=== PATIENT | female | born 1965 | race Caucasian/White ===

== ENCOUNTER 2019-09-05 14:14 | Emergency (ER) | payer MEDICARE, MEDICAID, SELFPAY ==
[2019-09-05 14:16] VITALS: BP 153/90; PULSE 99; RESP 18; TEMP 36; O2SAT 100
--- NOTE | 2019-09-05 16:10 | ED.GENADULT ---
HPI - General Adult General Chief complaint: Wound/Laceration Stated complaint: lac to left thumb Time Seen by Provider: 09/05/19 15:21 Source: patient Mode of arrival: ambulatory Limitations: no limitations History of Present Illness HPI narrative: Patient is a 54-year-old female who presents to emergency department for evaluation of puncture wound along the radial aspect of the proximal left thumb that occurred just prior to arrival using an X-Acto knife patient notes mild aching pain worse with activity and movement patient is unsure as to tetanus status patient is able to perform range of motion but with pain Related Data Home Medications Medication Instructions Recorded Confirmed duloxetine 60 mg capsule,delayed 60 mg PO DAILY 06/13/19 release fluticasone propionate 50 2 spray NASAL DAILY 06/13/19 mcg/actuation nasal spray,suspension ropinirole 4 mg tablet 4 mg PO DAILY tablet 06/13/19 tapentadol 50 mg tablet 50 mg PO ONCE PRN tablet 06/13/19 tramadol 50 mg tablet 50 mg PO Q4H PRN 06/13/19 rosuvastatin mg 07/15/19 aspirin [Aspir-81] 81 mg PO DAILY 09/05/19 ivabradine [Corlanor] 5 mg PO BID 09/05/19 tapentadol [Nucynta] 50 mg PO Q6H PRN 09/05/19 Allergies Allergy/AdvReac Type Severity Reaction Status Date / Time Cephalosporins Allergy Mild RASH Verified 08/18/19 09:00 clarithromycin Allergy Mild RASH Verified 08/18/19 09:00 imipramine Allergy Mild RASH Verified 08/18/19 09:00 meclizine Allergy Mild RASH Verified 08/18/19 09:00 oxycodone Allergy Mild SEVERE Verified 08/18/19 09:00 VOMITING Penicillins Allergy Mild HIVES Verified 08/18/19 09:00 codeine Allergy Unknown SEVERE Verified 08/18/19 09:00 VOMITING hydrocodone Allergy Unknown SEVERE Verified 08/18/19 09:00 VOMITING methylprednisolone Allergy Unknown DOSE PACK Verified 08/18/19 09:00 CAUSES THROAT SWELLING CEFUROXIME AXETIL Allergy Mild HIVES Uncoded 08/18/19 09:00 HYDROCODONE BIT Allergy Mild NAUSEA AND Uncoded 08/18/19 09:00 VOMITING OXYCODONE HCL Allergy Mild VOMITING Uncoded 08/18/19 09:00 PROPOXYPHENE NAPSYLATE Allergy Mild HIVES Uncoded 08/18/19 09:00 PROPRANOLOL HCL Allergy Mild HIVES Uncoded 08/18/19 09:00 DIPHENHYDRAMINE HCL Allergy Unknown LETHARGIC Uncoded 08/18/19 09:00 PROPOXYPHENE HCL Allergy Unknown HIVES Uncoded 08/18/19 09:00 Review of Systems Review of Systems: Narrative: CONSTITUTIONAL: Denies fever, chills, or sweats. SKIN: Positive for puncture wound MUSCULOSKELETAL: Positive for left thumb pain NEUROLOGIC: Denies numbness. [facility] Past Medical History Medical History (Updated 09/05/19 @ 16:14 by Ej Neri PA-C) Anemia, unspecified Bradycardia Surgical History Surgical History (Updated 09/05/19 @ 16:12 by Ej Neri PA-C) History of permanent cardiac pacemaker placement Social History Social History Smoking status: Never smoker Alcohol intake: never Gender identity (if verbalized by the patient): Female Exam Narrative: Exam Narrative: GENERAL: Well-appearing, well-nourished, and in no acute distress. HEAD: Normocephalic, atraumatic. EYES: PERRLA and EOMI. ENT: Nares clear, no rhinorrhea or epistaxis. Mucous membranes moist. EXTREMITIES: Patient with tenderness to palpation of the proximal aspect of the left thumb able to perform flexion and extension SKIN: Warm, dry, no rash. Puncture wound measuring less than 1/2 cm at the base of the left thumb no erythema NEURO: No focal deficits. Alert and oriented x3. Cranial nerves II through XII grossly intact. Neurovascularly intact PSYCH: Normal mood and affect. Course Course Emergency Course: Patient in the room in no distress aware of case findings treatment plan and diagnosis agreeing to follow-up as directed or to return if symptoms worsen or concerns Vital Signs Vital signs: Vital Signs Temperature 96.8 F L 09/05/19 14:16 Pulse Rate 99
[2019-09-05 16:40] VITALS: RESP 16
== END 2019-09-05 16:40 | disposition home or self-care (01) ==
PROVIDERS: Emergency Provider Family Medicine; PCP Family Medicine
DX: S61.032A Puncture wound without foreign body of left thumb without damage to nail, initial encounter (principal); Z79.82 Long term (current) use of aspirin; R00.1 Bradycardia, unspecified; Z95.0 Presence of cardiac pacemaker; Z86.2 Personal history of diseases of the blood and blood-forming organs and certain disorders involving the immune mechanism; W27.8XXA Contact with other nonpowered hand tool, initial encounter
CPT/HCPCS: 99282

== ENCOUNTER 2019-09-23 09:10 | Emergency (ER) | payer MEDICARE, MEDICAID, SELFPAY ==
--- NOTE | ~2019-09-23 | CT_ITS ---
EXAMINATION: CT brain wo con DATE: 09/23/2019 10:16 INDICATION: Head injury. Neck pain. TECHNIQUE: Computed tomography (CT) of the head was performed without intravenous contrast. The mA wa s adjusted according to patient size. Iterative reconstruction technique was employed. The dose-lengt h product was 605.33 mGy-cm. COMPARISON: Head CT 05/05/2012 FINDINGS: There are scattered areas of low attenuation in the cerebral white matter, which is within normal limits for the patient's age. There are chronic calcifications in left cerebellum, likely dyst rophic. There is no intracranial hemorrhage, acute infarction, or abnormal intracranial mass lesion. The ventricles are normal in size. The mastoid air cells are normal. The paranasal sinuses are clear. The orbits are normal. IMPRESSION: 1. Normal aging brain. Reviewed, dictated and finalized at location A. [employer] IMPRESSION: 1. Normal aging brain.
--- NOTE | ~2019-09-23 | CT_ITS ---
EXAMINATION: CT cervical spine wo con DATE: 09/23/2019 10:16 INDICATION: Head injury. Neck pain. TECHNIQUE: Computed tomography (CT) of the cervical spine was performed without intravenous contrast. Automated exposure control and iterative reconstruction technique were employed. The dose-length pro duct was 285.41 mGy-cm. COMPARISON: None FINDINGS: There is mild kyphosis of cervical spine. There is 3 degrees dextrocurvature of cervical sp ine. There is 2 mm retrolisthesis of C5 on C6. Vertebral body heights are normal. There is moderately decreased disc height at C3-C4, C5-C6, and C6-C7 and mildly decreased disc height at C4-C5. The foll owing disc levels are specifically discussed: C2-C3: There is mild bilateral uncovertebral joint osteoarthritis. There is mild bilateral facet join t osteoarthritis. There is no neural foraminal stenosis. There is no central canal stenosis. C3-C4: There is mild right and severe left uncovertebral joint osteoarthritis. There is mild left fac et joint osteoarthritis. There is mild right and moderate left neural foraminal stenosis. There is mi ld central canal stenosis. C4-C5: There is mild bilateral uncovertebral joint osteoarthritis. There is mild bilateral facet join t osteoarthritis. There is mild bilateral neural foraminal stenosis. There is mild central canal sten osis. C5-C6: There is severe bilateral uncovertebral joint osteoarthritis. There is mild bilateral facet himanshu int osteoarthritis. There is moderate bilateral neural foraminal stenosis. There is mild central shanthi l stenosis. C6-C7: There is severe bilateral uncovertebral joint osteoarthritis. There is mild right facet joint osteoarthritis. There is moderate bilateral neural foraminal stenosis. There is mild central canal st enosis. C7-T1: There is mild bilateral uncovertebral joint osteoarthritis. There is severe right and mild lef t facet joint osteoarthritis. There is no neural foraminal stenosis. There is no central canal stenos is. IMPRESSION: 1. No fracture. 2. Moderate cervical spondylosis. Reviewed, dictated and finalized at location A. D [employer]
[2019-09-23 09:29] VITALS: BP 141/95; PULSE 79; RESP 16; TEMP 36.7; O2SAT 98
--- NOTE | 2019-09-23 10:02 | ED.HEATRA ---
HPI - Head Injury General Chief complaint: Head Injury Stated complaint: Hit head last nigh Time Seen by Provider: 09/23/19 09:50 Source: patient Mode of arrival: ambulatory Limitations: no limitations History of Present Illness HPI Narrative: This is a 54-year-old female that presents the emergency department for head injury yesterday afternoon. Reports she was getting something out of her fridge and stood up really quickly and hit the back of her head on the freezer door. Reports since she has had a headache, nausea, and blurry vision. Also reports neck pain. Reports she was supposed to see her PCP today, but was told to come here to get checked out instead. Denies vomiting, numbness or weakness. Related Data Home Medications Medication Instructions Recorded Confirmed duloxetine 60 mg capsule,delayed 60 mg PO DAILY 06/13/19 release rosuvastatin 10 mg PO DAILY 07/15/19 aspirin [Aspir-81] 81 mg PO DAILY 09/05/19 ivabradine [Corlanor] 5 mg PO BID 09/05/19 tapentadol [Nucynta] 50 mg PO Q6H PRN 09/05/19 ropinirole 0.5 mg PO BID 09/23/19 Allergies Allergy/AdvReac Type Severity Reaction Status Date / Time Cephalosporins Allergy Mild RASH Verified 09/23/19 09:15 clarithromycin Allergy Mild RASH Verified 09/23/19 09:15 imipramine Allergy Mild RASH Verified 09/23/19 09:15 meclizine Allergy Mild RASH Verified 09/23/19 09:15 Penicillins Allergy Mild HIVES Verified 09/23/19 09:15 codeine Allergy Unknown SEVERE Verified 09/23/19 09:15 VOMITING methylprednisolone Allergy Unknown DOSE PACK Verified 09/23/19 09:15 CAUSES THROAT SWELLING CEFUROXIME AXETIL Allergy Mild HIVES Uncoded 09/23/19 09:15 HYDROCODONE BIT Allergy Mild NAUSEA AND Uncoded 09/23/19 09:15 VOMITING OXYCODONE HCL Allergy Mild VOMITING Uncoded 09/23/19 09:15 PROPOXYPHENE NAPSYLATE Allergy Mild HIVES Uncoded 09/23/19 09:15 PROPRANOLOL HCL Allergy Mild HIVES Uncoded 09/23/19 09:15 DIPHENHYDRAMINE HCL Allergy Unknown LETHARGIC Uncoded 09/23/19 09:15 PROPOXYPHENE HCL Allergy Unknown HIVES Uncoded 09/23/19 09:15 Review of Systems Review of Systems: Narrative: CONSTITUTIONAL: Denies fever EYES: Reports visual changes GASTROINTESTINAL: Denies vomiting MUSCULOSKELETAL: Reports joint pain, and myalgia. NEUROLOGIC: Reports headache. Denies numbness, or weakness. All systems reviewed & are unremarkable except as noted in HPI and below PMFSH Past Medical History Medical History (Updated 09/23/19 @ 10:38 by Jasmyn Persaud PA-C) Anemia, unspecified Bradycardia Essential (primary) hypertension Mixed hyperlipidemia Paroxysmal atrial fibrillation RSD (reflex sympathetic dystrophy) Surgical History Surgical History (Updated 09/05/19 @ 16:12 by Ej Neri PA-C) History of permanent cardiac pacemaker placement Social History Social History Smoking status: Never smoker Alcohol intake: never Gender identity (if verbalized by the patient): Female Exam Narrative: Exam Narrative: GENERAL: Well-appearing, well-nourished, and in no acute distress. HEAD: Normocephalic, atraumatic. EYES: PERRLA and EOMI. ENT: Nares clear, no rhinorrhea or epistaxis. Mucous membranes moist. Oropharynx without tonsillar hypertrophy exudate or other lesions. Bilateral TMs pearly mora non-bulging NECK: Supple. No adenopathy or masses. Tender palpation of midline cervical spine CHEST: Clear to auscultation. No respiratory distress. No wheezes rales or rhonchi HEART: Regular rate and rhythm. No murmur heard. Normal peripheral pulses. EXTREMITIES: Normal range of motion. No edema. SKIN: Warm, dry, no rash. NEURO: No focal deficits. Alert and oriented x3. Cranial nerves II through XII grossly intact. Normal finger-nose. Normal [id number] PSYCH: Normal mood and affect Course Vital Signs Vital signs: Vital Signs Temperature 98.1 F 09/23/19 09:29 Pulse Rate 79 09/23/19 09:29 Respiratory
[2019-09-23] MEDS: ACETAMINOPHEN 500 MG TABLET 1000 MG PO (10:06)
[2019-09-23 10:40] VITALS: BP 136/75; PULSE 72; RESP 16; O2SAT 99
== END 2019-09-23 10:40 | disposition home or self-care (01) ==
PROVIDERS: Emergency Provider Emergency Medicine; PCP Family Medicine
DX: S09.90XA Unspecified injury of head, initial encounter (principal); M54.2 Cervicalgia; I10 Essential (primary) hypertension; E78.2 Mixed hyperlipidemia; I48.0 Paroxysmal atrial fibrillation; G90.50 Complex regional pain syndrome I, unspecified; Z95.0 Presence of cardiac pacemaker; M47.812 Spondylosis without myelopathy or radiculopathy, cervical region; Z86.2 Personal history of diseases of the blood and blood-forming organs and certain disorders involving the immune mechanism; W22.8XXA Striking against or struck by other objects, initial encounter; Z79.82 Long term (current) use of aspirin
CPT/HCPCS: 70450; 72125; 99284; A9270

== ENCOUNTER 2020-01-19 13:42 | Outpatient (CLI) | payer MEDICARE, MEDICAID, SELFPAY ==
--- NOTE | ~2020-01-19 | XR_ITS ---
EXAMINATION: XR foot LT min 3V, XR toe 2nd LT min 2V DATE: 01/19/2020 14:30 INDICATION: Displaced fracture of the left second toe TECHNIQUE: 1. Dorsoplantar, two oblique and lateral views of the affected foot were obtained. 2. Dorsoplantar, lateral and oblique views of the left second toe were obtained. COMPARISON: None. FINDINGS: There is a sagittally oriented intra-articular fracture at the head of the left second proximal phala nx which extends from the central portion of the articular surface to the medial side of the distal d iaphysis. There is slight depression/proximal migration of the fragment resulting in a 1 mm step-off at the articular cortex. No other fractures identified. Otherwise normal alignment in the left foot. Mild polyarticular osteoarthritis at the first and second metatarsophalangeal joints as well as sever al of the tarsal metatarsal and interphalangeal joints. Small Achilles calcaneal spur. IMPRESSION: 1. Minimally displaced intra-articular fracture at the distal head of the left second proximal phalan x. Reviewed, dictated and finalized at location A. IMPRESSION: 1. Minimally displaced intra-articular fracture at the distal head of the left second proximal phalanx.
== END 2020-01-19 13:43 | disposition home or self-care (01) ==
PROVIDERS: PCP Family Medicine; Visit Provider Family Medicine
DX: S92.50 Unspecified fracture of lesser toe(s) (principal)
CPT/HCPCS: 73630; 73660

== ENCOUNTER 2020-02-06 08:22 | Outpatient (CLI) | payer MEDICARE, MEDICAID, SELFPAY ==
[2020-02-06 08:49] LABS: Hematocrit 38.5 % (37.0-47.0); Hemoglobin 13.6 g/dL (12.0-15.0); Mean Corpuscular HGB Conc 35.3 g/dl (32-36); Mean Corpuscular Hemoglobin 33.8 pg (26-34); Mean Corpuscular Volume 95.8 fl (80-100); Mean Platelet Volume 9.1 fl (7.4-10.4); Platelet Count Result 216 k/mm3 (150-375); Red Blood Count 4.02 M/mm3 (4.2-5.4); Red Cell Distribution Width 12.2 % (11.5-14.5); White Blood Count 4.7 K/mm3 (4.5-10.0)
[2020-02-06 09:01] LABS: Blood Urea Nitrogen 15 mg/dL (7-17); Calcium 9.8 mg/dL (8.4-10.2); Carbon Dioxide 30 mmol/L (22-30); Chloride 103 mmol/L (98-107); Estimated Glomerular Filt Rate > 60; Glucose 80 mg/dL (65-105); Potassium 3.9 mmol/L (3.4-5.0); Sodium 140 mmol/L (137-145)
[2020-02-06 09:40] LABS: Vitamin D 25 Hydroxy 27.1 ng/mL
== END 2020-02-06 08:23 | disposition home or self-care (01) ==
PROVIDERS: PCP Family Medicine; Visit Provider Nurse Practitioner Family
DX: D64.9 Anemia, unspecified (principal); R53.83 Other fatigue; E55.9 Vitamin D deficiency, unspecified
CPT/HCPCS: 36415; 80048; 82306; 82607; 84443; 85027

== ENCOUNTER 2020-04-02 21:07 | Observation (INO) | payer MEDICARE, MEDICAID, SELFPAY ==
--- NOTE | ~2020-04-02 | US_ITS ---
US right upper quadrant INDICATION: Chest pain PROCEDURE: Realtime right upper abdominal ultrasound. COMPARISON: No prior studies for comparison. FINDINGS: The pancreas is normal without focal mass or pancreatic ductal dilation. Liver echotexture is normal without focal mass or intrahepatic biliary dilatation. There is normal directional flow i n the portal vein. The gallbladder is normal without stones, gallbladder wall thickening or pericholecystic fluid. Comm on bile duct measures 4 mm. No sonographic Tinoco's sign. IMPRESSION: 1: Normal limited abdominal ultrasound. Reviewed, dictated and finalized at location B.
--- NOTE | ~2020-04-02 | XR_ITS ---
EXAMINATION: XR chest 2V DATE: 04/02/2020 22:03 INDICATION: Chest pain. TECHNIQUE: Frontal and lateral views of the chest were obtained. COMPARISON: Chest 2 views 07/05/2019 FINDINGS: The chest demonstrates clear lungs without pneumonia, pleural effusion, or pneumothorax. Th e heart size is normal. There is a left chest wall pacer with leads in the right atrium and right chica tricle. Electrodes overlie thoracic spine. There are changes of posterior fusion procedure in lumbar spine. There is a filter in the inferior vena cava. IMPRESSION: 1. No acute cardiopulmonary disease. Reviewed, dictated and finalized at location A.
[2020-04-02 21:07] VITALS: BP 131/99; PULSE 92; RESP 18; TEMP 37
--- NOTE | 2020-04-02 21:28 | ECG_ITS ---
Measurements Intervals [place] Rate: 93 P: 36 VA: 184 QRS: -77 QRSD: 141 T: 79 QT: 406 QTc: 507 Interpretive Statements ATRIAL SENSE- ELECTRONIC VENTRICULAR PACEMAKER BASELINE ARTIFACT- I, II, AVR NO FURTHER INTERPRETATION IS POSSIBLE ATYPICAL ECG Electronically Signed On 04-03-2020 7:00:02 CDT by Rangel Moe D.O.
[2020-04-02 21:48] LABS: Basophils Percent Auto 0.5 % (0.2-1.2); Eosinophils Absolute Auto 0.1 K/mm3 (0-0.3); Eosinophils Percent Auto 1.7 % (0-4.4); Hematocrit 34.5 % (37.0-47.0); Hemoglobin 12.4 g/dL (12.0-15.0); Immature Granulocyte Absolute 0.01 K/mm3 (0.00-0.031); Immature Granulocyte Percent A 0.2 % (0-0.5); Lymphocytes Absolute Auto 1.69 K/mm3 (0.9-3.2); Lymphocytes Percent Auto 41.6 % (18.3-44.2); Mean Corpuscular HGB Conc 35.9 g/dl (32-36); Mean Corpuscular Hemoglobin 34.2 pg (26-34); Monocytes Absolute Auto 0.3 K/mm3 (0.1-0.6); Monocytes Percent Auto 7.4 % (2.6-8.5); Neutrophils Percent Auto 48.6 % (45.5-73.1); Platelet Count Result 177 k/mm3 (150-375); Red Blood Count 3.63 M/mm3 (4.2-5.4); Red Cell Distribution Width 12.1 % (11.5-14.5); White Blood Count 4.1 K/mm3 (4.5-10.0)
--- NOTE | 2020-04-02 21:50 | ED.GENADULT ---
HPI - General Adult General Chief complaint: Chest Pain Stated complaint: cp Time Seen by Provider: 04/02/20 21:33 Source: patient History of Present Illness HPI narrative: Patient is a 54 y/o female complaining of chest pain starting this morning. She describes her pain as a pressure and it's located in midsternal area with some radiation to under left breast. She rates her pain as 8/10. She states that she was riding a bike when it initially occureed. She has no shortness of breath, nausea, vomiting or cough. She was given Nitro by EMS. She states that Nitro helped some with her chest pain, but also gave her a headache. Related Data Home Medications Medication Instructions Recorded Confirmed Corlanor 5 mg PO BID 04/02/20 04/02/20 Nucynta 50 mg PO Q6H 04/02/20 04/03/20 aspirin 81 mg PO DAILY 04/03/20 04/03/20 azelastine 2 spray NASAL BID 04/03/20 04/03/20 cetirizine [Zyrtec] 10 mg PO DAILY 04/03/20 04/03/20 diclofenac sodium [Voltaren] 4 g TOPICAL QID PRN 04/03/20 04/03/20 meloxicam 7.5 mg PO DAILY 04/03/20 04/03/20 ropinirole 0.5 mg PO TID 04/03/20 04/03/20 Allergies Allergy/AdvReac Type Severity Reaction Status Date / Time Cephalosporins Allergy Mild RASH Verified 03/29/20 13:03 clarithromycin Allergy Mild RASH Verified 03/29/20 13:03 imipramine Allergy Mild RASH Verified 03/29/20 13:03 meclizine Allergy Mild RASH Verified 03/29/20 13:03 Penicillins Allergy Mild HIVES Verified 03/29/20 13:03 codeine Allergy Unknown SEVERE Verified 03/29/20 13:03 VOMITING methylprednisolone Allergy Unknown DOSE PACK Verified 03/29/20 13:03 CAUSES THROAT SWELLING cefuroxime [From Ceftin] Allergy Hives Verified 04/03/20 01:38 hydromorphone [From Dilaudid] Allergy Hives Verified 04/03/20 01:39 oxycodone [From Percocet] Allergy Hives Verified 04/03/20 01:40 prochlorperazine Allergy Swelling Verified 04/03/20 01:38 [From Compazine] of Lip/Tongue/Throat propoxyphene [From Darvon] Allergy Hives Verified 04/03/20 01:39 propranolol [From Inderal LA] Allergy Rash Verified 04/03/20 01:39 acetaminophen AdvReac Hives Verified 04/03/20 01:39 [From Darvocet-N] diphenhydramine AdvReac Vomiting Verified 04/03/20 01:40 [From Benadryl] hydrocodone [From Vicodin] AdvReac Vomiting Verified 04/03/20 01:41 CEFUROXIME AXETIL Allergy Mild HIVES Uncoded 03/29/20 13:03 HYDROCODONE BIT Allergy Mild NAUSEA AND Uncoded 03/29/20 13:03 VOMITING OXYCODONE HCL Allergy Mild VOMITING Uncoded 03/29/20 13:03 PROPOXYPHENE NAPSYLATE Allergy Mild HIVES Uncoded 03/29/20 13:03 PROPRANOLOL HCL Allergy Mild HIVES Uncoded 03/29/20 13:03 DIPHENHYDRAMINE HCL Allergy Unknown LETHARGIC Uncoded 03/29/20 13:03 PROPOXYPHENE HCL Allergy Unknown HIVES Uncoded 03/29/20 13:03 Review of Systems Constitutional: Constitutional: Denies chills, Denies fever(s), Denies headache(s) and Denies weakness Eyes: Eyes: Denies blurry vision ENT: Denies headache(s) and Denies neck pain Cardiovascular: Cardiovascular: Reports chest pain and Denies dyspnea Respiratory: Respiratory: Denies cough and Denies dyspnea Gastrointestinal: Gastrointestinal: Denies abdominal pain, Denies diarrhea, Denies nausea and Denies vomiting Genitourinary: Genitourinary: Denies hematuria and Denies dysuria Musculoskeletal: Musculoskeletal: Denies back pain and Denies neck pain Neurologic: Denies headache(s) and Denies weakness PMFSH Past Medical History Medical History (Updated 04/03/20 @ 12:42 by Nelida Lorenzana MD) Anemia, unspecified Atopic dermatitis Bradycardia Dizziness Essential (primary) hypertension Fracture of second toe, left, closed Lipid disorder Mixed hyperlipidemia Paroxysmal atrial fibrillation Restless leg syndrome RSD (reflex sympathetic dystrophy) Surgical History Surgical History (Updated 04/03/20 @ 01:20 by Naren Monique MD) History of arthroscopic knee surgery History of back surgery History of permanent cardiac pacemaker placemen
[2020-04-02 21:58] LABS: Prothrombin Time 12.9 Seconds (11.1-14.7)
[2020-04-02 21:59] LABS: Partial Thromboplastin Time 38.3 SECONDS (22.3-36.8)
[2020-04-02 22:03] LABS: Anion Gap 6 mmol/L (8-16); Blood Urea Nitrogen 21 mg/dL (7-17); Calcium 9.7 mg/dL (8.4-10.2); Carbon Dioxide 26 mmol/L (22-30); Chloride 107 mmol/L (98-107); Estimated CRCL calculation 63 ml/min; Estimated Glomerular Filt Rate > 60; Glucose 105 mg/dL (65-105); Potassium 3.7 mmol/L (3.4-5.0); Sodium 139 mmol/L (137-145)
[2020-04-02 22:14] LABS: Troponin I < 0.012 ng/mL (0.000-0.034)
[2020-04-02 22:59] VITALS: BP 132/78; PULSE 82; RESP 20; O2SAT 99
[2020-04-02 23:55] VITALS: BP 148/82; PULSE 77; RESP 16; O2SAT 99
[2020-04-03] VITALS (8 sets, daily range): BP systolic 101–165; BP diastolic 67–94; PULSE 70–82; RESP 14–20; TEMP 36.1–36.6; O2SAT 97–100; BMI 28.0
[2020-04-03 00:57] LABS: Troponin I < 0.012 ng/mL (0.000-0.034)
--- NOTE | 2020-04-03 01:13 | ECG_ITS ---
Measurements Intervals [place] Rate: 72 P: 17 PA: 180 QRS: -76 QRSD: 167 T: 70 QT: 480 QTc: 528 Interpretive Statements ATRIAL SENSE- ELECTRONIC VENTRICULAR PACEMAKER NO FURTHER INTERPRETATION IS POSSIBLE ATYPICAL ECG Electronically Signed On 04-03-2020 7:01:16 CDT by Rangel Moe D.O.
--- NOTE | 2020-04-03 01:15 | PM.IMHP ---
H&P: HPI History of Present Illness Date/Time: 04/03/20 01:15 Chief complaint: chest pain Narrative: This is a pleasant 54-year-old female with known past medical history of RSD, SVT status post ablation who presented to the hospital [facility] with a history of severe midsternal chest pain that started yesterday morning while she was riding her bike. The patient described her chest pain as crushing and occurred while she was riding her bike yesterday morning. Her chest pain seemed to radiate underneath her left breast. Her pain improved with rest. Associated symptoms included mild shortness of breath. When the patient got home she started to feel somewhat better and decided to lay down and try to sleep. Throughout the day she continued to have ongoing chest pain that seemed to slowly worsen. She finally ended up calling EMS. She was treated with nitroglycerin which did improve her chest pain. The patient is known to have recently been diagnosed with diverticulitis by her primary care doctor approximately 3 days ago. She is on antibiotics for diverticulitis. On my encounter with the patient [facility] she is complaining as well of mild right upper quadrant discomfort. Patient denies any nausea or vomiting, fevers, chills, dysuria, lower extremity swelling, or rectal bleeding. She is normally seen at [facility] by her silver cleaner. ER provider attempted to transfer her to [facility] but they did not have a bed available [facility]. The patient has no previous history of coronary artery disease and denies that she has ever had any type of myocardial infarction. Cardiology, Dr. Alejandre was consulted by ER provider. Review of Systems Review of Systems: All systems reviewed & are unremarkable except as noted in HPI and below PMFSH Past Medical History Medical History (Updated 04/03/20 @ 05:10 by Naren Monique MD) Anemia, unspecified Atopic dermatitis Bradycardia Dizziness Essential (primary) hypertension Fracture of second toe, left, closed Lipid disorder Mixed hyperlipidemia Paroxysmal atrial fibrillation Restless leg syndrome RSD (reflex sympathetic dystrophy) Surgical History Surgical History (Updated 04/03/20 @ 01:20 by Naren Monique MD) History of arthroscopic knee surgery History of back surgery History of permanent cardiac pacemaker placement Family History Family History Grandparent Family history of blood dyscrasia Family history of Alzheimer's disease Family history of malignant neoplasm of cervix Mother Family history of Alzheimer's disease Father Family history of lung cancer Other Diabetes mellitus Family history of allergic disorder Family history of kidney disease Family history of malignant neoplasm of thyroid Social History Social History Smoking status: Never smoker Second hand tobacco smoke exposure: No Alcohol intake: never Substance use: never Substance use type: does not use Gender identity (if verbalized by the patient): Female Spiritual care concerns: No Meds Home Medications and Allergies Home Medications Medication Instructions Recorded Confirmed Type cyclobenzaprine 10 mg tablet 10 mg PO BID #60 tablet 11/24/19 04/03/20 Rx rosuvastatin 20 mg tablet 20 mg PO DAILY #90 tablet 03/09/20 04/03/20 Rx promethazine 25 mg rectal 25 mg RECTAL Q6H PRN #12 each 03/19/20 04/03/20 Rx suppository duloxetine [Cymbalta] 60 mg PO DAILY 04/02/20 04/02/20 History ivabradine [Corlanor] 5 mg PO BID 04/02/20 04/02/20 History tapentadol [Nucynta] 50 mg PO Q6H 04/02/20 04/03/20 History aspirin 81 mg PO DAILY 04/03/20 04/03/20 History azelastine 2 spray NASAL BID 04/03/20 04/03/20 History cetirizine [Zyrtec] 10 mg PO DAILY 04/03/20 04/03/20 History diclofenac sodium [Voltaren] 4 g TOPICAL QID PRN 04/03/20 04/03/20 History meloxicam 7.5 mg PO DAILY
--- NOTE | 2020-04-03 01:26 | ADMGEN ---
This patient, Naye Hart, was admitted to IMU Room 204-01. Patient/family oriented to hospital policies and general routines including ID bracelet, bed and alarms, visiting hours, pain management, procedures, bathroom and other care routines, personal items, smoking policy, room service/diet, and visiting hours. Valuables list has been completed. Information on how to activate the Rapid Response Team has been discussed. Patient/Family are encouraged to report perceived risks to care and to ask questions if they do not understand what they are told or what they should do.
[2020-04-03 01:52] LABS: Magnesium 2.3 mg/dL (1.6-2.3)
[2020-04-03 01:54] LABS: Alanine Aminotransferase 17 U/L (4-35); Alkaline Phosphatase 76 U/L (38-126); Aspartate Amino Transferase 31 U/L (14-36); Bilirubin Indirect 0.3 mg/dL (0-1.1); Bilirubin,Total 0.2 mg/dL (0.2-1.3); Lipase 154 U/L (23-300)
[2020-04-03] MEDS: ONDANSETRON INJ 4 MG/2 ML VIAL IV PUSH (02:01)
[2020-04-03 04:19] LABS: Basophils Percent Auto 0.8 % (0.2-1.2); Eosinophils Absolute Auto 0.1 K/mm3 (0-0.3); Eosinophils Percent Auto 1.8 % (0-4.4); Hematocrit 33.2 % (37.0-47.0); Hemoglobin 11.7 g/dL (12.0-15.0); Lymphocytes Absolute Auto 1.78 K/mm3 (0.9-3.2); Mean Corpuscular HGB Conc 35.2 g/dl (32-36); Mean Corpuscular Volume 96.5 fl (80-100); Mean Platelet Volume 8.9 fl (7.4-10.4); Monocytes Absolute Auto 0.3 K/mm3 (0.1-0.6); Neutrophils Absolute Auto 1.7 K/mm3 (1.3-6.7); Neutrophils Percent Auto 43.4 % (45.5-73.1); Platelet Count Result 156 k/mm3 (150-375); Red Blood Count 3.44 M/mm3 (4.2-5.4); Red Cell Distribution Width 12.2 % (11.5-14.5); White Blood Count 3.9 K/mm3 (4.5-10.0)
[2020-04-03 04:30] LABS: Anion Gap 4 mmol/L (8-16); Blood Urea Nitrogen 21 mg/dL (7-17); Carbon Dioxide 29 mmol/L (22-30); Chloride 107 mmol/L (98-107); Estimated CRCL calculation 81 ml/min; Estimated Glomerular Filt Rate > 60; Glucose 99 mg/dL (65-105); Sodium 140 mmol/L (137-145)
[2020-04-03 04:42] LABS: Troponin I < 0.012 ng/mL (0.000-0.034)
--- NOTE | 2020-04-03 08:42 | PM.CNCAR ---
Assessment and Plan Assessment and plan (1) Chest pain: Qualifiers: Chest pain type: unspecified Qualified Code(s): R07.9 - Chest pain, unspecified Code(s): R07.9 - Chest pain, unspecified Status: Acute Assessment and Plan: Although exertional but it appears she has mostly epigastric and abdominal pain Her EKG is based hence can't assess for ischemia on that but her trop has been negative X3 She had stress test about 2 years ago with her primary stock unloader which was negative per patient report I will check 2D echo to rule out regional wall motion but otherwise I would recommend abdominal imaging to rule out other non cardiac etiology of her pain (2) SVT (supraventricular tachycardia): Code(s): I47.1 - Supraventricular tachycardia Status: Acute Assessment and Plan: s/p AV madai ablation and permanent pacemaker Will get Pacemaker interrogation ([employer]) History of Present Illness History of Present Illness Consult date/time: 04/03/20 08:42 54 y/o female with long standing history of SVT, paroxysmal A fib, inappropriate sinus tachycardia who failed medical treatment and eventually underwent AV madai ablation earlier this year with permanent pacemaker insertion prior to that. She has no history of CAD neither risk factors of that with no HTN, DM or tobacco abuse. She was previously on Metoprolol and Coumadin both were stopped. her only medications now is ASA and ivabradine that is also being weaned off. She presents with lower mid chest and epigastric pain that radiates under left breast. She reports palpitations which she has been feeling for a month. She was riding a bike yesterday when she felt the pain. She make it home and tried to relax but pain would not go away so she called 911. She received nitro without relief till the 3rd nitro with some improvement in the pain. She also has been reporting upper right quadrant pain and nausea for which she was placed on abx by her PCP 3 days ago for presumed diverticulitis however she had no abdominal imaging. She describes the pain as being punched in the chest. She has been having nausea for sometime. EKG showed V paced rhythm Trop negative X3. Labs otherwise unremarkable Reason For Visit: chest pain Review of Systems Review of Systems: All systems reviewed & are unremarkable except as noted in HPI and below Constitutional: Constitutional: Denies fatigue and Denies headache(s) Eyes: Eyes: Denies blurry vision ENT: Reports Normal hearing present and Denies headache(s) Cardiovascular: Cardiovascular: Denies chest pain, Denies diaphoresis, Denies pedal edema, Denies leg edema, Denies lightheadedness, Denies palpitations and Denies dyspnea Respiratory: Respiratory: Denies cough and Denies dyspnea Gastrointestinal: Gastrointestinal: Denies abdominal pain Musculoskeletal: Musculoskeletal: Denies back pain Neurologic: Reports Normal hearing present and Denies headache(s) Psychiatric: Psychiatric: Denies anxiety Endocrine: Endocrine: Denies fatigue and Denies palpitations [facility] Past Medical History Medical History (Updated 04/03/20 @ 05:10 by Naren Monique MD) Anemia, unspecified Atopic dermatitis Bradycardia Dizziness Essential (primary) hypertension Fracture of second toe, left, closed Lipid disorder Mixed hyperlipidemia Paroxysmal atrial fibrillation Restless leg syndrome RSD (reflex sympathetic dystrophy) Surgical History Surgical History (Updated 04/03/20 @ 01:20 by Naren Monique MD) History of arthroscopic knee surgery History of back surgery History of permanent cardiac pacemaker placement Family History Family History Grandparent Family history of blood dyscrasia Family history of Alzheimer's disease Family history of malignant neoplasm of cervix Mother Family history of Alzheimer's disease Father Family history of lung cancer Other
--- NOTE | 2020-04-03 09:16 | ECHO_ITS ---
Patient Info Name: Naye Hart Age: 54 years : 1965 Gender: Female Ht: 69 in Wt: 189 lbs BSA: 2.06 m2 HR: 79 bpm BP: 131 / 82 mmHg Technical Quality: Good Exam Date: 04/03/2020 9:50 AM Exam Location: [facility] Pulmonary Patient Status: Inpatient Admit Date: 04/03/2020 Staff Ordering Physician: Yonathan Faith MD Digital Analytics Manager: You Tinoco, JOSE, RT Attending Provider: Naren Monique MD Exam Type: CA echo doppler color flow Study Info Complete two-dimensional, color flow and Doppler transthoracic echocardiogram is performed. Summary 1. Complete two-dimensional, color flow and Doppler transthoracic echocardiogram is performed. 2. Left ventricular systolic function is normal, estimated at 55-60%. 3. Right ventricular chamber dimension is normal. 4. Pacemaker wire noted. 5. Left atrial chamber dimension is normal. 6. Right atrial chamber dimension is normal. 7. There is no aortic valve stenosis. 8. There is mild mitral valve regurgitation. 9. There is no tricuspid valve regurgitation. 10. Unable to assess pulmonary artery systolic pressure due to poor TR signal. 11. There is no pericardial effusion. Left Ventricle Left ventricular chamber dimension is normal. Left ventricular systolic function is normal, estimated at 55-60%. There is no increased left ventricular wall thickness. The left ventricular diastolic function is normal. Right Ventricle Right ventricular chamber dimension is normal. Right ventricular systolic function is normal. Pacemaker wire noted. Left Atria Left atrial chamber dimension is normal. Right Atria Right atrial chamber dimension is normal. Aortic Valve The aortic valve is trileaflet. There is no aortic valve sclerosis. There is no aortic valve stenosis. There is no aortic valve regurgitation. Pulmonic Valve The pulmonic valve is normal. There is no pulmonic valve stenosis. There is no pulmonic regurgitation. Mitral Valve The mitral valve has normal leaflets. There is no mitral valve stenosis. There is mild mitral valve regurgitation. Tricuspid Valve The tricuspid valve leaflets are normal. There is no tricuspid valve regurgitation. Unable to assess pulmonary artery systolic pressure due to poor TR signal. Pericardium/Pleural The pericardium appears normal. There is no pericardial effusion. Inferior Vena Cava Normal inferior vena cava with <50% collapse upon inspiration. Aorta The aortic root size at the sinus of Valsalva is normal. The prox ascending aorta size is normal. Left Ventricular Outflow Tract Name Value Normal LVOT 2D LVOT Diameter 2.1 cm LVOT Doppler LVOT Peak Velocity 86 cm/s LVOT Peak Gradient 3 mmHg LVOT Mean Gradient 2 mmHg LVOT VTI 16 cm LVOT VTI/AV VTI Ratio 0.7 LVOT Stroke Volume 56 ml LVOT CO 4.3 l/min LVOT CI 2.1 l/min/m2 Mitral Valve
[2020-04-03] MEDS: ROSUVASTATIN 10 MG TABLET 20 MG PO (09:18)
[2020-04-03] MEDS: LORATADINE 10 MG TABLET PO (09:18)
[2020-04-03] MEDS: rOPINIRole HCL 0.5 MG TABLET PO (09:18)
[2020-04-03] MEDS: ASPIRIN 81 MG ENTERIC TABLET PO (09:19)
[2020-04-03] MEDS: AZELASTINE HCL NASAL 0.1% 137 MCG/SPR 30 ML BTL 2 SPRAY NASAL (09:19)
[2020-04-03] MEDS: CYCLOBENZAPRINE HCL 10 MG TABLET PO (09:19)
[2020-04-03] MEDS: DULoxetine HCL 60 MG CAPSULE.DR PO (09:19)
--- NOTE | 2020-04-03 11:32 | PM.DS ---
DS: Admitting Diagnosis Admitting Diagnosis Admitting Diagnosis: chest pain DS: Discharge Diagnosis Discharge Diagnosis (1) Chest pain: Qualifiers: Chest pain type: unspecified Qualified Code(s): R07.9 - Chest pain, unspecified Code(s): R07.9 - Chest pain, unspecified Status: Acute Assessment and Plan: rule out acute coronary syndrome. Admit for observation to IMU, telemetry, trend troponin, check EKG now. check lipase and liver enzymes which have not been done yet to rule out possible gallbladder disease and or pancreatitis. nitroglycerin for any acute chest pain. Cardiology has been consulted by ER provider. (2) Diverticulitis: Code(s): K57.92 - Diverticulitis of intestine, part unspecified, without perforation or abscess without bleeding Status: Acute Assessment and Plan: continue home antibiotic therapy to complete course. (3) RUQ abdominal pain: Code(s): R10.11 - Right upper quadrant pain Status: Acute Assessment and Plan: Diverticulitis vs. Gallbladder disease? Check RUQ abd U/S in am. Check LFTs now. (4) Restless leg syndrome: Code(s): G25.81 - Restless legs syndrome Status: Chronic Assessment and Plan: continue ropinirole (5) Lipid disorder: Code(s): E78.9 - Disorder of lipoprotein metabolism, unspecified Status: Chronic Assessment and Plan: continue Crestor. (6) RSD (reflex sympathetic dystrophy): Code(s): G90.50 - Complex regional pain syndrome I, unspecified Status: Chronic Assessment and Plan: Continue home meds. (7) Diastolic dysfunction: Code(s): I51.89 - Other ill-defined heart diseases Status: Chronic Assessment and Plan: compensated. Monitor fluid status. Continue home CHF medications DS: Summary Hospital Course Reason for hospitalization: Chief complaint: chest pain Narrative: This is a pleasant 54-year-old female with known past medical history of RSD, SVT status post ablation who presented to the hospital [facility] with a history of severe midsternal chest pain that started yesterday morning while she was riding her bike. The patient described her chest pain as crushing and occurred while she was riding her bike yesterday morning. Her chest pain seemed to radiate underneath her left breast. Her pain improved with rest. Associated symptoms included mild shortness of breath. When the patient got home she started to feel somewhat better and decided to lay down and try to sleep. Throughout the day she continued to have ongoing chest pain that seemed to slowly worsen. She finally ended up calling EMS. She was treated with nitroglycerin which did improve her chest pain. The patient is known to have recently been diagnosed with diverticulitis by her primary care doctor approximately 3 days ago. She is on antibiotics for diverticulitis. On my encounter with the patient [facility] she is complaining as well of mild right upper quadrant discomfort. Patient denies any nausea or vomiting, fevers, chills, dysuria, lower extremity swelling, or rectal bleeding. 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 ER provider attempted to transfer her to [facility] but they did not have a bed available [facility]. The patient has no previous history of coronary artery disease and denies that she has ever had any type of myocardial infarction. Cardiology, Dr. Alejandre was consulted by ER provider. Hospital Course: patient is 3 sets of cardiac enzymes are negative there were no acute changes on EKG, patient's cardiac echo essentially normal as well as right upper quadrant ultrasound, patient's symptoms have resolved patient is clinically stable, patient is seen by director of early childhood education will have a stress test as outpatient will going discharge the patient today Status at Discharge Functional status at discharge: independent ambulation Ov
== END 2020-04-03 12:37 | disposition home or self-care (01) ==
LOC: ANHED 21:51 → ANHIMU 04-03 00:23
PROVIDERS: Emergency Medicine; Admitting Provider Family Medicine; Emergency Provider Emergency Medicine; PCP Family Medicine; Visit Provider Family Medicine
DX: R07.2 Precordial pain (principal); I48.0 Paroxysmal atrial fibrillation; I47.1 Supraventricular tachycardia; K57.92 Diverticulitis of intestine, part unspecified, without perforation or abscess without bleeding; Z95.0 Presence of cardiac pacemaker; R00.1 Bradycardia, unspecified; I10 Essential (primary) hypertension; E78.2 Mixed hyperlipidemia; Z79.01 Long term (current) use of anticoagulants; G90.50 Complex regional pain syndrome I, unspecified; G25.81 Restless legs syndrome
CPT/HCPCS: 36415; 71046; 76705; 80048; 82247; 83690; 83735; 84075; 84450; 84460; 84484; 85025; 85610; 85730; 93005; 93306; 96374; 99285; A9270; G0378; J2405

== ENCOUNTER 2020-06-11 09:16 | Emergency (ER) | payer MEDICARE, MEDICAID, SELFPAY ==
--- NOTE | ~2020-06-11 | XR_ITS ---
XR toe 1st RT min 2V 06/11/2020 10:06 Indication: Possible foreign body first toe Procedure: 2 views right first toe Comparison: No prior studies for comparison. Findings: No radiopaque foreign bodies identified. No fracture or traumatic malalignment. No signific ant joint space narrowing. No significant soft tissue abnormality. Impression: 1: No radiopaque foreign bodies identified. Reviewed, dictated and finalized at location A. ICAL PROCESS ENGINEER Impression: 1: No radiopaque foreign bodies identified.
[2020-06-11 09:40] VITALS: BP 118/78; PULSE 78; RESP 16; TEMP 36.7; O2SAT 99
--- NOTE | 2020-06-11 09:44 | ED.GENADULT ---
HPI - General Adult General Chief complaint: Extremity Injury, Lower Stated complaint: right 1st digit toe swelling/pain Time Seen by Provider: 06/11/20 09:44 Source: patient Mode of arrival: ambulatory Limitations: no limitations History of Present Illness HPI narrative: 54-year-old female patient presents to the [facility] with complaints of a splinter to the right great toe. Patient states that she dropped a toothpick yesterday and states that she stepped on it and that it went through the soft into the great toe. Patient states that she did pull it out but thinks that a small portion of the toothpick is still inside the toe. Patient denies any history of diabetes. Related Data Home Medications Medication Instructions Recorded Confirmed Corlanor 5 mg PO BID 04/02/20 06/11/20 aspirin 81 mg PO DAILY 04/03/20 06/11/20 azelastine 2 spray NASAL BID 04/03/20 06/11/20 cetirizine [Zyrtec] 10 mg PO DAILY 04/03/20 06/11/20 metoprolol tartrate 25 mg tablet 12.5 mg PO BID tablet 05/24/20 06/11/20 Allergies Allergy/AdvReac Type Severity Reaction Status Date / Time Cephalosporins Allergy Mild RASH Verified 06/11/20 10:00 clarithromycin Allergy Mild RASH Verified 06/11/20 10:00 imipramine Allergy Mild RASH Verified 06/11/20 10:00 meclizine Allergy Mild RASH Verified 06/11/20 10:00 Penicillins Allergy Mild HIVES Verified 06/11/20 10:00 codeine Allergy Unknown SEVERE Verified 06/11/20 10:00 VOMITING methylprednisolone Allergy Unknown DOSE PACK Verified 06/11/20 10:00 CAUSES THROAT SWELLING cefuroxime [From Ceftin] Allergy Hives Verified 06/11/20 10:00 hydromorphone [From Dilaudid] Allergy Hives Verified 06/11/20 10:00 oxycodone [From Percocet] Allergy Hives Verified 06/11/20 10:00 prochlorperazine Allergy Swelling Verified 06/11/20 10:00 [From Compazine] of Lip/Tongue/Throat propoxyphene [From Darvon] Allergy Hives Verified 06/11/20 10:00 propranolol [From Inderal LA] Allergy Rash Verified 06/11/20 10:00 acetaminophen AdvReac Hives Verified 06/11/20 10:00 [From Darvocet-N] diphenhydramine AdvReac Vomiting Verified 06/11/20 10:00 [From Benadryl] hydrocodone [From Vicodin] AdvReac Vomiting Verified 06/11/20 10:00 CEFUROXIME AXETIL Allergy Mild HIVES Uncoded 06/11/20 10:00 HYDROCODONE BIT Allergy Mild NAUSEA AND Uncoded 06/11/20 10:00 VOMITING OXYCODONE HCL Allergy Mild VOMITING Uncoded 06/11/20 10:00 PROPOXYPHENE NAPSYLATE Allergy Mild HIVES Uncoded 06/11/20 10:00 PROPRANOLOL HCL Allergy Mild HIVES Uncoded 06/11/20 10:00 DIPHENHYDRAMINE HCL Allergy Unknown LETHARGIC Uncoded 06/11/20 10:00 PROPOXYPHENE HCL Allergy Unknown HIVES Uncoded 06/11/20 10:00 Review of Systems Review of Systems: Narrative: CONSTITUTIONAL: Denies fever, chills, or sweats. EYES: Denies visual changes, redness, or discharge. ENT: Denies rhinorrhea, congestion, sore throat, or otalgia. CARDIOVASCULAR: Denies chest pain, palpitations, or edema. RESPIRATORY: Denies cough or dyspnea. GASTROINTESTINAL: Denies abdominal pain, nausea, vomiting, or diarrhea. GENITOURINARY: Denies dysuria or hematuria. SKIN: Denies rash or itching. Positive puncture wound to right great toe with possible foreign body MUSCULOSKELETAL: Denies back pain, joint pain, or myalgia. NEUROLOGIC: Denies headache, numbness, or weakness. PSYCHIATRIC: Denies anxiety or depression. [facility] Past Medical History Medical History Anemia, unspecified Atopic dermatitis BMI 26.0-26.9,adult BMI 27.0-27.9,adult Bradycardia Dizziness Essential (primary) hypertension Fracture of second toe, left, closed Groin hematoma Groin pain Lipid disorder Mixed hyperlipidemia Paroxysmal atrial fibrillation Restless leg syndrome RSD (reflex sympathetic dystrophy) Surgical History Surgical History History of arthroscopic knee surgery History of back surger
== END 2020-06-11 10:22 | disposition home or self-care (01) ==
PROVIDERS: Emergency Provider Nurse Practitioner Family; PCP Family Medicine
DX: S91.131A Puncture wound without foreign body of right great toe without damage to nail, initial encounter (principal); W45.8XXA Other foreign body or object entering through skin, initial encounter; I10 Essential (primary) hypertension; E78.2 Mixed hyperlipidemia; I48.0 Paroxysmal atrial fibrillation; G25.81 Restless legs syndrome; G90.50 Complex regional pain syndrome I, unspecified; Z95.0 Presence of cardiac pacemaker
CPT/HCPCS: 73660; 99213; G0463

== ENCOUNTER 2020-06-11 10:40 | Emergency (ER) | payer MEDICARE, MEDICAID, SELFPAY ==
[2020-06-11 10:50] VITALS: BP 127/72; PULSE 73; RESP 20; TEMP 35.6; O2SAT 99
--- NOTE | 2020-06-11 12:19 | ED.GENADULT ---
HPI - General Adult General Chief complaint: Extremity Injury, Lower <TERRY Smith Last Filed: 06/11/20 12:27> Stated complaint: Tooth Pick in Foot <TERRY Smith Last Filed: 06/11/20 12:27> Time Seen by Provider: 06/11/20 10:46 <TERRY Smith Last Filed: 06/11/20 12:27> Source: patient <TERRY Smith Last Filed: 06/11/20 12:27> Mode of arrival: ambulatory <TERRY Smith Last Filed: 06/11/20 12:27> Limitations: no limitations <TERRY Smith Last Filed: 06/11/20 12:27> History of Present Illness HPI narrative: Patient is a 54-year-old female who presents with toothpick foreign body to the right great toe patient stepped on it last night patient went to urgent care was evaluated prescribed antibiotics after negative radiographs and evaluation and presents noting that she has concerned that the splinter is still present patient notes mild aching pain worse with touch patient believes her immunizations to be up-to-date <TERRY Smith Last Filed: 06/11/20 12:27> Related Data Home medications: Home Medications Medication Instructions Recorded Confirmed Corlanor 5 mg PO BID 04/02/20 06/11/20 aspirin 81 mg PO DAILY 04/03/20 06/11/20 azelastine 2 spray NASAL BID 04/03/20 06/11/20 cetirizine [Zyrtec] 10 mg PO DAILY 04/03/20 06/11/20 metoprolol tartrate 25 mg tablet 12.5 mg PO BID tablet 05/24/20 06/11/20 <TERRY Smith Last Filed: 06/11/20 12:27> Allergies/adverse reactions: Allergies Allergy/AdvReac Type Severity Reaction Status Date / Time Cephalosporins Allergy Mild RASH Verified 06/11/20 10:00 clarithromycin Allergy Mild RASH Verified 06/11/20 10:00 imipramine Allergy Mild RASH Verified 06/11/20 10:00 meclizine Allergy Mild RASH Verified 06/11/20 10:00 Penicillins Allergy Mild HIVES Verified 06/11/20 10:00 codeine Allergy Unknown SEVERE Verified 06/11/20 10:00 VOMITING methylprednisolone Allergy Unknown DOSE PACK Verified 06/11/20 10:00 CAUSES THROAT SWELLING cefuroxime [From Ceftin] Allergy Hives Verified 06/11/20 10:00 hydromorphone [From Dilaudid] Allergy Hives Verified 06/11/20 10:00 oxycodone [From Percocet] Allergy Hives Verified 06/11/20 10:00 prochlorperazine Allergy Swelling Verified 06/11/20 10:00 [From Compazine] of Lip/Tongue/Throat propoxyphene [From Darvon] Allergy Hives Verified 06/11/20 10:00 propranolol [From Inderal LA] Allergy Rash Verified 06/11/20 10:00 acetaminophen AdvReac Hives Verified 06/11/20 10:00 [From Darvocet-N] diphenhydramine AdvReac Vomiting Verified 06/11/20 10:00 [From Benadryl] hydrocodone [From Vicodin] AdvReac Vomiting Verified 06/11/20 10:00 CEFUROXIME AXETIL Allergy Mild HIVES Uncoded 06/11/20 10:00 HYDROCODONE BIT Allergy Mild NAUSEA AND Uncoded 06/11/20 10:00 VOMITING OXYCODONE HCL Allergy Mild VOMITING Uncoded 06/11/20 10:00 PROPOXYPHENE NAPSYLATE Allergy Mild HIVES Uncoded 06/11/20 10:00 PROPRANOLOL HCL Allergy Mild HIVES Uncoded 06/11/20 10:00 DIPHENHYDRAMINE HCL Allergy Unknown LETHARGIC Uncoded 06/11/20 10:00 PROPOXYPHENE HCL Allergy Unknown HIVES Uncoded 06/11/20 10:00 <Ej Neri PA-C - Last Filed: 06/11/20 12:27> Review of Systems Review of Systems: All systems reviewed & are unremarkable except as noted in HPI and below <Ej Neri PA-C - Last Filed: 06/11/20 12:27> [facility] Past Medical History Medical History: Medical History Anemia, unspecified Atopic dermatitis BMI 26.0-26.9,adult BMI 27.0-27.9,adult Bradycardia Dizziness Essential (primary) hypertension Fracture of second toe, left, closed Groin hematoma Groin pain Lipid disorder Mixed hyperlipidemia Paroxysmal atrial fibrillation Restless leg syndrome RSD (reflex sympathetic dystrophy) <Ej Neri PA-C - Last Filed: 06/11/20 12:27
[2020-06-11 12:39] VITALS: BP 122/68; PULSE 78; RESP 18; O2SAT 99
== END 2020-06-11 12:40 | disposition home or self-care (01) ==
PROVIDERS: Emergency Provider Emergency Medicine; PCP Family Medicine
DX: S90.451A Superficial foreign body, right great toe, initial encounter (principal); Z86.2 Personal history of diseases of the blood and blood-forming organs and certain disorders involving the immune mechanism; I10 Essential (primary) hypertension; E78.2 Mixed hyperlipidemia; I48.0 Paroxysmal atrial fibrillation; G25.81 Restless legs syndrome; G90.50 Complex regional pain syndrome I, unspecified; Z79.82 Long term (current) use of aspirin; W45.8XXA Other foreign body or object entering through skin, initial encounter
CPT/HCPCS: 28190; 73660; 99282

== ENCOUNTER 2020-07-06 16:00 | Outpatient (CLI) | payer MEDICARE, MEDICAID, SELFPAY ==
--- NOTE | ~2020-07-06 | XR_ITS ---
XR foot RT 2V, XR foot LT 2V 07/06/2020 16:59 (accession [id number]), 07/06/2020 17:00 (accession [id number]) INDICATION: Polyarthralgias PROCEDURE: 2 views each foot COMPARISON: No prior studies for comparison. FINDINGS: Fracture, dislocation or subluxation is not identified. No significant joint space narrowin g. No erosive changes. No significant soft tissue abnormality. The soft tissues appear within normal limits. No foreign bodies are identified. IMPRESSION: 1: NO SIGNIFICANT BONE OR JOINT ABNORMALITY IDENTIFIED. Reviewed, dictated and finalized at location A. ARY OPERATOR IMPRESSION: 1: NO SIGNIFICANT BONE OR JOINT ABNORMALITY IDENTIFIED.
--- NOTE | ~2020-07-06 | XR_ITS ---
EXAMINATION: XR hip BI wo pelvis EXAM DATE: 07/06/2020 17:00 INDICATION: Polyarthralgia, bilateral hip pain. TECHNIQUE: Each hip imaged independently (separate right and also left hip) crosstable lateral and ' frog-leg' and frontal projections for interpretation. Comparison is made to prior examination from . FINDINGS: No radiographic evidence of hip avascular necrosis. There is mild symmetric bilateral hip primary osteoarthritis. There are no acute fractures or dislocations identified. There is no subcuta neous gas. The soft tissue is unremarkable. Lumbar fusion hardware. IMPRESSION: Mild symmetric bilateral hip osteoarthritis. Reviewed, dictated and finalized at location A. QUE DEALER
--- NOTE | ~2020-07-06 | XR_ITS ---
XR hand RT 2V, XR hand LT 2V 07/06/2020 16:58 (accession [id number]), 07/06/2020 16:59 (accession [id number]) Indication: Polyarthralgias Procedure: 2 views of each hand Comparison: 11/25/2013 Findings: There is mild polyarticular osteoarthritis involving the triscaphe, first CMC joints bilate rally as well as the right second and third distal interphalangeal joints. No erosive changes. No sof t tissue abnormality. No radiopaque foreign bodies. Impression: 1: Mild polyarticular osteoarthritis. Reviewed, dictated and finalized at location A. TRANSIT DRIVER Impression: 1: Mild polyarticular osteoarthritis. Impression: 1: Mild polyarticular osteoarthritis.
== END 2020-07-06 16:01 | disposition home or self-care (01) ==
PROVIDERS: PCP Family Medicine; Visit Provider Physician Assistant
DX: M16.0 Bilateral primary osteoarthritis of hip (principal); M18.0 Bilateral primary osteoarthritis of first carpometacarpal joints; M19.042 Primary osteoarthritis, left hand; M19.041 Primary osteoarthritis, right hand; Z98.1 Arthrodesis status
CPT/HCPCS: 73120; 73521; 73620

== ENCOUNTER 2020-08-07 08:50 | Outpatient (CLI) | payer MEDICARE, SELFPAY ==
--- NOTE | ~2020-08-07 | MM_ITS ---
EXAMINATION: MM screening garrick BI w asim HISTORY: Screening mammogram TECHNIQUE: Craniocaudal and mediolateral oblique 3-D tomosynthesis images were obtained and synthetic 2-D images were generated. CAD analysis was submitted and interpreted. COMPARISON: 06/28/2019, 02/26/2017, 11/29/2012 bilateral digital screening mammogram examinations BREAST PARENCHYMAL COMPOSITION: There are scattered areas of fibroglandular density. FINDINGS: There are scattered bilateral benign calcifications. There is no evidence of suspicious mas s, calcification, or architectural distortion to suggest malignancy in either breast. There has been no suspicious interval change. IMPRESSION: 1. No mammographic evidence of malignancy. 2. Recommend routine screening mammography in one year. BI-RADS Category 2: Benign finding(s). Reviewed, dictated and finalized at location A. FITTER
== END 2020-08-07 08:51 | disposition home or self-care (01) ==
PROVIDERS: PCP Family Medicine; Visit Provider Family Medicine
DX: Z12.31 Encounter for screening mammogram for malignant neoplasm of breast (principal)
CPT/HCPCS: 77063; 77067

== ENCOUNTER 2020-10-20 22:00 | Emergency (ER) | payer MEDICARE, MEDICAID, SELFPAY ==
--- NOTE | ~2020-10-20 | XR_ITS ---
XR chest 2V DATE: 10/20/2020 22:48 INDICATION: Midsternal chest pain radiating to right side under breast TECHNIQUE: PA and lateral views COMPARISON: 04/02/2022 view chest FINDINGS: Left-sided pacemaker device with leads overlying right atrium and right ventricle. Normal h eart size. No hilar or mediastinal enlargement. No pulmonary infiltrate or consolidation, pleural effusion or pulmonary vascular congestion or pneumo thorax. Spinal leads overlie the lower thoracic region. Diffuse idiopathic skeletal hyperostosis of the thora cic spine. Posterior surgical lumbar spinal fusion. IVC filter device. IMPRESSION: No active cardiopulmonary disease Reviewed, dictated and finalized at location A.
--- NOTE | ~2020-10-20 | CT_ITS ---
EXAMINATION: CTA chest PE protocol DATE: 10/21/2020 00:28 INDICATION: Chest pain TECHNIQUE: Computed tomography angiography (CTA) of the chest was performed with 100 mL Omnipaque-350 intravenous contrast timed to evaluate the pulmonary arteries. Coronal maximum intensity projection 3D-reconstructions were created by the technologist. Automated exposure control and iterative reconst ruction technique were employed. Exam dose: 494.61 mGy-cm total exam DLP. COMPARISON: 11/04/2020 AP and lateral chest FINDINGS: There is diagnostic contrast enhancement of the pulmonary arteries and no pulmonary embolis m. No thoracic aortic or suprarenal abdominal aortic aneurysm or dissection. No hilar or mediastinal mass lesion or lymphadenopathy. Left dual-lead chest chest pacemaker device with leads overlying right atrium and right ventricle. No rmal heart size. No pericardial or pleural effusion. No pulmonary infiltrate or consolidation or pulmonary mass lesion. Normal adrenal glands. Possible mild fatty liver. Included upper abdominal structures are otherwise u nremarkable. Battery pack overlying posterior upper right atrium leads extending into the lower thoracic spinal ca nal posteriorly. Diffuse idiopathic skeletal hyperostosis. IMPRESSION: No evidence of pulmonary embolism Reviewed, dictated and finalized at Location A. Reviewed, dictated and finalized at location A.
[2020-10-20 22:01] VITALS: BP 119/86; PULSE 94; RESP 20; O2SAT 98
[2020-10-20 22:08] VITALS: PULSE 94
--- NOTE | 2020-10-20 22:08 | ECG_ITS ---
Measurements Intervals [place] Rate: 91 P: 34 [place]: 165 QRS: -78 QRSD: 162 T: 77 QT: 422 QTc: 522 Interpretive Statements ATRIAL SENSE- ELECTRONIC VENTRICULAR PACEMAKER NO FURTHER INTERPRETATION IS POSSIBLE ATYPICAL ECG Electronically Signed On 10-22-2020 16:00:56 CDT by Rangel Moe D.O.
[2020-10-20] MEDS: KETOROLAC 30 MG/ML VIAL (*BKC) IV PUSH (22:34)
[2020-10-20 22:42] LABS: Basophils Percent Auto 0.7 % (0.2-1.2); Eosinophils Absolute Auto 0.1 K/mm3 (0-0.3); Eosinophils Percent Auto 1.2 % (0-4.4); Hematocrit 33.7 % (37.0-47.0); Hemoglobin 11.9 g/dL (12.0-15.0); Immature Granulocyte Absolute 0.01 K/mm3 (0.00-0.031); Immature Granulocyte Percent A 0.2 % (0-0.5); Lymphocytes Absolute Auto 1.92 K/mm3 (0.9-3.2); Lymphocytes Percent Auto 47.8 % (18.3-44.2); Mean Corpuscular HGB Conc 35.3 g/dl (32-36); Mean Corpuscular Hemoglobin 34.3 pg (26-34); Mean Corpuscular Volume 97.1 fl (80-100); Mean Platelet Volume 8.9 fl (7.4-10.4); Monocytes Absolute Auto 0.3 K/mm3 (0.1-0.6); Neutrophils Absolute Auto 1.7 K/mm3 (1.3-6.7); Neutrophils Percent Auto 43.1 % (45.5-73.1); Platelet Count Result 186 k/mm3 (150-375); Red Blood Count 3.47 M/mm3 (4.2-5.4); Red Cell Distribution Width 12.5 % (11.5-14.5)
[2020-10-20 22:55] LABS: Anion Gap 6 mmol/L (8-16); Blood Urea Nitrogen 22 mg/dL (7-17); Calcium 9.7 mg/dL (8.4-10.2); Carbon Dioxide 31 mmol/L (22-30); Chloride 105 mmol/L (98-107); Estimated CRCL calculation 78 ml/min; Estimated Glomerular Filt Rate > 60; Glucose 99 mg/dL (65-105); Potassium 3.7 mmol/L (3.4-5.0); Sodium 142 mmol/L (137-145)
[2020-10-20 22:58] LABS: INR 0.9; Prothrombin Time 12.8 Seconds (11.1-14.7)
[2020-10-20 22:59] LABS: Partial Thromboplastin Time 41.7 SECONDS (22.3-36.8)
--- NOTE | 2020-10-20 22:59 | ED.CHESTPAIN ---
HPI - Chest Pain General Chief Complaint: Chest Pain <Félix Tafoya MD - Last Filed: 10/20/20 23:29> Stated Complaint: CP <Félix Tafoya MD - Last Filed: 10/20/20 23:29> Time Seen by Provider: 10/20/20 22:14 <Félix Tafoya MD - Last Filed: 10/20/20 23:29> History of Present Illness HPI narrative: Patient is a 55-year-old female who presents ER with chest pain. Central and radiates out laterally bilaterally. Patient has pain with twisting and movement. Ongoing for 3 hours. Started spontaneously. No alleviating factors. No history of coronary disease. Had a cardiac catheterization in the last 6 months that showed clean coronaries. Patient has a pacemaker after having ablations for SVT and A. fib. Patient does report history of DVT in the past and is not on blood thinner currently as her physicians do not feel that she requires one. No new lower extremity swelling. Pain is 7/10. <Félix Tafoya MD - Last Filed: 10/20/20 23:29> Related Data Home Medications: Home Medications Medication Instructions Recorded Confirmed Corlanor 5 mg PO BID 04/02/20 10/12/20 aspirin 81 mg PO DAILY 04/03/20 10/12/20 cetirizine [Zyrtec] 10 mg PO DAILY 04/03/20 10/12/20 metoprolol tartrate 25 mg tablet 12.5 mg PO BID tablet 05/24/20 10/12/20 acetaminophen 500 mg tablet 500 mg PO Q6H 07/23/20 10/12/20 <Félix Tafoya MD - Last Filed: 10/20/20 23:29> Allergies/Adverse Reactions: Allergies Allergy/AdvReac Type Severity Reaction Status Date / Time Cephalosporins Allergy Mild RASH Verified 10/12/20 08:51 clarithromycin Allergy Mild RASH Verified 10/12/20 08:51 imipramine Allergy Mild RASH Verified 10/12/20 08:51 meclizine Allergy Mild RASH Verified 10/12/20 08:51 Penicillins Allergy Mild HIVES Verified 10/12/20 08:51 codeine Allergy Unknown SEVERE Verified 10/12/20 08:51 VOMITING methylprednisolone Allergy Unknown DOSE PACK Verified 10/12/20 08:51 CAUSES THROAT SWELLING cefuroxime [From Ceftin] Allergy Hives Verified 10/12/20 08:51 hydromorphone [From Dilaudid] Allergy Hives Verified 10/12/20 08:51 oxycodone [From Percocet] Allergy Hives Verified 10/12/20 08:51 prochlorperazine Allergy Swelling Verified 10/12/20 08:51 [From Compazine] of Lip/Tongue/Throat propoxyphene [From Darvon] Allergy Hives Verified 10/12/20 08:51 propranolol [From Inderal LA] Allergy Rash Verified 10/12/20 08:51 acetaminophen AdvReac Hives Verified 10/12/20 08:51 [From Darvocet-N] diphenhydramine AdvReac Vomiting Verified 10/12/20 08:51 [From Benadryl] hydrocodone [From Vicodin] AdvReac Vomiting Verified 10/12/20 08:51 CEFUROXIME AXETIL Allergy Mild HIVES Uncoded 10/12/20 08:51 HYDROCODONE BIT Allergy Mild NAUSEA AND Uncoded 10/12/20 08:51 VOMITING OXYCODONE HCL Allergy Mild VOMITING Uncoded 10/12/20 08:51 PROPOXYPHENE NAPSYLATE Allergy Mild HIVES Uncoded 10/12/20 08:51 PROPRANOLOL HCL Allergy Mild HIVES Uncoded 10/12/20 08:51 DIPHENHYDRAMINE HCL Allergy Unknown LETHARGIC Uncoded 10/12/20 08:51 PROPOXYPHENE HCL Allergy Unknown HIVES Uncoded 10/12/20 08:51 <Félix Tafoya MD - Last Filed: 10/20/20 23:29> Review of Systems Review of Systems: All systems reviewed & are unremarkable except as noted in HPI and below <Félix Tafoya MD - Last Filed: 10/20/20 23:29> Constitutional: Constitutional: Denies chills, Denies fever(s) and Denies weakness <Félix Tafoya MD - Last Filed: 10/20/20 23:29> ENT: Denies nasal congestion and Denies sore throat <Félix Tafoya MD - Last Filed: 10/20/20 23:29> Cardiovascular: Cardiovascular: Reports chest pain, Denies rapid heart rate and Denies radiating jaw, neck or arm pain <Félix Tafoya MD - Last Filed: 10/20/20 23:29> Respiratory: Respiratory: Denies cough, Denies dyspnea and Denies wheezing <Félix Tafoya MD - Last Filed: 10/20/20 23:29> Gastrointestinal: Gastrointestinal: Denies abdominal
[2020-10-20 23:01] LABS: D Dimer 0.71 ug/mL (<0.48)
[2020-10-20 23:07] LABS: Troponin I < 0.012 ng/mL (0.000-0.034)
[2020-10-20] MEDS: MORPHINE SULFATE (*CRX) 4 MG/ML INJ IV PUSH (23:29)
[2020-10-20 23:31] VITALS: BP 123/87; PULSE 91; RESP 14; O2SAT 100
[2020-10-21] VITALS (15 sets, daily range): BP systolic 119–131; BP diastolic 74–87; PULSE 85–92; RESP 12–22; O2SAT 95–99
[2020-10-21 01:57] LABS: Troponin I < 0.012 ng/mL (0.000-0.034)
== END 2020-10-21 02:33 | disposition home or self-care (01) ==
PROVIDERS: Emergency Medicine; Emergency Provider Emergency Medicine; PCP Family Medicine
DX: R07.9 Chest pain, unspecified (principal); I48.0 Paroxysmal atrial fibrillation; I10 Essential (primary) hypertension; E78.2 Mixed hyperlipidemia; G25.81 Restless legs syndrome; M06.09 Rheumatoid arthritis without rheumatoid factor, multiple sites; G90.50 Complex regional pain syndrome I, unspecified; Z95.0 Presence of cardiac pacemaker; Z79.82 Long term (current) use of aspirin
CPT/HCPCS: 36415; 71046; 71275; 80048; 84484; 85025; 85380; 85610; 85730; 93005; 96374; 96375; 99284; J1885; J2270; Q9967

== ENCOUNTER 2020-12-01 18:26 | Emergency (ER) | payer MEDICARE, MEDICAID, SELFPAY ==
[2020-12-01] VITALS (9 sets, daily range): BP systolic 120–134; BP diastolic 75–82; PULSE 61–71; RESP 12–16; TEMP 36.5; O2SAT 96
--- NOTE | ~2020-12-01 | XR_ITS ---
EXAMINATION: XR chest 1V portable EXAM DATE: 12/01/2020 19:32 INDICATION: Weakness onset this a.m., cough, SOB x 2 wks; pacemaker 2019. TECHNIQUE: Portable AP frontal chest x-ray was obtained. Comparison is made to prior examination from 10/20/2020. FINDINGS: There is a dual lead pacemaker/AICD seen with leads projecting over the expected locations of the right atrial appendage and right ventricle. The lungs are clear. There are no pleural effusio ns. The cardiomediastinal silhouette is within normal limits. There is no pneumothorax suspected. Patient has diffuse idiopathic skeletal hyperostosis (DISH). Spine stimulator leads, tips projecting over the T9 vertebral body. IMPRESSION: No acute cardiopulmonary findings. Reviewed, dictated and finalized at location A.
--- NOTE | 2020-12-01 19:13 | ECG_ITS ---
Measurements Intervals [place] Rate: 60 P: 19 [place]: 176 QRS: -72 QRSD: 177 T: 61 QT: 496 QTc: 497 Interpretive Statements ATRIAL SENSE- ELECTRONIC VENTRICULAR PACEMAKER BASELINE ARTIFACT- II, III, AVF, V3-V6 NO FURTHER INTERPRETATION IS POSSIBLE ATYPICAL ECG Electronically Signed On 12-01-2020 20:03:34 CDT by Rangel Moe D.O.
[2020-12-01] MEDS: SODIUM CHLORIDE 0.9% IV 1,000 ML 999 ML IV CONT (19:37)
[2020-12-01] MEDS: ONDANSETRON INJ 4 MG/2 ML VIAL IV PUSH (19:38)
[2020-12-01 19:41] LABS: Basophils Percent Auto 0.7 % (0.2-1.2); Eosinophils Absolute Auto 0.1 K/mm3 (0-0.3); Eosinophils Percent Auto 1.3 % (0-4.4); Hematocrit 36.5 % (37.0-47.0); Hemoglobin 12.8 g/dL (12.0-15.0); Lymphocytes Absolute Auto 1.87 K/mm3 (0.9-3.2); Lymphocytes Percent Auto 41.2 % (18.3-44.2); Mean Corpuscular HGB Conc 35.1 g/dl (32-36); Mean Corpuscular Hemoglobin 35.5 pg (26-34); Mean Corpuscular Volume 101.1 fl (80-100); Mean Platelet Volume 8.6 fl (7.4-10.4); Monocytes Absolute Auto 0.3 K/mm3 (0.1-0.6); Monocytes Percent Auto 6.8 % (2.6-8.5); Neutrophils Absolute Auto 2.3 K/mm3 (1.3-6.7); Platelet Count Result 199 k/mm3 (150-375); Red Blood Count 3.61 M/mm3 (4.2-5.4); Red Cell Distribution Width 13.4 % (11.5-14.5); White Blood Count 4.5 K/mm3 (4.5-10.0)
[2020-12-01 20:03] LABS: Lactic Acid Reflex 0.9 mmol/L (0.7-2.1)
[2020-12-01 20:04] LABS: Alanine Aminotransferase 14 U/L (4-35); Albumin Level 4.2 g/dL (3.5-5.1); Alkaline Phosphatase 73 U/L (38-126); Anion Gap 3 mmol/L (8-16); Aspartate Amino Transferase 30 U/L (14-36); Bilirubin,Total 0.3 mg/dL (0.2-1.3); Blood Urea Nitrogen 17 mg/dL (7-17); Calcium 9.8 mg/dL (8.4-10.2); Carbon Dioxide 32 mmol/L (22-30); Chloride 104 mmol/L (98-107); Estimated CRCL calculation 79 ml/min; Estimated Glomerular Filt Rate > 60; Glucose 94 mg/dL (65-105); Magnesium 2.2 mg/dL (1.6-2.3); Potassium 4.1 mmol/L (3.4-5.0); Sodium 139 mmol/L (137-145)
[2020-12-01 20:15] LABS: Troponin I < 0.012 ng/mL (0.000-0.034)
[2020-12-01 20:53] LABS: Add Urine Microscopic? YES; Appearance Urine Clear (Clear); Bacteria Urine Trace /hpf; Bilirubin Urine Negative (Negative); Blood Urine Negative (Negative); Color Urine Straw (Yellow); Glucose Urine UA Negative (Negative); Ketones Urine Negative (Negative); Leukocyte Esterase Ur 3+ LEU/UL (Negative); Mucus Urine Rare /lpf; Nitrate Urine Negative (Negative); Protein Urine Negative (Negative); Specific Grav Ur 1.011 (1.001-1.035); Squamous Epithelial Cell Urine Rare /hpf (Few); Urobilinogen Urine Negative mg/dL (<2.0)
--- NOTE | 2020-12-01 21:19 | ED.GENADULT ---
HPI - General Adult General Chief complaint: Weakness Stated complaint: altered Time Seen by Provider: 12/01/20 19:07 History of Present Illness HPI narrative: Patient a 55-year-old female who presents the emergency department with chief complaint of generalized weakness. The patient states she has been feeling off for the last several days noticed that her blood pressure was low on her cuff blood pressure cuff although when EMS arrived the patient had a normal blood pressure. Patient denies fever denies chills patient reports that she has had some body aches with this and just feels generally unwell. Patient denies vomiting or diarrhea she denies abdominal pain. Related Data Home Medications Medication Instructions Recorded Confirmed aspirin 81 mg PO DAILY 04/03/20 10/23/20 cetirizine [Zyrtec] 10 mg PO DAILY 04/03/20 10/23/20 metoprolol tartrate 25 mg tablet 12.5 mg PO BID tablet 05/24/20 10/23/20 acetaminophen 500 mg tablet 500 mg PO Q6H 07/23/20 10/23/20 folic acid 12/01/20 methotrexate sodium 12/01/20 tapentadol [Nucynta ER] 50 mg PO BID 12/01/20 Allergies Allergy/AdvReac Type Severity Reaction Status Date / Time meclizine Allergy Severe Rash Verified 12/01/20 18:57 Cephalosporins Allergy Mild RASH Verified 12/01/20 18:57 clarithromycin Allergy Mild RASH Verified 12/01/20 18:57 imipramine Allergy Mild RASH Verified 12/01/20 18:57 Penicillins Allergy Mild HIVES Verified 12/01/20 18:57 codeine Allergy Unknown Vomiting Verified 12/01/20 18:58 methylprednisolone Allergy Unknown DOSE PACK Verified 12/01/20 18:58 CAUSES THROAT SWELLING cefuroxime [From Ceftin] Allergy Hives Verified 12/01/20 18:57 hydromorphone [From Dilaudid] Allergy Hives Verified 12/01/20 18:57 oxycodone [From Percocet] Allergy Hives Verified 12/01/20 18:57 prochlorperazine Allergy Swelling Verified 12/01/20 18:57 [From Compazine] of Lip/Tongue/Throat propoxyphene [From Darvon] Allergy Hives Verified 12/01/20 18:57 propranolol [From Inderal LA] Allergy Rash Verified 12/01/20 18:57 acetaminophen AdvReac Hives Verified 11/15/20 12:56 [From Darvocet-N] diphenhydramine AdvReac Vomiting Verified 12/01/20 18:57 [From Benadryl] hydrocodone [From Vicodin] AdvReac Vomiting Verified 12/01/20 18:57 Review of Systems Review of Systems: Narrative: A 10 system review of systems was completed on the patient and is negative except for what is stated in the HPI. Nursing and ancillary documentation was reviewed. [facility] Past Medical History Medical History Anemia, unspecified Atopic dermatitis Atypical face pain BMI 26.0-26.9,adult BMI 27.0-27.9,adult BMI 28.0-28.9,adult BMI 28.0-28.9,adult Bradycardia D-dimer, elevated Dizziness Essential (primary) hypertension Foreign body of toe Fracture of second toe, left, closed Groin hematoma Groin pain Left ear pain Lipid disorder Mixed hyperlipidemia Paroxysmal atrial fibrillation Restless leg syndrome Rheumatoid arthritis, seronegative, multiple sites RSD (reflex sympathetic dystrophy) Surgical History Surgical History History of arthroscopic knee surgery History of back surgery History of permanent cardiac pacemaker placement Status post surgical removal of both fallopian tubes Family History Family History Grandparent Family history of blood dyscrasia Family history of Alzheimer's disease Family history of malignant neoplasm of cervix Mother Family history of Alzheimer's disease Father Family history of lung cancer Other Diabetes mellitus Family history of allergic disorder Family history of kidney disease Family history of malignant neoplasm of thyroid Social History Social History (Reviewed 12/01/20 @ 21:21 by Rosita Gastelum
[2020-12-01] MEDS: NITROFURANTOIN MONOHYD MACROCR 100 MG CAP PO (21:40)
== END 2020-12-01 22:03 | disposition home or self-care (01) ==
PROVIDERS: Emergency Provider Emergency Medicine; PCP Family Medicine
DX: N39.0 Urinary tract infection, site not specified (principal); R53.1 Weakness; I10 Essential (primary) hypertension; E78.2 Mixed hyperlipidemia; I48.0 Paroxysmal atrial fibrillation; G25.81 Restless legs syndrome; M06.09 Rheumatoid arthritis without rheumatoid factor, multiple sites; G90.50 Complex regional pain syndrome I, unspecified; Z95.0 Presence of cardiac pacemaker
CPT/HCPCS: 36415; 71045; 80053; 81001; 83605; 83735; 84484; 85025; 87077; 87086; 87088; 87186; 93005; 96361; 96374; 99284; A9270; J2405; J7030

== ENCOUNTER 2021-03-29 08:22 | Outpatient (RCR) | payer MEDICARE, MEDICAID, SELFPAY ==
--- NOTE | 2021-03-29 10:49 | STOPEVAL ---
SPEECH THERAPY INITIAL EVALUATION/DISCHARGE: Thank you for referring Naye Hart to [facility] [facility].? Upon completion of the speech/language and cognitive linguistic evaluation, no further speech therapy is warranted at this time. I agree with and certify that the following discharge from therapy. Referring Physician Date Attending Provider: Dionne Jacinto NP/Dr Tom Paz Past Medical History Source of Past Medical History Recalled from Previous Visit, Confirmed with Patient/Family Neurological History Hx Other Neurological Disorders Yes: RSD-reflex sympathetic dystrophy 2006 Cardiovascular History Hx Cardiac Arrhythmia Yes: IST-inappropriate sinus tachycardia Hx Chest Pain Yes Hx Deep Vein Thrombosis Yes: 2006 Hx Irregular Heartbeat Yes Hx Pacemaker Yes: jun Hx Other Cardiac Disorders Yes: IVC filter, ablation 08-30, AV node ablation 01/06 Respiratory History Hx Respiratory Disorders No Significant History Gastrointestinal History Hx Gastroesophageal Reflux Disease Yes Hx Hernia Yes Genitourinary History Hx Genitourinary Disorders No Significant History Musculoskeletal History Hx Back Pain Yes: S1-L5 Hx Fractures Yes: right wrist Hx Joint Replacement Yes: right knee x 4 Hx Orthopedic Surgery Yes: L wrist Hx Rheumatoid Arthritis Yes Hx Spinal Surgery Yes: fusion L3-S1 2014, 2017 Hx Other Musculoskeletal Disorders Yes: reflex sympathetic Dystropy-spinal cord stimulator inserted Hematological History Hx Hematological Disorders No Significant History Endocrine History Hx Endocrine Disorders No Significant History HEENT History Hx HEENT Disorders No Significant History Integumentary History Hx Skin Disorders No Significant History Reproductive History Hx Post Menopausal Yes Psychosocial History Hx Anxiety Yes Hx Depression Yes Pain History History of Any Previous or Ongoing No Significant History Instance of Pain Anesthesia History Hx Anesthesia Reactions No Significant History Prior Level of Function Activity Level (Last 3 Months) Occupation disabled x 10 years since dx of RSD Hand Dominance Ambidextrous Cooking Yes Cleaning No Laundry No Shopping No Driving Yes 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
== END 2021-04-01 11:17 | disposition home or self-care (01) ==
LOC: ANHST 08:22
PROVIDERS: PCP Family Medicine; Visit Provider Nurse Practitioner Family
DX: G45.9 Transient cerebral ischemic attack, unspecified (principal); G44.201 Tension-type headache, unspecified, intractable; R41.89 Other symptoms and signs involving cognitive functions and awareness
CPT/HCPCS: 92523

== ENCOUNTER → 2021-04-03 12:17 | Outpatient (CLI) | payer MEDICARE, MEDICAID, SELFPAY ==
--- NOTE | ~2021-04-03 | XR_ITS ---
EXAMINATION: XR chest 2V 04/03/2021 12:36 INDICATION: Cough PROCEDURE: 2 view chest COMPARISON: Comparison to multiple prior studies sequentially, with oldest reviewed study dated 06/19. FINDINGS: The lungs are clear. The cardiomediastinal silhouette is within normal limits. There are no pleural effusions. There is no pneumothorax suspected. Pacemaker leads are stable. IMPRESSION: 1: NO ACUTE CARDIOPULMONARY DISEASE. Reviewed, dictated and finalized at location A.
== END ==
PROVIDERS: PCP Family Medicine; Visit Provider Nurse Practitioner Family
DX: R05 Cough (principal)
CPT/HCPCS: 71046

== ENCOUNTER 2021-05-12 19:58 | Emergency (ER) | payer MEDICARE, MEDICAID, SELFPAY ==
[2021-05-12] VITALS (26 sets, daily range): BP systolic 125–149; BP diastolic 81–91; PULSE 78–94; RESP 10–23; TEMP 36.9; O2SAT 93–99
--- NOTE | ~2021-05-12 | XR_ITS ---
XR chest 1V portable DATE: 05/12/2021 20:18 INDICATION: Chest pain. TECHNIQUE: Portable AP chest on 05/08/2021 at 2014 hours COMPARISON: 04/03/2021 2 view chest FINDINGS: Left-sided dual-lead pacemaker device with leads overlying right atrium and right ventricle . Normal heart size. No hilar or mediastinal enlargement. No pulmonary infiltrate or consolidation, p leural effusion or pulmonary vascular congestion or pneumothorax. 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 IMPRESSION: No active cardiopulmonary disease Reviewed, dictated and finalized at location A.
--- NOTE | ~2021-05-12 | CT_ITS ---
EXAMINATION: CT brain wo con DATE: 05/12/2021 20:51 INDICATION: Headache TECHNIQUE: Computed tomography (CT) of the head was performed without intravenous contrast. The mA wa s adjusted according to patient size. Iterative reconstruction technique was employed. Exam dose: 60 5.33 mGy-cm total exam DLP. COMPARISON: None FINDINGS: No intracranial mass lesion or hemorrhage or cerebrovascular accident. No midline shift or mass effect effect. Cerebral atherosclerosis. Normal ventricular size. No subdural or epidural hemato ma. No fracture or bone destruction or cranial vault. Included paranasal sinuses and mastoid air cells are unremarkable. IMPRESSION: Cerebral atherosclerosis No acute intracranial finding Reviewed, dictated and finalized at Location A. Reviewed, dictated and finalized at location A.
--- NOTE | 2021-05-12 20:04 | ECG_ITS ---
Measurements Intervals [place] Rate: 92 P: 59 UT: 157 QRS: -79 QRSD: 166 T: 81 QT: 431 QTc: 535 Interpretive Statements ATRIAL SENSE- ELECTRONIC VENTRICULAR PACEMAKER BASELINE ARTIFACT- I, III, AVL, V2 NO FURTHER INTERPRETATION IS POSSIBLE ATYPICAL ECG Electronically Signed On 05-12-2021 22:34:42 CDT by Rangel Moe D.O.
[2021-05-12 20:18] LABS: Basophils Percent Auto 0.5 % (0.2-1.2); Eosinophils Absolute Auto 0.1 K/mm3 (0-0.3); Eosinophils Percent Auto 1.3 % (0-4.4); Hemoglobin 13.5 g/dL (12.0-15.0); Immature Granulocyte Absolute 0.01 K/mm3 (0.00-0.031); Immature Granulocyte Percent A 0.2 % (0-0.5); Lymphocytes Absolute Auto 2.43 K/mm3 (0.9-3.2); Lymphocytes Percent Auto 39.4 % (18.3-44.2); Mean Corpuscular HGB Conc 35.5 g/dl (32-36); Mean Corpuscular Hemoglobin 37.6 pg (26-34); Mean Corpuscular Volume 105.8 fl (80-100); Mean Platelet Volume 9.1 fl (7.4-10.4); Monocytes Absolute Auto 0.5 K/mm3 (0.1-0.6); Monocytes Percent Auto 7.6 % (2.6-8.5); Neutrophils Absolute Auto 3.1 K/mm3 (1.3-6.7); Platelet Count Result 215 k/mm3 (150-375); Red Blood Count 3.59 M/mm3 (4.2-5.4); Red Cell Distribution Width 12.7 % (11.5-14.5); White Blood Count 6.2 K/mm3 (4.5-10.0)
[2021-05-12 20:30] LABS: INR 0.9; Prothrombin Time 11.9 Seconds (11.1-14.7)
[2021-05-12 20:31] LABS: Partial Thromboplastin Time 33.5 SECONDS (22.3-36.8)
[2021-05-12 20:49] LABS: Troponin I 0.016 ng/mL (0.000-0.034)
[2021-05-12] MEDS: MORPHINE SULFATE (*CRX) 4 MG/ML INJ IV PUSH ×2 (20:58→21:56)
[2021-05-12] MEDS: ONDANSETRON INJ 4 MG/2 ML VIAL IV PUSH (20:58)
[2021-05-12 20:59] LABS: Anion Gap 9 mmol/L (8-16); Blood Urea Nitrogen 17 mg/dL (7-17); Calcium 9.5 mg/dL (8.4-10.2); Carbon Dioxide 29 mmol/L (22-30); Chloride 103 mmol/L (98-107); Estimated CRCL calculation 78 ml/min; Estimated Glomerular Filt Rate > 60; Glucose 92 mg/dL (65-110); Potassium 3.9 mmol/L (3.4-5.0); Sodium 141 mmol/L (137-145)
--- NOTE | 2021-05-12 21:17 | ED.GENADULT ---
HPI - General Adult General Chief complaint: Chest Pain Stated complaint: headache/chest pain Time Seen by Provider: 05/12/21 20:20 History of Present Illness HPI narrative: Patient 55-year-old female presents emerged department with chief complaint of chest pain and headache. Patient reports she has history of a pacemaker and reports that she started having pain in her chest and also having palpitations. The patient states that the palpitations been going on this afternoon reports not improved by anything or they worsen reports she developed a severe headache patient reports the pain is not improved by anything nor is worsened by anything. Related Data Home Medications Medication Instructions Recorded Confirmed aspirin 81 mg PO DAILY 04/03/20 04/05/21 folic acid 1 mg tablet 1 mg PO DAILY 02/19/21 04/05/21 methotrexate sodium 2.5 mg tablet 12.5 mg PO WEEKLY tablet 02/19/21 04/05/21 metoprolol tartrate 50 mg tablet 50 mg PO Q12H 02/19/21 04/05/21 Allergies Allergy/AdvReac Type Severity Reaction Status Date / Time meclizine Allergy Severe Rash Verified 05/12/21 20:03 carbamazepine [From Tegretol] Allergy Intermediate Blister Verified 05/12/21 20:03 Cephalosporins Allergy Mild RASH Verified 05/12/21 20:03 clarithromycin Allergy Mild RASH Verified 05/12/21 20:03 imipramine Allergy Mild RASH Verified 05/12/21 20:03 Penicillins Allergy Mild HIVES Verified 05/12/21 20:03 codeine Allergy Unknown Vomiting Verified 05/12/21 20:03 methylprednisolone Allergy Unknown DOSE PACK Verified 05/12/21 20:03 CAUSES THROAT SWELLING cefuroxime [From Ceftin] Allergy Hives Verified 05/12/21 20:03 hydromorphone [From Dilaudid] Allergy Hives Verified 05/12/21 20:03 oxycodone [From Percocet] Allergy Hives Verified 05/12/21 20:03 prochlorperazine Allergy Swelling Verified 05/12/21 20:03 [From Compazine] of Lip/Tongue/Throat propoxyphene [From Darvon] Allergy Hives Verified 05/12/21 20:03 propranolol [From Inderal LA] Allergy Rash Verified 05/12/21 20:03 acetaminophen AdvReac Hives Verified 05/12/21 20:03 [From Darvocet-N] diphenhydramine AdvReac Vomiting Verified 05/12/21 20:03 [From Benadryl] hydrocodone [From Vicodin] AdvReac Vomiting Verified 05/12/21 20:03 Review of Systems Review of Systems: A 10 system review of systems was completed on the patient and is negative except for what is stated in the HPI. Nursing and ancillary documentation was reviewed. [facility] Past Medical History Medical History A-fib Allergic dermatitis Anemia, unspecified Ataxia Atopic dermatitis Atypical face pain BMI 26.0-26.9,adult BMI 27.0-27.9,adult BMI 28.0-28.9,adult BMI 28.0-28.9,adult Bradycardia Confusion D-dimer, elevated Degenerative joint disease of cervical and lumbar spine Dizziness Essential (primary) hypertension Foreign body of toe Fracture of second toe, left, closed Groin hematoma Groin pain Headache Left ear pain Lipid disorder Mixed hyperlipidemia Paroxysmal atrial fibrillation Restless leg syndrome Rheumatoid arthritis, seronegative, multiple sites RSD (reflex sympathetic dystrophy) TIA (transient ischemic attack) Surgical History Surgical History History of arthroscopic knee surgery History of back surgery History of permanent cardiac pacemaker placement Status post surgical removal of both fallopian tubes Family History Family History Grandparent Family history of blood dyscrasia Family history of Alzheimer's disease Family history of malignant neoplasm of cervix Mother Family history of Alzheimer's disease Father Family history of lung cancer Sibling No problems noted. Other Diabetes mellitus Family history of allergic disorder Family history of kidney disease Fam
[2021-05-12 23:46] LABS: Troponin I 0.015 ng/mL (0.000-0.034)
[2021-05-13 00:38] VITALS: BP 136/80; PULSE 80; RESP 20; O2SAT 99
== END 2021-05-13 00:39 | disposition home or self-care (01) ==
PROVIDERS: Emergency Provider Emergency Medicine; PCP Family Medicine
DX: R07.9 Chest pain, unspecified (principal); Z95.0 Presence of cardiac pacemaker; I48.0 Paroxysmal atrial fibrillation; I10 Essential (primary) hypertension; E78.2 Mixed hyperlipidemia; G25.81 Restless legs syndrome; M06.09 Rheumatoid arthritis without rheumatoid factor, multiple sites; G90.50 Complex regional pain syndrome I, unspecified; Z86.73 Personal history of transient ischemic attack (TIA), and cerebral infarction without residual deficits; Z79.82 Long term (current) use of aspirin
CPT/HCPCS: 36415; 70450; 71045; 80048; 84484; 85025; 85610; 85730; 93005; 96374; 96375; 96376; 99284; J2270; J2405

== ENCOUNTER → 2021-05-15 02:40 | Outpatient (CLI) | payer MEDICARE, SELFPAY ==
[2021-05-15 17:36] LABS: SARS-CoV-2 RNA PCR Negative
== END ==
PROVIDERS: PCP Family Medicine; Visit Provider Nurse Practitioner Family
DX: Z20.822 Contact with and (suspected) exposure to COVID-19 (principal); R09.89 Other specified symptoms and signs involving the circulatory and respiratory systems
CPT/HCPCS: C9803; U0003; U0005

== ENCOUNTER → 2021-06-07 09:28 | Outpatient (CLI) | payer MEDICARE, SELFPAY ==
[2021-06-07 16:36] LABS: SARS-CoV-2 RNA PCR Positive
== END ==
PROVIDERS: PCP Family Medicine; Visit Provider Nurse Practitioner Family
DX: U07.1 COVID-19 (principal); R68.89 Other general symptoms and signs
CPT/HCPCS: C9803; U0003; U0005

== ENCOUNTER 2021-06-14 13:48 | Emergency (ER) | payer MEDICARE, MEDICAID, SELFPAY ==
[2021-06-14] VITALS (30 sets, daily range): BP systolic 100–128; BP diastolic 61–79; PULSE 66–95; RESP 9–18; TEMP 37.4–37.6; O2SAT 95–100
--- NOTE | ~2021-06-14 | XR_ITS ---
EXAMINATION: XR chest 1V portable DATE: 06/14/2021 14:03 INDICATION: Dyspnea TECHNIQUE: frontal view of the chest was obtained. COMPARISON: Chest radiograph dated 05/12/2021 FINDINGS: No focal airspace opacities, pulmonary edema, pleural effusion or pneumothorax. The cardiomediastinal silhouette is normal. Dual lead pacemaker seen with leads projecting over the expected locations of the right atrium and right ventricle. There is a second right ventricular lead which is not connected to the pacemaker. Spinal stimulator leads project over the lower thoracic central canal with distal tips at the level of T9. There are bridging osteophytes at multiple levels in the spine, consistent w ith diffuse idiopathic skeletal hyperostosis (DISH). IMPRESSION: 1. No acute cardiopulmonary disease. Reviewed, dictated and finalized at location A. NG MACHINE FEEDER
--- NOTE | 2021-06-14 13:54 | ECG_ITS ---
Measurements Intervals [place] Rate: 68 P: 19 MT: 279 QRS: -71 QRSD: 157 T: 65 QT: 463 QTc: 495 Interpretive Statements ATRIAL SENSE- ELECTRONIC VENTRICULAR PACEMAKER NO FURTHER INTERPRETATION IS POSSIBLE ATYPICAL ECG Electronically Signed On 06-14-2021 14:39:52 STEEPLE JACK by Rangel Moe D.O.
[2021-06-14] MEDS: ONDANSETRON INJ 4 MG/2 ML VIAL IV PUSH ×2 (14:05→15:35)
[2021-06-14] MEDS: SODIUM CHLORIDE 0.9% IV 1,000 ML 999 ML IV CONT (14:05)
[2021-06-14 14:19] LABS: Basophils Percent Auto 0.5 % (0.2-1.2); Eosinophils Percent Auto 0.2 % (0-4.4); Hematocrit 35.2 % (37.0-47.0); Hemoglobin 12.7 g/dL (12.0-15.0); Immature Granulocyte Absolute 0.02 K/mm3 (0.00-0.031); Immature Granulocyte Percent A 0.5 % (0-0.5); Lymphocytes Absolute Auto 1.32 K/mm3 (0.9-3.2); Lymphocytes Percent Auto 30.2 % (18.3-44.2); Mean Corpuscular HGB Conc 36.1 g/dl (32-36); Mean Corpuscular Hemoglobin 36.5 pg (26-34); Mean Corpuscular Volume 101.1 fl (80-100); Mean Platelet Volume 9.3 fl (7.4-10.4); Monocytes Absolute Auto 0.4 K/mm3 (0.1-0.6); Monocytes Percent Auto 8.2 % (2.6-8.5); Neutrophils Absolute Auto 2.6 K/mm3 (1.3-6.7); Neutrophils Percent Auto 60.4 % (45.5-73.1); Platelet Count Result 172 k/mm3 (150-375); Red Blood Count 3.48 M/mm3 (4.2-5.4); Red Cell Distribution Width 12.6 % (11.5-14.5); White Blood Count 4.4 K/mm3 (4.5-10.0)
[2021-06-14 14:30] LABS: Lactic Acid Reflex 0.9 mmol/L (0.7-2.1)
[2021-06-14 14:31] LABS: Alanine Aminotransferase 18 U/L (4-35); Albumin Level 4.2 g/dL (3.5-5.1); Alkaline Phosphatase 63 U/L (38-126); Anion Gap 9 mmol/L (8-16); Aspartate Amino Transferase 32 U/L (14-36); Bilirubin,Total 0.6 mg/dL (0.2-1.3); Blood Urea Nitrogen 18 mg/dL (7-17); Calcium 8.8 mg/dL (8.4-10.2); Carbon Dioxide 26 mmol/L (22-30); Chloride 100 mmol/L (98-107); Estimated CRCL calculation 78 ml/min; Estimated Glomerular Filt Rate > 60; Glucose 103 mg/dL (65-110); Lipase 154 U/L (23-300); Potassium 3.5 mmol/L (3.4-5.0); Sodium 135 mmol/L (137-145)
--- NOTE | 2021-06-14 15:20 | ED.GENADULT ---
HPI - General Adult General Chief complaint: Upper Respiratory Infection Stated complaint: N/V/D COVID + Time Seen by Provider: 06/14/21 13:53 Source: patient History of Present Illness HPI narrative: Patient presents with not feeling well. She reports she was diagnosed with Covid several days ago and is just been getting worse. Reports continued shortness of breath. Reports diffuse body ache nausea vomiting and diarrhea. Reports she has not been able to keep any of her medications down she called ambulance and came to the ER for evaluation. Reports abdominal pain is achy, constant, diffuse, no clear aggravating or alleviating factors, no radiation she denies urinary symptoms Related Data Home Medications Medication Instructions Recorded Confirmed aspirin 81 mg PO DAILY 04/03/20 06/03/21 folic acid 1 mg tablet 1 mg PO DAILY 02/19/21 06/03/21 methotrexate sodium 2.5 mg tablet 12.5 mg PO WEEKLY tablet 02/19/21 06/03/21 metoprolol tartrate 50 mg tablet 50 mg PO Q12H 02/19/21 06/03/21 Allergies Allergy/AdvReac Type Severity Reaction Status Date / Time meclizine Allergy Severe Rash Verified 06/14/21 13:55 carbamazepine [From Tegretol] Allergy Intermediate Blister Verified 06/14/21 13:55 Cephalosporins Allergy Mild RASH Verified 06/14/21 13:55 clarithromycin Allergy Mild RASH Verified 06/14/21 13:55 imipramine Allergy Mild RASH Verified 06/14/21 13:55 Penicillins Allergy Mild HIVES Verified 06/14/21 13:55 codeine Allergy Unknown Vomiting Verified 06/14/21 13:55 methylprednisolone Allergy Unknown DOSE PACK Verified 06/14/21 13:55 CAUSES THROAT SWELLING cefuroxime [From Ceftin] Allergy Hives Verified 06/14/21 13:55 hydromorphone [From Dilaudid] Allergy Hives Verified 06/14/21 13:55 oxycodone [From Percocet] Allergy Hives Verified 06/14/21 13:55 prochlorperazine Allergy Swelling Verified 06/14/21 13:55 [From Compazine] of Lip/Tongue/Throat propoxyphene [From Darvon] Allergy Hives Verified 06/14/21 13:55 propranolol [From Inderal LA] Allergy Rash Verified 06/14/21 13:55 acetaminophen AdvReac Hives Verified 06/14/21 13:55 [From Darvocet-N] diphenhydramine AdvReac Vomiting Verified 06/14/21 13:55 [From Benadryl] hydrocodone [From Vicodin] AdvReac Vomiting Verified 06/14/21 13:55 Review of Systems Review of Systems: CONSTITUTIONAL: Denies fever, chills, or sweats. EYES: Denies visual changes, redness, or discharge. ENT: Denies rhinorrhea, congestion, sore throat, or otalgia. CARDIOVASCULAR: Denies chest pain, palpitations, or edema. RESPIRATORY: Reports cough and shortness of breath GASTROINTESTINAL: Reports abdominal pain, nausea, vomiting, diarrhea GENITOURINARY: Denies dysuria or hematuria. SKIN: Denies rash or itching. MUSCULOSKELETAL: Denies back pain, joint pain, or myalgia. NEUROLOGIC: Denies headache, numbness, dizziness, or weakness. PSYCHIATRIC: Denies anxiety or depression. All systems reviewed & are unremarkable except as noted in HPI and below PMFSH Past Medical History Medical History A-fib Allergic dermatitis Anemia, unspecified Ataxia Atopic dermatitis Atypical face pain BMI 26.0-26.9,adult BMI 27.0-27.9,adult BMI 28.0-28.9,adult BMI 28.0-28.9,adult Bradycardia Confusion D-dimer, elevated Degenerative joint disease of cervical and lumbar spine Dizziness Essential (primary) hypertension Foreign body of toe Fracture of second toe, left, closed Groin hematoma Groin pain Headache Left ear pain Lipid disorder Mixed hyperlipidemia Paroxysmal atrial fibrillation Restless leg syndrome Rheumatoid arthritis, seronegative, multiple sites RSD (reflex sympathetic dystrophy) TIA (transient ischemic attack) Surgical History Surgical History History of arthroscopic knee surgery History of back surgery History of permanent cardiac pacemaker placement Status post surgical re
--- NOTE | 2021-06-14 15:23 | PC.NURSE ---
Per EDP Oni, no urine specimen needed.
--- NOTE | 2021-06-14 16:43 | PC.NURSE ---
Patient stating to this RN she does not feel comfortable going home because I know my body, I just won't get better. Patient stating she would leave and just come right back because she doesn't feel any better. ED charge nurse Ashley spoke with patient.
[2021-06-14 17:07] LABS: Add Urine Microscopic? YES; Appearance Urine Cloudy (Clear); Bilirubin Urine Negative (Negative); Blood Urine Negative (Negative); Color Urine Yellow (Yellow); Glucose Urine UA Negative (Negative); Ketones Urine 1+ mg/dL (Negative); Leukocyte Esterase Ur Negative LEU/UL (Negative); Mucus Urine Few /lpf; Nitrate Urine Negative (Negative); Protein Urine 1+ mg/dL (Negative); RBC Urine 0-2 /hpf (0-2); Specific Grav Ur 1.023 (1.001-1.035); Squamous Epithelial Cell Urine Rare /hpf (Few); WBC Urine 0-3 /hpf
--- NOTE | 2021-06-14 17:22 | PC.NURSE ---
Patient ambulated with pulse ox on. Patient's O2 stayed between 96%-97%.
--- NOTE | 2021-06-14 17:46 | PC.NURSE ---
EDP Oni spoke to patient regarding orthostatic blood pressures, urine specimen, and walking pulse oximeter. Patient comfortable with discharge at this time.
== END 2021-06-14 18:05 | disposition home or self-care (01) ==
PROVIDERS: Emergency Provider Emergency Medicine; PCP Family Medicine
DX: U07.1 COVID-19 (principal); I48.0 Paroxysmal atrial fibrillation; I10 Essential (primary) hypertension; E78.2 Mixed hyperlipidemia; G25.81 Restless legs syndrome; Z86.73 Personal history of transient ischemic attack (TIA), and cerebral infarction without residual deficits; G90.50 Complex regional pain syndrome I, unspecified; M06.09 Rheumatoid arthritis without rheumatoid factor, multiple sites; Z79.82 Long term (current) use of aspirin; D64.9 Anemia, unspecified; Z77.22 Contact with and (suspected) exposure to environmental tobacco smoke (acute) (chronic)
CPT/HCPCS: 36415; 71045; 80053; 81001; 83605; 83690; 85025; 93005; 96361; 96374; 99284; J2405; J7030

== ENCOUNTER 2021-08-09 09:31 | Outpatient (CLI) | payer MEDICARE, MEDICAID, SELFPAY ==
--- NOTE | ~2021-08-09 | NM_ITS ---
EXAMINATION: NM hepatobiliary wo pharm DATE: 08/09/2021 12:03 INDICATION: Gaseous abdominal distention. COMPARISON: None. TECHNIQUE: 5.1 mCi Tc-99m mebrofenin (Choletec) was administered intravenously. Scintigraphic images of the abdomen were obtained for one hour. At the 1 hour time point, the patient drank 8 oz Ensure, and imaging was continued for 60 minutes. Gallbladder ejection fraction was calculated by the technol ogist. FINDINGS: There is normal clearance of radiotracer from the blood pool. There is homogeneous tracer u ptake by the liver. Activity progresses to the bowel and gallbladder. The gallbladder ejection fract ion (GBEF) is 68%. Note that with this technique, normal GBEF >= 33%. IMPRESSION: 1. Normal hepatobiliary scan. Reviewed, dictated and finalized at location A. EWATER PROCESS ENGINEER
== END 2021-08-09 09:32 | disposition home or self-care (01) ==
LOC: ANHIMG 09:34
PROVIDERS: PCP Family Medicine; Visit Provider Family Medicine
DX: R14.0 Abdominal distension (gaseous) (principal); R19.05 Periumbilic swelling, mass or lump
CPT/HCPCS: 78226; A9537

== ENCOUNTER 2021-09-06 07:57 | Outpatient (CLI) | payer MEDICARE, MEDICAID, SELFPAY ==
[2021-09-06 08:21] LABS: Basophils Percent Auto 0.8 % (0.2-1.2); Eosinophils Percent Auto 0.8 % (0-4.4); Hematocrit 38.1 % (37.0-47.0); Hemoglobin 13.1 g/dL (12.0-15.0); Immature Granulocyte Absolute 0.01 K/mm3 (0.00-0.031); Immature Granulocyte Percent A 0.3 % (0-0.5); Lymphocytes Absolute Auto 1.49 K/mm3 (0.9-3.2); Lymphocytes Percent Auto 37.9 % (18.3-44.2); Mean Corpuscular HGB Conc 34.4 g/dl (32-36); Mean Corpuscular Hemoglobin 34.7 pg (26-34); Mean Corpuscular Volume 101.1 fl (80-100); Mean Platelet Volume 8.8 fl (7.4-10.4); Monocytes Absolute Auto 0.4 K/mm3 (0.1-0.6); Monocytes Percent Auto 9.9 % (2.6-8.5); Neutrophils Percent Auto 50.3 % (45.5-73.1); Platelet Count Result 190 k/mm3 (150-375); Red Blood Count 3.77 M/mm3 (4.2-5.4); Red Cell Distribution Width 13.2 % (11.5-14.5); White Blood Count 3.9 K/mm3 (4.5-10.0)
[2021-09-06 08:31] LABS: Anion Gap 8 mmol/L (8-16); Blood Urea Nitrogen 20 mg/dL (7-17); Calcium 9.8 mg/dL (8.4-10.2); Carbon Dioxide 26 mmol/L (22-30); Chloride 107 mmol/L (98-107); Estimated Glomerular Filt Rate > 60; Glucose 101 mg/dL (65-110); Potassium 4.2 mmol/L (3.4-5.0); Sodium 141 mmol/L (137-145)
== END 2021-09-06 07:58 | disposition home or self-care (01) ==
PROVIDERS: PCP Family Medicine; Visit Provider Surgery
DX: K43.0 Incisional hernia with obstruction, without gangrene (principal); Z95.0 Presence of cardiac pacemaker
CPT/HCPCS: 36415; 80048; 85025

== ENCOUNTER → 2021-09-07 00:04 | Outpatient (CLI) | payer MEDICARE, MEDICAID, SELFPAY ==
[2021-09-07 16:46] LABS: SARS-CoV-2 RNA PCR Negative
== END ==
PROVIDERS: PCP Family Medicine; Visit Provider Surgery
DX: Z01.812 Encounter for preprocedural laboratory examination (principal); Z20.822 Contact with and (suspected) exposure to COVID-19
CPT/HCPCS: C9803; U0003; U0005

== ENCOUNTER 2021-09-11 01:45 | Day surgery (SDC) | payer MEDICARE, MEDICAID, SELFPAY ==
[2021-09-04 11:35] VITALS: BMI 27.3
--- NOTE | 2021-09-04 11:59 | PC.NURSE ---
Report to the Outpatient Waiting Room, entrance under the green pavilion located off [facility], at time 6:30 on date 09/11/21. OR Time: 8:30. - You and your visitor will be asked a series of questions to screen for COVID 19 for your protection. - A mask is required within the hospital. One visitor will be allowed to accompany the patient into the hospital. Patients visitor will be instructed to remain with patient at all times or leave the building. We will allow the visitor to come back to the postoperative area when patient is ready. Preoperative COVID Testing Requirements: COVID TEST 09/07 AT 9:40 No COVID Test needed if: (proof is required; if not received patient will have Rapid Test prior to entry) - Patient has received COVID Vaccine at least 14 days prior to procedure date or - Patient has positive COVID test result within last 90 days of surgery date. COVID Test needed if above criteria is not met If not COVID vaccinated a COVID test must be conducted within 72 hours of surgery and patient is asked to isolate self from time of testing until procedure. You will go to the [facility] for your COVID testing. The [facility] is located at the corner of [address] [facility]. You will only be called if COVID results are positive and your surgeon may reschedule your elective surgery date. Patients may have clear liquids (water, carbonated beverages, clear teas, apple juice) until 3 hours prior to surgery (5:30) with a maximum of 20 ounces. - No food from midnight until time of surgery Take the following medications with a SIP of water the morning of surgery: TYLENOL, INHALER, DULOXETINE, METOPROLOL, ROPINIROLE Medications to discontinue per physician: VITAMINS/SUPPLEMENTS Date to take last dose: 09/07/21 STOP METHOTREXATE AND ENBREL PER DR'S INSTRUCTIONS Please no make-up, nail chinese, hairspray, perfume, deodorant, or body powder the day of surgery. No jewelry (including any body piercings) or valuables the day of surgery, leave them at home. Please take a shower or bath the night before, or the morning of, surgery with an antibacterial soap. Wear comfortable, loose fitting clothing. HIBICLENS SHOWER - Jewelry must be removed prior to entering the operating room. Rings and piercings that are not removed may be cut off. - The hospital will not accept responsibility for valuables. - Please leave all valuables, including medications, at home the day of surgery. If you are going home after surgery, a licensed lyft driver must drive you home. - NO public transportation without another adult. - We recommend that an adult stay with you for 24 hours following discharge. - We also recommend that you do not drive, make important decision, drink alcoholic beverages, or take any drugs that were not prescribed by your health care provider for at least 24 hours after your discharge time. Follow any additional instructions given to you from your surgeon. Telephone instructions given to CHASIDY CANTU and asked if any additional questions and then verbalized understanding. Patient advised to call surgeon office or pre surgery nurse liaison [phone] if any additional questions.
[2021-09-11] MEDS: KETOROLAC 15 MG/ML VIAL (*BKC) IV PUSH (07:00)
[2021-09-11] MEDS: ACETAMINOPHEN 500 MG TABLET 1000 MG PO (07:00)
[2021-09-11] MEDS: LACTATED RINGERS 1,000 ML 30 ML IV CONT ×2 (07:00→10:05)
--- NOTE | 2021-09-11 07:09 | WPDANESEPPF ---
Anes - Initial Pre Proc Eval Procedure: Operation Date: 09/11/21 08:30 Proposed Procedures p Repair of Recurrent Periumbilical Ventral Hernia Repair with Mesh - Tam Fraser MD Date/Time: 09/11/21 07:09 Surgeon: Tam Fraser MD Pre Op Diagnosis: recurrent ventral hernia Patient Data Age: 56 Gender: F Height: 1.73 m Weight: 81.65 kg Allergies Allergy/AdvReac Type Severity Reaction Status Date / Time meclizine Allergy Severe Rash Verified 09/06/21 08:28 carbamazepine [From Tegretol] Allergy Intermediate Blister Verified 09/06/21 08:28 Cephalosporins Allergy Mild RASH Verified 09/06/21 08:28 clarithromycin Allergy Mild RASH Verified 09/06/21 08:28 imipramine Allergy Mild RASH Verified 09/06/21 08:28 Penicillins Allergy Mild HIVES Verified 09/06/21 08:28 codeine Allergy Unknown Vomiting Verified 09/06/21 08:28 cefuroxime [From Ceftin] Allergy Hives Verified 09/06/21 08:28 hydromorphone [From Dilaudid] Allergy Hives Verified 09/06/21 08:28 oxycodone [From Percocet] Allergy Hives Verified 09/06/21 08:28 prochlorperazine Allergy Swelling Verified 09/06/21 08:28 [From Compazine] of Lip/Tongue/Throat propoxyphene [From Darvon] Allergy Hives Verified 09/06/21 08:28 propranolol [From Inderal LA] Allergy Rash Verified 09/06/21 08:28 diphenhydramine AdvReac Vomiting Verified 09/06/21 08:28 [From Benadryl] hydrocodone [From Vicodin] AdvReac Vomiting Verified 09/06/21 08:28 Home Medications Medication Instructions Recorded Confirmed Type aspirin 81 mg PO DAILY 04/03/20 09/06/21 History duloxetine 60 mg capsule,delayed 60 mg PO DAILY #30 cap 04/03/20 09/06/21 Rx release nitroglycerin [Nitrostat] 0.4 mg SUBLINGUAL Q5MIN PRN #25 04/03/20 09/06/21 Rx tablet azelastine 205.5 mcg (0.15 %) See Rx Instructions .ROUTE 01/21/21 09/06/21 Rx nasal spray .COMPLEX #30 spray folic acid 1 mg tablet 1 mg PO DAILY 02/19/21 09/06/21 History methotrexate sodium 2.5 mg tablet 12.5 mg PO WEEKLY tablet 02/19/21 09/06/21 History metoprolol tartrate 50 mg tablet 50 mg PO Q12H 02/19/21 09/06/21 History mupirocin 2 % topical ointment 1 applic TOPICAL BID #22 g 04/03/21 09/06/21 Rx montelukast 10 mg tablet 10 mg PO DAILY #90 tablet 04/15/21 09/06/21 Rx diclofenac sodium 1 % topical gel See Rx Instructions .ROUTE 04/25/21 09/06/21 Rx .COMPLEX #500 g rosuvastatin 20 mg tablet 20 mg PO DAILY #90 tablet 05/13/21 09/06/21 Rx ubrogepant 100 mg tablet 100 mg PO ONCE #9 tablet 05/13/21 09/06/21 Rx albuterol sulfate 90 mcg/actuation 1 inh INHALATION Q4H PRN #6.7 g 06/26/21 09/06/21 Rx aerosol inhaler promethazine 25 mg rectal 25 mg RECTAL Q6H PRN #24 ea 07/26/21 09/06/21 Rx suppository ropinirole 1 mg tablet 1 mg PO QID #120 tablet 08/14/21 09/06/21 Rx duloxetine 30 mg capsule,delayed 30 mg PO DAILY #90 cap 08/19/21 09/06/21 Rx release pantoprazole 40 mg tablet,delayed 40 mg PO QAM 28 Days #28 tablet 08/19/21 09/06/21 Rx release epinephrine 0.3 mg/0.3 mL 0.3 mg IM ONCE #2 ea 08/20/21 09/06/21 Rx injection, auto-injector sucralfate 1 gram tablet 1 g PO BID #60 tablet 08/26/21 09/06/21 Rx acetaminophen [Tylenol Arthritis 650 mg PO BID 09/04/21 09/06/21 History Pain] etanercept [Enbrel SureClick] 50 mg SUBCUT WEEKLY 09/04/21 09/06/21 History multivitamin 1 tablet PO DAILY 09/04/21 09/06/21 History triamcinolone acetonide 0.5 % 1 applic TOPICAL DAILY #15 g 09/06/21 09/06/21 Rx topical cream Patient hx anesthesia problems: none Family hx anesthesia problems: none Results Review: All pre-operative results and documents have been reviewed as part of the pre-operative evaluation. [facility] Past Medical History Medical History A-fib Abdominal lump Allergic dermatitis Anemia, unspecified Anxiety about health Ataxia Atopic dermatitis Atypical face pain BMI 26.0-26.9,adult BMI 27.0-27.9,adult BMI 27.0-27.9,adult BMI 28.0-28.9,adult BMI 28.0-28.9,ad
[2021-09-11 08:00] VITALS: BP 127/86; PULSE 70; RESP 18; TEMP 36.4; O2SAT 100
--- NOTE | 2021-09-11 08:09 | WPDHPUPDATE1 ---
History and Physical Update Update Date/Time: 09/11/21 08:09 History and Physical has been reviewed, including an updated exam of the patient. There are NO changes in the patient's condition. Risks, benefits, and alternatives have been discussed and questions answered. Patient agrees to proceed with procedure.
[2021-09-11] MEDS: CLINDAMYCIN 900 MG/D5W 50 ML 900 MG/50 ML PIGGYBACK 50 MG IVPB (08:27)
[2021-09-11 09:53] VITALS: BP 104/66; PULSE 77; RESP 12; TEMP 36.2; O2SAT 94
[2021-09-11 10:20] VITALS: BP 112/74; PULSE 71; RESP 16; O2SAT 95
--- NOTE | 2021-09-11 10:33 | P.OP_ITS ---
Procedure Note - Detailed Date of Procedure 09/11/21 Pre-op Diagnosis Incarcerated recurrent ventral hernia Post-op Diagnosis same Procedure Performed Repair incarcerated recurrent ventral hernia with 6.[address] underlay mesh Surgeon Tam Fraser MD Technology Services Manager Allyn MITCHELL Anesthesia general (G IV S) and local (0.5% Marcaine with epinephrine) Indications Patient previously had repair of a small primary ventral hernia just above the umbilicus as well as a small umbilical hernia. She has developed a tender recurrent hernia with palpable incarcerated hernia. She is taken to surgery now for repair. Findings Recurrent small ventral hernia with incarcerated properitoneal fat. Defect about 1 cm in length. Description of Procedure Patient was taken to surgery and general anesthesia, G IV S, was introduced. The abdomen was prepped and draped. An ellipse was drawn around the previous supraumbilical curved scar. Local anesthetic was infiltrated into the area of the anticipated incision and in the subcutaneous. The old scar was then excised and discarded. Dissection was carried down through the subcutaneous. Deeper in the subcutaneous there was some scar tissue. Eventually we came down to the palpable nodule which was the incarcerated recurrent hernia. I carefully dissected the umbilical skin off the fascia. The area of the umbilical hernia repair was noted. It was quite close to the recurrent hernia. I trimmed some of the scar tissue off of the umbilical skin. I trimmed some hernia sac from the edges of the hernia defect. Some additional scar tissue was freed from the abdominal wall fascia. I had to slightly enlarge the hernia defect to allow the mesh to be placed. A 6.[address] mesh was chosen. This would cover both the previous umbilical hernia repair as well as the recurrent hernia. With the Ventralex ST mesh positioned appropriately under the hernia defect, cranial and caudal transfascial sutures of 0 Ethibond were placed. These sutures were placed in such a fashion as to advance the edges of the hernia defect towards 1 another once they were tied. The sutures were then tied and had the desired effect. The straps to the mesh were then cut. Right and left lateral transfascial sutures of 0 Ethibond were then placed. The hernia defect was then closed with 2 [id number] mattress sutures of 0 Ethibond. Each of these sutures incorporated a bit of mesh as well. The repair looked good. Additional local was infiltrated all around the area of the repair. The umbilical skin was then sutured to the fascia with interrupted 3-0 Vicryl suture. Some subcutaneous deep interrupted 3-0 Vicryl sutures were placed. The skin was then loosely approximated with interrupted 3-0 and 4-0 Vicryl subcuticular suture. Finally the skin was closed with a running 4-0 Monocryl skin suture. The wound was dressed with Exofin surgical adhesive. The patient was awakened and taken to outpatient surgery in good condition. Sponge and needle counts were correct x2. Implants 6.[address] mesh Estimated Blood Loss -5 Drains No Packing No Pathology none sent Complications No immediate complications Condition stable Disposition same day
[2021-09-11 10:50] VITALS: BP 116/69; PULSE 70; RESP 16
[2021-09-11 11:20] VITALS: BP 112/70; PULSE 69; RESP 16
== END 2021-09-11 11:41 | disposition home or self-care (01) ==
PROVIDERS: PCP Family Medicine; Visit Provider Surgery
PROC: 0WQF0ZZ Repair Abdominal Wall, Open Approach (ICD-10-PCS; CPT 49566; principal; 2021-09-11 08:30)
DX: K43.0 Incisional hernia with obstruction, without gangrene (principal); D64.9 Anemia, unspecified; F41.9 Anxiety disorder, unspecified; I10 Essential (primary) hypertension; E78.2 Mixed hyperlipidemia; I48.0 Paroxysmal atrial fibrillation; G25.81 Restless legs syndrome; G90.50 Complex regional pain syndrome I, unspecified; M06.09 Rheumatoid arthritis without rheumatoid factor, multiple sites; Z86.73 Personal history of transient ischemic attack (TIA), and cerebral infarction without residual deficits; Z95.0 Presence of cardiac pacemaker; Z79.82 Long term (current) use of aspirin; Z79.51 Long term (current) use of inhaled steroids
CPT/HCPCS: 49566; 49568; A9270; C1781; J1885; J2250; J2704; J3010; J7120

== ENCOUNTER 2021-09-12 02:13 | Inpatient (IN) | payer MEDICARE, MEDICAID, SELFPAY ==
[2021-09-12] VITALS (17 sets, daily range): BP systolic 86–119; BP diastolic 37–81; PULSE 70–75; RESP 9–20; TEMP 35.6–36.9; O2SAT 93–99; BMI 29.2
--- NOTE | ~2021-09-12 | CT_ITS ---
EXAMINATION: CT abdomen pelvis w con DATE: 09/12/2021 03:48 INDICATION: Status post hernia repair one day prior. TECHNIQUE: Computed tomography (CT) of the abdomen and pelvis was performed with 100 cc Omnipaque 350 intravenous contrast. The dose-length product was 747.96 mGy-cm. Automated exposure control and iter ative reconstruction technique were employed. COMPARISON: CT dated 08/05/2017. FINDINGS: There is anterior abdominal wall stranding near the umbilicus with fluid and gas. There is small amount of free air adjacent to this location, all consistent with recent surgery. The liver, spleen, pancreas, adrenal glands are unremarkable. There are small bilateral renal cysts. Gallbladder is present. Small subcentimeter hypodensity of the liver, likely a cyst. Nonobstructive bowel gas pattern. Colonic diverticulosis without evidence for diverticulitis. Gallbla dder is present. Normal appendix. No abnormal pelvic masses or fluid collections. There is an infrare nal IVC filter. There are surgical changes consistent with posterior spinal fusion at L2-L5. There is a spinal cord stimulator with tip at T10. IMPRESSION: 1. Postoperative changes anterior abdominal wall consisting of fatty infiltration, fluid and gas with small amount of free intraperitoneal air. No evidence for abscess. Reviewed, dictated and finalized at location B. WORKER APPRENTICE IMPRESSION: 1. Postoperative changes anterior abdominal wall consisting of fatty infiltrati on, fluid and gas with small amount of free intraperitoneal air. No evidence fo r abscess.
--- NOTE | 2021-09-12 02:22 | ECG_ITS ---
Measurements Intervals [place] Rate: 70 P: 163 RI: 198 QRS: -51 QRSD: 155 T: 12 QT: 458 QTc: 494 Interpretive Statements ELECTRONIC ATRIAL PACEMAKER ELECTRONIC VENTRICULAR PACEMAKER BASELINE ARTIFACT- I, III, AVR, AVL NO FURTHER INTERPRETATION IS POSSIBLE ATYPICAL ECG Electronically Signed On 09-12-2021 5:49:13 SPECIAL AGENT SECRET SERVICE by Rangel Moe D.O.
[2021-09-12] MEDS: SODIUM CHLORIDE 0.9% IV 1,000 ML 999 ML IV CONT (02:33)
[2021-09-12] MEDS: MORPHINE SULFATE (*CRX) 4 MG/ML INJ IV PUSH ×6 (02:34→16:34)
--- NOTE | 2021-09-12 02:34 | ED.ABDPAIN ---
HPI - Abdominal Pain General Chief Complaint: Abdominal Pain Stated Complaint: ABD PAIN SURGERY HERE YESTERDAY Time Seen by Provider: 09/12/21 02:15 Source: patient History of Present Illness HPI narrative: Patient presents with diffuse abdominal pain. Patient reports she had a hernia repair done yesterday initially doing well but has had increased pain since going home reports associated nausea but denies any vomiting shorts has not had a bowel movement since her surgery. Pain is constant, worse with any sort of body movement radiates throughout her entire abdomen is achy. She denies any urinary symptoms Related Data Home Medications Medication Instructions Recorded Confirmed aspirin 81 mg PO DAILY 04/03/20 09/11/21 folic acid 1 mg tablet 1 mg PO DAILY 02/19/21 09/06/21 methotrexate sodium 2.5 mg tablet 12.5 mg PO WEEKLY tablet 02/19/21 09/06/21 metoprolol tartrate 50 mg tablet 50 mg PO Q12H 02/19/21 09/11/21 Enbrel SureClick 50 mg SUBCUT WEEKLY 09/04/21 09/06/21 acetaminophen [Tylenol Arthritis 650 mg PO BID 09/04/21 09/06/21 Pain] multivitamin 1 tablet PO DAILY 09/04/21 09/06/21 Allergies Allergy/AdvReac Type Severity Reaction Status Date / Time meclizine Allergy Severe Rash Verified 09/11/21 08:30 carbamazepine [From Tegretol] Allergy Intermediate Blister Verified 09/11/21 08:30 Cephalosporins Allergy Mild RASH Verified 09/11/21 08:30 clarithromycin Allergy Mild RASH Verified 09/11/21 08:30 imipramine Allergy Mild RASH Verified 09/11/21 08:30 Penicillins Allergy Mild HIVES Verified 09/11/21 08:30 codeine Allergy Unknown Vomiting Verified 09/11/21 08:30 cefuroxime [From Ceftin] Allergy Hives Verified 09/11/21 08:30 hydromorphone [From Dilaudid] Allergy Hives Verified 09/11/21 08:30 oxycodone [From Percocet] Allergy Hives Verified 09/11/21 08:30 prochlorperazine Allergy Swelling Verified 09/11/21 08:30 [From Compazine] of Lip/Tongue/Throat propoxyphene [From Darvon] Allergy Hives Verified 09/11/21 08:30 propranolol [From Inderal LA] Allergy Rash Verified 09/11/21 08:30 diphenhydramine AdvReac Vomiting Verified 09/11/21 08:30 [From Benadryl] hydrocodone [From Vicodin] AdvReac Vomiting Verified 09/11/21 08:30 Review of Systems Review of Systems: CONSTITUTIONAL: Denies fever, chills, or sweats. EYES: Denies visual changes, redness, or discharge. ENT: Denies rhinorrhea, congestion, sore throat, or otalgia. CARDIOVASCULAR: Denies chest pain, palpitations, or edema. RESPIRATORY: Denies cough or dyspnea. GASTROINTESTINAL: Denies abdominal pain, nausea, vomiting, or diarrhea. GENITOURINARY: Denies dysuria or hematuria. SKIN: Denies rash or itching. MUSCULOSKELETAL: Denies back pain, joint pain, or myalgia. NEUROLOGIC: Denies headache, numbness, dizziness, or weakness. PSYCHIATRIC: Denies anxiety or depression. All systems reviewed & are unremarkable except as noted in HPI and below PMFSH Past Medical History Medical History A-fib Abdominal lump Allergic dermatitis Anemia, unspecified Anxiety about health Ataxia Atopic dermatitis Atypical face pain BMI 26.0-26.9,adult BMI 27.0-27.9,adult BMI 27.0-27.9,adult BMI 28.0-28.9,adult BMI 28.0-28.9,adult Bradycardia Confusion D-dimer, elevated Degenerative joint disease of cervical and lumbar spine Dizziness Essential (primary) hypertension Foreign body of toe Fracture of second toe, left, closed Groin hematoma Groin pain Headache Hyponatremia Left ear pain Lipid disorder Mixed hyperlipidemia Paroxysmal atrial fibrillation Restless leg syndrome Rheumatoid arthritis, seronegative, multiple sites RSD (reflex sympathetic dystrophy) TIA (transient ischemic attack) Surgical History Surgical History History of arthroscopic knee surgery History of back surgery History of permanent cardiac pacemaker placement Status post surgical removal of both
[2021-09-12 02:51] LABS: Basophils Percent Auto 0.6 % (0.2-1.2); Eosinophils Percent Auto 0.6 % (0-4.4); Hematocrit 34.1 % (37.0-47.0); Hemoglobin 11.6 g/dL (12.0-15.0); Immature Granulocyte Absolute 0.01 K/mm3 (0.00-0.031); Immature Granulocyte Percent A 0.2 % (0-0.5); Lactic Acid Reflex 1.4 mmol/L (0.7-2.1); Lymphocytes Absolute Auto 0.84 K/mm3 (0.9-3.2); Lymphocytes Percent Auto 15.9 % (18.3-44.2); Mean Corpuscular Hemoglobin 35.5 pg (26-34); Mean Corpuscular Volume 104.3 fl (80-100); Mean Platelet Volume 9.4 fl (7.4-10.4); Monocytes Absolute Auto 0.4 K/mm3 (0.1-0.6); Monocytes Percent Auto 7.8 % (2.6-8.5); Neutrophils Percent Auto 74.9 % (45.5-73.1); Platelet Count Result 155 k/mm3 (150-375); Red Blood Count 3.27 M/mm3 (4.2-5.4); Red Cell Distribution Width 13.6 % (11.5-14.5); White Blood Count 5.3 K/mm3 (4.5-10.0)
[2021-09-12 03:25] LABS: Alanine Aminotransferase 14 U/L (4-35); Albumin Level 3.7 g/dL (3.5-5.1); Alkaline Phosphatase 63 U/L (38-126); Anion Gap 4 mmol/L (8-16); Aspartate Amino Transferase 22 U/L (14-36); Bilirubin,Total 0.3 mg/dL (0.2-1.3); Blood Urea Nitrogen 13 mg/dL (7-17); Calcium 8.6 mg/dL (8.4-10.2); Carbon Dioxide 29 mmol/L (22-30); Chloride 107 mmol/L (98-107); Estimated CRCL calculation 77 ml/min; Estimated Glomerular Filt Rate > 60; Glucose 100 mg/dL (65-110); Lipase 173 U/L (23-300); Potassium 4.1 mmol/L (3.4-5.0); Sodium 140 mmol/L (137-145)
[2021-09-12 04:06] LABS: Add Urine Microscopic? NO; Appearance Urine Clear (Clear); Bilirubin Urine Negative (Negative); Blood Urine Negative (Negative); Color Urine Straw (Yellow); Glucose Urine UA Negative (Negative); Ketones Urine Negative (Negative); Leukocyte Esterase Ur Negative LEU/UL (Negative); Nitrate Urine Negative (Negative); Protein Urine Negative (Negative); Urobilinogen Urine Negative mg/dL (<2.0)
[2021-09-12 04:13] LABS: Specific Grav Ur 1.034 (1.001-1.035)
--- NOTE | 2021-09-12 06:33 | ADMGEN ---
This patient, Naye Hart, was admitted to [address] [place] [address] Room 316-02. Patient/family oriented to hospital policies and general routines including ID bracelet, bed and alarms, visiting hours, pain management, procedures, bathroom and other care routines, personal items, smoking policy, room service/diet, and visiting hours. Information on how to activate the Rapid Response Team has been discussed. Patient/Family are encouraged to report perceived risks to care and to ask questions if they do not understand what they are told or what they should do.
[2021-09-12] MEDS: SODIUM CHLORIDE 0.9% IV 1,000 ML 125 ML IV CONT ×2 (06:52→14:49)
[2021-09-12] MEDS: METOPROLOL TARTRATE 50 MG TAB PO ×2 (12:09→21:13)
[2021-09-12] MEDS: rOPINIRole HCL 1 MG TABLET PO ×3 (12:09→21:10)
[2021-09-12] MEDS: ROSUVASTATIN 10 MG TABLET 20 MG PO (12:09)
[2021-09-12] MEDS: MULTIVITAMINS THERAPEUTIC TAB (*BKC) 1 TABLET PO (12:09)
[2021-09-12] MEDS: PANTOPRAZOLE 40 MG TABLET PO (12:09)
[2021-09-12] MEDS: MONTELUKAST SODIUM 10 MG TABLET PO (12:10)
[2021-09-12] MEDS: ONDANSETRON INJ 4 MG/2 ML VIAL IV PUSH (13:18)
--- NOTE | 2021-09-12 16:25 | PM.IMHP ---
H&P: HPI History of Present Illness Date/Time: 09/12/21 16:25 Chief Complaint: Postop pain Narrative: Patient is a 56-year-old woman who developed a recurrent ventral hernia. She had repair of a periumbilical incarcerated recurrent ventral hernia with underlay mesh yesterday, 09/11/2021. As is usually the case after this surgery, patient went home feeling well. Last night she developed severe pain. This did coincide with her local anesthetic wearing off. She called me on the telephone. I discussed this with her and there were no overt signs of surgical complication but she was having severe pain and I advised she come to the emergency room. In the emergency room she was thoroughly evaluated. CBC, BMP, protime, UA were all normal. Patient did not have a Hernandez catheter during the surgery. She also had a CT scan of the abdomen and pelvis with IV contrast in the emergency room. This was also negative other than postsurgical changes. Patient has been admitted as an observation patient for postoperative pain control. She has numerous allergies but has agreed to take morphine and this has been improving her discomfort. Currently she has no particular complaints. No nausea or vomiting. Pain is improved from before. Review of Systems Review of Systems: All systems reviewed & are unremarkable except as noted in HPI and below Constitutional: Constitutional: Denies chills and Denies fever(s) Cardiovascular: Cardiovascular: Denies chest pain, Denies diaphoresis, Denies dyspnea and Denies paroxysmal nocturnal dyspnea Respiratory: Respiratory: Denies chest congestion, Denies cough and Denies dyspnea Gastrointestinal: Gastrointestinal: Reports as per HPI, Reports abdominal pain, Denies heartburn, Denies nausea and Denies vomiting Integumentary/Breasts: Skin/Breast: Denies lesions and Denies rash [facility] Past Medical History Medical History A-fib Abdominal lump Allergic dermatitis Anemia, unspecified Anxiety about health Ataxia Atopic dermatitis Atypical face pain BMI 26.0-26.9,adult BMI 27.0-27.9,adult BMI 27.0-27.9,adult BMI 28.0-28.9,adult BMI 28.0-28.9,adult Bradycardia Confusion D-dimer, elevated Degenerative joint disease of cervical and lumbar spine Dizziness Essential (primary) hypertension Foreign body of toe Fracture of second toe, left, closed Groin hematoma Groin pain Headache Hyponatremia Left ear pain Lipid disorder Mixed hyperlipidemia Paroxysmal atrial fibrillation Restless leg syndrome Rheumatoid arthritis, seronegative, multiple sites RSD (reflex sympathetic dystrophy) TIA (transient ischemic attack) Surgical History Surgical History History of arthroscopic knee surgery History of back surgery History of permanent cardiac pacemaker placement Status post surgical removal of both fallopian tubes Family History Family History Grandparent Family history of blood dyscrasia Family history of Alzheimer's disease Family history of malignant neoplasm of cervix Mother Family history of Alzheimer's disease Father Family history of lung cancer Sibling No problems noted. Other Diabetes mellitus Family history of allergic disorder Family history of kidney disease Family history of malignant neoplasm of thyroid Social History Social History Smoking status: Never smoker Second hand tobacco smoke exposure: Yes Alcohol intake: former Substance use: never Substance use type: does not use Additional occupation/education comments: disabled Gender identity (if verbalized by the patient): Female Spiritual care concerns: No Meds Home Medications and Allergies Home Medications Medication Instructions Recorded Confirmed Type aspirin 81 mg PO
[2021-09-12] MEDS: ACETAMINOPHEN 325 MG TABLET 650 MG PO (16:32)
[2021-09-12] MEDS: SUCRALFATE 1 GM TABLET PO (16:33)
[2021-09-12] MEDS: AZELASTINE HCL NASAL 0.1% 137 MCG/SPR 30 ML BTL 2 SPRAY NASAL (18:01)
--- NOTE | 2021-09-12 19:14 | PC.NURSE ---
BP checked at 1845 entered for 1600, pt feeling fine, asymptomatic
[2021-09-12] MEDS: DULoxetine HCL 60 MG CAPSULE.DR PO (21:14)
[2021-09-12] MEDS: DULoxetine HCL 30 MG CAPSULE.DR PO (21:15)
[2021-09-12] MEDS: ENOXAPARIN 30 MG/0.3 ML SYRINGE SUB-Q (22:17)
[2021-09-12] MEDS: SENNA/DOCUSATE SODIUM TABLET 2 TAB PO (22:18)
[2021-09-12] MEDS: MORPHINE SULFATE (*CRX) 2 MG/ML INJ IV PUSH (22:26)
[2021-09-13] MEDS: ONDANSETRON INJ 4 MG/2 ML VIAL IV PUSH (02:20)
[2021-09-13] MEDS: traMADol HCL (*CRX) 50 MG TABLET PO ×2 (02:23→18:20)
[2021-09-13] MEDS: MORPHINE SULFATE (*CRX) 2 MG/ML INJ IV PUSH ×4 (03:57→22:47)
[2021-09-13 05:56] VITALS: BP 102/42; PULSE 69; RESP 16; TEMP 36.3; O2SAT 100
[2021-09-13 06:40] LABS: Anion Gap 3 mmol/L (8-16); Blood Urea Nitrogen 9 mg/dL (7-17); Calcium 8.7 mg/dL (8.4-10.2); Carbon Dioxide 29 mmol/L (22-30); Chloride 105 mmol/L (98-107); Estimated CRCL calculation 88 ml/min; Estimated Glomerular Filt Rate > 60; Glucose 111 mg/dL (65-110); Potassium 4.1 mmol/L (3.4-5.0); Sodium 137 mmol/L (137-145)
[2021-09-13 06:42] LABS: Hematocrit 33.7 % (37.0-47.0); Hemoglobin 11.3 g/dL (12.0-15.0); Mean Corpuscular HGB Conc 33.5 g/dl (32-36); Mean Corpuscular Hemoglobin 35.2 pg (26-34); Mean Platelet Volume 9.4 fl (7.4-10.4); Platelet Count Result 156 k/mm3 (150-375); Red Blood Count 3.21 M/mm3 (4.2-5.4); Red Cell Distribution Width 13.2 % (11.5-14.5); White Blood Count 4.4 K/mm3 (4.5-10.0)
[2021-09-13 08:00] VITALS: BP 129/72; PULSE 71; RESP 18; TEMP 36.1; O2SAT 99
[2021-09-13] MEDS: ACETAMINOPHEN 325 MG TABLET 650 MG PO ×2 (08:45→17:19)
[2021-09-13 08:46] VITALS: PULSE 76
[2021-09-13] MEDS: ENOXAPARIN 30 MG/0.3 ML SYRINGE SUB-Q ×2 (08:46→20:36)
[2021-09-13] MEDS: METOPROLOL TARTRATE 50 MG TAB PO ×2 (08:46→20:36)
[2021-09-13] MEDS: MULTIVITAMINS THERAPEUTIC TAB (*BKC) 1 TABLET PO (08:46)
[2021-09-13] MEDS: SUCRALFATE 1 GM TABLET PO ×2 (08:46→17:19)
[2021-09-13] MEDS: MONTELUKAST SODIUM 10 MG TABLET PO (08:46)
[2021-09-13] MEDS: TRIAMCINOLONE ACET 0.5% CREAM 15 GM TUBE 1 APPLIC TOPICAL (08:46)
[2021-09-13] MEDS: ROSUVASTATIN 10 MG TABLET 20 MG PO (08:46)
[2021-09-13] MEDS: ASPIRIN 81 MG CHEWABLE TABLET PO (08:46)
[2021-09-13] MEDS: AZELASTINE HCL NASAL 0.1% 137 MCG/SPR 30 ML BTL 2 SPRAY NASAL ×2 (08:46→17:19)
[2021-09-13] MEDS: PANTOPRAZOLE 40 MG TABLET PO (08:46)
[2021-09-13] MEDS: polyethylene glycoL 3350 17 GM POWD.PACK PO (08:46)
[2021-09-13] MEDS: rOPINIRole HCL 1 MG TABLET PO ×4 (08:48→20:37)
[2021-09-13 14:00] VITALS: BP 114/69; PULSE 70; RESP 16; TEMP 35.6; O2SAT 96
[2021-09-13 15:08] VITALS: BMI 29.2
--- NOTE | 2021-09-13 15:38 | PM.PNGS ---
Progress Note: A&P Assessment and Plan (1) Recurrent ventral hernia with obstruction: Code(s): K43.0 - Incisional hernia with obstruction, without gangrene Status: Acute Assessment and Plan: Postop day 2 status post repair with underlay mesh. Healing well. No evidence of complications or problems. No sign of recurrent hernia. (2) Abdominal pain: Qualifiers: Abdominal location: generalized Qualified Code(s): R10.84 - Generalized abdominal pain Code(s): R10.9 - Unspecified abdominal pain Status: Acute Assessment and Plan: Patient continues to require IV morphine for pain control. Allergic tube both hydrocodone and oxycodone so will not try either of those medications. Reports tramadol ineffective although I have encouraged her to keep trying it, using the morphine as a backup. Subjective Subjective Date/Time Seen: 09/13/21 15:38 Post Op day: 2 Patient reports: still having pain (Reports tramadol in effective for pain relief. Still using morphine), tolerating a regular diet and afebrile Exam GI: Inspection: non-distended and incision (Dry, healing. Looks good) GI Palp: Yes Soft to palpation, Yes Tenderness to palpation present (GI) (At incision), No Hernia present and No Palpable mass present Auscultation: normal bowel sounds Objective Data Vital Signs Vital Signs: Vital Signs - 24 hr 09/12/21 16:00 09/12/21 21:13 09/12/21 22:00 Temperature 36.8 C 36.1 C L Pulse Rate 70 70 72 Respiratory Rate 20 16 Blood Pressure 86/37 L 104/60 Pulse Oximetry 98 93 09/13/21 05:56 09/13/21 08:00 09/13/21 08:46 Temperature 36.3 C L 36.1 C L Pulse Rate 69 71 76 Respiratory Rate 16 18 Blood Pressure 102/42 L 129/72 Pulse Oximetry 100 99 09/13/21 14:00 Temperature 35.6 C L Pulse Rate 70 Respiratory Rate 16 Blood Pressure 114/69 Pulse Oximetry 96 Intake/Output Intake/Output: Intake & Output 09/10/21 09/11/21 09/12/21 09/13/21 23:59 23:59 23:59 23:59 Intake Total 2830 790 Output Total 1350 Balance 1480 790 Meds/Results Medications: Active Medications Generic Name Dose Route Start Last Admin Trade Name Freq PRN Reason Stop Dose Admin Acetaminophen 650 mg 09/12/21 17:00 09/13/21 08:45 Acetaminophen 325 Mg Tablet PO 650 mg BID WATSON Administration Albuterol 1 puff 09/12/21 10:52 Albuterol Sulfate (*Sp) Aerosol 1 Puff INHALATION Q4H PRN shortness of breath or wheezing Aspirin 81 mg 09/13/21 09:00 09/13/21 08:46 Aspirin 81 Mg Chewable Tablet PO 81 mg DAILY WATSON Administration Azelastine HCl 2 spray 09/12/21 17:00 09/13/21 08:46 Azelastine Hcl Nasal 0.1% 137 Mcg/Spr 30 Ml Btl NASAL 2 spray BID WATSON Administration Diclofenac Sodium 0 applic 09/12/21 10:55 Diclofenac Sodium 1% 100 Gm Gel (*Bkc) TOPICAL QID PRN Pain Duloxetine HCl 60 mg 09/12/21 21:00 09/12/21 21:14 Duloxetine Hcl 60 Mg Capsule. PO 60 mg HS WATSON Administration Duloxetine HCl 30 mg 09/12/21 21:00 09/12/21 21:15 Duloxetine Hcl 30 Mg Capsule. PO 30 mg HS WATSON Administration Enoxaparin Sodium 30 mg 09/12/21 21:00 09/13/21 08:46 Enoxaparin 30 Mg/0.3 Ml Syringe SUB-Q 30 mg Q12HR WATSON Administration Epinephrine HCl 0.3 mg 09/12/21 11:22 Epinephrine Hcl Inj 1 Mg/Ml Ampul IM ONCE PRN Allergic Reaction Folic Acid 1 mg 09/12/21 11:10 09/13/21 08:43 Folic Acid 1 Mg Tablet PO Not Given DAILY WATSON Methotrexate 12.5 mg 09/18/21 09:00 Methotrexate 2.5 Mg Tab (*Chemo) PO WEEKLY WATSON Metoprolol Tartrate 50 mg 09/12/21 10:55 09/13/21 08:46 Metoprolol Tartrate 50 Mg Tab PO 50 mg Q12HR WATSON Administration Montelukast Sodium 10 mg 09/12/21 11:15 09/13/21 08:46 Montelukast Sodium 10 Mg Tablet PO 10 mg DAILY WATSON Administration Morphine Sulfate 4 mg 09/12/21 04:54 09/12/21 16:34 Morphine Sulfate (*Crx) 4 Mg/Ml Inj IV PUSH 4 mg
[2021-09-13 20:36] VITALS: PULSE 71
[2021-09-13] MEDS: SENNA/DOCUSATE SODIUM TABLET 2 TAB PO (20:36)
[2021-09-13] MEDS: DULoxetine HCL 60 MG CAPSULE.DR PO (20:36)
[2021-09-13] MEDS: DULoxetine HCL 30 MG CAPSULE.DR PO (20:36)
[2021-09-13 21:02] VITALS: BP 104/62; PULSE 70; RESP 18; TEMP 36.7; O2SAT 97
[2021-09-14 06:00] VITALS: BP 128/80; PULSE 70; RESP 18; TEMP 35.8; O2SAT 97
[2021-09-14] MEDS: ONDANSETRON INJ 4 MG/2 ML VIAL IV PUSH ×2 (06:21→13:35)
[2021-09-14] MEDS: MONTELUKAST SODIUM 10 MG TABLET PO (09:34)
[2021-09-14] MEDS: ACETAMINOPHEN 325 MG TABLET 650 MG PO (09:34)
[2021-09-14] MEDS: PANTOPRAZOLE 40 MG TABLET PO (09:34)
[2021-09-14] MEDS: rOPINIRole HCL 1 MG TABLET PO ×2 (09:34→13:07)
[2021-09-14 09:35] VITALS: PULSE 70
[2021-09-14] MEDS: METOPROLOL TARTRATE 50 MG TAB PO (09:35)
[2021-09-14] MEDS: SUCRALFATE 1 GM TABLET PO (09:35)
[2021-09-14] MEDS: ROSUVASTATIN 10 MG TABLET 20 MG PO (09:35)
[2021-09-14] MEDS: ASPIRIN 81 MG CHEWABLE TABLET PO (09:35)
[2021-09-14] MEDS: MULTIVITAMINS THERAPEUTIC TAB (*BKC) 1 TABLET PO (09:36)
[2021-09-14] MEDS: ENOXAPARIN 30 MG/0.3 ML SYRINGE SUB-Q (09:39)
[2021-09-14] MEDS: AZELASTINE HCL NASAL 0.1% 137 MCG/SPR 30 ML BTL 2 SPRAY NASAL (09:39)
[2021-09-14] MEDS: polyethylene glycoL 3350 17 GM POWD.PACK PO (09:40)
[2021-09-14] MEDS: TRIAMCINOLONE ACET 0.5% CREAM 15 GM TUBE 1 APPLIC TOPICAL (09:40)
[2021-09-14] MEDS: BISACODYL 10 MG SUPPOSITORY RECTAL (13:07)
[2021-09-14 14:00] VITALS: BP 119/73; PULSE 70; RESP 14; TEMP 36.1; O2SAT 98
--- NOTE | 2021-09-14 14:59 | PM.DS ---
DS: Admitting Diagnosis Discharge Date 09/14/2021 Admitting Diagnosis postoperative pain status post repair of recurrent ventral incisional hernia near umbilicus DS: Discharge Diagnosis Discharge Diagnosis (1) Abdominal pain: Onset Date: ~09/12/21 Qualifiers: Abdominal location: generalized Qualified Code(s): R10.84 - Generalized abdominal pain Code(s): R10.9 - Unspecified abdominal pain Status: Acute Assessment and Plan: this was the main reason for the patient's observation and then inpatient stay. She had surgery on 09/11. Went home but has limited capabilities of taking oral pain medication because of multiple adverse reactions and allergies to pain medications. She reported back to the ED the night following surgery. See ED and H&P notes. Patient had uneventful hospital course and gradually improved. She is discharged on 09/14 taking only Tylenol and to complaining just of some mild pain on either side of her transverse incision near the umbilicus. (2) GERD (gastroesophageal reflux disease): Onset Date: Unknown Qualifiers: Esophagitis presence: esophagitis presence not specified Qualified Code(s): K21.9 - Gastro-esophageal reflux disease without esophagitis Code(s): K21.9 - Gastro-esophageal reflux disease without esophagitis Status: Acute Assessment and Plan: Chronically on PPI. Will continue that at home. (3) Recurrent ventral hernia with obstruction: Code(s): K43.0 - Incisional hernia with obstruction, without gangrene Status: Acute Assessment and Plan: Had repair on 09/11. Home on tramadol but seemed to have more pain than typical and return to the ER. Workup including CT scan showed nothing unusual and patient was admitted to observation an inpatient for pain control. This gradually improved. (4) Healing of postoperative wound: Onset Date: ~09/11/21 Status: Acute Assessment and Plan: patient's wound look good both on admission and discharge with no signs of drainage or infection. (5) BMI 28.0-28.9,adult: Onset Date: Unknown Code(s): Z68.28 - Body mass index [BMI] 28.0-28.9, adult Status: Acute Assessment and Plan: Patient mildly overweight encouraged her to continue to work to keep her weight at or below current levels. DS: Summary Hospital Course Hospital Course: She reported back to the ED the night following surgery. ( outpatient recurrent ventral incisional hernia repair near umbilicus). See ED and H&P notes. Patient had uneventful hospital course and gradually improved. she required IV morphine for pain control for least the 1st 24 hours of this stay. She has allergies to multiple oral pain medications which have been tried the past because of her chronic pain history. This limited the ability to control her pain as an outpatient. She is discharged on 09/14 taking only Tylenol and to complaining just of some mild pain on either side of her transverse incision near the umbilicus. she had 2 bowel movements after duplex suppository on the day of discharge. She states she normally has a bowel movement once a day. Our since she was been taking pain medication this has been somewhat off. Encouraged her to meat pickler some Dulcolax suppositories and take 1 in the morning if at any time the day prior she is not does not have a normal bowel movement. Patient already has some sublingual Zofran at home which we use for nausea. She knows she can call the office Thursday to get a refill on that if she does not have enough on she has continued to have intermittent episodes of nausea. She currently has a appointment to see Dr. Fraser follow-up in the office on Thursday but I told her that if she is doing well she could call the office or early Thursday and see if it is reasonable to move her back at least 1 week since we have seen her recently in the hospital. Status at Discharge Cognit
== END 2021-09-14 16:54 | disposition home or self-care (01) | DRG 948 ==
LOC: ANHED 04:54 → ANH3MEDSUR 05:40
PROVIDERS: Admitting Provider Surgery; Emergency Provider Emergency Medicine; PCP Family Medicine; Visit Provider Surgery
DX: G89.18 Other acute postprocedural pain (principal); Z86.73 Personal history of transient ischemic attack (TIA), and cerebral infarction without residual deficits; I48.0 Paroxysmal atrial fibrillation; M19.90 Unspecified osteoarthritis, unspecified site; Z79.82 Long term (current) use of aspirin; Z79.891 Long term (current) use of opiate analgesic; Z79.899 Other long term (current) drug therapy; Z79.1 Long term (current) use of non-steroidal anti-inflammatories (NSAID); R10.9 Unspecified abdominal pain; K21.9 Gastro-esophageal reflux disease without esophagitis; E78.2 Mixed hyperlipidemia
CPT/HCPCS: 36415; 74177; 80048; 80053; 81003; 83605; 83690; 85025; 85027; 93005; 96361; 96372; 96374; 96375; 96376; 99285; A9270; C1781; G0378; J1650; J1885; J2250; J2270; J2405; J2704; J3010; J7030; J7120; Q9967

== ENCOUNTER 2021-09-27 15:08 | Emergency (ER) | payer MEDICARE, MEDICAID, SELFPAY ==
[2021-09-27 15:12] VITALS: BP 124/92; PULSE 98; RESP 18; TEMP 36.6; O2SAT 99
[2021-09-27] MEDS: hydrOXYzine HCL 25 MG TABLET PO (15:44)
[2021-09-27] MEDS: FAMOTIDINE 20 MG TABLET PO (15:44)
--- NOTE | 2021-09-27 15:44 | ED.ALLEREA ---
HPI - Allergic Reaction General Chief complaint: Allergic Reaction Stated complaint: allergic reaction, chest tightening Time Seen by Provider: 09/27/21 15:23 History of Present Illness HPI narrative: 56-year-old female presents to the emergency room with acute onset of allergic reaction following allergy testing at 1:00 this afternoon. Patient states that she has hives on both of her arms and her chest. Patient reports acute onset of shortness of breath and difficulty breathing. Denies wheezing. Related Data Home Medications Medication Instructions Recorded Confirmed aspirin 81 mg PO DAILY 04/03/20 09/17/21 folic acid 1 mg tablet 1 mg PO DAILY 02/19/21 09/17/21 methotrexate sodium 2.5 mg tablet 12.5 mg PO WEEKLY tablet 02/19/21 09/17/21 metoprolol tartrate 50 mg tablet 50 mg PO Q12H 02/19/21 09/17/21 Enbrel SureClick 50 mg SUBCUT WEEKLY 09/04/21 09/17/21 acetaminophen [Tylenol Arthritis 650 mg PO BID 09/04/21 09/17/21 Pain] multivitamin 1 tablet PO DAILY 09/04/21 09/17/21 Ubrelvy 100 mg PO ONCE PRN 09/12/21 09/17/21 duloxetine 30 mg PO HS 09/12/21 09/17/21 duloxetine [Cymbalta] 60 mg PO HS 09/12/21 09/17/21 mupirocin 1 applic TOPICAL BID PRN 09/12/21 09/17/21 Allergies Allergy/AdvReac Type Severity Reaction Status Date / Time meclizine Allergy Severe Rash Verified 09/27/21 07:43 carbamazepine [From Tegretol] Allergy Intermediate Blister Verified 09/27/21 07:43 Cephalosporins Allergy Mild RASH Verified 09/27/21 07:43 clarithromycin Allergy Mild RASH Verified 09/27/21 07:43 imipramine Allergy Mild RASH Verified 09/27/21 07:43 Penicillins Allergy Mild HIVES Verified 09/27/21 07:43 codeine Allergy Unknown Vomiting Verified 09/27/21 07:43 cefuroxime [From Ceftin] Allergy Hives Verified 09/27/21 07:43 hydromorphone [From Dilaudid] Allergy Hives Verified 09/27/21 07:43 oxycodone [From Percocet] Allergy Hives Verified 09/27/21 07:43 prochlorperazine Allergy Swelling Verified 09/27/21 07:43 [From Compazine] of Lip/Tongue/Throat propoxyphene [From Darvon] Allergy Hives Verified 09/27/21 07:43 propranolol [From Inderal LA] Allergy Rash Verified 09/27/21 07:43 diphenhydramine AdvReac Vomiting Verified 09/27/21 07:43 [From Benadryl] hydrocodone [From Vicodin] AdvReac Vomiting Verified 09/27/21 07:43 Review of Systems Review of Systems: CONSTITUTIONAL: Denies fever, chills, or sweats. EYES: Denies visual changes, redness, or discharge. ENT: Denies rhinorrhea, congestion, sore throat, or otalgia. CARDIOVASCULAR: Denies chest pain, palpitations, or edema. RESPIRATORY: Denies cough or dyspnea. GASTROINTESTINAL: Denies abdominal pain, nausea, vomiting, or diarrhea. GENITOURINARY: Denies dysuria or hematuria. SKIN: Urticaria on bilateral arms. MUSCULOSKELETAL: Denies back pain, joint pain, or myalgia. NEUROLOGIC: Denies headache, numbness, dizziness, or weakness. PSYCHIATRIC: Denies anxiety or depression. [facility] Past Medical History Medical History A-fib Abdominal lump Allergic dermatitis Anemia, unspecified Anxiety about health Ataxia Atopic dermatitis Atypical face pain BMI 26.0-26.9,adult BMI 27.0-27.9,adult BMI 27.0-27.9,adult BMI 28.0-28.9,adult BMI 28.0-28.9,adult (Unknown) Bradycardia Confusion D-dimer, elevated Degenerative joint disease of cervical and lumbar spine Dizziness Essential (primary) hypertension Foreign body of toe Fracture of second toe, left, closed Groin hematoma Groin pain Headache Hyponatremia Left ear pain Lipid disorder Mixed hyperlipidemia Paroxysmal atrial fibrillation Restless leg syndrome Rheumatoid arthritis, seronegative, multiple sites RSD (reflex sympathetic dystrophy) TIA (transient ischemic attack) Surgical History Surgical History H/O hernia repair History of arthroscopic knee surgery History of back surgery History of permanent cardiac pacemaker pl
[2021-09-27 17:04] VITALS: BP 107/77; PULSE 89; RESP 18; O2SAT 96
== END 2021-09-27 17:05 | disposition home or self-care (01) ==
PROVIDERS: Emergency Provider Nurse Practitioner Family; PCP Family Medicine
DX: T78.40XA Allergy, unspecified, initial encounter (principal); I48.0 Paroxysmal atrial fibrillation; I10 Essential (primary) hypertension; E78.2 Mixed hyperlipidemia; G25.81 Restless legs syndrome; M06.09 Rheumatoid arthritis without rheumatoid factor, multiple sites; G90.50 Complex regional pain syndrome I, unspecified; Z86.73 Personal history of transient ischemic attack (TIA), and cerebral infarction without residual deficits; Z79.82 Long term (current) use of aspirin; Z86.2 Personal history of diseases of the blood and blood-forming organs and certain disorders involving the immune mechanism; Z95.0 Presence of cardiac pacemaker; Z77.22 Contact with and (suspected) exposure to environmental tobacco smoke (acute) (chronic)
CPT/HCPCS: 96372; 99283; A9270; J1100

== ENCOUNTER 2022-01-17 07:51 | Outpatient (CLI) | payer MEDICARE, MEDICAID, SELFPAY ==
--- NOTE | ~2022-01-17 | MM_ITS ---
EXAMINATION: MM screening [facility] BI w asim HISTORY: Screening TECHNIQUE: Craniocaudal and mediolateral oblique 3-D tomosynthesis images were obtained and synthetic 2-D images were generated. CAD analysis was submitted and interpreted. COMPARISON: Comparison to multiple prior studies sequentially, with oldest reviewed study dated 11/15. BREAST PARENCHYMAL COMPOSITION: There are scattered areas of fibroglandular density. FINDINGS: There is no evidence of suspicious mass, calcification, or architectural distortion to sugg est malignancy in either breast. There has been no suspicious interval change. IMPRESSION: 1. No mammographic evidence of malignancy. 2. Recommend routine screening mammography in one year. BI-RADS Category 1: Negative Reviewed, dictated and finalized at location A.
== END 2022-01-17 07:52 | disposition home or self-care (01) ==
LOC: ANHIMG 07:52
PROVIDERS: PCP Family Medicine; Visit Provider Family Medicine
DX: Z12.31 Encounter for screening mammogram for malignant neoplasm of breast (principal)
CPT/HCPCS: 77063; 77067

== ENCOUNTER 2022-01-23 11:43 | Outpatient (CLI) | payer MEDICARE, MEDICAID, SELFPAY ==
--- NOTE | ~2022-01-23 | CT_ITS ---
EXAMINATION: CT abdomen pelvis w con DATE: 01/23/2022 12:27 INDICATION: Lower abdominal pain for 3 weeks. History of diverticulitis. TECHNIQUE: Computed tomography (CT) of the abdomen and pelvis was performed with 100 cc Omnipaque 300 intravenous contrast. The dose-length product was 812.88 mGy-cm. Automated exposure control and iter ative reconstruction technique were employed. COMPARISON: CT dated 09/12/2021. FINDINGS: Lung bases are unremarkable. Heart size normal. No significant pleural or pericardial effus ion. Mild atherosclerosis. No aneurysm. There is an IVC filter present. There are small subcentimeter hypodensities of the liver, most likely benign. The spleen, pancreas, adrenal glands are unremarkabl e. There are small bilateral hypodensities of the kidneys, most likely benign cysts. No lymphadenopat hy. Gallbladder is present. Nonobstructive bowel gas pattern. Normal appendix. Colonic diverticulosis without evidence for diverticulitis. No abnormal pelvic masses or fluid collections. There are surgi abdifatah changes consistent with posterior spinal fusion at L2-L5. There is a partially visualized spinal stimulator lead. No free air or free fluid. Interval resolution of postoperative changes in the anter ior abdominal wall near the umbilicus. IMPRESSION: 1. No acute abdominal abnormality. Reviewed, dictated and finalized at location A.
[2022-01-23 12:34] LABS: Basophils Percent Auto 0.5 % (0.2-1.2); Eosinophils Absolute Auto 0.1 K/mm3 (0-0.3); Eosinophils Percent Auto 1.1 % (0-4.4); Hematocrit 38.1 % (37.0-47.0); Hemoglobin 12.9 g/dL (12.0-15.0); Immature Granulocyte Absolute 0.01 K/mm3 (0.00-0.031); Immature Granulocyte Percent A 0.2 % (0-0.5); Lymphocytes Absolute Auto 2.15 K/mm3 (0.9-3.2); Lymphocytes Percent Auto 38.2 % (18.3-44.2); Mean Corpuscular HGB Conc 33.9 g/dl (32-36); Mean Corpuscular Hemoglobin 35.1 pg (26-34); Mean Corpuscular Volume 103.5 fl (80-100); Mean Platelet Volume 8.4 fl (7.4-10.4); Monocytes Absolute Auto 0.4 K/mm3 (0.1-0.6); Monocytes Percent Auto 7.8 % (2.6-8.5); Neutrophils Absolute Auto 2.9 K/mm3 (1.3-6.7); Neutrophils Percent Auto 52.2 % (45.5-73.1); Platelet Count Result 179 k/mm3 (150-375); Red Blood Count 3.68 M/mm3 (4.2-5.4); Red Cell Distribution Width 14.3 % (11.5-14.5); White Blood Count 5.6 K/mm3 (4.5-10.0)
[2022-01-23 12:53] LABS: Alanine Aminotransferase 18 U/L (6-35); Albumin Level 4.1 g/dL (3.5-5.1); Alkaline Phosphatase 61 U/L (38-126); Amylase 150 U/L (30-110); Anion Gap 3 mmol/L (8-16); Aspartate Amino Transferase 22 U/L (14-36); Bilirubin,Total 0.4 mg/dL (0.2-1.3); Blood Urea Nitrogen 17 mg/dL (7-17); Calcium 8.9 mg/dL (8.4-10.2); Carbon Dioxide 32 mmol/L (22-30); Chloride 102 mmol/L (98-107); Estimated Glomerular Filt Rate > 60; Glucose 80 mg/dL (65-110); Lipase 468 U/L (23-300); Potassium 4.5 mmol/L (3.4-5.0); Sodium 137 mmol/L (137-145)
== END 2022-01-23 11:44 | disposition home or self-care (01) ==
PROVIDERS: PCP Family Medicine; Visit Provider Nurse Practitioner Family
DX: R10.32 Left lower quadrant pain (principal); R10.84 Generalized abdominal pain
CPT/HCPCS: 36415; 74177; 80053; 82150; 83690; 85025; Q9967

== ENCOUNTER 2022-01-28 10:24 | Outpatient (CLI) | payer MEDICARE, MEDICAID, SELFPAY ==
[2022-01-28 11:26] LABS: Amylase 121 U/L (30-110); Lipase 350 U/L (23-300)
[2022-01-28 12:17] LABS: Vitamin B12 > 1000.0 pg/mL (239-931)
[2022-01-28 15:02] LABS: Basophils Percent Auto 0.6 % (0.2-1.2); Eosinophils Absolute Auto 0.1 K/mm3 (0-0.3); Hematocrit 37.5 % (37.0-47.0); Immature Granulocyte Absolute 0.01 K/mm3 (0.00-0.031); Immature Granulocyte Percent A 0.2 % (0-0.5); Lymphocytes Absolute Auto 2.07 K/mm3 (0.9-3.2); Lymphocytes Percent Auto 43.1 % (18.3-44.2); Mean Corpuscular HGB Conc 34.7 g/dl (32-36); Mean Corpuscular Hemoglobin 35.2 pg (26-34); Mean Corpuscular Volume 101.6 fl (80-100); Mean Platelet Volume 8.9 fl (7.4-10.4); Monocytes Absolute Auto 0.5 K/mm3 (0.1-0.6); Monocytes Percent Auto 10.2 % (2.6-8.5); Neutrophils Absolute Auto 2.2 K/mm3 (1.3-6.7); Neutrophils Percent Auto 44.9 % (45.5-73.1); Platelet Count Result 199 k/mm3 (150-375); Red Blood Count 3.69 M/mm3 (4.2-5.4); Red Cell Distribution Width 14.5 % (11.5-14.5); White Blood Count 4.8 K/mm3 (4.5-10.0)
[2022-01-28 16:29] LABS: Alanine Aminotransferase 22 U/L (6-35); Albumin Level 4.5 g/dL (3.5-5.1); Alkaline Phosphatase 64 U/L (38-126); Anion Gap 4 mmol/L (8-16); Aspartate Amino Transferase 28 U/L (14-36); Bilirubin,Total 0.6 mg/dL (0.2-1.3); Blood Urea Nitrogen 22 mg/dL (7-17); Calcium 9.2 mg/dL (8.4-10.2); Carbon Dioxide 31 mmol/L (22-30); Chloride 105 mmol/L (98-107); Estimated Glomerular Filt Rate > 60; Glucose 85 mg/dL (65-110); Potassium 4.2 mmol/L (3.4-5.0); Sodium 140 mmol/L (137-145)
[2022-01-28 17:37] LABS: Vitamin B12 > 1000.0 pg/mL (239-931)
[2022-01-31 14:35] LABS: Red Blood Cell Folate 623 ng/mL RBC (>280)
[2022-02-01 09:39] LABS: Methylmalonic Acid 196 nmol/L (87-318)
== END 2022-01-28 10:25 | disposition home or self-care (01) ==
PROVIDERS: PCP Family Medicine; Referring Provider Internal Medicine Hematology & Oncology; Visit Provider Nurse Practitioner Family
DX: R71.8 Other abnormality of red blood cells (principal); Z83.2 Family history of diseases of the blood and blood-forming organs and certain disorders involving the immune mechanism; R74.8 Abnormal levels of other serum enzymes
CPT/HCPCS: 36415; 80053; 82150; 82607; 82747; 83690; 83921; 84443; 85025

== ENCOUNTER 2022-02-04 15:52 | Outpatient (CLI) | payer MEDICARE, MEDICAID, SELFPAY ==
[2022-02-04 16:33] LABS: Alanine Aminotransferase 19 U/L (6-35); Albumin Level 4.8 g/dL (3.5-5.1); Alkaline Phosphatase 66 U/L (38-126); Amylase 76 U/L (30-110); Anion Gap 9 mmol/L (8-16); Aspartate Amino Transferase 25 U/L (14-36); Bilirubin,Total 0.5 mg/dL (0.2-1.3); Blood Urea Nitrogen 17 mg/dL (7-17); Calcium 9.5 mg/dL (8.4-10.2); Carbon Dioxide 27 mmol/L (22-30); Chloride 105 mmol/L (98-107); Estimated Glomerular Filt Rate > 60; Glucose 106 mg/dL (65-110); Lipase 170 U/L (23-300); Potassium 4.2 mmol/L (3.4-5.0); Sodium 141 mmol/L (137-145)
[2022-02-04 18:45] LABS: Toxigenic C. Diff NEGATIVE (NEGATIVE)
[2022-02-13 03:02] LABS: Calprotectin, Stool 9 mcg/g
== END 2022-02-04 15:53 | disposition home or self-care (01) ==
PROVIDERS: PCP Family Medicine; Visit Provider Nurse Practitioner Family
DX: R74.8 Abnormal levels of other serum enzymes (principal); R19.7 Diarrhea, unspecified
CPT/HCPCS: 36415; 80053; 82150; 83690; 83993; 87045; 87177; 87209; 87427; 87493

== ENCOUNTER 2022-02-06 08:38 | Outpatient (CLI) | payer MEDICARE, MEDICAID, SELFPAY ==
[2022-01-29 15:06] VITALS: BMI 27.9
--- NOTE | 2022-01-29 15:07 | PC.NURSE ---
Pre Radiology instructions Report to the Outpatient Waiting Room, entrance under the green pavilion located off [facility], at time 0830 on date 02/06/22. Procedure Time: 1030. One visitor will be allowed to accompany the patient into the hospital. The visitor will be instructed to remain with patient at all times or leave the building. We will allow the visitor to come back to the postoperative area when patient is ready. You and your visitor will be asked a series of questions to screen for COVID 19 for your protection. A mask is required within the hospital. Patients are to have no food or drink 6 hours prior to procedure time Driving will be restricted after the procedure, you must have a person to drive you home. Labs will be drawn in preop area and once reviewed, you will be taken to radiology area for procedure. When the procedure is completed, you will be taken to outpatient where you will be monitored for several hours. You may have one visitor in this area. Other than holding anti-coagulants, patient may take other medication(s) as scheduled. Prior to your appointment date patients are instructed to hold anti-coagulants after discussing with ordering provider to stop. If unable to discontinue anti-coagulants please notify radiologist. No aspirin or warfarin (Coumadin) for 7 days prior to the procedure. No clopidogrel (Plavix), ticagrelor (Brilinta), prasugrel (Effient) or dabigatran (Pradaxa) for 5 days prior to the procedure. No rivaroxaban (Xarelto), apixaban (Eliquis), dipyridamole (Aggrenox or Persantine) or cilostazol (Pletal) for 2 days prior to the procedure. Medications to discontinue per physician: ASPIRIN Date to take last dose: 01/30/22 Please leave all valuables, including medications, at home the day of procedure. The hospital will not accept responsibility for valuables. Wear comfortable, loose fitting clothing. Follow any additional instructions given to you from ordering provider. Telephone instructions given to PT - CHASIDY CANTU and asked if any additional questions and then verbalized understanding. Patient advised to call scheduling provider office or registration scheduling [phone] if any additional questions.
[2022-02-06] VITALS (8 sets, daily range): BP systolic 105–122; BP diastolic 68–80; PULSE 68–78; RESP 16–20; TEMP 36.3; O2SAT 95–100
--- NOTE | ~2022-02-06 | XR_ITS ---
EXAMINATION: CT lumbar spine w con, XR myelogram spine lumbosacral DATE: 02/06/2022 11:01 INDICATION: Back pain TECHNIQUE: Informed consent was obtained from the patient. Risks and benefits including bleeding, i nfection and nerve root injury were discussed with the patient. The patient agreed to proceed. Time out procedure was performed. Regional Economist radiograph was obtained. An entry site was chosen at the L3 leve l. A central approach was used. Standard sterile prep was done with Betadine. Entry site was infil trated with 3 cc 1% lidocaine. A 3.5 22G spinal needle was then inserted into the spinal canal with spontaneous reflux of clear CSF from the needle. 10 mL Omnipaque 300 was then injected into the the abdifatah sac with intra-articular administration confirmed with intermittent fluoroscopy. A total of 17 fl uoroscopic images were obtained. The amount of fluoroscopy time used during this procedure was 0.6 mi nutes. Frontal, and left and right lateral and oblique fluoroscopic images were then acquired. The patient was then transferred to CT scan for spiral CT of the lumbar spine. There was relatively poor contrast opacification of the thecal sac above the level of L1-L2. The patient was therefore returned to the fluoroscopy suite and placed in the position with the feet elevated to allow for more cephalad migrat ion of the contrast bolus which was observed with intermittent fluoroscopy. Patient was then returned to CT for additional CT imaging. Computed tomography (CT) of the lumbar spine was performed without intravenous contrast. Coronal and sagittal reformatted images of the lumbar spine CT were also review ed. Automated exposure control and iterative reconstruction technique were employed. The dose-length product was 1062.88 mGy-cm. Following this patient was transferred to the recovery area for 4 hours o f observation. There are no immediate complications. FINDINGS: Fluoroscopy: Review of prior chest radiograph dated 06/14/[address] lumbar spine dated 05/12/2014 demonstrates 1 2 paired rib-bearing thoracic segments and 5 nonrib-bearing lumbar segments. The S1 segment is transi tional, lumbarized on the left. Fluoroscopic images demonstrate postoperative changes including L3-L5 laminectomies with instrumented anterior and posterior spinal fusion from L3-S1 with bone graft cage s at each level and bilateral vertical keith and pedicle screw fixation. Also noted is an IVC filter in the infrarenal inferior vena cava. There is also a spinal stimulator with leads extending into the c entral canal of the lower cervical spine with distal tip beyond the cephalad margin of the field-of-v iew. There is a moderate central canal stenosis at L3 due in part to a moderate diffuse disc bulge at this level as well as due to some impression on the posterior aspect of the thecal sac. Posterior de compression with no central canal stenosis of the central canal from L3-L4 through S1. CT myelogram: Alignment is normal. Small amount of osseous fusion on the margins of the rudimentary disc space betw een the transitional S1 segment and S2. Chronic minimal anterior wedging at T12 and L1. Combined inst rumented anterior and posterior spinal fusion at L3-S1. Moderate disc height loss with mild degenerat antionette endplate changes at L2-L3 which includes some Modic type III sclerotic endplate changes along the right and posterior margins of the inferior endplate of L2. Mild disc height loss at T11-T12 through L1-L2. The following disc levels are specifically discussed: T11-T12: The disc does not extend beyond the endplate margin. There is mild left and moderate right f acet joint osteoarthritis. There is no neural foraminal stenosis. There is no central canal stenosis. T12-L1: Disc is mildly bulging. There is mild bilateral facet joint osteoarthritis. There is no neura l foraminal stenosis. There is mild central canal stenosis.
[2022-02-06 09:39] LABS: Prothrombin Time 13.1 Seconds (11.1-14.7)
[2022-02-06] MEDS: ONDANSETRON HCL ODT 4 MG TABLET PO (11:20)
--- NOTE | 2022-02-06 14:48 | SUR.PHASEII ---
1441 - dr. caro in room talking with pt
== END 2022-02-06 15:15 | disposition home or self-care (01) ==
PROVIDERS: PCP Family Medicine; Referring Provider Neurological Surgery; Visit Provider Radiology Diagnostic Radiology
DX: M47.815 Spondylosis without myelopathy or radiculopathy, thoracolumbar region (principal); M48.05 Spinal stenosis, thoracolumbar region; M47.817 Spondylosis without myelopathy or radiculopathy, lumbosacral region; M48.07 Spinal stenosis, lumbosacral region; Z51.81 Encounter for therapeutic drug level monitoring; Z79.899 Other long term (current) drug therapy
CPT/HCPCS: 36415; 62304; 72132; 85610; A9270; Q9967

== ENCOUNTER 2022-02-10 09:50 | Outpatient (CLI) | payer MEDICARE, MEDICAID, SELFPAY ==
[2022-02-14 08:50] LABS: Hematocrit 37.9 % (35.0-45.0); Hemoglobin 12.9 g/dL (11.7-15.5); MCH 34.9 pg (27.0-33.0); MCV 102.4 fL (80.0-100.0); RDW 14.5 % (11.0-15.0)
== END 2022-02-10 09:51 | disposition home or self-care (01) ==
PROVIDERS: PCP Family Medicine; Visit Provider Nurse Practitioner Family
DX: R71.8 Other abnormality of red blood cells (principal)
CPT/HCPCS: 36415; 83021

== ENCOUNTER 2022-02-12 20:27 | Emergency (ER) | payer MEDICARE, MEDICAID, SELFPAY ==
[2022-02-12 20:46] VITALS: BP 135/85; PULSE 98; RESP 18; TEMP 36.1; O2SAT 100
--- NOTE | 2022-02-12 21:31 | ED.LOWEXIN ---
HPI - Extremity Injury (Lower) General Chief Complaint: Extremity Injury, Lower Stated Complaint: possible clot Time Seen by Provider: 02/12/22 20:58 History of Present Illness HPI Narrative: 56-year-old female with prior history of DVT who is not currently on anticoagulation though she has no contraindications, with a current IVC filter, states that the last few days she has noticed increasing pain to her left leg, she states that it feels like the pain she had when she had a DVT in her right leg. Denies any difficulty breathing, chest pain. Also endorses some swelling in her left leg. Related Data Home Medications Medication Instructions Recorded Confirmed aspirin 81 mg chewable tablet 81 mg PO DAILY 04/03/20 02/06/22 folic acid 1 mg tablet 1 mg PO DAILY 02/19/21 02/06/22 methotrexate sodium 2.5 mg tablet 12.5 mg PO WEEKLY 02/19/21 02/06/22 metoprolol tartrate 50 mg tablet 50 mg PO Q12H 02/19/21 02/06/22 multivitamin 1 tablet PO DAILY 09/04/21 02/06/22 duloxetine 60 mg capsule,delayed 60 mg PO HS 09/12/21 02/06/22 release (Cymbalta) ferrous sulfate 325 mg (65 mg 325 mg PO DAILY 12/23/21 02/06/22 iron) tablet (Feosol) ascorbic acid (vitamin C) 500 mg 500 mg PO DAILY 01/29/22 02/06/22 tablet (Vitamin C) cholecalciferol (vitamin D3) 125 125 mcg PO DAILY 01/29/22 02/06/22 mcg (5,000 unit) tablet (Vitamin D3) elderberry fruit 200 mg capsule 200 mg PO DAILY 01/29/22 02/06/22 vitamin B complex 1 tablet PO DAILY 01/29/22 02/06/22 Allergies Allergy/AdvReac Type Severity Reaction Status Date / Time meclizine Allergy Severe Rash Verified 02/12/22 20:54 carbamazepine [From Tegretol] Allergy Intermediate Blister Verified 02/12/22 20:54 Cephalosporins Allergy Mild RASH Verified 02/12/22 20:54 clarithromycin Allergy Mild RASH Verified 02/12/22 20:54 imipramine Allergy Mild RASH Verified 02/12/22 20:54 Penicillins Allergy Mild HIVES Verified 02/12/22 20:54 cefuroxime [From Ceftin] Allergy Hives Verified 02/12/22 20:54 etanercept [From Enbrel] Allergy Redness of Verified 02/12/22 20:54 Skin hydromorphone [From Dilaudid] Allergy Hives Verified 02/12/22 20:54 oxycodone [From Percocet] Allergy Hives Verified 02/12/22 20:54 prochlorperazine Allergy Swelling Verified 02/12/22 20:54 [From Compazine] of Lip/Tongue/Throat propoxyphene [From Darvon] Allergy Hives Verified 02/12/22 20:54 propranolol [From Inderal LA] Allergy Rash Verified 02/12/22 20:54 alcohol AdvReac Severe Blister Verified 02/12/22 20:54 [From Mastisol Adhesive] gum mastic AdvReac Severe Blister Verified 02/12/22 20:54 [From Mastisol Adhesive] methyl salicylate AdvReac Severe Blister Verified 02/12/22 20:54 [From Mastisol Adhesive] storax AdvReac Severe Blister Verified 02/12/22 20:54 [From Mastisol Adhesive] codeine AdvReac Unknown Vomiting Verified 02/12/22 20:54 diphenhydramine AdvReac Vomiting Verified 02/12/22 20:54 [From Benadryl] hydrocodone [From Vicodin] AdvReac Vomiting Verified 02/12/22 20:54 Review of Systems Review of Systems: CONST: No fever. HEENT: No sore throat C/V: No chest pain RESP: No cough GI: No abdominal pain : No dysuria. M/S: Left leg pain SKIN: Bruising left leg NEURO: [No headache or focal numbness or weakness] PSYCH: [No depression] [facility] Past Medical History Medical History A-fib Abdominal bloating Abdominal lump Abnormality of heart beat Allergic dermatitis Allergic reaction to allergy skin test Anemia, unspecified Anxiety Anxiety about health Ataxia Atopic dermatitis Atypical face pain BMI 26.0-26.9,adult BMI 27.0-27.9,adult BMI 27.0-27.9,adult BMI 28.0-28.9,adult BMI 28.0-28.9,adult (Unknown) Bradycardia Confusion D-dimer, elevated Degenerative joint disease of cervical and lumbar spine Depression Diarrhea Dizziness Ear pain Essential (primary) hypertension Family history of beta thalassemia Fibromyalgia Foreig
[2022-02-12] MEDS: ENOXAPARIN 100 MG/ML SYRINGE 85 MG SUB-Q (22:08)
[2022-02-12 22:11] LABS: Basophils Percent Auto 0.2 % (0.2-1.2); Eosinophils Percent Auto 0.9 % (0-4.4); Hematocrit 35.5 % (37.0-47.0); Hemoglobin 12.2 g/dL (12.0-15.0); Immature Granulocyte Absolute 0.01 K/mm3 (0.00-0.031); Immature Granulocyte Percent A 0.2 % (0-0.5); Lymphocytes Absolute Auto 1.54 K/mm3 (0.9-3.2); Lymphocytes Percent Auto 33.3 % (18.3-44.2); Mean Corpuscular HGB Conc 34.4 g/dl (32-36); Mean Corpuscular Hemoglobin 35.1 pg (26-34); Monocytes Absolute Auto 0.5 K/mm3 (0.1-0.6); Monocytes Percent Auto 9.7 % (2.6-8.5); Neutrophils Absolute Auto 2.6 K/mm3 (1.3-6.7); Neutrophils Percent Auto 55.7 % (45.5-73.1); Platelet Count Result 179 k/mm3 (150-375); Red Blood Count 3.48 M/mm3 (4.2-5.4); Red Cell Distribution Width 13.8 % (11.5-14.5); White Blood Count 4.6 K/mm3 (4.5-10.0)
[2022-02-12 22:21] LABS: INR 1.1; Prothrombin Time 13.4 Seconds (11.1-14.7)
[2022-02-12 22:22] LABS: Anion Gap 12 mmol/L (8-16); Blood Urea Nitrogen 23 mg/dL (7-17); Calcium 9.6 mg/dL (8.4-10.2); Carbon Dioxide 26 mmol/L (22-30); Chloride 106 mmol/L (98-107); Estimated CRCL calculation 77 ml/min; Estimated Glomerular Filt Rate > 60; Glucose 105 mg/dL (65-110); Partial Thromboplastin Time 40.5 SECONDS (22.3-36.8); Potassium 3.7 mmol/L (3.4-5.0); Sodium 144 mmol/L (137-145)
== END 2022-02-12 22:12 | disposition home or self-care (01) ==
PROVIDERS: Emergency Provider Emergency Medicine; PCP Family Medicine
DX: M79.605 Pain in left leg (principal); Z86.718 Personal history of other venous thrombosis and embolism; I48.91 Unspecified atrial fibrillation; F41.9 Anxiety disorder, unspecified; I10 Essential (primary) hypertension; M79.7 Fibromyalgia; M06.9 Rheumatoid arthritis, unspecified
CPT/HCPCS: 36415; 80048; 85025; 85610; 85730; 96372; 99283; J1650

== ENCOUNTER 2022-02-13 07:43 | Outpatient (CLI) | payer MEDICARE, MEDICAID, SELFPAY ==
--- NOTE | ~2022-02-13 | US_ITS ---
EXAMINATION: US venous doppler [facility] DATE: 02/13/2022 08:32 INDICATION: Left lower limb pain TECHNIQUE: Arreaga scale images without and with compression and Doppler images of the left lower extrem ity veins were obtained. COMPARISON: 03/10/2018 FINDINGS: The left common femoral vein, profunda femoral vein, femoral vein, popliteal vein, peroneal trunk, posterior tibial veins, and greater saphenous vein are patent. IMPRESSION: 1. Patent left lower extremity veins. No evidence of deep venous thrombosis. Reviewed, dictated and finalized at location B.
== END 2022-02-13 07:44 | disposition home or self-care (01) ==
PROVIDERS: PCP Family Medicine; Visit Provider Family Medicine
DX: S89.92XA Unspecified injury of left lower leg, initial encounter (principal); M79.89 Other specified soft tissue disorders
CPT/HCPCS: 93971

== ENCOUNTER 2022-02-17 10:17 | Outpatient (CLI) | payer MEDICARE, MEDICAID, SELFPAY ==
--- NOTE | ~2022-02-17 | CT_ITS ---
EXAMINATION: CTA chest PE protocol DATE: 02/17/2022 10:47 INDICATION: Chest tightness, shortness of breath. Positive d-dimer. History of clots. TECHNIQUE: Computed tomography angiography (CTA) of the chest was performed with 100 mL Omnipaque-350 intravenous contrast timed to evaluate the pulmonary arteries. Coronal maximum intensity projection 3D-reconstructions were created by the technologist. Automated exposure control and iterative reconst ruction technique were employed. Exam dose: 362.47 mGy-cm total exam DLP. COMPARISON: 06/14/2021 portable AP chest 10/21/2020 CT pulmonary scan FINDINGS: There is diagnostic contrast enhancement of the pulmonary arteries and no evidence of pulmo nary embolism. Normal heart size. Right atrial and right ventricular pacemaker leads, left-sided pacemaker device. N o thoracic aortic aneurysm or dissection. No thoracic aortic aneurysm. No hilar or mediastinal mass lesion or lymphadenopathy. Normal morphology of the adrenal glands. No pulmonary infiltrate or consolidation, pleural effusion or pulmonary vascular congestion or pneumo thorax is detected. Degenerative disc disease of the lower cervical spine. Prominent diffuse idiopathic skeletal hyperostosis of the thoracic spine. No suspicious osteolytic or osteoblastic lesions. Posterior thoracic spinal neurotransmitter leads. IMPRESSION: No evidence of pulmonary embolism Left dual-lead pacemaker device Posterior spinal neurotransmitter leads Diffuse idiopathic skeletal hyperostosis of the thoracic spine Degenerative disc disease in the lower cervical spine Reviewed, dictated and finalized at Location A. Reviewed, dictated and finalized at location B.
== END 2022-02-17 10:18 | disposition home or self-care (01) ==
PROVIDERS: PCP Family Medicine; Visit Provider Nurse Practitioner Family
DX: R06.00 Dyspnea, unspecified (principal); R00.2 Palpitations; Z95.0 Presence of cardiac pacemaker; Z96.82 Presence of neurostimulator; M48.14 Ankylosing hyperostosis [Forestier], thoracic region; M50.30 Other cervical disc degeneration, unspecified cervical region
CPT/HCPCS: 71275; Q9967

== ENCOUNTER 2022-03-20 13:17 | Outpatient (CLI) | payer MEDICARE, MEDICAID, SELFPAY ==
--- NOTE | 2022-03-20 13:38 | ECG_ITS ---
Measurements Intervals Roberts Rate: 70 P: 107 NV: 197 QRS: -63 QRSD: 154 T: 53 QT: 448 QTc: 483 Interpretive Statements ELECTRONIC ATRIAL PACEMAKER ELECTRONIC VENTRICULAR PACEMAKER BASELINE ARTIFACT- I, AVR, AVL NO FURTHER INTERPRETATION IS POSSIBLE ATYPICAL ECG COMPARED TO ECG 09/12/2021 02:39:45 NO SIGNIFICANT CHANGES Electronically Signed On 03-20-2022 13:52:43 CDT by Rangel Moe D.O.
== END 2022-03-20 13:18 | disposition home or self-care (01) ==
LOC: ANHSURGERY 13:23
PROVIDERS: PCP Family Medicine; Visit Provider Neurological Surgery
DX: Z01.818 Encounter for other preprocedural examination (principal); M48.061 Spinal stenosis, lumbar region without neurogenic claudication; Z95.0 Presence of cardiac pacemaker
CPT/HCPCS: 36415; 86850; 86900; 86901; 93005

== ENCOUNTER 2022-03-25 10:46 | Inpatient (IN) | payer MEDICARE, MEDICAID, SELFPAY ==
[2022-03-19 09:46] VITALS: BMI 28.8
--- NOTE | 2022-03-19 10:26 | PC.NURSE ---
PRE-OP INSTRUCTIONS, PLEASE READ CAREFULLY Report to the Outpatient Waiting Room, entrance under the green pavilion located off [facility], at time _0830_ on date _03/25/22_. OR Time: _1030_. PACK A SMALL OVERNIGHT BAG AND LEAVE IN THE CAR. BRING COPY OF PACEMAKER CARD - A mask is required within the hospital. - You and your visitor will be asked to self-screen and do not enter if you have any COVID symptoms. - Only one visitor and NO children visitors are allowed at this time. - The patient visitor is requested to leave or wait in car when not with patient due to restrictions. - VISITING HOURS 10AM-8PM, PARK IN FRONT PARKING LOT AND USE MAIN HOSPITAL ENTRANCE Patients may have clear liquids (water, carbonated beverages, clear teas, apple juice) until 3 hours prior to surgery (0730 AM) with a maximum of 20 ounces. - No food from midnight until time of surgery Take the following medications with a SIP of water the morning of surgery: _METOPROLOL, INHALER & PAIN MEDS IF NEEDED_ Medications to discontinue _STATES STOPPING ASPIRIN 03/17/22, DICLOFENAC PER DR. MELENDEZ INSTRUCTIONS_ Medications to discontinue per ANESTHESIA - _VITAMINS/SUPPLEMENTS 3 DAYS PRIOR TO SURGERY, Date to take last dose 03/21/22_ Please no make-up, nail persian, hairspray, perfume, deodorant, or body powder the day of surgery. No jewelry (including any body piercings) or valuables the day of surgery, leave them at home. Please take a shower or bath the night before, or the morning of, surgery with an antibacterial soap. Wear comfortable, loose fitting clothing. - Jewelry must be removed prior to entering the operating room. Rings and piercings that are not removed may be cut off. - The hospital will not accept responsibility for valuables. - Please leave all valuables, including medications, at home the day of surgery. If you are going home after surgery, a licensed tractor driver must drive you home. - NO public transportation without another adult. - We recommend that an adult stay with you for 24 hours following discharge. - We also recommend that you do not drive, make important decision, drink alcoholic beverages, or take any drugs that were not prescribed by your health care provider for at least 24 hours after your discharge time. Follow any additional instructions given to you from your surgeon. If you or anyone in your household have experienced Covid symptoms in the past week, please notify your surgeon or the nurse liaison at the phone number below for possible testing. Telephone instructions given to ____PT and asked if any additional questions and then verbalized understanding. Patient advised to call surgeon office or pre surgery nurse liaison [phone] if any additional questions.
[2022-03-25] VITALS (15 sets, daily range): BP systolic 93–132; BP diastolic 59–86; PULSE 70–82; RESP 11–20; TEMP 36.3–36.7; O2SAT 92–100
--- NOTE | ~2022-03-25 | XR_ITS ---
EXAMINATION: XR fluoroscopy no charge DATE: 03/25/2022 16:45 INDICATION: Lumbar fusion. TECHNIQUE: 4 intraoperative fluoroscopic views of the lumbar spine were obtained. I was not present. Fluoroscopy exposure time was 17 seconds. COMPARISON: CT lumbar spine 02/06/2022 FINDINGS: There are changes of anterior and posterior fusion procedures in lumbar spine. Epidural juany ctrodes are noted. There is a filter in the inferior vena cava. IMPRESSION: 1. Surgical changes of lumbar spine. Reviewed, dictated and finalized at location A.
--- NOTE | ~2022-03-25 | CT_ITS ---
EXAMINATION: CT thoracic lumbar wo con DATE: 03/27/2022 10:15 INDICATION: Leg weakness. TECHNIQUE: Computed tomography (CT) of the thoracic and lumbar spine was performed without intravenou s contrast. Automated exposure control and iterative reconstruction technique were employed. The dose -length product was 1912.19 mGy-cm. COMPARISON: CT lumbar spine 02/06/2022, chest CT 02/17/2022 FINDINGS: CT THORACIC SPINE: There are small pleural effusions. There is mild atelectasis bilaterally. Bone ali gnment is normal. There is mild chronic anterior wedging of T6 and T7 vertebral bodies. There are Cecilia morl's nodes at many levels. There is mildly decreased disc height from T1-T2 through T4-T5, moderate ly decreased disc height at T5-T6 and T6-T7, and mildly decreased disc height at T7-T8. There are lulú dging endplate osteophytes from T4 to T11, consistent with diffuse idiopathic skeletal hyperostosis ( DISH). There is a laminectomy at T11. There are epidural electrodes with tips at T9. There is multile michelle mild facet joint osteoarthritis. On the right, there is mild neural foraminal stenosis at T1-T2 a nd T2-T3. There is no central canal stenosis. CT LUMBAR SPINE: Bone alignment is normal. There are changes of anterior and posterior fusion procedu res from L2 to S1 with pedicle screws and interbody devices. There are laminectomies from L2 to L5. I n the right central and subarticular zones from the L2 pedicular level to the L3 pedicular level, the re is hyperdense material measuring 1.2 x 0.7 x 3.2 cm. At L1-L2, there is mildly decreased disc heig ht. The following disc levels are specifically discussed: L1-L2: The disc is bulging. There is mild bilateral facet joint osteoarthritis. There is no neural fo raminal stenosis. There is mild central canal stenosis. L2-L3: There is no facet joint hypertrophy. There is moderate bilateral neural foraminal stenosis. Th ere is mild central canal stenosis. L3-L4: There is no facet joint hypertrophy. There is mild bilateral neural foraminal stenosis. There is no central canal stenosis. L4-L5: There is mild left facet joint hypertrophy. There is mild bilateral neural foraminal stenosis. There is no central canal stenosis. L5-S1: There is mild bilateral facet joint hypertrophy. There is mild bilateral neural foraminal sten osis. There is no central canal stenosis. IMPRESSION: 1. Anterior and posterior fusion procedures from L2 to S1. 2. New hyperdense material in the right central and subarticular zones from the L2 pedicular level to the L3 pedicular level measuring 1.2 x 0.7 x 3.2 cm, which may be epidural bone fragments. 3. Mild thoracolumbar spondylosis. 4. DISH. Reviewed, dictated and finalized at location A. IMPRESSION: 1. Anterior and posterior fusion procedures from L2 to S1. 2. New hyperdense material in the right central and subarticular zones from the L2 pedicular level to the L3 pedicular level measuring 1.2 x 0.7 x 3.2 cm, whi ch may be epidural bone fragments. 3. Mild thoracolumbar spondylosis. 4. DISH.
[2022-03-25] MEDS: LACTATED RINGERS 1,000 ML 125 ML IV CONT (10:01)
--- NOTE | 2022-03-25 11:07 | WPDANESEPPF ---
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 stenosis bilateral Patient Data Age: 56 Gender: F Height: 1.7 m Weight: 85 kg Last Vital Signs Temp 97.4 F L 03/25/22 09:56 Pulse 70 03/25/22 09:56 Resp 14 03/25/22 09:56 BP 115/86 03/25/22 09:56 Pulse Ox 100 03/25/22 09:56 O2 Del Method Room Air 03/25/22 09:56 Allergies Allergy/AdvReac Type Severity Reaction Status Date / Time meclizine Allergy Severe Rash Verified 03/25/22 09:36 carbamazepine [From Tegretol] Allergy Intermediate Blister Verified 03/25/22 09:36 Cephalosporins Allergy Mild RASH Verified 03/25/22 09:36 clarithromycin Allergy Mild RASH Verified 03/25/22 09:36 imipramine Allergy Mild RASH Verified 03/25/22 09:36 Penicillins Allergy Mild HIVES Verified 03/25/22 09:36 cefuroxime [From Ceftin] Allergy Hives Verified 03/25/22 09:36 etanercept [From Enbrel] Allergy Redness of Verified 03/25/22 09:36 Skin hydromorphone [From Dilaudid] Allergy Hives Verified 03/25/22 09:36 oxycodone [From Percocet] Allergy Hives Verified 03/25/22 09:36 prochlorperazine Allergy Swelling Verified 03/25/22 09:36 [From Compazine] of Lip/Tongue/Throat propoxyphene [From Darvon] Allergy Hives Verified 03/25/22 09:36 propranolol [From Inderal LA] Allergy Rash Verified 03/25/22 09:36 alcohol AdvReac Severe Blister Verified 03/25/22 09:36 [From Mastisol Adhesive] gum mastic AdvReac Severe Blister Verified 03/25/22 09:36 [From Mastisol Adhesive] methyl salicylate AdvReac Severe Blister Verified 03/25/22 09:36 [From Mastisol Adhesive] storax AdvReac Severe Blister Verified 03/25/22 09:36 [From Mastisol Adhesive] codeine AdvReac Unknown Vomiting Verified 03/25/22 09:36 diphenhydramine AdvReac Vomiting Verified 03/25/22 09:36 [From Benadryl] hydrocodone [From Vicodin] AdvReac Vomiting Verified 03/25/22 09:36 Home Medications Medication Instructions Recorded Confirmed Type aspirin 81 mg chewable tablet 81 mg PO DAILY 04/03/20 03/19/22 History nitroglycerin 0.4 mg sublingual 0.4 mg sublingual Q5MIN PRN Chest 04/03/20 03/19/22 Rx tablet (Nitrostat) Pain #25 tabs folic acid 1 mg tablet 1 mg PO DAILY 02/19/21 03/19/22 History methotrexate sodium 2.5 mg tablet 12.5 mg PO WEEKLY 02/19/21 03/19/22 History metoprolol tartrate 50 mg tablet 50 mg PO Q12H 02/19/21 03/25/22 History promethazine 25 mg rectal 25 mg RECTAL Q6H PRN nausea and 07/26/21 03/19/22 Rx suppository vomiting #24 ea multivitamin 1 tablet PO DAILY 09/04/21 03/19/22 History epinephrine 0.3 mg/0.3 mL 0.3 mg (0.3 mL) IM ONCE PRN 09/27/21 03/19/22 Rx injection, auto-injector (EpiPen Allergic Reaction #2 ea 2-Ranulfo) rosuvastatin 20 mg tablet 20 mg PO DAILY #90 tabs 11/11/21 03/19/22 Rx tizanidine 2 mg tablet 2 mg PO TID PRN muscle spasticity 11/25/21 03/19/22 Rx #60 tabs ferrous sulfate 325 mg (65 mg 325 mg PO DAILY 12/23/21 03/19/22 History iron) tablet (Feosol) furosemide 20 mg tablet 20 mg PO QAM #30 tabs 12/23/21 03/19/22 Rx ropinirole 1 mg tablet See Rx Instructions .Route 12/23/21 03/25/22 Rx .COMPLEX #360 tabs ascorbic acid (vitamin C) 500 mg 500 mg PO DAILY 01/29/22 03/19/22 History tablet (Vitamin C) cholecalciferol (vitamin D3) 125 125 mcg PO DAILY 01/29/22 03/19/22 History mcg (5,000 unit) tablet (Vitamin D3) elderberry fruit 200 mg capsule 200 mg PO DAILY 01/29/22 03/19/22 History vitamin B complex 1 tablet PO DAILY 01/29/22 03/19/22 History schzkq-ycktfnph-yqnmolg 2 cap PO QID 1 month #240 caps 02/03/22 03/19/22 Rx 36,000-114,000-180,000 unit capsule,delay rel (Creon) triamcinolone acetonide 0.5 % 1 applic topical DAILY #15 grams 02/07/22 03/19/22 Rx topical cream diclofen
--- NOTE | 2022-03-25 12:38 | WPDHPUPDATE1 ---
History and Physical Update Update Date/Time: 03/25/22 12:38 History and Physical has been reviewed, including an updated exam of the patient. There are NO changes in the patient's condition. Risks, benefits, and alternatives have been discussed and questions answered. Patient agrees to proceed with procedure.
--- NOTE | 2022-03-25 12:56 | PM.IMHP ---
H&P: HPI History of Present Illness Date/Time: 03/25/22 12:56 Chief Complaint: Back and leg pain Narrative: Naye is a 56-year-old female with back and leg pain related to adjacent level stenosis at L2-3 presents for posterior lumbar interbody fusion. She also presents for revision of her dorsal column stimulator lead and generator is at has reached end of life and has broken leads. She is not having new bowel or bladder difficulty. She is not complaining of specific muscle group weakness or dermatomal numbness. Review of Systems Review of Systems: Patient denies shortness of breath, cough, fever, chills, nausea, vomiting, weight loss, weight gain, dysuria, chest pain. She has back and leg pain and stiffness as above. She is otherwise negative on 12 systems except as noted PMFSH Past Medical History Medical History A-fib Abdominal bloating Abdominal lump Abnormality of heart beat Allergic dermatitis Allergic reaction to allergy skin test Anemia, unspecified Anxiety Anxiety about health Ataxia Atopic dermatitis Atypical face pain BMI 26.0-26.9,adult BMI 27.0-27.9,adult BMI 27.0-27.9,adult BMI 28.0-28.9,adult BMI 28.0-28.9,adult (Unknown) Bradycardia Confusion D-dimer, elevated Degenerative joint disease of cervical and lumbar spine Depression Diarrhea Dizziness Ear pain Essential (primary) hypertension Family history of beta thalassemia Fibromyalgia Foreign body of toe Fracture of second toe, left, closed Groin hematoma Groin pain Headache History of deep vein thrombosis Hypoglycemia Hyponatremia Inappropriate sinus tachycardia Left ear pain Lightheadedness Lipid disorder Mixed hyperlipidemia Pancreatitis Paroxysmal atrial fibrillation Presence of IVC filter Presence of neurostimulator Restless leg syndrome Rheumatoid arthritis Rheumatoid arthritis, seronegative, multiple sites RSD (reflex sympathetic dystrophy) SOB (shortness of breath) TIA (transient ischemic attack) Vertigo Wears glasses Surgical History Surgical History H/O cardiac radiofrequency ablation H/O hernia repair History of arthroscopic knee surgery History of back surgery History of endometrial ablation History of permanent cardiac pacemaker placement History of surgery on left wrist History of tubal ligation Hx of atrioventricular node ablation S/P insertion of spinal cord stimulator S/P IVC filter Status post surgical removal of both fallopian tubes Family History Family History Grandparent Family history of blood dyscrasia Family history of Alzheimer's disease Family history of malignant neoplasm of cervix Mother Family history of Alzheimer's disease Father Family history of lung cancer Sibling No problems noted. Other Diabetes mellitus Family history of allergic disorder Family history of kidney disease Family history of malignant neoplasm of thyroid High cholesterol Social History Social History Smoking status: Never smoker Second hand tobacco smoke exposure: Yes Alcohol intake: never Substance use: never Substance use type: does not use Living arrangements: alone Additional occupation/education comments: disabled Gender identity (if verbalized by the patient): Female Spiritual care concerns: No Meds Home Medications and Allergies Home Medications Medication Instructions Recorded Confirmed Type aspirin 81 mg chewable tablet 81 mg PO DAILY 04/03/20 03/19/22 History nitroglycerin 0.4 mg sublingual 0.4 mg sublingual Q5MIN PRN Chest 04/03/20 03/19/22 Rx tablet (Nitrostat) Pain #25 tabs folic acid 1 mg tablet 1 mg PO DAILY 02/19/21 03/19/22 History methotrexate sodium 2.5 mg tablet 12.5 mg PO WEEKLY 02/19/21 03/19/22 History shea
[2022-03-25] MEDS: CLINDAMYCIN 900 MG/D5W 50 ML 900 MG/50 ML PIGGYBACK 50 MG IVPB (13:22)
[2022-03-25] MEDS: LIDO 1%/EPINEPHRINE 1:100,000 50 ML VIAL INFILTRATE (14:09)
[2022-03-25] MEDS: VANCOMYCIN HCL 1,000 MG VIAL 1000 MG TOPICAL (15:13)
[2022-03-25] MEDS: LACTATED RINGERS 1,000 ML 30 ML IV CONT (17:02)
--- NOTE | 2022-03-25 17:02 | W.PM.PROC2 ---
Procedure Note - Detailed Date of Procedure 03/25/22 Pre-op Diagnosis L2-3 foraminal stenosis bilateral, chronic back and leg pain Post-op Diagnosis Same Procedure Performed L2-3 laminectomy and bilateral facetectomy, L2-3 complete diskectomy and interbody arthrodesis utilizing titanium interbody device and local autograft, L2-3 pedicle screw instrumentation, removal of dorsal column stimulator lead and generator, replacement of dorsal column stimulator lead and generator. Surgeon Taran Ramirez MD Thread Spinner Dr. Oksana Patel Anesthesia General Indications Dionne is a 56-year-old female with back and leg pain related to the above pathology presents for decompression fusion at L2-3 and removal and replacement of her dorsal column stimulator. Findings Stenosis, foraminal stenosis, spondylosis Description of Procedure Naye was brought to the operating room in the supine position, was sedated, intubated and placed under general anesthesia in routine fashion. She was then turned in the prone position on a open Delmer table. Area of operation on her back was examined, marked her incision, prepped and draped in routine sterile fashion. Incision was marked over the L2-3 4 spinous processes in the midline and in the right flank transversely over the previous incision in the low thoracic spine in the midline. These areas were injected with 0.5% lidocaine with [id number] epinephrine. Intravenous antibiotics given prior to incision. Incision was made in each location using a 10 blade scalpel. A subperiosteal dissection of the muscle soft tissue with the spinous process lamina of L2 was performed with a subperiosteal elevator and Bovie cautery. A verifying x-rays obtained to verify the level of operation. The instrumentation at L3-4 was uncovered using Bovie cautery. A Mariam rongeur was used to remove the L2 spinous process. Kerrison punches, curved curette and Leksell rongeur were used to remove lamina in the midline to the soft contents of the canal were encountered. Midas-Solomon drill was used to resect the pars bilaterally at no 2. The inferior articular process and facet of L2 could not be removed bilaterally. The spots spinous process were stripped free of soft tissue and morselized for later use as interbody autograft. Kerrison punches and curettes were used to define a plane with the dura and removed bone and ligament flush with the pedicle and through the foramen widely decompressing the exiting nerve roots. With the thecal sac retracted protected the disc space was entered bilaterally using an 11 blade scalpel. Scrapers appears sizes curettes of various configurations, a pituitary rongeur and a rasp were used to remove as much cartilaginous endplate and disc material as possible down to bleeding cortical flat surfaces on the opposing bones. The disc space was incised an 8 mm interbody devices were chosen and filled with local autograft bone. The disc space was likewise filled with local autograft bone medially and anteriorly. The interbody devices were then placed with 2-3 mm countersink within the disc space bilaterally. Pedicle screw instrumentation was performed at L2 by observing and palpating the pedicle while a hole was made and superior articular process above the pedicle using a Midas Solomon drill. Pedicle was then cannulated with a pedicle probe, checked for continuity with the ball probe, tapped with a 5.5 mm tap and a 6.5 x 50 mm screw was placed in pedicle. Lateral offsets were placed into the screw heads and lateral connectors on the keith between L3 and L4. The 55 mm keith was then placed between the lateral connectors and the lateral offsets. These were secured in position using a capsule that purpose and definitively tightened with the torque and anti torque device. Verify x-rays obtained to verify good position of the instrumentation which was confirmed. At the right flank incision Bovie cautery was used to discover and remove the ge
[2022-03-25] MEDS: fentaNYL CITRATE INJ (*CRX) 100 MCG/2 ML VIAL 25 MCG IV PUSH ×12 (17:25→18:48)
--- NOTE | 2022-03-25 19:42 | ADMGEN ---
This patient, Naye Hart, was admitted to Medical Room 244-. Patient/family oriented to hospital policies and general routines including ID bracelet, bed and alarms, visiting hours, pain management, procedures, bathroom and other care routines, personal items, smoking policy, room service/diet, and visiting hours. Information on how to activate the Rapid Response Team has been discussed. Patient/Family are encouraged to report perceived risks to care and to ask questions if they do not understand what they are told or what they should do.
[2022-03-25] MEDS: MORPHINE SULFATE (*CRX) 2 MG/ML INJ IV PUSH (20:26)
[2022-03-25] MEDS: DULoxetine HCL 30 MG CAPSULE.DR PO (21:33)
[2022-03-25] MEDS: DULoxetine HCL 60 MG CAPSULE.DR PO (21:33)
[2022-03-25] MEDS: rOPINIRole HCL 1 MG TABLET BY MOUTH (21:33)
[2022-03-25] MEDS: MORPHINE SULFATE (*CRX) 4 MG/ML INJ IV PUSH (21:34)
[2022-03-25] MEDS: METOPROLOL TARTRATE 50 MG TAB PO (21:34)
--- NOTE | 2022-03-25 21:45 | PHAR ---
DRUG NAME: CREMAGDIEL INGREDIENTS: AMYLASE -- [id number] U LIPASE -- 12894 U PROTEASE -- [id number] U RELATED DOCUMENTS: DRUGDEX EVALUATIONS - PANCRELIPASE COLOR: BLUE OPAQUE , COLORLESS TRANSPARENT SHAPE: CAPSULE-SHAPE IMPRINT: CREON 1235
--- NOTE | 2022-03-25 22:34 | PC.NURSE ---
1920 ENTERED INTO ROOM, PT CRYING TALKING TO FRIEND, NEUROVASCULAR CHECK DONE, INFORMED PT WILL BE BACK TO GET HER ADMITTED
--- NOTE | 2022-03-25 22:36 | PC.NURSE ---
2020 PT STATED THAT SHE IS NOT ALLOWED TO REACH FOR ANYTHING AND STATES SHE HAS HAD 21 SURGERIES AND KNOWS WHAT SHE CAN DO. INFORMED PT THAT I NEED TO FIND OUT DR MELENDEZ ORDERS ON WHAT SHE CAN AND CANNOT DO AND NEUROVASCULAR CHECKS. NURSING [facility] [employer] AND ABRIL ALVAREZ CHECKING ON GETTING INFORMATION
--- NOTE | 2022-03-25 23:05 | PC.NURSE ---
[address] MELENDEZ TO ASK QUESTIONS ABOUT NEURO CHECKS AND CARE OF PT. HE STATES SHE CAN DO WHATEVER SHE WANTS SHE CAN MOVE HER LEGS, BEND HER KNEES, AMBULATE TO BATHROOM, SIT IN CHAIR. INFORMED DR THAT PT UPSET THAT NURSE WANTED TO VERIFY ACTIVITY SINCE HE IS NEW TO OUR FACILITY. DR MELENDEZ STATES THAT SHE IS VERY MANIPULATIVE.
[2022-03-25] MEDS: hydrOXYzine HCL 25 MG TABLET PO (23:44)
--- NOTE | 2022-03-25 23:47 | PC.NURSE ---
PT STATES IM HAVING AN ALLERGIC REACTION TO THE MEDICINE, I THINK IT WAS THE PILL YOU GAVE ME TO HELP WITH THE INFLAMMATION. INFORMED PT I DID NOT GIVE HER A PILL FOR INFLAMMATION, I GAVE HER ALL HER PILLS SHE TAKES AT HOME. PT STATES, YOU NEED TO GO DOUBLE CHECK BECAUSE I KNOW YOU GAVE ME THAT PILL. THEN STATES OH I THINK IM ITCHING BECAUSE I HAVE RSD AND I TAKE ATARAX FOR THAT.
--- NOTE | 2022-03-25 23:53 | PC.NURSE ---
PT ASKING HOW OFTEN SHE CAN HAVE PAIN MEDS AND IF IT IS SCHEDULED OR IF SHE NEEDS TO ASK FOR IT. INFORMED PT ABOUT PAIN MEDS AND THAT IF SHE NEEDS MEDS SHE NEEDS TO CALL AND ASK, PT THEN SET ALARM ON PHONE FOR WHEN NEXT PAIN MED DUE
[2022-03-26] VITALS (8 sets, daily range): BP systolic 100–116; BP diastolic 58–68; PULSE 68–81; RESP 16; TEMP 36.4–36.8; O2SAT 93–100
[2022-03-26] MEDS: MORPHINE SULFATE (*CRX) 4 MG/ML INJ IV PUSH ×6 (00:28→15:56)
--- NOTE | 2022-03-26 00:41 | PC.NURSE ---
PT STATES IM SO GLAD WE GOT EVERYTHING WORKED OUT. PAIN MED GIVEN AND PT RESET ALARM FOR NEXT TIME PAIN MED DUE.
--- NOTE | 2022-03-26 01:49 | PC.NURSE ---
PT CALLED NURSE INTO ROOM TO ASK WHY SHE WAS TOLD SHE COULD GET UP AND WALK AND GO TO BATHROOM SINCE SHE HAS MILES IN. INFORMED PT DR SAID SHE COULD GET UP AND WALK ANYTIME SHE FELT COMFORTABLE GETTING UP AND IF SHE NEEDED TO HAVE BM.
--- NOTE | 2022-03-26 02:36 | PC.NURSE ---
NURSING OSCILLOGRAPH TECHNICIAN INFORMED ME THAT DAUGHTER CALLED AND STATED THAT PATIENT CANNOT REACH HER TRAY AND THAT SHE HAS TO CALL THE NURSE TO CHECK HER DRESSINGS. I WAS JUST IN ROOM 39 MINUTES AGO AND TALKED TO PT AND CHECKED HER DRESSINGS AND INFORMED HER THAT THEY ARE COMPLETELY DRY AND INTACT
--- NOTE | 2022-03-26 02:55 | PC.NURSE ---
WENT INTO ROOM AND ASKED IF SHE NEEDED ANYTHING. STATES IM NOT HELPING HER AND SHE HAS TO ASK FOR HER WOUND TO BE CHECKED. INFORMED PT GIA BEEN CHECKING HER DRAIN AND HER DRESSINGS. STATES I WAS NOT TOLD I HAVE A MILES CATHETER. INFORMED PT SHE WILL HAVE ANOTHER NURSE TO CARE FOR HER.
--- NOTE | 2022-03-26 03:24 | PC.NURSE ---
2100 PT STATED THAT WHEN HER BP IS LOW THAT IS WHEN SHE IS IN TERRIBLE PAIN, HER BODY WORKS DIFFERENTLY THAN MOST PEOPLE
[2022-03-26] MEDS: ASCORBIC ACID 500 MG TABLET PO (08:47)
[2022-03-26] MEDS: MUPIROCIN 2% OINT 22 GM TUBE 1 APPLIC TOPICAL ×2 (08:48→21:08)
[2022-03-26] MEDS: METOPROLOL TARTRATE 50 MG TAB PO (08:48)
[2022-03-26] MEDS: ROSUVASTATIN 10 MG TABLET 20 MG PO (08:49)
[2022-03-26] MEDS: FOLIC ACID 1 MG TABLET PO (08:49)
[2022-03-26] MEDS: COLESTIPOL HCL 1 GM TABLET BY MOUTH (08:50)
[2022-03-26] MEDS: FERROUS SULFATE 324 MG TABLET PO (08:50)
[2022-03-26] MEDS: FUROSEMIDE 20 MG TABLET PO (08:50)
[2022-03-26] MEDS: MONTELUKAST SODIUM 10 MG TABLET PO (08:50)
[2022-03-26] MEDS: rOPINIRole HCL 0.5 MG TABLET BY MOUTH ×2 (08:50→16:31)
[2022-03-26] MEDS: MULTIVITAMINS THERAPEUTIC TAB (*BKC) 1 TABLET PO (08:50)
--- NOTE | 2022-03-26 09:11 | WPDANESPN ---
Anes - Prog Note Post-Op Date/Time: 03/26/22 08:32 Cardiovascular status: normal Respiratory status: normal Airway patency: baseline Mental status: baseline Post-Op hydration status: normal Vital Signs: Last Vital Signs Temp 97.6 F 03/26/22 04:00 Pulse 81 03/26/22 08:48 Resp 16 03/26/22 04:00 BP 110/65 03/26/22 04:00 Pulse Ox 96 03/26/22 04:00 O2 Del Method Room Air 03/25/22 18:45 O2 Flow Rate 8 03/25/22 17:30 Pain Score (VAS): 10 I/O: Intake & Output 03/25/22 03/26/22 03/26/22 23:59 07:59 15:59 Intake Total 550 300 Output Total 160 1230 Balance 390 -930 Post-procedural complaints: none Patient Feedback: Patient satisfied with anesthetic care. Pt distraught over care given. Reports poor nursing care and poor management of issues. Pt reports rude and disrespectful treatment, is tearful relating lack of care being provided . pt was quite emphatic in her reports of poor care, discussing approx ten minutes until her day nurse by chance entered the room. Briefly discussed pt's perception of care during the night with the nurse. Pt reassured. Deferred to day nurse for ongoing care.
--- NOTE | 2022-03-26 16:37 | PHAR ---
HOME MEDICATION VERIFIED BY PHARMACY: BUPRENORPHINE TRANSDERMAL PATCHES 5 MCG/HR APPLY 1 PATCH TD EVERY 7 DAYS - UNOPENED BOX
[2022-03-26] MEDS: MORPHINE SULFATE (*CRX) 2 MG/ML INJ IV PUSH ×2 (19:41→22:46)
[2022-03-26] MEDS: DULoxetine HCL 30 MG CAPSULE.DR PO (21:08)
[2022-03-26] MEDS: DULoxetine HCL 60 MG CAPSULE.DR PO (21:08)
[2022-03-26] MEDS: rOPINIRole HCL 1 MG TABLET BY MOUTH (21:08)
[2022-03-26] MEDS: TIZANIDINE HCL 2 MG TABLET PO (23:40)
[2022-03-27] VITALS (11 sets, daily range): BP systolic 88–120; BP diastolic 38–72; PULSE 83–91; RESP 16–18; TEMP 36.4–36.7; O2SAT 95–100
[2022-03-27] MEDS: SODIUM CHLORIDE 0.9% IV 500 ML 999 ML IV CONT ×2 (06:57→13:57)
[2022-03-27] MEDS: ASCORBIC ACID 500 MG TABLET PO (09:08)
[2022-03-27] MEDS: FERROUS SULFATE 324 MG TABLET PO (09:09)
[2022-03-27] MEDS: MONTELUKAST SODIUM 10 MG TABLET PO (09:10)
[2022-03-27] MEDS: MULTIVITAMINS THERAPEUTIC TAB (*BKC) 1 TABLET PO (09:10)
[2022-03-27] MEDS: FOLIC ACID 1 MG TABLET PO (09:10)
[2022-03-27] MEDS: ROSUVASTATIN 10 MG TABLET 20 MG PO (09:11)
[2022-03-27] MEDS: rOPINIRole HCL 0.5 MG TABLET BY MOUTH ×2 (09:11→16:29)
[2022-03-27] MEDS: MUPIROCIN 2% OINT 22 GM TUBE 1 APPLIC TOPICAL ×2 (09:11→20:29)
--- NOTE | 2022-03-27 09:39 | WPDNEUROSGPN ---
Progress Note: A&P Assessment and Plan (1) Lumbar spondylosis: Code(s): M47.816 - Spondylosis without myelopathy or radiculopathy, lumbar region Status: Acute (2) Lumbar stenosis: Code(s): M48.061 - Spinal stenosis, lumbar region without neurogenic claudication Status: Acute (3) Foraminal stenosis of lumbar region: Code(s): M48.061 - Spinal stenosis, lumbar region without neurogenic claudication Status: Acute Plan We will obtain a CT scan of the thoracic and lumbar spine as Naye is not able to have an MRI because of the retained pacemaker lead. While this is inferior to an MRI it is the best we can do for now. Her complaints in the left lower extremity did not make anatomic sense for the procedures that were done to her and therefore somewhat mysterious. Subjective Date/time seen: 03/27/22 09:39 Naye is postop day 2 status post L2-3 posterior lumbar interbody fusion and revision of her dorsal column stimulator. She is having a new issue this morning. For the last hour or so she has complained of numbness and weakness in her left lower extremity. She states that the numbness is circumferential and extends all the way down to include the entire foot. The weakness also seems to be fairly generalized but specifically she is not using her dorsiflexors and plantar flexors. She is not having any issues on the right. After I left the room she started complaining of difficulty swallowing. She cannot be more specific about that. Yesterday she was ambulating with transfer assistance and at times with a walker without any of the current symptoms that she is complaining of. She does not report any bowel or bladder incontinence. Her Hernandez catheter is been removed. She has not had significant drainage from her drain. Exam Neuro: Other: The patient was able to lift both legs off the bed at the hip but only slightly off the bed on the left with more effort, apparently. She would not dorsiflex or plantar flex her left foot. She was able to hold her knee straight against resistance with and leg elevated bilaterally. There is no weakness on the right. She did stand up on her own power using a walker but would not take steps because she did not have confidence that she would not fall. Objective Data Vital Signs Vital Signs: Vital Signs - 24 hr 03/26/22 10:08 03/26/22 14:15 03/26/22 18:08 Temperature 97.6 F 97.7 F 97.7 F Pulse Rate 70 72 74 Respiratory Rate 16 16 16 Blood Pressure 108/64 110/68 112/66 Pulse Oximetry 98 99 100 03/26/22 19:45 03/26/22 20:56 03/26/22 22:57 Temperature 98.2 F 98.2 F 97.8 F Pulse Rate 68 68 80 Respiratory Rate 16 16 Blood Pressure 100/58 L 100/58 L 116/63 Pulse Oximetry 94 93 03/27/22 02:00 03/27/22 06:27 03/27/22 06:46 Temperature 97.8 F 97.6 F Pulse Rate 87 83 Respiratory Rate 16 16 Blood Pressure 90/58 L 88/52 L 92/38 L Pulse Oximetry 99 95 Intake/Output Intake/Output: Intake & Output 03/24/22 03/25/22 03/26/22 03/27/22 23:59 23:59 23:59 23:59 Intake Total 600 1530 400 Output Total 160 1740 540 Balance 440 210 -140 Meds/Results Medications: Active Medications Generic Name Dose Route Start Last Admin Trade Name Freq PRN Reason Stop Dose Admin Al Hydrox/Mg Hydrox/Simethicone 20 ml 03/25/22 19:08 Mag Hydrox/Al Hydrox/Simeth 30 Ml Udc PO Q4H PRN Indigestion/Heartburn Albuterol 1 puff 03/25/22 19:08 Albuterol Sulfate (*Sp) Aerosol 1 Puff INHALATION Q4HRT PRN shortness of breath or wheezing Artificial Tears 1 drop 03/25/22 19:36 Artificial Tears Ophth Soln 15 Ml Bottle EACH EYE Q2H PRN Dry Eye(s) Ascorbic Acid 500 mg 03/26/22 09:00 03/27/22 09:08 Ascorbic Acid 500 Mg Tablet PO 500 mg DAILY WATSON Administration Bisacodyl 10 mg 03/25/22 19:08 Bisacodyl 10 Mg Suppository RECTAL DAILY PRN Constipation Colestipol HCl 1 gm 03/26/22 09:00 03/27/22
--- NOTE | 2022-03-27 13:04 | PCOTNOTE ---
Attempted to see patient this pm, however patient's BP 88/42 in supine. Pt not seen for this reason.
[2022-03-27] MEDS: traMADol HCL (*CRX) 50 MG TABLET 100 MG PO (13:53)
[2022-03-27 17:06] LABS: Glucose Point of Care 90 mg/dl (65-105)
[2022-03-27] MEDS: DULoxetine HCL 30 MG CAPSULE.DR PO (20:29)
[2022-03-27] MEDS: rOPINIRole HCL 1 MG TABLET BY MOUTH (20:29)
[2022-03-27] MEDS: DULoxetine HCL 60 MG CAPSULE.DR PO (20:29)
[2022-03-28 01:15] VITALS: BP 105/57; PULSE 88; RESP 16; TEMP 36.7; O2SAT 100
[2022-03-28] MEDS: traMADol HCL (*CRX) 50 MG TABLET 100 MG PO (03:51)
[2022-03-28] MEDS: TIZANIDINE HCL 2 MG TABLET PO (03:53)
[2022-03-28 03:55] VITALS: BP 108/73; PULSE 94; RESP 16; TEMP 36.4; O2SAT 98
[2022-03-28] MEDS: FERROUS SULFATE 324 MG TABLET PO (09:04)
[2022-03-28] MEDS: COLESTIPOL HCL 1 GM TABLET BY MOUTH (09:04)
[2022-03-28] MEDS: MULTIVITAMINS THERAPEUTIC TAB (*BKC) 1 TABLET PO (09:04)
[2022-03-28] MEDS: MONTELUKAST SODIUM 10 MG TABLET PO (09:04)
[2022-03-28] MEDS: ASCORBIC ACID 500 MG TABLET PO (09:04)
[2022-03-28] MEDS: MUPIROCIN 2% OINT 22 GM TUBE 1 APPLIC TOPICAL (09:04)
[2022-03-28] MEDS: ROSUVASTATIN 10 MG TABLET 20 MG PO (09:05)
[2022-03-28] MEDS: rOPINIRole HCL 0.5 MG TABLET BY MOUTH ×2 (09:49→17:12)
[2022-03-28] MEDS: FOLIC ACID 1 MG TABLET PO (09:49)
[2022-03-28] MEDS: traMADol HCL (*CRX) 50 MG TABLET PO (09:56)
[2022-03-28 10:07] VITALS: BP 109/70; PULSE 93; RESP 16; TEMP 36.4; O2SAT 98
[2022-03-28 14:22] VITALS: BP 88/62; PULSE 90; RESP 16; TEMP 36.4; O2SAT 98
[2022-03-28 16:34] VITALS: O2SAT 98
--- NOTE | 2022-03-31 22:42 | PM.DS ---
DS: Admitting Diagnosis Discharge Date 03/28/22 Admitting Diagnosis L2-3 junctional stenosis DS: Discharge Diagnosis Discharge Diagnosis (1) Lumbar spondylosis: Code(s): M47.816 - Spondylosis without myelopathy or radiculopathy, lumbar region Status: Acute (2) Lumbar stenosis: Code(s): M48.061 - Spinal stenosis, lumbar region without neurogenic claudication Status: Acute (3) Foraminal stenosis of lumbar region: Code(s): M48.061 - Spinal stenosis, lumbar region without neurogenic claudication Status: Acute Plan Dionne is a 56-year-old female with junctional stenosis at L2-3 above her previous fusion operation who presents now for extension of her fusion to L2. DS: Summary Hospital Course Reason for hospitalization: Junctional stenosis at L2-3. Hospital Course: Naye was taken to the operating room on 03/25/2022 where the aforementioned operation was performed without complication. She was sent to the floor postoperatively. She had Hernandez catheter and lumbar drain in place until postoperative day 2. Also on postoperative day 2 she complained of left lower extremity numbness and weakness. CT scan was performed which demonstrated no acute abnormalities. She improved spontaneously and but the time of her discharge on 12/26/2021 she was eating, ambulating, emptying her bladder and her pain was under control with by mouth pain medicine. Her wounds remain clean dry and intact. She was afebrile stable vital signs. She was therefore Naye was taken to the operating room on 03/25/2022 where the aforementioned operation was performed without complication. She was sent to the floor postoperatively. She had Hernandez catheter and lumbar drain in place until postoperative day 2. Also on postoperative day 2 she complained of left lower extremity numbness and weakness. CT scan was performed which demonstrated no acute abnormalities. She improved spontaneously and but the time of her discharge on 12/26/2021 she was eating, ambulating, emptying her bladder and her pain was under control with by mouth pain medicine. Her wounds remain clean dry and intact. She was afebrile stable vital signs. She was therefore Allowed to be discharged to home. Status at Discharge Cognitive/behavioral status at discharge: Stable Time Spent with Patient Time attestation: Total time spent providing and/or coordinating discharge services: Exam Neuro: Other: strength and sensation were normal in the bilateral lower extremities. Gait station transfers were independent steady. Wound was clean, dry and intact. Discharge Plan Discharge Attending physician on discharge: Taran Ramirez Consulting providers: Antoine Lee V. Discharging Clinician: Oksana Guthrie Patient Disposition: Home, Self-Care Activity: follow weight bearing status Diet: regular Wound Care Instructions: follow printed instructions and keep dressing dry Patient Instructions: Antibiotic Form Stand Alone Forms: General Discharge Information Follow-up/Referrals: Taran Ramirez MD [Physician] - Call for Appointment Discharge Medications: Continued epinephrine [EpiPen 2-Ranulfo] 0.3 mg/0.3 mL auto-injector 0.3 mg IM ONCE PRN (Reason: Allergic Reaction) Qty: 2 0RF Rx Instructions: as a single dose; may repeat once duloxetine 30 mg capsule,delayed release(DR/EC) 30 mg PO QHS Qty: 90 6RF duloxetine [Cymbalta] 60 mg capsule,delayed release(DR/EC) 60 mg PO HS Qty: 90 6RF folic acid 1 mg tablet 1 mg PO DAILY metoprolol tartrate 50 mg tablet 50 mg PO Q12H ferrous sulfate [Feosol] 325 mg (65 mg iron) tablet 325 mg PO DAILY Label Comments: QAM ropinirole 1 mg tablet See Rx Instructions .ROUTE .COMPLEX Qty: 360 0RF Dose Instruction: TAKE 1 TABLET BY MOUTH FOUR TIMES A DAY Rx Instructions: 1/2 tab BID and 1mg QHS furosemide 20 mg tablet 20 mg P
== END 2022-03-28 19:09 | disposition home or self-care (01) | DRG 460 ==
LOC: ANH2MED 19:36
PROVIDERS: Admitting Provider Neurological Surgery; PCP Family Medicine; Visit Provider Neurological Surgery
PROC: 0SG00AJ Fusion of Lumbar Vertebral Joint with Interbody Fusion Device, Posterior Approach, Anterior Column, Open Approach (ICD-10-PCS; CPT 22612; principal; 2022-03-25 10:30)
DX: M48.061 Spinal stenosis, lumbar region without neurogenic claudication (principal); T85.615A Breakdown (mechanical) of other nervous system device, implant or graft, initial encounter; E78.2 Mixed hyperlipidemia; M47.816 Spondylosis without myelopathy or radiculopathy, lumbar region; I10 Essential (primary) hypertension; R20.0 Anesthesia of skin; R53.1 Weakness; M06.09 Rheumatoid arthritis without rheumatoid factor, multiple sites; G25.81 Restless legs syndrome; M79.7 Fibromyalgia; Z79.82 Long term (current) use of aspirin; Z79.899 Other long term (current) drug therapy; Z86.718 Personal history of other venous thrombosis and embolism; Z86.73 Personal history of transient ischemic attack (TIA), and cerebral infarction without residual deficits; Z95.0 Presence of cardiac pacemaker; Z95.828 Presence of other vascular implants and grafts
CPT/HCPCS: 72128; 72131; 82948; 97161; 97165; 97530; 97535; 99199; A9270; J1100; J2250; J2270; J2405; J2704; J3010; J3370; J7030; J7040; J7120

== ENCOUNTER 2022-04-22 10:46 | Outpatient (CLI) | payer MEDICARE, MEDICAID, SELFPAY ==
[2022-04-22 11:07] LABS: Hematocrit 35.8 % (37.0-47.0); Hemoglobin 12.2 g/dL (12.0-15.0); Mean Corpuscular HGB Conc 34.1 g/dl (32-36); Mean Corpuscular Hemoglobin 35.5 pg (26-34); Mean Corpuscular Volume 104.1 fl (80-100); Mean Platelet Volume 8.7 fl (7.4-10.4); Platelet Count Result 221 k/mm3 (150-375); Red Blood Count 3.44 M/mm3 (4.2-5.4); Red Cell Distribution Width 14.2 % (11.5-14.5); White Blood Count 4.9 K/mm3 (4.5-10.0)
[2022-04-22 11:45] LABS: Anion Gap 10 mmol/L (8-16); Blood Urea Nitrogen 18 mg/dL (7-17); Calcium 9.8 mg/dL (8.4-10.2); Carbon Dioxide 29 mmol/L (22-30); Chloride 103 mmol/L (98-107); Estimated Glomerular Filt Rate > 60; Glucose 78 mg/dL (65-110); Sodium 142 mmol/L (137-145)
[2022-04-22 12:08] LABS: Iron 112 ug/dL (37-170)
[2022-04-22 12:23] LABS: Percent Iron Saturation 31 % (20-50)
== END 2022-04-22 10:47 | disposition home or self-care (01) ==
PROVIDERS: PCP Family Medicine; Visit Provider Family Medicine
DX: D64.9 Anemia, unspecified (principal); I47.1 Supraventricular tachycardia
CPT/HCPCS: 36415; 80048; 82607; 83540; 83550; 85027

== ENCOUNTER 2022-04-30 13:04 | Outpatient (CLI) | payer MEDICARE, MEDICAID, SELFPAY ==
[2022-04-30 13:34] LABS: Basophils Percent Auto 0.5 % (0.2-1.2); Eosinophils Absolute Auto 0.1 K/mm3 (0-0.3); Eosinophils Percent Auto 1.4 % (0-4.4); Hematocrit 37.5 % (37.0-47.0); Hemoglobin 12.6 g/dL (12.0-15.0); Immature Granulocyte Absolute 0.02 K/mm3 (0.00-0.031); Immature Granulocyte Percent A 0.3 % (0-0.5); Lymphocytes Absolute Auto 2.03 K/mm3 (0.9-3.2); Lymphocytes Percent Auto 31.6 % (18.3-44.2); Mean Corpuscular HGB Conc 33.6 g/dl (32-36); Mean Corpuscular Hemoglobin 35.2 pg (26-34); Mean Corpuscular Volume 104.7 fl (80-100); Mean Platelet Volume 8.5 fl (7.4-10.4); Monocytes Absolute Auto 0.4 K/mm3 (0.1-0.6); Monocytes Percent Auto 6.2 % (2.6-8.5); Neutrophils Absolute Auto 3.9 K/mm3 (1.3-6.7); Platelet Count Result 232 k/mm3 (150-375); Red Blood Count 3.58 M/mm3 (4.2-5.4); Red Cell Distribution Width 14.6 % (11.5-14.5); White Blood Count 6.4 K/mm3 (4.5-10.0)
[2022-04-30 13:49] LABS: Alanine Aminotransferase 23 U/L (6-35); Albumin Level 4.7 g/dL (3.5-5.1); Alkaline Phosphatase 96 U/L (38-126); Anion Gap 10 mmol/L (8-16); Aspartate Amino Transferase 30 U/L (14-36); Bilirubin,Total 0.4 mg/dL (0.2-1.3); Blood Urea Nitrogen 14 mg/dL (7-17); Calcium 9.8 mg/dL (8.4-10.2); Carbon Dioxide 31 mmol/L (22-30); Chloride 103 mmol/L (98-107); Estimated Glomerular Filt Rate > 60; Glucose 96 mg/dL (65-110); Magnesium 2.1 mg/dL (1.6-2.3); Potassium 3.9 mmol/L (3.4-5.0); Sodium 144 mmol/L (137-145)
[2022-04-30 14:44] LABS: Iron 101 ug/dL (37-170); Percent Iron Saturation 27 % (20-50)
[2022-05-02 17:58] LABS: CMV IgG Antibody >10.00 U/mL (<0.60)
[2022-05-03 19:10] LABS: CMV IgM Antibody <30.00 AU/mL (<30.00)
[2022-05-04 17:27] LABS: EBV Nuclear Ab Antibody >600.00 U/mL (<18.00); EBV Nuclear Ab Interpretation Past; EBV Virus Capsid Ag IgG Ab >750.00 U/mL (<18.00); EBV Virus Capsid Ag IgM Ab <36.00 U/mL (<36.00)
== END 2022-04-30 13:05 | disposition home or self-care (01) ==
LOC: ANHLAB 13:07
PROVIDERS: PCP Family Medicine; Visit Provider Nurse Practitioner Family
DX: D50.8 Other iron deficiency anemias (principal); M25.50 Pain in unspecified joint; I10 Essential (primary) hypertension; G25.81 Restless legs syndrome; I47.1 Supraventricular tachycardia
CPT/HCPCS: 36415; 80053; 82728; 83540; 83550; 83735; 85025; 86644; 86645; 86664; 86665

== ENCOUNTER 2022-05-02 11:35 | Outpatient (CLI) | payer MEDICARE, MEDICAID, SELFPAY ==
--- NOTE | ~2022-05-02 | XR_ITS ---
EXAMINATION: XR lumbar spine 2-3V DATE: 05/02/2022 12:00 INDICATION: Low back pain TECHNIQUE: Anteroposterior and lateral views of the lumbar spine, and cone-down lateral view of the l umbosacral junction were obtained. COMPARISON: CT, 03/27/2022 FINDINGS: There are changes of anterior and posterior fusion and laminectomy from L1 through L5. Bone alignment is normal. There is no fracture. The vertebral body heights are maintained. There is an IV C filter. Phleboliths are noted in the pelvis. There is mild osteoarthritis of the hips. IMPRESSION: 1. Surgical changes in the lumbar spine without acute findings. Reviewed, dictated and finalized at location F.
== END 2022-05-02 11:36 | disposition home or self-care (01) ==
LOC: ANHIMG 11:40
PROVIDERS: PCP Family Medicine; Visit Provider Neurological Surgery
DX: M54.50 Low back pain, unspecified (principal); Z98.1 Arthrodesis status
CPT/HCPCS: 72100

== ENCOUNTER 2022-05-05 15:01 | Outpatient (CLI) | payer MEDICARE, MEDICAID, SELFPAY ==
--- NOTE | ~2022-05-05 | US_ITS ---
EXAMINATION: US abdomen complete DATE: 05/05/2022 16:09 INDICATION: Unspecified abdominal pain. TECHNIQUE: Multiple grayscale and Doppler ultrasound images of the abdomen were obtained. COMPARISON: CT abdomen and pelvis 01/23/22 FINDINGS: The visualized portions of the head, body, and tail of the pancreas are normal. The liver i s normal without focal lesion. There is normal flow in main portal vein. The gallbladder is normal in size. No gallstones or gallbladder wall thickening. There is no sonographic Tinoco sign. The common duct is normal and measures 4 mm. The kidneys are normal in size. The spleen is normal in size. Abdom inal aorta is normal in caliber. The visualized portion of the inferior vena cava is normal. IMPRESSION: 1. Normal complete abdomen ultrasound. Reviewed, dictated and finalized at location B.
== END 2022-05-05 15:02 | disposition home or self-care (01) ==
PROVIDERS: PCP Family Medicine; Visit Provider Nurse Practitioner Family
DX: R10.9 Unspecified abdominal pain (principal)
CPT/HCPCS: 76700

== ENCOUNTER 2022-05-05 16:35 | Emergency (ER) | payer MEDICARE, MEDICAID, SELFPAY ==
--- NOTE | ~2022-05-05 | CT_ITS ---
EXAMINATION: CT abdomen pelvis w con DATE: 05/05/2022 19:35 INDICATION: LLQ abd pain TECHNIQUE: Computed tomography (CT) of the abdomen and pelvis was performed with 100 mL Omnipaque-350 intravenous contrast. Automated exposure control and iterative reconstruction technique were employe d. The dose-length product was 790.31 mGy-cm. COMPARISON: 01/23/2022. FINDINGS: Lower thorax: Incompletely visualized pacing wires. Liver: Mild enlargement. Right lobe hypodensities, too small to characterize. Biliary/Gallbladder: Gallbladder is normal. No bile duct dilation. Pancreas: No mass or duct dilation. Spleen: Normal. Adrenals:No mass. Kidneys: Simple right upper pole cyst. Additional bilateral subcentimeter hypodensities, too small to characterize. No obstructing calcification. No hydronephrosis. GI tract: Distal esophageal and gastric wall edema. No small or large bowel dilation. Normal appendix . Diverticulosis without diverticulitis. Mesentery/Peritoneum: No ascites, mass, or free air. Retroperitoneum: No mass. IVC filter. Atherosclerotic abdominal aortic and/or arterial calcifications . Pelvis: Pelvic organs are within normal limits. 2.5 cm ovoid fat density lobule immediately adjacent to the sigmoid in the deep pelvis with surrounding thin rim of enhancement/inflammation. Soft Tissues: Right flank stimulator pack, electrodes project in the lower thoracic canal. Bones: No acute osseous finding. Posterior lumbar fusion, without hardware-related complication. IMPRESSION: Esophagitis/gastritis. Epiploic appendagitis off the sigmoid, in the deep pelvis. No other acute abdo minopelvic process detected. Reviewed, dictated and finalized at location K. IMPRESSION: Esophagitis/gastritis. Epiploic appendagitis off the sigmoid, in the deep pelvi s. No other acute abdominopelvic process detected.
[2022-05-05 16:43] VITALS: BP 153/90; PULSE 75; RESP 15; TEMP 36.5; O2SAT 100
[2022-05-05 17:00] LABS: Basophils Percent Auto 0.3 % (0.2-1.2); Eosinophils Absolute Auto 0.1 K/mm3 (0-0.3); Eosinophils Percent Auto 1.2 % (0-4.4); Hematocrit 38.8 % (37.0-47.0); Immature Granulocyte Absolute 0.02 K/mm3 (0.00-0.031); Immature Granulocyte Percent A 0.3 % (0-0.5); Lymphocytes Absolute Auto 2.02 K/mm3 (0.9-3.2); Lymphocytes Percent Auto 35.3 % (18.3-44.2); Mean Corpuscular HGB Conc 33.5 g/dl (32-36); Mean Corpuscular Hemoglobin 35.1 pg (26-34); Mean Corpuscular Volume 104.9 fl (80-100); Mean Platelet Volume 8.7 fl (7.4-10.4); Monocytes Absolute Auto 0.4 K/mm3 (0.1-0.6); Monocytes Percent Auto 6.1 % (2.6-8.5); Neutrophils Absolute Auto 3.2 K/mm3 (1.3-6.7); Neutrophils Percent Auto 56.8 % (45.5-73.1); Platelet Count Result 233 k/mm3 (150-375); Red Cell Distribution Width 14.5 % (11.5-14.5); White Blood Count 5.7 K/mm3 (4.5-10.0)
[2022-05-05 17:09] LABS: Add Urine Microscopic? YES; Appearance Urine Cloudy (Clear); Bilirubin Urine Negative (Negative); Blood Urine Negative (Negative); Color Urine Yellow (Yellow); Glucose Urine UA Negative (Negative); Ketones Urine Negative (Negative); Leukocyte Esterase Ur 1+ LEU/UL (Negative); Mucus Urine Moderate /lpf; Nitrate Urine Negative (Negative); Protein Urine Negative (Negative); Squamous Epithelial Cell Urine Moderate /hpf (Few); Urobilinogen Urine Negative mg/dL (<2.0)
[2022-05-05 17:15] LABS: Alanine Aminotransferase 21 U/L (6-35); Albumin Level 4.7 g/dL (3.5-5.1); Alkaline Phosphatase 87 U/L (38-126); Anion Gap 12 mmol/L (8-16); Aspartate Amino Transferase 26 U/L (14-36); Bilirubin,Total 0.5 mg/dL (0.2-1.3); Blood Urea Nitrogen 16 mg/dL (7-17); Calcium 10.1 mg/dL (8.4-10.2); Carbon Dioxide 30 mmol/L (22-30); Chloride 100 mmol/L (98-107); Estimated CRCL calculation 75 ml/min; Estimated Glomerular Filt Rate > 60; Glucose 98 mg/dL (65-110); Lipase 126 U/L (23-300); Potassium 3.9 mmol/L (3.4-5.0); Sodium 142 mmol/L (137-145)
[2022-05-05 18:08] VITALS: BP 132/94; PULSE 76; RESP 18
--- NOTE | 2022-05-05 18:59 | ED.ABDPAIN ---
HPI - Abdominal Pain General Chief Complaint: Abdominal Pain Stated Complaint: swollen left abd, nausea Time Seen by Provider: 05/05/22 18:31 History of Present Illness HPI narrative: 56-year-old female with a history of anxiety depression, asthma, angina, dyslipidemia, restless legs syndrome and multiple umbilical hernia repairs presents to the emergency room for evaluation of left-sided abdominal pain and swelling for 1 week. Patient reports intermittent episodes of diarrhea and constipation. States pain is a twisting sensation and does not radiate. Also reports occasional nausea without vomiting. Patient was seen at her primary care physician's office earlier today and had an ultrasound of her abdomen completed. On chart review, ultrasound showed no acute intra-abdominal abnormalities. Patient is in the emergency room requesting a CAT scan to evaluate further for possible diverticulitis Related Data Home Medications Medication Instructions Recorded Confirmed folic acid 1 mg tablet 1 mg PO DAILY 02/19/21 04/30/22 ascorbic acid (vitamin C) 500 mg 500 mg PO DAILY 01/29/22 04/30/22 tablet (Vitamin C) elderberry fruit 200 mg capsule 200 mg PO DAILY 01/29/22 04/30/22 vitamin B complex 1 tablet PO DAILY 01/29/22 04/30/22 golimumab 50 mg/0.5 mL 50 mg subcut MONTHLY 03/19/22 04/30/22 subcutaneous pen injector (Simponi) mupirocin 2 % topical ointment 1 applic topical BID 03/19/22 04/30/22 sucralfate 1 gram tablet 2 g DAILY PRN ULCER 03/19/22 04/30/22 aspirin 81 mg tablet,delayed 81 mg PO .QD 04/18/22 04/30/22 release (Adult Low Dose Aspirin) colestipol 1 gram tablet 1 g PO .QD PRN 04/18/22 04/30/22 metoprolol succinate 50 mg 50 mg PO DAILY 04/30/22 04/30/22 tablet,extended release 24 hr Allergies Allergy/AdvReac Type Severity Reaction Status Date / Time meclizine Allergy Severe Rash Verified 04/30/22 11:04 carbamazepine [From Tegretol] Allergy Intermediate Blister Verified 04/30/22 11:04 Cephalosporins Allergy Mild RASH Verified 04/30/22 11:04 clarithromycin Allergy Mild RASH Verified 04/30/22 11:04 imipramine Allergy Mild RASH Verified 04/30/22 11:04 Penicillins Allergy Mild HIVES Verified 04/30/22 11:04 cefuroxime [From Ceftin] Allergy Hives Verified 04/30/22 11:04 etanercept [From Enbrel] Allergy Redness of Verified 04/30/22 11:04 Skin hydromorphone [From Dilaudid] Allergy Hives Verified 04/30/22 11:04 oxycodone [From Percocet] Allergy Hives Verified 04/30/22 11:04 prochlorperazine Allergy Swelling Verified 04/30/22 11:04 [From Compazine] of Lip/Tongue/Throat propoxyphene [From Darvon] Allergy Hives Verified 04/30/22 11:04 propranolol [From Inderal LA] Allergy Rash Verified 04/30/22 11:04 alcohol AdvReac Severe Blister Verified 04/30/22 11:04 [From Mastisol Adhesive] gum mastic AdvReac Severe Blister Verified 04/30/22 11:04 [From Mastisol Adhesive] methyl salicylate AdvReac Severe Blister Verified 04/30/22 11:04 [From Mastisol Adhesive] storax AdvReac Severe Blister Verified 04/30/22 11:04 [From Mastisol Adhesive] tizanidine AdvReac Intermediate Hallucinati Verified 04/30/22 11:04 ng codeine AdvReac Unknown Vomiting Verified 04/30/22 11:04 diphenhydramine AdvReac Vomiting Verified 04/30/22 11:04 [From Benadryl] hydrocodone [From Vicodin] AdvReac Vomiting Verified 04/30/22 11:04 Review of Systems Review of Systems: CONSTITUTIONAL: Denies fever, chills, or sweats. EYES: Denies visual changes, redness, or discharge. ENT: Denies rhinorrhea, congestion, sore throat, or otalgia. CARDIOVASCULAR: Denies chest pain, palpitations, or edema. RESPIRATORY: Denies cough or dyspnea. GASTROINTESTINAL: Reports abdominal pain, nausea GENITOURINARY: Denies dysuria or hematuria. SKIN: Denies rash or itching. MUSCULOSKELETAL: Denies back pain, joint pain, or myalgia. NEUROLOGIC: Denies headache, numbness, dizziness, or weakness. PSYCHIATRIC: Denies anxiety or depression. [facility] Past Med
[2022-05-05] MEDS: ONDANSETRON INJ 4 MG/2 ML VIAL IV PUSH (19:20)
[2022-05-05] MEDS: SODIUM CHLORIDE 0.9% IV 1,000 ML 999 ML IV CONT (19:20)
[2022-05-05] MEDS: DICYCLOMINE HCL INJ 20 MG/2 ML VIAL IM (19:20)
[2022-05-05] MEDS: KETOROLAC 30 MG/ML VIAL (*BKC) IV PUSH (20:03)
[2022-05-05 21:09] VITALS: BP 132/68; PULSE 78; RESP 18; O2SAT 99
== END 2022-05-05 21:11 | disposition home or self-care (01) ==
PROVIDERS: Emergency Medicine; Emergency Provider Nurse Practitioner Family; PCP Family Medicine
DX: K63.89 Other specified diseases of intestine (principal); I48.0 Paroxysmal atrial fibrillation; J45.909 Unspecified asthma, uncomplicated; G25.81 Restless legs syndrome; E78.2 Mixed hyperlipidemia; I10 Essential (primary) hypertension; M79.7 Fibromyalgia; M06.09 Rheumatoid arthritis without rheumatoid factor, multiple sites; F41.9 Anxiety disorder, unspecified; F32.A Depression, unspecified; Z86.718 Personal history of other venous thrombosis and embolism; Z86.73 Personal history of transient ischemic attack (TIA), and cerebral infarction without residual deficits; Z86.2 Personal history of diseases of the blood and blood-forming organs and certain disorders involving the immune mechanism; Z95.0 Presence of cardiac pacemaker; Z90.79 Acquired absence of other genital organ(s); K20.90 Esophagitis, unspecified without bleeding; K29.70 Gastritis, unspecified, without bleeding; Z79.82 Long term (current) use of aspirin
CPT/HCPCS: 36415; 74177; 76700; 80053; 81001; 83690; 85025; 87077; 87086; 87186; 96361; 96372; 96374; 96375; 99284; J0500; J1885; J2405; J7030; Q9967

== ENCOUNTER 2022-07-29 09:59 | Outpatient (CLI) | payer MEDICARE, MEDICAID, SELFPAY ==
[2022-07-29 10:36] LABS: Basophils Percent Auto 0.4 % (0.2-1.2); Eosinophils Absolute Auto 0.1 K/mm3 (0-0.3); Hematocrit 38.2 % (37.0-47.0); Hemoglobin 13.4 g/dL (12.0-15.0); Immature Granulocyte Absolute 0.01 K/mm3 (0.00-0.031); Immature Granulocyte Percent A 0.2 % (0-0.5); Lymphocytes Absolute Auto 1.38 K/mm3 (0.9-3.2); Lymphocytes Percent Auto 28.2 % (18.3-44.2); Mean Corpuscular HGB Conc 35.1 g/dl (32-36); Mean Corpuscular Hemoglobin 34.5 pg (26-34); Mean Corpuscular Volume 98.5 fl (80-100); Mean Platelet Volume 8.3 fl (7.4-10.4); Monocytes Absolute Auto 0.3 K/mm3 (0.1-0.6); Monocytes Percent Auto 5.9 % (2.6-8.5); Neutrophils Absolute Auto 3.1 K/mm3 (1.3-6.7); Neutrophils Percent Auto 63.3 % (45.5-73.1); Platelet Count Result 192 k/mm3 (150-375); Red Blood Count 3.88 M/mm3 (4.2-5.4); Red Cell Distribution Width 12.8 % (11.5-14.5); White Blood Count 4.9 K/mm3 (4.5-10.0)
[2022-08-03 21:36] LABS: EBV Nuclear Ab Antibody >600.00 U/mL (<18.00); EBV Nuclear Ab Interpretation Past; EBV Virus Capsid Ag IgG Ab >750.00 U/mL (<18.00); EBV Virus Capsid Ag IgM Ab <36.00 U/mL (<36.00)
== END 2022-07-29 10:00 | disposition home or self-care (01) ==
LOC: ANHLAB 10:02
PROVIDERS: PCP Family Medicine; Visit Provider Physician Assistant Medical
DX: E55.9 Vitamin D deficiency, unspecified (principal); R53.83 Other fatigue
CPT/HCPCS: 36415; 82306; 85025; 86664; 86665

== ENCOUNTER 2022-07-31 11:54 | Outpatient (CLI) | payer MEDICARE, MEDICAID, SELFPAY ==
--- NOTE | ~2022-07-31 | XR_ITS ---
EXAMINATION: XR lumbar spine 2-3V DATE: 07/31/2022 12:18 INDICATION: Back pain TECHNIQUE: Anteroposterior and lateral views of the lumbar spine, and cone-down lateral view of the l umbosacral junction were obtained. COMPARISON: 05/02/2022 again noted are changes of anterior and posterior fusion and laminectomy from L1 through L5. FINDINGS: Again noted are changes of anterior and posterior fusion and laminectomy from L1 through L5 . There is no fracture. Bone alignment is normal. An IVC filter is noted. The prevertebral soft tissu es are normal. There is unchanged moderate loss of intervertebral disc space height at L5-S1. A neuro stimulator device is implanted posteriorly in the subcutaneous tissues of the right flank. Its leads enter the central spinal canal at the T10 level and course above the superior margin of the radiograp h. IMPRESSION: 1. Postsurgical changes without acute osseous abnormality. Reviewed, dictated and finalized at location L. BUILDER MACHINE
== END 2022-07-31 11:55 | disposition home or self-care (01) ==
PROVIDERS: PCP Family Medicine; Visit Provider Neurological Surgery
DX: M54.50 Low back pain, unspecified (principal); W06.XXXA Fall from bed, initial encounter
CPT/HCPCS: 72100

== ENCOUNTER 2022-08-01 08:51 | Outpatient (CLI) | payer MEDICARE, MEDICAID, SELFPAY ==
--- NOTE | ~2022-08-01 | XR_ITS ---
EXAMINATION: XR knee RT 3V DATE: 08/01/2022 09:12 INDICATION: Right knee pain. TECHNIQUE: 3 views of right knee were obtained. COMPARISON: Right knee radiographs 10/21/2021 FINDINGS: Bone alignment is normal. No fracture. There is mild tricompartmental osteoarthritis. No kn ee joint effusion. IMPRESSION: 1. Mild right knee osteoarthritis. Reviewed, dictated and finalized at location A. [employer]ED TR[employer]IVER
== END 2022-08-01 08:52 | disposition home or self-care (01) ==
PROVIDERS: PCP Family Medicine; Visit Provider Nurse Practitioner Family
DX: M17.11 Unilateral primary osteoarthritis, right knee (principal)
CPT/HCPCS: 73562

== ENCOUNTER 2022-08-19 11:34 | Emergency (ER) | payer MEDICARE, MEDICAID, SELFPAY ==
[2022-08-19 12:06] VITALS: BP 113/72; PULSE 83; RESP 18; TEMP 36.1; O2SAT 100
--- NOTE | 2022-08-19 12:20 | ED.URI ---
HPI - URI/Sore Throat General Chief Complaint: Upper Respiratory Infection Stated Complaint: cold symptoms Time Seen by Provider: 08/19/22 12:21 Source: patient, RN notes reviewed and old records reviewed Mode of arrival: ambulatory Limitations: no limitations History of Present Illness HPI Narrative: 56 year old female who presents to [facility] care with complaints of cough with chest feeling tight with cough for about a week duration. 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 Patient states that her ears have pressure she had some body aches yesterday and also fatigue. Patient denies any fever or any nausea, vomiting or diarrhea. Patient has even nonlabored respirations, no tachypnea with SAO2 100% on room air able to talk in full sentences.Patient has inhaler at home but has not used, and nasal spray which she reports using. Patient reports that she has had 3 back surgeries and she has spinal cord stimulator for pain management along with pain patches. MD elicited complaint: cough and sore throat Onset (ago): week(s) (1 week) Pain scale (0-10): 4 Able to tolerate fluids by mouth: Yes Treatments prior to arrival: other (steroid antibiotic) Related Data Home Medications Medication Instructions Recorded Confirmed ascorbic acid (vitamin C) 500 mg 500 mg PO DAILY 01/29/22 08/19/22 tablet (Vitamin C) elderberry fruit 200 mg capsule 200 mg PO DAILY 01/29/22 08/19/22 golimumab 50 mg/0.5 mL 50 mg subcut MONTHLY 03/19/22 08/19/22 subcutaneous pen injector (Simponi) sucralfate 1 gram tablet (Carafate) 2 g DAILY PRN ULCER 03/19/22 08/19/22 aspirin 81 mg tablet,delayed 81 mg PO .QD 04/18/22 08/19/22 release (Adult Low Dose Aspirin) metoprolol succinate 50 mg 50 mg PO QAM 06/19/22 08/19/22 tablet,extended release 24 hr triamcinolone acetonide 0.5 % 1 applic topical DAILY 08/01/22 08/19/22 topical cream (Triderm) ciprofloxacin HCl 500 mg tablet 500 mg PO BID 08/19/22 08/19/22 prednisone 5 mg tablet 5 mg PO QID 08/19/22 08/19/22 Allergies Allergy/AdvReac Type Severity Reaction Status Date / Time meclizine Allergy Severe Rash Verified 08/19/22 11:51 carbamazepine [From Tegretol] Allergy Intermediate Blister Verified 08/19/22 11:51 Cephalosporins Allergy Mild RASH Verified 08/19/22 11:51 clarithromycin Allergy Mild RASH Verified 08/19/22 11:51 imipramine Allergy Mild RASH Verified 08/19/22 11:51 Penicillins Allergy Mild HIVES Verified 08/19/22 11:51 cefuroxime [From Ceftin] Allergy Hives Verified 08/19/22 11:51 etanercept [From Enbrel] Allergy Redness of Verified 08/19/22 11:51 Skin hydromorphone [From Dilaudid] Allergy Hives Verified 08/19/22 11:51 oxycodone [From Percocet] Allergy Hives Verified 08/19/22 11:51 prochlorperazine Allergy Swelling Verified 08/19/22 11:51 [From Compazine] of Lip/Tongue/Throat propoxyphene [From Darvon] Allergy Hives Verified 08/19/22 11:51 propranolol [From Inderal LA] Allergy Rash Verified 08/19/22 11:51 alcohol AdvReac Severe Blister Verified 08/19/22 11:51 [From Mastisol Adhesive] gum mastic AdvReac Severe Blister Verified 08/19/22 11:51 [From Mastisol Adhesive] methyl salicylate AdvReac Severe Blister Verified 08/19/22 11:51 [From Mastisol Adhesive] storax AdvReac Severe Blister Verified 08/19/22 11:51 [From Mastisol Adhesive] tizanidine AdvReac Intermediate Hallucinati Verified 08/19/22 11:51 ng codeine AdvReac Unknown Vomiting Verified 08/19/22 11:51 diphenhydramine AdvReac Vomiting Verified 08/19/22 11:51 [From Benadryl] hydrocodone [From Vicodin] AdvReac Vomiting Verified 08/19/22 11:51 Review of Systems Review of Systems: CONSTITUTIONAL: Denies malaise, chills, sweats, or fever. EYES: Denies visual changes, redness, or discharge. ENT: Reports rhinorrhea, congestion, sinus pain, otalgia no sore throat. CARDIOVASCULAR: repo
== END 2022-08-19 13:04 | disposition home or self-care (01) ==
PROVIDERS: Emergency Provider Registered Nurse; PCP Family Medicine
DX: H65.91 Unspecified nonsuppurative otitis media, right ear (principal); I10 Essential (primary) hypertension; E78.2 Mixed hyperlipidemia; I48.0 Paroxysmal atrial fibrillation; G25.81 Restless legs syndrome; M06.09 Rheumatoid arthritis without rheumatoid factor, multiple sites; Z86.73 Personal history of transient ischemic attack (TIA), and cerebral infarction without residual deficits; Z95.0 Presence of cardiac pacemaker; Z96.82 Presence of neurostimulator; Z79.82 Long term (current) use of aspirin; F41.9 Anxiety disorder, unspecified
CPT/HCPCS: 99213; G0463

== ENCOUNTER 2022-08-20 16:26 | Outpatient (CLI) | payer MEDICARE, MEDICAID, SELFPAY ==
--- NOTE | ~2022-08-20 | CT_ITS ---
EXAMINATION: CT abdomen pelvis w con DATE: 08/20/2022 17:51 INDICATION: Left lower quadrant abdominal pain. TECHNIQUE: Computed tomography (CT) of the abdomen and pelvis was performed with 100 mL Omnipaque 350 intravenous contrast. Automated exposure control and iterative reconstruction technique were employe d. The dose-length product was 1165.07 mGy-cm. COMPARISON: CT abdomen and pelvis 05/05/2022 FINDINGS: The visualized portions of the lung bases demonstrate mild atelectasis. There are mild grou ndglass opacities and small nodules in left lower lobe, consistent with pneumonia. No pleural effusio n. The heart size is normal. There are pacer wires in right atrium and right ventricle. No pericardia l effusion. There is a 5 mm cyst in the liver. The gallbladder is contracted. The spleen, pancreas, a nd adrenal glands are normal. There are cysts in the kidneys measuring up to 12 mm on the right. Ther e is a filter in the inferior vena cava. There is diverticulosis of the colon without evidence of div erticulitis. Again seen is a focus of old fat necrosis adjacent to the sigmoid colon. There are no di lated loops of bowel. The appendix is normal. There are no pathologically enlarged lymph nodes. There is no free intraperitoneal fluid. Epidural electrodes are noted with subcutaneous electronic device in right flank. There are changes of anterior and posterior fusion procedures in lumbar spine. IMPRESSION: 1. Mild pneumonia in left lower lobe. Reviewed, dictated and finalized at location A. R [employer]
[2022-08-20 18:21] LABS: Basophils Percent Auto 0.3 % (0.2-1.2); Eosinophils Percent Auto 0.5 % (0-4.4); Hematocrit 34.9 % (37.0-47.0); Hemoglobin 11.9 g/dL (12.0-15.0); Immature Granulocyte Absolute 0.01 K/mm3 (0.00-0.031); Immature Granulocyte Percent A 0.2 % (0-0.5); Lymphocytes Absolute Auto 1.29 K/mm3 (0.9-3.2); Lymphocytes Percent Auto 22.3 % (18.3-44.2); Mean Corpuscular HGB Conc 34.1 g/dl (32-36); Mean Corpuscular Hemoglobin 35.1 pg (26-34); Mean Corpuscular Volume 102.9 fl (80-100); Monocytes Absolute Auto 0.3 K/mm3 (0.1-0.6); Monocytes Percent Auto 5.5 % (2.6-8.5); Neutrophils Absolute Auto 4.1 K/mm3 (1.3-6.7); Neutrophils Percent Auto 71.2 % (45.5-73.1); Platelet Count Result 209 k/mm3 (150-375); Red Blood Count 3.39 M/mm3 (4.2-5.4); Red Cell Distribution Width 13.5 % (11.5-14.5); White Blood Count 5.8 K/mm3 (4.5-10.0)
[2022-08-20 18:30] LABS: Alanine Aminotransferase 24 U/L (6-35); Alkaline Phosphatase 81 U/L (38-126); Amylase 85 U/L (30-110); Anion Gap 5 mmol/L (8-16); Aspartate Amino Transferase 23 U/L (14-36); Bilirubin,Total 0.5 mg/dL (0.2-1.3); Blood Urea Nitrogen 27 mg/dL (7-17); Calcium 8.9 mg/dL (8.4-10.2); Carbon Dioxide 29 mmol/L (22-30); Chloride 104 mmol/L (98-107); Estimated Glomerular Filt Rate > 60; Glucose 115 mg/dL (65-110); Lipase 159 U/L (23-300); Potassium 4.2 mmol/L (3.4-5.0); Sodium 138 mmol/L (137-145)
== END 2022-08-20 16:27 | disposition home or self-care (01) ==
PROVIDERS: PCP Family Medicine; Visit Provider Nurse Practitioner Family
DX: R10.32 Left lower quadrant pain (principal); J18.9 Pneumonia, unspecified organism
CPT/HCPCS: 36415; 74177; 80053; 82150; 83690; 85025; Q9967

== ENCOUNTER 2022-09-01 10:45 | Emergency (ER) | payer MEDICARE, MEDICAID, SELFPAY ==
--- NOTE | ~2022-09-01 | XR_ITS ---
EXAMINATION: XR finger 2nd RT min 2V INDICATION: Right second finger pain TECHNIQUE: Four views of the right second finger are obtained. COMPARISON: 06/28/2018 FINDINGS: No fracture, dislocation, or subluxation. The bones, soft tissues, and joint spaces are nor mal. IMPRESSION: 1. No acute osseous abnormality. Reviewed, dictated and finalized at location B. T LITERACY INSTRUCTOR
[2022-09-01 10:56] VITALS: BP 129/80; PULSE 85; RESP 18; TEMP 36.8; O2SAT 97
[2022-09-01 10:59] VITALS: BP 129/80; PULSE 85; RESP 18; TEMP 36.8; O2SAT 97
--- NOTE | 2022-09-01 11:13 | ED.UPPEXIN ---
HPI - Extremity Injury (Upper) General Chief Complaint: Extremity Injury, Upper Stated Complaint: finger injury(rt hand) Source: patient Mode of arrival: ambulatory Limitations: no limitations History of Present Illness HPI narrative: 57-year-old female presents to [facility] with complaints of pain and swelling to her right index finger with the past 2 days. Patient reports that her symptoms started after she was playing with her grandson but is unsure of the exact injury. Patient has not tried taking any [id number] medications for her symptoms. MD complaint: injury to: right and finger Other Extremity Injury: Right: fingers (right index finger ) Place: home Relieving factors: none Exacerbating factors: movement of extremity Associated symptoms: denies other symptoms Related Data Home Medications Medication Instructions Recorded Confirmed ascorbic acid (vitamin C) 500 mg 500 mg PO DAILY 01/29/22 09/01/22 tablet (Vitamin C) elderberry fruit 200 mg capsule 200 mg PO DAILY 01/29/22 09/01/22 golimumab 50 mg/0.5 mL 50 mg subcut MONTHLY 03/19/22 09/01/22 subcutaneous pen injector (Simponi) sucralfate 1 gram tablet (Carafate) 2 g DAILY PRN ULCER 03/19/22 09/01/22 aspirin 81 mg tablet,delayed 81 mg PO .QD 04/18/22 09/01/22 release (Adult Low Dose Aspirin) metoprolol succinate 50 mg 50 mg PO QAM 06/19/22 09/01/22 tablet,extended release 24 hr triamcinolone acetonide 0.5 % 1 applic topical DAILY 08/01/22 09/01/22 topical cream (Triderm) Allergies Allergy/AdvReac Type Severity Reaction Status Date / Time meclizine Allergy Severe Rash Verified 08/20/22 13:44 carbamazepine [From Tegretol] Allergy Intermediate Blister Verified 08/20/22 13:44 Cephalosporins Allergy Mild RASH Verified 08/20/22 13:44 clarithromycin Allergy Mild RASH Verified 08/20/22 13:44 imipramine Allergy Mild RASH Verified 08/20/22 13:44 Penicillins Allergy Mild HIVES Verified 08/20/22 13:44 cefuroxime [From Ceftin] Allergy Hives Verified 08/20/22 13:44 etanercept [From Enbrel] Allergy Redness of Verified 08/20/22 13:44 Skin hydromorphone [From Dilaudid] Allergy Hives Verified 08/20/22 13:44 oxycodone [From Percocet] Allergy Hives Verified 08/20/22 13:44 prochlorperazine Allergy Swelling Verified 08/20/22 13:44 [From Compazine] of Lip/Tongue/Throat propoxyphene [From Darvon] Allergy Hives Verified 08/20/22 13:44 propranolol [From Inderal LA] Allergy Rash Verified 08/20/22 13:44 alcohol AdvReac Severe Blister Verified 08/20/22 13:44 [From Mastisol Adhesive] gum mastic AdvReac Severe Blister Verified 08/20/22 13:44 [From Mastisol Adhesive] methyl salicylate AdvReac Severe Blister Verified 08/20/22 13:44 [From Mastisol Adhesive] storax AdvReac Severe Blister Verified 08/20/22 13:44 [From Mastisol Adhesive] tizanidine AdvReac Intermediate Hallucinati Verified 08/20/22 13:44 ng codeine AdvReac Unknown Vomiting Verified 08/20/22 13:44 diphenhydramine AdvReac Vomiting Verified 08/20/22 13:44 [From Benadryl] hydrocodone [From Vicodin] AdvReac Vomiting Verified 08/20/22 13:44 Review of Systems Constitutional: Constitutional: Denies chills, Denies fatigue, Denies fever(s) and Denies weakness ENT: Denies vertigo and Denies dizziness Cardiovascular: Cardiovascular: Denies chest pain Respiratory: Respiratory: Denies cough, Denies dyspnea and Denies wheezing Musculoskeletal: Musculoskeletal: Reports arthralgias and Reports joint swelling Integumentary/Breasts: Skin/Breast: Denies pruritus, Denies erythema, Denies rash and Denies skin ulcer PMFSH Past Medical History Medical History A-fib Abdominal bloating Abdominal lump Abnormality of heart beat Allergic dermatitis Allergic reaction to allergy skin test Anemia, unspecified Anxiety Anxiety about health Ataxia Atopic dermatitis Atypical face pain BMI 26.0-26.9,adult BMI 27.0-27.9,adult B
== END 2022-09-01 11:54 | disposition home or self-care (01) ==
PROVIDERS: Emergency Provider Nurse Practitioner Family; PCP Family Medicine
DX: M79.644 Pain in right finger(s) (principal); I10 Essential (primary) hypertension; M79.7 Fibromyalgia; E78.2 Mixed hyperlipidemia; I48.0 Paroxysmal atrial fibrillation; G25.81 Restless legs syndrome; M06.9 Rheumatoid arthritis, unspecified; Z86.73 Personal history of transient ischemic attack (TIA), and cerebral infarction without residual deficits; Z95.0 Presence of cardiac pacemaker; Z96.82 Presence of neurostimulator; Z79.82 Long term (current) use of aspirin; F41.9 Anxiety disorder, unspecified
CPT/HCPCS: 29130; 73140; 99213; G0463

== ENCOUNTER 2022-09-02 11:48 | Outpatient (CLI) | payer MEDICARE, MEDICAID, SELFPAY ==
--- NOTE | ~2022-09-02 | XR_ITS ---
EXAMINATION: XR chest 2V DATE: 09/02/2022 12:13 INDICATION: Pneumonia, unspecified TECHNIQUE: PA and lateral views of the chest are obtained. COMPARISON: 06/14/2021 FINDINGS: The lungs are free of acute opacities. No pleural effusion or pneumothorax. The cardiomedia stinal silhouette is normal. There are bridging osteophytes at multiple levels in the spine, consiste nt with diffuse idiopathic skeletal hyperostosis (DISH). A triple lead cardiac pacemaker of the left chest wall ends with leads in expected locations. Neurostimulator leads and posteriorly in the centra l spinal canal at the level of the T10 vertebral body. There are partially imaged changes of lumbar f usion. IMPRESSION: 1. No acute cardiopulmonary abnormality. Reviewed, dictated and finalized at location L. MANAGERS
== END 2022-09-02 11:49 | disposition home or self-care (01) ==
PROVIDERS: PCP Family Medicine; Visit Provider Nurse Practitioner Family
DX: J18.9 Pneumonia, unspecified organism (principal)
CPT/HCPCS: 71046

== ENCOUNTER 2022-09-15 09:35 | Outpatient (CLI) | payer MEDICARE, MEDICAID, SELFPAY ==
--- NOTE | ~2022-09-15 | XR_ITS ---
Lumbosacral Spine: AP and lateral views Clinical History: Postoperative COMPARISON: 07/31/2022 Findings: The normal lordotic curve is maintained. Posterior fusion hardware from L1 through L5 is un changed. Interbody disc fusion devices are unchanged. Osseous alignment is unchanged. IVC filter is i n place. Stable laminectomy defects at L4 and L5. Intrathecal neurostimulator device present. The sac roiliac joints are normally outlined. Impression: No change from prior exam. Extensive postoperative changes, as noted above, stable from prior exam. Osseous alignment is unchang ed. Reviewed, dictated and finalized at location M. TUBER MACHINE Impression: No change from prior exam. Extensive postoperative changes, as noted above, stable from prior exam. Osseou s alignment is unchanged.
== END 2022-09-15 09:36 | disposition home or self-care (01) ==
PROVIDERS: PCP Family Medicine; Visit Provider Neurological Surgery
DX: M54.50 Low back pain, unspecified (principal)
CPT/HCPCS: 72100

== ENCOUNTER 2022-09-22 14:25 | Outpatient (CLI) | payer MEDICARE, MEDICAID, SELFPAY ==
--- NOTE | ~2022-09-22 | CT_ITS ---
EXAMINATION: CT soft tissue neck w con DATE: 09/22/2022 15:12 INDICATION: Left tonsillar mass. TECHNIQUE: Computed tomography (CT) of the neck was performed with 75 mL Omnipaque-350 intravenous co ntrast. Automated exposure control and iterative reconstruction technique were employed. The dose-ashwin gth product was 527.52 mGy-cm. COMPARISON: None FINDINGS: There are no pathologically enlarged lymph nodes. There is plaque in the proximal internal carotid arteries with 0% stenosis relative to normal distal artery lumen diameters. The palatine tons ils and lingual tonsils are normal. The parotid glands are normal. There is a left chest pacer. There is severe cervical spondylosis. There is a small right mastoid effusion. IMPRESSION: 1. No abscess. No malignancy. Reviewed, dictated and finalized at location A. ER FISHERMAN
== END 2022-09-22 14:26 | disposition home or self-care (01) ==
PROVIDERS: PCP Family Medicine; Visit Provider Otolaryngology
DX: J35.1 Hypertrophy of tonsils (principal)
CPT/HCPCS: 70491; Q9967

== ENCOUNTER 2022-10-27 15:05 | Outpatient (CLI) | payer MEDICARE, MEDICAID, SELFPAY ==
--- NOTE | ~2022-10-27 | CT_ITS ---
EXAMINATION: CT knee RT wo con DATE: 10/27/2022 15:28 INDICATION: Right knee joint instability. TECHNIQUE: Computed tomography (CT) of the right knee was performed without intravenous contrast. Aut omated exposure control and iterative reconstruction technique were employed. The dose-length product was 495.06 mGy-cm. COMPARISON: Right knee CT 09/24/2016, radiographs 08/01/2022 FINDINGS: Bone alignment is normal. No fracture. There is mild tricompartmental osteoarthritis. There is a small knee joint effusion. IMPRESSION: 1. Mild right knee osteoarthritis. 2. Small right knee joint effusion. Reviewed, dictated and finalized at location A.
== END 2022-10-27 15:06 | disposition home or self-care (01) ==
PROVIDERS: PCP Family Medicine; Visit Provider Nurse Practitioner Family
DX: M25.361 Other instability, right knee (principal); M17.11 Unilateral primary osteoarthritis, right knee; M25.461 Effusion, right knee
CPT/HCPCS: 73700

== ENCOUNTER 2022-11-10 14:52 | Outpatient (CLI) | payer MEDICARE, MEDICAID, SELFPAY ==
[2022-11-10 15:34] LABS: Hematocrit 37.3 % (37.0-47.0); Mean Corpuscular HGB Conc 34.9 g/dl (32-36); Mean Corpuscular Hemoglobin 35.2 pg (26-34); Mean Corpuscular Volume 101.1 fl (80-100); Mean Platelet Volume 9.1 fl (7.4-10.4); Platelet Count Result 188 k/mm3 (150-375); Red Blood Count 3.69 M/mm3 (4.2-5.4); Red Cell Distribution Width 12.9 % (11.5-14.5); White Blood Count 4.3 K/mm3 (4.5-10.0)
[2022-11-10 17:03] LABS: Iron 125 ug/dL (37-170)
[2022-11-10 17:14] LABS: Percent Iron Saturation 36 % (20-50)
== END 2022-11-10 14:53 | disposition home or self-care (01) ==
LOC: ANHLAB 14:55
PROVIDERS: PCP Family Medicine; Visit Provider Family Medicine
DX: G25.81 Restless legs syndrome (principal); D50.8 Other iron deficiency anemias
CPT/HCPCS: 36415; 82607; 82728; 83540; 83550; 85027

== ENCOUNTER 2022-11-17 09:17 | Outpatient (CLI) | payer MEDICARE, MEDICAID, SELFPAY | END 2022-11-17 09:18 | disposition home or self-care (01) | LOC: ANHAUDIO 09:19 | PROVIDERS: PCP Family Medicine; Visit Provider Otolaryngology | DX: H93.12 Tinnitus, left ear (principal) | CPT/HCPCS: 92552; 92556; 92567 ==

== ENCOUNTER 2022-11-25 11:09 | Outpatient (CLI) | payer MEDICARE, MEDICAID, SELFPAY ==
--- NOTE | ~2022-11-25 | XR_ITS ---
AP and lateral views of the right hip Clinical history: Pain Findings: No acute fracture or dislocation is seen. Osseous alignment is anatomic. The right hip join t is preserved. Soft tissues are unremarkable. Impression: No significant abnormality is seen. Reviewed, dictated and finalized at location . Impression: No significant abnormality is seen.
== END 2022-11-25 11:10 | disposition home or self-care (01) ==
PROVIDERS: PCP Family Medicine; Visit Provider Neurological Surgery
DX: M25.551 Pain in right hip (principal)
CPT/HCPCS: 73502

== ENCOUNTER 2022-12-08 11:04 | Outpatient (CLI) | payer MEDICARE, MEDICAID, SELFPAY ==
[2022-12-08 11:35] LABS: INR 1.1; Prothrombin Time 14.4 Seconds (11.1-14.7)
== END 2022-12-08 11:05 | disposition home or self-care (01) ==
PROVIDERS: PCP Family Medicine; Visit Provider Nurse Practitioner Family
DX: R74.8 Abnormal levels of other serum enzymes (principal); I48.0 Paroxysmal atrial fibrillation
CPT/HCPCS: 36415; 85610

== ENCOUNTER 2022-12-10 09:26 | Outpatient (CLI) | payer MEDICARE, MEDICAID, SELFPAY ==
[2022-12-10 10:41] LABS: Anion Gap 8 mmol/L (8-16); Blood Urea Nitrogen 18 mg/dL (7-17); Carbon Dioxide 30 mmol/L (22-30); Chloride 105 mmol/L (98-107); Estimated Glomerular Filt Rate > 60; Glucose 84 mg/dL (65-110); Potassium 3.7 mmol/L (3.4-5.0); Sodium 143 mmol/L (137-145)
[2022-12-10 10:42] LABS: Partial Thromboplastin Time 40.6 SECONDS (22.3-36.8)
[2022-12-10 10:48] LABS: Appearance Urine Cloudy (Clear); Bilirubin Urine Negative (Negative); Blood Urine Negative (Negative); Color Urine Yellow (Yellow); Glucose Urine UA Negative (Negative); Ketones Urine Negative (Negative); Leukocyte Esterase Ur 2+ LEU/UL (Negative); Nitrate Urine Negative (Negative); Protein Urine Trace mg/dL (Negative); Specific Grav Ur 1.024 (1.001-1.035); Urobilinogen Urine 0.2 mg/dL (<2.0)
[2022-12-10 11:24] LABS: RBC Urine 0-2 /hpf (0-2); WBC Urine >100 /hpf (0-3)
[2022-12-10 11:25] LABS: Add Urine Microscopic? YES; Bacteria Urine 1+ /hpf; Squamous Epithelial Cell Urine Few /hpf (Few)
== END 2022-12-10 09:27 | disposition home or self-care (01) ==
LOC: ANHSURGERY 09:32
PROVIDERS: PCP Family Medicine; Visit Provider Neurological Surgery
DX: M46.1 Sacroiliitis, not elsewhere classified (principal)
CPT/HCPCS: 36415; 80048; 81001; 85730; 86850; 86900; 86901; 87086

== ENCOUNTER 2022-12-16 08:51 | Inpatient (IN) | payer MEDICARE, MEDICAID, SELFPAY ==
[2022-12-08 15:14] VITALS: BMI 28.1
--- NOTE | 2022-12-08 15:29 | PC.NURSE ---
Report to the Outpatient Waiting Room, entrance under the green pavilion located off [facility], at time 6:00 on date 12/16/22. Planned Procedure Time: 8:00. Time changes happen often and if your time is changed the preop area will call you the afternoon before. - You and your visitor will be asked to self-screen and do not enter if you have any COVID symptoms. - A mask is optional within the hospital at this time. Patients may have clear liquids (water, carbonated beverages, clear teas, apple juice) until 3 hours prior to surgery (5:00) with a maximum of 20 ounces. - No food from midnight until time of surgery Take the following medications with a SIP of water the morning of surgery: BUPROPION, METOPROLOL, HYDROXYZINE/INHALER IF NEEDED DO NOT STOP ANY OF YOUR OTHER PRESCRIPTION MEDICATIONS PRIOR TO SURGERY EXCEPT THE FOLLOWING Medications to discontinue per physician: VITAMINS/SUPPLEMENTS, CELEBREX Date to take last dose: 12/08/22 (PER DR. MELENDEZ, PER PT) FOLLOW INSTRUCTIONS FROM DR. MELENDEZ REGARDING BRIDGE FROM COUMADIN TO LOVENOX Please no make-up, nail welsh, hairspray, perfume, deodorant, or body powder the day of surgery. No jewelry (including any body piercings) or valuables the day of surgery, leave them at home. Please take a shower or bath the night before, or the morning of, surgery with an antibacterial soap. Wear comfortable, loose fitting clothing. - Jewelry must be removed prior to entering the operating room. Rings and piercings that are not removed may be cut off. - The hospital will not accept responsibility for valuables. - Please leave all valuables, including medications, at home the day of surgery. If you are going home after surgery, a licensed explosives truck driver must drive you home. - NO public transportation without another adult if you receive anesthesia. - We recommend that an adult stay with you for 24 hours following discharge. - We also recommend that you do not drive, make important decision, drink alcoholic beverages, or take any drugs that were not prescribed by your health care provider for at least 24 hours after your discharge time. Follow any additional instructions given to you from your surgeon. If you or anyone in your household have experienced Covid symptoms in the past week, please notify your surgeon or the nurse liaison at the phone number below for possible testing. Telephone instructions given to PT - CHASIDY CANTU and asked if any additional questions and then verbalized understanding. Patient advised to call surgeon office or pre surgery nurse liaison [phone] if any additional questions.
[2022-12-16] VITALS (15 sets, daily range): BP systolic 106–134; BP diastolic 62–90; PULSE 69–91; RESP 12–16; TEMP 36–36.7; O2SAT 95–100
--- NOTE | ~2022-12-16 | XR_ITS ---
. EXAMINATION: XR fluoroscopy no charge DATE: 12/16/2022 09:53 INDICATION: Right hip pain. TECHNIQUE: 3 intraoperative fluoroscopic views of the pelvis were obtained. I was not present. Fluoro scopy exposure time was 1 minute 53 seconds. COMPARISON: Right hip radiographs 11/25/2022 FINDINGS: There are changes of anterior and posterior fusion procedures in lumbar spine. There are ch anges of fusion procedure of right sacroiliac joint with 2 screws. IMPRESSION: 1. Arthrodesis procedure of right sacroiliac joint. Reviewed, dictated and finalized at location L.
[2022-12-16] MEDS: LACTATED RINGERS 1,000 ML 30 ML IV CONT (06:45)
[2022-12-16] MEDS: VANCOMYCIN 1,250 MG/NS 250 ML BAG 166.67 MG IVPB (06:50)
--- NOTE | 2022-12-16 07:24 | WPDANESEPPF ---
Anes - Initial Pre Proc Eval Procedure: Operation Date: 12/16/22 08:00 Proposed Procedures p Right Sacroiliac Joint Fusion - Taran Ramirez MD Date/Time: 12/16/22 07:24 Surgeon: Taran Ramirez MD Pre Op Diagnosis: right sacroilitis Patient Data Age: 57 Gender: F Height: 1.73 m Weight: 87 kg Allergies Allergy/AdvReac Type Severity Reaction Status Date / Time meclizine Allergy Severe Rash Verified 12/16/22 06:30 carbamazepine [From Tegretol] Allergy Intermediate Blister Verified 12/16/22 06:30 Cephalosporins Allergy Mild RASH Verified 12/16/22 06:30 clarithromycin Allergy Mild RASH Verified 12/16/22 06:30 imipramine Allergy Mild RASH Verified 12/16/22 06:30 Penicillins Allergy Mild HIVES Verified 12/16/22 06:30 cefuroxime [From Ceftin] Allergy Hives Verified 12/16/22 06:30 etanercept [From Enbrel] Allergy Redness of Verified 12/16/22 06:30 Skin hydromorphone [From Dilaudid] Allergy Hives Verified 12/16/22 06:30 oxycodone [From Percocet] Allergy Hives Verified 12/16/22 06:30 prochlorperazine Allergy Swelling Verified 12/16/22 06:30 [From Compazine] of Lip/Tongue/Throat propoxyphene [From Darvon] Allergy Hives Verified 12/16/22 06:30 propranolol [From Inderal LA] Allergy Rash Verified 12/16/22 06:30 alcohol AdvReac Severe Blister Verified 12/16/22 06:30 [From Mastisol Adhesive] gum mastic AdvReac Severe Blister Verified 12/16/22 06:30 [From Mastisol Adhesive] methyl salicylate AdvReac Severe Blister Verified 12/16/22 06:30 [From Mastisol Adhesive] storax AdvReac Severe Blister Verified 12/16/22 06:30 [From Mastisol Adhesive] tizanidine AdvReac Intermediate Hallucinati Verified 12/16/22 06:30 ng codeine AdvReac Unknown Vomiting Verified 12/16/22 06:30 diphenhydramine AdvReac Vomiting Verified 12/16/22 06:30 [From Benadryl] hydrocodone [From Vicodin] AdvReac Vomiting Verified 12/16/22 06:30 Home Medications Medication Instructions Recorded Confirmed Type nitroglycerin 0.4 mg sublingual 0.4 mg sublingual Q5MIN PRN Chest 04/03/20 12/10/22 Rx tablet (Nitrostat) Pain #25 tabs epinephrine 0.3 mg/0.3 mL 0.3 mg (0.3 mL) IM ONCE PRN 09/27/21 12/10/22 Rx injection, auto-injector (EpiPen Allergic Reaction #2 ea 2-Ranulfo) ascorbic acid (vitamin C) 500 mg 500 mg PO DAILY 01/29/22 12/10/22 History tablet (Vitamin C) elderberry fruit 200 mg capsule 200 mg PO DAILY 01/29/22 12/10/22 History montelukast 10 mg tablet 10 mg PO DAILY #90 tabs 02/23/22 12/10/22 Rx (Singulair) golimumab 50 mg/0.5 mL 50 mg subcut MONTHLY 03/19/22 12/10/22 History subcutaneous pen injector (Simponi) omeprazole 20 mg capsule,delayed 20 mg PO DAILY 1 month #90 caps 05/25/22 12/10/22 Rx release duloxetine 60 mg capsule,delayed 60 mg PO HS #90 caps 06/19/22 12/10/22 Rx release (Cymbalta) metoprolol succinate 50 mg 50 mg PO QAM 06/19/22 12/16/22 History tablet,extended release 24 hr triamcinolone acetonide 0.5 % 1 applic topical DAILY 08/01/22 12/10/22 History topical cream (Triderm) [id number]-uidnkncc-ywvyxpy See Rx Instructions .Route 08/06/22 12/10/22 Rx 36,000-114,000-180,000 unit .COMPLEX #240 caps capsule,delay rel (Creon) albuterol sulfate 90 mcg/actuation 1 inh inhalation Q4H PRN shortness 10/13/22 12/10/22 Rx aerosol inhaler (ProAir HFA) of breath or wheezing #6.7 grams warfarin 2.5 mg tablet 2.5 mg PO DAILY #90 tabs 10/28/22 12/16/22 Rx bupropion HCl 150 mg 24 hr tablet, 150 mg PO QAM #30 tabs 11/07/22 12/16/22 Rx extended release rosuvastatin 20 mg tablet 20 mg PO DAILY #90 tabs 11/08/22 12/10/22 Rx hydroxyzine HCl 25 mg tablet 25 mg PO Q8H PRN itching #60 tabs 11/13/22 12/16/22 Rx azelastine 137 mcg (0.1 %) nasal 1 spray intranasal Q12H #30 mL 11/19/22 12/10/22 Rx spray aerosol folic acid 1 mg tablet 1 mg PO DAILY #90 tabs 11/19/22 12/10/22 Rx metronidazole 1 % topical gel 1 applic topical DAILY #60 grams 11/21/22 12/10/22 Rx (Metrogel) r
--- NOTE | 2022-12-16 07:26 | SUR.PREOP ---
0715- PT STATED SHE WAS ITCHING AROUND HER PACEMAKER SITE AND UPPER BACK. NO REDNESS OR HIVES NOTED.VANCO INFUSION DECREASED. SPOKE WITH ANESTHESIA AND STATED TO LEAVE RUNNING AT DECREASE RATE. IF GETS WORSE TO STOP INFUSION. DR. SINGLETON TO BEDSIDE AND ORDERED CLARITIN PO IN PRE OP.
[2022-12-16] MEDS: LORATADINE 10 MG TABLET PO (07:46)
--- NOTE | 2022-12-16 08:05 | PM.IMHP ---
H&P: HPI History of Present Illness Date/Time: 12/16/22 08:05 Chief Complaint: Naye is a 57-year-old female with a right sacroiliitis who presents now for a right sacroiliac joint fusion. She has not changed appreciably since we last saw her. She is not having any bowel or bladder difficulty or other constitutional problems. She is not having specific dermatomal numbness or specific muscle group weakness. Review of Systems Review of Systems: Patient denies shortness of breath, cough, fever, chills, nausea, vomiting, weight loss, weight gain, chest pain, dysuria. She has sacral and hip area discomfort as above. Her review of systems is otherwise negative on 12 systems except as noted elsewhere. [facility] Past Medical History Medical History A-fib Abdominal bloating Abdominal lump Abnormality of heart beat Allergic dermatitis Allergic reaction to allergy skin test Anemia, unspecified Anxiety Anxiety about health Ataxia Atopic dermatitis Atypical face pain Bradycardia Confusion D-dimer, elevated Degenerative joint disease of cervical and lumbar spine Depression Diarrhea Dizziness Ear pain Essential (primary) hypertension Family history of beta thalassemia Fibromyalgia Foraminal stenosis of lumbar region Foreign body in ear Foreign body of toe Fracture of second toe, left, closed Groin hematoma Groin pain Headache History of deep vein thrombosis Hypoglycemia Hyponatremia Inappropriate sinus tachycardia Left ear pain Lesion of skin of nose Lightheadedness Lipid disorder Lumbar stenosis Mixed hyperlipidemia Pancreatitis Paroxysmal atrial fibrillation Pneumonia Presence of IVC filter Presence of neurostimulator Restless leg syndrome Rheumatoid arthritis Rheumatoid arthritis, seronegative, multiple sites RSD (reflex sympathetic dystrophy) SVT (supraventricular tachycardia) TIA (transient ischemic attack) Vertigo Wears glasses Surgical History Surgical History H/O cardiac radiofrequency ablation H/O hernia repair History of arthroscopic knee surgery History of back surgery History of endometrial ablation History of permanent cardiac pacemaker placement History of surgery on left wrist History of tubal ligation Hx of atrioventricular node ablation S/P insertion of spinal cord stimulator S/P IVC filter Status post surgical removal of both fallopian tubes Family History Family History Grandparent Family history of blood dyscrasia Family history of Alzheimer's disease Family history of malignant neoplasm of cervix Mother Family history of Alzheimer's disease Father Family history of lung cancer Sibling No problems noted. Other Diabetes mellitus Family history of allergic disorder Family history of kidney disease Family history of malignant neoplasm of thyroid High cholesterol Social History Social History Smoking status: Never smoker Second hand tobacco smoke exposure: Yes Alcohol intake: never Substance use: never Substance use type: does not use Lack of Transportation: No Lack of Food: Sometimes True Current Housing: Decline to Answer Concerned About Future Housing: Decline to Answer Difficulty Paying Gas/Electric Bills: Decline to Answer Difficulty Paying for Meds: Decline to Answer Currently Unemployed: Decline to Answer Education: High School Diploma/GED Difficulty w/ Childcare or Family Care: No Living arrangements: alone Occupation/Education: retired Additional occupation/education comments: disabled Gender identity (if verbalized by the patient): Female Spiritual care concerns: No Meds Home Medications and Allergies Home Medications Medication Instructions Recorded Confir
--- NOTE | 2022-12-16 08:08 | WPDHPUPDATE1 ---
History and Physical Update Update Date/Time: 12/16/22 08:08 History and Physical has been reviewed, including an updated exam of the patient. There are NO changes in the patient's condition. Risks, benefits, and alternatives have been discussed and questions answered. Patient agrees to proceed with procedure.
[2022-12-16] MEDS: CLINDAMYCIN 900 MG/D5W 50 ML 900 MG/50 ML PIGGYBACK 50 MG IVPB (08:20)
[2022-12-16] MEDS: LIDO 1%/EPINEPHRINE 1:100,000 20 ML VIAL 10 ML INFILTRATE (08:44)
--- NOTE | 2022-12-16 10:02 | W.PM.PROC2 ---
Procedure Note - Detailed Date of Procedure 12/16/22 Pre-op Diagnosis right sacroilitis Post-op Diagnosis Same Procedure Performed Right sacroiliac joint fusion, lateral, open Surgeon Taran Ramirez MD Straddle Bug Driver Carlos Anesthesia General Description of Procedure The patient was brought to the operating room in the supine position, was sedated, intubated and placed under general anesthesia in routine fashion. She was then turned into the prone position on gel rolls. The area of operation on the right buttock was examined, marked for incision, prepped and draped in routine sterile fashion. Incision was marked based on the outlet of the sacrum as determined by fluoroscopy. This area was injected with 0.5% lidocaine with [id number] epinephrine. Intravenous antibiotics given prior to incision. Incision was made with a 10 blade scalpel. A guidewire was placed through the incision to the ilium across from the sacroiliac joint as confirmed by lateral fluoroscopy. Inlet and outlet views were then used to advance the guidewire across the SI joint making sure that it was in behind the anterior margin of the sacrum and short of the foraminal line. Extensions were placed on the guidewire after a set of sequential dilators were placed over the wire and measurement was taken. An 11.5 x 45 mm device was chosen. Sequentially under the outlet view the drill and then tap were advanced. The device was then placed across the SI joint using the appropriate driver supervisor also using the outlet view for guidance to stay short of the foraminal line. A guide tube was placed and a 2nd wire was placed distally to the 1st within the SI joint on the surface of the ilium. This was confirmed on lateral view. The funnel was placed over the 1st wire and the 1st wire removed. I factor and autograft which had been placed around each device was then placed down the tube of the funnel and advanced into the device. The funnel was then removed. In like fashion, the drill and tap were placed across the 2nd wire through the sacroiliac joint after sequential dilators were placed, a measurement was taken and the guidewire length and with the extenders. Another 11.5 x 45 mm device was chosen and placed over the wire and with the appropriate driver supervisor advanced across the SI joint using outlet views to make sure his stated short of the foraminal line. The inlet view had been used to make sure it stayed posterior to the anterior margin of the sacrum. A 3rd wire was attempted to be placed but seem to be too low and to advance out of the bone distally and therefore 3rd device was not placed. The wound was then copiously irrigated with bacitracin irrigation all bleeding stopped with bipolar and Bovie cautery and Gelfoam thrombin powder. The wound was then closed in layered fashion with 3-0 Vicryl interrupted sutures in the dermis and a running 4-0 Monocryl subcuticular stitch in the skin was dressed with Dermabond. The patient was turned into the supine position on hospital bed was lot about from general anesthesia in the operating room and was taken to the recovery room in stable condition. There were no immediate complications of this operation. All counts were reported correct in the case. Blood loss was 25 cc. The patient was neurologically at her baseline postoperatively. Implants CoreLink threaded hollow dowels across SI joint. Estimated Blood Loss 25 IV Fluids 1,000 Complications None Condition Stable Disposition PACU [facility] Billing Surgery - Charge Forward: Surgery Billing
[2022-12-16] MEDS: fentaNYL CITRATE INJ (*CRX) 100 MCG/2 ML VIAL 25 MCG IV PUSH ×6 (10:26→10:56)
--- NOTE | 2022-12-16 11:21 | ADMGEN ---
This patient, Naye Hart, was admitted to 2 Medical Room 257-. Patient/family oriented to hospital policies and general routines including ID bracelet, bed and alarms, visiting hours, pain management, procedures, bathroom and other care routines, personal items, smoking policy, room service/diet, and visiting hours. Information on how to activate the Rapid Response Team has been discussed. Patient/Family are encouraged to report perceived risks to care and to ask questions if they do not understand what they are told or what they should do.
[2022-12-16] MEDS: KCL 20 MEQ/D5/0.45% SOD CHL 1,000 ML 100 ML IV CONT (11:53)
[2022-12-16] MEDS: MORPHINE SULFATE (*CRX) 2 MG/ML INJ IV PUSH ×5 (11:55→22:01)
[2022-12-16] MEDS: rOPINIRole HCL 1 MG TABLET PO ×3 (13:09→22:01)
[2022-12-16] MEDS: AZELASTINE HCL NASAL 0.1% 137 MCG/SPR 30 ML BTL 1 SPRAY NASAL ×2 (13:10→22:01)
[2022-12-16] MEDS: MICONAZOLE NITRATE 2% CREAM 30 GM TUBE 1 APPLIC TOPICAL (16:34)
[2022-12-16] MEDS: methocarbamoL 750 MG TABLET PO (19:40)
[2022-12-16] MEDS: DULoxetine HCL 60 MG CAPSULE.DR PO (22:01)
[2022-12-17 00:27] VITALS: BP 104/64; PULSE 70; RESP 18; TEMP 36.6; O2SAT 97
[2022-12-17] MEDS: MORPHINE SULFATE (*CRX) 2 MG/ML INJ IV PUSH ×3 (01:28→09:28)
[2022-12-17] MEDS: hydrOXYzine HCL 25 MG TABLET PO (03:06)
[2022-12-17 06:03] VITALS: BP 115/68; PULSE 72; RESP 16; TEMP 36.7; O2SAT 97
[2022-12-17] MEDS: buPROPion HCL XL (24 HR) 150 MG TABCR PO (09:06)
[2022-12-17] MEDS: ROSUVASTATIN 10 MG TABLET 20 MG PO (09:06)
[2022-12-17] MEDS: methocarbamoL 750 MG TABLET PO (09:06)
[2022-12-17 09:07] VITALS: PULSE 80
[2022-12-17] MEDS: METOPROLOL SUCCINATE EXT REL 50 MG TABCR PO (09:07)
[2022-12-17] MEDS: COLESTIPOL HCL 1 GM TABLET BY MOUTH (09:08)
[2022-12-17] MEDS: MONTELUKAST SODIUM 10 MG TABLET PO (09:09)
[2022-12-17] MEDS: rOPINIRole HCL 1 MG TABLET PO (09:09)
[2022-12-17] MEDS: PANTOPRAZOLE 40 MG TABLET PO (09:10)
[2022-12-17] MEDS: ASCORBIC ACID 500 MG TABLET PO (09:10)
[2022-12-17] MEDS: AZELASTINE HCL NASAL 0.1% 137 MCG/SPR 30 ML BTL 1 SPRAY NASAL (09:11)
[2022-12-17 09:12] VITALS: RESP 16; O2SAT 97
[2022-12-17] MEDS: MICONAZOLE NITRATE 2% CREAM 30 GM TUBE 1 APPLIC TOPICAL (09:12)
[2022-12-17 10:22] VITALS: BP 109/61; PULSE 68; RESP 18; TEMP 36.6; O2SAT 95
--- NOTE | 2022-12-17 14:44 | PCCCNOTE ---
On 12/17/22, the student, Maryuri Dubon, provided care and completed [facility] documentation on this patient. I have reviewed the student's documentation and agree with the findings.
== END 2022-12-17 13:55 | disposition home or self-care (01) | DRG 460 ==
LOC: ANH2MED 12-17 12:54
PROVIDERS: Admitting Provider Neurological Surgery; PCP Family Medicine; Visit Provider Neurological Surgery
PROC: 0SG704Z Fusion of Right Sacroiliac Joint with Internal Fixation Device, Open Approach (ICD-10-PCS; CPT 27280; principal; 2022-12-16 08:00)
DX: M46.1 Sacroiliitis, not elsewhere classified (principal); I47.1 Supraventricular tachycardia; D64.9 Anemia, unspecified; F32.A Depression, unspecified; I10 Essential (primary) hypertension; M79.7 Fibromyalgia; E78.2 Mixed hyperlipidemia; I48.0 Paroxysmal atrial fibrillation; M06.9 Rheumatoid arthritis, unspecified; G25.81 Restless legs syndrome; Z86.73 Personal history of transient ischemic attack (TIA), and cerebral infarction without residual deficits; Z79.51 Long term (current) use of inhaled steroids; Z79.01 Long term (current) use of anticoagulants; Z95.0 Presence of cardiac pacemaker
CPT/HCPCS: 27280; 97161; 97165; 97530; 97535; 99199; A9270; C1713; J1100; J1170; J2250; J2270; J2405; J2704; J3010; J3370; J3480; J7120

== ENCOUNTER 2022-12-23 21:33 | Emergency (ER) | payer MEDICARE, MEDICAID, SELFPAY ==
--- NOTE | ~2022-12-23 | CT_ITS ---
EXAMINATION: CT brain wo con INDICATION: Headache COMPARISON: 05/12/2021 TECHNIQUE: Standard unenhanced head CT. The dose-length product (DLP) was 681.00 mGy-cm. The mA was a djusted according to patient size. Iterative reconstruction technique was employed. FINDINGS: There is no acute intraparenchymal hemorrhage. No evidence of mass lesion. No evidence of a cute infarction. There is mild periventricular and subcortical hypodensity probably related to small vessel ischemic disease. Again noted are chronic calcifications of the left cerebellum, likely dystro phic. There is mild prominence of the sulci and ventricles related to cerebral atrophy. Intracranial calcified cerebral atherosclerosis is noted. There are no extra-axial collections. There is no mass e ffect or midline shift. The orbits and soft tissues are unremarkable. The visualized sinuses and mast oid air cells are well aerated. IMPRESSION: 1. No acute intracranial abnormality. 2. Age related findings. Reviewed, dictated and finalized at location F.
[2022-12-23 21:34] VITALS: BP 134/81; PULSE 80; RESP 16; O2SAT 100
[2022-12-23] MEDS: ACETAMINOPHEN 500 MG TABLET 1000 MG PO (22:05)
[2022-12-23] MEDS: MORPHINE SULFATE INJ (*CRX) 10 MG/ML AMP IM (22:08)
--- NOTE | 2022-12-23 22:42 | ED.GENADULT ---
HPI - General Adult General Chief complaint: Headache Stated complaint: HEADACHE X 1 HOUR Time Seen by Provider: 12/23/22 21:39 History of Present Illness HPI narrative: This is a 49-year-old female with a history of chronic pain presenting ED headache. Patient says that the headache started at 8:25 a.m.. Was maximal in onset. It is primarily in the temples and is a throbbing pain. She also notices are some sharp pain on the left side of her head. No loss of consciousness. No neurologic deficits. Patient is pod 7 from an SI joint fusion performed by Dr. Flower. Related Data Home Medications Medication Instructions Recorded Confirmed ascorbic acid (vitamin C) 500 mg 500 mg PO DAILY 01/29/22 12/16/22 tablet (Vitamin C) elderberry fruit 200 mg capsule 200 mg PO DAILY 01/29/22 12/16/22 golimumab 50 mg/0.5 mL 50 mg subcut MONTHLY 03/19/22 12/16/22 subcutaneous pen injector (Simponi) metoprolol succinate 50 mg 50 mg PO QAM 06/19/22 12/16/22 tablet,extended release 24 hr triamcinolone acetonide 0.5 % 1 applic topical DAILY 08/01/22 12/10/22 topical cream (Triderm) warfarin 3 mg tablet 3 mg PO QMWF 11/24/22 12/16/22 warfarin 5 mg tablet 5 mg PO DAILY 11/24/22 12/16/22 Allergies Allergy/AdvReac Type Severity Reaction Status Date / Time meclizine Allergy Severe Rash Verified 12/23/22 21:58 carbamazepine [From Tegretol] Allergy Intermediate Blister Verified 12/23/22 21:58 Cephalosporins Allergy Mild RASH Verified 12/23/22 21:58 clarithromycin Allergy Mild RASH Verified 12/23/22 21:58 imipramine Allergy Mild RASH Verified 12/23/22 21:58 Penicillins Allergy Mild HIVES Verified 12/23/22 21:58 cefuroxime [From Ceftin] Allergy Hives Verified 12/23/22 21:58 etanercept [From Enbrel] Allergy Redness of Verified 12/23/22 21:58 Skin hydromorphone [From Dilaudid] Allergy Hives Verified 12/23/22 21:58 oxycodone [From Percocet] Allergy Hives Verified 12/23/22 21:58 prochlorperazine Allergy Swelling Verified 12/16/22 06:30 [From Compazine] of Lip/Tongue/Throat propoxyphene [From Darvon] Allergy Hives Verified 12/16/22 06:30 propranolol [From Inderal [place]] Allergy Rash Verified 12/16/22 06:30 alcohol AdvReac Severe Blister Verified 12/16/22 06:30 [From Mastisol Adhesive] gum mastic AdvReac Severe Blister Verified 12/16/22 06:30 [From Mastisol Adhesive] methyl salicylate AdvReac Severe Blister Verified 12/16/22 06:30 [From Mastisol Adhesive] storax AdvReac Severe Blister Verified 12/16/22 06:30 [From Mastisol Adhesive] tizanidine AdvReac Intermediate Hallucinati Verified 12/16/22 06:30 ng codeine AdvReac Unknown Vomiting Verified 12/16/22 06:30 diphenhydramine AdvReac Vomiting Verified 12/16/22 06:30 [From Benadryl] hydrocodone [From Vicodin] AdvReac Vomiting Verified 12/16/22 06:30 PMFSH Past Medical History Medical History A-fib Abdominal bloating Abdominal lump Abnormality of heart beat Allergic dermatitis Allergic reaction to allergy skin test Anemia, unspecified Anxiety Anxiety about health Ataxia Atopic dermatitis Atypical face pain Bradycardia Confusion D-dimer, elevated Degenerative joint disease of cervical and lumbar spine Depression Diarrhea Dizziness Ear pain Essential (primary) hypertension Family history of beta thalassemia Fibromyalgia Foraminal stenosis of lumbar region Foreign body in ear Foreign body of toe Fracture of second toe, left, closed Groin hematoma Groin pain Headache History of deep vein thrombosis Hypoglycemia Hyponatremia Inappropriate sinus tachycardia Left ear pain Lesion of skin of nose Lightheadedness Lipid disorder Lumbar stenosis Mixed hyperlipidemia Pancreatitis Paroxysmal atrial fibrillation Pneumonia Presence of IVC filter Presence of neurostimulator Restless leg syndrome Rheumatoid arthritis Rheumatoid arthritis, seronegative, multiple sites RSD (reflex sympath
[2022-12-23 22:55] VITALS: BP 137/93; PULSE 78; RESP 20; TEMP 36.6; O2SAT 98
== END 2022-12-24 01:21 | disposition home or self-care (01) ==
PROVIDERS: Emergency Provider Emergency Medicine; PCP Family Medicine
DX: G90.50 Complex regional pain syndrome I, unspecified (principal); R51.9 Headache, unspecified; I48.0 Paroxysmal atrial fibrillation; I10 Essential (primary) hypertension; E78.2 Mixed hyperlipidemia; M79.7 Fibromyalgia; M06.09 Rheumatoid arthritis without rheumatoid factor, multiple sites; M47.816 Spondylosis without myelopathy or radiculopathy, lumbar region; M47.812 Spondylosis without myelopathy or radiculopathy, cervical region; F32.A Depression, unspecified; F41.9 Anxiety disorder, unspecified; Z96.82 Presence of neurostimulator; Z95.0 Presence of cardiac pacemaker; Z86.73 Personal history of transient ischemic attack (TIA), and cerebral infarction without residual deficits; Z86.718 Personal history of other venous thrombosis and embolism; Z87.01 Personal history of pneumonia (recurrent); Z86.2 Personal history of diseases of the blood and blood-forming organs and certain disorders involving the immune mechanism; Z98.1 Arthrodesis status; Z79.01 Long term (current) use of anticoagulants
CPT/HCPCS: 70450; 96372; 99284; A9270; J2270

== ENCOUNTER 2022-12-29 10:16 | Outpatient (CLI) | payer MEDICARE, MEDICAID, SELFPAY ==
[2022-12-29 10:56] LABS: Alanine Aminotransferase 34 U/L (6-35); Albumin Level 4.5 g/dL (3.5-5.1); Alkaline Phosphatase 82 U/L (38-126); Anion Gap 5 mmol/L (8-16); Aspartate Amino Transferase 32 U/L (14-36); Bilirubin,Total 0.6 mg/dL (0.2-1.3); Blood Urea Nitrogen 21 mg/dL (7-17); Calcium 9.6 mg/dL (8.4-10.2); Carbon Dioxide 33 mmol/L (22-30); Chloride 103 mmol/L (98-107); Estimated Glomerular Filt Rate 57; Glucose 87 mg/dL (65-110); Potassium 4.1 mmol/L (3.4-5.0); Sodium 141 mmol/L (137-145)
== END 2022-12-29 10:17 | disposition home or self-care (01) ==
PROVIDERS: PCP Family Medicine; Visit Provider Physician Assistant Medical
DX: Z51.81 Encounter for therapeutic drug level monitoring (principal); Z79.899 Other long term (current) drug therapy
CPT/HCPCS: 36415; 80053

== ENCOUNTER 2023-02-05 12:22 | Outpatient (CLI) | payer MEDICARE, MEDICAID, SELFPAY ==
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
== END 2023-02-05 12:23 | disposition home or self-care (01) ==
PROVIDERS: PCP Family Medicine; Visit Provider Physician Assistant Medical
DX: T59.811A Toxic effect of smoke, accidental (unintentional), initial encounter (principal); Z95.0 Presence of cardiac pacemaker
CPT/HCPCS: 71046

== ENCOUNTER 2023-02-10 14:34 | Outpatient (CLI) | payer MEDICARE, MEDICAID, SELFPAY ==
--- NOTE | ~2023-02-10 | XR_ITS ---
XR hip RT min 2V DATE: 02/10/2023 14:55 INDICATION: Right hip pain TECHNIQUE: AP and lateral views of right hip COMPARISON: 11/25/2022 right hip FINDINGS: Interval fixation devices bridge the right sacroiliac joint since 11/25/2022. Posterior pedicle screws and rods and interbody fusion devices are again noted in the lumbosacral are a in addition to lower lumbar laminectomy. No fracture or dislocation, avascular necrosis or bone destruction of the right hip is detected. Mild right hip joint space narrowing. IMPRESSION: Mild right hip osteoarthritis Interval surgical devices across the right sacroiliac joint Reviewed, dictated and finalized at location L.
== END 2023-02-10 14:35 | disposition home or self-care (01) ==
PROVIDERS: PCP Family Medicine; Visit Provider Nurse Practitioner Family
DX: M25.551 Pain in right hip (principal); M16.11 Unilateral primary osteoarthritis, right hip; Z98.890 Other specified postprocedural states
CPT/HCPCS: 73502

== ENCOUNTER 2023-03-02 09:59 | Outpatient (CLI) | payer MEDICARE, MEDICAID, SELFPAY ==
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
== END 2023-03-02 10:00 | disposition home or self-care (01) ==
PROVIDERS: PCP Family Medicine; Visit Provider Nurse Practitioner Family
DX: S89.92XA Unspecified injury of left lower leg, initial encounter (principal); T14.90XA Injury, unspecified, initial encounter
CPT/HCPCS: 73564

== ENCOUNTER 2023-04-08 09:28 | Outpatient (CLI) | payer MEDICARE, MEDICAID, SELFPAY ==
--- NOTE | ~2023-04-08 | XR_ITS ---
EXAMINATION: XR lumbar spine 6V w bending DATE: 04/08/2023 10:08 INDICATION: Low back pain TECHNIQUE: Anteroposterior, lateral in neutral, flexion and extension, and bilateral oblique views of the lumbar spine, and cone-down lateral view of the lumbosacral junction were obtained. COMPARISON: 09/15/2022 FINDINGS: There are changes of anterior and posterior fusion and laminectomy from L2 through S1. Ther e is been interval right sacroiliac joint effusion. Bone alignment is normal. No fracture is identifi ed. No hypermobility is present with flexion or extension. An IVC filter is noted. There is a partial ly imaged neurostimulator device implanted in the right flank subcutaneous tissues. IMPRESSION: 1. Surgical changes without acute osseous abnormality. Reviewed, dictated and finalized at location B.
--- NOTE | ~2023-04-08 | XR_ITS ---
AP view of the pelvis and AP and lateral views of the right hip Clinical history: Pain Findings: No acute fracture or dislocation is seen. Osseous alignment is anatomic. With a fixation pryor rdware noted at the lumbar spine and right SI joint. There is degenerative change of the left SI join t. Bilateral hip joints are preserved.. Soft tissues are unremarkable. Impression: Unremarkable hip joints. Orthopedic fixation hardware the lumbar spine and right SI joint. Degenerative change of the left SI joint. Reviewed, dictated and finalized at location M. Impression: Unremarkable hip joints. Orthopedic fixation hardware the lumbar spine and right SI joint. Degenerative change of the left SI joint.
== END 2023-04-08 09:29 | disposition home or self-care (01) ==
PROVIDERS: PCP Family Medicine; Visit Provider Family Medicine
DX: M25.551 Pain in right hip (principal); M47.816 Spondylosis without myelopathy or radiculopathy, lumbar region; Z96.89 Presence of other specified functional implants
CPT/HCPCS: 72114; 73502

== ENCOUNTER 2023-04-20 14:22 | Outpatient (CLI) | payer MEDICARE, MEDICAID, SELFPAY ==
--- NOTE | ~2023-04-20 | XR_ITS ---
XR sacrum coccyx min 2V DATE: 04/20/2023 14:48 INDICATION: Fell 2 weeks ago. Pain. TECHNIQUE: AP, angled AP and lateral views of sacrum and coccyx COMPARISON: 04/08/2023 pelvis and right hip FINDINGS: There is extensive lumbar spine hardware including pedicle screws and rods and interbody yasmany dy fixation devices in addition to lower lumbar laminectomy. There are 2 fixation devices bridging the right sacroiliac joint. No apparent recent sacral or coccygeal fracture is evident. Normal alignment at the pubic symphysis a nd sacroiliac joints. IMPRESSION: Status post lumbar laminectomy and posterior and interbody spinal fusion Status post right sacroiliac surgical fusion No sacral or coccygeal fracture is evident Reviewed, dictated and finalized at location L. IMPRESSION: Status post lumbar laminectomy and posterior and interbody spinal f usion Status post right sacroiliac surgical fusion No sacral or coccygeal fracture is evident
== END 2023-04-20 14:23 | disposition home or self-care (01) ==
PROVIDERS: PCP Family Medicine; Visit Provider Physician Assistant Medical
DX: R52 Pain, unspecified (principal); M53.3 Sacrococcygeal disorders, not elsewhere classified
CPT/HCPCS: 72220

== ENCOUNTER 2023-05-27 17:34 | Emergency (ER) | payer MEDICARE, MEDICAID, SELFPAY ==
--- NOTE | ~2023-05-27 | CT_ITS ---
EXAMINATION: CT brain wo con DATE: 05/27/2023 19:23 INDICATION: Headache. Left arm numbness. TECHNIQUE: Computed tomography (CT) of the head was performed without intravenous contrast. The mA wa s adjusted according to patient size. Iterative reconstruction technique was employed. The dose-lengt h product was 605.33 mGy-cm. COMPARISON: Head CT 12/23/2022 FINDINGS: There are scattered areas of low attenuation in the cerebral white matter, which is within normal limits for the patient's age. Again seen are dystrophic calcifications in the left cerebellum. There is no intracranial hemorrhage, acute infarction, or abnormal intracranial mass lesion. The chica tricles are normal in size. There is mild mucosal thickening in the paranasal sinuses. The orbits are normal. The mastoid air cells are normal. IMPRESSION: 1. No acute intracranial pathology. Reviewed, dictated and finalized at location E. W REMOVER
--- NOTE | ~2023-05-27 | XR_ITS ---
EXAMINATION: XR chest 2V DATE: 05/27/2023 17:59 INDICATION: Chest pain. TECHNIQUE: Frontal and lateral views of the chest were obtained. COMPARISON: Chest 2 views 02/05/2023 FINDINGS: There is no pneumonia, pleural effusion, or pneumothorax. The heart size is normal. There i s a left chest wall pacer with leads in the right atrium and right ventricle. There is a third lead i n the right ventricle. Epidural electrodes are noted. There are changes of anterior and posterior fus ion procedures in lumbar spine. IMPRESSION: 1. No acute cardiopulmonary disease. Reviewed, dictated and finalized at location E. LED YARN SPOOL STRAIGHTENER
--- NOTE | 2023-05-27 17:35 | ECG_ITS ---
Measurements Intervals [place] Rate: 70 P: 121 [place]: 189 QRS: -71 QRSD: 168 T: 61 QT: 462 QTc: 499 Interpretive Statements ELECTRONIC ATRIAL PACEMAKER ELECTRONIC VENTRICULAR PACEMAKER BASELINE ARTIFACT- I, III, AVL, V4 NO FURTHER INTERPRETATION IS POSSIBLE ATYPICAL ECG COMPARED TO ECG 03/20/2022 13:49:25 NO SIGNIFICANT CHANGES Electronically Signed On 05-27-2023 18:37:28 AVICULTURIST by Rangel Moe D.O.
[2023-05-27 17:37] VITALS: BP 129/86; PULSE 69; RESP 20; TEMP 36.2; O2SAT 100
--- NOTE | 2023-05-27 18:54 | ED.CHESTPAIN ---
HPI - Chest Pain General Chief Complaint: Chest Pain Stated Complaint: CP/JACKSON x 24 hours Time Seen by Provider: 05/27/23 18:53 Source: patient Limitations: no limitations History of Present Illness HPI narrative: Patient presents with complaint of chest pain that started approximately 24 hours ago that was then followed by a headache. She felt her gait was unsteady and she felt off balance. 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 She has been short of breath. CP radiated down left arm and was associated with left hand numbness. She also had vision changes. No nausea or vomiting. No trauma. Denies lower extremity edema. She said INR had been supratherapeutic, 4 last week and 3.4 yesterday so she had held a dose of her warfarin as advised. Denies history of NC and no underlying respiratory conditions. Hx of DVT but no PE. Medication list also includes: buprenorphine transdermal patch and warfarin (8mg Thu-Thu and 9mg Thursday). Related Data Home Medications Medication Instructions Recorded Confirmed ascorbic acid (vitamin C) 500 mg 500 mg PO DAILY 01/29/22 04/20/23 tablet (Vitamin C) elderberry fruit 200 mg capsule 200 mg PO DAILY 01/29/22 04/20/23 metoprolol succinate 50 mg 50 mg PO QAM 06/19/22 04/20/23 tablet,extended release 24 hr triamcinolone acetonide 0.5 % 1 applic topical DAILY 08/01/22 04/20/23 topical cream (Triderm) golimumab 50 mg/0.5 mL 50 mg subcut MONTHLY 03/26/23 04/20/23 subcutaneous pen injector (Simponi) Allergies Allergy/AdvReac Type Severity Reaction Status Date / Time meclizine Allergy Severe Rash Verified 05/27/23 20:53 carbamazepine [From Tegretol] Allergy Intermediate Blister Verified 05/27/23 20:53 Cephalosporins Allergy Mild RASH Verified 05/27/23 20:53 clarithromycin Allergy Mild RASH Verified 05/27/23 20:53 imipramine Allergy Mild RASH Verified 05/27/23 20:53 Penicillins Allergy Mild HIVES Verified 05/27/23 20:53 cefuroxime [From Ceftin] Allergy Hives Verified 05/27/23 20:53 etanercept [From Enbrel] Allergy Redness of Verified 05/27/23 20:53 Skin hydromorphone [From Dilaudid] Allergy Hives Verified 05/27/23 20:53 oxycodone [From Percocet] Allergy Hives Verified 05/27/23 20:53 prochlorperazine Allergy Swelling Verified 05/27/23 20:53 [From Compazine] of Lip/Tongue/Throat propoxyphene [From Darvon] Allergy Hives Verified 05/27/23 20:53 propranolol [From Inderal LA] Allergy Rash Verified 05/27/23 20:53 alcohol AdvReac Severe Blister Verified 05/27/23 20:53 [From Mastisol Adhesive] chloroxylenol [From [place] 7] AdvReac Severe rash Verified 05/27/23 20:53 gum mastic AdvReac Severe Blister Verified 05/27/23 20:53 [From Mastisol Adhesive] methyl salicylate AdvReac Severe Blister Verified 05/27/23 20:53 [From Mastisol Adhesive] storax AdvReac Severe Blister Verified 05/27/23 20:53 [From Mastisol Adhesive] tizanidine AdvReac Intermediate Hallucinati Verified 05/27/23 20:53 ng codeine AdvReac Unknown Vomiting Verified 05/27/23 20:53 diphenhydramine AdvReac Vomiting Verified 05/27/23 20:53 [From Benadryl] hydrocodone [From Vicodin] AdvReac Vomiting Verified 05/27/23 20:53 Dermabond Allergy Intermediate Itching Uncoded 05/27/23 20:53 PMFSH Past Medical History Medical History (Updated 05/28/23 @ 22:54 by Neha Lloyd MD) A-fib Abdominal bloating Abdominal lump Abnormality of heart beat Abrasion of toe Allergic dermatitis Allergic reaction to allergy skin test Anemia, unspecified Anxiety Anxiety about health Ataxia Atopic dermatitis Atypical face pain Bradycardia Cervical pain Confusion D-dimer, elevated Degenerative joint disease of cervical and lumbar spine Depression Diarrhea Dizziness DVT (deep venous thrombosis) Ear pain Essential (primary) hypertension Family history of beta thalassemia Fibromyalgia Flatulence Foraminal stenosis of lumbar region Foreign body in ear Foreign body of toe Fracture of seco
[2023-05-27 19:21] VITALS: BP 140/67; PULSE 79; RESP 20; O2SAT 96
[2023-05-27 19:45] LABS: Basophils Percent Auto 0.4 % (0.2-1.2); Eosinophils Absolute Auto 0.1 K/mm3 (0-0.3); Eosinophils Percent Auto 1.3 % (0-4.4); Hematocrit 38.5 % (37.0-47.0); Hemoglobin 13.2 g/dL (12.0-15.0); Lymphocytes Absolute Auto 1.77 K/mm3 (0.9-3.2); Lymphocytes Percent Auto 39.2 % (18.3-44.2); Mean Corpuscular HGB Conc 34.3 g/dl (32-36); Mean Corpuscular Hemoglobin 35.7 pg (26-34); Mean Corpuscular Volume 104.1 fl (80-100); Mean Platelet Volume 8.6 fl (7.4-10.4); Monocytes Absolute Auto 0.3 K/mm3 (0.1-0.6); Monocytes Percent Auto 7.3 % (2.6-8.5); Neutrophils Absolute Auto 2.3 K/mm3 (1.3-6.7); Neutrophils Percent Auto 51.8 % (45.5-73.1); Platelet Count Result 197 k/mm3 (150-375); Red Cell Distribution Width 13.2 % (11.5-14.5); White Blood Count 4.5 K/mm3 (4.5-10.0)
[2023-05-27 19:54] LABS: Alanine Aminotransferase 30 U/L (6-35); Albumin Level 4.3 g/dL (3.5-5.1); Alkaline Phosphatase 73 U/L (38-126); Anion Gap 5 mmol/L (8-16); Aspartate Amino Transferase 36 U/L (14-36); Bilirubin,Total 0.6 mg/dL (0.2-1.3); Blood Urea Nitrogen 19 mg/dL (7-17); Calcium 9.6 mg/dL (8.4-10.2); Carbon Dioxide 30 mmol/L (22-30); Chloride 103 mmol/L (98-107); Estimated CRCL calculation 86 ml/min; Estimated Glomerular Filt Rate > 60; Glucose 91 mg/dL (65-110); Lipase 103 U/L (23-300); Potassium 3.8 mmol/L (3.4-5.0); Sodium 138 mmol/L (137-145)
[2023-05-27 20:06] LABS: Troponin I < 0.012 ng/mL (0.000-0.034)
[2023-05-27 20:09] LABS: INR 2.2; Partial Thromboplastin Time 36.9 SECONDS (22.3-36.8); Prothrombin Time 25.9 Seconds (11.1-14.7)
[2023-05-27 20:29] VITALS: BP 152/82; PULSE 70; RESP 12; O2SAT 100
[2023-05-27] MEDS: SODIUM CHLORIDE 0.9% IV 500 ML 999 ML IV CONT (20:49)
[2023-05-27] MEDS: ACETAMINOPHEN 500 MG TABLET 1000 MG PO (20:50)
[2023-05-27] MEDS: KETOROLAC 15 MG/ML VIAL (*BKC) IV PUSH (20:50)
[2023-05-27] MEDS: predniSONE 10 MG TABLET PO (21:20)
[2023-05-27] MEDS: MAGNESIUM SULF 1 GM/D5W 100 ML 1 GM/100 ML BAG IVPB (21:20)
[2023-05-27 21:32] VITALS: BP 122/83; PULSE 70; RESP 13; O2SAT 100
[2023-05-27 22:25] VITALS: BP 130/89; PULSE 70; RESP 19; O2SAT 99
== END 2023-05-27 22:25 | disposition home or self-care (01) ==
PROVIDERS: Emergency Medicine; Emergency Provider Student in an Organized Health Care Education/Training Program; PCP Family Medicine
DX: R07.9 Chest pain, unspecified (principal); R51.9 Headache, unspecified; I48.0 Paroxysmal atrial fibrillation; I10 Essential (primary) hypertension; E78.2 Mixed hyperlipidemia; M06.09 Rheumatoid arthritis without rheumatoid factor, multiple sites; M47.812 Spondylosis without myelopathy or radiculopathy, cervical region; M47.816 Spondylosis without myelopathy or radiculopathy, lumbar region; M79.7 Fibromyalgia; Z95.0 Presence of cardiac pacemaker; Z96.82 Presence of neurostimulator; Z86.73 Personal history of transient ischemic attack (TIA), and cerebral infarction without residual deficits; Z86.718 Personal history of other venous thrombosis and embolism; Z87.01 Personal history of pneumonia (recurrent); Z86.2 Personal history of diseases of the blood and blood-forming organs and certain disorders involving the immune mechanism; Z90.79 Acquired absence of other genital organ(s); Z79.01 Long term (current) use of anticoagulants
CPT/HCPCS: 36415; 70450; 71046; 80053; 83690; 84484; 85025; 85610; 85730; 93005; 96361; 96365; 96375; 99284; A9270; J1885; J3475; J7040; J7512

== ENCOUNTER 2023-06-19 23:16 | Observation (INO) | payer MEDICARE, MEDICAID, SELFPAY ==
--- NOTE | ~2023-06-19 | CT_ITS ---
EXAMINATION: CTA BRAIN/CAROTID DATE: 06/20/2023 02:41 INDICATION: Headache. Unsteady gait. TECHNIQUE: Computed tomographic angiography (CTA) of the head and neck was performed with 100 mL Omni paque-350 intravenous contrast. Multiplanar reconstructions and maximum intensity projection 3D-recon structions of the carotid arteries and of the intracranial arteries were created by the technologist on a separate workstation. Precontrast CT of the head was also obtained. Automated exposure control and iterative reconstruction technique were employed.The dose-length product was 1705.29 mGy-cm. COMPARISON: None. FINDINGS: Carotid arteries: Thoracic aorta is normal in caliber with no dissection. A small amount of atherosclerotic plaque at t he bilateral common carotid bifurcations extending to the proximal right carotid bulb. There is 0% st enosis of the right and left carotid bulbs relative to normal distal artery lumen diameter (NASCET cr iteria). Cervical soft tissues are unremarkable. Visualized apices of lungs are clear. Moderate cervi abdifatah spondylosis. Head: No acute intracranial hemorrhage, acute infarction or abnormal extra axial fluid collection. Ventricl es are normal and symmetric. No mass/mass effect. Dystrophic calcifications at the posteromedial aspe ct of the left cerebellum. No abnormally enhancing brain lesions on the postcontrast imaging. The orb its, paranasal sinuses and mastoid air cells are normal. Intracranial arteries Minimal atherosclerotic plaque without hemodynamic significant stenosis at the bilateral carotid siph ons. There is no hemodynamically significant stenosis in the vertebral, basilar and internal carotid arteries. Right vertebral artery is dominant with diminutive left vertebral artery.. There are no ane urysms identified. Both A1 and P1 segments are patent. There appear to be bilateral diminutive poste rior communicating arteries and a likely diminutive anterior communicate artery. Cerebral arterial ar borization appears symmetric. IMPRESSION: 1. 0% stenosis of the right and left carotid bulbs relative to normal distal artery lumen diameter (N ASCET criteria). 2. No acute intracranial process and unremarkable cerebral CT angiogram with no aneurysm or hemodynam ically significant stenosis. Reviewed, dictated and finalized at location A. ICAL LABORATORY SCIENTIST IMPRESSION: 1. 0% stenosis of the right and left carotid bulbs relative to normal distal ar eric lumen diameter (NASCET criteria). 2. No acute intracranial process and unremarkable cerebral CT angiogram with no aneurysm or hemodynamically significant stenosis.
--- NOTE | ~2023-06-19 | XR_ITS ---
EXAMINATION: XR chest 1V portable DATE: 06/20/2023 01:17 INDICATION: Headache, nausea and weakness TECHNIQUE: frontal view of the chest was obtained. COMPARISON: Chest radiograph dated 05/27/2023 FINDINGS: The lungs remain clear with no focal airspace opacities, pulmonary edema, pleural effusion or pneumot horax. The cardiomediastinal silhouette is normal. Dual lead pacemaker seen with leads projecting ove r the expected locations of the right atrium and right ventricle. There is a second presumed a discon nected right ventricular pacemaker lead. Spinal stimulator leads project over the central canal at th e lower thoracic spine. There are bridging osteophytes at multiple levels consistent with diffuse idi opathic skeletal hyperostosis (DISH). IMPRESSION: 1. No acute cardiopulmonary disease. Reviewed, dictated and finalized at location A. CAPPER HELPER
[2023-06-19 23:18] VITALS: BP 127/89; PULSE 69; RESP 20; TEMP 36.2; O2SAT 99
[2023-06-20] VITALS (9 sets, daily range): BP systolic 103–137; BP diastolic 68–92; PULSE 68–73; RESP 14–18; TEMP 35.6–36; O2SAT 97–100; BMI 28.5
--- NOTE | 2023-06-20 00:55 | ECG_ITS ---
Measurements Intervals [place] Rate: 70 P: 129 [place]: 188 QRS: -70 QRSD: 162 T: 59 QT: 452 QTc: 488 Interpretive Statements ELECTRONIC ATRIAL PACEMAKER ELECTRONIC VENTRICULAR PACEMAKER BASELINE ARTIFACT NO FURTHER INTERPRETATION POSSIBLE COMPARED TO ECG 05/27/2023 17:41:22 NO SIGNIFICANT CHANGES Electronically Signed On 06-20-2023 14:04:13 SCIENCE FACULTY MEMBER by Andrew Lange M.D.
[2023-06-20 01:26] LABS: Basophils Percent Auto 0.5 % (0.2-1.2); Eosinophils Absolute Auto 0.1 K/mm3 (0-0.3); Eosinophils Percent Auto 1.7 % (0-4.4); Hematocrit 34.7 % (37.0-47.0); Hemoglobin 11.8 g/dL (12.0-15.0); Immature Granulocyte Absolute 0.01 K/mm3 (0.00-0.031); Immature Granulocyte Percent A 0.2 % (0-0.5); Lymphocytes Absolute Auto 1.49 K/mm3 (0.9-3.2); Lymphocytes Percent Auto 35.2 % (18.3-44.2); Mean Corpuscular Hemoglobin 35.2 pg (26-34); Mean Corpuscular Volume 103.6 fl (80-100); Mean Platelet Volume 9.1 fl (7.4-10.4); Monocytes Absolute Auto 0.4 K/mm3 (0.1-0.6); Monocytes Percent Auto 8.7 % (2.6-8.5); Neutrophils Absolute Auto 2.3 K/mm3 (1.3-6.7); Neutrophils Percent Auto 53.7 % (45.5-73.1); Platelet Count Result 203 k/mm3 (150-375); Red Blood Count 3.35 M/mm3 (4.2-5.4); White Blood Count 4.2 K/mm3 (4.5-10.0)
[2023-06-20 01:38] LABS: INR 2.5; Prothrombin Time 29.3 Seconds (11.1-14.7)
[2023-06-20 01:39] LABS: Partial Thromboplastin Time 47.4 SECONDS (22.3-36.8)
[2023-06-20 01:45] LABS: Alanine Aminotransferase 20 U/L (6-35); Albumin Level 4.1 g/dL (3.5-5.1); Alkaline Phosphatase 85 U/L (38-126); Anion Gap 9 mmol/L (8-16); Aspartate Amino Transferase 26 U/L (14-36); Bilirubin,Total 0.5 mg/dL (0.2-1.3); Blood Urea Nitrogen 22 mg/dL (7-17); Calcium 9.4 mg/dL (8.4-10.2); Carbon Dioxide 26 mmol/L (22-30); Chloride 103 mmol/L (98-107); Estimated CRCL calculation 75 ml/min; Estimated Glomerular Filt Rate > 60; Glucose 100 mg/dL (65-110); Magnesium 2.3 mg/dL (1.6-2.3); Sodium 138 mmol/L (137-145)
[2023-06-20 01:46] LABS: Lactic Acid Reflex 0.8 mmol/L (0.7-2.0)
[2023-06-20 01:50] LABS: Appearance Urine Clear (Clear); Bacteria Urine None Seen /hpf; Bilirubin Urine Negative (Negative); Blood Urine Negative (Negative); Color Urine Yellow (Yellow); Glucose Urine UA Negative (Negative); Ketones Urine Negative (Negative); Leukocyte Esterase Ur 1+ LEU/UL (Negative); Nitrate Urine Negative (Negative); Non Pathogenic Casts 0-2; Protein Urine Negative (Negative); RBC Urine 0-2 /hpf (0-2); Specific Grav Ur 1.014 (1.001-1.035); Squamous Epithelial Cell Urine None seen /hpf (Few); Urobilinogen Urine 0.2 mg/dL (<2.0)
[2023-06-20 01:57] LABS: Troponin I < 0.012 ng/mL (0.000-0.034)
[2023-06-20 02:02] LABS: Add Urine Microscopic? YES
[2023-06-20 02:09] LABS: Influenza A QL RT-PCR Negative (Negative); Influenza B QL RT-PCR Negative (Negative); RSV RNA, RT-PCR Negative (Negative); SARS-CoV-2 RNA PCR Negative (Negative)
--- NOTE | 2023-06-20 02:46 | ED.GENADULT ---
HPI - General Adult General Chief complaint: Weakness Stated complaint: weakness Time Seen by Provider: 06/20/23 00:45 History of Present Illness HPI narrative: Patient 57-year-old female who presents emerged from with chief complaint of headache nausea weakness loss of balance. Patient reports this feels similar to whenever she has had TIAs in the past patient states symptoms started yesterday whenever she was at [facility] undergoing an echo the patient reports that she was told that her INR was subtherapeutic at that time and she takes Coumadin for atrial fibrillation. The patient reports that while she was at [facility] he she was in the Cardiology Department but did not go to the emergency department somehow or another managed to drive home but does not remember driving home called her primary doctor during the day today who recommended that she come to the emergency department the patient waited several hours and decided to finally come to the emergency department this evening. Related Data Home Medications Medication Instructions Recorded Confirmed ascorbic acid (vitamin C) 500 mg 500 mg PO DAILY 01/29/22 06/05/23 tablet (Vitamin C) elderberry fruit 200 mg capsule 200 mg PO DAILY 01/29/22 06/05/23 metoprolol succinate 50 mg 50 mg PO QAM 06/19/22 06/05/23 tablet,extended release 24 hr triamcinolone acetonide 0.5 % 1 applic topical DAILY 08/01/22 06/05/23 topical cream (Triderm) golimumab 50 mg/0.5 mL 50 mg subcut MONTHLY 03/26/23 06/05/23 subcutaneous pen injector (Simponi) Allergies Allergy/AdvReac Type Severity Reaction Status Date / Time meclizine Allergy Severe Rash Verified 06/20/23 00:26 carbamazepine [From Tegretol] Allergy Intermediate Blister Verified 06/20/23 00:26 Cephalosporins Allergy Mild RASH Verified 06/20/23 00:26 clarithromycin Allergy Mild RASH Verified 06/20/23 00:26 imipramine Allergy Mild RASH Verified 06/20/23 00:26 Penicillins Allergy Mild HIVES Verified 06/20/23 00:26 cefuroxime [From Ceftin] Allergy Hives Verified 06/20/23 00:26 etanercept [From Enbrel] Allergy Redness of Verified 06/20/23 00:26 Skin hydromorphone [From Dilaudid] Allergy Hives Verified 06/20/23 00:26 oxycodone [From Percocet] Allergy Hives Verified 06/20/23 00:26 prochlorperazine Allergy Swelling Verified 06/05/23 09:41 [From Compazine] of Lip/Tongue/Throat propoxyphene [From Darvon] Allergy Hives Verified 06/05/23 09:41 propranolol [From Inderal [place]] Allergy Rash Verified 06/05/23 09:41 alcohol AdvReac Severe Blister Verified 06/05/23 09:41 [From Mastisol Adhesive] chloroxylenol [From [place] 7] AdvReac Severe rash Verified 06/05/23 09:41 gum mastic AdvReac Severe Blister Verified 06/05/23 09:41 [From Mastisol Adhesive] methyl salicylate AdvReac Severe Blister Verified 06/05/23 09:41 [From Mastisol Adhesive] storax AdvReac Severe Blister Verified 06/05/23 09:41 [From Mastisol Adhesive] tizanidine AdvReac Intermediate Hallucinati Verified 06/05/23 09:41 ng codeine AdvReac Unknown Vomiting Verified 06/05/23 09:41 diphenhydramine AdvReac Vomiting Verified 06/05/23 09:41 [From Benadryl] hydrocodone [From Vicodin] AdvReac Vomiting Verified 06/05/23 09:41 Dermabond Allergy Intermediate Itching Uncoded 06/05/23 09:41 Review of Systems Review of Systems: A 10 system review of systems was completed on the patient and is negative except for what is stated in the HPI. Nursing and ancillary documentation was reviewed. [facility] Past Medical History Medical History A-fib Abdominal bloating Abdominal lump Abnormality of heart beat Abrasion of toe Allergic dermatitis Allergic reaction to allergy skin test Anemia, unspecified Anxiety Anxiety about health Ataxia Atopic dermatitis Atypical face pain BMI 29.0-29.9,adult Bradycardia Cervical pain Confusion D-dimer, elevated Degenerative joint di
[2023-06-20] MEDS: METOCLOPRAMIDE HCL INJ 10 MG/2 ML VIAL IV PUSH (04:25)
[2023-06-20] MEDS: rOPINIRole HCL 1 MG TABLET PO ×4 (05:12→23:47)
[2023-06-20 05:21] LABS: Troponin I < 0.012 ng/mL (0.000-0.034)
--- NOTE | 2023-06-20 08:13 | PC.NURSE ---
heart healthly breakfast tray ordered
--- NOTE | 2023-06-20 09:30 | ADMGEN ---
This patient, Naye Hart, was admitted to 3 [facility] Surg Room 317-01 @ 0930. Patient/family oriented to hospital policies and general routines including ID bracelet, bed and alarms, visiting hours, pain management, procedures, bathroom and other care routines, personal items, smoking policy, room service/diet, and visiting hours. Information on how to activate the Rapid Response Team has been discussed. Patient/Family are encouraged to report perceived risks to care and to ask questions if they do not understand what they are told or what they should do.
--- NOTE | 2023-06-20 14:41 | PM.IMHP ---
H&P: HPI History of Present Illness Date/Time: 06/20/23 14:41 Chief Complaint: Weakness Narrative: 49-year-old female who presented to the ED after being directed by his primary care physician last night. She reports unsteady gait and veering towards right side. It started since she got the echocardiogram done yesterday in the morning. She was at [facility] and had an echocardiogram done. Following the echocardiogram see felt wobbly and was unsteady in her gait. Her blood pressure was noted to be elevated. It is see however drove back home and does not remember how she did that. After she reached home she still the same way and called her primary care doctor who advised her to go to the ER. Patient also reports she had severe headache associated with this which she felt more of tightness or tightening sensation on the top. She reports no prior history of migraine however I see Ubrelvy as 1 of her medication. She received metoclopramide in the ER and feels lot better in her headache. CTA head and neck was done in the ER which came back negative for any acute findings. She has a pacemaker for inappropriate sinus tachycardia and hence MRI could not be performed. Reports history of passing out and lowish blood pressure intermittently. Urinalysis showed 6-10 WBC however she reports no urinary symptoms. ER doc spoken to [facility] however was recommended to stay locally. Neurology has been consulted from the ER. Review of Systems Review of Systems: - CONSTITUTIONAL: Denies weight loss, fever and chills. - HEENT: Denies changes in vision and hearing - RESPIRATORY: Denies SOB and cough. - CV: Denies palpitations and CP. - GI: Denies abdominal pain, nausea, vomiting and diarrhea. - : Denies dysuria and urinary frequency. - MSK: Denies myalgia and joint pain. - SKIN: Denies rash and pruritus. - NEUROLOGICAL: See HPI - PSYCHIATRIC: Denies recent changes in mood. Denies anxiety and depression. [facility] Past Medical History Medical History A-fib Abdominal bloating Abdominal lump Abnormality of heart beat Abrasion of toe Allergic dermatitis Allergic reaction to allergy skin test Anemia, unspecified Anxiety Anxiety about health Ataxia Atopic dermatitis Atypical face pain BMI 29.0-29.9,adult Bradycardia Cervical pain Confusion D-dimer, elevated Degenerative joint disease of cervical and lumbar spine Depression Diarrhea Dizziness DVT (deep venous thrombosis) Ear pain Essential (primary) hypertension Family history of beta thalassemia Fibromyalgia Flatulence Foraminal stenosis of lumbar region Foreign body in ear Foreign body of toe Fracture of second toe, left, closed Groin hematoma Groin pain Headache History of deep vein thrombosis Hypoglycemia Hyponatremia Inappropriate sinus tachycardia Left ear pain Lesion of skin of nose Lightheadedness Lipid disorder Lumbar stenosis MCL sprain of left knee Migraine Mixed hyperlipidemia Pancreatitis Paroxysmal atrial fibrillation Pneumonia Presence of IVC filter Presence of neurostimulator Restless leg syndrome Rheumatoid arthritis Rheumatoid arthritis, seronegative, multiple sites RSD (reflex sympathetic dystrophy) Spasm of lumbar paraspinous muscle SVT (supraventricular tachycardia) TIA (transient ischemic attack) Vertigo Vomiting Wears glasses Surgical History Surgical History H/O cardiac radiofrequency ablation H/O hernia repair History of arthroscopic knee surgery History of back surgery History of endometrial ablation History of permanent cardiac pacemaker placement 2019 History of surgery on left wrist History of tubal ligation Hx of atrioventricular node ablation S/P insertion of spinal cord stimulator S/P IVC filter Status post surgical removal of both fallopian tubes Family History
--- NOTE | 2023-06-20 15:12 | WPDNEURCNPN ---
Assessment and Plan Assessment and plan (1) Unsteady gait: Code(s): R26.81 - Unsteadiness on feet Status: Acute (2) Brain TIA: Code(s): G45.9 - Transient cerebral ischemic attack, unspecified Status: Acute Plan 1. Recurrence of symptomatology in addition to the ongoing history of migraine, and documented subtherapeutic INR in addition to the recent echocardiogram at [facility] MRI could not be done, but head neck CTA is normal and we can repeat the CT scan in 3 to 5 days if necessary treatment will be continued as such will make further discussion with her Consult date: 06/20/23 HPI: Naye Hart is a 57 year old female Has been admitted to the hospital through the emergency room for the complaints of headache along with nausea and also with the statement that she has had the same feelings when she had the previous TIA yesterday she was at [facility] [place] going and echocardiogram at that particular time she was informed that her INR was subtherapeutic as she had been taking the Coumadin for atrial fibrillation. She was in the Cardiology Department at that particular time but did not go to the emergency room drove home and subsequently called her primary doctor recommended her to come to the ER her medications included metoprolol 50mg daily and Simponi 50mg Q 4 weeks subcu . Carries history of allergy to multiple medication as outlined and she has ongoing history of multiple medical problems as outlined particularly including the atrial fibrillation she has never alcohol intake never substance user and initial exam in the emergency room was documented as generally unremarkable vital signs were normal considering the possibility of TIA versus migraine she was admitted to the hospital for further eval her CTA in the emergency room of the head and neck was negative Dr. Hernandez was contacted on the telephone was suggested to have the MRI but as she had the pacemaker it could not be carried out her CBC and BMP were normal so as the routine lab and she was negative for influenza a, influenza B, RSV, and COVID, was admitted to the hospital for the diagnosis and as mentioned before CTA of the head and neck was normal [facility] Past Medical History Medical History A-fib Abdominal bloating Abdominal lump Abnormality of heart beat Abrasion of toe Allergic dermatitis Allergic reaction to allergy skin test Anemia, unspecified Anxiety Anxiety about health Ataxia Atopic dermatitis Atypical face pain BMI 29.0-29.9,adult Bradycardia Cervical pain Confusion D-dimer, elevated Degenerative joint disease of cervical and lumbar spine Depression Diarrhea Dizziness DVT (deep venous thrombosis) Ear pain Essential (primary) hypertension Family history of beta thalassemia Fibromyalgia Flatulence Foraminal stenosis of lumbar region Foreign body in ear Foreign body of toe Fracture of second toe, left, closed Groin hematoma Groin pain Headache History of deep vein thrombosis Hypoglycemia Hyponatremia Inappropriate sinus tachycardia Left ear pain Lesion of skin of nose Lightheadedness Lipid disorder Lumbar stenosis MCL sprain of left knee Migraine Mixed hyperlipidemia Pancreatitis Paroxysmal atrial fibrillation Pneumonia Presence of IVC filter Presence of neurostimulator Restless leg syndrome Rheumatoid arthritis Rheumatoid arthritis, seronegative, multiple sites RSD (reflex sympathetic dystrophy) Spasm of lumbar paraspinous muscle SVT (supraventricular tachycardia) TIA (transient ischemic attack) Vertigo Vomiting Wears glasses Surgical History Surgical History H/O cardiac radiofrequency ablation H/O hernia repair History of arthroscopic knee surgery History of back surgery History of endometrial ablation History of permanent cardiac pacemaker placement 2019 History of surgery on left wrist Histo
[2023-06-20] MEDS: buPROPion HCL XL (24 HR) 150 MG TABCR PO (18:05)
[2023-06-20] MEDS: ASCORBIC ACID 500 MG TABLET PO (18:05)
[2023-06-20] MEDS: METOPROLOL SUCCINATE EXT REL 50 MG TABCR PO (18:05)
[2023-06-20] MEDS: MONTELUKAST SODIUM 10 MG TABLET PO (18:05)
[2023-06-20] MEDS: WARFARIN (*PBKC) 3 MG TABLET PO (18:08)
[2023-06-20] MEDS: WARFARIN (*PBKC) 5 MG TABLET PO (18:08)
[2023-06-20] MEDS: AZELASTINE HCL NASAL 0.1% 137 MCG/SPR 30 ML BTL 1 SPRAY NASAL (20:08)
[2023-06-20] MEDS: DULoxetine HCL 60 MG CAPSULE.DR PO (20:08)
[2023-06-20] MEDS: METOCLOPRAMIDE HCL INJ 10 MG/2 ML VIAL 5 MG IV PUSH (21:40)
[2023-06-21] VITALS (8 sets, daily range): BP systolic 115–130; BP diastolic 58–75; PULSE 69–70; RESP 16; TEMP 35.3–36.3; O2SAT 98–100
[2023-06-21] MEDS: hydrOXYzine HCL 12.5 MG TABLET PO ×2 (08:53→17:15)
[2023-06-21] MEDS: FOLIC ACID 1 MG TABLET PO (08:53)
[2023-06-21] MEDS: rOPINIRole HCL 1 MG TABLET PO ×3 (08:54→17:14)
[2023-06-21] MEDS: buPROPion HCL XL (24 HR) 150 MG TABCR PO (08:54)
[2023-06-21] MEDS: METOPROLOL SUCCINATE EXT REL 50 MG TABCR PO (08:54)
[2023-06-21] MEDS: MONTELUKAST SODIUM 10 MG TABLET PO (08:54)
[2023-06-21] MEDS: BACLOFEN 5 MG TABLET PO (08:55)
[2023-06-21] MEDS: ROSUVASTATIN 10 MG TABLET 20 MG PO (08:55)
[2023-06-21] MEDS: ASCORBIC ACID 500 MG TABLET PO (08:55)
[2023-06-21] MEDS: DICYCLOMINE HCL 10 MG CAPSULE PO (08:55)
[2023-06-21] MEDS: AZELASTINE HCL NASAL 0.1% 137 MCG/SPR 30 ML BTL 1 SPRAY NASAL (08:56)
[2023-06-21] MEDS: METOCLOPRAMIDE HCL INJ 10 MG/2 ML VIAL 5 MG IV PUSH (10:58)
[2023-06-21 12:36] LABS: INR 2.9; Prothrombin Time 32.4 Seconds (11.1-14.7)
--- NOTE | 2023-06-21 14:31 | PM.DS ---
DS: Admitting Diagnosis Discharge Date 06/21/2023 Admitting Diagnosis Unsteady gait DS: Discharge Diagnosis Discharge Diagnosis (1) Bilateral leg paresthesia: Code(s): R20.2 - Paresthesia of skin Status: Acute (2) Unsteady gait: Code(s): R26.81 - Unsteadiness on feet Status: Acute (3) Migraine: Qualifiers: Migraine type: unspecified Status migrainosus presence: without status migrainosus Intractability: intractable Qualified Code(s): G43.919 - Migraine, unspecified, intractable, without status migrainosus Code(s): G43.909 - Migraine, unspecified, not intractable, without status migrainosus Status: Acute (4) Complex regional pain syndrome: Qualifiers: Complex regional pain syndrome type: type II (causalgia) Complex regional pain syndrome affected site: unspecified Qualified Code(s): G56.40 - Causalgia of unspecified upper limb Status: Acute (5) RSD (reflex sympathetic dystrophy): Code(s): G90.50 - Complex regional pain syndrome I, unspecified Status: Chronic DS: Summary Hospital Course Hospital Course: 49-year-old female who presented to the ED after being directed by his primary care physician last night.? She reports unsteady gait and veering towards right side.? It started since she got the echocardiogram done yesterday in the morning.? She was at [facility] and had an echocardiogram done.? Following the echocardiogram see felt wobbly and was unsteady in her gait.? Her blood pressure was noted to be elevated.? It is see however drove back home and does not remember how she did that.? After she reached home she still the same way and called her primary care doctor who advised her to go to the ER.? Patient also reports she had severe headache associated with this which she felt more of tightness or tightening sensation on the top.? She reports no prior history of migraine however I see Ubrelvy as 1 of her medication.? She received metoclopramide in the ER and feels lot better in her headache.? CTA head and neck was done in the ER which came back negative for any acute findings.? She has a pacemaker for inappropriate sinus tachycardia and hence MRI could not be performed.? Reports history of passing out and lowish blood pressure intermittently in the past.? Urinalysis showed 6-10 WBC however she reports no urinary symptoms.? ER doc spoken to [facility] however was recommended to stay locally.? Neurology has been consulted from the ER.? EKG with paced rhythm.? Neurology evaluated and okay to discharge per Neurology recommendations. Her symptoms improved with improvement of her headache. PT OT evaluated her and remained independent. She will continue to follow-up with neurology as an outpatient basis since he already has scheduled appointment with Dr. Hernandez. Reported at syncopal episode sometimes with lowish blood pressure.? Will continue to monitor.? Blood pressure optimal here Bilateral lower extremity pain and paresthesia EMG nerve conduction study performed 06/11 with bilateral chronic SI radiculopathy more prominent on left than right.? On duloxetine buprenorphine had seen Pain Management in the past. Status post spinal stimulator implantation Multilevel lumbar spinal fusion surgery in the past History of reflex sympathetic dystrophy since right knee injury 13 years ago Migraine post permanent pacemaker implantation 2019 for inappropriate sinus tachycardia/atrial fibrillation Proximal atrial fibrillation status post AV node ablation Status post IVC filter placement Rheumatoid arthritis History of TIA Hyperlipidemia History of DVT DVT prophylaxis on Coumadin therapeutic INR Code status full code Time Spent with Patient Time attestation: Total time spent providing and/or coordinating discharge services: 35 minutes Exam Narrative: GENERAL: Well-appearing, well-nourished, and in no acute distress. HEAD: Normocephalic, atraumatic.
[2023-06-21] MEDS: WARFARIN (*PBKC) 3 MG TABLET PO (17:14)
[2023-06-21] MEDS: WARFARIN (*PBKC) 5 MG TABLET PO (17:15)
[2023-06-21] MEDS: WARFARIN (*PBKC) 1 MG TABLET PO (17:18)
== END 2023-06-21 18:00 | disposition home or self-care (01) ==
LOC: ANHED 06-20 07:37 → ANH3MEDSUR 06-20 08:20
PROVIDERS: Admitting Provider Internal Medicine; Emergency Provider Emergency Medicine; PCP Family Medicine; Visit Provider Internal Medicine
DX: G45.9 Transient cerebral ischemic attack, unspecified (principal); G43.919 Migraine, unspecified, intractable, without status migrainosus; G90.50 Complex regional pain syndrome I, unspecified; R79.1 Abnormal coagulation profile; I48.91 Unspecified atrial fibrillation; G25.81 Restless legs syndrome; Z95.0 Presence of cardiac pacemaker; F41.9 Anxiety disorder, unspecified; F32.A Depression, unspecified; I10 Essential (primary) hypertension; E78.2 Mixed hyperlipidemia; M06.9 Rheumatoid arthritis, unspecified; Z86.718 Personal history of other venous thrombosis and embolism; Z79.01 Long term (current) use of anticoagulants; Z79.51 Long term (current) use of inhaled steroids; Z86.73 Personal history of transient ischemic attack (TIA), and cerebral infarction without residual deficits; Z79.52 Long term (current) use of systemic steroids; Z79.899 Other long term (current) drug therapy; Z20.822 Contact with and (suspected) exposure to COVID-19
CPT/HCPCS: 36415; 70496; 70498; 71045; 80053; 81001; 81025; 83605; 83735; 84484; 85025; 85610; 85730; 87086; 87637; 93005; 96374; 96376; 97161; 97165; 99285; A9270; G0378; J2765; Q9967

== ENCOUNTER 2023-06-24 10:28 | Outpatient (CLI) | payer MEDICARE, MEDICAID, SELFPAY ==
--- NOTE | ~2023-06-24 | CT_ITS ---
Noncontrast CT scan of the lumbar spine CLINICAL HISTORY: Back pain, spondylosis TECHNIQUE: Axial noncontrast imaging of the lumbar spine was performed. Sagittal and coronal reformat jaden images were constructed. Dose reduction technique was used on this scan by utilizing automated ex posure control and iterative reconstruction technique. The dose-length product (DLP) was 1237.46 mGy- cm. COMPARISON: 03/27/2022 FINDINGS: Posterior fusion hardware is again present from L1 through L5, bilateral rods and transpedi cular screws present. There are interbody fusion devices at the L1-L2, L2-L3, L3-L4, and L4-L5 disc s paces, as on prior exam. There is posterior decompression at L1, L2, L3, and L4. There is a prominent posterior osteophyte which projects into the spinal canal from the L1-L2 level, unchanged. No other areas of definite canal stenosis is identified. Neural foramina are relatively we ll preserved throughout the lumbar spine. Paravertebral soft tissues are unremarkable aside from expected postoperative change. IVC filter note d. Impression: Extensive posterior and interbody fusion of the lumbar spine, with posterior decompression, stable fr om prior exam. Mild degenerative change, stable from prior exam. Reviewed, dictated and finalized at location M. SCRIPT DEVELOPER Impression: Extensive posterior and interbody fusion of the lumbar spine, with posterior de compression, stable from prior exam. Mild degenerative change, stable from prior exam.
--- NOTE | ~2023-06-24 | CT_ITS ---
EXAMINATION: CT pelvis wo con DATE: 06/24/2023 10:49 INDICATION: Sacroiliitis TECHNIQUE: Computed tomography (CT) of the pelvis was performed without intravenous contrast. The dos e-length product was 530.34 mGy-cm. Automated exposure control and iterative reconstruction technique were employed. COMPARISON: Sacrum/coccyx dated 04/20/2023 FINDINGS: There are surgical changes laminectomy with fusion visualized at the L4-5 levels. There are 2 large bore screws transfixing the right sacroiliac joint. There is mild symmetric osteoarthritis o f the sacroiliac joints. Mild symmetric osteoarthritis of the hips. Mild thickening of the sigmoid colon which may be due to underdistention. Colonic diverticulosis with out evidence for diverticulitis. Mild atherosclerosis. No lymphadenopathy. Normal appendix. No abnorm al pelvic masses or fluid collections. IMPRESSION: 1. Mild thickening of the sigmoid colon without focal mass. This may report related to underdistentio n, although further clinical evaluation is recommended. 2: Status post lumbar laminectomy with posterior and interbody fusion at L4-5. There are changes of r ight sacroiliac joint fusion with 2 large bore screws. Mild bilateral symmetric degenerative changes of the sacroiliac joints. Reviewed, dictated and finalized at location L. LING INSPECTOR IMPRESSION: 1. Mild thickening of the sigmoid colon without focal mass. This may report rel ated to underdistention, although further clinical evaluation is recommended. 2: Status post lumbar laminectomy with posterior and interbody fusion at L4-5. There are changes of right sacroiliac joint fusion with 2 large bore screws. Mi ld bilateral symmetric degenerative changes of the sacroiliac joints.
[2023-06-24 12:01] LABS: Erythrocyte Sedimentation Rate 53 mm/hr (0-20)
[2023-06-24 12:14] LABS: LDL Cholesterol Direct 96 mg/dL
[2023-06-24 12:18] LABS: CRP < 0.5 mg/dL (<1.0); Cholesterol 238 mg/dL (0-200); HDL Direct 40 mg/dL; Triglycerides 329 mg/dL (<150)
== END 2023-06-24 10:29 | disposition home or self-care (01) ==
PROVIDERS: Nurse Practitioner Family; PCP Family Medicine; Visit Provider Physician Assistant
DX: M47.816 Spondylosis without myelopathy or radiculopathy, lumbar region (principal); M47.817 Spondylosis without myelopathy or radiculopathy, lumbosacral region; M43.26 Fusion of spine, lumbar region; K63.89 Other specified diseases of intestine; I48.91 Unspecified atrial fibrillation; G43.909 Migraine, unspecified, not intractable, without status migrainosus; R74.8 Abnormal levels of other serum enzymes; M46.1 Sacroiliitis, not elsewhere classified; M70.60 Trochanteric bursitis, unspecified hip; Z98.1 Arthrodesis status
CPT/HCPCS: 36415; 72131; 72192; 80061; 85652; 86140

== ENCOUNTER 2023-06-24 16:12 | Emergency (ER) | payer MEDICARE, MEDICAID, SELFPAY ==
[2023-06-24] VITALS (21 sets, daily range): BP systolic 114–152; BP diastolic 79–90; PULSE 78–97; RESP 12–24; TEMP 36.5; O2SAT 96–100
--- NOTE | ~2023-06-24 | CT_ITS ---
EXAMINATION: CTA brain carotid DATE: 06/24/2023 21:34 INDICATION: dysarthria, ataxia, recent TIA TECHNIQUE: Computed tomographic angiography (CTA) of the head and neck was performed with 100 mL Omni paque-350 intravenous contrast. Automated exposure control and iterative reconstruction technique wer e employed. The dose-length product was 1179.73 mGy-cm. Maximum intensity projection and volume rend ered 3D-reconstructions were created by the technologist on a separate workstation. COMPARISON: CT brain, same date. FINDINGS: CTA HEAD: No large vessel occlusion, aneurysm, high flow vascular malformation, nidus or extravasation. Symmetr ic parenchymal enhancement. Patent cerebral veins. CTA NECK: Aortic arch and proximal great vessels: Normal arch anatomy. Right common carotid, carotid bifurcation, and internal carotid artery: Mild calcified plaque.There i s 0% stenosis of the proximal right internal carotid artery relative to normal distal artery lumen di ameter (NASCET criteria). Left common carotid, carotid bifurcation, and internal carotid artery: Mild calcified plaque.There is 0% stenosis of the proximal left internal carotid artery relative to normal distal artery lumen diam eter (NASCET criteria). Vertebral arteries: No significant plaque or stenosis. Right vertebral artery is dominant, Other findings: None. IMPRESSION: No acute large vessel infarct. No significant vertebral or carotid artery stenosis. Reviewed, dictated and finalized at location K. H PATTERN MAKER
--- NOTE | ~2023-06-24 | CT_ITS ---
EXAMINATION: CT brain wo con DATE: 06/24/2023 17:02 INDICATION: severe headache . TECHNIQUE: Computed tomography (CT) of the head was performed 06/20/2023 intravenous contrast. The mA was adjusted according to patient size. Iterative reconstruction technique was employed. The dose-ashwin gth product was 605.33 mGy-cm. COMPARISON: 05/27/2023. FINDINGS: No acute intracranial hemorrhage or extra-axial fluid collection. No hydrocephalus, mass, or herniation. No acute ischemic infarct. Unremarkable dural venous sinus attenuation. No acute osseous abnormality. Trace right mastoid fluid, the remaining aerated spaces are clear. Mild atrophy and chronic white matter change. Atherosclerotic intracranial calcification. Stable dyst rophic left cerebellar calcification. IMPRESSION: No acute intracranial process. Reviewed, dictated and finalized at location K. TESTER
--- NOTE | 2023-06-24 20:44 | ED.HA ---
HPI - Headache General Chief Complaint: Headache Stated Complaint: headache Time Seen by Provider: 06/24/23 19:35 History of Present Illness HPI Narrative: patient is a 57-year-old female with a history of RSD, inappropriate tachycardia status post pacemaker, AFib on Coumadin, TIA presenting with concerns for TIA. Patient states that she was recently hospitalized for a TIA here last week. States that she had a TIA several years ago and each episode has been similar. She has a severe headache which is then followed by a feeling of off balance. Tonight she developed this severe headache and felt like she was leaning to the right. She called her son who was concerned that she was slurring her speech so she came in for evaluation. States that she continues to have a severe headache but her speech changes and off-balance sensation have resolved. States that she has been compliant with her Coumadin. No vision changes, numbness, weakness. States that her left leg has felt heavy for at least the last week. No further complaints. Related Data Home Medications Medication Instructions Recorded Confirmed ascorbic acid (vitamin C) 500 mg 500 mg PO DAILY 01/29/22 06/20/23 tablet (Vitamin C) metoprolol succinate 50 mg 50 mg PO QAM 06/19/22 06/20/23 tablet,extended release 24 hr triamcinolone acetonide 0.5 % 1 applic topical PRN PRN Rash 08/01/22 06/20/23 topical cream (Triderm) golimumab 50 mg/0.5 mL 50 mg subcut MONTHLY 03/26/23 06/20/23 subcutaneous pen injector (Simponi) baclofen 5 mg tablet 5 mg PO DAILY 06/20/23 06/20/23 diclofenac sodium 50 mg 50 mg PO PRN 06/20/23 06/20/23 tablet,delayed release dicyclomine 10 mg capsule 10 mg PO DAILY 06/20/23 06/20/23 fluticasone propionate 0.05 % 1 applic topical PRN PRN Rash 06/20/23 06/20/23 topical cream methotrexate sodium 2.5 mg tablet 2.5 mg PO WEEKLY 06/20/23 06/20/23 nystatin 100,000 unit/gram topical 1 applic topical PRN PRN Rash 06/20/23 06/20/23 cream Allergies Allergy/AdvReac Type Severity Reaction Status Date / Time meclizine Allergy Severe Rash Verified 06/23/23 12:46 carbamazepine [From Tegretol] Allergy Intermediate Blister Verified 06/23/23 12:46 Cephalosporins Allergy Mild RASH Verified 06/23/23 12:46 clarithromycin Allergy Mild RASH Verified 06/23/23 12:46 imipramine Allergy Mild RASH Verified 06/23/23 12:46 Penicillins Allergy Mild HIVES Verified 06/23/23 12:46 cefuroxime [From Ceftin] Allergy Hives Verified 06/23/23 12:46 etanercept [From Enbrel] Allergy Redness of Verified 06/23/23 12:46 Skin hydromorphone [From Dilaudid] Allergy Hives Verified 06/23/23 12:46 oxycodone [From Percocet] Allergy Hives Verified 06/23/23 12:46 prochlorperazine Allergy Swelling Verified 06/23/23 12:46 [From Compazine] of Lip/Tongue/Throat propoxyphene [From Darvon] Allergy Hives Verified 06/23/23 12:46 propranolol [From Inderal LA] Allergy Rash Verified 06/23/23 12:46 alcohol AdvReac Severe Blister Verified 06/23/23 12:46 [From Mastisol Adhesive] chloroxylenol [From Langston 7] AdvReac Severe rash Verified 06/23/23 12:46 gum mastic AdvReac Severe Blister Verified 06/23/23 12:46 [From Mastisol Adhesive] methyl salicylate AdvReac Severe Blister Verified 06/23/23 12:46 [From Mastisol Adhesive] storax AdvReac Severe Blister Verified 06/23/23 12:46 [From Mastisol Adhesive] tizanidine AdvReac Intermediate Hallucinati Verified 06/23/23 12:46 ng codeine AdvReac Unknown Vomiting Verified 06/23/23 12:46 diphenhydramine AdvReac Vomiting Verified 06/23/23 12:46 [From Benadryl] hydrocodone [From Vicodin] AdvReac Vomiting Verified 06/23/23 12:46 Dermabond Allergy Intermediate Itching Uncoded 06/23/23 12:46 Review of Systems Review of Systems: All systems reviewed & are unremarkable except as noted in HPI and below PMFSH Past Medical History Medical History A-fib Abdominal bloatin
[2023-06-24] MEDS: METOCLOPRAMIDE HCL INJ 10 MG/2 ML VIAL IV PUSH (20:51)
[2023-06-24] MEDS: SODIUM CHLORIDE 0.9% IV 1,000 ML 999 ML IV CONT (20:52)
[2023-06-24] MEDS: KETOROLAC 30 MG/ML VIAL (*BKC) IV PUSH (20:52)
[2023-06-24] MEDS: MAGNESIUM SULF 2 GM/WATER 50ML 2 GM/50 ML BAG IVPB (20:52)
[2023-06-24 20:58] LABS: Basophils Percent Auto 0.5 % (0.2-1.2); Eosinophils Absolute Auto 0.1 K/mm3 (0-0.3); Eosinophils Percent Auto 1.4 % (0-4.4); Hematocrit 34.8 % (37.0-47.0); Immature Granulocyte Absolute 0.01 K/mm3 (0.00-0.031); Immature Granulocyte Percent A 0.2 % (0-0.5); Lymphocytes Percent Auto 40.3 % (18.3-44.2); Mean Corpuscular HGB Conc 34.5 g/dl (32-36); Mean Corpuscular Hemoglobin 35.5 pg (26-34); Mean Platelet Volume 8.9 fl (7.4-10.4); Monocytes Absolute Auto 0.3 K/mm3 (0.1-0.6); Monocytes Percent Auto 7.8 % (2.6-8.5); Neutrophils Absolute Auto 2.1 K/mm3 (1.3-6.7); Neutrophils Percent Auto 49.8 % (45.5-73.1); Platelet Count Result 244 k/mm3 (150-375); Red Blood Count 3.38 M/mm3 (4.2-5.4); Red Cell Distribution Width 13.6 % (11.5-14.5); White Blood Count 4.2 K/mm3 (4.5-10.0)
[2023-06-24 21:08] LABS: Alanine Aminotransferase 21 U/L (6-35); Albumin Level 4.1 g/dL (3.5-5.1); Alkaline Phosphatase 94 U/L (38-126); Anion Gap 8 mmol/L (8-16); Aspartate Amino Transferase 29 U/L (14-36); Bilirubin,Total 0.5 mg/dL (0.2-1.3); Blood Urea Nitrogen 22 mg/dL (7-17); Calcium 9.3 mg/dL (8.4-10.2); Carbon Dioxide 24 mmol/L (22-30); Chloride 107 mmol/L (98-107); Estimated CRCL calculation 97 ml/min; Estimated Glomerular Filt Rate > 60; Glucose 86 mg/dL (65-110); Magnesium 2.2 mg/dL (1.6-2.3); Potassium 3.9 mmol/L (3.4-5.0); Sodium 139 mmol/L (137-145)
[2023-06-24 21:09] LABS: INR 3.4; Partial Thromboplastin Time 42.2 SECONDS (22.3-36.8); Prothrombin Time 36.7 Seconds (11.1-14.7)
[2023-06-24 21:30] LABS: Appearance Urine Cloudy (Clear); Bacteria Urine None Seen /hpf; Bilirubin Urine Negative (Negative); Blood Urine Negative (Negative); Color Urine Yellow (Yellow); Glucose Urine UA Negative (Negative); Ketones Urine Trace mg/dL (Negative); Leukocyte Esterase Ur Negative LEU/UL (Negative); Nitrate Urine Negative (Negative); Non Pathogenic Casts 0-2; Protein Urine Negative (Negative); RBC Urine 0-2 /hpf (0-2); Specific Grav Ur 1.026 (1.001-1.035); Squamous Epithelial Cell Urine None seen /hpf (Few); Uric Acid Crystals Urine Present /hpf; Urobilinogen Urine 0.2 mg/dL (<2.0); WBC Urine 0-5 /hpf
[2023-06-24 21:31] LABS: Add Urine Microscopic? YES
--- NOTE | 2023-06-24 23:08 | PC.NURSE ---
report and care given to CHRIS Orta. all questions answered.
== END 2023-06-24 23:44 | disposition home or self-care (01) ==
PROVIDERS: Emergency Provider Emergency Medicine; PCP Family Medicine
DX: G43.909 Migraine, unspecified, not intractable, without status migrainosus (principal); R47.81 Slurred speech; I48.91 Unspecified atrial fibrillation; I10 Essential (primary) hypertension; M06.09 Rheumatoid arthritis without rheumatoid factor, multiple sites; M47.816 Spondylosis without myelopathy or radiculopathy, lumbar region; M47.812 Spondylosis without myelopathy or radiculopathy, cervical region; F41.9 Anxiety disorder, unspecified; F32.A Depression, unspecified; Z95.0 Presence of cardiac pacemaker; Z96.82 Presence of neurostimulator; Z86.73 Personal history of transient ischemic attack (TIA), and cerebral infarction without residual deficits; Z87.01 Personal history of pneumonia (recurrent); Z86.718 Personal history of other venous thrombosis and embolism; Z79.01 Long term (current) use of anticoagulants
CPT/HCPCS: 36415; 70450; 70496; 70498; 72131; 72192; 80053; 80061; 81001; 83735; 85025; 85610; 85652; 85730; 86140; 96361; 96365; 96375; 99284; J1885; J2765; J3475; J7030; Q9967

== ENCOUNTER 2023-07-01 11:43 | Outpatient (CLI) | payer MEDICARE, MEDICAID, SELFPAY | END 2023-07-01 11:44 | disposition home or self-care (01) | LOC: ANHLAB 11:45 | PROVIDERS: PCP Family Medicine; Visit Provider Student in an Organized Health Care Education/Training Program | DX: D50.8 Other iron deficiency anemias (principal) | CPT/HCPCS: 36415; 82728 ==

== ENCOUNTER 2023-08-12 08:10 | Outpatient (CLI) | payer MEDICARE, MEDICAID, SELFPAY ==
[2023-08-12 08:51] LABS: Basophils Percent Auto 0.6 % (0.2-1.2); Eosinophils Absolute Auto 0.1 K/mm3 (0-0.3); Eosinophils Percent Auto 2.3 % (0-4.4); Hematocrit 38.4 % (37.0-47.0); Lymphocytes Absolute Auto 1.93 K/mm3 (0.9-3.2); Lymphocytes Percent Auto 54.7 % (18.3-44.2); Mean Corpuscular HGB Conc 33.9 g/dl (32-36); Mean Corpuscular Hemoglobin 35.6 pg (26-34); Mean Corpuscular Volume 105.2 fl (80-100); Mean Platelet Volume 8.8 fl (7.4-10.4); Monocytes Absolute Auto 0.3 K/mm3 (0.1-0.6); Monocytes Percent Auto 7.6 % (2.6-8.5); Neutrophils Absolute Auto 1.2 K/mm3 (1.3-6.7); Neutrophils Percent Auto 34.8 % (45.5-73.1); Platelet Count Result 217 k/mm3 (150-375); Red Blood Count 3.65 M/mm3 (4.2-5.4); Red Cell Distribution Width 13.9 % (11.5-14.5); White Blood Count 3.5 K/mm3 (4.5-10.0)
[2023-08-12 09:02] LABS: Alanine Aminotransferase 28 U/L (6-35); Albumin Level 4.1 g/dL (3.5-5.1); Alkaline Phosphatase 73 U/L (38-126); Anion Gap 5 mmol/L (8-16); Aspartate Amino Transferase 30 U/L (14-36); Bilirubin,Total 0.5 mg/dL (0.2-1.3); Blood Urea Nitrogen 20 mg/dL (7-17); Calcium 9.3 mg/dL (8.4-10.2); Carbon Dioxide 30 mmol/L (22-30); Chloride 107 mmol/L (98-107); Estimated Glomerular Filt Rate > 60; Glucose 92 mg/dL (65-110); Sodium 142 mmol/L (137-145)
[2023-08-12 09:29] LABS: Anisocytosis 1+ (NORMAL); Macrocytosis 1+ (NORMAL); Platelet Estimate Adequate (Adequate); Schistocytes None Seen (NORMAL)
[2023-08-12 09:33] LABS: Iron 84 ug/dL (37-170)
[2023-08-12 09:39] LABS: Percent Iron Saturation 25 % (20-50)
[2023-08-12 09:49] LABS: Vitamin D 25 Hydroxy 41.9 ng/mL
== END 2023-08-12 08:11 | disposition home or self-care (01) ==
PROVIDERS: PCP Family Medicine; Visit Provider Family Medicine
DX: I50.9 Heart failure, unspecified (principal); E55.9 Vitamin D deficiency, unspecified; D50.8 Other iron deficiency anemias; I48.0 Paroxysmal atrial fibrillation
CPT/HCPCS: 36415; 80048; 80076; 82306; 82533; 82607; 83540; 83550; 85025

== ENCOUNTER 2023-08-21 14:06 | Outpatient (CLI) | payer MEDICARE, MEDICAID, SELFPAY ==
--- NOTE | ~2023-08-21 | CT_ITS ---
EXAMINATION: CT pelvis wo con DATE: 08/21/2023 14:25 INDICATION: Low back pain, unspecified. TECHNIQUE: Computed tomography (CT) of the pelvis was performed without intravenous contrast. Automat ed exposure control and iterative reconstruction technique were employed. The dose-length product was 649.44 mGy-cm. COMPARISON: Pelvis CT 06/24/2023 FINDINGS: There is a filter in the inferior vena cava. There are no dilated loops of bowel. The appen nelson is normal. There are no pathologically enlarged lymph nodes. There is no free intraperitoneal flu id. There is moderate osteoarthritis of the sacroiliac joints. There are changes of arthrodesis of ri ght sacroiliac joint with 2 screws. There are changes of anterior and posterior fusion procedures fro m L2 to S1. At L2, there is heterotopic ossification in the right central and subarticular zones. The re is mild lumbar spondylosis. There is a subcutaneous electronic device in right flank. IMPRESSION: 1. Anterior and posterior fusion procedures from L2 to S1. 2. Mild lumbar spondylosis. 3. Arthrodesis of right sacroiliac joint. Reviewed, dictated and finalized at location E. EMARK ATTORNEY
== END 2023-08-21 14:07 | disposition home or self-care (01) ==
LOC: ANHIMG 14:07
PROVIDERS: PCP Family Medicine; Visit Provider Neurological Surgery
DX: M46.1 Sacroiliitis, not elsewhere classified (principal); M54.50 Low back pain, unspecified; Z98.1 Arthrodesis status; M43.06 Spondylolysis, lumbar region; Z96.641 Presence of right artificial hip joint
CPT/HCPCS: 72192

== ENCOUNTER 2023-09-10 10:10 | Outpatient (CLI) | payer MEDICARE, MEDICAID, SELFPAY ==
--- NOTE | 2023-09-11 11:47 | WPDNEUROLOGY ---
Neurology EEG Report General Information Date of Study: 09/10/23 TEST routine EEG DIAGNOSIS Episodes of confusion CONDITION OF RECORDING Awake, drowsy EEG NUMBER [id number] CLINICAL HISTORY Patient reports she has episodes where she loses consciousness and can be unresponsive from anywhere from 10 hours to three days. She has a pacemaker. EEG DESCRIPTION During the awake state with eyes closed the background consists of 8-9 Hz posterior dominant rhythm which attenuates appropriately with eye opening. The recording is continuous. There is a well developed anterior-posterior gradient. No significant asymmetries of background activities are noted. With drowsiness there is waxing and waning of the dominant rhythm with eventual replacement by a mixture of beta, alpha, and theta activity. Patient did not enter stage II sleep. There are no epileptiform discharges or seizures during this recording. Photic stimulation did not elicit any abnormal photoparoxysmal response. IMPRESSION This is a normal routine EEG recorded in awake and drowsy states. There are no electrographic seizures identified, nor are there any epileptiform discharges. Please note that a normal EEG cannot exclude a seizure disorder. Clinical correlation is recommended.
== END 2023-09-10 10:11 | disposition home or self-care (01) ==
LOC: ANHNEURO 10:12
PROVIDERS: PCP Family Medicine; Visit Provider Student in an Organized Health Care Education/Training Program
DX: R56.9 Unspecified convulsions (principal)
CPT/HCPCS: 95816

== ENCOUNTER 2023-09-29 13:34 | Outpatient (CLI) | payer MEDICARE, MEDICAID, SELFPAY ==
--- NOTE | ~2023-09-29 | US_ITS ---
EXAMINATION: US pelvic complete w TV DATE: 09/29/2023 15:47 INDICATION: N95.0 - Postmenopausal bleeding TECHNIQUE: Multiple transabdominal and endovaginal sonographic images of the pelvis were obtained. COMPARISON: 11/24/2009; CT pelvis 08/21/2023; CT abdomen pelvis 08/20/2022. FINDINGS: Uterus: 6.3 x 3.0 x 4.3 cm. Retroverted uterus with heterogeneous parenchyma. Endometrial complex is poorly visualized. Right Ovary: Not visualized. Left Ovary: Not visualized. There is no free fluid in the pelvis. IMPRESSION: Poorly defined uterine parenchyma and endometrial complex, may be secondary to postoperative change a nd/or adenomyosis. Bilateral ovaries not visualized. Reviewed, dictated and finalized at location K. IMPRESSION: Poorly defined uterine parenchyma and endometrial complex, may be secondary to postoperative change and/or adenomyosis. Bilateral ovaries not visualized.
== END 2023-09-29 13:35 | disposition home or self-care (01) ==
LOC: ANHIMG 13:35
PROVIDERS: PCP Family Medicine; Visit Provider Student in an Organized Health Care Education/Training Program
DX: N95.0 Postmenopausal bleeding (principal)
CPT/HCPCS: 76830; 76856

== ENCOUNTER 2023-10-14 10:39 | Emergency (ER) | payer MEDICARE, MEDICAID, SELFPAY ==
--- NOTE | ~2023-10-14 | XR_ITS ---
EXAMINATION: XR chest 1V portable DATE: 10/14/2023 11:58 INDICATION: Shortness of breath. Lightheadedness. TECHNIQUE: A single frontal view of the chest was obtained. COMPARISON: Chest view 06/20/2023 FINDINGS: There is no pneumonia, pleural effusion, or pneumothorax. The heart size is normal. There i s a left chest wall pacer with leads in the right atrium and right ventricle. Electrodes overlie thor acic spine. IMPRESSION: 1. No acute cardiopulmonary disease. Reviewed, dictated and finalized at location A.
[2023-10-14 10:43] VITALS: BP 138/98; PULSE 77; RESP 20; TEMP 36.7; O2SAT 100
--- NOTE | 2023-10-14 10:49 | ECG_ITS ---
Measurements Intervals [place] Rate: 72 P: 24 AK: 246 QRS: -72 QRSD: 156 T: 76 QT: 451 QTc: 497 Interpretive Statements ATRIAL SENSE- ELECTRONIC VENTRICULAR PACEMAKER NO FURTHER INTERPRETATION IS POSSIBLE ATYPICAL ECG COMPARED TO ECG 06/20/2023 01:47:33 NO SIGNIFICANT CHANGES Electronically Signed On 10-14-2023 11:03:39 CDT by Rangel Moe D.O.
[2023-10-14 11:02] LABS: Basophils Percent Auto 0.2 % (0.2-1.2); Eosinophils Absolute Auto 0.1 K/mm3 (0-0.3); Eosinophils Percent Auto 1.3 % (0-4.4); Hematocrit 38.6 % (37.0-47.0); Hemoglobin 13.4 g/dL (12.0-15.0); Immature Granulocyte Absolute 0.01 K/mm3 (0.00-0.031); Immature Granulocyte Percent A 0.2 % (0-0.5); Lymphocytes Absolute Auto 1.09 K/mm3 (0.9-3.2); Lymphocytes Percent Auto 24.4 % (18.3-44.2); Mean Corpuscular HGB Conc 34.7 g/dl (32-36); Mean Corpuscular Hemoglobin 35.8 pg (26-34); Mean Corpuscular Volume 103.2 fl (80-100); Mean Platelet Volume 9.2 fl (7.4-10.4); Monocytes Absolute Auto 0.3 K/mm3 (0.1-0.6); Monocytes Percent Auto 6.5 % (2.6-8.5); Neutrophils Percent Auto 67.4 % (45.5-73.1); Platelet Count Result 201 k/mm3 (150-375); Red Blood Count 3.74 M/mm3 (4.2-5.4); Red Cell Distribution Width 13.1 % (11.5-14.5); White Blood Count 4.5 K/mm3 (4.5-10.0)
--- NOTE | 2023-10-14 11:07 | PC.NURSE ---
Pt states she is unable to urinate and is requesting a straight cath
[2023-10-14 11:11] LABS: Alanine Aminotransferase 28 U/L (6-35); Albumin Level 3.9 g/dL (3.5-5.1); Alkaline Phosphatase 64 U/L (38-126); Anion Gap 7 mmol/L (4-12); Aspartate Amino Transferase 35 U/L (14-36); Bilirubin,Total 0.8 mg/dL (0.2-1.3); Blood Urea Nitrogen 19 mg/dL (7-17); Calcium 9.2 mg/dL (8.4-10.2); Carbon Dioxide 26 mmol/L (22-30); Chloride 104 mmol/L (98-107); Estimated CRCL calculation 76 ml/min; Estimated Glomerular Filt Rate > 60; Glucose 96 mg/dL (65-110); Lipase 118 U/L (23-300); Potassium 3.1 mmol/L (3.4-5.0); Sodium 137 mmol/L (137-145)
--- NOTE | 2023-10-14 11:21 | ED.NAVMDI ---
HPI - Nausea/Vomiting/Diarrhea General Chief complaint: Nausea/Vomiting/Diarrhea Stated complaint: N/V Time Seen by Provider: 10/14/23 11:11 History of Present Illness HPI Narrative: Pt presents with numerous episodes of vomiting and diarrhea for 4 days. Pt denies fever or blood in stool. Pt has also been having palpitations and has some mild SOB on exertion but no CP. Related Data Home Medications Medication Instructions Recorded Confirmed metoprolol succinate 50 mg 50 mg PO QAM 06/19/22 10/05/23 tablet,extended release 24 hr golimumab 50 mg/0.5 mL 50 mg subcut MONTHLY 03/26/23 10/05/23 subcutaneous pen injector (Simponi) methotrexate sodium 2.5 mg tablet 2.5 mg PO WEEKLY 06/20/23 10/05/23 aspirin 81 mg tablet,delayed 81 mg PO DAILY 07/01/23 10/05/23 release mupirocin 2 % topical ointment 1 applic topical BID 07/01/23 10/05/23 hydroxyzine HCl 25 mg tablet 12.5 mg PO Q8H itching 09/09/23 10/05/23 prednisone 10 mg tablet 10 mg PO 10/05/23 10/05/23 Allergies Allergy/AdvReac Type Severity Reaction Status Date / Time meclizine Allergy Severe Rash Verified 10/05/23 08:34 carbamazepine [From Tegretol] Allergy Intermediate Blister Verified 10/05/23 08:34 Cephalosporins Allergy Mild RASH Verified 10/05/23 08:34 clarithromycin Allergy Mild RASH Verified 10/05/23 08:34 imipramine Allergy Mild RASH Verified 10/05/23 08:34 Penicillins Allergy Mild HIVES Verified 10/05/23 08:34 cefuroxime [From Ceftin] Allergy Hives Verified 10/05/23 08:34 etanercept [From Enbrel] Allergy Redness of Verified 10/05/23 08:34 Skin hydromorphone [From Dilaudid] Allergy Hives Verified 10/05/23 08:34 oxycodone [From Percocet] Allergy Hives Verified 10/05/23 08:34 prochlorperazine Allergy Swelling Verified 10/05/23 08:34 [From Compazine] of Lip/Tongue/Throat propoxyphene [From Darvon] Allergy Hives Verified 10/05/23 08:34 propranolol [From Inderal [place]] Allergy Rash Verified 10/05/23 08:34 alcohol AdvReac Severe Blister Verified 10/05/23 08:34 [From Mastisol Adhesive] chloroxylenol [From [place] 7] AdvReac Severe rash Verified 10/05/23 08:34 gum mastic AdvReac Severe Blister Verified 10/05/23 08:34 [From Mastisol Adhesive] methyl salicylate AdvReac Severe Blister Verified 10/05/23 08:34 [From Mastisol Adhesive] storax AdvReac Severe Blister Verified 10/05/23 08:34 [From Mastisol Adhesive] tizanidine AdvReac Intermediate Hallucinati Verified 10/05/23 08:34 ng codeine AdvReac Unknown Vomiting Verified 10/05/23 08:34 diphenhydramine AdvReac Vomiting Verified 10/05/23 08:34 [From Benadryl] hydrocodone [From Vicodin] AdvReac Vomiting Verified 10/05/23 08:34 Dermabond Allergy Intermediate Itching Uncoded 10/05/23 08:34 Review of Systems Review of Systems: All systems reviewed & are unremarkable except as noted in HPI and below PMFSH Past Medical History Medical History A-fib Abdominal bloating Abdominal lump Abnormality of heart beat Abrasion of toe Acute bacterial sinusitis Acute cervical myofascial strain Allergic dermatitis Allergic reaction to allergy skin test Anemia, unspecified Anxiety Anxiety about health Ataxia Atopic dermatitis Atypical face pain Bilateral knee pain BMI 29.0-29.9,adult Bradycardia Cervical pain Confusion D-dimer, elevated Degenerative joint disease of cervical and lumbar spine Depression Diarrhea Dizziness DVT (deep venous thrombosis) Ear pain Essential (primary) hypertension Family history of beta thalassemia Fibromyalgia Flatulence Foraminal stenosis of lumbar region Foreign body in ear Foreign body of toe Fracture of second toe, left, closed Groin hematoma Groin pain Headache History of deep vein thrombosis Hypoglycemia Hyponatremia Inappropriate sinus tachycardia Left ear pain Lesion of skin of nose Lightheadedness Lipid disorder Lumbar pain Lumbar stenosis MCL sprain of left knee Migraine Mixed
[2023-10-14] MEDS: KCL 20 MEQ/SW 100 ML 100 ML 50 MEQ IVPB (11:32)
[2023-10-14] MEDS: SODIUM CHLORIDE 0.9% IV 500 ML 250 ML (11:35)
[2023-10-14 11:44] VITALS: BP 107/75; PULSE 72; RESP 14; O2SAT 100
[2023-10-14 11:57] LABS: Bacteria Urine None Seen /hpf; Need Manual Microscopic Reviewed; Squamous Epithelial Cell Urine Occasional /hpf (Few); WBC Urine 0-5 /hpf (0-3)
[2023-10-14 12:06] LABS: Appearance Urine Sl Cloudy (Clear); Color Urine Yellow (Yellow); Specific Grav Ur 1.025 (1.001-1.035); pH Urine 5.5 (5.0-9.0)
[2023-10-14 12:07] LABS: Add Urine Microscopic? YES; Bilirubin Urine 1+ (Negative); Blood Urine 1+ (Negative); Glucose Urine UA Negative (Negative); Ketones Urine Trace mg/dL (Negative); Leukocyte Esterase Ur Negative LEU/UL (Negative); Nitrate Urine Negative (Negative); Protein Urine 1+ mg/dL (Negative); Urobilinogen Urine 0.2 mg/dL (<2.0)
[2023-10-14 12:11] LABS: NT Pro B Type Natriuretic Pept 48 pg/mL (19.9-100); Troponin I < 0.012 ng/mL (0.000-0.034)
[2023-10-14 13:06] VITALS: BP 112/76; PULSE 77; RESP 18; O2SAT 100
[2023-10-14 14:14] VITALS: BP 119/87; PULSE 70; RESP 18; O2SAT 100
== END 2023-10-14 14:35 | disposition home or self-care (01) ==
PROVIDERS: Emergency Provider Emergency Medicine; PCP Family Medicine
DX: K52.9 Noninfective gastroenteritis and colitis, unspecified (principal); E87.6 Hypokalemia; R06.02 Shortness of breath; I48.0 Paroxysmal atrial fibrillation; I10 Essential (primary) hypertension; E78.2 Mixed hyperlipidemia; G25.81 Restless legs syndrome; M79.7 Fibromyalgia; M06.9 Rheumatoid arthritis, unspecified; M47.812 Spondylosis without myelopathy or radiculopathy, cervical region; M47.816 Spondylosis without myelopathy or radiculopathy, lumbar region; Z95.0 Presence of cardiac pacemaker; Z96.82 Presence of neurostimulator; Z86.2 Personal history of diseases of the blood and blood-forming organs and certain disorders involving the immune mechanism; Z86.718 Personal history of other venous thrombosis and embolism; Z79.82 Long term (current) use of aspirin; Z79.84 Long term (current) use of oral hypoglycemic drugs
CPT/HCPCS: 36415; 71045; 80053; 81001; 83690; 83880; 84484; 85025; 93005; 96365; 96366; 99284; J3480; J7040

== ENCOUNTER 2023-10-22 12:12 | Outpatient (CLI) | payer MEDICARE, MEDICAID, SELFPAY ==
[2023-10-22 13:19] LABS: Hemoglobin 12.3 g/dL (12.0-15.0); Mean Corpuscular HGB Conc 33.2 g/dl (32-36); Mean Corpuscular Hemoglobin 35.1 pg (26-34); Mean Corpuscular Volume 105.7 fl (80-100); Mean Platelet Volume 9.2 fl (7.4-10.4); Platelet Count Result 247 k/mm3 (150-375); Red Cell Distribution Width 13.1 % (11.5-14.5); White Blood Count 5.4 K/mm3 (4.5-10.0)
[2023-10-22 13:32] LABS: Blood Urea Nitrogen 14 mg/dL (7-17); Calcium 9.2 mg/dL (8.4-10.2); Carbon Dioxide 31 mmol/L (22-30); Estimated Glomerular Filt Rate > 60; Glucose 85 mg/dL (65-110); Potassium 3.9 mmol/L (3.4-5.0); Sodium 139 mmol/L (137-145)
[2023-10-22 13:35] LABS: Anion Gap 2 mmol/L (4-12); Chloride 106 mmol/L (98-107)
== END 2023-10-22 12:13 | disposition home or self-care (01) ==
PROVIDERS: PCP Family Medicine; Visit Provider Physician Assistant
DX: E87.6 Hypokalemia (principal); R04.0 Epistaxis
CPT/HCPCS: 36415; 80048; 85027

== ENCOUNTER 2023-11-09 06:33 | Outpatient (CLI) | payer MEDICARE, MEDICAID, SELFPAY ==
--- NOTE | ~2023-11-09 | CT_ITS ---
EXAMINATION: CT abdomen wo/w con DATE: 11/09/2023 07:23 INDICATION: Left lower quadrant pain TECHNIQUE: Computed tomography (CT) of the abdomen and pelvis was performed without and with 100 cc i ntravenous contrast. The dose-length product was 1135.22 mGy-cm. Automated exposure control and itera tive reconstruction technique were employed. COMPARISON: CT dated 08/20/2022. FINDINGS: There is dependent atelectasis. Heart size normal. No significant pleural or pericardial ef fusion. There is atherosclerosis. No renal stones. No hydronephrosis. Nonobstructive bowel pattern. T here is fatty infiltration of the liver. The spleen, pancreas, adrenal glands there are bilateral arlette al cysts. There is an IVC filter present. There are fusion changes of the lumbar spine. IMPRESSION: 1. No acute abdominal abnormality. Reviewed, dictated and finalized at location B.
== END 2023-11-09 06:34 | disposition home or self-care (01) ==
PROVIDERS: PCP Family Medicine; Visit Provider Physician Assistant
DX: N28.9 Disorder of kidney and ureter, unspecified (principal)
CPT/HCPCS: 74170; Q9967

== ENCOUNTER 2023-12-11 12:58 | Outpatient (CLI) | payer MEDICARE, MEDICAID, SELFPAY ==
--- NOTE | ~2023-12-11 | XR_ITS ---
Right Knee Technique: AP, lateral, and oblique views were obtained. Clinical History: Injury Findings: No fracture or dislocation is seen. Osseous alignment is anatomic. Joint spaces are preserv ed without degenerative or erosive change. Soft tissues are unremarkable. No joint effusion is seen. Impression: Unremarkable right knee radiographs. Reviewed, dictated and finalized at [facility]. Impression: Unremarkable right knee radiographs.
--- NOTE | ~2023-12-11 | XR_ITS ---
XR hand RT 2V DATE: 12/11/2023 13:23 INDICATION: Fall and right hand 2-3 weeks ago. Right hand pain. TECHNIQUE: 3 views COMPARISON: September 01, 2022 right index finger July 06, 2020 right hand FINDINGS: Again noted is mild polyarticular osteoarthritis including triscaphe, first carpometacarpal and some interphalangeal joints. No erosive change. No chondrocalcinosis. No fracture, dislocation, periosteal reaction or bone destruction is detected. IMPRESSION: Mild polyarticular osteoarthritis No recent fracture or dislocation is detected Reviewed, dictated and finalized at location B.
== END 2023-12-11 12:59 | disposition home or self-care (01) ==
LOC: ANHIMG 13:04
PROVIDERS: PCP Family Medicine; Visit Provider Nurse Practitioner Family
DX: M19.041 Primary osteoarthritis, right hand (principal); S89.90XA Unspecified injury of unspecified lower leg, initial encounter; W19.XXXA Unspecified fall, initial encounter
CPT/HCPCS: 73120; 73564

== ENCOUNTER 2024-01-27 15:46 | Outpatient (CLI) | payer MEDICARE, MEDICAID, SELFPAY | END 2024-01-27 15:47 | disposition home or self-care (01) | PROVIDERS: PCP Family Medicine; Visit Provider Student in an Organized Health Care Education/Training Program | DX: R10.2 Pelvic and perineal pain (principal) | CPT/HCPCS: 87086 ==

== ENCOUNTER 2024-02-25 10:26 | Emergency (ER) | payer MEDICARE, MEDICAID, SELFPAY ==
--- NOTE | 2024-02-25 10:31 | ED.URI ---
HPI - URI/Sore Throat General Chief Complaint: Upper Respiratory Infection Stated Complaint: Cold symptoms Time Seen by Provider: 02/25/24 10:36 Source: patient, RN notes reviewed and old records reviewed Mode of arrival: ambulatory Limitations: no limitations History of Present Illness HPI Narrative: 58-year-old female presents to the [facility] with cold symptoms that started Thursday. States that she has used her inhalers 3 times since Thursday. No other treatment prior to arrival. Has had some intermittent chest tightness, shortness of breath with a dry cough. Patient denies any other symptoms. Patient denies any fevers. Patient recent history cardiac surgery in January. Onset (ago): day(s) (3) Treatments prior to arrival: none Related Data Home Medications Medication Instructions Recorded Confirmed golimumab 50 mg/0.5 mL 50 mg subcut MONTHLY 03/26/23 02/16/24 subcutaneous pen injector (Simponi) methotrexate sodium 2.5 mg tablet 2.5 mg PO WEEKLY 06/20/23 02/16/24 aspirin 81 mg tablet,delayed 81 mg PO DAILY 07/01/23 02/16/24 release mupirocin 2 % topical ointment 1 applic topical BID 07/01/23 02/16/24 metoprolol tartrate 50 mg tablet 50 mg PO BID 10/22/23 02/16/24 gabapentin 100 mg capsule 100 mg PO 01/27/24 02/16/24 pramipexole 1 mg tablet 1 mg PO 01/27/24 02/16/24 clopidogrel 75 mg tablet (Plavix) 75 mg PO DAILY 02/16/24 02/16/24 Allergies Allergy/AdvReac Type Severity Reaction Status Date / Time meclizine Allergy Severe Rash Verified 02/25/24 12:55 carbamazepine [From Tegretol] Allergy Intermediate Blister Verified 02/25/24 12:55 Cephalosporins Allergy Mild RASH Verified 02/25/24 12:55 clarithromycin Allergy Mild RASH Verified 02/25/24 12:55 imipramine Allergy Mild RASH Verified 02/25/24 12:55 Penicillins Allergy Mild HIVES Verified 02/25/24 12:55 cefuroxime [From Ceftin] Allergy Hives Verified 02/25/24 12:55 etanercept [From Enbrel] Allergy Redness of Verified 02/25/24 12:55 Skin hydromorphone [From Dilaudid] Allergy Hives Verified 02/25/24 12:55 oxycodone [From Percocet] Allergy Hives Verified 02/25/24 12:55 prochlorperazine Allergy Swelling Verified 02/25/24 12:55 [From Compazine] of Lip/Tongue/Throat propoxyphene [From Darvon] Allergy Hives Verified 02/25/24 12:55 propranolol [From Inderal LA] Allergy Rash Verified 02/25/24 12:55 alcohol AdvReac Severe Blister Verified 02/25/24 12:55 [From Mastisol Adhesive] chloroxylenol [From [place] 7] AdvReac Severe rash Verified 02/25/24 12:55 gum mastic AdvReac Severe Blister Verified 02/25/24 12:55 [From Mastisol Adhesive] methyl salicylate AdvReac Severe Blister Verified 02/25/24 12:55 [From Mastisol Adhesive] storax AdvReac Severe Blister Verified 02/25/24 12:55 [From Mastisol Adhesive] tizanidine AdvReac Intermediate Hallucinati Verified 02/25/24 12:55 ng codeine AdvReac Unknown Vomiting Verified 02/25/24 12:55 diphenhydramine AdvReac Vomiting Verified 02/25/24 12:55 [From Benadryl] hydrocodone [From Vicodin] AdvReac Vomiting Verified 02/25/24 12:55 Dermabond Allergy Intermediate Itching Uncoded 02/25/24 12:55 Review of Systems Review of Systems: All systems reviewed & are unremarkable except as noted in HPI and below Constitutional: Constitutional: Reports no additional constitutional complaints Eyes: Eyes: Reports no additional eye complaints ENT: Reports as per HPI Cardiovascular: Cardiovascular: Reports no additional cardiovascular complaints, Denies chest pain and Denies dyspnea Respiratory: Respiratory: Reports as per HPI, Denies chest congestion, Reports cough and Reports dyspnea Gastrointestinal: Gastrointestinal: Reports no additional gastrointestinal complaints, Denies abdominal pain, Denies nausea and Denies vomiting Musculoskeletal: Musculoskeletal: Reports no additional musculoskeletal complaints Integumentary/Breasts: Skin/Breast: Reports system reviewed and no additional complaints, exc
[2024-02-25 10:40] VITALS: BP 86/59; PULSE 70; RESP 18; TEMP 35.9; O2SAT 100
[2024-02-25 10:41] VITALS: BP 86/59; PULSE 70; RESP 18; TEMP 35.9; O2SAT 100
[2024-02-25 10:54] VITALS: BP 90/72
--- NOTE | 2024-02-25 11:04 | PC.NURSE ---
1054- Pt informed of +COVID results. Educated on importance of masking to decrease spread of virus. Pt stated, she would not be wearing a mask. Declining CXR
[2024-02-25 11:11] LABS: EDINFLUASCREEN Negative; EDINFLUBSCREEN Negative
== END 2024-02-25 11:12 | disposition home or self-care (01) ==
PROVIDERS: Emergency Provider Nurse Practitioner; PCP Family Medicine
DX: U07.1 COVID-19 (principal); I10 Essential (primary) hypertension; M79.7 Fibromyalgia; E78.2 Mixed hyperlipidemia; I48.0 Paroxysmal atrial fibrillation; G90.50 Complex regional pain syndrome I, unspecified; Z86.73 Personal history of transient ischemic attack (TIA), and cerebral infarction without residual deficits; Z86.718 Personal history of other venous thrombosis and embolism; Z79.01 Long term (current) use of anticoagulants
CPT/HCPCS: 87426; 87804; 99213; G0463

== ENCOUNTER 2024-02-25 11:51 | Emergency (ER) | payer MEDICARE, MEDICAID, SELFPAY ==
--- NOTE | ~2024-02-25 | XR_ITS ---
EXAMINATION: XR chest 2V DATE: 02/25/2024 12:46 INDICATION: Shortness of breath. TECHNIQUE: Frontal and lateral views of the chest were obtained. COMPARISON: Chest single view 10/14/2023 FINDINGS: There is no pneumonia, pleural effusion, or pneumothorax. The heart size is normal. There i s a left chest wall pacer with leads in the right atrium and right ventricle. There is an interatrial closure device. Epidural electrodes are noted. There are changes of anterior and posterior fusion pr ocedures in lumbar spine. IMPRESSION: 1. No acute cardiopulmonary disease. Reviewed, dictated and finalized at location A.
--- NOTE | ~2024-02-25 | CT_ITS ---
EXAMINATION: CTA chest PE protocol DATE: 02/25/2024 13:17 INDICATION: Shortness of breath. TECHNIQUE: Computed tomography angiography (CTA) of the chest was performed with 100 mL Omnipaque-350 intravenous contrast timed to evaluate the pulmonary arteries. Coronal maximum intensity projection 3D-reconstructions were created by the technologist. Automated exposure control and iterative reconst ruction technique were employed. The dose-length product was 550.66 mGy-cm. COMPARISON: Chest CT 02/17/2022 FINDINGS: There is mild scarring in paraspinal right lower lobe. There is minimal atelectasis bilater ally. No pleural effusion. The heart size is normal. No pericardial effusion. There is a closure silvina ce in left atrial appendage. There is a left chest wall pacer with leads in the right atrium and righ t ventricle. There is no pulmonary embolus. Epidural electrodes are noted. There are bridging endplat e osteophytes at multiple levels in the spine, consistent with diffuse idiopathic skeletal hyperostos is (DISH). There is mild chronic anterior wedging of multiple thoracic vertebral bodies. IMPRESSION: 1. No pulmonary embolus. Reviewed, dictated and finalized at location A. IMPRESSION: 1. No pulmonary embolus.
[2024-02-25 11:57] VITALS: BP 95/72; PULSE 70; RESP 15; TEMP 36.6; O2SAT 100
--- NOTE | 2024-02-25 12:12 | ECG_ITS ---
Test Date: 2024-02-25 12:14:36 Measurements Intervals [place] Rate: 70 P: 178 MN: 114 QRS: -74 QRSD: 154 T: 67 QT: 466 QTc: 503 Interpretive Statements ELECTRONIC ATRIAL PACEMAKER ELECTRONIC VENTRICULAR PACEMAKER ABNORMAL RHYTHM ECG No previous ECG available for comparison Electronically Signed On 02-26-2024 13:32:44 CDT by Trey Velazquez M.D.
[2024-02-25 12:13] VITALS: PULSE 70
--- NOTE | 2024-02-25 12:33 | ED.SOB ---
HPI - SOB/Dyspnea General Chief Complaint: Shortness of Breath/Dyspnea Stated Complaint: COVID, shortness of breath Time Seen by Provider: 02/25/24 11:59 History of Present Illness HPI Narrative: This is a 58-year-old female with significant past medical history including atrial fibrillation, SVT/jayant-tachy syndrome status post multiple ablation and pacemaker placement. Patient was recently diagnosed with COVID today at urgent care. She has been having subjective dyspnea for last few days associated with breathlessness sensation. She denies any chest pain, nausea, vomiting but is endorsing a sore throat and a cough that is nonproductive. She has a history of DVT and has an IVC filter placed but no history of PE. She is not presently on any anticoagulation. She has had multiple procedures recently in the end of December including catheterizations, pacemaker lead adjustment, implanted atrial device for her AFib. She is presently not on any Coumadin but is taking aspirin and Plavix. Denies any fevers at home. Related Data Home Medications Medication Instructions Recorded Confirmed golimumab 50 mg/0.5 mL 50 mg subcut MONTHLY 03/26/23 02/16/24 subcutaneous pen injector (Simponi) methotrexate sodium 2.5 mg tablet 2.5 mg PO WEEKLY 06/20/23 02/16/24 aspirin 81 mg tablet,delayed 81 mg PO DAILY 07/01/23 02/16/24 release mupirocin 2 % topical ointment 1 applic topical BID 07/01/23 02/16/24 metoprolol tartrate 50 mg tablet 50 mg PO BID 10/22/23 02/16/24 gabapentin 100 mg capsule 100 mg PO 01/27/24 02/16/24 pramipexole 1 mg tablet 1 mg PO 01/27/24 02/16/24 clopidogrel 75 mg tablet (Plavix) 75 mg PO DAILY 02/16/24 02/16/24 Allergies Allergy/AdvReac Type Severity Reaction Status Date / Time meclizine Allergy Severe Rash Verified 02/25/24 12:55 carbamazepine [From Tegretol] Allergy Intermediate Blister Verified 02/25/24 12:55 Cephalosporins Allergy Mild RASH Verified 02/25/24 12:55 clarithromycin Allergy Mild RASH Verified 02/25/24 12:55 imipramine Allergy Mild RASH Verified 02/25/24 12:55 Penicillins Allergy Mild HIVES Verified 02/25/24 12:55 cefuroxime [From Ceftin] Allergy Hives Verified 02/25/24 12:55 etanercept [From Enbrel] Allergy Redness of Verified 02/25/24 12:55 Skin hydromorphone [From Dilaudid] Allergy Hives Verified 02/25/24 12:55 oxycodone [From Percocet] Allergy Hives Verified 02/25/24 12:55 prochlorperazine Allergy Swelling Verified 02/25/24 12:55 [From Compazine] of Lip/Tongue/Throat propoxyphene [From Darvon] Allergy Hives Verified 02/25/24 12:55 propranolol [From Inderal LA] Allergy Rash Verified 02/25/24 12:55 alcohol AdvReac Severe Blister Verified 02/25/24 12:55 [From Mastisol Adhesive] chloroxylenol [From [place] 7] AdvReac Severe rash Verified 02/25/24 12:55 gum mastic AdvReac Severe Blister Verified 02/25/24 12:55 [From Mastisol Adhesive] methyl salicylate AdvReac Severe Blister Verified 02/25/24 12:55 [From Mastisol Adhesive] storax AdvReac Severe Blister Verified 02/25/24 12:55 [From Mastisol Adhesive] tizanidine AdvReac Intermediate Hallucinati Verified 02/25/24 12:55 ng codeine AdvReac Unknown Vomiting Verified 02/25/24 12:55 diphenhydramine AdvReac Vomiting Verified 02/25/24 12:55 [From Benadryl] hydrocodone [From Vicodin] AdvReac Vomiting Verified 02/25/24 12:55 Dermabond Allergy Intermediate Itching Uncoded 02/25/24 12:55 Review of Systems Review of Systems: As [facility] Past Medical History Medical History A-fib Abdominal bloating Abdominal lump Abnormality of heart beat Abrasion of toe Acute bacterial sinusitis Acute cervical myofascial strain Allergic dermatitis Allergic reaction to allergy skin test Anemia, unspecified Anxiety Anxiety about health Ataxia Atopic dermatitis Atypical face pain Bilateral knee pain BMI 29.0-29.9,adult Bradycardia Cervical pain Conf
[2024-02-25 12:50] LABS: Basophils Percent Auto 0.6 % (0.2-1.2); Eosinophils Absolute Auto 0.2 K/mm3 (0-0.3); Eosinophils Percent Auto 3.1 % (0-4.4); Hematocrit 36.4 % (37.0-47.0); Hemoglobin 12.3 g/dL (12.0-15.0); Immature Granulocyte Absolute 0.01 K/mm3 (0.00-0.031); Immature Granulocyte Percent A 0.2 % (0-0.5); Lymphocytes Absolute Auto 1.83 K/mm3 (0.9-3.2); Lymphocytes Percent Auto 34.9 % (18.3-44.2); Mean Corpuscular HGB Conc 33.8 g/dl (32-36); Mean Corpuscular Hemoglobin 35.5 pg (26-34); Mean Corpuscular Volume 105.2 fl (80-100); Mean Platelet Volume 9.2 fl (7.4-10.4); Monocytes Absolute Auto 0.4 K/mm3 (0.1-0.6); Monocytes Percent Auto 8.4 % (2.6-8.5); Neutrophils Absolute Auto 2.8 K/mm3 (1.3-6.7); Neutrophils Percent Auto 52.8 % (45.5-73.1); Platelet Count Result 214 k/mm3 (150-375); Red Blood Count 3.46 M/mm3 (4.2-5.4); Red Cell Distribution Width 13.7 % (11.5-14.5); White Blood Count 5.2 K/mm3 (4.5-10.0)
[2024-02-25] MEDS: dexAMETHasone SOD PHOS INJ 10 MG/ML 1 ML VIAL IV PUSH (12:55)
[2024-02-25 12:56] VITALS: BP 97/66; PULSE 70; RESP 17; O2SAT 100
[2024-02-25] MEDS: SODIUM CHLORIDE 0.9% IV 1,000 ML 999 ML IV CONT (12:56)
[2024-02-25 12:59] LABS: Alanine Aminotransferase 24 U/L (6-35); Albumin Level 4.4 g/dL (3.5-5.1); Alkaline Phosphatase 77 U/L (38-126); Anion Gap 12 mmol/L (4-12); Aspartate Amino Transferase 33 U/L (14-36); Bilirubin,Total 0.7 mg/dL (0.2-1.3); Blood Urea Nitrogen 22 mg/dL (7-17); Calcium 9.3 mg/dL (8.4-10.2); Carbon Dioxide 24 mmol/L (22-30); Chloride 106 mmol/L (98-107); Estimated CRCL calculation 87 ml/min; Estimated Glomerular Filt Rate > 60; Glucose 74 mg/dL (65-110); Potassium 3.9 mmol/L (3.4-5.0); Sodium 142 mmol/L (137-145)
[2024-02-25 14:01] LABS: Magnesium 2.3 mg/dL (1.6-2.3)
[2024-02-25 14:08] VITALS: BP 101/65; PULSE 70; RESP 14; O2SAT 100
[2024-02-25 14:14] LABS: Troponin I < 0.012 ng/mL (0.000-0.034)
[2024-02-25 15:07] VITALS: O2SAT 99
== END 2024-02-25 15:31 | disposition home or self-care (01) ==
PROVIDERS: Emergency Provider Student in an Organized Health Care Education/Training Program; PCP Family Medicine
DX: U07.1 COVID-19 (principal); I48.0 Paroxysmal atrial fibrillation; I10 Essential (primary) hypertension; E78.2 Mixed hyperlipidemia; G25.81 Restless legs syndrome; M79.7 Fibromyalgia; M06.09 Rheumatoid arthritis without rheumatoid factor, multiple sites; F41.9 Anxiety disorder, unspecified; F32.A Depression, unspecified; Z95.0 Presence of cardiac pacemaker; Z96.82 Presence of neurostimulator; Z87.01 Personal history of pneumonia (recurrent); Z86.718 Personal history of other venous thrombosis and embolism; Z86.73 Personal history of transient ischemic attack (TIA), and cerebral infarction without residual deficits; Z79.02 Long term (current) use of antithrombotics/antiplatelets; Z79.82 Long term (current) use of aspirin; Z79.620 Long term (current) use of immunosuppressive biologic; M47.812 Spondylosis without myelopathy or radiculopathy, cervical region; M47.816 Spondylosis without myelopathy or radiculopathy, lumbar region
CPT/HCPCS: 36415; 71046; 71275; 80053; 83735; 84484; 85025; 87426; 87804; 93005; 96361; 96374; 99284; J1100; J7030; Q9967

== ENCOUNTER 2024-03-08 12:23 | Outpatient (CLI) | payer MEDICARE, MEDICAID, SELFPAY ==
--- NOTE | ~2024-03-08 | US_ITS ---
US pelvic complete w TV Ordering provider: Jayden Sim MD History: . R10.2 - Pelvic and perineal pain . Comparison: None. Technique: Transabdominal and endovaginal ultrasound of the pelvis (Doppler ultrasound interrogation techniques used as needed for this exam.) FINDINGS: CERVIX: Normal. UTERUS: Heterogeneous and Measures 4.9x 2.6x 4 cm in length which is within normal limits and is ante verted. No myometrial masses. ENDOMETRIUM: Normal in thickness measuring 4.5 mm. No endometrial masses, cysts or fluid. CUL DE SAC: No free fluid. RIGHT OVARY: Normal in size measuring 2x 1.2x 2.7 centimeters. Normal echotexture. Doppler vascular f low present. LEFT OVARY: Not visualized. ADNEXA: Normal. No mass. IMPRESSION: Heterogenous echogenicity of the uterus with no definite focal lesion. Follow-up advised. Nonvisualiz ation of the left ovary Otherwise, normal pelvic ultrasound. Reviewed, dictated and finalized at location A. IMPRESSION: Heterogenous echogenicity of the uterus with no definite focal lesion. Follow-u p advised. Nonvisualization of the left ovary Otherwise, normal pelvic ultrasou nd.
== END 2024-03-08 12:24 | disposition home or self-care (01) ==
LOC: ANHIMG 12:23
PROVIDERS: PCP Family Medicine; Visit Provider Student in an Organized Health Care Education/Training Program
DX: R10.2 Pelvic and perineal pain (principal)
CPT/HCPCS: 76830; 76856

== ENCOUNTER 2024-03-23 12:17 | Outpatient (CLI) | payer MEDICARE, MEDICAID, SELFPAY ==
[2024-03-23 13:01] LABS: Hematocrit 34.2 % (37.0-47.0); Hemoglobin 11.9 g/dL (12.0-15.0)
[2024-03-23 14:15] LABS: Iron 112 ug/dL (37-170)
[2024-03-23 14:26] LABS: Percent Iron Saturation 38 % (20-50)
== END 2024-03-23 12:18 | disposition home or self-care (01) ==
LOC: ANHLAB 12:24
PROVIDERS: PCP Family Medicine; Visit Provider Family Medicine
DX: D50.8 Other iron deficiency anemias (principal); E55.9 Vitamin D deficiency, unspecified; M81.0 Age-related osteoporosis without current pathological fracture
CPT/HCPCS: 36415; 82306; 82607; 82728; 83540; 83550; 85014; 85018

== ENCOUNTER 2024-04-16 16:43 | Emergency (ER) | payer MEDICARE, MEDICAID, SELFPAY ==
[2024-04-16 16:55] VITALS: BP 107/70; PULSE 70; RESP 18; TEMP 36.3; O2SAT 99
--- NOTE | 2024-04-16 17:32 | ED.EAR ---
HPI - Ear Problem General Chief complaint: Ear Stated complaint: LT Ear Pain Time Seen by Provider: 04/16/24 17:34 Source: patient, RN notes reviewed and old records reviewed Mode of arrival: ambulatory Limitations: no limitations History of Present Illness HPI Narrative: 58-year-old female presents to the [facility] with left ear pain since yesterday. No treatment prior to arrival. Denies using anything in her ear. Reports she had a TIA about 10 days ago. Denies fevers, headache, congestion. Related Data Home Medications Medication Instructions Recorded Confirmed golimumab 50 mg/0.5 mL 50 mg subcut MONTHLY 03/26/23 04/16/24 subcutaneous pen injector (Simponi) methotrexate sodium 2.5 mg tablet 2.5 mg PO WEEKLY 06/20/23 04/16/24 aspirin 81 mg tablet,delayed 81 mg PO DAILY 07/01/23 04/16/24 release mupirocin 2 % topical ointment 1 applic topical BID 07/01/23 04/16/24 metoprolol tartrate 50 mg tablet 50 mg PO BID 10/22/23 04/16/24 Allergies Allergy/AdvReac Type Severity Reaction Status Date / Time meclizine Allergy Severe Rash Verified 04/16/24 17:38 carbamazepine [From Tegretol] Allergy Intermediate Blister Verified 04/16/24 17:38 Cephalosporins Allergy Mild RASH Verified 04/16/24 17:38 clarithromycin Allergy Mild RASH Verified 04/16/24 17:38 imipramine Allergy Mild RASH Verified 04/16/24 17:38 Penicillins Allergy Mild HIVES Verified 04/16/24 17:38 cefuroxime [From Ceftin] Allergy Hives Verified 04/16/24 17:38 etanercept [From Enbrel] Allergy Redness of Verified 04/16/24 17:38 Skin hydromorphone [From Dilaudid] Allergy Hives Verified 04/16/24 17:38 oxycodone [From Percocet] Allergy Hives Verified 04/16/24 17:38 prochlorperazine Allergy Swelling Verified 04/16/24 17:38 [From Compazine] of Lip/Tongue/Throat propoxyphene [From Darvon] Allergy Hives Verified 04/16/24 17:38 propranolol [From Inderal LA] Allergy Rash Verified 04/16/24 17:38 alcohol AdvReac Severe Blister Verified 04/16/24 17:38 [From Mastisol Adhesive] chloroxylenol [From [place] 7] AdvReac Severe rash Verified 04/16/24 17:38 gum mastic AdvReac Severe Blister Verified 04/16/24 17:38 [From Mastisol Adhesive] methyl salicylate AdvReac Severe Blister Verified 04/16/24 17:38 [From Mastisol Adhesive] storax AdvReac Severe Blister Verified 04/16/24 17:38 [From Mastisol Adhesive] tizanidine AdvReac Intermediate Hallucinati Verified 04/16/24 17:38 ng codeine AdvReac Unknown Vomiting Verified 04/16/24 17:38 diphenhydramine AdvReac Vomiting Verified 04/16/24 17:38 [From Benadryl] hydrocodone [From Vicodin] AdvReac Vomiting Verified 04/16/24 17:38 Dermabond Allergy Intermediate Itching Uncoded 04/16/24 17:38 Review of Systems Review of Systems: All systems reviewed & are unremarkable except as noted in HPI and below Constitutional: Constitutional: Reports no additional constitutional complaints Eyes: Eyes: Reports no additional eye complaints ENT: Reports as per HPI and Reports otalgia (Left) Cardiovascular: Cardiovascular: Reports no additional cardiovascular complaints, Denies chest pain and Denies dyspnea Respiratory: Respiratory: Reports no additional respiratory complaints, Denies chest congestion, Denies cough and Denies dyspnea Gastrointestinal: Gastrointestinal: Reports no additional gastrointestinal complaints, Denies abdominal pain, Denies nausea and Denies vomiting Musculoskeletal: Musculoskeletal: Reports no additional musculoskeletal complaints Integumentary/Breasts: Skin/Breast: Reports system reviewed and no additional complaints, except as docu Neurologic: Reports system reviewed and no additional complaints, except as documented Psychiatric: Psychiatric: Reports no additional psychiatric complaints Allergic/Immunologic: Allergic/Immunologic: Reports no additional allergic/immunologic complaints PMFSH Past Medical History Medical History
== END 2024-04-16 17:59 | disposition home or self-care (01) ==
PROVIDERS: Emergency Provider Nurse Practitioner; PCP Family Medicine
DX: H65.92 Unspecified nonsuppurative otitis media, left ear (principal); I48.91 Unspecified atrial fibrillation; F41.8 Other specified anxiety disorders; K21.9 Gastro-esophageal reflux disease without esophagitis; Z86.718 Personal history of other venous thrombosis and embolism; I10 Essential (primary) hypertension; E78.5 Hyperlipidemia, unspecified; Z86.73 Personal history of transient ischemic attack (TIA), and cerebral infarction without residual deficits; Z95.0 Presence of cardiac pacemaker
CPT/HCPCS: 99213; G0463

== ENCOUNTER 2024-04-27 11:49 | Outpatient (CLI) | payer MEDICARE, MEDICAID, SELFPAY ==
--- NOTE | ~2024-04-27 | XR_ITS ---
AP and lateral views of the left femur Clinical History: Other specified disorder of bone Findings: No acute fracture or dislocation is seen. Osseous alignment is anatomic. Visualized joint s paces are grossly preserved. Soft tissues are unremarkable. Impression: Unremarkable left femoral radiographs. Reviewed, dictated and finalized at location . Impression: Unremarkable left femoral radiographs.
== END 2024-04-27 11:50 | disposition home or self-care (01) ==
LOC: ANHIMG 11:51
PROVIDERS: PCP Family Medicine; Visit Provider Nurse Practitioner Family
DX: M89.8X5 Other specified disorders of bone, thigh (principal)
CPT/HCPCS: 73552

== ENCOUNTER 2024-05-02 15:05 | Outpatient (CLI) | payer MEDICARE, MEDICAID, SELFPAY ==
[2024-05-02 15:25] LABS: Basophils Percent Auto 0.7 % (0.2-1.2); Eosinophils Absolute Auto 0.1 K/mm3 (0-0.3); Eosinophils Percent Auto 2.5 % (0-4.4); Hematocrit 37.4 % (37.0-47.0); Immature Granulocyte Absolute 0.01 K/mm3 (0.00-0.031); Immature Granulocyte Percent A 0.2 % (0-0.5); Lymphocytes Absolute Auto 1.68 K/mm3 (0.9-3.2); Lymphocytes Percent Auto 38.5 % (18.3-44.2); Mean Corpuscular HGB Conc 34.8 g/dl (32-36); Mean Corpuscular Hemoglobin 35.8 pg (26-34); Mean Platelet Volume 8.9 fl (7.4-10.4); Monocytes Absolute Auto 0.4 K/mm3 (0.1-0.6); Monocytes Percent Auto 9.6 % (2.6-8.5); Neutrophils Absolute Auto 2.1 K/mm3 (1.3-6.7); Neutrophils Percent Auto 48.5 % (45.5-73.1); Platelet Count Result 170 k/mm3 (150-375); Red Blood Count 3.63 M/mm3 (4.2-5.4); Red Cell Distribution Width 13.2 % (11.5-14.5); White Blood Count 4.4 K/mm3 (4.5-10.0)
[2024-05-02 15:34] LABS: Anion Gap 5 mmol/L (4-12); Blood Urea Nitrogen 23 mg/dL (7-17); Calcium 9.7 mg/dL (8.4-10.2); Carbon Dioxide 32 mmol/L (22-30); Chloride 103 mmol/L (98-107); Estimated Glomerular Filt Rate > 60; Glucose 82 mg/dL (65-110); Potassium 3.8 mmol/L (3.4-5.0); Sodium 140 mmol/L (137-145)
[2024-05-02 15:49] LABS: Erythrocyte Sedimentation Rate 22 mm/hr (0-20)
[2024-05-03 07:22] LABS: CRP, High Sensitivity 0.4 mg/L
== END 2024-05-02 15:06 | disposition home or self-care (01) ==
LOC: ANHLAB 15:11
PROVIDERS: PCP Family Medicine; Visit Provider Family Medicine
DX: M89.8X5 Other specified disorders of bone, thigh (principal); G90.50 Complex regional pain syndrome I, unspecified
CPT/HCPCS: 36415; 80048; 85025; 85652; 86141

== ENCOUNTER 2024-07-20 12:21 | Emergency (ER) | payer MEDICARE, MEDICAID, SELFPAY ==
--- NOTE | 2024-07-20 12:26 | ED.WOUNDLAC ---
HPI - Wound/Laceration General Chief Complaint: Wound/Laceration Stated Complaint: cut on lt foot Time Seen by Provider: 07/20/24 12:25 Source: patient Mode of arrival: ambulatory Limitations: no limitations History of Present Illness HPI narrative: Naye is a 58-year-old female patient presenting to the clinic today with complaints of a infected cut on her left foot/heel x4 days. No known injury. States that 4 days ago she noticed some heel pain and looked down and saw that her heel was cracked. She reports that her doctor had sent her in antibiotics(doxycycline) however she just picked up the prescription and has not started them. Thinks that it needs to be evaluated. Denies any fevers, chills, or body aches. States the area of the cut is becoming red and more painful to walk. Patient has multiple allergies. She denies any fevers, chills, body aches. Related Data Home Medications ?Medication ?Instructions ?Recorded ?Confirmed ?Last Taken ?Type golimumab 50 mg/0.5 mL 50 mg subcut MONTHLY 03/26/23 06/13/24 06/19/23 09:00 History subcutaneous pen injector (Simponi) aspirin 81 mg tablet,delayed 81 mg PO DAILY 07/01/23 06/13/24 Unknown History release mupirocin 2 % topical ointment 1 applic topical BID 07/01/23 06/13/24 Unknown History metoprolol tartrate 50 mg tablet 50 mg PO BID 10/22/23 06/13/24 Unknown History leflunomide 20 mg tablet 20 mg PO DAILY 06/13/24 06/13/24 Unknown History Allergies Allergy/AdvReac Type Severity Reaction Status Date / Time meclizine Allergy Severe Rash Verified 06/13/24 08:34 carbamazepine (From Tegretol) Allergy Intermediate Blister Verified 06/13/24 08:34 Cephalosporins Allergy Mild RASH Verified 06/13/24 08:34 clarithromycin Allergy Mild RASH Verified 06/13/24 08:34 imipramine Allergy Mild RASH Verified 06/13/24 08:34 Penicillins Allergy Mild HIVES Verified 06/13/24 08:34 cefuroxime (From Ceftin) Allergy Hives Verified 06/13/24 08:34 etanercept (From Enbrel) Allergy Redness of Verified 06/13/24 08:34 Skin hydromorphone (From Dilaudid) Allergy Hives Verified 06/13/24 08:34 oxycodone (From Percocet) Allergy Hives Verified 06/13/24 08:34 prochlorperazine (From Allergy Swelling Verified 06/13/24 08:34 Compazine) of Lip/Tongue/Throat propoxyphene (From Darvon) Allergy Hives Verified 06/13/24 08:34 propranolol (From Inderal LA) Allergy Rash Verified 06/13/24 08:34 alcohol (From Mastisol AdvReac Severe Blister Verified 06/13/24 08:34 Adhesive) chloroxylenol (From [place] 7) AdvReac Severe rash Verified 06/13/24 08:34 gum mastic (From Mastisol AdvReac Severe Blister Verified 06/13/24 08:34 Adhesive) methyl salicylate (From AdvReac Severe Blister Verified 06/13/24 08:34 Mastisol Adhesive) storax (From Mastisol AdvReac Severe Blister Verified 06/13/24 08:34 Adhesive) tizanidine AdvReac Intermediate Hallucinati Verified 06/13/24 08:34 ng codeine AdvReac Unknown Vomiting Verified 06/13/24 08:34 diphenhydramine (From AdvReac Vomiting Verified 06/13/24 08:34 Benadryl) hydrocodone (From Vicodin) AdvReac Vomiting Verified 06/13/24 08:34 Dermabond Allergy Intermediate Itching Uncoded 06/13/24 08:34 Review of Systems Review of Systems: Pertinent positives per HPI. Patient denies any fever, chills, rash, headache, visual changes, dizziness, cough, runny nose, sore throat, shortness of breath, chest pain, palpitations, nausea, vomiting, diarrhea, constipation, abdominal pain, or any urinary issues. [facility] Past Medical History Medical History A-fib Abdominal bloating Abdominal lump Abnormality of heart beat Abrasion of toe Acute bacterial sinusitis Acute cervical myofascial strain Allergic dermatitis Allergic reaction to allergy skin test Anemia, unspecified Anxiety Anxiety about health Ataxia Atopic dermatitis Atypical face pain Bilateral knee pain BMI 29.0-29.9,adult Bradycardia Cervical pain Chronic GERD Confusion D-dimer, elevated Degenerative joint disease of cervical and lumbar spine Depression Diarrhea Dizziness DVT (deep venous thrombosis) Ear pain Essential (primary) hypertension Family history of beta thalassemia Fibromyalgia Flatulence Foraminal stenosis of lumbar region Foreign body in ear Foreign body of toe Fracture of second toe, left, closed Groin hematoma Groin pain Headache Hematoma of left chest wall History of deep vein thrombosis Hypersomnolence Hypoglycemia Hyponatremia Inappropriate sinus tachycardia Knee pain Left ear pain Lesion of skin of nose Lightheadedness Lipid disorder LLQ abdominal pain Lumbar pain Lumbar stenosis MCL sprain of left knee Migraine Mixed hyperlipidemia Pancreatitis Paroxysmal atrial fibrillation Pelvic pain Pneumonia Presence of Amulet left atrial appendage closure device Presence of IVC filter Presence of neurostimulator Restless leg syndrome Rheumatoid arthritis Rheumatoid arthritis, seronegative, multiple sites Right hand pain RSD (reflex sympathetic dystrophy) Spasm of lumbar paraspinous muscle SVT (supraventricular tachycardia) TIA (transient ischemic attack) Topical med dermatitis Vertigo Vomiting Wears glasses Surgical History Surgical History Hx of atrioventricular node ablation History of surgery on left wrist H/O cardiac radiofrequency ablation S/P IVC filter S/P insertion of spinal cord stimulator History of tubal ligation History of endometrial ablation H/O hernia repair Status post surgical removal of both fallopian tubes History of arthroscopic knee surgery History of back surgery History of permanent cardiac pacemaker placement 2018 pacemaker replaced 2023 Family History Family History Grandparent Family history of blood dyscrasia Family history of Alzheimer's disease Family history of malignant neoplasm of cervix Mother Family history of Alzheimer's disease Thyroid activity decreased Father Family history of lung cancer Sibling Thyroid activity decreased Other Diabetes mellitus Family history of allergic disorder Family history of kidney disease Family history of malignant neoplasm of thyroid High cholesterol Social History Social History Social History: Caffeine-none Smoking packs per day: 0 Smoking cigarettes per day: 0.0 Years smoked: 0 Smoking pack-years: 0.00 Smoking status: Never smoker Second hand tobacco smoke exposure: No Alcohol intake: never Substance use: never Substance use type: does not use Do You Feel Safe in your Home?: Yes Lack of Transportation: No Lack of Food: Never True Current Housing: I Have Housing Concerned About Future Housing: No Difficulty Paying Gas/Electric Bills: No Difficulty Paying for Meds: No Currently Unemployed: No Education: High School Diploma/GED Difficulty w/ Childcare or Family Care: No Living arrangements: alone Occupation/Education: retired 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 There is no relevant family history pertinent to the patient complaint. Exam Narrative: General: Well-developed, well nourished, in no apparent distress Head: Normocephalic, atraumatic. Cardio: Regular rate and rhythm, s1 and s2 normal, no murmur appreciated. Resp: Clear to auscultation bilaterally, no rhonchi, rales, wheezing or rubs. Integumentary: [place], warm, and dry, cracked infected wound to the heel, red, tender to palpation with mild erythema, very little yellow discharge coming from the wound Course Course Emergency Course: Portions of this record may have been created with voice recognition software. Level of Care: Express Care Visit Vital Signs Vital signs: Vital Signs Temperature 36.3 C L 07/20/24 12:35 Pulse Rate 76 07/20/24 12:35 Respiratory Rate 14 07/20/24 12:35 Blood Pressure 124/82 07/20/24 12:35 Pulse Oximetry 100 07/20/24 12:35 Oxygen Delivery Room Air 07/20/24 12:35 Temperature 36.3 C L 07/20/24 12:35 Pulse Rate 76 07/20/24 12:35 Respiratory Rate 14 07/20/24 12:35 Blood Pressure 124/82 07/20/24 12:35 Pulse Oximetry 100 07/20/24 12:35 Oxygen Delivery Room Air 07/20/24 12:35 Vital signs reviewed MDM - Wound/Laceration MDM Narrative Medical decision making narrative: At the time of visit patient is resting comfortably on the exam table. Patient appears to be nontoxic. Plan: I suspect patient has a wound infection to the left heel. Patient picked up doxycycline from her pharmacy. Supportive measures were discussed with the patient and they voiced understanding discharge instructions and agrees to treatment plan. Return precautions reviewed Differential Diagnosis Differential diagnosis: Likely laceration, abscess, abrasion, avulsion of skin and other (Skin infection) Discharge Plan Discharge Clinical Impression: Bacterial skin infection, Wound infection Patient Disposition: Home, Self-Care Condition: Stable Instructions: Antibiotic Form, Wound Infection (ED) Additional Instructions: Take doxycycline as prescribed by your provider May apply triple antibiotic ointment to the wound twice daily for 2-3 days. Wash wound daily with soap and water and pat dry Keep covered if it is draining May take Tylenol as needed for pain Watch for signs and symptoms of worsening infection- redness, streaking, swelling, purulent discharge, or increase in pain. Follow up with your PCP in 5-7 [id number] sooner if symptoms worsening or go to the emergency room Patient Language: Citizen Of [place] Prescriptions: No Action aspirin 81 mg tablet,delayed release (DR/EC) 81 mg PO DAILY mupirocin 2 % ointment 1 applic topical BID promethazine [Promethegan] 25 mg suppository 25 mg RECTAL Q6H PRN (Reason: nausea and vomiting) Qty: 12 1RF metoprolol tartrate 50 mg tablet 50 mg PO BID leflunomide 20 mg tablet 20 mg PO DAILY Simponi 50 mg/0.5 mL pen injector 50 mg SUBCUT MONTHLY Patient Comments: TAKES ON THE 1ST DAY OF THE MONTH Rx Instructions: pt will not restart till 2 weeks post procedure triamcinolone acetonide 0.1 % cream 1 applic topical BID Qty: 80 0RF pramipexole 1 mg tablet 1 mg PO BID Qty: 180 1RF diclofenac sodium 1 % gel See Rx Instructions .ROUTE .COMPLEX Qty: 500 1RF Dose Instruction: APPLY 4 GRAMS TO SINGLE ELBOW, WRIST, OR HAND (INCLUDES PALM/FINGER/BACK OF HAND) 4 TIMES DAILY NEEDED FOR PAIN Rx Instructions: APPLY 4 GRAMS TO SINGLE ELBOW, WRIST, OR HAND (INCLUDES PALM/FINGER/BACK OF HAND) 4 TIMES DAILY NEEDED FOR PAIN nitroglycerin [Nitrostat] 0.4 mg Tablet, Sublingual 0.4 mg sublingual Q5MIN PRN (Reason: Chest Pain) Qty: 25 0RF albuterol sulfate [ProAir HFA] 90 mcg/actuation HFA aerosol inhaler 1 inh inhalation Q4H PRN (Reason: shortness of breath or wheezing) Qty: 6.7 3RF epinephrine [EpiPen 2-Ranulfo] 0.3 mg/0.3 mL auto-injector 0.3 mg IM ONCE PRN (Reason: Allergic Reaction) Qty: 2 0RF Rx Instructions: as a single dose; may repeat once duloxetine [Cymbalta] 60 mg capsule,delayed release(DR/EC) 60 mg PO HS Qty: 90 1RF lidocaine 5 % adhesive patch,medicated 1 patch topical DAILY Qty: 15 0RF Rx Instructions: leave on most painful area for up to 12 hrs montelukast [Singulair] 10 mg tablet 10 mg PO DAILY Qty: 90 2RF Patient Comments: QAM rosuvastatin 40 mg tablet 40 mg PO DAILY Qty: 90 1RF ropinirole 1 mg tablet 1 mg PO TID Qty: 270 1RF pantoprazole 40 mg tablet,delayed release (DR/EC) See Rx Instructions .ROUTE .COMPLEX Qty: 90 0RF Dose Instruction: TAKE 1 TABLET (40 MG) ORALLY EVERY DAY AT BEDTIME Rx Instructions: TAKE 1 TABLET (40 MG) ORALLY EVERY DAY AT BEDTIME baclofen 5 mg tablet 5 mg PO DAILY Qty: 20 0RF hydroxyzine HCl 25 mg tablet 25 mg PO Q8H PRN (Reason: itching) Qty: 270 1RF Rx Instructions: remain on 3mo supply ondansetron 4 mg tablet,disintegrating 4 mg PO Q8H PRN (Reason: nausea and vomiting) Qty: 20 0RF celecoxib 200 mg capsule See Rx Instructions .ROUTE .COMPLEX Qty: 30 3RF Dose Instruction: TAKE 1 CAPSULE BY MOUTH EVERY DAY WITH FOOD Rx Instructions: TAKE 1 CAPSULE BY MOUTH EVERY DAY WITH FOOD doxycycline hyclate 100 mg tablet 100 mg PO BID Qty: 14 0RF Follow-up/Referrals: Tom Paz MD [Primary Care Provider] - Time of Disposition: 12:40 Quality NIHSS Nursing Documentation ED NIHSS nursing documentation: reviewed/agree
[2024-07-20 12:35] VITALS: BP 124/82; PULSE 76; RESP 14; TEMP 36.3; O2SAT 100
--- OUTSIDE RECORDS SUMMARY | 2024-07-27 07:42 | XMS_ITS | Patient Health Record ---
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 Name Role Phone Jackson BRYANT, Tom Primary Care Provider Cecilia Nicole Unavailable [phone] ALLERGIES Allergen (clinical drug ingredient) Drug/Non Drug Allergy documented on EMR Reaction Allergy Type Onset Date Status COMPAZINE Unknown Drug Allergy Active penicillin Unknown Drug Allergy Active Vicodin Unknown Drug Allergy Active Tylenol with Codeine #3 Unknown Drug Allergy Active acetaminophen / oxycodone Percocet Unknown Drug Allergy Active meclizine Meclizine HCl Unknown Drug Allergy Act antionette propranolol Inderal LA Unknown Drug Allergy Acti ve imipramine Imipramine HCl Unknown Drug Allergy A ctive Darvon Unknown Drug Allergy Active Darvocet-N 50 Unknown Drug Allergy Act antionette Ceftin Unknown Drug Allergy Active Biaxin Unknown Drug Allergy Active diphenhydramine Benadryl Unknown Drug Allergy A ctive REASON FOR REFERRAL No Information MEDICATIONS Medication SIG (Take, Route, Fr equency, Duration) Notes Start Date End Date Status Neurontin Active CeleBREX Active Corlanor Active Vitamin B Complex Ac tive hydrOXYzine HCl Acti ve Nucynta Active rOPINIRole HCl Activ e Lidocaine Active Vitamin D-3 Active Fluocinonide Active Astelin Active Akne-Mycin Active Cymbalta Active Voltaren Active Flexeril Active Biotin Active Aspir-81 Active Crestor Active Klor-Con 10 Active Promethazine HCl Act antionette SOCIAL HISTORY Tobacco Use: Social History Observation Description Date Details (start date - stop date) Never Smoker NA - NA Sex Assigned At : Social History Observation Description Sex Assigned At Unknown Tobacco Use/Smoking Question Answer Notes Are you a nonsmoker PROBLEMS Problem Type ICD Code Onset Dates Problem Status W/U Status Risk SNOMED Code Notes Problem Primary osteoarthritis of right knee (M17.11) Active confirmed 778835673507667 Problem Closed nondisplaced fracture of acromial end of left clavicle, initial encounter (S42.035A) Active confirmed 9718931 Problem Closed nondisplaced fracture of acromial end of left clavicle with routine healing, subsequent encounter (S42.035D) Active confirmed 7309650 Problem Right hip pain (M25.551) Active confirmed Right hip pain (344963788719521) Problem Left hip pain (M25.552) Active confirmed Arthralgia of t he pelvic region and thigh (854836762) Problem Primary localized osteoarthritis of right knee (M17.11) Active confirmed Primary osteoarthritis (270938129) Problem Pes anserine bursitis (M70.50) Active confirmed [id number] PLAN OF TREATMENT Pending Test Test Name Order Date X ray : Hip, left, 2 02/24/2018 X ray : Hip, right, 2 02/24/2018 X ray : Knee, right 3 views 11/30/2017 Insurance Providers Payer Name Payer Address Payer Phone Subscriber Number Group Number Insured Name Patient Relationship to Insured Coverage Start Date Coverage End Date Medicare Services [address] [address] [place] [address] [id number] Naye Hart Self - patient is the insured 0 Medicaid [address] [place] [address] [id number] Naye Hart Self - patient is the insured MEDICATIONS ADMINISTERED Medication Instructions Date of Administration Dosage Notes Betamethasone/ sodium phosphate 6mg 01/11/2018 Betamethasone/ sodium phosphate 6mg 04/21/2018 Depo-Medrol 80 mg 09/29/2018 Depo-Medrol 80 mg 09/29/2018 Betamethasone/ sodium phosphate 6mg 02/28/2019 Betamethasone/ sodium phosphate 6mg 11/28/2019 MEDICAL (GENERAL) HISTORY Surgical History Surgery Date(Month/Year) Tubal Ligation 1988 Left Wrist 1997 Right Knee Manipulation 2006 Spinal Cord Stimulator 2006 IVC Filter Permanent 2006 Spinal Cord Stimulator 2011 Spinal Cord Stimulator 2013 Right Knee 2014 Hysterectomy 2014 Back S1-L5-L4 2015 Hernia Repair 2017 S1-L5 Revision, Fusion L3-4 2018 Hospitalization History Reason Date(Month/Year) Same as Surgical Hx
== END 2024-07-20 12:44 | disposition home or self-care (01) ==
PROVIDERS: Emergency Provider Nurse Practitioner Family; PCP Family Medicine
DX: L08.9 Local infection of the skin and subcutaneous tissue, unspecified (principal); B96.89 Other specified bacterial agents as the cause of diseases classified elsewhere; Z86.718 Personal history of other venous thrombosis and embolism; I48.91 Unspecified atrial fibrillation; D64.9 Anemia, unspecified; K21.9 Gastro-esophageal reflux disease without esophagitis; I10 Essential (primary) hypertension; Z95.0 Presence of cardiac pacemaker; Z79.82 Long term (current) use of aspirin; E78.2 Mixed hyperlipidemia; Z86.73 Personal history of transient ischemic attack (TIA), and cerebral infarction without residual deficits
CPT/HCPCS: 99211; G0463

== ENCOUNTER 2024-08-01 15:59 | Outpatient (CLI) | payer MEDICARE, MEDICAID, SELFPAY ==
[2024-08-01 16:31] LABS: Hematocrit 36.2 % (37.0-47.0); Hemoglobin 12.5 g/dL (12.0-15.0); Mean Corpuscular HGB Conc 34.5 g/dl (32-36); Mean Corpuscular Volume 101.4 fl (80-100); Platelet Count Result 154 k/mm3 (150-375); Red Blood Count 3.57 M/mm3 (4.2-5.4); Red Cell Distribution Width 12.3 % (11.5-14.5); White Blood Count 4.5 K/mm3 (4.5-10.0)
[2024-08-01 16:44] LABS: Alanine Aminotransferase 22 U/L (6-35); Albumin Level 4.2 g/dL (3.5-5.1); Alkaline Phosphatase 69 U/L (38-126); Anion Gap 4 mmol/L (4-12); Aspartate Amino Transferase 28 U/L (14-36); Bilirubin,Total 0.6 mg/dL (0.2-1.3); Blood Urea Nitrogen 19 mg/dL (7-17); Calcium 9.3 mg/dL (8.4-10.2); Carbon Dioxide 31 mmol/L (22-30); Chloride 107 mmol/L (98-107); Cholesterol 177 mg/dL (0-200); Estimated Glomerular Filt Rate > 60; Glucose 77 mg/dL (65-110); HDL Direct 41 mg/dL; Potassium 3.8 mmol/L (3.4-5.0); Sodium 142 mmol/L (137-145); Triglycerides 151 mg/dL (<150)
[2024-08-01 16:55] LABS: LDL Cholesterol Direct 87 mg/dL
[2024-08-01 23:41] LABS: Iron 156 ug/dL (37-170)
[2024-08-01 23:50] LABS: Percent Iron Saturation 50 % (20-50)
== END 2024-08-01 16:00 | disposition home or self-care (01) ==
PROVIDERS: PCP Family Medicine; Visit Provider Family Medicine
DX: E78.5 Hyperlipidemia, unspecified (principal); I50.9 Heart failure, unspecified; D50.8 Other iron deficiency anemias; F41.9 Anxiety disorder, unspecified; F32.A Depression, unspecified; Z13.220 Encounter for screening for lipoid disorders; E87.6 Hypokalemia
CPT/HCPCS: 36415; 80048; 80061; 80076; 82728; 83540; 83550; 83735; 84443; 85027

== ENCOUNTER 2024-09-22 13:47 | Outpatient (CLI) | payer MEDICARE, MEDICAID, SELFPAY ==
--- NOTE | ~2024-09-22 | XR_ITS ---
[id number] Ordering provider: Tom Paz MD History: . M79.671 - Pain in right foot . Comparison: None. FINDINGS: BONES: No acute fracture or dislocation. JOINT SPACES: Normal. No tarsal coalition. SOFT TISSUES: Normal. IMPRESSION: No acute osseous abnormality of the right foot. Reviewed, dictated and finalized at location A. CAN HISTORY PROFESSOR
--- NOTE | ~2024-09-22 | US_ITS ---
EXAMINATION: US venous doppler LE DATE: 09/22/2024 14:27 INDICATION: Right lower limb pain and swelling TECHNIQUE: Grayscale ultrasound images without and with compression and Doppler ultrasound images of the right lower extremity veins were obtained. COMPARISON: None. FINDINGS: The visualized portions of right common femoral vein, profunda (deep) femoral vein, femoral vein, pop liteal vein, peroneal trunk, posterior tibial veins, peroneal veins and greater saphenous vein outflo w are patent. IMPRESSION: 1. No deep venous thrombosis in the right lower limb. Reviewed, dictated and finalized at location L. FILER BALANCE WHEEL
--- OUTSIDE RECORDS SUMMARY | 2024-09-22 15:07 | XMS_ITS | Continuity of Care Document ---
Author Organization [facility] Address [address] [address] [place] [address] Phone Care Team Providers Care Zone Maintenance Technician Name Role Phone Nayely MAURICIO OD, Denise Unavailable Unavai lable Allergies, Adverse [...] times every day 25 MG - Active Procedures Procedure Date OFFICE/OUTPATIENT VISIT, EST OFFICE/OUTPATIENT VISIT, EST OFFICE/OUTPATIENT VISIT, EST REFRACTION Medicare OFFICE/OUTPATIENT VISIT, EST REFRACTION [facility] OFFICE/OUTPATIENT VISIT, EST OFFICE/OUTPATIENT VISIT, EST REFRACTION [facility] OFFICE/OUTPATIENT VISIT, EST REFRACTION MEDICARE OFFICE/OUTPATIENT [...] TIENT VISIT, EST [facility], [address] [place] [address], [id number], tel:[phone] OPH CONSULT [facility] flash of light OS (chief complaint) Age-related nuclear cataract, bilateralTea r film insufficienc y of bilateral lacrimal glandsOther vitreous opacities, bilateral Feb-0 - 5 Derheimer OD Denise. [address], [address], [place], [place], [id number], [place]. tel:[phone] Referring Provider: Tom Sapp, [address], [place], [address]. tel:[phone] OFFICE/OUTPA TIENT VISIT, EST [facility], [address] [place] [address], [place], [place], [id number], tel:[phone] [facility] Pain OS (chief complaint) Left eye painAge-rela jaden nuclear cataract, bilateralOth er vitreous opacities, bilateralTea r film insufficienc y of bilateral lacrimal glands Apr-0 - 4 Krishnasamy Anthony. [address], [address], [place], [place], [id number], [place]. tel:[phone] Referring Provider: Tom Sapp, [address] [place], [place], [address]. tel:[phone] OFFICE/OUTPA TIENT VISIT, EST [facility], [address] [place] [address], [place], [place], [id number], [place] tel:[phone] OPH CONS[facility] blurry vision (chief complaint) Age-related nuclear cataract, bilateralTea r film insufficienc y of bilateral lacrimal glandsOther vitreous opacities, bilateralDip lopiaHyperme tropia, bilateral Oct-2 -202 3 Krishnasamy Anthony. [address], [address], [place], [place], [id number], . tel:[phone] Referring Provider: Tom Sapp, [address], [place], [address]. tel:[phone] OFFICE/OUTPA TIENT VISIT, EST [facility], [address] [place] [address], [id number], tel:[phone] OPH CONSULT [facility] blurry VA (chief complaint) Tear film insufficienc y of bilateral lacrimal glandsOther vitreous opacities, bilateralAge -related nuclear cataract, bilateralDip lopiaHyperme tropia, bilateral Mar-1 0-202 2 Krishnasamy Anthony. [address], [place], [place], [id number], [place]. tel:[phone] Referring Provider: Tom Sapp, [address], [place], [address]. tel:[phone] OFFICE/OUTPA TIENT VISIT, EST [facility], [address] [place] [address], [id number], [place] tel:[phone] OPH CONSULT [facility] shingles (chief complaint) Herpes zoster without complication Tear film insufficienc y of bilateral lacrimal glands Apr- 1 Krishnasamy Anthony. [address] , [address], [place], [place], [id number], [place]. tel:[phone] Referring Provider: Tom Spap, [address], [place], [address]. tel:[phone] OFFICE/OUTPA TIENT VISIT, EST [facility], [address] [place] [address], [id number], [place] tel:[phone] OPH CONSULT [facility] blurry (chief complaint) DiplopiaAge- related nuclear cataract, bilateralTea r film insufficienc y of bilateral lacrimal glandsOther vitreous opacities, bilateralHyp ermetropia, bilateral Nov- 9 Krishnasamy Anthony. [address], [address], [id number], . tel:[phone] Referring Provider: Anthony Gutierrez [address], [place], [place], [id number]. tel:[phone] OFFICE/OUTPA TIENT VISIT, EST [facility], [address] [place] [address], [id number], tel:[phone] OPH CON[facility]ULT [facility] blurry vision (chief complaint) Tear film insufficienc y of bilateral lacrimal glandsOther vitreous opacities, bilateralDip lopiaHyperme tropia of both eyes Oct-3 0 8 Brenda Cruz. [address], [place], [place], [id number], . tel:[phone] Referring Provider: Anthony Gutierrez [address] [place] [address], [id number]. tel:[phone] OFFICE/OUTPA TIENT VISIT, EST [facility], [address] [place] [address], [id number], [place] tel:[phone] OPH CONSULT [facility] blurry vision (chief complaint)dr y eyes (chief complaint) DiplopiaOthe r vitreous opacities, bilateralTea r film insufficienc y of bilateral lacrimal glandsHyperm etropia of both eyes 7 Brenda Cruz. [address], [address], [id number], [place]. tel:[phone] Referring Provider: Anthony Gutierrez, [address], [id number]. tel:[phone] OFFICE/OUTPA TIENT VISIT, EST [facility], [address] [place] [address], [id number], [place] tel:[phone] OPH CONSULT [facility] blurry vision (chief complaint) Reflex sympathetic dystrophy, unspecifiedT ear film insufficienc y, unspecifiedH ypermetropia of both eyesOther vitreous opacities, bilateralDip lopia Oct-0 5 6 Krishnasnina Garyhil. [address], [address], [place], [place], [id number], [place]. tel:[phone] Referring Provider: Anthony Gutierrez, [address] [place] [address], [id number]. tel:[phone] OFFICE/OUTPA TIENT VISIT, NEW [facility], [address] [place] [address], [id number], [place] tel:[phone] [facility] Office blurry vision (chief complaint) Hypermetropi aTear film insufficienc y, unspecifiedO ther vitreous opacitiesDip lopiaReflex sympathetic dystrophy, unspecified Sep-2 5 Krishnasnina Anthony. [address], [address], [id number], [place]. tel:[phone] Referring Provider: Anthony Gutierrez, [address] [place] [address], [id number]. tel:[phone] OFFICE/OUTPA TIENT VISIT, EST [facility], [address] [place] [address], [id number], [place] tel:[phone] [facility] Office pain (chief complaint)bl urry vision (chief complaint)ir ritation (chief complaint) Tear film insufficienc y, unspecifiedR eflex sympathetic dystrophy, unspecifiedO ther vitreous opacitiesHyp ermetropiaDi plopia Aug-0 4 Krishnasamy Anthony. [address], [address], [place], [id number], [place]. tel:[phone] Referring Provider: Anthony Gutierrez, [address], [place], [id number]. tel:[phone] OFFICE/OUTPA TIENT VISIT, EST [facility], [address] [place] [address], [id number], [place] tel:[phone] Oph Consult [facility] flashes at night (chief complaint) Other vitreous opacitiesTea r film insufficienc y, unspecifiedD iplopiaHyper metropia Sep- 3 Krishnasamy Anthony. [address], [place], [place], [id number], [place]. tel:[phone] Referring Provider: Anthony Gutierrez, [address], [place], [place], [id number]. tel:[phone] OFFICE/OUTPA TIENT VISIT, EST [facility], [address] [place] [address], [id number], [place] tel:[phone] OPH CONSULT [facility] double va occasionally (chief complaint) Tear film insufficienc y, unspecifiedR eflex sympathetic dystrophy, unspecifiedD iplopiaHyper metropia Mar-2 3 Krishmargaret Anthony. [address], [address], [place], [place], [id number], [place]. tel:[phone] Referring Provider: Anthony Gutierrez, [address], [place], [place], [id number]. tel:[phone] OFFICE/OUTPA TIENT VISIT, EST [facility], [address] [place] [address], [id number], [place] tel:[phone] OPH CONSULT [facility] blurry vision (chief complaint) Tear film insufficienc y, unspecifiedD iplopia Sep-2 2 Krishnasamy Anthony. [address], [place], [id number], [place]. tel:[phone] Referring Provider: Anthony Gutierrez, [address], [place], [id number]. tel:[phone] OFFICE/OUTPA TIENT VISIT, NEW [facility], [address] [place] [address], [place], [place], [id number], [place] tel:[phone] OPH CONSULT [facility] lost glasses (chief complaint) DiplopiaHead acheHypermet ropia 1 Brenda Cruz. [address], [place], [place], [id number], [place]. tel:[phone] Family History Family Member Type Diagnosis Age At Onset Son Problem (finding) Lazy eye Payers Payer name Insurance type Covered libertarian ID Authoriza tion(s) MEDICARE OF [place] MB [id number] [place] [id number] Social History Type Description Quantity Date Captured Comments Alcohol Use Details No Caffeine Use Details No Tobacco Use Status Current non-smoker Smoking Status Never smoker Non-Smoking Tobacco Use Details : No Details Available : No Details Available Sex Female Vital Signs Date / Time: Height Weight BMI Pulse Rate Blood Pressure Temperature Respiratory Rate Body Surface Area Head Circumference BMI percentile Pulse Ox Inhaled Ox 2:27 PM 68.00 in 180.00 lbs 27.3 7 kg/m eter (2) Chief Complaint And Reason For Visit From encounter dated '08/23/2024 15:45'. flash of light OS (chief complaint). Description: [...] gtts. Patient sees oscar richardson and [facility]. Plan Of Treatment Date Type Action Status No Information History Of Present Illness Encounter [...] any gtts. Patient sees oscar richardson and JEAN CLAUDE. Pain OS The 58 year old female [...] D&N. Pt saw Dr Nai Sotelo at [facility] for prism. Pt did not update Rx, pt would like an Rx today and keep Dr Sotelos prism. dry eyes The patient is p [...] a very dangerous blood clot near spine. Instructions Date Instruction Additional Infor ivan Impression/Plan [...] Impression/Plan Related to Other vitreous opacities, bilateral Oct-24-2023 Impression/Plan Related to Tear film insufficiency of [...] of bilateral lacrimal glands Impression/Plan Related to Diplo tierra Impression/Plan Related to Age-r elated nuclear cataract, bilateral Impression/Plan Related to Hyper metropia, bilateral Impression/Plan [...] OU Related to Hypermetropia of both eyes Follow up - RTO 1 year with [...] does not include the prism. Check with [facility] orthoptics regarding prism OU Related to Hypermetropia of both eyes Impression/Plan - Co ntinue care with primary MD Related to Reflex sympathetic dystrophy, unspecified Impression/Plan - Gl asses Rx not given [...] noted. Related to Other vitreous opacities Impression/Plan - Ne w glasses Rx was not given today. Related to Diplopia Impression/Plan Related to Refle x sympathetic dystrophy, [...] lasses Rx w/ prism. Related to Hypermetropia Diplopia- likely due to dry eye Related to Diplopia - Return in PRN Related to Vitre ous Floaters Vitreous Floaters OD - Discussed diagnosis in detail with patient. No treatment is required at this time. Educational materials provided:Flashers/floaters. Discussed signs and symptoms of PVD/floaters. Related to Vitreous Floaters Tear film insufficie ncy, unspecified OU - Discussed diagnosis in detail with patient. Discussed treatment options with patient. Patient instructed to use artificial tears as needed. Related to Tear film insufficiency, unspecified Diplopia OU Related to Diplo tierra Hypermetropia OU Related to Hype rmetropia Reflex sympathetic d ystrophy Reflex sympathetic dystrophy, [...] 063, OS +1.75+0.75x 080. Patient will see Ms. Oscar Richardson (software test specialist) @ [facility] for prisms/glasses. Related to Headaches Reflex sympathetic [...] 061, OS +1.75+0.75x 082. Patient will see Ms. Oscar Richardson (software test specialist) @ [facility] 12/24/2010 for motility exam and measurements for [...]
--- OUTSIDE RECORDS SUMMARY | 2024-09-22 15:08 | XMS_ITS | Referral Summary ---
Author Organization [facility] al Address [address] [place] [address] Care Team Providers Care Home Health Nurse Name Role Phone Tom Paz MD Primary Care Provider [phone] Tab Taylor MD Unavailable Favian Caceres MD Unavailable [phone] Encounters Date Type Department Care Team Description 09/02/2024 Telephone [facility] Dermatology [address] [place] [address] [address] [place] [phone] Va Maharaj CNA Request Call Back 08/25/2024 7:24 AM STRUCTURAL ARCHITECT - 08/25/2024 11:59 PM STRUCTURAL ARCHITECT Hospital Encounter [facility] Radiology [address] [place] [address] Transient ischemic attack (TIA); Cerebrovascular disease, unspecified; Unspecified visual loss; Presence of cardiac pacemaker Discharge Disposition: Discharge to home or self care 08/25/2024 Orders Only [facility] Radiology [address] [place] [address] Katarzyna Gil RT 08/23/2024 12:12 PM STRUCTURAL ARCHITECT - 08/23/2024 11:59 PM STRUCTURAL ARCHITECT Hospital Encounter [facility] Radiology [facility] [address] [place] [phone] Pacemaker reprogramming/check ; Complete heart block (HCC) Discharge Disposition: Discharge to home or self care 08/23/2024 11:30 AM STRUCTURAL ARCHITECT Office Visit [facility] Cardiology [facility] 8th [place] [address] [place] [address] Elise Ibarra NP Pacemaker reprogramming/check (Primary Dx); Complete heart block (HCC) 08/23/2024 11:00 AM STRUCTURAL ARCHITECT Ancillary Procedure [facility] Cardiology [address] [place] [address] 8th [place] [address] [place] [address] Pacemaker reprogramming/check 08/23/2024 Orders Only [facility] Cardiology [address] [place] [address] 8th [place] [address] [place] [address] Elise Ibarra NP Pacemaker reprogramming/check (Primary Dx) 08/02/2024 12:30 PM STRUCTURAL ARCHITECT - 08/02/2024 1:30 PM STRUCTURAL ARCHITECT Surgery [address] [address] Trey Arroyo MD COLON BIOPSY 08/02/2024 1:07 PM STRUCTURAL ARCHITECT Anesthesia Event [address] [address] Rui Fuller MD McGowan, Jessica Lynn, NP 08/02/2024 11:02 AM STRUCTURAL ARCHITECT - 08/02/2024 3:29 PM STRUCTURAL ARCHITECT Hospital Encounter [address] [address] Trey Arroyo MD Dysphagia, unspecified type; Dyspepsia; Diarrhea, unspecified type Discharge Disposition: Discharge to home or self care 07/28/2024 10:30 AM STRUCTURAL ARCHITECT Office Visit [facility] [address] [place] [address] Claudia Cristobal PA Seronegative rheumatoid arthritis (HCC) (Primary Dx); Encounter for long-term (current) use of high-risk medication 07/26/2024 Telephone [facility] Specialty Services [address] [place] [address] Sarina Posey RN GI PROCEDURE 7 DAY PRE CALL 07/26/2024 Orders Only [facility] Health Information Management [address] [place] [address] Scanning, Provider 07/14/2024 10:30 AM STRUCTURAL ARCHITECT Pre-Admission Testing [facility] Center for Preoperative Assessment and Planning [facility] ([facility]) [address] [place] [address] 06/28/2024 2:28 PM STRUCTURAL ARCHITECT Anesthesia Event [facility] Operating Room [address] [place] [phone] Lakhwinder Plummer DO Gravlin, Leslie Anne, FELIPE 06/28/2024 3:00 PM STRUCTURAL ARCHITECT - 06/28/2024 4:15 PM STRUCTURAL ARCHITECT Surgery [facility] Operating Room [address] [place] [phone] Shankar Mak MD Urethral Sling, Cystoscopy 06/28/2024 12:53 PM STRUCTURAL ARCHITECT - 06/28/2024 6:15 PM STRUCTURAL ARCHITECT Hospital Encounter [facility] Operating Room [address] [place] [phone] Shankar Mak MD Stress incontinence, female Discharge Disposition: Discharge to home or self care from Last 3 Months Allergies Active Allergy Reactions Criticality Noted Date Comments Acetaminophen-Codeine Nausea And Vomiting,Rash High 04/09/2011 Severe vomiting Adhesive Rash Medium 02/28/2014 Rash if tape on too long / Paper tape is better Adhesive Tape-Silicones Rash Medium 02/28/2014 Rash if tape on too long / Paper tape is better Apple Anaphylaxis High 07/15/2023 Raw apples Carbamazepine Rash High 04/10/2021 SJS Cefuroxime Hives High 04/09/2011 Cephalosporins Rash Medium 07/02/2023 Chlorhexidin-Isopropyl Alcohol Rash Medium 01/08/2024 Chlorhexidine Rash Medium 01/27/2024 Severe rash Clarithromycin Hives High 04/09/2011 Codeine Nausea And Vomiting,Rash High 04/09/2011 Severe vomiting Diphenhydramine Hives High 04/09/2011 Emollient Base Rash,Blisters High 12/09/2023 Dermabond - blisters Etanercept Itching Low 02/24/2022 Gum [place] Unknown 05/12/2023 Gum Kgnyrq-Esbwqq-Moby-Alcoho l Blisters,Rash High 12/17/2021 Mastisol - blisters and spaulding Hydrocodone Hives Medium 03/16/2024 Hydrocodone-Acetaminophen Nausea And Vomiting,Vomiting Low 04/09/2011 Severe vomiting Hydromorphone Hives High 11/21/2019 Imipramine Hives,Rash High 02/28/2014 Meclizine Anaphylaxis,Swelling High 04/09/2011 Throat swelled Methyl Salicylate Unknown 05/12/2023 Oxycodone Unknown Low 02/15/2021 Oxycodone-Acetaminophen Hives High 04/09/2011 Penicillin G Hives Medium Penicillins Hives,Rash High 04/09/2011 Prochlorperazine Anaphylaxis,Swelling High 1 Throat swelling Propoxyphene Nausea & Vomiting Low 04/09/2011 Propoxyphene Hcl Hives High 06/02/2023 Propoxyphene-Acetaminophe n Hives High 04/09/2011 Propranolol Hives,Rash High 04/09/2011 Protein C Concentrate, Human Unknown Low 05/31/2021 Storax Unknown 05/12/2023 Tissue Adhesive Blisters High 05/07/2023 Dermabond Tizanidine Hives,Hallucinations High 07/02/2023 Medications nitroglycerin (NITROSTAT) 0.4 mg SL tabletIndications :acute episode of anginal pain Place 1 tablet (0.4 mg total) under the tongue every 5 (five) minutes as needed 04/03/[address] (Cymbalta) 60 mg capsule Take 1 capsule (60 mg total) by mouth nightly 30 capsule 11 04/25/20 20 Active metoprolol tartrate (LOPRESSOR) 50 mg immediate release tabletIndications :heart Take 1 tablet (50 mg total) by mouth 2 (two) times a day Active montelukast (SINGULAIR) 10 mg tabletIndications :Seasonal Allergic Rhinitis Take 1 tablet (10 mg total) by mouth every morning 05/06/20 21 Active hydrOXYzine (ATARAX) 25 mg tabletIndications :Urticaria Take 1 tablet (25 mg total) by mouth 3 (three) times a day 10/23/19 23 Active albuterol HFA (PROVENTIL HFA,VENTOLIN HFA,PROAIR HFA) 90 mcg/actuation inhalerIndication s:shortness or breath Inhale 1 puff every 4 (four) hours as needed 10/14/19 23 Active EPINEPHrine 0.3 mg/0.3 mL auto-injection syringe INJECT 0.3ML INTRAMUSCULARLY NEEDED FOR ALLERGIC REACTION 03/20/20 23 Active rOPINIRole (REQUIP) 1 mg tabletIndications :Restless Legs Syndrome Take 1 tablet (1 mg total) by mouth 4 (four) times a day 02/18/20 23 Active aspirin 81 mg enteric coated tabletIndications :Myocardial Reinfarction Prevention,hold 24 hours Take 1 tablet (81 mg total) by mouth every morning Active promethazine (PHENERGAN) 25 mg suppositoryIndica tions:Nausea and Vomiting Insert 1 suppository (25 mg total) into the rectum every 6 (six) hours as needed for nausea or vomiting Active triamcinolone (KENALOG) 0.1 % creamIndications: skin rash Apply 1 g topically 2 (two) times a day as needed 12/29/19 24 Active diclofenac sodium (VOLTAREN) 1 % gelIndications:Os teoarthritis Apply 2 g topically 4 (four) times a day as needed Active pramipexole (MIRAPEX) 1 mg tabletIndications :Restless Legs Syndrome Take 1 tablet (1 mg total) by mouth 3 (three) times a day Active fexofenadine (MORGAN) 180 mg tabletIndications :Allergic Rhinitis Take 1 tablet (180 mg total) by mouth every morning Active celecoxib (CeleBREX) 200 mg capsuleIndication s:Osteoarthritis, hold 24 hours Take 1 capsule (200 mg total) by mouth every morning 03/14/[address] (PROTONIX) 40 mg EC tabletIndications :reflux Take 1 tablet (40 mg total) by mouth nightly 03/07/20 24 Active cholecalciferol (VITAMIN D-3) 5,000 unit tabletIndications :supplement 1 tablet (5,000 Units total) every morning Active ferrous sulfate 325 mg (65 mg of elemental iron) tabletIndications :Iron Deficiency Anemia Take 1 tablet (325 mg total) by mouth every morning Active rosuvastatin (CRESTOR) 40 mg tabletIndications :hyperlipidemia Take 1 tablet (40 mg total) by mouth every morning 05/02/20 24 Active ondansetron ODT (ZOFRAN-ODT) 4 mg disintegrating tabletIndications :nausea Take 1 tablet (4 mg total) by mouth every 8 (eight) hours as needed 07/07/20 24 Active golimumab (SIMPONI SUBQ)Indications: ist of the month for RA Inject under the skin Active leflunomide (ARAVA) 20 mg tablet Take 0.5 tablets (10 mg total) by mouth daily 30 tablet 1 07/21/19 25 Active golimumab (Simponi) 50 mg/0.5 mL pen injector INJECT 50 MG (0.5 ML) UNDER THE SKIN EVERY 4 WEEKS 1.5 mL 2 07/25/19 25 Active hydrocortisone 2.5 % cream Apply topically 2 (two) times a day as needed (Rash) Apply twice daily to face as needed for rash 15 g 09/02/19 25 Active Active Problems Problem Noted Date Diagnosed Date Stress incontinence, female 06/21/2024 Presence of Amulet left atrial appendage closure device 02/09/2024 Acute chest pain 10/30/2023 Dysphagia 06/05/2023 Dyspepsia 06/05/2023 Diarrhea 06/05/2023 Encounter for long-term (cur rent) use of high-risk medication 02/07/2021 Assessment & Plan (07/28/2024 11:19 AM STRUCTURAL ARCHITECT): Monitor routine labs while on immunosuppressive medications. To have labs drawn by PCP tomorrow. 06/2020: Neg Hep B/C 03/2021: Neg QuantGold Assessment & Plan (04/20/2024 12:33 PM CDT): Monitor routine labs while on immunosuppressive medications. 04/05 labs stable. 06/2020: Neg Hep B/C 03/2021: Neg QuantGold Assessment & Plan (03/23/2024 11:29 AM CDT): Monitor routine labs while on immunosuppressive medications. 01/2024 CMP stable with CBC showing anemia. To have repeat CBC today. 06/2020: Neg Hep B/C 03/2021: Neg QuantGold Assessment & Plan (09/22/2023 12:26 PM STRUCTURAL ARCHITECT): Monitor routine labs while on immunosuppressive medications. Labs today. 06/2020: Neg Hep B/C 03/2021: Neg QuantGold Assessment & Plan (03/12/2023 12:29 PM CDT): Monitor routine labs while on immunosuppressive medications. To obtain labs in 4 weeks. 06/2020: Neg Hep B/C 03/2021: Neg QuantGold Assessment & Plan (12/11/2022 12:53 PM CDT): Monitor routine labs while on immunosuppressive medications. Underwent recent labs for pre-op clearance - will request results. 06/2020: Neg Hep B/C 03/2021: Neg QuantGold Assessment & Plan (09/11/2022 12:48 PM STRUCTURAL ARCHITECT): Monitor routine labs while on immunosuppressive medications. Recent 08/20 labs stable. 06/2020: Neg Hep B/C 03/2021: Neg QuantGold Assessment & Plan (07/01/2022 9:25 AM STRUCTURAL ARCHITECT): Monitor routine labs while on immunosuppressive medications. 06/2020: Neg Hep B/C 03/2021: Neg QuantGold Assessment & Plan (05/02/2022 3:45 PM CDT): Monitor routine labs while on immunosuppressive medications. Recent 04/30 CBC/CMP were stable per patient portal lab results. 06/2020: Neg Hep B/C 03/2021: Neg QuantGold Assessment & Plan (01/28/2022 10:54 AM CDT): Monitor routine labs while on immunosuppressive medications. Had recent labs on 01/23 reviewed on patient's medical portal - to repeat labs in 2 months. 06/2020: Neg Hep B/C 03/2021: Neg QuantGold Assessment & Plan (12/17/2021 8:14 AM CDT): Monitor routine labs while on immunosuppressive medications. 06/2020: Neg Hep B/C 03/2021: Neg QuantGold Assessment & Plan (11/14/2021 3:07 PM CDT): Monitor routine labs while on immunosuppressive medications. 06/2020: Neg Hep B/C 03/2021: Neg QuantGold Assessment & Plan (08/19/2021 2:31 PM STRUCTURAL ARCHITECT): Monitor routine labs while on immunosuppressive medications. 06/2020: Neg Hep B/C 03/2021: Neg QuantGold Assessment & Plan (05/13/2021 12:04 PM CDT): Monitor routine labs while on immunosuppressive medications. 06/2020: Neg Hep B/C Assessment & Plan (04/12/2021 8:55 AM CDT): Monitor routine labs while on immunosuppressive medications. 06/2020: Neg Hep B/C Assessment & Plan (03/20/2021 4:20 PM CDT): Monitor routine labs while on immunosuppressive medications. To check QuantGold. 06/2020: Neg Hep B/C Assessment & Plan (02/27/2021 11:03 AM CDT): Monitor routine labs while on immunosuppressive medications. 06/2020: Neg Hep B/C Assessment & Plan (02/07/2021 10:00 AM CDT): Monitor routine labs while on immunosuppressive medications. Dizziness 02/07/2021 Assessment & Plan (03/20/2021 8:41 PM CDT): CTA head/neck 02/10: 1. No acute intracranial abnormality. 2. Normal CT angiogram of the head and neck without evidence of carotid or vertebral artery dissection. 3. Left cerebellar hemisphere calcification is indeterminant and could be further evaluated with MRI. MRI brain/cervical spine 02/14: 1. No acute intracranial abnormality.Minimal scattered periventricular and subcortical FLAIR signal abnormalities, nonspecific, but likely sequela of small vessel ischemic changes. 2. Degenerative changes of the cervical spine as detailed in chart, worst at C5- C6 Hospitalized for total of 8 days, at [facility] and then [facility]. Had CT brain/neck angio that were unremarkable. Brain MRI as well. Patient Neurology was consulted but could not find evidence of a stroke despite her symptoms of dizziness, headache, weakness. She states her PCP suspects she may have had a TIA and would like her to be anticoagulated. She has not been able to get into Dr. Morris's office and is trying to see a new neurologist. Dizziness symptoms have mostly abated and she was discharged from Home Health. Assessment & Plan (02/27/2021 11:25 AM CDT): CTA head/neck 02/10: 1. No acute intracranial abnormality. 2. Normal CT angiogram of the head and neck without evidence of carotid or vertebral artery dissection. 3. Left cerebellar hemisphere calcification is indeterminant and could be further evaluated with MRI. MRI brain/cervical spine 02/14: 1. No acute intracranial abnormality.Minimal scattered periventricular and subcortical FLAIR signal abnormalities, nonspecific, but likely sequela of small vessel ischemic changes. 2. Degenerative changes of the cervical spine as detailed in chart, worst at C5- C6 Hospitalized for total of 8 days, at [facility] and then [facility]. Had CT brain/neck angio that were unremarkable. Brain MRI as well. Patient Neurology was consulted but could not find evidence of a stroke despite her symptoms of dizziness, headache, weakness. She states her PCP suspects she may have had a TIA. She currently has home health 1-2 times weekly and is trying to set up appointment with a neurologist for further evaluation. Continues to have headache but dizziness is improved. Assessment & Plan (02/07/2021 1:10 PM CDT): Received neck adjustment by chiropractor on Thursday with immediate increase in dizziness, off-balance sensations, headaches. Reports she was unable to stand up immediately following the adjustment and has not noticed any improvement since that time. Headaches are now daily and located in the parietal region. Significant nausea with slightest head movement. Pain along neck and unable to extend or flex neck due to pain. Recommend ER visit for further evaluation of potential vertebral dissection. Seen with Dr. Chan. Bilateral hip pain 07/24/2020 Assessment & Plan (07/24/2020 12:34 PM STRUCTURAL ARCHITECT): Her greatest pain complaint at this time is B hip pain which began just over two weeks ago. She does note a prior h/o bursitis and her pain recently is predominantly felt laterally, however she believes that this pain is different than that she experienced with bursitis in the past. XR B hips shows mild OA. Recommend trial of PT. Reflex sympathetic dystrophy 07/24/2020 Assessment & Plan (07/01/2022 2:12 PM STRUCTURAL ARCHITECT): Self weaned off Cymbalta 2 days ago after decreasing to 30mg from 60mg. Also has not been using her TENs unit nor taking Creon before meals. Now with diffuse muscle bed and joint tenderness. Recommend she start using her TENs unit routinely, begin to exercise as able (once released from lumbar surgery) and restart 30mg Cymbalta once daily x 7 days then increase to 60mg daily. Return in 2 months. Assessment & Plan (11/14/2021 3:12 PM CDT): Recommend she start using her TENs unit and try to walk a mile each day, working up to 2 miles over time. Suggested she go for multiple short walks each day. She is considering joint the gym again where she can participate in aquatic therapy. Currently on 90mg cymbalta daily - suggested she speak with her PCP about potentially switching to Savella 50mg BID. Assessment & Plan (02/27/2021 11:03 AM CDT): Off flexeril and lyrica. TENs unit is still packed in boxes. Began carbamazepine and takes PRN. Recommend 5mg flexeril at bedtime. Find TENs unit and begin to use. Assessment & Plan (02/07/2021 10:01 AM CDT): Off flexeril and lyrica. TENs unit is still packed in boxes. Recommend 5mg flexeril at bedtime. Find TENs unit and begin to use. Assessment & Plan (01/08/2021 12:34 PM CDT): Patient self d/c'ed due to reported 'passing out' randomly which has not recurred since she stopped the medication. Also notes she has been holding Flexeril for the last 2 weeks and now has increased diffuse muscle and joint pain. I suspect Lyrica and flexeril were offering some benefit for her RSD/fibromyalgia but the SEs were less than desirable. She has a TENs unit but this is currently packed away for the move that is not occurring for another 3 weeks. Encouraged her to get it out and start using it and discuss alternative therapies with her PCP. Assessment & Plan (11/28/2020 12:17 PM CDT): Reports she is on Lyrica 100mg BID. Suspect this may be source of new onset fatigue. Recommend decreasing to 50mg AM and 100mg qhs in 2 weeks. To discuss with PCP. Assessment & Plan (11/21/2020 3:49 PM CDT): Fatigue with sensation of pain all over and widespread soft tissue tenderness on exam c/w fibromyalgia. She had been started on Lyrica prior to her initial visit, this was discontinued yesterday due to concern for weight gain. She is also taking Cymbalta 60 mg daily which was prescribed for depression. Gabapentin in the past caused n/v. Encourage routine exercise. Assessment & Plan (08/27/2020 2:41 PM STRUCTURAL ARCHITECT): Fatigue with sensation of pain all over and widespread soft tissue tenderness on exam c/w fibromyalgia. She had been started on Lyrica prior to her initial visit, this was discontinued yesterday due to concern for weight gain. She is also taking Cymbalta 60 mg daily which was prescribed for depression. Gabapentin in the past caused n/v. Encourage routine exercise. Assessment & Plan (07/24/2020 12:36 PM STRUCTURAL ARCHITECT): Fatigue with sensation of pain all over and widespread soft tissue tenderness on exam c/w fibromyalgia. She had been started on Lyrica prior to her initial visit, this was discontinued yesterday due to concern for weight gain. She is also taking Cymbalta 60 mg daily which was prescribed for depression. Gabapentin in the past caused n/v. Encourage routine exercise. Osteoarthritis of multiple joints 07/24/2020 Assessment & Plan (11/21/2020 3:49 PM CDT): Multifocal OA (hands and hips) per recent xrays. Continue Tylenol 500 mg qid. Continue PT. Assessment & Plan (08/28/2020 12:26 PM STRUCTURAL ARCHITECT): Multifocal OA (hands and hips) per recent xrays. Continue Tylenol 500 mg qid. Continue PT. Assessment & Plan (07/24/2020 12:41 PM STRUCTURAL ARCHITECT): Multifocal OA (hands and hips) per recent xrays. Continue Tylenol 500 mg qid. Recommend PT as above. Seronegative rheumatoid arthritis 07/06/2020 Overview (10/01/2022): Labs 07/06/2020 AVISE: JANNET 1:160 homogeneous 04/2022 AVISE: JANNET 1:160 Xrays 07/06/2020 XR B feet - negative XR B hands - mild multifocal OA XR B hips - mild OA Ultrasound 07/09/2020 US L hand/wrist: mild thickening/effusion with grade 2 PD wrist. Mild/moderate 2nd and 4th MCP, moderate 3rd MCP and 2nd-3rd PIP thickening Left hand/wrist US (09/29/2022): 1) Moderate synovial thickening/effusion with gr 2 doppler at the wrist. Marked 2,3 pip synovial thickening on examination which will have to be correlated clinically. Comparison to 07/09/20 the mcps are better while the pips have greater synovial thickening. Assessment & Plan (07/28/2024 11:22 AM STRUCTURAL ARCHITECT): Off MTX (oral ulcers/hair thinning). Remains on daily leflunomide and monthly Simponi injections. Had to reduce leflunomide to 10mg daily last month due to nausea/emesis side effect, which have resolved. Hands/feet are better with less swelling and pain. Developed fissure along the L heel for which she has begun to apply Crisco and will be using occlusive dressing today. Minimal amount of synovitis on exam with several tender peripheral joints. Suspect RSD is contributing to her joint pain as she overall appears better than last visit. Continue 10mg leflunomide daily and Simponi SQ q4 weeks. PCP has ordered labs for work up of her new onset lightheadedness - will review once she sends results. Return in 3 months, sooner if needed. Assessment & Plan (04/20/2024 12:39 PM CDT): Stopped MTX after last visit due to oral ulcers/hair thinning. Began 20mg leflunomide once daily and tolerating well. Continued Simponi injections. She completed a 20mg prednisone taper which offered mild reduction in her symptoms but hands have become swollen/painful again. She admits to painting several rooms in her apartment recently and has 2 rooms left to pain. Additionally she suffered another TIA last month. Will have her continued 20mg leflunomide daily to allow more time to take effect as well as Simponi SQ q4 weeks. Due to burden of disease, will administer kenalog 100 mg IM injection, in office, today. Patient is aware of SE of triamcinolone injection including but not limited to HTN, increase blood glucose, glaucoma and osteopenia with snf use of steroids. She was strongly encouraged to take a week off from painting to allow the steroids to work. Labs at next visit. Return in 3 months, sooner if needed. Assessment & Plan (03/23/2024 11:44 AM CDT): Has not been able to take MTX or Simponi SQ regularly this summer due to cardiac procedures/surgeries in December and then January. Notes improvement in energy level following the replacement of her pacemaker and implantation of an amulet device in the left atria. Now takes celebrex daily as she is off blood thinners. Hands/feet are hurting with AM swelling in her hands (phone image confirms). Synovitis present on exam as well. As she reports hair thinning and oral ulcers on MTX, despite 2mg FA daily, will have her discontinue. Recommend initiating treatment with leflunomide 20 mg po daily (to start at 10mg daily initially). Reviewed potential adverse effects including diarrhea, nausea, and hair loss. Warned to watch for development of any rash and to stop taking and call should this occur. She was amenable to the plan. Will have her remain on Simponi SQ q4 weeks and continue 1mg FA daily for hair strengthening. Will send in prednisone taper to address her current symptoms. To return in 4-5 weeks, sooner if needed. Assessment & Plan (09/22/2023 12:32 PM STRUCTURAL ARCHITECT): A 09/2022 repeat left hand/wrist US demonstrated resolution of synovial thickening in the MCP joints with continued grade 2 doppler at the wrist and marked synovial thickening of the 2-3rd PIP joints. She remains on 15mg MTX weekly and monthly Simponi aria injections. Reports 2 TIAs in May and now requiring cardiac surgery to remove a pacemaker lead that is inactive in order to get MRIs - surgery may be scheduled next month. Joints are worse, hands ache, hips are sore and 'bones hurt' which affects her ability to sleep. There is increased synovitis on exam with diffuse amount of tender peripheral joints. Do not suspect her RA is causing all of her joint symptoms, likely her chronic pain syndrome is contributing. Will send in script for prednisone - 20mg daily x 5d, 10mg daily x 5d - if no joint improvement then this would confirm the symptoms are more likely from her RSD. Continue 15mg MTX weekly and monthly Simponi injections. Discussed scheduling her cardiac surgery 3 weeks after a Simponi injection and holding MTX for 1 week after the surgery. Remain off NSAIDs due to use of coumadin. Return in 3 months, sooner if needed. Seen with Dr. Caceres who will be assuming care of patient as Dr. Chan has retired. Assessment & Plan (03/12/2023 12:35 PM CDT): A 09/2022 repeat left hand/wrist US demonstrated resolution of synovial thickening in the MCP joints with continued grade 2 doppler at the wrist and marked synovial thickening of the 2-3rd PIP joints. She continued 15mg MTX weekly and monthly Simponi aria injections since last visit but held for a short time following her R hip/SI joint fusion on 12/17. Trying to schedule her right knee replacement. Did not have the left hip/SI joint fused as it was felt unnecessary due to improved symptoms. Hands have felt better since last telehealth - only 2 major flare ups of pain. Mild amount of synovitis on exam. Ttp of the right lateral malleolus with slight soft tissue fullness. RA appears stable at this time. Continue 15mg MTX weekly and monthly Simponi injections. Remain off NSAIDs due to use of coumadin. Recommend ice application to right outer ankle to help with pain/fullness. To obtain labs in 4 weeks. Return in 4 months, sooner if needed. Assessment & Plan (12/11/2022 1:53 PM CDT): Continued 15mg MTX weekly and monthly Simponi injections - although holding both in preparation for SI joint fusion on 12/17. Reports constant pain in her hands/feet but notes the buprenorphrine patch reduces the pain. States her joint pain/swelling worsens with use. A 09/2022 repeat left hand/wrist US demonstrated resolution of synovial thickening in the MCP joints with continued grade 2 doppler at the wrist and marked synovial thickening of the 2-3rd PIP joints. She was previously on PO diclofenac but this was recently changed to celebrex 100mg BID. She was also placed on Coumadin last month. Encouraged her to restart Prilosec daily for GI protection as she remains on NSAID therapy despite use of Coumadin. Her joint symptoms are still more likely RSD/OA related as she notes worsening symptoms with use and improvement on NSAIDs and pain patches. Continue 15mg MTX weekly and monthly Simponi injections - to restart MTX 1 week after surgery and Simponi injections 2 weeks after surgery. To obtain recent labs. Return in 3 months, sooner if needed. Assessment & Plan (09/11/2022 12:48 PM STRUCTURAL ARCHITECT): Continued 15mg MTX weekly and monthly Simponi injections. Received prednisone taper after last telehealth visit due to reported severe flare up of joint pain/swelling. Subsequently developed pneumonia received additional prednisone, antibiotics and then another Medrol Dosepak with the hand haler. Continues to note hand and foot pain worse with activity and feels like Simponi works for the 1st week but then loses effect. Minimal amount of synovitis on exam with diffuse amount of peripheral joint pain and muscle bed tenderness. Suspect her RSD is contributing to her current pain complaints. Will order a left hand/wrist US to evaluate for any occult inflammation. Continue 15mg MTX weekly and monthly Simponi aria injections at this time. Reviewed recent CMP/CBC which were stable. Will call her with results of hand US. Return in 3 months, sooner if needed. Seen with Dr. Chan. Assessment & Plan (08/06/2022 9:00 PM STRUCTURAL ARCHITECT): Has continued 15mg MTX weekly as well as simponi monthly injections and increased back to 60mg cymbalta daily (RSD). Reports increasing fatigue/exhaustion for the past 10 days or so with pain/swelling in her hands/feet. Notes she was nearly bedridden for 6 of those days. Per patient she had recent labs through PCP's office and told she still had high EBV numbers and her symptoms could be either due to a continued infection or she could be having an RA flare. Denies fever, chills, dyspnea or sore throat. Will send in prednisone taper for her to take which would potentially help EBV infection and certainly improve an RA flare. Will request recent labs from PCP's office as we have no access to them through [facility]. She already had an OV scheduled for 09/02 - will re-evaluate joints at that time and consider repeat hand US if synovitis is absent/minimal on exam but she is still noting pain -to evaluate for underlying inflammation. She may require change in biologic medication. Assessment & Plan (07/01/2022 2:09 PM STRUCTURAL ARCHITECT): CDAI 37, high Off Enbrel due to ISRs. Continued MTX and Simponi injections. Noted improvement after prednisone taper at last visit. Joints were feeling good until a few weeks ago when she returned from a trip to [place] an self weaned off Cymbalta. Now with pain in her hands/feet and difficulty walking. Minimal amount of synovitis on exam with diffuse amount of peripheral joint tenderness. RA appears well controlled at this time. Suspect her RSD is contributing to her high CDAI and pain, especially as she discontinued Cymbalta. Continue monthly Simponi injections and 15mg MTX weekly. Routine labs today. Return in 2 months. Sooner if needed. Assessment & Plan (05/05/2022 9:09 AM CDT): CDAI 38, high Off Enbrel due to ISRs. Continued MTX and began Simponi injections in February and noted initial improvement in joint pain with recent worsening following her L2-3 fusion surgery last month. Now with diffuse arthralgias and myalgias. Of note she self decreased cymbalta to 60mg daily from 90mg daily. She is to follow up with her tile grinder soon due to low BP following her surgery, persistent dizziness and concern for POTs by her PCP. Synovitis present on exam with diffuse peripheral joints and muscle beds. Appears to be in a flare up. Will provide prednisone taper, continue Simponi injections monthly and 15mg MTX weekly - will monitor for sustained joint control following prednisone taper. Reviewed her recent labs. Return in 2 months. Sooner if needed. Assessment & Plan (01/28/2022 10:53 AM CDT): Had hernia repair in late August and held MTX and Enbrel for 4 weeks, restarted medications and then held again for recent pacemaker adjustment/pouch formation in early November. Continues to develop enlarging reddened area with itching around Enbrel injection site despite cold pack application. Currently being worked up/treated for pancreatitis. Does report joint benefit still with TNFi. Minimal amount of synovitis on exam with diffuse amount of joint and muscle pain. Suspect her RDS is contributing greatly to her high CDAI (22) as she rates joint pain only at 3/10. Due to current pancreatitis will have her hold MTX for the next 4 weeks until it is resolved. To stop Enbrel due to ISRs and discussed starting treatment with monthly Simponi injections - she was amenable to the plan and is aware to also not start for 1 month. Return in 2 months. Sooner if needed. Seen with Dr. Chan. Assessment & Plan (12/17/2021 12:31 PM CDT): In another flare up of her RA and RSD/fibromyalgia. Had hernia repair in late August and held MTX and Enbrel for 4 weeks, restarted medications and then held again for recent pacemaker adjustment/pouch formation in early November. Now getting redness/itching around Enbrel injection site. Reports diffuse joint/muscle pain with moderate fatigue. Prior to holding her medications she did note improvement in symptoms. Moderate synovitis on exam with diffuse joint and muscle pain. No ISR visualized over the LLQ of the abdomen. Appears to be in a flare. Due to burden of disease, will administer kenalog 100 mg IM injection, in office, today. Patient made aware of SE of triamcinolone injection including but not limited to HTN, increase blood glucose, glaucoma and osteopenia with snf use of steroids. Continue 15mg MTX weekly and Enbrel weekly injections - to apply ice 3-5 minutes prior to Enbrel injection to see if the redness/itching improves (will call if this does not help). Already takes zyrtec daily and cannot take benadryl. Had labs 1 month ago - will recheck at next visit. Return in 4-6 weeks. Sooner if needed. Consider another TNFi if she cannot tolerate Enbrel. Assessment & Plan (11/14/2021 3:11 PM CDT): Currently in a flare up of her RA and RSD/fibromyalgia. Had hernia repair in late August and held MTX and Enbrel for 4 weeks and only recently restarted them. To have pacemaker adjustment/pouch formation surgery on 11/18 and will have to hold the medications again. Reports diffuse joint/muscle pain with moderate fatigue and weakness. Prior to holding her medications she noted improvement in symptoms. Moderate synovitis on exam with diffuse joint and muscle pain. Appears to be in a flare. Recommend continuing MTX but she should hold her next Enbrel injection (she already held this week's dose as well) and restart the week after her surgery. Given the proximity of the upcoming surgery will not provide prednisone today. Will check routine labs today and have her return in 4 weeks at which time we can try a prednisone taper if she is still in a flare and healed from her surgery. She was amenable to the plan. Discussed with Dr. Chan. Assessment & Plan (08/19/2021 9:00 PM STRUCTURAL ARCHITECT): CDAI 25. On 15mg MTX weekly but has only taken 3 Enbrel injections so far. Just completed a medrol dose pack from her tile grinder due to inflammation around her heart (pericarditis?). States joints are feeling well but has been busy and not paying attention to joints. Synovitis present on exam with several tender peripheral joints. Continue weekly Enbrel injections to allow more time to take effect and weekly 15mg MTX as well as 1mg folic acid daily. Reviewed recent labs - stable CMP/CBC. Return in 3 months, sooner if needed. Assessment & Plan (05/14/2021 12:45 PM CDT): CDAI 15. On 15mg MTX weekly and Humira injections (2 so far) - held Humira yesterday. Has noticed improvement in joint complaints but developed a 'massive' headache over the last several weeks that has not resolved (of note was in [place] helping care for her adult daughter post surgery). Also with BP/palpitation symptoms and urinary incontinence. Has followed up with PCP and tile grinder - started Ubrelvy for JACKSON and tile grinder is to adjust her pacemaker on 05/23. Minimal amount of synovitis on exam with few tender peripheral joints. Will have her discontinue Humira at this time due to her concern for relatedness of her symptoms, although Humira can cause headaches it is not generally this severe and urinary incontinence/palpitations are not typical of this medication. Has she has noted joint benefit with only 2 injections discussed switching to Enbrel weekly injections and she was amenable to the plan. Continue 15mg MTX and 1mg folic acid daily. Routine labs at next visit. Return in 5 weeks, sooner if needed. Seen with Dr. Chan. Assessment & Plan (04/12/2021 12:21 PM CDT): CDAI 14. On 15mg MTX weekly and tolerating well. Feeling better recently. Decreased synovitis on exam with fewer tender joints Continue 15mg MTX and 1mg folic acid daily. She has not started Humira yet as it was delivered only yesterday. Suggested she start on the so she will only need to take 1 pen with her during her trip to [place] (leaves and returns around the ). A letter was provided for [facility] to allow Humira to be brought as a carry on. She may call [facility] to schedule injection with a nurse ambassador before she leaves. Routine labs at next visit. Return in 2 months, sooner if needed. Assessment & Plan (03/20/2021 8:39 PM CDT): Still with moderate joint pain. On 15mg MTX weekly and tolerating well but notes no difference in joint symptoms. Now off prednisone. Appears to have slight decrease in synovitis on exam as compared to late January however there is still a moderate amount present and a diffuse number of joint tenderness. Continue 15mg MTX and 1mg folic acid daily. May take 1300mg Tylenol Arthritis once cleared to take by PCP/neurologist. Due to continued synovitis on exam and persistent tender joints would recommend escalating to a TNF inhibitor. Discussed the potential side effects of Humira and Enbrel, including but not limited to infections, rash, injection site reactions. She was amenable to the plan and would be fine with either depending on insurance coverage. Will start approval process pending TB test. Routine labs today. Return in 4 weeks. Sooner if needed. Seen with Dr. Chan. Assessment & Plan (02/27/2021 11:05 AM CDT): Hurting worse today. On 12.5mg MTX weekly and tolerating well. Moderate synovitis and joint tenderness on exam. Will increase to 15mg MTX tonight and continue 1mg folic acid daily. Provided prednisone taper 10mg x 7 days then 5mg x 7 days. May take 1300mg Tylenol Arthritis once cleared to take by PCP/neurologist. Routine labs at next visit. Return in 2 weeks. Sooner if needed. Seen with Dr. Chan. Assessment & Plan (02/07/2021 1:04 PM CDT): Hurting worse today. On 10mg MTX weekly and tolerating well. Moderate synovitis and joint tenderness on exam. Will increase to 12.5mg MTX weekly x 2 weeks then increase to 15mg weekly as tolerated. Provided written instructions although this may not have been received as she went by ambulance to the ER. Continue 1300mg Tylenol Arthritis once cleared to take by ER. Routine labs when able. Return in 4 weeks. Sooner if needed. Assessment & Plan (01/08/2021 12:59 PM CDT): CDAI 16, moderate Restarted MTX at 5mg once weekly and has been tolerating well. Suspect the Lyrica was causing her SE previously, which she is now off and appears to be getting over an RA/fibromyalgia flare. Reports diffuse joint/muscle pain, joint swelling and increased fatigue symptoms. Minimal amount of synovitis on exam with numerous tender peripheral joints. Continues to have some synovitis on exam, although RSD/fibromyalgia appears to be contributing to her current symptoms. Recommend increasing MTX to 7.5mg x 2 weeks then to 10mg for 2 weeks, continue 1mg folic acid. Routine labs today. Return in 4 weeks. Will re-evaluate at that time if symptoms are related to RA vs RSD and if she needs to be increased on her methotrexate. Written instructions for methotrexate dosing provided. Assessment & Plan (11/28/2020 12:12 PM CDT): Discussed course of methotrexate and addressed her concerns about blood work/SEs of drug. At this time I am not concerned about her decreased RBC/WBC and elevated MCV. Additionally switching to an alternative drug this early in the course of establishing care (would be 3rd drug tried) would not be advisable at this time. Would recommend holding methotrexate for the next 2 weeks, monitoring symptoms. After this time, would decrease lyrica to 50mg AM/100mg qhs (after discussing with PCP) and restart 5mg methotrexate once weekly x 4 weeks. Monitor symptoms - if they improve off MTX and return when MTX restarted then consider alternative medication. If symptoms persist and improve with decrease in Lyrica then may continue MTX with slow gradual increase over time. Patient was amenable to the plan. Will repeat CBC/CMP. Return in 6 weeks. Sooner if needed. Seen with Dr. Chan. Assessment & Plan (11/23/2020 9:29 AM CDT): High cdai with far more tender than swollen joints. On methotrexate at a very low dose due to her concern re: side effects. She was prescribed a dose of 5 mg po weekly, however she has only been taking 2.5 mg weekly. She has tolerated mtx thus far without AE, will check labs today as below. At this time she is agreeable to increasing to the standard starting dose of 10 mg weekly, continue folic acid 1 mg daily. Plan for follow up in 4 weeks to reassess or sooner as needed. Assessment & Plan (08/28/2020 12:26 PM STRUCTURAL ARCHITECT): Our workup showed an JANNET 1:160 but otherwise negative serologies. XR revealed mild OA hands and hips and L hand/wrist ultrasound mild to moderate synovial thickening. Overall there is concern for lupus given her h/o CTD symptoms, however there is not sufficient serologic criteria to establish this diagnosis. At this time favor SNRA as an overlap with fibromyalgia. Failed hydroxychloroquine due to side effects. Will initiate treatment with methotrexate at a very low dose (due to her concern re: side effects) of just 5 mg po weekly with folic acid 1 mg daily. Reviewed potential adverse effects including nausea, fatigue, and oral ulcers. Warned to watch for development of any rash and to stop taking and call should this occur. Reviewed need for routine lab monitoring throughout the duration of taking this medication, initially monthly and then quarterly as long as they remain on the medication. Plan for follow up in 4 weeks to reassess or sooner as needed. Assessment & Plan (07/24/2020 12:33 PM STRUCTURAL ARCHITECT): 54yoF referred for evaluation due to +JANNET and ds DNA 13. She complains of widespread arthralgias and myalgias as well as fatigue, hair thinning, intermittent rashes worsened with sun exposure, oral ulcers, and sicca symptoms. Her exam reveals many tender joints and tender points with swelling in B hands 2nd-3rd PIPs. Our workup showed an JANNET 1:160 but otherwise negative serologies. XR revealed mild OA hands and hips and L hand/wrist ultrasound mild to moderate synovial thickening. Overall there is concern for lupus given her h/o CTD symptoms, however there is not sufficient serologic criteria to establish this diagnosis. At this time favor SNRA as an overlap with fibromyalgia, however will monitor. Recommend starting treatment with hydroxychloroquine 200 mg once daily. Warned to watch for development of a rash. Discussed SE including but not limited to dizziness, bloating, and in rare cases, retinal toxicity. Patient instructed to have a baseline eye exam and routine exams throughout the duration of taking hydroxychloroquine. Plan for follow up in 4 weeks to reassess. Assessment & Plan (07/06/2020 4:49 PM STRUCTURAL ARCHITECT): 54yoF referred for evaluation due to +JANNET and ds DNA 13. She complains of widespread arthralgias and myalgias as well as fatigue, hair thinning, intermittent rashes worsened with sun exposure, oral ulcers, and sicca symptoms. Her exam reveals many tender joints and tender points with swelling in B hands 2nd-3rd PIPs. Overall there is concern for lupus given her previous serologies and CTD symptoms. Consideration for overlap with fibromyalgia. To fully evaluate will check appropriate serologies, xrays, and ultrasound with plan for follow up in 2 weeks to review results and to discuss treatment options. Palpitations 12/13/2019 Overview (12/13/2019): Added automatically from request for surgery [id number] SVT (supraventricular tachycardia) 12/13/2019 Overview (12/13/2019): Added automatically from request for surgery [id number] A-fib 11/24/2019 Overview (11/24/2019): Added automatically from request for surgery [id number] Laryngopharyngeal reflux (LPR) 08/04/2018 Assessment & Plan (10/20/2018 12:26 PM CDT): No longer taking the omeprazole and ranitidine as prescribed. Patient is no longer experiencing any coughing, sinonasal or throat symptoms. Assessment & Plan (08/04/2018 1:17 PM STRUCTURAL ARCHITECT): Add omeprazole 40 mg Q morning 30 min prior to meal. Continue with ranitidine 300 mg q.h.s. Patient was provided with educational material regarding reflux precautions. Patient was instructed to refrain from eating a meal approximately 3 hours prior to bedtime. Patient was instructed to elevate the head of the bed by approximately 8 inches. Patient was to refrain from consuming spicy greasy fatty foods, dairy products, and excessive caffeine use. Patient was also advised to increase water consumption. Patient was also instructed on weight reduction and exercise regimen. Patient was also instructed on the importance of compliance with medications. Possible need for further diagnostic testing considering barium swallow study versus upper endoscopy. Chronic cough 08/04/2018 Assessment & Plan (10/20/2018 12:25 PM CDT): Coughing symptoms have since resolved. Patient states ever since she underwent cardiac ablation she has not had any coughing related symptoms. It is very possible that there was some vagal stimulation pertaining to her arrhythmia. Patient is no longer taking reflux medications and does not feel the need to resume. Assessment & Plan (08/04/2018 1:11 PM STRUCTURAL ARCHITECT): Patient's chronic cough is most likely secondary to poorly controlled extra esophageal reflux disease. Patient admits to poor dietary choices and increase in weight gain over the past year. Patient will be placed on a PPI every morning 30 min prior to meal and H2 darshana at night. Patient was also provided with educational material pertaining to reflux precautions and lifestyle changes. Patient was made aware that the importance of maintaining compliance with the treatment in order to determine its effectiveness. Patient should continue with her pulmonary workup in undergo a methacholine challenge test to make sure there is no underlying reactive airway disease contributing to her cough. alf current use of anticoagulant therapy 1 08/28/2014 Deep vein thrombosis (DVT) 06/27/2015 Hyperthyroidism 08/31/2012 Chronic adrenal insufficiency 08/30/2012 Social History Tobacco Use Types Packs/Day Years Used Date Smoking Tobacco: Never Passive Smoke Exposure: Past Smokeless Tobacco: Never Tobacco Cessation:Counseling Given: Not Answered Alcohol Use Standard Drinks/Week Comments No 0 (1 standard drink = 0.6 oz pur e alcohol) [facility] [employer] Answer Date Recorded In the past 12 months has [employer], gas, oil, or water Dress Code threatened to shut off services in your home? Yes 02/11/2024 Social Connection and Isolat ion Panel [NHANES] Answer Date Recorded In a typical week, how many times do you talk on the phone with family, friends, or neighbors? Once a week 02/11/2024 How often do you get togethe r with friends or relatives? Once a week 02/11/2024 How often do you attend chur ch or scientology services? More than 4 times per year 02/11/2024 Do you belong to any clubs o r organizations such as shinto groups, unions, fraternal or athletic groups, or school groups? No 02/11/2024 How often do you attend meet ings of the clubs or organizations you belong to? Never 02/11/2024 Are you , , di vorced, , never , or living with a partner? 02/11/2024 AUDIT-C Answer Date Recorded Q1: How often do you have a drink containing alcohol? Never 08/02/2024 Q2: How many drinks containi ng alcohol do you have on a typical day when you are drinking? Patient does not drink Q3: How often do you have si x or more drinks on one occasion? Never 08/02/2024 Overall Financial Resource Strain (CARDIA) Answe r Date Recorded How hard is it for you to pa y for the very basics like food, housing, medical care, and heating? Somewhat hard 02/11/2024 Hunger Vital Sign Answer Date Recorded Within the past 12 months, y ou worried that your food would run out before you got the money to buy more. Never true 02/11/20 24 Within the past 12 months, t he food you bought just didn't last and you didn't have money to get more. Never true 02/11/2024 PRAPARE - Transportation Answer Date Re corded In the past 12 months, has l ack of transportation kept you from medical appointments or from getting medications? No 01/18 In the past 12 months, has l ack of transportation kept you from meetings, work, or from getting things needed for daily living? No 02/11/2024 Housing Stability Vital Sign Answer Thang e Recorded In the last 12 months, was t here a time when you were not able to pay the mortgage or rent on time? No 11/02/2023 In the last 12 months, how many places have you lived? 1 11/02/2023 In the last 12 months, was t here a time when you did not have a steady place to sleep or slept in a group home (including now)? No 11/02/2023 Housing Stability Vital Sign Answer Thang e Recorded In the last 12 months, was t here a time when you were not able to pay the mortgage or rent on time? No 02/11/2024 In the past 12 months, how m any times have you moved where you were living? 0 02/11/2024 At any time in the past 12 m [facility], were you homeless or living in a group home (including now)? No 02/11/2024 Personal Safety Answer Date Recorded Have you ever been in or are you currently in a harmful physical or emotional relationship or is someone making you feel afraid or unsafe? Denies 08/02/2024 Comments No Sex and Gender Information Value Date Recorded Sex Assigned at Not on file Legal Sex Female 12:21 AM STRUCTURAL ARCHITECT Gender Identity Not on file Sexual Orientation Not on file Last Filed Vital Signs Vital Sign Reading Time Taken Comments Blood Pressure 125/71 08/25/2024 8:38 AM STRUCTURAL ARCHITECT Pulse 73 08/25/2024 8:38 AM STRUCTURAL ARCHITECT Temperature 36 C (96.8 F) 08/02/2024 2:20 PM STRUCTURAL ARCHITECT Respiratory Rate 10 08/02/2024 2:40 PM STRUCTURAL ARCHITECT Oxygen Saturation 97% 08/25/2024 8:38 AM STRUCTURAL ARCHITECT Inhaled Oxygen Concentration - - Weight 88.6 kg (195 lb 6.4 oz) 08/23/2024 11:23 AM STRUCTURAL ARCHITECT Height 172.7 cm (5' 8 ) 08/23/2024 11:23 AM STRUCTURAL ARCHITECT Body Mass Index 29.71 08/23/2024 11:23 AM STRUCTURAL ARCHITECT Plan of Treatment Not on file Goals Goal Patient Goal Type Associated Problems Recent Progress Patient-Stated? Author CCM Chronic Pain Care Plan Chronic Care Management Hali Dan RN Note: Problem: Chronic Pain Goals: 1. Minimize further functional decline 2. Maximize quality of life 3. Control pain Strategies: - Activity/exercise program recommendation - Conservative stepwise pain medicine strategy with multi-disciplinary approach - Recommend healthy lifestyle strategies and compensatory methods as needed Reduce the likelihood of falling Lifestyle Hali Dan RN Note: Below are four things you can do to prevent falls: Begin an exercise program to improve your leg strength & balance Ask your doctor or pharmacist to review your medicines Get annual eye check-ups & update your eyeglasses Make your home safer by: Removing clutter & tripping hazards Putting railings on all stairs & adding grab bars in the bathroom Having good lighting, especially on stairs Contact your local community or senior center for information on exercise, fall prevention programs, or options for improving home safety. Medical Devices Implanted Type Area Hogshead Inspector Device Identifier Shelf Expiration Date Model / Serial / Lot Ivc Filter- 7 Implanted:Qty: 1 on 06/09/2007 by Tam Fraser MD IVC Filter N/A: Vena Cava Lead-Spinal Cord Stimulator- 018 Implanted:2017 by Taran Ramirez MD (Quantity not on file) Lead Back [employer] SC-2158- 50 / / Biotronik Ra Lead ([id number])- 019 Implanted:2018 (Quantity not on file) Lead Chest Biotronik SOLIA S [id number] / [id number] / Lead (Rv)-05/23/2021 Implanted:2020 (Quantity not on file) Lead Heart Bi[employer]ik SOLIA S 53 [id number] 177 / [id number] / Biotronik Paceomaker Amvia Edge -T-12/24/2023 Implanted:2023 (Quantity not on file) Pacemaker Chest Wall [employer]ik [id number] / [id number] / Spinal Cord Stimulator- 018 Implanted:Qty: 1 on 08/20/2017 by Tarna Ramirez MD Spinal Cord Stimulator N/A: Back [employer] SC-1200 / [id number] / Spinal Cord Stimulator Lead-08/20/2017 Implanted:2017 by Taran Ramirez MD (Quantity not on file) Spinal Cord Stimulator Back [employer] Neuro- [id number] 0 / / Hardware Thoracic-L umbar Spine Loop Recorder Chest Wall [employer] System Closure Repair Femoral Artery Suture Mediated Perclose Prostyle 84043-54 - [id number] Implanted:Qty: 1 on 02/09/2024 by Morgan Roy MD at [facility] 11/16/2025 [id number] / / [id number] [employer] Percutaneous Transcatheter Amplatzer Amulet 18mm [id number] - [id number] Implanted:Qty: 1 on 02/09/2024 by Morgan Roy MD at [facility] 09/17/2027 9-[id number] / / [id number] [employer] System Closure Repair Femoral Artery Suture Mediated Perclose Prostyle 49712-66 - [id number] Implanted:Qty: 1 on 02/09/2024 by Morgan Roy MD at [facility] 11/16/2025 [id number] / / [id number] [employer] Sling Urinary Incontinence Female Stress Short Desara Blue Sis-Ds01bs - [id number] Implanted:Qty: 1 on 06/28/2024 by Shankar Mak MD at [facility] N/A: Urethra [employer]FA INC 01/04/2027 SIS-DS01 BS / / [id number] Explanted Type Area Hogshead Inspector Device Identifier Shelf Expiration Date Model / Serial / Lot Biotronik Rv Lead ([id number])-07/04 Implanted:Qty: 1 on 07/04/2019 Explanted:Qty: 1 Lead Chest Biotronik [id number] / / Description:This lead was re placed and left behind per patient on 05/23/21 Biotronik Pacemaker ([id number])-07/04 Implanted:Qty: 1 on 07/04/2019 Explanted:Qty: 1 on 12/24/2023 Pacemaker Left: Chest Biotronik ELUNA 8 KRISTY CARBAJAL / [id number] / [id number] Procedures Procedure Name Priority Date/Time Associated Diagnosis Comments XR SPINE THORACOLUMBAR JUNCT ION 2 OR MORE VIEWS Schedule Routine, Read Routine (OP Routine) 08/25/2024 7:35 AM STRUCTURAL ARCHITECT Transient ischemic attack (TIA) Cerebrovascular disease, unspecified Unspecified visual loss Presence of cardiac pacemaker XR CHEST PA LATERAL 2 VIEWS Schedule RY, Read RY (Appt Today, Awaiting Results) 08/23/2024 12:16 PM STRUCTURAL ARCHITECT Pacemaker reprogramming/c heck Complete heart block (HCC) DEVICE CHECK - IN OFFICE Routine 025 10:57 AM STRUCTURAL ARCHITECT Pacemaker reprogramming/c heck COLONOSCOPY 08/02/2024 1:43 PM STRUCTURAL ARCHITECT SURGICAL PATHOLOGY Routine 08/02/2024 1:26 PM STRUCTURAL ARCHITECT Dysphagia, unspecified type Dyspepsia Diarrhea, unspecified type EGD 08/02/2024 1:15 PM STRUCTURAL ARCHITECT ESOPHAGOGASTRODUODENOSCOPY BIOPSY 08/02/2024 1:12 PM STRUCTURAL ARCHITECT Dysphagia, unspecified type Dyspepsia Diarrhea, unspecified type COLON BIOPSY 08/02/2024 1:12 PM STRUCTURAL ARCHITECT Dysphagia, unspecified type Dyspepsia Diarrhea, unspecified type SCAN - OTHER ORDERS 07/26/2024 TROPONIN T HIGH-SENSITIVITY Routine 06/19 5:02 PM STRUCTURAL ARCHITECT ECG 12-LEAD STAT 06/28/2024 4:16 PM STRUCTURAL ARCHITECT IN AN PROCEDURE PLACEHOLDER Routine 06/19 2:43 PM STRUCTURAL ARCHITECT IN AN ELECTIVE SUPRAGLOTTIC AIRWAY Routine 06/28/2024 2:43 PM STRUCTURAL ARCHITECT URETHROPEXY 06/28/2024 2:25 PM STRUCTURAL ARCHITECT Stress incontinence, female HEPATITIS C ANTIBODY Routine 07/06/2020 2:58 PM STRUCTURAL ARCHITECT Polyarthralgia Encounter for screening for other viral diseases from Last 3 Months or Most Recently Relevant to Health Maintenance Results * XR Spine Thoracolumbar Junction 2 or More Views (08/25/2024 7:35 AM STRUCTURAL ARCHITECT) Anatomical Region Laterality Modality Spine N/A Computed Radiogr aphy 08/25/2024 7:45 AM STRUCTURAL ARCHITECT Impressions 08/25/2024 7:45 AM STRUCTURAL ARCHITECT 1. Thoracic stimulator device in place with intact leads. There is mild coiling within the posterior soft tissues at the level of T11 which is new from prior, although the position of the electrode paddle is unchanged, centered at T10. 2. Combined posterior and interbody instrument fusion from L2 through S1 as well as right sacroiliac and screw fusion appears intact. Electronically signed by: Nehemias Simons D.O. Narrative 08/25/2024 7:45 AM STRUCTURAL ARCHITECT EXAMINATION: XR SPINE THORACOLUMBAR JUNCTION 2 OR MORE VIEWS HISTORY: TIA unspecified. Cerebrovascular disease, unspecified. Unspecified visual loss. Presence of cardiac pacemaker FINDINGS: Comparison is made to 02/12/2021. Posterior and interbody fusion construct extending from L2 through S1 appears intact. Right sacroiliac arthrodesis. Partly imaged cardiac pacemaker leads. Inferior vena cava filter in place. There is a thoracic spinal stimulator device with pulse generator within the soft tissues of the right lower back. The leads appear intact. There is mild coiling of the leads immediately deep to the pulse generator in the right lower back soft tissues similar to prior. There is also mild uncoiling of the leads within the soft tissues posterior to the spine at the level of T11 which is new from prior. The electrode paddle is centered at the level of T10 within this posterior spinal canal near midline. Multilevel bridging osteophytes in the visualized thoracic spine consistent with diffuse idiopathic skeletal hyperostosis. The umbilical without bridging osteophytes is L1-L2 where there is minimal retrolisthesis, similar to prior with mild degenerative disc disease. Vertebral body heights are maintained. Procedure Note Nehemias Simons, DO - 08/25/2024 EXAMINATION: XR SPINE THORACOLUMBAR JUNCTION 2 OR MORE VIEWS HISTORY: TIA unspecified. Cerebrovascular disease, unspecified. Unspecified visual loss. Presence of cardiac pacemaker FINDINGS: Comparison is made to 02/12/2021. Posterior and interbody fusion construct extending from L2 through S1 appears intact. Right sacroiliac arthrodesis. Partly imaged cardiac pacemaker leads. Inferior vena cava filter in place. There is a thoracic spinal stimulator device with pulse generator within the soft tissues of the right lower back. The leads appear intact. There is mild coiling of the leads immediately deep to the pulse generator in the right lower back soft tissues similar to prior. There is also mild uncoiling of the leads within the soft tissues posterior to the spine at the level of T11 which is new from prior. The electrode paddle is centered at the level of T10 within this posterior spinal canal near midline. Multilevel bridging osteophytes in the visualized thoracic spine consistent with diffuse idiopathic skeletal hyperostosis. The umbilical without bridging osteophytes is L1-L2 where there is minimal retrolisthesis, similar to prior with mild degenerative disc disease. Vertebral body heights are maintained. IMPRESSION: 1. Thoracic stimulator device in place with intact leads. There is mild coiling within the posterior soft tissues at the level of T11 which is new from prior, although the position of the electrode paddle is unchanged, centered at T10. 2. Combined posterior and interbody instrument fusion from L2 through S1 as well as right sacroiliac and screw fusion appears intact. Electronically signed by: Nehemias Simons D.O. us Tomkalani Paz MD IMG XR PROCEDURES Final Resu lt * XR Chest Pa Lateral 2 Views (08/23/2024 12:16 PM STRUCTURAL ARCHITECT) Anatomical Region Laterality Modality Body, Chest N/A Computed Radiogr aphy 08/23/2024 2:08 PM STRUCTURAL ARCHITECT Impressions 08/23/2024 4:13 PM STRUCTURAL ARCHITECT FINDINGS/IMPRESSION: Left subclavian approach pacemaker with leads overlying the right atrium and right ventricle. Left atrial appendage occluder device was the chest. Spinal stimulator overlies thoracic spine. Partially imaged lumbar spinal fusion. Lungs are clear. No pleural effusion or pneumothorax. Cardiac mediastinal silhouette is within normal limits. Dictated by: Jaspreet Gonzalez MD The radiology attending physician has personally reviewed this study, and had reviewed and/or edited this written report and agrees with it. Electronically signed by: Arpit Mcclelland M.D. Narrative 08/23/2024 4:13 PM STRUCTURAL ARCHITECT EXAMINATION: XR CHEST PA LATERAL 2 VIEWS HISTORY: Pacemaker, no status change MRI protocol COMPARISON: X-ray from 02/10/2024 Procedure Note Arpit Mcclelland MD - 08/23/2024 EXAMINATION: XR CHEST PA LATERAL 2 VIEWS HISTORY: Pacemaker, no status change MRI protocol COMPARISON: X-ray from 02/10/2024 IMPRESSION: FINDINGS/IMPRESSION: Left subclavian approach pacemaker with leads overlying the right atrium and right ventricle. Left atrial appendage occluder device was the chest. Spinal stimulator overlies thoracic spine. Partially imaged lumbar spinal fusion. Lungs are clear. No pleural effusion or pneumothorax. Cardiac mediastinal silhouette is within normal limits. Dictated by: Jaspreet Gonzalez MD The radiology attending physician has personally reviewed this study, and had reviewed and/or edited this written report and agrees with it. Electronically signed by: Arpit Mcclelland M.D. Elise Ibarra NP IMG XR PROCEDURES Final R esult * DEVICE CHECK - IN OFFICE (08/23/2024 10:57 AM STRUCTURAL ARCHITECT) Anatomical Region Laterality Modality Other 08/23/2024 2:00 AM STRUCTURAL ARCHITECT Narrative 08/27/2024 9:33 PM STRUCTURAL ARCHITECT Interpretation Summary: Battery and Leads (BL) Normal parameters noted on battery and lead(s) --- Estimate 10 years to TEREZA Procedure Note Leonardo Grimm MD - 08/27/2024 Interpretation Summary: Battery and Leads (BL) Normal parameters noted on battery and lead(s) --- Estimate 10 years toERI us Elise Ibarra LEGAL INSTRUCTOR [facility] BECKY NICKERSON Final Result * Colonoscopy (08/02/2024 1:43 PM STRUCTURAL ARCHITECT) Anatomical Region Laterality Modality Other Narrative Procedure Note Trey Arroyo MD - 08/02/2024 1:43 PM CST [facility] Patient Name: Naye Cantu Procedure Date: 08/02/2024 1:43 PM Date of : 1965 Admit Type: Outpatient Age: 58 Gender: Female Attending MD: Trey Arroyo M.D. Room: [facility] 8 Note Status: Finalized Procedure: Colonoscopy Indications: Chronic diarrhea Referring MD: Tom Paz M.D. Providers: Trey Arroyo M.D., Kj Alex M.D. Medicines: Monitored Anesthesia Care Complications: No immediate complications. Estimated Blood Loss: Estimated blood loss was minimal. Procedure: Pre-Anesthesia Assessment: - Prior to the procedure, a History and Physicalwas performed, and patient medications, allergies and sensitivities were reviewed. The patient'stolerance of previous anesthesia was reviewed. - The risks and benefits of the procedure and the sedation options and risks were discussed with the patient. All questions were answered and informed consent was obtained. - Immediately prior to administration ofmedications, the patient was re-assessed for adequacy to receive sedatives. The benefits, risks and alternatives of theprocedure and sedation were discussed and informed consentwas obtained. All questions were answered. Please referto the signed informed consent document in the medical record. The scope was passed under direct vision.The [id number] endoscope was introduced through the anus and advanced to the terminal ileum. The colonoscopy was performed without difficulty. The patient tolerated the procedure well. The qualityof the bowel preparation was evaluated using the BBPS ([place] Bowel Preparation Scale) with scores of:Right Colon = 3, Transverse Colon = 3 and Left Colon = 3 (entire mucosa seen well with no residual staining, small fragments of stool or opaque liquid). Thetotal BBPS score equals 9. The bowel preparation used was GoLYTELY via split dose instruction. The quality of the bowel preparation was good. Findings: The terminal ileum appeared normal. The colon (entire examined portion) appeared normal. Biopsies weretaken with a cold forceps for histology. Internal hemorrhoids were found during retroflexion. The hemorrhoids were small and Grade I (internal hemorrhoids that do not prolapse). Impression: - The examined portion of the ileum was normal. - The entire examined colon is normal. Biopsied. - Internal hemorrhoids. Recommendation: - Await pathology results. - Repeat colonoscopy in 10 years for screening purposes. - Contact Information: During normal business hours - Please call theNurse Coordinator: [phone] After hours, evening, nights, weekends and holidays- Please call the hospital pressure tester operator at and ask for the GI fellow quarry extraction worker. Attending Participation: I was present and participated during the entire procedure, including non-patrick portions. Electronically signed by Trey Arroyo MD Trey Arroyo M.D. 08/02/2024 2:08:56 PM . Number of Addenda: 0 Note Initiated On: 08/02/2024 1:43 PM Trey Arroyo MD ENDOSCOPY PROCEDURES Final Result * Surgical pathology (08/02/2024 1:26 PM STRUCTURAL ARCHITECT) Tissue (Duodenum, Biopsy) 08/02/2024 1:26 PM STRUCTURAL ARCHITECT Tissue (Gastric/Stomach biopsy) 08/02/2024 1:29 PM STRUCTURAL ARCHITECT Tissue (Esophageal biopsy) 08/02/2024 1:38 PM STRUCTURAL ARCHITECT Tissue (Colon, Biopsy) 08/02/2024 2:02 PM STRUCTURAL ARCHITECT Narrative PATHOLOGY BJ - 08/05/2024 10:16 AM STRUCTURAL ARCHITECT EPIC results best viewed via link to PDF [facility] [place] [address] Note to Patients: This report may contain a detailed description of human tissue sent by a health care provider to the laboratory for pathologic evaluation. The content of this report is essential for diagnosis and may provide important critical findings. This information may be unfamiliar to patients to review without a medical professional present. It is advised that the patient review this report in the presence of a health care provider who can answer questions and explain the details. SURGICAL PATHOLOGY REPORT FINAL Patient Name: NAYE CANTU Gender: F : 1965 (Age: 58) Address: [address] [place] [id number] [facility] #: [id number] Taken:08/02/2024 Received:08/02/2024 Reported: 08/05/2024 Patient Type: [facility] Service: Gastroenterology Location: Physician(s): Trey Arroyo M.D. Tom Arango M.D. Diagnosis: A. Small bowel, duodenum, biopsy - Normal duodenal mucosa B. Stomach, random, biopsy - Antral mucosa with complete intestinal metaplasia - Normal oxyntic mucosa - No H. pylori organisms are identified by H&E examination C. Esophagus, random, biopsy - Normal esophageal squamous mucosa D. Large bowel, colon, random, biopsy - Normal colonic mucosa av/08/05/2024 07:39 By this signature, I attest that the above diagnosis is based upon my personal examination of the slides(and/or other material indicated in the diagnosis). Kimmie Weinstein MD Report Electronically Reviewed and Signed Out By Kimmie Weinstein MD 08/05/2024 10:16:14 Jannet Bass M.D. History: The patient is a 58-year-old woman presenting with dysphagia, unspecified type; dyspepsia; diarrhea, unspecified type. Operative procedure: Colon biopsy; upper endoscopy with biopsy. Specimen(s) Received: A: Duodenum B: Random gastric C: Random esophagus D: Random colon Gross Description: Received in four formalin jars labeled with the patient's identifiers. A. Labeled duodenum and consists of multiple yanes to yanes-brown fragment(s) of soft tissue measuring 0.7 x 0.5 x 0.2 cm in aggregate. Labeled A1. Jar 0. B. Labeled random gastric and consists of multiple yanes fragment(s) of soft tissue measuring 0.8 x 0.7 x 0.2 cm in aggregate. Labeled B1. Jar 0. C. Labeled random esophagus and consists of three white and white-yanes fragment(s) of soft tissue measuring 0.3 cm each in greatest dimension. Labeled C1. Jar 0. D. Labeled random colon and consists of multiple yanes fragment(s) of soft tissue with an aggregate measurement of 0.9 x 0.7 x 0.1 cm. Labeled D1. Jar 0. sxst/08/04/2024 12:52 PA(s): Oksana Sanders By this signature, I attest that the above diagnosis is based upon my personal examination of the slides(and/or other material). Addenda/Procedures The performance characteristics of some immunohistochemical stains, fluorescence in-situ hybridization tests and immunophenotyping by flow cytometry cited in this report (if any) were determined by the Surgical Pathology and Flow Cytometry Departments at [facility] as part of an ongoing quality assurance auditor program and in compliance with federally mandated regulations drawn from the Clinical Laboratory Improvement Act of 1988 (CLIA '88). Some of these tests rely on the use of analyte specific reagents and are subject to specific labeling requirements by the US Food and Drug Administration. Such diagnostic tests may only be performed in a facility that is certified by the Department of Health and Human Services as a high complexity laboratory under CLIA '88. The FDA has determined that such clearance or approval is not necessary. This test is used for clinical purposes. It should not be regarded as investigational or for research. Nevertheless, federal rules concerning the medical use of analyte specific reagents require that the following disclaimer be attached to the report: This test was developed and its performance characteristics determined by the Surgical Pathology and Flow Cytometry Departments of [facility]. It has not been cleared or approved by the U. S. Food and Drug Administration. IMAGES AND SCANNED DOCUMENTS, IF INCLUDED, ONLY VIEWABLE IN PDF VERSION OF REPORT Trey Arroyo MD LAB PATHOLOGY ORDERAB LES Final Result PATHOLOGY [facility] 3rd Floor [place], [place] [phone] * EGD (08/02/2024 1:15 PM STRUCTURAL ARCHITECT) Anatomical Region Laterality Modality Other Narrative Procedure Note Trey Arroyo MD - 08/02/2024 1:15 PM CST [facility] Patient Name: Naye Tanner Procedure Date: 08/02/2024 1:15 PM Date of : 1965 Admit Type: Outpatient Age: 58 Gender: Female Attending MD: Trey Arroyo M.D. Room: [facility] 8 Note Status: Addendum Procedure: Upper GI endoscopy Indications: Dyspepsia, Dysphagia Referring MD: Tom Paz M.D. Providers: Trey Arroyo M.D., Kj Alex M.D. Complications: No immediate complications. Estimated Blood Loss: Estimated blood loss was minimal. Procedure: Pre-Anesthesia Assessment: - Prior to the procedure, a History and Physicalwas performed, and patient medications, allergies and sensitivities were reviewed. The patient'stolerance of previous anesthesia was reviewed. - The risks and benefits of the procedure and the sedation options and risks were discussed with the patient. All questions were answered and informed consent was obtained. - Immediately prior to administration ofmedications, the patient was re-assessed for adequacy to receive sedatives. The benefits, risks, and alternatives to theprocedure and sedation were discussed and informed consentwas obtained. The scope was passed under direct vision. The GIF [id number] endoscope was introducedthrough the mouth, and advanced to the second part of duodenum. The upper GI endoscopy was accomplished without difficulty. The patient tolerated the procedure well. Findings: The examined esophagus was normal. Biopsies were taken with a cold forceps for histology. The entire examined stomach was normal. Biopsies were taken with acold forceps for histology. The examined duodenum was normal. Biopsies were taken with a cold forceps for histology. Impression: - Normal esophagus. Biopsied. - Normal stomach. Biopsied. - Normal examined duodenum. Biopsied. Recommendation: - Await pathology results. - Perform a colonoscopy today. - Contact Information: During normal business hours - Please call theNurse Coordinator: [phone] After hours, evening, nights, weekends and holidays- Please call the hospital pressure tester operator at and ask for the GI fellow quarry extraction worker. Attending Participation: I personally performed the entire procedure. Electronically signed by Trey Arroyo MD Trey Arroyo M.D. 08/02/2024 1:42:51 PM . Number of Addenda: 1 Note Initiated On: 08/02/2024 1:15 PM Addendum Number: 1 Addendum Date: 08/09/2024 4:07:32 PM During endoscopy, patient had some snoring / upper airwayobstruction, without desaturation or evidence of compromised gas exchange. Thiswas managed by anesthesia (jaw thrust / nasal airway). Consider sleepstudy to assess for CELINA. Electronically signed by Trey Arroyo MD Trey Arroyo M.D. 08/09/2024 4:08:41 PM . us Trey Arroyo MD ENDOSCOPY PROCEDURES Edited Result - Final * SCAN - OTHER ORDERS (07/26/2024) us Provider Scanning Final Result * Troponin T high-sensitivity (06/28/2024 5:02 PM STRUCTURAL ARCHITECT) Trop T hs <6 <=14 ng/L Comment: Interpretive Data For further hscTnT resources including the diagnostic algorithm and an aid in interpretation, copy and paste this link: [email or web address] Current Interpretive Data last revised 2020. Blood 06/28/2024 5:02 PM STRUCTURAL ARCHITECT 06/28/2024 5:16 PM STRUCTURAL ARCHITECT us Shankar Mak MD LAB BLOOD ORDERABLES Fi nal Result [facility] [address] Department [place] [address] * ECG 12 lead (06/28/2024 4:16 PM STRUCTURAL ARCHITECT) 06/28/2024 4:16 PM STRUCTURAL ARCHITECT Narrative [facility] - 06/28/2024 5:26 PM STRUCTURAL ARCHITECT Vent Rate: 70 bpm RR Interval: 857 msec IN Interval: 116 msec QRS Duration: 168 msec QT Interval: 487 msec QTC Interval: 507 msec P-R-T [place]: 176 - -78 - 83 degrees IMPRESSION: ELECTRONIC ATRIAL PACEMAKER ELECTRONIC VENTRICULAR PACEMAKER ABNORMAL RHYTHM ECG Electronically Signed By: Sarmad Skinner [facility] Card us Lakhwinder Plummer DO ECG ORDERABLES Final Result Performing Organization Address [facility] de Phone Number [facility] [employer] [facility] * IN AN ELECTIVE SUPRAGLOTTIC AIRWAY, IN AN PROCEDURE PLACEHOLDER (06/28/2024 2:43 PM STRUCTURAL ARCHITECT) Narrative Rosa Lowe CRNA - 06/28/2024 2:43 PM STRUCTURAL ARCHITECT Rosa Lowe CRNA 06/28/2024 2:44 PM Airway Patient location: OR Urgency: elective Indications for airway management: anesthesia Difficult airway: no Staff: Placed by: [employer]: Rosa Lowe CRNA Emergent airway documentation: Risks and benefits discussed: yes Consent obtained: yes Consent given by: patient Airway prep: Preoxygenated: yes Mask difficulty assessment: 0 - not attempted Spontaneous ventilation during airway: absent Sedation level during airway: GA Final airway details: Final airway type: supraglottic airway Final supraglottic airway: IGel SGA size: 4 Number of attempts: 1 us Lakhwinder Plummer DO ANESTHESIA ORDERABLES Final R esult * Hepatitis C antibody (07/06/2020 2:58 PM STRUCTURAL ARCHITECT) Hep C Ab NON-REACTI VE NON-REACT GIA [facility] SIGNAL TO CUT-OFF 0.02 <1.00 [facility] Comment: HCV antibody was non-reactive. There is no laboratory evidence of HCV infection. In most cases, no further action is required. However, if recent HCV exposure is suspected, a test for HCV RNA (test code 76635) is suggested. For additional information please refer to http://education.TradeSync/faq/ZTK46u8 (This link is being provided for informational/ educational purposes only.) Blood specimen (specimen) 07/06/2020 2:58 PM STRUCTURAL ARCHITECT 07/06/2020 3:00 PM STRUCTURAL ARCHITECT Narrative [facility] - 07/11/2020 9:33 PM STRUCTURAL ARCHITECT PATIENT UNABLE TO VOID; ADVISED TO RETURN FOR COLLECTION. us Olga MONTES LAB MICROBIOLOGY - GENERA L ORDERABLES Final Result MADELIN [facility] [address] [place] [address] from Last 3 Months or Most Recently Relevant to Health Maintenance Insurance MEDICARE IDPA MEDICARE [facility] [address] [place] [id number] MEDICARE [facility] [address] [place], [place] [id number] MEDICARE [address] [place] [id number] MEDICARE [facility] Advance Directives For more information, please contact: [phone] * Full Code (Latest Code Status on File) Date Activated Date Inactivated Comments 08/02/2024 11:54 AM 08/02/2024 7:30 PM * Full Code Date Activated Date Inactivated Comments 02/09/2024 1:39 PM 02/10/2024 9:56 PM * Full Code Date Activated Date Inactivated Comments 10/30/2023 11:37 PM 11/03/2023 9:39 PM * Full Code Date Activated Date Inactivated Comments 02/24/2022 10:10 AM 02/24/2022 4:09 PM * Full Code Date Activated Date Inactivated Comments 04/17/2020 6:47 AM 04/25/2020 10:09 PM Care Teams Home Health Nurse Relationship Specialty Start Date End Date Tom Paz MD PCP - General 09/09/16 Tab Taylor MD [address] [place] [address] Consulting Physician Cardiology 01/03/20 Favian Caceres MD [address] [place] [address] Consulting Physician Rheumatology 08/28/23
--- OUTSIDE RECORDS SUMMARY | 2024-09-22 15:08 | XMS_ITS | Clinical Summary ---
Author Organization [facility] Address [address] [place] [id number] Care Team Providers Care Neurologist Name Role Phone Tom Paz MD Primary Care Provider [phone] Tiago Vargas MD, Hugo P Unavailable [phone] Allergies Active Allergy Reactions Criticality Noted Date Comments Apple Anaphylaxis High 07/15/2023 Raw apples Carbamazepine Rash Medium 04/10/2021 Cefuroxime Hives,Rash High 04/09/2011 Clarithromycin Hives,Rash High 04/09/2011 Codeine Rash,Nausea and Vomiting High 04/09/2011 Severe vomiting Diphenhydramine Hives,Other (see comment) High 04/09/2011 Passed out Etanercept Itching Low 02/24/2022 Hydrocodone-Acetaminophen Nausea and Vomiting,Vomiting Low 04/09/2011 Severe vomiting Hydromorphone Hives High 11/21/2019 Imipramine Hives,Rash High 02/28/2014 Meclizine Anaphylaxis,Swellin g High 04/09/2011 Throat swelled Oxycodone-Acetaminophen Hives High 04/09/2011 Penicillins Hives,Rash High 04/09/2011 Prochlorperazine Anaphylaxis,Swellin g High 04/09/2011 Throat swelled Propoxyphene Nausea and Vomiting Low 04/09/2011 Propranolol Hives,Rash High 04/09/2011 Tape Contact Dermatitis Low 02/28/2014 Rash if tape on too long / Paper tape is better Tizanidine Hives Medium 07/02/2023 Wound Dressing Adhesive Contact Dermatitis 06/20 Dermabond severe blistering Medications baclofen (LIORESAL) 10 MG tablet Take 1 tablet (10 mg total) by mouth 3 (three) times daily as needed (pain/muscl e spasm). 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 Gender Identity Not on file Sexual Orientation Not on file Last Filed Vital Signs Vital Sign Reading Time Taken Comments Blood Pressure 150/87 04/05/2024 11:56 PM CDT Pulse 70 04/05/2024 11:56 PM CDT Temperature 36.5 C (97.7 F) 04/05/2024 11:56 PM CDT Respiratory Rate 18 04/05/2024 11:56 PM CDT Oxygen Saturation 98% 04/05/2024 11:56 PM CDT Inhaled Oxygen Concentration - - Weight 85.7 kg (189 lb) 04/05/2024 11:56 PM CDT Height 170.2 cm (5' 7 ) 04/05/2024 11:56 PM CDT Body Mass Index 29.6 04/05/2024 11:56 PM CDT Plan of Treatment Health Maintenance Due Date Last Done Comments ASCVD LDL 1964 ASCVD Statin 1964 Cervical Cancer Screening Pa p Smear (Age 30 to 64) Every 3 Years 1964 Colorectal Cancer Screening Colonoscopy (10 Years) 1964 Annual Physical 1967 Hepatitis C 1982 Cervical Cancer Screening Pa p with HPV Testing (Age 30 to 64) Every 5 Years 1994 Cervical Cancer Screening with HPV 1994 Mammogram Screening 2004 Zoster Vaccines (1 of 2) 2014 COVID-19 Vaccine ( - 2023-2 5 season) 2024 Influenza Adult (#1) 2024 RSV Immunization or 60+ Years (1 - Risk 60-74 years 1-dose series) 2024 DTaP, Tdap and Td Vaccines ( 2 - Td or Tdap) 10/06/2028 10/06/2018 Meningococcal B Vaccine Aged Out No l onger eligible based on patient's age to complete this topic Meningococcal Vaccine Aged Out No munir katalina eligible based on patient's age to complete this topic Pneumococcal Vaccine: Pediat rics (0 to 5 Years) and At-Risk Patients (6 to 64 Years) Aged Out No longer eligi ble based on patient's age to complete this topic RSV Immunizations Under 20 Months Aged Out No longer eligible based on patient's age to complete this topic Medical Devices Implanted Type Area [employer] Ball[employer] Expert Device Identifier Shelf Expiration Date Model / Serial / Lot Ivc Filter Filter Pacemaker Pacemaker [employer]OTRONIK Spinal Cord Stimulator Implant Stimulator Implant Insurance MEDICARE MEDICAID Care Teams Neurologist Relationship Specialty Start Date End Date Tom Paz MD [address] [address] PCP - General 09/29/22 [place] [address] [address] [place] [phone] CARDIOVASCULAR DISEASE 07/15/23
--- OUTSIDE RECORDS SUMMARY | 2024-09-22 15:08 | XMS_ITS | Clinical Summary ---
Author Organization [facility] al Address [address] [place] [address] Care Team Providers Care Asw/Asuw Tactical Air Controller Name Role Phone Tom Paz MD Primary Care Provider + [phone] Tab Taylor MD Unavailable [phone] Favian Caceres MD Unavailable [phone] Allergies Active Allergy Reactions Criticality Noted Date [...] - blisters Etanercept Itching Low 02/24/2022 Gum Hardwick Unknown 05/12/2023 Gum Nfgssv-Ygslee-Plpy-Alcoho l Blisters,Rash High 12/17/2021 Mastisol - blisters [...] 02/07/2021 Assessment & Plan (07/28/2024 11:19 AM TEST TECH): Monitor routine labs while on immunosuppressive medications. [...] QuantGold Assessment & Plan (09/22/2023 12:26 PM TEST TECH): Monitor routine labs while on immunosuppressive medications. [...] QuantGold Assessment & Plan (09/11/2022 12:48 PM TEST TECH): Monitor routine labs while on immunosuppressive medications. Recent 08/20 labs stable. 06/2020: Neg Hep B/C 03/2021: Neg QuantGold Assessment & Plan (07/01/2022 9:25 AM TEST TECH): Monitor routine labs while on immunosuppressive medications. [...] QuantGold Assessment & Plan (08/19/2021 2:31 PM TEST TECH): Monitor routine labs while on immunosuppressive medications. [...] Hospitalized for total of 8 days, at [facility] and then [facility]. Had CT brain/neck angio that were [...] Hospitalized for total of 8 days, at [facility] and then [facility]. Had CT brain/neck angio that were [...] 07/24/2020 Assessment & Plan (07/24/2020 12:34 PM TEST TECH): Her greatest pain complaint at this time [...] 07/24/2020 Assessment & Plan (07/01/2022 2:12 PM TEST TECH): Self weaned off Cymbalta 2 days ago [...] exercise. Assessment & Plan (08/27/2020 2:41 PM TEST TECH): Fatigue with sensation of pain all over [...] exercise. Assessment & Plan (07/24/2020 12:36 PM TEST TECH): Fatigue with sensation of pain all over [...] PT. Assessment & Plan (08/28/2020 12:26 PM TEST TECH): Multifocal OA (hands and hips) per recent xrays. Continue Tylenol 500 mg qid. Continue PT. Assessment & Plan (07/24/2020 12:41 PM TEST TECH): Multifocal OA (hands and hips) per recent [...] thickening. Assessment & Plan (07/28/2024 11:22 AM TEST TECH): Off MTX (oral ulcers/hair thinning). Remains on [...] increase blood glucose, glaucoma and osteopenia with senior care use of steroids. She was strongly encouraged [...] needed. Assessment & Plan (09/22/2023 12:32 PM TEST TECH): A 09/2022 repeat left hand/wrist US demonstrated [...] needed. Assessment & Plan (09/11/2022 12:48 PM TEST TECH): Continued 15mg MTX weekly and monthly Simponi [...] Chan. Assessment & Plan (08/06/2022 9:00 PM TEST TECH): Has continued 15mg MTX weekly as well [...] we have no access to them through [facility]. She already had an OV scheduled for 09/02 - will re-evaluate joints at that time and consider repeat hand US if synovitis is absent/minimal on exam but she is still noting pain -to evaluate for underlying inflammation. She may require change in biologic medication. Assessment & Plan (07/01/2022 2:09 PM TEST TECH): CDAI 37, high Off Enbrel due to ISRs. Continued MTX and Simponi injections. Noted improvement after prednisone taper at last visit. Joints were feeling good until a few weeks ago when she returned from a trip to [place] an self weaned off Cymbalta. 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 Continue 15mg MTX weekly [...] Chan. Assessment & Plan (08/19/2021 9:00 PM TEST TECH): CDAI 25. On 15mg MTX weekly but has only taken 3 Enbrel injections so far. Just completed a medrol dose pack from her radio officer due to inflammation around her heart (pericarditis?). [...] incontinence. Has followed up with PCP and radio officer - started Ubrelvy for JACKSON and radio officer is to adjust her pacemaker on 05/23. [...] pen with her during her trip to [place] (leaves and returns around the ). A letter was provided for [facility] to allow Humira to be brought as a carry on. She may call [facility] to schedule injection with a nurse ambassador [...] needed. Assessment & Plan (08/28/2020 12:26 PM TEST TECH): Our workup showed an JANNET 1:160 but [...] needed. Assessment & Plan (07/24/2020 12:33 PM TEST TECH): 54yoF referred for evaluation due to +JANNET [...] reassess. Assessment & Plan (07/06/2020 4:49 PM TEST TECH): 54yoF referred for evaluation due to +JANNET [...] (12/13/2019): Added automatically from request for surgery [id number] SVT (supraventricular tachycardia) 12/13/2019 Overview (12/13/2019): Added automatically from request for surgery [id number] A-fib 11/24/2019 Overview (11/24/2019): Added automatically from request for surgery [id number] Laryngopharyngeal reflux (LPR) 08/04/2018 Assessment & Plan (10/20/2018 12:26 PM CDT): No longer taking the omeprazole and ranitidine as prescribed. Patient is no longer experiencing any coughing, sinonasal or throat symptoms. Assessment & Plan (08/04/2018 1:17 PM TEST TECH): Add omeprazole 40 mg Q morning 30 [...] resume. Assessment & Plan (08/04/2018 1:11 PM TEST TECH): Patient's chronic cough is most likely secondary [...] reactive airway disease contributing to her cough. parts counterman current use of anticoagulant therapy 1 08/28/2014 Deep vein thrombosis (DVT) 06/27/2015 Hyperthyroidism 08/31/2012 Chronic adrenal insufficiency 08/30/2012 Encounters Date Type Department Care Team Description 09/02/2024 Telephone [facility] Dermatology [address] [place] [address] [address] [place] [address] Va Maharaj CNA Request Call Back 08/25/2024 7:24 AM TEST TECH - 08/25/2024 11:59 PM TEST TECH Hospital Encounter [facility] Radiology [address] [place] [address] Transient ischemic attack (TIA); Cerebrovascular disease, unspecified; Unspecified visual loss; Presence of cardiac pacemaker Discharge Disposition: Discharge to home or self care 08/25/2024 Orders Only [facility] Radiology [address] [place] [address] Katarzyna Gil, RT 08/23/2024 12:12 PM TEST TECH - 08/23/2024 11:59 PM TEST TECH Hospital Encounter [facility] Radiology [facility] [address] [place] [address] Pacemaker reprogramming/check ; Complete heart block (HCC) Discharge Disposition: Discharge to home or self care 08/23/2024 11:30 AM TEST TECH Office Visit [facility] Cardiology [address] [place] [address] Medicine 8th [place] [address] [place] [address] Elise Ibarra NP Pacemaker reprogramming/check (Primary Dx); Complete heart block (HCC) 08/23/2024 11:00 AM TEST TECH Ancillary Procedure [facility] Cardiology [address] [place] [address] 8th [place] [address] [place] [address] Pacemaker reprogramming/check 08/23/2024 Orders Only [facility] Cardiology [address] [facility] Advanced Medicine 8th [place] [address] [place] [address] Elise Ibarra, SONIA Pacemaker reprogramming/check (Primary Dx) 08/02/2024 1:07 PM TEST TECH Anesthesia Event [facility] Digestive [facility] [address] [address] Rui Fuller MD McGowan, Jessica Lynn, NP 08/02/2024 12:30 PM TEST TECH - 08/02/2024 1:30 PM TEST TECH Surgery [address] [address] Trey Arroyo MD COLON BIOPSY 08/02/2024 11:02 AM TEST TECH - 08/02/2024 3:29 PM TEST TECH Hospital Encounter [address] [address] Trey Arroyo MD Dysphagia, unspecified type; Dyspepsia; Diarrhea, unspecified type Discharge Disposition: Discharge to home or self care 07/28/2024 10:30 AM TEST TECH Office Visit [facility] [address] [place] [phone] Claudia Cristobal PA Seronegative rheumatoid arthritis (HCC) (Primary Dx); Encounter for long-term (current) use of high-risk medication 07/26/2024 Telephone [facility] Specialty Services [address] [place] [phone] Sarina Posey RN GI PROCEDURE 7 DAY PRE CALL 07/26/2024 Orders Only [facility] Health Information Management [address] [place] [address] Scanning, Provider 07/14/2024 10:30 AM TEST TECH Pre-Admission Testing [facility] for Preoperative Assessment and Planning [facility] [address] [place] [address] 06/28/2024 3:00 PM TEST TECH - 06/28/2024 4:15 PM TEST TECH Surgery [facility] Operating Room [address] [place] [address] Shankar Mak MD Urethral Sling, Cystoscopy 06/28/2024 2:28 PM TEST TECH Anesthesia Event [facility] Operating Room [address] [place] [address] Lakhwinder Plummer, Rosa Glass, FELIPE 06/28/2024 12:53 PM TEST TECH - 06/28/2024 6:15 PM TEST TECH Hospital Encounter [facility] Operating Room [facility] [place] [address] Shankar Mak MD Stress incontinence, female Discharge Disposition: Discharge to home or self care from Last 3 Months Surgical History Surgery Date Site/Laterality Comments KNEE ARTHROSCOPY Right X3 KNEE SURGERY Right SPINE SURGERY X's 2 WRIST SURGERY Left torn ligament TUBAL LIGATION SPINAL CORD STIMULATOR IMPLANT X's 4 ENDOMETRIAL ABLATION W/ NOVASURE HERNIA REPAIR INSERT VENA CAVA FILTER 07/20/2006 - 07/19/2007 INSERT / REPLACE / REMOVE PACEMAKER 07/04/2019 KNEE ARTHROSCOPY W/ LATERAL RELEASE INSERT / REPLACE / REMOVE PACEMAKER 01/23/2024 INSERT / REPLACE / REMOVE PACEMAKER Medical History Medical History Date Comments Hx Other Medical chronic leg erma n, has nerve stimulator Hx Other Medical hypotension and cardiac arrhytmias, under cardiolo Depression Depression Anxiety disorder Anxiety DVT (deep vein thrombosis) in behind right knee Motion sickness Sleep apnea Tachycardia GERD (gastroesophageal reflux disease) Irritable bowel syndrome Arthritis RSD (reflex sympathetic dystrophy) Atrial fibrillation (HCC) SVT (supraventricular tachycardia) Broken toe 2019 left foot, 2nd t oe Pancreatitis TIA (transient ischemic attack) Osteoporosis 2011 Stroke (HCC) TIA -2019 Autoimmune disease 2009 Anemia CHF (congestive heart failure) (HCC) Gastric reflux Migraines Hypercholesteremia Rheumatoid arthritis (HCC) Allergic rhinitis Urinary tract infection Blood clot in vein 2006 and 2014 Inappropriate sinus tachycardia Pacemaker Presence of Amulet left atri al appendage closure device Joint pain Delayed emergence from general anesthesia slower to wake up Family History Medical History Relation Name Comments Anemia Daughter Evelia Lung disease Father Cancer Maternal Grandmother Grandma Alzheimer's disease Mother Mom Diabetes Mother Mom Other Other Family history of thyroid; Anesthesia problems Neg Hx Relation Name Status Comments Daughter Evelia Father Maternal Grandmother Grandma Mother Mom Other Social History Tobacco Use Types Packs/Day Years Used Date Smoking Tobacco: Never Passive Smoke Exposure: Past Smokeless Tobacco: Never Tobacco Cessation:Counseling Given: Not Answered Alcohol Use Standard Drinks/Week Comments No 0 (1 standard drink = 0.6 oz pur e alcohol) [facility] Utilities Answer Date Recorded In the past 12 months has e [employer], gas, oil, or water [employer] threatened to shut off services in your [...] often do you attend chur ch or sikh services? More than 4 times per year 02/11/2024 Do you belong to any clubs o r organizations such as samaritan groups, unions, fraternal or athletic groups, or [...] place to sleep or slept in a mcfp (including now)? No 11/02/2023 Housing Stability Vital Sign Answer Thang e Recorded In the last 12 months, was t here a time when you were not able to pay the mortgage or rent on time? No 02/11/2024 In the past 12 months, how m any times have you moved where you were living? 0 02/11/2024 At any time in the past 12 m the [facility], were you homeless or living in a mcfp (including now)? No 02/11/2024 Personal Safety Answer Date Recorded Have you ever been in or are you currently in a harmful physical or emotional relationship or is someone making you feel afraid or unsafe? Denies 08/02/2024 Comments No Sex and Gender Information Value Date Recorded Sex Assigned at Not on file Legal Sex Female 12:21 AM TEST TECH Gender Identity Not on file Sexual Orientation Not on file Obstetrics History Last Filed Vital Signs Vital Sign Reading Time Taken Comments Blood Pressure 125/71 08/25/2024 8:38 AM TEST TECH Pulse 73 08/25/2024 8:38 AM TEST TECH Temperature 36 C (96.8 F) 08/02/2024 2:20 PM TEST TECH Respiratory Rate 10 08/02/2024 2:40 PM TEST TECH Oxygen Saturation 97% 08/25/2024 8:38 AM TEST TECH Inhaled Oxygen Concentration - - Weight 88.6 kg (195 lb 6.4 oz) 08/23/2024 11:23 AM TEST TECH Height 172.7 cm (5' 8 ) 08/23/2024 11:23 AM TEST TECH Body Mass Index 29.71 08/23/2024 11:23 AM TEST TECH Plan of Treatment Health Maintenance Due Date Last Done Comments Breast Cancer Screening-Mammogram 1965 Cervical Cancer Screening 1965 Depression Screening 1965 Hepatitis B Screening 1982 Regular Well Visit/Exam 18-64 1982 Zoster Vaccine (1 of 2) 2014 Influenza Vaccine (#1) 2024 DTaP/Tdap/Td Vaccine (2 - Td or Tdap) 10/06/2028 10/06/2018 Colon Cancer Screening-Colonoscopy 08/02/2034 08/02/2024 Hepatitis C Screening Completed 07/06/2020 , 08/21/2012 Colon Cancer Screening-CT Colonography Discontinued 08/02/2024 Colon Cancer Screening-DNA Stool Discontinued 08/02/2024 Colon Cancer Screening-FIT Discontinued 08/02/2024 Colon Cancer Screening-Sigmoidoscopy Discontinued 08/02/2024 Pneumococcal vaccine <65 Aged Out No longer eligible based on patient's age to complete this topic Goals Goal Patient Goal Type Associated Problems Recent Progress Patient-Stated? Author CCM Chronic Pain Care Plan Chronic Care Management No Hali Brewer RN Note: Problem: Chronic Pain Goals: 1. Minimize further functional decline 2. Maximize quality of life 3. Control pain Strategies: - Activity/exercise program recommendation - Conservative stepwise pain medicine strategy with multi-disciplinary approach - Recommend healthy lifestyle strategies and compensatory methods as needed Reduce the likelihood of falling Lifestyle No OsmanHali hoffmann RN Note: Below are four things you [...] home safety. Medical Devices Implanted Type Area Window Tinter Device Identifier Shelf Expiration Date Model / Serial / Lot Ivc Filter- 7 Implanted:Qty: 1 on 06/09/2007 by Tam Fraser MD IVC Filter N/A: Vena Cava Lead-Spinal Cord Stimulator- 018 Implanted:2017 by Taran Ramirez MD (Quantity not on file) Lead Back [employer] SC-[id number] 50 / / Biotronik Ra Lead ([id number])- 019 Implanted:2018 (Quantity not on file) Lead Chest Biotronik SOLIA S [id number] / [id number] / Lead (Rv)-05/23/2021 Implanted:2020 (Quantity not on file) Lead Heart [employer]ot[employer]ik SOLIA S 53 [id number] 177 / [id number] / Biotronik Paceomaker Amvia Edge -Efrem-12/24/2023 Implanted:2023 (Quantity not on file) Pacemaker Chest Wall [employer]ronik [id number] / [id number] / Spinal Cord Stimulator- 018 Implanted:Qty: 1 on 08/20/2017 by Taran Ramirez MD Spinal Cord Stimulator N/A: Back [employer] SC-1200 / [id number] / Spinal Cord Stimulator Lead-08/20/2017 Implanted:2017 by Taran Ramirez MD (Quantity not on file) Spinal Cord Stimulator Back [employer] Neuro- [id number] / / Hardware Thoracic-L umbar Spine Loop Recorder Chest Wall [employer] System Closure Repair Femoral Artery Suture Mediated Perclose Prostyle 45112-29 - [id number] Implanted:Qty: 1 on 02/09/2024 by Morgan Roy MD at [facility] [employer] 11/16/2025 [id number] / / [id number] [employer] Percutaneous Transcatheter Amplatzer Amulet 18mm [id number] - [id number] Implanted:Qty: 1 on 02/09/2024 by Morgan Roy MD at [facility] [employer] 09/17/2027 9-[id number] / / [id number] [employer] System Closure Repair Femoral Artery Suture Mediated Perclose Prostyle 59158-77 - [id number] Implanted:Qty: 1 on 02/09/2024 by Morgan Roy MD at [facility] Vascular 11/16/2025 [id number] / / [id number] [employer] Sling Urinary Incontinence Female Stress Short Desara Blue Sis-Ds01bs - [id number] Implanted:Qty: 1 on 06/28/2024 by Shankar Mak MD at [facility] N/A: Urethra [employer] 01/04/2027 SIS-DS01 BS / / [id number] Explanted Type Area Window Tinter Device Identifier Shelf Expiration Date Model / Serial / Lot Biotronik Rv Lead ([id number])-07/04 Implanted:Qty: 1 on 07/04/2019 Explanted:Qty: 1 Lead Chest Biotronik [id number] / / Description:This lead was re placed and left behind per patient on 05/23/21 Biotronik Pacemaker ([id number])-07/04 Implanted:Qty: 1 on 07/04/2019 Explanted:Qty: 1 on 12/24/2023 Pacemaker Left: Chest Biotronik ELUNA 8 KRISTY CARBAJAL / [id number] / [id number] Procedures Procedure Name Priority Date/Time Associated Diagnosis Comments XR SPINE THORACOLUMBAR JUNCT ION 2 OR MORE VIEWS Schedule Routine, Read Routine (OP Routine) 08/25/2024 7:35 AM TEST TECH Transient ischemic attack (TIA) Cerebrovascular disease, unspecified Unspecified visual loss Presence of cardiac pacemaker XR CHEST PA LATERAL 2 VIEWS Schedule RY, Read RY (Appt Today, Awaiting Results) 08/23/2024 12:16 PM TEST TECH Pacemaker reprogramming/c heck Complete heart block (HCC) DEVICE CHECK - IN OFFICE Routine 025 10:57 AM TEST TECH Pacemaker reprogramming/c heck COLONOSCOPY 08/02/2024 1:43 PM TEST TECH SURGICAL PATHOLOGY Routine 08/02/2024 1:26 PM TEST TECH Dysphagia, unspecified type Dyspepsia Diarrhea, unspecified type EGD 08/02/2024 1:15 PM TEST TECH ESOPHAGOGASTRODUODENOSCOPY BIOPSY 08/02/2024 1:12 PM TEST TECH Dysphagia, unspecified type Dyspepsia Diarrhea, unspecified type COLON BIOPSY 08/02/2024 1:12 PM TEST TECH Dysphagia, unspecified type Dyspepsia Diarrhea, unspecified type SCAN - OTHER ORDERS 07/26/2024 TROPONIN T HIGH-SENSITIVITY Routine 06/19 5:02 PM TEST TECH ECG 12-LEAD STAT 06/28/2024 4:16 PM TEST TECH ND AN PROCEDURE PLACEHOLDER Routine 06/19 2:43 PM TEST TECH ND AN ELECTIVE SUPRAGLOTTIC AIRWAY Routine 06/28/2024 2:43 PM TEST TECH URETHROPEXY 06/28/2024 2:25 PM TEST TECH Stress incontinence, female HEPATITIS C ANTIBODY Routine 07/06/2020 2:58 PM TEST TECH Polyarthralgia Encounter for screening for other viral diseases from Last 3 Months or Most Recently Relevant to Health Maintenance Results * XR Spine Thoracolumbar Junction 2 or More Views (08/25/2024 7:35 AM TEST TECH) Anatomical Region Laterality Modality Spine N/A Computed Radiogr aphy 08/25/2024 7:45 AM TEST TECH Impressions 08/25/2024 7:45 AM TEST TECH 1. Thoracic stimulator device in place with [...] screw fusion appears intact. Electronically signed by: Sada Bay 08/25/2024 7:45 AM TEST TECH EXAMINATION: XR SPINE THORACOLUMBAR JUNCTION 2 OR [...] Vertebral body heights are maintained. Procedure Note Kristyn Nehemias Yeimi, DO - 08/25/2024 EXAMINATION: XR SPINE THORACOLUMBAR [...] intact. Electronically signed by: Nehemias Simons D.O. Tom Paz MD IMG XR PROCEDURES Final Resu lt * XR Chest Pa Lateral 2 Views (08/23/2024 12:16 PM TEST TECH) Anatomical Region Laterality Modality Body, Chest N/A Computed Radiogr aphy 08/23/2024 2:08 PM TEST TECH Impressions 08/23/2024 4:13 PM TEST TECH FINDINGS/IMPRESSION: Left subclavian approach pacemaker with leads [...] Arpit Mcclelland M.D. Narrative 08/23/2024 4:13 PM TEST TECH EXAMINATION: XR CHEST PA LATERAL 2 VIEWS [...] CHECK - IN OFFICE (08/23/2024 10:57 AM TEST TECH) Anatomical Region Laterality Modality Other 08/23/2024 2:00 AM TEST TECH Narrative 08/27/2024 9:33 PM TEST TECH Interpretation Summary: Battery and Leads (BL) Normal parameters noted on battery and lead(s) --- Estimate 10 years to TEREZA Procedure Note Leonardo Grimm MD - 08/27/2024 Interpretation Summary: Battery and Leads (BL) Normal parameters noted on battery and lead(s) --- Estimate 10 years toERI us Elise Ibarra NP [facility] PROCE KRISHAN Final Result * Colonoscopy (08/02/2024 1:43 PM TEST TECH) Anatomical Region Laterality Modality Other Narrative Procedure Note Trey Arroyo MD - 08/02/2024 1:43 PM CST [facility] ENDOSCOPY [facility] Patient Name: Naye Cantu Procedure Date: 08/02/2024 1:43 PM Date of : 1965 Admit Type: Outpatient Age: 58 Gender: Female Attending MD: Trey Arroyo M.D. Room: [facility] ENDOSCOPY ROOM 8 Note Status: Finalized Procedure: Colonoscopy Indications: Chronic diarrhea Referring MD: Tom Paz M.D. Providers: rTey Arroyo M.D., Kj Alex M.D. Medicines: Monitored [...] The scope was passed under direct vision.The [id number] endoscope was introduced through the anus and advanced to the terminal ileum. The colonoscopy was performed without difficulty. The patient tolerated the procedure well. The qualityof the bowel preparation was evaluated using the BBPS ([place] Bowel Preparation Scale) with scores of:Right Colon [...] business hours - Please call theNurse Coordinator: [phone] After hours, evening, nights, weekends and holidays- Please call the hospital stretcher drier operator at and ask for the GI fellow workers compensation analyst. Attending Participation: I was present and participated during the entire procedure, including non-patrick portions. Electronically signed by Trey Arroyo MD Trey Arroyo M.D. 08/02/2024 2:08:56 PM . Number of Addenda: 0 Note Initiated On: 08/02/2024 1:43 PM Trey Arroyo MD ENDOSCOPY PROCEDURES Final Result * Surgical pathology (08/02/2024 1:26 PM TEST TECH) Tissue (Duodenum, Biopsy) 08/02/2024 1:26 PM TEST TECH Tissue (Gastric/Stomach biopsy) 08/02/2024 1:29 PM TEST TECH Tissue (Esophageal biopsy) 08/02/2024 1:38 PM TEST TECH Tissue (Colon, Biopsy) 08/02/2024 2:02 PM TEST TECH Narrative PATHOLOGY [facility] - 08/05/2024 10:16 AM TEST TECH EPIC results best viewed via link to PDF [facility] [place] [address] Note to Patients: This report may contain [...] Gender: F : 1965 (Age: 58) Address: [address] [place] [address] [address] [address] [facility] #: [id number] Taken:08/02/2024 Received:08/02/2024 Reported: 08/05/2024 [facility] Service: Gastroenterology Location: Physician(s): Trey Arroyo M.D. Tomkalani Arango M.D. Diagnosis: A. Small bowel, duodenum, [...] Surgical Pathology and Flow Cytometry Departments at [facility] as part of an ongoing quality process engineer program and in compliance with federally mandated [...] Surgical Pathology and Flow Cytometry Departments of [facility]. It has not been cleared or approved by the U. S. Food and Drug Administration. IMAGES AND SCANNED DOCUMENTS, IF INCLUDED, ONLY VIEWABLE IN PDF VERSION OF REPORT Trey Arroyo MD LAB PATHOLOGY ORDERAB LES Final Result PATHOLOGY [facility] 3rd Floor [place], [place] [phone] * EGD (08/02/2024 1:15 PM TEST TECH) Anatomical Region Laterality Modality Other Narrative Procedure Note Trey Arroyo MD - 08/02/2024 1:15 PM CST [facility] ENDOS[facility] Patient Name: Naye Cantu Procedure Date: 08/02/2024 1:15 PM Date of : 1965 Admit Type: Outpatient Age: 58 Gender: Female Attending MD: Trey Arroyo M.D. Room: [facility] ENDOSCOPY ROOM 8 Note Status: Addendum Procedure: Upper GI endoscopy Indications: Dyspepsia, Dysphagia Referring MD: Tom Paz M.D. Providers: Trey Arroyo M.D., Kj lAex M.D. Complications: No immediate complications. Estimated Blood [...] passed under direct vision. The GIF [id number] endoscope was introducedthrough the mouth, and advanced [...] During normal business hours - [facility] [place] Coordinator: [phone] After hours, evening, nights, weekends and holidays- Please call the hospital stretcher drier operator at and ask for the GI fellow workers compensation analyst. Attending Participation: I personally performed the entire [...] Trey Arroyo M.D. 08/09/2024 4:08:41 PM . Trey Arroyo MD ENDOSCOPY PROCEDURES Edited Result - Final * SCAN - OTHER ORDERS (07/26/2024) us Provider Scanning Final Result * Troponin T high-sensitivity (06/28/2024 5:02 PM TEST TECH) Trop T hs <6 <=14 ng/L Comment: Interpretive Data For further hscTnT resources including the diagnostic algorithm and an aid in interpretation, copy and paste this link: https://nrl.testcatalog.org/show/hsTrop Current Interpretive Data last revised 2020. Blood 06/28/2024 5:02 PM TEST TECH 06/28/2024 5:16 PM TEST TECH us Shankar Mak MD LAB BLOOD ORDERABLES Fi nal Result Performing Organization Address [facility] Co de Phone Number [facility] [address] [place] [address] * ECG 12 lead (06/28/2024 4:16 PM TEST TECH) 06/28/2024 4:16 PM TEST TECH Narrative [facility] [employer] - 06/28/2024 5:26 PM TEST TECH Vent Rate: 70 bpm RR Interval: 857 msec ND Interval: 116 msec QRS Duration: 168 msec QT Interval: 487 msec QTC Interval: 507 msec P-R-T [place]: 176 - -78 - 83 degrees IMPRESSION: ELECTRONIC ATRIAL PACEMAKER ELECTRONIC VENTRICULAR PACEMAKER ABNORMAL RHYTHM ECG Electronically Signed By: Sarmad Skinner [facility] Card us Lakhwinder Plummer DO ECG ORDERABLES Final Result Performing Organization Address [facility] Co de Phone Number [facility] [employer] [facility] * ND AN ELECTIVE SUPRAGLOTTIC AIRWAY, ND AN PROCEDURE PLACEHOLDER (06/28/2024 2:43 PM TEST TECH) Narrative Rosa Lowe CRNA - 06/28/2024 2:43 PM TEST TECH Rosa Lowe CRNA 06/28/2024 2:44 PM Airway Patient location: OR Urgency: elective Indications for airway management: anesthesia Difficult airway: no Staff: Placed by: CIGAR MAKING MACHINE SUPERVISOR: Rosa Lowe CRNA Emergent airway documentation: Risks and benefits discussed: yes Consent obtained: yes Consent given by: patient Airway prep: Preoxygenated: yes Mask difficulty assessment: 0 - not attempted Spontaneous ventilation during airway: absent Sedation level during airway: GA Final airway details: Final airway type: supraglottic airway Final supraglottic airway: IGel SGA size: 4 Number of attempts: 1 Lakhwinder You Elian DO ANESTHESIA ORDERABLES Final R esult * Hepatitis C antibody (07/06/2020 2:58 PM TEST TECH) Hep C Ab NON-REACTI VE NON-REACT GIA [facility] SIGNAL TO CUT-OFF 0.02 <1.00 [facility] Comment: HCV antibody was non-reactive. There is no laboratory evidence of HCV infection. In most cases, no further action is required. However, if recent HCV exposure is suspected, a test for HCV RNA (test code 57617) is suggested. For additional information please refer to http://education.[employer]/faq/ZHV89e3 (This link is being provided for informational/ educational purposes only.) Blood specimen (specimen) 07/06/2020 2:58 PM TEST TECH 07/06/2020 3:00 PM TEST TECH Narrative [facility] - 07/11/2020 9:33 PM TEST TECH PATIENT UNABLE TO VOID; ADVISED TO RETURN FOR COLLECTION. Olga MONTES LAB MICROBIOLOGY - GENERA L ORDERABLES Final Result [facility] [address] [place] [address] from Last 3 Months or Most Recently Relevant to Health Maintenance Insurance , [facility] [address] [place] [address] MEDICARE [facility] Address: [address] [address] [place] [address] IDIA MEDICARE [facility] [address] [place] [phone] MEDICARE [facility] [address] [place] [address] [place], [place] [id number] MEDICARE IDPA Advance Directives For more information, please contact: [phone] * Full Code (Latest Code Status on [...] 6:47 AM 04/25/2020 10:09 PM Care Teams Asw/Asuw Tactical Air Controller Relationship Specialty Start Date End Date Tom Paz MD PCP - General 09/09/16 Tab Taylor MD [address] [place] [address] Consulting Physician Cardiology 01/03/20 Favian Caceres MD [address] [place] [address] Consulting Physician Rheumatology 08/28/23
--- OUTSIDE RECORDS SUMMARY | 2024-09-22 15:08 | XMS_ITS | Encounter Summary ---
Author Organization [facility] Healthcare Address [address] [place] [address] Care Team Providers Care Pathology Supervisor Name Role Phone Tom Paz MD Primary Care Provider + [phone] Tab Taylor MD Unavailable [phone] Favian Caceres MD Unavailable [phone] Reason for Visit * Reason Onset Date Comments Scheduling Appointments 04/15/2024 Schedule patient for Imaging Genicular RFA Right (38140) and 1m follow Encounter Details Date Type Department Care Team (Late st Contact Info) Description 04/15/2024 Telephone [facility] [address] [address], [address] [place] [address] Dougie Lord MD [address] [address] Scheduling Appointments (Schedule patient for Imaging Genicular RFA Right (24944) and 1m follow ) Social History Tobacco Use Types Packs/Day Years Used Date Smoking Tobacco: Never Passive Smoke Exposure: Past Smokeless Tobacco: Never Alcohol Use Standard Drinks/Week Comments No 0 (1 standard drink = 0.6 oz pur e alcohol) [facility] Utilities Answer Date Recorded In the past 12 months has [employer] electric, gas, oil, or water company threatened to shut off services in your home? Yes 02/11/2024 Social Connection and Isolat ion Panel [NHANES] Answer Date Recorded In a typical week, how many times do you talk on the phone with family, friends, or neighbors? Once a week 02/11/2024 How often do you get togethe r with friends or relatives? Once a week 02/11/2024 How often do you attend chur or adventist services? More than 4 times per year 02/11/2024 Do you belong to any clubs o r organizations such as jehovah's witness groups, unions, fraternal or athletic groups, or school groups? No 02/11/2024 How often do you attend meet ings of the clubs or organizations you belong to? Never 02/11/2024 Are you , , di vorced, , never , or living with a partner? 02/11/2024 AUDIT-C Answer Date Recorded Q1: How often do you have a drink containing alcohol? Never 04/12/2024 Q2: How many drinks containi ng alcohol do you have on a typical day when you are drinking? Patient does not drink Q3: How often do you have si x or more drinks on one occasion? Never 04/12/2024 Overall Financial Resource Strain (CARDIA) Answe r [...] any time in the past 12 m [facility], were you homeless or living in a group home (including now)? No 02/11/2024 Personal Safety Answer Date Recorded Have you ever been in or are you currently in a harmful physical or emotional relationship or is someone making you feel afraid or unsafe? 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 documented as of this encounter Visit Diagnoses Not on filedocumented in this encounter Care Teams Pathology Supervisor Relationship Specialty Start Date End Date Tom Paz MD PCP - General 09/09/16 Tab Taylor MD [address] [place] [address] Consulting Physician Cardiology 01/03/20 Favian Caceres MD [address] [place] [address] Consulting Physician Rheumatology 08/28/23 documented as of this encounter
--- OUTSIDE RECORDS SUMMARY | 2024-09-22 15:08 | XMS_ITS | Encounter Summary ---
Author Organization [facility] Address [address] [place] [address] Care Team Providers Care Safety And Skill Based Pay Manager Name Role Phone Tom Paz MD Primary Care Provider [phone] Encounter Details Date Type Department Care Team (Late st Contact Info) Description 09/20/2024 External Device Data [facility] ABSTRACTION Provider, Abstract NO ADDRESS ON FILE Social History Tobacco Use Types Packs/Day Years Used Date Smoking Tobacco: Never Smokeless Tobacco: Never Alcohol Use Standard Drinks/Week Comments Never 0 (1 standard drink = 0.6 oz pur e alcohol) Comments No Sex and Gender Information Value Date Recorded Sex Assigned at Not on file Legal Sex Female 9:43 PM CDT Gender Identity Not on file Sexual Orientation Not on file documented as of this encounter Plan of Treatment Not on file documented as of this encounter Visit Diagnoses Not on filedocumented in this encounter Care Teams Safety And Skill Based Pay Manager Relationship Specialty Start Date End Date Tom Paz MD [address] [place] [id number] PCP - General Family Practice 01/28/22 documented as of this encounter
--- OUTSIDE RECORDS SUMMARY | 2024-09-22 15:08 | XMS_ITS | Continuity of Care Document ---
Author Organization [facility] Address [address] [place] [address] [address] [place] [address] Phone Care Team Providers Care Cloth Examiner Name Role Phone Anthony Gutierrez Unavailable Unavailable [...] Providers Copied on Encounter Office/outpat ient Visit, [facility], [address] [place] [address] [address], [place], [place], [id number], [place] tel:[phone] SEC [facility] No Information 0 0 Krishnasamy Anthony. [address] [facility] [address], [place], [address], [place]. tel:[phone] Office/outpat ient Visit, [facility], [address] [place] [address] [address], [place], [place], [id number], [place] tel:[phone] SEC [facility] [place] No Information 0 0 Krishnasamy Anthony. [address] [facility] [place] [address], [place], [place], [facility], [place]. tel:[phone] Office/outpat ient Visit, [facility], [address] [place] [address] [address], [place], [place], [id number], [place] tel:[phone] SEC [facility] No Information Fe-2 3-201 0 Krishnasamy Anthony. [address] [facility] [place] [address], [place], [place], [facility], [place]. tel:[phone] [facility], [address] [place] [address] [address], [place], [place], [id number], [place] tel:[phone] SEC [facility] No Information Jan-3 1-200 9 Krishnasamy Anthony. [facility] [address], [place], [place], [facility], [place]. tel:[phone] [facility], [address] [place] [address] [address], [place], [place], [id number], [place] tel:[phone] SEC [facility] No Information You-2 2-200 9 Krishnasamy Anthony. [address] [place], [place] [address]ate [place] [address], [place], [place], [facility], [place]. tel:[phone] [facility], [address] [place] [address] [address], [place], [place], [id number], [place] tel:[phone] [facility] [place] No Information May-0 8-200 9 Krishnasamy Anthony. [facility] [place] [address], [place], [place], [facility], [place]. tel:[phone] [facility], [address], [place], [place], [id number], [place] tel:[phone] [facility] No Information Apr-2 8-200 7 Montes OD Simone. [address], [place], [place], [facility], [place]. tel:[phone] Family History Family Member Type Diagnosis Age At Onset No Information Payers Payer name Insurance type Covered green party ID Authoriza tion(s) Medicare [facility] [id number] Medicaid [facility] [id number] Social History Type Description Quantity Date Captured [...]
--- OUTSIDE RECORDS SUMMARY | 2024-09-22 15:08 | XMS_ITS | Encounter Summary ---
Author Organization [facility] Healthcare Address [address] [place] [address] Care Team Providers Care Television Technician Name Role Phone Tom Paz MD Primary Care Provider [phone] Tab Taylor MD Unavailable [phone] Favian Caceres MD Unavailable Encounter Details Date Type Department Care Team (Late st Contact Info) Description 02/11/2024 Documentation [facility] Case Management [address] [place], [place] [id number] Gaviota Benz, RN Social History Tobacco Use Types Packs/Day Years Used Date Smoking Tobacco: Never Passive Smoke Exposure: Past Smokeless Tobacco: Never Alcohol Use Standard Drinks/Week Comments No 0 (1 standard drink = 0.6 oz pur e alcohol) [facility] Utilities Answer Date Recorded In the past 12 months has [employer] gas, oil, or water [employer] threatened to shut off services in your [...] often do you attend chur ch or baptism services? More than 4 times per year 02/11/2024 Do you belong to any clubs o r organizations such as hoahaoism groups, unions, fraternal or athletic groups, or school groups? No 02/11/2024 How often do you attend meet ings of the clubs or organizations you belong to? Never 02/11/2024 Are you , , di vorced, , never , or living with a partner? 02/11/2024 AUDIT-C Answer Date Recorded Q1: How often do you have a drink containing alcohol? Never 02/11/2024 Q2: How many drinks containi ng alcohol do you have on a typical day when you are drinking? Patient does not drink Q3: How often do you have si x or more drinks on one occasion? Never 02/11/2024 Overall Financial Resource Strain (CARDIA) Answe r [...] place to sleep or slept in a halfway (including now)? No 11/02/2023 Housing Stability Vital Sign Answer Thang e Recorded In the last 12 months, was t here a time when you were not able to pay the mortgage or rent on time? No 02/11/2024 In the past 12 months, how m any times have you moved where you were living? 0 02/11/2024 At any time in the past 12 m [facility], were you homeless or living in a halfway (including now)? No 02/11/2024 Personal Safety Answer Date Recorded Have you ever been in or are you currently in a harmful physical or emotional relationship or is someone making you feel afraid or unsafe? Denies 02/09/2024 Comments No Sex and Gender Information Value Date Recorded Sex Assigned at Not on file Legal Sex Female 12:21 AM TESTING COORDINATOR Gender Identity Not on file Sexual Orientation Not on file documented as of this encounter Functional Status * Audit-C Score Answer Date of Assessment Author 0 02/11/2024 4:35 PM CDT Lamonte Benz, RN * Question Answer Date of Assessment Author Q1: How often do you have a drink containing alcohol? Never 02/11/2024 4:35 PM CDT Gaviota Benz R N Q2: How many drinks containing alcohol do you have on a typical day when you are drinking? Patient does not drink 02/11/2024 4:35 PM CDT Gaviota Benz RN Q3: How often do you have six or more drinks on one occasion? Never 02/11/2024 4:35 PM CDT Gaviota Benz, Marni N documented as of this encounter Miscellaneous Notes * Initial Assessments - Gaviota Benz RN - 02/11/2024 4:29 PM CDT 02/10/24 10:15 AM CM Initial Assessment Interview Note Information Obtained From: Patient (02/10/24614) Admission Source: Non Medical (Home) Impression: 58 y o female who presents for a planned LAAO Plan Includes: Patient admitted for a planned LAAO 02/08; BP meds administered; anti-anxiety meds administered Primary Source of Transportation: Does the patient need discharge transport arranged?: No (Family for transportation home) (02/10/24614) Health Insurance Coverage: Medicare and IDPA Prescription Coverage: Yes Pharmacy: [id number] [place], [place] - [address] [facility] [facility] [address] [id number] [place] [facility] [address] [facility] [address] [facility] - [place], [place] - [address] [facility] [address] 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) Outpatient Services: No Durable Medical Equipment: Walker (wheeled), Quad cane Living Arrangements: Alone Type of Residence: Apartment Steps in home?: No steps inside or outside Medication management: Independent (02/10/24 0615) SDOH: Transportation: In the past 12 months, has lack of transportation kept you from medical appointments or from getting medications?: No In the past 12 months, has lack of transportation kept you from meetings, work, or from getting things needed for daily living?: No (02/11/24 1634) Financial Resource: How hard is it for you to pay for the very basics like food, housing, medical care, and heating?: Somewhat hard (SW consult) (02/11/24 1633) Housing: In the last 12 months, was there a time when you were not able to pay the mortgage or rent on time?: No In the past 12 months, how many times have you moved where you were living?: 0 At any time in the past 12 months, were you homeless or living in a halfway (including now)?: No (02/11/24 1634) Utilities: Yes (SW Consult), (02/11/24 1635) Social Connections: In a typical week, how many times do you talk on the phone with family, friends, or neighbors?: Once a week How often do you get together with friends or relatives?: Once a week How often do you attend hoahaoism or baptism services?: More than 4 times per year Do you belong to any clubs or organizations such as hoahaoism groups, unions, fraternal or athletic groups, or school groups?: No How often do you attend meetings of the clubs or organizations you belong to?: Never Are you , , , , never , or living with a partner?: (02/11/24 163) Food Insecurity: Within the past 12 months, you worried that your food would run out before you got the money to buymore.: Never true Within the past 12 months, the food you bought just didn't last and you didn't have money to get more.: Never true (02/11/241633) Alcohol Use: Q1: How often do you have a drink containing alcohol?: Never Q2: How many drinks containing alcohol do you have on a typical day when you are drinking?: Patientdoes not drink Q3: How often do you have six or more drinks on one occasion?: Never (02/11/24 163) PHQ Screening Potential discharge needs include: Home Health: None (02/10/24614) OP Services: Dialysis: Behavioral Health Services: Behavioral Health Services: No (02/10/24614) Anticipated Level of Care: Anticipated discharge level of care: Private residence Pt/Family agrees with Anticipated Level of Care: Yes (02/10/24614) Patient expects to be Discharged to: Private residence, (02/10/24614) Additional Information: CM met with patient at bedside to complete initial assessment. Address and phone number verified with face sheet. When medically stable, patient will discharge to home. Patient lives in a private residence with alone and reports needing assistance with ADLs. Has a daycare worker and has a quad cane and a wheeled walker. Patient's Identified Problem/Goal Problem: Ensure acute medical needs are met and that patient has a safe discharge plan. Goal: Secure a discharge plan that patient/family are agreeable with and ensure patient has continuum of care. Case management will follow for discharge planning and send referrals as needed. Goals include: To assure continuity of care, To maximize coping skills, To assure patient is in a safe environment and To assure access to community resources. Plan includes: 1. Collaboration with Patient, Provider, Direct Care Nurse, Trap Setter, and other members of theHealth Care Team to assure needed interventions completed. 2. Return patient to optimal level of self-care post discharge. 3. Gas Plant Repairer will follow for Discharge Planning - interventions as needed 4. Anticipated level of care at discharge 5. Planned Discharge Disposition SONALI Brothers, RN luggage liner [phone] documented in this encounter Plan of Treatment Not on [...] on stairs Contact your local community or athol hospital for information on exercise, fall prevention programs, or options for improving home safety. documented as of this encounter Visit Diagnoses Not on filedocumented in this encounter Care Teams Television Technician Relationship Specialty Start Date End Date Tom Paz MD PCP - General 09/09/16 Tab Taylor MD [address] [place] [address] Consulting Physician Cardiology 01/03/20 Favian Caceres MD [address] [place] [address] Consulting Physician Rheumatology 08/28/23 documented as of this encounter
--- OUTSIDE RECORDS SUMMARY | 2024-09-22 15:08 | XMS_ITS | CONTINUITY OF CARE DOCUMENT ---
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 Hugo Ordoñez MD Hypotension active Malina Blood CCM SYNCOPE active Hugo Ordoñez MD Palpitations active Hugo Ordoñez MD CCM En roll Venous thrombosis active Hugo Ordoñez MD Inappropriate sinus tachycardia active Rodo Berg MD Shortness of breath active Hugo Ordoñez MD Edema - localized active Hugo Ordoñez MD Diastolic heart failure, chronic active Hugo Ordoñez MD SVT S/P ablation active Huog Ordoñez MD CC M Enroll Hyperlipidemia active Hugo Ordoñez MD Atrial Fibrillation s/p AMULET active Morgan Roy MD CCM Presence of implantable loop recorder completed - Evelia Aureliano Sinus node dysfunction active Tab wilcox MD COVID-19 asymptomatic, no exposure, testing results unknown or negative screening active Hugo Ordoñez MD Ischemia, transient cerebral NOS active Hugo Ordoñez MD Groin pain, right active Morgan Roy MD ENCOUNTERS Date Type Provider Location Encounter Diag nosis - In-person encounter Office Visit Hugo Ordoñez MD [facility] - In-person encounter Office Visit Hugo Ordoñez MD [facility] - In-person encounter Office Visit Trent Pike MD [facility] - In-person encounter Office Visit Hugo Ordoñez MD [facility] - In-person encounter Office Visit Hugo Ordoñez MD [facility] - In-person encounter Office Visit Morgan Roy MD [facility] Atrial Fibrillation s/p AMULETGroin pain, right - In-person encounter Office Visit Hugo Ordoñez MD [facility] - In-person encounter Office Visit Hugo Ordoñez MD [facility] - In-person encounter Office Visit Hugo Ordoñez MD [facility] - In-person encounter Office Visit Hugo Ordoñez MD [facility] - In-person encounter Office Visit Hugo Ordoñez MD [facility] - In-person encounter Office Visit Hugo Ordoñez MD [facility] - In-person encounter Office Visit Morgan Roy MD [facility] - In-person encounter Office Visit Hugo Ordoñez MD [facility] Ischemia, transient cerebral NOS - In-person encounter Office Visit Hugo Ordoñez MD [facility] - In-person encounter Office Visit Hugo Ordoñez MD [facility] - In-person encounter Office Visit Hugo Ordoñez MD [facility] - In-person encounter Office Visit Hugo Ordoñez MD [facility] - In-person encounter Office Visit Hugo Ordoñez MD [facility] - In-person encounter Office Visit Hugo Ordoñez MD [facility] - In-person encounter Office Visit Hugo Ordoñez MD [facility] COVID-19 asymptomatic, no exposure, testing results unknown or negative screening - In-person encounter Office Visit Hugo Ordoñez MD [facility] - In-person encounter Office Visit Hugo Ordoñez MD [facility] - In-person encounter Office Visit Hugo Ordoñez MD [facility] - In-person encounter Office Visit Hugo Ordoñez MD [facility] - In-person encounter Office Visit Giorgio Catalan MD [facility] - In-person encounter Office Visit Hugo Ordoñez MD [facility] - In-person encounter Office Visit Hugo Ordoñez MD [facility] - In-person encounter Office Visit Hugo Ordoñez MD [facility] - In-person encounter Office Visit Jean Claude Calixto DO [facility] - In-person encounter Office Visit Hugo Ordoñez MD [facility] - In-person encounter Office Visit Jean Claude Calixto DO [facility] - In-person encounter Office Visit Jean Claude Calixto DO [facility] Office - In-person encounter Office Visit Hugo Ordoñez MD [facility] - In-person encounter Office Visit Tab Taylor MD [facility] - In-person encounter Office Visit Hugo Ordoñez MD [facility] - In-person encounter Office Visit Hugo Ordoñez MD [facility] - In-person encounter Office Visit Tab Taylor MD [facility] - In-person encounter Office Visit Tab Taylor MD [facility] - In-person encounter Office Visit Tab Taylor MD [facility] - In-person encounter Office Visit Tab Taylor MD [facility] - In-person encounter Office Visit Hugo Ordoñez MD [facility] - In-person encounter Office Visit Tab Taylor MD [facility] - In-person encounter Office Visit Hugo Ordoñez MD [facility] - In-person encounter Office Visit Tab Taylor MD [facility] Sinus node dysfunction - In-person encounter Office Visit Hugo Ordoñez MD [facility] - In-person encounter Office Visit Tab Taylor MD [facility] - In-person encounter Office Visit Hugo Ordoñez MD [facility] - In-person encounter Office Visit Tab Taylor MD [facility] - In-person encounter Office Visit Tab Taylor MD [facility] Presence of implantable loop recorder - In-person encounter Office Visit Tab Taylor MD [facility] Atrial Fibrillation s/p AMULET - In-person encounter Office Visit Hugo Ordoñez MD [facility] Hyperlipidemia - In-person encounter Office Visit Hugo Ordoñez MD [facility] - In-person encounter Office Visit Hugo Ordoñez MD [facility] - In-person encounter Office Visit Tab Taylor MD [facility] - In-person encounter Office Visit Tab Taylor MD [facility] SVT S/P ablation - In-person encounter Office Visit Tab Taylor MD [facility] - In-person encounter Office Visit Hugo Ordoñez MD [facility] - In-person encounter Office Visit Hugo Ordoñez MD [facility] - In-person encounter Office Visit Hugo Ordoñez MD [facility] Diastolic heart fail ure, chronic - In-person encounter Office Visit Hugo Ordoñez MD [facility] Shortness of breathEdema - localized - In-person encounter Office Visit Rodo Berg MD [facility] - In-person encounter Office Visit Rodo Berg MD [facility] - In-person encounter Office Visit Hugo Ordoñez MD [facility] - In-person encounter Office Visit Rodo Berg MD [facility] Inappropriate sinus tachycardia - In-person encounter Office Visit Rodo Berg MD [facility] - In-person encounter Office Visit Rodo Berg MD [facility] - In-person encounter Office Visit Hugo Ordoñez MD [facility] - In-person encounter Office Visit Hugo Ordoñez MD [facility] - In-person encounter Office Visit Genaro Jane MD [facility] - In-person encounter Office Visit Hugo Ordoñez MD [facility] - In-person encounter Office Visit Hugo Ordoñez MD [facility] Venous thrombosis - In-person encounter Office Visit uHgo Ordoñez MD [facility] - In-person encounter Office Visit Hugo Ordoñez MD [facility] Palpitations - In-person encounter Office Visit Hugo Ordoñez MD [facility] - In-person encounter Office Visit Hugo Ordoñez MD [facility] - In-person encounter Office Visit Hugo Ordoñez MD [facility] - In-person encounter Office Visit Hugo Ordoñez MD [facility] - In-person encounter Office Visit Hugo Ordoñez MD [facility] - In-person encounter Office Visit Hugo Ordoñez MD [facility] - In-person encounter Office Visit Hugo Ordoñez MD [facility] - In-person encounter Office Visit Hugo Ordoñez MD [facility] - In-person encounter Office Visit Hugo Ordoñez MD [facility] - In-person encounter Office Visit Hugo Ordoñez MD [facility] REFLEX SYMPATHETIC DYSTROPHY OF THE LOWER LIMBHypotensionSYNCOPE VITAL SIGNS Date Observation Value Provider Body Mass Index (Ratio) 29.13 kg/m2 Bruce Ordoñez MD blood pressure, cuff size regular As elizabeth Lopes blood pressure, diastolic 76 mm[Hg] As elizabeth Lopes blood pressure, systolic 102 mm[Hg] Vince Lopes pulse rate 72 /min Linda Lopes oxygen saturation, oximetry 98 % Linda Lopes weight E&M 194.4 [lb_av] Linda Lopes Body Mass Index (Ratio) 29.37 kg/m2 Gildardo as Porfirio blood pressure, cuff size regular Ke rri Heidi blood pressure, diastolic 80 mm[Hg] Ke rri Rashiduenenffreddie blood pressure, systolic 126 mm[Hg] Ker ri Heidi oxygen saturation, oximetry 97 % Kendra Heidi pulse rate 77 /min Kendra Washingtonnfsammi [facility] weight E&M 196 [lb_av] Kendra Rere [facility] height E&M 68.5 [in_i] Kendra Conradonekatie [facility] Body Mass Index (Ratio) 29.51 kg/m2 Madison Pike MD blood pressure, diastolic 60 mm[Hg] Madeline nkLogic blood pressure, systolic 100 mm[Hg] Amee kLog oxygen saturation, oximetry 98 % Kendra Heidi pulse rate 70 /min Kendar Gruenenfe er blood pressure, diastolic 60 mm[Hg] Ke rri Gruenenfeldearl blood pressure, systolic 100 mm[Hg] Ker ri Rashiduenenffreddie weight E&M 197 [lb_av] Kendra Gruenenfe lder height E&M 68.5 [in_i] Kendra Gruenenfe [facility] Body Mass Index (Ratio) 29.37 kg/m2 Bruce Ordoñez MD blood pressure, cuff size regular Ke rri Conradonesallieelder blood pressure, diastolic 70 mm[Hg] Ke rri Luluelder blood pressure, systolic 130 mm[Hg] Kera Lawsoneldearl oxygen saturation, oximetry 96 % Kendra Lawsonfreddie respiratory rate E&M 12 /min Kendra godinezenesallieeld pulse rate 91 /min Kendra Jernigan [facility] weight E&M 196 [lb_av] Kendra Rere [facility] height E&M 68.5 [in_i] Kendra Jernigan [facility] Body Mass Index (Ratio) 28.77 kg/m2 Bruce Ordoñez MD blood pressure, cuff size regular Syed stewart [place]ulkner blood pressure, diastolic 88 mm[Hg] Ta bitha Faulkner blood pressure, systolic 128 mm[Hg] Tab karena Faulkner oxygen saturation, oximetry 99 % Padmaja Faulkner pulse rate 92 /min Padmaja [place]ner weight E&M 192 [lb_av] Padmaja Faulkner respiratory rate E&M 12 /min Padmaja Faulkner height E&M 68.5 [in_i] Padmaja Faulkner pulse rate 70 /min Linda Lopes blood pressure, diastolic 75 mm[Hg] As elizabeth Lopes blood pressure, systolic 109 mm[Hg] Vince Lopes Body Mass Index (Ratio) 29.81 kg/m2 Payt on Carmenza blood pressure, cuff size regular Ta pat Faulkner blood pressure, diastolic 80 mm[Hg] Ta bitha Faulkner blood pressure, systolic 118 mm[Hg] Tab itha Faulkner oxygen saturation, oximetry 96 % Padmaja Faulkner respiratory rate E&M 12 /min Padmaja Faulkner pulse rate 70 /min Padmaja Fa[place]ner weight E&M 199 [lb_av] Padmaja Faulkner height E&M 68.5 [in_i] Padmaja Faulkner Body Mass Index (Ratio) 30.26 kg/m2 Bruce Ordoñez MD blood pressure, cuff size regular Ke rri Gruenenfelder blood pressure, diastolic 80 mm[Hg] Ke rri Gruenenfelder blood pressure, systolic 132 mm[Hg] Kera ri Gruenenfelder oxygen saturation, oximetry 96 % Kendra Conradonenfeldearl respiratory rate E&M 12 /min Kendra G gretchenenenfelder pulse rate 87 /min Kendra Gruenenfe er weight E&M 202 [lb_av] Kendra Gruenenfe er height E&M 68.5 [in_i] Kendra Gruenenfe [facility] Body Mass Index (Ratio) 29.66 kg/m2 Bruce Ordoñez MD blood pressure, cuff size regular Ke rri Gruenenfelder blood pressure, diastolic 86 mm[Hg] Ke rri Gruenenfelder blood pressure, systolic 130 mm[Hg] Ker ri Gruenenfelder oxygen saturation, oximetry 98 % Kendra Gruenenfelder respiratory rate E&M 12 /min Kendra G ruenenfelder pulse rate 74 /min Kendra Gruenenfe lder weight E&M 198 [lb_av] Kendra Gruenenfe lder height E&M 68.5 [in_i] Kendra Lulue [facility] Body Mass Index (Ratio) 29.37 kg/m2 Rishabh Montilla blood pressure, cuff size regular Ke rri Gruenenffreddie blood pressure, diastolic 90 mm[Hg] Ke rri Gruenenfelder blood pressure, systolic 140 mm[Hg] Kera ri Heidi pulse rate 108 /min Kendra Rashidkelsienfe [facility] oxygen saturation, oximetry 97 % Kendra Heidi respiratory rate E&M 12 /min Kendra Cally navarro weight E&M 196 [lb_av] Kendra Rere gonsalez height E&M 68.5 [in_i] Kendra Rere gonsalez Body Mass Index (Ratio) 29.37 kg/m2 Bruce Ordoñez MD blood pressure, diastolic 81 mm[Hg] An gem Collins blood pressure, systolic 115 mm[Hg] Bhakti Collins pulse rate 70 /min Brenda Collins oxygen saturation, oximetry 98 % Brenda Collins weight E&M 196 [lb_av] Brenda Collins blood pressure, cuff size large An gem Collins height E&M 68.5 [in_i] Brenda Collins Body Mass Index (Ratio) 29.81 kg/m2 Bruce Ordoñez MD blood pressure, cuff size regular Ke rri Heidi blood pressure, diastolic 82 mm[Hg] Ke rri Heidi blood pressure, systolic 142 mm[Hg] Kera Gordon oxygen saturation, oximetry 97 % Kendra Heidi respiratory rate E&M 12 /min Kendra navarro pulse rate 79 /min Kendra Rere [facility] weight E&M 199 [lb_av] Kendra Rere [facility] height E&M 68.5 [in_i] Kendra Rere [facility] Body Mass Index (Ratio) 29.07 kg/m2 Kam Roy MD blood pressure, diastolic 89 mm[Hg] An gem Dennis blood pressure, systolic 122 mm[Hg] Any a Dennis blood pressure, cuff size large An [facility] pulse rate 71 /min Brenda oxygen saturation, oximetry 92 % Bredna Dennis weight E&M 194 [lb_av] Brenda Dennis height E&M 68.5 [in_i] Brenda Dennis Body Mass Index (Ratio) 29.22 kg/m2 Bruce Ordoñez MD blood pressure, diastolic 87 mm[Hg] An gem Dennis blood pressure, systolic 125 mm[Hg] Any a Dennis pulse rate 79 /min Brenda Dennis blood pressure, cuff size large An [facility] oxygen saturation, oximetry 98 % Brenda Dennis weight E&M 195 [lb_av] Brenda Dennis height E&M 68.5 [in_i] Brendajulia Collins Body Mass Index (Ratio) 28.92 kg/m2 Bruce Ordoñez MD blood pressure, cuff size regular Ke rri Heidi blood pressure, diastolic 80 mm[Hg] Ke rri Heidi blood pressure, systolic 126 mm[Hg] Kera Grodon oxygen saturation, oximetry 98 % Kendra Gordon respiratory rate E&M 12 /min Kendra navarro pulse rate 75 /min Kendra Rashiduenesalliee [facility] weight E&M 193 [lb_av] Kendra Lulue [facility] height E&M 68.5 [in_i] Kendra Rashiduenenfe [facility] Body Mass Index (Ratio) 29.51 kg/m2 Bruce Ordoñez MD blood pressure, diastolic 97 mm[Hg] Madeline nkLog blood pressure, systolic 136 mm[Hg] Amee kLog weight E&M 197 [lb_av] Brendajulia Collins blood pressure, diastolic 97 mm[Hg] An gem Collins blood pressure, systolic 136 mm[Hg] Bhakti julia Collins oxygen saturation, oximetry 97 % Brenda Collins pulse rate 70 /min Brenda Collins height E&M 68.5 [in_i] Brenda Collins blood pressure, cuff size large An gem Collins Body Mass Index (Ratio) 28.47 kg/m2 Bruce Ordoñez MD blood pressure, cuff size large Ke rri Heidi blood pressure, diastolic 80 mm[Hg] Ke rri Heidi blood pressure, systolic 110 mm[Hg] Kera ri Heidi oxygen saturation, oximetry 98 % Kendra Heidi respiratory rate E&M 16 /min Kendra G melanie pulse rate 81 /min Kendra Rere [facility] weight E&M 190 [lb_av] Kendra Rere [facility] height E&M 68.5 [in_i] Kendra Conradonekatie [facility] Body Mass Index (Ratio) 28.47 kg/m2 Bruce Ordoñez MD blood pressure, diastolic 76 mm[Hg] Sa ra Jc blood pressure, systolic 112 mm[Hg] Elida a Jc oxygen saturation, oximetry 98 % Janelle Jc respiratory rate E&M 18 /min Janelle Si ms pulse rate 74 /min Janelle Jc blood pressure, cuff size regular Sa ra Jc weight E&M 190 [lb_av] Janelle Jc height E&M 68.5 [in_i] Janelle Jc Body Mass Index (Ratio) 28.77 kg/m2 Bruce Ordoñez MD blood pressure, cuff size large Ke rri Heidi blood pressure, diastolic 84 mm[Hg] Ke rri Lulueldearl blood pressure, systolic 126 mm[Hg] Kera Gordon oxygen saturation, oximetry 99 % Kendra Gordon respiratory rate E&M 14 /min Kendra navarro pulse rate 82 /min Kendra Jernigan [facility] weight E&M 192 [lb_av] Kendra Jeringan er height E&M 68.5 [in_i] Kendra Jernigan [facility] Body Mass Index (Ratio) 28.77 kg/m2 Bruce Ordoñez MD blood pressure, diastolic 75 mm[Hg] Joanie Santamaria blood pressure, systolic 117 mm[Hg] Sujatha Santamaria oxygen saturation, oximetry 98 % Rachel Santamaria respiratory rate E&M 20 /min Deepthi Santamaria pulse rate 86 /min Rachel norton weight E&M 192 [lb_av] Rachel Lakhwinder errol blood pressure, cuff size regular Joanie Santamaria height E&M 68.5 [in_i] Rachel norton Body Mass Index (Ratio) 27.57 kg/m2 Bruce Ordoñez MD blood pressure, diastolic 97 mm[Hg] Ca therine [place] blood pressure, systolic 138 mm[Hg] Cat herine Travis oxygen saturation, oximetry 97 % Corinne Travis respiratory rate E&M 16 /min Catheri ne Travis pulse rate 76 /min Corinne [place] weight E&M 184 [lb_av] Corinne [place] blood pressure, cuff size regular Ca therine Travis height E&M 68.5 [in_i] Corinne Travis Body Mass Index (Ratio) 27.27 kg/m2 Bruce Ordoñez MD blood pressure, diastolic 95 mm[Hg] Li nkLogic blood pressure, systolic 133 mm[Hg] Amee kLogic blood pressure, diastolic 95 mm[Hg] Ca therine Travis blood pressure, systolic 133 mm[Hg] Cat herine [place] oxygen saturation, oximetry 98 % Corinne Travis respiratory rate E&M 18 /min Catheri ne [place] pulse rate 92 /min Corinne Travis weight E&M 182 [lb_av] Corinne Travis blood pressure, cuff size regular Ca therine [place] height E&M 68.5 [in_i] Corinne Travis Body Mass Index (Ratio) 28.32 kg/m2 Bruce Ordoñez MD blood pressure, diastolic 70 mm[Hg] Li nkLogic blood pressure, systolic 110 mm[Hg] Amee kLogic blood pressure, cuff size regular Sa ra Jc blood pressure, diastolic 70 mm[Hg] Sa ra Jc blood pressure, systolic 110 mm[Hg] Elida a Jc oxygen saturation, oximetry 98 % Janelle Jc respiratory rate E&M 19 /min Janelle Si ms pulse rate 69 /min Janelle Jc weight E&M 189 [lb_av] Janelle Jc height E&M 68.5 [in_i] Janelle Jc blood pressure, cuff size regular Pa ris [place] blood pressure, diastolic 74 mm[Hg] Pa ris Ford blood pressure, systolic 136 mm[Hg] Par is [place] oxygen saturation, oximetry 98 % Sophia [place] respiratory rate E&M 18 /min Sophia H neda pulse rate 74 /min Sophia [place] height E&M 68.5 [in_i] Sophia [place] Body Mass Index (Ratio) 28.35 kg/m2 Sund brad Catalan MD blood pressure, cuff size regular Tr jennifer Sibley blood pressure, diastolic 80 mm[Hg] Tr jennifer Sibley blood pressure, systolic 120 mm[Hg] Love Sibley oxygen saturation, oximetry 98 % Melanie Sibley respiratory rate E&M 16 /min Melanie Sibley pulse rate 60 /min Melanie Sibley weight E&M 189.2 [lb_av] Melanie Garg s height E&M 68.5 [in_i] Melanie Sibley blood pressure, diastolic 102 mm[Hg] Li nkLogic blood pressure, systolic 125 mm[Hg] Amee kLogic blood pressure, cuff size regular Ca therine Travis blood pressure, diastolic 102 mm[Hg] Ca therine [place] blood pressure, systolic 125 mm[Hg] Cat herine [place] oxygen saturation, oximetry 96 % Corinne [place] respiratory rate E&M 14 /min Catheri ne [place] pulse rate 92 /min Corinne [place] height E&M 68.5 [in_i] Corinne Travis Body Mass Index (Ratio) 29.07 kg/m2 Bruce Ordoñez MD blood pressure, diastolic 90 mm[Hg] Madeline nkLogic blood pressure, systolic 136 mm[Hg] Amee kLogic blood pressure, diastolic 90 mm[Hg] Mi juan [place] blood pressure, systolic 136 mm[Hg] Cayden helanya Manolo oxygen saturation, oximetry 98 % Denise Manolo respiratory rate E&M 18 /min Kimberly suárez [place] pulse rate 67 /min Denise Manolo weight E&M 194 [lb_av] Denise Manolo height E&M 68.5 [in_i] Denise Manolo Body Mass Index (Ratio) 28.77 kg/m2 Bruce Ordoñez MD blood pressure, diastolic 80 mm[Hg] Madeline nkLogic blood pressure, systolic 118 mm[Hg] Amee kLogic blood pressure, cuff size regular Kr isty [place] pulse rate 65 /min Va Chris blood pressure, diastolic 80 mm[Hg] Kr isty [place] blood pressure, systolic 118 mm[Hg] Kri stefrem [place] oxygen saturation, oximetry 97 % Va [place] respiratory rate E&M 19 /min Va Chris weight E&M 192 [lb_av] Va Chris height E&M 68.5 [in_i] Va [place] Body Mass Index (Ratio) 28.62 kg/m2 Denn is Whiteside DO blood pressure, cuff size large Ke rri Conradonenfelder blood pressure, diastolic 72 mm[Hg] Ke rri Conradonenfelder blood pressure, systolic 110 mm[Hg] Kera [facility]st [facility] oxygen saturation, oximetry 98 % Kendra [facility] respiratory rate E&M 16 /min Kendra Alamo gretchenenenfhouston [facility] pulse rate 75 /min Kendra Rere [facility] weight E&M 191 [lb_av] Kendra Conradonesalliee [facility] height E&M 68.5 [in_i] Kendra Lulusammi [facility] Body Mass Index (Ratio) 28.92 kg/m2 Bruce Ordoñez MD blood pressure, diastolic 85 mm[Hg] Fe clemente Nelson blood pressure, systolic 140 mm[Hg] Fel icia Nelson weight E&M 193 [lb_av] Mary Nelson oxygen saturation, oximetry 95 % Mary Nelson respiratory rate E&M 16 /min Mary Nelson pulse rate 96 /min Mary Nelson temperature E&M 97.8 [degF] Mary Nelson height E&M 68.5 [in_i] Mary Nelson Body Mass Index (Ratio) 28.62 kg/m2 Denn is Whiteside DO blood pressure, diastolic 72 mm[Hg] Mi juan Manolo blood pressure, systolic 130 mm[Hg] Cayden helle [place] blood pressure, resting No Román dent [place] oxygen saturation, oximetry 98 % Denise French respiratory rate E&M 18 /min Kimberly suárez [place] pulse rate 67 /min Denise Manolo weight E&M 191 [lb_av] Denise [place] height E&M 68.5 [in_i] Denise [place] Body Mass Index (Ratio) 27.57 kg/m2 JT S treepy blood pressure, diastolic 60 mm[Hg] Linda leal [place] blood pressure, systolic 110 mm[Hg] Gricelda linton [place] oxygen saturation, oximetry 95 % Lara [place] respiratory rate E&M 16 /min Lara O'Aly pulse rate 81 /min Lara [place] weight E&M 184 [lb_av] Lara O'Aly height E&M 68.5 [in_i] Lara O'Aly Body Mass Index (Ratio) 28.02 kg/m2 Bruce Ordoñez MD blood pressure, diastolic 74 mm[Hg] Cy jasper Franco blood pressure, systolic 116 mm[Hg] Anahy gustavo Franco oxygen saturation, oximetry 95 % Joslyn Franco pulse rate 86 /min Joslyn Campbel l respiratory rate E&M 16 /min Joslyn Franco blood pressure, cuff size regular Cy ntemilee Franco weight E&M 187 [lb_av] Joslyn Campbel l height E&M 68.5 [in_i] Joslyn Campbel l Body Mass Index (Ratio) 27.72 kg/m2 Emanuel Heller blood pressure, diastolic 109 mm[Hg] Fe clemente Nelson blood pressure, systolic 138 mm[Hg] Fel icia Nelson oxygen saturation, oximetry 95 % Mary Nelson respiratory rate E&M 16 /min Mary Nelson pulse rate 95 /min Mary Nelson weight E&M 185 [lb_av] Mary Nelson height E&M 68.5 [in_i] Mary Nelson Body Mass Index (Ratio) 27.57 kg/m2 Bruce Ordoñez MD oxygen saturation, oximetry 97 % Sania Warren pulse rate 104 /min Sania Block blood pressure, diastolic 86 mm[Hg] Br ittany Block blood pressure, systolic 122 mm[Hg] Jessica ttany Block weight E&M 184 [lb_av] Sania Block respiratory rate E&M 16 /min Brittan y Block height E&M 68.5 [in_i] [facility] Body Mass Index (Ratio) 27.72 kg/m2 Bruce Ordoñez MD oxygen saturation, oximetry 98 % [facility] pulse rate 91 /min [facility] blood pressure, diastolic 80 mm[Hg] Br ittany Block blood pressure, systolic 112 mm[Hg] Jessica ttany Block weight E&M 185 [lb_av] Sania Block respiratory rate E&M 16 /min [facility] height E&M 68.5 [in_i] [facility] Body Mass Index (Ratio) 27.72 kg/m2 Emanuel Heller blood pressure, cuff size regular Kr isty [place] pulse rate 89 /min [facility] [place] oxygen saturation, oximetry 99 % Va [place] blood pressure, diastolic 70 mm[Hg] Kr isty [place] blood pressure, systolic 122 mm[Hg] Kri sty [place] respiratory rate E&M 19 /min Va [place] weight E&M 185 [lb_av] Va [place] height E&M 68.5 [in_i] Va Chris Body Mass Index (Ratio) 26.82 kg/m2 Jord en Cam temperature site temporal Tonsha Hensley temperature E&M 95.6 [degF] Tonsha Hensley blood pressure, diastolic 94 mm[Hg] To nsha Hensley blood pressure, systolic 131 mm[Hg] Ton sha Hensley oxygen saturation, oximetry 93 % Tonsha Hensley pulse rate 97 /min Tonsha Hensley respiratory rate E&M 16 /min Tonsha Hensley weight E&M 179 [lb_av] Tonsha Hensley height E&M 68.5 [in_i] Tonsha Hensley Body Mass Index (Ratio) 27.27 kg/m2 Bruce Ordoñez MD blood pressure, diastolic 72 mm[Hg] To nsha Hensley blood pressure, systolic 139 mm[Hg] Ton sha Hensley oxygen saturation, oximetry 98 % Tonsha Hensley respiratory rate E&M 16 /min Tonsha Hensley pulse rate 84 /min Tonsha Hensley temperature site temporal Tons Hensley temperature E&M 96.4 [degF] Tonsha Hensley weight E&M 182 [lb_av] Tonsha Hensley height E&M 68.5 [in_i] Tonsha Hensley Body Mass Index (Ratio) 27.12 kg/m2 Jord en Cam blood pressure, diastolic 88 mm[Hg] Br ittany Block blood pressure, systolic 130 mm[Hg] Jessica tony Block pulse rate 94 /min Sania Block oxygen saturation, oximetry 97 % Sania Block weight E&M 181 [lb_av] Sania Block respiratory rate E&M 16 /min Brittan y Block height E&M 68.5 [in_i] Yenifer Rocha Body Mass Index (Ratio) 27.72 kg/m2 Bruce Ordoñez MD respiratory rate E&M 16 /min [facility] blood pressure, diastolic 97 mm[Hg] [facility], [facility][Hg] [facility] oxygen saturation, oximetry 98 % [facility] pulse rate 94 /min [facility] weight E&M 185 [lb_av] [facility] height E&M 68.5 [in_i] [facility] Body Mass Index (Ratio) 27.87 kg/m2 Emanuel Heller blood pressure, diastolic 96 mm[Hg] Er ica Pruitt-Kashif blood pressure, systolic 140 mm[Hg] Mireya ca Edmond-Kashif oxygen saturation, oximetry 98 % Velmatony Pruitt-Kashif pulse rate 84 /min Velmatony Pruitt- Kashif weight E&M 186 [lb_av] Velma Pruitt- Kashif height E&M 68.5 [in_i] Velma Pruitt- Kashif Body Mass Index (Ratio) 27.72 kg/m2 Bruce Ordoñez MD oxygen saturation, oximetry 99 % Chastity Jaime pulse rate 88 /min Chastity Jaime blood pressure, diastolic 84 mm[Hg] Ch astity Jaime blood pressure, systolic 130 mm[Hg] Gisele stity Jaime respiratory rate E&M 16 /min Chastit y Jaime weight E&M 185 [lb_av] Chastity Jaime height E&M 68.5 [in_i] Chastity Jaime Body Mass Index (Ratio) 28.17 kg/m2 Grisel Levy blood pressure, diastolic 90 mm[Hg] Er ica Pruitt-Kashif blood pressure, systolic 126 mm[Hg] Mireya ca Pruitt-Kashif oxygen saturation, oximetry 98 % Velma Pruitt-Kashif pulse rate 80 /min Velma Rowland weight E&M 188 [lb_av] Velma Rowland height E&M 68.5 [in_i] Velma Rowland Body Mass Index (Ratio) 28.02 kg/m2 Bruce Ordoñez MD blood pressure, cuff size regular Cy jasper Franco blood pressure, diastolic 80 mm[Hg] Cy jasper Franco blood pressure, systolic 108 mm[Hg] Anahy gustavo Franco oxygen saturation, oximetry 96 % Joslyn Franco respiratory rate E&M 16 /min Joslyngustavo Franco pulse rate 100 /min Joslyn Glover l weight E&M 187 [lb_av] Joslyn Mendezbel l height E&M 68.5 [in_i] Joslyn Mendezbel l Body Mass Index (Ratio) 28.02 kg/m2 Jord en Cam blood pressure, diastolic 80 mm[Hg] Br ittany Block blood pressure, systolic 130 mm[Hg] Jessica ttany Block pulse rate 111 /min Sania Block oxygen saturation, oximetry 97 % Sania Block weight E&M 187 [lb_av] Sania Block respiratory rate E&M 16 /min Brittan y Block height E&M 68.5 [in_i] Sania Block Body Mass Index (Ratio) 28.92 kg/m2 Jord en Cam pulse rate 96 /min Sania Block blood pressure, diastolic 84 mm[Hg] Br ittany Block blood pressure, systolic 140 mm[Hg] Jessica ttany Block oxygen saturation, oximetry 98 % Sania Block weight E&M 193 [lb_av] Sania Block respiratory rate E&M 16 /min Brittan y Block height E&M 68.5 [in_i] Sania Block Body Mass Index (Ratio) 27.87 kg/m2 Grisel Levy blood pressure, diastolic 84 mm[Hg] Earl MathisKashif blood pressure, systolic 120 mm[Hg] Mireya Rordiguez oxygen saturation, oximetry 98 % Velma Rodriguez pulse rate 80 /min Velma Pruitt- Kashif weight E&M 186 [lb_av] Velma Pruitt- Kashif height E&M 68.5 [in_i] Velma Rowland Body Mass Index (Ratio) 27.72 kg/m2 Bruce Ordoñez MD blood pressure, cuff size regular Cy jasper Franco blood pressure, diastolic 68 mm[Hg] Cy jasper Franco blood pressure, systolic 124 mm[Hg] Anahy gustavo Franco oxygen saturation, oximetry 97 % Joslyn Franco respiratory rate E&M 16 /min Joslyn Franco pulse rate 88 /min Joslyn Glover l weight E&M 185 [lb_av] Joslyn Glover l height E&M 68.5 [in_i] Joslyn Mendezbel l Body Mass Index (Ratio) 27.87 kg/m2 Bruce Ordoñez MD pulse rate 107 /min Sania Warren blood pressure, diastolic 90 mm[Hg] Ryland gomez Block blood pressure, systolic 124 mm[Hg] Jessica Warren oxygen saturation, oximetry 97 % Sania Block weight E&M 186 [lb_av] Sania Block respiratory rate E&M 16 /min Brittan y Block height E&M 68.5 [in_i] Sania Block Body Mass Index (Ratio) 30.86 kg/m2 Bruce Ordoñez MD oxygen saturation, oximetry 95 % Chastity Jaime blood pressure, diastolic 98 mm[Hg] Ch astity Jaime blood pressure, systolic 142 mm[Hg] Gisele stity Jaime pulse rate 93 /min Chastity Jaime respiratory rate E&M 16 /min Chastit y Jaime weight E&M 206 [lb_av] Chastity Jaime height E&M 68.5 [in_i] [facility] pressure, cuff size large Cr ahmet Collins blood pressure, diastolic 90 mm[Hg] Cr ahmet Collins blood pressure, systolic 130 mm[Hg] Cry stakris Collins oxygen saturation, oximetry 98 % Ghazala Collins respiratory rate E&M 17 /min Ghazala Collins pulse rate 92 /min Ghazala castaneda height E&M 68.5 [in_i] Velma Rowland Body Mass Index (Ratio) 33.11 kg/m2 Cam Plurad blood pressure, diastolic 70 mm[Hg] Ma elvis O'Aly blood pressure, systolic 122 mm[Hg] Gricelda linton O'Aly respiratory rate E&M 16 /min Lara O'Aly oxygen saturation, oximetry 99 % Lara O'Aly pulse rate 90 /min Lara O'Aly weight E&M 221 [lb_av] Lara O'Aly height E&M 68.5 [in_i] Lara O'Aly Body Mass Index (Ratio) 34.16 kg/m2 Sammy Rock blood pressure, cuff size large Ke rri Heidi blood pressure, diastolic 86 mm[Hg] Ke rri Heidi blood pressure, systolic 148 mm[Hg] Ker ri Heidi oxygen saturation, oximetry 98 % Kendra Lawsonfeliciaearl respiratory rate E&M 20 /min Kendra cordovafeliciaearl pulse rate 76 /min Kendra Jernigan [facility] weight E&M 228 [lb_av] Kendra Jernigan er height E&M 68.5 [in_i] Kendra Jernigan [facility] Body Mass Index (Ratio) 34.01 kg/m2 Bruce Ordoñez MD blood pressure, diastolic 80 mm[Hg] astity Jaime blood pressure, systolic 120 mm[Hg] Gisele stity Jaime oxygen saturation, oximetry 97 % [facility] 73 [facility]min [facility] rate E&M 16 /min Chastit y Ajime weight E&M 227 [lb_av] [facility] height E&M 68.5 [in_i] [facility] Body Mass Index (Ratio) 33.71 kg/m2 rBuce Ordoñez MD blood pressure, diastolic 80 mm[Hg] Bradford Castilloby blood pressure, systolic 120 mm[Hg] Aguila Castilolby respiratory rate E&M 16 /min Va Castilloby oxygen saturation, oximetry 94 % [facility] [place] pulse rate 78 /min Va Chris blood pressure, cuff size regular Bradford Castilloby weight E&M 225 [lb_av] Va Chris height E&M 68.5 [in_i] [facility] [place] blood pressure, diastolic 94 mm[Hg] Carmela Carter blood pressure, systolic 132 mm[Hg] Jim Carter oxygen saturation, oximetry 97 % Nataly Carter respiratory rate E&M 15 /min Nataly Carter pulse rate 71 /min Nataly Emma height E&M 68.5 [in_i] [facility] ([facility] 32.60 kg/m2 Bruce Ordoñez MD blood pressure, cuff size regular Te jvkonstantin FloydMarguerite blood pressure, diastolic 78 mm[Hg] Te jv Marguerite blood pressure, systolic 126 mm[Hg] Ten mame Marguerite oxygen saturation, oximetry 97 % Elana Marguerite respiratory rate E&M 18 /min Elana Marguerite pulse rate 102 /min Elana Marguerite weight E&M 217.6 [lb_av] Elana topete Body Mass Index (Ratio) 32.21 kg/m2 Kiran Berg MD weight E&M 215 [lb_av] Deneen Westbrook blood pressure, cuff size regular Syed Westbrook pulse rate 74 /min Deneen Westbrook oxygen saturation, oximetry 95 % Deneen Westbrook respiratory rate E&M 18 /min Deneen Westbrook blood pressure, diastolic 90 mm[Hg] Syed [place] blood pressure, systolic 115 mm[Hg] Ayaz Westbrook height E&M 68.5 [in_i] Deneen Westbrook Body Mass Index (Ratio) 32.69 kg/m2 Kiran Berg MD blood pressure, cuff size regular Te jv Marguerite blood pressure, diastolic 94 mm[Hg] Te jvkonstantin FloydMarguerite blood pressure, systolic 150 mm[Hg] Jose mamekonstantin Everett oxygen saturation, oximetry 98 % Elana Everett respiratory rate E&M 18 /min Elana Floydhley pulse rate 87 /min Elana Marguerite blood pressure, resting No Nela Everett weight E&M 218.2 [lb_av] Elana topete Body Mass Index (Ratio) 31.16 kg/m2 Bruce Ordoñez MD blood pressure, diastolic 90 mm[Hg] Bradford coulter [place] blood pressure, systolic 130 mm[Hg] Bradfordi stefrem Castilloby pulse rate 95 /min [facility] [place] oxygen saturation, oximetry 97 % Va Chris respiratory rate E&M 16 /min Va Chris blood pressure, cuff size regular Bradford Castilloby weight E&M 208 [lb_av] Va Chris height E&M 68.5 [in_i] Va Chris blood pressure, diastolic 80 mm[Hg] Bradford Castilloby blood pressure, systolic 132 mm[Hg] Aguila stefrem Castilloby pulse rate 96 /min Va Chris oxygen saturation, oximetry 98 % [facility] [place] respiratory rate E&M 16 /min Va Chris Body Mass Index (Ratio) 30.02 kg/m2 Vin Perez weight E&M 200.4 [lb_av] [facility] [place] blood pressure, diastolic 97 mm[Hg] Hi ayan Larry blood pressure, systolic 136 mm[Hg] Tori enriqueza Larry pulse rate 98 /min Brianna Larry oxygen saturation, oximetry 99 % Brianna Larry respiratory rate E&M 16 /min Brianna Larry Body Mass Index (Ratio) 30.14 kg/m2 Mariola fernandez Larry weight E&M 201.2 [lb_av] Brianna Larry blood pressure, diastolic 90 mm[Hg] Bradford coulter Chris blood pressure, systolic 140 mm[Hg] Aguila stefrem Castilloby pulse rate 96 /min Va Perez oxygen saturation, oximetry 97 % Va Perez respiratory rate E&M 18 /min Va Perez Body Mass Index (Ratio) 28.92 kg/m2 Vin Perez weight E&M 193 [lb_av] Va Perez blood pressure, diastolic 78 mm[Hg] Me ayan Juarez blood pressure, systolic 122 mm[Hg] Tori Juarez respiratory rate E&M 16 /min Brianna Larry pulse rate 103 /min Brianna Larry oxygen saturation, oximetry 97 % Brianna Larry Body Mass Index (Ratio) 28.62 kg/m2 Mariola Juarez weight E&M 191 [lb_av] Brianna Larry respiratory rate E&M 20 /min Brianna Larry pulse rate 106 /min Brianna Larry oxygen saturation, oximetry 99 % Brianna Juarez blood pressure, diastolic 102 mm[Hg] Me gatessa Larry blood pressure, systolic 144 mm[Hg] Tori enriqueza Larry Body Mass Index (Ratio) 29.96 kg/m2 Mariola Juarez weight E&M 200 [lb_av] Brianna Larry blood pressure, diastolic 90 mm[Hg] Francisco Sanfordjohnny Lore blood pressure, systolic 120 mm[Hg] Olaf Torrez pulse rate 106 /min FranciscoSanfordjohnny Torrez oxygen saturation, oximetry 97 % Sg Torrez respiratory rate E&M 24 /min FranciscoSanfordjohnny Lore Body Mass Index (Ratio) 30.29 kg/m2 Elpidio Torrez weight E&M 202.2 [lb_av] FranciscoSanfordjohnny Lore Body Mass Index (Ratio) 29.51 kg/m2 Mariola jim Larry weight E&M 197 [lb_av] Brianna Juarez respiratory rate E&M 20 /min Brianna Juarez pulse rate 108 /min Brianna Juarez oxygen saturation, oximetry 98 % Brianna Juarez blood pressure, diastolic 79 mm[Hg] Me ayan Juarez blood pressure, systolic 122 mm[Hg] Tori Juarez Body Mass Index (Ratio) 30.26 kg/m2 Elpidio Torrez blood pressure, diastolic 90 mm[Hg] Francisco Torrez blood pressure, systolic 120 mm[Hg] Olaf Torrez pulse rate 104 /min Sg Torrez oxygen saturation, oximetry 98 % Sg Torrez respiratory rate E&M 22 /min Sg Torrez weight E&M 202 [lb_av] Sg Torrez Body Mass Index (Ratio) 29.51 kg/m2 [facility] sam Kate blood pressure, diastolic 84 mm[Hg] [facility] Lavinia blood pressure, systolic 120 mm[Hg] [facility] Lavinia pulse rate 95 /min Maryangel Kate oxygen saturation, oximetry 96 % Marysammi Kate respiratory rate E&M 18 /min Marysammi Kate weight E&M 197 [lb_av] Marysammi Kate Body Mass Index (Ratio) 28.12 kg/m2 Margarita Jarquin pulse rate 98 /min Farnaz Jarquin respiratory rate E&M 17 /min Farnaz Jarquin oxygen saturation, oximetry 98 % Farnaz Jarquin blood pressure, evans tolic, second observation 96 mm[Hg] Farnaz Jarquin blood pressure, syst olic, second observation 140 mm[Hg] Farnaz Jarquin blood pressure, diastolic 96 mm[Hg] Na noe Jarquin blood pressure, systolic 140 mm[Hg] Juani Jarquin weight E&M 187 [lb_av] Farnaz Jarquin blood pressure, diastolic 92 mm[Hg] Syed Westbrook blood pressure, systolic 136 mm[Hg] Ayaz Westbrook Body Mass Index (Ratio) 27.82 kg/m2 Deidra Westbrook pulse rate 95 /min Deneen Westbrook oxygen saturation, oximetry 98 % Deneen Westbrook respiratory rate E&M 17 /min Deneen Westbrook weight E&M 185 [lb_av] Deneen Westbrook blood pressure, diastolic 80 mm[Hg] Syed Westbrook blood pressure, systolic 100 mm[Hg] Ayaz Westbrook Body Mass Index (Ratio) 30.53 kg/m2 Deidra Westbrook pulse rate 99 /min Deneen Westbrook oxygen saturation, oximetry 99 % Deneen Westbrook respiratory rate E&M 17 /min Deneen Westbrook weight E&M 203 [lb_av] Deneen Westbrook blood pressure, diastolic 86 mm[Hg] Ch erese Saleh blood pressure, systolic 121 mm[Hg] Dolly rese Saleh pulse rate 86 /min Heidi Saleh oxygen saturation, oximetry 95 % Heidi Saleh respiratory rate E&M 16 /min Heidi Saleh weight E&M 202 [lb_av] Heidi Saleh height E&M 68.5 [in_i] Heidi Saleh blood pressure, diastolic 88 mm[Hg] Ch erese Saleh blood pressure, systolic 127 mm[Hg] Dolly rese Saleh pulse rate 85 /min Heidi Saleh oxygen saturation, oximetry 99 % Heidi Saleh respiratory rate E&M 18 /min Heidi Saleh weight E&M 199 [lb_av] Heidi Saleh blood pressure, diastolic 88 mm[Hg] Linda leal O'Aly blood pressure, systolic 110 mm[Hg] Gricelda Freedman'Aly pulse rate 92 /min Lara O'Aly oxygen saturation, oximetry 99 % Lara O'Aly respiratory rate E&M 18 /min Lara O'Aly weight E&M 198 [lb_av] Lara O'Aly oxygen saturation, oximetry 96 % Celinemame Álvarez MA blood pressure, diastolic 90 mm[Hg] Chanelle vilchis Henri JUAREZ blood pressure, systolic 145 mm[Hg] Chanellesammi royer Álvarez SD pulse rate 96 /min Celine Álvarez SD respiratory rate E&M 16 /min Celine Álvarez SD weight E&M 199 [lb_av] Celine Álvarez SD oxygen saturation, oximetry 97 % Celine Álvarez SD blood pressure, diastolic 80 mm[Hg] Chanelle vilchis Henri SD blood pressure, systolic 122 mm[Hg] Saqib linton Henri SD pulse rate 89 /min Celine Álvarez SD respiratory rate E&M 16 /min Celine Álvarez SD weight E&M 190 [lb_av] Celinemame Álvarez SD blood pressure, diastolic, right arm 72 m m[Hg] Cristiane Fort blood pressure, systolic, right arm 100 m m[Hg] Cristiane [place] blood pressure, diastolic 72 mm[Hg] mberly Fort blood pressure, systolic 100 mm[Hg] Gaviota berly Fort pulse rate 105 /min Cristiane Fort oxygen saturation, oximetry 93 % Cristiane Fort respiratory rate E&M 17 /min Kimberl y Fort weight E&M 185 [lb_av] Cristiane Fort blood pressure, diastolic 60 mm[Hg] Linda leal O'Aly blood pressure, systolic 86 mm[Hg] Gricelda Agrawal pulse rate 88 /min Lara Agrawal oxygen saturation, oximetry 93 % Larajulia Agrawal respiratory rate E&M 16 /min Larajulia Agrawal weight E&M 185 [lb_av] Larajulia Agrawal ALLERGIES Allergy Name Onset Date Reaction Criticality Status MECLIZINE High Criticality suspende d IMPRAMINE High Criticality suspende d TIZANIDINE High Criticality active CODEINE High Criticality active TEGRETOL Low Criticality active VICODIN Low Criticality active TYLENOL WITH CODEINE #3 Low Critical ity active INDERAL LA Low Criticality active COMPAZINE Low Criticality active DARVON Low Criticality active DARVOCET Low Criticality active PERCOCET Low Criticality active BIAXIN Low Criticality active CEFTIN Low Criticality active BENADRYL Low Criticality active PCN Low Criticality active RESULTS Date Observation Value Provider Reference Range Interpretation Location Estimated Glomerular Filtration Rate (calc) 90 mL/min/{1.7 3_m2} [facility] >=60 Normal C, [place] [address] aspartate aminotransferase (SGOT), serum 34 1/L [facility] 10-45 Normal C, [place] [address] alanine aminotransferase (SGPT), serum 35 1/L [facility] 7-45 Normal , [place] [address] Alkaline phosphatase 89 [facility] 40-130 Normal C, [place] [address] albumin, serum 4.3 g/dL [facility] 3.5-5.0 Normal , [place] [address] protein, total, serum 7.1 g/dL [facility] 6.5-8.5 Normal C, [place] [address] bilirubin, serum, total 0.7 mg/dL [facility] 0.1-1.2 Normal C, [place] [address] calcium, serum 9.2 mg/dL [facility] 8.5-10.3 Normal C, [place] [address] blood glucose, random 74 mg/dL [facility] 70-199 Normal C, [place] [address] creatine, serum 0.76 mg/dL [facility] 0.60-1.10 Normal C, [place] [address] urea nitrogen, blood 12 mg/dL [facility] 6-25 Normal C, [place] [address] anion gap, serum 9 mmol/L [facility] 2-15 Normal C, [place] [address] carbon dioxide, venous blood 28 mmol/L [facility] 22-32 Normal C, [place] [address] chloride, serum 96 mmol/L [facility] 97-110 Low C, [place] [address] potassium, serum 3.8 MMOL/L [facility] 3.3-4.9 Normal C, [place] [address] sodium, serum 133 mmol/L [facility] 135-145 Low C, [place] [address] activated partial thromboplastin time (aPTT) 50 s [facility] 28-38 High C, [place] [address] international normalized ratio (INR) 3.50 [facility] 0.90-1.20 High C, [place] [address] prothrombin time (patient) 39.9 s [facility] 10.3-13.7 High C, [place] [address] Absolute Basophils 0.0 K/CUMM [facility] 0.0-0.1 Normal C, [place] [address] Absolute Monocytes 0.6 K/CUMM [facility] 0.2-0.8 Normal C, [place] [address] Absolute Lymphocytes 1.4 K/CUMM [facility] 0.8-3.3 Normal C, [place] [address] Absolute Neutrophils 4.7 K/CUMM [facility] 1.5-6.5 Normal C, [place] [address] nucleated red blood cells as percent of blood leukocytes 0.00 K/CUMM [facility] 0.00-0.01 Normal red blood cell distribution width, size density 51.3 fL [facility] 35.7-48.1 High mean corpuscular hemoglobin concentration, RBC 34.5 G/DL [facility] 32.3-35.7 Normal mean corpuscular hemoglobin, RBC 35.6 pg [facility] 27.1-33.3 High mean corpuscular volume, RBC 103.0 fL [facility] 81.3-96.4 High erythrocyte count, whole blood 3.29 M/CUMM [facility] 3.90-5.20 Low mean platelet volume 9.3 fL [facility] 9.1-12.3 Normal platelet count 187 10*3/uL [facility] 150-400 Normal hematocrit, blood 33.9 % [facility] 35.6-45.5 Low hemoglobin, blood 11.7 g/dL [facility] 11.9-15.5 Low calcium, serum 9.6 mg/dL [facility] 8.7-10.2 carbon dioxide, venous blood 25 mmol/L [facility] 20-29 chloride, serum 105 mmol/L [facility] 96-106 potassium, serum 4.1 mmol/L [facility] 3.5-5.2 sodium, serum 142 mmol/L [facility] 499-170 5081/06 /14 urea nitrogen/creatinine ratio, serum 20 [facility] 9-23 creatinine, serum 0.76 mg/dL [facility] 0.57-1.00 urea nitrogen, blood 15 mg/dL [facility] 6-24 blood glucose, random 94 mg/dL [facility] 70-99 activated partial thromboplastin time (aPTT) 27 s [facility] 24-33 prothrombin time (patient) 10.1 s [facility] 9.1-12.0 international normalized ratio (INR) 0.9 [facility] 0.9-1.2 bacteria, urine microscopy Few [facility] None seen/Few hyaline casts, urine None seen [facility] None seen epithelial cells, urine 0-10 [facility] 0 - 10 RBC, Urine 0-2 /hpf [facility] 0 - 2 WBC urine on microscopy 0-5 /hpf [facility] 0 - 5 nitrate, urine Negative [facility] Negative urobilinogen, urine, semiquantitative (dipstick) 0.2 [facility] 0.2-1.0 bilirubin, urine Negative [facility] Negative hemoglobin, urine, by dipstick Negative [facility] Negative ketones, urine, by test strip Negative [facility] Negative glucose, urine Negative [facility] Negative protein, urine, semiquantitative (dipstick) Trace [facility] Negative/Tr allan leukocyte esterase, urine, by dipstick Negative [facility] Negative appearance, urine Clear [facility] Clear urine color Yellow [facility] Yellow pH, urine, semiquantitative 6.5 [facility] 5.0-7.5 specific gravity, body fluid 1.022 [facility] 1.005-1.030 basophil count, absolute 0.0 x10E3/uL [facility] 0.0-0.2 Eosinophil Absolute Count 0.1 X10E3/UL [facility] 0.0-0.4 monocyte count, blood, automated 0.3 X10E3/UL [facility] 0.1-0.9 lymphocyte count, blood, automated 1.5 X10E3/UL [facility] 0.7-3.1 Absolute Neutrophils 2.3 X10E3/UL [facility] 1.4-7.0 basophils as percent of blood leukocytes 1 % [facility] Not Estab. eosinophils as percent of blood leukocytes 2 % [facility] Not Estab. monocytes as percent of blood leukocytes 6 % [facility] Not Estab. lymphocytes as percent of blood leukocytes 35 % [facility] Not Estab. neutrophils as percent of blood leukocytes 56 % [facility] Not Estab. platelet count 233 X10E3/UL [facility] 013-676 2237/04 /22 red blood cell distribution width 13.1 % [facility] 11.7-15.4 mean corpuscular hemoglobin concentration, RBC 34.6 G/DL [facility] 31.5-35.7 mean corpuscular hemoglobin, RBC 35.3 pg [facility] 26.6-33.0 High mean corpuscular volume, RBC 102 fL [facility] 79-97 High hematocrit, blood 40.8 % [facility] 34.0-46.6 hemoglobin, blood 14.1 g/dL [facility] 11.1-15.9 erythrocyte (RBC) count 4.00 X10E6/UL [facility] 3.77-5.28 leukocyte count, blood 4.1 X10E3/UL [facility] 3.4-10.8 alanine aminotransferase (SGPT), serum 21 1/L [facility] 0-32 aspartate aminotransferase (SGOT), serum 23 1/L [facility] 0-40 alkaline phosphatase, serum 79 1/L [facility] 44-121 bilirubin, serum, total 0.4 mg/dL [facility] 0.0-1.2 albumin/globulin ratio, serum 1.7 [facility] 1.2-2.2 globulin, serum 2.8 [facility] 1.5-4.5 albumin, serum 4.7 g/dL [facility] 3.8-4.9 protein, total, serum 7.5 g/dL [facility] 6.0-8.5 calcium, serum 9.8 mg/dL [facility] 8.7-10.2 carbon dioxide, venous blood 25 mmol/L [facility] 20-29 chloride, serum 103 mmol/L [facility] 96-106 potassium, serum 4.1 mmol/L [facility] 3.5-5.2 sodium, serum 144 mmol/L [facility] 065-000 2633/04 /22 urea nitrogen/creatinine ratio, serum 17 [facility] 9-23 creatinine, serum 0.87 mg/dL [facility] 0.57-1.00 urea nitrogen, blood 15 mg/dL [facility] 6-24 blood glucose, random 87 mg/dL [facility] 65-99 bacteria, urine microscopy Few [facility] None seen/Few Crystal Type, Urine Calcium Oxalate [facility] N/A hyaline casts, urine None seen [facility] None seen epithelial cells, urine 0-10 [facility] 0 - 10 RBC, Urine 3-10 /hpf [facility] 0 - 2 Abnormal WBC urine on microscopy >30 /hpf [facility] 0 - 5 Abnormal urinalysis, microscopic examination See below: [facility] nitrate, urine Negative [facility] Negative urobilinogen, urine, semiquantitative (dipstick) 0.2 [facility] 0.2-1.0 bilirubin, urine Negative [facility] Negative hemoglobin, urine, by dipstick Trace [facility] Negative Abnormal ketones, urine, by test strip Trace [facility] Negative Abnormal glucose, urine Negative [facility] Negative protein, urine, semiquantitative (dipstick) 1+ [facility] Negative/Tr allan Abnormal leukocyte esterase, urine, by dipstick 2+ [facility] Negative Abnormal appearance, urine Cloudy [facility] Clear Abnormal urine color Yellow [facility] Yellow pH, urine, semiquantitative 5.0 [facility] 5.0-7.5 specific gravity, body fluid 1.025 [facility] 1.005-1.030 activated partial thromboplastin time (aPTT) 25 s [facility] 24-33 prothrombin time (patient) 9.8 s [facility] 9.1-12.0 international normalized ratio (INR) 0.9 [facility] 0.9-1.2 basophil count, absolute 0.0 x10E3/uL [facility] 0.0-0.2 Eosinophil Absolute Count 0.1 X10E3/UL [facility] 0.0-0.4 monocyte count, blood, automated 0.4 X10E3/UL [facility] 0.1-0.9 lymphocyte count, blood, automated 1.4 X10E3/UL [facility] 0.7-3.1 Absolute Neutrophils 4.3 X10E3/UL [facility] 1.4-7.0 basophils as percent of blood leukocytes 1 % [facility] Not Estab. eosinophils as percent of blood leukocytes 1 % [facility] Not Estab. monocytes as percent of blood leukocytes 6 % [facility] Not Estab. lymphocytes as percent of blood leukocytes 23 % [facility] Not Estab. neutrophils as percent of blood leukocytes 69 % [facility] Not Estab. platelet count 252 X10E3/UL [facility] 260-171 8045/10 /27 red blood cell distribution width 13.4 % [facility] 11.7-15.4 mean corpuscular hemoglobin concentration, RBC 34.6 G/DL [facility] 31.5-35.7 mean corpuscular hemoglobin, RBC 36.4 pg [facility] 26.6-33.0 High mean corpuscular volume, RBC 105 fL [facility] 79-97 High hematocrit, blood 41.0 % [facility] 34.0-46.6 hemoglobin, blood 14.2 g/dL [facility] 11.1-15.9 erythrocyte (RBC) count 3.90 X10E6/UL [facility] 3.77-5.28 leukocyte count, blood 6.2 X10E3/UL [facility] 3.4-10.8 alanine aminotransferase (SGPT), serum 14 1/L [facility] 0-32 aspartate aminotransferase (SGOT), serum 17 1/L [facility] 0-40 alkaline phosphatase, serum 76 1/L [facility] 44-121 bilirubin, serum, total 0.3 mg/dL [facility] 0.0-1.2 albumin/globulin ratio, serum 1.8 [facility] 1.2-2.2 globulin, serum 2.8 [facility] 1.5-4.5 albumin, serum 5.1 g/dL [facility] 3.8-4.9 High protein, total, serum 7.9 g/dL [facility] 6.0-8.5 calcium, serum 10.7 mg/dL [facility] 8.7-10.2 High carbon dioxide, venous blood 28 mmol/L [facility] 20-29 chloride, serum 105 mmol/L [facility] 96-106 potassium, serum 4.3 mmol/L [facility] 3.5-5.2 sodium, serum 145 mmol/L [facility] 134-144 High urea nitrogen/creatinine ratio, serum 17 [facility] 9-23 eGFR if 98 mL/min/{1.7 3_m2} [facility] >59 eGFR if not 85 mL/min/{1.7 3_m2} [facility] >59 creatinine, serum 0.78 mg/dL [facility] 0.57-1.00 urea nitrogen, blood 13 mg/dL [facility] 6-24 blood glucose, random 66 mg/dL [facility] 65-99 HDL cholesterol, serum 45 mg/dL [facility] >39 triglyceride, serum, random 237 mg/dL [facility] 0-149 High cholesterol, serum 201 mg/dL [facility] 100-199 High basophil count, absolute 0.0 x10E3/uL [facility] 0.0-0.2 Eosinophil Absolute Count 0.1 X10E3/UL [facility] 0.0-0.4 monocyte count, blood, automated 0.3 X10E3/UL [facility] 0.1-0.9 lymphocyte count, blood, automated 1.5 X10E3/UL [facility] 0.7-3.1 Absolute Neutrophils 2.5 X10E3/UL [facility] 1.4-7.0 basophils as percent of blood leukocytes 1 % [facility] Not Estab. eosinophils as percent of blood leukocytes 1 % [facility] Not Estab. monocytes as percent of blood leukocytes 6 % [facility] Not Estab. lymphocytes as percent of blood leukocytes 35 % [facility] Not Estab. neutrophils as percent of blood leukocytes 57 % [facility] Not Estab. platelet count 217 X10E3/UL [facility] 193-673 7612/09 /24 red blood cell distribution width 12.9 % [facility] 11.7-15.4 mean corpuscular hemoglobin concentration, RBC 33.7 G/DL [facility] 31.5-35.7 mean corpuscular hemoglobin, RBC 33.2 pg [facility] 26.6-33.0 High mean corpuscular volume, RBC 98 fL [facility] 79-97 High hematocrit, blood 41.5 % [facility] 34.0-46.6 hemoglobin, blood 14.0 g/dL [facility] 11.1-15.9 erythrocyte (RBC) count 4.22 X10E6/UL [facility] 3.77-5.28 leukocyte count, blood 4.4 X10E3/UL [facility] 3.4-10.8 prothrombin time (patient) 10.6 s [facility] 9.1-12.0 international normalized ratio (INR) 1.0 [facility] 0.8-1.2 calcium, serum 10.3 mg/dL [facility] 8.7-10.2 High carbon dioxide, venous blood 28 mmol/L [facility] 20-29 chloride, serum 100 mmol/L [facility] 96-106 potassium, serum 4.5 mmol/L [facility] 3.5-5.2 sodium, serum 145 mmol/L [facility] 134-144 High urea nitrogen/creatinine ratio, serum 22 [facility] 9-23 eGFR if 82 mL/min/{1.7 3_m2} [facility] >59 eGFR if not 71 mL/min/{1.7 3_m2} [facility] >59 creatinine, serum 0.91 mg/dL [facility] 0.57-1.00 urea nitrogen, blood 20 mg/dL [facility] 6-24 blood glucose, random 88 mg/dL [facility] 65-99 coagulation managed by Vonnie Booker RN international normalized ratio (INR) 2.2 [facility] Acord Normal prothrombin time (patient) 23.2 s Kendy Contreras activated partial thromboplastin time (aPTT) 30 s [facility] 24-33 prothrombin time (patient) 11.4 s [facility] 9.1-12.0 international normalized ratio (INR) 1.1 [facility] 0.8-1.2 calcium, serum 9.6 mg/dL [facility] 8.7-10.2 carbon dioxide, venous blood 26 mmol/L [facility] 20-29 chloride, serum 103 mmol/L [facility] 96-106 potassium, serum 4.2 mmol/L [facility] 3.5-5.2 sodium, serum 144 mmol/L [facility] [phone]/06 /11 urea nitrogen/creatinine ratio, serum 17 [facility] 9-23 eGFR if 77 mL/min/{1.7 3_m2} [facility] >59 eGFR if not 67 mL/min/{1.7 3_m2} [facility] >59 creatinine, serum 0.96 mg/dL [facility] 0.57-1.00 urea nitrogen, blood 16 mg/dL [facility] 6-24 blood glucose, random 81 mg/dL [facility] 65-99 basophil count, absolute 0.0 x10E3/uL [facility] 0.0-0.2 Eosinophil Absolute Count 0.1 X10E3/UL [facility] 0.0-0.4 monocyte count, blood, automated 0.3 X10E3/UL [facility] 0.1-0.9 lymphocyte count, blood, automated 1.6 X10E3/UL [facility] 0.7-3.1 Absolute Neutrophils 1.8 X10E3/UL [facility] 1.4-7.0 basophils as percent of blood leukocytes 1 % [facility] Not Estab. eosinophils as percent of blood leukocytes 3 % [facility] Not Estab. monocytes as percent of blood leukocytes 7 % [facility] Not Estab. lymphocytes as percent of blood leukocytes 41 % [facility] Not Estab. neutrophils as percent of blood leukocytes 48 % [facility] Not Estab. platelet count 224 X10E3/UL [facility] [phone]/06 /11 red blood cell distribution width 13.8 % [facility] 11.7-15.4 mean corpuscular hemoglobin concentration, RBC 32.5 G/DL [facility] 31.5-35.7 mean corpuscular hemoglobin, RBC 32.6 pg [facility] 26.6-33.0 mean corpuscular volume, RBC 100 fL [facility] 79-97 High hematocrit, blood 39.7 % [facility] 34.0-46.6 hemoglobin, blood 12.9 g/dL [facility] 11.1-15.9 erythrocyte (RBC) count 3.96 X10E6/UL [facility] 3.77-5.28 leukocyte count, blood 3.8 X10E3/UL [facility] 3.4-10.8 prothrombin time (patient) 10.4 s [facility] 9.1-12.0 international normalized ratio (INR) 1.0 [facility] 0.8-1.2 calcium, serum 9.8 mg/dL [facility] 8.7-10.2 carbon dioxide, venous blood 26 mmol/L [facility] 20-29 chloride, serum 102 mmol/L [facility] 96-106 potassium, serum 4.4 mmol/L [facility] 3.5-5.2 sodium, serum 142 mmol/L [facility] [phone]/05 /08 urea nitrogen/creatinine ratio, serum 22 [facility] 9-23 eGFR if 99 mL/min/{1.7 3_m2} [facility] >59 eGFR if not 86 mL/min/{1.7 3_m2} [facility] >59 creatinine, serum 0.78 mg/dL [facility] 0.57-1.00 urea nitrogen, blood 17 mg/dL [facility] 6-24 blood glucose, random 83 mg/dL [facility] 65-99 basophil count, absolute 0.0 x10E3/uL [facility] 0.0-0.2 Eosinophil Absolute Count 0.1 X10E3/UL [facility] 0.0-0.4 monocyte count, blood, automated 0.3 X10E3/UL [facility] 0.1-0.9 lymphocyte count, blood, automated 1.6 X10E3/UL [facility] 0.7-3.1 Absolute Neutrophils 2.3 X10E3/UL [facility] 1.4-7.0 basophils as percent of blood leukocytes 1 % [facility] Not Estab. eosinophils as percent of blood leukocytes 1 % [facility] Not Estab. monocytes as percent of blood leukocytes 7 % [facility] Not Estab. lymphocytes as percent of blood leukocytes 38 % [facility] Not Estab. neutrophils as percent of blood leukocytes 53 % [facility] Not Estab. platelet count 225 X10E3/UL [facility] [phone]/05 /08 red blood cell distribution width 13.7 % [facility] 11.7-15.4 mean corpuscular hemoglobin concentration, RBC 32.2 G/DL [facility] 31.5-35.7 mean corpuscular hemoglobin, RBC 31.6 pg [facility] 26.6-33.0 mean corpuscular volume, RBC 98 fL [facility] 79-97 High hematocrit, blood 39.4 % [facility] 34.0-46.6 hemoglobin, blood 12.7 g/dL [facility] 11.1-15.9 erythrocyte (RBC) count 4.02 X10E6/UL [facility] 3.77-5.28 leukocyte count, blood 4.3 X10E3/UL [facility] 3.4-10.8 activated partial thromboplastin time (aPTT) 30 s [facility] 24-33 prothrombin time (patient) 10.6 s [facility] 9.1-12.0 international normalized ratio (INR) 1.0 [facility] 0.8-1.2 calcium, serum 10.0 mg/dL [facility] 8.7-10.2 carbon dioxide, venous blood 26 mmol/L [facility] 20-29 chloride, serum 105 mmol/L [facility] 96-106 potassium, serum 4.5 mmol/L [facility] 3.5-5.2 sodium, serum 145 mmol/L [facility] 134-144 High urea nitrogen/creatinine ratio, serum 26 [facility] 9-23 High eGFR if 93 mL/min/{1.7 3_m2} [facility] >59 eGFR if not 81 mL/min/{1.7 3_m2} [facility] >59 creatinine, serum 0.82 mg/dL [facility] 0.57-1.00 urea nitrogen, blood 21 mg/dL [facility] 6-24 blood glucose, random 83 mg/dL [facility] 65-99 basophil count, absolute 0.0 x10E3/uL [facility] 0.0-0.2 Eosinophil Absolute Count 0.1 X10E3/UL [facility] 0.0-0.4 monocyte count, blood, automated 0.3 X10E3/UL [facility] 0.1-0.9 lymphocyte count, blood, automated 1.8 X10E3/UL [facility] 0.7-3.1 Absolute Neutrophils 2.6 X10E3/UL [facility] 1.4-7.0 basophils as percent of blood leukocytes 1 % [facility] Not Estab. eosinophils as percent of blood leukocytes 1 % [facility] Not Estab. monocytes as percent of blood leukocytes 7 % [facility] Not Estab. lymphocytes as percent of blood leukocytes 37 % [facility] Not Estab. neutrophils as percent of blood leukocytes 54 % [facility] Not Estab. platelet count 235 X10E3/UL [facility] 168-794 4840/04 /29 red blood cell distribution width 13.6 % [facility] 11.7-15.4 mean corpuscular hemoglobin concentration, RBC 33.2 G/DL [facility] 31.5-35.7 mean corpuscular hemoglobin, RBC 33.1 pg [facility] 26.6-33.0 High mean corpuscular volume, RBC 100 fL [facility] 79-97 High hematocrit, blood 41.0 % [facility] 34.0-46.6 hemoglobin, blood 13.6 g/dL [facility] 11.1-15.9 erythrocyte (RBC) count 4.11 X10E6/UL [facility] 3.77-5.28 leukocyte count, blood 4.8 X10E3/UL [facility] 3.4-10.8 prothrombin time (patient) 10.5 s [facility] 9.1-12.0 international normalized ratio (INR) 1.0 [facility] 0.8-1.2 calcium, serum 9.9 mg/dL [facility] 8.7-10.2 carbon dioxide, venous blood 26 mmol/L [facility] 20-29 chloride, serum 103 mmol/L [facility] 96-106 potassium, serum 4.6 mmol/L [facility] 3.5-5.2 sodium, serum 145 mmol/L [facility] 134-144 High urea nitrogen/creatinine ratio, serum 16 [facility] 9-23 eGFR if 86 mL/min/{1.7 3_m2} [facility] >59 eGFR if not 75 mL/min/{1.7 3_m2} [facility] >59 creatinine, serum 0.88 mg/dL [facility] 0.57-1.00 urea nitrogen, blood 14 mg/dL [facility] 6-24 blood glucose, random 93 mg/dL [facility] 65-99 basophil count, absolute 0.0 x10E3/uL [facility] 0.0-0.2 Eosinophil Absolute Count 0.1 X10E3/UL [facility] 0.0-0.4 monocyte count, blood, automated 0.3 X10E3/UL [facility] 0.1-0.9 lymphocyte count, blood, automated 1.8 X10E3/UL [facility] 0.7-3.1 Absolute Neutrophils 2.4 X10E3/UL [facility] 1.4-7.0 basophils as percent of blood leukocytes 0 % [facility] Not Estab. eosinophils as percent of blood leukocytes 2 % [facility] Not Estab. monocytes as percent of blood leukocytes 6 % [facility] Not Estab. lymphocytes as percent of blood leukocytes 39 % [facility] Not Estab. neutrophils as percent of blood leukocytes 53 % [facility] Not Estab. platelet count 235 X10E3/UL [facility] [phone]/12 /04 red blood cell distribution width 14.3 % [facility] 12.3-15.4 mean corpuscular hemoglobin concentration, RBC 34.2 G/DL [facility] 31.5-35.7 mean corpuscular hemoglobin, RBC 33.9 pg [facility] 26.6-33.0 High mean corpuscular volume, RBC 99 fL [facility] 79-97 High hematocrit, blood 40.9 % [facility] 34.0-46.6 hemoglobin, blood 14.0 g/dL [facility] 11.1-15.9 erythrocyte (RBC) count 4.13 X10E6/UL [facility] 3.77-5.28 leukocyte count, blood 4.5 X10E3/UL [facility] 3.4-10.8 bacteria, urine microscopy None seen [facility] None seen/Few Crystal Type, Urine Calcium Oxalate [facility] N/A epithelial cells, urine 0-10 [facility] 0 - 10 RBC, Urine 0-2 /hpf [facility] 0 - 2 WBC urine on microscopy 0-5 /hpf [facility] 0 - 5 urinalysis, microscopic examination See below: [facility] nitrate, urine Negative [facility] Negative urobilinogen, urine, semiquantitative (dipstick) 0.2 [facility] 0.2-1.0 bilirubin, urine Negative [facility] Negative hemoglobin, urine, by dipstick Trace [facility] Negative Abnormal ketones, urine, by test strip Negative [facility] Negative glucose, urine Negative [facility] Negative protein, urine, semiquantitative (dipstick) Trace [facility] Negative/Tr allan leukocyte esterase, urine, by dipstick 2+ [facility] Negative Abnormal appearance, urine Turbid [facility] Clear Abnormal urine color Yellow [facility] Yellow pH, urine, semiquantitative 5.0 [facility] 5.0-7.5 specific gravity, body fluid 1.026 [facility] 1.005-1.030 pro brain natriuretic peptide 48 pg/mL [facility] 0-249 D-dimer quantitative mcg/mL 0.59 MG/L FEU [facility] 0.00-0.49 High calcium, serum 10.0 mg/dL [facility] 8.7-10.2 carbon dioxide, venous blood 22 mmol/L [facility] - chloride, serum 105 mmol/L [facility] 96-106 potassium, serum 4.0 mmol/L [facility] 3.5-5.2 sodium, serum 144 mmol/L [facility] [phone]/05 /23 urea nitrogen/creatinine ratio, serum 20 [facility] 9-23 eGFR if 97 mL/min/{1.7 3_m2} [facility] >59 eGFR if not 84 mL/min/{1.7 3_m2} [facility] >59 creatinine, serum 0.80 mg/dL [facility] 0.57-1.00 urea nitrogen, blood 16 mg/dL [facility] 6-24 blood glucose, random 95 mg/dL [facility] 65-99 coagulation managed by Evelia Oseguera [employer]PECT[employer] Evelia Oseguera international normalized ratio (INR) 1.2 [facility] Normal activated partial thromboplastin time (aPTT) 30 s [facility] 24-33 prothrombin time (patient) 11.1 s [facility] 9.1-12.0 international normalized ratio (INR) 1.1 [facility] 0.8-1.2 calcium, serum 10.0 mg/dL [facility] 8.7-10.2 carbon dioxide, venous blood 26 mmol/L [facility] 20- chloride, serum 102 mmol/L [facility] 96-106 potassium, serum 4.1 mmol/L [facility] 3.5-5.2 sodium, serum 143 mmol/L [facility] 217-900 7211/02 /07 urea nitrogen/creatinine ratio, serum 18 [facility] 9-23 eGFR if 92 mL/min/{1.7 3_m2} [facility] >59 eGFR if not 80 mL/min/{1.7 3_m2} [facility] >59 creatinine, serum 0.84 mg/dL [facility] 0.57-1.00 urea nitrogen, blood 15 mg/dL [facility] 6-24 blood glucose, random 87 mg/dL [facility] 65-99 basophil count, absolute 0.0 x10E3/uL [facility] 0.0-0.2 Eosinophil Absolute Count 0.1 X10E3/UL [facility] 0.0-0.4 monocyte count, blood, automated 0.3 X10E3/UL [facility] 0.1-0.9 lymphocyte count, blood, automated 1.8 X10E3/UL [facility] 0.7-3.1 Absolute Neutrophils 2.4 X10E3/UL [facility] 1.4-7.0 basophils as percent of blood leukocytes 0 % [facility] Not Estab. eosinophils as percent of blood leukocytes 1 % [facility] Not Estab. monocytes as percent of blood leukocytes 8 % [facility] Not Estab. lymphocytes as percent of blood leukocytes 39 % [facility] Not Estab. neutrophils as percent of blood leukocytes 52 % [facility] Not Estab. platelet count 239 X10E3/UL [facility] [phone]/02 /07 red blood cell distribution width 13.9 % [facility] 12.3-15.4 mean corpuscular hemoglobin concentration, RBC 33.5 G/DL [facility] 31.5-35.7 mean corpuscular hemoglobin, RBC 33.3 pg [facility] 26.6-33.0 High [facility], [facility] hematocrit, blood 40.0 % [facility] 34[facility]46[facility]6 hemoglobin, blood 13.4 g/dL [facility] 11[facility]1-15.9 erythrocyte (RBC) count 4.02 X10E6/UL [facility] 3.77-5.28 leukocyte count, blood 4.6 X10E3/UL [facility] 3.4-10.8 platelet count 201 10*3/mm3 [facility] Douglas hematocrit, blood 34.0 % Grupo Douglas international normalized ratio (INR) 1.12 Gr[facility] Douglas creatinine, serum 0.69 mg/dL [facility] potassium, serum 3.6 mmol/L [facility] sodium, serum 143 mmol/L [facility] HISTORY OF MEDICATION USE Medication Status Instructions Dates Provider Indications Com ments celecoxib 200 mg capsule active SHILPI Rao DNP leflunomide 20 mg tablet active SHILPI Rao DNP Simponi 50 mg/0.5 mL pen injector active SHILPI Rao DNP pantoprazole 40 mg tablet,delayed release (DR/EC) active Padmaja Faulkner morphine 15 mg tablet completed take 1 pill twice a day - 07/26 SHILPI Rao DNP montelukast 10 mg tablet active take 1 pill a day Kendra Gordon albuterol sulfate 90 mcg/actuation HFA aerosol inhaler active as directed Kendra Gordon aspirin 81 mg tablet,delayed release (DR/EC) active Take 1 tablet by mouth once a day Kendra Gordon promethazine 25 mg suppository active as needed Kendra Gordon methylprednisolone 4 mg tablets,dose pack completed taper dose till gone - 11/08 Kendra Gordon methotrexate sodium 2.5 mg tablet completed 12.5 mg a week - 07/26 SHILPI Rao DNP hydroxyzine HCl 25 mg tablet active 1 pill every 8 hours as needed Kendra Gordon warfarin 5 mg tablet completed as directed - 07/26 SHILPI Rao DNP metoprolol succinate 50 mg tablet extended release 24 hr completed TAKE 1 TABLET BY MOUTH EVERY DAY - 08/04 Kendra Gordon nitroglycerin 0.4 mg tablet, sublingual active PLACE 1 TABLET UNDER TONGUE NEEDED FOR RELIEVE OF CHEST PAIN, TAKE 1 TABLET 5 MINUTES APART, IF NO RELIEF AFTER 3 TABS SEEK MEDICAL ATTENTION 09/16 Sophia Cain metoprolol succinate 50 mg tablet extended release 24 hr completed Take 1 tablet by mouth once a day TAKE 1 TABLET BY MOUTH EVERY DAY 07/28 - Garry Marcelo metoprolol succinate 25 mg tablet extended release 24 hr completed 1 tablet by mouth once a day 04/16 - 07/28 Hugo Ordoñez MD ciprofloxacin HCl 500 mg tablet completed Take 1 tablet by mouth twice a day for 5 Days 11/18 - 04/16 Kendra Gordon buprenorphine unspecified unspecified completed Apply 1 patch to skin once a week - 07/26 SHILPI Rao DNP Medrol (Ranulfo) 4 mg tablets,dose pack completed 1 tablet once a day Take per package instructions 07/29 - 11/18 Leonie Hodges RN completed duloxetine 60 mg capsule,delayed release(DR/EC) active TAKE 1 CAPSULE (60 MG TOTAL) BY MOUTH NIGHTLY 08/07 Arlene Reyna MD metoprolol tartrate 50 mg tablet active TAKE 1 TABLET BY MOUTH TWICE A DAY 08/07 Hernan Alberto Dilaudid 2 mg tablet completed 1 tablet every six hours as needed for pain 07/23 - 11/18 Hugo Ordoñez MD Bactcelestina DS 800-160 mg tablet completed Take 1 tablet by mouth twice a day 07/21 - 07/28 Hugo Ordoñez MD metoprolol tartrate 100 mg tablet completed 1 tablet twice a day - 08/07 Hugo Ordoñez MD nitroglycerin 0.4 mg tablet, sublingual completed PLACE 1 TABLET UNDER TONGUE NEEDED FOR RELIEVE OF CHEST PAIN- TAKE 1 TAB 5 MIN APART - IF NO RELIEF AFTER 3 TABS SEEK MEDICAL ATTENTION 04/05 - 09/16 Sophia Cain nitroglycerin 0.4 mg tablet, sublingual completed Place 1 tablet under tongue as needed for relieve of chest pain- take 1 tab 5 min apart - if no relief after 3 tabs seek medical attention 03/18 - 04/05 Henry Guevara RN #25, 5 days supply, Prescribed by JAZMYN, NOT PROVIDED, Filled 04/03/2020 diclofenac sodium 1% gel active 4 times a day as needed Kendra Gordon prednisone 5 mg tablet completed - 04/10 [facility] carbamazepine 100 mg tablet extended release 12 hr completed - 08/04 Kendra Gordon ondansetron 4 mg tablet,disintegrati ng completed - 08/04 Kendra Gordon folic acid 1 mg tablet completed take 2 pills in the am - 07/26 Oh Celestin DNP,[employer] REPRESENTATIVE metoprolol tartrate 25 mg tablet completed Take 0.5 tablet by mouth twice a day 10/02 - 03/13 Tia Hernán Nucynta ER 50 mg tablet extended release 12 hr completed Take 1 twice a day 12/20 - 11/18 Kendra Gordon hydroxychloroquine 200 mg tablet completed Take 1 tablet by mouth once a day 07/24 - 04/10 Denise French #30, 30 days supply, Prescribed by LIT PIKE, Filled 07/24/2020 ATARAX 25 MG TAB completed one tab three times daily 07/31 - 08/02 Denise French biotin 10 mg tablet completed 1 tablet onc e a day 07/31 - 04/10 Lara O'Aly Lasix 20 mg tablet completed Take 1 tablet once a day 07/29 - 08/04 Kendra Gordon metoprolol tartrate 50 mg tablet completed 1 by mouth twice a day - Hugo Ordoñez MD MORPHINE SULFATE ER 15 MG ORAL TABLET EXTENDED RELEASE completed one tablet twice a day as needed for pain - 07/29 Hugo Ordoñez MD MORPHINE SULFATE ER 10 MG ORAL CAPSULE EXTENDED RELEASE 24 HOUR completed one tablet twice a day - 07/29 Hugo Ordoñez MD DIGOXIN 125 MCG ORAL TABLET completed ONE TAB DAILY. UNLIKELY PATIENT WOULD HAVE TOXICITY DUE TO LOW DOSE. 04/04 - 04/11 Hugo Ordoñez MD ropinirole 1 mg tablet active Take 1 tablet by mouth four times a day 04/04 Kendra Gordon Phenergan 25 mg/mL solution completed 04/04 - 11/18 [facility] Perez rosuvastatin 40 mg tablet active Take 1 tablet by mouth once a day 04/04 Brenda Collins nitroglycerin 0.4 mg tablet, sublingual completed as needed 04/03 - 03/18 [facility] #25, 5 days supply, Prescribed by JAZMYN, NOT PROVIDED, Filled 04/03/2020 azelastine 205.5 mcg (0.15 %) spray,non-aerosol completed 12/28 - 04/07 Kendra Gordon #30, 50 days supply, Prescribed by CHANTALE, NOT PROVIDED, Filled 04/03/2020 duloxetine 60 mg capsule,delayed release(/EC) completed Take 1 tablet by mouth once a day 04/03 - 08/07 [facility] #90, 90 days supply, Prescribed by MIRELA, NOT PROVIDED, Filled 04/03/2020 WARFARIN SODIUM 5 MG TABLET completed TAKE 1 TABLET BY MOUTH STARTING 7 DAYS PRIOR TO PROCEDURE 11/21 - 01/10 Celestine Levy TRAMADOL HCL 50 MG ORAL TABLET completed 1 po q 6 hours prn pain 09/04 - 04/11 Hugo Ordoñez MD CIPROFLOXACIN HCL 500 MG ORAL TABLET completed 1 po bid x 5 days 09/04 - 04/11 Hugo Ordoñez MD HM MAGNESIUM 400 MG ORAL TABLET completed 1 tab BiD - 07/29 Hugo Ordoñez MD ULTRAM 50 MG ORAL TABLET completed Take one capsule every 4 hours as needed - 07/24 Joslyn Franco CLINDAMYCIN HCL 150 MG ORAL CAPSULE completed Take one capsule 3 times daily for 10 days - 07/24 Joslyn Franco cyclobenzaprine 10 mg tablet completed 1 tablet twice a day 04/13 - 03/13 [facility] CYMBALTA 60 MG ORAL CAPSULE DELAYED RELEASE PARTICLES completed one cap daily 04/13 - 07/29 Hugo Ordoñez MD MELOXICAM 7.5 MG ORAL TABLET completed one tab daily 04/13 - 07/29 Hugo Ordoñez MD VITAMIN D CAPSULE completed one cap weekly 04/13 - 07/24 Joslyn Franco ROSUVASTATIN CALCIUM 10 MG TAB completed TAKE 1 TABLET BY MOUTH EVERY DAY 12/22 - 04/04 [facility] CORLANOR 5 MG ORAL TABLET completed take 5mg in the am and 5mg in pm 04/05 - 04/04 [facility] METOPROLOL TARTRATE 25 MG ORAL TABLET completed one tab daily 03/28 - 08/15 Velma Rodriguez Zyrtec 10 mg capsule completed 1 tablet twice a day 12/29 - 08/04 Kendra Gordon aspirin 81 mg tablet,delayed release (DR/EC) completed 1 tablet by mouth once a day 12/29 - 08/04 Kendra Gordon NUCYNTA 100 MG ORAL TABLET completed one tab twice daily 12/29 - 04/11 Hugo Ordoñez MD WARFARIN SODIUM 5 MG ORAL TABLET completed one tablet daily start 1 week before the procedure 09/14 - 02/08 Ghazala Collins CALCIUM + D3 TABLET completed take 5,000 m g tablet by mouth once daily 01/25 - 02/08 Ghazala Collins B COMPLEX TABELT completed take one tablet by mouth once daily 01/25 - 02/08 Ghazala Collins BIOTIN 3000 MCG ORAL TABLET (BIOTIN) completed take one tablet by mouth once daily 01/25 - 02/08 Ghazala Collins CYCLOBENZAPRINE HCL 10 MG ORAL TABLET completed take one tablet by mouth twice daily as needed for spasm 01/25 - 02/08 Ghazala Collins HYDROXYZINE HCL 25 MG ORAL TABLET completed TAKE 1 TABLET BY ORAL ROUTE 3 TIMES EVERY DAY 12/30 - 12/08 Ghazala Collins #90, 30 days supply, Prescribed by ANGEL DIETZ, Filled 01/01/2018 CELECOXIB 200 MG ORAL CAPSULE completed take one tablet by mouth twice daily 01/07 - 02/08 Ghazala Collins #30, 30 days supply, Prescribed by MIRELA, Filled 01/08/2018 CYMBALTA 30 MG ORAL CAPSULE DELAYED RELEASE PARTICLES completed take one cap po once daily - 02/08 Ghazala Collins ADULT ASPIRIN EC LOW STRENGTH 81 MG ORAL TABLET DELAYED RELEASE completed take one tab po once daily - 02/08 Ghazala Collins METOPROLOL TARTRATE 25 MG ORAL TABLET completed One half tablet twice a day. 08/04 - 02/08 Ghazala Collins NEURONTIN 300 MG ORAL CAPSULE completed 900 mg in the morning and 900 mg in the evening 08/04 - 02/08 Deneen Westbrook NUCYNTA ER 50 MG ORAL TABLET EXTENDED RELEASE 12 HOUR completed as needed - 02/08 Ghazala Collins CORLANOR 5 MG ORAL TABLET completed Please take 5 mg bid 02/24 - 12/29 Hugo Ordoñez MD VITAMIN D3 5000 UNIT ORAL CAPSULE completed once daily - 02/08 Deneen Westbrook CRESTOR 20 MG ORAL TABLET completed one tablet by mouth once daily - 02/08 Ghazala Collins PHENERGAN 25 MG RECTAL SUPPOSITORY completed prn - 02/08 Deneen Westbrook LIDODERM 5 % EXTERNAL PATCH completed ud - 02/08 Deneen Westbrook CELEBREX 200 MG ORAL CAPSULE completed once daily - 01/07 Elana Everett LIPITOR 20 MG ORAL TABLET completed once daily - 02/08 [facility] GABAPENTIN 300 MG ORAL CAPSULE completed take 4 tablets by mouth three times daily 01/25 - 02/08 Ghazala Collins ERYTHROMYCIN POWDER completed TAKE DIRECTED - 02/08 Brianna Juarez CYMBALTA 60 MG ORAL CAPSULE DELAYED RELEASE PARTICLES completed once daily - 02/08 Ghazala Collins NUCYNTA ER 150 MG ORAL TABLET EXTENDED RELEASE 12 HOUR completed one tablet twice daily - 01/25 [facility] CYCLOBENZAPRINE HCL 10 MG ORAL TABLET completed one tablet twice daily - 01/07 Elana Everett COUMADIN 5 MG ORAL TABLET completed - 02/08 Nataly Carter AZELASTINE HCL 0.1 % NASAL SOLUTION completed TAKE DIRECTED - 04/11 Hugo Ordoñez MD LASIX 20 MG ORAL TABLET completed ONCE DAILY - 02/08 Brianna Juarez HYDROXYZINE HCL 25 MG ORAL TABLET completed 3 times daily - 01/07 Elana Everett NUCYNTA ER 150 MG ORAL TABLET EXTENDED RELEASE 12 HOUR completed 09/05 - 02/08 Mary Kate NUCYNTA 75 MG ORAL TABLET completed 1 tab every 8 hours prn 09/05 - 02/08 Brianna Juarez REQUIP 0.5 MG ORAL TABLET completed 1-2 daily 01/25 - 04/11 Hugo Ordoñez MD LIDODERM 5 % EXTERNAL PATCH completed 3 day - 02/08 Ghazala Collins POTASSIMIN TABLET completed 10mg 2 tabs daily - 02/08 Ghazala Collins CYMBALTA 30 MG ORAL CAPSULE DELAYED RELEASE PARTICLES completed 60 mg once daily - 02/08 Brianna Juarez PROPRANOLOL HCL 20 MG ORAL TABLET completed three times daily 10/19 - 02/08 Deneen Westbrook AMITIZA 8 MCG ORAL CAPSULE completed as needed 10/19 - 02/08 Deneen Westbrook FUROSEMIDE 20 MG ORAL TABLET completed once daily 10/19 - Hugo Ordoñez MD MORGAN ALLERGY 180 MG ORAL TABLET completed once daily 10/19 - 02/08 Sg Hernandezdney FLEXERIL 10 MG TABS completed twice daily 10/19 - 02/08 Farnaz Britton NEURONTIN 300 MG ORAL CAPSULE completed two tabs three time daily 10/19 - 02/08 Sg Torrez TRETINOIN CREAM completed once daily as needed - 02/08 Deneen Westbrook PHENADOZ 25 MG RECTAL SUPPOSITORY completed as needed 10/19 - 02/08 Brianna Juarez DOXYCYCLINE HYCLATE CPEP completed two times daily 10/19 - 02/08 Deneen Westbrook ATIVAN 0.5 MG ORAL TABLET completed as needed 10/19 - 02/08 Deneen Westbrook CLEOCIN 300 MG ORAL CAPSULE completed three time daily 10/19 - 02/08 Deneen Westbrook RELISTOR 12 MG/0.6ML SUBCUTANEOUS KIT completed use every two days 10/19 - 02/08 Deneen Westbrook AKNE-MYCIN 2 % EXTERNAL OINTMENT completed twice daily as needed - 02/08 Deneen Westbrook ECONAZOLE NITRATE 1 % EXTERNAL CREAM completed twice daily as needed - 02/08 Deneen Westbrook ELOCON 0.1 % EXTERNAL CREAM completed once daily as needed - 02/08 Deneen Westbrook CARVEDILOL 3.125 MG ORAL TABLET completed 1 tab twice daily 09/11 - 02/08 Deneen Westbrook FEXOFENADINE HCL 180 MG ORAL TABLET completed once daily - 02/08 Deneen Westbrook NABUMETONE 750 MG ORAL TABLET completed twice daily - 02/08 Brianna Juarez FLUDROCORTISONE ACETATE 0.1 MG ORAL TABLET completed 1 tablet twice daily 04/09 - 02/08 Deneen Westbrook PHENERGAN SOLUTION completed as directed - 02/08 Heidi Saleh NUVIGIL TABLET completed 1 tab daily - 02/08 Celine Álvarez MA SEROQUEL TABLET completed 1 tab daily - 02/08 Deneen Westbrook NEURONTIN 300 MG ORAL CAPSULE completed 2 aps three times daily - 10/19 Heidi Saleh MORPHINE SULFATE 15 MG ORAL TABLET completed as directed - 02/08 Deneen Dariana TAPAN 60 MG ORAL CAPSULE EXTENDED RELEASE 24 HOUR completed 2 tabs twice daily - 02/08 Farnaz Jarquin VOLTAREN GEL completed as directed - 08/04 Kendra Gordon SOCIAL HISTORY Date Observation Value Provider personal history of marijuana use no Hugo Ordoñez MD drug use no Hugo Lilly alcohol use no Hugo Lilly passive cigarette sm kelvin exposure no Hugo Ordoñez MD smoking status Never smoker Hugo Ordoñez MD personal history of marijuana use no Mario Monroy drug use no Mario Souzaty alcohol use no Mario Souzaty passive cigarette sm kelvin exposure no Mario Souzaty smoking status Never smoker Mario Souzaty personal history of marijuana use no Oh Celestin DNP,ARTISTS' BOOKING REPRESENTATIVE drug use no Oh STRONG P,ARTISTS' BOOKING REPRESENTATIVE alcohol use no Oh STRONG P,ARTISTS' BOOKING REPRESENTATIVE passive cigarette sm kelvin exposure no Oh Celestin DNP,ARTISTS' BOOKING REPRESENTATIVE smoking status Never smoker Oh Celestin DNP,ARTISTS' BOOKING REPRESENTATIVE drug use none Hugo Lilly alcohol use no Hugo Lilly passive cigarette sm kelvin exposure no Hugo Ordoñez MD smoking status Never smoker Hugo Ordoñez MD drug use none Hugo Lilly alcohol use no Hugo Lilly passive cigarette sm kelvin exposure no Hugo Ordoñez MD smoking status Never smoker Hugo Ordoñez MD drug use none Hugo Lilly alcohol use no Hugo Lilly passive cigarette sm kelvin exposure no Hugo Ordoñez MD smoking status Never smoker Hugo Ordoñez MD drug use none Hugo Lilly alcohol use no Hugo Lilly passive cigarette sm kelvin exposure no Hugo Ordoñez MD smoking status Never smoker Hugo Ordoñez MD drug use none Hugo Lilly alcohol use no Hugo Lilly passive cigarette sm kelvin exposure no Hugo Ordoñez MD smoking status Never smoker Hugo Ordoñez MD number of grandchildren Hugo Ordoñez MD Eliana Nalluri PRIVATE CLIENT ADVISOR drug use none Eliana Nalluri PRIVATE CLIENT ADVISOR alcohol use no Eliana Nalluri PRIVATE CLIENT ADVISOR passive cigarette sm kelvin exposure no Eliana Nalluri PRIVATE CLIENT ADVISOR smoking status Never smoker Eliana Nallu ri PRIVATE CLIENT ADVISOR drug use none Brendajulia Collins alcohol use no Brendajulia Collins passive cigarette sm kelvin exposure no Brendajulia Collins smoking status Never smoker Brendajulia Collins drug use none Hugo Lilly alcohol use no Hugo Lilly passive cigarette sm kelvin exposure no Hugo Ordoñez MD smoking status Never smoker Hugo Ordoñez MD drug use none Brendajulia Collins alcohol use no Brendajulia Collins passive cigarette sm kelvin exposure no Brendajulia Collins smoking status Never smoker Brendajulia Collins drug use none Brendajulia Collins alcohol use no Brendajulia Collins passive cigarette sm kelvin exposure no Brendajulia Collins smoking status Never smoker Brendajulia Collins social history reviewed E&M revi ewed - no changes required Hugo Ordoñez MD social history E&M Marital Statu s: / L sharita alone E thnicity: Smoking History: P shahab has never smoked. Hugo Ordoñez MD social history reviewed E&M revi ewed - no changes required Hugo Ordoñez MD seatbelt usage 100 % Brenda Collins physical exercise, frequency, days per week yes Brenda Collins caffeine use, averag e drinks per day no Brenda Collins passive cigarette sm kelvin exposure no Brenda Collins smoking status Never smoker Brenda Collins social history reviewed E&M revi ewed - no changes required Hugo Ordoñez MD social history E&M Marital Statu s: / L sharita alone E thnicity: Smoking History: P shahab has never smoked. Hugo Ordoñez MD social history reviewed E&M revi ewed - no changes required Hugo Ordoñez MD seatbelt usage 100 % Kendra torres physical exercise, frequency, days per week yes Kendra Gordon caffeine use, averag e drinks per day no Kendra Gordon passive cigarette sm kelvin exposure no Kendra Gordon smoking status Never smoker Kendra torres social history reviewed E&M revi ewed - no changes required Hugo Ordoñez MD social history reviewed E&M revi ewed - no changes required Hugo Ordoñez MD social history E&M Marital Statu s: / L sharita alone E thnicity: Smoking History: P shahab has never smoked. Hugo Ordoñez MD social history reviewed E&M revi ewed - no changes required Hugo Ordoñez MD seatbelt usage 100 % Corinne Ana s physical exercise, frequency, days per week yes Corinne Travis caffeine use, averag e drinks per day no Corinne [place] passive cigarette sm kelvin exposure no Corinne Travis smoking status Never smoker Corinne Ana s social history E&M Marital Statu s: / L sharita alone E thnicity: Smoking History: P atient has never smoked. Hugo Ordoñez MD social history reviewed E&M revi ewed - no changes required Hugo Ordoñez MD seatbelt usage 100 % Corinne Ana s physical exercise, frequency, days per week yes Corinne Travis caffeine use, averag e drinks per day no Corinne [place] passive cigarette sm kelvin exposure no Corinne Travis smoking status Never smoker Corinne Ana s social history reviewed E&M revi ewed - no changes required Hugo Ordoñez MD social history E&M Marital Statu s: / L sharita alone E thnicity: Smoking History: P atient has never smoked. Hugo Ordoñez MD social history reviewed E&M revi ewed - no changes required Hugo Ordoñez MD seatbelt usage 100 % Sophia Ford physical exercise, frequency, days per week yes Sophia Ridge caffeine use, averag e drinks per day no [place]ia [place] passive cigarette sm kelvin exposure no Sophia Ford smoking status [facility] Mar[facility] Statu s: / L sharita alone E thnicity: Smoking History: P atient has never smoked. Hugo Ordoñez MD social history reviewed E&M revi ewed - no changes required Hugo Ordoñez MD seatbelt usage 100 % Corinne Ana s physical exercise, frequency, days per week yes Corinne [place] caffeine use, averag e drinks per day no Corinne [place] passive cigarette sm kelvin exposure no Corinne Travis smoking status Never smoker Corinne Ana s social history E&M Marital Statu s: / L sharita alone E thnicity: Smoking History: P shahab has never smoked. Hugo Ordoñez MD social history reviewed E&M revi ewed - no changes required Hugo Ordoñez MD seatbelt usage 100 % Denise Da Silva ey physical exercise, frequency, days per week yes Denise French caffeine use, averag e drinks per day no Denise French passive cigarette sm kelvin exposure no Denise Manolo smoking status Never smoker Denise Da Silva ey seatbelt usage 100 % Va Perez physical exercise, frequency, days per week yes Va Perez caffeine use, averag e drinks per day no Va Chris passive cigarette sm kelvin exposure no [facility] [place] smoking status Never smoker Va Perez social history reviewed E&M revi ewed - no changes required Linda Scott NP seatbelt usage 100 % Kendra torres physical exercise, frequency, days per week yes Kendra oGrdon caffeine use, averag e drinks per day no Kendra Gordon passive cigarette sm kelvin exposure no Kendra Gordon smoking status Never smoker Kendra torres social history E&M Marital Statu s: / L sharita alone E thnicity: Smoking History: P atlong has never smoked. Hugo Ordoñez MD social history reviewed E&M revi ewed - no changes required Hugo Ordoñez MD seatbelt usage 100 % Mary Nelson physical exercise, frequency, days per week yes Mary Nelson caffeine use, averag e drinks per day no Mary Nelson passive cigarette sm kelvin exposure no Mary Nelson smoking status Never smoker Mary Nelson social history reviewed E&M jose ewed - no changes required Lori Cummings NP seatbelt usage 100 % Denise bond physical exercise, frequency, days per week yes Denise [place] caffeine use, averag e drinks per day no Denise Manolo passive cigarette sm kelvin exposure no Denise French smoking status Never smoker Denise Rekha bond number of grandchildren Jean Claude Yang social history E&M Marital Statu s: / L sharita alone E thnicity: Smoking History: P shahab has never smoked. Jean Claude Calixto DO social history reviewed E&M i ewed - no changes required Jean Claude Calixto DO seatbelt usage 100 % Lara O'Aly physical exercise, frequency, days per week yes Lara O'Aly caffeine use, averag e drinks per day no Lara O'Aly passive cigarette sm kelvin exposure no Lara O'Aly smoking status Never smoker Lara O'Ayl social history E&M Marital Statu s: / L sharita alone E thnicity: Smoking History: P atlong has never smoked. Hugo Ordoñez MD social history reviewed E&M revi ewed - no changes required Hugo Ordoñez MD seatbelt usage 100 % Joslyn juan physical exercise, frequency, days per week yes Joslyn Salvador caffeine use, averag e drinks per day no Joslyn Salvador passive cigarette sm kelvin exposure no Joslyn Salvador smoking status Never smoker Joslyn juan smoking status Never smoker Yo griffith social history E&M Marital Statu s: / L shairta alone E thnicity: Smoking History: P atient has never smoked. Yo Heller social history reviewed E&M revi ewed - no changes required Yo Heller seatbelt usage 100 % Mary Omar physical exercise, frequency, days per week yes Mary Omar caffeine use, averag e drinks per day no Mary Nelson passive cigarette sm kelvin exposure no Mary Nelson social history E&M Marital Statu s: / L sharita alone E thnicity: Smoking History: P atient has never smoked. Hugo Ordoñez MD social history reviewed E&M revi ewed - no changes required Hugo Ordoñez MD seatbelt usage 100 % Sania borden physical exercise, frequency, days per week yes Sania Warren caffeine use, averag e drinks per day no Sania Warren passive cigarette sm kelvin exposure no Sania Warren smoking status Never smoker Sania borden social history E&M Marital Statu s: / L sharita alone E thnicity: Smoking History: P atient has never smoked. Hugo Ordoñez MD social history reviewed E&M revi ewed - no changes required Hugo Ordoñez MD seatbelt usage 100 % Sania borden physical exercise, frequency, days per week yes Sania Block caffeine use, averag e drinks per day no Sania Block passive cigarette sm kelvin exposure no Sania Block smoking status Never smoker Sania West k smoking status Never smoker Yo griffith social history E&M Marital Statu s: / L sharita alone E thnicity: Smoking History: P atlong has never smoked. Yo Heller social history reviewed E&M revi ewed - no changes required Yo Mayberryros seatbelt usage 100 % Va Chris physical exercise, frequency, days per week yes Va Chris caffeine use, averag e drinks per day no Va [place] passive cigarette sm kelvin exposure no Va Chris social history reviewed E&M revi ewed - no changes required Celestine Cam seatbelt usage 100 % Tonsha Hensley physical exercise, frequency, days per week yes Tonsha Hensley caffeine use, averag e drinks per day no Tonsha Hensley passive cigarette sm kelvin exposure no Tonsha Hensley smoking status Never smoker Tonsha Hensley social history reviewed E&M revi ewed - no changes required Celestine Cam social history reviewed E&M revi ewed - no changes required Celestine Cam social history E&M Marital Statu s: / L sharita alone E thnicity: Smoking History: P shahab has never smoked. Hugo Ordoñez MD social history reviewed E&M revi ewed - no changes required Hugo Ordoñez MD seatbelt usage 100 % Tonsha Hensley physical exercise, frequency, days per week yes Tonsha Hensley caffeine use, averag e drinks per day no Tonsha Hensley passive cigarette sm kelvin exposure no Tonsha Hensley smoking status Never smoker Tonsha Hensley social history reviewed E&M revi ewed - no changes required Tab Taylor MD seatbelt usage 100 % [facility], frequency, days per week yes Yenifer Aj caffeine use, averag e drinks per day no Yenifer Aj passive cigarette sm kelvin exposure no Yenifer Aj smoking status Never [facility] E&M Marital Statu s: / L sharita alone E thnicity: Smoking History: P atient has never smoked. Hugo Ordoñez MD social history reviewed E&M revi ewed - no changes required Hugo Ordoñez MD seatbelt usage 100 % [employer] [facility] physical exercise, frequency, days per week yes [facility] caffeine use, averag e drinks per day no [facility] passive cigarette sm kelvin exposure no [facility] smoking status Never smoker [facility] social history E&M Marital Statu s: / L sharita alone E thnicity: Smoking History: P atient has never smoked. Tab Taylor MD smoking status Never smoker Tab wilcox MD seatbelt usage 100 % Velma Guzman physical exercise, frequency, days per week yes Velma Rodriguez caffeine use, averag e drinks per day no Velma Rodriguez passive cigarette sm kelvin exposure no Velma Rodriguez social history reviewed E&M revi ewed - no changes required Velma Rodriguez social history E&M Marital Statu s: / L sharita alone E thnicity: Smoking History: P atient has never smoked. Hugo Ordoñez MD social history reviewed E&M revi ewed - no changes required Hugo Ordoñez MD seatbelt usage 100 % Giselestity Hogu e physical exercise, frequency, days per week yes Giselestity Jaime caffeine use, averag e drinks per day no Giselestity Jaime passive cigarette sm kelvin exposure no Chastity Jaime smoking status Never smoker Ana Jacintou e seatbelt usage 100 % Velma Guzman physical exercise, frequency, days per week yes Velma Rodriguez caffeine use, averag e drinks per day no Velma Michael passive cigarette sm kelvin exposure no Velma Michael smoking status Never smoker Velma Stefani Guzman social history reviewed E&M revi ewed - no changes required Velma Rodriguez social history E&M Marital Statu s: / L sharita alone E thnicity: Smoking History: P shahab has never smoked. Hugo Ordoñez MD social history reviewed E&M revi ewed - no changes required Hugo Ordoñez MD seatbelt usage 100 % Joslyn juan physical exercise, frequency, days per week yes Joslyn Franco caffeine use, averag e drinks per day no Joslyn Franco passive cigarette sm kelvin exposure no Joslyn Franco smoking status Never smoker Joslyn juan social history reviewed E&M revi ewed - no changes required Celestine Levy seatbelt usage 100 % Sania borden physical exercise, frequency, days per week yes Sania Warren caffeine use, averag e drinks per day no Sania Warren passive cigarette sm kelvin exposure no Sania Warren smoking status Never smoker Sania borden social history reviewed E&M revi ewed - no changes required Tab Taylor MD seatbelt usage 100 % Sania borden physical exercise, frequency, days per week yes Sania Warren caffeine use, averag e drinks per day no Sania Block passive cigarette sm kelvin exposure no Sania Block smoking status Never smoker Sania Bloc k seatbelt usage 100 % Velma uriarte-Kashif physical exercise, frequency, days per week yes Velmatony Rodriguez caffeine use, averag e drinks per day no Velma Pruitt-Kashif passive cigarette sm kelvin exposure no Velma Pruitt-Kashif smoking status Never smoker Velma Conwaykaylie uriarte-Kashif social history reviewed E&M revi ewed - no changes required Velma Rodriguez social history reviewed E&M revi ewed - no changes required Hugo Ordoñez MD social history E&M Marital Statu s: / L sharita alone E thnicity: Smoking History: P atlong has never smoked. Hugo Ordoñez MD social history reviewed E&M revi ewed - no changes required Hugo Ordoñez MD seatbelt usage 100 % Sania Bloc k physical exercise, frequency, days per week yes Sania Block caffeine use, averag e drinks per day no Sania Block passive cigarette sm kelvin exposure no Sania Briana smoking status Never smoker [facility] michi social history E&M Marital Statu s: / L sharita alone E thnicity: Smoking History: P atlong has never smoked. Hugo Ordoñez MD social history reviewed E&M revi ewed - no changes required Hugo Ordoñez MD seatbelt usage 100 % Giselesttamir suárez physical exercise, frequency, days per week yes Ana Sandoval alcohol use, average drinks per day none Chastity Jaime alcohol use no [facility] caffeine use, averag e drinks per day no [facility] Jaime drug use none [facility] Jaime passive cigarette sm kelvin exposure no Chastity Jaime smoking status Never smoker Ana Jacintou e smoking status Never smoker Celestine Levy seatbelt usage 100 % Velma Stefani n-Kashif physical exercise, frequency, days per week yes Velma Pruitt-Kashif alcohol use, average drinks per day none Velma Pruitt-Kashif alcohol use no Velma Pruitt- Kashif caffeine use, averag e drinks per day no Velma Pruitt-Kashif drug use none Velma Pruitt- Kashif passive cigarette sm kelvin exposure no Velma Pruitt-Kashif social history reviewed E&M revi ewed - no changes required Velma Rodriguez social history reviewed E&M revi ewed - no changes required Tab Taylor MD social history E&M Marital Statu s: / L sharita alone E thnicity: Smoking History: P shahab has never smoked. Tab aTylor MD seatbelt usage 100 % Lara Freedman'Aly physical exercise, frequency, days per week yes Lara O'Aly alcohol use, average drinks per day none Lara O'Aly alcohol use no Lara O'Aly caffeine use, averag e drinks per day no Lara O'Aly drug use none Lara O'Aly passive cigarette sm kelvin exposure no Lara O'Aly smoking status Never smoker Lara O'Aly number of grandchildren Tab Rock social history reviewed E&M revi ewed - no changes required [place] social history E&M Marital Statu s: / L sharita alone E thnicity: Smoking History: Caroline gudino has never smoked. Duke Pranav seatbelt usage 100 % Kendra torres physical exercise, frequency, days per week yes Kendra Gordon alcohol use, average drinks per day none Kendra Gordon alcohol use no Kendra Jernigan lder caffeine use, averag e drinks per day no Kendra Gordon drug use none Kendra Jernigan sunshineer passive cigarette sm kelvin exposure no Kendra Gordon smoking status Never smoker Kendra torres social history E&M Marital Statu s: / L sharita alone E thnicity: Smoking History: Caroline gudino has never smoked. Hugo Ordoñez MD social history reviewed E&M revi ewed - no changes required Hugo Ordoñez MD seatbelt usage 100 % Chastity Hogu e physical exercise, frequency, days per week yes Chastity Jaime alcohol use, average drinks per day none Chastity Jaime alcohol use no Chastity Jaime caffeine use, averag e drinks per day no Chastity Jaime drug use none Chastity Jaime passive cigarette sm kelvin exposure no Chastity Jaime smoking status Never smoker Chastity Hogu e social history E&M Marital Statu s: / L sharita alone E thnicity: Smoking History: Caroline gudino has never smoked. Hugo Ordoñez MD smoking status Never smoker Hugo Ordoñez MD social history reviewed E&M revi ewed - no changes required Hugo Ordoñez MD social history reviewed E&M revi ewed - no changes required Huog Ordoñez MD social history reviewed E&M revi ewed - no changes required Hugo Ordoñez MD number of grandchildren Hugo Everett social history reviewed E&M revi ewed - no changes required Rodo Berg MD number of grandchildren Rodo Everett social history reviewed E&M revi ewed - no changes required Hugo Ordoñez MD number of grandchildren Hugo De Dios [place] seatbelt usage 100 % [facility] [place] physical exercise, frequency, days per week yes Va Chris alcohol use, average drinks per day none Va Chris alcohol use no Va Chris caffeine use, averag e drinks per day no Va Chris drug use none Va Chris passive cigarette sm kelvin exposure no Va Chris smoking status Never smoker Va Chris social history reviewed E&M revi ewed - no changes required Rodo Berg MD number of grandchildren Rodo De Dios [place] social history reviewed E&M revi ewed - no changes required Rodo Berg MD seatbelt usage 100 % Brianna Larry physical exercise, frequency, days per week yes Brianna Larry alcohol use, average drinks per day none Brianna Larry alcohol use no Brianna Larry caffeine use, averag e drinks per day no Brianna Larry drug use none Brianna Larry passive cigarette sm kelvin exposure no Brianna Larry smoking status Never smoker Brianna Larry social history reviewed E&M revi ewed - no changes required Hugo Ordoñez MD number of grandchildren Hugo Ordoñez MD Va Perez social history reviewed E&M revi ewed - no changes required Hugo Ordoñez MD seatbelt usage 100 % Brianna Larry physical exercise, frequency, days per week yes Brianna Larry alcohol use, average drinks per day none Brianna Larry alcohol use no Brianna Larry caffeine use, averag e drinks per day no Brianna Larry drug use none Brianna Larry passive cigarette sm kelvin exposure no Brianna Larry smoking status Never smoker Brianna Larry social history reviewed E&M revi ewed - no changes required Genaro Jane MD seatbelt usage 100 % Brianna Larry physical exercise, frequency, days per week yes Brianna Larry alcohol use, average drinks per day none Brianna Larry alcohol use no Brianna Larry caffeine use, averag e drinks per day no Brianna Larry drug use none Brianna Larry passive cigarette sm kelvin exposure no Brianna Larry smoking status Never smoker Brianna Larry social history E&M Marital Statu s: / L sharita alone E thnicity: Hugo Ordoñez MD social history reviewed E&M revi ewed - no changes required Hugo Ordoñez MD social history reviewed E&M revi ewed - no changes required Hugo Ordoñez MD seatbelt usage 100 % Brianna Larry physical exercise, frequency, days per week yes Brianna Larry alcohol use, average drinks per day none Brianna Larry caffeine use, averag e drinks per day no Brianna Larry drug use none Brianna Larry passive cigarette sm kelvin exposure no Brianna Larry smoking status Never smoker Brianna Larry social history E&M Marital Statu s: L sharita alone E thnicity: Hugo Ordoñez MD social history reviewed E&M revgisell ewed - no changes required Hugo Ordoñez MD social history reviewed E&M jose arrieta - no changes required Hugo Ordoñez MD smoking status Never smoker Mary Kate social history reviewed E&M reviewed Hugo Ordoñez MD social history reviewed E&M reviewed Hugo Ordoñez MD drug use none Hugo Lilly social history reviewed E&M reviewed Hugo Ordoñez MD seatbelt usage 100 % Hugo Ordoñez MD drug use no Hugo Lilly passive cigarette sm kelvin exposure no Hugo Ordoñez MD social history reviewed E&M reviewed Hugo Ordoñez MD smoking status never smoker Heidi rodriguez social history reviewed E&M reviewed Hugo Ordoñez MD social history reviewed E&M reviewed Hugo Ordoñez MD social history reviewed E&M reviewed Hugo Ordoñez MD social history reviewed E&M reviewed Hugo Ordoñez MD social history reviewed E&M reviewed Hugo Ordoñez MD social history E&M Marital Statu s: L sharita alone E thnicity: Hugo Ordoñez MD drug use none Hugo Lilly social history reviewed E&M reviewed Hugo Ordoñez MD physical exercise, frequency, days per week yes [employer] caffeine use, averag e drinks per day no [employer]Log[employer] alcohol use, average drinks per day none [employer] smoking status Non-smoker [employer] MENTAL STATUS Date Observation Value Provider assessment of judgme nt and insight E&M Alert and oriented to time, place and person. Mood and affect are normal. Hugo Ordoñez MD assessment of judgme nt and insight E&M Alert and oriented to time, place and person. Mood and affect are normal. Hugo Ordoñez MD assessment of judgme nt and insight E&M Alert and oriented to time, place and person. Mood and affect are normal. Hugo Ordoñez MD assessment of judgme nt and insight E&M Alert and oriented to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 MD Cardiology Hugo Ordoñez MD Cardiology Hugo Ordoñez MD Cardiology: H er updated medication list for this problem includes: Aspirin Adult Low Dose 81 Mg Oral Tablet Delayed Release (Aspirin) ..... One tab by mouth daily Tab Taylor MD Cardiology:4 episode s as per pt while doing laundry will follow up in 2 months and schedule av node ablation Tab Taylor MD Cardiology:wellheali ng scar n ormal device funtion Tab Taylor MD Cardiology Hugo Ordoñez MD Cardiology Hugo Ordoñez MD Cardiology Hugo Ordoñez MD Cardiology Hugo Ordoñez MD Cardiology Hugo Ordoñez MD Electrophysiology:Re commend pacemaker implantation followed by treatment with AVN slowing agents that prevent any tachy arrhythmias followed by ablation of sinus node. Pt wishes to proceed. Dr. Ordoñez to do PPM implant at [facility] for sinus node dysfunction. The following medications were removed from the medication list: Metoprolol Tartrate 25 Mg Oral Tablet (Metoprolol tartrate) ..... One tab daily Her updated medication list for this problem includes: Aspirin Adult Low Dose 81 Mg Oral Tablet Delayed Release (Aspirin) ..... One tab by mouth daily Tab Taylor MD Electrophysiology: T he following medications were removed from the medication list: Metoprolol Tartrate 25 Mg Oral Tablet (Metoprolol tartrate) ..... One tab daily Her updated medication list for this problem includes: Aspirin Adult Low Dose 81 Mg Oral Tablet Delayed Release (Aspirin) ..... One tab by mouth daily Tab Taylor MD Cardiology Hugo Ordoñez MD Cardiology Hugo Ordoñez MD Cardiology Hugo Ordoñez MD Cardiology Hugo Ordoñez MD Cardiology:Having di fficulty getting Corlanor samples and cannot get coverage with insurance. Considering SA node ablation with pacemaker implantation as definitive therapy. Intolerant of BB due to hypotension. Hugo Ordoñez MD Electrophysiology [facility] Electrophysiology: H er updated medication list for this problem includes: Metoprolol Tartrate 25 Mg Oral Tablet (Metoprolol tartrate) ..... One tab daily Aspirin Adult Low Dose 81 Mg Oral Tablet Delayed Release (Aspirin) ..... One tab by mouth daily Celestine Levy Electrophysiology Celestine Levy Electrophysiology:Re mote Transmission: N o episodes or EGM's available B attery Status: OK N ext Remote: 06/06/2019.//DSE Celestine Levy Cardiology follow up :Increase salt intake and flluids. Hugo Ordoñez MD Cardiology follow up Hugo mari MD Cardiology follow up Hugo mari MD Cardiology follow up Hugo mari MD Cardiology follow up Hugo mari MD Cardiology follow up :Still feels terrible. I believe part is due to hypotension. Decrease metoprolol to 25mg daily. Increase salt and fluid intake. F/U with Dr Taylor to discuss further ablation (AV or SA node) and PPM. Hugo Ordoñez MD Cardiology-seen with MD and PRIVATE CLIENT ADVISOR A ruthie Gamboa [facility] Cardiology-seen with MD and PRIVATE CLIENT ADVISOR : none noted on ILR Dionne Gamboa [facility] Cardiology-seen with MD and PRIVATE CLIENT ADVISOR :Pt remains symptomatic with tachycardia interfering with her life and ability to perform activities of daily living. will increase corlanor dose to 5mg BID. H er updated medication list for this problem includes: Metoprolol Tartrate 25 Mg Oral Tablet (Metoprolol tartrate) ..... One tab. twice daily Aspirin Adult Low Dose 81 Mg Oral Tablet Delayed Release (Aspirin) ..... One tab by mouth daily Dionne Gamboa [facility] Cardiology:well heal ing scar a vised pt to apply ice pack on incision site. Celestine Levy Electrophysiology:IL R implantation O rders: E KG (CPT-83421) 9 9213 LTD. Complex (CPT-68277) 6 minute walk test (CPT-04647) Her updated medication list for this problem includes: Metoprolol Tartrate 25 Mg Oral Tablet (Metoprolol tartrate) ..... One tab. twice daily Aspirin Adult Low Dose 81 Mg Oral Tablet Delayed Release (Aspirin) ..... One tab by mouth daily Tab Taylor MD Electrophysiology: O rders: 9 9213 LTD. Complex (CPT-17242) 6 minute walk test (CPT-10788) L oop Rec Implant - [facility] (*) Her updated medication list for this problem includes: Metoprolol Tartrate 25 Mg Oral Tablet (Metoprolol tartrate) ..... One tab. twice daily Aspirin Adult Low Dose 81 Mg Oral Tablet Delayed Release (Aspirin) ..... One tab by mouth daily Tab Taylor MD Electrophysiology: O rders: 9 9213 LTD. Complex (CPT-06067) 6 minute walk test (CPT-47082) L oop Rec Implant - [facility] (*) Her updated medication list for this problem includes: Metoprolol Tartrate 25 Mg Oral Tablet (Metoprolol tartrate) ..... One tab. twice daily Aspirin Adult Low Dose 81 Mg Oral Tablet Delayed Release (Aspirin) ..... One tab by mouth daily Tab Taylor MD Electrophysiology:IL R implantation at [facility] with Dr. Tiago garcia evaluate ILR after implantation. If pt has afib, corlanor will be changed. O rders: L oop Rec Implant - [facility] (*) Her updated medication list for this problem includes: Metoprolol Tartrate 25 Mg Oral Tablet (Metoprolol tartrate) ..... One tab. twice daily Aspirin Adult Low Dose 81 Mg Oral Tablet Delayed Release (Aspirin) ..... One tab by mouth daily Tab Taylor MD Cardiology follow up :Start rosuvastatin 10mg daily. Recheck panel in 8 weeks with LFTs. Hugo Ordoñez MD Cardiology follow up Hugo mari MD Cardiology follow up Hugo mari MD Cardiology follow up Hugo mari MD Cardiology follow up Hugo mari MD Cardiology follow up :Start meto prolol 25mg bid. 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 T he following medications were removed from the medication list: Warfarin Sodium 5 Mg Oral Tablet (Warfarin sodium) ..... One tablet daily start 1 week before the procedure Adult Aspirin Ec Low Strength 81 Mg Oral Tablet Delayed Release (Aspirin) ..... Take one tab po once daily Metoprolol Tartrate 25 Mg Oral Tablet (Metoprolol tartrate) ..... One half tablet twice a day. Orders: 9 9214 MOD Complex (CPT-89658) B ASIC METABOLIC PANEL W/EGFR (74917) D -DIMER, QUANTITATIVE (8659) D -DIMER, QUANTITATIVE (8659) M obile Cardiac Tele (CPT-01236) Celestine Levy Cardiology Tab castaneda MD Cardiology: T he following medications were removed from the medication list: Warfarin Sodium 5 Mg Oral Tablet (Warfarin sodium) ..... One tablet daily start 1 week before the procedure Adult Aspirin Ec Low Strength 81 Mg Oral Tablet Delayed Release (Aspirin) ..... Take one tab po once daily Metoprolol Tartrate 25 Mg Oral Tablet (Metoprolol tartrate) ..... One half tablet twice a day. 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 T he following medications were removed from the medication list: Warfarin Sodium 5 Mg Oral Tablet (Warfarin sodium) ..... One tablet daily start 1 week before the procedure Adult Aspirin Ec Low Strength 81 Mg Oral Tablet Delayed Release (Aspirin) ..... Take one tab po once daily Metoprolol Tartrate 25 Mg Oral Tablet (Metoprolol tartrate) ..... One half tablet twice a day. Tab Taylor MD Electrophysiology Cam Tabor Electrophysiology: H er updated medication list for this problem includes: Warfarin Sodium 5 Mg Oral Tablet (Warfarin sodium) ..... One tablet daily start 1 week before the procedure Adult Aspirin Ec Low Strength 81 Mg Oral Tablet Delayed Release (Aspirin) ..... Take one tab po once daily Metoprolol Tartrate 25 Mg Oral Tablet (Metoprolol tartrate) ..... One half tablet twice a day. Cam [facility] Electrophysiology: H er updated medication list for this problem includes: Adult Aspirin Ec Low Strength 81 Mg Oral Tablet Delayed Release (Aspirin) ..... Take one tab po once daily Metoprolol Tartrate 25 Mg Oral Tablet (Metoprolol tartrate) ..... One half tablet twice a day. Cam [facility] Electrophysiology [facility] Electrophysiology: nuclear stress test Summary 1 . Normal myocardial perfusion imaging after vasodilator stress with Regadenoson. 2 . Normal left ventricular systolic function with a calculated ejection fraction of 75%. 3 . No obvious significant scintigraphic evidence of myocardial ischemia or scar. Cam [facility] Electrophysiology:SVT - S/P 09/03 AVNRT ablation. Tab Taylor MD Electrophysiology Ne w Patient :if decides to have EP study/ ablation - will need warfarin 5 mf PO daily before the procedure to start H er updated medication list for this problem includes: Adult Aspirin Ec Low Strength 81 Mg Oral Tablet Delayed Release (Aspirin) ..... Take one tab po once daily Metoprolol Tartrate 25 Mg Oral Tablet (Metoprolol tartrate) ..... One half tablet twice a day. Orders: E KG (CPT-40039) 9 9215 HIGH Complex (CPT-04584) A BLATION w/ Anesthesia (*) Rosita obile Cardiac Tele (CPT-04843) [facility] Electrophysiology Ne w Patient : O rders: E KG (CPT-13539) 9 9215 HIGH Complex (CPT-09769) A BLATION w/ Anesthesia (*) Her updated medication list for this problem includes: Adult Aspirin Ec Low Strength 81 Mg Oral Tablet Delayed Release (Aspirin) ..... Take one tab po once daily Metoprolol Tartrate 25 Mg Oral Tablet (Metoprolol tartrate) ..... One half tablet twice a day. Tab Taylor MD Cardiology Hugo Ordoñez MD Cardiology Hugo Ordoñez MD Cardiology Hugo Ordoñez MD Cardiology Hugo Ordoñez MD Cardiology Hugo Ordoñez MD Cardiology Hugo Ordoñez MD Cardiology Hugo Ordoñez MD Cardiology Hugo Ordoñez MD Cardiology Hugo Ordoñez MD Cardiology Hugo Ordoñez MD Cardiology Hugo Ordoñez MD Cardiology Hugo Ordoñez MD Cardiology Hugo Ordoñez MD Cardiology Hugo Ordoñez MD Cardiology Hugo Ordoñez MD Cardiology Hugo Ordoñez MD Cardiology Hugo Ordoñez MD Cardiology Hugo Ordoñez MD Cardiology Hugo Ordoñez MD Cardiology Hugo Ordoñez MD Cardiology Hugo Ordoñez MD Cardiology Hugo Ordoñez MD Cardiology Hugo Ordoñez MD Cardiology Hugo Ordoñez MD Cardiology Hugo Ordoñez MD Cardiology Hugo Ordoñez MD Cardiology Hugo Ordoñez MD Cardiology Hugo Ordoñez MD Cardiology Hugo Ordoñez MD Cardiology:Doing well on jazmin Ordoñez MD Cardiology Hugo Ordoñez MD Cardiology Hugo Ordoñez MD Cardiology Hugo Ordoñez MD Cardiology Hugo Ordoñez MD Cardiology Hugo Ordoñez MD Cardiology Hugo Ordoñez MD Cardiology Hugo Ordoñez MD Cardiology Hugo Ordoñez MD Cardiology Hugo Ordoñez MD Cardiology Hugo Ordoñez MD Cardiology Genaro Lilly Cardiology Genaro Lilly Cardiology Genaro Lilly Cardiology Genaro Lilly Cardiology Genaro Lilly Cardiology Hugo Ordoñez MD Cardiology Hugo Ordoñez MD Cardiology Hugo Ordoñez MD Cardiology Hugo Ordoñez MD Cardiology Hugo Ordoñez MD Cardiology Hugo Ordoñez MD Cardiology Hugo Ordoñez MD Cardiology Hugo Ordoñez MD Cardiology Hugo Ordoñez MD Cardiology:Has clot on IVC filte r. On coumadin Hugo Ordoñez MD F/U Hugo Ordoñez MD F/U Hugo Ordoñez MD F/U Hugo Ordoñez MD F/U Hugo Ordoñez MD follow up : O rders: E KG (CPT-61631) BP today: 140/96 Prior BP: 136/92 (02/28/2013) H CT: 34.0 (08/22/2012) Platelets: 201 (08/22/2012) C reat: 0.69 (08/22/2012) Na+: 143 (08/22/2012) K+: 3.6 (08/22/2012) Nuclear Stress Findings: 1. Normal myocardial perfusion imaging after vasodilator stress with Regadenoson. 2 . Normal left ventricular systolic function with a calculated ejection fraction of 72%. 3 . Distal anterior soft tissue attenuation seen at rest , and at peak stress. Overall, there is no scintigraphic evidence for scar tissue or myocardial ischemia. CNE (03/26/2011) Hugo Ordoñez MD follow up Hugo Ordoñez MD follow up: T he following medications were removed from the medication list: Carvedilol 3.125 Mg Tabs (Carvedilol) ..... 1 tab twice daily Propranolol Hcl 20 Mg Tabs (Propranolol hcl) ..... Three times daily BP today: 100/80 Prior BP: 121/86 (04/19/2012) N uclear Stress Findings: 1. Normal myocardial perfusion imaging after vasodilator stress with Regadenoson. 2 . Normal left ventricular systolic function with a calculated ejection fraction of 72%. 3 . Distal anterior soft tissue attenuation seen at rest , and at peak stress. Overall, there is no scintigraphic evidence for scar tissue or myocardial ischemia. CNE (03/26/2011) Hugo Ordoñez MD follow up: T he following medications were removed from the medication list: Furosemide 20 Mg Tabs (Furosemide) ..... Once daily Her updated medication list for this problem includes: Carvedilol 3.125 Mg Tabs (Carvedilol) ..... 1 tab twice daily Propranolol Hcl 20 Mg Tabs (Propranolol hcl) ..... Three times daily Orders: E KG (CPT-48904) BP today: 121/86 Prior BP: 127/88 (10/20/2011) N uclear Stress Findings: 1. Normal myocardial perfusion imaging after vasodilator stress with Regadenoson. 2 . Normal left ventricular systolic function with a calculated ejection fraction of 72%. 3 . Distal anterior soft tissue attenuation seen at rest , and at peak stress. Overall, there is no scintigraphic evidence for scar tissue or myocardial ischemia. CNE (03/26/2011) Hugo Ordoñez MD follow up: H er updated medication list for this problem includes: Carvedilol 3.125 Mg Tabs (Carvedilol) ..... 1 tab twice daily Furosemide 20 Mg Tabs (Furosemide) ..... Once daily Propranolol Hcl 20 Mg Tabs (Propranolol hcl) ..... Three times daily BP today: 127/88 Prior BP: 110/88 (09/11/2011) N uclear Stress Findings: 1. Normal myocardial perfusion imaging after vasodilator stress with Regadenoson. 2 . Normal left ventricular systolic function with a calculated ejection fraction of 72%. 3 . Distal anterior soft tissue attenuation seen at rest , and at peak stress. Overall, there is no scintigraphic evidence for scar tissue or myocardial ischemia. CNE (03/26/2011) E chocardiogram: The E to A ratio shows signs of borderline left ventricular diastolic dysfunction. Normal E/E` 5.6. Left ventricular ejection fraction is estimated at 60%. No significant valvular abnormalities. - CNSammi (03/26/2011) Hugo Ordoñez MD follow u p: H er updated medication list for this problem includes: Carvedilol 3.125 Mg Tabs (Carvedilol) ..... 1 tab twice daily BP today: 110/88 Prior BP: 145/90 (07/10/2011) N uclear Stress Findings: 1. Normal myocardial perfusion imaging after vasodilator stress with Regadenoson. 2 . Normal left ventricular systolic function with a calculated ejection fraction of 72%. 3. Distal anterior soft tissue attenuation seen at rest , and at peak stress. Overall, there is no scintigraphic evidence for scar tissue or myocardial ischemia. CNE (03/26/2011) E chocardiogram: The E to A ratio shows signs of borderline left ventricular diastolic dysfunction. Normal E/E` 5.6. Left ventricular ejection fraction is estimated at 60%. No significant valvular abnormalities. - CNE (03/26/2011) Hugo Ordoñez MD FU: B P today: 145/90 Prior BP: 122/80 (04/14/2011) N uclear Stress Findings: 1. Normal myocardial perfusion imaging after vasodilator stress with Regadenoson. 2 . Normal left ventricular systolic function with a calculated ejection fraction of 72%. 3 . Distal anterior soft tissue attenuation seen at rest , and at peak stress. Overall, there is no scintigraphic evidence for scar tissue or myocardial ischemia. CNE (03/26/2011) E chocardiogram: The E to A ratio shows signs of borderline left ventricular diastolic dysfunction. Normal E/E` 5.6. Left ventricular ejection fraction is estimated at 60%. No significant valvular abnormalities. - CNE (03/26/2011) Hugo Ordoñez MD FU: B P today: 122/80 Prior BP: 100/72 (04/09/2011) N uclear Stress Findings: 1. Normal myocardial perfusion imaging after vasodilator stress with Regadenoson. 2 . Normal left ventricular systolic function with a calculated ejection fraction of 72%. 3 . Distal anterior soft tissue attenuation seen at rest , and at peak stress. Overall, there is no scintigraphic evidence for scar tissue or myocardial ischemia. CNE (03/26/2011) E chocardiogram: The E to A ratio shows signs of borderline left ventricular diastolic dysfunction. Normal E/E` 5.6. Left ventricular ejection fraction is estimated at 60%. No significant valvular abnormalities. - CNE (03/26/2011) Hugo Ordoñez MD follow up: B P today: 100/72 Prior BP: 86/60 (03/12/2011) N uclear Stress Findings: 1. Normal myocardial perfusion imaging after vasodilator stress with Regadenoson. 2 . Normal left ventricular systolic function with a calculated ejection fraction of 72%. 3 . Distal anterior soft tissue attenuation seen at rest , and at peak stress. Overall, there is no scintigraphic evidence for scar tissue or myocardial ischemia. CNE (03/26/2011) E chocardiogram: The E to A ratio shows signs of borderline left ventricular diastolic dysfunction. Normal E/E` 5.6. Left ventricular ejection fraction is estimated at 60%. No significant valvular abnormalities. - CNE (03/26/2011) Hugo Ordoñez MD : O rders: C omplete Echo (CPT-17751) S tress Test - Adenosine (58788) Hugo Ordoñez MD : O rders: C omplete Echo (CPT-69308) Hugo Ordoñez MD : O rders: S tress Test - Adenosine (24649) E vent Recorder (*) BP today: 86/60 Prior BP: / () Hugo Ordoñez MD Date Name EKG MARYSOL - [facility] MAR[facility]OL - [facility] BASIC METABOLIC PANE L W/EGFR [facility] - [facility] Stress Regadenoson Complete Echo COVID19 nasal swab ( LC) COVID19 nasal swab ( LC) URINALYSIS, COMPLETE COMPREHENSIVE METABO LIC PANEL, W/EGFR CBC (INCLUDES DIFF/P LT) Partial Thromboplast in Time, Activated PROTHROMBIN TIME WIT H INR X-Ray, Chest - Routi ne Complete Echo X-Ray, Chest - Routi ne X-Ray, Chest - Routi ne PARTIAL THROMBOPLAST IN TIME, ACTIVATED URINALYSIS, COMPLETE W/REFLEX TO CULTURE COMPREHENSIVE METABO LIC PANEL W/EGFR PROTHROMBIN TIME WIT H INR CBC (INCLUDES DIFF/P LT) URINALYSIS, COMPLETE W/REFLEX TO CULTURE COMPREHENSIVE METABO LIC PANEL W/EGFR PARTIAL THROMBOPLAST IN TIME, ACTIVATED PROTHROMBIN TIME WIT H INR CBC (INCLUDES DIFF/P LT) Device Removal - [facility] V EKG TSH, free T4, total T3 CBC (INCLUDES DIFF/P LT) PROTHROMBIN TIME WIT H INR LIPID PANEL CBC (INCLUDES DIFF/P LT) BASIC METABOLIC PANE L W/EGFR Cardiac Cath - Left - [facility] BASIC METABOLIC PANE L W/EGFR CBC (INCLUDES DIFF/P LT) Partial Thromboplast in Time, Activated PROTHROMBIN TIME WIT H INR Covid Antibody IgA ( LC) Covid Antibody IgM ( LC) Covid Antibody Igg BASIC METABOLIC PANE L W/EGFR CBC (INCLUDES DIFF/P LT) PROTHROMBIN TIME WIT H INR Covid Antibody IgA ( LC) Covid Antibody IgM ( LC) PROTHROMBIN TIME WIT H INR Partial Thromboplast in Time, Activated CBC (INCLUDES DIFF/P LT) BASIC METABOLIC PANE L W/EGFR ABLATION w/ Anesthes ia PROTHROMBIN TIME WIT H INR CBC (INCLUDES DIFF/P LT) BASIC METABOLIC PANE L W/EGFR URINALYSIS, COMPLETE W/REFLEX TO CULTURE Pacemaker Dual Chamb er - [facility] Loop Rec Implant - [facility] 6 minute walk test Holter Monitor 48 hr PROBNP, N TERMINAL Mobile Cardiac Tele D-DIMER, QUANTITATIV E BASIC METABOLIC PANE L W/EGFR B TYPE NATRIURETIC P EPTIDE (BNP) Mobile Cardiac Tele VITAMIN B12/FOLATE, SERUM PANEL Partial Thromboplast in Time, Activated PROTHROMBIN TIME WIT H INR CBC (INCLUDES DIFF/P LT) BASIC METABOLIC PANE L W/EGFR Mobile Cardiac Tele ABLATION w/ Anesthes ia STR - Adenosine Complete Echo Sleep Study Home STR - Nuclear Mobile Cardiac Tele D-DIMER, QUANTITATIV E Event Recorder Stress Test - Adenos ine Complete Echo HISTORY OF PROCEDURES Procedure Date Procedure Name Provider Procedure Notes S tatus Complex e/m visit add on Hugo Ordoñez MD completed Complex e/m visit add on Hugo Ordoñez MD completed Complex e/m visit add on Trent Pike MD completed Complex e/m visit add on Hugo Ordoñez MD completed EKG Hugo Ordoñez MD complete d EKG Hugo Ordoñez MD complete d EKG Hugo Ordoñez MD complete d EKG Hugo Ordoñez MD complete d EKG Jean Claude Whiteside DO comple jaden EKG Jean Claude Whiteside DO comple jaden EKG Jean Claude Whiteside DO comple jaden EKG Hugo Ordoñez MD complete d EKG Cheriseus Claudia BRYANT comp leted EKG Hugo Ordoñez MD complete d Schedule Followup ulius Claudia BRYANT in 1 yea r completed EKG ulius Cluadia BRYANT comp leted each additional 20 minutes, up to 2 times Hugo Ordoñez MD completed EKG ulius Claudia BRYANT comp leted Protime Arpit Le MD complete d EKG Saulius Nghiaitis comp leted EKG ulius Nghiaitis comp leted EKG Saulius Nghiaitis comp leted EKG Hugo Ordoñez MD complete d EKG ulius Claudia BRYANT comp leted EKG ulius Claudia BRYANT comp leted 6 minute walk test Tab Taylor MD completed EKG ulius Claudia BRYANT comp leted Holter, 24 or 48 Hguo Ordoñez MD co mpleted EKG Hugo Ordoñez MD complete d EKG Hugo Ordoñez MD complete d Mobile Cardiac Telem etry - Tech Tab Taylor MD completed Mobile Cardiac Telem etry - Prof Tab Taylor MD completed EKG ulius Claudia BRYANT comp leted Protann-marie Bernard MD complet ed Schedule Followup ulius Claudia BRYANT in 6 mo completed Mobile Cardiac Telem etry - Tech Hguo Ordoñez MD completed Mobile Cardiac Telem etry - Prof Hugo Ordoñez MD completed EKG ulius Claudia BRYANT comp leted Stress EKG Yonathan Bernard MD complet ed Regadenoson, 4 units Yonathan Bernard MD completed Cardiolite, 2 units Yonathan Bernard MD completed SPECT Images Yonathan Bernard MD compl eted EKG Hugo Ordoñez MD complete d SNOMED-CT: 818463681501586 Current Medications Documented Hugo Ordoñez MD completed SNOMED-CT: 311492585589560 Current Medications Documented Hugo Ordoñez MD completed EKG Rodo Berg MD comp leted SNOMED-CT: 657428929186288 Current Medications Documented Rodo Berg MD completed EKG Rodo Berg MD comp leted SNOMED-CT: 172130504942539 Current Medications Documented Rodo Berg MD completed SNOMED-CT: 635740506006798 Current Medications Documented Hugo Ordoñez MD completed EKG Hugo Ordoñez MD complete d SNOMED-CT: 067465524387841 Current Medications Documented Hugo Ordoñez MD completed EKG Rodo Berg MD comp leted SNOMED-CT: 653696527724282 Current Medications Documented Rodo Berg MD completed SNOMED-CT: 280083619918657 Current Medications Documented Hugo Ordoñez MD completed Event Monitor Luis M Pagan completed Stress EKG Yonathan Bernard MD complet ed Regadenoson, 4 units Yonathan Bernard MD completed Cardiolite, 2 units Yonathan Bernard MD completed SPECT Images Yonathan Bernard MD compl eted SNOMED-CT: 156294559561509 Current Medications Documented Hugo Ordoñez MD completed Ambulatory BP Genaro Jane MD comp leted Ambulatory BP Genaro Jane MD comp leted EKG Genaro Jane MD complet ed SNOMED-CT: 553436906187736 Current Medications Documented Genaro Jane MD completed EKG Hugo Ordoñez MD complete d SNOMED-CT: [id number] Current Medications Documented Hugo Ordoñez MD completed LISSETTE Ordoñez MD complete d LISSETTE Ordoñez MD complete d
--- OUTSIDE RECORDS SUMMARY | 2024-09-22 15:08 | XMS_ITS | Clinical Summary ---
Author Organization [facility] Address [address] [place] [address] Care Team Providers Care Storage And Backup Administrator Name Role Phone Tom Paz MD Primary Care Provider [phone] Allergies Active Allergy Reactions Criticality Noted Date Comments Acetaminophen-Codeine Rash Low 04/09/2011 Adhesive Other (See Comments) 02/28/2014 Rash if tape on too long / Paper tape is better Apple Anaphylaxis High 07/15/2023 Raw apples Carbamazepine Rash Medium 04/10/2021 SJS Tegretol Cefuroxime Hives High 04/09/2011 Chlorhexidin-Isopropyl Alcohol Rash Low 01/08/2024 Clarithromycin Hives High 04/09/2011 Codeine Nausea and Vomiting Low 12/09/2023 Diphenhydramine Hives,Other (See Comments) High 04/09/2011 Passed out Passed out passes out Reaction: Other Emollient Base Rash Low 12/09/2023 Dermabond - blisters Etanercept Swelling Low 12/09/2023 Embrel Gum Dzxqjo-Fvztac-Ckyq-Alcoho l Rash Low 12/09/2023 Mastisol - blisters and spaulding Hydrocodone-Acetaminophen Nausea and Vomiting Low 0 04/09/2011 Severe vomiting Hydromorphone Hives High 11/21/2019 Imipramine Hives,Rash High 02/28/2014 Meclizine Anaphylaxis,Swelling High 02/28/2014 Throat swelled Throat swelled Throat swelled Oxycodone-Acetaminophen Hives High 04/09/2011 Pt can only take Morphine Penicillins Hives,Rash High 04/09/2011 Prochlorperazine Anaphylaxis,Other (See Comments),Swelling High 04/09/2011 Throat swelled Throat swelled Throat swelling Reaction: Propoxyphene N-Acetaminophen Hives High 12/26/2019 Propranolol Hives,Rash High 04/09/2011 Protein C Concentrate, Human Other (See Comments) Low 05/31/2021 Reaction: Tizanidine Hallucination Low 12/09/2023 Medications acetaminophen (TYLENOL) 500 mg Capsule Take 1,000 mg by mouth. 1 Active aspirin (WILTON CHEWABLE) 81 mg Tablet, Chewable Take 81 mg by mouth daily. 1 Active cetirizine (ZyrTEC) 10 mg tablet Take 10 mg by mouth daily. Active diclofenac sodium (VOLTAREN) 1 % gel Apply 2 Grams to affected area every 6 hours as needed. 0 Active DULoxetine (CYMBALTA) 60 mg Capsule, Delayed Release(E.C.) Take by mouth daily at bedtime. 0 Active hydrocortisone (HYTONE) 2.5 % Ointment Apply to affected area 1 time daily as needed. 0 Active hydrOXYzine HCL (ATARAX) 25 mg tablet Take 25 mg by mouth every 8 hours as needed. Active ketoconazole (NIZORAL) 2 % Cream every 12 hours as needed. 0 Active lidocaine (LIDODERM) 5 % Adhesive Patch, Medicated Apply 2 Patches to skin as directed daily. Active methotrexate (RHEUMATREX) 2.5 mg Tablet Take 6 tablets ( 15mg) by mouth once weekly in the PM. . 1 Active metoprolol tartrate (LOPRESSOR) 100 mg tablet Take 50 mg by mouth 2 times daily. 1 Active nitroglycerin (NITROSTAT) 0.4 mg Tablet, Sublingual nitroglycerin 0.4 mg tablet, sublingual 0 Active rOPINIRole (REQUIP) 1 mg tablet Take 1 mg by mouth 4 times daily. Active rosuvastatin (CRESTOR) 20 mg tablet Take by mouth daily. 0 Active albuterol sulfate 90 mcg/Actuation inhaler TAKE 1 PUFF EVERY 4 HOURS NEEDED FOR SHORTNESS OF BREATH OR WHEEZING 2 Active buprenorphine (BUTRANS) 5 mcg/hour patch Apply 1 Patch to skin as directed every 7 days. 7.5 on Thursday 2 Active folic acid (FOLVITE) 1 mg tablet Take 2 mg by mouth daily. 2 Active montelukast (SINGULAIR) 10 mg tablet Take 10 mg by mouth daily. 2 Active ondansetron (ZOFRAN ODT) 4 mg Tablet, Rapid Dissolve every 6 hours as needed. 1 Active promethazine (PHENERGAN) 12.5 mg Suppository Insert 12.5 mg by rectum every 12 hours as needed for Nausea/Emesis. Active mupirocin calcium (BACTROBAN) 2 % Cream Apply to affected area 2 times daily. Active EPINEPHrine (EPIPEN) 0.3 mg/0.3 mL Auto-Injector Inject 0.3 mg by intramuscular injection 1 time daily as needed for Anaphylaxis. Active warfarin (COUMADIN) 1 mg tablet Take 5 mg by mouth daily after supper. Active baclofen (LIORESAL) 5 mg tablet Take 5 mg by mouth every 8 hours as needed. 4 Active pramipexole (MIRAPEX) 1 mg Tablet Take 1 mg by mouth 3 times daily. Active gabapentin (NEURONTIN) 100 mg capsule take 1 capsule by mouth everyday at bedtime 4 Active fexofenadine (MORGAN) 180 mg tablet Take 180 mg by mouth daily. Active sodium chloride (SIMPLY SALINE BOTH NOSTRIL) Administer in each nostril daily. Active Simponi 50 mg/0.5 mL injector INJECT 50 MG (0.5 ML) UNDER THE SKIN EVERY 4 WEEKS 4 Active traMADoL (ULTRAM) 50 mg tablet Take 1 Tablet (50 mg) by mouth every 6 hours as needed for pain. 10 Tablet 12/25/2023 9:49 AM CDT 4 Active Active Problems Problem Noted Date Diagnosed Date Macrocytosis without anemia 01/28/2022 Encounters Date Type Department Care Team Description 09/20/2024 External Device Data STL ABSTRACTION Provider, Abstract 09/07/2024 External Device Data STL ABSTRACTION Provider, Abstract 09/06/2024 External Device Data STL ABSTRACTION Provider, Abstract 08/10/2024 External Device Data STL ABSTRACTION Provider, Abstract 08/09/2024 External Device Data STL ABSTRACTION Provider, Abstract 08/03/2024 External Device Data STL ABSTRACTION Provider, Abstract 07/26/2024 External Device Data STL ABSTRACTION Provider, Abstract from Last 3 Months Family History Medical History Relation Name Comments Cancer Father Relation Name Status Comments Brother 1 Alive Brother 2 Alive Father Mother Sister 1 Alive Sister 2 Alive Social History Tobacco Use Types Packs/Day Years Used Date Smoking Tobacco: Never Smokeless Tobacco: Never Tobacco Cessation:Counseling Given: Not Answered Alcohol Use Standard Drinks/Week Comments Never 0 (1 standard drink = 0.6 oz pur e alcohol) Comments No Sex and Gender Information Value Date Recorded Sex Assigned at Not on file Legal Sex Female 9:43 PM CDT Gender Identity Not on file Sexual Orientation Not on file Last Filed Vital Signs Vital Sign Reading Time Taken Comments Blood Pressure 111/70 12/25/2023 7:46 AM CDT Pulse 73 12/25/2023 7:46 AM CDT Temperature 36.5 C (97.7 F) 12/25/2023 7:46 AM CDT Respiratory Rate 18 12/25/2023 7:46 AM CDT Oxygen Saturation 93% 12/25/2023 7:46 AM CDT Inhaled Oxygen Concentration - - Weight 86.2 kg (190 lb) 12/24/2023 9:03 AM CDT Height 170.2 cm (5' 7 ) 12/24/2023 9:03 AM CDT Body Mass Index 29.76 12/24/2023 9:03 AM CDT Plan of Treatment Health Maintenance Due Date Last Done Comments Pre-Diabetes and Diabetes Screening 1965 DTAP/TDAP/TD VACCINES (1 - Tdap) 1983 BREAST CANCER SCREENING 2004 FIT-DNA Q 3 years 2009 FIT/FOBT Q 1 year 2009 Flex Sig/CT Colonography Q 5 years 2009 ZOSTER VACCINE (1 of 2) 2014 INFLUENZA VACCINE (#1) 2024 CERVICAL CANCER SCREENING 10/08/20242021, 10/08/2021, 08/16/2019, Additional history exists COLORECTAL SCREENING 07/25/2025 07/25/2015 Colorectal Cancer Screening 07/25/2025 RSV VACCINE (60+ or ) (1 - 1-dose 75+ series) 2039 HEPATITIS B VACCINES Aged Out No long er eligible based on patient's age to complete this topic Medical Devices Implanted Type Area Clinical Esthetician Device Identifier Shelf Expiration Date Model / Serial / Lot Tyrx Antibacterial Envelope Med [id number] - [id number] Implanted:Qty: 1 on 12/24/2023 at [facility] Mesh Left: Chest [employer]TRONIC- CARD RHYTHM MGMT 10/01/2024 [id number] / / [id number] Neuro Stimulator Neuro Stimulator [employer] SC-1200 / / Description:leads: SC- Need lead numbers Dc Ppm Gen Implanted:Qty: 1 on 12/24/2023 by Burton Forbes MD at [facility] N/A: Chest Wall [id number] / [id number] 90 / Explanted Type Area Clinical Esthetician Device Identifier Shelf Expiration Date Model / Serial / Lot Dc Eluna 8 Ppm Gen Explanted:Qty: 1 on 12/24/2023 by Burton Forbes MD at [facility] Pacemaker Chest Wall [employer] ELUNA 8 KRISTY / [id number] / Description:Implant date: Per [employer] Rep - NOT MRI safe (extra cap lead -ABANDONED LEAD - NO MRI -lizandro 08/14/23 Insurance MEDICARE PART A AND B [facility] [place] [id number] [place] [address] MEDICARE PART A AND B [address] [place] [address] RX OPTUM RX Member Subscriber Plan / Payer (Ef fective 2023-Present) Name:Naye Hart Relation to Subscriber:Self Name:Naye Hart Subscriber ID:Not on file Payer ID:Not on file Group ID:[id number] Type:RX Commercial Address: [address] Advance Directives For more information, please contact: [phone] Documents on File Type Date Recorded 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 [address] PCP - General Family Practice 01/28/22
== END 2024-09-22 13:48 | disposition home or self-care (01) ==
PROVIDERS: PCP Family Medicine; Visit Provider Family Medicine
DX: M79.671 Pain in right foot (principal); R60.0 Localized edema
CPT/HCPCS: 73630; 93971

== ENCOUNTER 2024-09-30 12:10 | Emergency (ER) | payer OTHER, MEDICARE, MEDICAID, SELFPAY ==
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
[2024-09-30 12:13] VITALS: BP 124/76; PULSE 70; RESP 16; TEMP 36.1; O2SAT 97
--- OUTSIDE RECORDS SUMMARY | 2024-09-30 12:28 | XMS_ITS | Continuity of Care Document ---
Author Organization [facility] Address [address] [place] [address] [address] [place] [address] Phone Care Team Providers Care Briquetter Operator Name Role Phone Anthony Gutierrez Unavailable Unavailable [...] Providers Copied on Encounter Office/outpat ient Visit, [facility], [address] [place] [address] [address], [place], [place], [id number], [place] tel:[phone] SEC [facility] No Information 0 0 Krishnasamy Anthony. [address] [facility] [address], [place], [address], [place]. tel:[phone] Office/outpat ient Visit, [facility], [address] [place] [address] [address], [place], [place], [id number], [place] tel:[phone] [facility] [place] No Information 0 0 Krishnasamy Anthony. [address] [facility] [place] [address], [place], [place], [facility], [place]. tel:[phone] Office/outpat ient Visit, Est [facility] Eye [facility], [address] [place] [address] [address], [place], [place], [id number], [place] tel:[phone] SEC [facility] No Information Fe-2 3-201 0 Krishnasamy Anthony. [address] [facility] [place] [address], [place], [place], [facility], [place]. tel:[phone] [facility] Eye [facility], [address] [place] [address] [address], [place], [place], [id number], [place] tel:[phone] SEC [facility] No Information Jan-3 1-200 9 Krishnasamy Anthony. [facility] [address], [place], [place], [facility], [place]. tel:[phone] [facility], [address] [place] [address] [address], [place], [place], [id number], [place] tel:[phone] SEC [facility] No Information You-2 2-200 9 Krishnasamy Anthony. [address] [place], [place] [address]ate [place] [address], [place], [place], [facility], [place]. tel:[phone] [facility], [address] [place] [address] [address], [place], [place], [id number], [place] tel:[phone] [facility] [place] No Information May-0 8-200 9 Krishnasamy Anthony. [facility] [place] [address], [place], [facility], [place]. tel:[phone] [facility], [address], [place], [place], [id number], [place] tel:[phone] [address] [facility] No Information Apr-2 8-200 7 Montes OD Simone. [address], [place], [place], [facility], [place]. tel:[phone] Family History Family Member Type Diagnosis Age At Onset No Information Payers Payer name Insurance type Covered alliance party ID Authoriza tion(s) Medicare [facility] [id number] Medicaid [facility] [id number] Social History Type Description Quantity Date Captured [...]
--- OUTSIDE RECORDS SUMMARY | 2024-09-30 12:28 | XMS_ITS | Data Portability ---
Author Organization [facility], Main Office Address [address] [place] [address] Care Team Providers Care Search Engine Marketing Specialist Name Role Phone ANGEL DIETZ Primary Care Provider [phone] ANGEL DIETZ Referring Provider [phone] Assessment Encounter Date Assessment Date Assessment LastModified by Organization Details LastModified Time 04/20/2023 04/20/2023 This note is dictated and transcribed by [employer]. V[employer]er [employer] variances may occur. Despite proofreading, typographical errors may occur. [email or web address] Not available 04/20/2023 12:45:53 04/27/2023 04/27/2023 This note is dictated and transcribed by [employer]. [employer] variances may occur. Despite proofreading, typographical errors may occur. [email or web address] Not available 04/27/2023 10:35:53 Plan of Treatment Reminders Order Date Submit Date Provider Last Modified By Organization Details Last Modified Time Details Appointments None record ed. Lab None record ed. Referral None record ed. Procedures None record ed. Surgeries None record ed. Imaging None record ed. Medication Orders None record ed. Patient TargetsNo targets recorded. Patient Instructions Encounter Date Encounter Id Patient Instructions Last Modified By Organization Details Last Modified Time 04/20/2023 [id number] plantar warts: care instructions [email or web address] Not available 04/20/2023 12:46:05 Reason for Referral None Reported. Results Created Date Observation Date Name Description Value Unit Range Abnormal Flag Note LastModifiedBy Organization Detail LastModifiedTime 09/21/19 21 09/20/2020 pregn duglas test, urine ur preg negati ve TESTI NG PERFO RMED BY SURGI SIS SERVI BETHEL PERSO NNEL. Not Available [facility] (Lab) [address] [place], [address], 09/20/2020 10:02:45 09/21/19 21 09/20/2020 pregn duglas test, urine lot no. [id number] Not Available [facility] (Lab) [address] [place], [address], 09/20/2020 10:02:45 09/21/19 21 09/20/2020 pregn duglas test, urine pos QC positi ve Not Available [facility] (Lab) [address] [place], [address], 09/20/2020 10:02:45 09/21/19 21 09/20/2020 pregn duglas test, urine neg QC negati ve Not Available [facility] (Lab) [address] [place], [address], 09/20/2020 10:02:45 Result Notes None recorded. Problems Name Problem SNOMED Code Status Onset Date Resolution Date Notes Provider Name and Address Organization Details Recorded Time Dysmenorrh ea 043107226 Active Not Available [facility] 3 01:01:15 Lesion of vulva 383874270 Active Not Available [facility] 3 01:01:16 Menorrhagi a 114194272 Active Not Available [facility] 3 01:01:16 Vulvitis 00065776 Active Not Available [facility] 3 01:01:16 Plantar wart of left foot [id number] 9102 Active 2022 You Pierce DPM [address], [place], [address] , [employer] [facility] [email or web address] 3 14:40:48 Blister of foot without infection 7007074 Active 2022 You Pierce DPM [address], [place], [address] , [employer] [facility] [email or web address] 3 10:36:11 Problem Notes None recorded. 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 Not Available [facility] 09/17/2022 00:49:08 020 Date of Last Pap Smear completed Not Available [facility] 09/17/2022 00:48:57 019 Pacemaker completed Not Available [facility] 09/17/2022 00:49:08 019 Most Recent Mammogram completed Not Available [facility] 09/17/2022 00:48:58 017 Hernia Repair completed Not Available [facility] 09/17/2022 00:49:08 013 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 Not Available [facility] 09/17/2022 00:49:08 989 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 Procedure Notes None recorded. Medical Equipment None Reported. Allergies Allergen ID Allergen Name Allergen Category Reaction Reaction Severity Criticality Documentation Date Start Date Code Code System Note Provider Name and Address Organization Details Recorded Time 1925 acetamino phen / hydrocodo ne medicatio n vomiting mild Not available 09/17/2022 46875 2 RxNorm Not Available [facility] 3 01:18:15 1927 Tylenol with Codeine medicatio n vomiting severe Not available 09/17/2022 47638 6 RxNorm Not Available [facility] 3 01:18:15 1928 acetamino phen / oxycodone medicatio n hives severe Not available 09/17/2022 76751 3 RxNorm Not Available [facility] 3 01:18:16 1929 Product containin g penicilli n (product) medicatio n hives severe Not available 09/17/2022 21657 8001 SNOMED Not Available [facility] 3 01:18:16 1930 meclizine medicatio n anaphylax is severe Not available 09/17/2022 6676 RxNorm aller gy previ ously marke d as life -thre ateni ng Not Available [facility] 3 01:18:16 1931 Inderal medicatio n rash severe Not available 09/17/2022 89426 0 RxNorm Not Available [facility] 3 01:18:16 1932 imipramin e Not available hives moderate Not available 09/17/2022 5691 RxNorm Not Available [facility] 3 01:18:16 1933 Dilaudid medicatio n other moderate Not available 09/17/2022 15273 3 RxNorm Not Available [facility] 3 01:18:16 1934 propoxyph giovanny hydrochlo ride medicatio n hives severe Not available 09/17/2022 84770 RxNorm Not Available [facility] 3 01:18:16 1935 Acetamino phen / Propoxyph giovanny medicatio n hives severe Not available 09/17/2022 87332 RxNorm Not Available [facility] 3 01:18:16 1936 Compazine medicatio n anaphylax is severe Not available 09/17/2022 06316 6 RxNorm [facility]RICIA [facility] 3 12:11:18 193 Ceftin medicatio n hives severe Not available 09/17/202295766 6 RxNorm Not Available [facility] 3 01:18:17 1938 Biaxin medicatio n hives severe Not available 09/17/202221104 9 [facility] 12:11[facility]04 193 Benadryl medicatio n hives severe Not available 09/17/202256318 7 RxNorm Not Available [facility] 3 01:18:17 52400 carbamaze pine medicatio n Not available Not available Not available 04/13/20232001 RxNorm [facility] 12:12:00 50979 Product containin g cephalosp meir (product) medicatio n Not available Not available Not available 04/13/2023 31975 9009 SNOMED [facility] 3 12:12:08 74446 clarithro mycin medicatio n Not available Not available Not available 04/13/2023 61446 RxNorm [facility] 3 12:12:23 76294 hydromorp rosa maria medicatio n Not available Not available Not available 04/13/2023 3423 RxNorm [facility] 3 12:12:35 Medications Name Sig Start Date Stop Date Status Note LastModified by Organization Details LastModified Time celecoxib 200 mg capsule TAKE ONE CAPSULE BY MOUTH DAILY NEEDED 08/16 completed Not Available Not Available Not Available cyclobenzap rine 10 mg tablet TAKE 1 TABLET BY MOUTH TWICE A DAY active Not Available Not Available No t Available prednisone 10 mg tablet TAKE 1 TABLET BY MOUTH EVERY DAY active Not Available Not Available No t Available nitrofurant oin macrocrysta l 50 mg capsule TAKE ONE CAPSULE BY MOUTH AT BEDTIME active Not Available Not Available No t Available atorvastati n 20 mg tablet 03/16 completed Not Available Not Available Not Available ropinirole 1 mg tablet 1 MG ORALLY THREE TIMES A DAY active Not Available Not Available No t Available nabumetone 750 mg tablet TAKE 1 TABLET TWICE A DAY 08/16 completed Not Available Not Available Not Available Klor-Con 10 mEq tablet,exte nded release TAKE 2 TABLETS BY MOUTH ONCE DAILY WITH FOOD 08/16 completed Not Available Not Available Not Available clindamycin HCl 300 mg capsule TAKE 1 CAPSULE BY MOUTH 3 TIMES A DAY FOR 5 DAYS active Not Available Not Available No t Available atorvastati n 10 mg tablet 03/16 completed Not Available Not Available Not Available azithromyci n 250 mg tablet TAKE 2 TABLETS BY MOUTH TODAY, THEN TAKE 1 TABLET DAILY FOR 4 DAYS active Not Available Not Available No t Available ibuprofen 800 mg tablet TAKE 1 TABLET BY MOUTH EVERY 8 HOURS 04/13 completed Not Available Not Available Not Available Cytotec 200 mcg tablet Take 2 tablets by oral route at bedtime for 1 day. 06/22 completed Not Available Not Available Not Available tizanidine 4 mg tablet 08/16 completed Not Available Not Available Not Available metoprolol succinate ER 50 mg tablet,exte nded release 24 hr TAKE 1 TABLET BY MOUTH EVERY DAY active Not Available Not Available No t Available valacyclovi r 1 gram tablet active Not Available Not Available Not Available Lotrisone 1 %-0.05 % topical cream Apply 1 applicati on twice a day by topical route for 3 days. 07/21 completed Not Available Not Available Not Available ranitidine 300 mg tablet 08/16 completed Not Available Not Available Not Available fluticasone propionate 0.05 % topical cream active Not Available Not Available Not Available meperidine 50 mg tablet 08/16 completed Not Available Not Available Not Available promethazin e 25 mg rectal suppository 25 MG RECTALLY EVERY 6 HOURS NEEDED FOR NAUSEA AND VOMITING active Not Available Not Available No t Available ondansetron HCl 8 mg tablet 08/16 completed Not Available Not Available Not Available meloxicam 15 mg tablet TAKE 1 TABLET BY MOUTH EVERY DAY active Not Available Not Available No t Available fluorouraci l 5 % topical cream APPLY TWICE A DAY FOR TWO WEEKS TO NOSE 04/13 completed Not Available Not Available Not Available prednisone 5 mg tablet TAKE 4 TABLETS BY MOUTH WITH BREAKFAST FOR 3 DAYS AND TAPER BY 1 TABLET EVERY 3 DAYS TILL OFF. active Not Available Not Available No t Available methylpredn isolone 4 mg tablet 08/16 completed Not Available Not Available Not Available clindamycin HCl 150 mg capsule 08/16 completed Not Available Not Available Not Available warfarin 2.5 mg tablet TAKE 1 TABLET ORALLY DAILY active Not Available Not Available No t Available diphenoxyla te-atropine 2.5 mg-0.025 mg tablet 1 TABLET ORALLY THREE TIMES A DAY NEEDED FOR DIARRHEA active Not Available Not Available No t Available metronidazo le 500 mg tablet TAKE 1 TABLET BY MOUTH EVERY 8 HOURS FOR 10 DAYS 04/13 completed Not Available Not Available Not Available ciprofloxac in 250 mg tablet 08/16 completed Not Available Not Available Not Available valacyclovi r 500 mg tablet TAKE 1 TABLET BY MOUTH TWICE A DAY FOR 7 DAYS 08/16 completed Not Available Not Available Not Available ciprofloxac in 500 mg tablet TAKE 1 TABLET BY MOUTH TWICE A DAY 04/13 completed Not Available Not Available Not Available sulfamethox azole 800 mg-trimetho prim 160 mg tablet TAKE 1 TABLET BY MOUTH TWICE A DAY active Not Available Not Available No t Available peg-electro lyte solution 420 gram oral solution 08/16 completed Not Available Not Available Not Available omeprazole 40 mg capsule,del ayed release 08/16 completed Not Available Not Available Not Available aspirin 81 mg tablet,angie yed release TAKE 1 TABLET BY MOUTH EVERY MORNING active Not Available Not Available No t Available tramadol 50 mg tablet active Not Available Not Available No t Available triamcinolo ne acetonide 0.1 % topical cream 08/16 completed Not Available Not Available Not Available warfarin 3 mg tablet TAKE 1 TABLET BY MOUTH EVERY DAY active Not Available Not Available No t Available meloxicam 7.5 mg tablet TAKE 1 TABLET BY MOUTH EVERY DAY active Not Available Not Available No t Available methocarbam ol 750 mg tablet TAKE 1 TABLET BY MOUTH EVERY 8 HOURS NEEDED FOR MUSCLE SPASM active Not Available Not Available No t Available methotrexat e sodium 2.5 mg tablet TAKE 6 TABLETS BY MOUTH ONCE WEEKLY IN THE EVENING active Not Available Not Available No t Available ciprofloxac in 0.3 % eye drops PLACE 1-2 DROPS IN EAR TWICE DAILY active Not Available Not Available No t Available sulfacetami de sodium 10 % eye drops PUT 1 DROP INTO AFFECTED EYE(S) EVERY 2-3 HOURS DURING THE DAY AND LESS FREQUENTL Y AT NIGHT 08/16 completed Not Available Not Available Not Available econazole nitrate 1 % topical cream APPLY TOPICALLY TWICE A DAY TO AFFECTED AREA & SURROUNDI NG AREAS OF SKIN 03/16 completed Not Available Not Available Not Available ropinirole 2 mg tablet 08/16 completed Not Available Not Available Not Available pantoprazol e 40 mg tablet,angie yed release TAKE 1 TABLET BY MOUTH EVERY MORNING active Not Available Not Available No t Available triamcinolo ne acetonide 0.1 % topical ointment 08/16 completed Not Available Not Available Not Available ropinirole 0.5 mg tablet TAKE 1 TABLET BY MOUTH 3 TIMES A DAY active Not Available Not Available No t Available nystatin 100,000 unit/gram topical cream APPLY TOPICALLY TWICE A DAY active Not Available Not Available No t Available lidocaine 5 % topical patch APPLY 1-2 PATCHES ONCE DAILY FOR 12 HOURS (MUST HAVE 12 HRS WITHOUT MEDICATIO N BEFORE REAPPLICA TION) 08/16 completed Not Available Not Available Not Available warfarin 5 mg tablet TAKE 1 TABLET BY MOUTH EVERY DAY active Not Available Not Available No t Available metoprolol tartrate 50 mg tablet TAKE 1 TABLET BY MOUTH TWICE A DAY active Not Available Not Available No t Available nitroglycer in 0.4 mg sublingual tablet PLEASE SEE ATTACHED FOR DETAILED DIRECTION S active Not Available Not Available No t Available mupirocin calcium 2 % topical cream APPLY TOPICALLY TWICE A DAY 04/13 completed Not Available Not Available Not Available gabapentin 300 mg capsule TAKE 2 CAPSULES BY MOUTH 4 TIMES A DAY 08/16 completed Not Available Not Available Not Available omeprazole 20 mg capsule,del ayed release TAKE 1 CAPSULE BY MOUTH EVERY DAY active Not Available Not Available No t Available Provera 10 mg tablet Take 1 tablet every day by oral route for 10 days. 06/03 completed Not Available Not Available Not Available folic acid 1 mg tablet TAKE 1 TABLET BY MOUTH EVERY DAY active Not Available Not Available No t Available montelukast 10 mg tablet TAKE 1 TABLET BY MOUTH EVERY DAY active Not Available Not Available No t Available hydroxyzine HCl 25 mg tablet TAKE 1 TABLET BY MOUTH EVERY 8 HOURS NEEDED FOR ITCHING active Not Available Not Available No t Available morphine ER 15 mg tablet,exte nded release TAKE 1 TABLET BY MOUTH TWICE A DAY NEEDED FOR PAIN FOR 5 DAYS active Not Available Not Available No t Available mupirocin 2 % topical ointment APPLY TO AFFECTED AREA TWICE A DAY active Not Available Not Available No t Available digoxin 125 mcg (0.125 mg) tablet TAKE 1 TABLET BY MOUTH DAILY. active Not Available Not Available No t Available diclofenac sodium 50 mg tablet,angie yed release TAKE 1 TABLET BY MOUTH TWICE A DAY active Not Available Not Available No t Available furosemide 20 mg tablet TAKE 1 TABLET BY MOUTH EVERY MORNING active Not Available Not Available No t Available metoprolol succinate ER 25 mg tablet,exte nded release 24 hr TAKE 1 TABLET BY MOUTH EVERY DAY active Not Available Not Available No t Available ergocalcife rol (vitamin D2) 1,250 mcg (50,000 unit) capsule TAKE ONE CAPSULE BY MOUTH ONE TIME PER WEEK 08/16 completed Not Available Not Available Not Available azelastine 137 mcg (0.1 %) nasal spray INSTILL 1 SPRAY INTRANASA LLY EVERY 12 HOURS ADMINISTE R INTO EACH NOSTRIL active Not Available Not Available No t Available warfarin 1 mg tablet TAKE 1 TABLET BY MOUTH EVERY DAY active Not Available Not Available No t Available hydroxychlo roquine 200 mg tablet TAKE 1 TABLET BY MOUTH EVERY DAY active Not Available Not Available No t Available epinephrine 0.3 mg/0.3 mL injection, auto-inject or INJECT 0.3ML INTRAMUSC ULARLY NEEDED FOR ALLERGIC REACTION active Not Available Not Available No t Available levofloxaci n 500 mg tablet TAKE 1 TABLET BY MOUTH DAILY active Not Available Not Available No t Available methylpredn isolone 4 mg tablets in a dose pack TAKE 6 TABLETS ON DAY 1 DIRECTED ON PACKAGE AND DECREASE BY 1 TAB EACH DAY FOR A TOTAL OF 6 DAYS 04/13 completed Not Available Not Available Not Available albuterol sulfate HFA 90 mcg/actuati on aerosol inhaler INHALE 1 PUFF EVERY 4 HOURS NEEDED FOR SHORTNESS OF BREATH OR WHEEZING 04/13 completed Not Available Not Available Not Available celecoxib 100 mg capsule TAKE 1 CAPSULE BY MOUTH TWICE A DAY active Not Available Not Available No t Available ketoconazol e 2 % topical cream APPLY TO AFFECTED AREA TWICE A DAY active Not Available Not Available No t Available colestipol 1 gram tablet TAKE 1 TABLET BY MOUTH EVERY DAY active Not Available Not Available No t Available dicyclomine 10 mg capsule TAKE 1 CAPSULE (10 MG TOTAL) BY MOUTH 4 (FOUR) TIMES A DAY NEEDED (CRAMPING ) active Not Available Not Available No t Available naproxen 500 mg tablet TAKE 1 TABLET BY ORAL ROUTE 2 TIMES EVERY DAY WITH FOOD active Not Available Not Available No t Available mometasone 0.1 % topical cream 08/16 completed Not Available Not Available Not Available diazepam 5 mg tablet TAKE 1 TABLET EVERY 8 HOURS NEEDED FOR PMS 03/16 completed Not Available Not Available Not Available nabumetone 500 mg tablet 08/16 completed Not Available Not Available Not Available hydroxyzine pamoate 25 mg capsule active Not Available Not Available N ot Available enoxaparin 80 mg/0.8 mL subcutaneou s syringe PLEASE SEE ATTACHED FOR DETAILED DIRECTION S active Not Available Not Available No t Available enoxaparin 100 mg/mL subcutaneou s syringe 08/16 completed Not Available Not Available Not Available enoxaparin 40 mg/0.4 mL subcutaneou s syringe INJECT 40 MG (0.4 ML) SUBCUTANE OUSLY EVERY 12 HOURS FOR 7 DAYS 04/13 completed Not Available Not Available Not Available Asprin Ec Low Dose 81 mg tablet,angie yed release Take 1 tablet every day by oral route. 2019 active Not Available Not Available Not Avai lable rosuvastati n 10 mg tablet TAKE 1 TABLET BY MOUTH EVERY DAY active Not Available Not Available No t Available rosuvastati n 20 mg tablet 20 MG ORALLY DAILY active Not Available Not Available No t Available bupropion HCl XL 150 mg 24 hr tablet, extended release TAKE 1 TABLET BY MOUTH IN THE MORNING active Not Available Not Available No t Available metoprolol tartrate 25 mg tablet TAKE 1 TABLET BY MOUTH TWICE A DAY active Not Available Not Available No t Available nitrofurant oin monohydrate /macrocryst als 100 mg capsule TAKE 1 CAPSULE BY MOUTH TWICE A DAY active Not Available Not Available No t Available duloxetine 30 mg capsule,del ayed release TAKE 1 CAPSULE BY MOUTH EVERY DAY AT BEDTIME WITH 60MG TO MAKE TOTAL OF 90MG/DAY active Not Available Not Available No t Available duloxetine 60 mg capsule,del ayed release TAKE 1 CAPSULE BY MOUTH AT BEDTIME active Not Available Not Available No t Available fluocinonid e 0.1 % topical cream 08/16 completed Not Available Not Available Not Available Boostrix Tdap 2.5 Lf unit-8 mcg-5 Lf/0.5 mL intramuscul ar syringe active Not Available Not Available N ot Available metronidazo le 1 % topical gel APPLY TOPICALLY DAILY active Not Available Not Available No t Available pregabalin 50 mg capsule TAKE 1 CAPSULE BY MOUTH TWICE A DAY active Not Available Not Available No t Available sucralfate active Not Available Not Av ailable Not Available mupirocin active Not Available Not Gabby ilable Not Available Celebrex active Not Available Not Avai lable Not Available cholecalcif allie (vitamin D3) 1,250 mcg (50,000 unit) capsule TAKE 1 CAPSULE BY MOUTH WEEKLY active Not Available Not Available No t Available diclofenac 1 % topical gel APPLY 4 GM 4 TIMES A DAY TO SINGLE KNEE, ANKLE, FOOT FOR FOOT INCLUDES SOLE/TOES /TOP OF FOOT active Not Available Not Available No t Available ropinirole ER 4 mg tablet,exte nded release 24 hr 08/16 completed Not Available Not Available Not Available ropinirole ER 2 mg tablet,exte nded release 24 hr 08/16 completed Not Available Not Available Not Available Simponi 50 mg/0.5 mL subcutaneou s pen injector active Not Available Not Available Not Available Gavilyte-C 240 gram-22.72 gram-6.72 gram-5.84 gram oral solution PLEASE SEE ATTACHED FOR DETAILED DIRECTION S active Not Available Not Available No t Available ciprofloxac in 0.2 % ear drops in a dropperette INSTILL 5 DROPS INTO THE AFFECTED EAR EVERY 12 HOURS FOR 7 DAYS active Not Available Not Available No t Available Nucynta 100 mg tablet TAKE 1 TABLET BY MOUTH EVERY 12 HOURS NEEDED 08/16 completed Not Available Not Available Not Available Nucynta 50 mg tablet TAKE 1 TABLET BY MOUTH EVERY 6 HOURS NEEDED FOR PAIN active Not Available Not Available No t Available Nucynta 75 mg tablet active Not Available Not Available No t Available Creon active Not Available Not Availa ble Not Available azelastine 205.5 mcg (0.15 %) nasal spray SPRAY 2 SPRAYS INTO EACH NOSTRIL EVERY DAY active Not Available Not Available No t Available pramipexole ER 0.75 mg tablet,exte nded release 24 hr TAKE 1 TABLET BY MOUTH EVERY DAY active Not Available Not Available No t Available pramipexole ER 0.375 mg tablet,exte nded release 24 hr TAKE 1 TABLET BY MOUTH EVERY DAY active Not Available Not Available No t Available Suprep Bowel Prep Kit 17.5 gram-3.13 gram-1.6 gram oral solution TAKE DIRECTED 04/13 completed Not Available Not Available Not Available buprenorphi ne 5 mcg/hour weekly transdermal patch APPLY 1 PATCH TRANSDERM ALLY EVERY 7 DAYS active Not Available Not Available No t Available Nucynta ER 150 mg tablet,exte nded release TAKE 1 TABLET BY MOUTH EVERY 12 HOURS 08/16 completed Not Available Not Available Not Available Xarelto 15 mg tablet TAKE 1 TABLET BY MOUTH TWICE A DAY FOR 3 WEEKS active Not Available Not Available No t Available Xarelto 20 mg tablet TAKE 1 TABLET BY MOUTH EVERY DAY WITH EVENING MEAL active Not Available Not Available No t Available lidocaine 5 % topical ointment 08/16 completed Not Available Not Available Not Available Eliquis 2.5 mg tablet 08/16 completed Not Available Not Available Not Available Creon 36,000 unit-114,00 0 unit-180,00 0 unit capsule,del ayed release PLEASE SEE ATTACHED FOR DETAILED DIRECTION S active Not Available Not Available No t Available buprenorphi ne 7.5 mcg/hour weekly transdermal patch APPLY 1 PATCH TRANSDERM ALLY EVERY 7 DAYS active Not Available Not Available No t Available buprenorphi ne active Not Available Not Available Not Available Corlanor 5 mg tablet Take 1 tablet twice a day by oral route. 08/24 completed Not Available Not Available Not Available baclofen 5 mg tablet TAKE 1 TABLET BY MOUTH EVERY DAY 04/13 completed Not Available Not Available Not Available [employer]flex COVID-19 Antigen Home Test kit USE DIRECTED active Not Available Not Available No t Available Vitals Date Recorded Body mass index (BMI) Body height Body temperature Body weight Systolic blood pressure Diastolic blood pressure Provider Name and Address Organization Details Last Updated DateTime 1 28.6 kg/m2 172.72 cm 96.5 [degF] 40132.3 7 g 120 mm[Hg] 78 mm[Hg] Not Available [facility] 3 00:52:32 Date Recorded Body height Body mass index (BMI) Body weight Heart rate Respiratory rate Oxygen saturation Oxygen saturation in Arterial blood by Pulse oximetry Systolic blood pressure Diastolic blood pressure Provider Name and Address Organization Details Last Updated DateTime 3 172.72 cm 28.7 kg/m2 28455.9 6 g 82 /min 14 /min 99 % 99 % 128 mm[Hg] 82 mm[Hg] Cherie GOMEZ [employer] [facility] [employer] [facility] 3 12:00:54 Date Recorded Body height Body mass index (BMI) Body weight Heart rate Respiratory rate Oxygen saturation Oxygen saturation in Arterial blood by Pulse oximetry Systolic blood pressure Diastolic blood pressure Provider Name and Address Organization Details Last Updated DateTime 3 172.72 cm 28.7 kg/m2 41973.9 6 g 70 /min 14 /min 98 % 98 % 102 mm[Hg] 66 mm[Hg] Cherie Guan [facility] [employer] [facility] 3 12:31:41 Date Recorded Body height Body mass index (BMI) Body weight Heart rate Respiratory rate Oxygen saturation Oxygen saturation in Arterial blood by Pulse oximetry Systolic blood pressure Diastolic blood pressure Provider Name and Address Organization Details Last Updated DateTime 3 172.72 cm 28.7 kg/m2 03055.9 6 g 73 /min 14 /min 98 % 98 % 112 mm[Hg] 75 mm[Hg] Cherie Guan [place] [employer] [facility] [employer] [facility] 3 09:23:27 Social History Question Answer Notes LastModified by Organizat ion Details LastModified Time Tobacco Smoking Status Never Smoker Not Available [facility] 09/17/2022 00:46:36 What Is Your Level Of Alcohol Consumption? None [id number] Information not available 09/17/2022 What Is Your Level Of Caffeine Consumption? None [id number] Information not available 09/17/2022 In The 14 Days Before Symptom Onset, Have You Had Close Contact With A Laboratory-confirm ed COVID-19 While That Case Was Ill? No [id number] Information not available 09/17/2022 In The 14 Days Before Symptom Onset, Have You Had Close Contact With A Person Who Is Under Investigation For COVID-19 While That Person Was Ill? No [id number] Information not available 09/17/2022 Which Illicit Or Recreational Drugs Have You Used? None [id number] Information not available 09/17/2022 What Was The Date Of Your Most Recent Tobacco Screening? 04/13/2023 Information not available 04/13/2023 Do You Use Any Illicit Or Recreational Drugs? No Information not available 04/13/2023 Has Tobacco Cessation Counseling Been Provided? No Information not available 04/13/2023 Do You Or Have You Ever Used Any Other Forms Of Tobacco Or Nicotine? No Information not available 04/13/2023 Sex: Unknown Functional Status Question Answer Note LastModified by Organizat ion Details LastModified Time What is your exercise level? Occasional [id number] Information not available 09/17/2022 Mental Status None recorded. Family History Relationship Description Onset Age of this Age Resolved Age Notes LastModified by Organization Details LastModified Time Paternal Grandmother Malignant tumor of cervix [id number] Not available 09/17/2022 00:49:12 Medical History Condition Response ALLERGIES/HAYFEVER Y HIGH CHOLESTEROL / HYPERLIPIDEMIA Y BOWEL PROBLEMS Y BACK / NECK PROBLEMS Y FEMALE PROBLEMS / INFECTIONS Y DEPRESSION (INCLUDING POST ) Y USE OF BLOOD THINNERS Y BLOOD CLOTS Y HERPES Y DIZZINESS Y CARDIAC ARRHYTHMIA Y ANXIETY DISORDER Y ANEMIA/BLOOD DISORDER Y Gynecological History Statement/Question Response Abnormal Pap Y Date of LMP Date of Last Pap Smear 08/16/2019 Current Control Method Tubal Ligat ion Age at Menarche 13 Most Recent Mammogram 06/28/2019 Obstetrics History GPAL:G 0 P 0 0 0 0 Past Encounters Encounter ID Performer Location Encounter Start Date Encounter Closed Date Diagnosis/Indication Diagnosis SNOMED-CT Code Diagnosis ICD10 Code Diagnosis Note [id number] _ATHENA_M IGRATION_ DEFAULT_1 _1 , 10/03/2020 00:00:00 10/03/2020 09:44:02 [id number] You Pierce DPM [facility] [place] [address] [place] [address] 04/13/2023 11:53:16 04/14/2023 11:39:07 Plantar wart of left foot [id number] 8396079 B07.0 educated on treatment optionsSal icylic acid applied to the wart todaypatie nt advised to use salicylic acid over-the-c ounter daily until blistering occurs then discontinu e provide wound care to prevent infectionF ollow-up in 1 week [id number] You Pierce DPM [facility] [place] [address] [place] [address] 04/20/2023 12:25:47 04/20/2023 12:47:37 Plantar wart of left foot 6988047254 5770164 B07.0 educated on treatment optionsSal icylic acid 30% applied to the wart todaypatie nt advised to use salicylic acid over-the-c ounter daily until blistering occurs then discontinu e provide wound care to prevent infectionF ollow-up in 1 week [id number] You Pierce DPM [facility] [place] [address] [facility] [address] [place] [address] 04/27/2023 09:10:20 04/27/2023 10:38:12 Plantar wart of left foot 5983296099 7907565 B07.0 Discontinu e salicylic acidallow the area to healfollow -up 2 weeks Blister of foot without infection 6095503 S90.822A secondary to use of salicylic acid for treatment of wartwound debrided to level of dermis move overlying slough and macerated tissuewoun d care reviewed with the patientsig ns and symptoms of infection reviewed with the patient if present seek medical attention immediatel yMinimal weight to the left footkeep area clean and dry with bandages dailyfollo w-up in 2 weeks Health Concerns Section Related Observation LastModified by Organization Detai ls LastModified Time None Recorded Concern Status LastModified by Organization Details LastModified Time None Recorded Advance Directives Directive None Recorded Payers Encounter Date Sequence Insurance Name Policy Number Policy Powers Covered Member ID Powers Member ID Guarantor Name 04/13/2023 1 [place] Naye S Tanner [id number] Naye S Tanner 04/13/2023 2 [place] Naye S Tanner [id number] Naye S Tanner 04/20/2023 1 [place] Naye S Tanner [id number] Naye S Tanner 04/20/2023 2 [place] Naye S Tanner [id number] Naye S Tanner 04/27/2023 1 [place] Naye Cunninghamle [id number] Naye Nassar Tanner 04/27/2023 2 [place] [facility] [place] Naye Hart [id number] Naye Hart Notes Date Note Type Note Provider Name and Address Organization Details Recorded Time 04/13/2023 text/html . Patient is a 57-year-old female who presents to the office with complaints of a wart to the plantar left foot. Patient states is been present for several weeks. Patient denies any treatment for this condition. Patient denies any other complaints. You Pierce DPM [address], [place], [address], [employer] 04/13/2023 14:42:57 04/20/2023 text/html . Patient is a 57-year-old female who returns the office for follow-up on plantar wart of the left foot. Patient states overall it has blistered somewhat. Patient has had some mild discomfort but overall states she has continued normal shoe gear. Patient appears in sandals today. Patient was urged to wear more supportive shoes. Patient denies any fever, chills, nausea vomiting. Patient denies any other complaints. You Pierce DPM [address], [place], [address], [employer] 04/20/2023 12:46:20 04/27/2023 text/html . Patient is a 57-year-old female who returns the office for follow-up on left foot wart. Patient overall is doing very well she did have some minor blistering secondary to use of the salicylic acid but it appears that it has worked well and she was educated on discontinuing the use of the salicylic acid at this point we will continue wound care to facilitate wound healing to prevent infection and she will follow-up in 2 weeks. Patient denies any other complaints. You Pierce DPM [address], [place], [address], [employer] 04/27/2023 10:37:00 OBGyn Episode No OBEpisode recorded.
--- OUTSIDE RECORDS SUMMARY | 2024-09-30 12:28 | XMS_ITS | CONTINUITY OF CARE DOCUMENT ---
Author Name diaz perales Address Unknown Organization [facility] Address [address] [place] [address] Phone [phone] Care Team Providers Care Pile Driver Operator Helper Name Role Phone Tiago BRYANT, Hugo Unavailable MIRELA BRYANT, ANGEL F Unavailable MIRELA BRYANT, ANGEL F Unavailable [phone] PROBLEMS Condition Status Date Provider Notes Dual [...] Hugo Ordoñez MD SVT S/P ablation active Hugo Ordoñez MD CC M Enroll Hyperlipidemia active [...] In-person encounter Office Visit Hugo Ordoñez MD [facility] Office - In-person encounter Office Visit Hugo Ordoñez MD [facility] - In-person encounter Office Visit Hugo Ordoñez MD [facility] - In-person encounter Office Visit Trent Pike MD [facility] - In-person encounter Office Visit Hugo Ordoñez MD [facility] - In-person encounter Office Visit Hugo Ordoñez MD [facility] - In-person encounter Office Visit Morgan Roy MD [facility] Atrial Fibrillation s/p AMULETGroin pain, right - In-person encounter Office Visit Hugo Ordoñez MD [facility] Office - In-person encounter Office Visit Hugo Ordoñez MD [facility] - In-person encounter Office Visit Hugo Ordoñez MD [facility] - In-person encounter Office Visit Hugo Ordoñez MD [facility] Office - In-person encounter Office Visit Hugo Ordoñez MD [facility] - In-person encounter Office Visit Hugo Ordoñez MD [facility] - In-person encounter Office Visit Morgan Roy MD [facility] - In-person encounter Office Visit Hugo Ordoñez MD [facility] Ischemia, transient cerebral NOS - In-person encounter Office Visit Hugo Ordoñez MD [facility] - In-person encounter Office Visit Hugo Ordoñez MD [facility] - In-person encounter Office Visit Hugo Ordoñez MD [facility] Office - In-person encounter Office Visit Hugo Ordoñez MD [facility] - In-person encounter Office Visit Hugo Ordoñez MD [facility] - In-person encounter Office Visit Hugo Ordoñez MD [facility] Office - In-person encounter Office Visit Hugo Ordoñez MD [facility] COVID-19 asymptomatic, no exposure, testing results unknown or negative screening - In-person encounter Office Visit Hugo Ordoñez MD [facility] - In-person encounter Office Visit Hugo Ordoñez MD [facility] Office - In-person encounter Office Visit Hugo Ordoñez MD [facility] - In-person encounter Office Visit Hugo Ordoñez MD [facility] - In-person encounter Office Visit Giorgio Catalan MD [facility] Office - In-person encounter Office Visit Hugo Ordoñez MD [facility] Office - In-person encounter Office Visit Hugo Ordoñez MD [facility] - In-person encounter Office Visit Hugo Ordoñez MD [facility] - In-person encounter Office Visit Jean Claude Calixto DO [facility] - In-person encounter Office Visit Hugo Ordoñez MD [facility] - In-person encounter Office Visit Jean Claude Calixto [facility] Office - In-person encounter Office Visit Jean Claude Faulkner DO [facility] - In-person encounter Office Visit Hugo Ordoñez MD [facility] - In-person encounter Office Visit Tab Taylor MD [facility] - In-person encounter Office Visit Hugo Ordoñez MD [facility] Office - In-person encounter Office Visit Hugo Ordoñez MD [facility] - In-person encounter Office Visit Tab Taylor MD [facility] - In-person encounter Office Visit Tab Taylor MD [facility] - In-person encounter Office Visit Tab Taylor MD [facility] - In-person encounter Office Visit Tab Taylor MD [facility] Office - In-person encounter Office Visit Hugo Ordoñez MD [facility] - In-person encounter Office Visit Tab Taylor MD [facility] - In-person encounter Office Visit Hugo Ordoñez MD [facility] - In-person encounter Office Visit Tab Taylor MD [facility] Sinus node dysfunction - In-person encounter Office Visit Huog Ordoñez MD [facility] Office - In-person encounter Office Visit Tab Taylor MD [facility] - In-person encounter Office Visit Hugo Ordoñez MD [facility] - In-person encounter Office Visit Tab Taylor MD [facility] - In-person encounter Office Visit Tab Taylor MD [facility] Presence of implantable loop recorder - In-person encounter Office Visit Tab Taylor MD [facility] Atrial Fibrillation s/p AMULET - In-person encounter Office Visit Hugo Ordoñez MD [facility] Hyperlipidemia - In-person encounter Office Visit Hugo Ordoñez MD [facility] Office - In-person encounter Office Visit Hugo Ordoñez MD [facility] Office - In-person encounter Office Visit Tab Taylor MD [facility] - In-person encounter Office Visit Tab Taylor MD [facility] Office SVT S/P ablation - In-person encounter Office Visit Tab Taylor MD [facility] - In-person encounter Office Visit Hugo Ordoñez MD [facility] - In-person encounter Office Visit Hugo Ordoñez MD [facility] - In-person encounter Office Visit Hugo Ordoñez MD [facility] Office Diastolic heart fail ure, chronic - In-person encounter Office Visit Hugo Ordoñez MD [facility] Shortness of breathEdema - localized - In-person encounter Office Visit Rodo Berg MD [facility] - In-person encounter Office Visit Rodo Berg MD [facility] - In-person encounter Office Visit Hugo Ordoñez MD [facility] - In-person encounter Office Visit Rodo Berg MD [facility] Office Inappropriate sinus tachycardia - In-person encounter Office Visit Rodo Berg MD [facility] - In-person encounter Office Visit Rodo Berg MD [facility] - In-person encounter Office Visit Hugo Ordoñez MD [facility] - In-person encounter Office Visit Hugo Ordoñez MD [facility] - In-person encounter Office Visit Genaro Jane MD [facility] - In-person encounter Office Visit Hugo Ordoñez MD [facility] - In-person encounter Office Visit Hugo Ordoñez MD [facility] Venous thrombosis - In-person encounter Office Visit Hugo Ordoñez MD [facility] - In-person encounter Office Visit Hugo Ordoñez MD [facility] Palpitations - In-person encounter Office Visit Hugo Ordoñez MD [facility] - In-person encounter Office Visit Hugo Ordoñez MD [facility] - In-person encounter Office Visit Hugo Ordoñez MD [facility] - In-person encounter Office Visit Hugo Ordoñez MD [facility] - In-person encounter Office Visit Hugo Ordoñez MD [facility] - In-person encounter Office Visit Hugo Ordoñez MD [facility] - In-person encounter Office Visit Hugo Ordoñez MD [facility] - In-person encounter Office Visit Hugo Ordoñez MD [facility] - In-person encounter Office Visit Hugo Ordoñez MD [facility] - In-person encounter Office Visit Hugo Ordoñez MD [facility] REFLEX SYMPATHETIC DYSTROPHY OF THE LOWER LIMBHypotensionSYNCOPE VITAL SIGNS Date Observation Value Provider Body Mass Index (Ratio) 29.81 kg/m2 Bruce Ordoñez MD pulse rate 73 /min Minal castaneda oxygen saturation, oximetry 99 % Minal Romero blood pressure, diastolic 91 mm[Hg] Ti jurgen Romero blood pressure, systolic 115 mm[Hg] Chalino Romero blood pressure, cuff size regular Ti jurgen Romero weight E&M 199 [lb_av] Minal Swan s height E&M 68.5 [in_i] Minal castaneda Body Mass Index (Ratio) 29.13 kg/m2 Bruce [...] Porfirio blood pressure, cuff size regular Ke nataliei Heidi blood pressure, diastolic 80 mm[Hg] Ke rri Heidi blood pressure, systolic 126 mm[Hg] Kera Gordon oxygen saturation, oximetry 97 % Kendra Gordon pulse rate 77 /min Kendra Rere [facility] weight E&M 196 [lb_av] Kendra Rere [facility] height E&M 68.5 [in_i] Kendra Rere [facility] Body Mass Index (Ratio) 29.51 kg/m2 Madison Pike MD blood pressure, diastolic 60 mm[Hg] Li nkLogic blood pressure, systolic 100 mm[Hg] Amee kLogic oxygen saturation, oximetry 98 % Kendra Grjono pulse rate 70 /min Kendra Grkelsienfe er blood pressure, diastolic 60 mm[Hg] Ke rri Gruenenfelder blood pressure, systolic 100 mm[Hg] Ker ri Gruenefreddy weight E&M 197 [lb_av] Kendra Gruenenfjose armando [facility] height E&M 68.5 [in_i] Kendra Gruenenfe er Body Mass Index (Ratio) 29.37 kg/m2 Bruce Ordoñez MD blood pressure, cuff size regular Ke rri Gruenenfelder blood pressure, diastolic 70 mm[Hg] Ke rri Gruenenfelder blood pressure, systolic 130 mm[Hg] Ker ri Rashiduenefreddy oxygen saturation, oximetry 96 % Kendra Lulufeliciaer respiratory rate E&M 12 /min Kendra G gretchenenefreddy pulse rate 91 /min Kendra Rere [facility] weight E&M 196 [lb_av] Kendra Gruenenfe er height E&M 68.5 [in_i] Kendra Gruenenfe [facility] Body Mass Index (Ratio) 28.77 kg/m2 Bruce Ordoñez MD blood pressure, cuff size regular Syed Faulkner blood pressure, diastolic 88 mm[Hg] Ta pat Faulkner blood pressure, systolic 128 mm[Hg] Tab ithmaxime Faulkner oxygen saturation, oximetry 99 % Padmajamaxime Faulkner pulse rate 92 /min Padmaja Faulkner weight E&M 192 [lb_av] Padmaja Faulkner respiratory rate E&M 12 /min Padmaja Faulkner height E&M 68.5 [in_i] Padmaja Faulkner pulse rate 70 /min Linda Lopes blood pressure, diastolic 75 mm[Hg] As elizabeth Lopes blood pressure, systolic 109 mm[Hg] Vince Lopes Body Mass Index (Ratio) 29.81 kg/m2 Payt on Carmenza blood pressure, cuff size regular Syed Faulkner blood pressure, diastolic 80 mm[Hg] Syed stewart Faulkner blood pressure, systolic 118 mm[Hg] Denis Faulkner oxygen saturation, oximetry 96 % Padmaja Faulkner respiratory rate E&M 12 /min Padmaja Faulkner pulse rate 70 /min Padmaja Faulkner weight E&M 199 [lb_av] Padmaja Faulkner height E&M 68.5 [in_i] Padmaja Faulkner Body Mass Index (Ratio) 30.26 kg/m2 Bruce Ordoñez MD blood pressure, cuff size regular Ke rri Gruenenfeldnahun blood pressure, diastolic 80 mm[Hg] Ke rri Gruenenfelder blood pressure, systolic 132 mm[Hg] Ker ri Gruenenffeliciaer oxygen saturation, oximetry 96 % Kendra Rashiduenenffreddie respiratory rate E&M 12 /min Kendra G gretchenenefreddy pulse rate 87 /min Kendra Gruenenfe lder weight E&M 202 [lb_av] Kendra Gruenenfe sunshineer height E&M 68.5 [in_i] Kendra Gruenenfe lder Body Mass Index (Ratio) 29.66 kg/m2 Bruce Ordoñez MD blood pressure, cuff size regular Ke rri Gruenenfelder blood pressure, diastolic 86 mm[Hg] Ke rri Gruenenfelder blood pressure, systolic 130 mm[Hg] Kera ri Gruenenfelder oxygen saturation, oximetry 98 % Kendra Gruenenfelder respiratory rate E&M 12 /min Kendra G ruenenfelder pulse rate 74 /min Kendra Gruenenfe er weight E&M 198 [lb_av] Kendra Gruenenfe [facility] height E&M 68.5 [in_i] Kendra Gruenenfe [facility] Body Mass Index (Ratio) 29.37 kg/m2 Rishabh farias Eladia blood pressure, cuff size regular Ke rri Gruenenfelder blood pressure, diastolic 90 mm[Hg] Ke rri Gruenenfelder blood pressure, systolic 140 mm[Hg] Kera ri Gruenenfelder pulse rate 108 /min Kendra Gruenenfe er oxygen saturation, oximetry 97 % Kendra Conradonesallieeldnahun respiratory rate E&M 12 /min Kendra G gretchenenenfelder weight E&M 196 [lb_av] Kendra Gruenenfe er height E&M 68.5 [in_i] Kendra Gruenenfe [facility] Body Mass Index (Ratio) 29.37 kg/m2 Bruce Ordoñez MD blood pressure, diastolic 81 mm[Hg] An ya Dennis blood pressure, systolic 115 mm[Hg] Any a Dennis pulse rate 70 /min Brenda Dennis oxygen saturation, oximetry 98 % Brendamaxime Collins weight E&M 196 [lb_av] Brenda Dennis blood pressure, cuff size large An gem Collins height E&M 68.5 [in_i] Brendamaxime Collins Body Mass Index (Ratio) 29.81 kg/m2 Bruce Ordoñez MD blood pressure, cuff size regular Ke rri Heidi blood pressure, diastolic 82 mm[Hg] Ke rri Heidi blood pressure, systolic 142 mm[Hg] Kera tim Gordon oxygen saturation, oximetry 97 % Kendra Heidi respiratory rate E&M 12 /min Kendra Cally [facility] pulse rate 79 /min Kendra Rere [facility] weight E&M 199 [lb_av] Kendra Rere [facility] height E&M 68.5 [in_i] Kendra Rere [facility] Body Mass Index (Ratio) 29.07 kg/m2 Kam Roy MD blood pressure, diastolic 89 mm[Hg] An gem Collins blood pressure, systolic 122 mm[Hg] Any maxime Collins blood pressure, cuff size large An gem Collins pulse rate 71 /min Brendamaxime Collins oxygen saturation, oximetry 92 % Brendamaxime Collins weight E&M 194 [lb_av] Brenda Dennis height E&M 68.5 [in_i] Brendamaxime Collins Body Mass Index (Ratio) 29.22 kg/m2 Bruce Ordoñez MD blood pressure, diastolic 87 mm[Hg] An gem Collins blood pressure, systolic 125 mm[Hg] Any maxime Collins pulse rate 79 /min Brenda Dennis blood pressure, cuff size large An gem Collins oxygen saturation, oximetry 98 % Brenda Dennis weight E&M 195 [lb_av] Brenad Dennis height E&M 68.5 [in_i] Brenda Dennis Body Mass Index (Ratio) 28.92 kg/m2 Bruce Ordoñez MD blood pressure, cuff size regular Ke rri Heidi blood pressure, diastolic 80 mm[Hg] Ke rri Heidi blood pressure, systolic 126 mm[Hg] Kera tim Gordon oxygen saturation, oximetry 98 % Kendra Heidi respiratory rate E&M 12 /min Kendra navarro pulse rate 75 /min Kendra Rere [facility] weight E&M 193 [lb_av] Kendra Rere [facility] height E&M 68.5 [in_i] Kendra Rere [facility] Body Mass Index (Ratio) 29.51 kg/m2 Bruce Ordoñez MD blood pressure, diastolic 97 mm[Hg] Madeline nkLog blood pressure, systolic 136 mm[Hg] Amee kLog weight E&M 197 [lb_av] Brenda Dennis blood pressure, diastolic 97 mm[Hg] Isis gem Collins blood pressure, systolic 136 mm[Hg] Any a Dennis oxygen saturation, oximetry 97 % Brenda Dennis pulse rate 70 /min Brenda Dennis height E&M 68.5 [in_i] Brenda Dennis blood pressure, cuff size large An gem Collins Body Mass Index (Ratio) 28.47 kg/m2 Bruce Ordoñez MD blood pressure, cuff size large Ke rri Heidi blood pressure, diastolic 80 mm[Hg] Ke rri Gruenenfelder blood pressure, systolic 110 mm[Hg] Ker ri Gruenenfelder oxygen saturation, oximetry 98 % Kendra Gruenenfelder respiratory rate E&M 16 /min Kendra G ruenenfelder pulse rate 81 /min Kendra Gruenenfe lder weight E&M 190 [lb_av] Kendra Gruenenfe lder height E&M 68.5 [in_i] Kendra Gruenenfe lder Body Mass Index (Ratio) 28.47 kg/m2 Bruce [...] blood pressure, cuff size large Ke rri Gruenenfelder blood pressure, diastolic 84 mm[Hg] Ke rri Gruenenfelder blood pressure, systolic 126 mm[Hg] Ker ri Gruenenfelder oxygen saturation, oximetry 99 % Kendra Gruenenfelder respiratory rate E&M 14 /min Kendra G gretchenenenfelder pulse rate 82 /min Kendra Grledanenfe lder weight E&M 192 [lb_av] Kendra Gruenenfe [facility] height E&M 68.5 [in_i] Kendra Jernigan [facility] Body Mass Index (Ratio) 28.77 kg/m2 Bruce Ordoñez MD blood pressure, diastolic 75 mm[Hg] Joanie Santamaria blood pressure, systolic 117 mm[Hg] Sujatha Santamaria oxygen saturation, oximetry 98 % Rachel Santamaria respiratory rate E&M 20 /min Deepthi Santamaria pulse rate 86 /min Rachel norton weight E&M 192 [lb_av] Rachel norton blood pressure, cuff size regular Joanie Santamaria height E&M 68.5 [in_i] Rachel norton Body Mass Index (Ratio) 27.57 kg/m2 Bruce Ordoñez MD blood pressure, diastolic 97 mm[Hg] Ca therine Travis blood pressure, systolic 138 mm[Hg] Cat herine Travis oxygen saturation, oximetry 97 % Corinne [place] respiratory rate E&M 16 /min Catheri ne Travis pulse rate 76 /min Corinne Travis weight E&M 184 [lb_av] Corinne Travis blood pressure, cuff size regular Ca therine [place] height E&M 68.5 [in_i] Corinne [place] Body Mass Index (Ratio) 27.27 kg/m2 Bruce Ordoñez MD blood pressure, diastolic 95 mm[Hg] Madeline nkLogic blood pressure, systolic 133 mm[Hg] Amee kLogic blood pressure, diastolic 95 mm[Hg] Ca therine Travis blood pressure, systolic 133 mm[Hg] Cat herine Travis oxygen saturation, oximetry 98 % Corinne Travis respiratory rate E&M 18 /min Catheri ne [place] pulse rate 92 /min Corinne Travis weight E&M 182 [lb_av] Corinne Travis blood pressure, cuff size regular Ca therine [place] height E&M 68.5 [in_i] Corinne Travis Body Mass Index (Ratio) 28.32 kg/m2 Bruce Ordoñez MD blood pressure, diastolic 70 mm[Hg] Madeline nkLogic blood pressure, systolic 110 mm[Hg] Amee kLogic blood pressure, cuff size regular Sa ra Jc blood pressure, diastolic 70 mm[Hg] Sa ra Jc blood pressure, systolic 110 mm[Hg] Eldia a Jc oxygen saturation, oximetry 98 % Janelle Jc respiratory rate E&M 19 /min Janelle Si ms pulse rate 69 /min Janelle Jc weight E&M 189 [lb_av] Janelle Jc height E&M 68.5 [in_i] Janelle Jc blood pressure, cuff size regular Pa ris Humbird blood pressure, diastolic 74 mm[Hg] Pa ris [place] blood pressure, systolic 136 mm[Hg] Par is [place] oxygen saturation, oximetry 98 % Sophia Humbird respiratory rate E&M 18 /min Sophia H neda pulse rate 74 /min Sophia Humbird height E&M 68.5 [in_i] Sophia Humbird Body Mass Index (Ratio) 28.35 kg/m2 Sund brad Catalan MD blood pressure, cuff size regular Frank Sibley blood pressure, diastolic 80 mm[Hg] Tr jennifer Sibley blood pressure, systolic 120 mm[Hg] Try grecia Sibley oxygen saturation, oximetry 98 % Melanie Sibley respiratory rate E&M 16 /min Melanie Sibley pulse rate 60 /min Melanie Sibley weight E&M 189.2 [lb_av] Melanie Garg s height E&M 68.5 [in_i] Melanie Sibley blood pressure, diastolic 102 mm[Hg] Li nkLogic blood pressure, systolic 125 mm[Hg] Amee kLogic blood pressure, cuff size regular Ca therine Travis blood pressure, diastolic 102 mm[Hg] Ca therine Travis blood pressure, systolic 125 mm[Hg] Cat herine Travis oxygen saturation, oximetry 96 % Corinne [place] respiratory rate E&M 14 /min Catheri ne [place] pulse rate 92 /min Corinne [place] height E&M 68.5 [in_i] Corinne [place] Body Mass Index (Ratio) 29.07 kg/m2 Bruce Ordoñez MD blood pressure, diastolic 90 mm[Hg] Madeline nkLogic blood pressure, systolic 136 mm[Hg] Amee kLogic blood pressure, diastolic 90 mm[Hg] Mi juan [facility] blood pressure, systolic 136 mm[Hg] Cayden helle [facility] oxygen saturation, oximetry 98 % Denise French respiratory rate E&M 18 /min Kimberly Yusufy pulse rate 67 /min Denise French weight E&M 194 [lb_av] Denise French height E&M 68.5 [in_i] Denise Manolo Body Mass Index (Ratio) 28.77 kg/m2 Bruce Ordoñez MD blood pressure, diastolic 80 mm[Hg] Li nkLogic blood pressure, systolic 118 mm[Hg] Amee kLogic blood pressure, cuff size regular Bradford Castilloby pulse rate 65 /min [facility] [place] blood pressure, diastolic 80 mm[Hg] Bradford coulter [place] blood pressure, systolic 118 mm[Hg] Aguila Castilloby oxygen saturation, oximetry 97 % Va Castilloby respiratory rate E&M 19 /min [facility] [place] weight E&M 192 [lb_av] Va Castilloby height E&M 68.5 [in_i] [facility] [place] Body Mass Index (Ratio) 28.62 kg/m2 Phillipkalani tom Faulkner DO blood pressure, cuff size large Ke rri Gruenenffleiciaer blood pressure, diastolic 72 mm[Hg] Ke rri Gruenenfelder blood pressure, systolic 110 mm[Hg] Kera Gordon oxygen saturation, oximetry 98 % Kendra Gordon respiratory rate E&M 16 /min Kendra navarro pulse rate 75 /min Kendra Jernigan lder weight E&M 191 [lb_av] Kendra Conradonekatie lder height E&M 68.5 [in_i] Kendra Rere lder Body Mass Index (Ratio) 28.92 kg/m2 Bruce [...] Nelson Body Mass Index (Ratio) 28.62 kg/m2 Rios Nicholsoncock DO blood pressure, diastolic 72 mm[Hg] Mi juan [facility] blood pressure, systolic 130 mm[Hg] Cayden helanya [facility] blood pressure, resting No Román dent [facility] oxygen saturation, oximetry 98 % Denise [facility] respiratory rate E&M 18 /min Kimberly suárez [facility] pulse rate 67 /min Denise [facility] weight E&M 191 [lb_av] Denise [facility] height E&M 68.5 [in_i] Denise [facility] Body Mass Index (Ratio) 27.57 kg/m2 JT S treepy blood pressure, diastolic 60 mm[Hg] Ma rsha O'Aly blood pressure, systolic 110 mm[Hg] Mar royer O'Aly oxygen saturation, oximetry 95 % Lara O'Aly respiratory rate E&M 16 /min Lara O'Aly pulse rate 81 /min Lara O'Aly weight E&M 184 [lb_av] Lara O'Aly height E&M 68.5 [in_i] Lara O'Aly Body Mass Index (Ratio) 28.02 kg/m2 Bruce Ordoñez MD blood pressure, diastolic 74 mm[Hg] Saul Franco blood pressure, systolic 116 mm[Hg] Anahy Franco oxygen saturation, oximetry 95 % Joslyn Franco pulse rate 86 /min Joslyn ponce respiratory rate E&M 16 /min Joslyn Franco blood pressure, cuff size regular Cy jasper Franco weight E&M 187 [lb_av] Joslyn ponce height E&M 68.5 [in_i] Joslyn ponce Body Mass Index (Ratio) 27.72 kg/m2 Emanuel nico Lambros blood pressure, diastolic 109 mm[Hg] Fe clemente Nelson blood pressure, systolic 138 mm[Hg] Fel icia Nelson oxygen saturation, oximetry 95 % Mary Nelson respiratory rate E&M 16 /min Mary Nelson pulse rate 95 /min Mary Nelson weight E&M 185 [lb_av] Mary Nelson height E&M 68.5 [in_i] Mary Nelson Body Mass Index (Ratio) 27.57 kg/m2 Bruce Ordoñez MD oxygen saturation, oximetry 97 % Sania Block pulse rate 104 /min Sania Block blood pressure, diastolic 86 mm[Hg] Br ittany Block blood pressure, systolic 122 mm[Hg] Jessica ttany Block weight E&M 184 [lb_av] Sania Block respiratory rate E&M 16 /min Brittan y Block height E&M 68.5 [in_i] Sania Block Body Mass Index (Ratio) 27.72 kg/m2 Bruce Ordoñez MD oxygen saturation, oximetry 98 % Sania Block pulse rate 91 /min Sania Block blood pressure, diastolic 80 mm[Hg] Br ittany Block blood pressure, systolic 112 mm[Hg] Jessica ttany Block weight E&M 185 [lb_av] Sania Block respiratory rate E&M 16 /min Papo Warren height E&M 68.5 [in_i] Sania Warren Body Mass Index (Ratio) 27.72 kg/m2 Emanuel Heller blood pressure, cuff size regular Bradford coulter Chris pulse rate 89 /min Va Chris oxygen saturation, oximetry 99 % [facility] [place] blood pressure, diastolic 70 mm[Hg] Bradford isty [place] blood pressure, systolic 122 mm[Hg] Bradfordi estuardo Chris respiratory rate E&M 19 /min Va Chris weight E&M 185 [lb_av] [facility] [place] height E&M 68.5 [in_i] [facility] [place] Body Mass Index (Ratio) 26.82 kg/m2 Grisel Levy temperature site temporal Tonsha Hensley temperature E&M [...] Body Mass Index (Ratio) 27.27 kg/m2 Bruce Ordoeñz MD blood pressure, diastolic 72 mm[Hg] To nsha Hensley blood pressure, systolic 139 mm[Hg] Ton sha Hensley oxygen saturation, oximetry 98 % Tonsha Hensley respiratory rate E&M 16 /min Tonsha Hensley pulse rate 84 /min Tonsha Hensley temperature site temporal Tonsha Hensley temperature E&M 96.4 [degF] Tonsha Hensley weight E&M 182 [lb_av] Tonsha Hensley height E&M 68.5 [in_i] Tons Hensley Body Mass Index (Ratio) 27.12 kg/m2 Jord en Cam blood pressure, diastolic 88 mm[Hg] Br ittany Block blood pressure, systolic 130 mm[Hg] Jessica ttany Block pulse rate 94 /min Sania Block oxygen saturation, oximetry 97 % Sania Block weight E&M 181 [lb_av] Sania Block respiratory rate E&M 16 /min Brittan Block height E&M 68.5 [in_i] Yenifer Rocha Body Mass Index (Ratio) 27.72 kg/m2 Bruce Ordoñez MD respiratory rate E&M 16 /min [facility] Hensley blood pressure, diastolic 97 mm[Hg] To nsha Hensley blood pressure, systolic 145 mm[Hg] Ton [facility] oxygen saturation, oximetry 98 % Tons Hensley pulse rate 94 /min [facility] Hensley weight E&M 185 [lb_av] Tons Hensley height E&M 68.5 [in_i] [facility] Hensley Body Mass Index (Ratio) 27.87 kg/m2 Emanuel Heller blood pressure, diastolic 96 mm[Hg] Er ica Michael blood pressure, systolic 140 mm[Hg] Mireya jeff Rodriguez oxygen saturation, oximetry 98 % Velma Rodriguez pulse rate 84 /min Velma Rowland weight E&M 186 [lb_av] Velma Rowland height E&M 68.5 [in_i] Velma Rowland Body Mass Index (Ratio) 27.72 kg/m2 Bruce Ordoñez MD oxygen saturation, oximetry 99 % Chastity Jaime pulse rate 88 /min Chastity Jaime blood pressure, diastolic 84 mm[Hg] Ch astity Jaime blood pressure, systolic 130 mm[Hg] Gisele stity Jaime respiratory rate E&M 16 /min Giselestit y Jaime weight E&M 185 [lb_av] Chastity Jaime height E&M 68.5 [in_i] Chastity Jaime Body Mass Index (Ratio) 28.17 kg/m2 Jord en Cam blood pressure, diastolic 90 mm[Hg] Er ica Edmond-Kashif blood pressure, systolic 126 mm[Hg] Mireya jeff Pruitt-Kashif oxygen saturation, oximetry 98 % Velma Edmond-Kashif pulse rate 80 /min Velma Edmond- Kashif weight E&M 188 [lb_av] Velma Pruitt- Kashif height E&M 68.5 [in_i] Velma Pruitt- Kashif Body Mass Index (Ratio) 28.02 kg/m2 Bruce Ordoñez MD blood pressure, cuff size regular Cy ntemilee Franco blood pressure, diastolic 80 mm[Hg] Cy jasper Franco blood pressure, systolic 108 mm[Hg] Anahy gustavo Franco oxygen saturation, oximetry 96 % Joslyn Franco respiratory rate E&M 16 /min Joslyn Franco pulse rate 100 /min Joslyn Andreabel l weight E&M 187 [lb_av] Joslyn Campbel l height E&M 68.5 [in_i] Joslyn Campbel l Body Mass Index (Ratio) 28.02 kg/m2 Jord en Cam blood pressure, diastolic 80 mm[Hg] Br ittany Block blood pressure, systolic 130 mm[Hg] Jessica ttany Block pulse rate 111 /min Sania Block oxygen saturation, oximetry 97 % Sania Block weight E&M 187 [lb_av] Sania Block respiratory rate E&M 16 /min [facility] height E&M 68.5 [in_i] Sania Block Body Mass Index (Ratio) 28.92 kg/m2 Jord en Cam pulse rate 96 /min Sania Block blood pressure, diastolic 84 mm[Hg] Br ittany Block blood pressure, systolic 140 mm[Hg] Jessica tony Block oxygen saturation, oximetry 98 % [facility] weight E&M 193 [lb_av] Sania [facility] respiratory rate E&M 16 /min [facility] topete Block height E&M 68.5 [in_i] [facility] Body Mass Index (Ratio) 27.87 kg/m2 Jord en Cam blood pressure, diastolic 84 mm[Hg] Er tony Michael blood pressure, systolic 120 mm[Hg] Mireya jeff Rodriguez oxygen saturation, oximetry 98 % Velma Rodriguez pulse rate 80 /min Velma Rowland weight E&M 186 [lb_av] Velma Rowland height E&M 68.5 [in_i] [...] Glover l weight E&M 185 [lb_av] Joslyn Andreabel l height E&M 68.5 [in_i] Joslyn Glover l Body Mass Index (Ratio) 27.87 kg/m2 Bruce Ordoñez MD pulse rate 107 /min Sania Block blood pressure, diastolic 90 mm[Hg] Br ittany Block blood pressure, systolic 124 mm[Hg] Jessica ttany Block oxygen saturation, oximetry 97 % Sania Block weight E&M 186 [lb_av] Sania Block respiratory rate E&M 16 /min Berenicetan Block height E&M 68.5 [in_i] [facility] Body Mass Index (Ratio) 30.86 kg/m2 Bruce Ordoñez MD oxygen saturation, oximetry 95 % Chastity Jaime blood pressure, diastolic 98 mm[Hg] Ch astity Jaime blood pressure, systolic 142 mm[Hg] Gisele stity Jaime pulse rate 93 /min Chastity Jaime respiratory rate E&M 16 /min Chastit y Jaime weight E&M 206 [lb_av] Chastity Jaime height E&M 68.5 [in_i] Chastity Jaime blood pressure, cuff size large Cr ysanika Collins blood pressure, diastolic 90 mm[Hg] Cr ystal Dennis blood pressure, systolic 130 mm[Hg] Cry stal Dennis oxygen saturation, oximetry 98 % Ghazala Collins respiratory rate E&M 17 /min Ghazala Collins pulse rate 92 /min Ghazala castaneda height E&M 68.5 [in_i] Velma Rowland Body Mass Index (Ratio) 33.11 kg/m2 Cam Plurad blood pressure, diastolic 70 mm[Hg] Linda leal O'Aly blood pressure, systolic 122 mm[Hg] Gricelda TellezAly respiratory rate E&M 16 /min Lara OAly oxygen saturation, oximetry 99 % Lara OAly pulse rate 90 /min Lara OAly weight E&M 221 [lb_av] Lara Aly height E&M 68.5 [in_i] Lara [facility] Body Mass Index (Ratio) 34.16 kg/m2 Sammy Rock blood pressure, cuff size large Ke rri [facility] blood pressure, diastolic 86 mm[Hg] Rusty rri [facility] blood pressure, systolic 148 mm[Hg] Kera tim [facility] oxygen saturation, oximetry 98 % Kendra Gordon respiratory rate E&M 20 /min Kendra navarro pulse rate 76 /min Kendratim Jernigan [facility] weight E&M 228 [lb_av] Kendra Lulujose armando er height E&M 68.5 [in_i] Kendra Conradokodakjose armando [facility] Body Mass Index (Ratio) 34.01 kg/m2 Bruce Ordoñez MD blood pressure, diastolic 80 mm[Hg] Chance asttamir Jaime blood pressure, systolic 120 mm[Hg] Gisele stity Jaime oxygen saturation, oximetry 97 % Chastity Jaime pulse rate 73 /min Chastity Jaime respiratory rate E&M 16 /min Chastit y Jaime weight E&M 227 [lb_av] Chastity Jaime height E&M 68.5 [in_i] Chastity Jaime Body Mass Index (Ratio) 33.71 kg/m2 Bruce Ordoñez MD blood pressure, diastolic 80 mm[Hg] Bradford Perez blood pressure, systolic 120 mm[Hg] Aguila Castilloby respiratory rate E&M 16 /min Va Castilloby oxygen saturation, oximetry 94 % Va Castilloby pulse rate 78 /min Va Castilloby blood pressure, cuff size regular Bradford Castillo weight E&M 225 [lb_av] Va Castillo height E&M 68.5 [in_i] Va Castillo blood pressure, diastolic 94 mm[Hg] Cordell su Emma blood pressure, systolic 132 mm[Hg] Jim sierra [facility] oxygen saturation, oximetry 97 % Nataly [facility] respiratory rate E&M 15 /min Nataly [facility] pulse rate 71 /min [facility] 68.5 [in_i] [facility] Body Mass Index (Ratio) 32.60 kg/m2 Bruce Ordoñez MD blood pressure, cuff size regular Te jv Floydhley blood pressure, diastolic 78 mm[Hg] Te jv Marguerite blood pressure, systolic 126 mm[Hg] Jose mame Marguerite oxygen saturation, oximetry 97 % Elana Everett respiratory rate E&M 18 /min Elana Marguerite pulse rate 102 /min Elana Marguerite weight E&M 217.6 [lb_av] Elana Peguero y Body Mass Index (Ratio) 32.21 kg/m2 Kiran Berg MD weight E&M 215 [lb_av] Deneen Wesbtrook blood pressure, cuff size regular Syed [place] pulse rate 74 /min Deneen Westbrook oxygen saturation, oximetry 95 % Deneen [place] respiratory rate E&M 18 /min Deneen [place] blood pressure, diastolic 90 mm[Hg] Syed jones Dariana blood pressure, systolic 115 mm[Hg] Ayaz jimenez [place] height E&M 68.5 [in_i] Deneen Westbrook Body Mass Index (Ratio) 32.69 kg/m2 Kiran Berg MD blood pressure, cuff size regular Te jv Floydhley blood pressure, diastolic 94 mm[Hg] Te jv Floydhley blood pressure, systolic 150 mm[Hg] Jose [facility] oxygen saturation, oximetry 98 % Elana Marguerite respiratory rate E&M 18 /min [facility] pulse rate 87 /min [facility] blood pressure, resting No Nela royer Marguerite weight E&M 218.2 [lb_av] Elana topete Body Mass Index (Ratio) 31.16 kg/m2 Bruce Ordoñez MD blood pressure, diastolic 90 mm[Hg] Bradford isty Chris blood pressure, systolic 130 mm[Hg] Kri stefrem Castilloby pulse rate 95 /min [facility] [place] oxygen saturation, oximetry 97 % Va Chris respiratory rate E&M 16 /min Va Chris blood pressure, cuff size regular Kr isty [place] weight E&M 208 [lb_av] Va Chris height E&M 68.5 [in_i] Va [place] blood pressure, diastolic 80 mm[Hg] Kr isty Chris blood pressure, systolic 132 mm[Hg] Kri sty Chris pulse rate 96 /min Va Chris oxygen saturation, oximetry 98 % [facility] [place] respiratory rate E&M 16 /min Va Chris Body Mass Index (Ratio) 30.02 kg/m2 Vin heather Perez weight E&M 200.4 [lb_av] Va Chris blood pressure, diastolic 97 mm[Hg] ayan Larry blood pressure, systolic 136 mm[Hg] Tori derick Larry pulse rate 98 /min Brianna Larry oxygen saturation, oximetry 99 % Brianna Larry respiratory rate E&M 16 /min Brianna Larry Body Mass Index (Ratio) 30.14 kg/m2 Mariola fernandez Larry weight E&M 201.2 [lb_av] Brianna Larry blood pressure, diastolic 90 mm[Hg] Bradford Castilloby blood pressure, systolic 140 mm[Hg] Aguila Perez pulse rate 96 /min Va Castilloby oxygen saturation, oximetry 97 % Va Perez respiratory rate E&M 18 /min Va Castilloby Body Mass Index (Ratio) 28.92 kg/m2 Vin Perez weight E&M 193 [lb_av] Va Castilloby blood pressure, diastolic 78 mm[Hg] Me ayan Larry blood pressure, systolic 122 mm[Hg] Tori enriqueza Larry respiratory rate E&M 16 /min Brianna Larry pulse rate 103 /min Brianna Larry oxygen saturation, oximetry 97 % Brianna Larry Body Mass Index (Ratio) 28.62 kg/m2 Mariola fernandez Larry weight E&M 191 [lb_av] Brianna Larry respiratory rate E&M 20 /min Brianna Larry pulse rate 106 /min Brianna Larry oxygen saturation, oximetry 99 % Brianna Larry blood pressure, diastolic 102 mm[Hg] ayan Larry blood pressure, systolic 144 mm[Hg] Tori derick Larry Body Mass Index (Ratio) 29.96 kg/m2 Mariola ssa Larry weight E&M 200 [lb_av] Brianna Larry blood pressure, diastolic 90 mm[Hg] Francisco oglesby Lore blood pressure, systolic 120 mm[Hg] Olaf turner Lore pulse rate 106 /min Sg Lore oxygen saturation, oximetry 97 % Sg Lore respiratory rate E&M 24 /min Sg Lore Body Mass Index (Ratio) 30.29 kg/m2 Elpidio vargas Lore weight E&M 202.2 [lb_av] Sg Lore Body Mass Index (Ratio) 29.51 kg/m2 Mariola fernandez Larry weight E&M 197 [lb_av] Brianna Larry respiratory rate E&M 20 /min Brianna Larry pulse rate 108 /min Brianna Larry oxygen saturation, oximetry 98 % Brianna Larry blood pressure, diastolic 79 mm[Hg] Ne ayan Larry blood pressure, systolic 122 mm[Hg] Tori Juarez Body Mass Index (Ratio) 30.26 kg/m2 Elpidio vargas Lore blood pressure, diastolic 90 mm[Hg] Francisco oglesby Lore blood pressure, systolic 120 mm[Hg] Olaf turner Lore pulse rate 104 /min Sg Lore oxygen saturation, oximetry 98 % Sg Lore respiratory rate E&M 22 /min Sg Lore weight E&M 202 [lb_av] Sg Lore Body Mass Index (Ratio) 29.51 kg/m2 Ashkris Kate blood pressure, diastolic 84 mm[Hg] As hlee Lavinia blood pressure, systolic 120 mm[Hg] Vince angel Kate pulse rate 95 /min Maryangel Kate oxygen saturation, oximetry 96 % Mary Kate respiratory rate E&M 18 /min Mary Kate weight E&M 197 [lb_av] Mary Kate Body Mass Index (Ratio) 28.12 kg/m2 [...] Juani Jarquin weight E&M 187 [lb_av] Farnaz Sebastianoney blood pressure, diastolic 92 mm[Hg] Ta karen [place] blood pressure, systolic 136 mm[Hg] Ayaz jimenez [place] Body Mass Index (Ratio) 27.82 kg/m2 Deidra aguilar Dariana pulse rate 95 /min Deneen [place] oxygen saturation, oximetry 98 % Deneen [place] respiratory rate E&M 17 /min Deneen [place] weight E&M 185 [lb_av] Deneen [place] blood pressure, diastolic 80 mm[Hg] Ta karen [place] blood pressure, systolic 100 mm[Hg] Jacome tony [place] Body Mass Index (Ratio) 30.53 kg/m2 Deidra aguilar Dariana pulse rate 99 /min Deneen [place] oxygen saturation, oximetry 99 % Deneen [place] respiratory rate E&M 17 /min Deneen [place] weight E&M 203 [lb_av] Deneen [place] blood pressure, diastolic 86 mm[Hg] Chance Saleh blood pressure, systolic 121 mm[Hg] Dolly Saleh pulse rate 86 /min Heidi Saleh oxygen saturation, oximetry 95 % Heidi Saleh respiratory rate E&M 16 /min Heidi Saleh weight E&M 202 [lb_av] Heidi Saleh height E&M 68.5 [in_i] Heidi Saleh blood pressure, diastolic 88 mm[Hg] Chance Saleh blood pressure, systolic 127 mm[Hg] Dolly Saleh pulse rate 85 /min Heidi Saleh oxygen saturation, oximetry 99 % Heidi Saleh respiratory rate E&M 18 /min Heidi Saleh weight E&M 199 [lb_av] Heidi Saleh blood pressure, diastolic 88 mm[Hg] Linda Freedman'Aly blood pressure, systolic 110 mm[Hg] Gricelda linton O'Aly pulse rate 92 /min Lara O'Aly oxygen saturation, oximetry 99 % Lara O'Aly respiratory rate E&M 18 /min Lara O'Aly weight E&M 198 [lb_av] Lara O'Aly oxygen saturation, oximetry 96 % Celine Álvarez MA blood pressure, diastolic 90 mm[Hg] Chanelle Álvarez MA blood pressure, systolic 145 mm[Hg] Saqib Álvarez MA pulse rate 96 /min Celine Álvarez MA respiratory rate E&M 16 /min Celine Álvarez MA weight E&M 199 [lb_av] Celine Álvarez MA oxygen saturation, oximetry 97 % Celine Álvarez MA blood pressure, diastolic 80 mm[Hg] Chanelle Álvarez MA blood pressure, systolic 122 mm[Hg] Saqib Álvarez MA pulse rate 89 /min Celine Álvarez MA respiratory rate E&M 16 /min Celine Álvarez MA weight E&M 190 [lb_av] Celine Álvarez MA blood pressure, diastolic, right arm 72 m m[Hg] Cristiane Sorto blood pressure, systolic, right arm 100 m m[Hg] Cristiane Sorto blood pressure, diastolic 72 mm[Hg] Wade cristhian Sorto blood pressure, systolic 100 mm[Hg] Gaviota grant [facility] pulse rate 105 /min Cristiane [facility] oxygen saturation, oximetry 93 % Cristiane [facility] respiratory rate E&M 17 /min Ish Sorto weight E&M 185 [lb_av] [facility] blood pressure, diastolic 60 mm[Hg] Linda leal O'Aly blood pressure, systolic 86 mm[Hg] Gricelda linton O'Aly pulse rate 88 /min Lara O'Aly oxygen saturation, oximetry 93 % Lara O'Aly respiratory rate E&M 16 /min Lara O'Aly weight E&M 185 [lb_av] Lara O'Aly ALLERGIES Allergy Name Onset Date Reaction Criticality [...] 90 mL/min/{1.7 3_m2} LinkLogic >=60 Normal C, [place] [address] aspartate aminotransferase (SGOT), serum 34 1/L [facility] 10-45 Normal C, [place] [address] alanine aminotransferase (SGPT), serum 35 1/L [facility] 7-45 Normal C, [place] [address] Alkaline phosphatase 89 Link[facility] 40-130 Normal C, [place] [address] albumin, serum 4.3 g/dL [facility] 3.5-5.0 Normal C, [place] [address] protein, total, serum 7.1 g/dL [facility] 6.5-8.5 Normal C, [place] [address] bilirubin, serum, total 0.7 mg/dL [facility] 0.1-1.2 Normal , [place] [address] calcium, serum 9.2 mg/dL [facility] 8.5-10.3 Normal C, [place] [address] blood glucose, random 74 mg/dL [facility] 70-199 Normal C, [place] [address] creatine, serum 0.76 mg/dL [facility] 0.60-1.10 Normal C, [place] [address] urea nitrogen, blood 12 mg/dL [facility] 6-25 Normal C, [place] [address] anion gap, serum 9 mmol/L [facility] 2-15 Normal C, [place] [address] carbon dioxide, venous blood 28 mmol/L [facility] 22-32 Normal C, [place] [address] chloride, serum 96 mmol/L [facility] 97-110 Low C, [place] [address] potassium, serum 3.8 MMOL/L [facility] 3.3-4.9 Normal C, [place] [address] sodium, serum 133 mmol/L [facility] 135-145 Low C, [place] [address] activated partial thromboplastin time (aPTT) 50 s [facility] 28-38 High C, [place] [address] international normalized ratio (INR) 3.50 [facility] 0.90-1.20 High C, [place] [address] prothrombin time (patient) 39.9 s [facility] 10.3-13.7 High C, [place] [address] Absolute Basophils 0.0 K/CUMM [facility] 0.0-0.1 Normal C, [place] [address] Absolute Monocytes 0.6 K/CUMM [facility] 0.2-0.8 Normal C, [place] [address] Absolute Lymphocytes 1.4 K/CUMM [facility] 0.8-3.3 Normal C, [place] [address] Absolute Neutrophils 4.7 K/CUMM [facility] 1.5-6.5 Normal C, [place] [address] nucleated red blood cells as percent of [...] [facility]ic 3.5-5.2 sodium, serum 142 mmol/L [facility] [phone]/06 /14 urea nitrogen/creatinine ratio, serum 20 [facility] 9-23 creatinine, serum 0.76 mg/dL [facility] 0.57-1.00 urea nitrogen, blood 15 mg/dL [facility] 6-24 blood glucose, random 94 mg/dL [facility] 70-99 activated partial thromboplastin time (aPTT) 27 s [facility] 24-33 prothrombin time (patient) 10.1 s [facility] 9.1-12.0 international normalized ratio (INR) [...] [facility]Log[facility] Not Estab. platelet count 233 X10E3/UL LinkLog [phone]/04 /22 red blood cell distribution width 13.1 % LinkLog 11.7-15.4 mean corpuscular hemoglobin concentration, RBC 34.6 G/DL [facility] 31.5-35.7 mean corpuscular hemoglobin, RBC 35.3 pg [facility] 26.6-33.0 High mean corpuscular volume, RBC 102 fL [facility] 79-97 High hematocrit, blood 40.8 % LinkLog 34.0-46.6 hemoglobin, blood 14.1 g/dL [facility] 11[facility]15[facility] erythrocyte (RBC) count 4.00 X10E6/UL LinkLog 3.77-5.28 leukocyte count, blood 4.1 X10E3/UL [facility] 3.4-10.8 alanine aminotransferase (SGPT), serum 21 1/L [...] LinkLogic 3.5-5.2 sodium, serum 144 mmol/L [facility] [phone]/04 /22 urea nitrogen/creatinine ratio, serum 17 LinkLogic [...] Not Estab. platelet count 252 X10E3/UL [facility] [phone]/10 /27 red blood cell distribution width 13.4 [...] Not Estab. platelet count 217 X10E3/UL [facility] [phone]/09 /24 red blood cell distribution width 12.9 [...] Booker RN international normalized ratio (INR) 2.2 Kendy Contreras Normal prothrombin time (patient) 23.2 s Kendy Contreras activated partial thromboplastin time (aPTT) 30 s [facility] 24-33 prothrombin time (patient) 11.4 s [facility] 9.1-12.0 international normalized ratio (INR) 1.1 [facility] 0.8-1.2 calcium, serum 9.6 mg/dL [facility] 8.7-10.2 carbon dioxide, venous blood 26 mmol/L [facility] 20-29 chloride, serum 103 mmol/L [facility] 96-106 potassium, serum 4.2 mmol/L [facility] 3.5-5.2 sodium, serum 144 mmol/L [facility] 602-222 0201/06 /11 urea nitrogen/creatinine ratio, serum 17 [facility]ic [...] Not Estab. platelet count 224 X10E3/UL [facility] [phone]/06 /11 red blood cell distribution width 13.8 [...] [facility] 3.5-5.2 sodium, serum 142 mmol/L [facility] [phone]/05 /08 urea nitrogen/creatinine ratio, serum 22 [facility]Logic [...] Not Estab. platelet count 225 X10E3/UL [facility] [phone]/05 /08 red blood cell distribution width 13.7 [...] Not Estab. platelet count 235 X10E3/UL [facility] [phone]/04 /29 red blood cell distribution width 13.6 [...] Not Estab. platelet count 235 X10E3/UL [facility] [phone]/12 /04 red blood cell distribution width 14.3 [...] carbon dioxide, venous blood 22 mmol/L [facility] 20-29 chloride, serum 105 mmol/L [facility] 96-106 potassium, serum 4.0 mmol/L [facility] 3.5-5.2 sodium, serum 144 mmol/L [facility] 600-816 5651/05 /23 urea nitrogen/creatinine ratio, serum 20 [facility] 9-23 eGFR if 97 mL/min/{1.7 3_m2} [facility] >59 eGFR if not 84 mL/min/{1.7 3_m2} [facility] >59 creatinine, serum 0.80 mg/dL [facility] 0.57-1.00 urea nitrogen, blood 16 mg/dL [facility] 6-24 blood glucose, random 95 mg/dL [facility] 65-99 coagulation managed by Evelia Oseguera international normalized ratio (INR) 1.2 [...] [facility]ic 3.5-5.2 sodium, serum 143 mmol/L [facility] [phone]/02 /07 urea nitrogen/creatinine ratio, serum 18 LinkLogic [...] Not Estab. platelet count 239 X10E3/UL [facility] [phone]/02 /07 red blood cell distribution width 13.9 % [facility] 12.3-15.4 mean corpuscular hemoglobin concentration, RBC 33.5 G/DL [facility] 31.5-35.7 mean corpuscular hemoglobin, RBC 33.3 pg [facility] 26.6-33.0 High mean corpuscular volume, RBC 100 fL [facility] 79-97 High hematocrit, blood 40.0 % [facility] 34.0-46.6 hemoglobin, blood 13.4 g/dL [facility] 11.1-15.9 erythrocyte (RBC) count 4.02 X10E6/UL [facility] 3.77-5.28 leukocyte count, blood 4.6 X10E3/UL [facility] 3.4-10.8 platelet count 201 10*3/mm3 Grupo oDuglas hematocrit, blood 34.0 % Grupo Douglas international normalized ratio (INR) 1.12 Grupo Douglas creatinine, serum 0.69 mg/dL Grupo Douglas potassium, serum 3.6 mmol/L Grupo Douglas sodium, serum 143 mmol/L Grupo Douglas HISTORY OF MEDICATION USE Medication Status Instructions Dates Provider Indications Com ments celecoxib 200 mg capsule active Oh Celestin DNP,RN CARDIOLOGY leflunomide 20 mg tablet active Oh Celestin DNP,RN CARDIOLOGY Simponi 50 mg/0.5 mL pen injector active Oh Celestin DNP,RN CARDIOLOGY pantoprazole 40 mg tablet,delayed release (DR/EC) active [...] pain 07/23 - 11/18 Hugo Ordoñez MD Bactrim DS 800-160 mg tablet completed Take 1 [...] RN #[id number], 5 days supply, Prescribed by [facility], NOT PROVIDED, Filled 04/03/2020 diclofenac sodium 1% [...] in the am - 07/26 Oh Celestin DNP,RN CARDIOLOGY metoprolol tartrate 25 mg tablet completed Take 0.5 tablet by mouth twice a day 10/02 - 03/13 Silvana Jim Nucynta ER 50 mg tablet extended release [...] e a day 07/31 - 04/10 Lara Freedman'Aly Lasix 20 mg tablet completed Take 1 [...] 8 hours prn 09/05 - 02/08 Brianna REQUIP 0.5 MG ORAL TABLET completed 1-2 [...] completed once daily 10/19 - 02/08 Sg Torrez FLEXERIL 10 MG TABS completed twice daily 10/19 - 02/08 Farnaz Jarquin NEURONTIN 300 MG ORAL CAPSULE completed two tabs three time daily 10/19 - 02/08 Sg Torrez TRETINOIN CREAM completed once daily as needed - 02/08 Deneen Westbrook PHENADOZ 25 MG RECTAL SUPPOSITORY completed as needed 10/19 - 02/08 Briannaderick Juarez DOXYCYCLINE HYCLATE CPEP completed two times [...] TABLET completed as directed - 02/08 Deneen [place] TAPAN 60 MG ORAL CAPSULE EXTENDED RELEASE [...] MD personal history of marijuana use no Hugo Ordoñez MD drug use no Hugo Lilly alcohol use no Hugo Lilly passive cigarette sm kelvin exposure no Hugo Ordoñez MD smoking status Never smoker Hugo Ordoñez MD personal history of marijuana use no Mario Monroy drug use no Mario Monroy alcohol use no Mario Monroy passive cigarette sm kelvin exposure no Mario Souzaty smoking status Never smoker Mario Porfirio personal history of marijuana use no Oh Celestin DNP,RN CARDIOLOGY drug use no Oh Celestin DN P,RN CARDIOLOGY alcohol use no Oh Celestin DN P,RN CARDIOLOGY passive cigarette sm kelvin exposure no Oh Celestin DNP,RN CARDIOLOGY smoking status Never smoker Oh Celestin DNP,RN CARDIOLOGY drug use none Hugo Lilly alcohol use [...] MD number of grandchildren Hugo Ordoñez MD Elianagustavo Woods 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 drug use none Eliana Leahyluri STORE 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 alcohol use no Eliana Nalluri STORE 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 passive cigarette sm kelvin exposure no Eliana Nalluri STORE 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 smoking status Never smoker Eliana Nallu ri STORE 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 drug use none Brenda Dennis alcohol use no Brenda Dennis passive cigarette sm kelvin exposure no Brenda Dennis smoking status Never smoker Brenda Dennis drug use none Hugo Lilly alcohol use no Hugo Lilly passive cigarette sm kelvin exposure no Hugo Ordoñez MD smoking status Never smoker Hugo Ordoñez MD drug use none Brenda Dennis alcohol use no Brenda Dennis passive cigarette sm kelvin exposure no Brenda Dennis smoking status Never smoker Brenda Dennis drug use none Brenda Dennis alcohol use no Brenda Dennis passive cigarette sm kelvin exposure no Brenda Dennis smoking status Never smoker Brenda Dennis social history reviewed E&M revi ewed - no changes required Hugo Ordoñez MD social history E&M Marital Statu s: / L sharita alone E thnicity: Smoking History: P shahab has never smoked. Hugo Ordoñez MD social history reviewed E&M revi ewed - no changes required Hugo Ordoñez MD seatbelt usage 100 % Brenda Collins physical exercise, frequency, days per week yes Brendamaxime Collins caffeine use, averag e drinks per day no Brenda Dennis passive cigarette sm kelvin exposure no Brenda Dennis smoking status Never smoker Brenda Dennis social history reviewed E&M revi ewed - no changes required Hugo Ordoñez MD social history E&M Marital Statu s: / L sharita alone E thnicity: Smoking History: P shahab has never smoked. Hugo Ordoñez MD social history reviewed E&M revi ewed - no changes required Hugo Ordoñez MD seatbelt usage 100 % Kendra Navarro melissa physical exercise, frequency, days per week yes Kendra Heidi caffeine use, averag e drinks per day no Kendra Heidi passive cigarette sm kelvin exposure no Kendra Mikejono smoking status Never smoker Kendra Navarro melissa social history reviewed E&M revi ewed - [...] exercise, frequency, days per week yes Corinne [place] caffeine use, averag e drinks per day no Corinne Travis passive cigarette sm kelvin exposure no Corinne [place] smoking status Never smoker Corinne Ana s [...] averag e drinks per day no Corinne [place] passive cigarette sm kelvin exposure no Corinne [place] smoking status Never smoker Corinne Ana s social history reviewed E&M revi ewed - no changes required Hugo Ordoñez MD social history E&M Marital Statu s: / L sharita alone E thnicity: Smoking History: P shahab has never smoked. Hugo Ordoñez MD social history reviewed E&M revi ewed - no changes required Hugo Ordoñez MD seatbelt usage 100 % [place]ia [place] physical exercise, frequency, days per week yes Sophia Humbird caffeine use, averag e drinks per day no [place] passive cigarette sm kelvin exposure no Sophia Humbird smoking status Never smoker [facility] social [facility] E&M Marital Statu s: / L sharita alone E thnicity: Smoking History: P shahab has never smoked. Hugo Ordoñez MD social history reviewed E&M revi ewed - no changes required Hugo Ordoñez MD seatbelt usage 100 % Corinne Ana s physical exercise, frequency, days per week yes Corinne [place] caffeine use, averag e drinks per day no Corinne [place] passive cigarette sm kelvin exposure no Corinne Travis smoking status Never smoker Corinne Ana s social history E&M Marital Statu s: / L sharita alone E thnicity: Smoking History: P shahab has never smoked. Hugo Ordoñez MD social history reviewed E&M revi ewed - no changes required Hugo Ordoñez MD seatbelt usage 100 % Denise bond physical exercise, frequency, days per week yes Denise French caffeine use, averag e drinks per day no Denise French passive cigarette sm kelvin exposure no Denise French smoking status Never smoker Denise Rekha bond seatbelt usage 100 % Va Castilloby physical exercise, frequency, days per week yes Va Chris caffeine use, averag e drinks per day no [place] passive cigarette sm kelvin exposure no [place] smoking status Never smoker Va Castilloby social history reviewed E&M revi ewed - no changes required Linda Scott NP seatbelt usage 100 % Kendra torres physical exercise, frequency, days per week yes Kendra Gordon caffeine use, averag e drinks per day no Kendratim Gordon passive cigarette sm kelvin exposure no Kendra Heidi smoking status Never smoker Kendratim torres social history E&M Marital Statu s: [...] smoker Mary Nelson social history reviewed E&M revi ewed - no changes required Lori Cummings NP seatbelt usage 100 % Denise bond physical exercise, frequency, days per week yes Denise Manolo caffeine use, averag e drinks per day no Denise French passive cigarette sm kelvin exposure no Denise French smoking status Never smoker Denise bond number of grandchildren Jean Claude Lilly O JEfrem Yang social history E&M Marital Statu s: / L sharita alone E thnicity: Smoking History: P shahab has never smoked. Jean Claude Calixto social history reviewed E&M revi ewed - no changes required Jean Claude Calixto seatbelt usage 100 % Lara O'Aly physical exercise, frequency, days per week yes Lara O'Aly caffeine use, averag e drinks per day no Lara O'Aly passive cigarette sm kelvin exposure no Lara O'Aly smoking status Never smoker Lara O'Aly social history E&M Marital Statu s: / [...] Franco smoking status Never smoker Joslyn juan smoking status Never smoker Yo griffith social history E&M Marital Statu s: / L sharita alone E thnicity: Smoking History: P shahab has never smoked. Yo Heller social history reviewed E&M revi ewed - no changes required Yo Heller seatbelt usage 100 % Mary Nelson physical exercise, frequency, days per week yes Mary Nelson caffeine use, averag e drinks per day no Mary Nelson passive cigarette sm kelvin exposure no Mary Nleson social history E&M Marital Statu s: / L sharita alone E thnicity: Smoking History: P shahab has never smoked. Hugo Ordoñez MD social history reviewed E&M revi ewed - no changes required Hugo Ordoñez MD seatbelt usage 100 % Sania [employer] physical exercise, frequency, days per week yes [facility] caffeine use, averag e drinks per day no [facility] passive cigarette sm kelvin exposure no [facility] smoking status Never smoker [facility] social history E&M Marital Statu s: / L sharita alone E thnicity: Smoking History: P shahab has never smoked. Hugo Ordoñez MD social history reviewed E&M revi ewed - no changes required Hugo Ordoñez MD seatbelt usage 100 % [facility] physical exercise, frequency, days per week yes [facility] caffeine use, averag e drinks per day no [facility] passive cigarette sm kelvin exposure no [facility] smoking status Never smoker [employer]ia [employer] smoking status Never smoker Yo griffith social history E&M Marital Statu s: / L sharita alone E thnicity: Smoking History: P shahab has never smoked. Yo Heller social history reviewed E&M revi ewed - no changes required Yo Heller seatbelt usage 100 % Va Perez physical exercise, frequency, days per week yes [place] caffeine use, averag e drinks per day no [place] passive cigarette sm kelvin exposure no Va Chris social history reviewed E&M revi ewed - no changes required Celestine Cam seatbelt usage 100 % Tonsha Hensley physical exercise, frequency, days per week yes Tonsha Hensley caffeine use, averag e drinks per day no Tonsha Hensley passive cigarette sm kelvin exposure no Tonsha Hensley smoking status Never [facility]oker [facility] reviewed E&M revi ewed - no changes required Celestinejos Levy social history reviewed E&M revi ewed - no changes required Celestinejos Levy social history E&M Marital Statu s: / L sharita alone E thnicity: Smoking History: P atlong has never smoked. Hugo Ordoñez MD social history reviewed E&M revi ewed - no changes required Hugo Ordoñez MD seatbelt usage 100 % [facility] physical exercise, frequency, days per week yes [facility] caffeine use, averag e drinks per day no [facility] passive cigarette sm kelvin exposure no [facility] Never smoker [facility] social history reviewed E&M revi ewed - no changes required Tab Taylor MD seatbelt usage 100 % Yenifer Toliv er physical exercise, frequency, days per week yes Yenifer Aj caffeine use, averag e drinks per day no Yenifer Aj passive cigarette sm kelvin exposure no Yenifer Aj smoking status Never smoker Yenifer Toliv er social history E&M Marital Statu s: / L sharita alone E thnicity: Smoking History: P atlong has never smoked. Hugo Ordoñez MD social history reviewed E&M revi ewed - no changes required Hugo Ordoñez MD seatbelt usage 100 % [facility], frequency, days per week yes Tonsha Hensley caffeine use, averag e drinks per day no Tonsha Hensley passive cigarette sm kelvin exposure [facility] status Never smoker [facility] social history E&M Marital Statu s: / L sharita alone E thnicity: Smoking History: Caroline gudino has never smoked. Tab Taylor MD smoking status Never smoker Tab wilcox MD seatbelt usage 100 % Velma uriarte-Kashif physical [...] frequency, days per week yes Chastity Jaime caffeine use, averag e drinks per day no Chastity Jaime passive cigarette sm kelvin exposure no Chastity Jaime smoking status Never smoker Chastity Hogu e seatbelt usage 100 % Velma Guzman physical exercise, frequency, days per week yes Velma Rodriguez caffeine use, averag e drinks per day no Velma Rodriguez passive cigarette sm kelvin exposure no Velma Rodriguez smoking status Never smoker Velma Guzman social history reviewed E&M revi ewed [...] Joslyn Salvador smoking status Never smoker Joslyn David juan social history reviewed E&M revi ewed - no changes required Celestine Levy seatbelt usage 100 % Sania Bloc michi physical exercise, frequency, days per week yes Sania Briana caffeine use, averag e drinks per day no Sania Briana passive cigarette sm kelvin exposure no Sania [facility] smoking status Never smoker [facility] social history reviewed E&M revi ewed - no changes required Tab Taylor MD seatbelt usage 100 % [facility] physical exercise, frequency, days per week yes [facility] caffeine use, averag e drinks per day no [facility] passive cigarette sm kelvin exposure no [facility] smoking status Never smoker [facility] seatbelt usage 100 % Velma uriarte-Kashif physical exercise, frequency, days per week yes Velma Rodriguez caffeine use, averag e drinks per day no Velma Rodriguez passive cigarette sm kelvin exposure no Velma Rodriguez smoking status Never smoker Velma uriarte-Kashif social history reviewed E&M revi ewed [...] Ordoñez MD seatbelt usage 100 % Sania [employer] physical exercise, frequency, days per week yes [facility] caffeine use, averag e drinks per day no [facility] passive cigarette sm kelvin exposure no [facility] smoking status Never smoker [facility] social history E&M Marital Statu s: [...] smoking status Never smoker Chastity Hogu e smoking status Never smoker Celestine Levy seatbelt usage 100 % Velma uriarte-Kashif physical exercise, frequency, days per week yes Velma Rodriguez alcohol use, average drinks per day none [...] sharita alone E thnicity: Smoking History: P atlnog has never smoked. Tab Taylor MD seatbelt usage 100 % Lara O'Aly physical [...] Smoking History: P shahab has never smoked. [place] seatbelt usage 100 % Kendra torres physical exercise, frequency, days per week yes Kendra Heidi alcohol use, average drinks per day none Kendra Heidi alcohol use no Kendra Gruenesalliee gucci caffeine use, averag e drinks per day no Kendra Heidi drug use none Kendra Grledanenfe sunshineer passive cigarette sm kelvin exposure no Kendra Conradonefreddy smoking status Never smoker Kendra torres social [...] use, averag e drinks per day no [facility]ime drug use none Chastity Jaime passive cigarette sm kelvin exposure no Giselestity Jaime smoking status Never smoker Giselestity Hogu e social history E&M Marital Statu s: / L sharita alone E thnicity: Smoking History: P shahab has never smoked. Hugo Ordoñez MD smoking [...] Hugo Ordoñez MD number of grandchildren Hugo Perez seatbelt usage 100 % Va Perez physical exercise, frequency, days per week yes Va Perez alcohol use, average drinks per day none Va Perez alcohol use no [place] caffeine use, averag e drinks per day no Va Castilloby drug use none [place] passive cigarette sm kelvin exposure no Va Chris smoking status Never smoker Va Castilloby social history reviewed E&M revi ewed - no changes required Rodo Berg MD number of grandchildren Rodo Portery Chris social history reviewed E&M revi ewed [...] Brianna Larry smoking status Never smoker Brianna Juarez social history reviewed E&M revi ewed - no changes required Hugo Ordoñez MD number of grandchildren Hugo Ordoñez MD [facility] social history reviewed E&M revi ewed - [...] use, average drinks per day none Brianna Juarez alcohol use no Brianna Juarez caffeine use, averag e drinks per day no Brianna Juarez drug use none Brianna Juarez passive cigarette sm kelvin exposure no Brianna Juarez smoking status Never smoker Brianna Juarez social history E&M Marital Statu s: / L sharita alone E thnicity: Hugo Ordoñez MD social history reviewed E&M revi ewed - no changes required Hugo Ordoñez MD social history reviewed E&M revi ewed - no changes required Hugo Ordoñez MD seatbelt usage 100 % Brianna Juarez physical exercise, frequency, days per week yes Brianna Juarez alcohol use, average drinks per day none Brianna Juarez caffeine use, averag e drinks per day no Brianna Juarez drug use none Brianna Juarez passive cigarette sm kelvin exposure no Brianna Juarez smoking status Never smoker Brianna Juarez social history E&M Marital Statu s: L sharita alone E thnicity: Hugo Ordoñez MD social history reviewed E&M revi ewed - no changes required Hugo Ordoñez MD social history reviewed E&M revi ewed - no changes required Hugo Ordoñez MD smoking status Never smoker Mary Lavinia social history reviewed E&M reviewed Hugo Ordoñez [...] per day none [employer] smoking status Non-smoker [facility] MENTAL STATUS Date Observation Value Provider assessment [...] Payer name Policy type / Coverage type [place] [employer] party ID [facility] [id number] [place] Medicare [id number] ADVANCE DIRECTIVES Name Date DISCUSSED - NO DECISION MADE TREATMENT PLAN Date Name Performer [id number],S, Hugo uriarte MD [id number],S, Hugo uriarte MD [id number],S, Hugo uriarte MD [id number],S, Hugo uriarte MD [id number],S, Hugo uriarte MD [id number],S, Hugo uriarte MD [id number],S, Hugo uriarte MD [id number],B, Hugo uriarte MD [id number],S, Hugo uriarte MD [id number],S, Hugo uriarte MD [id number],S, Hugo uriarte MD [id number],B, Hugo uriarte MD [id number],S, Hugo uriarte MD [id number],B, Hugo uriarte MD [id number],S, Hugo Ramada n PA [id number],S, Hugo Ramada n PA [id number],B, Hugo Ramada n PA [id number],S, Hugo Ramada n [place] [id number],S, Hugo Ramada n PA [id number],S, Hugo Ramada n [place] [id number],S, Hugo Ramada n [place] [id number],S, Hugo Ramada n [place] [id number],S, Hugo Ramada n PA [id number],S, Hugo Ramada n PA [id number],S, Hugo Ramada n [place] [id number],S, Hugo Ramada n [place] [id number],S, Hugo Ramada n [place] [id number],S, Hugo Ramada n PA [id number],S, Hugo Ramada n [place] [id number],S, Hugo Ramada n [place] [id number],S, Hugo Ramada n [place] [id number],S, Hugo Ramada n [place] [id number],S, Hugo Ramada n [place] [id number],S, Hugo Ramada n [place] [id number],S, Hugo Ramada n [place] [id number],S, Hugo Ramada n [place] [id number],S, Hugo Natividad uriarte MD [id number],S, Hugo Silverioalana uriarte MD [id number],B,S teroids improved pain. Lab shows systemic inflammation. Hugo Ordoñez MD [id number],S, Hugo Natividad uriarte MD [id number],S, Hugo Natividad uriarte MD [id number],S, Hugo Natividad uriarte MD [id number],B, Hugo Natividad uriarte MD [id number],S, Hugo Natividad uriarte MD [id number],S, Hugo Natividad uriarte MD [id number],B, Hugo Natividad uriarte MD [id number],S, Hugo Natividad uriarte MD [id number],S, Hugo Natividad uriarte [place] [id number],S, Hugo Natividad uriarte [place] [id number],S, Hugoshad Silverioalana uriarte PA [id number],S, Hugoshad Silverioalana uriarte [place] [id number],B,R 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 Hugo Ordoñez MD [id number],S, Hugo Natividad uriarte MD [id number],S, Hugo Natividad uriarte MD [id number],S, Hugo Natividad uriarte MD [id number],S, Hugo Natividad uriarte MD [id number],S, Hugo uriarte [place] [id number],S, Hugo uriarte MD [id number],B, Hugo uriarte MD [id number],S, Hugo uriarte MD [id number],B, Hugo uriarte MD [id number],W,S eems pacer related. Will replace RV lead with a septal implant and try to remove old lead. Hugo Ordoñez MD [id number],S, Hugo uriarte MD [id number],B, Hugo uriarte MD [id number],S, Hugo uriarte MD [facility] Malina Blood Take your medication s every day [...] Hugo Ordoñez MD Cardiology Hugo Ordoñez MD Cardiology:S/P PPM. S/P AV madai ablation. N ow having sternal pain that is causing great discomfort. Will get chest x-ray and schedule lead removal replacement/repositioning. T his visit has been a part of the consistent, comprehensive, and ongoing management of the chronic medical condition(s) listed above for the patient. Hugo Ordoñez MD Cardiology Hugo Ordoñez MD Cardiology Hugo Ordoñez MD Cardiology Hugo Ordoñez MD Cardiology Hugo Ordoñez MD Cardiology:This visi t has been a part of the consistent, comprehensive, and ongoing management of the chronic medical condition(s) listed above for the patient. Hugo Ordoñez MD Cardiology Mario Monroy Cardiology:Atypical for ACS H ad cath in 2019 that showed no obstructuve CAD Mario Greenville Cardiology:This visi t has been a part of the consistent, comprehensive, and ongoing management of the chronic medical condition(s) listed above for the patient. Mario Porfirio Cardiology:S/p amule t off AC c ontinue following with Glendy Martin Porfirio Cardiology:Device de pendent r a 51%, rv [...] HAS PROCEDURE FOR BLADDER SLING DONE AT [facility] W/ JESSICA UROLOGIST O K TO CONTINUE [...] Cardiology Hugo Ordoñez MD Cardiology:On OAC Eliana Nallur i STORE 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 Cardiology:Mild sob with exertio n Eliana Nalluri STORE 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 Cardiology:None Eliana Leahyluri STORE 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 Cardiology:EF 70% Her updated medication list for [...] relief after 3 tabs seek medical attention Eilana Boswellri STORE 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 Cardiology: H er updated medication list for this problem includes: Rosuvastatin 40 Mg Tablet (Rosuvastatin) ..... Take 1 tablet by mouth once a day Eliana Boswellri STORE 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 Cardiology:AT episod e on 10/10/23 for 4m 30s, EGM appears t o show PAT. On warfarin for OAC Eliana Leahyluri STORE 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 Cardiology:s/p PPM Eliana Leahylu ri STORE 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 Cardiology:RA 91%, R V 100% b attery 60% Eliana Boswellri STORE 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 Cardiology: W as recently in the hospital c/o heaviness in her chest . Normal EKG, stress test and echo h ad on eepisode of chest pain since dischrged from hospital, relieved with nitro Elianagustavo Leahyluri SONIA Cardiology:Bp stable today Selene Leahyalex SCOTT Telehealth Lele Brown Telehealth Lele Brown Telehealth:complains of heaviness in her chest since last night, she has PARKER which is new, advised her to go to ER. Lele Brown Telehealth:Worsening sxs of SOB, advised her to go to E ER. Lele Brown Telehealth Lele Brown Telehealth:Slizette may b e from decompensation, advised her to go to E ER since she is very symptomatic for [...] Morgan Roy MD Cardiology:Hx TIA. D icsussed LAEN placement Morgan Roy MD Cardiology Hugo Ordoñez [...] PPM if her symptoms fail to resolve. [id number] 120-130's, AsVP, 100% RV paced, Metoprolol increased to 50mg BID, much improved symptoms since these changes Linda Scott STORE 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 Electrophysiology Fo llow up : i nterrogation today 0% AF burden Linda Scott NP Electrophysiology Fo llow up :[id number], appears to be ST, 120-130's rate, AsVp, [...] better from above changes to device Linda Scott NP Electrophysiology Fo llow up : A T [...] 7 1/2 mins. total 131 episodes Lori Zoila SCOTT Electrophysiology- N P:pt reports intermittent palpitations interrogation today: ST 120's. longeset 7 1/2 mins. total 131 episodes Lori Gilbertveronica SCOTT Electrophysiology- N P:interrogation today: ST 120's. longeset [...] her symptoms fail to resolve. Lori Cummings NP Electrophysiology- N P:interrogation today 0% AF burden Lori Cummings STORE 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 Electrophysiology- N P:interrogation today: ST 120's. longeset [...] her symptoms fail to resolve. Lori Cummings NP Electrophysiology: N ormal cath 04/16/2020 complicated by hematoma to right groin. Sheath induced radial artery spasm noted. H as been using Nitro. Jean Claude Calixto DO Electrophysiology:Wo uld consider the addition of catapress both for [...] her symptoms fail to resolve. Jean Claude Calixto DO Electrophysiology:Martin castaneda had symptoms of what appears to [...] her symptoms fail to resolve. Jean Claude Calixto DO Cardiology follow up Hugo mari MD Cardiology [...] DC PPM implant 06/2019. P resented to [facility] 03/2020 and was told by Lamp Inspector there she was having SVT . S [...] time and ambulation. Hugo Ordoñez MD Cardiology Hugo Ordoñez MD [...] 03/2020 CHOL 195, Trig 213, HDL 37, [id number]. L ipoprotein 119.7 A polipoprotein B 114 Yo Heller Electrophysiology:Un derwent AV node ablation 12/2019 with prior DC PPM implant 06/2019. H ospitalized at [place] and was told by Lamp Inspector there she was having SVT . S he complains of palpitations, starting approximately 1 month ago, that have been progressively getting worse. Complains of associated fatigue. 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 NO documentation of conduction through the AV node. S tart Digoxin 0.125 mg once daily . Unlikely she would have Digoxin toxicity due to low dose. Yo Heller Electrophysiology:Un derwent AV node ablation 12/2019 with prior DC PPM implant 06/2019. R V pacing 100% S etting DDD 60, upper tracking rate 130. Mode switch 160, switch to DDIR. Yo Heller Electrophysiology:s/ p AV node ablation 12/2019. Her updated medication list for this problem includes: Aspirin Adult Low Dose 81 Mg Oral Tablet Delayed Release (Aspirin) ..... One tab by mouth daily Yo Heller Cardiology: T he following medications were removed from the medication list: Warfarin Sodium 5 Mg Tablet (Warfarin sodium) ..... Take 1 tablet by mouth starting 7 days prior to procedure Her updated medication list for this problem includes: Aspirin Adult Low Dose 81 Mg Oral Tablet Delayed Release (Aspirin) ..... One tab by mouth daily [facility] Cardiology [facility] Cardiology: H er updated medication list for this problem includes: Warfarin Sodium 5 Mg Tablet (Warfarin sodium) ..... Take 1 tablet by mouth starting 7 days prior to procedure Aspirin Adult Low Dose 81 Mg Oral Tablet Delayed Release (Aspirin) ..... One tab by mouth daily [facility] Cardiology: H er updated medication list for this problem includes: Warfarin Sodium 5 Mg Tablet (Warfarin sodium) ..... Take 1 tablet by mouth starting 7 days prior to procedure Aspirin Adult Low Dose 81 Mg Oral Tablet Delayed Release (Aspirin) ..... One tab by mouth daily [facility] TeleHealth: H er updated medication list for this problem includes: Warfarin Sodium 5 Mg Oral Tablet (Warfarin sodium) ..... One tab by mouth starting 7 days prior to procedure Aspirin Adult Low Dose 81 Mg Oral Tablet Delayed Release (Aspirin) ..... One tab by mouth daily [facility] TeleHealth: H er updated medication list for this problem includes: Warfarin Sodium 5 Mg Oral Tablet (Warfarin sodium) ..... One tab by mouth starting 7 days prior to procedure Aspirin Adult Low Dose 81 Mg Oral Tablet Delayed Release (Aspirin) ..... One tab by mouth daily [facility] TeleHealth: H er updated medication list for this problem includes: Warfarin Sodium 5 Mg Oral Tablet (Warfarin sodium) ..... One tab by mouth starting 7 days prior to procedure Aspirin Adult Low Dose 81 Mg Oral Tablet Delayed Release (Aspirin) ..... One tab by mouth daily [facility] TeleHealth:Reschedul e AV node ablation with carto and anesthesia after December 23, No need for CT [facility] TeleHealth: H er updated medication list for this problem includes: Aspirin Adult Low Dose 81 Mg Oral Tablet Delayed Release (Aspirin) ..... One tab by mouth daily [facility] TeleHealth: H er updated medication list for this problem includes: Aspirin Adult Low Dose 81 Mg Oral Tablet Delayed Release (Aspirin) ..... One tab by mouth daily [facility] TeleHealth [facility] TeleHealth: H er updated medication list for this problem includes: Aspirin Adult Low Dose 81 Mg Oral Tablet Delayed Release (Aspirin) ..... One tab by mouth daily [facility] TeleHealth:No episod es reported for this session. I CM trend is stable. Celestine Levy Cardiology Hugo Ordoñez MD Cardiology Hugo [...] Dr. Ordoñez to do PPM implant at [facility] for sinus node dysfunction. The following medications [...] Hugo Ordoñez MD Cardiology-seen with MD and STORE 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 Maxime Gamboa [facility] Cardiology-seen with MD and STORE 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 : none noted on ILR Dionne Gamboa [facility] Cardiology-seen with MD and STORE 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 :Pt remains symptomatic with tachycardia interfering with [...] One tab by mouth daily Dionne Gamboa [facility] Cardiology:well heal ing scar a vised pt to apply ice pack on incision site. Celestine Levy Electrophysiology:IL R implantation O rders: E KG (CPT-15829) 9 9213 LTD. Complex (CPT-92308) 6 minute walk test (CPT-76850) Her updated medication list for this problem includes: Metoprolol Tartrate 25 Mg Oral Tablet (Metoprolol tartrate) ..... One tab. twice daily Aspirin Adult Low Dose 81 Mg Oral Tablet Delayed Release (Aspirin) ..... One tab by mouth daily Tab Taylor MD Electrophysiology: O rders: 9 9213 LTD. Complex (CPT-36330) 6 minute walk test (CPT-41208) L oop Rec Implant - [facility] (*) Her updated medication list for this problem includes: Metoprolol Tartrate 25 Mg Oral Tablet (Metoprolol tartrate) ..... One tab. twice daily Aspirin Adult Low Dose 81 Mg Oral Tablet Delayed Release (Aspirin) ..... One tab by mouth daily Tab Taylor MD Electrophysiology: O rders: 9 9213 LTD. Complex (CPT-83209) 6 minute walk test (CPT-44942) L oop Rec Implant - [facility] (*) Her updated medication list for this problem includes: Metoprolol Tartrate 25 Mg Oral Tablet (Metoprolol tartrate) ..... One tab. twice daily Aspirin Adult Low Dose 81 Mg Oral Tablet Delayed Release (Aspirin) ..... One tab by mouth daily Tab Taylor MD Electrophysiology:IL R implantation at [facility] with Dr. Tiago Ramirez ill evaluate ILR after implantation. If pt has [...] a day. Orders: 9 9214 MOD Complex (CPT-20234) B ASIC METABOLIC PANEL W/EGFR (75343) D -DIMER, QUANTITATIVE (8659) D -DIMER, QUANTITATIVE (8659) M obile Cardiac Tele (CPT-55244) Celestine Levy Cardiology Tab castaneda MD Cardiology: [...] ..... One half tablet twice a day. aCm Tabor Electrophysiology: H er updated medication list for this problem includes: Adult Aspirin Ec Low Strength 81 Mg Oral Tablet Delayed Release (Aspirin) ..... Take one tab po once daily Metoprolol Tartrate 25 Mg Oral Tablet (Metoprolol tartrate) ..... One half tablet twice a day. Cam [facility]: nuclear stress test Summary 1 . Normal myocardial perfusion imaging after vasodilator stress with Regadenoson. 2 . Normal left ventricular systolic function with a calculated ejection fraction of 75%. 3 . No obvious significant scintigraphic evidence of myocardial ischemia or scar. 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 Tab [...] tablet twice a day. Orders: E KG (CPT-91142) 9 9215 HIGH Complex (CPT-70298) A BLATION w/ Anesthesia (*) obile Cardiac Tele (CPT-57687) [facility] Electrophysiology Ne w Patient : O rders: E KG (CPT-61027) 9 9215 HIGH Complex (CPT-04401) A BLATION w/ Anesthesia (*) Her updated [...] MD Cardiology Hugo Ordoñez MD Cardiology Hugo Ordoeñz MD Cardiology Hugo Ordoñez MD Cardiology Hugo Ordoñez MD Cardiology Hugo Ordoñez MD Cardiology Hugo Ordoñez MD Cardiology Hugo Ordoñez MD Cardiology Hugo Ordoñez MD Cardiology Hugo Ordoñez MD Cardiology Hugo Ordoñez MD Cardiology Hugo Ordoñez MD Cardiology Hugo Ordoñez MD Cardiology Hugo Ordoñez MD Cardiology Hugo Odroñez MD Cardiology Hugo Ordoñez MD Cardiology Hugo [...] follow up : O rders: E KG (CPT-04656) BP today: 140/96 Prior BP: 136/92 (02/28/2013) [...] ..... Three times daily Orders: E KG (CPT-55040) BP today: 121/86 Prior BP: 127/88 (10/20/2011) [...] - CNE (03/26/2011) Hugo Ordoñez MD follow u p: [...] at 60%. No significant valvular abnormalities. - FABBY (03/26/2011) Hugo Ordoñez MD follow up: B [...] MD : O rders: C omplete Echo (CPT-24551) S tress Test - Adenosine (12338) Hugo Ordoñez MD : O rders: C omplete Echo (CPT-33283) Hugo Ordoñez MD : O rders: S tress Test - Adenosine (32090) E vent Recorder (*) BP today: 86/60 Prior BP: / () Hugo Ordoñez MD Date Name X-Ray, Chest 2 View URINALYSIS, COMPLETE W/REFLEX TO CULTURE COMPREHENSIVE METABO LIC PANEL W/EGFR CBC (INCLUDES DIFF/P LT) PARTIAL THROMBOPLAST IN TIME, ACTIVATED PROTHROMBIN TIME WIT H INR EKG MARYSOL - [facility] MARYSOL - [facility] [...] Ordoñez MD complete d EKG Jean Claude Calixto DO comple jaden EKG Jean Claude Calixto DO comple jaden EKG Jean Claude Calixto DO comple jaden EKG Hugo Ordoñez MD complete d EKG ulius Claudia BRYANT comp leted EKG Hugo Ordoñez MD complete d Schedule Followup Tab Taylor MD in 1 yea r completed EKG ulius Claudia BRYANT comp leted each additional 20 minutes, up to 2 times Hugo Ordoñez MD completed EKG ulius Claudia BRYANT comp leted Protime Arpit Le MD complete d EKG ulius [place] comp leted EKG ulius Claudia BRYANT comp leted EKG ulius [place] comp leted EKG Hugo Ordoñez MD complete d EKG ulius Claudia BRYANT comp leted EKG ulius Claudia BRYANT comp leted 6 minute walk test Tab Taylor MD completed EKG ulius Claudia BRYANT comp leted Holter, 24 or 48 Hugo Ordoñez MD co mpleted EKG Hugo Ordoñez MD complete d EKG Hugo Ordoñez MD complete d Mobile Cardiac Telem etry - Tech Tab Taylor MD completed Mobile Cardiac Telem etry - Prof Tab Taylor MD completed EKG ulius Claudia BRYANT comp leted Protime Yonathan Bernard MD complet ed Schedule Followup Tab Taylor MD in 6 mo completed Mobile Cardiac Telem etry - Tech Hugo Ordoñez MD completed Mobile Cardiac Telem etry - Prof Hugo Ordoñez MD completed EKG ulius Claudia BRYANT comp leted Stress EKG Yonathan Bernard MD complet ed Regadenoson, 4 units Yonathan Bernard MD completed Cardiolite, 2 units Yonathan Bernard MD completed SPECT Images Yonathan Bernard MD compl eted EKG Hugo Ordoñez MD complete d SNOMED-CT: 487774152425876 Current Medications Documented Hugo Ordoñez MD completed SNOMED-CT: 916174923122132 Current Medications Documented Hugo Ordoñez MD completed EKG Rodo Berg MD comp leted SNOMED-CT: 709923446012421 Current Medications Documented Rodo Berg MD completed EKG Rood Berg MD comp leted SNOMED-CT: 257065504162998 Current Medications Documented Rodo Berg MD completed SNOMED-CT: 327110128805965 Current Medications Documented Hugo Ordoñez MD completed EKG Hugo Ordoñez MD complete d SNOMED-CT: 969157568065552 Current Medications Documented Hugo Ordoñez MD completed EKG Rodo Berg MD comp leted SNOMED-CT: 497921867450061 Current Medications Documented Rodo Berg MD completed SNOMED-CT: 903596940740012 Current Medications Documented Hugo Ordoñez MD completed Event Monitor Luis M Pagan completed Stress EKG Yonathan Bernard MD complet ed Regadenoson, 4 units Yonathan Bernard MD completed Cardiolite, 2 units Yonathan Bernard MD completed SPECT Images Yonathan Bernard MD compl eted SNOMED-CT: 602668002417067 Current Medications Documented Hugo Ordoñez MD completed Ambulatory BP Genaro Jane MD comp leted Ambulatory BP Genaro Jane MD comp leted EKG Genaro Jane MD complet ed SNOMED-CT: 344757432841550 Current Medications Documented Genaro Jane MD completed LISSETTE Ordoñez MD complete d SNOMED-CT: 619645632917218 Current Medications Documented Hugo Ordoñez MD completed LISSETTE Ordoñez MD complete d LISSETTE Ordoñez MD complete d
--- OUTSIDE RECORDS SUMMARY | 2024-09-30 12:28 | XMS_ITS | Encounter Summary ---
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 Name Role Phone Tom Paz MD Primary Care Provider + [phone] Tab Taylor MD Unavailable [phone] Favian Caceres MD Unavailable [phone] Reason for Visit * Reason Onset Date Comments Scheduling Appointments 04/15/2024 Schedule patient for Imaging Genicular RFA Right (76220) and 1m follow Encounter Details Date Type Department Care Team (Late st Contact Info) Description 04/15/2024 Telephone [facility] [address] [address], [address] [place] [address] Dougie Lord MD [address] [address] Scheduling Appointments (Schedule patient for Imaging Genicular RFA Right (60047) and 1m follow ) Social History Tobacco Use Types Packs/Day Years Used Date Smoking Tobacco: Never Passive Smoke Exposure: Past Smokeless Tobacco: Never Alcohol Use Standard Drinks/Week Comments No 0 (1 standard drink = 0.6 oz pur e alcohol) [facility] Utilities Answer Date Recorded In the past 12 months has [employer], gas, oil, or water company threatened [...] How often do you attend chur or uatsdin services? More than 4 times per year 02/11/2024 Do you belong to any clubs o r organizations such as synagogue groups, unions, fraternal or athletic groups, or [...] place to sleep or slept in a senior care (including now)? No 11/02/2023 Housing Stability Vital Sign Answer Thang e Recorded In the last 12 months, was t here a time when you were not able to pay the mortgage or rent on time? No 02/11/2024 In the past 12 months, how m any times have you moved where you were living? 0 02/11/2024 At any time in the past 12 m [facility], were you homeless or living in a senior care (including now)? No 02/11/2024 Personal Safety Answer Date Recorded Have you ever been in or are you currently in a harmful physical or emotional relationship or is someone making you feel afraid or unsafe? 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
--- OUTSIDE RECORDS SUMMARY | 2024-09-30 12:28 | XMS_ITS | Clinical Summary ---
Author Organization [facility] al Address [address] [place] [address] Care Team Providers Care Hot Air Furnace Installer Repairer Name Role Phone Tom Paz MD Primary Care Provider + [phone] Tab Taylor MD Unavailable [phone] Favian Caceres MD Unavailable [phone] Allergies Active Allergy Reactions Criticality Noted Date [...] - blisters Etanercept Itching Low 02/24/2022 Gum [place] Unknown 05/12/2023 Gum Rntfcm-Iywscy-Jyzk-Alcoho l Blisters,Rash High 12/17/2021 Mastisol - blisters [...] 02/07/2021 Assessment & Plan (07/28/2024 11:19 AM WIND POWER PROJECT MANAGER): Monitor routine labs while on immunosuppressive medications. [...] QuantGold Assessment & Plan (09/22/2023 12:26 PM WIND POWER PROJECT MANAGER): Monitor routine labs while on immunosuppressive medications. [...] QuantGold Assessment & Plan (09/11/2022 12:48 PM WIND POWER PROJECT MANAGER): Monitor routine labs while on immunosuppressive medications. Recent 08/20 labs stable. 06/2020: Neg Hep B/C 03/2021: Neg QuantGold Assessment & Plan (07/01/2022 9:25 AM WIND POWER PROJECT MANAGER): Monitor routine labs while on immunosuppressive medications. [...] QuantGold Assessment & Plan (08/19/2021 2:31 PM WIND POWER PROJECT MANAGER): Monitor routine labs while on immunosuppressive medications. [...] Hospitalized for total of 8 days, at [facility] and then [facility]. Had CT brain/neck angio that were unremarkable. [...] Hospitalized for total of 8 days, at [facility] and then [facility]. Had CT brain/neck angio that were unremarkable. [...] 07/24/2020 Assessment & Plan (07/24/2020 12:34 PM WIND POWER PROJECT MANAGER): Her greatest pain complaint at this time [...] 07/24/2020 Assessment & Plan (07/01/2022 2:12 PM WIND POWER PROJECT MANAGER): Self weaned off Cymbalta 2 days ago [...] exercise. Assessment & Plan (08/27/2020 2:41 PM WIND POWER PROJECT MANAGER): Fatigue with sensation of pain all over [...] exercise. Assessment & Plan (07/24/2020 12:36 PM WIND POWER PROJECT MANAGER): Fatigue with sensation of pain all over [...] PT. Assessment & Plan (08/28/2020 12:26 PM WIND POWER PROJECT MANAGER): Multifocal OA (hands and hips) per recent xrays. Continue Tylenol 500 mg qid. Continue PT. Assessment & Plan (07/24/2020 12:41 PM WIND POWER PROJECT MANAGER): Multifocal OA (hands and hips) per recent [...] thickening. Assessment & Plan (07/28/2024 11:22 AM WIND POWER PROJECT MANAGER): Off MTX (oral ulcers/hair thinning). Remains on [...] osteopenia with parts counterman use of steroids. She was strongly encouraged [...] needed. Assessment & Plan (09/22/2023 12:32 PM WIND POWER PROJECT MANAGER): A 09/2022 repeat left hand/wrist US demonstrated [...] needed. Assessment & Plan (09/11/2022 12:48 PM WIND POWER PROJECT MANAGER): Continued 15mg MTX weekly and monthly Simponi [...] Chan. Assessment & Plan (08/06/2022 9:00 PM WIND POWER PROJECT MANAGER): Has continued 15mg MTX weekly as well [...] we have no access to them through [facility]. She already had an OV scheduled for 09/02 - will re-evaluate joints at that time and consider repeat hand US if synovitis is absent/minimal on exam but she is still noting pain -to evaluate for underlying inflammation. She may require change in biologic medication. Assessment & Plan (07/01/2022 2:09 PM WIND POWER PROJECT MANAGER): CDAI 37, high Off Enbrel due to ISRs. Continued MTX and Simponi injections. Noted improvement after prednisone taper at last visit. Joints were feeling good until a few weeks ago when she returned from a trip to [place] an self weaned off Cymbalta. Now with [...] She is to follow up with her truck cleaner soon due to low BP following her [...] increase blood glucose, glaucoma and osteopenia with care home use of steroids. Continue 15mg MTX weekly [...] Chan. Assessment & Plan (08/19/2021 9:00 PM WIND POWER PROJECT MANAGER): CDAI 25. On 15mg MTX weekly but has only taken 3 Enbrel injections so far. Just completed a medrol dose pack from her truck cleaner due to inflammation around her heart (pericarditis?). [...] incontinence. Has followed up with PCP and truck cleaner - started Ubrelvy for JACKSON and truck cleaner is to adjust her pacemaker on 05/23. [...] the ). A letter was provided for [facility] to allow Humira to be brought as a carry on. She may call [facility] to schedule injection with a nurse ambassador [...] needed. Assessment & Plan (08/28/2020 12:26 PM WIND POWER PROJECT MANAGER): Our workup showed an JANNET 1:160 but [...] needed. Assessment & Plan (07/24/2020 12:33 PM WIND POWER PROJECT MANAGER): 54yoF referred for evaluation due to +JANNET [...] reassess. Assessment & Plan (07/06/2020 4:49 PM WIND POWER PROJECT MANAGER): 54yoF referred for evaluation due to +JANNET [...] (12/13/2019): Added automatically from request for surgery [id number] SVT (supraventricular tachycardia) 12/13/2019 Overview (12/13/2019): Added automatically from request for surgery [id number] A-fib 11/24/2019 Overview (11/24/2019): Added automatically from request for surgery [id number] Laryngopharyngeal reflux (LPR) 08/04/2018 Assessment & Plan (10/20/2018 12:26 PM CDT): No longer taking the omeprazole and ranitidine as prescribed. Patient is no longer experiencing any coughing, sinonasal or throat symptoms. Assessment & Plan (08/04/2018 1:17 PM WIND POWER PROJECT MANAGER): Add omeprazole 40 mg Q morning 30 [...] resume. Assessment & Plan (08/04/2018 1:11 PM WIND POWER PROJECT MANAGER): Patient's chronic cough is most likely secondary [...] reactive airway disease contributing to her cough. 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 1 08/28/2014 Deep vein thrombosis (DVT) 06/27/2015 Hyperthyroidism 08/31/2012 Chronic adrenal insufficiency 08/30/2012 Encounters Date Type Department Care Team Description 09/02/2024 Telephone [facility] Dermatology [address] [place] [address] [address] [place] [address] Va Maharaj Request Call Back 08/25/2024 7:24 AM WIND POWER PROJECT MANAGER - 08/25/2024 11:59 PM WIND POWER PROJECT MANAGER Hospital Encounter [facility] Radiology [address] [place] [address] Transient ischemic attack (TIA); Cerebrovascular disease, unspecified; Unspecified visual loss; Presence of cardiac pacemaker Discharge Disposition: Discharge to home or self care 08/25/2024 Orders Only [facility] Radiology [address] [place] [address] Katarzyna Gil, RT 08/23/2024 12:12 PM WIND POWER PROJECT MANAGER - 08/23/2024 11:59 PM WIND POWER PROJECT MANAGER Hospital Encounter [facility] Rad[facility] [address] [place] [address] Pacemaker reprogramming/check ; Complete heart block (HCC) Discharge Disposition: Discharge to home or self care 08/23/2024 11:30 AM WIND POWER PROJECT MANAGER Office Visit [facility] Cardiology [address] [place] [address] Medicine 8th [place] [address] [place] [address] Elise Ibarra, SONIA Pacemaker reprogramming/check (Primary Dx); Complete heart block (HCC) 08/23/2024 11:00 AM WIND POWER PROJECT MANAGER Ancillary Procedure [facility] Cardiology [address] [place] [address] Medicine 8th [place] [address] [place] [address] Pacemaker reprogramming/check 08/23/2024 Orders Only [facility] Cardiology [address] [facility] Advanced Medicine 8th [place] [address] [place] [address] Elise Ibarra NP Pacemaker reprogramming/check (Primary Dx) 08/02/2024 1:07 PM WIND POWER PROJECT MANAGER Anesthesia Event [facility] Digestive Disease [place] [address] [facility] [address] [place] [address] Rui Fuller MD McGowan, Jessica Lynn, NP 08/02/2024 12:30 PM WIND POWER PROJECT MANAGER - 08/02/2024 1:30 PM WIND POWER PROJECT MANAGER Surgery [address] [address] Trey Arroyo MD COLON BIOPSY 08/02/2024 11:02 AM WIND POWER PROJECT MANAGER - 08/02/2024 3:29 PM WIND POWER PROJECT MANAGER Hospital Encounter [address] [address] Trey Arroyo MD Dysphagia, unspecified type; Dyspepsia; Diarrhea, unspecified type Discharge Disposition: Discharge to home or self care 07/28/2024 10:30 AM WIND POWER PROJECT MANAGER Office Visit [facility] [address] [place] [phone] Claudia Cristobal PA Seronegative rheumatoid arthritis (HCC) (Primary Dx); Encounter for long-term (current) use of high-risk medication 07/26/2024 Telephone [facility] Specialty Services [address] [place] [address] Sarina Posey RN GI PROCEDURE 7 DAY PRE CALL 07/26/2024 Orders Only [facility] Health Information Management [address] [place] [address] Scanning, Provider 07/14/2024 10:30 AM WIND POWER PROJECT MANAGER Pre-Admission Testing [facility] for Preoperative Assessment and Planning [facility] [address] [place] [address] from Last 3 Months Surgical History Surgery [...] drink = 0.6 oz pur e alcohol) [facility] Utilities Answer Date Recorded In the past 12 months has th [employer], gas, oil, or water Solidarium threatened to shut off services in your home? Yes 02/11/2024 Social Connection and Isolat ion Panel [NHANES] Answer Date Recorded In a typical week, how many times do you talk on the phone with family, friends, or neighbors? Once a week 02/11/2024 How often do you get togethe r with friends or relatives? Once a week 02/11/2024 How often do you attend [facility] or [facility] services? More than 4 times per year 02/11/2024 Do you belong to any clubs o r organizations such as mormon groups, unions, fraternal or athletic groups, or [...] place to sleep or slept in a fci (including now)? No 11/02/2023 Housing Stability Vital Sign Answer Thang e Recorded In the last 12 months, was t here a time when you were not able to pay the mortgage or rent on time? No 02/11/2024 In the past 12 months, how m any times have you moved where you were living? 0 02/11/2024 At any time in the past 12 m [facility], were you homeless or living in a fci (including now)? No 02/11/2024 Personal Safety Answer Date Recorded Have you ever been in or are you currently in a harmful physical or emotional relationship or is someone making you feel afraid or unsafe? Denies 08/02/2024 Comments No Sex and Gender Information Value Date Recorded Sex Assigned at Not on file Legal Sex Female 12:21 AM WIND POWER PROJECT MANAGER Gender Identity Not on file Sexual Orientation Not on file Obstetrics History Last Filed Vital Signs Vital Sign Reading Time Taken Comments Blood Pressure 125/71 08/25/2024 8:38 AM WIND POWER PROJECT MANAGER Pulse 73 08/25/2024 8:38 AM WIND POWER PROJECT MANAGER Temperature 36 C (96.8 F) 08/02/2024 2:20 PM WIND POWER PROJECT MANAGER Respiratory Rate 10 08/02/2024 2:40 PM WIND POWER PROJECT MANAGER Oxygen Saturation 97% 08/25/2024 8:38 AM WIND POWER PROJECT MANAGER Inhaled Oxygen Concentration - - Weight 88.6 kg (195 lb 6.4 oz) 08/23/2024 11:23 AM WIND POWER PROJECT MANAGER Height 172.7 cm (5' 8 ) 08/23/2024 11:23 AM WIND POWER PROJECT MANAGER Body Mass Index 29.71 08/23/2024 11:23 AM WIND POWER PROJECT MANAGER Plan of Treatment Health Maintenance Due Date [...] the likelihood of falling Lifestyle No Hali Brewer, RN Note: Below are four things you [...] on stairs Contact your local community or [facility] for information on exercise, fall prevention programs, or options for improving home safety. Medical Devices Implanted Type Area Analytical Scientist Device Identifier Shelf Expiration Date Model / Serial / Lot Ivc Filter- 7 Implanted:Qty: 1 on 06/09/2007 by Tam Fraser MD IVC Filter N/A: Vena Cava Lead-Spinal Cord Stimulator- 018 Implanted:2017 by Taran Ramirez MD (Quantity not on file) Lead Back [employer] SC-2158- 50 / / Biotronik Ra Lead ([id number])- 019 Implanted:2018 (Quantity not on file) Lead Chest Biotronik SOLIA S 45 [id number] 176 / [id number] / Lead (Rv)-05/23/2021 Implanted:2020 (Quantity not on file) Lead Heart Biot[employer]ik SOLIA S 53 377 177 / [id number] / Biotronik Paceomaker Ariana Rodríguez Dr-T-12/24/2023 Implanted:2023 (Quantity not on file) Pacemaker Chest Wall [employer]ik [id number] / [id number] / Spinal Cord Stimulator- 018 Implanted:Qty: 1 on 08/20/2017 by Taran Ramirez MD Spinal Cord Stimulator N/A: Back [employer] SC-1200 / [id number] / Spinal Cord Stimulator Lead-08/20/2017 Implanted:2017 by Taran Ramirez MD (Quantity not on file) Spinal Cord Stimulator Back [employer] Neuro- [id number] / / Hardware Thoracic-L umbar Spine Loop Recorder Chest Wall Chris V[employer] System Closure Repair Femoral Artery Suture Mediated Perclose Prostyle 20093-97 - [id number] Implanted:Qty: 1 on 02/09/2024 by Morgan Roy MD at [facility] 11/16/2025 [id number] / / [id number] [place] [employer] Percutaneous Transcatheter Amplatzer Amulet 18mm [id number] - [id number] Implanted:Qty: 1 on 02/09/2024 by Morgan Roy MD at [facility] 09/17/2027 9-[id number] / / [id number] Chris Vascular System Closure Repair Femoral Artery Suture Mediated Perclose Prostyle 79196-02 - [id number] Implanted:Qty: 1 on 02/09/2024 by Morgan Roy MD at [facility] 11/16/2025 [id number] / / [id number] [employer] Sling Urinary Incontinence Female Stress Short Desara Blue Sis-Ds01bs - [id number] Implanted:Qty: 1 on 06/28/2024 by Shankar Mak MD at [facility] N/A: Urethra [employer] 01/04/2027 SIS-DS01 BS / / [id number] Explanted Type Area Analytical Scientist Device Identifier Shelf Expiration Date Model / Serial / Lot Biotronik Rv Lead ([id number])-07/04 Implanted:Qty: 1 on 07/04/2019 Explanted:Qty: 1 Lead Chest Biotronik [id number] / / Description:This lead was re placed and left behind per patient on 05/23/21 Biotronik Pacemaker ([id number])-07/04 Implanted:Qty: 1 on 07/04/2019 Explanted:Qty: 1 on 12/24/2023 Pacemaker Left: Chest Biotronik ELUNA 8 KRISTY CARBAJAL / [id number] / [id number] Procedures Procedure Name Priority Date/Time Associated Diagnosis Comments XR SPINE THORACOLUMBAR JUNCT ION 2 OR MORE VIEWS Schedule Routine, Read Routine (OP Routine) 08/25/2024 7:35 AM WIND POWER PROJECT MANAGER Transient ischemic attack (TIA) Cerebrovascular disease, unspecified Unspecified visual loss Presence of cardiac pacemaker XR CHEST PA LATERAL 2 VIEWS Schedule RY, Read RY (Appt Today, Awaiting Results) 08/23/2024 12:16 PM WIND POWER PROJECT MANAGER Pacemaker reprogramming/c heck Complete heart block (HCC) DEVICE CHECK - IN OFFICE Routine 025 10:57 AM WIND POWER PROJECT MANAGER Pacemaker reprogramming/c heck COLONOSCOPY 08/02/2024 1:43 PM WIND POWER PROJECT MANAGER SURGICAL PATHOLOGY Routine 08/02/2024 1:26 PM WIND POWER PROJECT MANAGER Dysphagia, unspecified type Dyspepsia Diarrhea, unspecified type EGD 08/02/2024 1:15 PM WIND POWER PROJECT MANAGER ESOPHAGOGASTRODUODENOSCOPY BIOPSY 08/02/2024 1:12 PM WIND POWER PROJECT MANAGER Dysphagia, unspecified type Dyspepsia Diarrhea, unspecified type COLON BIOPSY 08/02/2024 1:12 PM WIND POWER PROJECT MANAGER Dysphagia, unspecified type Dyspepsia Diarrhea, unspecified type SCAN - OTHER ORDERS 07/26/2024 HEPATITIS C ANTIBODY Routine 07/06/2020 2:58 PM WIND POWER PROJECT MANAGER Polyarthralgia Encounter for screening for other viral diseases from Last 3 Months or Most Recently Relevant to Health Maintenance Results * XR Spine Thoracolumbar Junction 2 or More Views (08/25/2024 7:35 AM WIND POWER PROJECT MANAGER) Anatomical Region Laterality Modality Spine N/A Computed Radiogr aphy 08/25/2024 7:45 AM WIND POWER PROJECT MANAGER Impressions 08/25/2024 7:45 AM WIND POWER PROJECT MANAGER 1. Thoracic stimulator device in place with [...] Nehemias Simons D.O. Narrative 08/25/2024 7:45 AM WIND POWER PROJECT MANAGER EXAMINATION: XR SPINE THORACOLUMBAR JUNCTION 2 OR [...] Electronically signed by: Nehemias Simons D.O. us Tom Stephen Paz MD IMG XR PROCEDURES Final Resu lt * XR Chest Pa Lateral 2 Views (08/23/2024 12:16 PM WIND POWER PROJECT MANAGER) Anatomical Region Laterality Modality Body, Chest N/A Computed Radiogr aphy 08/23/2024 2:08 PM WIND POWER PROJECT MANAGER Impressions 08/23/2024 4:13 PM WIND POWER PROJECT MANAGER FINDINGS/IMPRESSION: Left subclavian approach pacemaker with leads [...] Arpit Mcclelland M.D. Narrative 08/23/2024 4:13 PM WIND POWER PROJECT MANAGER EXAMINATION: XR CHEST PA LATERAL 2 VIEWS [...] it. Electronically signed by: Arpit Mcclelland M.D. us Elise Ibarra NP IMG XR PROCEDURES Final R esult * DEVICE CHECK - IN OFFICE (08/23/2024 10:57 AM WIND POWER PROJECT MANAGER) Anatomical Region Laterality Modality Other 08/23/2024 2:00 AM WIND POWER PROJECT MANAGER Narrative 08/27/2024 9:33 PM WIND POWER PROJECT MANAGER Interpretation Summary: Battery and Leads (BL) Normal parameters noted on battery and lead(s) --- Estimate 10 years to TEREZA Procedure Note Leonardo Grimm MD - 08/27/2024 Interpretation Summary: Battery and Leads (BL) Normal parameters noted on battery and lead(s) --- Estimate 10 years toERI us Elise Ibarra NP CV CARDIAC SERVICES [facility] Final Result * Colonoscopy (08/02/2024 1:43 PM WIND POWER PROJECT MANAGER) Anatomical Region Laterality Modality Other Narrative Procedure Note Trey Arroyo MD - 08/02/2024 1:43 PM CST [facility] ENDOS[facility] Patient Name: Naye Cantu Procedure Date: 08/02/2024 1:43 PM Date of : 1965 Admit Type: Outpatient Age: 58 Gender: Female Attending MD: Trey Arroyo M.D. Room: [facility] ENDOSCOPY ROOM 8 Note Status: Finalized [...] The scope was passed under direct vision.The [id number] endoscope was introduced through the anus and advanced to the terminal ileum. The colonoscopy was performed without difficulty. The patient tolerated the procedure well. The qualityof the bowel preparation was evaluated using the BBPS ([place] Bowel Preparation Scale) with scores of:Right Colon [...] During normal business hours - Please call [facility] Coordinator: [phone] After hours, evening, nights, weekends and holidays- Please call the hospital leaf sucker operator at and ask for the GI fellow refrigeration plant operator. Attending Participation: I was present and participated during the entire procedure, including non-patrick portions. Electronically signed by Trey Arroyo MD Trey Arroyo M.D. 08/02/2024 2:08:56 PM . Number of Addenda: 0 Note Initiated On: 08/02/2024 1:43 PM Trey Arroyo MD ENDOSCOPY PROCEDURES Final Result * Surgical pathology (08/02/2024 1:26 PM WIND POWER PROJECT MANAGER) Tissue (Duodenum, Biopsy) 08/02/2024 1:26 PM WIND POWER PROJECT MANAGER Tissue (Gastric/Stomach biopsy) 08/02/2024 1:29 PM WIND POWER PROJECT MANAGER Tissue (Esophageal biopsy) 08/02/2024 1:38 PM WIND POWER PROJECT MANAGER Tissue (Colon, Biopsy) 08/02/2024 2:02 PM WIND POWER PROJECT MANAGER Narrative PATHOLOGY [facility] - 08/05/2024 10:16 AM WIND POWER PROJECT MANAGER EPIC results best viewed via link to PDF [facility] [place] [address] Note to Patients: This report may contain [...] Gender: F : 1965 (Age: 58) Address: [address] [place], [place] [address] [facility] #: [id number] Taken:08/02/2024 Received:08/02/2024 Reported: 08/05/2024 Patient Type: [facility] Service: Gastroenterology Location: Physician(s): Pb Steward M.D. Diagnosis: A. Small bowel, duodenum, biopsy [...] Surgical Pathology and Flow Cytometry Departments at [facility] as part of an ongoing quality liaison program and in compliance with federally mandated [...] Surgical Pathology and Flow Cytometry Departments of [facility]. It has not been cleared or approved by the U. S. Food and Drug Administration. IMAGES AND SCANNED DOCUMENTS, IF INCLUDED, ONLY VIEWABLE IN PDF VERSION OF REPORT Trey Arroyo MD LAB PATHOLOGY ORDERAB LES Final Result PATHOLOGY [facility] [address] [facility], [place] [phone] * EGD (08/02/2024 1:15 PM WIND POWER PROJECT MANAGER) Anatomical Region Laterality Modality Other Narrative Procedure Note Trey Arroyo MD - 08/02/2024 1:15 PM CST [facility] Patient Name: Naye Cantu Procedure Date: 08/02/2024 1:15 PM Date of : 1965 Admit Type: Outpatient Age: 58 Gender: Female Attending MD: Trey Arroyo M.D. Room: [facility] ENDOSCOPY ROOM 8 Note Status: Addendum [...] passed under direct vision. The GIF [id number] endoscope was introducedthrough the mouth, and advanced [...] business hours - Please call theNurse Coordinator: [phone] After hours, evening, nights, weekends and holidays- Please call the hospital leaf sucker operator at and ask for the GI fellow refrigeration plant operator. Attending Participation: I personally performed the entire [...] Final * SCAN - OTHER ORDERS (07/26/2024) Provider Scanning Final Result * Hepatitis C antibody (07/06/2020 2:58 PM WIND POWER PROJECT MANAGER) Hep C Ab NON-REACTI VE NON-REACT GIA [facility] SIGNAL TO CUT-OFF 0.02 <1.00 [facility] Comment: HCV antibody was non-reactive. There is no laboratory evidence of HCV infection. In most cases, no further action is required. However, if recent HCV exposure is suspected, a test for HCV RNA (test code 08787) is suggested. For additional information please refer to http://education.Flashtalking/faq/FQI10a2 (This link is being provided for informational/ educational purposes only.) Blood specimen (specimen) 07/06/2020 2:58 PM WIND POWER PROJECT MANAGER 07/06/2020 3:00 PM WIND POWER PROJECT MANAGER Narrative [facility] - 07/11/2020 9:33 PM WIND POWER PROJECT MANAGER PATIENT UNABLE TO VOID; ADVISED TO RETURN FOR COLLECTION. Olga MONTES LAB MICROBIOLOGY - GENERA L ORDERABLES Final Result [facility] [id number] [phone] from Last 3 Months or Most Recently Relevant to Health Maintenance Insurance MEDICARE IDPA MEDICARE IDRI MEDICARE [facility] MEDICARE MEDICARE IDPA Advance Directives For more information, please contact: [phone] * Full Code (Latest Code Status on [...] 6:47 AM 04/25/2020 10:09 PM Care Teams Hot Air Furnace Installer Repairer Relationship Specialty Start Date End Date Tom Paz MD PCP - General 09/09/16 Tab Taylor MD [address] [place] [address] Consulting Physician Cardiology 01/03/20 Favian Caceres MD [address] [place] [address] Consulting Physician Rheumatology 08/28/23
--- OUTSIDE RECORDS SUMMARY | 2024-09-30 12:28 | XMS_ITS | Continuity of Care Document ---
Author Organization [facility] Address [address] [address] [facility] [address] [place] [address] Phone Care Team Providers Care Hospice Nurse Name Role Phone Nayely MAURICIO OD, Denise [...] EST REFRACTION Medicare OFFICE/OUTPATIENT VISIT, EST REFRACTION [facility] OFFICE/OUTPATIENT VISIT, EST OFFICE/OUTPATIENT VISIT, EST REFRACTION [facility] OFFICE/OUTPATIENT VISIT, EST REFRACTION MEDICARE OFFICE/OUTPATIENT VISIT, [...] VISIT, EST [facility], [address] [place] [address], [id number], tel:[phone] OPH CONSULT [facility] flash of light OS (chief complaint) Age-related nuclear cataract, bilateralTea r film insufficienc y of bilateral lacrimal glandsOther vitreous opacities, bilateral Feb-0 - 5 Derheimer OD Denise. [address], [address], [place], [place], [id number], [place]. tel:[phone] Referring Provider: Tom Sapp, [address], [place], [address]. tel:[phone] OFFICE/OUTPA TIENT VISIT, EST [facility], [address] [place] [address], [place], [place], [id number], tel:[phone] OPH CONSULT [facility] Pain OS (chief complaint) Left eye painAge-rela jaden nuclear cataract, bilateralOth er vitreous opacities, bilateralTea r film insufficienc y of bilateral lacrimal glands Apr-0 - 4 Krishnasamy Anthony. [address], [address], [place], [place], [id number], [place]. tel:[phone] Referring Provider: Tom Sapp, [address] [place], [place], [address]. tel:[phone] OFFICE/OUTPA TIENT VISIT, EST [facility], [address] [place] [address], [place], [place], [id number], [place] tel:[phone] OPH CONSULT [facility] blurry vision (chief complaint) Age-related nuclear cataract, bilateralTea r film insufficienc y of bilateral lacrimal glandsOther vitreous opacities, bilateralDip lopiaHyperme tropia, bilateral Oct-2 -202 3 Krishnasamy Anthony. [address], [address], [place], [place], [id number], . tel:[phone] Referring Provider: Tom Sapp, [address], [place], [address]. tel:[phone] OFFICE/OUTPA TIENT VISIT, EST [facility], [address] [place] [address], [id number], tel:[phone] OPH CONSULT [facility] blurry VA (chief complaint) Tear film insufficienc y of bilateral lacrimal glandsOther vitreous opacities, bilateralAge -related nuclear cataract, bilateralDip lopiaHyperme tropia, bilateral Mar-1 0-202 2 Krishnasamy Anthony. [address] , [address], [place], [place], [id number], [place]. tel:[phone] Referring Provider: Tom Sapp, [address], [place], [address]. tel:[phone] OFFICE/OUTPA TIENT VISIT, EST [facility], [address] [place] [address], [id number], [place] tel:[phone] OPH CONSULT [facility] shingles (chief complaint) Herpes zoster without complication Tear film insufficienc y of bilateral lacrimal glands Apr- 1 Krishnasamy Anthony. [address] , [address], [place], [place], [id number], [place]. tel:[phone] Referring Provider: Tom Sapp, [address], [place], [address]. tel:[phone] OFFICE/OUTPA TIENT VISIT, EST [facility], [address] [place] [address], [id number], [place] tel:[phone] OPH CONSULT [facility] blurry (chief complaint) DiplopiaAge- related nuclear cataract, bilateralTea r film insufficienc y of bilateral lacrimal glandsOther vitreous opacities, bilateralHyp ermetropia, bilateral Nov- 9 Krishnasamy Anthony. [address], [address], [place], [id number], . tel:[phone] Referring Provider: Anthony Gutierrez [address], [place], [place], [id number]. tel:[phone] OFFICE/OUTPA TIENT VISIT, EST [facility], [address] [place] [address], [id number], tel:[phone] OPH CONSULT [facility] blurry vision (chief complaint) Tear film insufficienc y of bilateral lacrimal glandsOther vitreous opacities, bilateralDip lopiaHyperme tropia of both eyes Oct-3 0 8 Brenda Cruz. [address], [address], [place], [place], [id number], . tel:[phone] Referring Provider: Anthony Gutierrez [address] [place] [address], [id number]. tel:[phone] OFFICE/OUTPA TIENT VISIT, EST [facility], [address] [place] [address], [id number], [place] tel:[phone] OPH CONSULT [facility] blurry vision (chief complaint)dr y eyes (chief complaint) DiplopiaOthe r vitreous opacities, bilateralTea r film insufficienc y of bilateral lacrimal glandsHyperm etropia of both eyes 7 Brenda Cruz. [address], [address], [id number], [place]. tel:[phone] Referring Provider: Anthony Gutierrez, [address], [id number]. tel:[phone] OFFICE/OUTPA TIENT VISIT, EST [facility], [address] [place] [address], [id number], [place] tel:[phone] OPH CONSULT [facility] blurry vision (chief complaint) Reflex sympathetic dystrophy, unspecifiedT ear film insufficienc y, unspecifiedH ypermetropia of both eyesOther vitreous opacities, bilateralDip lopia Oct-0 5 6 Krishnasnina Garyhil. [address], [address], [place], [place], [id number], [place]. tel:[phone] Referring Provider: Anthony Gutierrez, [address] [place] [address], [id number]. tel:[phone] OFFICE/OUTPA TIENT VISIT, NEW [facility], [address] [place] [address], [id number], [place] tel:[phone] Oph Consult [facility] Office blurry vision (chief complaint) Hypermetropi aTear film insufficienc y, unspecifiedO ther vitreous opacitiesDip lopiaReflex sympathetic dystrophy, unspecified Sep-2 5 Krishnasnina Anthony. [address], [address], [address], [place]. tel:[phone] Referring Provider: Anthony Gutierrez, [address] [place] [address], [id number]. tel:[phone] OFFICE/OUTPA TIENT VISIT, EST [facility], [address] [place] [address], [id number], [place] tel:[phone] Oph Consult [facility] Office pain (chief complaint)bl urry vision (chief complaint)ir ritation (chief complaint) Tear film insufficienc y, unspecifiedR eflex sympathetic dystrophy, unspecifiedO ther vitreous opacitiesHyp ermetropiaDi plopia Aug-0 4 Krishnasamy Anthony. [address], [address], [address], [place]. tel:[phone] Referring Provider: Anthony Gutierrez, [address], [id number]. tel:[phone] OFFICE/OUTPA TIENT VISIT, EST [facility], [address] [place] [address], [id number], [place] tel:[phone] Oph Consult [facility] flashes at night (chief complaint) Other vitreous opacitiesTea r film insufficienc y, unspecifiedD iplopiaHyper metropia Sep- 3 Krishnasamy Anthony. [address], [address], [place], [place], [address], [place]. tel:[phone] Referring Provider: Anthony Gutierrez, [address], [place], [place], [address]. tel:[phone] OFFICE/OUTPA TIENT VISIT, EST [facility], [address] [place] [address], [id number], [place] tel:[phone] OPH CONSULT [facility] double va occasionally (chief complaint) Tear film insufficienc y, unspecifiedR eflex sympathetic dystrophy, unspecifiedD iplopiaHyper metropia Mar-2 3 Krishmargaret Anthony. [address], [address], [place], [place], [address], [place]. tel:[phone] Referring Provider: Anthony Gutierrez, [address], [place], [place], [address]. tel:[phone] OFFICE/OUTPA TIENT VISIT, EST [facility], [address] [place] [address], [id number], [place] tel:[phone] OPH CONSULT [facility] blurry vision (chief complaint) Tear film insufficienc y, unspecifiedD iplopia Sep-2 2 Krishnasamy Anthony. [address], [address], [address], [place]. tel:[phone] Referring Provider: Anthony Gutierrez, [address], [address]. tel:[phone] OFFICE/OUTPA TIENT VISIT, NEW [facility], [address] [place] [address], [place], [place], [id number], [place] tel:[phone] OPH CONSULT [facility] lost glasses (chief complaint) DiplopiaHead acheHypermet ropia 1 Brenda Cruz. [address], [address], [place], [place], [address], [place]. tel:[phone] Family History Family Member Type Diagnosis Age At Onset Son Problem (finding) Lazy eye Payers Payer name Insurance type Covered green party ID Authoriza tion(s) [place] [id number] [place] [id number] Social History Type Description Quantity Date Captured [...] D&N. Pt saw Dr Nai Sotelo at [facility] for prism. Pt did not update [...] to Hyper metropia, bilateral Impression/Plan Related to Age-r elated nuclear cataract, bilateral Impression/Plan Related to Tear film insufficiency of bilateral lacrimal glands Impression/Plan Related to Other vitreous opacities, bilateral Impression/Plan Related to Herpe s zoster [...] does not include the prism. Check with [facility] orthoptics regarding prism OU Related to [...] due to dry eye Related to Diplopia Tear film insufficie ncy, unspecified OU - [...] 080. Patient will see Ms. Oscar Richardson (science interpreter) @ [facility] for prisms/glasses. Related to Headaches Reflex [...] 082. Patient will see Ms. Oscar Richardson (science interpreter) @ [facility] 12/24/2010 for motility exam and measurements [...]
--- OUTSIDE RECORDS SUMMARY | 2024-09-30 12:28 | XMS_ITS | Encounter Summary ---
Author Organization [facility] Address [address] [place] [address] Care Team Providers Care Door Machine Operator Name Role Phone Tom Paz MD Primary Care Provider [phone] Encounter Details Date Type Department Care Team (Late st Contact Info) Description 09/27/2024 External Device Data [facility] ABSTRACTION Provider, Abstract [...] on filedocumented in this encounter Care Teams Door Machine Operator Relationship Specialty Start Date End Date Tom Paz MD [address] [place] [id number] PCP - General Family Practice 01/28/22 documented as of this encounter
--- OUTSIDE RECORDS SUMMARY | 2024-09-30 12:28 | XMS_ITS | Encounter Summary ---
Author Organization [facility] Address [address] [place] [address] Care Team Providers Care Food Checker Name Role Phone Tom Paz MD Primary Care Provider [phone] Tab Taylor MD Unavailable [phone] Favian Caceres MD Unavailable [phone] Encounter Details Date Type Department Care Team (Late st Contact Info) Description 02/11/2024 Documentation [facility] Case Management [address] [place], [place] [id number] Gaviota Benz, RN Social History Tobacco Use Types Packs/Day Years Used Date Smoking Tobacco: Never Passive Smoke Exposure: Past Smokeless Tobacco: Never Alcohol Use Standard Drinks/Week Comments No 0 (1 standard drink = 0.6 oz pur e alcohol) [facility] Utilities Answer Date Recorded In the past 12 months has [employer], gas, oil, or water [email or web address] threatened to shut off services in your [...] often do you attend chur ch or sikhism services? More than 4 times per year 02/11/2024 Do you belong to any clubs o r organizations such as mu-ism groups, unions, fraternal or athletic groups, or [...] to sleep or slept in a senior living (including now)? No 11/02/2023 Housing Stability Vital Sign Answer Thang e Recorded In the last 12 months, was t here a time when you were not able to pay the mortgage or rent on time? No 02/11/2024 In the past 12 months, how m any times have you moved where you were living? 0 02/11/2024 At any time in the past [address] [facility], were you homeless or living in a senior living (including now)? No 02/11/2024 Personal Safety Answer Date Recorded Have you ever been in or are you currently in a harmful physical or emotional relationship or is someone making you feel afraid or unsafe? 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 Gender Identity Not on file Sexual Orientation [...] and IDPA Prescription Coverage: Yes Pharmacy: [id number] [place], [place] - [address] [facility] [address] [facility] [address] [id number] [place] [address] [facility] [address] [facility] - [place], [place] - [address] [facility] [address] [facility] [address] [facility] - [place], [place] - [address] [facility] [address] [facility] [address] Primary Care Provider: Tom Paz MD Prior to Admission: Functional Status: Minimal assist with ADLs Primary Caregiver: Private caregiver Support System: Children, Friends/neighbors (Son: Porter Serrano [phone]/Friend: Federico [phone]) Home Care Services: Yes 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 2. Return patient to optimal level of self-care post discharge. 3. Computer System Technician will follow for Discharge Planning - interventions as needed 4. Anticipated level of care at discharge 5. Planned Discharge Disposition SONALI Brothers, RN manager requirements [phone] documented in this encounter Plan of Treatment [...] the likelihood of falling Lifestyle No Hali Breewr RN Note: Below are four things you [...] on stairs Contact your local community or [facility] for information on exercise, fall prevention programs, or options for improving home safety. documented as of this encounter Visit Diagnoses Not on filedocumented in this encounter Care Teams Food Checker Relationship Specialty Start Date End Date Tom Paz MD PCP - General 09/09/16 Tab Taylor MD [address] [place] [address] Consulting Physician Cardiology 01/03/20 Favian Caceres MD [address] [place] [address] Consulting Physician Rheumatology 08/28/23 documented as of this encounter
--- OUTSIDE RECORDS SUMMARY | 2024-09-30 12:29 | XMS_ITS | Patient Health Record ---
Author Organization [facility] Address [address] [place] [address] Care Team Providers Care Gas Meter Repairer Name Role Phone Luis Newsome Primary Care Provider Allergies Allergen (clinical drug ingredient) Drug/Non Drug Allergy documented on EMR Reaction Allergy Type Onset Date Status diphenhydramine Benadryl Unknown Drug Allergy A ctive Biaxin Unknown Drug Allergy Active Ceftin Unknown Drug Allergy Active Darvocet A500 Unknown Drug Allergy Act antionette Darvon Unknown Drug Allergy Active imipramine Imipramine HCl Unknown Drug Allergy A ctive propranolol Inderal LA Unknown Drug Allergy Acti ve meclizine Meclizine HCl Unknown Drug Allergy Act antionette acetaminophen / oxycodone Percocet Unknown Drug Allergy Active Compazine Unknown Drug Allergy Active Tylenol #3 Unknown Drug Allergy Active Penicillin Unknown Drug Allergy Active Reason For Referral No Information Medications Medication SIG (Take, Route, Frequency, Duration) Notes Start Date End Date Status Methotrexate Sodium Active Metoprolol Tartrate Active Montelukast Sodium A ctive Promethazine HCl Act antionette Azelastine & Fluticasone 137 & 50 MCG/ACT Nasally Active Buprenorphine HCl Ac tive DULoxetine HCl Activ e EpiPen Active Folic Acid Active hydrOXYzine HCl Acti ve Sucralfate Active rOPINIRole HCl Activ e Albuterol Active Rosuvastatin Calcium Active Aspirin Active Diclofenac Sodium Ac tive Problems Problem Type SNOMED Code ICD Code Onset Dates Problem Status W/U Status Risk Notes Problem Fear of medical treatment (495935219) Fear of injections and transfusions (F40.231) Active confirmed Problem Localized, primary osteoarthritis of the pelvic region and thigh (200910395) Unilateral primary osteoarthritis, 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) Active confirmed Problem Localized, primary osteoarthritis of the pelvic region and thigh (006560622) Unilateral primary osteoarthritis, left hip (M16.12) Active confirmed Problem Solitary sacroiliitis (553772914) Sacroiliitis, not elsewhere classified (M46.1) Active confirmed Problem Cervical radiculopathy (80882221) Radiculopathy, cervical region (M54.12) Active confirmed Problem Cervical radiculopathy (97004436) Radiculopathy, cervicothoracic region (M54.13) Active confirmed Problem Lumbosacral radiculopathy (4592155) Radiculopathy, lumbosacral region (M54.17) Active confirmed Plan Of Treatment No Information Insurance Providers Payer Name Payer Address Payer Phone Subscriber Number Group Number Insured Name Patient Relationship to Insured Coverage Start Date Coverage End Date MEDICARE SERVICES [address] [address] [place] [phone] [id number] Naye Hart Self - patient is the insured 0 IPA [address] [address] [place] [address] [id number] Naye Hart Self - patient is the insured 7 Medical (General) History Medical History History ICD Code Tachicardia RSD Fibromyalgia Osteoarthritis Nerve Damage Diverticulosis Mononucleosis A-Fib SVT Surgical History Surgery Date(Month/Year) Dnc Nova Sure 06/2013 Spinal Cord Stimulator Revision 07/2013 Right Knee Surgery 02/2014 back surery 06/2014 Hernia Surgery 2017 Heart ablation 2019 pacemaker 2019 S1-l3 2018
--- OUTSIDE RECORDS SUMMARY | 2024-09-30 12:29 | XMS_ITS | Clinical Summary ---
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
--- OUTSIDE RECORDS SUMMARY | 2024-09-30 12:29 | XMS_ITS | Clinical Summary ---
Author Organization [facility] Address [address] [place] [address] Care Team Providers Care Airveyor Operator Name Role Phone Tom Paz MD Primary Care Provider [phone] Allergies Active Allergy Reactions Criticality Noted Date [...] blisters Etanercept Swelling Low 12/09/2023 Embrel Gum Zlohxl-Afoszp-Pwce-Alcoho l Rash Low 12/09/2023 Mastisol - blisters [...] Encounters Date Type Department Care Team Description 09/27/2024 External Device Data [facility] ABSTRACTION Provider, Abstract 09/27/2024 External Device Data [facility] ABSTRACTION Provider, Abstract 09/26/2024 External Device Data [facility] ABSTRACTION Provider, Abstract 09/24/2024 External Device Data [facility] ABSTRACTION Provider, Abstract 09/23/2024 External Device Data [facility] ABSTRACTION Provider, Abstract 09/20/2024 External Device Data [facility] ABSTRACTION Provider, [...] this topic Medical Devices Implanted Type Area Chronometer Tester Device Identifier Shelf Expiration Date Model / Serial / Lot Tyrx Antibacterial Envelope Med [id number] - [id number] Implanted:Qty: 1 on 12/24/2023 at [facility] Mesh Left: Chest [employer]- CARD RHYTHM MGMT 10/01/2024 [id number] / / [id number] Neuro Stimulator Neuro Stimulator [employer] SC-1200 / / Description:leads: SC- Need lead numbers Dc Ppm Gen Implanted:Qty: 1 on 12/24/2023 by Burton Forbes MD at [facility] N/A: Chest Wall [id number] / [id number] 90 / Explanted Type Area Chronometer Tester Device Identifier Shelf Expiration Date Model / Serial / Lot Dc Eluna 8 Ppm Gen Explanted:Qty: 1 on 12/24/2023 by Burton Forbes MD at [facility] Pacemaker Chest Wall [employer] ELUNA 8 KRISTY / [id number] / Description:Implant date: Per Biotronik Rep - NOT MRI safe (extra cap lead -ABANDONED LEAD - NO MRI -lizandro 08/14/23 [address] [place] [address] MEDICARE PART A AND B [facility] [place] [id number] [place] [address] MEDICARE PART A AND B [address] [place] [address] RX [employer] RX Member Subscriber Plan / Payer (Ef fective 2023-Present) Name:Naye Hart Relation to Subscriber:Self Name:Naye Hart Subscriber ID:Not on file Payer ID:Not on file Group ID:[id number] Type:RX Commercial Address: [address] Advance Directives For more information, please contact: [phone] Documents on File Type Date Recorded 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 [address] PCP - General Family Practice 01/28/22
--- OUTSIDE RECORDS SUMMARY | 2024-09-30 12:29 | XMS_ITS | Referral Summary ---
Author Organization [facility] al Address [address] [place] [address] Care Team Providers Care Drug And Alcohol Counsellor Name Role Phone Tom Paz MD Primary Care Provider + [phone] Tab Taylor MD Unavailable [phone] Favian Caceres MD Unavailable [phone] Encounters Date Type Department Care Team Description 09/02/2024 Telephone [facility] Dermatology [address] [place] [address] [address] [place] [phone] Va Maharaj Request Call Back 08/25/2024 7:24 AM WOOD PREPARATION SUPERVISOR - 08/25/2024 11:59 PM WOOD PREPARATION SUPERVISOR Hospital Encounter Radiology [address] [place] [address] Transient ischemic attack (TIA); Cerebrovascular disease, unspecified; Unspecified visual loss; Presence of cardiac pacemaker Discharge Disposition: Discharge to home or self care 08/25/2024 Orders Only Radiology [address] [place] [address] Katarzyna Gil, 08/23/2024 12:12 PM WOOD PREPARATION SUPERVISOR - 08/23/2024 11:59 PM WOOD PREPARATION SUPERVISOR Hospital Encounter Radiology [facility] [address] [place] [address] Pacemaker reprogramming/check ; Complete heart block (HCC) Discharge Disposition: Discharge to home or self care 08/23/2024 11:30 AM WOOD PREPARATION SUPERVISOR Office Visit [facility] Cardiology [address] 8th [place] [address] [place] [address] Elise Ibarra NP Pacemaker reprogramming/check (Primary Dx); Complete heart block (HCC) 08/23/2024 11:00 AM WOOD PREPARATION SUPERVISOR Ancillary Procedure [facility] Cardiology [address] [place] [address] 8th [place] [address] [place] [address] Pacemaker reprogramming/check 08/23/2024 Orders Only [facility] Cardiology [address] [place] [address] 8th [place] [address] [place] [address] Elise Ibarra NP Pacemaker reprogramming/check (Primary Dx) 08/02/2024 12:30 PM WOOD PREPARATION SUPERVISOR - 08/02/2024 1:30 PM WOOD PREPARATION SUPERVISOR Surgery [address] [address] Trey Arroyo MD COLON BIOPSY 08/02/2024 1:07 PM WOOD PREPARATION SUPERVISOR Anesthesia Event [address] [address] Rui Fuller MD McGowan, Jessica Lynn, NP 08/02/2024 11:02 AM WOOD PREPARATION SUPERVISOR - 08/02/2024 3:29 PM WOOD PREPARATION SUPERVISOR Hospital Encounter [address] [address] Trey Arroyo MD Dysphagia, unspecified type; Dyspepsia; Diarrhea, unspecified type Discharge Disposition: Discharge to home or self care 07/28/2024 10:30 AM WOOD PREPARATION SUPERVISOR Office Visit [facility] [address] [place] [address] Claudia Cristobal PA Seronegative rheumatoid arthritis (HCC) (Primary Dx); Encounter for long-term (current) use of high-risk medication 07/26/2024 Telephone [facility] Specialty Services [address] [place] [phone] Sarina Posey RN GI PROCEDURE 7 DAY PRE CALL 07/26/2024 Orders Only Health Information Management [address] [address] Scanning, Provider 07/14/2024 10:30 AM WOOD PREPARATION SUPERVISOR Pre-Admission Testing [facility] for [facility] ([facility]) [address] [place] [phone] from Last 3 Months Allergies Active Allergy [...] - blisters Etanercept Itching Low 02/24/2022 Gum Weston Unknown 05/12/2023 Gum Tmback-Uhqwsm-Lnng-Alcoho l Blisters,Rash High 12/17/2021 Mastisol - blisters [...] every 5 (five) minutes as needed 04/03/[address] (Cymbalta) 60 mg capsule Take 1 capsule (60 mg total) by mouth nightly 30 capsule 04/25/20 Active metoprolol tartrate (LOPRESSOR) 50 mg immediate release tabletIndications :heart Take 1 tablet (50 mg total) by mouth 2 (two) times a day Active montelukast (SINGULAIR) 10 mg tabletIndications :Seasonal Allergic Rhinitis Take 1 tablet (10 mg total) by mouth every morning 05/06/20 Active hydrOXYzine (ATARAX) 25 mg tabletIndications :Urticaria [...] 02/07/2021 Assessment & Plan (07/28/2024 11:19 AM WOOD PREPARATION SUPERVISOR): Monitor routine labs while on immunosuppressive medications. [...] QuantGold Assessment & Plan (09/22/2023 12:26 PM WOOD PREPARATION SUPERVISOR): Monitor routine labs while on immunosuppressive medications. [...] QuantGold Assessment & Plan (09/11/2022 12:48 PM WOOD PREPARATION SUPERVISOR): Monitor routine labs while on immunosuppressive medications. Recent 08/20 labs stable. 06/2020: Neg Hep B/C 03/2021: Neg QuantGold Assessment & Plan (07/01/2022 9:25 AM WOOD PREPARATION SUPERVISOR): Monitor routine labs while on immunosuppressive medications. [...] QuantGold Assessment & Plan (08/19/2021 2:31 PM WOOD PREPARATION SUPERVISOR): Monitor routine labs while on immunosuppressive medications. [...] Hospitalized for total of 8 days, at [place] and then [facility]. Had CT brain/neck angio that were [...] Hospitalized for total of 8 days, at [place] and then [facility]. Had CT brain/neck angio that were [...] 07/24/2020 Assessment & Plan (07/24/2020 12:34 PM WOOD PREPARATION SUPERVISOR): Her greatest pain complaint at this time [...] 07/24/2020 Assessment & Plan (07/01/2022 2:12 PM WOOD PREPARATION SUPERVISOR): Self weaned off Cymbalta 2 days ago [...] exercise. Assessment & Plan (08/27/2020 2:41 PM WOOD PREPARATION SUPERVISOR): Fatigue with sensation of pain all over [...] exercise. Assessment & Plan (07/24/2020 12:36 PM WOOD PREPARATION SUPERVISOR): Fatigue with sensation of pain all over [...] PT. Assessment & Plan (08/28/2020 12:26 PM WOOD PREPARATION SUPERVISOR): Multifocal OA (hands and hips) per recent xrays. Continue Tylenol 500 mg qid. Continue PT. Assessment & Plan (07/24/2020 12:41 PM WOOD PREPARATION SUPERVISOR): Multifocal OA (hands and hips) per recent [...] thickening. Assessment & Plan (07/28/2024 11:22 AM WOOD PREPARATION SUPERVISOR): Off MTX (oral ulcers/hair thinning). Remains on [...] increase blood glucose, glaucoma and osteopenia with watermelon inspector use of steroids. She was strongly encouraged [...] needed. Assessment & Plan (09/22/2023 12:32 PM WOOD PREPARATION SUPERVISOR): A 09/2022 repeat left hand/wrist US demonstrated [...] needed. Assessment & Plan (09/11/2022 12:48 PM WOOD PREPARATION SUPERVISOR): Continued 15mg MTX weekly and monthly Simponi [...] Chan. Assessment & Plan (08/06/2022 9:00 PM WOOD PREPARATION SUPERVISOR): Has continued 15mg MTX weekly as well [...] we have no access to them through [employer]. She already had an OV scheduled for 09/02 - will re-evaluate joints at that time and consider repeat hand US if synovitis is absent/minimal on exam but she is still noting pain -to evaluate for underlying inflammation. She may require change in biologic medication. Assessment & Plan (07/01/2022 2:09 PM WOOD PREPARATION SUPERVISOR): CDAI 37, high Off Enbrel due to ISRs. Continued MTX and Simponi injections. Noted improvement after prednisone taper at last visit. Joints were feeling good until a few weeks ago when she returned from a trip to [place] an self weaned off Cymbalta. Now with [...] She is to follow up with her emt intermediate soon due to low BP following her [...] increase blood glucose, glaucoma and osteopenia with watermelon inspector use of steroids. Continue 15mg MTX weekly [...] Chan. Assessment & Plan (08/19/2021 9:00 PM WOOD PREPARATION SUPERVISOR): CDAI 25. On 15mg MTX weekly but has only taken 3 Enbrel injections so far. Just completed a medrol dose pack from her emt intermediate due to inflammation around her heart (pericarditis?). [...] incontinence. Has followed up with PCP and emt intermediate - started Ubrelvy for JACKSON and emt intermediate is to adjust her pacemaker on 05/23. [...] weeks, sooner if needed. Seen with Dr. Cahn. Assessment & Plan (04/12/2021 12:21 PM CDT): [...] pen with her during her trip to [place] (leaves and returns around the ). A letter was provided for [facility] to allow Humira to be brought as a carry on. She may call Sofi to schedule injection with a nurse ambassador [...] needed. Assessment & Plan (08/28/2020 12:26 PM WOOD PREPARATION SUPERVISOR): Our workup showed an JANNET 1:160 but [...] needed. Assessment & Plan (07/24/2020 12:33 PM WOOD PREPARATION SUPERVISOR): 54yoF referred for evaluation due to +JANNET [...] reassess. Assessment & Plan (07/06/2020 4:49 PM WOOD PREPARATION SUPERVISOR): 54yoF referred for evaluation due to +JANNET [...] (12/13/2019): Added automatically from request for surgery [id number] SVT (supraventricular tachycardia) 12/13/2019 Overview (12/13/2019): Added automatically from request for surgery [id number] A-fib 11/24/2019 Overview (11/24/2019): Added automatically from request for surgery [id number] Laryngopharyngeal reflux (LPR) 08/04/2018 Assessment & Plan (10/20/2018 12:26 PM CDT): No longer taking the omeprazole and ranitidine as prescribed. Patient is no longer experiencing any coughing, sinonasal or throat symptoms. Assessment & Plan (08/04/2018 1:17 PM WOOD PREPARATION SUPERVISOR): Add omeprazole 40 mg Q morning 30 [...] resume. Assessment & Plan (08/04/2018 1:11 PM WOOD PREPARATION SUPERVISOR): Patient's chronic cough is most likely secondary [...] reactive airway disease contributing to her cough. watermelon inspector current use of anticoagulant therapy 1 08/28/2014 Deep vein thrombosis (DVT) 06/27/2015 Hyperthyroidism 08/31/2012 Chronic adrenal insufficiency 08/30/2012 Social History Tobacco Use Types Packs/Day Years Used Date Smoking Tobacco: Never Passive Smoke Exposure: Past Smokeless Tobacco: Never Tobacco Cessation:Counseling Given: Not Answered Alcohol Use Standard Drinks/Week Comments No 0 (1 standard drink = 0.6 oz pur e alcohol) [facility] Utilities Answer Date Recorded In the past 12 months has th e electric, gas, oil, or water company threatened [...] often do you attend chur ch or voodoo services? More than 4 times per year 02/11/2024 Do you belong to any clubs o r organizations such as amish groups, unions, fraternal or athletic groups, or [...] place to sleep or slept in a usp (including now)? No 11/02/2023 Housing Stability Vital Sign Answer Thang e Recorded In the last 12 months, was t here a time when you were not able to pay the mortgage or rent on time? No 02/11/2024 In the past 12 months, how m any times have you moved where you were living? 0 02/11/2024 At any time in the past 12 m [facility], were you homeless or living in a usp (including now)? No 02/11/2024 Personal Safety Answer Date Recorded Have you ever been in or are you currently in a harmful physical or emotional relationship or is someone making you feel afraid or unsafe? Denies 08/02/2024 Comments No Sex and Gender Information Value Date Recorded Sex Assigned at Not on file Legal Sex Female 12:21 AM WOOD PREPARATION SUPERVISOR Gender Identity Not on file Sexual Orientation Not on file Last Filed Vital Signs Vital Sign Reading Time Taken Comments Blood Pressure 125/71 08/25/2024 8:38 AM WOOD PREPARATION SUPERVISOR Pulse 73 08/25/2024 8:38 AM WOOD PREPARATION SUPERVISOR Temperature 36 C (96.8 F) 08/02/2024 2:20 PM WOOD PREPARATION SUPERVISOR Respiratory Rate 10 08/02/2024 2:40 PM WOOD PREPARATION SUPERVISOR Oxygen Saturation 97% 08/25/2024 8:38 AM WOOD PREPARATION SUPERVISOR Inhaled Oxygen Concentration - - Weight 88.6 kg (195 lb 6.4 oz) 08/23/2024 11:23 AM WOOD PREPARATION SUPERVISOR Height 172.7 cm (5' 8 ) 08/23/2024 11:23 AM WOOD PREPARATION SUPERVISOR Body Mass Index 29.71 08/23/2024 11:23 AM WOOD PREPARATION SUPERVISOR Plan of Treatment Not on file Goals Goal Patient Goal Type Associated Problems Recent Progress Patient-Stated? Author CCM Chronic Pain Care Plan Chronic Care Management No Osman, Hali A., RN Note: Problem: Chronic Pain Goals: 1. [...] on stairs Contact your local community or [facility] for information on exercise, fall prevention programs, or options for improving home safety. Medical Devices Implanted Type Area Automotive Teacher Device Identifier Shelf Expiration Date Model / Serial / Lot Ivc Filter- 7 Implanted:Qty: 1 on 06/09/2007 by Tam Fraser MD IVC Filter N/A: Vena Cava Lead-Spinal Cord Stimulator- 018 Implanted:2017 by Taran Ramirez MD (Quantity not on file) Lead Back [employer] SC-2158- [id number] / / Biotronik Ra Lead ([id number])- 019 Implanted:2018 (Quantity not on file) Lead Chest Biotronik SOLIA S 45 [id number] / [id number] / Lead (Rv)-05/23/2021 Implanted:2020 (Quantity not on file) Lead Heart Biotronik SOLIA S 53 377 177 / [id number] / Biotronik Paceomaker Ariana Kaur-12/24/2023 Implanted:2023 (Quantity not on file) Pacemaker Chest Wall Biotronik [id number] / [id number] / Spinal Cord Stimulator- 018 Implanted:Qty: 1 on 08/20/2017 by Taran Ramirez MD Spinal Cord Stimulator N/A: Back [employer] SC-1200 / [id number] / Spinal Cord Stimulator Lead-08/20/2017 Implanted:2017 by Taran Ramirez MD (Quantity not on file) Spinal Cord Stimulator Back [employer] Neuro- [id number] / / Hardware Thoracic-L umbar Spine Loop Recorder Chest Wall Chris V[employer] System Closure Repair Femoral Artery Suture Mediated Perclose Prostyle 61634-75 - [id number] Implanted:Qty: 1 on 02/09/2024 by Morgan Roy MD at [facility] 11/16/2025 [id number] / / [id number] [place] [employer] Percutaneous Transcatheter Amplatzer Amulet 18mm [id number] - [id number] Implanted:Qty: 1 on 02/09/2024 by Morgan Roy MD at [facility] 09/17/2027 9-[id number] / / [id number] Chris Vascular System Closure Repair Femoral Artery Suture Mediated Perclose Prostyle 28869-50 - [id number] Implanted:Qty: 1 on 02/09/2024 by Morgan Roy MD at [facility] 11/16/2025 [id number] / / [id number] [employer] Sling Urinary Incontinence Female Stress Short Desara Blue Sis-Ds01bs - [id number] Implanted:Qty: 1 on 06/28/2024 by Shankar Mak MD at [facility] N/A: Urethra [employer] 01/04/2027 SIS-DS01 BS / / [id number] Explanted Type Area Automotive Teacher Device Identifier Shelf Expiration Date Model / Serial / Lot Biotronik Rv Lead ([id number])-07/04 Implanted:Qty: 1 on 07/04/2019 Explanted:Qty: 1 Lead Chest Biotronik [id number] / / Description:This lead was re placed and left behind per patient on 05/23/21 Biotronik Pacemaker ([id number])-07/04 Implanted:Qty: 1 on 07/04/2019 Explanted:Qty: 1 on 12/24/2023 Pacemaker Left: Chest Biotronik BENITO CARBAJAL / [id number] / [id number] Procedures Procedure Name Priority Date/Time Associated Diagnosis Comments XR SPINE THORACOLUMBAR JUNCT ION 2 OR MORE VIEWS Schedule Routine, Read Routine (OP Routine) 08/25/2024 7:35 AM WOOD PREPARATION SUPERVISOR Transient ischemic attack (TIA) Cerebrovascular disease, unspecified Unspecified visual loss Presence of cardiac pacemaker XR CHEST PA LATERAL 2 VIEWS Schedule RY, Read RY (Appt Today, Awaiting Results) 08/23/2024 12:16 PM WOOD PREPARATION SUPERVISOR Pacemaker reprogramming/c heck Complete heart block (HCC) DEVICE CHECK - IN OFFICE Routine 025 10:57 AM WOOD PREPARATION SUPERVISOR Pacemaker reprogramming/c heck COLONOSCOPY 08/02/2024 1:43 PM WOOD PREPARATION SUPERVISOR SURGICAL PATHOLOGY Routine 08/02/2024 1:26 PM WOOD PREPARATION SUPERVISOR Dysphagia, unspecified type Dyspepsia Diarrhea, unspecified type EGD 08/02/2024 1:15 PM WOOD PREPARATION SUPERVISOR ESOPHAGOGASTRODUODENOSCOPY BIOPSY 08/02/2024 1:12 PM WOOD PREPARATION SUPERVISOR Dysphagia, unspecified type Dyspepsia Diarrhea, unspecified type COLON BIOPSY 08/02/2024 1:12 PM WOOD PREPARATION SUPERVISOR Dysphagia, unspecified type Dyspepsia Diarrhea, unspecified type SCAN - OTHER ORDERS 07/26/2024 HEPATITIS C ANTIBODY Routine 07/06/2020 2:58 PM WOOD PREPARATION SUPERVISOR Polyarthralgia Encounter for screening for other viral diseases from Last 3 Months or Most Recently Relevant to Health Maintenance Results * XR Spine Thoracolumbar Junction 2 or More Views (08/25/2024 7:35 AM WOOD PREPARATION SUPERVISOR) Anatomical Region Laterality Modality Spine N/A Computed Radiogr aphy 08/25/2024 7:45 AM WOOD PREPARATION SUPERVISOR Impressions 08/25/2024 7:45 AM WOOD PREPARATION SUPERVISOR 1. Thoracic stimulator device in place with [...] Nehemias Simons D.O. Narrative 08/25/2024 7:45 AM WOOD PREPARATION SUPERVISOR EXAMINATION: XR SPINE THORACOLUMBAR JUNCTION 2 OR [...] screw fusion appears intact. Electronically signed by: Nehemisa Simons D.O. us Tom Stephen Paz MD IMG XR PROCEDURES Final Resu lt * XR Chest Pa Lateral 2 Views (08/23/2024 12:16 PM WOOD PREPARATION SUPERVISOR) Anatomical Region Laterality Modality Body, Chest N/A Computed Radiogr aphy 08/23/2024 2:08 PM WOOD PREPARATION SUPERVISOR Impressions 08/23/2024 4:13 PM WOOD PREPARATION SUPERVISOR FINDINGS/IMPRESSION: Left subclavian approach pacemaker with leads [...] Arpit Mcclelland M.D. Narrative 08/23/2024 4:13 PM WOOD PREPARATION SUPERVISOR EXAMINATION: XR CHEST PA LATERAL 2 VIEWS [...] CHECK - IN OFFICE (08/23/2024 10:57 AM WOOD PREPARATION SUPERVISOR) Anatomical Region Laterality Modality Other 08/23/2024 2:00 AM WOOD PREPARATION SUPERVISOR Narrative 08/27/2024 9:33 PM WOOD PREPARATION SUPERVISOR Interpretation Summary: Battery and Leads (BL) Normal parameters noted on battery and lead(s) --- Estimate 10 years to TEREZA Procedure Note Leonardo Grimm MD - 08/27/2024 Interpretation Summary: Battery and Leads (BL) Normal parameters noted on battery and lead(s) --- Estimate 10 years toERI us Elise Ibarra NP [facility] CARDIAC SERVICES PROCE DURES Final Result * Colonoscopy (08/02/2024 1:43 PM WOOD PREPARATION SUPERVISOR) Anatomical Region Laterality Modality Other Narrative Procedure Note Trey Arroyo MD - 08/02/2024 1:43 PM CST [facility] ENDOSCOPY [facility] Patient Name: Naye Cantu Procedure Date: 08/02/2024 1:43 PM Date of : 1965 Admit Type: Outpatient Age: 58 Gender: Female Attending MD: Trey Arroyo M.D. Room: [facility] ENDOSCOPY ROOM 8 Note Status: Finalized [...] The scope was passed under direct vision.The [id number] endoscope was introduced through the anus and advanced to the terminal ileum. The colonoscopy was performed without difficulty. The patient tolerated the procedure well. The qualityof the bowel preparation was evaluated using the BBPS ([place] Bowel Preparation Scale) with scores of:Right Colon [...] business hours - Please call theNurse Coordinator: [phone] After hours, evening, nights, weekends and holidays- Please call the hospital chucking and boring machine operator at and ask for the GI fellow aviation project engineer. Attending Participation: I was present and participated during the entire procedure, including non-patrick portions. Electronically signed by Trey Arroyo MD Trey Arroyo M.D. 08/02/2024 2:08:56 PM . Number of Addenda: 0 Note Initiated On: 08/02/2024 1:43 PM Trey Arroyo MD ENDOSCOPY PROCEDURES Final Result * Surgical pathology (08/02/2024 1:26 PM WOOD PREPARATION SUPERVISOR) Tissue (Duodenum, Biopsy) 08/02/2024 1:26 PM WOOD PREPARATION SUPERVISOR Tissue (Gastric/Stomach biopsy) 08/02/2024 1:29 PM WOOD PREPARATION SUPERVISOR Tissue (Esophageal biopsy) 08/02/2024 1:38 PM WOOD PREPARATION SUPERVISOR Tissue (Colon, Biopsy) 08/02/2024 2:02 PM WOOD PREPARATION SUPERVISOR Narrative PATHOLOGY [facility] - 08/05/2024 10:16 AM WOOD PREPARATION SUPERVISOR EPIC results best viewed via link to PDF [facility] [place] [address] Note to Patients: This report may contain [...] Gender: F : 1965 (Age: 58) Address: [address] [place] [phone] [facility] #: [id number] Taken:08/02/2024 Received:08/02/2024 Reported: 08/05/2024 Patient Type: [facility] Service: Gastroenterology Location: Physician(s): Pb [...] Surgical Pathology and Flow Cytometry Departments at as part of an ongoing air quality instrument specialist program and in compliance with federally mandated [...] Surgical Pathology and Flow Cytometry Departments of . It has not been cleared or approved by the U. S. Food and Drug Administration. IMAGES AND SCANNED DOCUMENTS, IF INCLUDED, ONLY VIEWABLE IN PDF VERSION OF REPORT us Trey Arroyo MD LAB PATHOLOGY ORDERAB LES Final Result PATHOLOGY [facility] 3rd Floor [place], [place] [phone] * EGD (08/02/2024 1:15 PM WOOD PREPARATION SUPERVISOR) Anatomical Region Laterality Modality Other Narrative Procedure Note Trey Arroyo MD - 08/02/2024 1:15 PM CST [facility]OS[facility] Patient Name: Naye Cantu Procedure Date: 08/02/2024 1:15 PM Date of : 1965 Admit Type: Outpatient Age: 58 Gender: Female Attending MD: Trey Arroyo M.D. Room: [facility] ENDOSCOPY ROOM 8 Note Status: Addendum [...] passed under direct vision. The GIF [id number] endoscope was introducedthrough the mouth, and advanced [...] During normal business hours - [facility] [place] [facility]: [phone] After hours, evening, nights, weekends and holidays- Please call the hospital chucking and boring machine operator at and ask for the GI fellow aviation project engineer. Attending Participation: I personally performed the entire [...] * Hepatitis C antibody (07/06/2020 2:58 PM WOOD PREPARATION SUPERVISOR) Hep C Ab NON-REACTI VE NON-REACT GIA [facility] SIGNAL TO CUT-OFF 0.02 <1.00 [facility] Comment: HCV antibody was non-reactive. There is no laboratory evidence of HCV infection. In most cases, no further action is required. However, if recent HCV exposure is suspected, a test for HCV RNA (test code 22433) is suggested. For additional information please refer to http://education.[employer]/faq/RNB36j5 (This link is being provided for informational/ educational purposes only.) Blood specimen (specimen) 07/06/2020 2:58 PM WOOD PREPARATION SUPERVISOR 07/06/2020 3:00 PM WOOD PREPARATION SUPERVISOR Narrative [facility] - 07/11/2020 9:33 PM WOOD PREPARATION SUPERVISOR PATIENT UNABLE TO VOID; ADVISED TO RETURN FOR COLLECTION. Olga MONTES LAB MICROBIOLOGY - GENERA L ORDERABLES Final Result [facility] [address] [place] [address] from Last 3 Months or Most Recently Relevant to Health Maintenance Insurance MEDICARE IDIL MEDICARE [facility] [address] [place] [id number] MEDICARE [facility] [address] [place] [address] MEDICARE [address] [place] [id number] MEDICARE IDPA Advance Directives For more information, please contact: [phone] * Full Code (Latest Code Status on [...] 6:47 AM 04/25/2020 10:09 PM Care Teams Drug And Alcohol Counsellor Relationship Specialty Start Date End Date Tom Paz MD PCP - General 09/09/16 Tab Taylor MD [address] [place] [address] Consulting Physician Cardiology 01/03/20 Favian Caceres MD [address] [place] [address] Consulting Physician Rheumatology 08/28/23
--- OUTSIDE RECORDS SUMMARY | 2024-09-30 12:29 | XMS_ITS | Patient Health Record ---
Author Organization [facility] Orthopedics [facility] Address [address] [place], [place] [id number] Care Team Providers Care Fish Farmer Name Role Phone Jackson BRYANT, Tom Primary Care Provider [phone] Cecilia Nicole Unavailable [phone] ALLERGIES Allergen (clinical drug ingredient) Drug/Non Drug Allergy documented on EMR Reaction Allergy Type Onset Date Status Darvon Unknown Drug Allergy Active Darvocet-N 50 Unknown Drug Allergy Act antionette Ceftin Unknown Drug Allergy Active Biaxin Unknown Drug Allergy Active diphenhydramine Benadryl Unknown Drug Allergy A ctive COMPAZINE Unknown Drug Allergy Active penicillin Unknown Drug Allergy Active Vicodin Unknown Drug Allergy Active Tylenol with Codeine #3 Unknown Drug Allergy Active acetaminophen / oxycodone Percocet Unknown Drug Allergy Active meclizine Meclizine HCl Unknown Drug Allergy Act antionette propranolol Inderal LA Unknown Drug Allergy Acti ve imipramine Imipramine HCl Unknown Drug Allergy A ctive REASON FOR [...] osteoarthritis of right knee (M17.11) Active confirmed [id number] Problem Closed nondisplaced fracture of acromial end of left clavicle, initial encounter (S42.035A) Active confirmed 1348896 Problem Closed nondisplaced fracture of acromial end of left clavicle with routine healing, subsequent encounter (S42.035D) Active confirmed 5346789 Problem Right hip pain (M25.551) Active confirmed Right hip pain (731995344899700) Problem Left hip pain (M25.552) Active confirmed Arthralgia of t he pelvic region and thigh (959882041) Problem Primary localized osteoarthritis of right knee (M17.11) Active confirmed Primary osteoarthritis (504262712) Problem Pes anserine bursitis (M70.50) Active confirmed [id number] PLAN OF TREATMENT Pending Test Test Name Order Date X ray : Hip, left, 2 02/24/2018 X ray : Hip, right, 2 02/24/2018 X ray : Knee, right 3 views 11/30/2017 Insurance Providers Payer Name Payer Address Payer Phone Subscriber Number Group Number Insured Name Patient Relationship to Insured Coverage Start Date Coverage End Date Medicare Services [address] [address] [place] [address] [id number] Naye Hart Self - patient is the insured 0 Medicaid [address] [place] [address] [id number] Naye Hart Self - patient is the [...]
--- OUTSIDE RECORDS SUMMARY | 2024-09-30 14:56 | XMS_ITS | Encounter Summary ---
Author Organization [employer] Address [address] [place] [address] Care Team Providers Care Afternoon Babysitter Name Role Phone Tom Paz MD Primary Care Provider [phone] Encounter Details Date Type Department Care Team [...] on filedocumented in this encounter Care Teams Afternoon Babysitter Relationship Specialty Start Date End Date Tom Paz MD [address] [place] [id number] PCP - General Family Practice 01/28/22 documented as of this encounter
--- OUTSIDE RECORDS SUMMARY | 2024-09-30 14:56 | XMS_ITS | Clinical Summary ---
Author Organization [facility] al Address [address] [place] [address] Care Team Providers Care Mobile Web Application Developer Name Role Phone Tom Paz MD Primary Care Provider [phone] Tab Taylor MD Unavailable [phone] Favian Caceres MD Unavailable [phone] Allergies Active Allergy Reactions Criticality Noted Date [...] - blisters Etanercept Itching Low 02/24/2022 Gum [place] Unknown 05/12/2023 Gum Zhmkjj-Fwewfe-Aqvg-Alcoho l Blisters,Rash High 12/17/2021 Mastisol - blisters [...] 02/07/2021 Assessment & Plan (07/28/2024 11:19 AM HYDRAULIC PRESS TENDER): Monitor routine labs while on immunosuppressive medications. [...] QuantGold Assessment & Plan (09/22/2023 12:26 PM HYDRAULIC PRESS TENDER): Monitor routine labs while on immunosuppressive medications. [...] QuantGold Assessment & Plan (09/11/2022 12:48 PM HYDRAULIC PRESS TENDER): Monitor routine labs while on immunosuppressive medications. Recent 08/20 labs stable. 06/2020: Neg Hep B/C 03/2021: Neg QuantGold Assessment & Plan (07/01/2022 9:25 AM HYDRAULIC PRESS TENDER): Monitor routine labs while on immunosuppressive medications. [...] QuantGold Assessment & Plan (08/19/2021 2:31 PM HYDRAULIC PRESS TENDER): Monitor routine labs while on immunosuppressive medications. [...] Hospitalized for total of 8 days, at [facility] and then [facility]. Had CT brain/neck angio that were [...] Hospitalized for total of 8 days, at [facility] and then [facility]. Had CT brain/neck angio that were [...] 07/24/2020 Assessment & Plan (07/24/2020 12:34 PM HYDRAULIC PRESS TENDER): Her greatest pain complaint at this time [...] 07/24/2020 Assessment & Plan (07/01/2022 2:12 PM HYDRAULIC PRESS TENDER): Self weaned off Cymbalta 2 days ago [...] exercise. Assessment & Plan (08/27/2020 2:41 PM HYDRAULIC PRESS TENDER): Fatigue with sensation of pain all over [...] exercise. Assessment & Plan (07/24/2020 12:36 PM HYDRAULIC PRESS TENDER): Fatigue with sensation of pain all over [...] PT. 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 Continue Tylenol 500 mg qid. Continue PT. Assessment & Plan (07/24/2020 12:41 PM HYDRAULIC PRESS TENDER): Multifocal OA (hands and hips) per recent [...] thickening. Assessment & Plan (07/28/2024 11:22 AM HYDRAULIC PRESS TENDER): Off MTX (oral ulcers/hair thinning). Remains on [...] increase blood glucose, glaucoma and osteopenia with ad terminal makeup operator use of steroids. She was strongly encouraged [...] needed. Assessment & Plan (09/22/2023 12:32 PM HYDRAULIC PRESS TENDER): A 09/2022 repeat left hand/wrist US demonstrated [...] needed. Assessment & Plan (09/11/2022 12:48 PM HYDRAULIC PRESS TENDER): Continued 15mg MTX weekly and monthly Simponi [...] Chan. Assessment & Plan (08/06/2022 9:00 PM HYDRAULIC PRESS TENDER): Has continued 15mg MTX weekly as well [...] we have no access to them through [employer]. She already had an OV scheduled for 09/02 - will re-evaluate joints at that time and consider repeat hand US if synovitis is absent/minimal on exam but she is still noting pain -to evaluate for underlying inflammation. She may require change in biologic medication. Assessment & Plan (07/01/2022 2:09 PM HYDRAULIC PRESS TENDER): CDAI 37, high Off Enbrel due to ISRs. Continued MTX and Simponi injections. Noted improvement after prednisone taper at last visit. Joints were feeling good until a few weeks ago when she returned from a trip to [place] an self weaned off Cymbalta. Now with [...] She is to follow up with her motor vehicle inspector soon due to low BP following her [...] increase blood glucose, glaucoma and osteopenia with penitentiary use of steroids. Continue 15mg MTX weekly [...] Chan. Assessment & Plan (08/19/2021 9:00 PM HYDRAULIC PRESS TENDER): CDAI 25. On 15mg MTX weekly but has only taken 3 Enbrel injections so far. Just completed a medrol dose pack from her motor vehicle inspector due to inflammation around her heart (pericarditis?). [...] incontinence. Has followed up with PCP and motor vehicle inspector - started Ubrelvy for JACKSON and motor vehicle inspector is to adjust her pacemaker on 05/23. [...] pen with her during her trip to [place] (leaves and returns around the ). A letter was provided for [facility] to allow Humira to be brought as a carry on. She may call [facility] to schedule injection with a nurse [...] needed. Assessment & Plan (08/28/2020 12:26 PM HYDRAULIC PRESS TENDER): Our workup showed an JANNET 1:160 but [...] needed. Assessment & Plan (07/24/2020 12:33 PM HYDRAULIC PRESS TENDER): 54yoF referred for evaluation due to +JANNET [...] reassess. Assessment & Plan (07/06/2020 4:49 PM HYDRAULIC PRESS TENDER): 54yoF referred for evaluation due to +JANNET [...] (12/13/2019): Added automatically from request for surgery [id number] SVT (supraventricular tachycardia) 12/13/2019 Overview (12/13/2019): Added automatically from request for surgery [id number] A-fib 11/24/2019 Overview (11/24/2019): Added automatically from request for surgery [id number] Laryngopharyngeal reflux (LPR) 08/04/2018 Assessment & Plan (10/20/2018 12:26 PM CDT): No longer taking the omeprazole and ranitidine as prescribed. Patient is no longer experiencing any coughing, sinonasal or throat symptoms. Assessment & Plan (08/04/2018 1:17 PM HYDRAULIC PRESS TENDER): Add omeprazole 40 mg Q morning 30 [...] resume. Assessment & Plan (08/04/2018 1:11 PM HYDRAULIC PRESS TENDER): Patient's chronic cough is most likely secondary [...] Type Department Care Team Description 09/02/2024 Telephone [facility] Dermatology [address] [place] [address] [address] [place] [address] Va Maharaj Request Call Back 08/25/2024 7:24 AM HYDRAULIC PRESS TENDER - 08/25/2024 11:59 PM HYDRAULIC PRESS TENDER Hospital Encounter [facility] Radiology [address] [place] [address] Transient ischemic attack (TIA); Cerebrovascular disease, unspecified; Unspecified visual loss; Presence of cardiac pacemaker Discharge Disposition: Discharge to home or self care 08/25/2024 Orders Only [facility] Radiology [address] [place] [address] Katarzyna Gil, RT 08/23/2024 12:12 PM HYDRAULIC PRESS TENDER - 08/23/2024 11:59 PM HYDRAULIC PRESS TENDER Hospital Encounter [facility] Radiology [facility] [address] [place] [address] Pacemaker reprogramming/check ; Complete heart block (HCC) Discharge Disposition: Discharge to home or self care 08/23/2024 11:30 AM HYDRAULIC PRESS TENDER Office Visit [facility] Cardiology [address] [place] [address] Medicine 8th [place] [address] [place] [address] Elise Ibarra, SONIA Pacemaker reprogramming/check (Primary Dx); Complete heart block (HCC) 08/23/2024 11:00 AM HYDRAULIC PRESS TENDER Ancillary Procedure [facility] Cardiology [address] [place] [address] Medicine 8th [place] [address] [place] [address] Pacemaker reprogramming/check 08/23/2024 Orders Only [facility] Cardiology [address] [facility] Advanced Medicine 8th [place] [address] [place] [address] Elise Ibarra NP Pacemaker reprogramming/check (Primary Dx) 08/02/2024 1:07 PM HYDRAULIC PRESS TENDER Anesthesia Event [facility] Digestive Disease [place] [address] [facility] [address] [place] [address] Rui Fuller MD McGowan, Jessica Lynn, NP 08/02/2024 12:30 PM HYDRAULIC PRESS TENDER - 08/02/2024 1:30 PM HYDRAULIC PRESS TENDER Surgery [address] [address] Trey Arroyo MD COLON BIOPSY 08/02/2024 11:02 AM HYDRAULIC PRESS TENDER - 08/02/2024 3:29 PM HYDRAULIC PRESS TENDER Hospital Encounter [address] [address] Trey Arroyo MD Dysphagia, unspecified type; Dyspepsia; Diarrhea, unspecified type Discharge Disposition: Discharge to home or self care 07/28/2024 10:30 AM HYDRAULIC PRESS TENDER Office Visit [facility] [address] [place] [phone] Claudia Cristobal PA Seronegative rheumatoid arthritis (HCC) (Primary Dx); Encounter for long-term (current) use of high-risk medication 07/26/2024 Telephone [facility] Specialty Services [address] [place] [address] Sarina Posey RN GI PROCEDURE 7 DAY PRE CALL 07/26/2024 Orders Only [facility] Health Information Management [address] [place] [address] Scanning, Provider 07/14/2024 10:30 AM HYDRAULIC PRESS TENDER Pre-Admission Testing [facility] for Preoperative Assessment and Planning [facility] [address] [place] [address] from Last 3 Months Surgical History Surgery [...] drink = 0.6 oz pur e alcohol) [facility] Utilities Answer Date Recorded In the past 12 months has th Offees, gas, oil, or water [employer] threatened to shut off services in your home? Yes 02/11/2024 Social Connection and Isolat ion Panel [NHANES] Answer Date Recorded In a typical week, how many times do you talk on the phone with family, friends, or neighbors? Once a week 02/11/2024 How often do you get togethe r with friends or relatives? Once a week 02/11/2024 How often do you attend [facility] or spiritism services? More than 4 times per year 02/11/2024 Do you belong to any clubs o r organizations such as anabaptism groups, unions, fraternal or athletic groups, or [...] place to sleep or slept in a residential (including now)? No 11/02/2023 Housing Stability Vital Sign Answer Thang e Recorded In the last 12 months, was t here a time when you were not able to pay the mortgage or rent on time? No 02/11/2024 In the past 12 months, how m any times have you moved where you were living? 0 02/11/2024 At any time in the past 12 m [facility], were you homeless or living in a residential (including now)? No 02/11/2024 Personal Safety Answer Date Recorded Have you ever been in or are you currently in a harmful physical or emotional relationship or is someone making you feel afraid or unsafe? Denies 08/02/2024 Comments No Sex and Gender Information Value Date Recorded Sex Assigned at Not on file Legal Sex Female 12:21 AM HYDRAULIC PRESS TENDER Gender Identity Not on file Sexual Orientation Not on file Obstetrics History Last Filed Vital Signs Vital Sign Reading Time Taken Comments Blood Pressure 125/71 08/25/2024 8:38 AM HYDRAULIC PRESS TENDER Pulse 73 08/25/2024 8:38 AM HYDRAULIC PRESS TENDER Temperature 36 C (96.8 F) 08/02/2024 2:20 PM HYDRAULIC PRESS TENDER Respiratory Rate 10 08/02/2024 2:40 PM HYDRAULIC PRESS TENDER Oxygen Saturation 97% 08/25/2024 8:38 AM HYDRAULIC PRESS TENDER Inhaled Oxygen Concentration - - Weight 88.6 kg (195 lb 6.4 oz) 08/23/2024 11:23 AM HYDRAULIC PRESS TENDER Height 172.7 cm (5' 8 ) 08/23/2024 11:23 AM HYDRAULIC PRESS TENDER Body Mass Index 29.71 08/23/2024 11:23 AM HYDRAULIC PRESS TENDER Plan of Treatment Health Maintenance Due Date [...] on stairs Contact your local community or [facility] for information on exercise, fall prevention programs, or options for improving home safety. Medical Devices Implanted Type Area Fisher Hoop Net Device Identifier Shelf Expiration Date Model / Serial / Lot Ivc Filter- 7 Implanted:Qty: 1 on 06/09/2007 by Tam Fraser MD IVC Filter N/A: Vena Cava Lead-Spinal Cord Stimulator- 018 Implanted:2017 by Taran Ramirez MD (Quantity not on file) Lead Back [employer] SC-2158- 50 / / Biotronik Ra Lead ([id number])- 019 Implanted:2018 (Quantity not on file) Lead Chest Biotronik SOLIA S 45 [id number] 176 / [id number] / Lead (Rv)-05/23/2021 Implanted:2020 (Quantity not on file) Lead Heart Biotronik SOLIA S 53 377 177 / [id number] / Biotronik Paceomaker Ariana Rodríguez Dr-T-12/24/2023 Implanted:2023 (Quantity not on file) Pacemaker Chest Wall Biotronik [id number] / [id number] / Spinal Cord Stimulator- 018 Implanted:Qty: 1 on 08/20/2017 by Taran Ramirez MD Spinal Cord Stimulator N/A: Back [employer] SC-1200 / [id number] / Spinal Cord Stimulator Lead-08/20/2017 Implanted:2017 by Taran Ramirez MD (Quantity not on file) Spinal Cord Stimulator Back [employer] Neuro- [id number] / / Hardware Thoracic-L umbar Spine Loop Recorder Chest Wall [employer] System Closure Repair Femoral Artery Suture Mediated Perclose Prostyle 61880-40 - [id number] Implanted:Qty: 1 on 02/09/2024 by Morgan Roy MD at [facility] 11/16/2025 [id number] / / [id number] [place] [employer] Percutaneous Transcatheter Amplatzer Amulet 18mm 0-[id number] - [id number] Implanted:Qty: 1 on 02/09/2024 by Morgan Roy MD at [facility] 09/17/2027 9-[id number] 07-018 / / [id number] Chris [employer] System Closure Repair Femoral Artery Suture Mediated Perclose Prostyle 51682-22 - [id number] Implanted:Qty: 1 on 02/09/2024 by Morgan Roy MD at [facility] 11/16/2025 [id number] / / [id number] [employer] Sling Urinary Incontinence Female Stress Short Desara Blue Sis-Ds01bs - [id number] Implanted:Qty: 1 on 06/28/2024 by Shankar Mak MD at [facility] N/A: Urethra [employer] 01/04/2027 SIS-DS01 BS / / [id number] Explanted Type Area Fisher Hoop Net Device Identifier Shelf Expiration Date Model / Serial / Lot Biotronik Rv Lead ([id number])-07/04 Implanted:Qty: 1 on 07/04/2019 Explanted:Qty: 1 Lead Chest Biotronik [id number] / / Description:This lead was re placed and left behind per patient on 05/23/21 Biotronik Pacemaker ([id number])-07/04 Implanted:Qty: 1 on 07/04/2019 Explanted:Qty: 1 on 12/24/2023 Pacemaker Left: Chest Biotronik ELUNA 8 KRISTY CARBAJAL / [id number] / [id number] Procedures Procedure Name Priority Date/Time Associated Diagnosis Comments XR SPINE THORACOLUMBAR JUNCT ION 2 OR MORE VIEWS Schedule Routine, Read Routine (OP Routine) 08/25/2024 7:35 AM HYDRAULIC PRESS TENDER Transient ischemic attack (TIA) Cerebrovascular disease, unspecified Unspecified visual loss Presence of cardiac pacemaker XR CHEST PA LATERAL 2 VIEWS Schedule RY, Read RY (Appt Today, Awaiting Results) 08/23/2024 12:16 PM HYDRAULIC PRESS TENDER Pacemaker reprogramming/c heck Complete heart block (HCC) DEVICE CHECK - IN OFFICE Routine 025 10:57 AM HYDRAULIC PRESS TENDER Pacemaker reprogramming/c heck COLONOSCOPY 08/02/2024 1:43 PM HYDRAULIC PRESS TENDER SURGICAL PATHOLOGY Routine 08/02/2024 1:26 PM HYDRAULIC PRESS TENDER Dysphagia, unspecified type Dyspepsia Diarrhea, unspecified type EGD 08/02/2024 1:15 PM HYDRAULIC PRESS TENDER ESOPHAGOGASTRODUODENOSCOPY BIOPSY 08/02/2024 1:12 PM HYDRAULIC PRESS TENDER Dysphagia, unspecified type Dyspepsia Diarrhea, unspecified type COLON BIOPSY 08/02/2024 1:12 PM HYDRAULIC PRESS TENDER Dysphagia, unspecified type Dyspepsia Diarrhea, unspecified type SCAN - OTHER ORDERS 07/26/2024 HEPATITIS C ANTIBODY Routine 07/06/2020 2:58 PM HYDRAULIC PRESS TENDER Polyarthralgia Encounter for screening for other viral diseases from Last 3 Months or Most Recently Relevant to Health Maintenance Results * XR Spine Thoracolumbar Junction 2 or More Views (08/25/2024 7:35 AM HYDRAULIC PRESS TENDER) Anatomical Region Laterality Modality Spine N/A Computed Radiogr aphy 08/25/2024 7:45 AM HYDRAULIC PRESS TENDER Impressions 08/25/2024 7:45 AM HYDRAULIC PRESS TENDER 1. Thoracic stimulator device in place with [...] Nehemias Simons D.O. Narrative 08/25/2024 7:45 AM HYDRAULIC PRESS TENDER EXAMINATION: XR SPINE THORACOLUMBAR JUNCTION 2 OR [...] Pa Lateral 2 Views (08/23/2024 12:16 PM HYDRAULIC PRESS TENDER) Anatomical Region Laterality Modality Body, Chest N/A Computed Radiogr aphy 08/23/2024 2:08 PM HYDRAULIC PRESS TENDER Impressions 08/23/2024 4:13 PM HYDRAULIC PRESS TENDER FINDINGS/IMPRESSION: Left subclavian approach pacemaker with leads [...] Arpit Mcclelland M.D. Narrative 08/23/2024 4:13 PM HYDRAULIC PRESS TENDER EXAMINATION: XR CHEST PA LATERAL 2 VIEWS [...] CHECK - IN OFFICE (08/23/2024 10:57 AM HYDRAULIC PRESS TENDER) Anatomical Region Laterality Modality Other 08/23/2024 2:00 AM HYDRAULIC PRESS TENDER Narrative 08/27/2024 9:33 PM HYDRAULIC PRESS TENDER Interpretation Summary: Battery and Leads (BL) Normal parameters noted on battery and lead(s) --- Estimate 10 years to TEREZA Procedure Note Leonardo Grimm MD - 08/27/2024 Interpretation Summary: Battery and Leads (BL) Normal parameters noted on battery and lead(s) --- Estimate 10 years toERI us Elise Ibarra NP CV CARDIAC SERVICES [facility] Final Result * Colonoscopy (08/02/2024 1:43 PM HYDRAULIC PRESS TENDER) Anatomical Region Laterality Modality Other Narrative Procedure Note Trey Arroyo MD - 08/02/2024 1:43 PM CST [facility] Patient Name: Naye Cantu Procedure Date: 08/02/2024 1:43 PM Date of : 1965 Admit Type: Outpatient Age: 58 Gender: Female Attending MD: Trey Arroyo M.D. Room: [facility] END[facility]COPY RO[facility] 8 Note Status: Finalized Procedure: [...] The scope was passed under direct vision.The [id number] endoscope was introduced through the anus and advanced to the terminal ileum. The colonoscopy was performed without difficulty. The patient tolerated the procedure well. The qualityof the bowel preparation was evaluated using the BBPS (Kirby Bowel Preparation Scale) with scores of:Right Colon [...] During normal business hours - [facility]: [phone] After hours, evening, nights, weekends and holidays- Please call the hospital masking machine operator at and ask for the GI fellow review consultant. Attending Participation: I was present and participated during the entire procedure, including non-patrick portions. Electronically signed by Trey Arroyo MD Trey Arroyo M.D. 08/02/2024 2:08:56 PM . Number of Addenda: 0 Note Initiated On: 08/02/2024 1:43 PM Trey Arroyo MD ENDOSCOPY PROCEDURES Final Result * Surgical pathology (08/02/2024 1:26 PM HYDRAULIC PRESS TENDER) Tissue (Duodenum, Biopsy) 08/02/2024 1:26 PM HYDRAULIC PRESS TENDER Tissue (Gastric/Stomach biopsy) 08/02/2024 1:29 PM HYDRAULIC PRESS TENDER Tissue (Esophageal biopsy) 08/02/2024 1:38 PM HYDRAULIC PRESS TENDER Tissue (Colon, Biopsy) 08/02/2024 2:02 PM HYDRAULIC PRESS TENDER Narrative PATHOLOGY [facility] - 08/05/2024 10:16 AM HYDRAULIC PRESS TENDER EPIC results best viewed via link to PDF [facility] [place] [address] Note to Patients: This report may contain [...] Gender: F : 1965 (Age: 58) Address: [address] [place], [place] [address] [facility] #: [id number] Taken:08/02/2024 Received:08/02/2024 Reported: 08/05/2024 Patient Type: [facility] Service: Gastroenterology Location: Physician(s): Pb Steward [...] Surgical Pathology and Flow Cytometry Departments at [facility] as part of an ongoing cloth tester quality program and in compliance with federally mandated [...] Surgical Pathology and Flow Cytometry Departments of [facility]. It has not been cleared or approved by the U. S. Food and Drug Administration. IMAGES AND SCANNED DOCUMENTS, IF INCLUDED, ONLY VIEWABLE IN PDF VERSION OF REPORT Trey Arroyo MD LAB PATHOLOGY ORDERAB LES Final Result PATHOLOGY [facility] [address]rd [facility], [place] [phone] * EGD (08/02/2024 1:15 PM HYDRAULIC PRESS TENDER) Anatomical Region Laterality Modality Other Narrative Procedure Note Trey Arroyo MD - 08/02/2024 1:15 PM CST [facility] Patient Name: Naye Cantu Procedure Date: 08/02/2024 1:15 PM Date of : 1965 Admit Type: Outpatient Age: 58 Gender: Female Attending MD: Trey Arroyo M.D. Room: [facility] END[facility]COPY [facility] 8 Note Status: Addendum Procedure: [...] passed under direct vision. The GIF [id number] endoscope was introducedthrough the mouth, and advanced [...] business hours - Please call theNurse Coordinator: [phone] After hours, evening, nights, weekends and holidays- Please call the hospital masking machine operator at and ask for the GI fellow review consultant. Attending Participation: I personally performed the entire [...] * Hepatitis C antibody (07/06/2020 2:58 PM HYDRAULIC PRESS TENDER) Hep C Ab NON-REACTI VE NON-REACT GIA [facility] SIGNAL TO CUT-OFF 0.02 <1.00 [facility] Comment: HCV antibody was non-reactive. There is no laboratory evidence of HCV infection. In most cases, no further action is required. However, if recent HCV exposure is suspected, a test for HCV RNA (test code 71976) is suggested. For additional information please refer to http://education.[employer] [facility]/faq/IHW56f9 (This link is being provided for informational/ educational purposes only.) Blood specimen (specimen) 07/06/2020 2:58 PM HYDRAULIC PRESS TENDER 07/06/2020 3:00 PM HYDRAULIC PRESS TENDER Narrative [facility] - 07/11/2020 9:33 PM HYDRAULIC PRESS TENDER PATIENT UNABLE TO VOID; ADVISED TO RETURN FOR COLLECTION. Olga MONTES LAB MICROBIOLOGY - GENERA L ORDERABLES Final Result [facility] [address] [phone] from Last 3 Months or Most Recently Relevant to Health Maintenance Insurance MEDICARE IDPA MEDICARE IDND MEDICARE [facility] MEDICARE MEDICARE IDPA Advance Directives For more information, please contact: [phone] * Full Code (Latest Code Status on [...] 6:47 AM 04/25/2020 10:09 PM Care Teams Mobile Web Application Developer Relationship Specialty Start Date End Date Tom Paz MD PCP - General 09/09/16 Tab Taylor MD [address] [place] [address] Consulting Physician Cardiology 01/03/20 Favian Caceres MD [address] [place] [address] Consulting Physician Rheumatology 08/28/23
--- OUTSIDE RECORDS SUMMARY | 2024-09-30 14:56 | XMS_ITS | Encounter Summary ---
Author Organization [facility] Healthcare Address [address] [place] [address] Care Team Providers Care Fig Washer Name Role Phone Tom Paz MD Primary Care Provider + [phone] Tab Taylor MD Unavailable [phone] Favian Caceres MD Unavailable [phone] Encounter Details Date Type Department Care Team (Late st Contact Info) Description 02/11/2024 Documentation [facility] Case Management [address] [place], [place] [id number] Gaviota Benz, RN Social History Tobacco Use Types Packs/Day Years Used Date Smoking Tobacco: Never Passive Smoke Exposure: Past Smokeless Tobacco: Never Alcohol Use Standard Drinks/Week Comments No 0 (1 standard drink = 0.6 oz pur e alcohol) [facility] Utilities Answer Date Recorded In the past 12 months has [employer], gas, oil, or water Adyen threatened to shut off services in your [...] often do you attend chur ch or anglican services? More than 4 times per year 02/11/2024 Do you belong to any clubs o r organizations such as christianity groups, unions, fraternal or athletic groups, or [...] place to sleep or slept in a penitentiary (including now)? No 11/02/2023 Housing Stability Vital Sign Answer Thang e Recorded In the last 12 months, was t here a time when you were not able to pay the mortgage or rent on time? No 02/11/2024 In the past 12 months, how m any times have you moved where you were living? 0 02/11/2024 At any time in the past 12 m [facility], were you homeless or living in a penitentiary (including now)? No 02/11/2024 Personal Safety Answer Date Recorded Have you ever been in or are you currently in a harmful physical or emotional relationship or is someone making you feel afraid or unsafe? 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 [address] [id number] [place] [address] [facility] [address] [facility] - [place], [place] - [address] [facility] [address] [facility] [address] 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..] reports needing assistance with ADLs. 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 2. Return patient to optimal level of self-care post discharge. 3. Tab Cutter will follow for Discharge Planning - interventions as needed 4. Anticipated level of care at discharge 5. Planned Discharge Disposition SONALI Brothers, RN resource director [phone] documented in this encounter Plan of Treatment [...] on stairs Contact your local community or [facility] for information on exercise, fall prevention programs, or options for improving home safety. documented as of this encounter Visit Diagnoses Not on filedocumented in this encounter Care Teams Fig Washer Relationship Specialty Start Date End Date Tom Paz MD PCP - General 09/09/16 Tab Taylor MD [address] [place] [address] Consulting Physician Cardiology 01/03/20 Favian Caceres MD [address] [place] [address] Consulting Physician Rheumatology 08/28/23 documented as of this encounter
--- OUTSIDE RECORDS SUMMARY | 2024-09-30 14:56 | XMS_ITS | Continuity of Care Document ---
Author Organization [facility] Address [address] [place] [address] [address] [place] [address] Phone Care Team Providers Care Senior Dentist Name Role Phone Anthony Gutierrez Unavailable Unavailable [...] Providers Copied on Encounter Office/outpat ient Visit, [facility], [address] [place] [address] [address], [place], [place], [id number], [place] tel:[phone] [facility] No Information 0 0 Krishnasamy Anthony. [address] [facility] [address], [place], [address], [place]. tel:[phone] Office/outpat ient Visit, [facility], [address] [place] [address] [address], [place], [place], [id number], [place] tel:[phone] [facility] [place] No Information 0 0 Krishnasamy Anthony. [address] [facility] [place] [address], [place], [place], [facility], [place]. tel:[phone] Office/outpat ient Visit, Est [facility] Eye [facility], [address] [place] [address] [address], [place], [place], [id number], [place] tel:[phone] [facility] No Information Fe-2 3-201 0 Krishnasamy Anthony. [address] [facility] [place] [address], [place], [place], [facility], [place]. tel:[phone] [facility] Eye [facility], [address] [place] [address] [address], [place], [place], [id number], [place] tel:[phone] [facility] No Information Jan-3 1-200 9 Krishnasamy Anthony. [facility] [address], [place], [place], [facility], [place]. tel:[phone] [facility], [address] [place] [address] [address], [place], [place], [id number], [place] tel:[phone] [facility] No Information You-2 2-200 9 Krishnasamy Anthony. [address] [place], [place] [address]ate [place] [address], [place], [place], [facility], [place]. tel:[phone] [facility], [address] [place] [address] [address], [place], [place], [id number], [place] tel:[phone] [facility] [place] No Information May-0 8-200 9 Krishnasamy Anthony. [facility] [place] [address], [place], [place], [facility], [place]. tel:[phone] [facility], [address] [place] [address], [place], [place], [id number], [place] tel:[phone] [facility] No Information Apr-2 8-200 7 Montes OD Simone. [address] [place] [address], [place], [place], [facility], [place]. tel:[phone] Family History Family Member Type Diagnosis Age At Onset No Information Payers Payer name Insurance type Covered alliance party ID Authoriza tion(s) Medicare [facility] [id number] Medicaid [facility] [id number] Social History Type Description Quantity Date Captured [...]
--- OUTSIDE RECORDS SUMMARY | 2024-09-30 14:56 | XMS_ITS | Clinical Summary ---
Author Organization [facility] Address [address] [place] [address] Care Team Providers Care Respiratory Technician Name Role Phone Tom Paz MD Primary Care Provider [phone] Allergies Active Allergy Reactions Criticality Noted Date [...] blisters Etanercept Swelling Low 12/09/2023 Embrel Gum Pekbhe-Ttzgvb-Idoy-Alcoho l Rash Low 12/09/2023 Mastisol - blisters [...] this topic Medical Devices Implanted Type Area Reclamation Worker Device Identifier Shelf Expiration Date Model / Serial / Lot Tyrx Antibacterial Envelope Med [id number] - [id number] Implanted:Qty: 1 on 12/24/2023 at [facility] Mesh Left: Chest [employer]- CARD RHYTHM MGMT 10/01/2024 [id number] / / [id number] Neuro Stimulator Neuro Stimulator [employer] SC-1200 / / Description:leads: SC- Need lead numbers Dc Ppm Gen Implanted:Qty: 1 on 12/24/2023 by Burton Forbes MD at [facility] N/A: Chest Wall [id number] / [id number] / Explanted Type Area Reclamation Worker Device Identifier Shelf Expiration Date Model / Serial / Lot Dc Eluna 8 Ppm Gen Explanted:Qty: 1 on 12/24/2023 by Burton Forbes MD at [facility] Pacemaker Chest Wall [employer] ELUNA 8 KRISTY / [id number] / Description:Implant date: Per [employer] Rep - NOT MRI safe (extra cap lead -ABANDONED LEAD - NO MRI -lizandro 08/14/23 [address] [place] [address] MEDICARE PART A AND B [facility] [id number] [place] [address] MEDICARE PART A AND B [address] [place] [address] RX [employer] Member Subscriber Plan / Payer (Ef fective 2023-Present) Name:Naye Hart Relation to Subscriber:Self Name:Naye Hart Subscriber ID:Not on file Payer ID:Not on file Group ID:[id number] Type:RX Commercial Address: [address] Advance Directives For more information, please contact: [phone] Documents on File Type Date Recorded Patient Manager Personnel Selection Expl anation Advance Directive POA 12/24/2023 8:33 AM Ad valenzuela Directive POA * Full Code (Latest Code Status on File) Date Activated Date Inactivated Comments 12/24/2023 3:32 PM 12/25/2023 12:17 PM Care Teams Respiratory Technician Relationship Specialty Start Date End Date Tom Paz MD [address] [place] [address] PCP - General Family Practice 01/28/22
--- OUTSIDE RECORDS SUMMARY | 2024-09-30 14:56 | XMS_ITS | Referral Summary ---
Author Organization [facility] al Address [address] [place] [address] Care Team Providers Care Vehicle Controls Engineer Name Role Phone Tom Paz MD Primary Care Provider + [phone] Tab Taylor MD Unavailable [phone] Favian Caceres MD Unavailable [phone] Encounters Date Type Department Care Team Description 09/02/2024 Telephone [facility] Dermatology [address] [place] [address] [address] [place] [phone] Va Maharaj Request Call Back 08/25/2024 7:24 AM BENCH CHEMIST - 08/25/2024 11:59 PM BENCH CHEMIST Hospital Encounter [facility] Radiology [address] [place] [address] Transient ischemic attack (TIA); Cerebrovascular disease, unspecified; Unspecified visual loss; Presence of cardiac pacemaker Discharge Disposition: Discharge to home or self care 08/25/2024 Orders Only [facility] Radiology [address] [place] [address] Katarzyna Gil, 08/23/2024 12:12 PM BENCH CHEMIST - 08/23/2024 11:59 PM BENCH CHEMIST Hospital Encounter [facility] Radiology [facility] [address] [place] [address] Pacemaker reprogramming/check ; Complete heart block (HCC) Discharge Disposition: Discharge to home or self care 08/23/2024 11:30 AM BENCH CHEMIST Office Visit [facility] Cardiology [address] [facility] 8th [place] [address] [place] [address] Elise Ibarra NP Pacemaker reprogramming/check (Primary Dx); Complete heart block (HCC) 08/23/2024 11:00 AM BENCH CHEMIST Ancillary Procedure [facility] Cardiology [address] [place] [address] 8th [place] [address] [place] [address] Pacemaker reprogramming/check 08/23/2024 Orders Only [facility] Cardiology [address] [place] [address] 8th [place] [address] [place] [address] Elise Ibarra NP Pacemaker reprogramming/check (Primary Dx) 08/02/2024 12:30 PM BENCH CHEMIST - 08/02/2024 1:30 PM BENCH CHEMIST Surgery [address] [address] Trey Arroyo MD COLON BIOPSY 08/02/2024 1:07 PM BENCH CHEMIST Anesthesia Event [address] [address] Rui Fuller MD McGowan, Jessica Lynn, NP 08/02/2024 11:02 AM BENCH CHEMIST - 08/02/2024 3:29 PM BENCH CHEMIST Hospital Encounter [address] [address] Trey Arroyo MD Dysphagia, unspecified type; Dyspepsia; Diarrhea, unspecified type Discharge Disposition: Discharge to home or self care 07/28/2024 10:30 AM BENCH CHEMIST Office Visit [facility] [address] [place] [address] Claudia Cristobal PA Seronegative rheumatoid arthritis (HCC) (Primary Dx); Encounter for long-term (current) use of high-risk medication 07/26/2024 Telephone [facility] Specialty Services [address] [place] [address] Sarina Posey RN GI PROCEDURE 7 DAY PRE CALL 07/26/2024 Orders Only [facility] Health Information Management [address] [facility] [place] [address] Scanning, Provider 07/14/2024 10:30 AM BENCH CHEMIST Pre-Admission Testing [facility] Center for Preoperative Assessment and Planning [facility] ([facility]) [address] [place] [address] from Last 3 Months Allergies Active Allergy [...] - blisters Etanercept Itching Low 02/24/2022 Gum Blanket Unknown 05/12/2023 Gum Gzojla-Ylzjzz-Fioe-Alcoho l Blisters,Rash High 12/17/2021 Mastisol - blisters [...] 02/07/2021 Assessment & Plan (07/28/2024 11:19 AM BENCH CHEMIST): Monitor routine labs while on immunosuppressive medications. [...] QuantGold Assessment & Plan (09/22/2023 12:26 PM BENCH CHEMIST): Monitor routine labs while on immunosuppressive medications. [...] QuantGold Assessment & Plan (09/11/2022 12:48 PM BENCH CHEMIST): Monitor routine labs while on immunosuppressive medications. Recent 08/20 labs stable. 06/2020: Neg Hep B/C 03/2021: Neg QuantGold Assessment & Plan (07/01/2022 9:25 AM BENCH CHEMIST): Monitor routine labs while on immunosuppressive medications. [...] QuantGold Assessment & Plan (08/19/2021 2:31 PM BENCH CHEMIST): Monitor routine labs while on immunosuppressive medications. [...] Hospitalized for total of 8 days, at [facility] and then [facility]. Had CT brain/neck angio that were [...] Hospitalized for total of 8 days, at [facility] and then [facility]. Had CT brain/neck angio that were [...] 07/24/2020 Assessment & Plan (07/24/2020 12:34 PM BENCH CHEMIST): Her greatest pain complaint at this time [...] 07/24/2020 Assessment & Plan (07/01/2022 2:12 PM BENCH CHEMIST): Self weaned off Cymbalta 2 days ago [...] exercise. Assessment & Plan (08/27/2020 2:41 PM BENCH CHEMIST): Fatigue with sensation of pain all over [...] exercise. Assessment & Plan (07/24/2020 12:36 PM BENCH CHEMIST): Fatigue with sensation of pain all over [...] PT. Assessment & Plan (08/28/2020 12:26 PM BENCH CHEMIST): Multifocal OA (hands and hips) per recent xrays. Continue Tylenol 500 mg qid. Continue PT. Assessment & Plan (07/24/2020 12:41 PM BENCH CHEMIST): Multifocal OA (hands and hips) per recent [...] thickening. Assessment & Plan (07/28/2024 11:22 AM BENCH CHEMIST): Off MTX (oral ulcers/hair thinning). Remains on [...] increase blood glucose, glaucoma and osteopenia with salvage determiner use of steroids. She was strongly encouraged [...] needed. Assessment & Plan (09/22/2023 12:32 PM BENCH CHEMIST): A 09/2022 repeat left hand/wrist US demonstrated [...] needed. Assessment & Plan (09/11/2022 12:48 PM BENCH CHEMIST): Continued 15mg MTX weekly and monthly Simponi [...] Chan. Assessment & Plan (08/06/2022 9:00 PM BENCH CHEMIST): Has continued 15mg MTX weekly as well [...] we have no access to them through [employer]. She already had an OV scheduled for 09/02 - will re-evaluate joints at that time and consider repeat hand US if synovitis is absent/minimal on exam but she is still noting pain -to evaluate for underlying inflammation. She may require change in biologic medication. Assessment & Plan (07/01/2022 2:09 PM BENCH CHEMIST): CDAI 37, high Off Enbrel due to ISRs. Continued MTX and Simponi injections. Noted improvement after prednisone taper at last visit. Joints were feeling good until a few weeks ago when she returned from a trip to [place] an self weaned off Cymbalta. Now with [...] She is to follow up with her universal banker soon due to low BP following her [...] increase blood glucose, glaucoma and osteopenia with salvage determiner use of steroids. Continue 15mg MTX weekly [...] Chan. Assessment & Plan (08/19/2021 9:00 PM BENCH CHEMIST): CDAI 25. On 15mg MTX weekly but has only taken 3 Enbrel injections so far. Just completed a medrol dose pack from her universal banker due to inflammation around her heart (pericarditis?). [...] incontinence. Has followed up with PCP and universal banker - started Ubrelvy for JACKSON and universal banker is to adjust her pacemaker on 05/23. [...] pen with her during her trip to [place] (leaves and returns around the ). A letter was provided for [facility] to allow Humira to be brought [...] needed. Assessment & Plan (08/28/2020 12:26 PM BENCH CHEMIST): Our workup showed an JANNET 1:160 but [...] needed. Assessment & Plan (07/24/2020 12:33 PM BENCH CHEMIST): 54yoF referred for evaluation due to +JANNET [...] reassess. Assessment & Plan (07/06/2020 4:49 PM BENCH CHEMIST): 54yoF referred for evaluation due to +JANNET [...] (12/13/2019): Added automatically from request for surgery [id number] SVT (supraventricular tachycardia) 12/13/2019 Overview (12/13/2019): Added automatically from request for surgery [id number] A-fib 11/24/2019 Overview (11/24/2019): Added automatically from request for surgery [id number] Laryngopharyngeal reflux (LPR) 08/04/2018 Assessment & Plan (10/20/2018 12:26 PM CDT): No longer taking the omeprazole and ranitidine as prescribed. Patient is no longer experiencing any coughing, sinonasal or throat symptoms. Assessment & Plan (08/04/2018 1:17 PM BENCH CHEMIST): Add omeprazole 40 mg Q morning 30 [...] resume. Assessment & Plan (08/04/2018 1:11 PM BENCH CHEMIST): Patient's chronic cough is most likely secondary [...] reactive airway disease contributing to her cough. 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 More than 4 times per year 02/11/2024 Do you belong to any clubs o r organizations such as scientologist groups, unions, fraternal or athletic groups, or [...] place to sleep or slept in a custodial (including now)? No 11/02/2023 Housing Stability Vital Sign Answer Thang e Recorded In the last 12 months, was t here a time when you were not able to pay the mortgage or rent on time? No 02/11/2024 In the past 12 months, how m any times have you moved where you were living? 0 02/11/2024 At any time in the past 12 m [facility], were you homeless or living in a custodial (including now)? No 02/11/2024 Personal Safety Answer Date Recorded Have you ever been in or are you currently in a harmful physical or emotional relationship or is someone making you feel afraid or unsafe? Denies 08/02/2024 Comments No Sex and Gender Information Value Date Recorded Sex Assigned at Not on file Legal Sex Female 12:21 AM BENCH CHEMIST Gender Identity Not on file Sexual Orientation Not on file Last Filed Vital Signs Vital Sign Reading Time Taken Comments Blood Pressure 125/71 08/25/2024 8:38 AM BENCH CHEMIST Pulse 73 08/25/2024 8:38 AM BENCH CHEMIST Temperature 36 C (96.8 F) 08/02/2024 2:20 PM BENCH CHEMIST Respiratory Rate 10 08/02/2024 2:40 PM BENCH CHEMIST Oxygen Saturation 97% 08/25/2024 8:38 AM BENCH CHEMIST Inhaled Oxygen Concentration - - Weight 88.6 kg (195 lb 6.4 oz) 08/23/2024 11:23 AM BENCH CHEMIST Height 172.7 cm (5' 8 ) 08/23/2024 11:23 AM BENCH CHEMIST Body Mass Index 29.71 08/23/2024 11:23 AM BENCH CHEMIST Plan of Treatment Not on file Goals [...] on stairs Contact your local community or [facility] for information on exercise, fall prevention programs, or options for improving home safety. Medical Devices Implanted Type Area Collections Manager Device Identifier Shelf Expiration Date Model / Serial / Lot Ivc Filter- 7 Implanted:Qty: 1 on 06/09/2007 by Tam Fraser MD IVC Filter N/A: Vena Cava Lead-Spinal Cord Stimulator- 018 Implanted:2017 by Taran Ramirez MD (Quantity not on file) Lead Back [employer] SC-2158- 50 / / Biotronik Ra Lead ([id number])- 019 Implanted:2018 (Quantity not on file) Lead Chest Biotronik SOLIA S [id number] / [id number] / Lead (Rv)-05/23/2021 Implanted:2020 (Quantity not on file) Lead Heart Biotronik SOLIA S 53 377 177 / [id number] / Biotronik Paceomaker Ariana Kaur-12/24/2023 Implanted:2023 (Quantity not on file) Pacemaker Chest Wall Biotronik [id number] / [id number] / Spinal Cord Stimulator- 018 Implanted:Qty: 1 on 08/20/2017 by Taran Ramirez MD Spinal Cord Stimulator N/A: Back [employer] SC-1200 / [id number] / Spinal Cord Stimulator Lead-08/20/2017 Implanted:2017 by Taran Ramirez MD (Quantity not on file) Spinal Cord Stimulator Back [employer] Neuro- [id number] / / Hardware Thoracic-L umbar Spine Loop Recorder Chest Wall Chris V[employer] System Closure Repair Femoral Artery Suture Mediated Perclose Prostyle 17207-38 - [id number] Implanted:Qty: 1 on 02/09/2024 by Morgan Roy MD at [facility] 11/16/2025 [id number] / / [id number] [employer] Percutaneous Transcatheter Amplatzer Amulet 18mm [id number] - [id number] Implanted:Qty: 1 on 02/09/2024 by Morgan Roy MD at [facility] 09/17/2027 9-[id number] [id number] / / [id number] Chris Vascular System Closure Repair Femoral Artery Suture Mediated Perclose Prostyle 83710-75 - [id number] Implanted:Qty: 1 on 02/09/2024 by Morgan Roy MD at [facility] 11/16/2025 10813-72 / / [id number] [employer] Sling Urinary Incontinence Female Stress Short Desara Blue Sis-Ds01bs - [id number] Implanted:Qty: 1 on 06/28/2024 by Shankar Mak MD at [facility] N/A: Urethra [employer] 01/04/2027 SIS-DS01 BS / / [id number] Explanted Type Area Collections Manager Device Identifier Shelf Expiration Date Model / Serial / Lot Biotronik Rv Lead ([id number])-07/04 Implanted:Qty: 1 on 07/04/2019 Explanted:Qty: 1 Lead Chest Biotronik [id number] / / Description:This lead was re placed and left behind per patient on 05/23/21 Biotronik Pacemaker ([id number])-07/04 Implanted:Qty: 1 on 07/04/2019 Explanted:Qty: 1 on 12/24/2023 Pacemaker Left: Chest Biotronik BENITO CARBAJAL / [id number] / [id number] Procedures Procedure Name Priority Date/Time Associated Diagnosis Comments XR SPINE THORACOLUMBAR JUNCT ION 2 OR MORE VIEWS Schedule Routine, Read Routine (OP Routine) 08/25/2024 7:35 AM BENCH CHEMIST Transient ischemic attack (TIA) Cerebrovascular disease, unspecified Unspecified visual loss Presence of cardiac pacemaker XR CHEST PA LATERAL 2 VIEWS Schedule RY, Read RY (Appt Today, Awaiting Results) 08/23/2024 12:16 PM BENCH CHEMIST Pacemaker reprogramming/c heck Complete heart block (HCC) DEVICE CHECK - IN OFFICE Routine 025 10:57 AM BENCH CHEMIST Pacemaker reprogramming/c heck COLONOSCOPY 08/02/2024 1:43 PM BENCH CHEMIST SURGICAL PATHOLOGY Routine 08/02/2024 1:26 PM BENCH CHEMIST Dysphagia, unspecified type Dyspepsia Diarrhea, unspecified type EGD 08/02/2024 1:15 PM BENCH CHEMIST ESOPHAGOGASTRODUODENOSCOPY BIOPSY 08/02/2024 1:12 PM BENCH CHEMIST Dysphagia, unspecified type Dyspepsia Diarrhea, unspecified type COLON BIOPSY 08/02/2024 1:12 PM BENCH CHEMIST Dysphagia, unspecified type Dyspepsia Diarrhea, unspecified type SCAN - OTHER ORDERS 07/26/2024 HEPATITIS C ANTIBODY Routine 07/06/2020 2:58 PM BENCH CHEMIST Polyarthralgia Encounter for screening for other viral diseases from Last 3 Months or Most Recently Relevant to Health Maintenance Results * XR Spine Thoracolumbar Junction 2 or More Views (08/25/2024 7:35 AM BENCH CHEMIST) Anatomical Region Laterality Modality Spine N/A Computed Radiogr aphy 08/25/2024 7:45 AM BENCH CHEMIST Impressions 08/25/2024 7:45 AM BENCH CHEMIST 1. Thoracic stimulator device in place with [...] Nehemias Simons D.O. Narrative 08/25/2024 7:45 AM BENCH CHEMIST EXAMINATION: XR SPINE THORACOLUMBAR JUNCTION 2 OR [...] Pa Lateral 2 Views (08/23/2024 12:16 PM BENCH CHEMIST) Anatomical Region Laterality Modality Body, Chest N/A Computed Radiogr aphy 08/23/2024 2:08 PM BENCH CHEMIST Impressions 08/23/2024 4:13 PM BENCH CHEMIST FINDINGS/IMPRESSION: Left subclavian approach pacemaker with leads [...] Arpit Mcclelland M.D. Narrative 08/23/2024 4:13 PM BENCH CHEMIST EXAMINATION: XR CHEST PA LATERAL 2 VIEWS [...] CHECK - IN OFFICE (08/23/2024 10:57 AM BENCH CHEMIST) Anatomical Region Laterality Modality Other 08/23/2024 2:00 AM BENCH CHEMIST Narrative 08/27/2024 9:33 PM BENCH CHEMIST Interpretation Summary: Battery and Leads (BL) Normal parameters noted on battery and lead(s) --- Estimate 10 years to TEREZA Procedure Note Leonardo Grimm MD - 08/27/2024 Interpretation Summary: Battery and Leads (BL) Normal parameters noted on battery and lead(s) --- Estimate 10 years toERI us Elsie Ibarra NP [facility] PROCE DURES Final Result * Colonoscopy (08/02/2024 1:43 PM BENCH CHEMIST) Anatomical Region Laterality Modality Other Narrative Procedure Note Trey Arroyo MD - 08/02/2024 1:43 PM CST [facility] ENDOSCOPY [facility] Patient Name: Naye Cantu Procedure Date: 08/02/2024 1:43 PM Date of : 1965 Admit Type: Outpatient Age: 58 Gender: Female Attending MD: Trey Arroyo M.D. Room: [facility] ENDOSCOPY ROOM 8 Note Status: [...] The scope was passed under direct vision.The [id number] endoscope was introduced through the anus and advanced to the terminal ileum. The colonoscopy was performed without difficulty. The patient tolerated the procedure well. The qualityof the bowel preparation was evaluated using the BBPS ([place] Bowel Preparation Scale) with scores of:Right Colon [...] business hours - Please call theNurse Coordinator: [phone] After hours, evening, nights, weekends and holidays- Please call the hospital computer aided design operator at and ask for the GI fellow expansion envelope maker hand. Attending Participation: I was present and participated during the entire procedure, including non-patrick portions. Electronically signed by Trey Arroyo MD Trey Arroyo M.D. 08/02/2024 2:08:56 PM . Number of Addenda: 0 Note Initiated On: 08/02/2024 1:43 PM Trey Arroyo MD ENDOSCOPY PROCEDURES Final Result * Surgical pathology (08/02/2024 1:26 PM BENCH CHEMIST) Tissue (Duodenum, Biopsy) 08/02/2024 1:26 PM BENCH CHEMIST Tissue (Gastric/Stomach biopsy) 08/02/2024 1:29 PM BENCH CHEMIST Tissue (Esophageal biopsy) 08/02/2024 1:38 PM BENCH CHEMIST Tissue (Colon, Biopsy) 08/02/2024 2:02 PM BENCH CHEMIST Narrative PATHOLOGY [facility] - 08/05/2024 10:16 AM BENCH CHEMIST EPIC results best viewed via link to PDF [facility] [place] [address] Note to Patients: This report may contain [...] Gender: F : 1965 (Age: 58) Address: [address] [place] [address] [facility] #: [id number] Taken:08/02/2024 Received:08/02/2024 Reported: 08/05/2024 Patient Type: [facility] Service: Gastroenterology Location: Physician(s): Pb Steward M.D. [...] Surgical Pathology and Flow Cytometry Departments at [facility] as part of an ongoing corporate quality manager program and in compliance with federally mandated [...] Surgical Pathology and Flow Cytometry Departments of [facility]. It has not been cleared or approved by the U. S. Food and Drug Administration. IMAGES AND SCANNED DOCUMENTS, IF INCLUDED, ONLY VIEWABLE IN PDF VERSION OF REPORT us Trey Arroyo MD LAB PATHOLOGY ORDERAB LES Final Result PATHOLOGY [facility] 3rd Floor [place], [place] [phone] * EGD (08/02/2024 1:15 PM BENCH CHEMIST) Anatomical Region Laterality Modality Other Narrative Procedure Note Trey Arroyo MD - 08/02/2024 1:15 PM CST [facility] ENDOSCOPY [facility] Patient Name: Naye Cantu Procedure Date: 08/02/2024 1:15 PM Date of : 1965 Admit Type: Outpatient Age: 58 Gender: Female Attending MD: Trey Arroyo M.D. Room: [facility] ENDOSCOPY ROOM 8 Note Status: [...] passed under direct vision. The GIF [id number] endoscope was introducedthrough the mouth, and advanced [...] During normal business hours - [facility] Coordinator: [phone] After hours, evening, nights, weekends and holidays- Please call the hospital computer aided design operator at and ask for the GI fellow expansion envelope maker hand. Attending Participation: I personally performed the entire [...] * Hepatitis C antibody (07/06/2020 2:58 PM BENCH CHEMIST) Hep C Ab NON-REACTI VE NON-REACT GIA [facility] SIGNAL TO CUT-OFF 0.02 <1.00 [facility] Comment: HCV antibody was non-reactive. There is no laboratory evidence of HCV infection. In most cases, no further action is required. However, if recent HCV exposure is suspected, a test for HCV RNA (test code 46071) is suggested. For additional information please refer to http://education.Bri[employer] Mobile/faq/QGN37t2 (This link is being provided for informational/ educational purposes only.) Blood specimen (specimen) 07/06/2020 2:58 PM BENCH CHEMIST 07/06/2020 3:00 PM BENCH CHEMIST Narrative [facility] - 07/11/2020 9:33 PM BENCH CHEMIST PATIENT UNABLE TO VOID; ADVISED TO RETURN FOR COLLECTION. Olga MONTES LAB MICROBIOLOGY - GENERA L ORDERABLES Final Result [facility] [address] [place] [address] from Last 3 Months or Most Recently Relevant to Health Maintenance Insurance MEDICARE IDWI MEDICARE [facility] [address] [place] [id number] MEDICARE [facility] [address] [place] [address] MEDICARE [address] [place] [id number] MEDICARE IDPA Advance Directives For more information, please contact: [phone] * Full Code (Latest Code Status on [...] 6:47 AM 04/25/2020 10:09 PM Care Teams Vehicle Controls Engineer Relationship Specialty Start Date End Date Tom Paz MD PCP - General 09/09/16 Tab Taylor MD [address] [place] [address] Consulting Physician Cardiology 01/03/20 Favian Caceres MD [address] [place] [address] Consulting Physician Rheumatology 08/28/23
--- OUTSIDE RECORDS SUMMARY | 2024-09-30 14:56 | XMS_ITS | Encounter Summary ---
Author Organization [facility] Healthcare Address [address] [place] [address] Care Team Providers Care Inventory Management Specialist Name Role Phone Tom Paz MD Primary Care Provider [phone] Tab Taylor MD Unavailable [phone] Favian Caceres MD Unavailable [phone] Reason for Visit * Reason Onset Date Comments Scheduling Appointments 04/15/2024 Schedule patient for Imaging Genicular RFA Right (57349) and 1m follow Encounter Details Date Type Department Care Team (Late st Contact Info) Description 04/15/2024 Telephone [facility] at [facility] [address] [address], [address] [place] [address] Dougie Lord MD [address] [address] Scheduling Appointments (Schedule patient for Imaging Genicular RFA Right (35756) and 1m follow ) Social History Tobacco Use Types Packs/Day Years Used Date Smoking Tobacco: Never Passive Smoke Exposure: Past Smokeless Tobacco: Never Alcohol Use Standard Drinks/Week Comments No 0 (1 standard drink = 0.6 oz pur e alcohol) [facility] Utilities Answer Date Recorded In the past 12 months has [employer], gas, oil, or water company threatened [...] How often do you attend chur or islam services? More than 4 times per year 02/11/2024 Do you belong to any clubs o r organizations such as holiness groups, unions, fraternal or athletic groups, or [...] place to sleep or slept in a fdc (including now)? No 11/02/2023 Housing Stability Vital Sign Answer Thang e Recorded In the last 12 months, was t here a time when you were not able to pay the mortgage or rent on time? No 02/11/2024 In the past 12 months, how m any times have you moved where you were living? 0 02/11/2024 At any time in the past 12 m [facility], were you homeless or living in a fdc (including now)? No 02/11/2024 Personal Safety Answer Date Recorded Have you ever been in or are you currently in a harmful physical or emotional relationship or is someone making you feel afraid or unsafe? 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
--- OUTSIDE RECORDS SUMMARY | 2024-09-30 14:56 | XMS_ITS | Continuity of Care Document ---
Author Organization [facility] Address [address] [facility] [address] [place] [address] Phone Care Team Providers Care Saw Grinder Name Role Phone Nayely MAURICIO OD, Denise [...] EST REFRACTION Medicare OFFICE/OUTPATIENT VISIT, EST REFRACTION [facility] OFFICE/OUTPATIENT VISIT, EST OFFICE/OUTPATIENT VISIT, EST REFRACTION [facility] OFFICE/OUTPATIENT VISIT, EST REFRACTION MEDICARE [...] TIENT VISIT, EST [facility], [address] [place] [address], [id number], tel:[phone] OPH CONSULT [facility] flash of light OS (chief complaint) Age-related nuclear cataract, bilateralTea r film insufficienc y of bilateral lacrimal glandsOther vitreous opacities, bilateral Feb-0 - 5 Derheimer OD Denise. [address], [address], [place], [place], [id number], [place]. tel:[phone] Referring Provider: Tom Sapp, [address] [place], [place], [address]. tel:[phone] OFFICE/OUTPA TIENT VISIT, EST [facility], [address] [place] [address], [place], [place], [id number], tel:[phone] OPH CONSULT [facility] Pain OS (chief complaint) Left eye painAge-rela jaden nuclear cataract, bilateralOth er vitreous opacities, bilateralTea r film insufficienc y of bilateral lacrimal glands Apr-0 - 4 Krishnasamy Anthony. [address], [address], [place], [place], [id number], [place]. tel:[phone] Referring Provider: Tom Sapp, [address] [place], [place], [address]. tel:[phone] OFFICE/OUTPA TIENT VISIT, EST [facility], [address] [place] [address], [place], [place], [id number], [place] tel:[phone] OPH CONSULT [facility] blurry vision (chief complaint) Age-related nuclear cataract, bilateralTea r film insufficienc y of bilateral lacrimal glandsOther vitreous opacities, bilateralDip lopiaHyperme tropia, bilateral Oct-2 -202 3 Krishnasamy Anthony. [address], [address], [place], [place], [id number], . tel:[phone] Referring Provider: Tom Sapp, [address], [place], [address]. tel:[phone] OFFICE/OUTPA TIENT VISIT, EST [facility], [address] [place] [address], [id number], tel:[phone] OPH CONSULT [facility] blurry VA (chief complaint) Tear film insufficienc y of bilateral lacrimal glandsOther vitreous opacities, bilateralAge -related nuclear cataract, bilateralDip lopiaHyperme tropia, bilateral Mar-1 0-202 2 Krishnasamy Anthony. [address], [place], [place], [id number], [place]. tel:[phone] Referring Provider: Tom Sapp, [address], [place], [address]. tel:[phone] OFFICE/OUTPA TIENT VISIT, EST [facility], [address] [place] [address], [id number], [place] tel:[phone] OPH CONSULT [facility] shingles (chief complaint) Herpes zoster without complication Tear film insufficienc y of bilateral lacrimal glands Apr- 1 Krishnasamy Anthony. [address] , [address], [place], [place], [id number], [place]. tel:[phone] Referring Provider: Tom Sapp, [address], [place], [address]. tel:[phone] OFFICE/OUTPA TIENT VISIT, EST [facility], [address] [place] [address], [id number], [place] tel:[phone] OPH CONSULT [facility] blurry (chief complaint) DiplopiaAge- related nuclear cataract, bilateralTea r film insufficienc y of bilateral lacrimal glandsOther vitreous opacities, bilateralHyp ermetropia, bilateral Nov- 9 Krishnasamy Anthony. [address], [address], [id number], . tel:[phone] Referring Provider: Anthony Gutierrez [address], [place], [place], [id number]. tel:[phone] OFFICE/OUTPA TIENT VISIT, EST [facility], [address] [place] [address], [id number], tel:[phone] OPH CONSULT [facility] blurry vision (chief complaint) Tear film insufficienc y of bilateral lacrimal glandsOther vitreous opacities, bilateralDip lopiaHyperme tropia of both eyes Oct-3 0 8 Brenda Cruz. [address], [place], [place], [id number], . tel:[phone] Referring Provider: Anthony Gutierrez [address] [place] [address], [id number]. tel:[phone] OFFICE/OUTPA TIENT VISIT, EST [facility], [address] [place] [address], [id number], [place] tel:[phone] OPH CONSULT [facility] blurry vision (chief complaint)dr y eyes (chief complaint) DiplopiaOthe r vitreous opacities, bilateralTea r film insufficienc y of bilateral lacrimal glandsHyperm etropia of both eyes 7 Brenda Cruz. [address], [id number], [place]. tel:[phone] Referring Provider: Anthony Gutierrez, [address], [id number]. tel:[phone] OFFICE/OUTPA TIENT VISIT, EST [facility], [address] [place] [address], [id number], [place] tel:[phone] OPH CONSULT [facility] blurry vision (chief complaint) Reflex sympathetic dystrophy, unspecifiedT ear film insufficienc y, unspecifiedH ypermetropia of both eyesOther vitreous opacities, bilateralDip lopia Oct-0 5 6 Krishnasnina Garyhil. [address], [place], [place], [id number], [place]. tel:[phone] Referring Provider: Anthony Gutierrez, [address] [place] [address], [id number]. tel:[phone] OFFICE/OUTPA TIENT VISIT, NEW [facility], [address] [place] [address], [id number], [place] tel:[phone] Oph Consult [facility] Office blurry vision (chief complaint) Hypermetropi aTear film insufficienc y, unspecifiedO ther vitreous opacitiesDip lopiaReflex sympathetic dystrophy, unspecified Sep-2 5 Krishnasnina Anthony. [address], [address], [id number], [place]. tel:[phone] Referring Provider: Anthony Gutierrez, [address] [place] [address], [id number]. tel:[phone] OFFICE/OUTPA TIENT VISIT, EST [facility], [address] [place] [address], [id number], [place] tel:[phone] Oph Consult [facility] Office pain (chief complaint)bl urry vision (chief complaint)ir ritation (chief complaint) Tear film insufficienc y, unspecifiedR eflex sympathetic dystrophy, unspecifiedO ther vitreous opacitiesHyp ermetropiaDi plopia Aug-0 4 Krishnasamy Anthony. [address], [id number], [place]. tel:[phone] Referring Provider: Anthony Gutierrez, [address], [id number]. tel:[phone] OFFICE/OUTPA TIENT VISIT, EST [facility], [address] [place] [address], [id number], [place] tel:[phone] Oph Consult [facility] flashes at night (chief complaint) Other vitreous opacitiesTea r film insufficienc y, unspecifiedD iplopiaHyper metropia Sep- 3 Krishnasamy Anthony. [address], [place], [place], [id number], [place]. tel:[phone] Referring Provider: Anthony Gutierrez, [address], [place], [place], [id number]. tel:[phone] OFFICE/OUTPA TIENT VISIT, EST [facility], [address] [place] [address], [id number], [place] tel:[phone] OPH CONSULT [facility] double va occasionally (chief complaint) Tear film insufficienc y, unspecifiedR eflex sympathetic dystrophy, unspecifiedD iplopiaHyper metropia Mar-2 3 Krishmargaret Anthony. [address], [place], [place], [id number], [place]. tel:[phone] Referring Provider: Anthony Gutierrez, [address], [place], [place], [id number]. tel:[phone] OFFICE/OUTPA TIENT VISIT, EST [facility], [address] [place] [address], [id number], [place] tel:[phone] OPH CONSULT [facility] blurry vision (chief complaint) Tear film insufficienc y, unspecifiedD iplopia Sep-2 2 Krishnasamy Anthony. [address], [id number], [place]. tel:[phone] Referring Provider: Anthony Gutierrez, [address], [place], [id number]. tel:[phone] OFFICE/OUTPA TIENT VISIT, NEW [facility], [address] [place] [address], [place], [place], [id number], [place] tel:[phone] OPH CONSULT [facility] lost glasses (chief complaint) DiplopiaHead acheHypermet ropia 1 Brenda Cruz. [address], [place], [place], [id number], [place]. tel:[phone] Family History Family Member Type Diagnosis Age At Onset Son Problem (finding) Lazy eye Payers Payer name Insurance type Covered libertarian ID Authoriza tion(s) MEDIC[place] OF [place] MB [id number] [place] [id number] Social History Type Description Quantity Date Captured [...] not taking any gtts. Patient sees oscar richardsno and JEAN CLAUDE. Pain OS The 58 [...] Pt saw Dr Nai Sotelo at [facility] for prism. Pt did not update Rx, [...] does not include the prism. Check with [facility] orthoptics regarding prism OU Related to Hypermetropia [...] 080. Patient will see Ms. Oscar Richardson (wastewater engineer) @ [facility] for prisms/glasses. Related to Headaches Reflex sympathetic [...] 082. Patient will see Ms. Oscar Richardson (wastewater engineer) @ [facility] 12/24/2010 for motility exam and measurements for [...]
--- OUTSIDE RECORDS SUMMARY | 2024-09-30 14:56 | XMS_ITS | Clinical Summary ---
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
--- OUTSIDE RECORDS SUMMARY | 2024-09-30 14:56 | XMS_ITS | CONTINUITY OF CARE DOCUMENT ---
Author Name diaz perales Address Unknown Organization [facility] Address [address] [place] [address] Phone [phone] Care Team Providers Care Surveyor Mine Name Role Phone Tiago BRYANT, Hugo Unavailable MIRELA BRYANT, ANGEL F Unavailable [phone] MIRELA BRYANT, ANGEL F Unavailable [phone] PROBLEMS Condition Status Date Provider Notes Dual [...] In-person encounter Office Visit Hugo Ordoñez MD [facility] Office - In-person encounter Office Visit Hugo Ordoñez MD [facility] - In-person encounter Office Visit Hugo Ordoñez MD [facility] - In-person encounter Office Visit Trent Pike MD [facility] Office - In-person encounter Office Visit Hugo Ordoñez MD [facility] - In-person encounter Office Visit Hugo Ordoñez MD [facility] - In-person encounter Office Visit Morgan Roy MD [facility] Atrial Fibrillation s/p AMULETGroin pain, right - In-person encounter Office Visit Hugo Ordoñez MD [facility] Office - In-person encounter Office Visit Hugo Ordoñez MD [facility] - In-person encounter Office Visit Hugo Ordoñez MD [facility] - In-person encounter Office Visit Hugo Ordoñez MD [facility] Office - In-person encounter Office Visit Hugo Ordoñez MD [facility] - In-person encounter Office Visit Hugo Ordoñez MD [facility] - In-person encounter Office Visit Morgan Roy MD [facility] Office - In-person encounter Office Visit Hugo Ordoñez MD [facility] Ischemia, transient cerebral NOS - In-person encounter Office Visit Hugo Ordoñez MD [facility] - In-person encounter Office Visit Hugo Ordoñez MD [facility] - In-person encounter Office Visit Hugo Ordoñez MD [facility] Office - In-person encounter Office Visit Hugo Ordoñez MD [facility] Office - In-person encounter Office Visit Hugo Ordoñez MD [facility] - In-person encounter Office Visit Hugo Ordoñez MD [facility] Office - In-person encounter Office Visit Hugo Ordoñez MD [facility] COVID-19 asymptomatic, no exposure, testing results unknown or negative screening - In-person encounter Office Visit Hugo Ordoñez MD [facility] - In-person encounter Office Visit Hugo Ordoñez MD [facility] Office - In-person encounter Office Visit Hugo Ordoñez MD [facility] - In-person encounter Office Visit Hugo Ordoñez MD [facility] - In-person encounter Office Visit Giorgio Catalan MD [facility] Office - In-person encounter Office Visit Hugo Ordoñez MD [facility] Office - In-person encounter Office Visit Hugo Ordoñez MD [facility] - In-person encounter Office Visit Hugo Ordoñez MD [facility] Office - In-person encounter Office Visit Jean Claude Calixto DO Muslim Office - In-person encounter Office Visit Hugo Ordoñez MD [facility] Office - In-person encounter Office Visit Jean Claude Calixto [facility] Office - In-person encounter Office Visit Jean Claude Woodson DO [facility] Office - In-person encounter Office Visit Hugo Ordoñez MD [facility] - In-person encounter Office Visit Tab Taylor MD [facility] Office - In-person encounter Office Visit Hugo Ordoñez MD [facility] Office - In-person encounter Office Visit Hugo Ordoñez MD [facility] - In-person encounter Office Visit Tab Taylor MD [facility] Office - In-person encounter Office Visit Tab Taylor MD [facility] Office - In-person encounter Office Visit Tab Taylor MD [facility] Office - In-person encounter Office Visit Tab Taylor MD [facility] Office - In-person encounter Office Visit Hugo Ordoñez MD [facility] Office - In-person encounter Office Visit Tab Taylor MD [facility] Office - In-person encounter Office Visit Hugo Ordoñez MD [facility] - In-person encounter Office Visit Tab Taylor MD [facility] Office Sinus node dysfunction - In-person encounter Office Visit Hugo Ordoñez MD [facility] Office - In-person encounter Office Visit Tab Taylor MD [facility] - In-person encounter Office Visit Hugo Ordoñez MD [facility] - In-person encounter Office Visit Tab Taylor MD [facility] - In-person encounter Office Visit Tab Taylor MD [facility] Presence of implantable loop recorder - In-person encounter Office Visit Tab Taylor MD [facility] Atrial Fibrillation s/p AMULET - In-person encounter Office Visit Hugo Ordoñez MD [facility] Hyperlipidemia - In-person encounter Office Visit Hugo Ordoñez MD [facility] Office - In-person encounter Office Visit Hugo Ordoñez MD [facility] Office - In-person encounter Office Visit Tab Taylor MD [facility] Office - In-person encounter Office Visit Tab Taylor MD [facility] Office SVT S/P ablation - In-person encounter Office Visit Tab Taylor MD [facility] Office - In-person encounter Office Visit Hugo Ordoñez MD [facility] - In-person encounter Office Visit Hugo Ordoñez MD [facility] - In-person encounter Office Visit Hugo Ordoñez MD [facility] Office Diastolic heart fail ure, chronic - In-person encounter Office Visit Hugo Ordoñez MD [facility] Shortness of breathEdema - localized - In-person encounter Office Visit Rodo Berg MD [facility] - In-person encounter Office Visit Rodo Berg MD [facility] Office - In-person encounter Office Visit Hugo Ordoñez MD [facility] - In-person encounter Office Visit Rodo Berg MD [facility] Office Inappropriate sinus tachycardia - In-person encounter Office Visit Rodo Berg MD [facility] Office - In-person encounter Office Visit Rodo Berg MD [facility] Office - In-person encounter Office Visit Hugo Ordoñez MD [facility] - In-person encounter Office Visit Hugo Ordoñez MD [facility] - In-person encounter Office Visit Genaro Jane MD [facility] Office - In-person encounter Office Visit Hugo Ordoñez MD [facility] - In-person encounter Office Visit Hugo Ordoñez MD [facility] Venous thrombosis - In-person encounter Office Visit Hugo Ordoñez MD [facility] - In-person encounter Office Visit Hugo Ordoñez MD [facility] Palpitations - In-person encounter Office Visit Hugo Ordoñez MD [facility] - In-person encounter Office Visit Hugo Ordoñez MD [facility] - In-person encounter Office Visit Hugo Ordoñez MD [facility] - In-person encounter Office Visit Hugo Ordoñez MD [facility] Office - In-person encounter Office Visit Hugo Ordoñez MD [facility] Office - In-person encounter Office Visit Hugo Ordoñez MD [facility] Office - In-person encounter Office Visit Hugo Ordoñez MD [facility] Office - In-person encounter Office Visit Hugo Ordoñez MD [facility] - In-person encounter Office Visit Hugo Ordoñez MD [facility] - In-person encounter Office Visit Hugo Ordoñez MD [facility] Office REFLEX SYMPATHETIC DYSTROPHY OF THE LOWER [...] Gordon pulse rate 77 /min Kendra Rere [facility] weight E&M 196 [lb_av] Kendra Rere [facility] height E&M 68.5 [in_i] Kendra Rere [facility] Body Mass Index (Ratio) 29.51 kg/m2 Madison Pike MD blood pressure, diastolic 60 mm[Hg] Li nkLogic blood pressure, systolic 100 mm[Hg] Amee kLogic oxygen saturation, oximetry 98 % Kendra Grjono pulse rate 70 /min Kendra Grkelsienfe er blood pressure, diastolic 60 mm[Hg] Ke rri Gruenenfelder blood pressure, systolic 100 mm[Hg] Ker ri Gruenefreddy weight E&M 197 [lb_av] Kendra Gruenenfjose armando [facility] height E&M 68.5 [in_i] Kendra Gruenenfe er Body Mass Index (Ratio) 29.37 kg/m2 Bruce Ordoñez MD blood pressure, cuff size regular Ke rri Gruenenfelder blood pressure, diastolic 70 mm[Hg] Ke rri Gruenenfelder blood pressure, systolic 130 mm[Hg] Ker ri Rashiduenefreddy oxygen saturation, oximetry 96 % Kendra Lulufeliciaer respiratory rate E&M 12 /min Kendra G gretchenenefreddy pulse rate 91 /min Kendra Rere [facility] weight E&M 196 [lb_av] Kendra Gruenenfe er height E&M 68.5 [in_i] Kendra Gruenenfe [facility] Body Mass Index (Ratio) 28.77 kg/m2 Bruce Ordoñez MD blood pressure, cuff size regular Syed Faulkner blood pressure, diastolic 88 mm[Hg] Ta pat Faulkner blood pressure, systolic 128 mm[Hg] Tab ithmaxime Faulnker oxygen saturation, oximetry 99 % Padmajamaxime Faulkner [...] er weight E&M 198 [lb_av] Kendra Gruenenfe [facility] height E&M 68.5 [in_i] Kendra Gruenenfe [facility] Body Mass Index (Ratio) 29.37 kg/m2 Rishabh [...] er height E&M 68.5 [in_i] Kendra Gruenenfe [facility] Body Mass Index (Ratio) 29.37 kg/m2 Bruce [...] respiratory rate E&M 12 /min Kendra Cally [facility] pulse rate 79 /min Kendra Rere [facility] weight E&M 199 [lb_av] Kendra Rere [facility] height E&M 68.5 [in_i] Kendra Rere [facility] Body Mass Index (Ratio) 29.07 kg/m2 Kam [...] navarro pulse rate 75 /min Kendra Re[facility] weight E&M 193 [lb_av] Kendra Re[facility] height E&M 68.5 [in_i] Kendra Re[facility] Body Mass Index (Ratio) 29.51 kg/m2 Bruce [...] lder weight E&M 192 [lb_av] Kendra Gruenenfe [facility] height E&M 68.5 [in_i] Kendra Jernigan [facility] Body Mass Index (Ratio) 28.77 kg/m2 Bruce [...] Travis oxygen saturation, oximetry 97 % Corinne [place] respiratory rate E&M 16 /min Catheri ne Travis pulse rate 76 /min Corinne Travis weight E&M 184 [lb_av] Corinne Travis blood pressure, cuff size regular Ca therine [place] height E&M 68.5 [in_i] Corinne [place] Body Mass Index (Ratio) 27.27 kg/m2 Bruce Ordoñez MD blood pressure, diastolic 95 mm[Hg] Madeline nkLogic blood pressure, systolic 133 mm[Hg] Amee kLogic blood pressure, diastolic 95 mm[Hg] Ca therine Travis blood pressure, systolic 133 mm[Hg] Cat herine Travis oxygen saturation, oximetry 98 % Corinne Travis respiratory rate E&M 18 /min Catheri ne [place] pulse rate 92 /min Corinne Travis weight E&M 182 [lb_av] Corinne Travis blood pressure, cuff size regular Ca therine [place] height E&M 68.5 [in_i] Corinne Travis Body [...] blood pressure, cuff size regular Pa ris [place] blood pressure, diastolic 74 mm[Hg] Pa ris [place] blood pressure, systolic 136 mm[Hg] [place] oxygen saturation, oximetry 98 % Sophia [place] respiratory rate E&M 18 /min Sophia H neda pulse rate 74 /min Sophia [place] height E&M 68.5 [in_i] Sophia [place] Body Mass Index (Ratio) 28.35 kg/m2 Sund [...] Travis oxygen saturation, oximetry 96 % Corinne [place] respiratory rate E&M 14 /min Catheri ne [place] pulse rate 92 /min Corinne [place] height E&M 68.5 [in_i] Corinne [place] Body Mass Index (Ratio) 29.07 kg/m2 Bruce Ordoñez MD blood pressure, diastolic 90 mm[Hg] Madeline nkLogic blood pressure, systolic 136 mm[Hg] Amee kLogic blood pressure, diastolic 90 mm[Hg] Mi juan [facility] blood pressure, systolic 136 mm[Hg] Cayden helle [facility] oxygen saturation, oximetry 98 % Denise French [...] Bradford Castilloby pulse rate 65 /min [facility] [place] blood pressure, diastolic 80 mm[Hg] Bradford coulter [place] blood pressure, systolic 118 mm[Hg] Aguila Castilloby oxygen saturation, oximetry 97 % Va Castilloby respiratory rate E&M 19 /min [facility] [place] weight E&M 192 [lb_av] Va Castilloby height E&M 68.5 [in_i] [facility] [place] Body Mass Index (Ratio) 28.62 kg/m2 Phillipkalani tom Woodson DO blood pressure, cuff size large Ke rri Gruenenffeliciaer blood pressure, diastolic 72 mm[Hg] Ke rri [...] MD blood pressure, diastolic 85 mm[Hg] Fe lcemente Nelson blood pressure, systolic 140 mm[Hg] Fel icia Nelson weight E&M 193 [lb_av] Mary Nelson oxygen saturation, oximetry 95 % Mary Nelson respiratory rate E&M 16 /min Mary Nelson pulse rate 96 /min Mary Nelson temperature E&M 97.8 [degF] Mary Nelson height E&M 68.5 [in_i] Mary Nelson Body Mass Index (Ratio) 28.62 kg/m2 Rios Nicholsoncock DO blood pressure, diastolic 72 mm[Hg] Mi juan [facility] blood pressure, systolic 130 mm[Hg] Cayden helanya [facility] blood pressure, resting No Román dent [facility] oxygen saturation, oximetry 98 % Denise [facility] respiratory rate E&M 18 /min Kimberly suárez [facility] pulse rate 67 /min Denise [facility] weight E&M 191 [lb_av] Denise [facility] height E&M 68.5 [in_i] Denise [facility] Body Mass Index (Ratio) 27.57 kg/m2 JT [...] Chris oxygen saturation, oximetry 99 % [facility] [place] blood pressure, diastolic 70 mm[Hg] Bradford isty [place] blood pressure, systolic 122 mm[Hg] Bradfordi estuardo Chris respiratory rate E&M 19 /min Va Chris weight E&M 185 [lb_av] [facility] [place] height E&M 68.5 [in_i] [facility] [place] Body Mass Index (Ratio) 26.82 kg/m2 Grisel [...] Ordoñez MD respiratory rate E&M 16 /min [facility] blood pressure, diastolic 97 mm[Hg] To nsha [place] blood pressure, systolic 145 mm[Hg] Ton [facility] oxygen saturation, oximetry 98 % Tons [place] pulse rate 94 /min [facility] weight E&M 185 [lb_av] Tons [place] height E&M 68.5 [in_i] [facility] Body Mass Index (Ratio) 27.87 kg/m2 Emanuel Heller blood pressure, diastolic 96 mm[Hg] Er ica Michael blood pressure, systolic 140 mm[Hg] Mireya jeff Rodriguez oxygen saturation, oximetry 98 % Velma Rodriguez pulse rate 84 /min Velma Rowland weight E&M 186 [lb_av] Velma Rowland height E&M 68.5 [in_i] Velma Rowalnd Body Mass Index (Ratio) 27.72 kg/m2 Bruce [...] Sania Block respiratory rate E&M 16 /min [facility] topete Block height E&M 68.5 [in_i] Sania Block Body Mass Index (Ratio) 28.92 kg/m2 Jord en Cam pulse rate 96 /min Sania Block blood pressure, diastolic 84 mm[Hg] Br ittany Block blood pressure, systolic 140 mm[Hg] Jessica tony Block oxygen saturation, oximetry 98 % [facility] weight E&M 193 [lb_av] Sania [facility] respiratory rate E&M 16 /min [facility] topete Block height E&M 68.5 [in_i] [facility] Body Mass Index (Ratio) 27.87 kg/m2 Jord [...] /min Berenicetan Block height E&M 68.5 [in_i] [facility] Body Mass Index (Ratio) 30.86 kg/m2 Bruce [...] Lara Aly height E&M 68.5 [in_i] [facility] Body Mass Index (Ratio) 34.16 kg/m2 Sammy Rock blood pressure, cuff size large Ke rri Luluscenic [facility] blood pressure, diastolic 86 mm[Hg] Rusty rri [facility] blood pressure, systolic 148 mm[Hg] Kera tim [facility] oxygen saturation, oximetry 98 % Kendra Gordon respiratory rate E&M 20 /min Kendra navarro pulse rate 76 /min Kendratim Jernigan [facility] weight E&M 228 [lb_av] Kendra Lulujose armando er height E&M 68.5 [in_i] Kendra Conradokodakjose armando [facility] Body Mass Index (Ratio) 34.01 kg/m2 Bruce [...] blood pressure, systolic 132 mm[Hg] Jim sierra [facility] oxygen saturation, oximetry 97 % Nataly [facility] respiratory rate E&M 15 /min Nataly [facility] pulse rate 71 /min [facility] E&M 68.5 [in_i] [facility] Body Mass Index (Ratio) 32.60 kg/m2 [...] jv Floydhley blood pressure, systolic 150 mm[Hg] Joes [facility] oxygen saturation, oximetry 98 % Elana Marguerite respiratory rate E&M 18 /min [facility] pulse rate 87 /min [facility] blood pressure, resting No Nela royer Marguerite weight E&M 218.2 [lb_av] Elana topete Body Mass Index (Ratio) 31.16 kg/m2 Bruce Ordoñez MD blood pressure, diastolic 90 mm[Hg] Bradford isty Chris blood pressure, systolic 130 mm[Hg] Kri stefrem Castilloby pulse rate 95 /min [facility] [place] oxygen saturation, oximetry 97 % Va Chris respiratory rate E&M 16 /min Va Chris blood pressure, cuff size regular Kr isty [place] weight E&M 208 [lb_av] Va Chris height E&M 68.5 [in_i] [facility] [place] blood pressure, diastolic 80 mm[Hg] Kr isty Chris blood pressure, systolic 132 mm[Hg] Kri sty Chris pulse rate 96 /min Va Chris oxygen saturation, oximetry 98 % [facility] [place] respiratory rate E&M 16 /min Va Chris [...] Brianna Larry blood pressure, diastolic 79 mm[Hg] La ayan Larry blood pressure, systolic 122 mm[Hg] [...] blood pressure, systolic 100 mm[Hg] Gaviota grant [facility] pulse rate 105 /min Cristiane [facility] oxygen saturation, oximetry 93 % Cristiane [facility] respiratory rate E&M 17 /min Ish Sorto weight E&M 185 [lb_av] [facility] blood pressure, diastolic 60 mm[Hg] Linda leal [...] 90 mL/min/{1.7 3_m2} LinkLogic >=60 Normal C, [place] [address] aspartate aminotransferase (SGOT), serum 34 1/L LinkLogic 10-45 Normal C, [place] [address] alanine aminotransferase (SGPT), serum 35 1/L LinkLogic 7-45 Normal C, [place] [address] Alkaline phosphatase 89 LinkLogic 40-130 Normal C, [place] [address] albumin, serum 4.3 g/dL LinkLogic 3.5-5.0 Normal C, [place] [address] protein, total, serum 7.1 g/dL LinkLogic 6.5-8.5 Normal C, [place] [address] bilirubin, serum, total 0.7 mg/dL LinkLogic 0.1-1.2 Normal , [place] [address] calcium, serum 9.2 mg/dL LinkLogic 8.5-10.3 Normal C, [place] [address] blood glucose, random 74 mg/dL LinkLogic 70-199 Normal C, [place] [address] creatine, serum 0.76 mg/dL LinkLogic 0.60-1.10 Normal C, [place] [address] urea nitrogen, blood 12 mg/dL LinkLogic 6-25 Normal C, [place] [address] anion gap, serum 9 mmol/L LinkLogic 2-15 Normal C, [place] [address] carbon dioxide, venous blood 28 mmol/L LinkLogic 22-32 Normal C, [place] [address] chloride, serum 96 mmol/L LinkLogic 97-110 Low C, [place] [address] potassium, serum 3.8 MMOL/L LinkLogic 3.3-4.9 Normal C, [place] [address] sodium, serum 133 mmol/L LinkLogic 135-145 Low C, [place] [address] activated partial thromboplastin time (aPTT) 50 s LinkLogic 28-38 High C, [place] [address] international normalized ratio (INR) 3.50 LinkLogic 0.90-1.20 High C, [place] [address] prothrombin time (patient) 39.9 s LinkLogic 10.3-13.7 High C, [place] [address] Absolute Basophils 0.0 K/CUMM LinkLogic 0.0-0.1 Normal C, [place] [address] Absolute Monocytes 0.6 K/CUMM LinkLogic 0.2-0.8 Normal C, [place] [address] Absolute Lymphocytes 1.4 K/CUMM LinkLogic 0.8-3.3 Normal C, [place] [address] Absolute Neutrophils 4.7 K/CUMM LinkLogic 1.5-6.5 Normal C, [place] [address] nucleated red blood cells as percent of [...] LinkLogic 3.5-5.2 sodium, serum 142 mmol/L LinkLogic 817-124 9368/06 /14 urea nitrogen/creatinine ratio, serum 20 LinkLogic [...] Not Estab. platelet count 233 X10E3/UL LinkLog 024-338 5630/04 /22 red blood cell distribution width 13.1 % LinkLog 11.7-15.4 mean corpuscular hemoglobin concentration, RBC 34.6 G/DL LinkLogic 31.5-35.7 mean corpuscular hemoglobin, RBC 35.3 pg LinkLogic 26.6-33.0 High mean corpuscular volume, RBC 102 fL LinkLogic 79-97 High hematocrit, blood 40.8 % LinkLog 34.0-46.6 hemoglobin, blood 14.1 g/dL [facility] erythrocyte (RBC) count 4.00 X10E6/UL LinkLog 3.77-5.28 leukocyte count, blood 4.1 X10E3/UL [facility] 3.4-10.8 alanine aminotransferase (SGPT), serum 21 1/L [...] LinkLogic 3.5-5.2 sodium, serum 144 mmol/L LinkLogic [phone]/04 /22 urea nitrogen/creatinine ratio, serum 17 LinkLogic [...] Not Estab. platelet count 252 X10E3/UL LinkLogic 868-056 3181/10 /27 red blood cell distribution width 13.4 [...] Not Estab. platelet count 217 X10E3/UL LinkLogic 566-100 7197/09 /24 red blood cell distribution width 12.9 [...] LinkLogic 3.5-5.2 sodium, serum 144 mmol/L LinkLogic 125-114 2484/06 /11 urea nitrogen/creatinine ratio, serum 17 LinkLogic [...] Not Estab. platelet count 224 X10E3/UL LinkLogic [phone]/06 /11 red blood cell distribution width 13.8 [...] LinkLogic 3.5-5.2 sodium, serum 142 mmol/L LinkLogic 350-372 4839/05 /08 urea nitrogen/creatinine ratio, serum 22 LinkLogic [...] Not Estab. platelet count 225 X10E3/UL LinkLogic 016-806 4687/05 /08 red blood cell distribution width 13.7 [...] Not Estab. platelet count 235 X10E3/UL LinkLogic 644-263 8232/04 /29 red blood cell distribution width 13.6 [...] Not Estab. platelet count 235 X10E3/UL LinkLogic 132-529 2533/12 /04 red blood cell distribution width 14.3 [...] LinkLogic 3.5-5.2 sodium, serum 144 mmol/L LinkLogic 423-641 8446/05 /23 urea nitrogen/creatinine ratio, serum 20 LinkLogic [...] LinkLogic 3.5-5.2 sodium, serum 143 mmol/L LinkLogic 499-334 2002/02 /07 urea nitrogen/creatinine ratio, serum 18 LinkLogic [...] Not Estab. platelet count 239 X10E3/UL LinkLogic 136-298 8895/02 /07 red blood cell distribution width 13.9 [...] LinkLogic 3.4-10.8 platelet count 201 10*3/mm3 [employer] hematocrit, blood 34.0 % [employer] international normalized ratio (INR) 1.12 [employer] creatinine, serum 0.69 mg/dL [employer] potassium, serum 3.6 mmol/L [employer] sodium, serum 143 mmol/L [employer] HISTORY OF MEDICATION USE Medication Status Instructions Dates Provider Indications Com ments celecoxib 200 mg capsule active Oh Celestin DNP,ENGINE LATHE [employer]ER leflunomide 20 mg tablet active Oh Celestin DNP,ENGINE LATHE TENDER Simponi 50 mg/0.5 mL pen injector active Oh Celestin DNP,ENGINE LATHE TENDER pantoprazole 40 mg tablet,delayed release (DR/EC) active Padmaja aFulkner morphine 15 mg tablet completed take 1 [...] RN #25, 5 days supply, Prescribed by [facility], NOT PROVIDED, Filled 04/03/2020 diclofenac sodium 1% [...] in the am - 07/26 Oh Celestin DNP,ENGINE LATHE TENDER metoprolol tartrate 25 mg tablet completed Take [...] history of marijuana use no Oh Celestin DNP,ENGINE LATHE TENDER drug use no Oh Celestin DN P,ENGINE LATHE TENDER alcohol use no Oh Celestin DN P,ENGINE LATHE TENDER passive cigarette sm kelvin exposure no Oh Celestin DNP,ENGINE LATHE TENDER smoking status Never smoker Oh Celestin DNP,ENGINE LATHE TENDER drug use none Hugo Lilly alcohol use [...] of grandchildren Hugo Ordoñez MD Elianagustavo Woods POWER CRANE 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 drug use none Eliana Leahyluri POWER CRANE OPERATOR alcohol use no Eliana Nalluri POWER CRANE OPERATOR passive cigarette sm kelvin exposure no Eliana Nalluri POWER CRANE OPERATOR smoking status Never smoker Eliana Nallu ri POWER CRANE OPERATOR drug use none Brenda Dennis alcohol use [...] exercise, frequency, days per week yes Corinne [place] caffeine use, averag e drinks per day no Corinne Travis passive cigarette sm [place] exposure no Corinne [place] smoking status Never smoker Corinne Ana s [...] averag e drinks per day no Corinne [place] passive cigarette sm kelvin exposure no Corinne [place] smoking status Never smoker Corinne Ana s [...] exercise, frequency, days per week yes Sophia [place] caffeine use, averag e drinks per day no [place]ia [place] passive cigarette sm kelvin exposure no Sophia [place] smoking status [facility]oker [facility] social [facility] E&M Marital Statu s: / L sharita alone E thnicity: Smoking History: P shahab has never smoked. Hugo Ordoñez MD social history reviewed E&M revi ewed - no changes required Hugo Ordoñez MD seatbelt usage 100 % Corinne Ana s physical exercise, frequency, days per week yes Corinne [place] caffeine use, averag e drinks per day no Corinne [place] passive cigarette sm kelvin exposure no Corinne [...] averag e drinks per day no [facility] [place] passive cigarette sm kelvin exposure no [facility] [place] smoking status Never smoker [facility] social [...] Ordoñez MD seatbelt usage 100 % Sania [facility] physical exercise, frequency, days per week yes [facility] caffeine use, averag e drinks per day no [facility] passive cigarette sm kelvin exposure no [facility] smoking status Never smoker [facility] social history E&M Marital Statu s: / L sharita alone E thnicity: Smoking History: P shahab has never smoked. Hugo Ordoñez MD social history reviewed E&M revi ewed - no changes required Hugo Ordoñez MD seatbelt usage 100 % [facility] physical exercise, frequency, days per week yes [facility] caffeine use, averag e drinks per day no [facility] passive cigarette sm kelvin exposure no [facility] smoking status Never smoker Sania [facility] smoking status Never smoker Yo griffith social history E&M Marital Statu s: / L sharita alone E thnicity: Smoking History: P shahab has never smoked. Yo Heller social history reviewed E&M revi ewed - no changes required Yo Heller seatbelt usage 100 % [facility] physical exercise, frequency, days per week yes [facility] [place] caffeine use, averag e drinks per day no [facility] [place] passive cigarette sm kelvin exposure no [facility] social history reviewed E&M revi ewed - no changes required Celestine Cam seatbelt usage 100 % Tonsha Hensley physical exercise, frequency, days per week yes [facility] caffeine use, averag e drinks per day no [facility] passive cigarette sm kelvin exposure no [facility] smoking status [facility] E&[facility] revi [...] Hospital passive cigarette sm kelvin [facility] status [facility] social history reviewed E&M revi ewed - no changes required Tab Taylor MD seatbelt usage 100 % Yenifer Toliv er physical exercise, frequency, days per week yes Yenifer Ja caffeine use, averag e drinks per day [...] Hugo Ordoñez MD seatbelt usage 100 % [facility], frequency, days per week yes Tonsha Hensley caffeine use, averag e drinks per day no T[facility] Hensley passive cigarette sm kelvin exposure [facility] Never smoker [facility] [...] passive cigarette sm kelvin exposure no San[facility] smoking status Never smoker [facility] social history reviewed E&M revi ewed - no changes required Tab Taylor MD seatbelt usage 100 % [facility] physical exercise, frequency, days per week yes [facility] caffeine use, averag e drinks per day no [facility] passive cigarette sm kelvin exposure no [facility] smoking status Never smoker [facility] seatbelt usage 100 % Velma uriarte-Kashif physical [...] changes required Huog Ordoñez MD social history E&M Marital Statu s: / L sharita alone E thnicity: Smoking History: P shahab has never smoked. Hugo Ordoñez MD social history reviewed E&M revi ewed - no changes required Hugo Ordoñez MD seatbelt usage 100 % Sania MST physical exercise, frequency, days per week yes [facility] caffeine use, averag e drinks per day no [facility] passive cigarette sm kelvin exposure no [facility] smoking status Never smoker [facility] social history E&M Marital Statu s: / L sharita alone E thnicity: Smoking History: P shahab has never smoked. Hugo Ordñoez MD social history reviewed E&M revi ewed [...] Smoking History: P atlong has never smoked. Tab Taylor MD seatbelt [...] use, averag e drinks per day no [facility] none Chastity Jaime [...] none [facility] alcohol use no [facility] [place] caffeine use, averag e drinks per day no [facility] drug use none [facility] [place] passive cigarette sm kelvin exposure no Va [...] MD number of grandchildren Hugo Ordoñez MD [facility] social history reviewed E&M revi ewed [...] per day none [employer] smoking status Non-smoker [facility] MENTAL STATUS Date Observation Value Provider assessment [...] Payer name Policy type / Coverage type [employer] red green party ID [facility] [id number] [place] B Medicare [id number] ADVANCE DIRECTIVES Name Date DISCUSSED - NO DECISION MADE TREATMENT PLAN Date Name Performer [id number],S, Hugo uriarte MD [id number],S, Hugo uriarte MD [id number],S, Hugo uriarte MD [id number],S, Hugo uriarte MD [id number],S, Hugo uriarte MD [id number],S, Hugo uriarte MD [id number],S, Hugo uriarte MD [id number],B, Hugo uriarte MD [id number],S, Hugo uriarte MD [id number],S, Hugo uriarte MD [id number],S, Hugo uriarte MD [id number],B, Hugo uriarte MD [id number],S, Hugo uriarte MD [id number],B, Hugo uriarte MD [id number],S, Hugo Ramada n [place] [id number],S, Hugo Ramada n [place] [id number],B, Hugo Ramada n [place] [id number],S, Hugo Ramada n [place] [id number],S, Hugo Ramada n [place] [id number],S, Hugo Ramada n [place] [id number],S, Hugo Ramada n [place] [id number],S, Hugo Ramada n [place] [id number],S, Hugo Ramada n [place] [id number],S, Hugo Ramada n [place] [id number],S, Hugo Ramada n [place] [id number],S, Hugo Ramada n [place] [id number],S, Hugo Ramada n FL [id number],S, Hugo Ramada n [place] [id number],S, Hugo Ramada n [place] [id number],S, Hugo Ramada n FL [id number],S, Hugo Ramada n [place] [id number],S, Hugo Ramada n [place] [id number],S, Hugo Ramada n [place] [id number],S, Hugo Ramada n FL [id number],S, Hugo Ramada n [place] [id number],S, Hugo Ramada n [place] [id number],S, Hugo Natividad uriarte MD [id number],S, Hugo Silverioalana uriarte MD [id number],B,S teroids improved pain. Lab shows systemic inflammation. Hugo Ordoñez MD [id number],S, Hugo Natividad uriarte MD [id number],S, Hugo Natividad uriarte MD [id number],S, Hugo Natividad uriarte MD [id number],B, Hugo Natividad uriarte MD [id number],S, Hugo Natividad uriarte MD [id number],S, Hugo Natividad uriarte MD [id number],B, Hugo Natividad uriarte MD [id number],S, Hugo Natividad uriarte MD [id number],S, Hugo Natividad uriarte [place] [id number],S, Hugo Natividad uriarte [place] [id number],S, Hugoshad Silverioalana uriarte [place] [id number],S, Hugoshad Silverioalana uriarte [place] [id number],B,R 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 Hugo Ordoñez MD [id number],S, Hugo Natividad uriarte MD [id number],S, Hugo Natividad uriarte MD [id number],S, Hugo Natividad uriarte MD [id number],S, Hugo Natividad uriarte MD [id number],S, Hugo uriarte [place] [id number],S, Hugo uriarte MD [id number],B, Hugo uriarte MD [id number],S, Hugo uriarte MD [id number],B, Hugo uriarte MD [id number],W,S eems pacer related. Will replace RV lead with a septal implant and try to remove old lead. Hugo Ordoñez MD [id number],S, Hugo uriarte MD [id number],B, Hugo uriarte MD [id number],S, Hugo uriarte MD [facility] Malina Blood Take your medication [...] 2019 that showed no obstructuve CAD Mario Hickory Cardiology:This visi t has been a part [...] HAS PROCEDURE FOR BLADDER SLING DONE AT [facility] W/ JESSICA UROLOGIST O K TO CONTINUE [...] Ordoñez MD Cardiology:On OAC Eliana Nallur i POWER CRANE OPERATOR Cardiology:Mild sob with exertio n Eliana Nalluri POWER CRANE OPERATOR Cardiology:None Eliana Leahyluri POWER CRANE OPERATOR Cardiology:EF 70% Her updated medication list for [...] after 3 tabs seek medical attention Eliana Boswellri POWER CRANE OPERATOR Cardiology: H er updated medication list for this problem includes: Rosuvastatin 40 Mg Tablet (Rosuvastatin) ..... Take 1 tablet by mouth once a day Eliana Boswellri POWER CRANE OPERATOR Cardiology:AT episod e on 10/10/23 for 4m 30s, EGM appears t o show PAT. On warfarin for OAC Eliana Leahyluri POWER CRANE OPERATOR Cardiology:s/p PPM Eliana Leahylu ri POWER CRANE OPERATOR Cardiology:RA 91%, R V 100% b attery 60% Eliana Boswellri POWER CRANE OPERATOR Cardiology: W as recently in the hospital c/o heaviness in her chest . Normal EKG, stress test and echo h ad on eepisode of chest pain since dischrged from hospital, relieved with nitro Elianagustavo Leahyluri SONIA Cardiology:Bp stable today Selene Leahyalex SCOTT Telehealth Lele Brown Telehealth Lele Brown Telehealth:complains of heaviness in her chest since last night, she has PAKRER which is new, advised her to go [...] implant and try to remove old lead. uHgo Ordoñez MD Cardiology Hugo Ordoñez MD Cardiology [...] PPM if her symptoms fail to resolve. [id number] appears to be ST 120-130's, AsVP, 100% RV paced, Metoprolol increased to 50mg BID, much improved symptoms since these changes Linda Scott POWER CRANE OPERATOR Electrophysiology Fo llow up : i nterrogation today 0% AF burden Linda Scott NP Electrophysiology Fo llow up :[id number], appears to be ST, 120-130's rate, AsVp, [...] P:interrogation today 0% AF burden Lori Cummings POWER CRANE OPERATOR Electrophysiology- N P:interrogation today: ST 120's. longeset [...] up Hugo mari MD Cardiology follow up Hguo mari MD Cardiology follow up Hugo mari [...] DC PPM implant 06/2019. P resented to [facility] 03/2020 and was told by Icing Machine Operator there she was having SVT . [...] 03/2020 CHOL 195, Trig 213, HDL 37, WAX896. L ipoprotein 119.7 A polipoprotein B 114 Yo Heller Electrophysiology:Un derwent AV node ablation 12/2019 with prior DC PPM implant 06/2019. H ospitalized at [place] and was told by Icing Machine Operator there she was having SVT . [...] (Aspirin) ..... One tab by mouth daily [facility] Cardiology [facility] Cardiology: H er updated medication list for this problem includes: Warfarin Sodium 5 Mg Tablet (Warfarin sodium) ..... Take 1 tablet by mouth starting 7 days prior to procedure Aspirin Adult Low Dose 81 Mg Oral Tablet Delayed Release (Aspirin) ..... One tab by mouth daily [facility] Cardiology: H er updated medication list for this problem includes: Warfarin Sodium 5 Mg Tablet (Warfarin sodium) ..... Take 1 tablet by mouth starting 7 days prior to procedure Aspirin Adult Low Dose 81 Mg Oral Tablet Delayed Release (Aspirin) ..... One tab by mouth daily [facility] TeleHealth: H er updated medication list for this problem includes: Warfarin Sodium 5 Mg Oral Tablet (Warfarin sodium) ..... One tab by mouth starting 7 days prior to procedure Aspirin Adult Low Dose 81 Mg Oral Tablet Delayed Release (Aspirin) ..... One tab by mouth daily [facility] TeleHealth: H er updated medication list for this problem includes: Warfarin Sodium 5 Mg Oral Tablet (Warfarin sodium) ..... One tab by mouth starting 7 days prior to procedure Aspirin Adult Low Dose 81 Mg Oral Tablet Delayed Release (Aspirin) ..... One tab by mouth daily [facility] TeleHealth: H er updated medication list for this problem includes: Warfarin Sodium 5 Mg Oral Tablet (Warfarin sodium) ..... One tab by mouth starting 7 days prior to procedure Aspirin Adult Low Dose 81 Mg Oral Tablet Delayed Release (Aspirin) ..... One tab by mouth daily [facility] TeleHealth:Reschedul e AV node ablation with carto and anesthesia after December 23, No need for CT [facility] TeleHealth: H er updated medication list for this problem includes: Aspirin Adult Low Dose 81 Mg Oral Tablet Delayed Release (Aspirin) ..... One tab by mouth daily [facility] TeleHealth: H er updated medication list for this problem includes: Aspirin Adult Low Dose 81 Mg Oral Tablet Delayed Release (Aspirin) ..... One tab by mouth daily [facility] TeleHealth [facility] TeleHealth: H er updated medication list for this problem includes: Aspirin Adult Low Dose 81 Mg Oral Tablet Delayed Release (Aspirin) ..... One tab by mouth daily [facility] TeleHealth:No episod es reported for this session. [...] Dr. Ordoñez [place] [facility] [place]. The [...] Hugo Ordoñez MD Cardiology-seen with MD and POWER CRANE OPERATOR Maxime Gamboa [facility] Cardiology-seen with MD and POWER CRANE OPERATOR : none noted on ILR Dionne Gamboa [facility] Cardiology-seen with MD and POWER CRANE OPERATOR :Pt remains symptomatic with tachycardia interfering with [...] One tab by mouth daily Dionne Gamboa [facility] Cardiology:well heal ing scar a vised pt to apply ice pack on incision site. Celestine Levy Electrophysiology:IL R implantation O rders: E KG (CPT-41754) 9 9213 LTD. Complex (CPT-20988) 6 minute walk test (CPT-74463) Her updated medication list for this problem includes: Metoprolol Tartrate 25 Mg Oral Tablet (Metoprolol tartrate) ..... One tab. twice daily Aspirin Adult Low Dose 81 Mg Oral Tablet Delayed Release (Aspirin) ..... One tab by mouth daily Tab Taylor MD Electrophysiology: O rders: 9 9213 LTD. Complex (CPT-23918) 6 minute walk test (CPT-79692) L oop Rec Implant - [facility] (*) Her updated medication list for this problem includes: Metoprolol Tartrate 25 Mg Oral Tablet (Metoprolol tartrate) ..... One tab. twice daily Aspirin Adult Low Dose 81 Mg Oral Tablet Delayed Release (Aspirin) ..... One tab by mouth daily Tab Taylor MD Electrophysiology: O rders: 9 9213 LTD. Complex (CPT-73800) 6 minute walk test (CPT-87440) L oop Rec Implant - [facility] (*) Her updated medication list for this problem includes: Metoprolol Tartrate 25 Mg Oral Tablet (Metoprolol tartrate) ..... One tab. twice daily Aspirin Adult Low Dose 81 Mg Oral Tablet Delayed Release (Aspirin) ..... One tab by mouth daily Tab Taylor MD Electrophysiology:IL R [place] [facility] [place] Tiago Ramirez ill [...] a day. Orders: 9 9214 MOD Complex (CPT-25429) B ASIC METABOLIC PANEL W/EGFR (67644) D -DIMER, QUANTITATIVE (8659) D -DIMER, QUANTITATIVE (8659) M obile Cardiac Tele (CPT-09009) Celestine Levy Cardiology Tab castaneda MD Cardiology: [...] half tablet twice a day. Cam Tabor Electrophysiology: H er updated medication list for this problem includes: Adult Aspirin Ec Low Strength 81 Mg Oral Tablet Delayed Release (Aspirin) ..... Take one tab po once daily Metoprolol Tartrate 25 Mg Oral Tablet (Metoprolol tartrate) ..... One half tablet twice a day. [facility]: nuclear stress test Summary 1 . Normal myocardial perfusion imaging after vasodilator stress with Regadenoson. 2 . Normal left ventricular systolic function with a calculated ejection fraction of 75%. 3 . No obvious significant scintigraphic evidence of myocardial ischemia or scar. 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 Orders: E KG (CPT-22284) 9 9215 HIGH Complex (CPT-99798) A BLATION w/ Anesthesia (*) obile Cardiac Tele (CPT-48074) [facility] Electrophys[facility] Ne w Patient : O rders: E KG (CPT-40149) 9 9215 HIGH Complex (CPT-99966) A BLATION w/ Anesthesia (*) Her updated [...] Cardiology Hugo Ordoñez MD Cardiology:Doing well on jamzin Ordoñez MD Cardiology Hguo Ordoñez MD Cardiology Hugo Ordoñez MD Cardiology [...] follow up : O rders: E KG (CPT-58810) BP today: 140/96 Prior BP: 136/92 (02/28/2013) [...] ..... Three times daily Orders: E KG (CPT-26984) BP today: 121/86 Prior BP: 127/88 (10/20/2011) [...] MD : O rders: C omplete Echo (CPT-13613) S tress Test - Adenosine (68510) Hugo Ordoñez MD : O rders: C omplete Echo (CPT-19543) Hugo Ordoñez MD : O rders: S tress Test - Adenosine (90855) E vent Recorder (*) BP today: 86/60 [...] ulius Claudia BRYANT comp leted EKG ulius gNhiaitis comp leted EKG Hugo Ordoñez MD complete [...] EKG Hugo Ordoñez MD complete d SNOMED-CT: 345748601912667 Current Medications Documented Hugo Ordoñez MD completed SNOMED-CT: 603204749333850 Current Medications Documented Hugo Ordoñez MD completed EKG Rodo Berg MD comp leted SNOMED-CT: 290706207392454 Current Medications Documented Rodo Berg MD completed EKG Rodo Berg MD comp leted SNOMED-CT: 977673717263584 Current Medications Documented Rodo Berg MD completed SNOMED-CT: 234100087226742 Current Medications Documented Hugo Ordoñez MD completed EKG Hugo Ordoñez MD complete d SNOMED-CT: 528575622739476 Current Medications Documented Hugo Ordoñez MD completed EKG Rodo Berg MD comp leted SNOMED-CT: 100741155144299 Current Medications Documented Rodo Berg MD completed SNOMED-CT: 784652184315774 Current Medications Documented Hugo Ordoñez MD completed Event Monitor Luis M Pagan completed Stress EKG Yonathan Bernard MD complet ed Regadenoson, 4 units Yonathan Bernard MD completed Cardiolite, 2 units Yonathan Bernard MD completed SPECT Images Yonathan Bernard MD compl eted SNOMED-CT: 420020627100173 Current Medications Documented Hugo Ordoñez MD completed Ambulatory BP Genaro Jane MD comp leted Ambulatory BP Genaro Jane MD comp leted EKG Genrao Jane MD complet ed SNOMED-CT: 000678205597419 Current Medications Documented Genaro Jane MD completed LISSETTE Ordoñez MD complete d SNOMED-CT: 486479532212536 Current Medications Documented Hugo Ordoñez MD completed LISSETTE Ordoñez MD complete d LISSETTE Ordoñez MD complete d
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
[2024-09-30 16:01] VITALS: BP 112/75; PULSE 70; RESP 20; O2SAT 100
[2024-09-30] MEDS: MORPHINE SULFATE INJ (*CRX) 10 MG/ML AMP 5 MG IM (16:02)
== END 2024-09-30 19:09 | disposition home or self-care (01) ==
PROVIDERS: Emergency Provider Physician Assistant; PCP Family Medicine
DX: S16.1XXA Strain of muscle, fascia and tendon at neck level, initial encounter (principal); S43.401A Unspecified sprain of right shoulder joint, initial encounter; V89.2XXA Person injured in unspecified motor-vehicle accident, traffic, initial encounter; Z79.82 Long term (current) use of aspirin; K21.9 Gastro-esophageal reflux disease without esophagitis; Z86.718 Personal history of other venous thrombosis and embolism; M06.9 Rheumatoid arthritis, unspecified; F41.8 Other specified anxiety disorders; Z86.73 Personal history of transient ischemic attack (TIA), and cerebral infarction without residual deficits; I10 Essential (primary) hypertension; E78.2 Mixed hyperlipidemia; I48.0 Paroxysmal atrial fibrillation; Z95.0 Presence of cardiac pacemaker
CPT/HCPCS: 70450; 71045; 72125; 73030; 73502; 96372; 99284; A4565; J2270

== ENCOUNTER 2024-10-04 09:00 | Outpatient (CLI) | payer MEDICARE, MEDICAID, SELFPAY ==
--- OUTSIDE RECORDS SUMMARY | 2024-10-04 09:33 | XMS_ITS | Continuity of Care Document ---
Author Organization Located within [facility] Address [address] [place] [address] [address] [place] [address] Phone Care Team Providers Care Polo Coach Name Role Phone Anthony Gutierrez Unavailable Unavailable [...] Providers Copied on Encounter Office/outpat ient Visit, [facility], [address] [place] [address] [address], [place], [place], [id number], [place] tel:[phone] SEC [facility] No Information 0 0 Krishnasamy Anthony. [address] [facility] [address], [place], [address], [place]. tel:[phone] Office/outpat ient Visit, [facility], [address] [place] [address] [address], [place], [place], [id number], [place] tel:[phone] [facility] No Information 0 0 Krishnasamy Anthony. [address] [facility] [place] [address], [place], [place], [facility], [place]. tel:[phone] Office/outpat ient Visit, [facility], [id number] [place] [address] [address], [place], [place], [id number], [place] tel:[phone] SEC [facility] No Information Fe-2 3-201 0 Krishnasamy Anthony. [address] [facility] [place] [address], [place], [place], [facility], [place]. tel:[phone] [facility], [address] [place] [address] [address], [place], [place], [id number], [place] tel:[phone] SEC [facility] No Information Jan-3 1-200 9 Krishnasamy Anthony. [facility] [address], [place], [place], [facility], [place]. tel:[phone] [facility], [id number] [place] [address] [address], [place], [place], [id number], [place] tel:[phone] SEC [facility] No Information You-2 2-200 9 Krishnasamy Anthony. [address] [place], [place] [address] [place] [address], [place], [place], [facility], [place]. tel:[phone] [facility], [address] [place] [address] [address], [place], [place], [id number], [place] tel:[phone] [facility] [place] No Information May-0 8-200 9 Krishnasamy Anthony. [facility] [place] [address], [place], [place], [facility], [place]. tel:[phone] [facility], [address], [place], [place], [id number], [place] tel:[phone] [facility] No Information Apr-2 8-200 7 Montes OD Simone. [address] [place] [address], [place], [place], [facility], [place]. tel:[phone] Family History Family Member Type Diagnosis Age At Onset No Information Payers Payer name Insurance type Covered constitution party ID Authoriza tion(s) Medicare [facility] [id number] Medicaid [facility] [id number] Social History Type Description Quantity Date Captured [...]
--- OUTSIDE RECORDS SUMMARY | 2024-10-04 09:33 | XMS_ITS | Data Portability ---
Author Organization [facility] [employer], Main Office Address [address] [place] [address] Care Team Providers Care Commercial Subcontractor Name Role Phone ANGEL DIETZ Primary Care Provider ANGEL DIETZ Referring Provider Assessment Encounter Date Assessment Date Assessment LastModified by Organization Details LastModified Time 04/20/2023 04/20/2023 This note is dictated and transcribed by [employer]. Maitre D variances may occur. Despite proofreading, typographical errors may occur. [email or web address] Not available 04/20/2023 12:45:53 04/27/2023 04/27/2023 This note is dictated and transcribed by [employer]. Maitre D variances may occur. Despite proofreading, typographical errors [...] By Organization Details Last Modified Time 04/20/2023 [id number] plantar warts: care instructions [email or web address] Not available 04/20/2023 12:46:05 Reason for Referral None Reported. Results Created Date Observation Date Name Description Value Unit Range Abnormal Flag Note LastModifiedBy Organization Detail LastModifiedTime 09/21/19 21 09/20/2020 pregn duglas test, urine ur preg negati ve TESTI NG PERFO RMED BY SURGI SIS SERVI BETHEL PERSO NNEL. Not Available [facility] (Lab) [address] [place], [address], 09/20/2020 10:02:45 09/21/19 21 09/20/2020 pregn duglas test, urine lot no. [id number] Not Available [facility] ([facility]) [address] [place], [address], 09/20/2020 10:02:45 09/21/19 21 09/20/2020 pregn duglas test, urine pos QC positi ve Not Available [facility] (Lab) [address] [place], [address], 09/20/2020 10:02:45 09/21/19 21 09/20/2020 pregn duglas test, urine neg QC negati ve Not Available [facility] ([facility]) [address] [place], [address], 09/20/2020 10:02:45 Result Notes None recorded. Problems Name Problem SNOMED Code Status Onset Date Resolution Date Notes Provider Name and Address Organization Details Recorded Time Dysmenorrh ea 463460450 Active Not Available [facility] 3 01:01:15 Lesion of vulva 114745291 Active Not Available [facility] 3 01:01:16 Menorrhagi a 026807348 Active Not Available [facility] 3 01:01:16 Vulvitis 72798662 Active Not Available [facility] 3 01:01:16 Plantar wart of left foot 9661197362242 9102 Active 2022 You Pierce DPM [address], [place], [address] , [employer] [facility] [employer] 3 14:40:48 Blister of foot without infection 0729206 Active 2022 You Pierce DPM [address], [address], [place], [address] , [employer] [facility] [employer] 3 10:36:11 Problem Notes None recorded. Procedures Surgical History Date Name Laterality Status Provider Name and Address Organization Details Recorded Time 023 Wound Care-Podiatry completed You Pierce DPM [address], [address], [place], [address], [employer] 04/27/2023 10:35:44 023 wart canthrone procedure completed You Pierce DPM [address], [address], [place], [address], [employer] 04/20/2023 12:44:54 023 Wart Treatment Canthrone completed You Pierce DPM [address], [address], [place], [address], [employer] 04/13/2023 14:42:30 021 ASSURANCE SENIOR MANAGER Surgery completed Not Available [facility] 09/17/2022 00:49:08 020 Date of Last Pap Smear completed Not Available [facility] 09/17/2022 00:48:57 019 Pacemaker completed Not Available [facility] 09/17/2022 00:49:08 019 Most Recent Mammogram completed Not Available [facility] 09/17/2022 00:48:58 017 Hernia Repair completed Not Available [facility] 09/17/2022 00:49:08 013 ASSURANCE SENIOR MANAGER Surgery completed Not Available [facility] 09/17/2022 00:49:08 989 ASSURANCE SENIOR MANAGER Surgery completed Not Available [facility] 09/17/2022 00:49:08 back fusion completed Not Available [facility] 09/17/2022 00:49:08 insertion of inferior vena caval filter completed Not Available [facility] 09/17/2022 00:49:08 neurostimulation of spinal cord tissue completed Not Available [facility] 09/17/2022 00:49:08 operation on heart completed Cherie Guan [employer] 04/13/2023 12:15:22 Imaging Results None recorded. Procedure Notes None recorded. Medical Equipment None Reported. Allergies Allergen ID Allergen Name Allergen Category Reaction Reaction Severity Criticality Documentation Date Start Date Code Code System Note Provider Name and Address Organization Details Recorded Time 1925 acetamino phen / hydrocodo ne medicatio n vomiting mild Not available 09/17/2022 00042 2 RxNorm Not Available [facility] 3 01:18:15 1927 Tylenol with Codeine medicatio n vomiting severe Not available 09/17/2022 74392 6 RxNorm Not Available [facility] 3 01:18:15 1928 acetamino phen / oxycodone medicatio n hives severe Not available 09/17/2022 03066 3 RxNorm Not Available [facility] 3 01:18:16 1929 Product containin g penicilli n (product) medicatio n hives severe Not available 09/17/2022 98152 8001 SNOMED Not Available [facility] 3 01:18:16 1930 meclizine medicatio n anaphylax is severe Not available 09/17/2022 6676 RxNorm aller gy previ ously marke d as life -thre ateni ng Not Available [facility] 3 01:18:16 1931 Inderal medicatio n rash severe Not available 09/17/2022 18490 0 RxNorm Not Available [facility] 3 01:18:16 1932 imipramin e Not available hives moderate Not available 09/17/2022 5691 RxNorm Not Available [facility] 3 01:18:16 1933 Dilaudid medicatio n other moderate Not available 09/17/2022 33324 3 RxNorm Not Available [facility] 3 01:18:16 1934 propoxyph giovanny hydrochlo ride medicatio n hives severe Not available 09/17/2022 56303 RxNorm Not Available [facility] 3 01:18:16 1935 Acetamino phen / Propoxyph giovanny medicatio n hives severe Not available 09/17/2022 35239 RxNorm Not Available [facility] 3 01:18:16 1936 Compazine medicatio n anaphylax is severe Not available 09/17/2022 81105 6 RxNorm PATRICIA [facility] 3 12:11:18 193 Ceftin medicatio n hives severe Not available 09/17/202219769 6 RxNorm Not Available [facility] 3 01:18:17 1938 Biaxin medicatio n hives severe Not available 09/17/202278458 9 RxNorm [facility] 3 12:11:04 1939 Benadryl medicatio n hives severe Not available 09/17/202260225 7 RxNorm Not Available [facility] 3 01:18:17 87819 carbamaze pine medicatio n Not available Not available Not available 04/13/20232001 RxNorm [facility] 3 12:12:00 54146 Medicinal product containin g cephalosp meir and acting as antibacte rial agent (product) medicatio n Not available Not available Not available 04/13/2023 91744 9009 SNOMED [facility] 3 12:12:08 51008 clarithro mycin medicatio n Not available Not available Not available 04/13/2023 25460 RxNorm [facility] 3 12:12:23 51177 hydromorp rosa maria medicatio n Not available Not available Not available 04/13/2023 3423 RxNorm [facility] 3 12:12:35 Medications Name Sig Start Date [...] 1 28.6 kg/m2 172.72 cm 96.5 [degF] 08219.3 7 g 120 mm[Hg] 78 mm[Hg] Not Available [employer] 3 00:52:32 Date Recorded Body height Body mass index (BMI) Body weight Heart rate Respiratory rate Oxygen saturation Oxygen saturation in Arterial blood by Pulse oximetry Systolic blood pressure Diastolic blood pressure Provider Name and Address Organization Details Last Updated DateTime 3 172.72 cm 28.7 kg/m2 56677.9 6 g 82 /min 14 /min 99 % 99 % 128 mm[Hg] 82 mm[Hg] Cherie GOMEZ [employer] [facility] 3 12:00:54 Date Recorded Body height Body mass index (BMI) Body weight Heart rate Respiratory rate Oxygen saturation Oxygen saturation in Arterial blood by Pulse oximetry Systolic blood pressure Diastolic blood pressure Provider Name and Address Organization Details Last Updated DateTime 3 172.72 cm 28.7 kg/m2 75462.9 6 g 70 /min 14 /min 98 % 98 % 102 mm[Hg] 66 mm[Hg] Cherie GOMEZ [employer] [facility] 3 12:31:41 Date Recorded Body height Body mass index (BMI) Body weight Heart rate Respiratory rate Oxygen saturation Oxygen saturation in Arterial blood by Pulse oximetry Systolic blood pressure Diastolic blood pressure Provider Name and Address Organization Details Last Updated DateTime 3 172.72 cm 28.7 kg/m2 03551.9 6 g 73 /min 14 /min 98 % 98 % 112 mm[Hg] 75 mm[Hg] Cherie Guan [employer] [facility] 3 09:23:27 Social History Question Answer Notes LastModified by [employer] ion Details LastModified Time Tobacco Smoking Status Never Smoker Not Available [facility] 09/17/2022 00:46:36 What Is Your Level Of Alcohol Consumption? None [id number] Information not available 09/17/2022 What Is Your Level Of Caffeine Consumption? None [id number] Information not available 09/17/2022 In The 14 Days Before Symptom Onset, Have You Had Close Contact With A Laboratory-confirm ed COVID-19 While That Case Was Ill? No [id number] Information not available 09/17/2022 In The 14 Days Before Symptom Onset, Have You Had Close Contact With A Person Who Is Under Investigation For COVID-19 While That Person Was Ill? No [id number] Information not available 09/17/2022 Which Illicit Or Recreational Drugs Have You Used? None [id number] Information not available 09/17/2022 What Was [...] Time What is your exercise level? Occasional [id number] Information not available 09/17/2022 Mental Status None recorded. Family History Relationship Description Onset Age of this Age Resolved Age Notes LastModified by Organization Details LastModified Time Paternal Grandmother Malignant tumor of cervix [id number] Not available 09/17/2022 00:49:12 Medical History Condition Response USE OF BLOOD THINNERS Y DIZZINESS Y ALLERGIES/HAYFEVER Y HIGH CHOLESTEROL / HYPERLIPIDEMIA Y CARDIAC ARRHYTHMIA Y ANXIETY DISORDER Y BLOOD CLOTS Y ANEMIA/BLOOD DISORDER Y FEMALE PROBLEMS / INFECTIONS Y DEPRESSION (INCLUDING POST ) Y BOWEL PROBLEMS Y BACK / NECK PROBLEMS Y HERPES Y Gynecological History Statement/Question Response Abnormal Pap Y Date of LMP Date of Last Pap Smear 08/16/2019 Current Control Method Tubal Ligat ion Age at Menarche 13 Most Recent Mammogram 06/28/2019 Obstetrics History GPAL:G 0 P 0 0 0 0 Past Encounters Encounter ID Performer Location Encounter Start Date Encounter Closed Date Diagnosis/Indication Diagnosis SNOMED-CT Code Diagnosis ICD10 Code Diagnosis Note [id number] _ATHENA_M IGRATION_ DEFAULT_1 _1 , 10/03/2020 00:00:00 10/03/2020 09:44:02 [id number] You Pierce DPM [facility] [place] [address] [place] [address] 04/13/2023 11:53:16 04/14/2023 11:39:07 Plantar wart of left foot 1739215737 1967192 B07.0 educated on treatment optionsSal icylic acid applied to the wart todaypatie nt advised to use salicylic acid over-the-c ounter daily until blistering occurs then discontinu e provide wound care to prevent infectionF ollow-up in 1 week [id number] You Pierce DPM [facility] [place] [address] [place] [address] 04/20/2023 12:25:47 04/20/2023 12:47:37 Plantar wart of left foot 0114792316 6783177 B07.0 educated on treatment optionsSal icylic acid 30% applied to the wart todaypatie nt advised to use salicylic acid over-the-c ounter daily until blistering occurs then discontinu e provide wound care to prevent infectionF ollow-up in 1 week [id number] You Pierce DPM [facility] [place] [address] [place] [address] 04/27/2023 09:10:20 04/27/2023 10:38:12 Plantar wart of left foot 0020456154 6120985 B07.0 Discontinu e salicylic acidallow the area to healfollow -up 2 weeks Blister of foot without infection 1071715 S90.822A secondary to use of salicylic acid [...] Powers Member ID Guarantor Name 04/13/2023 1 [place] Naye S Tanner [id number] Naye S Tanner 04/13/2023 2 [place]: [place] [facility] [employer] Naye S Tanner [id number] Naye S Tanner 04/20/2023 1 [place] (MEDICARE) Naye S Tanner [id number] Naye S Tanner 04/20/2023 2 [place] [facility] [place] Naye S Tanner [id number] Naye Nassar Tanner 04/27/2023 1 [place] Naye Nassar Tanner [id number] Naye Nassar Tanner 04/27/2023 2 [place]: [facility] PUBLIC AID Naye Cunninghamle [id number] Naye Nassar Tanner Notes Date Note Type Note Provider Name and Address Organization Details Recorded Time 04/13/2023 text/html . Patient is a 57-year-old female who presents to the office with complaints of a wart to the plantar left foot. Patient states is been present for several weeks. Patient denies any treatment for this condition. Patient denies any other complaints. You Pierce DPM [address], [place], [address], [employer] 04/13/2023 14:42:57 04/20/2023 text/html . Patient is [...] any other complaints. You Pierce DPM [address], [address], [place], [address], [employer] 04/20/2023 12:46:20 04/27/2023 text/html . Patient is [...] any other complaints. You Pierce DPM [address], [address], [place], [address], [employer] 04/27/2023 10:37:00 OBGyn Episode No OBEpisode recorded.
--- OUTSIDE RECORDS SUMMARY | 2024-10-04 09:33 | XMS_ITS | Encounter Summary ---
Author Organization [facility] Healthcare Address [address] [place] [address] Care Team Providers Care Varnish Melter Name Role Phone Tom Paz MD Primary Care Provider [phone] Tab Taylor MD Unavailable Favian Caceres MD Unavailable [phone] Reason for Visit * Reason Onset Date Comments Scheduling Appointments 04/15/2024 Schedule patient for Imaging Genicular RFA Right (72323) and 1m follow Encounter Details Date Type Department Care Team (Late st Contact Info) Description 04/15/2024 Telephone [facility] [address] [address], [address] [place] [address] Dougie Lord MD [address] [address] Scheduling Appointments (Schedule patient for Imaging Genicular RFA Right (41544) and 1m follow ) Social History Tobacco Use Types Packs/Day Years Used Date Smoking Tobacco: Never Passive Smoke Exposure: Past Smokeless Tobacco: Never Alcohol Use Standard Drinks/Week Comments No 0 (1 standard drink = 0.6 oz pur e alcohol) [facility] Utilities Answer Date Recorded In the past 12 months has [employer] electric, gas, oil, or water company threatened [...] often do you attend chur ch or yarsani services? 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
--- OUTSIDE RECORDS SUMMARY | 2024-10-04 09:33 | XMS_ITS | CONTINUITY OF CARE DOCUMENT ---
Author Name diza perales Address Unknown Organization [facility] Address [address] [place] [address] Phone [phone] Care Team Providers Care Reducing Machine Operator Name Role Phone Tiago BRYANT, Hugo Unavailable [phone] MIRELA BRYANT, ANGEL F Unavailable [phone] MIRELA BRYANT, ANGEL F Unavailable PROBLEMS Condition [...] In-person encounter Office Visit Hugo Ordoñez MD [facility] Office - In-person encounter Office Visit Hugo Ordoñez MD [facility] - In-person encounter Office Visit Hugo Ordoñez MD [facility] - In-person encounter Office Visit Trent Pike MD [facility] - In-person encounter Office Visit Hugo Ordoñez MD [facility] - In-person encounter Office Visit Hugo Ordoñez MD [place] [facility] - In-person encounter Office Visit Morgan Roy MD [facility] Atrial Fibrillation s/p AMULETGroin pain, right - In-person encounter Office Visit Hugo Ordoñez MD [facility] Office - In-person encounter Office Visit Hugo Ordoñez MD [facility] - In-person encounter Office Visit Hugo Ordoñez MD [facility] - In-person encounter Office Visit Hugo Ordoñez MD [facility] Office - In-person encounter Office Visit Hugo Ordoñez MD [facility] - In-person encounter Office Visit Hugo Ordoñez MD [facility] - In-person encounter Office Visit Morgan Roy MD [facility] - In-person encounter Office Visit Hugo Ordoñez MD [facility] Ischemia, transient cerebral NOS - In-person encounter Office Visit Hugo Ordoñez MD [facility] - In-person encounter Office Visit Hugo Ordoñez MD [facility] - In-person encounter Office Visit Hugo Ordoñez MD [facility] Office - In-person encounter Office Visit Hugo Ordoñez MD [facility] - In-person encounter Office Visit Hugo Ordoñez MD [place] [facility] - In-person encounter Office Visit Hugo Ordoñez MD [facility] Office - In-person encounter Office Visit Hugo Ordoñez MD [place] [facility] COVID-19 asymptomatic, no exposure, testing results unknown or negative screening - In-person encounter Office Visit Hugo Ordoñez MD [facility] - In-person encounter Office Visit Hugo Ordoñez MD [facility] Office - In-person encounter Office Visit Hugo Ordoñez MD [place] [facility] - In-person encounter Office Visit Hugo Ordoñez MD [facility] - In-person encounter Office Visit Giorgio Catalan MD [facility] Office - In-person encounter Office Visit Hugo Ordoñez MD [facility] Office - In-person encounter Office Visit Hugo Ordoñez MD [facility] - In-person encounter Office Visit Hugo Ordoñez MD [facility] - In-person encounter Office Visit Jean Claude Calixto DO [facility] - In-person encounter Office Visit Hugo Ordoñez MD [facility] - In-person encounter Office Visit Jean Claude Calixto [facility] Office - In-person encounter Office Visit Jean Claude Daviess DO [facility] Office - In-person encounter Office Visit Hugo Ordoñez MD [place] [facility] - In-person encounter Office Visit Tab Taylor MD [facility] - In-person encounter Office Visit Hugo Ordoñez MD [facility] Office - In-person encounter Office Visit Hugo Ordoñez MD [facility] - In-person encounter Office Visit Tab Taylor MD [facility] - In-person encounter Office Visit Tab Taylor MD [facility] - In-person encounter Office Visit Tab Taylor MD [facility] - In-person encounter Office Visit Tab Taylor MD [facility] Office - In-person encounter Office Visit Hugo Ordoñez MD [facility] - In-person encounter Office Visit Tab Taylor MD [facility] - In-person encounter Office Visit Hugo Ordoñez MD [place] [facility] - In-person encounter Office Visit Tab Taylor MD [facility] Sinus node dysfunction - In-person encounter Office Visit Hugo Ordoñez MD [facility] Office - In-person encounter Office Visit Tab Taylor MD [place] [facility] - In-person encounter Office Visit Hugo Ordoñez MD [place] [facility] - In-person encounter Office Visit Tab Taylor MD [facility] - In-person encounter Office Visit Tab Taylor MD [facility] Presence of implantable loop recorder - In-person encounter Office Visit Tab Taylor MD [facility] Atrial Fibrillation s/p AMULET - In-person encounter Office Visit Hugo Ordoñez MD [place] [facility] Hyperlipidemia - In-person encounter Office Visit Hugo Ordoñez MD [facility] Office - In-person encounter Office Visit Hugo Ordoñez MD [facility] Office - In-person encounter Office Visit Tab Taylor MD [facility] - In-person encounter Office Visit Tab Taylor MD [facility] Office SVT S/P ablation - In-person encounter Office Visit Tab Taylor MD [facility] - In-person encounter Office Visit Hugo Ordoñez MD [facility] - In-person encounter Office Visit Hugo Ordoñez MD [facility] - In-person encounter Office Visit Hugo Ordoñez MD [facility] Office Diastolic heart fail ure, chronic - In-person encounter Office Visit Hugo Ordoñez MD [facility] Shortness of breathEdema - localized - In-person encounter Office Visit Rodo Berg MD [facility] - In-person encounter Office Visit Rodo Berg MD [facility] - In-person encounter Office Visit Hugo Ordoñez MD [facility] - In-person encounter Office Visit Rodo Berg MD [facility] Office Inappropriate sinus tachycardia - In-person encounter Office Visit Rodo Berg MD [facility] - In-person encounter Office Visit Rodo Berg MD [facility] - In-person encounter Office Visit Hugo Ordoñez MD [facility] - In-person encounter Office Visit Hugo Ordoñez MD [facility] - In-person encounter Office Visit Genaro Jane MD [facility] - In-person encounter Office Visit Hugo Ordoñez MD [facility] - In-person encounter Office Visit Hugo Ordoñez MD [facility] Venous thrombosis - In-person encounter Office Visit Hugo Ordoñez MD [facility] - In-person encounter Office Visit Hugo Ordoñez MD [facility] Palpitations - In-person encounter Office Visit Hugo Ordoñez MD [facility] - In-person encounter Office Visit Hugo Ordoñez MD [facility] - In-person encounter Office Visit Hugo Ordoñez MD [facility] - In-person encounter Office Visit Hugo Ordoñez MD [facility] - In-person encounter Office Visit Hugo Ordoñez MD [facility] - In-person encounter Office Visit Hugo Ordoñez MD [facility] - In-person encounter Office Visit Hguo Ordoñez MD [facility] - In-person encounter Office Visit Hugo Ordoñez MD [facility] - In-person encounter Office Visit Hugo Ordoñez MD [facility] - In-person encounter Office Visit Hugo Ordoñez MD [facility] REFLEX SYMPATHETIC DYSTROPHY OF THE LOWER [...] Gordon pulse rate 77 /min Kendra Rere [facility] weight E&M 196 [lb_av] Kendra Rere [facility] height E&M 68.5 [in_i] Kendra Rere [facility] Body Mass Index (Ratio) 29.51 kg/m2 Madison Pike MD blood pressure, diastolic 60 mm[Hg] Li nkLogic blood pressure, systolic 100 mm[Hg] Amee kLogic oxygen saturation, oximetry 98 % Kendra Grjono pulse rate 70 /min Kendra Grkelsienfe er blood pressure, diastolic 60 mm[Hg] Ke rri Gruenenfelder blood pressure, systolic 100 mm[Hg] Ker ri Gruenefreddy weight E&M 197 [lb_av] Kendra Gruenenfjose armando [facility] height E&M 68.5 [in_i] Kendra Gruenenfe er Body Mass Index (Ratio) 29.37 kg/m2 Bruce Ordoñez MD blood pressure, cuff size regular Ke rri Gruenenfelder blood pressure, diastolic 70 mm[Hg] Ke rri Gruenenfelder blood pressure, systolic 130 mm[Hg] Ker ri Rashiduenefreddy oxygen saturation, oximetry 96 % Kendra Lulufeliciaer respiratory rate E&M 12 /min Kendra G gretchenenefreddy pulse rate 91 /min Kendra Rere [facility] weight E&M 196 [lb_av] Kendra Gruenenfe er height E&M 68.5 [in_i] Kendra Gruenenfe [facility] Body Mass Index (Ratio) 28.77 kg/m2 Bruce Ordoñez MD blood pressure, cuff size regular Syed [place]ner blood pressure, diastolic 88 mm[Hg] Ta pat Fa[place]ner blood pressure, systolic 128 mm[Hg] Tab ithmaxime [place] oxygen saturation, oximetry 99 % Pdamajamaxime [place]ner pulse rate 92 /min Padmaja Fa[place]ner [...] er weight E&M 198 [lb_av] Kendra Gruenenfe [facility] height E&M 68.5 [in_i] Kendra Gruenenfe [facility] Body Mass Index (Ratio) 29.37 kg/m2 Rishabh [...] er height E&M 68.5 [in_i] Kendra Gruenenfe [facility] Body Mass Index (Ratio) 29.37 kg/m2 Bruce [...] respiratory rate E&M 12 /min Kendra Cally [facility] pulse rate 79 /min Kendra Rere [facility] weight E&M 199 [lb_av] Kendra Rere [facility] height E&M 68.5 [in_i] Kendra Rere [facility] Body Mass Index (Ratio) 29.07 kg/m2 Kam [...] navarro pulse rate 75 /min Kendra Rere [facility] weight E&M 193 [lb_av] Kendra Rere [facility] height E&M 68.5 [in_i] Kendra Rere [facility] Body Mass Index (Ratio) 29.51 kg/m2 Bruce [...] lder weight E&M 192 [lb_av] Kendra Gruenenfe [facility] height E&M 68.5 [in_i] Kendra Jernigan [facility] Body Mass Index (Ratio) 28.77 kg/m2 Bruce [...] Travis oxygen saturation, oximetry 97 % Corinne [place] respiratory rate E&M 16 /min Catheri ne Travis pulse rate 76 /min Corinne Travis weight E&M 184 [lb_av] Corinne Travis blood pressure, cuff size regular Ca therine [place] height E&M 68.5 [in_i] Corinne [place] Body Mass Index (Ratio) 27.27 kg/m2 Bruce Ordoñez MD blood pressure, diastolic 95 mm[Hg] Madeline nkLogic blood pressure, systolic 133 mm[Hg] Amee kLogic blood pressure, diastolic 95 mm[Hg] Ca therine Travis blood pressure, systolic 133 mm[Hg] Cat herine Travis oxygen saturation, oximetry 98 % Corinne Travis respiratory rate E&M 18 /min Catheri ne [place] pulse rate 92 /min Corinne Travis weight E&M 182 [lb_av] Corinne Travis blood pressure, cuff size regular Ca therine [place] height E&M 68.5 [in_i] Corinne Travis Body [...] blood pressure, cuff size regular Pa ris [place] blood pressure, diastolic 74 mm[Hg] Pa ris [place] blood pressure, systolic 136 mm[Hg] [place] oxygen saturation, oximetry 98 % Sophia [place] respiratory rate E&M 18 /min Sophia H neda pulse rate 74 /min Sophia [place] height E&M 68.5 [in_i] Sophia [place] Body Mass Index (Ratio) 28.35 kg/m2 Sund brda Catalan MD blood pressure, cuff size regular [...] Travis oxygen saturation, oximetry 96 % Corinne [place] respiratory rate E&M 14 /min Catheri ne [place] pulse rate 92 /min Corinne [place] height E&M 68.5 [in_i] Corinne [place] Body Mass Index (Ratio) 29.07 kg/m2 Bruce Ordoñez MD blood pressure, diastolic 90 mm[Hg] Madeline nkLogic blood pressure, systolic 136 mm[Hg] Amee kLogic blood pressure, diastolic 90 mm[Hg] Mi juan [facility] blood pressure, systolic 136 mm[Hg] Cayden helle [facility] oxygen saturation, oximetry 98 % Denise French [...] Bradford Castilloby pulse rate 65 /min Va Clarita blood pressure, diastolic 80 mm[Hg] Bradford coulter [place] blood pressure, systolic 118 mm[Hg] Aguila Castilloby oxygen saturation, oximetry 97 % Va Castilloby respiratory rate E&M 19 /min Va [place] weight E&M 192 [lb_av] Va Castilloby height E&M 68.5 [in_i] Va [place] Body Mass Index (Ratio) 28.62 kg/m2 Phillipkalani tom Daviess DO blood pressure, cuff size large Ke [...] blood pressure, diastolic 72 mm[Hg] Mi juan [facility] blood pressure, systolic 130 mm[Hg] Cayden helanya [facility] blood pressure, resting No Román dent [facility] oxygen saturation, oximetry 98 % Denise [facility] respiratory rate E&M 18 /min Kimberly suárez [facility] pulse rate 67 /min Denise [facility] weight E&M 191 [lb_av] Denise [facility] height E&M 68.5 [in_i] Denise [facility] Body Mass Index (Ratio) 27.57 kg/m2 JT [...] Chris oxygen saturation, oximetry 99 % Va [place] blood pressure, diastolic 70 mm[Hg] Bradford isty [place] blood pressure, systolic 122 mm[Hg] Bradfordi estuardo Chris respiratory rate E&M 19 /min Va Chris weight E&M 185 [lb_av] Va [place] height E&M 68.5 [in_i] Va [place] Body Mass Index (Ratio) 26.82 kg/m2 Grisel [...] Ordoñez MD respiratory rate E&M 16 /min [facility] [place] blood pressure, diastolic 97 mm[Hg] To nsha [place] blood pressure, systolic 145 mm[Hg] Ton [facility] oxygen saturation, oximetry 98 % Tons [place] pulse rate 94 /min [facility] weight E&M 185 [lb_av] Tons [place] height E&M 68.5 [in_i] [facility] Body Mass Index (Ratio) 27.87 [...] blood pressure, systolic 130 mm[Hg] Gisele stity Ajime respiratory rate E&M 16 /min Giselestit y [...] Joslyn Andreabel l weight E&M 187 [lb_av] Josyln Campbel l height E&M 68.5 [in_i] Joslyn Campbel l Body Mass Index (Ratio) 28.02 kg/m2 Jord en Cam blood pressure, diastolic 80 mm[Hg] Br ittany Block blood pressure, systolic 130 mm[Hg] Jessica ttany Block pulse rate 111 /min Sania Block oxygen saturation, oximetry 97 % Sania Block weight E&M 187 [lb_av] Sania Block respiratory rate E&M 16 /min [facility] top[facility] Block height E&M 68.5 [in_i] Sania Block Body Mass Index (Ratio) 28.92 kg/m2 Jord en Cam pulse rate 96 /min Sania Block blood pressure, diastolic 84 mm[Hg] Br ittany Block blood pressure, systolic 140 mm[Hg] Jessica tony Block oxygen saturation, oximetry 98 % [facility] weight E&M 193 [lb_av] Sania [facility] respiratory rate E&M 16 /min [facility] topete Block height E&M 68.5 [in_i] [facility] Body Mass Index (Ratio) 27.87 kg/m2 [...] /min Berenicetan Block height E&M 68.5 [in_i] [facility] Body Mass Index (Ratio) 30.86 kg/m2 [...] Lara Aly height E&M 68.5 [in_i] [facility] Body [facility] (Ratio) 34.16 kg/m2 Sammy Rock blood pressure, cuff size large Ke rri Lulubaylor [facility] blood pressure, diastolic 86 mm[Hg] Rusty rri [facility] blood pressure, systolic 148 mm[Hg] Kera tim Lawsonmount [facility] oxygen saturation, oximetry 98 % Kendra Gordon respiratory rate E&M 20 /min Kendra navarro pulse rate 76 /min Kendratim Jernigan [facility] weight E&M 228 [lb_av] Kendra Lulujose armando er height E&M 68.5 [in_i] Kendra Conradokodakjose armando [facility] Body Mass Index (Ratio) 34.01 kg/m2 Bruce [...] Castilloby oxygen saturation, oximetry 94 % Va Casitlloby pulse rate 78 /min Va Castilloby blood pressure, cuff size regular Bradford Castillo weight E&M 225 [lb_av] Va Castillo height E&M 68.5 [in_i] Va Castillo blood pressure, diastolic 94 mm[Hg] Cordell su Emma blood pressure, systolic 132 mm[Hg] Jim sierra [facility] oxygen saturation, oximetry 97 % Nataly [facility] respiratory rate E&M 15 /min Nataly [facility] pulse rate 71 /[facility] E&M 68.5 [in_i] [facility] Body Mass Index (Ratio) 32.60 kg/m2 Bruce [...] Floydhley blood pressure, systolic 150 mm[Hg] Jose [facility] oxygen saturation, oximetry 98 % Elana Marguerite respiratory rate E&M 18 /min [facility] pulse rate 87 /min [facility] blood pressure, resting No Nela royer Marguerite weight E&M 218.2 [lb_av] Elana topete Body Mass Index (Ratio) 31.16 kg/m2 Bruce Ordoñez MD blood pressure, diastolic 90 mm[Hg] Bradford isty Chris blood pressure, systolic 130 mm[Hg] Kri stefrem Castilloby pulse rate 95 /min Va Clarita oxygen saturation, oximetry 97 % Va Chris respiratory rate E&M 16 /min Va Chris blood pressure, cuff size regular Kr isty [place] weight E&M 208 [lb_av] Va Chris height E&M 68.5 [in_i] Va Clarita blood pressure, diastolic 80 mm[Hg] Kr isty Chris blood pressure, systolic 132 mm[Hg] Kri sty Chris pulse rate 96 /min Va Chris oxygen saturation, oximetry 98 % Va Clar[place] respiratory rate E&M 16 /min Va Chris [...] Brianna Larry blood pressure, diastolic 79 mm[Hg] Sc ayan Larry blood pressure, systolic 122 mm[Hg] [...] Juani Jarquin weight E&M 187 [lb_av] Farnaz Sebatsianoney blood pressure, diastolic 92 mm[Hg] Ta karen [...] blood pressure, systolic 100 mm[Hg] Gaviota grant [facility] pulse rate 105 /min Cristiane [facility] oxygen saturation, oximetry 93 % Cristiane [facility] respiratory rate E&M 17 /min Ish Sorto weight E&M 185 [lb_av] [facility] blood pressure, diastolic 60 mm[Hg] Linda [...] 90 mL/min/{1.7 3_m2} LinkLogic >=60 Normal C, [place] [address] aspartate aminotransferase (SGOT), serum 34 1/L LinkLogic 10-45 Normal C, [place] [address] alanine aminotransferase (SGPT), serum 35 1/L LinkLogic 7-45 Normal C, [place] [address] Alkaline phosphatase 89 LinkLogic 40-130 Normal C, [place] [address] albumin, serum 4.3 g/dL LinkLogic 3.5-5.0 Normal C, [place] [address] protein, total, serum 7.1 g/dL LinkLogic 6.5-8.5 Normal C, [place] [address] bilirubin, serum, total 0.7 mg/dL LinkLogic 0.1-1.2 Normal , [place] [address] calcium, serum 9.2 mg/dL LinkLogic 8.5-10.3 Normal C, [place] [address] blood glucose, random 74 mg/dL LinkLogic 70-199 Normal C, [place] [address] creatine, serum 0.76 mg/dL LinkLogic 0.60-1.10 Normal C, [place] [address] urea nitrogen, blood 12 mg/dL LinkLogic 6-25 Normal C, [place] [address] anion gap, serum 9 mmol/L LinkLogic 2-15 Normal C, [place] [address] carbon dioxide, venous blood 28 mmol/L LinkLogic 22-32 Normal C, [place] [address] chloride, serum 96 mmol/L LinkLogic 97-110 Low C, [place] [address] potassium, serum 3.8 MMOL/L LinkLogic 3.3-4.9 Normal C, [place] [address] sodium, serum 133 mmol/L LinkLogic 135-145 Low C, [place] [address] activated partial thromboplastin time (aPTT) 50 s LinkLogic 28-38 High C, [place] [address] international normalized ratio (INR) 3.50 LinkLogic 0.90-1.20 High C, [place] [address] prothrombin time (patient) 39.9 s LinkLogic 10.3-13.7 High C, [place] [address] Absolute Basophils 0.0 K/CUMM LinkLogic 0.0-0.1 Normal C, [place] [address] Absolute Monocytes 0.6 K/CUMM LinkLogic 0.2-0.8 Normal C, [place] [address] Absolute Lymphocytes 1.4 K/CUMM LinkLogic 0.8-3.3 Normal C, [place] [address] Absolute Neutrophils 4.7 K/CUMM LinkLogic 1.5-6.5 Normal C, [place] [address] nucleated red blood cells as percent of [...] LinkLogic 3.5-5.2 sodium, serum 142 mmol/L LinkLogic [phone]/06 /14 urea nitrogen/creatinine ratio, serum 20 LinkLogic [...] Not Estab. platelet count 233 X10E3/UL LinkLog [phone]/04 /22 red blood cell distribution width 13.1 % LinkLog 11.7-15.4 mean corpuscular hemoglobin concentration, RBC 34.6 G/DL LinkLogic 31.5-35.7 mean corpuscular hemoglobin, RBC 35.3 pg LinkLogic 26.6-33.0 High mean corpuscular volume, RBC 102 fL LinkLogic 79-97 High hematocrit, blood 40.8 % LinkLog 34.0-46.6 hemoglobin, blood 14.1 g/dL [facility] erythrocyte (RBC) count 4.00 X10E6/UL LinkLog 3.77-5.28 leukocyte count, blood 4.1 X10E3/UL [facility] 3.4-10.8 alanine aminotransferase (SGPT), serum 21 [...] LinkLogic 3.5-5.2 sodium, serum 144 mmol/L LinkLogic [phone]/04 /22 urea nitrogen/creatinine ratio, serum 17 LinkLogic [...] Not Estab. platelet count 252 X10E3/UL LinkLogic [phone]/10 /27 red blood cell distribution width 13.4 [...] Not Estab. platelet count 217 X10E3/UL LinkLogic [phone]/09 /24 red blood cell distribution width 12.9 [...] LinkLogic 3.5-5.2 sodium, serum 144 mmol/L LinkLogic [phone]/06 /11 urea nitrogen/creatinine ratio, serum 17 LinkLogic [...] Not Estab. platelet count 224 X10E3/UL LinkLogic [phone]/06 /11 red blood cell distribution width 13.8 [...] LinkLogic 3.5-5.2 sodium, serum 142 mmol/L LinkLogic [phone]/05 /08 urea nitrogen/creatinine ratio, serum 22 LinkLogic [...] Not Estab. platelet count 225 X10E3/UL LinkLogic [phone]/05 /08 red blood cell distribution width 13.7 [...] Not Estab. platelet count 235 X10E3/UL LinkLogic [phone]/04 /29 red blood cell distribution width 13.6 [...] Not Estab. platelet count 235 X10E3/UL LinkLogic [phone]/12 /04 red blood cell distribution width 14.3 [...] LinkLogic 3.5-5.2 sodium, serum 144 mmol/L LinkLogic [phone]/05 /23 urea nitrogen/creatinine ratio, serum 20 LinkLogic [...] LinkLogic 3.5-5.2 sodium, serum 143 mmol/L LinkLogic 235-200 3748/02 /07 urea nitrogen/creatinine ratio, serum 18 LinkLogic [...] Not Estab. platelet count 239 X10E3/UL LinkLogic [phone]/02 /07 red blood cell distribution width 13.9 [...] celecoxib 200 mg capsule active Oh Celestin DNP,SUPERINTENDENT AUTOMOTIVE leflunomide 20 mg tablet active Oh Celestin DNP,SUPERINTENDENT AUTOMOTIVE Simponi 50 mg/0.5 mL pen injector active Oh Celestin DNP,SUPERINTENDENT AUTOMOTIVE pantoprazole 40 mg tablet,delayed release (DR/EC) active [...] #25, 5 days supply, Prescribed by [facility], NOT PROVIDED, Filled 04/03/2020 diclofenac [...] in the am - 07/26 Oh Celestin DNP,SUPERINTENDENT AUTOMOTIVE metoprolol tartrate 25 mg tablet completed Take [...] mouth once daily 01/25 - 02/08 Ghazala Collisn B COMPLEX TABELT completed take one tablet [...] history of marijuana use no Oh Celestin DNP,SUPERINTENDENT AUTOMOTIVE drug use no Oh Celestin DN P,SUPERINTENDENT AUTOMOTIVE alcohol use no Oh Celestin DN P,SUPERINTENDENT AUTOMOTIVE passive cigarette sm kelvin exposure no Oh Celestin DNP,SUPERINTENDENT AUTOMOTIVE smoking status Never smoker Oh Celestin DNP,SUPERINTENDENT AUTOMOTIVE drug use none Hugo Lilly alcohol use [...] of grandchildren Hugo Ordoñez MD Elianagustavo [place] [employer] drug use none Eliana Leahyluri [employer] alcohol use no Eliana Nalluri [employer] passive cigarette sm kelvin exposure no Eliana Nalluri [employer] smoking status Never smoker Eliana Nallu ri [employer] drug use none Brenda Dennis alcohol use [...] Heidi passive cigarette sm kelvin exposure no Knedra Mikejono smoking status Never smoker Kendra Navarro [...] exercise, frequency, days per week yes Corinne [place] caffeine use, averag e drinks per day no Corinne Travis passive cigarette sm kelvin exposure no Corinne [place] smoking status Never smoker Corinne Ana s [...] averag e drinks per day no Corinne [place] passive cigarette sm kelvin exposure no Corinne [place] smoking status Never smoker Corinne Ana s social history reviewed E&M revi ewed - no changes required Hugo Ordoñez MD social history E&M Marital Statu s: / L sharita alone E thnicity: Smoking History: P shahab has never smoked. Hugo Ordoñez MD social history reviewed E&M revi ewed - no changes required uHgo Ordoñez MD seatbelt usage 100 % [place] physical exercise, frequency, days per week yes Sophia [place] caffeine use, averag e drinks per day no [place] passive cigarette sm kelvin exposure no Sophia [place] smoking status [facility]oker [facility] E&M Marital Statu s: / L sharita alone E thnicity: Smoking History: P shahab has never smoked. Hugo Ordoñez MD social history reviewed E&M revi ewed - no changes required Hugo Ordoñez MD seatbelt usage 100 % Corinne Ana s physical exercise, frequency, days per week yes [facility] [place] caffeine use, averag e drinks per day no [facility] [place] passive cigarette sm kelvin exposure no Corinne [...] averag e drinks per day no [facility] passive cigarette sm kelvin exposure no [facility] smoking status Never smoker Va Castilloby social [...] Ordoñez MD seatbelt usage 100 % Sania [place] physical exercise, frequency, days per week yes [facility] caffeine use, averag e drinks per day no [facility] passive cigarette sm kelvin exposure no [facility] smoking status Never smoker [facility] social history E&M Marital Statu s: / L sharita alone E thnicity: Smoking History: P shahab has never smoked. Hugo Ordoñez MD social history reviewed E&M revi ewed - no changes required Hugo Ordoñez MD seatbelt usage 100 % [facility] physical exercise, frequency, days per week yes [facility] caffeine use, averag e drinks per day no [facility] passive cigarette sm kelvin exposure no [facility] smoking status Never smoker Sania [place] smoking status Never smoker Yo griffith social history E&M Marital Statu s: / L sharita alone E thnicity: Smoking History: P shahab has never smoked. Yo Heller social history reviewed E&M revi ewed - no changes required Yo Heller seatbelt usage 100 % Va Perez physical exercise, frequency, days per week yes [facility] caffeine use, averag e drinks per day no [facility] [place] passive cigarette sm kelvin exposure no Va Chris social history reviewed E&M revi ewed - no changes required Celestine Cam seatbelt usage 100 % Tonsha Hensley physical exercise, frequency, days per week yes Tonsha [place] caffeine use, averag e drinks per day no Tonsha [place] passive cigarette sm kelvin exposure no Tonsha Hens[place] smoking status Never smoker [facility] social history reviewed E&M revi ewed [...] Hugo Ordoñez MD seatbelt usage 100 % [facility] physical exercise, frequency, days per week yes [facility] caffeine use, averag e drinks per day no [facility] passive cigarette sm kelvin exposure no [facility] smoking status Never smoker [facility] social history reviewed E&M revi ewed [...] Hugo Ordoñez MD seatbelt usage 100 % [facility] physical exercise, frequency, days per week yes Tonsha Hensley caffeine use, averag e drinks per day no Tonsha Hens[place] passive cigarette sm kelvin exposure no [facility] smoking status Never smoker [facility] social history E&M Marital Statu s: [...] passive cigarette sm kelvin exposure no [facility] smoking status Never smoker [facility] social history reviewed E&M revi ewed - no changes required Tab Taylor MD seatbelt usage 100 % [facility] physical exercise, frequency, days per week yes [facility] caffeine use, averag e drinks per day no [facility] passive cigarette sm kelvin exposure no [facility] smoking status Never smoker [facility] seatbelt usage 100 % Velma uriarte-Kashif [...] Ordoñez MD seatbelt usage 100 % Sania [facility] physical exercise, frequency, days per week yes [facility] caffeine use, averag e drinks per day no [facility] passive cigarette sm kelvin exposure no [facility] smoking status Never smoker [facility] social history E&M Marital Statu s: [...] use, averag e drinks [facility] Chastity Jaime [...] none Va Perez alcohol use no [facility] caffeine use, averag e drinks per day no Va Castilloby drug use none [facility] passive cigarette sm kelvin exposure no Va [...] MD number of grandchildren Hugo Ordoñez MD [facility] social history reviewed E&M [...] per day none [employer] smoking status Non-smoker [facility] MENTAL STATUS Date Observation Value [...] Payer name Policy type / Coverage type [place] red alliance party ID [facility] [id number] [place] Medicare [id number] ADVANCE DIRECTIVES Name Date DISCUSSED - NO DECISION MADE TREATMENT PLAN Date Name Performer [id number],S, Hugo uriarte MD [id number],S, Hugo uriarte MD [id number],S, Hugo uriarte MD [id number],S, Hugo uriarte MD [id number],S, Hugo uriarte MD [id number],S, Hugo uriarte MD [id number],S, Hugo uriarte MD [id number],B, Hugo uriarte MD [id number],S, Hugo uriarte MD [id number],S, Hugo uriarte MD [id number],S, Hugo uriarte MD [id number],B, Hugo uriarte MD [id number],S, Hugo uriarte MD [id number],B, Hugo uriarte MD [id number],S, Hugo Ramada n [place] [id number],S, Hugo Ramada n [place] [id number],B, Hugo Ramada n [place] [id number],S, Hugo Ramada n [place] [id number],S, Hugo Ramada n [place] [id number],S, Hugo Ramada n [place] [id number],S, Hugo Ramada n [place] [id number],S, Hugo Ramada n [place] [id number],S, Hugo Ramada n [place] [id number],S, Hugo Ramada n [place] [id number],S, Hugo Ramada n [place] [id number],S, Hugo Ramada n [place] [id number],S, Hugo Ramada n [place] [id number],S, Hugo Ramada n [place] [id number],S, Hugo Ramada n [place] [id number],S, Hugo Ramada n [place] [id number],S, Hugo Ramada n [place] [id number],S, Hugo Ramada n [place] [id number],S, Hugo Ramada n [place] [id number],S, Hugo Ramada n [place] [id number],S, Hugo Ramada n [place] [id number],S, Hugo Ramada n [place] [id number],S, Hugo Natividad uriarte MD [id number],S, Hugo Silverioalana uriarte MD [id number],B,S teroids improved pain. Lab shows systemic inflammation. Hugo Ordoñez MD [id number],S, Hugo Natividad uriarte MD [id number],S, Hugo Natividad uriarte MD [id number],S, Hugo Natividad uriarte MD [id number],B, Hugo Natividad uriarte MD [id number],S, Hugo Natividad uriarte MD [id number],S, Hugo Natividad uriarte MD [id number],B, Hugo Natividad uriarte MD [id number],S, Hugo Natividad uriarte MD [id number],S, Hugo Natividad uriarte [place] [id number],S, Hugo Natividad uriarte [place] [id number],S, Hugoshad Silverioalana uriarte [place] [id number],S, Hugoshad Silverioalana uriarte [place] [id number],B,R 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 Hugo Ordoñez MD [id number],S, Hugo Natividad uriarte MD [id number],S, Hugo Natividad uriarte MD [id number],S, Hugo Natividad uriarte MD [id number],S, Hugo Natividad uriarte MD [id number],S, Hugo uriarte IL [id number],S, Hugo uriarte MD [id number],B, Hugo uriarte MD [id number],S, Hugo uriarte MD [id number],B, Hugo uriarte MD [id number],W,S eems pacer related. Will replace RV lead with a septal implant and try to remove old lead. Hugo Ordoñez MD [id number],S, Hugo uriarte MD [id number],B, Hugo uriarte MD [id number],S, Hugo uriarte MD [facility] Malina Blood Take your medication [...] 2019 that showed no obstructuve CAD Mario Beulah Cardiology:This visi t has been a part [...] PROCEDURE FOR BLADDER SLING DONE AT [facility] W/ JESSICA UROLOGIST O K [...] MD Cardiology Hugo Ordoñez MD Cardiology Hugo Orodñez MD Cardiology Hugo Ordoñez MD Cardiology Hugo [...] Ordoñez MD Cardiology:On OAC Eliana Nallur i PRODUCTION COOK Cardiology:Mild sob with exertio n Eliana Nalluri PRODUCTION COOK Cardiology:None Eliana Leahyluri PRODUCTION COOK Cardiology:EF 70% Her updated medication list for [...] 3 tabs seek medical attention Eliana Boswellri PRODUCTION COOK Cardiology: H er updated medication list for this problem includes: Rosuvastatin 40 Mg Tablet (Rosuvastatin) ..... Take 1 tablet by mouth once a day Eliana Boswellri PRODUCTION COOK Cardiology:AT episod e on 10/10/23 for 4m 30s, EGM appears t o show PAT. On warfarin for OAC Eliana Leahyluri PRODUCTION COOK Cardiology:s/p PPM Eliana Leahylu ri PRODUCTION COOK Cardiology:RA 91%, R V 100% b attery 60% Eliana Boswellri PRODUCTION COOK Cardiology: W as recently in the hospital [...] PPM if her symptoms fail to resolve. [id number] appears to be ST 120-130's, AsVP, 100% RV paced, Metoprolol increased to 50mg BID, much improved symptoms since these changes Linda Scott PRODUCTION COOK Electrophysiology Fo llow up : i nterrogation today 0% AF burden Linda Scott NP Electrophysiology Fo llow up :[id number], appears to be ST, 120-130's rate, AsVp, [...] P:interrogation today 0% AF burden Lori Cummings PRODUCTION COOK Electrophysiology- N P:interrogation today: ST 120's. longeset [...] DC PPM implant 06/2019. P resented to [facility] 03/2020 and was told by [employer] there she was having SVT . S [...] 03/2020 CHOL 195, Trig 213, HDL 37, [id number]. L ipoprotein 119.7 A polipoprotein B 114 Yo Heller Electrophysiology:Un derwent AV node ablation 12/2019 with prior DC PPM implant 06/2019. H ospitalized at [facility] and was told by [employer] there she was having SVT . S [...] (Aspirin) ..... One tab by mouth daily [facility] Cardiology [facility] Cardiology: H er updated medication list for this problem includes: Warfarin Sodium 5 Mg Tablet (Warfarin sodium) ..... Take 1 tablet by mouth starting 7 days prior to procedure Aspirin Adult Low Dose 81 Mg Oral Tablet Delayed Release (Aspirin) ..... One tab by mouth daily [facility] Cardiology: H er updated medication list for this problem includes: Warfarin Sodium 5 Mg Tablet (Warfarin sodium) ..... Take 1 tablet by mouth starting 7 days prior to procedure Aspirin Adult Low Dose 81 Mg Oral Tablet Delayed Release (Aspirin) ..... One tab by mouth daily [facility] TeleHealth: H er updated medication list for this problem includes: Warfarin Sodium 5 Mg Oral Tablet (Warfarin sodium) ..... One tab by mouth starting 7 days prior to procedure Aspirin Adult Low Dose 81 Mg Oral Tablet Delayed Release (Aspirin) ..... One tab by mouth daily [facility] TeleHealth: H er updated medication list for this problem includes: Warfarin Sodium 5 Mg Oral Tablet (Warfarin sodium) ..... One tab by mouth starting 7 days prior to procedure Aspirin Adult Low Dose 81 Mg Oral Tablet Delayed Release (Aspirin) ..... One tab by mouth daily [facility] TeleHealth: H er updated medication list for this problem includes: Warfarin Sodium 5 Mg Oral Tablet (Warfarin sodium) ..... One tab by mouth starting 7 days prior to procedure Aspirin Adult Low Dose 81 Mg Oral Tablet Delayed Release (Aspirin) ..... One tab by mouth daily [facility] TeleHealth:Reschedul e AV node ablation with carto and anesthesia after December 23, No need for CT [facility] TeleHealth: H er updated medication list for this problem includes: Aspirin Adult Low Dose 81 Mg Oral Tablet Delayed Release (Aspirin) ..... One tab by mouth daily [facility] TeleHealth: H er updated medication list for this problem includes: Aspirin Adult Low Dose 81 Mg Oral Tablet Delayed Release (Aspirin) ..... One tab by mouth daily [facility] TeleHealth [facility] TeleHealth: H er updated medication list for this problem includes: Aspirin Adult Low Dose 81 Mg Oral Tablet Delayed Release (Aspirin) ..... One tab by mouth daily [facility] TeleHealth:No episod es reported for [...] Dr. Ordoñez to do PPM implant at [facility] for sinus node dysfunction. The following medications [...] Hugo Ordoñez MD Cardiology-seen with MD and PRODUCTION COOK Maxime Gamboa [facility] Cardiology-seen with MD and PRODUCTION COOK : none noted on ILR Dionne Gamboa [facility] Cardiology-seen with MD and PRODUCTION COOK :Pt remains symptomatic with tachycardia interfering with [...] One tab by mouth daily Dionne Gamboa [facility] Cardiology:well heal ing scar a vised pt to apply ice pack on incision site. Celestine Levy Electrophysiology:IL R implantation O rders: E KG (CPT-45338) 9 9213 LTD. Complex (CPT-76002) 6 minute walk test (CPT-62929) Her updated medication list for this problem includes: Metoprolol Tartrate 25 Mg Oral Tablet (Metoprolol tartrate) ..... One tab. twice daily Aspirin Adult Low Dose 81 Mg Oral Tablet Delayed Release (Aspirin) ..... One tab by mouth daily Tab Taylor MD Electrophysiology: O rders: 9 9213 LTD. Complex (CPT-21660) 6 minute walk test (CPT-27466) L oop Rec Implant - [facility] (*) Her updated medication list for this problem includes: Metoprolol Tartrate 25 Mg Oral Tablet (Metoprolol tartrate) ..... One tab. twice daily Aspirin Adult Low Dose 81 Mg Oral Tablet Delayed Release (Aspirin) ..... One tab by mouth daily Tab Taylor MD Electrophysiology: O rders: 9 9213 LTD. Complex (CPT-77832) 6 minute walk test (CPT-85369) L oop Rec Implant - [facility] (*) Her updated medication list for this problem includes: Metoprolol Tartrate 25 Mg Oral Tablet (Metoprolol tartrate) ..... One tab. twice daily Aspirin Adult Low Dose 81 Mg Oral Tablet Delayed Release (Aspirin) ..... One tab by mouth daily Tab Taylor MD Electrophysiology:IL R implantation at [facility] with Dr. Tiago Ramirez ill evaluate ILR [...] a day. Orders: 9 9214 MOD Complex (CPT-77908) B ASIC METABOLIC PANEL W/EGFR (12475) D -DIMER, QUANTITATIVE (8659) D -DIMER, QUANTITATIVE (8659) M obile Cardiac Tele (CPT-87299) Celestine Levy Cardiology Tab castaneda MD Cardiology: [...] tablet twice a day. [facility]: nuclear stress test Summary 1 . Normal myocardial perfusion imaging after vasodilator stress with Regadenoson. 2 . Normal left ventricular systolic function with a calculated ejection fraction of 75%. 3 . No obvious significant scintigraphic evidence of myocardial ischemia or scar. Cam 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 [...] tablet twice a day. Orders: E KG (CPT-24735) 9 9215 HIGH Complex (CPT-63099) A BLATION w/ Anesthesia (*) obile Cardiac Tele (CPT-44596) [facility] Electrophysiology Ne w Patient : O rders: E KG (CPT-18020) 9 9215 HIGH Complex (CPT-08426) A BLATION w/ Anesthesia (*) Her updated [...] MD Cardiology Hugo Ordoñez MD Cardiology Hugo rOdoñez MD Cardiology Genaro Lilly Cardiology Genaro Lilly [...] follow up : O rders: E KG (CPT-45250) BP today: 140/96 Prior BP: 136/92 (02/28/2013) [...] ..... Three times daily Orders: E KG (CPT-53788) BP today: 121/86 Prior BP: 127/88 (10/20/2011) [...] MD : O rders: C omplete Echo (CPT-31773) S tress Test - Adenosine (96547) Hugo Ordoñez MD : O rders: C omplete Echo (CPT-09760) Hugo Ordoñez MD : O rders: S tress Test - Adenosine (64515) E vent Recorder (*) BP today: 86/60 [...] S tatus Complex e/m visit add on uHgo Ordoñez MD completed Complex e/m visit add [...] EKG Hugo Ordoñez MD complete d SNOMED-CT: 297240347892895 Current Medications Documented Hugo Ordoñez MD completed SNOMED-CT: 692234420625685 Current Medications Documented Hugo Ordoñez MD completed EKG Rodo Berg MD comp leted SNOMED-CT: 427252577716727 Current Medications Documented Rodo Berg MD completed EKG Rodo Berg MD comp leted SNOMED-CT: 583875086119589 Current Medications Documented Rodo Berg MD completed SNOMED-CT: 910258735068418 Current Medications Documented Hugo Ordoñez MD completed EKG Hugo Ordoñez MD complete d SNOMED-CT: 090843204636302 Current Medications Documented Hugo Ordoñez MD completed EKG Rodo Berg MD comp leted SNOMED-CT: 841514928995561 Current Medications Documented Rodo Berg MD completed SNOMED-CT: 510487504205441 Current Medications Documented Hugo Ordoñez MD completed Event Monitor Luis M Pagan completed Stress EKG Yonathan Bernard MD complet ed Regadenoson, 4 units Yonathan Bernard MD completed Cardiolite, 2 units Yonathan Bernard MD completed SPECT Images Yonathan Bernard MD compl eted SNOMED-CT: 890017331782587 Current Medications Documented Hugo Ordoñez MD completed Ambulatory BP Genaro Jane MD comp leted Ambulatory BP Genaro Jane MD comp leted EKG Genaro Jane MD complet ed SNOMED-CT: 050151095350720 Current Medications Documented Genaro Jane MD completed LISSETTE Ordoñez MD complete d SNOMED-CT: 108471522491894 Current Medications Documented Hugo Ordoñez MD completed LISSETTE Ordoñez MD complete d LISSETTE Ordoñez MD complete d
--- OUTSIDE RECORDS SUMMARY | 2024-10-04 09:33 | XMS_ITS | Encounter Summary ---
Author Organization [facility] Healthcare Address [address] [place] [address] Care Team Providers Care Breadman Name Role Phone Tom Paz MD Primary Care Provider [phone] Tab Taylor MD Unavailable [phone] Favian Caceres MD Unavailable [phone] Encounter Details Date Type Department Care Team (Late st Contact Info) Description 02/11/[address] [facility] Case Management [address] [place] [address] Gaviota Benz RN Social History Tobacco Use Types Packs/Day Years Used Date Smoking Tobacco: Never Passive Smoke Exposure: Past Smokeless Tobacco: Never Alcohol Use Standard Drinks/Week Comments No 0 (1 standard drink = 0.6 oz pur e alcohol) [facility] Utilities Answer Date Recorded In the past 12 months has [employer], gas, oil, or water [employer] threatened to shut off services in your [...] How often do you attend chur or moravian services? More than 4 times per year [...] place to sleep or slept in a fpc (including now)? No 11/02/2023 Housing Stability Vital [...] time in the past 12 m [facility], were you homeless or living in a fpc (including now)? No 02/11/2024 Personal Safety Answer Date Recorded Have you ever been in or are you currently in a harmful physical or emotional relationship or is someone making you feel afraid or unsafe? Denies 02/09/2024 Comments No Sex and Gender Information Value Date Recorded Sex Assigned at Not on file Legal Sex Female 12:21 AM [employer] Gender Identity Not on file Sexual Orientation Not on file documented as of this encounter Functional Status * Audit-C Score Answer Date of Assessment Author 0 02/11/2024 4:35 PM CDT Lamonte Benz RN * Question Answer Date of Assessment [...] occasion? Never 02/11/2024 4:35 PM CDT Gaviota Benz R N documented as of this encounter Miscellaneous [...] Medicare and IDPA Prescription Coverage: Yes Pharmacy: [facility]/pharmacy #[id number] [facility] [address] [id number] [place] [address] [facility] [address] [facility] [address] [facility] - [place], [place] - [address] [facility] [address] [facility] [address] [place], [place] - [address] [facility] [address] [place] [facility] [address] Primary Care Provider: Tom Paz MD Prior to Admission: Functional Status: Minimal assist with ADLs Primary Caregiver: Private caregiver Support System: Children, Friends/neighbors (Son: Porter Serrano [phone]/Friend: Federico [phone]) Home Care Services: Yes Type of Home Care Services: mental health worker (mental health worker 5 days per week, 5-6.25 hour [...] were you homeless or living in a fpc (including now)?: No (02/11/24 1634) Utilities: Yes (SW Consult), (02/11/24 1635) Social Connections: In a typical week, how many times do you talk on the phone with family, friends, or neighbors?: Once a week How often do you get together with friends or relatives?: Once a week How often do you attend hoahaoism or moravian services?: More than 4 times per year Do you belong to any clubs or organizations such as hoahaoism groups, unions, fraternal or athletic groups, or school groups?: No How often do you attend meetings of the clubs or organizations you belong to?: Never Are you , , , , never , or living with a partner?: (02/11/241633) Food Insecurity: Within the past 12 months, [...] or more drinks on one occasion?: Never (02/11/241634) PHQ Screening Potential discharge needs include: Home [...] reports needing assistance with ADLs. Has a dining service worker and has a quad cane and [...] Collaboration with Patient, Provider, Direct Care Nurse, Assistant Mechanic, and other members of theHealth Care Team to assure needed interventions completed. 2. Return patient to optimal level of self-care post discharge. 3. Spectrograph Operator will follow for Discharge Planning - interventions as needed 4. Anticipated level of care at discharge 5. Planned Discharge Disposition SONALI Brothers, RN wall taper helper [phone] documented in this encounter Plan of Treatment [...] stairs Contact your local community or senior mckinnon for information on exercise, fall prevention programs, or options for improving home safety. documented as of this encounter Visit Diagnoses Not on filedocumented in this encounter Care Teams Breadman Relationship Specialty Start Date End Date Tom Paz MD PCP - General 09/09/16 Tab Taylor MD [address] [place] [address] Consulting Physician Cardiology 01/03/20 Favian Caceres MD [address] [place] [address] Consulting Physician Rheumatology 08/28/23 documented as of this encounter
--- OUTSIDE RECORDS SUMMARY | 2024-10-04 09:34 | XMS_ITS | Continuity of Care Document ---
Author Organization [facility] Address [address] [address] [place] [address] Phone Care Team Providers Care Media Relations Coordinator Name Role Phone Nayely MAURICIO OD, Denise [...] EST REFRACTION Medicare OFFICE/OUTPATIENT VISIT, EST REFRACTION [facility] OFFICE/OUTPATIENT VISIT, EST OFFICE/OUTPATIENT VISIT, EST REFRACTION [facility] OFFICE/OUTPATIENT VISIT, EST REFRACTION [...] TIENT VISIT, EST [facility], [address] [place] [address], [id number], tel:[phone] OPH CONSULT [facility] flash of light OS (chief complaint) Age-related nuclear cataract, bilateralTea r film insufficienc y of bilateral lacrimal glandsOther vitreous opacities, bilateral Feb-0 - 5 Derheimer OD Denise. [address], [address], [place], [place], [id number], [place]. tel:[phone] Referring Provider: Tom Sapp, [address], [place], [address]. tel:[phone] OFFICE/OUTPA TIENT VISIT, EST [facility], [address] [place] [address], [place], [place], [id number], tel:[phone] [facility] Pain OS (chief complaint) Left eye painAge-rela jaden nuclear cataract, bilateralOth er vitreous opacities, bilateralTea r film insufficienc y of bilateral lacrimal glands Apr-0 - 4 Krishnasamy Anthony. [address], [address], [place], [place], [id number], [place]. tel:[phone] Referring Provider: Tom Sapp, [address], [place], [address]. tel:[phone] OFFICE/OUTPA TIENT VISIT, EST [facility], [address] [place] [address], [place], [place], [id number], [place] tel:[phone] OPH CONS[facility] blurry vision (chief complaint) Age-related nuclear cataract, bilateralTea r film insufficienc y of bilateral lacrimal glandsOther vitreous opacities, bilateralDip lopiaHyperme tropia, bilateral Oct-2 -202 3 Krishnasamy Anthony. [address], [address], [place], [place], [id number], . tel:[phone] Referring Provider: Tom Sapp, [address], [place], [address]. tel:[phone] OFFICE/OUTPA TIENT VISIT, EST [facility], [address] [place] [address], [id number], tel:[phone] OPH CONSULT [facility] blurry [place] (chief complaint) Tear film insufficienc y of bilateral lacrimal glandsOther vitreous opacities, bilateralAge -related nuclear cataract, bilateralDip lopiaHyperme tropia, bilateral Mar-1 0-202 2 Krishnasamy Anthony. [address] , [address], [place], [place], [id number], [place]. tel:[phone] Referring Provider: Tom Sapp, [address], [place], [address]. tel:[phone] OFFICE/OUTPA TIENT VISIT, EST [facility], [address] [place] [address], [id number], [place] tel:[phone] OPH CONSULT [facility] shingles (chief complaint) Herpes zoster without complication Tear film insufficienc y of bilateral lacrimal glands Apr- 1 Krishnasamy Anthony. [address] , [address], [place], [place], [id number], [place]. tel:[phone] Referring Provider: Tom Sapp, [address], [place], [address]. tel:[phone] OFFICE/OUTPA TIENT VISIT, EST [facility], [address] [place] [address], [id number], [place] tel:[phone] OPH CONSULT [facility] blurry (chief complaint) DiplopiaAge- related nuclear cataract, bilateralTea r film insufficienc y of bilateral lacrimal glandsOther vitreous opacities, bilateralHyp ermetropia, bilateral Nov- 9 Krishnasamy Anthony. [address], [address], [id number], . tel:[phone] Referring Provider: Anthony Gutierrez [address], [place], [place], [id number]. tel:[phone] OFFICE/OUTPA TIENT VISIT, EST [facility], [address] [place] [address], [id number], tel:[phone] OPH CONSULT [facility] blurry vision (chief complaint) Tear film insufficienc y of bilateral lacrimal glandsOther vitreous opacities, bilateralDip lopiaHyperme tropia of both eyes Oct-3 0 8 Brenda Cruz. [address], [place], [place], [id number], . tel:[phone] Referring Provider: Anthony Gutierrez [address] [place] [address], [id number]. tel:[phone] OFFICE/OUTPA TIENT VISIT, EST [facility], [address] [place] [address], [id number], [place] tel:[phone] OPH CONSULT [facility] blurry vision (chief complaint)dr y eyes (chief complaint) DiplopiaOthe r vitreous opacities, bilateralTea r film insufficienc y of bilateral lacrimal glandsHyperm etropia of both eyes 7 Brenda Cruz. [address], [address], [id number], [place]. tel:[phone] Referring Provider: Anthony Gutierrez, [address], [id number]. tel:[phone] OFFICE/OUTPA TIENT VISIT, EST [facility], [address] [place] [address], [id number], [place] tel:[phone] OPH CON[facility] blurry vision (chief complaint) Reflex sympathetic dystrophy, unspecifiedT ear film insufficienc y, unspecifiedH ypermetropia of both eyesOther vitreous opacities, bilateralDip lopia Oct-0 5 6 Krishnasnina Garyhil. [address], [place], [place], [id number], [place]. tel:[phone] Referring Provider: Anthony Gutierrez, [address] [place] [address], [id number]. tel:[phone] OFFICE/OUTPA TIENT VISIT, NEW [facility], [address] [place] [address], [id number], [place] tel:[phone] Oph Consult [facility] Office blurry vision (chief complaint) Hypermetropi aTear film insufficienc y, unspecifiedO ther vitreous opacitiesDip lopiaReflex sympathetic dystrophy, unspecified Sep-2 5 Krishnasnina Anthony. [address], [id number], [place]. tel:[phone] Referring Provider: Anthony Gutierrez, [address] [place] [address], [id number]. tel:[phone] OFFICE/OUTPA TIENT VISIT, EST [facility], [address] [place] [address], [id number], [place] tel:[phone] Oph Consult [facility] Office pain (chief complaint)bl urry vision (chief complaint)ir ritation (chief complaint) Tear film insufficienc y, unspecifiedR eflex sympathetic dystrophy, unspecifiedO ther vitreous opacitiesHyp ermetropiaDi plopia Aug-0 4 Krishnasamy Anthony. [address], [address], [id number], [place]. tel:[phone] Referring Provider: Anthony Gutierrez, [address], [id number]. tel:[phone] OFFICE/OUTPA TIENT VISIT, EST [facility], [address] [place] [address], [id number], [place] tel:[phone] Oph Consult [facility] flashes at night (chief complaint) Other vitreous opacitiesTea r film insufficienc y, unspecifiedD iplopiaHyper metropia Sep- 3 Krishnasamy Anthony. [address], [place], [place], [id number], [place]. tel:[phone] Referring Provider: Anthony Gutierrez, [address], [place], [place], [id number]. tel:[phone] OFFICE/OUTPA TIENT VISIT, EST [facility], [address] [place] [address], [id number], [place] tel:[phone] OPH CONSULT [facility] double va occasionally (chief complaint) Tear film insufficienc y, unspecifiedR eflex sympathetic dystrophy, unspecifiedD iplopiaHyper metropia Mar-2 3 Krishmargaret Anthony. [address], [place], [place], [address], [place]. tel:[phone] Referring Provider: Anthony Gutierrez, [address], [place], [place], [id number]. tel:[phone] OFFICE/OUTPA TIENT VISIT, EST [facility], [address] [place] [address], [id number], [place] tel:[phone] OPH CONSULT [facility] blurry vision (chief complaint) Tear film insufficienc y, unspecifiedD iplopia Sep-2 2 Krishnasamy Anthony. [address], [id number], [place]. tel:[phone] Referring Provider: Anthony Gutierrez, [address], [id number]. tel:[phone] OFFICE/OUTPA TIENT VISIT, NEW [facility], [address] [place] [address], [place], [place], [id number], [place] tel:[phone] OPH CONSULT [facility] lost glasses (chief complaint) DiplopiaHead acheHypermet ropia 1 Brenda Cruz. [address], [place], [place], [id number], [place]. tel:[phone] Family History Family Member Type Diagnosis Age At Onset Son Problem (finding) Lazy eye Payers Payer name Insurance type Covered green party ID Authoriza tion(s) [place]IC[place] MB [id number] [place] [id number] Social History Type Description Quantity Date Captured [...] D&N. Pt saw Dr Nai Sotelo at [facility] for prism. Pt did not [...] to Left eye pain Impression/Plan Related to Tear film insufficiency of bilateral lacrimal glands Impression/Plan Related to Other vitreous opacities, bilateral Impression/Plan Related to Age-r elated nuclear cataract, bilateral Oct- Impression/Plan Related to Hyper metropia, bilateral Oct Impression/Plan Related to Diplo tierra Impression/Plan Related [...] elated nuclear cataract, bilateral Impression/Plan Related to Other vitreous opacities, bilateral Impression/Plan Related to Hyper metropia, bilateral Impression/Plan Related to Tear film insufficiency of bilateral lacrimal glands Impression/Plan Related to Other vitreous opacities, bilateral Impression/Plan Related to Tear film insufficiency of bilateral lacrimal glands Impression/Plan Related to Hyper metropia of both eyes Impression/Plan Related to Diplo tierra Impression/Plan - Up dated Mrx with PrismRTO [...] does not include the prism. Check with [facility] orthoptics regarding prism OU Related to Hypermetropia [...] up with Dr Pugh Related to Hypermetropia - Return in 1 year f or Complete Exam, with Anthony Gutierrez MD Related to Headaches Diplopia, - resolved w/ prisms R elated to Diplopia Dry Eye Syndrome, OU - mild - Discussed diagnosis in detail with patient. Patient instructed to use artificial tears as needed. 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 Patient will see Ms. Oscar Richardson (loss prevention coordinator) @ [facility] for prisms/glasses. Related to Headaches [...] 082. Patient will see Ms. Oscar Richardson (loss prevention coordinator) @ [facility] 12/24/2010 for motility exam and [...]
--- OUTSIDE RECORDS SUMMARY | 2024-10-04 09:34 | XMS_ITS | Referral Summary ---
Author Organization [facility] Address [address] [place] [address] Care Team Providers Care Casting Finisher Name Role Phone Tom Paz MD Primary Care Provider [phone] Tab Taylor MD Unavailable [phone] Favian Caceres MD Unavailable Encounters Date Type Department Care Team Description 09/02/[address] [place] [address] Va Maharaj Request Call Back 08/25/2024 7:24 AM CONFERENCE PLANNING MANAGER - 08/25/2024 11:59 PM CONFERENCE PLANNING MANAGER Hospital Encounter [facility] Radiology [address] [place] [address] Transient ischemic attack (TIA); Cerebrovascular disease, unspecified; Unspecified visual loss; Presence of cardiac pacemaker Discharge Disposition: Discharge to home or self care 08/25/2024 Orders Only [facility] Radiology [address] [place] [address] Katarzyna Gil RT 08/23/2024 12:12 PM CONFERENCE PLANNING MANAGER - 08/23/2024 11:59 PM CONFERENCE PLANNING MANAGER Hospital Encounter [facility] Radiology [facility] [address] [place] [address] Pacemaker reprogramming/check ; Complete heart block (HCC) Discharge Disposition: Discharge to home or self care 08/23/2024 11:30 AM CONFERENCE PLANNING MANAGER Office Visit [facility] Cardiology [address] 8th [place] [address] [place] [address] Elise Ibarra NP Pacemaker reprogramming/check (Primary Dx); Complete heart block (HCC) 08/23/2024 11:00 AM CONFERENCE PLANNING MANAGER Ancillary Procedure [facility] Cardiology [address] [place] [address] 8th [place] [address] Pacemaker reprogramming/check 08/23/2024 Orders Only [facility] Cardiology [address] [place] [address] 8th [place] [address] [place] [address] Elise Ibarra NP Pacemaker reprogramming/check (Primary Dx) 08/02/2024 12:30 PM CONFERENCE PLANNING MANAGER - 08/02/2024 1:30 PM CONFERENCE PLANNING MANAGER Surgery [address] [address] Trey Arroyo MD COLON BIOPSY 08/02/2024 1:07 PM CONFERENCE PLANNING MANAGER Anesthesia Event [address] [address] Rui Fuller MD McGowan, Jessica Lynn, NP 08/02/2024 11:02 AM CONFERENCE PLANNING MANAGER - 08/02/2024 3:29 PM CONFERENCE PLANNING MANAGER Hospital Encounter [address] [address] Trey Arroyo MD Dysphagia, unspecified type; Dyspepsia; Diarrhea, unspecified type Discharge Disposition: Discharge to home or self care 07/28/2024 10:30 AM CONFERENCE PLANNING MANAGER Office Visit [facility] [address] [place] [address] Claudia Cristobal PA Seronegative rheumatoid arthritis (HCC) (Primary Dx); Encounter for long-term (current) use of high-risk medication 07/26/2024 Telephone [facility] [address] [place] [address] Sarina Posey RN GI PROCEDURE 7 DAY PRE CALL 07/26/2024 Orders Only [facility] Health Information Management [address] [place] [address] Scanning, Provider 07/14/2024 10:30 AM CONFERENCE PLANNING MANAGER Pre-Admission Testing [facility] Center for Preoperative Assessment and Planning [facility] ([facility]) [address] [place] [address] from Last 3 Months Allergies Active Allergy [...] - blisters Etanercept Itching Low 02/24/2022 Gum [place] Unknown 05/12/2023 Gum Xtvqab-Zctlrx-Edxt-Alcoho l Blisters,Rash High 12/17/2021 Mastisol - blisters [...] 02/07/2021 Assessment & Plan (07/28/2024 11:19 AM CONFERENCE PLANNING MANAGER): Monitor routine labs while on immunosuppressive [...] [employer] Assessment & Plan (09/22/2023 12:26 PM CONFERENCE PLANNING MANAGER): Monitor routine labs while on immunosuppressive [...] [employer] Assessment & Plan (09/11/2022 12:48 PM CONFERENCE PLANNING MANAGER): Monitor routine labs while on immunosuppressive medications. Recent 08/20 labs stable. 06/2020: Neg Hep B/C 03/2021: Neg QuantGold Assessment & Plan (07/01/2022 9:25 AM CONFERENCE PLANNING MANAGER): Monitor routine labs while on immunosuppressive [...] QuantGold Assessment & Plan (08/19/2021 2:31 PM CONFERENCE PLANNING MANAGER): Monitor routine labs while on immunosuppressive [...] Hospitalized for total of 8 days, at [facility] and then [facility]. Had CT brain/neck angio that were unremarkable. [...] Hospitalized for total of 8 days, at [facility] and then [facility]. Had CT brain/neck angio that were unremarkable. [...] 07/24/2020 Assessment & Plan (07/24/2020 12:34 PM CONFERENCE PLANNING MANAGER): Her greatest pain complaint at this [...] 07/24/2020 Assessment & Plan (07/01/2022 2:12 PM CONFERENCE PLANNING MANAGER): Self weaned off Cymbalta 2 days [...] exercise. Assessment & Plan (08/27/2020 2:41 PM CONFERENCE PLANNING MANAGER): Fatigue with sensation of pain all [...] exercise. Assessment & Plan (07/24/2020 12:36 PM CONFERENCE PLANNING MANAGER): Fatigue with sensation of pain all [...] PT. Assessment & Plan (08/28/2020 12:26 PM CONFERENCE PLANNING MANAGER): Multifocal OA (hands and hips) per recent xrays. Continue Tylenol 500 mg qid. Continue PT. Assessment & Plan (07/24/2020 12:41 PM CONFERENCE PLANNING MANAGER): Multifocal OA (hands and hips) per [...] thickening. Assessment & Plan (07/28/2024 11:22 AM CONFERENCE PLANNING MANAGER): Off MTX (oral ulcers/hair thinning). Remains [...] increase blood glucose, glaucoma and osteopenia with superintendent terminal use of steroids. She was strongly encouraged [...] needed. Assessment & Plan (09/22/2023 12:32 PM CONFERENCE PLANNING MANAGER): A 09/2022 repeat left hand/wrist US [...] needed. Assessment & Plan (09/11/2022 12:48 PM CONFERENCE PLANNING MANAGER): Continued 15mg MTX weekly and monthly [...] Chan. Assessment & Plan (08/06/2022 9:00 PM CONFERENCE PLANNING MANAGER): Has continued 15mg MTX weekly as [...] we have no access to them through [employer]. She already had an OV scheduled for 09/02 - will re-evaluate joints at that time and consider repeat hand US if synovitis is absent/minimal on exam but she is still noting pain -to evaluate for underlying inflammation. She may require change in biologic medication. Assessment & Plan (07/01/2022 2:09 PM CONFERENCE PLANNING MANAGER): CDAI 37, high Off Enbrel due [...] She is to follow up with her vinyl welder and fabricator soon due to low BP following her [...] increase blood glucose, glaucoma and osteopenia with superintendent terminal use of steroids. Continue 15mg MTX weekly [...] Chan. Assessment & Plan (08/19/2021 9:00 PM CONFERENCE PLANNING MANAGER): CDAI 25. On 15mg MTX weekly but has only taken 3 Enbrel injections so far. Just completed a medrol dose pack from her vinyl welder and fabricator due to inflammation around her heart (pericarditis?). [...] incontinence. Has followed up with PCP and vinyl welder and fabricator - started Ubrelvy for JACKSON and vinyl welder and fabricator is to adjust her pacemaker on 05/23. [...] pen with her during her trip to [place] (leaves and returns around the ). A letter was provided for [facility] to allow Humira to be brought as a carry on. She may call [facility] to schedule injection with a nurse ambassador [...] needed. Assessment & Plan (08/28/2020 12:26 PM CONFERENCE PLANNING MANAGER): Our workup showed an JANNET 1:160 [...] needed. Assessment & Plan (07/24/2020 12:33 PM CONFERENCE PLANNING MANAGER): 54yoF referred for evaluation due to [...] reassess. Assessment & Plan (07/06/2020 4:49 PM CONFERENCE PLANNING MANAGER): 54yoF referred for evaluation due to [...] (12/13/2019): Added automatically from request for surgery [id number] SVT (supraventricular tachycardia) 12/13/2019 Overview (12/13/2019): Added automatically from request for surgery [id number] A-fib 11/24/2019 Overview (11/24/2019): Added automatically from request for surgery [id number] Laryngopharyngeal reflux (LPR) 08/04/2018 Assessment & Plan (10/20/2018 12:26 PM CDT): No longer taking the omeprazole and ranitidine as prescribed. Patient is no longer experiencing any coughing, sinonasal or throat symptoms. Assessment & Plan (08/04/2018 1:17 PM CONFERENCE PLANNING MANAGER): Add omeprazole 40 mg Q morning [...] resume. Assessment & Plan (08/04/2018 1:11 PM CONFERENCE PLANNING MANAGER): Patient's chronic cough is most likely [...] reactive airway disease contributing to her cough. manager intermediate current use of anticoagulant therapy 1 08/28/2014 [...] often do you attend chur ch or christian services? More than 4 times per year [...] any time in the past 12 [facility], were you homeless or living in [...] on file Legal Sex Female 12:21 AM CONFERENCE PLANNING MANAGER Gender Identity Not on file Sexual Orientation Not on file Last Filed Vital Signs Vital Sign Reading Time Taken Comments Blood Pressure 125/71 08/25/2024 8:38 AM CONFERENCE PLANNING MANAGER Pulse 73 08/25/2024 8:38 AM CONFERENCE PLANNING MANAGER Temperature 36 C (96.8 F) 08/02/2024 2:20 PM CONFERENCE PLANNING MANAGER Respiratory Rate 10 08/02/2024 2:40 PM CONFERENCE PLANNING MANAGER Oxygen Saturation 97% 08/25/2024 8:38 AM CONFERENCE PLANNING MANAGER Inhaled Oxygen Concentration - - Weight 88.6 kg (195 lb 6.4 oz) 08/23/2024 11:23 AM CONFERENCE PLANNING MANAGER Height 172.7 cm (5' 8 ) 08/23/2024 11:23 AM CONFERENCE PLANNING MANAGER Body Mass Index 29.71 08/23/2024 11:23 AM CONFERENCE PLANNING MANAGER Plan of Treatment Not on file Goals [...] on stairs Contact your local community or metropolitan state hospital for information on exercise, fall prevention programs, or options for improving home safety. Medical Devices Implanted Type Area Clearing Distribution Clerk Device Identifier Shelf Expiration Date Model / Serial / Lot Ivc Filter- 7 Implanted:Qty: 1 on 06/09/2007 by Tam Fraser MD IVC Filter N/A: Vena Cava Lead-Spinal Cord Stimulator- 018 Implanted:2017 by Taran Ramirez MD (Quantity not on file) Lead Back [employer] SC-2158- 50 / / Biotronik Ra Lead ([id number])- 019 Implanted:2018 (Quantity not on file) Lead Chest Biotronik SOLIA S 45 [id number] / [id number] / Lead (Rv)-05/23/2021 Implanted:2020 (Quantity not on file) Lead Heart Biotronik SOLIA S 53 377 177 / [id number] / Biotronik Paceomaker Ariana Kaur-12/24/2023 Implanted:2023 (Quantity not on file) Pacemaker Chest Wall Biotronik [id number] / [id number] / Spinal Cord Stimulator- 018 Implanted:Qty: 1 on 08/20/2017 by Taran Ramirez MD Spinal Cord Stimulator N/A: Back [employer] SC-1200 / [id number] / Spinal Cord Stimulator Lead-08/20/2017 Implanted:2017 by Taran Ramirez MD (Quantity not on file) Spinal Cord Stimulator Back [employer] Neuro- [id number] / / Hardware Thoracic-L umbar Spine Loop Recorder Chest Wall Chris Vascular System Closure Repair Femoral Artery Suture Mediated Perclose Prostyle 59758-89 - [id number] Implanted:Qty: 1 on 02/09/2024 by Morgan Roy MD at [facility] Vascular 11/16/2025 [id number] / / [id number] [place] [facility] Percutaneous Transcatheter Amplatzer Amulet 18mm [id number] - [id number] Implanted:Qty: 1 on 02/09/2024 by Morgan Roy MD at [facility] 09/17/2027 9-[id number] 07-018 / / [id number] Chris Vascular System Closure Repair Femoral Artery Suture Mediated Perclose Prostyle 62686-10 - [id number] Implanted:Qty: 1 on 02/09/2024 by Morgan Roy MD at [facility] 11/16/2025 [id number] / / [id number] [employer] Sling Urinary Incontinence Female Stress Short Desara Blue Sis-Ds01bs - [id number] Implanted:Qty: 1 on 06/28/2024 by Shankar Mak MD at [facility] N/A: Urethra [employer] 01/04/2027 SIS-DS01 BS / / [id number] Explanted Type Area Clearing Distribution Clerk Device Identifier Shelf Expiration Date Model / Serial / Lot Biotronik Rv Lead ([id number])-07/04 Implanted:Qty: 1 on 07/04/2019 Explanted:Qty: 1 Lead Chest Biotronik [id number] / / Description:This lead was re placed and left behind per patient on 05/23/21 Biotronik Pacemaker ([id number])-07/04 Implanted:Qty: 1 on 07/04/2019 Explanted:Qty: 1 on 12/24/2023 Pacemaker Left: Chest Biotronik ELMOIZ CARBAJAL / [id number] / [id number] Procedures Procedure Name Priority Date/Time Associated Diagnosis Comments XR SPINE THORACOLUMBAR JUNCT ION 2 OR MORE VIEWS Schedule Routine, Read Routine (OP Routine) 08/25/2024 7:35 AM CONFERENCE PLANNING MANAGER Transient ischemic attack (TIA) Cerebrovascular disease, unspecified Unspecified visual loss Presence of cardiac pacemaker XR CHEST PA LATERAL 2 VIEWS Schedule RY, Read RY (Appt Today, Awaiting Results) 08/23/2024 12:16 PM CONFERENCE PLANNING MANAGER Pacemaker reprogramming/c heck Complete heart block (HCC) DEVICE CHECK - IN OFFICE Routine 025 10:57 AM CONFERENCE PLANNING MANAGER Pacemaker reprogramming/c heck COLONOSCOPY 08/02/2024 1:43 PM CONFERENCE PLANNING MANAGER SURGICAL PATHOLOGY Routine 08/02/2024 1:26 PM CONFERENCE PLANNING MANAGER Dysphagia, unspecified type Dyspepsia Diarrhea, unspecified type EGD 08/02/2024 1:15 PM CONFERENCE PLANNING MANAGER ESOPHAGOGASTRODUODENOSCOPY BIOPSY 08/02/2024 1:12 PM CONFERENCE PLANNING MANAGER Dysphagia, unspecified type Dyspepsia Diarrhea, unspecified type COLON BIOPSY 08/02/2024 1:12 PM CONFERENCE PLANNING MANAGER Dysphagia, unspecified type Dyspepsia Diarrhea, unspecified type SCAN - OTHER ORDERS 07/26/2024 HEPATITIS C ANTIBODY Routine 07/06/2020 2:58 PM CONFERENCE PLANNING MANAGER Polyarthralgia Encounter for screening for other viral diseases from Last 3 Months or Most Recently Relevant to Health Maintenance Results * XR Spine Thoracolumbar Junction 2 or More Views (08/25/2024 7:35 AM CONFERENCE PLANNING MANAGER) Anatomical Region Laterality Modality Spine N/A Computed Radiogr aphy 08/25/2024 7:45 AM CONFERENCE PLANNING MANAGER Impressions 08/25/2024 7:45 AM CONFERENCE PLANNING MANAGER 1. Thoracic stimulator device in place [...] Nehemias Simons D.O. Narrative 08/25/2024 7:45 AM CONFERENCE PLANNING MANAGER EXAMINATION: XR SPINE THORACOLUMBAR JUNCTION 2 [...] Pa Lateral 2 Views (08/23/2024 12:16 PM CONFERENCE PLANNING MANAGER) Anatomical Region Laterality Modality Body, Chest N/A Computed Radiogr aphy 08/23/2024 2:08 PM CONFERENCE PLANNING MANAGER Impressions 08/23/2024 4:13 PM CONFERENCE PLANNING MANAGER FINDINGS/IMPRESSION: Left subclavian approach pacemaker with [...] Arpit Mcclelland M.D. Narrative 08/23/2024 4:13 PM CONFERENCE PLANNING MANAGER EXAMINATION: XR CHEST PA LATERAL 2 [...] CHECK - IN OFFICE (08/23/2024 10:57 AM CONFERENCE PLANNING MANAGER) Anatomical Region Laterality Modality Other 08/23/2024 2:00 AM CONFERENCE PLANNING MANAGER Narrative 08/27/2024 9:33 PM CONFERENCE PLANNING MANAGER Interpretation Summary: Battery and Leads (BL) Normal parameters noted on battery and lead(s) --- Estimate 10 years to TEREZA Procedure Note Leonardo Grimm MD - 08/27/2024 Interpretation Summary: Battery and Leads (BL) Normal parameters noted on battery and lead(s) --- Estimate 10 years toERI us Elise Ibarra NP [facility] PROCE DURES Final Result * Colonoscopy (08/02/2024 1:43 PM CONFERENCE PLANNING MANAGER) Anatomical Region Laterality Modality Other Narrative Procedure Note Trey Arroyo MD - 08/02/2024 1:43 PM CST GI ENDOSCOPY [facility] Patient Name: Naye Cantu Procedure Date: 08/02/2024 1:43 PM Date of : 1965 Admit Type: Outpatient Age: 58 Gender: Female Attending MD: Trey Arroyo M.D. Room: [facility] ENDOSCOPY ROOM 8 Note Status: Finalized [...] The scope was passed under direct vision.The [id number] endoscope was introduced through the anus and advanced to the terminal ileum. The colonoscopy was performed without difficulty. The patient tolerated the procedure well. The qualityof the bowel preparation was evaluated using the BBPS ([place] Bowel Preparation Scale) with scores of:Right Colon [...] business hours - Please call theNurse Coordinator: [phone] After hours, evening, nights, weekends and holidays- Please call the hospital service operator at and ask for the GI fellow bath solution maker. Attending Participation: I was present and participated during the entire procedure, including non-patrick portions. Electronically signed by Trey Arroyo MD Trey Arroyo M.D. 08/02/2024 2:08:56 PM . Number of Addenda: 0 Note Initiated On: 08/02/2024 1:43 PM Trey Arroyo MD ENDOSCOPY PROCEDURES Final Result * Surgical pathology (08/02/2024 1:26 PM CONFERENCE PLANNING MANAGER) Tissue (Duodenum, Biopsy) 08/02/2024 1:26 PM CONFERENCE PLANNING MANAGER Tissue (Gastric/Stomach biopsy) 08/02/2024 1:29 PM CONFERENCE PLANNING MANAGER Tissue (Esophageal biopsy) 08/02/2024 1:38 PM CONFERENCE PLANNING MANAGER Tissue (Colon, Biopsy) 08/02/2024 2:02 PM CONFERENCE PLANNING MANAGER Narrative PATHOLOGY [facility] - 08/05/2024 10:16 AM CONFERENCE PLANNING MANAGER EPIC results best viewed via link to PDF [facility] [place] [address] Note to Patients: This report may contain [...] Gender: F : 1965 (Age: 58) Address: [address] [place], [place] [address] [facility] #: [id number] Taken:08/02/2024 Received:08/02/2024 Reported: 08/05/2024 Patient Type: [facility] Service: Gastroenterology Location: Physician(s): Pb Steward M.D. [...] Surgical Pathology and Flow Cytometry Departments at [facility] as part of an ongoing quality improvement analyst program and in compliance with federally mandated [...] Surgical Pathology and Flow Cytometry Departments of [facility]. It has not been cleared or approved by the U. S. Food and Drug Administration. IMAGES AND SCANNED DOCUMENTS, IF INCLUDED, ONLY VIEWABLE IN PDF VERSION OF REPORT us Trey Arroyo MD LAB PATHOLOGY ORDERAB LES Final Result PATHOLOGY [facility] 3rd Floor [place], [place] [phone] * EGD (08/02/2024 1:15 PM CONFERENCE PLANNING MANAGER) Anatomical Region Laterality Modality Other Narrative Procedure Note Trey Arroyo MD - 08/02/2024 1:15 PM CST [facility] ENDOSCOPY [facility] Patient Name: Naye Cantu Procedure Date: 08/02/2024 1:15 PM Date of : 1965 Admit Type: Outpatient Age: 58 Gender: Female Attending MD: Trey Arroyo M.D. Room: [facility] ENDOSCOPY ROOM 8 Note Status: Addendum [...] passed under direct vision. The GIF [id number] endoscope was introducedthrough the mouth, and advanced [...] During normal business hours - Please call [facility] Coordinator: [phone] After hours, evening, nights, weekends and holidays- Please call the hospital service operator at and ask for the GI fellow bath solution maker. Attending Participation: I personally performed the entire [...] CELINA. Electronically signed by Trey Arroyo MD rTey Arroyo M.D. 08/09/2024 4:08:41 PM . Trey Arroyo MD ENDOSCOPY PROCEDURES Edited Result - Final * SCAN - OTHER ORDERS (07/26/2024) Provider Scanning Final Result * Hepatitis C antibody (07/06/2020 2:58 PM CONFERENCE PLANNING MANAGER) Hep C Ab NON-REACTI VE NON-REACT GIA [facility] SIGNAL TO CUT-OFF 0.02 <1.00 [facility] Comment: HCV antibody was non-reactive. There is no laboratory evidence of HCV infection. In most cases, no further action is required. However, if recent HCV exposure is suspected, a test for HCV RNA (test code 99512) is suggested. For additional information please refer to http://education.DrinkSendo/faq/YXU49j4 (This link is being provided for informational/ educational purposes only.) Blood specimen (specimen) 07/06/2020 2:58 PM CONFERENCE PLANNING MANAGER 07/06/2020 3:00 PM CONFERENCE PLANNING MANAGER Narrative [facility] - 07/11/2020 9:33 PM CONFERENCE PLANNING MANAGER PATIENT UNABLE TO VOID; ADVISED TO RETURN FOR COLLECTION. Olga MONTES LAB MICROBIOLOGY - GENERA L ORDERABLES Final Result [facility] [address] [place] [address] from Last 3 Months or Most Recently Relevant to Health Maintenance Insurance , [address] [place] [address] MEDICARE [facility] MEDICARE [facility] PLAN MEDICARE MEDICARE IDPA Advance Directives For more information, please contact: [phone] * Full Code (Latest Code Status on [...] 6:47 AM 04/25/2020 10:09 PM Care Teams Casting Finisher Relationship Specialty Start Date End Date Tom Paz MD PCP - General 09/09/16 Tab Taylor MD [address] [place] [address] Consulting Physician Cardiology 01/03/20 Favian Caceres MD [facility] [place] [place] [address] Consulting Physician Rheumatology 08/28/23
--- OUTSIDE RECORDS SUMMARY | 2024-10-04 09:34 | XMS_ITS | Patient Health Record ---
Author Organization [facility] Orthopedics [facility] Address [address] [place], [place] [address] Care Team Providers Care Rouge Sifter Name Role Phone Jackson BRYANT, Tom Primary Care Provider [phone] Cecilia Nicole Unavailable [phone] ALLERGIES Allergen (clinical drug ingredient) Drug/Non Drug [...] Allergy Active Biaxin Unknown Drug Allergy Active REASON FOR REFERRAL No Information MEDICATIONS Medication [...] osteoarthritis of right knee (M17.11) Active confirmed [id number] Problem Closed nondisplaced fracture of acromial end of left clavicle, initial encounter (S42.035A) Active confirmed 0924188 Problem Closed nondisplaced fracture of acromial end of left clavicle with routine healing, subsequent encounter (S42.035D) Active confirmed 5835604 Problem Right hip pain (M25.551) Active confirmed Right hip pain (222312674107998) Problem Left hip pain (M25.552) Active confirmed Arthralgia of t he pelvic region and thigh (387647368) Problem Primary localized osteoarthritis of right knee (M17.11) Active confirmed Primary osteoarthritis (243356400) Problem Pes anserine bursitis (M70.50) Active confirmed 052759356 PLAN OF TREATMENT Pending Test Test Name Order Date X ray : Hip, left, 2 02/24/2018 X ray : Hip, right, 2 02/24/2018 X ray : Knee, right 3 views 11/30/2017 Insurance Providers Payer Name Payer Address Payer Phone Subscriber Number Group Number Insured Name Patient Relationship to Insured Coverage Start Date Coverage End Date Medicare Services [address] [address] [place] [address] [id number] Naye Hart Self - patient is the insured 0 Medicaid [address] [place] [address] [id number] Naye Hart Self - patient is the [...]
--- OUTSIDE RECORDS SUMMARY | 2024-10-04 09:34 | XMS_ITS | Patient Health Record ---
Author Organization [facility] Address [address] [place] [address] Care Team Providers Care Opener Name Role Phone Luis Newsome Primary Care Provider [phone] Allergies Allergen (clinical drug ingredient) Drug/Non Drug [...] Risk Notes Problem Fear of medical treatment (090019722) Fear of injections and transfusions (F40.231) Active confirmed Problem Localized, primary osteoarthritis of the pelvic region and thigh (073250371) Unilateral primary osteoarthritis, 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) Active confirmed Problem Localized, primary osteoarthritis of the pelvic region and thigh (265785114) Unilateral primary osteoarthritis, left hip (M16.12) Active confirmed Problem Solitary sacroiliitis (117892218) Sacroiliitis, not elsewhere classified (M46.1) Active confirmed Problem Cervical radiculopathy (88546485) Radiculopathy, cervical region (M54.12) Active confirmed Problem Cervical radiculopathy (07075952) Radiculopathy, cervicothoracic region (M54.13) Active confirmed Problem Lumbosacral radiculopathy (8861911) Radiculopathy, lumbosacral region (M54.17) Active confirmed Plan Of Treatment No Information Insurance Providers Payer Name Payer Address Payer Phone Subscriber Number Group Number Insured Name Patient Relationship to Insured Coverage Start Date Coverage End Date MEDICARE SERVICES [address] [address] [place] [address] [id number] Naye Hart Self - patient is the insured 0 IPA [address] [address] [place] [address] [id number] Naye Hart Self - patient [...]
--- OUTSIDE RECORDS SUMMARY | 2024-10-04 09:34 | XMS_ITS | Clinical Summary ---
Author Organization [facility] Address [address] [place] [address] Care Team Providers Care Chief Technician X Ray Name Role Phone Tom Paz MD Primary Care Provider [phone] Tiago Vargas MD, Hugo P Unavailable [phone] Allergies Active Allergy Reactions Criticality Noted Date [...] on file Legal Sex Female 10:47 AM PATTERNMAKER HAND Gender Identity Not on file Sexual [...] this topic Medical Devices Implanted Type Area Tie Layer Device Identifier Shelf Expiration Date Model / Serial / Lot Ivc Filter Filter Pacemaker Pacemaker BIOTRONIK Spinal Cord Stimulator Implant Stimulator Implant Insurance MEDICARE MEDICAID Care Teams Chief Technician X Ray Relationship Specialty Start Date End Date Tom Paz MD [address] [address] PCP - General 09/29/22 Hugo Ordoñ[place]., [place] [id number] [place] [phone] CARDIOVASCULAR DISEASE 07/15/23
--- OUTSIDE RECORDS SUMMARY | 2024-10-04 09:34 | XMS_ITS | Clinical Summary ---
Author Organization [facility] Address [address] [place] [address] Care Team Providers Care Petroleum Engineer Name Role Phone Tom Paz MD Primary Care Provider [phone] Allergies Active Allergy Reactions Criticality Noted Date [...] blisters Etanercept Swelling Low 12/09/2023 Embrel Gum Stwdei-Cglnmv-Magf-Alcoho l Rash Low 12/09/2023 Mastisol - blisters [...] topic Medical Devices Implanted Type Area Quality Lab Assoc Device Identifier Shelf Expiration Date Model / Serial / Lot Tyrx Antibacterial Envelope Med [id number] - [id number] Implanted:Qty: 1 on 12/24/2023 at [facility] Mesh Left: Chest [employer]- CARD RHYTHM MGMT 10/01/2024 [id number] / / [id number] Neuro Stimulator Neuro Stimulator [employer] SC-1200 / / Description:leads: SC- Need lead numbers Dc Ppm Gen Implanted:Qty: 1 on 12/24/2023 by Burton Forbes MD at [facility] N/A: Chest Wall [id number] / [id number] 90 / Explanted Type Area [facility] Lab Assoc Device Identifier Shelf Expiration Date Model / Serial / Lot Dc Eluna 8 Ppm Gen Explanted:Qty: 1 on 12/24/2023 by Burton Forbes MD at [facility] Pacemaker Chest Wall [employer] ELUNA 8 KRISTY / [id number] / Description:Implant date: Per [employer] Rep - NOT MRI safe (extra cap lead -ABANDONED LEAD - NO MRI -lizandro 08/14/23 Insurance [address] [place] [address] [address] A [address] B [facility] [place] [id number] [place] [address] MEDICARE PART A AND B [address] [place] [address] RX [employer] RX Member Subscriber Plan / Payer (Ef fective 2023-Present) Name:Naye Hart Relation to Subscriber:Self Name:Naye Hart Subscriber ID:Not on file Payer ID:Not on file Group ID:[id number] Type:RX Commercial Address: [address] Advance Directives For more information, please contact: [phone] Documents on File Type Date Recorded Patient Boring Machine Operator Expl anation Advance Directive POA 12/24/2023 8:33 AM Ad valenzuela Directive POA * Full Code (Latest Code Status on File) Date Activated Date Inactivated Comments 12/24/2023 3:32 PM 12/25/2023 12:17 PM Care Teams Petroleum Engineer Relationship Specialty Start Date End Date Tom Paz MD [address] [place] [address] PCP - General Family Practice 01/28/22
--- OUTSIDE RECORDS SUMMARY | 2024-10-04 09:34 | XMS_ITS | Clinical Summary ---
Author Organization [facility] al Address [address] [place] [address] Care Team Providers Care Quality Assurance Director Name Role Phone Tom Paz MD Primary Care Provider [phone] Tab Taylor MD Unavailable [phone] Favian Caceres MD Unavailable [phone] Allergies Active Allergy Reactions Criticality Noted Date [...] - blisters Etanercept Itching Low 02/24/2022 Gum [place] Unknown 05/12/2023 Gum Jlvfvm-Dxcvoz-Jhgg-Alcoho l Blisters,Rash High 12/17/2021 Mastisol - blisters [...] 02/07/2021 Assessment & Plan (07/28/2024 11:19 AM PHOTOCOMPOSING MACHINE OPERATOR): Monitor routine labs while on immunosuppressive medications. [...] QuantGold Assessment & Plan (09/22/2023 12:26 PM PHOTOCOMPOSING MACHINE OPERATOR): Monitor routine labs while on immunosuppressive medications. [...] QuantGold Assessment & Plan (09/11/2022 12:48 PM PHOTOCOMPOSING MACHINE OPERATOR): Monitor routine labs while on immunosuppressive medications. Recent 08/20 labs stable. 06/2020: Neg Hep B/C 03/2021: Neg QuantGold Assessment & Plan (07/01/2022 9:25 AM PHOTOCOMPOSING MACHINE OPERATOR): Monitor routine labs while on immunosuppressive medications. [...] QuantGold Assessment & Plan (08/19/2021 2:31 PM PHOTOCOMPOSING MACHINE OPERATOR): Monitor routine labs while on immunosuppressive medications. [...] Hospitalized for total of 8 days, at [facility] and then [facility]. Had CT brain/neck angio that [...] Hospitalized for total of 8 days, at [facility] and then [facility]. Had CT brain/neck angio that [...] 07/24/2020 Assessment & Plan (07/24/2020 12:34 PM PHOTOCOMPOSING MACHINE OPERATOR): Her greatest pain complaint at this time [...] 07/24/2020 Assessment & Plan (07/01/2022 2:12 PM PHOTOCOMPOSING MACHINE OPERATOR): Self weaned off Cymbalta 2 days ago [...] exercise. Assessment & Plan (08/27/2020 2:41 PM PHOTOCOMPOSING MACHINE OPERATOR): Fatigue with sensation of pain all over [...] exercise. Assessment & Plan (07/24/2020 12:36 PM PHOTOCOMPOSING MACHINE OPERATOR): Fatigue with sensation of pain all over [...] PT. 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 Continue Tylenol 500 mg qid. Continue PT. Assessment & Plan (07/24/2020 12:41 PM PHOTOCOMPOSING MACHINE OPERATOR): Multifocal OA (hands and hips) per recent [...] thickening. Assessment & Plan (07/28/2024 11:22 AM PHOTOCOMPOSING MACHINE OPERATOR): Off MTX (oral ulcers/hair thinning). Remains on [...] needed. Assessment & Plan (09/22/2023 12:32 PM PHOTOCOMPOSING MACHINE OPERATOR): A 09/2022 repeat left hand/wrist US demonstrated [...] needed. Assessment & Plan (09/11/2022 12:48 PM PHOTOCOMPOSING MACHINE OPERATOR): Continued 15mg MTX weekly and monthly Simponi [...] Chan. Assessment & Plan (08/06/2022 9:00 PM PHOTOCOMPOSING MACHINE OPERATOR): Has continued 15mg MTX weekly as well [...] we have no access to them through [employer]. She already had an OV scheduled for 09/02 - will re-evaluate joints at that time and consider repeat hand US if synovitis is absent/minimal on exam but she is still noting pain -to evaluate for underlying inflammation. She may require change in biologic medication. Assessment & Plan (07/01/2022 2:09 PM PHOTOCOMPOSING MACHINE OPERATOR): CDAI 37, high Off Enbrel due to [...] She is to follow up with her pole incisor operator soon due to low BP following her [...] increase blood glucose, glaucoma and osteopenia with intermediate manager use of steroids. Continue 15mg MTX weekly [...] Chan. Assessment & Plan (08/19/2021 9:00 PM PHOTOCOMPOSING MACHINE OPERATOR): CDAI 25. On 15mg MTX weekly but has only taken 3 Enbrel injections so far. Just completed a medrol dose pack from her pole incisor operator due to inflammation around her heart (pericarditis?). [...] incontinence. Has followed up with PCP and pole incisor operator - started Ubrelvy for JACKSON and pole incisor operator is to adjust her pacemaker on 05/23. [...] with her during her trip to [place] (leaves and returns around the ). A letter was provided for [facility] to allow Humira to be brought as a carry on. She may call [facility] to schedule injection with a nurse [...] needed. Assessment & Plan (08/28/2020 12:26 PM PHOTOCOMPOSING MACHINE OPERATOR): Our workup showed an JANNET 1:160 but [...] needed. Assessment & Plan (07/24/2020 12:33 PM PHOTOCOMPOSING MACHINE OPERATOR): 54yoF referred for evaluation due to +JANNET [...] reassess. Assessment & Plan (07/06/2020 4:49 PM PHOTOCOMPOSING MACHINE OPERATOR): 54yoF referred for evaluation due to +JANNET [...] (12/13/2019): Added automatically from request for surgery [id number] SVT (supraventricular tachycardia) 12/13/2019 Overview (12/13/2019): Added automatically from request for surgery [id number] A-fib 11/24/2019 Overview (11/24/2019): Added automatically from request for surgery [id number] Laryngopharyngeal reflux (LPR) 08/04/2018 Assessment & Plan (10/20/2018 12:26 PM CDT): No longer taking the omeprazole and ranitidine as prescribed. Patient is no longer experiencing any coughing, sinonasal or throat symptoms. Assessment & Plan (08/04/2018 1:17 PM PHOTOCOMPOSING MACHINE OPERATOR): Add omeprazole 40 mg Q morning 30 [...] resume. Assessment & Plan (08/04/2018 1:11 PM PHOTOCOMPOSING MACHINE OPERATOR): Patient's chronic cough is most likely secondary [...] reactive airway disease contributing to her cough. senior living current use of anticoagulant therapy 1 08/28/2014 Deep vein thrombosis (DVT) 06/27/2015 Hyperthyroidism 08/31/2012 Chronic adrenal insufficiency 08/30/2012 Encounters Date Type Department Care Team Description 09/02/2024 Telephone [facility] Dermatology [address] [facility] [address] [facility] [address] [place] [address] Va Maharaj Request Call Back 08/25/2024 7:24 AM PHOTOCOMPOSING MACHINE OPERATOR - 08/25/2024 11:59 PM PHOTOCOMPOSING MACHINE OPERATOR Hospital Encounter [facility] Radiology [address] [place] [address] Transient ischemic attack (TIA); Cerebrovascular disease, unspecified; Unspecified visual loss; Presence of cardiac pacemaker Discharge Disposition: Discharge to home or self care 08/25/2024 Orders Only [facility] Radiology [address] [place] [address] Katarzyna Gil, RT 08/23/2024 12:12 PM PHOTOCOMPOSING MACHINE OPERATOR - 08/23/2024 11:59 PM PHOTOCOMPOSING MACHINE OPERATOR Hospital Encounter [facility] Radiology [facility] [address] [place] [address] Pacemaker reprogramming/check ; Complete heart block (HCC) Discharge Disposition: Discharge to home or self care 08/23/2024 11:30 AM PHOTOCOMPOSING MACHINE OPERATOR Office Visit [facility] Cardiology [address] [place] [address] 8th [place] [address] [place] [address] Elise Ibarra NP Pacemaker reprogramming/check (Primary Dx); Complete heart block (HCC) 08/23/2024 11:00 AM PHOTOCOMPOSING MACHINE OPERATOR Ancillary Procedure [facility] Cardiology [address] [place] [address] 8th [place] [address] [place] [address] Pacemaker reprogramming/check 08/23/2024 Orders Only [facility] Cardiology [address] [facility] 8th [place] [address] [place] [address] Elise Ibarra, SONIA Pacemaker reprogramming/check (Primary Dx) 08/02/2024 1:07 PM PHOTOCOMPOSING MACHINE OPERATOR Anesthesia Event [facility]est[facility] [place] [address] [place] [address] Rui Fuller MD McGowan, Jessica Lynn, NP 08/02/2024 12:30 PM PHOTOCOMPOSING MACHINE OPERATOR - 08/02/2024 1:30 PM PHOTOCOMPOSING MACHINE OPERATOR Surgery [address] [address] Trey Arroyo MD COLON BIOPSY 08/02/2024 11:02 AM PHOTOCOMPOSING MACHINE OPERATOR - 08/02/2024 3:29 PM PHOTOCOMPOSING MACHINE OPERATOR Hospital Encounter [address] [address] Trey Arroyo MD Dysphagia, unspecified type; Dyspepsia; Diarrhea, unspecified type Discharge Disposition: Discharge to home or self care 07/28/2024 10:30 AM PHOTOCOMPOSING MACHINE OPERATOR Office Visit [facility] [address] [place] [phone] Claudia Cristobal PA Seronegative rheumatoid arthritis (HCC) (Primary Dx); Encounter for long-term (current) use of high-risk medication 07/26/2024 Telephone [facility] Specialty Services [address] [place] [address] Sarina Posey RN GI PROCEDURE 7 DAY PRE CALL 07/26/2024 Orders Only [facility] Health Information Management [address] [place] [address] Scanning, Provider 07/14/2024 10:30 AM PHOTOCOMPOSING MACHINE OPERATOR Pre-Admission Testing [facility] for Preoperative Assessment and Planning [facility] [address] [place] [address] from Last 3 Months Surgical History Surgery [...] ischemic attack) Osteoporosis 2011 Stroke (HCC) TIA Autoimmune disease 2009 Anemia CHF (congestive heart [...] drink = 0.6 oz pur e alcohol) [facility] Utilities Answer Date Recorded In the past 12 months has [employer], gas, oil, or water [employer] threatened to shut off services in your [...] often do you attend chur ch or samaritan services? More than 4 times per year 02/11/2024 Do you belong to any clubs o r organizations such as scientology groups, unions, fraternal or athletic groups, or [...] any time in the past 12 m [facility], were you homeless or living [...] on file Legal Sex Female 12:21 AM PHOTOCOMPOSING MACHINE OPERATOR Gender Identity Not on file Sexual Orientation Not on file Obstetrics History Last Filed Vital Signs Vital Sign Reading Time Taken Comments Blood Pressure 125/71 08/25/2024 8:38 AM PHOTOCOMPOSING MACHINE OPERATOR Pulse 73 08/25/2024 8:38 AM PHOTOCOMPOSING MACHINE OPERATOR Temperature 36 C (96.8 F) 08/02/2024 2:20 PM PHOTOCOMPOSING MACHINE OPERATOR Respiratory Rate 10 08/02/2024 2:40 PM PHOTOCOMPOSING MACHINE OPERATOR Oxygen Saturation 97% 08/25/2024 8:38 AM PHOTOCOMPOSING MACHINE OPERATOR Inhaled Oxygen Concentration - - Weight 88.6 kg (195 lb 6.4 oz) 08/23/2024 11:23 AM PHOTOCOMPOSING MACHINE OPERATOR Height 172.7 cm (5' 8 ) 08/23/2024 11:23 AM PHOTOCOMPOSING MACHINE OPERATOR Body Mass Index 29.71 08/23/2024 11:23 AM PHOTOCOMPOSING MACHINE OPERATOR Plan of Treatment Health Maintenance Due Date [...] Pain Care Plan Chronic Care Management Hali Dan, RN Note: Problem: Chronic Pain Goals: 1. [...] on stairs Contact your local community or [facility] for information on exercise, fall prevention programs, or options for improving home safety. Medical Devices Implanted Type Area Museum Tour Guide Device Identifier Shelf Expiration Date Model / Serial / Lot Ivc Filter- 7 Implanted:Qty: 1 on 06/09/2007 by Tam Fraser MD IVC Filter N/A: Vena Cava Lead-Spinal Cord Stimulator- 018 Implanted:2017 by Taran Ramirez MD (Quantity not on file) Lead Back [employer] SC-[id number] / / Biotronik Ra Lead ([id number])- 019 Implanted:2018 (Quantity not on file) Lead Chest Biotronik SOLIA S [id number] / [id number] / Lead (Rv)-05/23/2021 Implanted:2020 (Quantity not on file) Lead Heart [employer]ik SOLIA S 53 377 177 / [id number] / Biotronik Paceomaker Ariana ThurmanT-12/24/2023 Implanted:2023 (Quantity not on file) Pacemaker Chest Wall [employer]ik [id number] / [id number] / Spinal Cord Stimulator- 018 Implanted:Qty: 1 on 08/20/2017 by Taran Ramirez MD Spinal Cord Stimulator N/A: Back [employer] SC-1200 / [id number] / Spinal Cord Stimulator Lead-08/20/2017 Implanted:2017 by Taran Ramirez MD (Quantity not on file) Spinal Cord Stimulator Back [employer] Neuro- [id number] / / Hardware Thoracic-L umbar Spine Loop Recorder Chest Wall Chris V[employer] System Closure Repair Femoral Artery Suture Mediated Perclose Prostyle 26512-45 - [id number] Implanted:Qty: 1 on 02/09/2024 by Morgan Roy MD at [facility] Vascular 11/16/2025 [id number] / / [id number] [place] [employer] Percutaneous Transcatheter Amplatzer Amulet 18mm [id number] - [id number] Implanted:Qty: 1 on 02/09/2024 by Morgan Roy MD at [facility] V[facility] 09/17/2027 9-[id number] 07-018 / / [id number] Chris V[employer] System Closure Repair Femoral Artery Suture Mediated Perclose Prostyle 92887-09 - [id number] Implanted:Qty: 1 on 02/09/2024 by Morgan Roy MD at [facility] 11/16/2025 [id number] / / [id number] [employer] Sling Urinary Incontinence Female Stress Short Desara Blue Sis-Ds01bs - [id number] Implanted:Qty: 1 on 06/28/2024 by Shankar Mak MD at [facility] N/A: Urethra [employer] 01/04/2027 SIS-DS01 BS / / [id number] Explanted Type Area Museum Tour Guide Device Identifier Shelf Expiration Date Model / Serial / Lot Biotronik Rv Lead ([id number])-07/04 Implanted:Qty: 1 on 07/04/2019 Explanted:Qty: 1 Lead Chest Biotronik [id number] / / Description:This lead was re placed and left behind per patient on 05/23/21 Biotronik Pacemaker ([id number])-07/04 Implanted:Qty: 1 on 07/04/2019 Explanted:Qty: 1 on 12/24/2023 Pacemaker Left: Chest Biotronik ELUNA 8 KRISTY CARBAJAL / [id number] / [id number] Procedures Procedure Name Priority Date/Time Associated Diagnosis Comments XR SPINE THORACOLUMBAR JUNCT ION 2 OR MORE VIEWS Schedule Routine, Read Routine (OP Routine) 08/25/2024 7:35 AM PHOTOCOMPOSING MACHINE OPERATOR Transient ischemic attack (TIA) Cerebrovascular disease, unspecified Unspecified visual loss Presence of cardiac pacemaker XR CHEST PA LATERAL 2 VIEWS Schedule RY, Read RY (Appt Today, Awaiting Results) 08/23/2024 12:16 PM PHOTOCOMPOSING MACHINE OPERATOR Pacemaker reprogramming/c heck Complete heart block (HCC) DEVICE CHECK - IN OFFICE Routine 025 10:57 AM PHOTOCOMPOSING MACHINE OPERATOR Pacemaker reprogramming/c heck COLONOSCOPY 08/02/2024 1:43 PM PHOTOCOMPOSING MACHINE OPERATOR SURGICAL PATHOLOGY Routine 08/02/2024 1:26 PM PHOTOCOMPOSING MACHINE OPERATOR Dysphagia, unspecified type Dyspepsia Diarrhea, unspecified type EGD 08/02/2024 1:15 PM PHOTOCOMPOSING MACHINE OPERATOR ESOPHAGOGASTRODUODENOSCOPY BIOPSY 08/02/2024 1:12 PM PHOTOCOMPOSING MACHINE OPERATOR Dysphagia, unspecified type Dyspepsia Diarrhea, unspecified type COLON BIOPSY 08/02/2024 1:12 PM PHOTOCOMPOSING MACHINE OPERATOR Dysphagia, unspecified type Dyspepsia Diarrhea, unspecified type SCAN - OTHER ORDERS 07/26/2024 HEPATITIS C ANTIBODY Routine 07/06/2020 2:58 PM PHOTOCOMPOSING MACHINE OPERATOR Polyarthralgia Encounter for screening for other viral diseases from Last 3 Months or Most Recently Relevant to Health Maintenance Results * XR Spine Thoracolumbar Junction 2 or More Views (08/25/2024 7:35 AM PHOTOCOMPOSING MACHINE OPERATOR) Anatomical Region Laterality Modality Spine N/A Computed Radiogr aphy 08/25/2024 7:45 AM PHOTOCOMPOSING MACHINE OPERATOR Impressions 08/25/2024 7:45 AM PHOTOCOMPOSING MACHINE OPERATOR 1. Thoracic stimulator device in place with [...] Nehemias Simons D.O. Narrative 08/25/2024 7:45 AM PHOTOCOMPOSING MACHINE OPERATOR EXAMINATION: XR SPINE THORACOLUMBAR JUNCTION 2 OR [...] Pa Lateral 2 Views (08/23/2024 12:16 PM PHOTOCOMPOSING MACHINE OPERATOR) Anatomical Region Laterality Modality Body, Chest N/A Computed Radiogr aphy 08/23/2024 2:08 PM PHOTOCOMPOSING MACHINE OPERATOR Impressions 08/23/2024 4:13 PM PHOTOCOMPOSING MACHINE OPERATOR FINDINGS/IMPRESSION: Left subclavian approach pacemaker with leads [...] Arpit Mcclelland M.D. Narrative 08/23/2024 4:13 PM PHOTOCOMPOSING MACHINE OPERATOR EXAMINATION: XR CHEST PA LATERAL 2 VIEWS [...] CHECK - IN OFFICE (08/23/2024 10:57 AM PHOTOCOMPOSING MACHINE OPERATOR) Anatomical Region Laterality Modality Other 08/23/2024 2:00 AM PHOTOCOMPOSING MACHINE OPERATOR Narrative 08/27/2024 9:33 PM PHOTOCOMPOSING MACHINE OPERATOR Interpretation Summary: Battery and Leads (BL) Normal parameters noted on battery and lead(s) --- Estimate 10 years to TEREZA Procedure Note Leonardo Grimm MD - 08/27/2024 Interpretation Summary: Battery and Leads (BL) Normal parameters noted on battery and lead(s) --- Estimate 10 years toERI us Elise Ibarra NP [facility] C[facility] PROCE DURES Final Result * Colonoscopy (08/02/2024 1:43 PM PHOTOCOMPOSING MACHINE OPERATOR) Anatomical Region Laterality Modality Other Narrative Procedure Note Trey Arroyo MD - 08/02/2024 1:43 PM CST [facility] ENDOSCOPY [facility] Patient Name: Naye Cantu Procedure Date: 08/02/2024 1:43 PM Date of : 1965 Admit Type: Outpatient Age: 58 Gender: Female Attending MD: Trey Arroyo M.D. Room: [facility] ENDOSCOPY ROOM 8 Note Status: Finalized Procedure: [...] The scope was passed under direct vision.The [id number] endoscope was introduced through the anus and advanced to the terminal ileum. The colonoscopy was performed without difficulty. The patient tolerated the procedure well. The qualityof the bowel preparation was evaluated using the BBPS ([place] Bowel Preparation Scale) with scores of:Right Colon [...] business hours - Please call theNurse Coordinator: [phone] After hours, evening, nights, weekends and holidays- Please call the hospital continuous drier operator at and ask for the GI fellow international broadcast music librarian. Attending Participation: I was present and participated during the entire procedure, including non-patrick portions. Electronically signed by Trey Arroyo MD Trey Arroyo M.D. 08/02/2024 2:08:56 PM . Number of Addenda: 0 Note Initiated On: 08/02/2024 1:43 PM Trey Arroyo MD ENDOSCOPY PROCEDURES Final Result * Surgical pathology (08/02/2024 1:26 PM PHOTOCOMPOSING MACHINE OPERATOR) Tissue (Duodenum, Biopsy) 08/02/2024 1:26 PM PHOTOCOMPOSING MACHINE OPERATOR Tissue (Gastric/Stomach biopsy) 08/02/2024 1:29 PM PHOTOCOMPOSING MACHINE OPERATOR Tissue (Esophageal biopsy) 08/02/2024 1:38 PM PHOTOCOMPOSING MACHINE OPERATOR Tissue (Colon, Biopsy) 08/02/2024 2:02 PM PHOTOCOMPOSING MACHINE OPERATOR Narrative PATHOLOGY [facility] - 08/05/2024 10:16 AM PHOTOCOMPOSING MACHINE OPERATOR EPIC results best viewed via link to PDF [facility] [place] [address] Note to Patients: This report may contain [...] Gender: F : 1965 (Age: 58) Address: [address] [place], [place] [address] Hospital #: [id number] Taken:08/02/2024 Received:08/02/2024 Reported: 08/05/2024 Patient Type: [facility] Service: Gastroenterology Location: Physician(s): Pb Steward [...] Surgical Pathology and Flow Cytometry Departments at [facility] as part of an ongoing associate quality engineer program and in compliance with federally [...] Surgical Pathology and Flow Cytometry Departments of [facility]. It has not been cleared or approved by the U. S. Food and Drug Administration. IMAGES AND SCANNED DOCUMENTS, IF INCLUDED, ONLY VIEWABLE IN PDF VERSION OF REPORT Trey Arroyo MD LAB PATHOLOGY ORDERAB LES Final Result PATHOLOGY [facility] 3rd Floor BRENDA Benedict [phone] * EGD (08/02/2024 1:15 PM PHOTOCOMPOSING MACHINE OPERATOR) Anatomical Region Laterality Modality Other Narrative Procedure Note Trey Arroyo MD - 08/02/2024 1:15 PM CST [facility] ENDOSCOPY [facility] Patient Name: Naye Cantu Procedure Date: 08/02/2024 1:15 PM Date of : 1965 Admit Type: Outpatient Age: 58 Gender: Female Attending MD: Trey Arroyo M.D. Room: [facility] ENDOSCOPY ROOM 8 Note Status: Addendum Procedure: [...] passed under direct vision. The GIF [id number] endoscope was introducedthrough the mouth, and advanced [...] During normal business hours - Please call [facility] Coordinator: [phone] After hours, evening, nights, weekends and holidays- Please call the hospital continuous drier operator at and ask for the GI fellow international broadcast music librarian. Attending Participation: I personally performed the entire [...] (07/26/2024) us Provider Scanning Final Result * Hepatitis C antibody (07/06/2020 2:58 PM PHOTOCOMPOSING MACHINE OPERATOR) Hep C Ab NON-REACTI VE NON-REACT GIA [facility] SIGNAL TO CUT-OFF 0.02 <1.00 [facility] Comment: HCV antibody was non-reactive. There is no laboratory evidence of HCV infection. In most cases, no further action is required. However, if recent HCV exposure is suspected, a test for HCV RNA (test code 80023) is suggested. For additional information please refer to http://[email or web address]/faq/ZAS60t4 (This link is being provided for informational/ educational purposes only.) Blood specimen (specimen) 07/06/2020 2:58 PM PHOTOCOMPOSING MACHINE OPERATOR 07/06/2020 3:00 PM PHOTOCOMPOSING MACHINE OPERATOR Narrative [facility] - 07/11/2020 9:33 PM PHOTOCOMPOSING MACHINE OPERATOR PATIENT UNABLE TO VOID; ADVISED TO RETURN FOR COLLECTION. Olga MONTES LAB MICROBIOLOGY - GENERA L ORDERABLES Final Result [facility] [address] [address] [phone] from Last 3 Months or Most Recently Relevant to Health Maintenance Insurance MEDICARE [place] MEDICARE [place] MEDICARE [facility] [address] [place] [id number] MEDICARE MEDICARE [place] Advance Directives For more information, please contact: [phone] * Full Code (Latest Code Status on [...] 6:47 AM 04/25/2020 10:09 PM Care Teams Quality Assurance Director Relationship Specialty Start Date End Date Tom Paz MD PCP - General 09/09/16 Tab Taylor MD [address] [place] [address] Consulting Physician Cardiology 01/03/20 Favian Caceres MD [address] [place] [address] Consulting Physician Rheumatology 08/28/23
--- NOTE | 2024-10-11 15:23 | P.SLEEP_ITS ---
Sleep Study Date of Study: 10/04/24 Ordering Provider: Ariella Nava APRN Interpreting Physician: Lluvia Pedraza MD Sleep Study Type: Split Polysomnogram Height: 1.73 m Weight: 83.915 kg Body Mass Index: 28.1 Neck Circumference (inches): 15 [place]: 16 Reason for Sleep Study Hypersomnolence Sleep History Naye Hart is a 59-year-old woman with witnessed obstruction during a colonoscopy and was told to get a sleep study. She occasionally awakens from sleep short of breath. She rarely wakes at night with heartburn, belching or coughing.??She frequently snores, however she does not know if she snores loudly enough that it bothers others because she is . She constantly has difficulty sleeping when she has a cold. She rarely wakes up gasping for breath at night. She really has breathing problems at night observed by others. She occasionally sweats excessively at night which she attributes to reflex sympathetic dystrophy. She constantly has irregular heartbeats at night. She occasionally falls asleep during the day, frequently falls asleep involuntarily but never falls asleep while driving. She never has loss of muscle tone with strong emotion. She rarely experiences vivid dreams upon waking or falling asleep. She never feels afraid of going to sleep. She rarely has nightmares. She for occasionally recalls her dreams. She rarely has thoughts racing through her mind. She rarely feels sad or depressed. She rarely feels anxiety. She constantly notices parts of her body jerk. She rarely kicks during the night. She constantly feels crawling or aching feelings in her legs. She constantly feels leg pain at night. She rarely has morning jaw pain, and does not know if she grinds her teeth at night. She constant feels bothered by pain during the day which is due to reflex sympathetic dystrophy, is occasionally awakened by pain during the night. She frequently wakes up feeling stiff in the morning, frequently wakes feeling sore or achy in the morning. She constantly awakens with pain in her neck, spine, or joints. She does not work, she is disabled. Her normal bedtime is 9:00 p.m. falling asleep within minutes, typically waking 1-2 times at night to go to the bathroom. She is able to return to sleep within minutes. These awakenings occur in the middle of the night. Her normal will hold weaning and 7:00 a.m.. She estimates getting between 6 and 8 hours of sleep at night. She keeps the same schedule on weekends. Habits: Tobacco: never smoker Caffeine: None. Alcohol: None Recreational substances: None PMFSH Past Medical History Medical History Leg edema, right Bilateral leg paresthesia Knee injury Pain of left femur Knee pain Left thigh pain Coccygeal pain, acute COVID-19 COVID Loss of vision TMJ (temporomandibular joint disorder) Acquired deviated nasal septum Nosebleed Pacemaker Right shoulder pain Witnessed apneic spells Snoring Apnea Chronic GERD Presence of Amulet left atrial appendage closure device Pelvic pain Hematoma of left chest wall Topical med dermatitis Right hand pain Bilateral knee pain Lumbar pain Acute cervical myofascial strain Acute bacterial sinusitis Hypersomnolence Migraine Vomiting DVT (deep venous thrombosis) Flatulence Cervical pain Spasm of lumbar paraspinous muscle MCL sprain of left knee Abrasion of toe Lesion of skin of nose Pneumonia LLQ abdominal pain Knee pain Foreign body in ear BMI 29.0-29.9,adult Lumbar stenosis Foraminal stenosis of lumbar region Pancreatitis Diarrhea Family history of beta thalassemia Inappropriate sinus tachycardia Presence of IVC filter Fibromyalgia Rheumatoid arthritis Anxiety Depression Abnormality of heart beat Ear pain Wears glasses Lightheadedness Vertigo Presence of neurostimulator History of deep vein thrombosis Abdominal bloating Hypoglycemia Allergic reaction to allergy skin test Abdominal lump Anxiety about health Hyponatremia Allergic dermatitis Headache Degenerative joint disease of cervical and lumbar spine TIA (transient ischemic attack) Ataxia A-fib Confusion Atypical face pain D-dimer, elevated Left ear pain Rheumatoid arthritis, seronegative, multiple sites Foreign body of toe Groin pain Groin hematoma Restless leg syndrome Dizziness Lipid disorder Fracture of second toe, left, closed Atopic dermatitis Bradycardia Anemia, unspecified Essential (primary) hypertension Mixed hyperlipidemia Paroxysmal atrial fibrillation RSD (reflex sympathetic dystrophy) SVT (supraventricular tachycardia) Surgical History Surgical History Hx of atrioventricular node ablation History of surgery on left wrist H/O cardiac radiofrequency ablation S/P IVC filter S/P insertion of spinal cord stimulator History of tubal ligation History of endometrial ablation H/O hernia repair Status post surgical removal of both fallopian tubes History of arthroscopic knee surgery History of back surgery History of permanent cardiac pacemaker placement 2018 pacemaker replaced 2023 Family History Family History Grandparent Family history of blood dyscrasia Family history of Alzheimer's disease Family history of malignant neoplasm of cervix Mother Family history of Alzheimer's disease Thyroid activity decreased Father Family history of lung cancer Sibling Thyroid activity decreased Other Diabetes mellitus Family history of allergic disorder Family history of kidney disease Family history of malignant neoplasm of thyroid High cholesterol Social History Social History Social History: Caffeine-none Smoking packs per day: 0 Smoking cigarettes per day: 0.0 Years smoked: 0 Smoking pack-years: 0.00 Smoking status: Never smoker Second hand tobacco smoke exposure: No Alcohol intake: never Substance use: never Substance use type: does not use Do You Feel Safe in your Home?: Yes Lack of Transportation: No Lack of Food: Never True Current Housing: I Have Housing Concerned About Future Housing: No Difficulty Paying Gas/Electric Bills: No Difficulty Paying for Meds: No Currently Unemployed: No Education: High School Diploma/GED Difficulty w/ Childcare or Family Care: No Living arrangements: alone Occupation/Education: retired 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 Gender identity (if verbalized by the patient): Female Sexual Orientation (if Verbalized by the Patient): Straight or Heterosexual Spiritual care concerns: No Medications Home Medications ?Medication ?Instructions ?Recorded ?Confirmed ?Type albuterol sulfate 90 mcg/actuation 1 inh inhalation Q4H PRN shortness 10/13/22 08/30/24 Rx aerosol inhaler (ProAir HFA) of breath or wheezing #6.7 grams epinephrine 0.3 mg/0.3 mL 0.3 mg (0.3 mL) IM ONCE PRN 03/20/23 08/30/24 Rx injection, auto-injector (EpiPen Allergic Reaction #2 ea 2-Ranulfo) golimumab 50 mg/0.5 mL 50 mg subcut MONTHLY 03/26/23 08/30/24 History subcutaneous pen injector (Simponi) promethazine 25 mg rectal 25 mg RECTAL Q6H PRN nausea and 06/04/23 08/30/24 Rx suppository (Promethegan) vomiting #12 ea aspirin 81 mg tablet,delayed 81 mg PO DAILY 07/01/23 08/30/24 History release mupirocin 2 % topical ointment 1 applic topical BID 07/01/23 08/30/24 History duloxetine 60 mg capsule,delayed 60 mg PO HS #90 caps 07/27/23 08/30/24 Rx release (Cymbalta) metoprolol tartrate 50 mg tablet 50 mg PO BID 10/22/23 08/30/24 History lidocaine 5 % topical patch 1 patch topical DAILY #15 ea 10/26/23 08/30/24 Rx ropinirole 1 mg tablet 1 mg PO TID #270 tabs 03/07/24 08/30/24 Rx pramipexole 1 mg tablet 1 mg PO BID #180 tabs 03/22/24 08/30/24 Rx triamcinolone acetonide 0.1 % 1 applic topical BID #80 grams 03/22/24 08/30/24 Rx topical cream diclofenac sodium 1 % topical gel See Rx Instructions .Route 04/26/24 08/30/24 Rx .COMPLEX #500 grams baclofen 5 mg tablet 5 mg PO DAILY Muscle spasms #20 05/04/24 08/30/24 Rx tabs leflunomide 20 mg tablet 20 mg PO DAILY 06/13/24 08/30/24 History ondansetron 4 mg disintegrating 4 mg PO Q8H PRN nausea and 07/07/24 08/30/24 Rx tablet vomiting #20 tabs celecoxib 200 mg capsule See Rx Instructions .Route 07/18/24 08/30/24 Rx .COMPLEX #30 caps montelukast 10 mg tablet 10 mg PO DAILY #90 tabs 07/27/24 08/30/24 Rx (Singulair) rosuvastatin 40 mg tablet 40 mg PO DAILY #90 tabs 07/27/24 08/30/24 Rx pantoprazole 40 mg tablet,delayed See Rx Instructions .Route 08/29/24 Rx release .COMPLEX #90 tabs hydroxyzine HCl 25 mg tablet 25 mg PO Q8H itching 08/30/24 08/30/24 History nitroglycerin 0.4 mg sublingual 0.4 mg sublingual Q5MIN PRN Chest 09/14/24 Rx tablet (Nitrostat) Pain #25 tabs baclofen 5 mg tablet 5 mg PO TID 5 days #15 tabs 09/30/24 Rx Sleep Procedure A split night polysomnogram using the [employer] multi-channel system recorded the standard physiologic parameters including EEG, EOG, submentalis EMG, anterior tibialis EMG, EKG, body position, nasal and oral airflow using nasal pressure sensor and thermistor. Respiratory parameters of chest and abdominal movements were recorded with Respiratory Inductance Plethysmography belts. Oxygen saturation was recorded by pulse oximetry. Video monitoring was also performed. Sleep stages, periodic limb movements, and EEG arousals were scored in 30 second epochs according to the criteria of the AASM Scoring Manual. The Apnea-Hypopnea Index was calculated using CMS guidelines for definition of hypopnea while scoring respiratory events. After the baseline portion the patient met criteria for a titration with an apnea hypopnea index of 17.1 and desaturation to 86%. She used a small [employer] Simplus full face mask and heated humidity with CPAP 9 cm as the final and highest pressure. At this pressure, the patient spent 106.5 minutes in bed, 41 minutes awake, 47.5 minutes in non-REM and 18 minutes in REM. The sleep efficiency was 61.5%. The residual apnea-hypopnea index was 6.4 and the lowest saturation was 91%. REM occurred in the supine position. Sleep Architecture During the diagnostic portion of the study, the total recording time was 180.7 minutes. The total sleep time was 140.0 minutes. Sleep latency was 3.7 minutes. REM latency was - minutes. Sleep Efficiency was 77.5%. The patient had 19 awakenings for an awakening index of 8.1. Wake after sleep onset time was 37.0 minutes. The patient spent 20.5 minutes, 14.6% of total sleep time in Stage N1. The patient spent 111.5 minutes, 79.6% in Stage N2. The patient spent 8.0 minutes, 5.7% in Stage N3. The patient spent no time in Stage REM sleep. At 12:08:56 AM the patient was placed on PAP treatment and was titrated at pressures ranging from CPAP 5 cm to 9 cm. During the treatment portion of the study, the total recording time was 342.4 minutes. The total sleep time was 255.0 minutes. Sleep latency was 20.5 minutes. REM latency was 187.0 minutes. Sleep Efficiency was 74.5%. Wake after Sleep Onset time was 66.5 minutes. The patient spent 22.0 minutes, 8.6% of total sleep time in Stage N1. The patient spent 173.0 minutes, 67.8% in Stage N2. The patient spent 14.5 minutes, 5.7% in Stage N3. The patient spent 45.5 minutes, 17.8% in Stage REM. Respiratory Analysis During the diagnostic portion of the study, the patient had 16 hypopneas, 24 obstructive apneas, no mixed apneas, and no central apneas for an overall Apnea Hypopnea Index of 17.1 events per hour. The REM Apnea Hypopnea Index was -. The NREM Apnea Hypopnea Index was 17.1. The patient had a Central Apnea Hypopnea Index of 0. There were no Respiratory Effort Related Arousals resulting in a RERA index of - events per hour. The Respiratory Disturbance Index is 17.6 events per hour. There was no evidence of Zackary-Johns Respirations. During the treatment portion of the study, the patient had 21 hypopneas, 5 obstructive apneas, no mixed apneas, and 6 central apneas for an overall Apnea Hypopnea Index of 7.5 events per hour. The REM Apnea Hypopnea Index was 7.9. The NREM Apnea Hypopnea Index was 7.4. The patient had a Central Apnea Hypopnea Index of 1.4. There were no Respiratory Effort Related Arousals. The Respiratory Disturbance Index is 8.9 events per hour. There was no evidence of Zackary-Johns Respirations. Arousals During the diagnostic portion of the study, there were a total of 93 arousals for an arousal index of 39.9. There were 12 respiratory arousals for an index of 5.1. There were 3 periodic limb movement arousals for an index of 1.3. There were 3 isolated limb movement arousals for an index of 1.3. There were 75 spontaneous arousals for an index of 32.1. During the treatment portion of the study, there were a total of 95 arousals for an index of 22.4. There were 5 respiratory arousals for an index of 1.2. There were 8 periodic limb movement arousals for an index of 1.9. There were 3 isolated limb movement arousals for an index of 0.7. There were 79 spontaneous arousals for an index of 18.6. Periodic Limb Movements During the diagnostic portion of the study, the patient had 36 isolated limb movements with an index of 15.4. The patient had 61 periodic limb movements with an index of 26.1. The patient had a total of 97 limb movements with a total limb movement index of 41.6. During the treatment portion of the study, the patient had 69 isolated limb movements with an index of 16.2. The patient had 110 periodic limb movements with an index of 25.9. The patient had a total of 179 limb movements with a total limb movement index of 42.1. Oximetry Data During the diagnostic portion of the study, the patient had an average oxygen saturation of 94.6% in wake with a minimum oxygen saturation of 89 and a maximum oxygen saturation of 99%. The patient had an average oxygen saturation of 93% in sleep with a minimum oxygen saturation of 86% and a maximum oxygen saturation of 99%. The patient had 40 oxygen desaturations resulting in an Oxygen Desaturation Index of 17.1. The patient spent 1 minute, 0.6% of total sleep time with an oxygen saturation less than 88%. During the treatment portion of the study, the patient had an average oxygen saturation of 96.2% in wake with a minimum oxygen saturation of 90% and a maximum oxygen saturation of 99%. The patient had an average oxygen saturation of 93.9% in sleep with a minimum oxygen saturation of 90% and a maximum oxygen saturation of 98%. The patient had 35 oxygen desaturations resulting in an Oxygen Desaturation Index of 8.2. The patient spent no time time with an oxygen saturation less than 88%. Snoring Profile Snoring was mild and intermittent, eliminated during the titration. Cardiac Profile During the diagnostic portion of the study, the EKG showed normal sinus rhythm. The average pulse rate was 70 bpm. The minimum pulse rate was 69 bpm. The maximum pulse rate was 73 bpm. No arrhythmias noted. During the treatment portion of the study, the EKG showed normal sinus rhythm. The average pulse rate was 70 bpm. The minimum pulse rate was 69 bpm. The maximum pulse rate was 86 bpm. No arrhythmias noted. EEG Profile EEG was unremarkable, no evidence of seizures. Assessment and Plan Assessment and Plan (1) Obstructive sleep apnea: Code(s): G47.33 - Obstructive sleep apnea (adult) (pediatric) Status: Acute Assessment and Plan: This split night sleep study on 10/04/2024 shows moderate obstructive sleep apnea, the apnea-hypopnea index is 17.1 using a 4% criteria for desaturation, minimum saturation 86% and mild intermittent snoring. There was no REM on the baseline portion. The patient met criteria for a split night study, proceeded to CPAP titration using a small [employer] Simplus full face mask and heated humidity with CPAP 9 cm as the final and highest pressure. At this pressure, the patient spent 106.5 minutes in bed, 41 minutes awake, 47.5 minutes in non-REM and 18 minutes in REM. The sleep efficiency was 61.5%. The residual apnea-hypopnea index was 6.4 and the lowest saturation was 91%. REM occurred in the supine position. The patient should be prescribed this [employer] equipment as well as tubing, filters and reservoir. This should be used with all episodes of sleep. Compliance should be reviewed within 31-90 days of starting therapy for usage greater than 4 hours per night greater than 70% of the nights. The patient should be asked about symptoms such as excessive daytime sleepiness, quality of sleep, decreased nocturia, increased mental functioning such as memory, mood, and concentration. It is possible that she could tolerate a higher pressure. Her AHI at 9 cm was still above 5.0. (2) PLMD (periodic limb movement disorder): Code(s): G47.61 - Periodic limb movement disorder Status: Acute Assessment and Plan: The patient has sleep complaints including constant parts of her body jerking and constant feeling of crawling or aching feelings in her legs. She had excessive numbers of leg movements during this study, periodic limb movement index of 26.1 on the baseline and 25.9 during the titration. Periodic limb movements are elevated however the PLM arousal index was not elevated. Sleep was fragmented during the night. She meets criteria for PLM disorder. Her ferritin level was 28 on Aug 01, 2024. Several ferritin level dating back to 2022 have all been under 40. Ferritin should be 75 ng/mL or greater. If ferritin is below this, iron supplementation should be given to achieve ferritin of 75 ng/mL. There are nonpharmacologic methods to treat limb movements including daily exercise, stretching calf muscles before bed, avoiding excessive amounts of caffeine and alcohol, vitamin B supplementation, magnesium lotion massaged into legs before bed, and use of a weighted blanket. Pharmacologic therapy is very effective for restless legs syndrome and limb movements during sleep and may include [id number] voltage-gated calcium channel ligands such as gabapentin which is preferable to dopaminergic agents which can have augmentation. Other treatments can include opioids and benzodiazepines. Data The data obtained during this sleep study is adequate for interpretation. Certification This sleep study has been reviewed by a board certified sleep medicine physician.
[2024-10-11 18:04] VITALS: BMI 28.1
== END 2024-10-05 06:45 | disposition home or self-care (01) ==
LOC: ANHCSM 09:01
PROVIDERS: PCP Family Medicine; Visit Provider Nurse Practitioner Adult Health
DX: G47.33 Obstructive sleep apnea (adult) (pediatric) (principal); G47.61 Periodic limb movement disorder
CPT/HCPCS: 95811

== ENCOUNTER 2024-10-11 11:11 | Outpatient (CLI) | payer MEDICARE, MEDICAID, SELFPAY ==
--- NOTE | ~2024-10-11 | XR_ITS ---
EXAMINATION: XR chest 2V 10/11/2024 11:36 INDICATION: Pacemaker insertion PROCEDURE: 2 view chest COMPARISON: Comparison to multiple prior studies sequentially, with oldest reviewed study dated 08/2022. FINDINGS: The lungs are clear. There is pacemaker present. There is an additional lead identified damion les since prior examination. There are spinal stimulator leads. The cardiomediastinal silhouette is w ithin normal limits. There are no pleural effusions. There is no pneumothorax suspected. IMPRESSION: 1: NO ACUTE CARDIOPULMONARY DISEASE. Reviewed, dictated and finalized at location A.
--- OUTSIDE RECORDS SUMMARY | 2024-10-11 13:29 | XMS_ITS | Continuity of Care Document ---
Author Organization [facility] Address [address] [place] [address] [address] [place] [address] Phone Care Team Providers Care Grinder Set Up Operator Centerless Name Role Phone Anthony Gutierrez Unavailable Unavailable [...] Visit, [facility], [address] [place] [address] [address], [place], [place], [id number], [place] tel:[phone] [facility] No Information 0 0 Krishnasamy Anthony. [address] [facility] [address], [place], [address], [place]. tel:[phone] Office/outpat ient Visit, [facility], [address] [place] [address] [address], [place], [place], [id number], [place] tel:[phone] [facility] No Information 0 0 Krishnasamy Anthony. [address] [facility] [place] [address], [place], [place], [facility], [place]. tel:[phone] Office/outpat ient Visit, [facility], [id number] [place] [address] [address], [place], [place], [id number], [place] tel:[phone] SEC [facility] No Information Fe-2 3-201 0 Krishnasamy Anthony. [address] [facility] [place] [address], [place], [place], [facility], [place]. tel:[phone] [facility], [id number] [place] [address] [address], [place], [place], [id number], [place] tel:[phone] SEC [facility] No Information Jan-3 1-200 9 Krishnasamy Anthony. [facility], [place], [place], [facility], [place]. tel:[phone] [facility], [id number] [place] [address] [address], [place], [place], [id number], [place] tel:[phone] SEC [facility] No Information You-2 2-200 9 Krishnasamy Anthony. [address] [place], [place] [address]ate [place] [address], [place], [place], [facility], [place]. tel:[phone] [facility], [address] [place] [address] [address], [place], [place], [id number], [place] tel:[phone] [facility] [place] No Information May-0 8-200 9 Krishnasamy Anthony. [facility] [place] [address], [place], [place], [facility], [place]. tel:[phone] [facility], [address], [place], [place], [id number], [place] tel:[phone] SEC [facility] No Information Apr-2 8-200 7 Montes OD Simone. [address] [place] [address], [place], [place], [facility], [place]. tel:[phone] Family History Family Member Type Diagnosis Age At Onset No Information Payers Payer name Insurance type Covered green party ID Authoriza tion(s) Medicare [facility] [id number] Medicaid [facility] [id number] Social History Type Description Quantity Date Captured [...]
--- OUTSIDE RECORDS SUMMARY | 2024-10-11 13:29 | XMS_ITS | CONTINUITY OF CARE DOCUMENT ---
Author Name diaz charlenejez Address Unknown Organization [facility] Address 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 Hugo Ordoñez MD Hypotension active Malina Blood CCM SYNCOPE active Hugo Ordoeñz MD Palpitations active Hugo Ordoñez MD CCM [...] In-person encounter Office Visit Hugo Ordoñez MD [facility] - In-person encounter Office Visit Hugo Ordoñez MD [facility] Office - In-person encounter Office Visit Hugo Ordoñez MD [facility] - In-person encounter Office Visit Hugo Ordoñez MD [facility] - In-person encounter Office Visit Trent Pike MD [facility] - In-person encounter Office Visit Hugo Ordoñez MD [facility] - In-person encounter Office Visit Hugo Ordoñez MD [facility] - In-person encounter Office Visit Morgan Roy MD [facility] Atrial Fibrillation s/p AMULETGroin pain, right - In-person encounter Office Visit Hugo Ordoñez MD [facility] Office - In-person encounter Office Visit Hugo Ordoñez MD [facility] - In-person encounter Office Visit Hugo Ordoñez MD [facility] - In-person encounter Office Visit Hugo Ordoñez MD [facility] Office - In-person encounter Office Visit Hugo Ordoñez MD [facility] - In-person encounter Office Visit Hugo Ordoñez MD [facility] - In-person encounter Office Visit Morgan Roy MD [facility] - In-person encounter Office Visit Hugo Ordoñez MD [facility] Ischemia, transient cerebral NOS - In-person encounter Office Visit Hugo Ordoñez MD [facility] - In-person encounter Office Visit Hugo Ordoñez MD [facility] - In-person encounter Office Visit Hugo Ordoñez MD [facility] Office - In-person encounter Office Visit Hugo Ordoñez MD [facility] - In-person encounter Office Visit Hugo Ordoñez MD [facility] - In-person encounter Office Visit Hugo Ordoñez MD [facility] Office - In-person encounter Office Visit Hugo Ordoñez MD [facility] COVID-19 asymptomatic, no exposure, testing results unknown or negative screening - In-person encounter Office Visit Hugo Ordoñez MD [facility] - In-person encounter Office Visit Hugo Ordoñez MD [facility] Office - In-person encounter Office Visit Hugo Ordoñez MD [facility] - In-person encounter Office Visit Hugo Ordoñez MD [facility] - In-person encounter Office Visit Giorgio Catalan MD [facility] Office - In-person encounter Office Visit Hugo Ordoñez MD [facility] Office - In-person encounter Office Visit Hugo Ordoñez MD [facility] - In-person encounter Office Visit Hugo Ordoñez MD [facility] - In-person encounter Office Visit Jean Claude Gove DO [facility] - In-person encounter Office Visit Hugo Ordoñez MD [facility] - In-person encounter Office Visit Jean Claude Calixto DO [facility] Office - In-person encounter Office Visit Jean Claude Calixto DO [facility] Office - In-person encounter Office Visit Hugo Ordoñez MD [facility] - In-person encounter Office Visit Tab Taylor MD [facility] - In-person encounter Office Visit Hugo Ordoñez MD [facility] Office - In-person encounter Office Visit Hugo Ordoñez MD [facility] - In-person encounter Office Visit Tab Taylor MD [facility] - In-person encounter Office Visit Tab Taylor MD [facility] In-person encounter Office Visit Tab Taylor MD [facility] - In-person encounter Office Visit Tab Taylor MD [facility] Office - In-person encounter Office Visit Hugo Ordoñez MD [facility] - In-person encounter Office Visit Tab Taylor MD [facility] - In-person encounter Office Visit Hugo Ordoñez MD [facility] - In-person encounter Office Visit Tab Taylor MD [facility] Sinus node dysfunction - In-person encounter Office Visit Hugo Ordoñez MD [facility] Office - In-person encounter Office Visit Tab Taylor MD [facility] - In-person encounter Office Visit Hugo Ordoñez MD [facility] - In-person encounter Office Visit Tab Taylor MD [facility] - In-person encounter Office Visit Tab Taylor MD [facility] Presence of implantable loop recorder - In-person encounter Office Visit Tab Taylor MD [facility] Atrial Fibrillation s/p AMULET - In-person encounter Office Visit Hugo Ordoñez MD [facility] Hyperlipidemia - In-person encounter Office Visit Hugo Ordoñez MD [facility] Office - In-person encounter Office Visit Hugo Ordoñez MD [facility] Office - In-person encounter Office Visit Tab Taylor MD [facility] - In-person encounter Office Visit Tab Taylor MD [facility] SVT S/P ablation - In-person encounter Office Visit Tab Taylor MD [facility] - In-person encounter Office Visit Hugo Ordoñez MD [facility] - In-person encounter Office Visit Hugo Ordoñez MD [facility] - In-person encounter Office Visit Hugo Ordoñez MD [facility] Diastolic heart fail ure, chronic - In-person encounter Office Visit Hugo Ordoñez MD [facility] Shortness of breathEdema - localized - In-person encounter Office Visit Rodo Berg MD [facility] - In-person encounter Office Visit Rodo Berg MD [facility] - In-person encounter Office Visit Hugo Ordoñez MD [facility] - In-person encounter Office Visit Rodo Berg MD [facility] Inappropriate sinus tachycardia - In-person encounter Office Visit Rodo Berg MD [facility] - In-person encounter Office Visit Rodo Berg MD [facility] - In-person encounter Office Visit Hugo Ordoñez MD [facility] - In-person encounter Office Visit Hugo Ordoñez MD [facility] - In-person encounter Office Visit Genaro Jane MD [facility] - In-person encounter Office Visit Hugo Ordoñez MD [facility] - In-person encounter Office Visit Hugo Ordoñez MD [facility] Venous thrombosis - In-person encounter Office Visit Hugo Ordoñez MD [facility] - In-person encounter Office Visit Hugo Ordoñez MD [facility] Palpitations - In-person encounter Office Visit Hugo Ordoñez MD [facility] - In-person encounter Office Visit Hugo Ordoñez MD [facility] - In-person encounter Office Visit Hugo Ordoñez MD [facility] - In-person encounter Office Visit Hugo Ordoñez MD [facility] - In-person encounter Office Visit Hugo Ordoñez MD [facility] - In-person encounter Office Visit Hugo Ordoñez MD [facility] - In-person encounter Office Visit Hugo Ordoñez MD [facility] - In-person encounter Office Visit Hugo Ordoñez MD [facility] - In-person encounter Office Visit Hugo Ordoñez MD [facility] - In-person encounter Office Visit Hugo Ordoñez MD [facility] REFLEX SYMPATHETIC DYSTROPHY OF THE LOWER LIMBHypotensionSYNCOPE VITAL SIGNS Date Observation Value Provider Body Mass Index (Ratio) 29.66 kg/m2 Bruce Ordoñez MD blood pressure, diastolic 82 mm[Hg] Aimee Shea blood pressure, systolic 136 mm[Hg] [facility], [facility] 96 % [facility]ys [facility] pulse rate 72 /min Amarilys Shea blood pressure, cuff size regular [facility]imee [facility] weight E&M 198 [lb_av] [facility]ilys [facility] height E&M 68.5 [in_i] [facility]ilys [facility] Body Mass Index (Ratio) 29.81 kg/m2 Bruce Ordoñez MD pulse rate 73 /min Minal Floreser s oxygen saturation, oximetry 99 % Minal Romero blood pressure, diastolic 91 mm[Hg] Ti jurgen Romero blood pressure, systolic 115 mm[Hg] Tif ashli Romero blood pressure, cuff size regular Ti jurgen Romero weight E&M 199 [lb_av] Minal Saunder s height E&M 68.5 [in_i] Minal Saunder s Body Mass Index (Ratio) 29.13 kg/m2 Bruce Ordoñez MD blood pressure, cuff size regular As elizabeth Lopes blood pressure, diastolic 76 mm[Hg] As elizabeth Lopes blood pressure, systolic 102 mm[Hg] Vince Lopes pulse rate 72 /min Linda Lopes oxygen saturation, oximetry 98 % Linda Lopes weight E&M 194.4 [lb_av] Linda Lopes Body Mass Index (Ratio) 29.37 kg/m2 Gildardo rashad Porfriio blood pressure, cuff size regular Ke rri Gruenenfelder blood pressure, diastolic 80 mm[Hg] Ke rri Gruenenfelder blood pressure, systolic 126 mm[Hg] Ker ri Gruenenfelder oxygen saturation, oximetry 97 % Kendra Gruenenfelder pulse rate 77 /min Kendra Gruenenfe lder weight E&M 196 [lb_av] Kendra Gruenenfe er height E&M 68.5 [in_i] Kendra Gruenenfe er Body Mass Index (Ratio) 29.51 kg/m2 Madison Pike MD blood pressure, diastolic 60 mm[Hg] Li nkLogic blood pressure, systolic 100 mm[Hg] Amee kLogic oxygen saturation, oximetry 98 % Kendra Grwaldoer pulse rate 70 /min Kendra Gruenenfe lder blood pressure, diastolic 60 mm[Hg] Ke rri Gruenenfelder blood pressure, systolic 100 mm[Hg] Ker ri Heidi weight E&M 197 [lb_av] Kendra Gruenenfe er height E&M 68.5 [in_i] Kendra Gruenenfe er Body Mass Index (Ratio) 29.37 kg/m2 Bruce Ordoñez MD blood pressure, cuff size regular Ke rri Gruenenfelder blood pressure, diastolic 70 mm[Hg] Ke rri Gruenenfelder blood pressure, systolic 130 mm[Hg] Ker ri Gruenenfelder oxygen saturation, oximetry 96 % Kendra Gruenenfelder respiratory rate E&M 12 /min Kendra cordovafreddie pulse rate 91 /min Kendra Jernigan [facility] weight E&M 196 [lb_av] Kendra Jernigan er height E&M 68.5 [in_i] Kendra Jernigan [facility] Body Mass Index (Ratio) 28.77 kg/m2 Bruce Ordoñez MD blood pressure, cuff size regular Ta bitha Faulkner blood pressure, diastolic 88 mm[Hg] Ta bitha Faulkner blood pressure, systolic 128 mm[Hg] Tab itha Faulkner oxygen saturation, oximetry 99 % Padmaja [...] Carmenza blood pressure, cuff size regular Ta bitha Faulkner blood pressure, diastolic 80 mm[Hg] Ta [...] blood pressure, systolic 132 mm[Hg] Ker ri Gruenenfelder oxygen saturation, oximetry 96 % Kendra Gruenenfelder respiratory rate E&M 12 /min Kendra G ruenenfelder pulse rate 87 /min Kendra Gruenenfe lder weight E&M 202 [lb_av] Kendra Gruenenfe lder height E&M 68.5 [...] Kendra Gruenenfe lder Body Mass Index (Ratio) 29.37 kg/m2 Rishabh farias Eladia blood pressure, cuff size regular Ke rri Gruenenfelder blood pressure, diastolic 90 mm[Hg] Ke rri Gruenenfelder blood pressure, systolic 140 mm[Hg] Ker ri Gruenenfelder pulse rate 108 /min Kendra Rashiduenesalliee [facility] oxygen saturation, oximetry 97 % Kendra Heidi respiratory rate E&M 12 /min Kendra Alamo gretchenenenffreddie weight E&M 196 [lb_av] Kendra Conradonekatie gonsalez height E&M 68.5 [in_i] Kendra Rere gonsalez Body Mass Index (Ratio) 29.37 kg/m2 Bruce Ordoñez MD blood pressure, diastolic 81 mm[Hg] Jacey Collins blood pressure, systolic 115 mm[Hg] Bhakti [...] Heidi blood pressure, systolic 142 mm[Hg] Kera dumont Heidi oxygen saturation, oximetry 97 % Kendra Heidi respiratory rate E&M 12 /min Kendra Alamo penelopenffreddie pulse rate 79 /min Kendra Conradonekatie [facility] weight E&M 199 [lb_av] Kendra Conradonekatie gonsalez height E&M 68.5 [in_i] Kendra Conradonekatie gonsalez Body Mass Index (Ratio) 29.07 kg/m2 Kam Roy MD blood pressure, diastolic 89 mm[Hg] An gem Dennis blood pressure, systolic 122 mm[Hg] Any a Dennis blood pressure, cuff size large An gem pulse rate 71 /min Brenda oxygen saturation, oximetry 92 % Brenda weight E&M 194 [lb_av] Brenda height E&M 68.5 [in_i] Brenda Body Mass Index (Ratio) 29.22 kg/m2 Bruce Ordoñez MD blood pressure, diastolic 87 mm[Hg] An gem blood pressure, systolic 125 mm[Hg] Any a Dennis pulse rate 79 /min Brenda blood pressure, cuff size large An gem oxygen saturation, oximetry 98 % Brenda weight E&M 195 [lb_av] Brenda Dennis height E&M 68.5 [in_i] Brenda Dennis Body Mass Index (Ratio) 28.92 kg/m2 Bruce Ordoñez MD blood pressure, cuff size regular Ke rri Heidi blood pressure, diastolic 80 mm[Hg] Ke rri Heidi blood pressure, systolic 126 mm[Hg] Kera Gordon oxygen saturation, oximetry 98 % Kendra Gordon respiratory rate E&M 12 /min Kendra cullenenefreddy pulse rate 75 /min Kendra Jernigan [facility] weight E&M 193 [lb_av] Kendra Jernigan [facility] height E&M 68.5 [in_i] Kendra Jernigan [facility] Body Mass Index (Ratio) 29.51 kg/m2 Bruce Ordoñez MD blood pressure, diastolic 97 mm[Hg] Madeline patleLogjuan m blood pressure, systolic 136 mm[Hg] Amee Lidyaogjuan m weight E&M 197 [lb_av] Brenda Dennis blood pressure, diastolic 97 mm[Hg] Jacey rabago Dennis blood pressure, systolic 136 mm[Hg] Any maxime Dennis oxygen saturation, oximetry 97 % Brenda Dennis pulse rate 70 /min Brenda Dennis height E&M 68.5 [in_i] Brenda Dennis blood pressure, cuff size large An gem Dennis Body Mass Index (Ratio) 28.47 kg/m2 Bruce Ordoñez MD blood pressure, cuff size large Ke rri Heidi blood pressure, diastolic 80 mm[Hg] Ke rri Heidi blood pressure, systolic 110 mm[Hg] Kera Gordon oxygen saturation, oximetry 98 % Kendra Gordon respiratory rate E&M 16 /min Kendra navarro pulse rate 81 /min Kendra Jernigan [facility] weight E&M 190 [lb_av] Kendra Jernigan [facility] height E&M 68.5 [in_i] Kendra Jernigan [facility] Body Mass Index (Ratio) 28.47 kg/m2 Bruce [...] blood pressure, diastolic 84 mm[Hg] Ke rri Heidi blood pressure, systolic 126 mm[Hg] Kera Gordon oxygen saturation, oximetry 99 % Kendra Gordon respiratory rate E&M 14 /min Kendra navarro pulse rate 82 /min Kendra Jernigan [facility] weight E&M 192 [lb_av] Kendra Jernigan [facility] height E&M 68.5 [in_i] Kendra Jernigan [facility] Body Mass Index (Ratio) 28.77 kg/m2 Bruce Ordoñez MD blood pressure, diastolic 75 mm[Hg] Joanie Santamaria blood pressure, systolic 117 mm[Hg] Sujatha Santamaria oxygen saturation, oximetry 98 % Rachel Santamaria respiratory rate E&M 20 /min Deepthi Santamaria pulse rate 86 /min Rachel Lakhwinder [facility] weight E&M 192 [lb_av] Rachel Keane [facility] blood pressure, cuff size regular Joanie Cristiane Santamaria height E&M 68.5 [in_i] Rachel norton Body Mass Index (Ratio) 27.57 kg/m2 Bruce Ordoñez MD blood pressure, diastolic 97 mm[Hg] Ca therine Travis blood pressure, systolic 138 mm[Hg] Cat herine Travis oxygen saturation, oximetry 97 % Corinne Travis respiratory rate E&M 16 /min Catheri ne Dexter pulse rate 76 /min Corinne Travis weight E&M 184 [lb_av] Corinne Travis blood pressure, cuff size regular Ca therine Travis height E&M 68.5 [in_i] Corinne Dexter Body Mass Index (Ratio) 27.27 kg/m2 Bruce Ordoñez MD blood pressure, diastolic 95 mm[Hg] Madeline nkLogic blood pressure, systolic 133 mm[Hg] Amee kLogic blood pressure, diastolic 95 mm[Hg] Ca therine Dexter blood pressure, systolic 133 mm[Hg] Cat herine Travis oxygen saturation, oximetry 98 % Corinne Travis respiratory rate E&M 18 /min Catheri ne Travis pulse rate 92 /min Corinne Travis weight E&M 182 [lb_av] Corinne Travis blood pressure, cuff size regular Ca therine Dexter height E&M 68.5 [in_i] Corinne Dexter Body Mass Index (Ratio) 28.32 kg/m2 Bruce [...] blood pressure, diastolic 74 mm[Hg] Pa ris Ridge blood pressure, systolic 136 mm[Hg] Par is [place] oxygen saturation, oximetry 98 % Sophia Bullhead respiratory rate E&M 18 /min Sophia Armijo neda pulse rate 74 /min Sophia Bullhead height E&M 68.5 [in_i] Sophia Bullhead Body Mass Index (Ratio) 28.35 kg/m2 Sund brad Catalan MD blood pressure, cuff size regular Tr jennifer Sibley blood pressure, diastolic 80 mm[Hg] Tr jennifer Sibley blood pressure, systolic 120 mm[Hg] Try grecia Sibley oxygen saturation, oximetry 98 % Lovegrecia Sibley respiratory rate E&M 16 /min Melanie Sibley pulse rate 60 /min Melanie Sibley weight E&M 189.2 [lb_av] Melanie Garg s height E&M 68.5 [in_i] Melanie Sibley blood pressure, diastolic 102 mm[Hg] Li nkLogic blood pressure, systolic 125 mm[Hg] Amee kLogic blood pressure, cuff size regular Ca therine Travis blood pressure, diastolic 102 mm[Hg] Ca therine Dexter blood pressure, systolic 125 mm[Hg] Cat herine Travis oxygen saturation, oximetry 96 % Corinne Travis respiratory rate E&M 14 /min Catheri ne Dexter pulse rate 92 /min Corinne Dexter height E&M 68.5 [in_i] Corinne Dexter Body Mass Index (Ratio) 29.07 kg/m2 Bruce Ordoñez MD blood pressure, diastolic 90 mm[Hg] Madeline nkLogic blood pressure, systolic 136 mm[Hg] Amee kLogic blood pressure, diastolic 90 mm[Hg] Daysi juan [place] blood pressure, systolic 136 mm[Hg] Cayden helanya Manolo oxygen saturation, oximetry 98 % Denise [place] respiratory rate E&M 18 /min Kimberly e Manolo pulse rate 67 /min Denise Manolo weight E&M 194 [lb_av] Denise Manolo height E&M 68.5 [in_i] [facility] Body Mass Index (Ratio) 28.77 kg/m2 Bruce Ordoñez MD blood pressure, diastolic 80 mm[Hg] Madeline nkLogic blood pressure, systolic 118 mm[Hg] Amee kLogic blood pressure, cuff size regular Kr isheather [place] pulse rate 65 /min Va Chris blood pressure, diastolic 80 mm[Hg] Kr isty Chris blood pressure, systolic 118 mm[Hg] Kri sty Chris oxygen saturation, oximetry 97 % Va Chris respiratory rate E&M 19 /min Va [place] weight E&M 192 [lb_av] Va [place] height E&M 68.5 [in_i] Va Chris Body Mass Index (Ratio) 28.62 kg/m2 Rios is Gove DO blood pressure, cuff size large Ke rri Gruenenfelder blood pressure, diastolic 72 mm[Hg] Ke rri Gruenenfelder blood pressure, systolic 110 mm[Hg] Ker ri Gruenenfelder oxygen saturation, oximetry 98 % Kendra Mikekelsiesalliefelicianahun respiratory rate E&M 16 /min Kendra Alaom melanie pulse rate 75 /min Kendra Jernigan [facility] weight E&M 191 [lb_av] Kendra Jernigan er height E&M 68.5 [in_i] Kendra Jernigan [facility] Body Mass Index (Ratio) 28.92 kg/m2 Bruce [...] Body Mass Index (Ratio) 28.62 kg/m2 Rios tom Gove DO blood pressure, diastolic 72 mm[Hg] Mi juan [place] blood pressure, systolic 130 mm[Hg] [facility] helle [place] blood pressure, resting No Román dent [place] oxygen saturation, oximetry 98 % Denise Manolo respiratory rate E&M 18 /min Kimberly e Manolo pulse rate 67 /min Denise [place] weight E&M 191 [lb_av] Denise Manolo height E&M 68.5 [in_i] Denise Manolo Body Mass Index (Ratio) 27.57 kg/m2 JT S treepy blood pressure, diastolic 60 mm[Hg] Ann Freedman'Aly blood pressure, systolic 110 mm[Hg] Gricelda FreedmanAly oxygen saturation, oximetry 95 % Lara O'Aly respiratory rate E&M 16 /min Lara O'Aly pulse rate 81 /min Lara O'Aly weight E&M 184 [lb_av] Lara O'Aly height E&M 68.5 [in_i] Lara O'Aly Body Mass Index (Ratio) 28.02 kg/m2 Bruce Ordoñez MD blood pressure, diastolic 74 mm[Hg] Cy ntemilee Franoc blood pressure, systolic 116 mm[Hg] Anahy gustavo Franco oxygen saturation, oximetry 95 % Joslyn Franco pulse rate 86 /min Joslyngustavo Mendezbel l respiratory rate E&M 16 /min Joslyngustavo Franco blood pressure, cuff size regular Cy [...] Sania Warren pulse rate 104 /min Sania Warren blood pressure, diastolic 86 mm[Hg] Br ittany [...] Sania Block respiratory rate E&M 16 /min [facility] y Block height E&M 68.5 [in_i] [facility] Body Mass Index (Ratio) 27.72 kg/m2 Emanuel Heller blood pressure, cuff size regular Bradford isheather Chris pulse rate 89 /min Va Chris oxygen saturation, oximetry 99 % Va Chris blood pressure, diastolic 70 mm[Hg] Kr isty Chris blood pressure, systolic 122 mm[Hg] Bradfordi estuardo Castilloby respiratory rate E&M 19 /min Va [place] weight E&M 185 [lb_av] Va [place] height E&M 68.5 [in_i] Va Chris Body Mass Index (Ratio) 26.82 kg/m2 Grisel en Cam temperature site temporal Tonsha Hensley [...] Hensley Body Mass Index (Ratio) 27.12 kg/m2 Grisel en Cam blood pressure, diastolic 88 mm[Hg] Br ittany Block blood pressure, systolic 130 mm[Hg] Jessica tony Block pulse rate 94 /min Sania Block oxygen saturation, oximetry 97 % Sania Block weight E&M 181 [lb_av] Sania Block respiratory rate E&M 16 /min Brittan y Block height E&M 68.5 [in_i] Yenifer Aj Body Mass Index (Ratio) 27.72 kg/m2 Bruce Ordoñez MD respiratory rate E&M 16 /min Tonsha Hensley blood pressure, diastolic 97 mm[Hg] To nsha Hensley blood pressure, systolic 145 mm[Hg] Ton sha Hensley oxygen saturation, oximetry 98 % Tonsha Hensley pulse rate 94 /min Tonsha Hensley weight E&M 185 [lb_av] Jo Hensley height E&M 68.5 [in_i] Tonskonstantin Hensley Body Mass Index (Ratio) 27.87 kg/m2 Emanuel Heller blood pressure, diastolic 96 mm[Hg] Er ica Pruitt-Kashif blood pressure, systolic 140 mm[Hg] Mireya ca Pruitt-Kashif oxygen saturation, oximetry 98 % Velma Pruitt-Kashif pulse rate 84 /min Velma Pruitt- Kashif weight E&M 186 [lb_av] Velma Pruitt- Kashif height E&M 68.5 [in_i] Velma Pruitt- Kashif Body Mass Index (Ratio) 27.72 kg/m2 Bruce Ordoñez MD oxygen saturation, oximetry 99 % Chastity Jaime pulse rate 88 /min [facility] blood pressure, diastolic 84 mm[Hg] astity Jaime blood pressure, systolic 130 mm[Hg] Gisele stity Jaime respiratory rate E&M 16 /min Chastit y Jaime weight E&M 185 [lb_av] [facility] height E&M 68.5 [in_i] [facility] Jaime Body Mass Index (Ratio) 28.17 kg/m2 Grisel Levy blood pressure, diastolic 90 mm[Hg] Er ica Pruitt-Kashif blood pressure, systolic 126 mm[Hg] Mireya ca Pruitt-Kashif oxygen saturation, oximetry 98 % Velma Pruitt-Kashif pulse rate 80 /min Velma Pruitt- Kashif weight E&M 188 [lb_av] Velma Pruitt- Kashif height E&M 68.5 [in_i] Velma Pruitt- Kashif Body Mass Index (Ratio) 28.02 kg/m2 Bruce Ordoñez MD blood pressure, cuff size regular Cy jasper Franco blood pressure, diastolic 80 mm[Hg] Saul Franco blood pressure, systolic 108 mm[Hg] Anahy Franco oxygen saturation, oximetry 96 % Joslyn Franco respiratory rate E&M 16 /min Joslyn Franco pulse rate 100 /min Joslyn ponce weight E&M 187 [lb_av] Joslyn ponce height E&M 68.5 [in_i] Joslyn ponce Body Mass Index (Ratio) 28.02 kg/m2 Jord [...] Block Body Mass Index (Ratio) 27.87 kg/m2 Jord en Cam blood pressure, diastolic 84 mm[Hg] Er ica Edmond-Kashif blood pressure, systolic 120 mm[Hg] Mireya ca Michael oxygen saturation, oximetry 98 % Velma Michael pulse rate 80 /min Velma [place] weight E&M 186 [lb_av] Velma [place] height E&M 68.5 [in_i] Velma [place] Body Mass Index (Ratio) 27.72 kg/m2 Bruce Ordoñez MD blood pressure, cuff size regular Cy jasper Franco blood pressure, diastolic 68 mm[Hg] Cy jasper Franco blood pressure, systolic 124 mm[Hg] Anahy gustavo Franco oxygen saturation, oximetry 97 % Joslyn Franco respiratory rate E&M 16 /min Joslyngustavo Franco pulse rate 88 /min Joslyngustavo Glover l weight E&M 185 [lb_av] Joslyn Mendezbel l height E&M 68.5 [in_i] Joslyn Andreabel l Body Mass Index (Ratio) 27.87 kg/m2 Bruce Ordoñez MD pulse rate 107 /min Sania Briana blood pressure, diastolic 90 mm[Hg] Ryland Warren blood pressure, systolic 124 mm[Hg] Jessica Warren oxygen saturation, oximetry 97 % Sania Block weight E&M 186 [lb_av] Sania Block respiratory rate E&M 16 /min [facility] Block height E&M 68.5 [in_i] Sania Block Body Mass Index (Ratio) 30.86 kg/m2 Bruce Ordoñez MD oxygen saturation, oximetry 95 % Chastity Jaime blood pressure, diastolic 98 mm[Hg] Ch astity Jaime blood pressure, systolic 142 mm[Hg] Gisele stity Jaime pulse rate 93 /min Chastity Jaime respiratory rate E&M 16 /min Chastit y Jaime weight E&M 206 [lb_av] Giselestity Jaime height E&M 68.5 [in_i] Giseleity Jaime blood pressure, cuff size large Cr ahmet Dennis blood pressure, diastolic 90 mm[Hg] Cr ahmet Dennis blood pressure, systolic 130 mm[Hg] Cry ray Dennis oxygen saturation, oximetry 98 % Ghazala Collins respiratory rate E&M 17 /min Ghazala Collins pulse rate 92 /min Ghazala Kelly s height E&M 68.5 [in_i] Velma Rowland Body Mass Index (Ratio) 33.11 kg/m2 Cam Plurad blood pressure, diastolic 70 mm[Hg] Ann konstantin OAly blood pressure, systolic 122 mm[Hg] Gricelda linton 'Aly respiratory rate E&M 16 /min [facility] O'Aly oxygen saturation, oximetry 99 % Lara O'Aly pulse rate 90 /min Lara O'Aly weight E&M 221 [lb_av] [facility] height E&M 68.5 [in_i] [facility] Body Mass Index (Ratio) 34.16 kg/m2 Sammy marr Pranav blood pressure, cuff size large Ke rri Heidi blood pressure, diastolic 86 mm[Hg] Ke rri Rashiduenefreddy blood pressure, systolic 148 mm[Hg] Kera ri Heidi oxygen saturation, oximetry 98 % Kendra Gordon respiratory rate E&M 20 /min Kendra navarro pulse rate 76 /min Kendra gonsalezer weight E&M 228 [lb_av] Kendra gonsalezer height E&M 68.5 [in_i] Kendratim duckworth Body Mass Index (Ratio) 34.01 kg/m2 Bruce Ordoñez MD blood pressure, diastolic 80 mm[Hg] astity Jaime blood pressure, systolic 120 mm[Hg] Gisele stity Jaime oxygen saturation, oximetry 97 % [facility] 73 /min [facility] respiratory rate E&M 16 /min Giselestit y Jaime weight E&M 227 [lb_av] [facility] height E&M 68.5 [in_i] [facility] ([facility] 33.71 kg/m2 Bruce Ordoñez MD blood pressure, diastolic 80 mm[Hg] Bradford Castilloby blood pressure, systolic 120 mm[Hg] Aguila Castilloby respiratory rate E&M 16 /min [facility] oxygen saturation, oximetry 94 % Va Chris pulse rate 78 /min Va Chris blood pressure, cuff size regular Bradford Castilloby weight E&M 225 [lb_av] Va Chris height E&M 68.5 [in_i] [facility] blood pressure, diastolic 94 mm[Hg] Cordell Carter blood pressure, systolic 132 mm[Hg] Jim Carter oxygen saturation, oximetry 97 % Nataly Emma respiratory rate E&M 15 /min Nataly Emma pulse rate 71 /min Natalyrigo Carter height E&M 68.5 [in_i] Nataly Carter Body Mass Index (Ratio) 32.60 kg/m2 Bruce Ordoñez MD blood pressure, cuff size regular Serge Everett blood pressure, diastolic 78 mm[Hg] Serge Everett blood pressure, systolic 126 mm[Hg] Jose Floydhley oxygen saturation, oximetry 97 % Elana Floydhley respiratory rate E&M 18 /min Elana Marguerite [...] Berg MD blood pressure, cuff size regular Serge Everett blood pressure, diastolic 94 mm[Hg] Te jv Floydhley blood pressure, systolic 150 mm[Hg] Jose Floydhley oxygen saturation, oximetry 98 % Elana Marguerite respiratory rate E&M 18 /min Elana Floydhley pulse rate 87 /min Elana Floydhley blood pressure, resting No Josejose armando royer Marguerite weight E&M 218.2 [lb_av] Elana Peguero y Body Mass Index (Ratio) 31.16 kg/m2 Bruce Ordoñez MD blood pressure, diastolic 90 mm[Hg] Bradford Perez blood pressure, systolic 130 mm[Hg] Aguila Perez pulse rate 95 /min Va Perez oxygen saturation, oximetry 97 % Va Perez respiratory rate E&M 16 /min Va Castillo blood pressure, cuff size regular Bradford Perez weight E&M 208 [lb_av] Va Perez height E&M 68.5 [in_i] Va Perez blood pressure, diastolic 80 mm[Hg] Bradford Perez blood pressure, systolic 132 mm[Hg] Aguila Perez pulse rate 96 /min Va Perez oxygen saturation, oximetry 98 % Va Perez respiratory rate E&M 16 /min Va Peerz Body Mass Index (Ratio) 30.02 kg/m2 Vin Perez weight E&M 200.4 [lb_av] Va Perez blood pressure, diastolic 97 mm[Hg] Nv ayan Juarez blood pressure, systolic 136 mm[Hg] Tori Juarez pulse rate 98 /min Brianna Juarez oxygen saturation, oximetry 99 % Brianna Juarez respiratory rate E&M 16 /min Brianna Juarez Body Mass Index (Ratio) 30.14 kg/m2 Mariola Juarez weight E&M 201.2 [lb_av] Brianna Juarez blood pressure, diastolic 90 mm[Hg] Bradford Perez blood pressure, systolic 140 mm[Hg] Aguila Perez pulse rate 96 /min Va Perez oxygen saturation, oximetry 97 % Va Perez respiratory rate E&M 18 /min Va Perez Body Mass Index (Ratio) 28.92 kg/m2 Vin Perez weight E&M 193 [lb_av] Va Perez blood pressure, diastolic 78 mm[Hg] Nv ayan Larry blood pressure, systolic 122 mm[Hg] Tori derick Larry respiratory rate E&M 16 /min Brianna Larry pulse rate 103 /min Brianna Larry oxygen saturation, oximetry 97 % Brianna Larry Body Mass Index (Ratio) 28.62 kg/m2 [facility] jim Juarez weight E&M 191 [lb_av] Brianna Larry respiratory rate E&M 20 /min Brianna Larry pulse rate 106 /min Brianna Larry oxygen saturation, oximetry 99 % Brianna Larry blood pressure, diastolic 102 mm[Hg] Me ayan Larry blood pressure, systolic 144 mm[Hg] Tori derick Larry Body Mass Index (Ratio) 29.96 kg/m2 [facility] jim Juarez weight E&M 200 [lb_av] Brianna Larry blood pressure, diastolic 90 mm[Hg] Francisco Hernandezdney blood pressure, systolic 120 mm[Hg] Olaf Hernandezdney pulse rate 106 /min Franciscomendel Hernandezdney oxygen saturation, oximetry 97 % Franciscomendel Hernandezdney respiratory rate E&M 24 /min Sg Hernandezdney Body Mass Index (Ratio) 30.29 kg/m2 Elpidio Torrez weight E&M 202.2 [lb_av] Sg Hernandezdney Body Mass Index (Ratio) 29.51 kg/m2 [facility] jim Larry weight E&M 197 [lb_av] Brianna Larry respiratory rate E&M 20 /min Brianna Larry pulse rate 108 /min Brianna Larry oxygen saturation, oximetry 98 % Brianna Larry blood pressure, diastolic 79 mm[Hg] Nv ayan Larry blood pressure, systolic 122 mm[Hg] Tori derick Larry Body Mass Index (Ratio) 30.26 kg/m2 Elpidio Hernandezdney blood pressure, diastolic 90 mm[Hg] Francisco Torrez blood pressure, systolic 120 mm[Hg] Olaf Torrez pulse rate 104 /min Sg Torrez oxygen saturation, oximetry 98 % Sg Torrez respiratory rate E&M 22 /min Sg Torrez weight E&M 202 [lb_av] Sg Torrez Body Mass Index (Ratio) 29.51 kg/m2 Vincel sam Kate blood pressure, diastolic 84 mm[Hg] As hlee Lavinia blood pressure, systolic 120 mm[Hg] Vince Kate pulse rate 95 /min Mary Kate oxygen saturation, oximetry 96 % Mary Kate respiratory rate E&M 18 /min Mary Kate weight E&M 197 [lb_av] Mary Kate Body Mass Index (Ratio) 28.12 kg/m2 Margarita onofre Britton pulse rate 98 /min Farnaz Jarquin respiratory rate E&M 17 /min Farnaz Jarquin oxygen saturation, oximetry 98 % Farnaz Jarquin blood pressure, evans tolic, second observation 96 mm[Hg] Farnaz Jarquin blood pressure, syst olic, second observation 140 mm[Hg] Farnaz Jarquin blood pressure, diastolic 96 mm[Hg] Na noe Jarquin blood pressure, systolic 140 mm[Hg] Juani hersonjose armando Jarquin weight E&M 187 [lb_av] Farnaz Jarquin blood pressure, diastolic 92 mm[Hg] Syed Westbrook blood pressure, systolic 136 mm[Hg] Aayz Westbrook Body Mass Index (Ratio) 27.82 kg/m2 [...] Heidi Saleh blood pressure, diastolic 88 mm[Hg] gail Saleh blood pressure, systolic 127 mm[Hg] Dolly Saleh pulse rate 85 /min Heidi Saleh oxygen saturation, oximetry 99 % Heidi Saleh respiratory rate E&M 18 /min Heidi Saleh weight E&M 199 [lb_av] Heidi Saleh blood pressure, diastolic 88 mm[Hg] Ma elvis O'Aly blood pressure, systolic 110 mm[Hg] Gricelda linton O'Aly pulse rate 92 /min Lara O'Aly oxygen saturation, oximetry 99 % Lara O'Aly respiratory rate E&M 18 /min Lara O'Aly weight E&M 198 [lb_av] Lara O'Aly oxygen saturation, oximetry 96 % Celine Álvarez ANN blood pressure, diastolic 90 mm[Hg] Chanelle Álvarez ANN blood pressure, systolic 145 mm[Hg] Saqib Álvarez ANN pulse rate 96 /min Celine Álvarez ANN respiratory rate E&M 16 /min Celine Álvarez ANN weight E&M 199 [lb_av] Celine Álvarez ANN oxygen saturation, oximetry 97 % Celine Álvarez ANN blood pressure, diastolic 80 mm[Hg] Cahnelle Álvarez [place] blood pressure, systolic 122 mm[Hg] Saqib Álvarez [place] pulse rate 89 /min Celine Álvarez ANN respiratory rate E&M 16 /min Celine Álvarez [place] weight E&M 190 [lb_av] Celinemame Álvarez [place] blood pressure, diastolic, right arm 72 m m[Hg] [facility] blood pressure, systolic, right arm 100 m m[Hg] [facility] blood pressure, diastolic 72 mm[Hg] [facility] blood pressure, systolic 100 mm[Hg] [facility] pulse rate 105 /min [facility] oxygen saturation, oximetry 93 % [facility] respiratory rate E&M 17 /min [facility] weight E&M 185 [lb_av] Cristiane [facility] blood pressure, diastolic 60 mm[Hg] Ann nathaliakonstnatin O'Aly blood pressure, systolic 86 mm[Hg] Gricelda [...] Observation Value Provider Reference Range Interpretation Location bacteria, urine microscopy None seen [facility] None seen/Few hyaline casts, urine None [...] allan Abnormal leukocyte esterase, urine, by dipstick Trace [facility] Negative Abnormal appearance, urine Clear [facility] Clear urine color Yellow [facility] Yellow pH, urine, semiquantitative 5.5 [facility] 5.0-7.5 specific gravity, body fluid >=1.030 [facility] 1.005-1.030 Abnormal alanine aminotransferase (SGPT), serum 27 1/L [facility] 0-32 aspartate aminotransferase (SGOT), serum 26 1/L [facility] 0-40 alkaline phosphatase, serum 73 1/L [facility] 44-121 bilirubin, serum, total 0.4 mg/dL [facility] 0.0-1.2 globulin, serum 2.3 [facility] 1.5-4.5 albumin, serum 4.4 g/dL [facility] 3.8-4.9 protein, total, serum 6.7 g/dL [facility] 6.0-8.5 calcium, serum 9.6 mg/dL [facility] 8.7-10.3 carbon dioxide, venous blood 26 mmol/L [facility] 20-29 chloride, serum 104 mmol/L [facility] 96-106 potassium, serum 3.7 mmol/L [facility] 3.5-5.2 sodium, serum 143 mmol/L [facility] 899-424 4450/03 /19 urea nitrogen/creatinine ratio, serum 45 [facility] 12-28 High creatinine, serum 0.76 mg/dL [facility] 0.57-1.00 urea nitrogen, blood 34 mg/dL [facility] 8-27 High blood glucose, random 74 mg/dL [facility] 70-99 activated partial thromboplastin time (aPTT) 27 s [facility] 24-33 prothrombin time (patient) 10.9 s [facility] 9.1-12.0 international normalized ratio (INR) 1.0 [facility] 0.9-1.2 basophil count, absolute 0.0 x10E3/uL [facility] 0.0-0.2 Eosinophil Absolute Count 0.1 X10E3/UL [facility] 0.0-0.4 monocyte count, blood, automated 0.3 X10E3/UL [facility] 0.1-0.9 lymphocyte count, blood, automated 1.7 X10E3/UL [facility] 0.7-3.1 Absolute Neutrophils 2.8 X10E3/UL [facility] 1.4-7.0 basophils as percent of blood leukocytes 1 % [facility] Not Estab. eosinophils as percent of blood leukocytes 1 % [facility] Not Estab. monocytes as percent of blood leukocytes 7 % [facility] Not Estab. lymphocytes as percent of blood leukocytes 35 % [facility] Not Estab. neutrophils as percent of blood leukocytes 56 % [facility] Not Estab. platelet count 201 X10E3/UL [facility] 407-263 4639/03 /19 red blood cell distribution width 12.5 % [facility] 11.7-15.4 mean corpuscular hemoglobin concentration, RBC 34.0 G/DL [facility] 31.5-35.7 mean corpuscular hemoglobin, RBC 35.3 pg [facility] 26.6-33.0 High mean corpuscular volume, RBC 104 fL [facility] 79-97 High hematocrit, blood 38.2 % [facility] 34.0-46.6 hemoglobin, blood 13.0 g/dL [facility] 11.1-15.9 erythrocyte (RBC) count 3.68 X10E6/UL [facility] 3.77-5.28 Low leukocyte count, blood 5.0 X10E3/UL [facility] 3.4-10.8 Estimated Glomerular Filtration Rate (calc) 90 mL/min/{1.7 3_m2} [facility] >=60 Normal C, [facility] [address] [place] [address] aspartate aminotransferase (SGOT), serum 34 1/L [facility] 10-45 Normal C, [place] [address] alanine aminotransferase (SGPT), serum 35 1/L [facility] 7-45 Normal , [place] [address] Alkaline phosphatase 89 [facility] 40-130 Normal C, [place] [address] albumin, serum 4.3 g/dL [facility] 3.5-5.0 Normal C, [place] [address] protein, total, serum 7.1 g/dL [facility] 6.5-8.5 Normal , [place] [address] bilirubin, serum, total 0.7 mg/dL [facility] 0.1-1.2 Normal C, [place] [address] calcium, serum 9.2 mg/dL [facility] 8.5-10.3 Normal , [place] [address] blood glucose, random 74 mg/dL [facility] 70-199 Normal , [place] [address] creatine, serum 0.76 mg/dL [facility] 0.60-1.10 Normal C, [place] [address] urea nitrogen, blood 12 mg/dL [facility] 6-25 Normal C, [place] [address] anion gap, serum 9 mmol/L [facility] 2-15 Normal C, [place] [address] carbon dioxide, venous blood 28 mmol/L [facility] 22-32 Normal , [place] [address] chloride, serum 96 mmol/L [facility] 97-110 Low C, [place] [address] potassium, serum 3.8 MMOL/L [facility] 3.3-4.9 Normal C, [place] [address] sodium, serum 133 mmol/L [facility] 135-145 Low C, [place] [address] activated partial thromboplastin time (aPTT) 50 s [facility] 28-38 High C, [place] [address] international normalized ratio (INR) 3.50 [facility] 0.90-1.20 High C, [place] [address] prothrombin time (patient) 39.9 s [facility] 10.3-13.7 High C, [place] [address] Absolute Basophils 0.0 K/CUMM [facility] 0.0-0.1 Normal C, [place] [address] Absolute Monocytes 0.6 K/CUMM [facility] 0.2-0.8 Normal , [place] [address] Absolute Lymphocytes 1.4 K/CUMM [facility] 0.8-3.3 Normal , [place] [address] Absolute Neutrophils 4.7 K/CUMM [facility] 1.5-6.5 Normal C, [place] [address] nucleated red blood cells as percent of [...] [facility]ic 3.5-5.2 sodium, serum 142 mmol/L [facility] 475-373 4026/06 /14 urea nitrogen/creatinine ratio, serum 20 [facility]ic [...] Not Estab. platelet count 233 X10E3/UL [facility] 075-522 4086/04 /22 red blood cell distribution width 13.1 [...] [facility]ic 3.5-5.2 sodium, serum 144 mmol/L [facility] 262-278 2723/04 /22 urea nitrogen/creatinine ratio, serum 17 [facility]ic [...] Not Estab. platelet count 252 X10E3/UL [facility] 205-202 9603/10 /27 red blood cell distribution width 13.4 [...] Not Estab. platelet count 217 X10E3/UL [facility] 563-760 0271/09 /24 red blood cell distribution width 12.9 [...] [facility]ic 3.5-5.2 sodium, serum 144 mmol/L [facility] 836-410 5090/06 /11 urea nitrogen/creatinine ratio, serum 17 [facility]ic [...] Not Estab. platelet count 224 X10E3/UL [facility] 814-502 8254/06 /11 red blood cell distribution width 13.8 [...] [facility] 3.5-5.2 sodium, serum 142 mmol/L [facility] 411-940 5552/05 /08 urea nitrogen/creatinine ratio, serum 22 [facility]ic [...] Not Estab. platelet count 225 X10E3/UL [facility] 618-793 7347/05 /08 red blood cell distribution width 13.7 [...] Not Estab. platelet count 235 X10E3/UL [facility] 112-366 8780/04 /29 red blood cell distribution width 13.6 [...] Not Estab. platelet count 235 X10E3/UL [facility] 486-279 8488/12 /04 red blood cell distribution width 14.3 [...] [facility] 3.5-5.2 sodium, serum 144 mmol/L [facility] 318-323 4991/05 /23 urea nitrogen/creatinine ratio, serum 20 [facility] 9-23 eGFR if 97 mL/min/{1.7 3_m2} [facility] >59 eGFR if not 84 mL/min/{1.7 3_m2} [facility] >59 creatinine, serum 0.80 mg/dL [facility] 0.57-1.00 urea nitrogen, blood 16 mg/dL [facility] 6-24 blood glucose, random 95 mg/dL [facility] 65-99 coagulation managed by Evelia Altamirano N Oumar international normalized ratio (INR) 1.2 Va Perez Normal activated partial thromboplastin time (aPTT) 30 s [facility] 24-33 prothrombin time (patient) 11.1 s [facility] 9.1-12.0 international normalized ratio (INR) 1.1 [facility] 0.8-1.2 calcium, serum 10.0 mg/dL [facility] 8.7-10.2 carbon dioxide, venous blood 26 mmol/L [facility] 20-29 chloride, serum 102 mmol/L [facility] 96-106 potassium, serum 4.1 mmol/L [facility] 3.5-5.2 sodium, serum 143 mmol/L [facility] 104-189 8796/02 /07 urea nitrogen/creatinine ratio, serum 18 [facility]ic [...] Not Estab. platelet count 239 X10E3/UL [facility] 108-578 8407/02 /07 red blood cell distribution width 13.9 [...] Status Instructions Dates Provider Indications Com ments doxycycline hyclate 100 mg capsule active 1 capsule twice a day 10/10 Hugo Ordoñez MD tramadol 50 mg tablet active 1 tablet every six hours for pain 10/10 Hugo Ordoñez MD celecoxib 200 mg capsule active Oh Celestin DNP,[employer] leflunomide 20 mg tablet active VENTURA Rao DNPP Simponi 50 mg/0.5 mL pen injector active [...] 2 pills in the am - 07/26 SHILPI Rao DNP metoprolol tartrate 25 mg tablet completed Take [...] mouth once a day 04/03 - 08/07 aV Perez #90, 90 days supply, Prescribed by [...] and 5mg in pm 04/05 - 04/04 Vaefrem Perez METOPROLOL TARTRATE 25 MG ORAL TABLET completed one tab daily 03/28 - 08/15 Velma Rodriguez Zyrtec 10 mg capsule completed 1 tablet twice a day 12/29 - 08/04 Kendra Gordon aspirin 81 mg tablet,delayed release (DR/EC) completed 1 tablet by mouth once a day 12/29 - 08/04 Kendra Dannyer NUCYNTA 100 MG ORAL TABLET completed one [...] TABLET completed 3 times daily - 01/07 Elanamame Merchantey NUCYNTA ER 150 MG ORAL TABLET EXTENDED RELEASE 12 HOUR completed 09/05 - 02/08 Mary Kate NUCYNTA 75 MG ORAL TABLET completed 1 tab every 8 hours prn 09/05 - 02/08 Briannaderick Juarez REQUIP 0.5 MG ORAL TABLET completed [...] Hugo Ordoñez MD drug use no Hugo Becker D alcohol use no Hugo Lilly passive cigarette sm kelvin exposure no Hugo Ordoñez MD smoking status Never smoker Hugo Ordoñez MD personal history of marijuana use no Mario Porfirio drug use no Mario Porfirio alcohol use no Mario [place] passive cigarette sm kelvin exposure no Mario Porfirio smoking status Never smoker Mario Porfirio personal history of marijuana use no Oh Celestin DNP,[employer] drug use no Oh Celestin DN P,[employer] alcohol use no Oh Celestin DN P,[employer] passive cigarette sm kelvin exposure no Oh Celestin DNP,[employer] smoking status Never smoker Oh Celestin DNP,[employer] drug use none Hugo Ordoñez M D alcohol use no Hugo Becker D passive cigarette sm kelvin exposure no Hugo Ordoñez MD smoking status Never smoker Hugo Ordoñez MD drug use none Hugo Becker D alcohol use no Hugo Lilly passive cigarette sm kelvin exposure no Hugo Ordoñez MD smoking status Never smoker Hugo Ordoñez MD drug use none Hugo Becker D alcohol use no Hugo Becker D passive cigarette sm kelvin exposure no Hugo Ordoñez MD smoking status Never smoker Hugo Ordoñez MD drug use none Hugo Ordoñez M D alcohol use no Hugo Becker D passive cigarette sm kelvin exposure no Hugo Ordoñez MD smoking status Never smoker Hugo Ordoñez MD drug use none Hugo Lilly alcohol use no Hugo Lilly passive cigarette sm kelvin exposure no Hugo Ordoñez MD smoking status Never smoker Hugo Ordoñez MD number of grandchildren Hugo Ordoñez MD Eliana Nalluri SCENE SHIFTER drug use none Eliana Nalluri SCENE SHIFTER alcohol use no Eliana Nalluri SCENE SHIFTER passive cigarette sm kelvin exposure no Eliana Nalluri SCENE SHIFTER smoking status Never smoker Eliana Nallu ri SCENE SHIFTER drug use none Brendamaxime Collins alcohol use no Brenda Dennis passive cigarette sm kelvin exposure no Brendamaxime Collins smoking status Never smoker Brenda Dennis drug use none Hugo Lilly alcohol use no Hugo Lilly passive cigarette sm kelvin exposure no Hugo Ordoñez MD smoking status Never smoker Hugo Ordoñez MD drug use none Brenda Dennis alcohol use no Brenda Dennis passive cigarette sm kelvin exposure no Brendamaxime Collins smoking status Never smoker Brenda Dennis drug [...] no Brenda Dennis smoking status Never smoker Brendamaxime Collins social history reviewed E&M revi ewed [...] exercise, frequency, days per week yes Corinne Dexter caffeine use, averag e drinks per day no Corinne Travis passive cigarette sm kelvin exposure no Corinne Dexter smoking status Never smoker Corinne Ana s [...] averag e drinks per day no Sophia Bullhead passive cigarette sm kelvin exposure no Sophia Ridge smoking status [facility] E&M Marital Statu s: / L sharita alone E thnicity: Smoking History: P shahab has never smoked. Hugo Ordoñez MD social history reviewed E&M revi ewed - no changes required Hugo Ordoñez MD seatbelt usage 100 % Corinne Ana s physical exercise, frequency, days per week yes Corinne Travis caffeine use, averag e drinks per day no Corinne Dexter passive cigarette sm kelvin exposure no Corinne Dexter smoking status Never smoker Corinne Ana s social history E&M Marital Statu s: / L sharita alone E thnicity: Smoking History: P atlong has never smoked. Hugo Ordoñez MD social history reviewed E&M revi ewed - no changes required Hugo Ordoñez MD seatbelt usage 100 % Denise Da Silva varun physical exercise, frequency, days per week yes Denise French caffeine use, averag e drinks per day no Denise French passive cigarette sm kelvin exposure no Denise French smoking status Never smoker Denise Rekha bond seatbelt usage 100 % Va Chris physical exercise, frequency, days per week yes Va White Swan caffeine use, averag e drinks per day no Va [place] passive cigarette sm kelvin exposure no Va [...] Cummings NP seatbelt usage 100 % Denise Stor ey physical exercise, frequency, days per week yes Denise Yusufy caffeine use, averag e drinks per day no Denise French passive cigarette sm kelvin exposure no Denise French smoking status Never smoker Denise Da Silva ey number of grandchildren Jean Claude Durga Yang social history E&M Marital Statu s: / L sharita alone E thnicity: Smoking History: P shahab has never smoked. Jean Claude Calixto DO social history reviewed E&M revi ewed - [...] Joslyn juan smoking status Never smoker Yo Mayberry ros social history E&M Marital Statu s: / L sharita alone E thnicity: Smoking History: Carloine gudino has never smoked. Yo Mayberrynacho social history reviewed E&M revi ewed - no changes required Yo Mayberrynacho seatbelt usage 100 % Mary Nelson physical [...] Hugo Ordoñez MD seatbelt usage 100 % [employer] physical exercise, frequency, days per week yes Sania Block caffeine use, averag e drinks per day no Sania Block passive cigarette sm kelvin exposure no Sania Block smoking status Never smoker Sania Bloc k social history E&M Marital Statu s: / L sharita alone E thnicity: Smoking History: Caroline gudino has never smoked. Hugo Ordoñez MD social history reviewed E&M revi ewed - no changes required Hugo Ordoñez MD seatbelt usage 100 % [employer] physical exercise, frequency, days per week yes Sania Block caffeine use, averag e drinks per day no Sania Block passive cigarette sm kelvin exposure no Sania Block smoking status Never smoker Sania Bloc k smoking status Never smoker Yo Mayberry ros social history E&M Marital Statu s: / L sharita alone E thnicity: Smoking History: Caroline gudino has never smoked. Yo Mayberrynacho social history reviewed E&M revi ewed - no changes required Yo Mayberrynacho seatbelt usage 100 % Va Chris physical exercise, frequency, days per week yes Va [facility] Swan caffeine use, averag e drinks per day no Va [place] passive cigarette sm kelvin exposure no Va [facility] social history reviewed E&M revi ewed - no changes required Celestine Cam seatbelt usage 100 % Tonsha Hensley physical exercise, frequency, days per week yes Tonsha Hensley caffeine use, averag e drinks per day no Tonsha Hensley passive cigarette sm kelvin exposure no Tonsha Hensley smoking status [facility] E&M revi ewed - no changes required Celestine Cam social history reviewed E&M revi ewed - no changes required [facility] social history E&M Marital Statu s: / L sharita alone E thnicity: Smoking History: Caroline gudino has never smoked. Hugo Ordoñez MD social history reviewed E&M revi ewed - no changes required Hugo Ordoñez MD seatbelt usage 100 % [facility], frequency, days per week yes Tons Hensley caffeine use, averag e drinks per day no [facility] passive cigarette sm kelvin exposure no Tonsha Hensley smoking status Never [facility]oker [facility] reviewed E&M revi ewed - [...] Hugo Ordoñez MD seatbelt usage 100 % [facility], frequency, days per week yes [facility] use, averag e drinks per day no [facility] passive cigarette sm kelvin exposure no [facility] Never smoker [facility] social history E&M Marital Statu s: / L sharita alone E thnicity: Smoking History: P shahab has never smoked. Tab Taylor MD smoking [...] Velma Rodriguez smoking status Never smoker Velma Stefani Guzman [...] Warren smoking status Never smoker Sania borden seatbelt usage 100 % Velma Guzman physical [...] Ordoñez MD seatbelt usage 100 % Sania OkCopay physical exercise, frequency, days per week yes [facility] caffeine use, averag e drinks per day no Sania Briana passive cigarette sm kelvin exposure no Sania Briana smoking status Never smoker [facility] social history E&M Marital Statu [...] Celestine Levy seatbelt usage 100 % Velma Gonzalese physical exercise, frequency, days per week yes [...] Smoking History: P atlong has never smoked. [place] seatbelt usage 100 % Kendra torres physical exercise, frequency, days per week yes Kendra Gordon alcohol use, average drinks per day none Kendra Gordon alcohol use no Kendra Jernigan lder caffeine use, averag e drinks per day no Kendra Delgadoer drug use none Kendra Jernigan lder passive cigarette sm kelvin exposure no Kendra Delgadoer smoking status Never smoker Kendra browner social history E&M Marital Statu s: / [...] number of grandchildren Hugo Ordoñez MD Va Castilloby seatbelt usage 100 % Va Chris physical exercise, frequency, days per week yes Va Chris alcohol use, average drinks per day none Va Chris alcohol use no [facility] [place] caffeine use, averag e drinks per day no [facility] [place] drug use none Va [place] passive cigarette sm kelvin exposure no Va Chris smoking status Never smoker [facility] [place] social history reviewed E&M revi ewed - no changes required Rodo Berg MD number of grandchildren Rodo Portery [place] social history reviewed E&M revi ewed - no changes required Rodo Berg MD seatbelt usage 100 % Rbianna Larry physical exercise, frequency, days per week [...] Ordoñez MD number of grandchildren Hugo Perez social history reviewed E&M revi ewed - no changes required Hugo Ordoñez MD seatbelt usage 100 % Brianna Larry physical exercise, frequency, days per week yes Brianna Larry alcohol use, average drinks per day none Brianna Larry alcohol use no Brianna Larry caffeine use, averag e drinks per day no Brianna Larry drug use none Brianna Juarez passive cigarette sm kelvin exposure no Brianna Juarez smoking status Never smoker Brianna Juarez social history reviewed E&M revi ewed - no changes required Genaro Jane MD seatbelt usage 100 % Brianna Juarez physical exercise, frequency, days per week yes Brianna Juarez alcohol use, average drinks per day none Brianna Juarez alcohol use no Brianna Larry caffeine use, [...] Ordoñez MD smoking status Never smoker Mary Sorensenjacey social history reviewed E&M reviewed Hugo Ordoñez [...] physical exercise, frequency, days per week yes [facility] caffeine use, averag e drinks per day no [facility] alcohol use, average drinks per day none [facility] smoking status Non-smoker [facility] MENTAL STATUS Date Observation Value Provider assessment [...] Payer name Policy type / Coverage type [place] red democrat ID [facility] [id number] [place] MED[place]ARE PART B Medicare [id number] ADVANCE DIRECTIVES Name Date DISCUSSED - NO DECISION MADE TREATMENT PLAN Date Name Performer [id number],S, Hugo uriarte MD [id number],SHugo MD [id number],S, Hugo uriarte MD [id number],S, Hugo uriarte MD [id number],SHugo MD [id number],S, Hugo uriarte MD [id number],SHugo MD [id number],B, Hugo uriarte MD [id number],S, Hugo uriarte MD [id number],S, Hugo Ramada n [place] [id number],S, Hugo Ramada n [place] [id number],B, Hugo Ramada n NE [id number],S, Hugo Ramada n NE [id number],B, Hugo Ramada n NE [id number],S, Hugo Ramada n [place] [id number],S, Hugo Ramada n NE [id number],B, Hugo Ramada n NE [id number],S, Hugo Ramada n NE [id number],S, Hugo Ramada n [place] [id number],S, Hugo Ramada n NE [id number],S, Hugo Ramada n [place] [id number],S, Hugo Ramada n [place] [id number],S, Hugo Ramada n NE [id number],S, Hugo Ramada n NE [id number],S, Hugo Ramada n NE [id number],S, Hugo Ramada n [place] [id number],S, Hugo Ramada n NE [id number],S, Hugo Ramada n [place] [id number],S, Hugo Ramada n NE [id number],S, Hugo Ramada n NE [id number],S, Hugo Ramada n NE [id number],S, Hugo Ramada kalani [place] [id number],S, Hugo Henson n NE [id number],S, Hugo Silverioalana n NE [id number],S, Hugo Silverioalana n NE [id number],S, Hugo Natividad uriarte NE [id number],S, Hugo Natividad uriarte [place] [id number],S, Hugoshad Silverioalana uriarte [place] [id number],B,S teroids improved pain. Lab shows systemic inflammation. Hugo Ordoñez MD [id number],S, Hugo Natividad uriarte MD [id number],S, Hugo Natividad uriarte MD [id number],S, Hugo Natividad uriarte NE [id number],B, Hugo Natividad uriarte NE [id number],S, Hugoshad Silverioalana uriarte NE [id number],S, Hugoshad Silverioalana uriarte NE [id number],B, Hugo Natividad uriarte NE [id number],S, Hugo Natividad uriarte [place] [id number],S, Hugoshad Silverioalana uriarte NE [id number],S, Hugoshad Silverioalana uriarte NE [id number],S, Hugo Natividad uriarte [place] [id number],S, Hugo Natividad uriarte NE [id number],B,R 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 Hugo Ordoñez MD [id number],S, Hugo uriarte MD [id number],S, Hugo uriarte MD [id number],S, Hugo uriarte MD [id number],S, Hugo uriarte MD [id number],S, Hugo uriarte MD [id number],S, Hugo uriarte MD [id number],B, Hugo uriarte MD [id number],S, Hugo uriarte MD [id number],B, Hugo uriarte MD [id number],W,S eems pacer related. Will replace RV lead with a septal implant and try to remove old lead. Hugo Ordoñez MD [id number],S, Hugo uriarte MD [id number],B, Hugo uriarte MD [id number],S, Hugo uriarte MD [facility] Malina Blood Take your [...] Ordoñez MD Cardiology Hugo Ordoñez MD Cardiology: S /P PPM. S/P AV madai ablation. N ow having sternal pain that is causing great discomfort. Will get chest x-ray and schedule lead removal replacement/repositioning. T his visit has been a part of the consistent, comprehensive, and ongoing management of the chronic medical condition(s) listed above for the patient. Hugo Ordoñez MD Cardiology:No proble m with device following accident D evice dependent r a 51%, rv 100% device functioning appropiately. No at/af burden. Hugo Ordoñez MD Cardiology Hugo Ordoñez MD [...] off AC c ontinue following with Glendy Monroy Cardiology:Device de pendent r a 51%, rv 100% device functioning appropiately. No at/af burden. Mario Monroy Cardiology:ra 51%, r v 100% device functioning appropiately. No at/af burden. Oh Celestin DNP,TRANSPORTATION ESCORT Cardiology:Amulet in position on MARYSOL in march. Of warfarin and plavix. Device check reveals no AT/AF burden from ppm. W ILL NEED TO BE ON ABX FOR SBE PROPHYLAXIS INDEFINITELY WITH AMLET DEVICE IN THE LAAO H PCN ALLERGY HAS PROCEDURE FOR BLADDER SLING DONE AT [facility] W/ JESSICA UROLOGIST O K TO CONTINUE ON ASPRIRIN C LINDAMYCIN DOSE IS 600MG 30-60MIN BEFORE PROCEDURE FOR IE PROPHYLAXIS Oh Celestin DNP,TRANSPORTATION ESCORT Cardiology Hugo Ordoñez MD Cardiology Hugo Ordoñez MD Cardiology Hugo Ordoñez MD Cardiology Hugo Ordoñze MD Cardiology Hugo Ordoñez MD Cardiology:Latest ep [...] Hugo Ordoñez MD Cardiology Hugo Ordñoez MD Cardiology:On OAC Eliana Nallur i SCENE SHIFTER Cardiology:Mild sob with exertio n Eliana Nalluri SCENE SHIFTER Cardiology:None Eliana Nalluri SCENE SHIFTER Cardiology:EF 70% Her updated medication list for [...] 3 tabs seek medical attention Eliana Nalluri SCENE SHIFTER Cardiology: H er updated medication list for this problem includes: Rosuvastatin 40 Mg Tablet (Rosuvastatin) ..... Take 1 tablet by mouth once a day Eliana Nalluri SCENE SHIFTER Cardiology:AT episod e on 10/10/23 for 4m 30s, EGM appears t o show PAT. On warfarin for OAC Eliana Leahyluri SCENE SHIFTER Cardiology:s/p PPM Eliana Boswell ri SCENE SHIFTER Cardiology:RA 91%, R V 100% b attery 60% Eliana Leahyluri SCENE SHIFTER Cardiology: W as recently in the hospital c/o heaviness in her chest . Normal EKG, stress test and echo h ad on eepisode of chest pain since dischrged from hospital, relieved with nitro Eliana Leahyluri SCENE SHIFTER Cardiology:Bp stable today Selene Boswellri SCENE SHIFTER Telehealth Lele Brown Telehealth Lele Brown Telehealth:complains [...] PPM if her symptoms fail to resolve. [id number] appears to be ST 120-130's, AsVP, 100% RV paced, Metoprolol increased to 50mg BID, much improved symptoms since these changes Linda Scott NP Electrophysiology Fo llow up : i nterrogation today 0% AF burden Linda Scott NP Electrophysiology Fo llow up :[id number], appears to be ST, 120-130's rate, AsVp, [...] (Metoprolol tartrate) ..... 1 po bid Linda Scott NP Cardiology Hugo Ordoñez MD Cardiology Hugo Ordoñez MD Cardiology Hugo Ordoñez MD Cardiology Hugo Ordoñez MD Cardiology:Non=cardiac Hugo elwis MD Cardiology Hugo Ordoñez MD Electrophysiology- N P:interrogation today: ST 120's. longeset 7 1/2 mins. total 131 episodes oLri Schwabjennifer SCOTT Electrophysiology- N P:pt reports intermittent palpitations interrogation today: ST 120's. longeset 7 1/2 mins. total 131 episodes Lori Cummings SONIA Electrophysiology- N P:interrogation today: ST 120's. longeset [...] if her symptoms fail to resolve. Lori Gilbertveronica SCOTT Electrophysiology- N P:interrogation today 0% AF burden Lori Gilbertveronica SCOTT Electrophysiology- N P:interrogation today: [...] if her symptoms fail to resolve. Lori Gilbertrenettajennifer SCENE SHIFTER Electrophysiology: N ormal cath 04/16/2020 complicated by hematoma to right groin. Sheath induced radial artery spasm noted. H as been using Nitro. Jean Claude Calixto DO Electrophysiology:Wo uld consider the addition of catapress both for RSD and also IST if symptoms refractory. Jean Claude Durga ALCANTAR Electrophysiology:No rmal function P PM reprogrammed for max track of 160bpm in DDD mode. If she does not respond to this, I would consider programming DDI-R. It is possible that she may require the addition of an LV lead with a BiV PPM if her symptoms fail to resolve. Jean Claude Calixto DO Electrophysiology:Konstantin castaneda had symptoms of what appears [...] of complete heart block during reprogramming. Yo Pina Electrophysiology:No rmal cath complicated by hematoma to right groin. Sheath induced radial artery spasm noted. H as been using Nitro. Yo Heller Electrophysiology:Un derwent AV node ablation 12/2019 with prior DC PPM implant 06/2019. P resented to [facility] 03/2020 and was told by Health Safety Instructor there she was having SVT . S [...] do heart cath first. Hugo Ordoñez MD Electrophysiology:Konstantin lilly severe episode of CP on Thursday. EMS administered NTG. C ontinues to complain of exertional chest discomfort. Yo Heller Electrophysiology:Li pid panel 03/2020 CHOL 195, Trig 213, HDL 37, CLV505. L ipoprotein 119.7 A polipoprotein B 114 Yo Heller Electrophysiology:Un derwent AV node ablation 12/2019 with prior DC PPM implant 06/2019. H ospitalized at [place] and was told by Health Safety Instructor there she was having SVT . S [...] Mode switch 160, switch to DDIR. Yo Pina Electrophysiology:s/ p AV node ablation 12/2019. Her [...] One tab by mouth daily Celestine Levy Cardiology Celestine Levy Cardiology: H er updated medication list for this problem includes: Warfarin Sodium 5 Mg Tablet (Warfarin sodium) ..... Take 1 tablet by mouth starting 7 days prior to procedure Aspirin Adult Low Dose 81 Mg Oral Tablet Delayed Release (Aspirin) ..... One tab by mouth daily [facility] Cardiology: H er updated medication list for this problem includes: Warfarin Sodium 5 Mg Tablet (Warfarin sodium) ..... Take 1 tablet by mouth starting 7 days prior to procedure Aspirin Adult Low Dose 81 Mg Oral Tablet Delayed Release (Aspirin) ..... One tab by mouth daily [facility] TeleHealth: H er updated medication list for this problem includes: Warfarin Sodium 5 Mg Oral Tablet (Warfarin sodium) ..... One tab by mouth starting 7 days prior to procedure Aspirin Adult Low Dose 81 Mg Oral Tablet Delayed Release (Aspirin) ..... One tab by mouth daily [facility] TeleHealth: H er updated medication list for this problem includes: Warfarin Sodium 5 Mg Oral Tablet (Warfarin sodium) ..... One tab by mouth starting 7 days prior to procedure Aspirin Adult Low Dose 81 Mg Oral Tablet Delayed Release (Aspirin) ..... One tab by mouth daily [facility] TeleHealth: H er updated medication list for this problem includes: Warfarin Sodium 5 Mg Oral Tablet (Warfarin sodium) ..... One tab by mouth starting 7 days prior to procedure Aspirin Adult Low Dose 81 Mg Oral Tablet Delayed Release (Aspirin) ..... One tab by mouth daily [facility] TeleHealth:Reschedul e AV node ablation with carto and anesthesia after December 23, No need for CT [facility] TeleHealth: H er updated medication list for this problem includes: Aspirin Adult Low Dose 81 Mg Oral Tablet Delayed Release (Aspirin) ..... One tab by mouth daily [facility] TeleHealth: H er updated medication list for this problem includes: Aspirin Adult Low Dose 81 Mg Oral Tablet Delayed Release (Aspirin) ..... One tab by mouth daily [facility] TeleHealth [facility] TeleHealth: H er updated medication list for this problem includes: Aspirin Adult Low Dose 81 Mg Oral Tablet Delayed Release (Aspirin) ..... One tab by mouth daily [facility] TeleHealth:No episod es reported for this session. I CM trend is stable. [facility] Cardiology Hugo Ordoñez MD Cardiology Hugo Ordoñez [...] Dr. Ordoñez to do PPM implant at [facility] for sinus node dysfunction. The following medications [...] tab by mouth daily Celestine Levy Electrophysiology [facility] Electrophysiology:Re mote Transmission: N o episodes or [...] Hugo Ordoñez MD Cardiology-seen with MD and SCENE SHIFTER Maxime DOBBINS Cardiology-seen with MD and SCENE SHIFTER : none noted on ILR Dionne WHITEHEADP Cardiology-seen with MD and SCENE SHIFTER :Pt remains symptomatic with tachycardia interfering with [...] One tab by mouth daily Dionne Gamboa [facility] Cardiology:well heal ing scar a vised pt to apply ice pack on incision site. Celestine Levy Electrophysiology:IL R implantation O rders: E KG (CPT-22967) 9 9213 LTD. Complex (CPT-05569) 6 minute walk test (CPT-35437) Her updated medication list for this problem includes: Metoprolol Tartrate 25 Mg Oral Tablet (Metoprolol tartrate) ..... One tab. twice daily Aspirin Adult Low Dose 81 Mg Oral Tablet Delayed Release (Aspirin) ..... One tab by mouth daily Tab Taylor MD Electrophysiology: O rders: 9 9213 LTD. Complex (CPT-13570) 6 minute walk test (CPT-81425) L oop Rec Implant - [facility] (*) Her updated medication list for this problem includes: Metoprolol Tartrate 25 Mg Oral Tablet (Metoprolol tartrate) ..... One tab. twice daily Aspirin Adult Low Dose 81 Mg Oral Tablet Delayed Release (Aspirin) ..... One tab by mouth daily Tab Taylor MD Electrophysiology: O rders: 9 9213 LTD. Complex (CPT-49070) 6 minute walk test (CPT-22372) L oop Rec Implant - [facility] (*) Her updated medication list for this problem includes: Metoprolol Tartrate 25 Mg Oral Tablet (Metoprolol tartrate) ..... One tab. twice daily Aspirin Adult Low Dose 81 Mg Oral Tablet Delayed Release (Aspirin) ..... One tab by mouth daily Tab Taylor MD Electrophysiology:IL R implantation at [facility] with Dr. Tiago garcia evaluate ILR after [...] a day. Orders: 9 9214 MOD Complex (CPT-38728) B ASIC METABOLIC PANEL W/EGFR (09828) D -DIMER, QUANTITATIVE (8659) D -DIMER, QUANTITATIVE (8659) M obile Cardiac Tele (CPT-48742) Celestine Levy Cardiology Tab castaneda MD Cardiology: [...] a day. Tab Taylor MD [facility]rophysiology [facility]: H er updated medication list for [...] One half tablet twice a day. Cam [facility] Electrophysiology [facility] Electrophysiology: nuclear stress test Summary 1 . Normal myocardial perfusion imaging after vasodilator stress with Regadenoson. 2 . Normal left ventricular systolic function with a calculated ejection fraction of 75%. 3 . No obvious significant scintigraphic evidence of myocardial ischemia or scar. 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 Tab [...] tablet twice a day. Orders: E KG (CPT-23868) 9 9219 HIGH Complex (CPT-44423) A BLATION w/ Anesthesia (*) M obile Cardiac Tele (CPT-96341) [facility] Electrophysiology Ne w Patient : O rders: E KG (CPT-95956) 9 9215 HIGH Complex (CPT-09489) A BLATION w/ Anesthesia (*) Her updated [...] Ordoñez MD Cardiology Hugo Ordoñez MD Cardiology Hguo Ordoñez MD Cardiology [...] Cardiology Hugo Ordoñez MD Cardiology:Doing well on corlano r. Hugo Ordoñez MD Cardiology Hugo Tiago BRYANT Cardiology Hugo Ordoñez MD Cardiology Hugo Tiago BRYANT Cardiology Hugo Jean Claudeadakalani BRYANT Cardiology Hugo Tiago BRYANT Cardiology Hugo Ordoñez MD Cardiology Hugo Ordoñez MD Cardiology Hugo Tiago BRYANT Cardiology Hugo Tiago BRYANT Cardiology Hugo Ramdebbie BRYANT Cardiology Genaro Lilly Cardiology Genaro Lilly Cardiology Genaro Lilly Cardiology Genaro Lilly Cardiology Genaro Lilly Cardiology Hugo Ordoñez MD Cardiology Hugo Ordoñez MD Cardiology Hugo Ordoñez MD Cardiology Hugo Ordoñez MD Cardiology Hugo Tiago BRYANT Cardiology Hugo Tiago BRYANT Cardiology Hugo Tiago BRYANT Cardiology Hugo Ordoñez MD Cardiology Hugo Tiago BRYANT Cardiology:Has clot on IVC filte r. On coumadin Hugo Ordoñez MD F/U Hugo Ordoñez MD F/U Hugo Ordoñez MD F/U Hugo Ordoñez MD F/U Hugo Ordoñez MD follow up : O rders: E KG (CPT-03451) BP today: 140/96 Prior BP: 136/92 (02/28/2013) [...] ..... Three times daily Orders: E KG (CPT-91003) BP today: 121/86 Prior BP: 127/88 (10/20/2011) [...] MD : O rders: C omplete Echo (CPT-68392) S tress Test - Adenosine (26759) Hugo Ordoñez MD : O rders: C omplete Echo (CPT-15162) Hugo Ordoñez MD : O rders: S tress Test - Adenosine (54554) E vent Recorder (*) BP today: 86/60 Prior BP: / () Hugo Ordoñez MD Date Name X-Ray, Chest 2 View X-Ray, Chest 2 View URINALYSIS, COMPLETE W/REFLEX [...] Ordoñez MD complete d EKG Jean Claude Gove DO comple jaden EKG Jean Claude Gove DO comple jaden EKG Jean Claude Gove DO comple jaden EKG Hugo Ordoñez MD complete d EKG Tab Taylor MD comp leted EKG Hugo Ordoñez MD complete d Schedule Followup Tab Taylor MD in 1 yea r completed EKG Tab Taylor MD comp leted each additional 20 minutes, up to 2 times Hugo Ordoñez MD completed EKG Tab Taylor MD comp leted Willian Le MD complete d EKG Tab Taylor MD comp leted EKG Tab Taylor MD comp leted EKG Tab Taylor MD comp leted EKG Hugo Ordoñez MD complete d EKG Tab Taylor MD comp leted EKG Tab Taylor MD comp leted 6 minute walk test Tab Taylor MD completed EKG Tab Taylor MD comp leted Holter, 24 or 48 Hugo Ordoñez MD co mpleted EKG Hugo Ordoñez MD complete d EKG Hugo Ordoñez MD complete d Mobile Card[facility] Telem etry - Tech Tab Taylor MD completed Mobile Cardiac Telem etry - Prof Tab Taylor MD completed EKG Tab Taylor MD comp leted Protime Yonathan Bernard MD complet ed Schedule Followup Tab Taylor MD in 6 mo completed Mobile Cardiac Telem etry - Tech Hugo Ordoñez MD completed Mobile Cardiac Telem etry - Prof Hugo Ordoñez MD completed EKG Tab Taylor MD comp leted Stress EKG Yonathan Bernard MD complet ed Regadenoson, 4 units Yonathan Bernard MD completed Cardiolite, 2 units Yonathan Bernard MD completed SPECT Images Yonathan Bernard MD compl eted EKG Hugo Ordoñez MD complete d SNOMED-CT: 749577986525309 Current Medications Documented Hugo Ordoñez MD completed SNOMED-CT: 284839565323744 Current Medications Documented Hugo Ordoñez MD completed EKG Rodo Berg MD comp leted SNOMED-CT: 824732992391298 Current Medications Documented Rodo Berg MD completed EKG Rodo Begr MD comp leted SNOMED-CT: 071759393356663 Current Medications Documented Rodo Berg MD completed SNOMED-CT: 794139775674173 Current Medications Documented Hugo Ordoñez MD completed EKG Hugo Ordoñez MD complete d SNOMED-CT: 174265208518976 Current Medications Documented Hugo Ordoñez MD completed EKG Rodo Berg MD comp leted SNOMED-CT: 185239564833819 Current Medications Documented Rodo Berg MD completed SNOMED-CT: 089487465315940 Current Medications Documented Hugo Ordoñez MD completed Event Monitor Luis M Pagan completed Stress EKG Yonathan Bernard MD complet ed Regadenoson, 4 units Yonathan Bernard MD completed Cardiolite, 2 units Yonathan Bernard MD completed SPECT Images Yonathan Bernard MD compl eted SNOMED-CT: 848016990246019 Current Medications Documented Hugo Ordoñez MD completed Ambulatory BP Genaro Jane MD comp leted Ambulatory BP Genaro Jane MD comp leted EKG Genaro Jane MD complet ed SNOMED-CT: 796046193988703 Current Medications Documented Genaro Jane MD completed EKG Hugo Ordoñez MD complete d SNOMED-CT: 170317036124897 Current Medications Documented Hugo Ordoñez MD completed EKG Hugo Ordoñez MD complete d EKG Hugo Ordoñez MD complete d
--- OUTSIDE RECORDS SUMMARY | 2024-10-11 13:29 | XMS_ITS | Encounter Summary ---
Author Organization [facility] Healthcare Address [address] [place] [address] Care Team Providers Care Community Program Assistant Name Role Phone Tom Paz MD Primary Care Provider [phone] Tab Taylor MD Unavailable [phone] Favian Caceres MD Unavailable [phone] Encounter Details Date Type Department Care Team (Late st Contact Info) Description 02/11/2024 Documentation [facility] Case Management [address] [place] [address] Gaviota Benz RN Social History Tobacco Use Types Packs/Day Years Used Date Smoking Tobacco: Never Passive Smoke Exposure: Past Smokeless Tobacco: Never Alcohol Use Standard Drinks/Week Comments No 0 (1 standard drink = 0.6 oz pur e alcohol) [facility] Utilities Answer Date Recorded In the past 12 months has [employer], gas, oil, or water [employer] threatened to shut off services in your [...] How often do you attend chur or yazidism services? 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 [address] [id number] [place], [place] - [address] [facility] [address] [facility] [address] [facility] - [place], [place] - [address] [facility] [address] [facility] [address] [place], [place] - [address] [facility] [address] [facility] [address] Primary Care Provider: Tom Paz MD Prior to Admission: Functional Status: Minimal assist with ADLs Primary Caregiver: Private caregiver Support System: Children, Friends/neighbors (Son: Porter Serrano [phone]/Friend: Federico [phone]) Home Care Services: Yes Type of Home Care Services: workers compensation paralegal (workers compensation paralegal 5 days per week, 5-6.25 hour per [...] homeless or living in a custodial (including now)?: No (02/11/24 1634) Utilities: Yes (SW Consult), (02/11/24 1635) Social Connections: In a typical week, how many times do you talk on the phone with family, friends, or neighbors?: Once a week How often do you get together with friends or relatives?: Once a week How often do you attend latter day or yazidism services?: More than 4 times per year Do you belong to any clubs or organizations such as latter day groups, unions, fraternal or athletic groups, or [...] reports needing assistance with ADLs. Has a beam worker and has a quad cane and [...] Collaboration with Patient, Provider, Direct Care Nurse, Transportation Planner, and other members of theHealth Care Team to assure needed interventions completed. 2. Return patient to optimal level of self-care post discharge. 3. Machine Maintenance Repairer will follow for Discharge Planning - interventions as needed 4. Anticipated level of care at discharge 5. Planned Discharge Disposition SONALI Brothers, RN strategic communications manager [phone] documented in this encounter Plan of Treatment [...] stairs Contact your local community or senior [place] for information on exercise, fall prevention programs, or options for improving home safety. documented as of this encounter Visit Diagnoses Not on filedocumented in this encounter Care Teams Community Program Assistant Relationship Specialty Start Date End Date Tom Paz MD PCP - General 09/09/16 Tab Taylor MD [address] [place] [address] Consulting Physician Cardiology 01/03/20 Favian Caceres MD [address] [place] [address] Consulting Physician Rheumatology 08/28/23 documented as of this encounter
--- OUTSIDE RECORDS SUMMARY | 2024-10-11 13:29 | XMS_ITS | Continuity of Care Document ---
Author Organization [facility] Address [address] [facility] [address] [place] [address] Phone Care Team Providers Care Secretary To Board Of Commissioners Name Role Phone Nayely OD OD, Denise [...] EST REFRACTION Medicare OFFICE/OUTPATIENT VISIT, EST REFRACTION [facility] OFFICE/OUTPATIENT VISIT, EST OFFICE/OUTPATIENT VISIT, EST REFRACTION [facility] OFFICE/OUTPATIENT VISIT, EST REFRACTION MEDICARE [...] OFFICE/OUTPA TIENT VISIT, EST [facility], [address] [address] [address], [place], [place], [id number], [place] tel:[phone] [facility] flash of light OS (chief complaint) Age-related nuclear cataract, bilateralTear film insufficiency of bilateral lacrimal glandsOther vitreous opacities, bilateral Aug-0 5 Derheimer OD Denise. [address], [place], [place], [id number], [place]. tel:[phone] Referring Provider: Tom Sapp, [address], [place], [address]. tel:[phone] OFFICE/OUTPA TIENT VISIT, EST [facility], [address] [place] [address], [id number], [place] tel:[phone] [facility] Pain OS (chief complaint) Left eye painAge-relat ed nuclear cataract, bilateralOthe r vitreous opacities, bilateralTear film insufficiency of bilateral lacrimal glands Apr-0 4-202 4 Krishnasamy Anthony. [address], [place], [place], [id number], [place]. tel:[phone] Referring Provider: Tom Sapp, [address], [place], [address]. tel:[phone] OFFICE/OUTPA TIENT VISIT, EST [facility], [address] [place] [address], [id number], [place] tel:[phone] [facility] blurry vision (chief complaint) Age-related nuclear cataract, bilateralTear film insufficiency of bilateral lacrimal glandsOther vitreous opacities, bilateralDipl opiaHypermetr opia, bilateral Oct-2 4-202 3 Krishnasamy Anthony. [address], [address], [place], [place], [id number], [place]. tel:[phone] Referring Provider: Tom Sapp, [address], [place], [address]. tel:[phone] OFFICE/OUTPA TIENT VISIT, EST [facility], [address] [place] [address], [id number], [place] tel:[phone] [facility] blurry [place] (chief complaint) Tear film insufficiency of bilateral lacrimal glandsOther vitreous opacities, bilateralAge- related nuclear cataract, bilateralDipl opiaHypermetr opia, bilateral Mar-1 0-202 2 Krishnasamy Anthony. [address], [place], [place], [id number], [place]. tel:[phone] Referring Provider: Tom Sapp, [address], [place], [address]. tel:[phone] OFFICE/OUTPA TIENT VISIT, EST [facility], [address] [place] [address], [id number], [place] tel:[phone] [facility] shingles (chief complaint) Herpes zoster without complicationT ear film insufficiency of bilateral lacrimal glands Apr- 1 Krishnasamy Anthony. [address], [place], [place], [id number], [place]. tel:[phone] Referring Provider: Tom Sapp, [address], [place], [address]. tel:[phone] OFFICE/OUTPA TIENT VISIT, EST [facility], [address] [place] [address], [id number], [place] tel:[phone] [facility] blurry (chief complaint) DiplopiaAge-r elated nuclear cataract, bilateralTear film insufficiency of bilateral lacrimal glandsOther vitreous opacities, bilateralHype rmetropia, bilateral Nov- 9 Krishnasamy Anthony. [address], [address], [place], [place], [id number], [place]. tel:[phone] Referring Provider: Anthony Guiterrez, [address], [place], [address]. tel:[phone] OFFICE/OUTPA TIENT VISIT, EST [facility], [address] [place] [address], [id number], [place] tel:[phone] [facility] blurry vision (chief complaint) Tear film insufficiency of bilateral lacrimal glandsOther vitreous opacities, bilateralDipl opiaHypermetr opia of both eyes Oct-3 0- 8 Krishnasamy Anthony. [address], [address], [place], [place], [id number], [place]. tel:[phone] Referring Provider: Anthony Gutierrez, [address], [place], [address]. tel:[phone] OFFICE/OUTPA TIENT VISIT, EST [facility], [address] [place] [address], [id number], [place] tel:[phone] [facility] blurry vision (chief complaint) dry eyes (chief complaint) DiplopiaOther vitreous opacities, bilateralTear film insufficiency of bilateral lacrimal glandsHyperme tropia of both eyes Dec-2 7 7 Krishnasamy Anthony. [address], [address], [place], [place], [id number], [place]. tel:[phone] Referring Provider: Anthony Gutierrez, [address], [address]. tel:[phone] OFFICE/OUTPA TIENT VISIT, EST [facility], [address] [place] [address], [id number], tel:[phone] OPH CONSULT [facility] blurry vision (chief complaint) Reflex sympathetic dystrophy, unspecifiedTe ar film insufficiency , unspecifiedHy permetropia of both eyesOther vitreous opacities, bilateralDipl opia Oct-0 5-201 6 Krishnasamy Anthony. [address], [address], [place], [id number], [place]. tel:[phone] Referring Provider: Anthony Gutierrez, [address], [address]. tel:[phone] OFFICE/OUTPA TIENT VISIT, NEW [facility], [address] [place] [address], [id number], [place] tel:[phone] Oph Consult [facility] blurry vision (chief complaint) Hypermetropia Tear film insufficiency , unspecifiedOt her vitreous opacitiesDipl opiaReflex sympathetic dystrophy, unspecified Sep-2 8-201 5 Krishnasamy Anthony. [address], [address] [place], [place], [id number], [place]. tel:[phone] Referring Provider: Anthony Gutierrez, [address], [place], [address]. tel:[phone] OFFICE/OUTPA TIENT VISIT, EST [facility], [address] [place] [address], [place], [place], [id number], [place] tel:[phone] Oph Consult [facility] Office Tear film insufficiency , unspecifiedRe flex sympathetic dystrophy, unspecifiedOt her vitreous opacitiesHype rmetropiaDipl opia Feb- 4 Krishmargaret Anthony. [address], [address], [place], [place], [id number], [place]. tel:[phone] Referring Provider: Anthony Gutierrez, [address], [place], [address]. tel:[phone] OFFICE/OUTPA TIENT VISIT, EST [facility], [address] [place] [address], [place], [place], [id number], tel:[phone] Oph Consult [facility] Office Other vitreous opacitiesTear film insufficiency , unspecifiedDi plopiaHyperme tropia Mar- 3 Krishnasnina Anthony. [address], [address], [place], [place], [id number], [place]. tel:[phone] Referring Provider: Anthony Gutierrez, [address], [place], [address]. tel:[phone] OFFICE/OUTPA TIENT VISIT, EST [facility], [address] [place] [address], [id number], [place] tel:[phone] [facility] Tear film insufficiency , unspecifiedRe flex sympathetic dystrophy, unspecifiedDi plopiaHyperme tropia Sep- 3 Krishnasnina Anthony. [address], [address], [place], [place], [id number], [place]. tel:[phone] Referring Provider: Anthony Gutierrez [address], [place], [address]. tel:[phone] OFFICE/OUTPA TIENT VISIT, EST [facility], [address], [id number], tel:[phone] [facility] Tear film insufficiency , unspecifiedDi plopia 2 Brenda Cruz. [address], [address], [place], [id number], . tel:[phone] Referring Provider: Anthony Gutierrez, [address], [place], [address]. tel:[phone] OFFICE/OUTPA TIENT VISIT, NEW [facility], [address] [place] [address], [place], [place], [id number], tel:[phone] [facility] DiplopiaHeada cheHypermetro tierra 1 Brenda Cruz. [address], [place], [place], [id number], . tel:[phone] Family History Family Member Type Diagnosis Age At Onset Son Problem (finding) Lazy eye Payers Payer name Insurance type Covered green party ID Authorjosea tirin(s) [place] MB [id number] [place] [id number] Social History Type Description Quantity Date Captured [...] reports vision being blurry, she Dr Mariana Richadrson in 2 days for Rx with prism. [...] D&N. Pt saw Dr Nai Sotelo at [facility] for prism. 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 Patient will see Smita Rod Richardson (kitchen utility associate) @ [facility] for prisms/glasses. Related to Headaches Hyperopia, OU [...] +1.75+0.75x 082. Patient will see Smita Richardson (kitchen utility associate) @ [facility] 12/24/2010 for motility exam and measurements [...]
--- OUTSIDE RECORDS SUMMARY | 2024-10-11 13:29 | XMS_ITS | Encounter Summary ---
Author Organization [facility] Healthcare Address [address] [place] [address] Care Team Providers Care Painter And Decorator Apprentice Name Role Phone Tom Paz MD Primary Care Provider [phone] Tab Taylor MD Unavailable Favian Caceres MD Unavailable [phone] Reason for Visit * Reason Onset Date Comments Scheduling Appointments 04/15/2024 Schedule patient for Imaging Genicular RFA Right (36402) and 1m follow Encounter Details Date Type Department Care Team (Late st Contact Info) Description 04/15/2024 Telephone [facility] [address] [address], [address] [place] [address] Dougie Lord MD [address] [address] Scheduling Appointments (Schedule patient for Imaging Genicular RFA Right (87421) and 1m follow ) Social History Tobacco Use Types Packs/Day Years Used Date Smoking Tobacco: Never Passive Smoke Exposure: Past Smokeless Tobacco: Never Alcohol Use Standard Drinks/Week Comments No 0 (1 standard drink = 0.6 oz pur e alcohol) [facility] Utilities Answer Date Recorded In the past 12 months has [employer], gas, oil, or water company threatened [...] often do you attend chur ch or christianity services? More than 4 times per year 02/11/2024 Do you belong to any clubs o r organizations such as voodoo groups, unions, fraternal or athletic groups, or [...] place to sleep or slept in a mcc (including now)? No 11/02/2023 Housing Stability Vital Sign Answer Thang e Recorded In the last 12 months, was t here a time when you were not able to pay the mortgage or rent on time? No 02/11/2024 In the past 12 months, how m any times have you moved where you were living? 0 02/11/2024 At any time in the past 12 m [facility], were you homeless or living in a mcc (including now)? No 02/11/2024 Personal Safety Answer Date Recorded Have you ever been in or are you currently in a harmful physical or emotional relationship or is someone making you feel afraid or unsafe? 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
--- OUTSIDE RECORDS SUMMARY | 2024-10-11 13:30 | XMS_ITS | Referral Summary ---
Author Organization [facility] Address [address] [place] [address] Care Team Providers Care Workforce Management Analyst Name Role Phone Tom Paz MD Primary Care Provider [phone] Tab Taylor MD Unavailable Favian Caceres MD Unavailable Encounters Date Type Department Care Team Description 10/05/2024 Documentation Cardiology Sofiya Rosa NP 10/05/2024 12:04 PM CDT - 10/05/2024 11:59 PM CDT Hospital Encounter [facility] Radiology [address] [place] [address] Transient ischemic attack (TIA); Cerebrovascular disease, unspecified; Unspecified visual loss; Presence of cardiac pacemaker Discharge Disposition: Discharge to home or self care 10/05/2024 11:40 AM CDT - 10/05/2024 11:59 PM CDT Hospital Encounter [facility] Radiology [address] [place] [address] Encounter for imaging to screen for metal prior to magnetic resonance imaging (MRI) Discharge Disposition: Discharge to home or self care 10/05/2024 11:41 AM CDT - 10/05/2024 11:59 PM CDT Hospital Encounter [facility] Radiology [address] [place] [address] Discharge Disposition: Discharge to home or self care 09/02/[address] [facility] Dermatology [address] [place] [address] Va Maharaj Request Call Back 08/25/2024 7:24 AM STITCHDOWN THREAD LASTER - 08/25/2024 11:59 PM STITCHDOWN THREAD LASTER Hospital Encounter [facility] Radiology [address] [place] [address] Transient ischemic attack (TIA); Cerebrovascular disease, unspecified; Unspecified visual loss; Presence of cardiac pacemaker Discharge Disposition: Discharge to home or self care 08/25/2024 Orders Only [facility] Radiology [address] [place] [address] Katarzyna Gil RT 08/23/2024 12:12 PM STITCHDOWN THREAD LASTER - 08/23/2024 11:59 PM STITCHDOWN THREAD LASTER Hospital Encounter [facility] [address] [place] [address] Pacemaker reprogramming/check ; Complete heart block (HCC) Discharge Disposition: Discharge to home or self care 08/23/2024 11:30 AM STITCHDOWN THREAD LASTER Office Visit [facility] Cardiology [address] [place] [address] 8th [place] [address] [place] [address] Elise Ibarra NP Pacemaker reprogramming/check (Primary Dx); Complete heart block (HCC) 08/23/2024 11:00 AM STITCHDOWN THREAD LASTER Ancillary Procedure [facility] Cardiology [address] [place] [address] 8th [place] [address] [place] [address] Pacemaker reprogramming/check 08/23/[address] [facility] Cardiology [address] [place] [address] 8th [place] [address] [place] [address] Elise Ibarra, SONIA Pacemaker reprogramming/check (Primary Dx) 08/02/2024 12:30 PM STITCHDOWN THREAD LASTER - 08/02/2024 1:30 PM STITCHDOWN THREAD LASTER Surgery [address] [place] [address] Trey Arroyo MD COLON BIOPSY 08/02/2024 1:07 PM STITCHDOWN THREAD LASTER Anesthesia Event [facility] [address] [address] Rui Fuller MD McGowan, Jessica Lynn, NP 08/02/2024 11:02 AM STITCHDOWN THREAD LASTER - 08/02/2024 3:29 PM STITCHDOWN THREAD LASTER Hospital Encounter [facility] [address] [address] Trey Arroyo MD Dysphagia, unspecified type; Dyspepsia; Diarrhea, unspecified type Discharge Disposition: Discharge to home or self care 07/28/2024 10:30 AM STITCHDOWN THREAD LASTER Office Visit [facility] [address] [place] [phone] Claudia Cristobal PA Seronegative rheumatoid arthritis (HCC) (Primary Dx); Encounter for long-term (current) use of high-risk medication 07/26/2024 Telephone [facility] [address] [place] [phone] Sarina Posey RN GI PROCEDURE 7 DAY PRE CALL 07/26/2024 Orders Only [facility] Health Information Management 1 [place] [address] Scanning, Provider 07/14/2024 10:30 AM STITCHDOWN THREAD LASTER Pre-Admission Testing [facility] Center for Preoperative Assessment and Planning [facility] [address] [place] [address] from Last 3 Months Allergies Active Allergy [...] - blisters Etanercept Itching Low 02/24/2022 Gum [place] Unknown 05/12/2023 Gum Kzykqn-Lysiib-Dwgn-Alcoho l Blisters,Rash High 12/17/2021 Mastisol - blisters [...] total) by mouth nightly 30 capsule 04/25/20 20 Active metoprolol tartrate (LOPRESSOR) 50 [...] 02/07/2021 Assessment & Plan (07/28/2024 11:19 AM STITCHDOWN THREAD LASTER): Monitor routine labs while on immunosuppressive medications. [...] [employer] Assessment & Plan (09/22/2023 12:26 PM STITCHDOWN THREAD LASTER): Monitor routine labs while on immunosuppressive medications. [...] [employer] Assessment & Plan (09/11/2022 12:48 PM STITCHDOWN THREAD LASTER): Monitor routine labs while on immunosuppressive medications. Recent 08/20 labs stable. 06/2020: Neg Hep B/C 03/2021: Neg [employer]Gold Assessment & Plan (07/01/2022 9:25 AM STITCHDOWN THREAD LASTER): Monitor routine labs while on immunosuppressive medications. [...] QuantGold Assessment & Plan (08/19/2021 2:31 PM STITCHDOWN THREAD LASTER): Monitor routine labs while on immunosuppressive medications. [...] Hospitalized for total of 8 days, at [facility]. Had CT brain/neck angio that were unremarkable. [...] Hospitalized for total of 8 days, at [facility]. Had CT brain/neck angio that were unremarkable. [...] 07/24/2020 Assessment & Plan (07/24/2020 12:34 PM STITCHDOWN THREAD LASTER): Her greatest pain complaint at this time [...] 07/24/2020 Assessment & Plan (07/01/2022 2:12 PM STITCHDOWN THREAD LASTER): Self weaned off Cymbalta 2 days ago [...] exercise. Assessment & Plan (08/27/2020 2:41 PM STITCHDOWN THREAD LASTER): Fatigue with sensation of pain all over [...] exercise. Assessment & Plan (07/24/2020 12:36 PM STITCHDOWN THREAD LASTER): Fatigue with sensation of pain all over [...] PT. Assessment & Plan (08/28/2020 12:26 PM STITCHDOWN THREAD LASTER): Multifocal OA (hands and hips) per recent xrays. Continue Tylenol 500 mg qid. Continue PT. Assessment & Plan (07/24/2020 12:41 PM STITCHDOWN THREAD LASTER): Multifocal OA (hands and hips) per recent [...] thickening. Assessment & Plan (07/28/2024 11:22 AM STITCHDOWN THREAD LASTER): Off MTX (oral ulcers/hair thinning). 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 She was strongly [...] needed. Assessment & Plan (09/22/2023 12:32 PM STITCHDOWN THREAD LASTER): A 09/2022 repeat left hand/wrist US demonstrated [...] needed. Assessment & Plan (09/11/2022 12:48 PM STITCHDOWN THREAD LASTER): Continued 15mg MTX weekly and monthly Simponi [...] Chan. Assessment & Plan (08/06/2022 9:00 PM STITCHDOWN THREAD LASTER): Has continued 15mg MTX weekly as well [...] we have no access to them through [employer]. She already had an OV scheduled for 09/02 - will re-evaluate joints at that time and consider repeat hand US if synovitis is absent/minimal on exam but she is still noting pain -to evaluate for underlying inflammation. She may require change in biologic medication. Assessment & Plan (07/01/2022 2:09 PM STITCHDOWN THREAD LASTER): CDAI 37, high Off Enbrel due to ISRs. Continued MTX and Simponi injections. Noted improvement after prednisone taper at last visit. Joints were feeling good until a few weeks ago when she returned from a trip to [place] an self weaned off Cymbalta. Now with [...] She is to follow up with her terminal superintendent soon due to low BP following her [...] increase blood glucose, glaucoma and osteopenia with assisted use of steroids. Continue 15mg MTX weekly [...] Chan. Assessment & Plan (08/19/2021 9:00 PM STITCHDOWN THREAD LASTER): CDAI 25. On 15mg MTX weekly but has only taken 3 Enbrel injections so far. Just completed a medrol dose pack from her terminal superintendent due to inflammation around her heart (pericarditis?). [...] incontinence. Has followed up with PCP and terminal superintendent - started Ubrelvy for JACKSON and terminal superintendent is to adjust her pacemaker on 05/23. [...] pen with her during her trip to [place] (leaves and returns around the ). A letter was provided for [facility] to allow Humira to be brought as [...] needed. Assessment & Plan (08/28/2020 12:26 PM STITCHDOWN THREAD LASTER): Our workup showed an JANNET 1:160 but [...] needed. Assessment & Plan (07/24/2020 12:33 PM STITCHDOWN THREAD LASTER): 54yoF referred for evaluation due to +JANNET [...] reassess. Assessment & Plan (07/06/2020 4:49 PM STITCHDOWN THREAD LASTER): 54yoF referred for evaluation due to +JANNET [...] (12/13/2019): Added automatically from request for surgery [id number] SVT (supraventricular tachycardia) 12/13/2019 Overview (12/13/2019): Added automatically from request for surgery [id number] A-fib 11/24/2019 Overview (11/24/2019): Added automatically from request for surgery [id number] Laryngopharyngeal reflux (LPR) 08/04/2018 Assessment & Plan (10/20/2018 12:26 PM CDT): No longer taking the omeprazole and ranitidine as prescribed. Patient is no longer experiencing any coughing, sinonasal or throat symptoms. Assessment & Plan (08/04/2018 1:17 PM STITCHDOWN THREAD LASTER): Add omeprazole 40 mg Q morning 30 [...] resume. Assessment & Plan (08/04/2018 1:11 PM STITCHDOWN THREAD LASTER): Patient's chronic cough is most likely secondary [...] reactive airway disease contributing to her cough. USP current use of anticoagulant therapy 1 08/28/2014 Deep vein thrombosis (DVT) 06/27/2015 Hyperthyroidism 08/31/2012 Chronic adrenal insufficiency 08/30/2012 Social History Tobacco Use Types Packs/Day Years Used Date Smoking Tobacco: Never Passive Smoke Exposure: Past Smokeless Tobacco: Never Tobacco Cessation:Counseling Given: Not Answered Alcohol Use Standard Drinks/Week Comments No 0 (1 standard drink = 0.6 oz pur e alcohol) [facility] Utilities Answer Date Recorded In the past 12 months has [employer], gas, oil, or water [employer] threatened to shut off services in your [...] often do you attend chur ch or cheondoism services? More than 4 times per year 02/11/2024 Do you belong to any clubs o r organizations such as pentecostalism groups, unions, fraternal or athletic groups, or [...] any time in the past 12 m [facility], were you homeless or living [...] on file Legal Sex Female 12:21 AM STITCHDOWN THREAD LASTER Gender Identity Not on file Sexual Orientation Not on file Last Filed Vital Signs Vital Sign Reading Time Taken Comments Blood Pressure 112/73 10/05/2024 2:54 PM CDT Pulse 70 10/05/2024 2:54 PM CDT Temperature 36 C (96.8 F) 08/02/2024 2:20 PM STITCHDOWN THREAD LASTER Respiratory Rate 10 08/02/2024 2:40 PM STITCHDOWN THREAD LASTER Oxygen Saturation 100% 10/05/2024 2:55 PM CDT Inhaled Oxygen Concentration - - Weight 88.6 kg (195 lb 6.4 oz) 08/23/2024 11:23 AM STITCHDOWN THREAD LASTER Height 172.7 cm (5' 8 ) 08/23/2024 11:23 AM STITCHDOWN THREAD LASTER Body Mass Index 29.71 08/23/2024 11:23 AM STITCHDOWN THREAD LASTER Plan of Treatment Not on file Goals [...] home safety. Medical Devices Implanted Type Area Gauge Machine Operator Device Identifier Shelf Expiration Date Model / Serial / Lot Ivc Filter- 7 Implanted:Qty: 1 on 06/09/2007 by Tam Fraser MD IVC Filter N/A: Vena Cava Lead-Spinal Cord Stimulator- 018 Implanted:2017 by Taran Ramirez MD (Quantity not on file) Lead [employer] [place] [employer] [id number] / / Biotronik Ra Lead ([id number])- 019 Implanted:2018 (Quantity not on file) Lead Chest [employer] SOLIA S [id number] / [id number] / Lead (Rv)-05/23/2021 Implanted:2020 (Quantity not on file) Lead Heart [employer] SOLIA S 53 [id number] / [id number] / Biotronik Paceomaker Amvia Edge -T-12/24/2023 Implanted:2023 (Quantity not on file) Pacemaker Chest Wall [employer] [id number] / [id number] / Spinal Cord Stimulator- 018 Implanted:Qty: 1 on 08/20/2017 by Taran Ramirez MD Spinal Cord Stimulator N/A: Back [place] [employer] SC-1200 / [id number] / Spinal Cord Stimulator Lead-08/20/2017 Implanted:2017 by Taran Ramirez MD (Quantity not on file) Spinal Cord Stimulator [employer] [place] [employer] Neuro- [id number] / / Hardware Thoracic-L umbar Spine Loop Recorder Chest Wall [employer] System Closure Repair Femoral Artery Suture Mediated Perclose Prostyle 19353-68 - [id number] Implanted:Qty: 1 on 02/09/2024 by Morgan Roy MD at [facility] [employer] 11/16/2025 [id number] / / [id number] [employer] Percutaneous Transcatheter Amplatzer Amulet 18mm [id number] - [id number] Implanted:Qty: 1 on 02/09/2024 by Morgan Roy MD at [facility] [employer] 09/17/2027 [id number] / / [id number] [employer] System Closure Repair Femoral Artery Suture Mediated Perclose Prostyle 16162-86 - [id number] Implanted:Qty: 1 on 02/09/2024 by Morgan Roy MD at [facility] [employer] 11/16/2025 [id number] / / [id number] [employer] Sling Urinary Incontinence Female Stress Short Desara Blue Sis-Ds01bs - [id number] Implanted:Qty: 1 on 06/28/2024 by Shankar Mak MD at [facility] N/A: Urethra [employer] 01/04/2027 SIS-DS01 BS / / [id number] Explanted Type Area Gauge Machine Operator Device Identifier Shelf Expiration Date Model / Serial / Lot Biotronik Rv Lead ([id number])-07/04 Implanted:Qty: 1 on 07/04/2019 Explanted:Qty: 1 Lead Chest [employer]ik [id number] / / Description:This lead was re placed and left behind per patient on 05/23/21 Biotronik Pacemaker ([id number])-07/04 Implanted:Qty: 1 on 07/04/2019 Explanted:Qty: 1 on 12/24/2023 Pacemaker Left: Chest Biot[employer]ik ELUNA 8 KRISTY CARBAJAL / [id number] / [id number] Procedures Procedure Name Priority Date/Time Associated Diagnosis Comments MRI LUMBAR SPINE WO CONTRAST Schedule Routine, Read Routine (OP Routine) 10/05/2024 2:40 PM CDT Complex regional pain syndrome type 1, affecting unspecified site Spondylosis without myelopathy or radiculopathy, lumbar region MRI BRAIN W WO CONTRAST Schedule Routine, Read Routine (OP Routine) 10/05/2024 2:40 PM CDT Transient ischemic attack (TIA) Cerebrovascular disease, unspecified Unspecified visual loss Presence of cardiac pacemaker XR CHEST PA LATERAL 2 VIEWS Schedule Routine, Read Routine (OP Routine) 10/05/2024 12:24 PM CDT Encounter for imaging to screen for metal prior to magnetic resonance imaging (MRI) XR SPINE THORACOLUMBAR JUNCT ION 2 OR MORE VIEWS Schedule Routine, Read Routine (OP Routine) 10/05/2024 12:23 PM CDT Transient ischemic attack (TIA) Cerebrovascular disease, unspecified Unspecified visual loss Presence of cardiac pacemaker XR SPINE THORACOLUMBAR JUNCT ION 2 OR MORE VIEWS Schedule Routine, Read Routine (OP Routine) 08/25/2024 7:35 AM STITCHDOWN THREAD LASTER Transient ischemic attack (TIA) Cerebrovascular disease, unspecified Unspecified visual loss Presence of cardiac pacemaker XR CHEST PA LATERAL 2 VIEWS Schedule RY, Read RY (Appt Today, Awaiting Results) 08/23/2024 12:16 PM STITCHDOWN THREAD LASTER Pacemaker reprogramming/c heck Complete heart block (HCC) DEVICE CHECK - IN OFFICE Routine 025 10:57 AM STITCHDOWN THREAD LASTER Pacemaker reprogramming/c heck COLONOSCOPY 08/02/2024 1:43 PM STITCHDOWN THREAD LASTER SURGICAL PATHOLOGY Routine 08/02/2024 1:26 PM STITCHDOWN THREAD LASTER Dysphagia, unspecified type Dyspepsia Diarrhea, unspecified type EGD 08/02/2024 1:15 PM STITCHDOWN THREAD LASTER ESOPHAGOGASTRODUODENOSCOPY BIOPSY 08/02/2024 1:12 PM STITCHDOWN THREAD LASTER Dysphagia, unspecified type Dyspepsia Diarrhea, unspecified type COLON BIOPSY 08/02/2024 1:12 PM STITCHDOWN THREAD LASTER Dysphagia, unspecified type Dyspepsia Diarrhea, unspecified type SCAN - OTHER ORDERS 07/26/2024 HEPATITIS C ANTIBODY Routine 07/06/2020 2:58 PM STITCHDOWN THREAD LASTER Polyarthralgia Encounter for screening for other viral diseases from Last 3 Months or Most Recently Relevant to Health Maintenance Results * MRI Lumbar Spine WO Contrast (10/05/2024 2:40 PM CDT) Anatomical Region Laterality Modality Spine N/A Magnetic Resonan ce 10/05/2024 3:38 PM CDT Impressions 10/05/2024 6:29 PM CDT Postoperative changes of combined fusion from L2 through S1 with no high-grade spinal canal stenosis or neuroforaminal narrowing. Dictated by: Marilyn Seals M.D. The radiology attending physician has personally reviewed this study, and had reviewed and/or edited this written report and agrees with it. Electronically signed by: Mynor Constantino M.D. Narrative 10/05/2024 6:29 PM CDT EXAMINATION: Magnetic resonance imaging (MRI) of the lumbar spine without contrast HISTORY: 59 years-old Female with COMPLEX REGIONAL PAIN SYNDROME, SPONDYLOSIS WITHOUT MYELOPATHY OR RADICULOPATHY, LUMBAR REGION. TECHNIQUE: Multiplanar multi-weighted MRI of the lumbar spine was performed without intravenous contrast using the standard protocol. COMPARISON: Thoracolumbar radiographs same day and 08/25/2024 FINDINGS: Partially imaged right flank spinal cord stimulator generator pack with leads terminating superior to the view better characterized on recent radiograph. There are surgical changes of combined L2-S1 posterior and interbody fusion. Lumbarized S1 vertebral body. L3 vertebral body hemangioma. Trace retrolisthesis of L1 on L2. Fatty marrow is noted throughout the vertebral bodies of the lumbar spine. There are no compression fractures. The conus medullaris terminates at the level of L1-L2. The distal spinal cord signal intensity is normal. Multilevel disc desiccation and height loss and non-instrumented levels. There are no annular fissures identified. Fatty infiltration of the paraspinal muscles of the lower lumbar spine. The aorta is normal. Partially imaged 2 right sacroiliac joint screws. Scattered renal cysts. L1-L2: Broad disc bulge. There is mild bilateral neuroforaminal stenosis. There is mild to moderate spinal canal stenosis. L2-L3: Instrumented level with right paracentral disc protrusion. There is mild bilateral neuroforaminal stenosis. There is no spinal canal stenosis. L3-L4: Instrumented level. There is no neuroforaminal stenosis. There is no spinal canal stenosis. L4-L5: Instrumented level. There is mild bilateral neuroforaminal stenosis. There is no spinal canal stenosis. L5-S1: Instrumented level. There is moderate bilateral neuroforaminal stenosis. There is mild spinal canal stenosis. Procedure Note Mynor Constantino MD - 10/05/2024 EXAMINATION: Magnetic resonance imaging (MRI) of the lumbar spine without contrast HISTORY: 59 years-old Female with COMPLEX REGIONAL PAIN SYNDROME, SPONDYLOSIS WITHOUT MYELOPATHY OR RADICULOPATHY, LUMBAR REGION. TECHNIQUE: Multiplanar multi-weighted MRI of the lumbar spine was performed without intravenous contrast using the standard protocol. COMPARISON: Thoracolumbar radiographs same day and 08/25/2024 FINDINGS: Partially imaged right flank spinal cord stimulator generator pack with leads terminating superior to the view better characterized on recent radiograph. There are surgical changes of combined L2-S1 posterior and interbody fusion. Lumbarized S1 vertebral body. L3 vertebral body hemangioma. Trace retrolisthesis of L1 on L2. Fatty marrow is noted throughout the vertebral bodies of the lumbar spine. There are no compression fractures. The conus medullaris terminates at the level of L1-L2. The distal spinal cord signal intensity is normal. Multilevel disc desiccation and height loss and non-instrumented levels. There are no annular fissures identified. Fatty infiltration of the paraspinal muscles of the lower lumbar spine. The aorta is normal. Partially imaged 2 right sacroiliac joint screws. Scattered renal cysts. L1-L2: Broad disc bulge. There is mild bilateral neuroforaminal stenosis. There is mild to moderate spinal canal stenosis. L2-L3: Instrumented level with right paracentral disc protrusion. There is mild bilateral neuroforaminal stenosis. There is no spinal canal stenosis. L3-L4: Instrumented level. There is no neuroforaminal stenosis. There is no spinal canal stenosis. L4-L5: Instrumented level. There is mild bilateral neuroforaminal stenosis. There is no spinal canal stenosis. L5-S1: Instrumented level. There is moderate bilateral neuroforaminal stenosis. There is mild spinal canal stenosis. IMPRESSION: Postoperative changes of combined fusion from L2 through S1 with no high-grade spinal canal stenosis or neuroforaminal narrowing. Dictated by: Marilyn Seals M.D. The radiology attending physician has personally reviewed this study, and had reviewed and/or edited this written report and agrees with it. Electronically signed by: Mynor Constantino M.D. Taran Ramirez MD IMCally MRI PROCEDURES Final Result * MRI Brain W WO Contrast (10/05/2024 2:40 PM CDT) Anatomical Region Laterality Modality Head and Neck N/A Magnetic Resonan ce 10/05/2024 3:36 PM CDT Impressions 10/05/2024 3:57 PM CDT Normal MRI of the brain. Dictated by: Pepe Khan MD The radiology attending physician has personally reviewed this study, and had reviewed and/or edited this written report and agrees with it. Electronically signed by: Hollis Machado M.D, PHD Narrative 10/05/2024 3:57 PM CDT EXAMINATION: Magnetic resonance imaging (MRI) of the brain and brainstem without and with contrast HISTORY: Transient ischemic attack with vision loss TECHNIQUE: Multiplanar multi-weighted MRI of the brain and brainstem was performed without and with intravenous contrast using the general brain protocol. Contrast information: 16 mL Gadoterate Meglumine IV COMPARISON: 02/14/2021 FINDINGS: There are scattered T2/FLAIR hyperintensities in the periventricular and deep white matter which is nonspecific but may represent chronic microvascular ischemic disease. There is mild global cerebral volume loss. The scalp and calvarium are normal. The superior sagittal sinus demonstrates normal venous flow. The corpus callosum is normal in shape and signal intensity. The posterior fossa is unremarkable. The pituitary and sella are normal. The brainstem and craniocervical junction are unremarkable. Diffusion weighted images reveal no hyperintensities to suggest acute cerebral infarction. The susceptibility weighted sequences reveal no evidence of acute or chronic hemorrhage. The ventricles are normal in size and position without evidence of hydrocephalus. The paranasal sinuses are normal. The visualized portions of the mastoids are unremarkable. The orbits appear normal. Normal flow voids are demonstrated in the carotid arteries and basilar artery. There is no abnormal contrast enhancement. Procedure Note Hollis Machado MD PhD - 10/05/2024 EXAMINATION: Magnetic resonance imaging (MRI) of the brain and brainstem without and with contrast HISTORY: Transient ischemic attack with vision loss TECHNIQUE: Multiplanar multi-weighted MRI of the brain and brainstem was performed without and with intravenous contrast using the general brain protocol. Contrast information: 16 mL Gadoterate Meglumine IV COMPARISON: 02/14/2021 FINDINGS: There are scattered T2/FLAIR hyperintensities in the periventricular and deep white matter which is nonspecific but may represent chronic microvascular ischemic disease. There is mild global cerebral volume loss. The scalp and calvarium are normal. The superior sagittal sinus demonstrates normal venous flow. The corpus callosum is normal in shape and signal intensity. The posterior fossa is unremarkable. The pituitary and sella are normal. The brainstem and craniocervical junction are unremarkable. Diffusion weighted images reveal no hyperintensities to suggest acute cerebral infarction. The susceptibility weighted sequences reveal no evidence of acute or chronic hemorrhage. The ventricles are normal in size and position without evidence of hydrocephalus. The paranasal sinuses are normal. The visualized portions of the mastoids are unremarkable. The orbits appear normal. Normal flow voids are demonstrated in the carotid arteries and basilar artery. There is no abnormal contrast enhancement. IMPRESSION: Normal MRI of the brain. Dictated by: Pepe Khan MD The radiology attending physician has personally reviewed this study, and had reviewed and/or edited this written report and agrees with it. Electronically signed by: Hollis Machado M.D, PHD us Tom Paz MD IMG MRI PROCEDURES Final Res ult * XR Chest PA Lateral 2 Views (10/05/2024 12:24 PM CDT) Anatomical Region Laterality Modality Body, Chest N/A Computed Radiogr aphy 10/05/2024 12:3 0 PM CDT Impressions 10/05/2024 12:30 PM CDT Comparison to 425. Left subclavian transvenous pacemaker with right atrial and right ventricular leads again seen. The leads are intact. No abandoned lead seen. Lumbar spine instrumentation incompletely evaluated. The lungs are clear without focal consolidation or pulmonary edema. No pneumothorax or pleural effusion seen. Heart size and mediastinal contour within normal limits. Electronically signed by: Arpit Mcclelland M.D. Narrative 10/05/2024 12:30 PM CDT EXAMINATION: 2 view chest radiograph Procedure Note Arpit Mcclelland MD - 10/05/2024 EXAMINATION: 2 view chest radiograph IMPRESSION: Comparison to 425. Left subclavian transvenous pacemaker with right atrial and right ventricular leads again seen. The leads are intact. No abandoned lead seen. Lumbar spine instrumentation incompletely evaluated. The lungs are clear without focal consolidation or pulmonary edema. No pneumothorax or pleural effusion seen. Heart size and mediastinal contour within normal limits. Electronically signed by: Arpit Mcclelland M.D. us Marysol Zheng MD PhD IMG XR PROCEDURES Fi nal Result * XR Spine Thoracolumbar Junction 2 or More Views (10/05/2024 12:23 PM CDT) Anatomical Region Laterality Modality Spine N/A Computed Radiogr aphy 10/05/2024 12:4 2 PM CDT Impressions 10/05/2024 12:42 PM CDT Intact right flank spinal cord stimulator leads terminating at T9-T10. No abandoned lead. Electronically signed by: Trey Mcfarland D.O. Narrative 10/05/2024 12:42 PM CDT EXAMINATION: XR SPINE THORACOLUMBAR JUNCTION 2 OR MORE VIEWS HISTORY: TIA unspecified. cerebrovascular disease, unspecified. unspecified visual loss. presence of cardiac pacemaker COMPARISON: Radiographs 08/25/2024 FINDINGS: Right flank spinal cord stimulator generator pack with intact leads terminating at T9-T10. No abandoned lead. Combined L2-S1 posterior and interbody fusion, incompletely evaluated. Trace L1 on L2 retrolisthesis. Normal vertebral body heights. Moderate L1-L2 degenerative disc changes. IVC filter. Procedure Note Trey Mcfarland, DO - 10/05/2024 EXAMINATION: XR SPINE THORACOLUMBAR JUNCTION 2 OR MORE VIEWS HISTORY: TIA unspecified. cerebrovascular disease, unspecified. unspecified visual loss. presence of cardiac pacemaker COMPARISON: Radiographs 08/25/2024 FINDINGS: Right flank spinal cord stimulator generator pack with intact leads terminating at T9-T10. No abandoned lead. Combined L2-S1 posterior and interbody fusion, incompletely evaluated. Trace L1 on L2 retrolisthesis. Normal vertebral body heights. Moderate L1-L2 degenerative disc changes. IVC filter. IMPRESSION: Intact right flank spinal cord stimulator leads terminating at T9-T10. No abandoned lead. Electronically signed by: Trey Mcfarland D.O. us Tomkalani Paz MD IMG XR PROCEDURES Final Resu lt * XR Spine Thoracolumbar Junction 2 or More Views (08/25/2024 7:35 AM [facility]DOWN [facility]READ LA[facility]) Anatomical Region Laterality Modality Spine N/A Computed Radiogr aphy 08/25/2024 7:45 AM [facility] [facility] Impressions 08/25/2024 7:45 AM STITCHDOWN THREAD LASTER 1. Thoracic stimulator device in place with [...] Nehemias Simons D.O. Narrative 08/25/2024 7:45 AM [facility]DOWN [facility]READ [facility] EXAMINATION: XR SPINE THORACOLUMBAR JUNCTION 2 OR [...] Pa Lateral 2 Views (08/23/2024 12:16 PM [facility]DOWN THREAD LASTER) Anatomical Region Laterality Modality Body, Chest N/A Computed Radiogr aphy 08/23/2024 2:08 PM [facility]DOWN [facility]READ [facility] Impressions 08/23/2024 4:13 PM [facility]DOWN [facility]READ [facility] FINDINGS/IMPRESSION: Left subclavian approach pacemaker with leads [...] Arpit Mcclelland M.D. Narrative 08/23/2024 4:13 PM [facility]DOWN [facility]READ [facility] EXAMINATION: XR CHEST PA LATERAL 2 VIEWS [...] CHECK - IN OFFICE (08/23/2024 10:57 AM [facility]READ LA[facility]) Anatomical Region Laterality Modality Other 08/23/2024 2:00 AM [facility] Narrative 08/27/2024 9:33 PM [facility]READ [facility] Interpretation Summary: Battery and Leads (BL) Normal parameters noted on battery and lead(s) --- Estimate 10 years to TEREZA Procedure Note Leonardo Grimm MD - 08/27/2024 Interpretation Summary: Battery and Leads (BL) Normal parameters noted on battery and lead(s) --- Estimate 10 years toERI Elise Ibarra NP [facility] PROCE DURES Final Result * Colonoscopy (08/02/2024 1:43 PM [facility]DOWN THREAD LA[facility]) Anatomical Region Laterality Modality Other Narrative Procedure Note Trey Arroyo MD - 08/02/2024 1:43 PM CST [facility] Patient Name: Naye Cantu Procedure Date: 08/02/2024 1:43 PM Date of : 1965 Admit Type: Outpatient Age: 58 Gender: Female Attending MD: Trey Arroyo M.D. Room: [facility] ENDOSCOPY ROOM 8 Note Status: [...] The scope was passed under direct vision.The [id number] endoscope was introduced through the anus and advanced to the terminal ileum. The colonoscopy was performed without difficulty. The patient tolerated the procedure well. The qualityof the bowel preparation was evaluated using the BBPS ([place] Bowel Preparation Scale) with scores of:Right Colon [...] During normal business hours - Please call [facility] Coordinator: [phone] After hours, evening, nights, weekends and holidays- Please call the hospital vacuum drier operator at and ask for the GI fellow product inspection coordinator. Attending Participation: I was present and participated during the entire procedure, including non-patrick portions. Electronically signed by Trey Arroyo MD Trey Arroyo M.D. 08/02/2024 2:08:56 PM . Number of Addenda: 0 Note Initiated On: 08/02/2024 1:43 PM us Trey Arroyo MD ENDOSCOPY PROCEDURES Final Result * Surgical pathology (08/02/2024 1:26 PM [facility]) Tissue (Duodenum, Biopsy) 08/02/2024 1:26 PM [facility] Tissue (Gastric/Stomach biopsy) 08/02/2024 1:29 PM [facility]READ [facility] Tissue (Esophageal biopsy) 08/02/2024 1:38 PM [facility]DOWN [facility]READ [facility] Tissue (Colon, Biopsy) 08/02/2024 2:02 PM [facility]READ [facility] Narrative [facility]Y [facility] - 08/05/2024 10:16 AM [facility]DOWN THREAD LASTER EPIC results best viewed via link to PDF [facility] [place] [address] Note to Patients: This report may contain [...] Gender: F : 1965 (Age: 58) Address: [address] [place], [place] [address] Hospital #: [id number] Taken:08/02/2024 Received:08/02/2024 Reported: 08/05/2024 Patient Type: [facility] Service: Gastroenterology Location: Physician(s): Trey [...] [facility] as part of an ongoing production quality analyst program and in compliance with federally [...] LAB PATHOLOGY ORDERAB LES Final Result PATHOLOGY [facility] [address] [place], [place] [phone] * EGD (08/02/2024 1:15 PM [facility]DOWN [facility]READ LA[facility]) Anatomical Region Laterality Modality Other Narrative Procedure Note Trey Arroyo MD - 08/02/2024 1:15 PM CST [facility] Patient Name: Naye Cantu Procedure Date: 08/02/2024 1:15 PM Date of : 1965 Admit Type: Outpatient Age: 58 Gender: Female Attending MD: Trey Arroyo M.D. Room: [facility] ENDOSCOPY ROOM 8 Note Status: [...] passed under direct vision. The [id number] [id number] endoscope was introducedthrough the mouth, and advanced [...] business hours - Please call theNurse Coordinator: [phone] After hours, evening, nights, weekends and holidays- Please call the hospital vacuum drier operator at and ask for the GI fellow product inspection coordinator. Attending Participation: I personally performed the entire [...] * Hepatitis C antibody (07/06/2020 2:58 PM [facility]DOWN [facility]READ [facility]) Hep C Ab NON-REACTI VE NON-REACT GIA [facility] SIGNAL TO CUT-OFF 0.02 <1.00 [facility] Comment: HCV antibody was non-reactive. There is no laboratory evidence of HCV infection. In most cases, no further action is required. However, if recent HCV exposure is suspected, a test for HCV RNA (test code 09236) is suggested. For additional information please refer to http://education.NetWitness/faq/FDV06h8 (This link is being provided for informational/ educational purposes only.) Blood specimen (specimen) 07/06/2020 2:58 PM [facility] 07/06/2020 3:00 PM [facility] Narrative [facility] - 07/11/2020 9:33 PM [facility]READ [facility] PATIENT UNABLE TO VOID; ADVISED TO RETURN FOR COLLECTION. Olga MONTES LAB MICROBIOLOGY - GENERA L ORDERABLES Final Result [facility] [address] [id number] from Last 3 Months or Most Recently Relevant to Health Maintenance Insurance IDFL MEDICARE IDFL MEDICARE [facility] [address] [place] [address] MEDICARE IDPA Advance Directives For more information, please contact: [phone] * Full Code (Latest Code Status on [...] 6:47 AM 04/25/2020 10:09 PM Care Teams Workforce Management Analyst Relationship Specialty Start Date End Date Tom Paz MD PCP - General 09/09/16 Tab Taylor MD [address] [place] [address] Consulting Physician Cardiology 01/03/20 Favian Caceres MD [address] [place] [address] Consulting Physician Rheumatology 08/28/23
--- OUTSIDE RECORDS SUMMARY | 2024-10-11 13:30 | XMS_ITS | Patient Health Record ---
Author Organization [facility] Orthopedics [facility] Address [address] [place], [place] [address] Care Team Providers Care Pathology Teacher Name Role Phone Jackson BRYANT, Tom Primary Care Provider Cecilia Nicole Unavailable [phone] ALLERGIES Allergen (clinical drug ingredient) Drug/Non Drug Allergy documented on EMR Reaction Allergy Type Onset Date Status Darvocet-N 50 Unknown Drug Allergy Act antionette [...] A ctive Darvon Unknown Drug Allergy Active REASON FOR REFERRAL [...] osteoarthritis of right knee (M17.11) Active confirmed [id number] Problem Closed nondisplaced fracture of acromial end of left clavicle, initial encounter (S42.035A) Active confirmed 0799416 Problem Closed nondisplaced fracture of acromial end of left clavicle with routine healing, subsequent encounter (S42.035D) Active confirmed 3628466 Problem Right hip pain (M25.551) Active confirmed Right hip pain (766570811372258) Problem Left hip pain (M25.552) Active confirmed Arthralgia of t he pelvic region and thigh (651179305) Problem Primary localized osteoarthritis of right knee (M17.11) Active confirmed Primary osteoarthritis (315270189) Problem Pes anserine bursitis (M70.50) Active confirmed 143483888 PLAN OF TREATMENT Pending Test Test Name Order Date X ray : Hip, left, 2 02/24/2018 X ray : Hip, right, 2 02/24/2018 X ray : Knee, right 3 views 11/30/2017 Insurance Providers Payer Name Payer Address Payer Phone Subscriber Number Group Number Insured Name Patient Relationship to Insured Coverage Start Date Coverage End Date Medicare Services [address] [address] [place] [address] [id number] Naye Hart Self - patient is the insured 0 Medicaid [address] [place] [address] [id number] Naye Hart Self - patient is the [...]
--- OUTSIDE RECORDS SUMMARY | 2024-10-11 13:30 | XMS_ITS | Patient Health Record ---
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) Active confirmed Problem Localized, primary osteoarthritis of the pelvic region and thigh (015660131) Unilateral primary osteoarthritis, left hip (M16.12) Active confirmed Problem Solitary sacroiliitis (310853079) Sacroiliitis, not elsewhere classified (M46.1) Active confirmed Problem Cervical radiculopathy (14162443) Radiculopathy, cervical region (M54.12) Active confirmed Problem Cervical radiculopathy (98158188) Radiculopathy, cervicothoracic region (M54.13) Active confirmed Problem Lumbosacral radiculopathy (0361685) Radiculopathy, lumbosacral region (M54.17) Active confirmed Plan Of Treatment No Information Insurance Providers Payer Name Payer Address Payer Phone Subscriber Number Group Number Insured Name Patient Relationship to Insured Coverage Start Date Coverage End Date MEDICARE SERVICES [address] [address] [place] [address] [id number] Naye Hart Self - patient is the insured 0 IPA [address] [address] [place] [address] [id number] Naye Hart Self - patient [...]
--- OUTSIDE RECORDS SUMMARY | 2024-10-11 13:30 | XMS_ITS | Clinical Summary ---
Author Organization [facility] Address [address] [place] [address] Care Team Providers Care Aircraft Ordnance Technician Name Role Phone Tom Paz MD Primary Care Provider [phone] Tiago Vargas MD, Hugo P Unavailable [phone] Allergies Active Allergy Reactions Criticality Noted Date [...] on file Legal Sex Female 10:47 AM DIRECTOR OF STRATEGIC PARTNERSHIPS Gender Identity Not on file Sexual Orientation [...] this topic Medical Devices Implanted Type Area Classroom Instructor Device Identifier Shelf Expiration Date Model / Serial / Lot Ivc Filter Filter Pacemaker Pacemaker BIOTRONIK Spinal Cord Stimulator Implant Stimulator Implant Insurance MEDICARE MEDICAID Care Teams Aircraft Ordnance Technician Relationship Specialty Start Date End Date Tom Paz MD [address] [address] PCP - General 09/29/22 [place] [id number] [address] [place] [phone] CARDIOVASCULAR DISEASE 07/15/23
--- OUTSIDE RECORDS SUMMARY | 2024-10-11 13:30 | XMS_ITS | Clinical Summary ---
Author Organization [facility] Address [address] [place] [address] Care Team Providers Care Drill Press Operator Name Role Phone Tom Paz MD Primary Care Provider [phone] Tab Taylor MD Unavailable [phone] Favian Caceres MD Unavailable [phone] Allergies Active Allergy Reactions Criticality Noted Date [...] - blisters Etanercept Itching Low 02/24/2022 Gum [place] Unknown 05/12/2023 Gum Uucpdg-Nfmrbt-Eddl-Alcoho l Blisters,Rash High 12/17/2021 Mastisol - blisters [...] 02/07/2021 Assessment & Plan (07/28/2024 11:19 AM PILOT): Monitor routine labs while on immunosuppressive medications. [...] QuantGold Assessment & Plan (09/22/2023 12:26 PM PILOT): Monitor routine labs while on immunosuppressive medications. [...] QuantGold Assessment & Plan (09/11/2022 12:48 PM PILOT): Monitor routine labs while on immunosuppressive medications. Recent 08/20 labs stable. 06/2020: Neg Hep B/C 03/2021: Neg QuantGold Assessment & Plan (07/01/2022 9:25 AM PILOT): Monitor routine labs while on immunosuppressive medications. [...] QuantGold Assessment & Plan (08/19/2021 2:31 PM PILOT): Monitor routine labs while on immunosuppressive medications. [...] Hospitalized for total of 8 days, at [facility] and then [facility]. Had CT brain/neck angio that were [...] Hospitalized for total of 8 days, at [facility] and then [facility]. Had CT brain/neck angio that were [...] 07/24/2020 Assessment & Plan (07/24/2020 12:34 PM PILOT): Her greatest pain complaint at this time [...] 07/24/2020 Assessment & Plan (07/01/2022 2:12 PM PILOT): Self weaned off Cymbalta 2 days ago [...] exercise. Assessment & Plan (08/27/2020 2:41 PM PILOT): Fatigue with sensation of pain all over [...] exercise. Assessment & Plan (07/24/2020 12:36 PM PILOT): Fatigue with sensation of pain all over [...] PT. Assessment & Plan (08/28/2020 12:26 PM PILOT): Multifocal OA (hands and hips) per recent xrays. Continue Tylenol 500 mg qid. Continue PT. Assessment & Plan (07/24/2020 12:41 PM PILOT): Multifocal OA (hands and hips) per recent [...] thickening. Assessment & Plan (07/28/2024 11:22 AM PILOT): Off MTX (oral ulcers/hair thinning). Remains on [...] increase blood glucose, glaucoma and osteopenia with mcc use of steroids. She was strongly encouraged [...] needed. Assessment & Plan (09/22/2023 12:32 PM PILOT): A 09/2022 repeat left hand/wrist US demonstrated [...] needed. Assessment & Plan (09/11/2022 12:48 PM PILOT): Continued 15mg MTX weekly and monthly Simponi [...] Chan. Assessment & Plan (08/06/2022 9:00 PM PILOT): Has continued 15mg MTX weekly as well [...] we have no access to them through [employer]. She already had an OV scheduled for 09/02 - will re-evaluate joints at that time and consider repeat hand US if synovitis is absent/minimal on exam but she is still noting pain -to evaluate for underlying inflammation. She may require change in biologic medication. Assessment & Plan (07/01/2022 2:09 PM PILOT): CDAI 37, high Off Enbrel due to ISRs. Continued MTX and Simponi injections. Noted improvement after prednisone taper at last visit. Joints were feeling good until a few weeks ago when she returned from a trip to [place] an self weaned off Cymbalta. Now with [...] She is to follow up with her margin clerk soon due to low BP following her [...] increase blood glucose, glaucoma and osteopenia with longitudinal float operator use of steroids. Continue 15mg MTX weekly [...] Chan. Assessment & Plan (08/19/2021 9:00 PM PILOT): CDAI 25. On 15mg MTX weekly but has only taken 3 Enbrel injections so far. Just completed a medrol dose pack from her margin clerk due to inflammation around her heart (pericarditis?). [...] incontinence. Has followed up with PCP and margin clerk - started Ubrelvy for JACKSON and margin clerk is to adjust her pacemaker on 05/23. [...] pen with her during her trip to [place] (leaves and returns around the ). A letter was provided for [facility] to allow Humira to be brought as a carry on. She may call [facility] to schedule injection with a nurse ambassador [...] needed. Assessment & Plan (08/28/2020 12:26 PM PILOT): Our workup showed an JNANET 1:160 but otherwise negative serologies. XR revealed [...] needed. Assessment & Plan (07/24/2020 12:33 PM PILOT): 54yoF referred for evaluation due to +JANNET [...] reassess. Assessment & Plan (07/06/2020 4:49 PM PILOT): 54yoF referred for evaluation due to +JANNET [...] (12/13/2019): Added automatically from request for surgery [id number] SVT (supraventricular tachycardia) 12/13/2019 Overview (12/13/2019): Added automatically from request for surgery [id number] A-fib 11/24/2019 Overview (11/24/2019): Added automatically from request for surgery [id number] Laryngopharyngeal reflux (LPR) 08/04/2018 Assessment & Plan (10/20/2018 12:26 PM CDT): No longer taking the omeprazole and ranitidine as prescribed. Patient is no longer experiencing any coughing, sinonasal or throat symptoms. Assessment & Plan (08/04/2018 1:17 PM PILOT): Add omeprazole 40 mg Q morning 30 [...] resume. Assessment & Plan (08/04/2018 1:11 PM PILOT): Patient's chronic cough is most likely secondary [...] reactive airway disease contributing to her cough. [facility] current use of anticoagulant therapy 1 08/28/2014 Deep vein thrombosis (DVT) 06/27/2015 Hyperthyroidism 08/31/2012 Chronic adrenal insufficiency 08/30/2012 Encounters Date Type Department Care Team Description 10/05/2024 12:04 PM CDT - 10/05/2024 11:59 PM CDT Hospital Encounter [facility] Radiology [address] [place] [address] Transient ischemic attack (TIA); Cerebrovascular disease, unspecified; Unspecified visual loss; Presence of cardiac pacemaker Discharge Disposition: Discharge to home or self care 10/05/2024 11:41 AM CDT - 10/05/2024 11:59 PM CDT Hospital Encounter [facility] Radiology [address] [place] [address] Discharge Disposition: Discharge to home or self care 10/05/2024 11:40 AM CDT - 10/05/2024 11:59 PM CDT Hospital Encounter [facility] Radiology [address] [place] [address] Encounter for imaging to screen for metal prior to magnetic resonance imaging (MRI) Discharge Disposition: Discharge to home or self care 10/05/2024 Documentation Cardiology Sofiya Rosa NP 09/02/2024 Telephone [place] [id number] [facility] [address] [place] [address] Va Maharaj Request Call Back 08/25/2024 7:24 AM PILOT - 08/25/2024 11:59 PM PILOT Hospital Encounter [facility] Radiology [address] [place] [address] Transient ischemic attack (TIA); Cerebrovascular disease, unspecified; Unspecified visual loss; Presence of cardiac pacemaker Discharge Disposition: Discharge to home or self care 08/25/2024 Orders Only [facility] Radiology 1 [facility] [place] [address] GilKatarzyna andersen Miky, RT 08/23/2024 12:12 PM PILOT - 08/23/2024 11:59 PM PILOT Hospital Encounter [facility] [place] [address] Pacemaker reprogramming/check ; Complete heart block (HCC) Discharge Disposition: Discharge to home or self care 08/23/2024 11:30 AM PILOT Office Visit [facility] Cardiology [address] [place] [address] 8th [place] [address] [place] [address] Elise Ibarra, SONIA Pacemaker reprogramming/check (Primary Dx); Complete heart block (HCC) 08/23/2024 11:00 AM PILOT Ancillary Procedure [facility] Cardiology [address] [place] [address] 8th [place] [address] [place] [address] Pacemaker reprogramming/check 08/23/2024 Orders Only [facility] Cardiology [address] [place] [address] [place] [address] Elise Ibarra, SONIA Pacemaker reprogramming/check (Primary Dx) 08/02/2024 1:07 PM PILOT Anesthesia Event [facility] [address] [address] Rui Fuller MD BarbosaEvelia uriarte NP 08/02/2024 12:30 PM PILOT - 08/02/2024 1:30 PM PILOT Surgery [facility] [address] [address] Trey Arroyo MD COLON BIOPSY 08/02/2024 11:02 AM PILOT - 08/02/2024 3:29 PM PILOT Hospital Encounter [facility] [address] [address] Trey Arroyo MD Dysphagia, unspecified type; Dyspepsia; Diarrhea, unspecified type Discharge Disposition: Discharge to home or self care 07/28/2024 10:30 AM PILOT Office Visit [facility] [address] [place] [address] Claudia Cristobal PA Seronegative rheumatoid arthritis (HCC) (Primary Dx); Encounter for long-term (current) use of high-risk medication 07/26/2024 Telephone [facility] Specialty Services [address] [place] [address] Sarina Posey RN GI PROCEDURE 7 DAY PRE CALL 07/26/2024 Orders Only [facility] Health Information Management [address] [place] [address] Scanning, Provider 07/14/2024 10:30 AM PILOT Pre-Admission Testing [facility] Center for Preoperative Assessment and Planning [facility] [address] [place] [id number] from Last 3 Months Surgical History Surgery [...] drink = 0.6 oz pur e alcohol) [facility] Utilities Answer Date Recorded In the past [...] How often do you attend chur or quaker services? More than 4 times per year 02/11/2024 Do you belong to any clubs o r organizations such as yarsani groups, unions, fraternal or athletic groups, or [...] place to sleep or slept in a long term (including now)? No 11/02/2023 Housing Stability Vital [...] time in the past [address] [facility], were you homeless or living in a long term (including now)? No 02/11/2024 Personal Safety Answer Date Recorded Have you ever been in or are you currently in a harmful physical or emotional relationship or is someone making you feel afraid or unsafe? Denies 08/02/2024 Comments No Sex and Gender Information Value Date Recorded Sex Assigned at Not on file Legal Sex Female 12:21 AM PILOT Gender Identity Not on file Sexual Orientation Not on file Obstetrics History Last Filed Vital Signs Vital Sign Reading Time Taken Comments Blood Pressure 112/73 10/05/2024 2:54 PM CDT Pulse 70 10/05/2024 2:54 PM CDT Temperature 36 C (96.8 F) 08/02/2024 2:20 PM PILOT Respiratory Rate 10 08/02/2024 2:40 PM PILOT Oxygen Saturation 100% 10/05/2024 2:55 PM CDT Inhaled Oxygen Concentration - - Weight 88.6 kg (195 lb 6.4 oz) 08/23/2024 11:23 AM PILOT Height 172.7 cm (5' 8 ) 08/23/2024 11:23 AM PILOT Body Mass Index 29.71 08/23/2024 11:23 AM PILOT Plan of Treatment Health Maintenance Due Date [...] Reduce the likelihood of falling Lifestyle Hali Dan, RN Note: Below are four things you [...] on stairs Contact your local community or [facility] for information on exercise, fall prevention programs, or options for improving home safety. Medical Devices Implanted Type Area Vp Strategic Partnerships Device Identifier Shelf Expiration Date Model / Serial / Lot Ivc Filter- 7 Implanted:Qty: 1 on 06/09/2007 by Tam Fraser MD IVC Filter N/A: Vena Cava Lead-Spinal Cord Stimulator- 018 Implanted:2017 by Taran Ramirez MD (Quantity not on file) Lead Back [employer] SC-2158- 50 / / Biotronik Ra Lead ([id number])- 019 Implanted:2018 (Quantity not on file) Lead Chest Biotronik SOLIA S [id number] / [id number] / Lead (Rv)-05/23/2021 Implanted:2020 (Quantity not on file) Lead Heart Biotronik SOLIA S 53 [id number] 177 / [id number] / Biotronik Paceomaker Amvia Edge -T-12/24/2023 Implanted:2023 (Quantity not on file) Pacemaker Chest Wall Biotronik [id number] / [id number] / Spinal Cord Stimulator- 018 Implanted:Qty: 1 on 08/20/2017 by Taran Ramirez MD Spinal Cord Stimulator N/A: Back [employer] SC-1200 / [id number] / Spinal Cord Stimulator Lead-08/20/2017 Implanted:2017 by Taran Ramirez MD (Quantity not on file) Spinal Cord Stimulator Back [employer] [id number]- [id number] / / Hardware Thoracic-L umbar Spine Loop Recorder Chest Wall [employer] System Closure Repair Femoral Artery Suture Mediated Perclose Prostyle 26277-67 - [id number] Implanted:Qty: 1 on 02/09/2024 by Morgan Roy MD at [facility] Vascular 11/16/2025 [id number] / / [id number] [employer] Percutaneous Transcatheter Amplatzer Amulet 18mm [id number] - [id number] Implanted:Qty: 1 on 02/09/2024 by Morgan Roy MD at [facility] Vascular 09/17/2027 [id number] / / [id number] [employer] System Closure Repair Femoral Artery Suture Mediated Perclose Prostyle 70865-75 - [id number] Implanted:Qty: 1 on 02/09/2024 by Morgan Roy MD at [facility] [employer] 11/16/2025 [id number] / / [id number] [employer] Sling Urinary Incontinence Female Stress Short Desara Blue Sis-Ds01bs - [id number] Implanted:Qty: 1 on 06/28/2024 by Shankar Mak MD at [facility] N/A: Urethra [employer] 01/04/2027 SIS-DS01 BS / / [id number] Explanted Type Area Vp Strategic Partnerships Device Identifier Shelf Expiration Date Model / Serial / Lot Biotronik Rv Lead ([id number])-07/04 Implanted:Qty: 1 on 07/04/2019 Explanted:Qty: 1 Lead Chest Biotronik [id number] / / Description:This lead was re placed and left behind per patient on 05/23/21 Biotronik Pacemaker ([id number])-07/04 Implanted:Qty: 1 on 07/04/2019 Explanted:Qty: 1 on 12/24/2023 Pacemaker Left: Chest Biotronik ELUNA 8 KRISTY CARBAJAL / [id number] / [id number] Procedures Procedure Name Priority Date/Time Associated Diagnosis [...] Read Routine (OP Routine) 08/25/2024 7:35 AM PILOT Transient ischemic attack (TIA) Cerebrovascular disease, unspecified Unspecified visual loss Presence of cardiac pacemaker XR CHEST PA LATERAL 2 VIEWS Schedule RY, Read RY (Appt Today, Awaiting Results) 08/23/2024 12:16 PM PILOT Pacemaker reprogramming/c heck Complete heart block (HCC) DEVICE CHECK - IN OFFICE Routine 025 10:57 AM PILOT Pacemaker reprogramming/c heck COLONOSCOPY 08/02/2024 1:43 PM PILOT SURGICAL PATHOLOGY Routine 08/02/2024 1:26 PM PILOT Dysphagia, unspecified type Dyspepsia Diarrhea, unspecified type EGD 08/02/2024 1:15 PM PILOT ESOPHAGOGASTRODUODENOSCOPY BIOPSY 08/02/2024 1:12 PM PILOT Dysphagia, unspecified type Dyspepsia Diarrhea, unspecified type COLON BIOPSY 08/02/2024 1:12 PM PILOT Dysphagia, unspecified type Dyspepsia Diarrhea, unspecified type SCAN - OTHER ORDERS 07/26/2024 HEPATITIS C ANTIBODY Routine 07/06/2020 2:58 PM PILOT Polyarthralgia Encounter for screening for other viral [...] by: Mynor Constantino M.D. Taran Ramirez MD Cally MRI PROCEDURES Final Result * MRI Brain [...] by: Hollis Machado M.D, PHD us Tom Stephen Paz MD IMG MRI PROCEDURES Final Res [...] limits. Electronically signed by: Arpit Mcclelland M.D. Marysol Zheng MD PhD IMG XR PROCEDURES [...] lead. Electronically signed by: Trey Mcfarland D.O. Tom Paz MD IMG XR PROCEDURES Final Resu lt * XR Spine Thoracolumbar Junction 2 or More Views (08/25/2024 7:35 AM PILOT) Anatomical Region Laterality Modality Spine N/A Computed Radiogr aphy 08/25/2024 7:4 5 AM PILOT Impressions 08/25/2024 7:45 AM PILOT 1. Thoracic stimulator device in place with [...] Nehemias Simons D.O. Narrative 08/25/2024 7:45 AM PILOT EXAMINATION: XR SPINE THORACOLUMBAR JUNCTION 2 OR [...] Pa Lateral 2 Views (08/23/2024 12:16 PM PILOT) Anatomical Region Laterality Modality Body, Chest N/A Computed Radiogr aphy 08/23/2024 2:08 PM PILOT Impressions 08/23/2024 4:13 PM PILOT FINDINGS/IMPRESSION: Left subclavian approach pacemaker with leads [...] Arpit Mcclelland M.D. Narrative 08/23/2024 4:13 PM PILOT EXAMINATION: XR CHEST PA LATERAL 2 VIEWS [...] CHECK - IN OFFICE (08/23/2024 10:57 AM PILOT) Anatomical Region Laterality Modality Other 08/23/2024 2:00 AM PILOT Narrative 08/27/2024 9:33 PM PILOT Interpretation Summary: Battery and Leads (BL) Normal parameters noted on battery and lead(s) --- Estimate 10 years to TEREZA Procedure Note Leonardo Grimm MD - 08/27/2024 Interpretation Summary: Battery and Leads (BL) Normal parameters noted on battery and lead(s) --- Estimate 10 years toERI Elise Ibarra NP [facility] CARDIAC SERVICES PROCE KRISHAN Final Result * Colonoscopy (08/02/2024 1:43 PM PILOT) Anatomical Region Laterality Modality Other Narrative Procedure Note Trey Arroyo MD - 08/02/2024 1:43 PM CST [facility] ENDOSCOPY [facility] Patient Name: Naye Cantu Procedure Date: 08/02/2024 1:43 PM Date of : 1965 Admit Type: Outpatient Age: 58 Gender: Female Attending MD: Trey Arroyo M.D. Room: [facility] ENDOSCOPY ROOM 8 Note Status: Finalized Procedure: [...] The scope was passed under direct vision.The [id number] endoscope was introduced through the anus and advanced to the terminal ileum. The colonoscopy was performed without difficulty. The patient tolerated the procedure well. The qualityof the bowel preparation was evaluated using the BBPS (Steele Bowel Preparation Scale) with scores of:Right Colon [...] call [facility] Coordinator: [phone] After hours, evening, nights, weekends and holidays- Please call the hospital natural gas treating unit operator at and ask for the GI fellow adjuster piano action. Attending Participation: I was present and participated during the entire procedure, including non-patrick portions. Electronically signed by Trey Arroyo MD Trey Arroyo M.D. 08/02/2024 2:08:56 PM . Number of Addenda: 0 Note Initiated On: 08/02/2024 1:43 PM us Trey Arroyo MD ENDOSCOPY PROCEDURES Final Result * Surgical pathology (08/02/2024 1:26 PM PILOT) Tissue (Duodenum, Biopsy) 08/02/2024 1:26 PM PILOT Tissue (Gastric/Stomach biopsy) 08/02/2024 1:29 PM PILOT Tissue (Esophageal biopsy) 08/02/2024 1:38 PM PILOT Tissue (Colon, Biopsy) 08/02/2024 2:02 PM PILOT Narrative PATHOLOGY [facility] - 08/05/2024 10:16 AM PILOT EPIC results best viewed via link to PDF [facility] [place] [address] Note to Patients: This report may contain [...] Gender: F : 1965 (Age: 58) Address: [address] [place], [place] [address] Hospital #: [id number] Taken:08/02/2024 Received:08/02/2024 Reported: 08/05/2024 Patient Type: [facility] Service: Gastroenterology Location: Physician(s): Pb Steward M.D. [...] Surgical Pathology and Flow Cytometry Departments at [facility] as part of an ongoing chief quality officer program and in compliance with federally mandated [...] Surgical Pathology and Flow Cytometry Departments of [facility]. It has not been cleared or approved by the U. S. Food and Drug Administration. IMAGES AND SCANNED DOCUMENTS, IF INCLUDED, ONLY VIEWABLE IN PDF VERSION OF REPORT us Trey Arroyo MD LAB PATHOLOGY ORDERAB LES Final Result PATHOLOGY [facility] 3rd Floor [place], [place] [phone] * EGD (08/02/2024 1:15 PM PILOT) Anatomical Region Laterality Modality Other Narrative Procedure Note Trey Arroyo MD - 08/02/2024 1:15 PM CST [facility] ENDOSCOPY [facility] Patient Name: Naye Cantu Procedure Date: 08/02/2024 1:15 PM Date of : 1965 Admit Type: Outpatient Age: 58 Gender: Female Attending MD: Trey Arroyo M.D. Room: [facility] END[facility]COPY [facility] 8 Note Status: Addendum Procedure: [...] passed under direct vision. The GIF [id number] endoscope was introducedthrough the mouth, and advanced [...] business hours - Please call theNurse Coordinator: [phone] After hours, evening, nights, weekends and holidays- Please call the hospital natural gas treating unit operator at and ask for the GI fellow adjuster piano action. Attending Participation: I personally performed the entire [...] * Hepatitis C antibody (07/06/2020 2:58 PM PILOT) Hep C Ab NON-REACTI VE NON-REACT GIA [facility] SIGNAL TO CUT-OFF 0.02 <1.00 [facility] Comment: HCV antibody was non-reactive. There is no laboratory evidence of HCV infection. In most cases, no further action is required. However, if recent HCV exposure is suspected, a test for HCV RNA (test code 31205) is suggested. For additional information please refer to http://education.Real Time Translation.Tealeaf/faq/BFP79b2 (This link is being provided for informational/ educational purposes only.) Blood specimen (specimen) 07/06/2020 2:58 PM PILOT 07/06/2020 3:00 PM PILOT Narrative [facility] - 07/11/2020 9:33 PM PILOT PATIENT UNABLE TO VOID; ADVISED TO RETURN FOR COLLECTION. Olga MONTES LAB MICROBIOLOGY - GENERA L ORDERABLES Final Result [facility] [address] [place] [address] from Last 3 Months or Most Recently Relevant to Health Maintenance [place] [address] MEDICARE [employer] MEDICARE [facility] MEDICARE MEDICARE [facility] Advance Directives For more information, please contact: [phone] * Full Code (Latest Code Status on [...] 6:47 AM 04/25/2020 10:09 PM Care Teams Drill Press Operator Relationship Specialty Start Date End Date Tom Paz MD PCP - General 09/09/16 Tab Taylor MD [address] [place] [address] Consulting Physician Cardiology 01/03/20 Favian Caceres MD [facility] [place] [address] Consulting Physician Rheumatology 08/28/23
--- OUTSIDE RECORDS SUMMARY | 2024-10-11 13:30 | XMS_ITS | Clinical Summary ---
Author Organization [employer] [facility] Address [address] [place] [address] Care Team Providers Care Mosaic Layer Name Role Phone Tom Paz MD Primary Care Provider [phone] Allergies Active Allergy Reactions Criticality Noted Date [...] blisters Etanercept Swelling Low 12/09/2023 Embrel Gum Zshotj-Rumwga-Qitp-Alcoho l Rash Low 12/09/2023 Mastisol - blisters [...] Date Type Department Care Team Description 10/05/2024 External Device Data STL ABSTRACTION Provider, Abstract [...] 1964 DTAP/TDAP/TD VACCINES (1 - Tdap) 1983 FIT-DNA Q 3 years 2009 FIT/FOBT Q 1 year 2009 Flex Sig/CT Colonography Q 5 years 2009 ZOSTER VACCINE (1 of 2) 2014 BREAST CANCER SCREENING 01/17/2023 01/18/20, 01/17/2022, 08/07/2020, Additional history exists INFLUENZA VACCINE (#1) 2024 PAP SMEAR 10/08/2024 10/08/2021, 09/18, 08/16/2019, Additional history exists PAP SMEAR 10/08/2024 10/08/2021, 09/18, 08/16/2019, Additional history exists COLORECTAL SCREENING 07/25/2025 07/25/2015 Colorectal Cancer Screening 07/25/2025 CERVICAL CANCER SCREENING 10/08/2026 HPV/Cotest 10/08/2026 10/08/2021, 07/21, 03/12/2015 RSV VACCINE (60+ or ) (1 - 1-dose 75+ series) 2039 HEPATITIS B VACCINES Aged Out No long er eligible based on patient's age to complete this topic Medical Devices Implanted Type Area Oven Tender Bagels Device Identifier Shelf Expiration Date Model / Serial / Lot Tyrx Antibacterial Envelope Med [id number] - [id number] Implanted:Qty: 1 on 12/24/2023 at [facility] Mesh Left: Chest MEDTRONIC- CARD RHYTHM MGMT 10/01/2024 [id number] / / [id number] Neuro Stimulator Neuro Stimulator [employer] SC-1200 / / Description:leads: SC- Need lead numbers Dc Ppm Gen Implanted:Qty: 1 on 12/24/2023 by Burton Forbes MD at [facility] N/A: Chest Wall [id number] / [id number] / Explanted Type Area Oven Tender Bagels Device Identifier Shelf Expiration Date Model / Serial / Lot Dc Eluna 8 Ppm Gen Explanted:Qty: 1 on 12/24/2023 by Burton Forbes MD at [facility] Pacemaker Chest Wall [employer] ELUNA 8 KRISTY / [id number] / Description:Implant date: Per [employer] Rep - NOT MRI safe (extra cap lead -ABANDONED LEAD - NO MRI -lizandro 08/14/23 Insurance MEDICARE PART A AND B [facility] Member Subscriber Plan / Payer (Ef fective 2023-Present) Name:Naye Hart Relation to Subscriber:Self Name:Naye Hart Payer ID:Not on file Group ID:Not on file Type:[employer] [address] [facility] [address] [place] [address] MEDICARE PART A AND B RX [employer] Member Subscriber Plan / Payer (Ef fective 2023-Present) Name:Naye Hart Relation to Subscriber:Self Name:Naye Hart Subscriber ID:Not on file Payer ID:Not on file Group ID:[id number] Type:RX Commercial Address: [address] Advance Directives For more information, please contact: [phone] Documents on File Type Date Recorded Patient Solder [employer] Expl anation Advance Directive POA 12/24/2023 8:33 AM Ad valenzuela Directive POA * Full Code (Latest Code Status on File) Date Activated Date Inactivated Comments 12/24/2023 3:32 PM 12/25/2023 12:17 PM Care Teams Mosaic Layer Relationship Specialty Start Date End Date Tom Paz MD [address] [place] [id number] PCP - General Family Practice 01/28/22
== END 2024-10-11 11:12 | disposition home or self-care (01) ==
PROVIDERS: PCP Family Medicine; Visit Provider Internal Medicine Cardiovascular Disease
DX: R07.2 Precordial pain (principal); Z95.0 Presence of cardiac pacemaker
CPT/HCPCS: 71046

== ENCOUNTER 2024-10-19 08:15 | Outpatient (CLI) | payer MEDICARE, MEDICAID, SELFPAY ==
--- NOTE | ~2024-10-19 | XR_ITS ---
EXAMINATION: XR chest 2V 10/19/2024 08:39 INDICATION: Breakdown of cardiac electrode PROCEDURE: 2 view chest COMPARISON: Comparison to multiple prior studies sequentially, with oldest reviewed study dated 10/13. FINDINGS: The lungs are clear. The cardiomediastinal silhouette is within normal limits. There are no pleural effusions. There is no pneumothorax suspected. Pacemaker leads are stable. There is a sp inal stimulator lead overlying the lower thoracic spine. Moderate thoracic spondylosis. There is an i nteratrial closure device. IMPRESSION: 1: NO ACUTE CARDIOPULMONARY DISEASE. Reviewed, dictated and finalized at location A.
--- OUTSIDE RECORDS SUMMARY | 2024-10-19 08:38 | XMS_ITS | Data Portability ---
Author Organization [facility] [employer], Main Office Address [address] [place] [address] Care Team Providers Care Cell Maker Name Role Phone ANGEL DIETZ Primary Care Provider ANGEL DIETZ Referring Provider Assessment Encounter Date Assessment Date Assessment LastModified by Organization Details LastModified Time 04/20/2023 04/20/2023 This note is dictated and transcribed by [employer]. Service Provider variances may occur. Despite proofreading, typographical errors may occur. [email or web address] Not available 04/20/2023 12:45:53 04/27/2023 04/27/2023 This note is dictated and transcribed by [employer]. Service Provider variances may occur. Despite proofreading, typographical errors [...] By Organization Details Last Modified Time 04/20/2023 [id number] plantar warts: care instructions [email or web address] Not available 04/20/2023 12:46:05 Reason for Referral None Reported. Results Created Date Observation Date Name Description Value Unit Range Abnormal Flag Note LastModifiedBy Organization Detail LastModifiedTime 09/21/19 21 09/20/2020 pregn duglas test, urine ur preg negati ve TESTI NG PERFO RMED BY SURGI SIS SERVI BETHEL PERSO NNEL. Not Available [facility] (Lab) [address] [place], [address], 09/20/2020 10:02:45 09/21/19 21 09/20/2020 pregn duglas test, urine lot no. [id number] Not Available [facility] (Lab) [address] [place], [address], 09/20/2020 10:02:45 09/21/19 21 09/20/2020 pregn duglas test, urine pos QC positi ve Not Available [facility] (Lab) [address] [place], [address], 09/20/2020 10:02:45 09/21/19 21 09/20/2020 pregn duglas test, urine neg QC negati ve Not Available [facility] (Lab) [address] [place], [address], 09/20/2020 10:02:45 Result Notes None recorded. Problems Name Problem SNOMED Code Status Onset Date Resolution Date Notes Provider Name and Address Organization Details Recorded Time Dysmenorrh ea 970833724 Active Not Available [facility] 3 01:01:15 Lesion of vulva 099085036 Active Not Available [facility] 3 01:01:16 Menorrhagi a 858885030 Active Not Available [facility] 3 01:01:16 Vulvitis 54327923 Active Not Available [facility] 3 01:01:16 Plantar wart of left foot 0437338935733 9102 Active 2022 You Pierce DPM [address] [facility], [address], [place], [address] , [employer] [facility] [employer] [facility] 3 14:40:48 Blister of foot without infection 2317734 Active 2022 You Pierce DPM [address], [place], [address] , [employer] [facility] [employer] 3 10:36:11 Problem Notes None recorded. Procedures Surgical History Date Name Laterality Status Provider Name and Address Organization Details Recorded Time 023 Wound Care-Podiatry completed You Pierce DPM [address], [address], [place], [address], [employer] 04/27/2023 10:35:44 023 wart canthrone procedure completed You Pierce DPM [address], [address], [place], [address], [employer] 04/20/2023 12:44:54 023 Wart Treatment Canthrone completed You Pierce DPM [address], [address], [place], [address], [employer] 04/13/2023 14:42:30 021 CRIMINAL RESEARCH SPECIALIST Surgery completed Not Available [facility] 09/17/2022 00:49:08 020 Date of Last Pap Smear completed Not Available [facility] 09/17/2022 00:48:57 019 Pacemaker completed Not Available [facility] 09/17/2022 00:49:08 019 Most Recent Mammogram completed Not Available [facility] 09/17/2022 00:48:58 017 Hernia Repair completed Not Available [facility] 09/17/2022 00:49:08 013 CRIMINAL RESEARCH SPECIALIST Surgery completed Not Available [facility] 09/17/2022 00:49:08 989 CRIMINAL RESEARCH SPECIALIST Surgery completed Not Available [facility] 09/17/2022 00:49:08 back fusion completed Not Available [facility] 09/17/2022 00:49:08 insertion of inferior vena caval filter completed Not Available [facility] 09/17/2022 00:49:08 neurostimulation of spinal cord tissue completed Not Available [facility] 09/17/2022 00:49:08 operation on heart completed Cherie Guan [employer] 04/13/2023 12:15:22 Imaging Results None recorded. Procedure Notes None recorded. Medical Equipment None Reported. Allergies Allergen ID Allergen Name Allergen Category Reaction Reaction Severity Criticality Documentation Date Start Date Code Code System Note Provider Name and Address Organization Details Recorded Time 1925 acetamino phen / hydrocodo ne medicatio n vomiting mild Not available 09/17/2022 73445 2 RxNorm Not Available [facility] 3 01:18:15 1927 Tylenol with Codeine medicatio n vomiting severe Not available 09/17/2022 98592 6 RxNorm Not Available [facility] 3 01:18:15 1928 acetamino phen / oxycodone medicatio n hives severe Not available 09/17/2022 11262 3 RxNorm Not Available [facility] 3 01:18:16 1929 Product containin g penicilli n (product) medicatio n hives severe Not available 09/17/2022 13277 8001 SNOMED Not Available [facility] 3 01:18:16 1930 meclizine medicatio n anaphylax is severe Not available 09/17/2022 6676 RxNorm aller gy previ ously marke d as life -thre ateni ng Not Available [facility] 3 01:18:16 1931 Inderal medicatio n rash severe Not available 09/17/2022 56722 0 RxNorm Not Available [facility] 3 01:18:16 1932 imipramin e Not available hives moderate Not available 09/17/2022 5691 RxNorm Not Available [facility] 3 01:18:16 1933 Dilaudid medicatio n other moderate Not available 09/17/2022 79966 3 RxNorm Not Available [facility] 3 01:18:16 1934 propoxyph giovanny hydrochlo ride medicatio n hives severe Not available 09/17/2022 11156 RxNorm Not Available [facility] 3 01:18:16 1935 Acetamino phen / Propoxyph giovanny medicatio n hives severe Not available 09/17/2022 03371 RxNorm Not Available [facility] 3 01:18:16 1936 Compazine medicatio n anaphylax is severe Not available 09/17/2022 95436 6 RxNorm PATRICIA [facility] 3 12:11:18 193 Ceftin medicatio n hives severe Not available 09/17/202253646 6 RxNorm Not Available [facility] 3 01:18:17 1938 Biaxin medicatio n hives severe Not available 09/17/202249558 9 RxNorm [facility] 3 12:11:04 1939 Benadryl medicatio n hives severe Not available 09/17/202274034 7 RxNorm Not Available [facility] 3 01:18:17 35169 carbamaze pine medicatio n Not available Not available Not available 04/13/20232001 RxNorm [facility] 3 12:12:00 65045 Medicinal product containin g cephalosp meir and acting as antibacte rial agent (product) medicatio n Not available Not available Not available 04/13/2023 15467 9009 SNOMED [facility] 3 12:12:08 76067 clarithro mycin medicatio n Not available Not available Not available 04/13/2023 11181 RxNorm [facility] 3 12:12:23 87453 hydromorp rosa maria medicatio n Not available Not available Not available 04/13/2023 3423 RxNorm [facility] 3 12:12:35 Medications Name Sig Start [...] 1 28.6 kg/m2 172.72 cm 96.5 [degF] 33406.3 7 g 120 mm[Hg] 78 mm[Hg] Not Available [employer] 3 00:52:32 Date Recorded Body height Body mass index (BMI) Body weight Heart rate Respiratory rate Oxygen saturation Oxygen saturation in Arterial blood by Pulse oximetry Systolic blood pressure Diastolic blood pressure Provider Name and Address Organization Details Last Updated DateTime 3 172.72 cm 28.7 kg/m2 21264.9 6 g 82 /min 14 /min 99 % 99 % 128 mm[Hg] 82 mm[Hg] Cherie GOMEZ [email or web address] [facility] 3 12:00:54 Date Recorded Body height Body mass index (BMI) Body weight Heart rate Respiratory rate Oxygen saturation Oxygen saturation in Arterial blood by Pulse oximetry Systolic blood pressure Diastolic blood pressure Provider Name and Address Organization Details Last Updated DateTime 3 172.72 cm 28.7 kg/m2 58596.9 6 g 70 /min 14 /min 98 % 98 % 102 mm[Hg] 66 mm[Hg] Cherie GOMEZ [employer] [facility] 3 12:31:41 Date Recorded Body height Body mass index (BMI) Body weight Heart rate Respiratory rate Oxygen saturation Oxygen saturation in Arterial blood by Pulse oximetry Systolic blood pressure Diastolic blood pressure Provider Name and Address Organization Details Last Updated DateTime 3 172.72 cm 28.7 kg/m2 53382.9 6 g 73 /min 14 /min 98 % 98 % 112 mm[Hg] 75 mm[Hg] Cherie Guan [employer] [facility] 3 09:23:27 Social History Question Answer Notes LastModified by Hammerlessat ion Details LastModified Time Tobacco Smoking Status Never Smoker Not Available [facility] 09/17/2022 00:46:36 What Is Your Level Of Alcohol Consumption? None [id number] Information not available 09/17/2022 What Is Your Level Of Caffeine Consumption? None [id number].[id number] 026 Information not available 09/17/2022 In The 14 Days Before Symptom Onset, Have You Had Close Contact With A Laboratory-confirm ed COVID-19 While That Case Was Ill? No [id number] 026 Information not available 09/17/2022 In The 14 Days Before Symptom Onset, Have You Had Close Contact With A Person Who Is Under Investigation For COVID-19 While That Person Was Ill? No [id number] 026 Information not available 09/17/2022 Which Illicit Or Recreational Drugs Have You Used? None [id number].[id number] 026 Information not available 09/17/2022 What Was [...] Time What is your exercise level? Occasional [id number] 26 Information not available 09/17/2022 Mental Status None recorded. Family History Relationship Description Onset Age of this Age Resolved Age Notes LastModified by Organization Details LastModified Time Paternal Grandmother Malignant tumor of cervix [id number] Not available 09/17/2022 00:49:12 Medical History Condition Response USE OF BLOOD THINNERS Y ALLERGIES/HAYFEVER Y HIGH CHOLESTEROL / HYPERLIPIDEMIA Y BLOOD CLOTS Y FEMALE PROBLEMS / INFECTIONS Y DEPRESSION (INCLUDING POST ) Y BOWEL PROBLEMS Y BACK / NECK PROBLEMS Y HERPES Y DIZZINESS Y CARDIAC ARRHYTHMIA [...] SNOMED-CT Code Diagnosis ICD10 Code Diagnosis Note 62691 _ATHENA_M IGRATION_ DEFAULT_1 _1 , 10/03/2020 00:00:00 10/03/2020 09:44:02 [id number] You Pierce DPM [facility] [place] [address] [facility] [address] [place] [address] 04/13/2023 11:53:16 04/14/2023 11:39:07 Plantar wart of left foot 5717378077 5052030 B07.0 educated on treatment optionsSal icylic acid applied to the wart todaypatie nt advised to use salicylic acid over-the-c ounter daily until blistering occurs then discontinu e provide wound care to prevent infectionF ollow-up in 1 week 2931425 You Pierce DPM [facility] [place] [address] [place] [address] 04/20/2023 12:25:47 04/20/2023 12:47:37 Plantar wart of left foot 1042480741 9112017 B07.0 educated on treatment optionsSal icylic acid 30% applied to the wart todaypatie nt advised to use salicylic acid over-the-c ounter daily until blistering occurs then discontinu e provide wound care to prevent infectionF ollow-up in 1 week 0887758 You Pierce DPM [facility] [place] [address] [place] [address] 04/27/2023 09:10:20 04/27/2023 10:38:12 Plantar wart of left foot 2508651922 5429877 B07.0 Discontinu e salicylic acidallow the area to healfollow -up 2 weeks Blister of foot without infection 6076188 S90.822A secondary to use of salicylic acid [...] Powers Member ID Guarantor Name 04/13/2023 1 MEDICARE-[place] (MEDICARE) Naye S Tanner [id number] Naye S Tanner 04/13/2023 2 MEDICAID-[place]: [place] [facility] PUBLIC A[facility] Naye S Tanner [id number] Naye S Tanner 04/20/2023 1 MEDICARE-OR (MEDICARE) Naye S Tanner [id number] Naye S Tanner 04/20/2023 2 MEDICAID-[place]: [place] [facility] [place] PUBLIC [place] Naye S Tanner [id number] Naye Nassar Tanner 04/27/2023 1 [place] Naye Nassar Tanner [id number] Naye Nassar Tanner 04/27/2023 2 MEDICAID-OR: [facility] PUBLIC AID Naye Cunninghamle [id number] Naye Nassar Tanner Notes Date Note Type Note Provider Name and Address Organization Details Recorded Time 04/13/2023 text/html . Patient is a 57-year-old female who presents to the office with complaints of a wart to the plantar left foot. Patient states is been present for several weeks. Patient denies any treatment for this condition. Patient denies any other complaints. You Pierce DPM [address], [place], [address], [employer] 04/13/2023 14:42:57 04/20/2023 text/html . Patient is [...] any other complaints. You Pierce DPM [address], [place], [address], [employer] 04/20/2023 12:46:20 04/27/2023 text/html . Patient is [...] any other complaints. You Pierce DPM [address], [place], [address], [employer] 04/27/2023 10:37:00 OBGyn Episode No OBEpisode recorded.
--- OUTSIDE RECORDS SUMMARY | 2024-10-19 08:38 | XMS_ITS | Continuity of Care Document ---
Author Organization [facility] Address [address] [place] [address] [address] [place] [address] Phone Care Team Providers Care Smelter Operator Name Role Phone Anthony Gutierrez Unavailable [...] Providers Copied on Encounter Office/outpat ient Visit, [facility], [address] [place] [address] [address], [place], [place], [address], [place] tel:[phone] SEC [facility] No Information 0 0 Krishnasamy Anthony. [address] [facility] [address], [place], [address], [place]. tel:[phone] Office/outpat ient Visit, [facility], [address] [place] [address] [address], [place], [place], [address], [place] tel:[phone] [facility] No Information 0 0 Krishnasamy Anthony. [address] [facility] [place] [address], [place], [place], [facility], [place]. tel:[phone] Office/outpat ient Visit, [facility], [address] [place] [address] [address], [place], [place], [address], [place] tel:[phone] SEC [facility] No Information Fe-2 3-201 0 Krishnasamy Anthony. [address] [facility] [place] [address], [place], [place], [facility], [place]. tel:[phone] [facility], [address] [place] [address] [address], [place], [place], [address], [place] tel:[phone] SEC [facility] No Information Jan-3 1-200 9 Krishnasamy Anthony. [facility] [address], [place], [place], [facility], [place]. tel:[phone] [facility], [address] [place] [address] [address], [place], [place], [address], [place] tel:[phone] SEC [facility] No Information You-2 2-200 9 Krishnasamy Anthony. [address] [place], [place] [address]ate [place] [address], [place], [place], [facility], [place]. tel:[phone] [facility], [address] [place] [address] [address], [place], [place], [address], [place] tel:[phone] [facility] [place] No Information May-0 8-200 9 Krishnasamy Anthony. [facility] [place] [address], [place], [place], [facility], [place]. tel:[phone] [facility], [address], [place], [place], [address], [place] tel:[phone] [facility] No Information Apr-2 8-200 7 Montes OD Simone. [address], [place], [place], [facility], [place]. tel:[phone] Family History Family Member Type Diagnosis Age At Onset No Information Payers Payer name Insurance type Covered alliance party ID Authoriza tion(s) Medicare [facility] [id number] Medicaid [facility] [id number] Social History Type Description Quantity Date Captured [...]
--- OUTSIDE RECORDS SUMMARY | 2024-10-19 08:39 | XMS_ITS | Patient Health Record ---
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) Active confirmed Problem Localized, primary osteoarthritis of the pelvic region and thigh (296891463) Unilateral primary osteoarthritis, left hip (M16.12) Active confirmed Problem Solitary sacroiliitis (647092949) Sacroiliitis, not elsewhere classified (M46.1) Active confirmed Problem Cervical radiculopathy (96598263) Radiculopathy, cervical region (M54.12) Active confirmed Problem Cervical radiculopathy (33098177) Radiculopathy, cervicothoracic region (M54.13) Active confirmed Problem Lumbosacral radiculopathy (0221252) Radiculopathy, lumbosacral region (M54.17) Active confirmed Plan Of Treatment No Information Insurance Providers Payer Name Payer Address Payer Phone Subscriber Number Group Number Insured Name Patient Relationship to Insured Coverage Start Date Coverage End Date MEDICARE SERVICES [address] [address] [place] [address] [id number] Naye Hart Self - patient is the insured 0 IPA [address] [address] [place] [address] [id number] Naye Hart Self - patient [...]
--- OUTSIDE RECORDS SUMMARY | 2024-10-19 08:39 | XMS_ITS | Encounter Summary ---
Author Organization [facility] Address [address] [place] [address] Care Team Providers Care Greens Cutter Name Role Phone Tom Paz MD Primary Care Provider [phone] Tab Taylor MD Unavailable [phone] Favian Caceres MD Unavailable [phone] Encounter Details Date Type Department Care Team (Late st Contact Info) Description 02/11/2024 Documentation [facility] Case Management [address] [place] [address] Gaviota Benz RN Social History Tobacco Use Types Packs/Day Years Used Date Smoking Tobacco: Never Passive Smoke Exposure: Past Smokeless Tobacco: Never Alcohol Use Standard Drinks/Week Comments No 0 (1 standard drink = 0.6 oz pur e alcohol) [facility] Utilities Answer Date Recorded In the past 12 months has [employer], gas, oil, or water [employer] threatened to shut off services in your [...] How often do you attend chur or sabianist services? 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 Gender Identity Not on file Sexual [...] Medicare and IDPA Prescription Coverage: Yes Pharmacy: [id number] [facility] [address] [id number] [place] [place] [address] [facility] [address] [facility] [address] [facility] [place], [place] - [address] [facility] [address] [facility] [address] [place], [place] - [address] [facility] [address] [facility] [address] Primary Care Provider: Tom Paz MD Prior to Admission: Functional Status: Minimal assist with ADLs Primary Caregiver: Private caregiver Support System: Children, Friends/neighbors (Son: Porter Serrano [phone]/Friend: Federico [phone]) Home Care Services: Yes Type of Home Care Services: 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 Has a spring floor service worker and has a quad cane [...] Collaboration with Patient, Provider, Direct Care Nurse, Kennel Hand, and other members of theHealth Care Team to assure needed interventions completed. 2. Return patient to optimal level of self-care post discharge. 3. Database Administrator will follow for Discharge Planning - interventions as needed 4. Anticipated level of care at discharge 5. Planned Discharge Disposition SONALI Brothers, RN telegraph repeater installer [phone] documented in this encounter Plan of Treatment Upcoming Encounters Date Type Department Care Team (Latest Contact Info) Description 10/21/2024 7:30 AM CDT Hospital Encounter [facility] Operating Room [address] [place] [address] Hugo Ordoñez Jr., MD [address] [place] [address] 10/21/2024 7:30 AM CDT - 10/21/2024 9:00 AM CDT Surgery [facility] Operating Room [address] [place] [address] Hugo Ordoñez Jr., MD [address] [place] [address] REPOSITION PERMANENT PACEMAKER LEAD Scheduled Procedures Name Priority Associated Diagnoses Date/Ti me REPOSITION PERMANENT PACEMAKER LEAD Cardiac pacemaker in situ Shortness of breath Chronic diastolic heart failure (HCC) 10/21/2024 7:30 AM CDT documented as of this encounter Goals Goal [...] Reduce the likelihood of falling Lifestyle No Osman, Hali A., RN Note: Below are four things you [...] on stairs Contact your local community or [facility] for information on exercise, fall prevention programs, or options for improving home safety. documented as of this encounter Visit Diagnoses Not on filedocumented in this encounter Care Teams Greens Cutter Relationship Specialty Start Date End Date Tom Paz MD PCP - General 09/09/16 Tab Taylor MD [address] [place] [address] Consulting Physician Cardiology 01/03/20 Favian Caceres MD [address] [place] [address] Consulting Physician Rheumatology 08/28/23 documented as of this encounter
--- OUTSIDE RECORDS SUMMARY | 2024-10-19 08:39 | XMS_ITS | Clinical Summary ---
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[employer] Gender Identity Not on file Sexual Orientation [...] Vaccine ( - 2023-2 5 season) 2024 RSV Immunization or 60+ Years (1 [...] this topic Medical Devices Implanted Type Area Teller Head Device Identifier Shelf Expiration Date Model / Serial / Lot Ivc Filter Filter Pacemaker Pacemaker BIOTRONIK Spinal Cord Stimulator Implant Stimulator Implant Insurance MEDICARE MEDICAID Care Teams Lidar Technician Relationship Specialty Start Date End Date Tom Paz MD [address] [address] PCP - General 09/29/22 Hugo Ordoñ[place] [id number] [id number] CARDIOVASCULAR DISEASE 07/15/23
--- OUTSIDE RECORDS SUMMARY | 2024-10-19 08:39 | XMS_ITS | Clinical Summary ---
Author Organization [facility] al Address [address] [place] [address] Care Team Providers Care Activity Aid Name Role Phone Tom Paz MD Primary Care Provider [phone] Tab Taylor MD Unavailable [phone] Favian Caceres MD Unavailable [phone] Allergies Active Allergy Reactions Criticality Noted Date [...] - blisters Etanercept Itching Low 02/24/2022 Gum [place] Unknown 05/12/2023 Gum Dsmtwb-Ymdomo-Wvbh-Alcoho l Blisters,Rash High 12/17/2021 Mastisol - blisters [...] Active Problems Problem Noted Date Diagnosed Date Cardiac pacemaker in situ 10/18/2024 Shortness of breath 10/18/2024 Chronic diastolic heart failure 10/18/2024 Stress incontinence, female 06/21/2024 Presence of Amulet left atrial appendage closure device 02/09/2024 Acute chest pain 10/30/2023 Dysphagia 06/05/2023 Dyspepsia 06/05/2023 Diarrhea 06/05/2023 Encounter for long-term (cur rent) use of high-risk medication 02/07/2021 Assessment & Plan (07/28/2024 11:19 AM BUILD MASTER): Monitor routine labs while on immunosuppressive medications. [...] QuantGold Assessment & Plan (09/22/2023 12:26 PM BUILD MASTER): Monitor routine labs while on immunosuppressive medications. [...] QuantGold Assessment & Plan (09/11/2022 12:48 PM BUILD MASTER): Monitor routine labs while on immunosuppressive medications. Recent 08/20 labs stable. 06/2020: Neg Hep B/C 03/2021: Neg QuantGold Assessment & Plan (07/01/2022 9:25 AM BUILD MASTER): Monitor routine labs while on immunosuppressive medications. [...] QuantGold Assessment & Plan (08/19/2021 2:31 PM BUILD MASTER): Monitor routine labs while on immunosuppressive medications. [...] Hospitalized for total of 8 days, at [facility] and then [facility]. Had CT brain/neck angio that were [...] Hospitalized for total of 8 days, at [place] [facility] and then [facility]. Had CT brain/neck angio that were [...] 07/24/2020 Assessment & Plan (07/24/2020 12:34 PM BUILD MASTER): Her greatest pain complaint at this time [...] 07/24/2020 Assessment & Plan (07/01/2022 2:12 PM BUILD MASTER): Self weaned off Cymbalta 2 days ago [...] exercise. Assessment & Plan (08/27/2020 2:41 PM BUILD MASTER): Fatigue with sensation of pain all over [...] exercise. Assessment & Plan (07/24/2020 12:36 PM BUILD MASTER): Fatigue with sensation of pain all over [...] PT. Assessment & Plan (08/28/2020 12:26 PM BUILD MASTER): Multifocal OA (hands and hips) per recent xrays. Continue Tylenol 500 mg qid. Continue PT. Assessment & Plan (07/24/2020 12:41 PM BUILD MASTER): Multifocal OA (hands and hips) per recent [...] thickening. Assessment & Plan (07/28/2024 11:22 AM BUILD MASTER): Off MTX (oral ulcers/hair thinning). Remains on [...] increase blood glucose, glaucoma and osteopenia with termite treater use of steroids. She was strongly encouraged [...] needed. Assessment & Plan (09/22/2023 12:32 PM BUILD MASTER): A 09/2022 repeat left hand/wrist US demonstrated [...] needed. Assessment & Plan (09/11/2022 12:48 PM BUILD MASTER): Continued 15mg MTX weekly and monthly Simponi [...] Chan. Assessment & Plan (08/06/2022 9:00 PM BUILD MASTER): Has continued 15mg MTX weekly as well [...] we have no access to them through [employer]. She already had an OV scheduled for 09/02 - will re-evaluate joints at that time and consider repeat hand US if synovitis is absent/minimal on exam but she is still noting pain -to evaluate for underlying inflammation. She may require change in biologic medication. Assessment & Plan (07/01/2022 2:09 PM BUILD MASTER): CDAI 37, high Off Enbrel due to ISRs. Continued MTX and Simponi injections. Noted improvement after prednisone taper at last visit. Joints were feeling good until a few weeks ago when she returned from a trip to [place] an self weaned off Cymbalta. Now with [...] She is to follow up with her sales representative wire rope soon due to low BP following her [...] increase blood glucose, glaucoma and osteopenia with correction use of steroids. Continue 15mg MTX weekly [...] Chan. Assessment & Plan (08/19/2021 9:00 PM BUILD MASTER): CDAI 25. On 15mg MTX weekly but has only taken 3 Enbrel injections so far. Just completed a medrol dose pack from her sales representative wire rope due to inflammation around her heart (pericarditis?). [...] incontinence. Has followed up with PCP and sales representative wire rope - started Ubrelvy for JACKSON and sales representative wire rope is to adjust her pacemaker on 05/23. [...] pen with her during her trip to [place] (leaves and returns around the ). A letter was provided for [facility] to allow Humira to be brought as a carry on. She may call [facility] to schedule injection with a [...] needed. Assessment & Plan (08/28/2020 12:26 PM BUILD MASTER): Our workup showed an JANNET 1:160 but [...] needed. Assessment & Plan (07/24/2020 12:33 PM BUILD MASTER): 54yoF referred for evaluation due to +JANNET [...] reassess. Assessment & Plan (07/06/2020 4:49 PM BUILD MASTER): 54yoF referred for evaluation due to +JANNET [...] (12/13/2019): Added automatically from request for surgery [id number] SVT (supraventricular tachycardia) 12/13/2019 Overview (12/13/2019): Added automatically from request for surgery [id number] A-fib 11/24/2019 Overview (11/24/2019): Added automatically from request for surgery [id number] Laryngopharyngeal reflux (LPR) 08/04/2018 Assessment & Plan (10/20/2018 12:26 PM CDT): No longer taking the omeprazole and ranitidine as prescribed. Patient is no longer experiencing any coughing, sinonasal or throat symptoms. Assessment & Plan (08/04/2018 1:17 PM BUILD MASTER): Add omeprazole 40 mg Q morning 30 [...] resume. Assessment & Plan (08/04/2018 1:11 PM BUILD MASTER): Patient's chronic cough is most likely secondary [...] reactive airway disease contributing to her cough. [facility]PC current use of anticoagulant therapy 1 08/28/2014 Deep vein thrombosis (DVT) 06/27/2015 Hyperthyroidism 08/31/2012 Chronic adrenal insufficiency 08/30/2012 Encounters Date Type Department Care Team Description 10/18/2024 Orders Only [facility] Operating [facility] [address] [place] [id number] Hugo Ordoñez Jr., MD Cardiac pacemaker in situ (Primary Dx); Shortness of breath; Chronic diastolic heart failure (HCC) 10/14/2024 Orders Only [facility] [address] [place] [address] Scanning, Provider 10/05/2024 12:04 PM CDT - 10/05/2024 11:59 PM CDT Hospital Encounter [facility] [address] [place] [address] Transient ischemic attack (TIA); Cerebrovascular disease, unspecified; Unspecified visual loss; Presence of cardiac pacemaker Discharge Disposition: Discharge to home or self care 10/05/2024 11:41 AM CDT - 10/05/2024 11:59 PM CDT Hospital Encounter [facility] [address] [place] [address] Discharge Disposition: Discharge to home or self care 10/05/2024 11:40 AM CDT - 10/05/2024 11:59 PM CDT Hospital Encounter [facility] [address] [place] [address] Encounter for imaging to screen for metal prior to magnetic resonance imaging (MRI) Discharge Disposition: Discharge to home or self care 10/05/2024 Documentation Cardiology Sofiya Rosa NP 09/02/2024 Telephone [place] [id number] [facility] [address] [place] [phone] [facility] Request Call Back 08/25/2024 7:24 AM BUILD MASTER - 08/25/2024 11:59 PM BUILD MASTER Hospital Encounter [facility] [address] [place] [address] Transient ischemic attack (TIA); Cerebrovascular disease, unspecified; Unspecified visual loss; Presence of cardiac pacemaker Discharge Disposition: Discharge to home or self care 08/25/2024 Orders Only [facility] [address] [place] [address] Katarzyna Gil, 08/23/2024 12:12 PM BUILD MASTER - 08/23/2024 11:59 PM BUILD MASTER Hospital Encounter [facility] [address] [place] [address] Pacemaker reprogramming/check ; Complete heart block (HCC) Discharge Disposition: Discharge to home or self care 08/23/2024 11:30 AM BUILD MASTER Office Visit [facility] Cardiology [address] [place] [address] Medicine 8th [place] [address] Elise Ibarra NP Pacemaker reprogramming/check (Primary Dx); Complete heart block (HCC) 08/23/2024 11:00 AM BUILD MASTER Ancillary Procedure [facility] Cardiology [address] [place] [address] 8th [place] [address] [place] [address] Pacemaker reprogramming/check 08/23/2024 Orders Only [facility] Cardiology [address] [place] [address] Medicine 8th [place] [address] [place] [address] Elise Ibarra NP Pacemaker reprogramming/check (Primary Dx) 08/02/2024 1:07 PM BUILD MASTER Anesthesia Event [facility] [address] [place] [address] Alina, MD Familia Matthew Jessica Lynn, NP 08/02/2024 12:30 PM BUILD MASTER - 08/02/2024 1:30 PM BUILD MASTER Surgery [facility] [address] [address] Trey Arroyo MD COLON BIOPSY 08/02/2024 11:02 AM BUILD MASTER - 08/02/2024 3:29 PM BUILD MASTER Hospital Encounter [facility] [address] [place] [address] Trey Arroyo MD Dysphagia, unspecified type; Dyspepsia; Diarrhea, unspecified type Discharge Disposition: Discharge to home or self care 07/28/2024 10:30 AM BUILD MASTER Office Visit [facility] [address] [place] [phone] Claudia Cristobal PA Seronegative rheumatoid arthritis (HCC) (Primary Dx); Encounter for long-term (current) use of high-risk medication 07/26/2024 Telephone [facility] Special[facility] Services [address] [place] [phone] Sarina Posey RN GI PROCEDURE 7 DAY PRE CALL 07/26/2024 Orders Only [facility] [address] [place] [address] Scanning, Provider from Last 3 Months Surgical History Surgery [...] 0.6 oz pur e alcohol) [facility] Answer Date Recorded In the past 12 months has e [employer], [email or web address], oil, or water [employer] threatened to shut off services in your [...] How often do you attend chur or episcopal services? More than 4 times per year 02/11/2024 Do you belong to any clubs o r organizations such as anabaptist groups, unions, fraternal or athletic groups, or [...] place to sleep or slept in a chcf (including now)? No 11/02/2023 Housing Stability Vital Sign Answer Thang e Recorded In the last 12 months, was t here a time when you were not able to pay the mortgage or rent on time? No 02/11/2024 In the past 12 months, how m any times have you moved where you were living? 0 02/11/2024 At any time in the past 12 m [facility], were you homeless or living in a chcf (including now)? No 02/11/2024 Personal Safety Answer Date Recorded Have you ever been in or are you currently in a harmful physical or emotional relationship or is someone making you feel afraid or unsafe? Denies 08/02/2024 Comments No Sex and Gender Information Value Date Recorded Sex Assigned at Not on file Legal Sex Female 12:21 AM BUILD MASTER Gender Identity Not on file Sexual Orientation Not on file Obstetrics History Last Filed Vital Signs Vital Sign Reading Time Taken Comments Blood Pressure 112/73 10/05/2024 2:54 PM CDT Pulse 70 10/05/2024 2:54 PM CDT Temperature 36 C (96.8 F) 08/02/2024 2:20 PM BUILD MASTER Respiratory Rate 10 08/02/2024 2:40 PM BUILD MASTER Oxygen Saturation 100% 10/05/2024 2:55 PM CDT Inhaled Oxygen Concentration - - Weight 88.6 kg (195 lb 6.4 oz) 08/23/2024 11:23 AM BUILD MASTER Height 172.7 cm (5' 8 ) 08/23/2024 11:23 AM BUILD MASTER Body Mass Index 29.71 08/23/2024 11:23 AM BUILD MASTER Plan of Treatment Upcoming Encounters Date Type Department Care Team (Latest Contact Info) Description 10/21/2024 7:30 AM CDT Hospital Encounter [facility] Operating Room [address] [place] [id number] Hugo Ordoñez Jr., MD [address] [place] [address] 10/21/2024 7:30 AM CDT - 10/21/2024 9:00 AM CDT Surgery [facility] [address] [place] [address] Hugo Ordoñez Jr., MD [address] [place] [address] REPOSITION PERMANENT PACEMAKER LEAD Scheduled Procedures Name Priority Associated Diagnoses Date/Ti me REPOSITION PERMANENT PACEMAKER LEAD Cardiac pacemaker in situ Shortness of breath Chronic diastolic heart failure (HCC) 10/21/2024 7:30 AM CDT Health Maintenance Due Date Last Done Comments Breast Cancer Screening-Mammogram 1965 Cervical Cancer Screening 1965 Depression Screening 1965 Hepatitis B Screening 1982 Regular Well Visit/Exam 18-64 1982 Pneumococcal vaccine <65 (1 of 2 - PCV) 1983 Zoster Vaccine (1 of 2) 2014 Influenza Vaccine (Season Ended) 2025 DTaP/Tdap/Td Vaccine (2 - Td or Tdap) 10/06/2028 Colon Cancer Screening-Colonoscopy 08/02/20342024 Hepatitis C Screening Completed 07/06/2020, 013 Colon Cancer Screening-CT Colonography Discontinued Colon Cancer Screening-DNA Stool Discontinued 08/02/19 25 Colon Cancer Screening-FIT Discontinued 08/02/2024 Colon Cancer Screening-Sigmoidoscopy Discontinued 07/20 Goals Goal Patient Goal Type Associated Problems [...] home safety. Medical Devices Implanted Type Area Hand I Cutter Device Identifier Shelf Expiration Date Model / Serial / Lot Ivc Filter- 7 Implanted:Qty: 1 on 06/09/2007 by Tam Fraser MD IVC Filter N/A: Vena Cava Lead-Spinal Cord Stimulator- 018 Implanted:2017 by Taran Ramirez MD (Quantity not on file) Lead Back [place] [employer] SC-2158- 50 / / Biotronik Ra Lead ([id number])- 019 Implanted:2018 (Quantity not on file) Lead Chest Biotronik SOLIA S [id number] / [id number] / Lead (Rv)-05/23/2021 Implanted:2020 (Quantity not on file) Lead Heart Biotronik SOLIA S 53 377 177 / [id number] / Biotronik Paceomaker Ariana Rodríguez Dr-T-12/24/2023 Implanted:2023 (Quantity not on file) Pacemaker Chest Wall Biotronik [id number] / [id number] / Spinal Cord Stimulator- 018 Implanted:Qty: 1 on 08/20/2017 by Taran Ramirez MD Spinal Cord Stimulator N/A: Back [place] [employer] SC-1200 / [id number] / Spinal Cord Stimulator Lead-08/20/2017 Implanted:2017 by Taran Ramirez MD (Quantity not on file) Spinal Cord Stimulator Back [place] [employer] Neuro- [id number] / / Hardware Thoracic-L umbar Spine Loop Recorder Chest Wall [employer] System Closure Repair Femoral Artery Suture Mediated Perclose Prostyle 46560-85 - [id number] Implanted:Qty: 1 on 02/09/2024 by Morgan Roy MD at [facility] Vascular 11/16/2025 [id number] / / [id number] [employer] Percutaneous Transcatheter Amplatzer Amulet 18mm [id number] - [id number] Implanted:Qty: 1 on 02/09/2024 by Morgan Roy MD at [facility] Vascular 09/17/2027 9-[id number] / / [id number] Chris [employer] System Closure Repair Femoral Artery Suture Mediated Perclose Prostyle 03052-05 - [id number] Implanted:Qty: 1 on 02/09/2024 by Morgan Roy MD at [facility] Vascular 11/16/2025 [id number] / / [id number] [employer] Sling Urinary Incontinence Female Stress Short Desara Blue Sis-Ds01bs - [id number] Implanted:Qty: 1 on 06/28/2024 by Shankar Mak MD at [facility] N/A: Urethra [employer] 01/04/2027 SIS-DS01 BS / / [id number] Explanted Type Area Hand I Cutter Device Identifier Shelf Expiration Date Model / Serial / Lot Biotronik Rv Lead ([id number])-07/04 Implanted:Qty: 1 on 07/04/2019 Explanted:Qty: 1 Lead Chest Biotronik [id number] / / Description:This lead was re placed and left behind per patient on 05/23/21 Biotronik Pacemaker ([id number])-07/04 Implanted:Qty: 1 on 07/04/2019 Explanted:Qty: 1 on 12/24/2023 Pacemaker Left: Chest Biotronik ELUNA 8 KRISTY CARBAJAL / [id number] / [id number] Procedures Procedure Name Priority Date/Time Associated Diagnosis Comments SCAN - OTHER ORDERS 10/14/2024 MRI LUMBAR SPINE WO CONTRAST Schedule Routine, [...] Read Routine (OP Routine) 08/25/2024 7:35 AM BUILD MASTER Transient ischemic attack (TIA) Cerebrovascular disease, unspecified Unspecified visual loss Presence of cardiac pacemaker XR CHEST PA LATERAL 2 VIEWS Schedule RY, Read RY (Appt Today, Awaiting Results) 08/23/2024 12:16 PM BUILD MASTER Pacemaker reprogramming/c heck Complete heart block (HCC) DEVICE CHECK - IN OFFICE Routine 02/04/2 025 10:57 AM BUILD MASTER Pacemaker reprogramming/c heck COLONOSCOPY 08/02/2024 1:43 PM BUILD MASTER SURGICAL PATHOLOGY Routine 08/02/2024 1:26 PM BUILD MASTER Dysphagia, unspecified type Dyspepsia Diarrhea, unspecified type EGD 08/02/2024 1:15 PM BUILD MASTER ESOPHAGOGASTRODUODENOSCOPY BIOPSY 08/02/2024 1:12 PM BUILD MASTER Dysphagia, unspecified type Dyspepsia Diarrhea, unspecified type COLON BIOPSY 08/02/2024 1:12 PM BUILD MASTER Dysphagia, unspecified type Dyspepsia Diarrhea, unspecified type SCAN - OTHER ORDERS 07/26/2024 HEPATITIS C ANTIBODY Routine 07/06/2020 2:58 PM BUILD MASTER Polyarthralgia Encounter for screening for other viral diseases from Last 3 Months or Most Recently Relevant to Health Maintenance Results * SCAN - OTHER ORDERS (10/14/2024) us Provider Scanning Final Result * MRI Lumbar Spine WO Contrast (10/05/2024 [...] by: Mynor Constantino M.D. Taran Ramirez MD IMG MRI PROCEDURES Final Result * MRI Brain [...] Electronically signed by: Hollis Machado M.D, PHD Tom Paz MD IMG MRI PROCEDURES Final [...] disc changes. IVC filter. Procedure Note Trey Mcfarland DO - 10/05/2024 EXAMINATION: XR SPINE THORACOLUMBAR [...] Electronically signed by: Trey Mcfarland D.O. us Tom Stephen Paz MD IMG XR PROCEDURES Final Resu lt * XR Spine Thoracolumbar Junction 2 or More Views (08/25/2024 7:35 AM BUILD MASTER) Anatomical Region Laterality Modality Spine N/A Computed Radiogr aphy 08/25/2024 7:45 AM BUILD MASTER Impressions 08/25/2024 7:45 AM BUILD MASTER 1. Thoracic stimulator device in place with [...] Nehemias Simons D.O. Narrative 08/25/2024 7:45 AM BUILD MASTER EXAMINATION: XR SPINE THORACOLUMBAR JUNCTION 2 OR [...] Pa Lateral 2 Views (08/23/2024 12:16 PM BUILD MASTER) Anatomical Region Laterality Modality Body, Chest N/A Computed Radiogr aphy 08/23/2024 2:08 PM BUILD MASTER Impressions 08/23/2024 4:13 PM BUILD MASTER FINDINGS/IMPRESSION: Left subclavian approach pacemaker with leads [...] Arpit Mcclelland M.D. Narrative 08/23/2024 4:13 PM BUILD MASTER EXAMINATION: XR CHEST PA LATERAL 2 VIEWS [...] CHECK - IN OFFICE (08/23/2024 10:57 AM BUILD MASTER) Anatomical Region Laterality Modality Other 08/23/2024 2:00 AM BUILD MASTER Narrative 08/27/2024 9:33 PM BUILD MASTER Interpretation Summary: Battery and Leads (BL) Normal parameters noted on battery and lead(s) --- Estimate 10 years to TEREZA Procedure Note Leonardo Grimm MD - 08/27/2024 Interpretation Summary: Battery and Leads (BL) Normal parameters noted on battery and lead(s) --- Estimate 10 years toERI us Elise Ibarra NP [facility] CARDIAC SERVICES PROCE DURES Final Result * Colonoscopy (08/02/2024 1:43 PM BUILD MASTER) Anatomical Region Laterality Modality Other Narrative Procedure Note Trey Arroyo MD - 08/02/2024 1:43 PM CST [facility] Patient Name: Naye Cantu Procedure Date: 08/02/2024 1:43 PM Date of : 1965 Admit Type: Outpatient Age: 58 Gender: Female Attending MD: Trey Arroyo M.D. Room: [facility] ENDOSCOPY ROOM 8 Note Status: Finalized [...] The scope was passed under direct vision.The [id number] endoscope was introduced through the anus and advanced to the terminal ileum. The colonoscopy was performed without difficulty. The patient tolerated the procedure well. The qualityof the bowel preparation was evaluated using the BBPS ([place] Bowel Preparation Scale) with scores of:Right Colon [...] During normal business hours - [facility]: [phone] After hours, evening, nights, weekends and holidays- Please call the hospital operator electronic warfare at and ask for the GI fellow diamond assorter. Attending Participation: I was present and participated during the entire procedure, including non-patrick portions. Electronically signed by Trey Arroyo MD Trey Arroyo M.D. 08/02/2024 2:08:56 PM . Number of Addenda: 0 Note Initiated On: 08/02/2024 1:43 PM Trey Arroyo MD ENDOSCOPY PROCEDURES Final Result * Surgical pathology (08/02/2024 1:26 PM BUILD MASTER) Tissue specimen (specimen) (Duodenum, Biopsy) 08/02/2024 1:26 PM BUILD MASTER Tissue specimen (specimen) (Gastric/Stomach biopsy) 08/02/2024 1:29 PM BUILD MASTER Tissue specimen (specimen) (Esophageal biopsy) 08/02/2024 1:38 PM BUILD MASTER Tissue specimen (specimen) (Colon, Biopsy) 08/02/2024 2:02 PM BUILD MASTER Narrative PATHOLOGY [facility] - 08/05/2024 10:16 AM BUILD MASTER EPIC results best viewed via link to PDF [facility] of Surgical [place] [address] Note to Patients: This report may contain [...] Gender: F : 1965 (Age: 58) Address: [address] [place], [place] [address] [facility] #: [id number] Taken:08/02/2024 Received:08/02/2024 Reported: 08/05/2024 Patient Type: [facility] Service: Gastroenterology Location: Physician(s): Pb Steward M.D. [...] Surgical Pathology and Flow Cytometry Departments at [facility] as part of an ongoing research associate quality control qc program and in compliance with federally mandated [...] Surgical Pathology and Flow Cytometry Departments of [facility]. It has not been cleared or approved by the U. S. Food and Drug Administration. IMAGES AND SCANNED DOCUMENTS, IF INCLUDED, ONLY VIEWABLE IN PDF VERSION OF REPORT us Trey Arroyo MD LAB PATHOLOGY ORDERAB LES Final Result PATHOLOGY [facility] 3rd Floor [place], [place] [phone] * EGD (08/02/2024 1:15 PM BUILD MASTER) Anatomical Region Laterality Modality Other Narrative Procedure Note Trey Arroyo MD - 08/02/2024 1:15 PM CST [facility] Patient Name: Naye Cantu Procedure Date: 08/02/2024 1:15 PM Date of : 1965 Admit Type: Outpatient Age: 58 Gender: Female Attending MD: Trey Arroyo M.D. Room: [facility] ENDOSCOPY [facility] 8 Note Status: Addendum [...] passed under direct vision. The GIF [id number] endoscope was introducedthrough the mouth, and advanced [...] During normal business hours - [facility]: [phone] After hours, evening, nights, weekends and holidays- Please call the hospital operator electronic warfare at and ask for the GI fellow diamond assorter. Attending Participation: I personally performed the entire [...] * Hepatitis C antibody (07/06/2020 2:58 PM BUILD MASTER) Hep C Ab NON-REACTI VE NON-REACT GIA [facility] SIGNAL TO CUT-OFF 0.02 <1.00 [facility] Comment: HCV antibody was non-reactive. There is no laboratory evidence of HCV infection. In most cases, no further action is required. However, if recent HCV exposure is suspected, a test for HCV RNA (test code 85184) is suggested. For additional information please refer to http://education.Bloglovin/faq/IBK42u6 (This link is being provided for informational/ educational purposes only.) Blood specimen (specimen) 07/06/2020 2:58 PM BUILD MASTER 07/06/2020 3:00 PM BUILD MASTER Narrative [facility] - 07/11/2020 9:33 PM BUILD MASTER PATIENT UNABLE TO VOID; ADVISED TO RETURN FOR COLLECTION. Olga MONTES LAB MICROBIOLOGY - GENERA L ORDERABLES Final Result [facility] [address] [place] [address] from Last 3 Months or Most Recently Relevant to Health Maintenance Insurance MEDICARE IDNM MEDICARE [facility] MEDICARE MEDICARE IDPA Advance Directives For more information, please contact: [phone] * Full Code (Latest Code Status on [...] 6:47 AM 04/25/2020 10:09 PM Care Teams Activity Aid Relationship Specialty Start Date End Date Tom Paz MD PCP - General 09/09/16 aTb Taylor MD [address] [place] [address] Consulting Physician Cardiology 01/03/20 Favian Caceres MD [facility] [place] [address] Consulting Physician Rheumatology 08/28/23
--- OUTSIDE RECORDS SUMMARY | 2024-10-19 08:39 | XMS_ITS | Patient Health Record ---
Author Organization [facility] Orthopedics [facility] Address [address] [place], [place] [id number] Care Team Providers Care Nurse Charge Rn Name Role Phone Jackson BRYANT, Tom Primary Care Provider [phone] Cecilia Nicole Unavailable [phone] ALLERGIES Allergen (clinical drug ingredient) Drug/Non Drug [...] osteoarthritis of right knee (M17.11) Active confirmed [id number] Problem Closed nondisplaced fracture of acromial end of left clavicle, initial encounter (S42.035A) Active confirmed [id number] Problem Closed nondisplaced fracture of acromial end of left clavicle with routine healing, subsequent encounter (S42.035D) Active confirmed [id number] Problem Right hip pain (M25.551) Active confirmed Right hip pain ([id number]) Problem Left hip pain (M25.552) Active confirmed Arthralgia of t he pelvic region and thigh (003133030) Problem Primary localized osteoarthritis of right knee (M17.11) Active confirmed Primary osteoarthritis (027878883) Problem Pes anserine bursitis (M70.50) Active confirmed [id number] PLAN OF TREATMENT Pending Test Test Name Order Date X ray : Hip, left, 2 02/24/2018 X ray : Hip, right, 2 02/24/2018 X ray : Knee, right 3 views 11/30/2017 Insurance Providers Payer Name Payer Address Payer Phone Subscriber Number Group Number Insured Name Patient Relationship to Insured Coverage Start Date Coverage End Date Medicare Services [address] [address] [place] [address] [id number] Naye Hart Self - patient is the insured 0 Medicaid [address] [place] [address] [id number] Naye Hart Self - patient is the [...]
--- OUTSIDE RECORDS SUMMARY | 2024-10-19 08:39 | XMS_ITS | Encounter Summary ---
Author Organization [facility] Healthcare Address [address] [place] [address] Care Team Providers Care Clinical Biochemical Geneticist Name Role Phone Tom Paz MD Primary Care Provider + [phone] Tab Taylor MD Unavailable Favian Caceres MD Unavailable Reason for Visit * Reason Onset Date Comments Scheduling Appointments 04/15/2024 Schedule patient for Imaging Genicular RFA Right (45000) and 1m follow Encounter Details Date Type Department Care Team (Late st Contact Info) Description 04/15/2024 Telephone [facility] [address] [address], [address] [place] [id number] Dougie Lord MD [address] [address] Scheduling Appointments (Schedule patient for Imaging Genicular RFA Right (99919) and 1m follow ) Social History Tobacco Use Types Packs/Day Years Used Date Smoking Tobacco: Never Passive Smoke Exposure: Past Smokeless Tobacco: Never Alcohol Use Standard Drinks/Week Comments No 0 (1 standard drink = 0.6 oz pur e alcohol) [facility] Utilities Answer Date Recorded In the past 12 months has [employer] electric, gas, oil, or water company threatened [...] any clubs o r organizations such as religious groups, unions, fraternal or athletic groups, or [...] place to sleep or slept in a longterm (including now)? No 11/02/2023 Housing Stability Vital Sign Answer Thang e Recorded In the last 12 months, was t here a time when you were not able to pay the mortgage or rent on time? No 02/11/2024 In the past 12 months, how m any times have you moved where you were living? 0 02/11/2024 At any time in the past 12 m ont, were you homeless or living in a longterm (including now)? No 02/11/2024 Personal Safety Answer Date Recorded Have you ever been in or are you currently in a harmful physical or emotional relationship or is someone making you feel afraid or unsafe? 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 Gender Identity Not on file Sexual Orientation Not on file documented as of this encounter Plan of Treatment Upcoming Encounters Date Type Department Care Team (Latest Contact Info) Description 10/21/2024 7:30 AM CDT Hospital Encounter [facility] Operating Room [address] [place] [address] Hugo Ordoñez Jr., MD [address] [place] [address] 10/21/2024 7:30 AM CDT - 10/21/2024 9:00 AM CDT Surgery [facility] Operating Room [address] [place] [address] Hugo Ordoñez Jr., MD [address] [place] [address] REPOSITION PERMANENT PACEMAKER LEAD Scheduled Procedures Name Priority Associated Diagnoses Date/Ti me REPOSITION PERMANENT PACEMAKER LEAD Cardiac pacemaker in situ Shortness of breath Chronic diastolic heart failure (HCC) 10/21/2024 7:30 AM CDT documented as of this encounter Goals Goal Patient Goal Type Associated Problems Recent Progress Patient-Stated? Author CCM Chronic Pain Care Plan Chronic Care Management No Osman, Ahli A., RN Note: Problem: Chronic Pain Goals: [...] on stairs Contact your local community or [facility] for information on exercise, fall prevention programs, or options for improving home safety. documented as of this encounter Visit Diagnoses Not on filedocumented in this encounter Care Teams Clinical Biochemical Geneticist Relationship Specialty Start Date End Date Tom Paz MD PCP - General 09/09/16 Tab Taylor MD [address] [place] [address] Consulting Physician Cardiology 01/03/20 Favian Caceres MD [address] [place] [address] Consulting Physician Rheumatology 08/28/23 documented as of this encounter
--- OUTSIDE RECORDS SUMMARY | 2024-10-19 08:39 | XMS_ITS | Encounter Summary ---
Author Organization [facility] Healthcare Address [address] [place] [address] Care Team Providers Care Gear Technician Name Role Phone Tom Paz MD Primary Care Provider + [phone] Tab Taylor MD Unavailable [phone] Favian Caceres MD Unavailable [phone] Encounter Details Date Type Department Care Team (Late st Contact Info) Description 10/18/2024 Orders Only [facility] Operating Room [address] [place] [address] Hugo Ordoñez Jr., MD [address] [place] [address] Cardiac pacemaker in situ (Primary Dx); Shortness of breath; Chronic diastolic heart failure (HCC) Social History Tobacco Use Types Packs/Day Years Used Date Smoking Tobacco: Never Passive Smoke Exposure: Past Smokeless Tobacco: Never Alcohol Use Standard Drinks/Week Comments No 0 (1 standard drink = 0.6 oz pur e alcohol) [facility] Utilities Answer Date Recorded In the past 12 months has [employer] electric, gas, oil, or water company threatened [...] often do you attend chur ch or synagogue services? More than 4 times per year 02/11/2024 Do you belong to any clubs o r organizations such as mandaen groups, unions, fraternal or athletic groups, or [...] place to sleep or slept in a half-way (including now)? No 11/02/2023 Housing Stability Vital [...] were you homeless or living in a half-way (including now)? No 02/11/2024 Personal Safety Answer Date Recorded Have you ever been in or are you currently in a harmful physical or emotional relationship or is someone making you feel afraid or unsafe? 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 Gender Identity Not on file Sexual Orientation Not on file documented as of this encounter Plan of Treatment Upcoming Encounters Date Type Department Care Team (Latest Contact Info) Description 10/21/2024 7:30 AM CDT Hospital Encounter [facility] Operating Room [address] [place] [address] Hugo Ordoñez Jr., MD [address] [place] [address] 10/21/2024 7:30 AM CDT - 10/21/2024 9:00 AM CDT Surgery [facility] Operating Room [address] [place] [address] Hugo Ordoñez Jr., MD [address] [place] [address] REPOSITION PERMANENT PACEMAKER LEAD Scheduled Procedures Name [...] on stairs Contact your local community or [facility] for information on exercise, fall prevention programs, or options for improving home safety. documented as of this encounter Visit Diagnoses Diagnosis Cardiac pacemaker in situ- Primary Shortness of breath Chronic diastolic heart failure (HCC) Chronic diastolic heart failure Cardiac pacemaker in situ Shortness of breath Chronic diastolic heart failure (HCC) Chronic diastolic heart failure Cardiac pacemaker in situ Shortness of breath Chronic diastolic heart failure (HCC) Chronic diastolic heart failure documented in this encounter Orders Case Request Count Last Ordered Date First Orde red Date CASE REQUEST IMPROVEMENT SPECIALIST 1 10/18/2024 documented in this encounter Care Teams Gear Technician Relationship Specialty Start Date End Date Tom Paz MD PCP - General 09/09/16 Tab Taylor MD [address] [place] [address] Consulting Physician Cardiology 01/03/20 Favian Caceres MD [address] [place] [address] Consulting Physician Rheumatology 08/28/23 documented as of this encounter
--- OUTSIDE RECORDS SUMMARY | 2024-10-19 08:39 | XMS_ITS | Encounter Summary ---
Author Organization [facility] Healthcare Address [address] [place] [address] Care Team Providers Care Telephone Sales Representative Name Role Phone Tom Paz MD Primary Care Provider + [phone] Tab Taylor MD Unavailable [phone] Favian Caceres MD Unavailable [phone] Encounter Details Date Type Department Care Team (Late st Contact Info) Description 10/14/2024 Orders Only [facility] Information Management [address] [place] [address] Scanning, Provider Social History Tobacco Use Types Packs/Day Years Used Date Smoking Tobacco: Never Passive Smoke Exposure: Past Smokeless Tobacco: Never Alcohol Use Standard Drinks/Week Comments No 0 (1 standard drink = 0.6 oz pur e alcohol) [facility] Utilities Answer Date Recorded In the past 12 months has [employer], gas, oil, or water [employer] threatened to shut off services in your [...] How often do you attend chur or religion services? 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 Gender Identity Not on file Sexual Orientation Not on file documented as of this encounter Plan of Treatment Upcoming Encounters Date Type Department Care Team (Latest Contact Info) Description 10/21/2024 7:30 AM CDT Hospital Encounter [facility] Operating Room [address] [place] [address] Hugo Ordoñez Jr., MD [address] [place] [address] 10/21/2024 7:30 AM CDT - 10/21/2024 9:00 AM CDT Surgery [facility] Operating Room [address] [place] [address] Hugo Ordoñez Jr., MD [address] [place] [address] REPOSITION PERMANENT PACEMAKER LEAD Scheduled Procedures Name [...] home safety. documented as of this encounter Procedures Procedure Name Priority Date/Time Associated Diagnosis Comments SCAN - OTHER ORDERS 10/14/2024 documented in this encounter Results * SCAN - OTHER ORDERS (10/14/2024) us Provider Scanning Final Result documented in this encounter Visit Diagnoses Not on filedocumented in this encounter Care Teams Telephone Sales Representative Relationship Specialty Start Date End Date Tom Paz MD PCP - General 09/09/16 Tab Taylor MD [address] [place] [address] Consulting Physician Cardiology 01/03/20 Favian Caceres MD [address] [place] [address] Consulting Physician Rheumatology 08/28/23 documented as of this encounter
--- OUTSIDE RECORDS SUMMARY | 2024-10-19 08:39 | XMS_ITS | CONTINUITY OF CARE DOCUMENT ---
Author Name diaz charlenejez Address Unknown Organization [facility] Address [address] [place] [address] Phone [phone] Care Team Providers Care Textile Broker Name Role Phone Tiago BRYANT, Hugo Unavailable MIRELA BRYANT, ANGEL F Unavailable [phone] MIRELA BRYANT, ANGEL F Unavailable PROBLEMS Condition Status Date Provider Notes S/P [...] In-person encounter Office Visit Hugo Ordoñez MD [facility] - In-person encounter Office Visit Hugo Ordoñez MD [facility] Office - In-person encounter Office Visit Hugo Ordoñez MD [facility] - In-person encounter Office Visit Hugo Ordoñez MD [facility] - In-person encounter Office Visit Trent Pike MD [facility] - In-person encounter Office Visit Hugo Ordoñez MD [facility] - In-person encounter Office Visit Hugo Ordoñez MD [facility] - In-person encounter Office Visit Morgan Roy MD [facility] Atrial Fibrillation s/p AMULETGroin pain, right - In-person encounter Office Visit Hugo Ordoñez MD [facility] Office - In-person encounter Office Visit Hugo Ordoñez MD [facility] - In-person encounter Office Visit Hugo Ordoñez MD [facility] - In-person encounter Office Visit Hugo Ordoñez MD [facility] Office - In-person encounter Office Visit Hugo Ordoñez MD [facility] - In-person encounter Office Visit Hugo Ordoñez MD [facility] - In-person encounter Office Visit Morgan Roy MD [facility] - In-person encounter Office Visit Hugo Ordoñez MD [facility] Ischemia, transient cerebral NOS - In-person encounter Office Visit Hugo Ordoñez MD [facility] - In-person encounter Office Visit Hugo Ordoñez MD [facility] - In-person encounter Office Visit Hugo Ordoñez MD [facility] Office - In-person encounter Office Visit Hugo Ordoñez MD [facility] - In-person encounter Office Visit Hugo Ordoñez MD [facility] - In-person encounter Office Visit Hugo Ordoñez MD [facility] Office - In-person encounter Office Visit Hugo Ordoñez MD [facility] COVID-19 asymptomatic, no exposure, testing results unknown or negative screening - In-person encounter Office Visit Hugo Ordoñez MD [facility] - In-person encounter Office Visit Hugo Ordoñez MD [facility] Office - In-person encounter Office Visit Hugo Ordoñez MD [facility] - In-person encounter Office Visit Hugo Ordoñez MD [facility] - In-person encounter Office Visit Giorgio Catalan MD [facility] Office - In-person encounter Office Visit Hugo Ordoñez MD [facility] Office - In-person encounter Office Visit Hugo Ordoñez MD [facility] - In-person encounter Office Visit Hugo Ordoñez MD [facility] - In-person encounter Office Visit Jean Claude Rapides DO [facility] - In-person encounter Office Visit Hugo Ordoñez MD [facility] - In-person encounter Office Visit Jean Claude Calixto DO [facility] Office - In-person encounter Office Visit Jean Claude Calixto DO [facility] Office - In-person encounter Office Visit Hugo Ordoñez MD [facility] - In-person encounter Office Visit Tab Taylor MD [facility] - In-person encounter Office Visit Hugo Ordoñez MD [facility] Office - In-person encounter Office Visit Hugo Ordoñez MD [facility] - In-person encounter Office Visit Tab Taylor MD [facility] - In-person encounter Office Visit Tab Taylor MD [facility] - In-person encounter Office Visit Tab Taylor MD [facility] - In-person encounter Office Visit Tab Taylor MD [facility] Office - In-person encounter Office Visit Hugo Ordoñez MD [facility] - In-person encounter Office Visit Tab Taylor MD [facility] - In-person encounter Office Visit Hugo Ordoñez MD [facility] - In-person encounter Office Visit Tab Taylor MD [facility] Sinus node dysfunction - In-person encounter Office Visit Hugo Ordoñez MD [facility] Office - In-person encounter Office Visit Tab Taylor MD [facility] - In-person encounter Office Visit Hugo Ordoñez MD [facility] - In-person encounter Office Visit Tab Taylor MD [facility] - In-person encounter Office Visit Tab Taylor MD [facility] Presence of implantable loop recorder - In-person encounter Office Visit Tab Taylor MD [facility] Atrial Fibrillation s/p AMULET - In-person encounter Office Visit Hugo Ordoñez MD [facility] Hyperlipidemia - In-person encounter Office Visit Hugo Ordoñez MD [facility] Office - In-person encounter Office Visit Hugo Ordoñez MD [facility] Office - In-person encounter Office Visit Tab Taylor MD [facility] - In-person encounter Office Visit Tab Taylor MD [facility] SVT S/P ablation - In-person encounter Office Visit Tab Taylor MD [facility] - In-person encounter Office Visit Hugo Ordoñez MD [facility] - In-person encounter Office Visit Hugo Ordoñez MD [facility] - In-person encounter Office Visit Hugo Ordoñez MD [facility] Diastolic heart fail ure, chronic - In-person encounter Office Visit Hugo Ordoñez MD [facility] Shortness of breathEdema - localized - In-person encounter Office Visit Rodo Berg MD [facility] - In-person encounter Office Visit Rodo Berg MD [facility] - In-person encounter Office Visit Hugo Ordoñez MD [facility] - In-person encounter Office Visit Rodo Berg MD [facility] Inappropriate sinus tachycardia - In-person encounter Office Visit Rodo Berg MD [facility] - In-person encounter Office Visit Rodo Berg MD [facility] - In-person encounter Office Visit Hugo Ordoñez MD [facility] - In-person encounter Office Visit Hugo Ordoñez MD [facility] - In-person encounter Office Visit Genaro Jane MD [facility] - In-person encounter Office Visit Hugo Ordoñez MD [facility] - In-person encounter Office Visit Hugo Ordoñez MD [facility] Venous thrombosis - In-person encounter Office Visit Hugo Ordoñez MD [facility] - In-person encounter Office Visit Hugo Ordoñez MD [facility] Palpitations - In-person encounter Office Visit Hugo Ordoñez MD [facility] - In-person encounter Office Visit Hugo Ordoñez MD [facility] - In-person encounter Office Visit Hugo Ordoñez MD [facility] - In-person encounter Office Visit Hugo Ordoñez MD [facility] - In-person encounter Office Visit Hugo Ordoñez MD [facility] - In-person encounter Office Visit Hugo Ordoñez MD [facility] - In-person encounter Office Visit Hugo Ordoñez MD [facility] - In-person encounter Office Visit Hugo Ordoñez MD [facility] - In-person encounter Office Visit Hugo Ordoñez MD [facility] - In-person encounter Office Visit Hugo Ordoñez MD [facility] REFLEX SYMPATHETIC DYSTROPHY OF THE LOWER LIMBHypotensionSYNCOPE VITAL SIGNS Date Observation Value Provider Body Mass Index (Ratio) 29.66 kg/m2 Bruce Ordoñez MD blood pressure, diastolic 82 mm[Hg] Aimee Shea blood pressure, systolic 136 mm[Hg] [facility], [facility] 96 % [facility] pulse [facility] 72 /min Amarilys Shea blood pressure, cuff size regular Aimee [facility] weight E&M 198 [lb_av] [facility] height E&M 68.5 [in_i] [facility]ilys [facility] Body Mass Index (Ratio) 29.81 kg/m2 [...] Mass Index (Ratio) 29.37 kg/m2 Gildardo rashad Porfirio blood pressure, cuff size regular Ke [...] cordovafreddie pulse rate 91 /min Kendra Jernigan [facility] weight E&M 196 [lb_av] Kendra Jernigan er height E&M 68.5 [in_i] Kendra Jernigan [facility] Body Mass Index (Ratio) 28.77 kg/m2 [...] Padmaja Faulkner respiratory rate E&M 12 /min Padmjaa Faulkner pulse rate 70 /min Padmaja Faulkner [...] Gruenenfelder pulse rate 108 /min Kendra Rashiduenesalliee [facility] oxygen saturation, oximetry 97 % Kendra [...] penelopenffreddie pulse rate 79 /min Kendra Conradonekatie [facility] weight E&M 199 [lb_av] Kendra Conradonekatie gonsalez [...] cullenenefreddy pulse rate 75 /min Kendra Jernigan [facility] weight E&M 193 [lb_av] Kendra Jernigan [facility] height E&M 68.5 [in_i] Kendra Jernigan [facility] Body Mass Index (Ratio) 29.51 kg/m2 Bruce Ordoñez MD blood pressure, diastolic 97 mm[Hg] Madeline patelLogjuan m blood pressure, systolic 136 mm[Hg] Amee [...] navarro pulse rate 81 /min Kendra Jernigan [facility] weight E&M 190 [lb_av] Kendra Jernigan [facility] height E&M 68.5 [in_i] Kendra Jernigan [facility] Body Mass Index (Ratio) 28.47 kg/m2 [...] navarro pulse rate 82 /min Kendra Jernigan [facility] weight E&M 192 [lb_av] Kendra Jernigan [facility] height E&M 68.5 [in_i] Kendra Jernigan [facility] Body Mass Index (Ratio) 28.77 kg/m2 Bruce Ordoñez MD blood pressure, diastolic 75 mm[Hg] Joanie Santamaria blood pressure, systolic 117 mm[Hg] Sujatha Santamaria oxygen saturation, oximetry 98 % Rachel Santamaria respiratory rate E&M 20 /min Deepthi Santamaria pulse rate 86 /min Rachel Lakhwinder [facility] weight E&M 192 [lb_av] Rachel Keane [facility] blood pressure, cuff size regular Joanie Cristiane Santamaria height E&M 68.5 [in_i] Rachel norton Body Mass Index (Ratio) 27.57 kg/m2 Bruce Ordoñez MD blood pressure, diastolic 97 mm[Hg] Ca therine Travis blood pressure, systolic 138 mm[Hg] Cat herine Travis oxygen saturation, oximetry 97 % Corinne Minto respiratory rate E&M 16 /min Catheri ne Minto pulse rate 76 /min Corinne Travis weight [...] ne Travis pulse rate 92 /min Corinne Minto weight E&M 182 [lb_av] Corinne Travis blood pressure, cuff size regular Ca therine Minto height E&M 68.5 [in_i] Corinne Travis Body [...] blood pressure, diastolic 74 mm[Hg] Pa ris [place] blood pressure, systolic 136 mm[Hg] Par [place] oxygen saturation, oximetry 98 % [place]ia [place] respiratory rate E&M 18 /min Sophia Armijo neda pulse rate 74 /min [place] height E&M 68.5 [in_i] Sophia [place] Body Mass Index (Ratio) 28.35 kg/m2 Sund [...] blood pressure, cuff size regular Ca therine Minto blood pressure, diastolic 102 mm[Hg] Ca therine Minto blood pressure, systolic 125 mm[Hg] Cat herine Minto oxygen saturation, oximetry 96 % Corinne Travis respiratory rate E&M 14 /min Catheri ne Travis pulse rate 92 /min Corinne Travis height E&M 68.5 [in_i] Corinne Travis Body Mass Index (Ratio) 29.07 kg/m2 Bruce Ordoñez MD blood pressure, diastolic 90 mm[Hg] Madeline nkLogic blood pressure, systolic 136 mm[Hg] Aeme kLogic blood pressure, diastolic 90 mm[Hg] Daysi juan [place] blood pressure, systolic 136 mm[Hg] Cayden helanya Man[place] oxygen saturation, oximetry 98 % Denise [place] respiratory rate E&M 18 /min Kimberly e [place] pulse rate 67 /min Denise [place] weight E&M 194 [lb_av] Denise Manolo height E&M 68.5 [in_i] [facility] Body Mass Index (Ratio) 28.77 kg/m2 Bruce Ordoñez MD blood pressure, diastolic 80 mm[Hg] Madeline nkLogic blood pressure, systolic 118 mm[Hg] Amee kLogic blood pressure, cuff size regular Kr isheather Chris pulse rate 65 /min [facility] [place] blood pressure, diastolic 80 mm[Hg] Kr isty Chris blood pressure, systolic 118 mm[Hg] Kri sty Chris oxygen saturation, oximetry 97 % Va Chris respiratory rate E&M 19 /min [facility] [place] weight E&M 192 [lb_av] Va Chris height E&M 68.5 [in_i] Va Chris Body Mass Index (Ratio) 28.62 kg/m2 Rios is Rapides DO blood pressure, cuff size large Ke rri Gruenenfelder blood pressure, diastolic 72 mm[Hg] Ke rri Gruenenfelder blood pressure, systolic 110 mm[Hg] Ker ri Gruenenfelder oxygen saturation, oximetry 98 % Kendra Mikekelsiesalliefelicianahun respiratory rate E&M 16 /min Kendra [place] melanie pulse rate 75 /min Kendra Jernigan [facility] weight E&M 191 [lb_av] Kendra Jernigan er height E&M 68.5 [in_i] Kendra Jernigan [facility] Body Mass Index (Ratio) 28.92 kg/m2 [...] Mass Index (Ratio) 28.62 kg/m2 Rios tom Rapides DO blood pressure, diastolic 72 mm[Hg] Mi juan [place] blood pressure, systolic 130 mm[Hg] [facility] helle [place] blood pressure, resting No Román dent [place] oxygen saturation, oximetry 98 % Denise [place] respiratory rate E&M 18 /min Kimberly e [place] pulse rate 67 /min Denise [place] weight E&M 191 [lb_av] Denise [place] height E&M 68.5 [in_i] Denise Manolo Body [...] blood pressure, diastolic 74 mm[Hg] Cy ntemilee Franco blood pressure, systolic 116 mm[Hg] Anahy [...] Mary Nelson respiratory rate E&M 16 /min Mayr Nelson pulse rate 95 /min Mary Nelson [...] Sania Block respiratory rate E&M 16 /min [facility] y Block height E&M 68.5 [in_i] [facility] Body Mass Index (Ratio) 27.72 kg/m2 Emanuel Heller blood pressure, cuff size regular Bradford isheather Chris pulse rate 89 /min Va Chris oxygen saturation, oximetry 99 % Va Chris blood pressure, diastolic 70 mm[Hg] Kr isty [place] blood pressure, systolic 122 mm[Hg] Bradfordi estuardo Castilloby respiratory rate E&M 19 /min [facility] [place] weight E&M 185 [lb_av] Va Chris height E&M 68.5 [in_i] [facility] [place] Body Mass Index (Ratio) 26.82 kg/m2 Grisel [...] % Chastity Jaime pulse rate 88 /min [facility] blood pressure, diastolic 84 mm[Hg] astity Jaime blood pressure, systolic 130 mm[Hg] Gisele stity Jaime respiratory rate E&M 16 /min Chastit y Jaime weight E&M 185 [lb_av] [facility] Jaime height E&M 68.5 [in_i] [facility] Jaime Body Mass Index (Ratio) 28.17 kg/m2 [...] Sania Block respiratory rate E&M 16 /min [facility] Block height E&M 68.5 [in_i] Sania Block [...] linton 'Aly respiratory rate E&M 16 /min [facility] O'Aly oxygen saturation, oximetry 99 % Lara O'Aly pulse rate 90 /min Lara O'Aly weight E&M 221 [lb_av] [facility] O'Aly height E&M 68.5 [in_i] [facility] O'Aly Body Mass Index (Ratio) 34.16 kg/m2 [...] stity Jaime oxygen saturation, oximetry 97 % [facility] Jaime pulse rate 73 /min [facility] Jaime respiratory rate E&M 16 /min Giselestit y Jaime weight E&M 227 [lb_av] [facility] Jaime height E&M 68.5 [in_i] [facility] (Ratio) 33.71 kg/m2 Bruce Ordoñez MD blood pressure, diastolic 80 mm[Hg] Bradford Castilloby blood pressure, systolic 120 mm[Hg] Aguila Castilloby respiratory rate E&M 16 /min Va Chris oxygen saturation, oximetry 94 % [facility] [place] pulse rate 78 /min Va Chris blood pressure, cuff size regular Bradford Castilloby weight E&M 225 [lb_av] Va Chris height E&M 68.5 [in_i] [facility] [place] blood pressure, diastolic 94 mm[Hg] Cordell Carter [...] Deneen [place] oxygen saturation, oximetry 95 % Dneeen [place] respiratory rate E&M 18 /min Deneen [...] Perez respiratory rate E&M 16 /min Va Perez Body Mass Index (Ratio) 30.02 kg/m2 Vin Perez weight E&M 200.4 [lb_av] Va Perez blood pressure, diastolic 97 mm[Hg] Il ayan Juarez blood pressure, systolic 136 mm[Hg] [...] Va Perez blood pressure, diastolic 78 mm[Hg] Il ayan Larry blood pressure, systolic 122 mm[Hg] Tori derick Larry respiratory rate E&M 16 /min Brianna Larry pulse rate 103 /min Brianna Larry oxygen saturation, oximetry 97 % Brianna Larry Body Mass Index (Ratio) 28.62 kg/m2 [facility] jim Juarez weight E&M 191 [lb_av] Brianna Larry respiratory rate E&M 20 /min Brianna Larry pulse rate 106 /min Brianna Larry oxygen saturation, oximetry 99 % Brianna Larry blood pressure, diastolic 102 mm[Hg] Me ayan Larry blood pressure, systolic 144 mm[Hg] Tori derick Larry Body Mass Index (Ratio) 29.96 kg/m2 [facility] jim Juarez weight E&M 200 [lb_av] Brianna Larry blood pressure, diastolic 90 mm[Hg] Francisco Hernandezdney blood pressure, systolic 120 mm[Hg] Olaf Hernandezdney pulse rate 106 /min Franciscomendel Hernandezdney oxygen saturation, oximetry 97 % Franciscomendel Hernandezdney respiratory rate E&M 24 /min Sg Hernandezdney Body Mass Index (Ratio) 30.29 kg/m2 Elpidio Torrez weight E&M 202.2 [lb_av] Sg Hernandezdney Body Mass Index (Ratio) 29.51 kg/m2 [facility] jim Larry weight E&M 197 [lb_av] Brianna Larry respiratory rate E&M 20 /min Brianna Larry pulse rate 108 /min Brianna Larry oxygen saturation, oximetry 98 % Brianna Larry blood pressure, diastolic 79 mm[Hg] Il ayan Larry blood pressure, systolic 122 mm[Hg] [...] Álvarez ANN blood pressure, diastolic 80 mm[Hg] Chanelle Álvarez NM blood pressure, systolic 122 mm[Hg] Saqib Álvarez NM pulse rate 89 /min Celine Álvarez ANN respiratory rate E&M 16 /min Celine Álvarez NM weight E&M 190 [lb_av] Celinemame Álvarez NM blood pressure, diastolic, right arm 72 m m[Hg] [facility] blood pressure, systolic, right arm 100 m m[Hg] [facility] blood pressure, diastolic 72 mm[Hg] [facility] blood pressure, systolic 100 mm[Hg] [facility] pulse rate 105 /min [facility] oxygen saturation, oximetry 93 % [facility] respiratory rate E&M 17 /min [facility] weight E&M 185 [lb_av] Cristiane Rust blood pressure, diastolic 60 mm[Hg] Ann nathaliakosntantin O'Aly blood pressure, systolic 86 mm[Hg] Gricelda [...] LinkLogic 3.5-5.2 sodium, serum 143 mmol/L LinkLogic [phone]/03 /19 urea nitrogen/creatinine ratio, serum 45 LinkLogic [...] Not Estab. platelet count 201 X10E3/UL LinkLogic [phone]/03 /19 red blood cell distribution width 12.5 [...] 90 mL/min/{1.7 3_m2} LinkLogic >=60 Normal C, [facility] [address] [place] [address] aspartate aminotransferase (SGOT), serum 34 1/L LinkLogic 10-45 Normal C, [place] [address] alanine aminotransferase (SGPT), serum 35 1/L LinkLogic 7-45 Normal , [place] [address] Alkaline phosphatase 89 LinkLogic 40-130 Normal C, [place] [address] albumin, serum 4.3 g/dL LinkLogic 3.5-5.0 Normal C, [place] [address] protein, total, serum 7.1 g/dL LinkLogic 6.5-8.5 Normal , [place] [address] bilirubin, serum, total 0.7 mg/dL LinkLogic 0.1-1.2 Normal C, [place] [address] calcium, serum 9.2 mg/dL LinkLogic 8.5-10.3 Normal , [place] [address] blood glucose, random 74 mg/dL LinkLogic 70-199 Normal , [place] [address] creatine, serum 0.76 mg/dL LinkLogic 0.60-1.10 Normal C, [place] [address] urea nitrogen, blood 12 mg/dL LinkLogic 6-25 Normal C, [place] [address] anion gap, serum 9 mmol/L LinkLogic 2-15 Normal C, [place] [address] carbon dioxide, venous blood 28 mmol/L LinkLogic 22-32 Normal , [place] [address] chloride, serum 96 mmol/L LinkLogic 97-110 Low C, [place] [address] potassium, serum 3.8 MMOL/L LinkLogic 3.3-4.9 Normal C, [place] [address] sodium, serum 133 mmol/L LinkLogic 135-145 Low C, [place] [address] activated partial thromboplastin time (aPTT) 50 s LinkLogic 28-38 High C, [place] [address] international normalized ratio (INR) 3.50 LinkLogic 0.90-1.20 High C, [place] [address] prothrombin time (patient) 39.9 s LinkLogic 10.3-13.7 High C, [place] [address] Absolute Basophils 0.0 K/CUMM LinkLogic 0.0-0.1 Normal C, [place] [address] Absolute Monocytes 0.6 K/CUMM LinkLogic 0.2-0.8 Normal , [place] [address] Absolute Lymphocytes 1.4 K/CUMM LinkLogic 0.8-3.3 Normal , [place] [address] Absolute Neutrophils 4.7 K/CUMM LinkLogic 1.5-6.5 Normal C, [place] [address] nucleated red blood cells as percent of [...] LinkLogic 3.5-5.2 sodium, serum 142 mmol/L LinkLogic [phone]/06 /14 urea nitrogen/creatinine ratio, serum 20 LinkLogic [...] Not Estab. platelet count 233 X10E3/UL LinkLogic [phone]/04 /22 red blood cell distribution width 13.1 [...] LinkLogic 3.5-5.2 sodium, serum 144 mmol/L LinkLogic 333-075 9961/04 /22 urea nitrogen/creatinine ratio, serum 17 LinkLogic [...] Not Estab. platelet count 252 X10E3/UL LinkLogic [phone]/10 /27 red blood cell distribution width 13.4 [...] Not Estab. platelet count 217 X10E3/UL LinkLogic [phone]/09 /24 red blood cell distribution width 12.9 [...] LinkLogic 3.5-5.2 sodium, serum 144 mmol/L LinkLogic [phone]/06 /11 urea nitrogen/creatinine ratio, serum 17 LinkLogic [...] Not Estab. platelet count 224 X10E3/UL LinkLogic [phone]/06 /11 red blood cell distribution width 13.8 [...] LinkLogic 3.5-5.2 sodium, serum 142 mmol/L LinkLogic [phone]/05 /08 urea nitrogen/creatinine ratio, serum 22 LinkLogic [...] Not Estab. platelet count 225 X10E3/UL LinkLogic [phone]/05 /08 red blood cell distribution width 13.7 [...] Not Estab. platelet count 235 X10E3/UL LinkLogic [phone]/04 /29 red blood cell distribution width 13.6 [...] Not Estab. platelet count 235 X10E3/UL LinkLogic 096-675 6310/12 /04 red blood cell distribution width 14.3 [...] LinkLogic 3.5-5.2 sodium, serum 144 mmol/L LinkLogic [phone]/05 /23 urea nitrogen/creatinine ratio, serum 20 LinkLogic [...] LinkLogic 3.5-5.2 sodium, serum 143 mmol/L LinkLogic [phone]/02 /07 urea nitrogen/creatinine ratio, serum 18 LinkLogic [...] Not Estab. platelet count 239 X10E3/UL LinkLogic [phone]/02 /07 red blood cell distribution width 13.9 [...] celecoxib 200 mg capsule active Oh Celestin DNP,SUPERVISOR [employer] leflunomide 20 mg tablet active VENTURA Rao [...] personal history of marijuana use no Mario Helix drug use no Mario Porfirio alcohol use no Mario Porfirio passive cigarette sm kelvin exposure no Mario Helix smoking status Never smoker Mario Helix personal history of marijuana use no Oh Celestin DNP,SUPER[employer] drug use no Oh Celestin DN P,SUPER[employer] alcohol use no Oh Celestin DN P,SUPER[employer] passive cigarette sm kelvin exposure no Oh Celestin DNP,SUPER[employer] smoking status Never smoker Oh Celestin DNP,SUPER[employer] drug use none Hugo Ordoñez M D [...] Hugo Becker D alcohol use no Hugo Bceker D passive cigarette sm kelvin exposure no [...] of grandchildren Hugo Ordoñez MD Eliana Nalluri DITCHER drug use none Eliana Nalluri DITCHER alcohol use no Eliana Nalluri DITCHER passive cigarette sm kelvin exposure no Eliana Nalluri DITCHER smoking status Never smoker Eliana Nallu ri DITCHER drug use none Brendamaxime Collins alcohol use [...] averag e drinks per day no Corinne Minto passive cigarette sm kelvin exposure no Corinne Travis smoking status Never smoker Corinne Ana s social history E&M Marital Statu s: / L sharita alone E thnicity: Smoking History: P shahab has never smoked. Hugo Ordoñez MD social history reviewed E&M revi ewed - no changes required Hugo Ordoñez MD seatbelt usage 100 % Corinne Aan s physical exercise, frequency, days per week yes Corinne Minto caffeine use, averag e drinks per day [...] Ordoñez MD seatbelt usage 100 % Sophia [place] physical exercise, frequency, days per week yes [place] caffeine use, averag e drinks per day no [place]ia [place] passive cigarette sm kelvin exposure no [place] smoking status Never smoker [facility] social history E&M Marital Statu s: / L sharita alone E thnicity: Smoking History: P shahab has never smoked. Hugo Ordoñez MD social history reviewed E&M revi ewed - no changes required Hugo Ordoñez MD seatbelt usage 100 % Corinne Ana s physical exercise, frequency, days per week yes Corinne Minto caffeine use, averag e drinks per day no Corinne Minto passive cigarette sm kelvin exposure no Corinne Minto smoking status Never smoker Corinne Ana s [...] exercise, frequency, days per week yes [facility] [place] caffeine use, averag e drinks per day no [facility] passive cigarette sm kelvin exposure no [facility] [place] smoking status Never smoker [facility] [place] social history reviewed E&M revi ewed - [...] exercise, frequency, days per week yes Mary Nelsno caffeine use, averag e drinks per day [...] sharita alone E thnicity: Smoking History: P sahhab has never smoked. Jean Claude Calixto DO [...] Hugo Ordoñez MD seatbelt usage 100 % Tumri physical exercise, frequency, days per week yes [...] Hugo Ordoñez MD seatbelt usage 100 % Tum[place] physical exercise, frequency, days per week yes [...] Yo Mayberrynacho seatbelt usage 100 % [place] physical exercise, frequency, days per week yes [facility] [place] caffeine use, averag e drinks per day no [facility] [place] passive cigarette sm kelvin exposure no [facility] [place] social history reviewed E&M revi ewed - no changes required Celestine Cam seatbelt usage 100 % Tonsha Hensley physical exercise, frequency, days per week yes Tonsha Hensley caffeine use, averag e drinks per day no Tonsha Hensley passive cigarette sm kelvin exposure no Tonsha Hensley smoking status [facility] E&M revi ewed - no changes required Celestine Cam social history reviewed E&M revi ewed - no changes required [facility] social history E&M Marital Statu s: / L sharita alone E thnicity: Smoking History: Caroline gudino has never smoked. Hugo Ordoñez MD social history reviewed E&M revi ewed - no changes required Hugo Ordoñez MD seatbelt usage 100 % [facility] physical [facility], frequency, days per week yes Tons [place] caffeine use, averag e drinks per day no [facility] passive cigarette sm kelvin exposure no Tonsha Hensley smoking status Never smoker [facility] reviewed E&M revi [...] uHgo Ordoñez MD seatbelt usage 100 % [facility] physical [facility], frequency, days per week yes [facility] caffeine use, averag e drinks per day no [facility] passive cigarette sm kelvin exposure no [facility] status Never smoker [facility] social history E&M Marital Statu [...] Ordoñez MD seatbelt usage 100 % [employer] physical exercise, frequency, days per week yes [facility] caffeine use, averag e drinks per day no Sania Briana passive cigarette sm kelvin exposure no Sania Briana smoking status Never smoker [facility] social history E&M Marital Statu [...] none [facility] alcohol use no [facility] [place] caffeine use, averag e drinks per day no [facility] [place] drug use none [facility] passive cigarette sm kelvin exposure no [facility] [place] smoking status Never smoker [facility] social [...] revi ewed - no changes required Hugo Odroñez MD seatbelt usage 100 % Brianna Juarez [...] use, averag e drinks per day no [facility], average drinks per day none [facility] smoking status Non-smoker [facility] MENTAL STATUS Date Observation Value Provider assessment [...] Payer name Policy type / Coverage type [place] red democrat ID [facility] [id number] [place] MED[place]ARE PART B Medicare [id number] ADVANCE DIRECTIVES Name Date DISCUSSED - NO DECISION MADE TREATMENT PLAN Date Name Performer [id number],S, Hugo uriarte MD [id number],SHugo MD [id number],S, Hugo uriarte MD [id number],S, Hugo uriarte MD [id number],SHugo MD [id number],S, Hugo uriarte MD [id number],SHugo MD [id number],B, Hugo uriarte MD [id number],S, Hugo uriaret MD [id number],S, Hugo Ramada n [place] [id number],S, Hugo Ramada n [place] [id number],B, Hugo Ramada n [place] [id number],S, Hugo Ramada n [place] [id number],B, Hugo Ramada n [place] [id number],S, Hugo Ramada n [place] [id number],S, Hugo Ramada n [place] [id number],B, Hugo Ramada n [place] [id number],S, Hugo Ramada n [place] [id number],S, Hugo Ramada n [place] [id number],S, Hugo Ramada n OH [id number],S, Hugo Ramada n OH [id number],S, Hugo Ramada n [place] [id number],S, Hugo Ramada n [place] [id number],S, Hugo Ramada n [place] [id number],S, Hugo Ramada n [place] [id number],S, Hugo Ramada n OH [id number],S, Hugo Ramada n [place] [id number],S, Hugo Ramada n [place] [id number],S, Hugo Ramada n [place] [id number],S, Hugo Ramada n [place] [id number],S, Hugo Ramada n [place] [id number],S, Hugo Ramada kalani [place] [id number],S, Hugo Henson n [place] [id number],S, Hugo Silverioalana n [place] [id number],S, Hugo Silverioalana n [place] [id number],S, Hugo Natividad uriarte OH [id number],S, Hugo Natividad uriarte [place] [id number],S, Hugoshad Silverioalana uriarte [place] [id number],B,S teroids improved pain. Lab shows systemic inflammation. Hugo Ordoñez MD [id number],S, Hugo Natividad uriarte MD [id number],S, Hugo Natividad uriarte MD [id number],S, Hugo Natividad uriarte [place] [id number],B, Hugo Natividad uriarte [place] [id number],S, Hugoshad Silverioalana uriarte [place] [id number],S, Hugoshad Silverioalana uriarte [place] [id number],B, Hugo Natividad uriarte [place] [id number],S, Hugo Natividad uriarte [place] [id number],S, Hugoshad Silverioalana uriarte [place] [id number],S, Hugoshad Silverioalana uriarte [place] [id number],S, Hugo Natividad uriarte [place] [id number],S, Hugo Natividad uriarte [place] [id number],B,R 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 Hugo Ordoñez MD [id number],S, Hugo uriarte MD [id number],S, Hugo uriarte MD [id number],S, Hugo uriarte MD [id number],S, Hugo uriarte MD [id number],S, Hugo uriarte MD [id number],S, Hugo uriarte MD [id number],B, Hugo uriarte MD [id number],S, Hugo uriarte MD [id number],B, Hugo uriarte MD [id number],W,S eems pacer related. Will replace RV lead with a septal implant and try to remove old lead. Hugo Ordoñez MD [id number],S, Hugo uriarte MD [id number],B, Hugo uriarte MD [id number],S, Hugo uriarte MD [facility] Malina Blood Take your [...] functioning appropiately. No at/af burden. Oh Celestin DNP,[employer] Cardiology:Amulet in position on MARYSOL in march. Of warfarin and plavix. Device check reveals no AT/AF burden from ppm. W ILL NEED TO BE ON ABX FOR SBE PROPHYLAXIS INDEFINITELY WITH AMLET DEVICE IN THE LAAO H PCN ALLERGY HAS PROCEDURE FOR BLADDER SLING DONE AT [facility] W/ JESSICA UROLOGIST O K TO CONTINUE ON ASPRIRIN C LINDAMYCIN DOSE IS 600MG 30-60MIN BEFORE PROCEDURE FOR IE PROPHYLAXIS Oh Celestin DNP,[employer] Cardiology Hugo Ordoñez MD Cardiology Hugo Ordoñez [...] Ordoñez MD Cardiology:On OAC Eliana Nallur i DITCHER Cardiology:Mild sob with exertio n Eliana Nalluri DITCHER Cardiology:None Eliana Nalluri DITCHER Cardiology:EF 70% Her updated medication list for [...] 3 tabs seek medical attention Eliana Nalluri DITCHER Cardiology: H er updated medication list for this problem includes: Rosuvastatin 40 Mg Tablet (Rosuvastatin) ..... Take 1 tablet by mouth once a day Eliana Nalluri DITCHER Cardiology:AT episod e on 10/10/23 for 4m 30s, EGM appears t o show PAT. On warfarin for OAC Eliana Leahyluri DITCHER Cardiology:s/p PPM Eliana Boswell ri DITCHER Cardiology:RA 91%, R V 100% b attery 60% Eliana Leahyluri DITCHER Cardiology: W as recently in the hospital c/o heaviness in her chest . Normal EKG, stress test and echo h ad on eepisode of chest pain since dischrged from hospital, relieved with nitro Eliana Leahyluri DITCHER Cardiology:Bp stable today Selene Boswellri DITCHER Telehealth [facility] Telehealth Lele Brown Telehealth:complains [...] PPM if her symptoms fail to resolve. [id number] 120-130's, AsVP, 100% RV paced, Metoprolol increased to 50mg BID, much improved symptoms since these changes Linda Scott NP Electrophysiology Fo llow up : i nterrogation today 0% AF burden Linda Scott NP Electrophysiology Fo llow up :[id number], appears to be ST, 120-130's rate, AsVp, [...] 7 1/2 mins. total 131 episodes Lori Schwabjennifer SCOTT Electrophysiology- N P:pt reports intermittent [...] her symptoms fail to resolve. Lori Gilbertrenettajennifer DITCHER Electrophysiology: N ormal cath 04/16/2020 complicated by [...] DC PPM implant 06/2019. P resented to [facility] 03/2020 and was told by Creative Producer there she was having SVT . S [...] 03/2020 CHOL 195, Trig 213, HDL 37, [id number]. L ipoprotein 119.7 A polipoprotein B 114 Yo Heller Electrophysiology:Un derwent AV node ablation 12/2019 with prior DC PPM implant 06/2019. H ospitalized at [facility] and was told by Creative Producer there she was having SVT . S [...] (Aspirin) ..... One tab by mouth daily [facility] Cardiology: H er updated medication list for this problem includes: Warfarin Sodium 5 Mg Tablet (Warfarin sodium) ..... Take 1 tablet by mouth starting 7 days prior to procedure Aspirin Adult Low Dose 81 Mg Oral Tablet Delayed Release (Aspirin) ..... One tab by mouth daily [facility] TeleHealth: H er updated medication list for this problem includes: Warfarin Sodium 5 Mg Oral Tablet (Warfarin sodium) ..... One tab by mouth starting 7 days prior to procedure Aspirin Adult Low Dose 81 Mg Oral Tablet Delayed Release (Aspirin) ..... One tab by mouth daily [facility] TeleHealth: H er updated medication list for this problem includes: Warfarin Sodium 5 Mg Oral Tablet (Warfarin sodium) ..... One tab by mouth starting 7 days prior to procedure Aspirin Adult Low Dose 81 Mg Oral Tablet Delayed Release (Aspirin) ..... One tab by mouth daily [facility] TeleHealth: H er updated medication list for this problem includes: Warfarin Sodium 5 Mg Oral Tablet (Warfarin sodium) ..... One tab by mouth starting 7 days prior to procedure Aspirin Adult Low Dose 81 Mg Oral Tablet Delayed Release (Aspirin) ..... One tab by mouth daily [facility] TeleHealth:Reschedul e AV node ablation with carto and anesthesia after December 23, No need for CT [facility] TeleHealth: H er updated medication list for this problem includes: Aspirin Adult Low Dose 81 Mg Oral Tablet Delayed Release (Aspirin) ..... One tab by mouth daily [facility] TeleHealth: H er updated medication list for this problem includes: Aspirin Adult Low Dose 81 Mg Oral Tablet Delayed Release (Aspirin) ..... One tab by mouth daily [facility] TeleHealth [facility] Tele[facility]: H er updated medication list for this problem includes: Aspirin Adult Low Dose 81 Mg Oral Tablet Delayed Release (Aspirin) ..... One tab by mouth daily [facility] TeleHealth:No episod es reported for this session. I CM trend is stable. [facility] Cardiology Hugo Ordoñez MD Cardiology [...] Dr. Ordoñez to do PPM implant at [facility] for sinus node dysfunction. The following medications [...] tab by mouth daily Celestine Levy Electrophysiology [facility] Electrophysiology:Re mote Transmission: N o [...] Hugo Ordoñez MD Cardiology-seen with MD and DITCHER Maxime DOBBINS Cardiology-seen with MD and DITCHER : none noted on ILR Dionne WHITEHEADP Cardiology-seen with MD and DITCHER :Pt remains symptomatic with tachycardia interfering with [...] One tab by mouth daily Dionne Gamboa [facility] Cardiology:well heal ing scar a vised pt to apply ice pack on incision site. Celestine Levy Electrophysiology:IL R implantation O rders: E KG (CPT-06408) 9 9213 LTD. Complex (CPT-91912) 6 minute walk test (CPT-05911) Her updated medication list for this problem includes: Metoprolol Tartrate 25 Mg Oral Tablet (Metoprolol tartrate) ..... One tab. twice daily Aspirin Adult Low Dose 81 Mg Oral Tablet Delayed Release (Aspirin) ..... One tab by mouth daily Tab Taylor MD Electrophysiology: O rders: 9 9213 LTD. Complex (CPT-86756) 6 minute walk test (CPT-52305) L oop Rec Implant - [facility] (*) Her updated medication list for this problem includes: Metoprolol Tartrate 25 Mg Oral Tablet (Metoprolol tartrate) ..... One tab. twice daily Aspirin Adult Low Dose 81 Mg Oral Tablet Delayed Release (Aspirin) ..... One tab by mouth daily Tab Taylor MD Electrophysiology: O rders: 9 9213 LTD. Complex (CPT-58272) 6 minute walk test (CPT-71699) L oop Rec Implant - [facility] (*) Her updated medication list for this problem includes: Metoprolol Tartrate 25 Mg Oral Tablet (Metoprolol tartrate) ..... One tab. twice daily Aspirin Adult Low Dose 81 Mg Oral Tablet Delayed Release (Aspirin) ..... One tab by mouth daily Tab Taylor MD Electrophysiology:IL R implantation at [facility] with Dr. Tiago garcia evaluate ILR after [...] a day. Orders: 9 9214 MOD Complex (CPT-08457) B ASIC METABOLIC PANEL W/EGFR (09590) D -DIMER, QUANTITATIVE (8659) D -DIMER, QUANTITATIVE (8659) M obile Cardiac Tele (CPT-60451) Celestine Levy Cardiology Tab castaneda MD Cardiology: [...] a day. Tab Taylor [facility]: H er updated medication list [...] ..... One half tablet twice a day. [facility] Electrophysiology [facility] Electrophysiology: nuclear stress test Summary 1 [...] tablet twice a day. Orders: E KG (CPT-37345) 9 9256 HIGH Complex (CPT-04512) A BLATION w/ Anesthesia (*) M obile Cardiac Tele (CPT-37955) [facility] Ne w Patient : O rders: E KG (CPT-01553) 9 9215 HIGH Complex (CPT-59404) A BLATION w/ Anesthesia (*) Her updated [...] follow up : O rders: E KG (CPT-26013) BP today: 140/96 Prior BP: 136/92 (02/28/2013) [...] ..... Three times daily Orders: E KG (CPT-03155) BP today: 121/86 Prior BP: 127/88 (10/20/2011) [...] MD : O rders: C omplete Echo (CPT-81129) S tress Test - Adenosine (81973) Hugo Ordoñez MD : O rders: C omplete Echo (CPT-48600) Hugo Ordoñez MD : O rders: S tress Test - Adenosine (67793) E vent Recorder (*) BP today: 86/60 [...] Ordoñez MD complete d EKG Jean Claude Rapides DO comple jaden EKG Jean Claude Rapides DO comple jaden EKG Jean Claude Rapides DO comple jaden EKG Hugo Ordoñez MD [...] EKG Hugo Ordoñez MD complete d SNOMED-CT: 800077360566671 Current Medications Documented Hugo Ordoñez MD completed SNOMED-CT: 580402965622332 Current Medications Documented Hugo Ordoñez MD completed EKG Rodo Berg MD comp leted SNOMED-CT: 458046495402897 Current Medications Documented Rodo Berg MD completed EKG Rodo Berg MD comp leted SNOMED-CT: 494164715761798 Current Medications Documented Rodo Berg MD completed SNOMED-CT: 397050492551270 Current Medications Documented Hugo Ordoñez MD completed EKG Hugo Ordoñez MD complete d SNOMED-CT: 130106992501720 Current Medications Documented Hugo Ordoñez MD completed EKG Rodo Berg MD comp leted SNOMED-CT: 039603768434704 Current Medications Documented Rodo Berg MD completed SNOMED-CT: 093215452862266 Current Medications Documented Hugo Ordoñez MD completed Event Monitor Luis M Pagan completed Stress EKG Yonathan Bernard MD complet ed Regadenoson, 4 units Yonathan Bernard MD completed Cardiolite, 2 units Yonathan Bernard MD completed SPECT Images Yonathan Bernard MD compl eted SNOMED-CT: 774071734075803 Current Medications Documented Hugo Ordoñez MD completed Ambulatory BP Genaro Jane MD comp leted Ambulatory BP Genaro Jane MD comp leted EKG Genaro Jane MD complet ed SNOMED-CT: 450386035633750 Current Medications Documented Genaro Jane MD completed EKG Hugo Ordoñez MD complete d SNOMED-CT: 380841989098941 Current Medications Documented Hugo Ordoñez MD completed EKG Hugo Ordoñez MD complete d EKG Hugo Ordoñez MD complete d
--- OUTSIDE RECORDS SUMMARY | 2024-10-19 08:39 | XMS_ITS | Referral Summary ---
Author Organization [facility] Address [address] [place] [address] Care Team Providers Care Sales Relationship Manager Name Role Phone Tom Paz MD Primary Care Provider + [phone] Tab Taylor MD Unavailable [phone] Favian Caceres MD Unavailable [phone] Encounters Date Type Department Care Team Description 10/18/2024 Orders Only [facility] [address] [place] [address] Hugo Ordoñez Jr., MD Cardiac pacemaker in situ (Primary Dx); Shortness of breath; Chronic diastolic heart failure (HCC) 10/14/2024 Orders Only [facility] Health Information Management [address] [place] [address] Scanning, Provider 10/05/2024 Documentation Cardiology Sofiya Rosa NP 10/05/2024 12:04 PM CDT - 10/05/2024 11:59 PM CDT Hospital Encounter [facility] Radiology [address] [place] [address] Transient ischemic attack (TIA); Cerebrovascular disease, unspecified; Unspecified visual loss; Presence of cardiac pacemaker Discharge Disposition: Discharge to home or self care 10/05/2024 11:40 AM CDT - 10/05/2024 11:59 PM CDT Hospital Encounter [facility] Radiology [address] [place] [address] Encounter for imaging to screen for metal prior to magnetic resonance imaging (MRI) Discharge Disposition: Discharge to home or self care 10/05/2024 11:41 AM CDT - 10/05/2024 11:59 PM CDT Hospital Encounter [facility] Radiology [address] [place] [address] Discharge Disposition: Discharge to home or self care 09/02/2024 Telephone [facility] Dermatology [address] [place] [address] Va Maharaj Request Call Back 08/25/2024 7:24 AM CANDY STARCH MOLD PRINTER - 08/25/2024 11:59 PM CANDY STARCH MOLD PRINTER Hospital Encounter [facility] Radiology [address] [place] [address] Transient ischemic attack (TIA); Cerebrovascular disease, unspecified; Unspecified visual loss; Presence of cardiac pacemaker Discharge Disposition: Discharge to home or self care 08/25/2024 Orders Only [facility] Radiology [address] [place] [address] Katarzyna Gil, 08/23/2024 12:12 PM CANDY STARCH MOLD PRINTER - 08/23/2024 11:59 PM CANDY STARCH MOLD PRINTER Hospital Encounter [facility] Radiology [facility] [address] [place] [address] Pacemaker reprogramming/check ; Complete heart block (HCC) Discharge Disposition: Discharge to home or self care 08/23/2024 11:30 AM CANDY STARCH MOLD PRINTER Office Visit [facility] Cardiology [address] [place] [address] 8th [place] [address] [place] [address] Elise Ibarra NP Pacemaker reprogramming/check (Primary Dx); Complete heart block (HCC) 08/23/2024 11:00 AM CANDY STARCH MOLD PRINTER Ancillary Procedure [facility] Cardiology [facility] 8th [place] [address] [place] [address] Pacemaker reprogramming/check 08/23/2024 Orders Only [facility] Cardiology [address] [place] [address] 8th [place] [address] [place] [address] Elise Ibarra, SONIA Pacemaker reprogramming/check (Primary Dx) 08/02/2024 12:30 PM CANDY STARCH MOLD PRINTER - 08/02/2024 1:30 PM CANDY STARCH MOLD PRINTER Surgery [facility] Digestive Disease [address] [address] Trey Arroyo MD COLON BIOPSY 08/02/2024 1:07 PM CANDY STARCH MOLD PRINTER Anesthesia Event [address] [address] Rui Fuller MD McGowan, Jessica Lynn, NP 08/02/2024 11:02 AM CANDY STARCH MOLD PRINTER - 08/02/2024 3:29 PM CANDY STARCH MOLD PRINTER Hospital Encounter [address] [address] Trey Arroyo MD Dysphagia, unspecified type; Dyspepsia; Diarrhea, unspecified type Discharge Disposition: Discharge to home or self care 07/28/2024 10:30 AM CANDY STARCH MOLD PRINTER Office Visit [facility] [address] [place] [address] Claudia Cristobal PA Seronegative rheumatoid arthritis (HCC) (Primary Dx); Encounter for long-term (current) use of high-risk medication 07/26/2024 Telephone [facility] Specialty Services [address] [place] [address] Sarina Posey RN GI PROCEDURE 7 DAY PRE CALL 07/26/2024 Orders Only [facility] Health Information Management [address] [place] [address] Scanning, Provider from Last 3 Months Allergies Active Allergy [...] - blisters Etanercept Itching Low 02/24/2022 Gum [place] Unknown 05/12/2023 Gum Dnwfix-Jklvpq-Lbet-Alcoho l Blisters,Rash High 12/17/2021 Mastisol - blisters [...] 02/07/2021 Assessment & Plan (07/28/2024 11:19 AM CANDY STARCH MOLD PRINTER): Monitor routine labs while on immunosuppressive medications. [...] [employer] Assessment & Plan (09/22/2023 12:26 PM CANDY STARCH MOLD PRINTER): Monitor routine labs while on immunosuppressive medications. [...] QuantGold Assessment & Plan (09/11/2022 12:48 PM CANDY STARCH MOLD PRINTER): Monitor routine labs while on immunosuppressive medications. Recent 08/20 labs stable. 06/2020: Neg Hep B/C 03/2021: Neg QuantGold Assessment & Plan (07/01/2022 9:25 AM CANDY STARCH MOLD PRINTER): Monitor routine labs while on immunosuppressive medications. [...] QuantGold Assessment & Plan (08/19/2021 2:31 PM CANDY STARCH MOLD PRINTER): Monitor routine labs while on immunosuppressive medications. [...] Hospitalized for total of 8 days, at [facility] then [facility]. Had CT brain/neck angio that were [...] Hospitalized for total of 8 days, at [facility] and then [facility]. Had CT brain/neck angio that were [...] 07/24/2020 Assessment & Plan (07/24/2020 12:34 PM CANDY STARCH MOLD PRINTER): Her greatest pain complaint at this time [...] 07/24/2020 Assessment & Plan (07/01/2022 2:12 PM CANDY STARCH MOLD PRINTER): Self weaned off Cymbalta 2 days ago [...] exercise. Assessment & Plan (08/27/2020 2:41 PM CANDY STARCH MOLD PRINTER): Fatigue with sensation of pain all over [...] exercise. Assessment & Plan (07/24/2020 12:36 PM CANDY STARCH MOLD PRINTER): Fatigue with sensation of pain all over [...] PT. Assessment & Plan (08/28/2020 12:26 PM CANDY STARCH MOLD PRINTER): Multifocal OA (hands and hips) per recent xrays. Continue Tylenol 500 mg qid. Continue PT. Assessment & Plan (07/24/2020 12:41 PM CANDY STARCH MOLD PRINTER): Multifocal OA (hands and hips) per recent [...] thickening. Assessment & Plan (07/28/2024 11:22 AM CANDY STARCH MOLD PRINTER): Off MTX (oral ulcers/hair thinning). Remains on [...] increase blood glucose, glaucoma and osteopenia with alf use of steroids. She was strongly encouraged [...] needed. Assessment & Plan (09/22/2023 12:32 PM CANDY STARCH MOLD PRINTER): A 09/2022 repeat left hand/wrist US demonstrated [...] needed. Assessment & Plan (09/11/2022 12:48 PM CANDY STARCH MOLD PRINTER): Continued 15mg MTX weekly and monthly Simponi [...] Chan. Assessment & Plan (08/06/2022 9:00 PM CANDY STARCH MOLD PRINTER): Has continued 15mg MTX weekly as well [...] we have no access to them through [employer]. She already had an OV scheduled for 09/02 - will re-evaluate joints at that time and consider repeat hand US if synovitis is absent/minimal on exam but she is still noting pain -to evaluate for underlying inflammation. She may require change in biologic medication. Assessment & Plan (07/01/2022 2:09 PM CANDY STARCH MOLD PRINTER): CDAI 37, high Off Enbrel due to ISRs. Continued MTX and Simponi injections. Noted improvement after prednisone taper at last visit. Joints were feeling good until a few weeks ago when she returned from a trip to [place] an self weaned off Cymbalta. Now with [...] She is to follow up with her outside plant supervisor soon due to low BP following her [...] increase blood glucose, glaucoma and osteopenia with alf use of steroids. Continue 15mg MTX weekly [...] Chan. Assessment & Plan (08/19/2021 9:00 PM CANDY STARCH MOLD PRINTER): CDAI 25. On 15mg MTX weekly but has only taken 3 Enbrel injections so far. Just completed a medrol dose pack from her outside plant supervisor due to inflammation around her heart (pericarditis?). [...] has not resolved (of note was in [place] helping care for her adult daughter post surgery). Also with BP/palpitation symptoms and urinary incontinence. Has followed up with PCP and outside plant supervisor - started Ubrelvy for JACKSON and outside plant supervisor is to adjust her pacemaker on 05/23. [...] the ). A letter was provided for [employer] to allow Sofi to be brought as a carry on. [...] needed. Assessment & Plan (08/28/2020 12:26 PM CANDY STARCH MOLD PRINTER): Our workup showed an JANNET 1:160 but [...] needed. Assessment & Plan (07/24/2020 12:33 PM CANDY STARCH MOLD PRINTER): 54yoF referred for evaluation due to +JANNET [...] reassess. Assessment & Plan (07/06/2020 4:49 PM CANDY STARCH MOLD PRINTER): 54yoF referred for evaluation due to +JANNET [...] (12/13/2019): Added automatically from request for surgery [id number] SVT (supraventricular tachycardia) 12/13/2019 Overview (12/13/2019): Added automatically from request for surgery [id number] A-fib 11/24/2019 Overview (11/24/2019): Added automatically from request for surgery [id number] Laryngopharyngeal reflux (LPR) 08/04/2018 Assessment & Plan (10/20/2018 12:26 PM CDT): No longer taking the omeprazole and ranitidine as prescribed. Patient is no longer experiencing any coughing, sinonasal or throat symptoms. Assessment & Plan (08/04/2018 1:17 PM CANDY STARCH MOLD PRINTER): Add omeprazole 40 mg Q morning 30 [...] resume. Assessment & Plan (08/04/2018 1:11 PM CANDY STARCH MOLD PRINTER): Patient's chronic cough is most likely secondary [...] reactive airway disease contributing to her cough. FDC current use of anticoagulant therapy 1 08/28/2014 Deep vein thrombosis (DVT) 06/27/2015 Hyperthyroidism 08/31/2012 Chronic adrenal insufficiency 08/30/2012 Social History Tobacco Use Types Packs/Day Years Used Date Smoking Tobacco: Never Passive Smoke Exposure: Past Smokeless Tobacco: Never Tobacco Cessation:Counseling Given: Not Answered Alcohol Use Standard Drinks/Week Comments No 0 (1 standard drink = 0.6 oz pur e alcohol) [facility] Utilities Answer Date Recorded In the past 12 months has Game [employer], gas, oil, or water Kranem threatened to shut off services in your home? Yes 02/11/2024 Social Connection and Isolat ion Panel [NHANES] Answer Date Recorded In a typical week, how many times do you talk on the phone with family, friends, or neighbors? Once a week 02/11/2024 How often do you get togethe r with friends or relatives? Once a week 02/11/2024 How often do you attend [facility] or spiritism services? More than 4 times per year 02/11/2024 Do you belong to any clubs o r organizations such as advent groups, unions, fraternal or athletic groups, or [...] place to sleep or slept in a assisted (including now)? No 11/02/2023 Housing Stability Vital Sign Answer Thang e Recorded In the last 12 months, was t here a time when you were not able to pay the mortgage or rent on time? No 02/11/2024 In the past 12 months, how m any times have you moved where you were living? 0 02/11/2024 At any time in the past 12 m [facility], were you homeless or living in a assisted (including now)? No 02/11/2024 Personal Safety Answer Date Recorded Have you ever been in or are you currently in a harmful physical or emotional relationship or is someone making you feel afraid or unsafe? Denies 08/02/2024 Comments No Sex and Gender Information Value Date Recorded Sex Assigned at Not on file Legal Sex Female 12:21 AM CANDY STARCH MOLD PRINTER Gender Identity Not on file Sexual Orientation Not on file Last Filed Vital Signs Vital Sign Reading Time Taken Comments Blood Pressure 112/73 10/05/2024 2:54 PM CDT Pulse 70 10/05/2024 2:54 PM CDT Temperature 36 C (96.8 F) 08/02/2024 2:20 PM CANDY STARCH MOLD PRINTER Respiratory Rate 10 08/02/2024 2:40 PM CANDY STARCH MOLD PRINTER Oxygen Saturation 100% 10/05/2024 2:55 PM CDT Inhaled Oxygen Concentration - - Weight 88.6 kg (195 lb 6.4 oz) 08/23/2024 11:23 AM CANDY STARCH MOLD PRINTER Height 172.7 cm (5' 8 ) 08/23/2024 11:23 AM CANDY STARCH MOLD PRINTER Body Mass Index 29.71 08/23/2024 11:23 AM CANDY STARCH MOLD PRINTER Plan of Treatment Upcoming Encounters Date Type Department Care Team (Latest Contact Info) Description 10/21/2024 7:30 AM CDT Hospital Encounter [facility] [address] [place] [address] Hugo Ordoñez Jr., MD [address] [place] [address] 10/21/2024 7:30 AM CDT - 10/21/2024 9:00 AM CDT Surgery [facility] [address] [place] [address] Hugo Ordoñez Jr., MD [address] [place] [address] REPOSITION PERMANENT PACEMAKER LEAD Scheduled Procedures Name Priority Associated Diagnoses Date/Ti me REPOSITION PERMANENT PACEMAKER LEAD Cardiac pacemaker in situ Shortness of breath Chronic diastolic heart failure (HCC) 10/21/2024 7:30 AM CDT Goals Goal Patient Goal Type Associated Problems [...] home safety. Medical Devices Implanted Type Area Senior Interaction Designer Device Identifier Shelf Expiration Date Model / Serial / Lot Ivc Filter- 7 Implanted:Qty: 1 on 06/09/2007 by Tam Fraser MD IVC Filter N/A: Vena Cava Lead-Spinal Cord Stimulator- 018 Implanted:2017 by Taran Ramirez MD (Quantity not on file) Lead Back [employer] SC-2158- 50 / / Biotronik Ra Lead ([id number])- 019 Implanted:2018 (Quantity not on file) Lead Chest Biotronik SOLIA S 45 [id number] / [id number] / Lead (Rv)-05/23/2021 Implanted:2020 (Quantity not on file) Lead Heart Biotronik SOLIA S 53 377 177 / [id number] / Biotronik Paceomaker Ariana Kaur-12/24/2023 Implanted:2023 (Quantity not on file) Pacemaker Chest Wall Biotronik [id number] / [id number] / Spinal Cord Stimulator- 018 Implanted:Qty: 1 on 08/20/2017 by Taran Ramirez MD Spinal Cord Stimulator N/A: Back [employer] SC-1200 / [id number] / Spinal Cord Stimulator Lead-08/20/2017 Implanted:2017 by Taran Ramirez MD (Quantity not on file) Spinal Cord Stimulator Back [employer] Neuro- [id number] / / Hardware Thoracic-L umbar Spine Loop Recorder Chest Wall [employer] System Closure Repair Femoral Artery Suture Mediated Perclose Prostyle 55476-02 - [id number] Implanted:Qty: 1 on 02/09/2024 by Morgan Roy MD at [facility] 11/16/2025 [id number] / / [id number] [employer] Percutaneous Transcatheter Amplatzer Amulet 18mm [id number] - [id number] Implanted:Qty: 1 on 02/09/2024 by Morgan Roy MD at [facility] 09/17/2027 9-[id number] 07-018 / / [id number] [employer] System Closure Repair Femoral Artery Suture Mediated Perclose Prostyle 13346-00 - [id number] Implanted:Qty: 1 on 02/09/2024 by Morgan Roy MD at [facility] 11/16/2025 [id number] / / [id number] [employer] Sling Urinary Incontinence Female Stress Short Desara Blue Sis-Ds01bs - [id number] Implanted:Qty: 1 on 06/28/2024 by Shankar Mak MD at [facility] N/A: Urethra [employer] 01/04/2027 SIS-DS01 BS / / [id number] Explanted Type Area Senior Interaction Designer Device Identifier Shelf Expiration Date Model / Serial / Lot Biotronik Rv Lead ([id number])-07/04 Implanted:Qty: 1 on 07/04/2019 Explanted:Qty: 1 Lead Chest Biotronik [id number] / / Description:This lead was re placed and left behind per patient on 05/23/21 Biotronik Pacemaker ([id number])-07/04 Implanted:Qty: 1 on 07/04/2019 Explanted:Qty: 1 on 12/24/2023 Pacemaker Left: Chest Biotronik BENITO 8 KRISTY CARBAJAL / [id number] / [id number] Procedures Procedure Name Priority Date/Time Associated Diagnosis [...] Read Routine (OP Routine) 08/25/2024 7:35 AM CANDY STARCH MOLD PRINTER Transient ischemic attack (TIA) Cerebrovascular disease, unspecified Unspecified visual loss Presence of cardiac pacemaker XR CHEST PA LATERAL 2 VIEWS Schedule RY, Read RY (Appt Today, Awaiting Results) 08/23/2024 12:16 PM CANDY STARCH MOLD PRINTER Pacemaker reprogramming/c heck Complete heart block (HCC) DEVICE CHECK - IN OFFICE Routine 025 10:57 AM CANDY STARCH MOLD PRINTER Pacemaker reprogramming/c heck COLONOSCOPY 08/02/2024 1:43 PM CANDY STARCH MOLD PRINTER SURGICAL PATHOLOGY Routine 08/02/2024 1:26 PM CANDY STARCH MOLD PRINTER Dysphagia, unspecified type Dyspepsia Diarrhea, unspecified type EGD 08/02/2024 1:15 PM CANDY STARCH MOLD PRINTER ESOPHAGOGASTRODUODENOSCOPY BIOPSY 08/02/2024 1:12 PM CANDY STARCH MOLD PRINTER Dysphagia, unspecified type Dyspepsia Diarrhea, unspecified type COLON BIOPSY 08/02/2024 1:12 PM CANDY STARCH MOLD PRINTER Dysphagia, unspecified type Dyspepsia Diarrhea, unspecified type SCAN - OTHER ORDERS 07/26/2024 HEPATITIS C ANTIBODY Routine 07/06/2020 2:58 PM CANDY STARCH MOLD PRINTER Polyarthralgia Encounter for screening for other viral [...] 2 or More Views (08/25/2024 7:35 AM CANDY STARCH MOLD PRINTER) Anatomical Region Laterality Modality Spine N/A Computed Radiogr aphy 08/25/2024 7:45 AM CANDY STARCH MOLD PRINTER Impressions 08/25/2024 7:45 AM CANDY STARCH MOLD PRINTER 1. Thoracic stimulator device in place with [...] Nehemias Simons D.O. Narrative 08/25/2024 7:45 AM CANDY STARCH MOLD PRINTER EXAMINATION: XR SPINE THORACOLUMBAR JUNCTION 2 OR [...] Pa Lateral 2 Views (08/23/2024 12:16 PM CANDY STARCH MOLD PRINTER) Anatomical Region Laterality Modality Body, Chest N/A Computed Radiogr aphy 08/23/2024 2:08 PM CANDY STARCH MOLD PRINTER Impressions 08/23/2024 4:13 PM CANDY STARCH MOLD PRINTER FINDINGS/IMPRESSION: Left subclavian approach pacemaker with leads [...] Arpit Mcclelland M.D. Narrative 08/23/2024 4:13 PM CANDY STARCH MOLD PRINTER EXAMINATION: XR CHEST PA LATERAL 2 VIEWS HISTORY: Pacemaker, no status change MRI protocol COMPARISON: X-ray from 02/10/2024 Procedure Note Arpit Mccellland MD - 08/23/2024 EXAMINATION: XR CHEST PA [...] CHECK - IN OFFICE (08/23/2024 10:57 AM CANDY STARCH MOLD PRINTER) Anatomical Region Laterality Modality Other 08/23/2024 2:00 AM CANDY STARCH MOLD PRINTER Narrative 08/27/2024 9:33 PM CANDY STARCH MOLD PRINTER Interpretation Summary: Battery and Leads (BL) Normal parameters noted on battery and lead(s) --- Estimate 10 years to TEREZA Procedure Note Leonardo Grimm MD - 08/27/2024 Interpretation Summary: Battery and Leads (BL) Normal parameters noted on battery and lead(s) --- Estimate 10 years toERI us Elise Ibarra NP [facility] CARDIAC SERVICES PROCE DURES Final Result * Colonoscopy (08/02/2024 1:43 PM CANDY STARCH MOLD PRINTER) Anatomical Region Laterality Modality Other Narrative Procedure Note Trey Arroyo MD - 08/02/2024 1:43 PM CST [facility] ENDOSCOPY [facility] Patient Name: Naye Cantu Procedure Date: 08/02/2024 1:43 PM Date of : 1965 Admit Type: Outpatient Age: 58 Gender: Female Attending MD: Trey Arroyo M.D. Room: [facility] ENDOSCOPY ROOM 8 Note Status: [...] The scope was passed under direct vision.The [id number] endoscope was introduced through the anus and advanced to the terminal ileum. The colonoscopy was performed without difficulty. The patient tolerated the procedure well. The qualityof the bowel preparation was evaluated using the BBPS ([place]ley Bowel Preparation Scale) with scores of:Right Colon [...] business hours - [facility]: [phone] After hours, evening, nights, weekends and holidays- Please call the hospital pocket and pulley machine operator at and ask for the GI fellow typewriters functional tester. Attending Participation: I was present and participated during the entire procedure, including non-patrick portions. Electronically signed by Trey Arroyo MD Trey Arroyo M.D. 08/02/2024 2:08:56 PM . Number of Addenda: 0 Note Initiated On: 08/02/2024 1:43 PM Trey Arroyo MD ENDOSCOPY PROCEDURES Final Result * Surgical pathology (08/02/2024 1:26 PM CANDY STARCH MOLD PRINTER) Tissue specimen (specimen) (Duodenum, Biopsy) 08/02/2024 1:26 PM CANDY STARCH MOLD PRINTER Tissue specimen (specimen) (Gastric/Stomach biopsy) 08/02/2024 1:29 PM CANDY STARCH MOLD PRINTER Tissue specimen (specimen) (Esophageal biopsy) 08/02/2024 1:38 PM CANDY STARCH MOLD PRINTER Tissue specimen (specimen) (Colon, Biopsy) 08/02/2024 2:02 PM CANDY STARCH MOLD PRINTER Narrative PATHOLOGY [facility] - 08/05/2024 10:16 AM CANDY STARCH MOLD PRINTER EPIC results best viewed via link to PDF [facility] of Surgical [place] [address] Note to Patients: This report may contain [...] Gender: F : 1965 (Age: 58) Address: [address] [place], [place] [address] Hospital #: [id number] Taken:08/02/2024 Received:08/02/2024 Reported: 08/05/2024 Patient Type: [facility] Service: Gastroenterology Location: Physician(s): Pb Steward M.D. [...] Surgical Pathology and Flow Cytometry Departments at [facility] as part of an ongoing air quality [...] Surgical Pathology and Flow Cytometry Departments of [facility]. It has not been cleared or approved by the U. S. Food and Drug Administration. IMAGES AND SCANNED DOCUMENTS, IF INCLUDED, ONLY VIEWABLE IN PDF VERSION OF REPORT Trey Arroyo MD LAB PATHOLOGY ORDERAB LES Final Result PATHOLOGY [facility] 3rd Floor [place], [place] [phone] * EGD (08/02/2024 1:15 PM CANDY STARCH MOLD PRINTER) Anatomical Region Laterality Modality Other Narrative Procedure Note Trey Arroyo MD - 08/02/2024 1:15 PM CST [facility] ENDOSCOPY [facility] Patient Name: Naye Cantu Procedure Date: 08/02/2024 1:15 PM Date of : 1965 Admit Type: Outpatient Age: 58 Gender: Female Attending MD: Trey Arroyo M.D. Room: [facility] ENDOSCOPY ROOM 8 Note Status: [...] passed under direct vision. The GIF [id number] endoscope was introducedthrough the mouth, and advanced [...] business hours - Please call theNurse Coordinator: [phone] After hours, evening, nights, weekends and holidays- Please call the hospital pocket and pulley machine operator at and ask for the GI fellow typewriters functional tester. Attending Participation: I personally performed the entire [...] * Hepatitis C antibody (07/06/2020 2:58 PM CANDY STARCH MOLD PRINTER) Hep C Ab NON-REACTI VE NON-REACT GIA [facility] SIGNAL TO CUT-OFF 0.02 <1.00 [facility] Comment: HCV antibody was non-reactive. There is no laboratory evidence of HCV infection. In most cases, no further action is required. However, if recent HCV exposure is suspected, a test for HCV RNA (test code 78925) is suggested. For additional information please refer to http://education.[employer]/faq/VZU95j7 (This link is being provided for informational/ educational purposes only.) Blood specimen (specimen) 07/06/2020 2:58 PM CANDY STARCH MOLD PRINTER 07/06/2020 3:00 PM CANDY STARCH MOLD PRINTER Narrative [facility] - 07/11/2020 9:33 PM CANDY STARCH MOLD PRINTER PATIENT UNABLE TO VOID; ADVISED TO RETURN FOR COLLECTION. Olga MONTES LAB MICROBIOLOGY - GENERA L ORDERABLES Final Result [facility] [address] [place] [address] from Last 3 Months or Most Recently Relevant to Health Maintenance Insurance MEDICARE [facility] [address] [place] [id number] MEDICARE [employer] [address] [place] [id number] MEDICARE [facility] [address] [place] [address] [address] [place] [address] MEDICARE [employer] Advance Directives For more information, please contact: [phone] * Full Code (Latest Code Status on [...] 6:47 AM 04/25/2020 10:09 PM Care Teams Sales Relationship Manager Relationship Specialty Start Date End Date Tom Paz MD PCP - General 09/09/16 Tab Taylor MD [address] [place] [address] Consulting Physician Cardiology 01/03/20 Favian Caceres MD [address] [place] [address] Consulting Physician Rheumatology 08/28/23
--- OUTSIDE RECORDS SUMMARY | 2024-10-19 08:40 | XMS_ITS | Encounter Summary ---
Author Organization [facility] Address [address] [place] [address] Care Team Providers Care Health Information Management Director Name Role Phone Tom Paz MD Primary Care Provider [phone] Encounter Details Date Type Department Care Team (Late st Contact Info) Description 10/18/2024 External Device Data STL ABSTRACTION Provider, Abstract [...] on filedocumented in this encounter Care Teams Health Information Management Director Relationship Specialty Start Date End Date Tom Paz MD [address] [place] [id number] PCP - General Family Practice 01/28/22 documented as of this encounter
--- OUTSIDE RECORDS SUMMARY | 2024-10-19 08:40 | XMS_ITS | Clinical Summary ---
Author Organization [facility] Address [address] [place] [address] Care Team Providers Care Manager Social Name Role Phone Tom Paz MD Primary Care Provider [phone] Allergies Active Allergy Reactions Criticality Noted Date [...] blisters Etanercept Swelling Low 12/09/2023 Embrel Gum Vlczpk-Rljgej-Ykpd-Alcoho l Rash Low 12/09/2023 Mastisol - blisters [...] Date Type Department Care Team Description 10/18/2024 External Device Data STL ABSTRACTION Provider, Abstract 10/05/2024 External Device Data STL ABSTRACTION Provider, [...] Screening 07/25/2025 CERVICAL CANCER SCREENING 10/08/2026 HPV/Cotest (30-65) 10/08/2026 10/08/2021, 0 08/16/2019, 03/12/2015 RSV VACCINE (60+ or ) (1 - 1-dose 75+ series) 2039 HEPATITIS B VACCINES Aged Out No long er eligible based on patient's age to complete this topic Medical Devices Implanted Type Area Armored Truck Driver Device Identifier Shelf Expiration Date Model / Serial / Lot Tyrx Antibacterial Envelope Med [id number] - [id number] Implanted:Qty: 1 on 12/24/2023 at [facility] Mesh Left: Chest MEDTRONIC- CARD RHYTHM MGMT 10/01/2024 [id number] / / [id number] Neuro Stimulator Neuro Stimulator [employer] SC-1200 / / Description:leads: SC- Need lead numbers Dc Ppm Gen Implanted:Qty: 1 on 12/24/2023 by Burton Forbes MD at [facility] N/A: Chest Wall [id number] / [id number] / Explanted Type Area Armored Truck Driver Device Identifier Shelf Expiration Date Model / Serial / Lot Dc Eluna 8 Ppm Gen Explanted:Qty: 1 on 12/24/2023 by Burton Forbes MD at [facility] Pacemaker Chest Wall [employer] ELUNA 8 KRISTY / [id number] / Description:Implant date: Per [employer] Rep - NOT MRI safe (extra cap lead -ABANDONED LEAD - NO MRI -lizandro 08/14/23 Insurance MEDICARE PART A AND B [facility] [place] [id number] [place] [address] MEDICARE PART A AND B RX [employer] RX Member Subscriber Plan / Payer (Ef fective 2023-Present) Name:Naye Hart Relation to Subscriber:Self Name:Naye Hart Subscriber ID:Not on file Payer ID:Not on file Group ID:[id number] Type:RX Commercial Address: BREN[address] Advance Directives For more information, please contact: [phone] Documents on File Type Date Recorded Patient Assistance Specialist Expl anation Advance Directive POA 12/24/2023 8:33 AM Ad valenzuela Directive POA * Full Code (Latest Code Status on File) Date Activated Date Inactivated Comments 12/24/2023 3:32 PM 12/25/2023 12:17 PM Care Teams Manager Social Relationship Specialty Start Date End Date Tom Paz MD [address] [place] [address] PCP - General Family Practice 01/28/22
--- OUTSIDE RECORDS SUMMARY | 2024-10-19 08:40 | XMS_ITS | Continuity of Care Document ---
Author Organization [facility] Address [address] [place] [address] Phone Care Team Providers Care Health Navigator Name Role Phone Nayely OD OD, Denise [...] OFFICE/OUTPA TIENT VISIT, EST [facility], [address], [place], [place], [id number], [place] tel:[phone] O[facility] flash of light OS (chief complaint) Age-related nuclear cataract, bilateralTear film insufficiency of bilateral lacrimal glandsOther vitreous opacities, bilateral Aug-0 5 Derheimer OD Denise. [address], [address], [place], [place], [id number], [place]. tel:[phone] Referring Provider: Tom Sapp, [address], [place], [address]. tel:[phone] OFFICE/OUTPA TIENT VISIT, EST [facility], [address] [place] [address], [id number], [place] tel:[phone] [facility]ULT [facility] Pain OS (chief complaint) Left eye painAge-relat ed nuclear cataract, bilateralOthe r vitreous opacities, bilateralTear film insufficiency of bilateral lacrimal glands Apr-0 4-202 4 Krishnasamy Anthony. [address], [place], [place], [id number], [place]. tel:[phone] Referring Provider: Tom Sapp, [address], [place], [address]. tel:[phone] OFFICE/OUTPA TIENT VISIT, EST [facility], [address] [place] [address], [id number], [place] tel:[phone] [facility] blurry vision (chief complaint) Age-related nuclear cataract, bilateralTear film insufficiency of bilateral lacrimal glandsOther vitreous opacities, bilateralDipl opiaHypermetr opia, bilateral Oct-2 4-202 3 Krishnasamy Anthony. [address], [address], [place], [place], [id number], [place]. tel:[phone] Referring Provider: Tom Sapp, [address], [place], [address]. tel:[phone] OFFICE/OUTPA TIENT VISIT, EST [facility], [address] [place] [address], [id number], [place] tel:[phone] [facility] blurry VA (chief complaint) Tear film insufficiency of bilateral lacrimal glandsOther vitreous opacities, bilateralAge- related nuclear cataract, bilateralDipl opiaHypermetr opia, bilateral Mar-1 0-202 2 Krishnasamy Anthony. [address], [place], [place], [id number], [place]. tel:[phone] Referring Provider: Tom Sapp, [address], [place], [address]. tel:[phone] OFFICE/OUTPA TIENT VISIT, EST [facility], [address] [place] [address], [id number], [place] tel:[phone] [facility] shingles (chief complaint) Herpes zoster without complicationT ear film insufficiency of bilateral lacrimal glands Apr- 1 Krishnasamy Anthony. [address], [place], [place], [id number], [place]. tel:[phone] Referring Provider: Tom Sapp, [address], [place], [address]. tel:[phone] OFFICE/OUTPA TIENT VISIT, EST [facility], [address] [place] [address], [id number], [place] tel:[phone] [facility] blurry (chief complaint) DiplopiaAge-r elated nuclear cataract, bilateralTear film insufficiency of bilateral lacrimal glandsOther vitreous opacities, bilateralHype rmetropia, bilateral Nov- 9 Krishnasamy Anthony. [address], [place], [place], [id number], [place]. tel:[phone] Referring Provider: Anthony Gutierrez, [address], [place], [address]. tel:[phone] OFFICE/OUTPA TIENT VISIT, EST [facility], [address] [place] [address], [id number], [place] tel:[phone] [facility] blurry vision (chief complaint) Tear film insufficiency of bilateral lacrimal glandsOther vitreous opacities, bilateralDipl opiaHypermetr opia of both eyes Oct-3 0- 8 Krishnasamy Anthony. [address], [address], [place], [place], [id number], [place]. tel:[phone] Referring Provider: Anthony Gutierrez, [address], [place], [address]. tel:[phone] OFFICE/OUTPA TIENT VISIT, EST [facility], [address] [place] [address], [id number], [place] tel:[phone] [facility] blurry vision (chief complaint) dry eyes (chief complaint) DiplopiaOther vitreous opacities, bilateralTear film insufficiency of bilateral lacrimal glandsHyperme tropia of both eyes Dec-2 7 7 Krishnasamy Anthony. [address], [place], [place], [id number], [place]. tel:[phone] Referring Provider: Anthony Gutierrez, [address], [place], [address]. tel:[phone] OFFICE/OUTPA TIENT VISIT, EST [facility], [address] [place] [address], [id number], tel:[phone] OPH CONSULT [facility] blurry vision (chief complaint) Reflex sympathetic dystrophy, unspecifiedTe ar film insufficiency , unspecifiedHy permetropia of both eyesOther vitreous opacities, bilateralDipl opia Oct-0 5-201 6 Krishnasamy Anthony. [address], [address], [place], [id number], [place]. tel:[phone] Referring Provider: Anthony Gutierrez, [address], [place], [address]. tel:[phone] OFFICE/OUTPA TIENT VISIT, NEW [facility], [address] [place] [address], [id number], [place] tel:[phone] Oph Consult [facility] blurry vision (chief complaint) Hypermetropia Tear film insufficiency , unspecifiedOt her vitreous opacitiesDipl opiaReflex sympathetic dystrophy, unspecified Sep-2 8-201 5 Krishnasamy Anthony. [address], [address], [place], [id number], [place]. tel:[phone] Referring Provider: Anthony Gutierrez, [address], [place], [address]. tel:[phone] OFFICE/OUTPA TIENT VISIT, EST [facility], [address] [place] [address], [place], [place], [id number], [place] tel:[phone] [facility] Office Tear film insufficiency , unspecifiedRe flex sympathetic dystrophy, unspecifiedOt her vitreous opacitiesHype rmetropiaDipl opia Feb- 4 Krishmargaret Anthony. [address], [place], [place], [id number], [place]. tel:[phone] Referring Provider: Anthony Gutierrez, [address], [place], [address]. tel:[phone] OFFICE/OUTPA TIENT VISIT, EST [facility], [address] [place] [address], [place], [place], [id number], tel:[phone] [facility] Office Other vitreous opacitiesTear film insufficiency , unspecifiedDi plopiaHyperme tropia Mar- 3 Krishnasnina Anthony. [address], [address], [place], [place], [id number], [place]. tel:[phone] Referring Provider: Anthony Gutierrez, [address], [place], [address]. tel:[phone] OFFICE/OUTPA TIENT VISIT, EST [facility], [address] [place] [address], [id number], [place] tel:[phone] [facility] Tear film insufficiency , unspecifiedRe flex sympathetic dystrophy, unspecifiedDi plopiaHyperme tropia Sep- 3 Krishnasnina Anthony. [address], [place], [place], [id number], [place]. tel:[phone] Referring Provider: Anthony Gutierrez [address], [place], [address]. tel:[phone] OFFICE/OUTPA TIENT VISIT, EST [facility], [address], [id number], tel:[phone] OPH CON[facility]ULT [facility] Tear film insufficiency , unspecifiedDi plopia 2 Brenda Cruz. [address], [address], [place], [id number], . tel:[phone] Referring Provider: Anthony Gutierrez, [address], [place], [address]. tel:[phone] OFFICE/OUTPA TIENT VISIT, NEW [facility], [address] [place] [address], [place], [place], [id number], tel:[phone] O[facility] DiplopiaHeada cheHypermetro tierra 1 Brenda Cruz. [address], [place], [place], [address], . tel:[phone] Family History Family Member Type Diagnosis Age At Onset Son Problem (finding) Lazy eye Payers Payer name Insurance type Covered democrat ID Authorjosea tirin(s) [place]IC[place] MB [id number] [place] [id number] Social History Type Description Quantity Date Captured [...] Pt saw Dr Nai Sotelo at [facility] for prism. Pt did not update Rx, [...] 080. Patient will see Smita Rod Richardson (commercial tire service technician) @ [facility] for prisms/glasses. Related to Headaches Hyperopia, OU [...] +1.75+0.75x 082. Patient will see Smita Richardson (commercial tire service technician) @ [facility] 12/24/2010 for motility exam and measurements for [...]
== END 2024-10-19 08:16 | disposition home or self-care (01) ==
LOC: ANHIMG 08:24
PROVIDERS: PCP Family Medicine; Visit Provider Internal Medicine Cardiovascular Disease
DX: R06.02 Shortness of breath (principal); T82.110A Breakdown (mechanical) of cardiac electrode, initial encounter
CPT/HCPCS: 71046

== ENCOUNTER 2024-12-01 09:46 | Outpatient (CLI) | payer MEDICARE, MEDICAID, SELFPAY ==
--- NOTE | ~2024-12-01 | XR_ITS ---
Left Shoulder Technique: AP and axillary views were obtained. Clinical History: Pain Findings: No fracture or dislocation is seen. Osseous alignment is anatomic. The glenohumeral and acr omioclavicular joint spaces are preserved. Soft tissues are unremarkable. Impression: Unremarkable left shoulder radiographs. Reviewed, dictated and finalized at [facility]. Impression: Unremarkable left shoulder radiographs.
--- OUTSIDE RECORDS SUMMARY | 2024-12-01 09:51 | XMS_ITS | Encounter Summary ---
Author Organization [facility] Address [address] [place] [address] Phone Care Team Providers Care Owner Operator Tanker Truck Driver Name Role Phone Tom Paz MD Primary Care Provider [phone] Tab Taylor MD Unavailable [phone] Favian Caceres MD Unavailable [phone] Encounter Details Date Type Department Care Team (Late st Contact Info) Description 11/25/2024 Results Follow-Up [facility] Gastroenterology [address] [place] [address] Medical Office [address], [address] [place] [address] Trey Arroyo MD [address] [place] [address] Social History Tobacco Use Types Packs/Day Years Used Date Smoking Tobacco: Never Passive Smoke Exposure: Past Smokeless Tobacco: Never Alcohol Use Standard Drinks/Week Comments No 0 (1 standard drink = 0.6 oz pur e alcohol) [facility] Utilities Answer Date Recorded In the past 12 months has e electric, gas, oil, or water company [...] often do you attend chur ch or restoration services? More than 4 times per year [...] you have a drink containing alcohol? Never 11/23/2024 Q2: How many drinks containi ng alcohol do you have on a typical day when you are drinking? Patient does not drink Q3: How often do you have si x or more drinks on one occasion? Never 11/23/2024 Overall Financial Resource Strain (CARDIA) Answe r [...] any time in the past 12 m [facility], were you homeless or living in a halfway (including now)? No 02/11/2024 Personal Safety Answer Date Recorded Have you ever been in or are you currently in a harmful physical or emotional relationship or is someone making you feel afraid or unsafe? 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
--- OUTSIDE RECORDS SUMMARY | 2024-12-01 09:51 | XMS_ITS | Encounter Summary ---
Author Organization [facility] Address [address] [place] [address] Care Team Providers Care Professor Of Rhetoric Name Role Phone Tom Paz MD Primary Care Provider [phone] Tab Taylor MD Unavailable Favian Caceres MD Unavailable [phone] Reason for Visit * Reason Onset Date Comments Scheduling Appointments 04/15/2024 Schedule patient for Imaging Genicular RFA Right (49628) and 1m follow Encounter Details Date Type Department Care Team (Late st Contact Info) Description 04/15/2024 Telephone [facility] [address] [address], [address] [place] [address] Dougie Lord MD [address] [address] Scheduling Appointments (Schedule patient for Imaging Genicular RFA Right (02619) and 1m follow ) Social History Tobacco Use Types Packs/Day Years Used Date Smoking Tobacco: Never Passive Smoke Exposure: Past Smokeless Tobacco: Never Alcohol Use Standard Drinks/Week Comments No 0 (1 standard drink = 0.6 oz pur e alcohol) [facility] Utilities Answer Date Recorded In the past 12 months has [employer], gas, oil, or water [employer] threatened to shut off services in your [...] often do you attend chur ch or nondenominational services? More than 4 times per year [...] place to sleep or slept in a prison (including now)? No 11/02/2023 Housing Stability Vital Sign Answer Thang e Recorded In the last 12 months, was t here a time when you were not able to pay the mortgage or rent on time? No 02/11/2024 In the past 12 months, how m any times have you moved where you were living? 0 02/11/2024 At any time in the past 12 m [facility], were you homeless or living in a prison (including now)? No 02/11/2024 Personal Safety Answer Date Recorded Have you ever been in or are you currently in a harmful physical or emotional relationship or is someone making you feel afraid or unsafe? Denies 02/09/2024 Comments No Sex and Gender Information Value Date Recorded Sex Assigned at Not on file Legal Sex Female 12:21 AM DIRECTOR OF SCIENTIFIC RESEARCH Gender Identity Not on file Sexual Orientation [...] on filedocumented in this encounter Care Teams Professor Of Rhetoric Relationship Specialty Start Date End Date Tom Paz MD PCP - General 09/09/16 Tab Taylor MD [address] [place] [address] Consulting Physician Cardiology 01/03/20 Favian Caceres MD [address] [place] [address] Consulting Physician Rheumatology 08/28/23 documented as of this encounter
--- OUTSIDE RECORDS SUMMARY | 2024-12-01 09:51 | XMS_ITS | Encounter Summary ---
Author Organization [facility] Address [address] [place] [address] Phone Care Team Providers Care Product Manager Medical Device Name Role Phone Tom Paz MD Primary Care Provider [phone] Tab Talyor MD Unavailable [phone] Favian Caceres MD Unavailable [phone] Encounter Details Date Type Department Care Team (Late st Contact Info) Description 11/10/2024 Results Follow-Up [facility] [address] [place] [address] Claudia Cristobal PA [address] [place] [address] Social History Tobacco Use Types Packs/Day Years Used Date Smoking Tobacco: Never Passive Smoke Exposure: Past Smokeless Tobacco: Never Alcohol Use Standard Drinks/Week Comments No 0 (1 standard drink = 0.6 oz pur e alcohol) [facility] Utilities Answer Date Recorded In the past 12 months has [employer], gas, oil, or water [employer] threatened to shut off services in your [...] often do you attend chur ch or evangelical services? More than 4 times per year 02/11/2024 Do you belong to any clubs o r organizations such as episcopal groups, unions, fraternal or athletic groups, or school groups? No 02/11/2024 How often do you attend meet ings of the clubs or organizations you belong to? Never 02/11/2024 Are you , , di vorced, , never , or living with a partner? 02/11/2024 AUDIT-C Answer Date Recorded Q1: How often do you have a drink containing alcohol? Never 11/09/2024 Q2: How many drinks containi ng alcohol do you have on a typical day when you are drinking? Patient does not drink Q3: How often do you have si x or more drinks on one occasion? Never 11/09/2024 Overall Financial Resource Strain (CARDIA) Answe r [...] place to sleep or slept in a intermediate (including now)? No 11/02/2023 Housing Stability Vital Sign Answer Thang e Recorded In the last 12 months, was t here a time when you were not able to pay the mortgage or rent on time? No 02/11/2024 In the past 12 months, how m any times have you moved where you were living? 0 02/11/2024 At any time in the past 12 m [facility], were you homeless or living in a intermediate (including now)? No 02/11/2024 Personal Safety Answer Date Recorded Have you ever been in or are you currently in a harmful physical or emotional relationship or is someone making you feel afraid or unsafe? Denies 10/21/2024 Comments No Sex and Gender Information Value Date Recorded Sex Assigned at Not on file Legal Sex Female 12:21 AM SPANISH MEDICAL INTERPRETER Gender Identity Not on file Sexual Orientation [...] on filedocumented in this encounter Care Teams Product Manager Medical Device Relationship Specialty Start Date End Date Tom Paz MD PCP - General 09/09/16 Tab Taylor MD [address] [place] [address] Consulting Physician Cardiology 01/03/20 Favian Caceres MD [address] [place] [address] Consulting Physician Rheumatology 08/28/23 documented as of this encounter
--- OUTSIDE RECORDS SUMMARY | 2024-12-01 09:51 | XMS_ITS | Encounter Summary ---
Author Organization [facility] Healthcare Address [address] [place] [address] Care Team Providers Care Life Skills Instructor Name Role Phone Tom Paz MD Primary Care Provider [phone] Tab Taylor MD Unavailable [phone] Favian Caceres MD Unavailable [phone] Encounter Details Date Type Department Care Team (Late st Contact Info) Description 02/11/2024 Documentation [facility] Case Management [address] [place] [address] Gaviota Benz, RN Social History Tobacco Use Types Packs/Day Years Used Date Smoking Tobacco: Never Passive Smoke Exposure: Past Smokeless Tobacco: Never Alcohol Use Standard Drinks/Week Comments No 0 (1 standard drink = 0.6 oz pur e alcohol) [facility] Utilities Answer Date Recorded In the past 12 months has [employer], gas, oil, or water [employer] threatened to shut off services in your home? Yes 02/11/2024 Social Connection and Isolat ion Panel [NHANES] Answer Date Recorded In a typical week, how many times do you talk on the phone with family, friends, or neighbors? Once a week 02/11/2024 How often do you get togethe r with friends or relatives? Once a week 02/11/2024 How often [facility] you attend [facility]? More than 4 times per year 02/11/2024 Do you belong to any clubs o r organizations such as latter-day groups, unions, fraternal or athletic groups, or [...] time in the past 12 m [facility], were you homeless or living in [...] on file Legal Sex Female 12:21 AM RN ORTHOPAEDIC Gender Identity Not on file Sexual Orientation Not on file documented as of this encounter Functional Status * Audit-C Score Answer Date of Assessment Author 0 02/11/2024 4:35 PM CDT Lamonte Benz RN * Question Answer Date of Assessment Author Q1: How often do you have a drink containing alcohol? Never 02/11/2024 4:35 PM CDT Gaviota Benz, Marni N Q2: How many drinks containing alcohol do you have on a typical day when you are drinking? Patient does not drink 02/11/2024 4:35 PM CDT Gaviota Benz RN Q3: How often do you have six or more drinks on one occasion? Never 02/11/2024 4:35 PM CDT Gaviota Benz, R N documented as of this encounter [...] Medicare and IDPA Prescription Coverage: Yes Pharmacy: [facility]/pharmacy #[id number] [place], [place] - [address] [facility] [facility] [address] [facility] [address] [id number] [place], [place] [address] [facility] [place] [address] [facility] - [place], [place] - [address] [facility] [address] [facility] [address] [place], [place] - [address] [facility] [address] [facility] [address] Primary Care Provider: Tom Paz MD Prior to Admission: Functional Status: Minimal assist with ADLs Primary Caregiver: Private caregiver Support System: Children, Friends/neighbors (Son: Porter Serrano [phone]/Friend: Federico [phone]) Home Care Services: Yes Type of Home Care Services: cut and cover line worker (cut and cover line worker 5 days per week, 5-6.25 hour [...] homeless or living in a prison (including now)?: No (02/11/24 1634) Utilities: Yes (SW Consult), (02/11/241634) Social Connections: In a typical week, how many times do you talk on the phone with family, friends, or neighbors?: Once a week How often do you get together with friends or relatives?: Once a week How often do you attend latter-day or uatsdin services?: More than 4 times per year Do you belong to any clubs or organizations such as latter-day groups, unions, fraternal or athletic groups, or [...] reports needing assistance with ADLs. Has a extension worker and has a quad cane and [...] Collaboration with Patient, Provider, Direct Care Nurse, Medical Recruiter, and other members of theHealth Care Team to assure needed interventions completed. 2. Return patient to optimal level of self-care post discharge. 3. Colliery Clerk will follow for Discharge Planning - interventions as needed 4. Anticipated level of care at discharge 5. Planned Discharge Disposition SONALI Brothers, RN solar panel technician [phone] documented in this encounter Plan of Treatment [...] on filedocumented in this encounter Care Teams Life Skills Instructor Relationship Specialty Start Date End Date Tom Paz MD PCP - General 09/09/16 Tab Taylor MD [address] [place] [address] Consulting Physician Cardiology 01/03/20 Favian Caceres MD [address] [place] [address] Consulting Physician Rheumatology 08/28/23 documented as of this encounter
--- OUTSIDE RECORDS SUMMARY | 2024-12-01 09:51 | XMS_ITS | Clinical Summary ---
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 due to low BP following [...] Chan. 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 On 15mg MTX weekly but has only taken 3 Enbrel injections so far. Just completed a medrol dose pack from her air control/anti air warfare officer due to inflammation around her heart [...] incontinence. Has followed up with PCP and air control/anti air warfare officer - started Ubrelvy for JACKSON and air control/anti air warfare officer is to adjust her pacemaker on [...] pen with her during her trip to [place] (leaves and returns around the ). A letter was provided for [facility] to allow Humira to be brought as a carry on. She may call Balajisaint paul to schedule injection with a nurse ambassador [...]
--- OUTSIDE RECORDS SUMMARY | 2024-12-01 09:52 | XMS_ITS | Clinical Summary ---
Author Organization [facility] Address [address] [place] [address] Care Team Providers Care Caramel Maker Name Role Phone Tom Paz MD Primary Care Provider [phone] Allergies Active Allergy Reactions Criticality Noted Date [...] blisters Etanercept Swelling Low 12/09/2023 Embrel Gum Hbsfjq-Surull-Lrnm-Alcoho l Rash Low 12/09/2023 Mastisol - blisters [...] Screening 07/25/2025 CERVICAL CANCER SCREENING 10/08/2026 HPV/Cotest (21-29) 10/08/2026 10/08/2021, 0 08/16/2019, 03/12/2015 HPV/Cotest (30-65) 10/08/2026 10/08/2021, 0 08/16/2019, 03/12/2015 RSV VACCINE (60+ or ) (1 - 1-dose 75+ series) 2039 HEPATITIS B VACCINES Aged Out No long er eligible based on patient's age to complete this topic Medical Devices Implanted Type Area Skid Man Device Identifier Shelf Expiration Date Model / Serial / Lot Tyrx Antibacterial Envelope Med [id number] - [id number] Implanted:Qty: 1 on 12/24/2023 at [facility] Mesh Left: Chest MEDTRONIC- CARD RHYTHM MGMT 10/01/2024 [id number] / / [id number] Neuro Stimulator Neuro Stimulator [employer] SC-1200 / / Description:leads: SC- Need lead numbers Dc Ppm Gen Implanted:Qty: 1 on 12/24/2023 by Burton Forbes MD at [facility] N/A: Chest Wall [id number] / [id number] / Explanted Type Area Skid Man Device Identifier Shelf Expiration Date Model / Serial / Lot Dc Eluna 8 Ppm Gen Explanted:Qty: 1 on 12/24/2023 by Burton Forbes MD at [facility] Pacemaker Chest Wall [employer] ELUNA 8 KRISTY / [id number] / Description:Implant date: Per [employer] Rep - NOT MRI safe (extra cap lead -ABANDONED LEAD - NO MRI -lizandro 08/14/[address] [place] [id number] MEDICARE PART A AND B [facility] [address] [place] [address] MEDICARE PART A AND B UN[address] [place] [address] RX OPTUM RX Member Subscriber Plan / Payer (Ef fective 2023-Present) Name:Naye Hart Relation to Subscriber:Self Name:Naye Hart Subscriber ID:Not on file Payer ID:Not on file Group ID:[id number] Type:RX Commercial Address: [address] Advance Directives For more information, please contact: [phone] Documents on File Type Date Recorded Patient Supervisor Process Testing Expl anation Advance Directive POA 12/24/2023 8:33 AM Ad valenzuela Directive POA * Full Code (Latest Code Status on File) Date Activated Date Inactivated Comments 12/24/2023 3:32 PM 12/25/2023 12:17 PM Care Teams Caramel Maker Relationship Specialty Start Date End Date Tom Paz MD [address] [place] [address] PCP - General Family Practice 01/28/22
--- OUTSIDE RECORDS SUMMARY | 2024-12-01 09:52 | XMS_ITS | Continuity of Care Document ---
Author Organization [facility] Address [address] [facility] [address] [place] [address] Phone Care Team Providers Care Triage Registered Nurse Name Role Phone Nayely OD OD, Denise [...] EST REFRACTION Medicare OFFICE/OUTPATIENT VISIT, EST REFRACTION [facility] OFFICE/OUTPATIENT VISIT, EST OFFICE/OUTPATIENT VISIT, EST REFRACTION [facility] OFFICE/OUTPATIENT VISIT, EST REFRACTION MEDICARE OFFICE/OUTPATIENT [...] OFFICE/OUTPA TIENT VISIT, EST [facility], [address], [place], [place], [id number], [place] tel:[phone] [facility] flash of light OS (chief complaint) Age-related nuclear cataract, bilateralTear film insufficiency of bilateral lacrimal glandsOther vitreous opacities, bilateral Aug-0 5 Derheimer OD Denise. [address] [facility], [address], [place], [place], [address], [place]. tel:[phone] Referring Provider: Tom Sapp, [address], [place], [address]. tel:[phone] OFFICE/OUTPA TIENT VISIT, EST [facility], [address] [place] [address], [id number], [place] tel:[phone] [facility] Pain OS (chief complaint) Left eye painAge-relat ed nuclear cataract, bilateralOthe r vitreous opacities, bilateralTear film insufficiency of bilateral lacrimal glands Apr-0 4-202 4 Krishnasamy Anthony. [address], [place], [place], [address], [place]. tel:[phone] Referring Provider: Tom Sapp, [address], [place], [address]. tel:[phone] OFFICE/OUTPA TIENT VISIT, EST [facility], [address] [place] [address], [id number], [place] tel:[phone] [facility] blurry vision (chief complaint) Age-related nuclear cataract, bilateralTear film insufficiency of bilateral lacrimal glandsOther vitreous opacities, bilateralDipl opiaHypermetr opia, bilateral Oct-2 4-202 3 Krishnasamy Anthony. [address], [place], [place], [id number], [place]. tel:[phone] Referring Provider: Tom Sapp, [address], [place], [address]. tel:[phone] OFFICE/OUTPA TIENT VISIT, EST [facility], [address] [place] [address], [id number], [place] tel:[phone] [facility] blurry [place] (chief complaint) Tear film insufficiency of bilateral lacrimal glandsOther vitreous opacities, bilateralAge- related nuclear cataract, bilateralDipl opiaHypermetr opia, bilateral Mar-1 0-202 2 Krishnasamy Anthony. [address], [address], [place], [place], [id number], [place]. tel:[phone] Referring Provider: Tom Sapp, [address], [place], [address]. tel:[phone] OFFICE/OUTPA TIENT VISIT, EST [facility], [address] [place] [address], [id number], [place] tel:[phone] [facility] shingles (chief complaint) Herpes zoster without complicationT ear film insufficiency of bilateral lacrimal glands Apr- 1 Krishnasamy Anthony. [address], [place], [place], [id number], [place]. tel:[phone] Referring Provider: Tom Sapp, [address], [place], [address]. tel:[phone] OFFICE/OUTPA TIENT VISIT, EST [facility], [address] [place] [address], [id number], [place] tel:[phone] [facility] blurry (chief complaint) DiplopiaAge-r elated nuclear cataract, bilateralTear film insufficiency of bilateral lacrimal glandsOther vitreous opacities, bilateralHype rmetropia, bilateral Nov- 9 Krishnasamy Anthony. [address], [address], [place], [place], [id number], [place]. tel:[phone] Referring Provider: Anthony Gutierrez, [address], [place], [address]. tel:[phone] OFFICE/OUTPA TIENT VISIT, EST [facility], [address] [place] [address], [id number], [place] tel:[phone] [facility] blurry vision (chief complaint) Tear film insufficiency of bilateral lacrimal glandsOther vitreous opacities, bilateralDipl opiaHypermetr opia of both eyes Oct-3 0- 8 Krishnasamy Anthony. [address], [address], [place], [place], [address], [place]. tel:[phone] Referring Provider: Anthony Gutierrez, [address], [place], [address]. tel:[phone] OFFICE/OUTPA TIENT VISIT, EST [facility], [address] [place] [address], [id number], [place] tel:[phone] [facility] blurry vision (chief complaint) dry eyes (chief complaint) DiplopiaOther vitreous opacities, bilateralTear film insufficiency of bilateral lacrimal glandsHyperme tropia of both eyes Dec-2 7 7 Krishnasamy Anthony. [address], [place], [place], [id number], [place]. tel:[phone] Referring Provider: Anthony Gutierrez, [address], [place], [address]. tel:[phone] OFFICE/OUTPA TIENT VISIT, EST [facility], [address] [place] [address], [id number], tel:[phone] OPH [facility]ULT [facility] blurry vision (chief complaint) Reflex sympathetic dystrophy, unspecifiedTe ar film insufficiency , unspecifiedHy permetropia of both eyesOther vitreous opacities, bilateralDipl opia Oct-0 5-201 6 Krishnasamy Anthony. [address], [address], [id number], [place]. tel:[phone] Referring Provider: Anthony Gutierrez, [address], [place], [address]. tel:[phone] OFFICE/OUTPA TIENT VISIT, NEW [facility], [address] [place] [address], [id number], [place] tel:[phone] O[facility] Consult [facility] blurry vision (chief complaint) Hypermetropia Tear film insufficiency , unspecifiedOt her vitreous opacitiesDipl opiaReflex sympathetic dystrophy, unspecified Sep-2 8-201 5 Krishnasamy Anthony. [address], [address], [id number], [place]. tel:[phone] Referring Provider: Anthony Gutierrez, [address], [place], [address]. tel:[phone] OFFICE/OUTPA TIENT VISIT, EST [facility], [address] [place] [address], [place], [place], [id number], [place] tel:[phone] Oph Consult [facility] Office Tear film insufficiency , unspecifiedRe flex sympathetic dystrophy, unspecifiedOt her vitreous opacitiesHype rmetropiaDipl opia Feb- 4 Krishmargaret Anthony. [address], [place], [place], [address], [place]. tel:[phone] Referring Provider: Anthony Gutierrez, [address], [place], [address]. tel:[phone] OFFICE/OUTPA TIENT VISIT, EST [facility], [address] [place] [address], [place], [place], [id number], tel:[phone] O[facility] Consult [facility] Office Other vitreous opacitiesTear film insufficiency , unspecifiedDi plopiaHyperme tropia Mar- 3 Krishnasnina Anthony. [address], [place], [place], [address], [place]. tel:[phone] Referring Provider: Anthony Gutierrez, [address], [place], [address]. tel:[phone] OFFICE/OUTPA TIENT VISIT, EST [facility], [address] [place] [address], [id number], [place] tel:[phone] [facility] Tear film insufficiency , unspecifiedRe flex sympathetic dystrophy, unspecifiedDi plopiaHyperme tropia Sep- 3 Krishnasnina Anthony. [address], [place], [place], [id number], [place]. tel:[phone] Referring Provider: Anthony Gutierrez [address], [place], [address]. tel:[phone] OFFICE/OUTPA TIENT VISIT, EST [facility], [address], [id number], tel:[phone] [facility] Tear film insufficiency , unspecifiedDi plopia 2 Brenda Cruz. [address], [address], [address], . tel:[phone] Referring Provider: Anthony Gutierrez, [address], [place], [address]. tel:[phone] OFFICE/OUTPA TIENT VISIT, NEW [facility], [address] [place] [address], [place], [place], [id number], tel:[phone] [facility] DiplopiaHeada cheHypermetro tierra 1 Brenda Cruz. [address], [place], [place], [address], . tel:[phone] Family History Family Member Type Diagnosis Age At Onset Son Problem (finding) Lazy eye Payers Payer name Insurance type Covered alliance party ID Authorjosea tirin(s) [place]IC[place] [id number] [place] [id number] Social History Type Description Quantity Date Captured [...] D&N. Pt saw Dr Nai Sotelo at [facility] for prism. Pt did not update [...] of bilateral lacrimal glands Impression/Plan Related to Left eye pain Impression/Plan Related to Age-r elated nuclear cataract, [...] vitreous opacities, bilateral Impression/Plan Related to Hyper metropia of both eyes Impression/Plan Related to Tear film insufficiency of bilateral lacrimal glands Impression/Plan Related to Other vitreous opacities, bilateral Impression/Plan Related to Diplo tierra Impression/Plan - [...] does not include the prism. Check with [facility] regarding prism OU Related to Hypermetropia of both eyes RTO 1 year with [facility] Related to Re flex sympathetic dystrophy, unspecified Impression/Plan - Di scussed diagnosis in detail with patient. Discussed signs and symptoms of PVD/floaters. Discussed signs and symptoms of retinal detachment. Reassured patient of current condition and treatment. Will continue to observe condition and or symptoms. Related to Other vitreous opacities, bilateral Impression/Plan - Di scussed treatment options with patient. Patient instructed to use artificial tears as needed. samples given Will continue to observe condition and or symptoms. Related to Tear film insufficiency, unspecified Follow up - RTO 1 year with [facility] R elated to Reflex sympathetic dystrophy, unspecified Impression/Plan - In termittent secondary to Occular surface vs RSD Related to Diplopia Impression/Plan - Ne w Rx given today but does not include the prism. Check with [facility] regarding prism OU Related to Hypermetropia [...] up with Dr Pugh Related to Hypermetropia Diplopia, - resolved w/ prisms R elated to Diplopia - Return in 1 year f or Complete Exam, with Anthony Gutierrez MD Related to Headaches Dry Eye Syndrome, OU - mild - Discussed diagnosis in detail with patient. Patient instructed to use artificial tears as needed. 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 Patient will see Smita Richardson (pharmacist in charge owner) @ [facility] for prisms/glasses. Related to Headaches Reflex [...] +1.75+0.75x 082. Patient will see Smita Richardson (pharmacist in charge owner) @ [facility] 12/24/2010 for motility exam and measurements [...]
--- OUTSIDE RECORDS SUMMARY | 2024-12-01 09:52 | XMS_ITS | Continuity of Care Document ---
Author Organization [facility] Address [address] [place] [address] [address] [place] [address] Phone Care Team Providers Care Silo Painter Name Role Phone Anthony Gutierrez Unavailable Unavailable [...] Providers Copied on Encounter Office/outpat ient Visit, [facility], [address] [place] [address] [address], [place], [place], [id number], [place] tel:[phone] SEC [facility] No Information 0 0 Krishnasamy Anthony. [address] [facility] [address], [place], [address], [place]. tel:[phone] Office/outpat ient Visit, [facility], [address] [place] [address] [address], [place], [place], [address], [place] tel:[phone] [facility] [place] No Information 0 0 Krishnasamy Anthony. [address] [facility] [place] [address], [place], [place], [facility], [place]. tel:[phone] Office/outpat ient Visit, Est [facility], [address] [place] [address] [address], [place], [place], [address], [place] tel:[phone] SEC [facility] No Information Fe-2 3-201 0 Krishnasamy Anthony. [address] [facility] [place] [address], [place], [place], [facility], [place]. tel:[phone] [facility], [address] [place] [address] [address], [place], [place], [address], [place] tel:[phone] [facility] No Information Jan-3 1-200 9 Krishnasamy Anthony. [facility], [facility] [address], [place], [place], [facility], [place]. tel:[phone] [facility], [address] [place] [address] [address], [place], [place], [address], [place] tel:[phone] SEC [facility] No Information You-2 2-200 9 Krishnasamy Anthony. [address] [place], [place] [address] [place] [address], [place], [place], [facility], [place]. tel:[phone] [facility], [address] [place] [address] [address], [place], [place], [address], [place] tel:[phone] [facility] [place] No Information May-0 8-200 9 Krishnasamy Anthony. [facility], [facility] [place] [address], [place], [place], [facility], [place]. tel:[phone] [facility], [address], [place], [place], [address], [place] tel:[phone] [facility] No Information Apr-2 8-200 7 Montes OD Simone. [address], [place], [place], [facility], [place]. tel:[phone] Family History Family Member Type Diagnosis Age At Onset No Information Payers Payer name Insurance type Covered constitution party ID Authoriza tion(s) Medicare [facility] [id number] Medicaid [facility] [id number] Social History Type Description Quantity Date Captured [...]
--- OUTSIDE RECORDS SUMMARY | 2024-12-01 09:52 | XMS_ITS | Clinical Summary ---
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 Gender Identity Not on file Sexual [...] Screening with HPV 1994 Mammogram Screening 2004 Pneumococcal Vaccine: 50+ Ye ars (1 of 1 - PCV) 2014 Zoster Vaccines (1 of 2) 2014 COVID-19 [...] this topic Medical Devices Implanted Type Area Analytics Specialist Device Identifier Shelf Expiration Date Model / Serial / Lot Ivc Filter Filter Pacemaker Pacemaker [employer]RON[employer] Spinal Cord Stimulator Implant Stimulator Implant Insurance MEDICARE MEDICAID Care Teams Ammonia Nitrate Operator Relationship Specialty Start Date End Date Tom Paz MD [address] [address] PCP - General 09/29/22 Hugo Ordoñ[place]., [place] [id number] [address] CARDIOVASCULAR DISEASE 07/15/23
== END 2024-12-01 09:47 | disposition home or self-care (01) ==
PROVIDERS: PCP Family Medicine; Visit Provider Nurse Practitioner Adult Health
DX: M25.512 Pain in left shoulder (principal)
CPT/HCPCS: 73030

== ENCOUNTER 2024-12-16 12:54 | Emergency (ER) | payer MEDICARE, MEDICAID, SELFPAY ==
--- NOTE | ~2024-12-16 | CT_ITS ---
EXAMINATION: CT brain wo con DATE: 12/16/2024 14:32 INDICATION: Imbalance, going to the right TECHNIQUE: Computed tomography (CT) of the head was performed without intravenous contrast. Sagittal and coronal reconstructions were performed. The mA was adjusted according to patient size. Iterative reconstruction technique was employed. The dose-length product was 605.33 mGy-cm. COMPARISON: head CT dated 09/30/2024 and 05/27/2023 FINDINGS: No acute intracranial hemorrhage, acute infarction or abnormal extra axial fluid collection. There is mild scattered white matter hypoattenuation consistent with chronic small vessel ischemic disease. S table appearance of chronic dystrophic calcifications at the medial aspect of the left cerebellar hem isphere. Ventricles are normal and symmetric. No mass/mass effect. The orbits, paranasal sinuses and mastoid air cells are normal. IMPRESSION: 1. No acute intracranial process. 2. Mild scattered white matter hypoattenuation consistent with chronic small vessel ischemic disease. Reviewed, dictated and finalized at location A. IMPRESSION: 1. No acute intracranial process. 2. Mild scattered white matter hypoattenuation consistent with chronic small ve ssel ischemic disease.
--- NOTE | ~2024-12-16 | XR_ITS ---
CHEST RADIOGRAPH CLINICAL HISTORY: stroke symptoms . COMPARISON: 10/19/2024 TECHNIQUE: Single portable view of the chest. FINDINGS The left mid lung is partially obscured due to pacemaker generator. Wires project over the right atrium and right ventricle. Dorsal column stimulator device is noted. Amplatzer device projects over the left atrial appendage. The remainder of the cardiomediastinal silhouette is otherwise unremarkable. The lungs are clear. IMPRESSION: No focal infiltrate or effusion. Reviewed, dictated and finalized at location A.
--- NOTE | ~2024-12-16 | CT_ITS ---
CTA brain carotid Ordering provider: Félix Tafoya History: . tia/balance issues . Comparison: December 16, 2024 Technique: CT angiogram head and neck was performed following timed intravenous injection of contrast . Thin slice axial images and reformatted coronal images were obtained. Three dimensional reformatted images of the brain were also obtained using a [employer] workstation. Radiation reduction technique utilized.The dose-length product was 1174.75 mGy-cm. 100 mL Omnipaque 3 50 350 was given IV. FINDINGS: HEAD: --ANTERIOR AND MIDDLE CEREBRAL ARTERIES AND BRANCHES: Normal caliber and contour. --INTERNAL CAROTID ARTERIES: Mild atheromatous disease but no significant stenosis. No occlusion. --BASILAR ARTERY AND BRANCHES: Normal caliber and contour. No atheromatous disease. --POSTERIOR CEREBRAL ARTERIES: Normal caliber and contour --POSTERIOR COMMUNICATING ARTERIES: Not visualized which is probably related to congenital absence or small size. --ANEURYSM: None visualized. --BRAIN: Please refer to report of CT head performed the same day. --BONES AND SUPERFICIAL SOFT TISSUES: Please refer to report of CT head performed the same day. --PARANASAL SINUSES AND MASTOIDS: Please refer to report of CT head done the same day. NECK: --RIGHT CERVICAL CAROTID SYSTEM: Mild atheromatous disease of the carotid bulb and proximal internal carotid artery without significant stenosis. Percent stenosis per NASCET criteria is 20%. No carotid dissection. Otherwise, no significant atheromatous disease or stenosis of the cervical carotid syste m. --LEFT CERVICAL CAROTID SYSTEM: Mild atheromatous disease of the carotid bulb and proximal internal c arotid artery without significant stenosis. Percent stenosis per NASCET criteria is 20%. No carotid dissection. Otherwise, no significant atheromatous disease or stenosis of the cervical carotid system. --VERTEBRAL ARTERIES: Dominant right vertebral artery. Otherwise, Normal caliber and contour. --VISUALIZED AORTIC ARCH AND BRANCHING VESSELS: Normal caliber and contour. No significant atheromato us disease. --SOFT TISSUES: Normal. --CERVICAL SPINE: Age appropriate degenerative changes. IMPRESSION: 1. Normal CTA head. 2. CTA neck. Percent stenosis per NASCET criteria is 20% bilaterally. Reviewed, dictated and finalized at location A.
--- OUTSIDE RECORDS SUMMARY | 2024-12-16 12:56 | XMS_ITS | Continuity of Care Document ---
Author Organization [facility] Address [address] [place] [address] [address] [place] [address] Phone Care Team Providers Care Gardener Name Role Phone Anthony Gutierrez Unavailable Unavailable [...] Providers Copied on Encounter [place], [facility] [place] [address] [place] [address] [address], [place], [place], [id number], [place] tel:[phone] SEC [facility] No Information 0 0 Krishnasamy Anthony. [address] [facility] [address], [place], [address], [place]. tel:[phone] [place]pat [place], [facility] [place] [address] [place] [address] [address], [place], [place], [id number], [place] tel:[phone] [facility] No Information 0 0 Krishnasamy Anthony. [address] [facility] [address], [place], [place], [facility], [place]. tel:[phone] Office/outpat ient Visit, [facility], [id number] [place] [address] [address], [place], [place], [id number], [place] tel:[phone] SEC [facility] No Information Fe-2 3-201 0 Krishnasamy Anthony. [address] [facility] [address], [place], [place], [facility], [place]. tel:[phone] [facility], [address] [place] [address] [address], [place], [place], [id number], [place] tel:[phone] [facility] No Information Jan-3 1-200 9 Krishnasamy Anthony. [facility] [address], [place], [place], [facility], [place]. tel:[phone] [facility], [address] [place] [address] [address], [place], [place], [id number], [place] tel:[phone] SEC [facility] No Information You-2 2-200 9 Krishnasamy Anthony. [address] [place], [place] [address]ate [address], [place], [place], [facility], [place]. tel:[phone] [facility], [address] [place] [address] [address], [place], [id number], [place] tel:[phone] [facility] No Information May-0 8-200 9 Krishnasamy Anthony. [facility] [address], [place], [place], [facility], [place]. tel:[phone] [facility], [address], [place], [place], [id number], [place] tel:[phone] [facility] No Information Apr-2 8-200 7 Montes OD Simone. [address], [place], [place], [facility], [place]. tel:[phone] Family History Family Member Type Diagnosis Age At Onset No Information Payers Payer name Insurance type Covered green party ID Authoriza tion(s) Medicare [facility] [id number] Medicaid [facility] [id number] Social History Type Description Quantity Date Captured [...]
--- OUTSIDE RECORDS SUMMARY | 2024-12-16 12:57 | XMS_ITS | CONTINUITY OF CARE DOCUMENT ---
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 Office - In-person encounter Office Visit Huog Ordoñez MD [facility] - In-person encounter Office Visit Hugo Ordoñez MD [facility] - In-person encounter Office Visit Trent Pike [facility] - In-person encounter Office Visit Hugo Ordoñez MD [facility] - In-person encounter Office Visit Hugo Ordoñez MD [facility] - In-person encounter Office Visit Morgan Roy MD [facility] Atrial Fibrillation s/p AMULETGroin pain, right - In-person encounter Office Visit Hugo Ordoñez MD [facility] Office - In-person encounter Office Visit Hugo Ordoñez MD [facility] - In-person encounter Office Visit Hugo Ordoñez MD [facility] - In-person encounter Office Visit Hugo Ordoñez MD [facility] Office - In-person encounter Office Visit Hugo Ordoñez MD [facility] - In-person encounter Office Visit Hugo Ordoñez MD [facility] - In-person encounter Office Visit Morgan Roy MD [facility] - In-person encounter Office Visit Hugo Ordoñez MD [facility] Ischemia, transient cerebral NOS - In-person encounter Office Visit Hugo Ordoñez MD [facility] - In-person encounter Office Visit Hugo Ordoñez MD [facility] - In-person encounter Office Visit Hugo Ordoñez MD [facility] Office - In-person encounter Office Visit Hugo Ordoñez MD [facility] - In-person encounter Office Visit Hugo Ordoñez MD [facility] - In-person encounter Office Visit Hugo Ordoñez MD [facility] Office - In-person encounter Office Visit Hugo Ordoñez MD [facility] COVID-19 asymptomatic, no exposure, testing results unknown or negative screening - In-person encounter Office Visit Hugo Ordoñez MD [facility] - In-person encounter Office Visit Hugo Ordoñez MD [facility] Office - In-person encounter Office Visit Hugo Ordoñez MD [facility] - In-person encounter Office Visit Hugo Ordoñez [facility] - In-person encounter Office Visit Giorgio Catalan MD [facility] Office - In-person encounter Office Visit Hugo Ordoñez MD [facility] Office - In-person encounter Office Visit Hugo Ordoñez MD [facility] - In-person encounter Office Visit Hugo Ordoñez MD [facility] - In-person encounter Office Visit Jean Claude Calixto DO [facility] - In-person encounter Office Visit Hugo Ordoñez MD [facility] - In-person encounter Office Visit Jean Claude Calixto DO [facility] Office - In-person encounter Office Visit Jean Claude Calixto DO [facility] Office - In-person encounter Office Visit Hugo Ordoñez MD [facility] - In-person encounter Office Visit Tab Taylor MD [facility] - In-person encounter Office Visit Hugo Ordoñez MD [facility] Office - In-person encounter Office Visit Hugo Ordoñez MD [facility] - In-person encounter Office Visit Tab Taylor MD [facility] - In-person encounter Office Visit Tab Taylor MD [facility] - In-person encounter Office Visit Tab Taylor MD [facility] - In-person encounter Office Visit Tab Taylor MD [facility] Office - In-person encounter Office Visit Hugo Ordoñez MD [facility] - In-person encounter Office Visit Tab Taylor MD [facility] - In-person encounter Office Visit Hugo Ordoñez MD [facility] - In-person encounter Office Visit Tab Taylor MD [facility] Sinus node dysfunction - In-person encounter Office Visit Hugo Ordoñez MD [facility] Office - In-person encounter Office Visit Tab Taylor MD [facility] - In-person encounter Office Visit Hugo Ordoñez MD [facility] - In-person encounter Office Visit Tab Taylor MD [facility] - In-person encounter Office Visit Tab Taylor MD [facility] Presence of implantable loop recorder - In-person encounter Office Visit Tab Taylor MD [facility] Atrial Fibrillation s/p AMULET - In-person encounter Office Visit Hugo Ordoñez MD [facility] Hyperlipidemia - In-person encounter Office Visit Hugo Ordoñez MD [facility] Office - In-person encounter Office Visit Hugo Ordoñez MD [facility] Office - In-person encounter Office Visit Tab Taylor MD [facility] - In-person encounter Office Visit Tab Taylor MD [facility] SVT S/P ablation - In-person encounter Office Visit Tab Taylor MD [facility] - In-person encounter Office Visit Hugo Ordoñez MD [facility] - In-person encounter Office Visit Hugo Ordoñez MD [facility] - In-person encounter Office Visit Hugo Ordoñez MD [facility] Diastolic heart fail ure, chronic - In-person encounter Office Visit Hugo Ordoñez MD [facility] Shortness of breathEdema - localized - In-person encounter Office Visit Rodo Berg MD [facility] - In-person encounter Office Visit Rodo Berg MD [facility] - In-person encounter Office Visit Hugo Ordoñez MD [facility] - In-person encounter Office Visit Rodo Berg MD [facility] Inappropriate sinus tachycardia - In-person encounter Office Visit Rodo Berg MD [facility] - In-person encounter Office Visit Rodo Berg MD [facility] - In-person encounter Office Visit Hugo Ordoñez MD [facility] - In-person encounter Office Visit Hugo Ordoñez MD [facility] - In-person encounter Office Visit Genaro Jane MD [facility] - In-person encounter Office Visit Hugo Ordoñez MD [facility] - In-person encounter Office Visit Hugo Ordoñez MD [facility] Venous thrombosis - In-person encounter Office Visit Hugo Ordoñez MD [facility] - In-person encounter Office Visit Hugo Ordoñez MD [facility] Palpitations - In-person encounter Office Visit Hugo Ordoñez MD [facility] - In-person encounter Office Visit Hugo Ordoñez MD [facility] - In-person encounter Office Visit Hugo Ordoñez MD [facility] - In-person encounter Office Visit Hugo Ordoñez MD [facility] - In-person encounter Office Visit Hugo Ordoñez MD [facility] In-person encounter Office Visit Hugo Ordoñez MD [facility] - In-person encounter Office Visit Hugo Ordoñez MD [facility] - In-person encounter Office Visit Hugo Orodñez MD [facility] - In-person encounter Office Visit Hugo Ordoñez MD [facility] - In-person encounter Office Visit Hugo Ordoñez MD [facility] REFLEX SYMPATHETIC DYSTROPHY OF THE LOWER LIMBHypotensionSYNCOPE VITAL SIGNS Date Observation Value Provider blood pressure, diastolic 83 mm[Hg] Li nkLogjuan m blood pressure, systolic 134 mm[Hg] Amee Bourne blood pressure, diastolic 83 mm[Hg] Cordell Maharaj blood pressure, systolic 134 mm[Hg] Sonali ewing Maharaj respiratory rate E&M 16 /min Indira Nicko oxygen saturation, oximetry 98 % Indira Maharaj pulse rate 74 /min Indira Maharaj height E&M 68.5 [in_i] Indiramaxime Maharaj Body Mass Index (Ratio) 29.66 kg/m2 Bruce Ordoñez MD blood pressure, diastolic 82 mm[Hg] Aimee barrett [facility] blood pressure, systolic 136 mm[Hg] Gina kristy [facility] oxygen saturation, oximetry 96 % Amarilys [facility] pulse rate 72 /min Amarilys [facility] blood pressure, cuff size regular Aimee barrett [facility] weight E&M 198 [lb_av] Amarilys [facility] height E&M 68.5 [in_i] Amarilys [facility] Body Mass Index (Ratio) 29.81 kg/m2 Bruce Ordoñez MD pulse rate 73 /min Minal castaneda oxygen saturation, oximetry 99 % Minal Romero blood pressure, diastolic 91 mm[Hg] Marty Romero blood pressure, systolic 115 mm[Hg] Chalino Romero blood pressure, cuff size regular Marty Romero weight E&M 199 [lb_av] Minal Swan s height E&M 68.5 [in_i] Minal Swan s Body Mass Index (Ratio) 29.13 kg/m2 Bruce Ordoñez MD blood pressure, cuff size regular As varun Lopes blood pressure, diastolic 76 mm[Hg] As elizabeth Lopes blood pressure, systolic 102 mm[Hg] Vince Lopes pulse rate 72 /min Linda Lopes oxygen saturation, oximetry 98 % Linda Moses weight E&M 194.4 [lb_av] [facility] Body Mass Index (Ratio) 29.37 kg/m2 Gildardo as Jackson blood pressure, cuff size regular Ke rri Gruenenfelder blood pressure, diastolic 80 mm[Hg] Ke rri Gruenenfelder blood pressure, systolic 126 mm[Hg] Ker ri Dannyer oxygen saturation, oximetry 97 % Kendra Conradonenffeliciaer pulse rate 77 /min Kendra Gruenenfe lder weight E&M 196 [lb_av] Kendra Gruenenfe lder height E&M 68.5 [in_i] Kendra Gruenenfe lder Body Mass Index (Ratio) 29.51 kg/m2 Madison Pike MD blood pressure, diastolic 60 mm[Hg] Madeline nkLogjuan m blood pressure, systolic 100 mm[Hg] Amee kLogic oxygen saturation, oximetry 98 % Kendra Conradonenffreddie pulse rate 70 /min Kendra Grledanenfe lder blood pressure, diastolic 60 mm[Hg] Ke rri Conradonesallieelder blood pressure, systolic 100 mm[Hg] Kera ri Lulufreddie weight E&M 197 [lb_av] Kendra Rere [facility][note 3] height E&M 68.5 [in_i] Kendra Jernigan [facility][note 3] Body Mass Index (Ratio) 29.37 kg/m2 Bruce Ordoñez MD blood pressure, cuff size regular Ke rri Lulufreddie blood pressure, diastolic 70 mm[Hg] Ke rri Lulufreddie blood pressure, systolic 130 mm[Hg] Kera Lawsonfreddie oxygen saturation, oximetry 96 % Kendra Heidi respiratory rate E&M 12 /min Kendra Cally navarro pulse rate 91 /min Kendra Jernigan [facility][note 3] weight E&M 196 [lb_av] Kendra Rere [facility][note 3] height E&M 68.5 [in_i] Kendra Jernigan [facility][note 3] Body Mass Index (Ratio) 28.77 kg/m2 Bruce Ordoñez MD blood pressure, cuff size regular Ta pat Faulkner blood pressure, diastolic 88 mm[Hg] Ta bitha Faulkner blood pressure, systolic 128 mm[Hg] Tab itha Kaushik oxygen saturation, oximetry 99 % Padmaja Kaushik pulse rate 92 /min Padmaja Kaushik weight E&M 192 [lb_av] Padmaja Kaushik respiratory rate E&M 12 /min Padmaja [place]ner height E&M 68.5 [in_i] Padmajadeepti Faulkner pulse rate 70 /min Linda Lopes blood pressure, diastolic 75 mm[Hg] Gautam Lopes blood pressure, systolic 109 mm[Hg] Vince Lopes Body Mass Index (Ratio) 29.81 kg/m2 Payt on Carmenza blood pressure, cuff size regular Syed Faulkner blood pressure, diastolic 80 mm[Hg] Ta pat Faulkner blood pressure, systolic 118 mm[Hg] Tab deepti Faulkner oxygen saturation, oximetry 96 % Padmaja Faulkner respiratory rate E&M 12 /min Padmaja Faulkner pulse rate 70 /min Padmaja Faulkner weight E&M 199 [lb_av] Padmaja Faulkner height E&M 68.5 [in_i] Padmaja Faulkner Body Mass Index (Ratio) 30.26 kg/m2 Bruce Ordoñez MD blood pressure, cuff size regular Ke rri Gruenenfeldearl blood pressure, diastolic 80 mm[Hg] Ke rri Gruenenfelder blood pressure, systolic 132 mm[Hg] Ker ri Heidi oxygen saturation, oximetry 96 % Kendra Heidi respiratory rate E&M 12 /min Kendra Cally navarro pulse rate 87 /min Kendra Gruenenfe [facility][note 3] weight E&M 202 [lb_av] Kendra Gruenenfe [facility][note 3] height E&M 68.5 [in_i] Kendra Gruenenfe [facility][note 3] Body Mass Index (Ratio) 29.66 kg/m2 Bruce Ordoñez MD blood pressure, cuff size regular Ke rri Gruenenfelder blood pressure, diastolic 86 mm[Hg] Ke rri Gruenenfelder blood pressure, systolic 130 mm[Hg] Ker ri Heidi oxygen saturation, oximetry 98 % Kendra Gruenenfelder respiratory rate E&M 12 /min Kendra godinezenenfelder pulse rate 74 /min Kendra Jernigan [facility][note 3] weight E&M 198 [lb_av] Kendra Lawsone [facility][note 3] height E&M 68.5 [in_i] Kendra Jernigan [facility][note 3] Body Mass Index (Ratio) 29.37 kg/m2 Rishabh Montilla blood pressure, cuff size regular Ke rri Rashiduenesalliefelicia blood pressure, diastolic 90 mm[Hg] Ke rri Gruenesallieeld blood pressure, systolic 140 mm[Hg] Kera Lawsonfreddie pulse rate 108 /min Kendra Jernigan [facility][note 3] oxygen saturation, oximetry 97 % Kendra Lawsonfreddie respiratory rate E&M 12 /min Kendra cordovafreddie weight E&M 196 [lb_av] Kendra Jernigan [facility][note 3] height E&M 68.5 [in_i] Kendra Jernigan [facility][note 3] Body Mass Index (Ratio) 29.37 kg/m2 Bruce [...] blood pressure, cuff size regular [facility] blood [facility], diastolic 82 mm[Hg] Ke rri Danny blood pressure, systolic 142 mm[Hg] Kera Gordon oxygen saturation, oximetry 97 % Kendra Lawsonfreddie respiratory rate E&M 12 /min Kendra cordovast. [facility] pulse rate 79 /min Kendra Jernigan [facility][note 3] weight E&M 199 [lb_av] Kendra Jernigan [facility][note 3] height E&M 68.5 [in_i] Kendra Jernigan [facility][note 3] Body Mass Index (Ratio) 29.07 kg/m2 Kam Roy MD blood pressure, diastolic 89 mm[Hg] An gem Collins blood pressure, systolic 122 mm[Hg] Any maxime Collins blood pressure, cuff size large An gem pulse rate 71 /min Brendamaxime Collins oxygen saturation, oximetry 92 % Brendamaxime Collins weight E&M 194 [lb_av] Brenda height E&M 68.5 [in_i] Brenda Dennis Body Mass Index (Ratio) 29.22 kg/m2 Bruce Ordoñez MD blood pressure, diastolic 87 mm[Hg] An gem Collins blood pressure, systolic 125 mm[Hg] Any a Dennis pulse rate 79 /min Brenda Dennis blood pressure, cuff size large An gem oxygen saturation, oximetry 98 % Brendamaxime Collins weight E&M 195 [lb_av] Brenda height E&M 68.5 [in_i] Brendamaxime Collins Body Mass Index (Ratio) 28.92 kg/m2 Bruce Ordoñez MD blood pressure, cuff size regular Ke rri Rashiduenefreddy blood pressure, diastolic 80 mm[Hg] Ke rri Gruenenffreddie blood pressure, systolic 126 mm[Hg] Kera ri Gruenenffreddie oxygen saturation, oximetry 98 % Kendra Grledanefreddy respiratory rate E&M 12 /min Kendra G gretchenenenfeldearl pulse rate 75 /min Kendra Gruenenfe sunshine weight E&M 193 [lb_av] Kendra Gruenenfe sunshine height E&M 68.5 [in_i] Kendra Rere gonsalez Body Mass Index (Ratio) 29.51 kg/m2 Bruce Ordoñez MD blood pressure, diastolic 97 mm[Hg] Madeline [facility] blood pressure, systolic 136 mm[Hg] Amee [facility] weight E&M 197 [lb_av] Brendamaxime Collins blood pressure, diastolic 97 mm[Hg] An gem Collins blood pressure, systolic 136 mm[Hg] Any maxime Collins oxygen saturation, oximetry 97 % Brenda Collins pulse rate 70 /min Brenda Collins height E&M 68.5 [in_i] Brenda Collins blood pressure, cuff size large An gem Collins Body Mass Index (Ratio) 28.47 kg/m2 Bruce Ordoñez MD blood pressure, cuff size large Ke rri Heidi blood pressure, diastolic 80 mm[Hg] Ke rri Rashiduenenffreddie blood pressure, systolic 110 mm[Hg] Kera ri Heidi oxygen saturation, oximetry 98 % Kendra Heidi respiratory rate E&M 16 /min Kendra G melanie pulse rate 81 /min Kendra Jernigan lder weight E&M 190 [lb_av] Kendra Lulue lder height E&M 68.5 [in_i] Kendra Rere lder Body Mass Index (Ratio) 28.47 kg/m2 [...] blood pressure, cuff size large Ke rri Luluelder blood pressure, diastolic 84 mm[Hg] Ke rri Rashiduenesallieeldearl blood pressure, systolic 126 mm[Hg] Kera Gordon oxygen saturation, oximetry 99 % Kendra Gordon respiratory rate E&M 14 /min Kendra navarro pulse rate 82 /min Kendra Jernigan lder weight E&M 192 [lb_av] Kendra Jernigan lder height E&M 68.5 [in_i] Kendra Jernigan lder Body Mass Index (Ratio) 28.77 kg/m2 Bruce Ordoñez MD blood pressure, diastolic 75 mm[Hg] Kristy Santamaria blood pressure, systolic 117 mm[Hg] Sujatha Santamaria oxygen saturation, oximetry 98 % Rachel Santamaria respiratory rate E&M 20 /min Deepthi Santamaria pulse rate 86 /min Rachel norton weight E&M 192 [lb_av] Rachel norton blood pressure, cuff size regular Kristy Santamaria height E&M 68.5 [in_i] Rachel norton Body Mass Index (Ratio) 27.57 kg/m2 Bruce Ordoñez MD blood pressure, diastolic 97 mm[Hg] Ca therine Travis blood pressure, systolic 138 mm[Hg] Cat herine [place] oxygen saturation, oximetry 97 % Corinne Travis respiratory rate E&M 16 /min Catheri ne [place] pulse rate 76 /min Corinne Travis weight E&M 184 [lb_av] Corinne [place] blood pressure, cuff size regular Ca therine Travis height E&M 68.5 [in_i] Corinne Travis Body Mass Index (Ratio) 27.27 kg/m2 Bruce Ordoñez MD blood pressure, diastolic 95 mm[Hg] Li nkLogic blood pressure, systolic 133 mm[Hg] Amee kLogic blood pressure, diastolic 95 mm[Hg] Ca therine [place] blood pressure, systolic 133 mm[Hg] Cat herine [place] oxygen saturation, oximetry 98 % Corinne Travis respiratory rate E&M 18 /min Catheri ne [place] pulse rate 92 /min Corinne [place] weight E&M 182 [lb_av] Corinne [place] blood pressure, cuff size regular Ca therine [place] height E&M 68.5 [in_i] Corinne Travis Body [...] blood pressure, cuff size regular Pa ris [place] blood pressure, diastolic 74 mm[Hg] Pa ris [place] blood pressure, systolic 136 mm[Hg] Par is [place] oxygen saturation, oximetry 98 % Sophia Ridge respiratory rate E&M 18 /min Sophia H neda pulse rate 74 /min Sophia [place] height E&M 68.5 [in_i] Sophia [place] Body Mass Index (Ratio) 28.35 kg/m2 Sund brad Catalan MD blood pressure, cuff size regular Tr jennifer Sibley blood pressure, diastolic 80 mm[Hg] Tr jennifer Sibley blood pressure, systolic 120 mm[Hg] Love Sibley oxygen saturation, oximetry 98 % Melanie Sibley respiratory rate E&M 16 /min Melanie Sibley pulse rate 60 /min Melanie Sibley weight E&M 189.2 [lb_av] Melanie castaneda height E&M 68.5 [in_i] Lovenett Sibley blood pressure, diastolic 102 mm[Hg] Li nkLogic blood pressure, systolic 125 mm[Hg] Amee kLogic blood pressure, cuff size regular Ca therine Travis blood pressure, diastolic 102 mm[Hg] Ca therine [place] blood pressure, systolic 125 mm[Hg] Cat herine [place] oxygen saturation, oximetry 96 % Corinne [place] respiratory rate E&M 14 /min Catheri ne [place] pulse rate 92 /min Corinne [place] height E&M 68.5 [in_i] Corinne [place] Body Mass Index (Ratio) 29.07 kg/m2 Bruce Ordoñez MD blood pressure, diastolic 90 mm[Hg] Madeline nkLogic blood pressure, systolic 136 mm[Hg] Amee kLogic blood pressure, diastolic 90 mm[Hg] Daysi martinez Manolo blood pressure, systolic 136 mm[Hg] Cayden forbes [facility] oxygen saturation, oximetry 98 % Denise Manolo respiratory rate E&M 18 /min Kimberly suárez Manolo pulse rate 67 /min Denise Manolo weight E&M 194 [lb_av] Denise [facility] height E&M 68.5 [in_i] Denise Manolo Body Mass Index (Ratio) 28.77 kg/m2 Bruce Ordoñez MD blood pressure, diastolic 80 mm[Hg] Li nkLogic blood pressure, systolic 118 mm[Hg] Amee kLogic blood pressure, cuff size regular Kr isty Chris pulse rate 65 /min Va Castilloby blood pressure, diastolic 80 mm[Hg] Kr isty Chris blood pressure, systolic 118 mm[Hg] Aguila Perez oxygen saturation, oximetry 97 % Va Perez respiratory rate E&M 19 /min Va Perez weight E&M 192 [lb_av] Va Perez height E&M 68.5 [in_i] Va Perez Body Mass Index (Ratio) 28.62 kg/m2 Rios Calixto DO blood pressure, cuff size large [facility], diastolic 72 mm[Hg] [facility] blood [facility], systolic 110 mm[Hg] Kera Gordon oxygen saturation, oximetry 98 % Kendra Gordon respiratory rate E&M 16 /min Kendra navarro pulse rate 75 /min Kendra Jernigan [facility][note 3] weight E&M 191 [lb_av] Kendra Rere [facility][note 3] height E&M 68.5 [in_i] Kendra Rere [facility][note 3] Body Mass Index (Ratio) 28.92 kg/m2 Bruce Ordoñez MD blood pressure, diastolic 85 mm[Hg] Fe clementedavid Nelson blood pressure, systolic 140 mm[Hg] Fel icia Nelson weight E&M 193 [lb_av] Mary Nelson oxygen saturation, oximetry 95 % Mary Nelson respiratory rate E&M 16 /min Mary Nelson pulse rate 96 /min Mary Nelson temperature E&M 97.8 [degF] Mary Nelson height E&M 68.5 [in_i] Mary Nelson Body Mass Index (Ratio) 28.62 kg/m2 Rios Calixto DO blood pressure, diastolic 72 mm[Hg] Daysi martinez Manolo blood pressure, systolic 130 mm[Hg] Cayden helanya [facility] blood pressure, resting No Román dent Manolo oxygen saturation, oximetry 98 % Denise [facility] respiratory rate E&M 18 /min Kimberly suárez [facility] pulse rate 67 /min Denise [facility] weight E&M 191 [lb_av] Denise [facility] height E&M 68.5 [in_i] Denise [facility] Body Mass Index (Ratio) 27.57 kg/m2 JT S treepy blood pressure, diastolic 60 mm[Hg] Ma rsha O'Aly blood pressure, systolic 110 mm[Hg] Gricelda [...] Joslyn Franco pulse rate 86 /min Joslyn Andreabel kris respiratory rate E&M 16 /min Joslyn Franco blood pressure, cuff size regular Cy ntemilee Franco weight E&M 187 [lb_av] Joslyn Campbel l height E&M 68.5 [in_i] Joslyn Campbel l Body Mass Index (Ratio) 27.72 kg/m2 Emanuel olgautam Lambros blood pressure, diastolic 109 mm[Hg] Fe [...] Block Body Mass Index (Ratio) 27.72 kg/m2 Emanuel nico Lambros blood pressure, cuff size regular Kr isty Arnold pulse rate 89 /min Va Chris oxygen saturation, oximetry 99 % Va Chris blood pressure, diastolic 70 mm[Hg] Bradford isheather Arnold blood pressure, systolic 122 mm[Hg] Kri estuardo Chris respiratory rate E&M 19 /min Va Arnold weight E&M 185 [lb_av] Va Arnold height E&M 68.5 [in_i] Va Arnold Body Mass Index (Ratio) 26.82 kg/m2 Jord [...] ttany Block pulse rate 94 /min Sania Warren oxygen saturation, oximetry 97 % Sania Block weight E&M 181 [lb_av] Sania Block respiratory rate E&M 16 /min Papo topete Block height E&M 68.5 [in_i] Yenifer Rocha Body Mass Index (Ratio) 27.72 kg/m2 Bruce Ordoñez MD respiratory rate E&M 16 /min [facility] blood pressure, diastolic 97 mm[Hg] To [facility] blood pressure, systolic 145 mm[Hg] [facility] oxygen saturation, oximetry 98 % [facility] pulse rate 94 /min [facility] weight E&M 185 [lb_av] [facility] height E&M 68.5 [in_i] [facility] Body Mass Index (Ratio) 27.87 kg/m2 Emanuel Heller blood pressure, diastolic 96 mm[Hg] Earl Rodriguez blood pressure, systolic 140 mm[Hg] Mireya Rodriguez oxygen saturation, oximetry 98 % Velma [...] [lb_av] Chastity Jaime height E&M 68.5 [in_i] Ana Jacintoue Body Mass Index (Ratio) 28.17 kg/m2 Jord en Cam blood pressure, diastolic 90 mm[Hg] Er tony Pruitt-Kashif blood pressure, systolic 126 mm[Hg] Mireya Rodriguez oxygen saturation, oximetry 98 % Velma Pruitt-Kashif pulse rate 80 /min Velma Pruitt- Kashif weight E&M 188 [lb_av] Velma Pruitt- Kashif height E&M 68.5 [in_i] Velma Pruitt- Kashif Body Mass Index (Ratio) 28.02 kg/m2 Bruce Ordoñez MD blood pressure, cuff size regular Cy jbemilee Franco blood pressure, diastolic 80 mm[Hg] Cy jbemilee Franco blood pressure, systolic 108 mm[Hg] Anahy gustavo Franco oxygen saturation, oximetry 96 % Joslyn Franco respiratory rate E&M 16 /min Joslyn Franco pulse rate 100 /min Joslyngustavo Glover l weight E&M 187 [lb_av] Joslyn Andreabel l height E&M 68.5 [in_i] Joslyn Andreabel l Body Mass Index (Ratio) 28.02 kg/m2 Jord en Cam blood pressure, diastolic 80 mm[Hg] Br ittany Block blood pressure, systolic 130 mm[Hg] Jessica tony Block pulse rate 111 /min Sania Block [...] Body Mass Index (Ratio) 27.87 kg/m2 Jord jos Cam blood pressure, diastolic 84 mm[Hg] Earl Pruitt-Kashif blood pressure, systolic 120 mm[Hg] Mireya aguilar Pruitt-Kashif oxygen saturation, oximetry 98 % Velma Pruitt-Kashif pulse rate 80 /min Velma Pruitt- Kashif weight E&M 186 [lb_av] Velma Pruitt- Kashif height E&M 68.5 [in_i] Velma Pruitt- Kashif Body Mass Index (Ratio) 27.72 kg/m2 Bruce Ordoñez MD blood pressure, cuff size regular Cy jasper Franco blood pressure, diastolic 68 mm[Hg] Cy jbemilee Salvador blood pressure, systolic 124 mm[Hg] Anahy gustavo Salvador oxygen saturation, oximetry 97 % Joslyn Franco respiratory rate E&M 16 /min Joslyn Franco pulse rate 88 /min Joslyn Andreabel l weight E&M 185 [lb_av] Joslyn Campbel l height E&M 68.5 [in_i] Joslyn Campbel l Body Mass Index (Ratio) 27.87 kg/m2 Bruce Ordoñez MD pulse rate 107 /min Sania Block blood pressure, diastolic 90 mm[Hg] Br ittany Block blood pressure, systolic 124 mm[Hg] Jessica ttany Block oxygen saturation, oximetry 97 % Sania Block weight E&M 186 [lb_av] Sania Block respiratory rate E&M 16 /min Papo Warren height E&M 68.5 [in_i] Sania Block Body [...] Collins blood pressure, systolic 130 mm[Hg] Cry stal Dennis oxygen saturation, oximetry 98 % Ghazala Collins respiratory rate E&M 17 /min Ghazala Collins pulse rate 92 /min Ghazala castaneda height E&M 68.5 [in_i] Velma Rowland Body Mass Index (Ratio) 33.11 kg/m2 Cam Plurhever blood pressure, diastolic 70 mm[Hg] Linda sloanha O'Aly blood pressure, systolic 122 mm[Hg] Gricelda linton O'Aly respiratory rate E&M 16 /min Lara O'Aly oxygen saturation, oximetry 99 % Lara O'Aly pulse rate 90 /min Lara O'Aly weight E&M 221 [lb_av] Lara O'Aly height E&M 68.5 [in_i] Lara O'Aly Body Mass Index (Ratio) 34.16 kg/m2 Sammy Rock blood pressure, cuff size large Rusty rri Heidi blood pressure, diastolic 86 mm[Hg] Rusty rri Lulueldearl blood pressure, systolic 148 mm[Hg] Kera Gordon oxygen saturation, oximetry 98 % Kendra Gordon respiratory rate E&M 20 /min Kendra godinezenenfelder pulse rate 76 /min Kendra Jernigan lder weight E&M 228 [lb_av] Kendra Jernigan lder height E&M 68.5 [in_i] Kendra Jernigan er Body Mass Index (Ratio) 34.01 kg/m2 Bruce [...] Ordoñez MD blood pressure, diastolic 80 mm[Hg] Kr isty Arnold blood pressure, systolic 120 mm[Hg] Kri stefrem Chris respiratory rate E&M 16 /min Va Chris oxygen saturation, oximetry 94 % Va Arnold pulse rate 78 /min Va Chris blood pressure, cuff size regular Kr isty Chris weight E&M 225 [lb_av] Va Arnold height E&M 68.5 [in_i] Va Perez blood pressure, diastolic 94 mm[Hg] Cordell Carter blood pressure, systolic 132 mm[Hg] Jim Carter oxygen saturation, oximetry 97 % Nataly Carter respiratory rate E&M 15 /min Nataly Emma pulse rate 71 /min Nataly Emma height E&M 68.5 [in_i] Nataly [facility] Body Mass Index (Ratio) 32.60 kg/m2 Bruce Ordoñez MD blood pressure, cuff size regular Te jv Marguerite blood pressure, diastolic 78 mm[Hg] Te jvkonstantin Everett blood pressure, systolic 126 mm[Hg] Jose mamekonstantin Everett oxygen saturation, oximetry 97 % Elana Marguerite respiratory rate E&M 18 /min Elana Marguerite pulse rate 102 /min Elana Floydhley weight E&M 217.6 [lb_av] Elana Lascarlee topete Body Mass Index (Ratio) 32.21 kg/m2 Kiran Berg MD weight E&M 215 [lb_av] Deneen Westbrook blood pressure, cuff size regular Syed West[place] pulse rate 74 /min eDneen Westbrook oxygen saturation, oximetry 95 % Deneen [place] respiratory rate E&M 18 /min Deneen West[place] blood pressure, diastolic 90 mm[Hg] Syed [place] blood pressure, systolic 115 mm[Hg] Ayaz [place] height E&M 68.5 [in_i] Deneen Westbrook Body Mass Index (Ratio) 32.69 kg/m2 Kiran Berg MD blood pressure, cuff size regular Te jv Everett blood pressure, diastolic 94 mm[Hg] Te jv Everett blood pressure, systolic 150 mm[Hg] Jose Everett oxygen saturation, oximetry 98 % Elana Everett respiratory rate E&M 18 /min Elana Merchantey pulse rate 87 /min Elana Everett blood pressure, resting No Nela Everett weight E&M 218.2 [lb_av] Elana topete Body Mass Index (Ratio) 31.16 kg/m2 Bruce Ordoñez MD blood pressure, diastolic 90 mm[Hg] Bradford Castilloby blood pressure, systolic 130 mm[Hg] Aguila Perez pulse rate 95 /min Va Castilloby oxygen saturation, oximetry 97 % Va Perez respiratory rate E&M 16 /min Va Perez blood pressure, cuff size regular Bradford Perez weight E&M 208 [lb_av] Va Perez height E&M 68.5 [in_i] Va Castilloby blood pressure, diastolic 80 mm[Hg] Bradford Perez blood pressure, systolic 132 mm[Hg] Aguila Perez pulse rate 96 /min Va Castilloby oxygen saturation, oximetry 98 % Va Castilloby respiratory rate E&M 16 /min Va Arnold Body Mass Index (Ratio) 30.02 kg/m2 Vin Castilloby weight E&M 200.4 [lb_av] Va Chris blood pressure, diastolic 97 mm[Hg] Me botello Larry blood pressure, systolic 136 mm[Hg] Tori Juarez pulse rate 98 /min Brianna Larry oxygen [...] 97 % Va Castilloby respiratory rate E&M 18 /min Va Castilloby Body Mass Index (Ratio) 28.92 kg/m2 Vin ePrez weight E&M 193 [lb_av] Va Castilloby blood pressure, diastolic 78 mm[Hg] Me ayan Juarez blood pressure, systolic 122 mm[Hg] Tori enriqueza Larry respiratory rate E&M 16 /min Brianna Larry pulse rate 103 /min Brianna Larry oxygen saturation, oximetry 97 % Brianna Juarez Body Mass Index (Ratio) 28.62 kg/m2 Mariola Juarez weight E&M 191 [lb_av] Brianna Larry respiratory rate E&M 20 /min Brianna Larry pulse rate 106 /min Brianna Larry oxygen saturation, oximetry 99 % Brianna Larry blood pressure, diastolic 102 mm[Hg] Me gatessa Larry blood pressure, systolic 144 mm[Hg] Tori erniqueza Larry Body Mass Index (Ratio) 29.96 kg/m2 Mariola Juarez weight E&M 200 [lb_av] Brianna Larry blood pressure, diastolic 90 mm[Hg] Francisco Torrez blood pressure, systolic 120 mm[Hg] Olaf Torrez pulse rate 106 /min Sg Torrez oxygen saturation, oximetry 97 % Sg Torrez respiratory rate E&M 24 /min Sg Torrez Body Mass Index (Ratio) 30.29 kg/m2 Elpidio Torrez weight E&M 202.2 [lb_av] Sg Torrez Body Mass Index (Ratio) 29.51 kg/m2 Mariola Juarez weight E&M 197 [lb_av] Brianna Larry respiratory rate E&M 20 /min Brianna Larry pulse rate 108 /min Brianna Larry oxygen saturation, oximetry 98 % Brianna Juarez blood pressure, diastolic 79 mm[Hg] Mt ayansa Juarez blood pressure, systolic 122 mm[Hg] Tori Juarez Body Mass Index (Ratio) 30.26 kg/m2 Elpidio Torrez blood pressure, diastolic 90 mm[Hg] Francisco Torrez blood pressure, systolic 120 mm[Hg] Olaf Torrez pulse rate 104 /min Sg Torrez oxygen saturation, oximetry 98 % Sg Torrez respiratory rate E&M 22 /min Sg Torrez weight E&M 202 [lb_av] Sg Torrez Body Mass Index (Ratio) 29.51 kg/m2 Ashl sam Kate blood pressure, diastolic 84 mm[Hg] As hlee Lavinia blood pressure, systolic 120 mm[Hg] Vince angel Demetriusestefany pulse rate 95 /min Mary Edujacey oxygen saturation, oximetry 96 % Mary Kate respiratory rate E&M 18 /min Mary Demetriusykan weight E&M 197 [lb_av] Mary Demetriusykjacey Body Mass Index (Ratio) 28.12 kg/m2 Margarita Jarquin pulse rate 98 /min Farnaz Jarquin respiratory rate E&M 17 /min Farnaz Jarquin oxygen saturation, oximetry 98 % Farnaz Jarquin blood pressure, evans tolic, second observation 96 mm[Hg] Farnaz Jarquin blood pressure, syst olic, second observation 140 mm[Hg] Farnaz Jarquin blood pressure, diastolic 96 mm[Hg] Na noe Jarquin blood pressure, systolic 140 mm[Hg] Juani herson Jarquin weight E&M 187 [lb_av] Farnaz Jarquin [...] Deneen Westbrook blood pressure, diastolic 86 mm[Hg] milanase Saleh blood pressure, systolic 121 mm[Hg] Dolly Saleh pulse rate 86 /min Heidi Saleh oxygen saturation, oximetry 95 % Heidi Saleh respiratory rate E&M 16 /min Heidi Saleh weight E&M 202 [lb_av] Heidi Saleh height E&M 68.5 [in_i] Heidi Saleh blood pressure, diastolic 88 mm[Hg] Ch erese Saleh blood pressure, systolic 127 mm[Hg] Dolly Saleh pulse rate 85 /min Heidi Slaeh oxygen saturation, oximetry 99 % Heidi Saleh [...] Cristiane Fort blood pressure, diastolic 72 mm[Hg] Wade varnererjoon [facility] blood pressure, systolic 100 mm[Hg] Gaviota banner [facility] Fort pulse rate 105 /min Cristiane Sorto oxygen saturation, oximetry 93 % Cristiane Sorto respiratory rate E&M 17 /min Ish Sorto weight E&M 185 [lb_av] Cristiane Sorto blood pressure, diastolic 60 mm[Hg] Linda leal O'Aly blood pressure, systolic 86 mm[Hg] Gricelda linton O'Aly pulse rate 88 /min Lara O'Aly oxygen saturation, oximetry 93 % Lara O'Aly respiratory rate E&M 16 /min [facility] O'Aly weight E&M 185 [lb_av] [facility] ALL[facility] Allergy Name Onset Date Reaction Criticality [...] LinkLogic 3.5-5.2 sodium, serum 143 mmol/L LinkLogic 055-049 6635/03 /19 urea nitrogen/creatinine ratio, serum 45 LinkLogic [...] Not Estab. platelet count 201 X10E3/UL LinkLogic [phone]/03 /19 red blood cell distribution width 12.5 [...] 90 mL/min/{1.7 3_m2} LinkLogic >=60 Normal C, [place] [address] aspartate aminotransferase (SGOT), serum 34 1/L LinkLogic 10-45 Normal C, [place] [address] alanine aminotransferase (SGPT), serum 35 1/L LinkLogic 7-45 Normal C, [place] [address] Alkaline phosphatase 89 LinkLogic 40-130 Normal C, [place] [address] albumin, serum 4.3 g/dL LinkLogic 3.5-5.0 Normal C, [place] [address] protein, total, serum 7.1 g/dL LinkLogic 6.5-8.5 Normal C, [place] [address] bilirubin, serum, total 0.7 mg/dL LinkLogic 0.1-1.2 Normal C, [place] [address] calcium, serum 9.2 mg/dL LinkLogic 8.5-10.3 Normal C, [place] [address] blood glucose, random 74 mg/dL LinkLogic 70-199 Normal C, [place] [address] creatine, serum 0.76 mg/dL LinkLogic 0.60-1.10 Normal C, [place] [address] urea nitrogen, blood 12 mg/dL LinkLogic 6-25 Normal C, [place] [address] anion gap, serum 9 mmol/L LinkLogic 2-15 Normal C, [place] [address] carbon dioxide, venous blood 28 mmol/L LinkLogic 22-32 Normal C, [place] [address] chloride, serum 96 mmol/L LinkLogic 97-110 Low C, [place] [address] potassium, serum 3.8 MMOL/L LinkLogic 3.3-4.9 Normal C, [place] [address] sodium, serum 133 mmol/L LinkLogic 135-145 Low C, [place] [address] activated partial thromboplastin time (aPTT) 50 s LinkLogic 28-38 High C, [place] [address] international normalized ratio (INR) 3.50 LinkLogic 0.90-1.20 High C, [place] [address] prothrombin time (patient) 39.9 s LinkLogic 10.3-13.7 High C, [place] [address] Absolute Basophils 0.0 K/CUMM LinkLogic 0.0-0.1 Normal C, [place] [address] Absolute Monocytes 0.6 K/CUMM LinkLogic 0.2-0.8 Normal C, [place] [address] Absolute Lymphocytes 1.4 K/CUMM LinkLogic 0.8-3.3 Normal C, [address] [address] Absolute Neutrophils 4.7 K/CUMM LinkLogic 1.5-6.5 Normal C, [address] [address] nucleated red blood cells as percent of [...] LinkLogic 3.5-5.2 sodium, serum 142 mmol/L LinkLogic 246-246 3407/06 /14 urea nitrogen/creatinine ratio, serum 20 LinkLogic [...] Not Estab. platelet count 233 X10E3/UL LinkLogic [phone]/04 /22 red blood cell distribution width 13.1 [...] LinkLogic 3.5-5.2 sodium, serum 144 mmol/L LinkLogic 653-514 3546/04 /22 urea nitrogen/creatinine ratio, serum 17 LinkLogic [...] Not Estab. platelet count 252 X10E3/UL LinkLogic 078-058 1611/10 /27 red blood cell distribution width 13.4 [...] Not Estab. platelet count 217 X10E3/UL LinkLogic 677-342 9912/09 /24 red blood cell distribution width 12.9 [...] LinkLogic 3.5-5.2 sodium, serum 144 mmol/L LinkLogic 233-808 9185/06 /11 urea nitrogen/creatinine ratio, serum 17 LinkLogic [...] Not Estab. platelet count 224 X10E3/UL LinkLogic [phone]/06 /11 red blood cell distribution width 13.8 [...] LinkLogic 3.5-5.2 sodium, serum 142 mmol/L LinkLogic [phone]/05 /08 urea nitrogen/creatinine ratio, serum 22 LinkLogic [...] Not Estab. platelet count 225 X10E3/UL LinkLogic 365-136 4257/05 /08 red blood cell distribution width 13.7 [...] Not Estab. platelet count 235 X10E3/UL LinkLogic [phone]/04 /29 red blood cell distribution width 13.6 [...] Not Estab. platelet count 235 X10E3/UL LinkLogic [phone]/12 /04 red blood cell distribution width 14.3 [...] LinkLogic 3.5-5.2 sodium, serum 144 mmol/L LinkLogic 675-502 7751/05 /23 urea nitrogen/creatinine ratio, serum 20 LinkLogic - eGFR if 97 mL/min/{1.7 3_m2} LinkLogic >59 eGFR if not 84 mL/min/{1.7 3_m2} LinkLogic >59 creatinine, serum 0.80 mg/dL LinkLogic 0.57-1.00 urea nitrogen, blood 16 mg/dL LinkLogic 6-24 blood glucose, random 95 mg/dL LinkLogic 65-99 coagulation managed by Evelia Oseguera [facility] Evelia Oseguera international normalized ratio (INR) 1.2 [...] LinkLogic 3.5-5.2 sodium, serum 143 mmol/L LinkLogic 014-004 1577/02 /07 urea nitrogen/creatinine ratio, serum 18 LinkLogic - eGFR if 92 mL/min/{1.7 3_m2} LinkLogic >59 [...] Not Estab. platelet count 239 X10E3/UL LinkLogic [phone]/02 /07 red blood cell distribution width 13.9 [...] Status Instructions Dates Provider Indications Com ments Medrol (Ranulfo) 4 mg tablets,dose pack active Take per package instructions 11/01 Hugo Ordoñez MD doxycycline hyclate 100 mg capsule active 1 capsule twice a day 10/10 Hugo Ordoñez MD tramadol 50 mg tablet active 1 tablet every six hours for pain 10/10 Hugo Ordoñez MD celecoxib 200 mg capsule active SHILPI Rao [...] to skin once a week - 07/26 Oh Celestin DNP,FARM OPERATIONS MANAGER Medrol (Ranulfo) 4 mg tablets,dose pack completed 1 tablet once a day Take per package instructions 07/29 - 11/18 Leonie Hodges RN completed duloxetine 60 mg capsule,delayed release(DR/EC) active TAKE 1 CAPSULE (60 MG TOTAL) BY MOUTH NIGHTLY 08/07 Arlene Reyna MD metoprolol tartrate 50 mg tablet active TAKE 1 TABLET BY MOUTH TWICE A DAY 08/07 Leonie Heaton Dilaudid 2 mg tablet completed 1 tablet [...] in the am - 07/26 Oh Celestin DNP,FARM OPERATIONS MANAGER metoprolol tartrate 25 mg tablet completed Take [...] e a day 07/31 - 04/10 Lara Agrawal Lasix 20 mg tablet completed Take 1 [...] tablet, sublingual completed as needed 04/03 - 8 Va Perez #25, 5 days supply, Prescribed [...] POWDER completed TAKE DIRECTED - 02/08 Brianna Larry CYMBALTA 60 MG ORAL CAPSULE DELAYED RELEASE PARTICLES completed once daily - 02/08 Ghazala Collins NUCYNTA ER 150 MG ORAL TABLET EXTENDED RELEASE 12 HOUR completed one tablet twice daily - 01/25 Va Perez CYCLOBENZAPRINE HCL 10 MG ORAL TABLET completed one tablet twice daily - 01/07 Elana Everett COUMADIN 5 MG ORAL TABLET completed - 02/08 Nataly Emma AZELASTINE HCL 0.1 % NASAL SOLUTION completed TAKE DIRECTED - 04/11 Hugo Ordoñez MD LASIX 20 MG ORAL TABLET completed ONCE DAILY - 02/08 Brianna Juarez HYDROXYZINE HCL 25 MG ORAL TABLET completed 3 times daily - 01/07 Elana Everett NUCYNTA ER 150 MG ORAL TABLET EXTENDED RELEASE 12 HOUR completed 09/05 - 02/08 Mary Romoykan NUCYNTA 75 MG ORAL TABLET completed 1 [...] TABLET completed twice daily - 02/08 Brianna FLUDROCORTISONE ACETATE 0.1 MG ORAL TABLET completed 1 tablet twice daily 04/09 - 02/08 Deneen Westbrook PHENERGAN SOLUTION completed as directed - 02/08 Heidi Saleh NUVIGIL TABLET completed 1 tab daily - 02/08 Celine Álvarez MA SEROQUEL TABLET completed 1 tab daily - 02/08 Deneen Westbrook NEURONTIN 300 MG ORAL CAPSULE completed 2 aps three times daily - 10/19 Hedii Saleh MORPHINE SULFATE 15 MG ORAL TABLET completed as directed - 02/08 Deneen Westbrook TAPAN 60 MG ORAL CAPSULE EXTENDED RELEASE 24 HOUR completed 2 tabs twice daily - 02/08 Farnaz CROCKER GEL completed as directed - 08/04 Kendra Gordon SOCIAL HISTORY Date Observation Value Provider personal history of marijuana use no Hugo Ordoñez MD drug use no Hugo Ordoñez M D alcohol use no Hugo Ordoñez M D passive cigarette sm kelvin exposure no Hugo Ordoñez MD smoking status Never smoker Hugo Ordoñez MD personal history of marijuana use no Hugo Ordoñez MD drug use no Hugo Ordoñez M Vijaya alcohol use no Hugo Lilly passive cigarette sm kelvin exposure no Hugo Ordoñez MD smoking status Never smoker Hugo Ordoñez MD personal history of marijuana use no Hugo Ordoñez MD drug use no Hugo Lilly alcohol use no Hugo Ordoñez M Vijaya passive cigarette sm kelvin exposure no Hugo [...] Mario Souzaty smoking status Never smoker Mario Monroy personal history of marijuana use no Oh Celestin DNP,FARM OPERATIONS MANAGER drug use no Oh Celestin DN P,FARM OPERATIONS MANAGER alcohol use no Oh Celestin DN P,FARM OPERATIONS MANAGER passive cigarette sm kelvin exposure no Oh Celestin DNP,FARM OPERATIONS MANAGER smoking status Never smoker Oh Celestin DNP,FARM OPERATIONS MANAGER drug use none Hugo Ordoñez M D alcohol use no Hugo Ordoñez M D passive cigarette sm kelvin exposure no [...] Ordoñez M D alcohol use no Hugo Lilly passive cigarette sm kelvin exposure no Hugo Ordoñez MD smoking status Never smoker Hugo Ordoñez MD drug use none Hugo Lilly alcohol use no Hugo Lilly passive cigarette sm kelvin exposure no Hugo Ordoñez MD smoking status Never smoker Hugo Ordoñez MD number of grandchildren Hugo Ordoñez MD Eliana Nalluri PRODUCT GRADER drug use none Eliana Nalluri PRODUCT GRADER alcohol use no Eliana Nalluri PRODUCT GRADER passive cigarette sm kelvin exposure no Eliana Nalluri PRODUCT GRADER smoking status Never smoker Eliana Nallu ri PRODUCT GRADER drug use none Brenda Collins alcohol use no Brenda Collins passive cigarette sm kelvin exposure no Brenda Collins smoking status Never smoker Brenda Dennis [...] Dennis passive cigarette sm kelvin exposure no Rbenda Dennis smoking status Never smoker Brenda Dennis [...] e drinks per day no Corinne [place] passive cigarette sm kelvin exposure no Corinne [...] frequency, days per week yes Corinne [place] caffeine use, averag e drinks per day no Corinne [place] passive cigarette sm kelvin exposure no Corinne [place] smoking status Never smoker Corinne Ana s social history reviewed E&M revi ewed - no changes required Hugo Ordoñez MD social history E&M Marital Statu s: / L sharita alone E thnicity: Smoking History: P shahab has never smoked. Hugo Ordoñez MD social history reviewed E&M revi ewed - no changes required Hugo Ordoñez MD seatbelt usage 100 % Sophia [place] physical exercise, frequency, days per week yes Sophia [place] caffeine use, averag e drinks per day no Sophia [place] passive cigarette sm kelvin exposure no Sophia [place] smoking status [facility] E&M Marital Statu s: / L sharita alone E thnicity: Smoking History: P shahab has never smoked. Hugo Ordoñez MD social history reviewed E&M revi ewed - no changes required Hugo Ordoñez MD seatbelt usage 100 % Corinne Ana s physical exercise, frequency, days per week yes Corinne Travis caffeine use, averag e drinks per day no Corinne [place] passive cigarette sm kelvin exposure no Corinne [place] smoking status Never smoker Corinne Ana s [...] French smoking status Never smoker Denise bond seatbelt usage 100 % Va Perez physical exercise, frequency, days per week yes Va Perez caffeine use, averag e drinks per day no Va Perez passive cigarette sm kelvin exposure no Va Perez smoking status Never smoker Va Perez social history reviewed E&M revi ewed - no changes required Linda Scott NP seatbelt usage 100 % Kendra Navarro melissa physical exercise, frequency, days per week yes Kendra Mikejono caffeine use, averag e drinks per day no Kendra Mikejono passive cigarette sm kelvin exposure no Kendra Mikeledakodakfreddie smoking status Never smoker Kendra Navarro melissa social history E&M Marital Statu s: / [...] of grandchildren Jean Claude Lilly O JEfrem Streepy social history E&M Marital Statu s: / L sharita alone E thnicity: Smoking History: P shahab has never smoked. Jean Claude Calixto DO social history reviewed E&M revi ewed - no changes required Jean Claude Calixto DO seatbelt usage 100 % Lara O'Aly physical exercise, frequency, days per week yes Lara Freedman'Aly caffeine use, averag e drinks per day [...] History: Caroline gudino has never smoked. Yo Heller social history [...] Hugo Ordoñez MD seatbelt usage 100 % [facility] physical exercise, frequency, days per week yes [facility] caffeine use, averag e drinks per day no [facility] passive cigarette sm kelvin exposure no [facility] smoking status Never smoker [facility] social history E&M Marital Statu s: / L sharita alone E thnicity: Smoking History: P atlong has never smoked. Hugo Ordoñez MD social history reviewed E&M revi ewed - no changes required Hugo Ordoñez MD seatbelt usage 100 % [facility] physical exercise, frequency, days per week yes [facility] caffeine use, averag e drinks per day no [facility] passive cigarette sm kelvin exposure no [facility] smoking status Never smoker [facility] smoking status Never smoker Yo Shawanda griffith social history E&M Marital Statu s: / L sharita alone E thnicity: Smoking History: P atlong has never smoked. Yo Heller social history reviewed E&M revi ewed - no changes required Yo Heller seatbelt usage 100 % Va Arnold physical exercise, frequency, days per week yes Va Arnold caffeine use, averag e drinks per day no Va Chris passive cigarette sm kelvin exposure no Va Chris social history reviewed E&M revi ewed - no changes required Celestine Levy seatbelt usage 100 % Tonsha Hensley physical exercise, frequency, days per week yes Tonsha Hensley caffeine use, averag e drinks per day no Tonsha Hens[place] passive cigarette sm kelvin exposure no Tonsha Hensley smoking status [facility] reviewed E&M revi ewed - no changes required Celestine Levy social history reviewed E&M revi ewed - no changes required Celestine Levy social history E&M Marital Statu s: / L sharita alone E thnicity: Smoking History: P atient has never smoked. Hugo Ordoñez MD social history reviewed E&M revi ewed - no changes required Hugo Ordoñez MD seatbelt usage 100 % Tonsha Hensley physical exercise, frequency, days per week yes Tonsha [place] caffeine use, averag e drinks per day no Tonsha [place] passive cigarette sm kelvin exposure no Tonsha Hensley smoking status Never [facility]oker [facility] reviewed E&M revi ewed - no changes required Tab Taylor MD seatbelt usage 100 % [facility] physical exercise, frequency, days per week yes [facility], averag e drinks per day no Yenifer Aj passive cigarette sm kelvin exposure no Yenifer Aj smoking status Never smoker [facility] social history E&M Marital Statu s: / L sharita alone E thnicity: Smoking History: P atient has never smoked. Hugo Ordoñez MD social history reviewed E&M revi ewed - no changes required Hugo Ordoñez MD seatbelt usage 100 % [facility], frequency, days per week yes Tonsha [place] caffeine use, averag e drinks per day no Tonsha [place] passive cigarette sm kelvin exposure no Tonsha [place] smoking status Never [facility]oker [facility] social [facility] E&M Marital Statu s: / L sharita alone E thnicity: Smoking History: P atient has never smoked. Tab Taylor MD smoking status Never smoker Tab wilcox MD seatbelt usage 100 % Velma Guzman physical exercise, frequency, days per week yes Velma Rodriguez caffeine use, averag e drinks per day no Velma Rodriguez passive cigarette sm kelivn exposure no Velma Michael social history reviewed E&M revi ewed - [...] Joslyn Franco smoking status Never smoker Joslyn Hernandez yessica social history reviewed E&M revi ewed - no changes required Celestine Levy seatbelt usage 100 % [facility] physical exercise, frequency, days per week yes Sania Briana caffeine use, averag e drinks per day no Sania Briana passive cigarette sm kelvin exposure no Sania Briana smoking status Never smoker [facility] social history reviewed E&M revi ewed - no changes required Tab Taylor MD seatbelt usage 100 % [facility] physical exercise, frequency, days per week yes [facility] caffeine use, averag e drinks per day no [facility] passive cigarette sm kelvin exposure no Sania Block smoking status Never smoker [facility] seatbelt usage 100 % Velma Guzman physical [...] Sania Block smoking status Never smoker Sania borden social [...] no Chastity Jaime smoking status Never smoker Giselestity Hogu e smoking status Never smoker Celestine [...] shahab has never smoked. Tab Taylor MD seatbelt [...] History: Caroline gudino has never smoked. [facility] seatbelt usage 100 % Kendra torres physical exercise, frequency, days per week yes Kendra Gordon alcohol use, average drinks per day none Kendra Rashidjono alcohol use no Kendra Washingtonkatie duckworth caffeine use, averag e drinks per day no Kendratim Gordon drug use none Kendra Lulue gucci passive cigarette sm kelvin exposure no Kendra Lawsonfrdedie smoking status Never smoker Kendra Rashidvelvet torres social history E&M Marital Statu s: / L sharita alone E thnicity: Smoking History: Caroline gudino has never smoked. Hugo Ordoñez MD social history reviewed E&M revi ewed - no changes required Hugo Ordoñez MD seatbelt usage 100 % Ana suárez physical exercise, frequency, days per week yes Ana Sandoval alcohol use, average drinks per day none Ana Sandoval alcohol use no Ana Sandoval caffeine use, averag e drinks per day no Aan Sandoval drug use none Ana Sandoval passive cigarette sm kelvin exposure no Ana Sandoval smoking status Never smoker Ana suárez social history E&M Marital Statu s: / [...] none [facility] alcohol use no [facility] caffeine use, averag e drinks per day no [facility] drug use none [facility] passive cigarette sm kelvin exposure no [facility] Chris smoking status Never smoker [facility] social history reviewed E&M revi ewed - no changes required Rodo Berg MD number of grandchildren Rodo Perez social history reviewed E&M revi ewed [...] Larry passive cigarette sm kelvin exposure no Biranna Larry smoking status Never smoker Brianna Larry social history reviewed E&M revi ewed - no changes required Genaro Jane MD seatbelt usage 100 % Brainna Larry physical exercise, frequency, days per week [...] Ordoñez MD smoking status never smoker Heidi Peck jennifer social history reviewed E&M reviewed Hugo Ordoñez [...] use, averag e drinks per day no [facility] alcohol use, average drinks per day none [facility] smoking status Non-smoker [facility] MENTAL [...] Payer name Policy type / Coverage type Emelina red libertarian ID [place]IC[place] PART B Medicare [id number] ADVANCE DIRECTIVES Name Date DISCUSSED - NO DECISION MADE TREATMENT PLAN Date Name Performer [id number],S, Hugo Ramada n [place] [id number],S, Hugo Ramada n [place] [id number],S, Hugo Ramada n [place] [id number],S, Hugo Ramada n [place] [id number],S, Hugo Ramada n [place] [id number],S, Hugo Ramada n [place] [id number],S, Hugo Ramada n [place] [id number],B, Hugo Ramada n [place] [id number],S, Hugo Ramada n [place] [id number],S, Hugo Ramada n [place] [id number],S, Hugo Ramada n [place] [id number],B, Hugo Ramada n [place] [id number],S, Hugo Ramada n [place] [id number],B, Hugo Ramada n [place] [id number],S, Hugo Ramada n [place] [id number],S, Hugo Ramada n [place] [id number],B, Hugo Ramada n [place] [id number],S, Hugo Ramada n [place] [id number],S, Hugo Ramada n [place] [id number],S, Hugo Ramada n [place] [id number],S, Hugo Ramada n [place] [id number],S, Hugo Ramada n [place] [id number],S, Hugo Ramada n [place] [id number],S, Hugo Ramada n [place] [id number],S, Hugo Ramada n [place] [id number],S, Hugo Ramada n [place] [id number],S, Hugo Ramada n [place] [id number],S, Hugo Ramada n [place] [id number],S, Hugo Ramada n [place] [id number],S, Hugo Silverioada n [place] [id number],S, Hugo Silverioada n [place] [id number],S, Hugo Ramada n [place] [id number],S, Hugoshad Silverioada n [place] [id number],S, Hugo Ramada n [place] [id number],S, Hugo Ramada n [place] [id number],S, Hugo Ramada n [place] [id number],S, Hugo Ramada n [place] [id number],S, Hugo Ramada n [place] [id number],B,S teroids improved pain. Lab shows systemic inflammation. Hugo Silveriodebbie KS [id number],S, Hugo Ramada n [place] [id number],S, Hugo Henson kalani BRYANT [id number],S, Hugo Silverioalana uri[place] [id number],B, Hugoshad Silverioalana uri[place] [id number],S, Hugo Silverioalana [place] [id number],S, Hugo Silverioalana [place] [id number],B, Hugoshad Silverioalana uri[place] [id number],S, Hugo Silverioalana uri[place] [id number],S, Hugo Silverioalana uriarte [place] [id number],S, Hugo Henson kalani [place] [id number],S, Hugo Silverioalana uri[place] [id number],S, Hugo Silverioalana uri[place] [id number],B,R 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 Hugo Tiago BRYANT [id number],S, Hugo Henson kalani [place] [id number],S, Hugo Henson kal[place] [id number],S, Hugoshad Silverioalana uri[place] [id number],S, Hugoshad Silverioalana uri[place] [id number],S, Hugo Silverioalana [place] [id number],S, Hugoshad Silverioalana uri[place] [id number],B, Hugo Natividad [place] [id number],S, Hugoshad Silverioalana [place] [id number],B, Hugo Natividad [place] [id number],W,S eems pacer related. Will replace RV lead with a septal implant and try to remove old lead. Hugo Ordoñez MD [id number],S, Hugo uriarte MD [id number],B, Hugo uriarte MD [id number],S, Hugo uriarte MD CCM Malina Blood Take your medication s every [...] Hugo Ordoñez MD Cardiology Hugo Ordoñez MD Cardiology:11/16/24 H ad RA and Septal leads in wrong spot in header. This was fixed 10/21/24 and now she is doing extremely well. 10/05/24 S /P PPM. S/P AV madai ablation. [...] device functioning appropiately. No at/af burden. Oh Nguyendarnell DNP,FARM OPERATIONS MANAGER Cardiology:Amulet in position on MARYSOL in march. Of warfarin and plavix. Device check reveals no AT/AF burden from ppm. W ILL NEED TO BE ON ABX FOR SBE PROPHYLAXIS INDEFINITELY WITH AMLET DEVICE IN THE LAAO H PCN ALLERGY HAS PROCEDURE FOR BLADDER SLING DONE AT [facility] W/ JESSICA UROLOGIST O K TO CONTINUE ON ASPRIRIN C LINDAMYCIN DOSE IS 600MG 30-60MIN BEFORE PROCEDURE FOR IE PROPHYLAXIS Ohlady Celestin DNP,FARM OPERATIONS MANAGER Cardiology Hugo Ordoñez MD Cardiology Hugo Ordoñez [...] Cardiology Hugo Ordoñez MD Cardiology:On OAC Eliana Leahylur i PRODUCT GRADER Cardiology:Mild sob with exertio n Eliana Armondluri PRODUCT GRADER Cardiology:None Eliana Leahyluri SONIA Cardiology:EF 70% Her updated medication list for this problem includes: Aspirin 81 Mg Tablet,delayed Release (/ec) (Aspirin) ..... Take 1 tablet by mouth [...] after 3 tabs seek medical attention Eliana Leahyluri PRODUCT GRADER Cardiology: H er updated medication list for this problem includes: Rosuvastatin 40 Mg Tablet (Rosuvastatin) ..... Take 1 tablet by mouth once a day Eliana Armondluri PRODUCT GRADER Cardiology:AT episod e on 10/10/23 for 4m 30s, EGM appears t o show PAT. On warfarin for OAC Eliana Nalluri PRODUCT GRADER Cardiology:s/p PPM Eliana Boswell ri PRODUCT GRADER Cardiology:RA 91%, R V 100% b attery 60% Eliana Boswellri PRODUCT GRADER Cardiology: W as recently in the hospital c/o heaviness in her chest . Normal EKG, stress test and echo h ad on eepisode of chest pain since dischrged from hospital, relieved with nitro Eliana Boswellri PRODUCT GRADER Cardiology:Bp stable today Selene Boswellri PRODUCT GRADER Telehealth Lele Brown Telehealth Lele Brown Telehealth:complains [...] PPM if her symptoms fail to resolve. [id number] appears to be ST 120-130's, AsVP, 100% RV paced, Metoprolol increased to 50mg BID, much improved symptoms since these changes Linda Scott NP Electrophysiology Fo llow up : i nterrogation today 0% AF burden Linda Scott NP Electrophysiology Fo llow up :[id number], appears to be ST, 120-130's rate, AsVp, [...] 1/2 mins. total 131 episodes Lori Cummings PRODUCT GRADER Electrophysiology- N P:interrogation today: ST 120's. longeset [...] if her symptoms fail to resolve. Lori Zoila SCOTT Electrophysiology- N P:interrogation today 0% AF burden Lori Schwabjennifer SCOTT Electrophysiology- N P:interrogation today: ST 120's. [...] if her symptoms fail to resolve. Lori Zoila PRODUCT GRADER Electrophysiology: N ormal cath 04/16/2020 complicated by hematoma to right groin. Sheath induced radial artery spasm noted. H as been using Nitro. Jean Claude Nicholsondoc ALCANTAR Electrophysiology:Wo uld consider the addition of catapress [...] MD Electrophysiology:s/p AVN ablati on 12/2019. Yo Pina Electrophysiology:Un derwent AV node ablation 12/2019 with prior DC PPM implant 06/2019. R V pacing 100% W ill change UTR on device to 110 BPM, LRL to 50 BPM. I confirmed presence of complete heart block during reprogramming. Yo Heller Electrophysiology:No rmal cath complicated by hematoma to right groin. Sheath induced radial artery spasm noted. H as been using Nitro. Yo Pina Electrophysiology:Un derwent AV node ablation 12/2019 with prior DC PPM implant 06/2019. P resented to [facility] 03[facility]2020 and was told by [facility] she was having SVT . S [...] 03/2020 CHOL 195, Trig 213, HDL 37, QOB565. L ipoprotein 119.7 A polipoprotein B 114 Yo Heller Electrophysiology:Un derwent AV node ablation 12/2019 with prior DC PPM implant 06/2019. H ospitalized at [place] and was told by [facility] she was having SVT . S [...] Mode switch 160, [facility]. [facility]:s/ p AV node ablation 12/2019. Her [...] (Aspirin) ..... One tab by mouth daily [facility] Cardiology [facility] Cardiology: H er updated medication list for this problem includes: Warfarin Sodium 5 Mg Tablet (Warfarin sodium) ..... Take 1 tablet by mouth starting 7 days prior to procedure Aspirin Adult Low Dose 81 Mg Oral Tablet Delayed Release (Aspirin) ..... One tab by mouth daily [facility] Cardiology: H er updated medication list for this problem includes: Warfarin Sodium 5 Mg Tablet (Warfarin sodium) ..... Take 1 tablet by mouth starting 7 days prior to procedure Aspirin Adult Low Dose 81 Mg Oral Tablet Delayed Release (Aspirin) ..... One tab by mouth daily [facility] TeleHealth: H er updated medication list for this problem includes: Warfarin Sodium 5 Mg Oral Tablet (Warfarin sodium) ..... One tab by mouth starting 7 days prior to procedure Aspirin Adult Low Dose 81 Mg Oral Tablet Delayed Release (Aspirin) ..... One tab by mouth daily [facility] TeleHealth: H er updated medication list for this problem includes: Warfarin Sodium 5 Mg Oral Tablet (Warfarin sodium) ..... One tab by mouth starting 7 days prior to procedure Aspirin Adult Low Dose 81 Mg Oral Tablet Delayed Release (Aspirin) ..... One tab by mouth daily [facility] TeleHealth: H er updated medication list for this problem includes: Warfarin Sodium 5 Mg Oral Tablet (Warfarin sodium) ..... One tab by mouth starting 7 days prior to procedure Aspirin Adult Low Dose 81 Mg Oral Tablet Delayed Release (Aspirin) ..... One tab by mouth daily [facility] TeleHealth:Reschedul e AV node ablation with carto and anesthesia after December 23, No need for CT [facility] TeleHealth: H er updated medication list for this problem includes: Aspirin Adult Low Dose 81 Mg Oral Tablet Delayed Release (Aspirin) ..... One tab by mouth daily [facility] TeleHealth: H er updated medication list for this problem includes: Aspirin Adult Low Dose 81 Mg Oral Tablet Delayed Release (Aspirin) ..... One tab by mouth daily [facility] TeleHealth: H er updated medication list for this problem includes: Aspirin Adult Low Dose 81 Mg Oral Tablet Delayed Release (Aspirin) ..... One tab by mouth daily [facility] TeleHealth:No episod es reported for this session. I CM trend is stable. [facility] Cardiology Hugo Ordoñez MD Cardiology Hugo Ordoñez [...] Dr. Ordoñez to do PPM implant at [facility] for sinus node dysfunction. The following medications [...] (Aspirin) ..... One tab by mouth daily [facility] Electrophysiology [facility] Electrophysiology:Re mote Transmission: N o episodes or [...] Hugo Ordoñez MD Cardiology-seen with MD and PRODUCT GRADER Maxime Gamboa [facility] Cardiology-seen with MD and PRODUCT GRADER : none noted on ILR Dionne Gamboa [facility] Cardiology-seen with MD and PRODUCT GRADER :Pt remains symptomatic with tachycardia interfering with [...] One tab by mouth daily Dionne Gamboa [facility] Cardiology:well heal ing scar a vised pt to apply ice pack on incision site. [facility] Electrophysiology:IL R implantation O rders: E KG (CPT-76159) 9 9213 LTD. Complex (CPT-28757) 6 minute walk test (CPT-63916) Her updated medication list for this problem includes: Metoprolol Tartrate 25 Mg Oral Tablet (Metoprolol tartrate) ..... One tab. twice daily Aspirin Adult Low Dose 81 Mg Oral Tablet Delayed Release (Aspirin) ..... One tab by mouth daily Tab Taylor MD Electrophysiology: O rders: 9 9213 LTD. Complex (CPT-75959) 6 minute walk test (CPT-95381) L oop Rec Implant - [facility] (*) Her updated medication list for this problem includes: Metoprolol Tartrate 25 Mg Oral Tablet (Metoprolol tartrate) ..... One tab. twice daily Aspirin Adult Low Dose 81 Mg Oral Tablet Delayed Release (Aspirin) ..... One tab by mouth daily Tab Taylor MD Electrophysiology: O rders: 9 9213 LTD. Complex (CPT-09820) 6 minute walk test (CPT-73952) L oop Rec Implant - [facility] (*) Her updated medication list for this problem includes: Metoprolol Tartrate 25 Mg Oral Tablet (Metoprolol tartrate) ..... One tab. twice daily Aspirin Adult Low Dose 81 Mg Oral Tablet Delayed Release (Aspirin) ..... One tab by mouth daily Tab Taylor MD Electrophysiology:IL R implantation at [facility] with Dr. Tiago Ramirez ill evaluate ILR [...] a day. Orders: 9 9214 MOD Complex (CPT-14091) B ASIC METABOLIC PANEL W/EGFR (75768) D -DIMER, QUANTITATIVE (8659) D -DIMER, QUANTITATIVE (8659) M obile Cardiac Tele (CPT-80494) Celestine Levy Cardiology Tab castaneda MD Cardiology: [...] twice a day. Tab Taylor MD Electrophysiology [facility] Electrophysiology: H er updated medication list for this problem includes: Warfarin Sodium 5 Mg Oral Tablet (Warfarin sodium) ..... One tablet daily start 1 week before the procedure Adult Aspirin Ec Low Strength 81 Mg Oral Tablet Delayed Release (Aspirin) ..... Take one tab po once daily Metoprolol Tartrate 25 Mg Oral Tablet (Metoprolol tartrate) ..... One half tablet twice a day. [facility] Electrophysiology: H er updated medication list for this problem includes: Adult Aspirin Ec Low Strength 81 Mg Oral Tablet Delayed Release (Aspirin) ..... Take one tab po once daily Metoprolol Tartrate 25 Mg Oral Tablet (Metoprolol tartrate) ..... One half tablet twice a day. [facility] Electrophysiology [facility] Electrophysiology: nuclear stress test Summary 1 . Normal myocardial perfusion imaging after vasodilator stress with Regadenoson. 2 . Normal left ventricular systolic function with a calculated ejection fraction of 75%. 3 . No obvious significant scintigraphic evidence of myocardial ischemia or scar. [facility] Electrophysiology:SVT - S/P 09/03 AVNRT ablation. Tab [...] tablet twice a day. Orders: E KG (CPT-17884) 9 9215 HIGH Complex (CPT-59867) A BLATION w/ Anesthesia (*) M obile Cardiac Tele (CPT-50700) [facility] Electrophysiology Ne w Patient : O rders: E KG (CPT-01880) 9 9215 HIGH Complex (CPT-21566) A BLATION w/ Anesthesia (*) Her updated [...] Ordoñez MD Cardiology Hugo rOdoñez MD Cardiology Hugo Ordoñez MD Cardiology Hugo Ordoñez MD Cardiology Hugo Ordoñez MD Cardiology Hugo Ordoñez MD Cardiology Hugo Ordoñez MD Cardiology Hugo Ordoñez MD Cardiology Hugo Ordoñez MD Cardiology Hugo Ordoñez MD Cardiology Hugo Ordoñez MD Cardiology Hugo Ordoñez MD Cardiology:Doing well on jazmin Ordoñez MD Cardiology Hugo Ordoñez MD Cardiology Hugo Ordoñez MD Cardiology Hugo Ordoñez MD Cardiology Hugo Ramadan Cardiology Hugo Ramadan Cardiology Hugo Ramadan Cardiology Hugo Ramadan Cardiology Hugo Ramadan Cardiology Hugo Ramadan Cardiology Hugo Ramadan Cardiology Genaro Lilly Cardiology Genaro Wadepennie Lilly Cardiology Gnearo Lilly Cardiology Genaro Wadepennie Lilly Cardiology Genaro Wadepennie Lilly Cardiology Hugo Ramadan Cardiology Hugo Ramadan Cardiology Hugo Ramadan Cardiology Hugo Ramadan Cardiology Hugo Ramadan Cardiology Hugo Ramadan Cardiology Hugo Ramadan Cardiology Hugo Ramadan Cardiology Hugo Ramadan Cardiology:Has clot on IVC filte r. On coumadin Hugo Ramadakalani BRYANT F/U Hugo Ramadan F/U Hugo Ramadan F/U Hugo Ramadan F/U Hugo Ramadan follow up : O rders: E KG (CPT-63751) BP today: 140/96 Prior BP: 136/92 (02/28/2013) [...] ..... Three times daily Orders: E KG (CPT-66644) BP today: 121/86 Prior BP: 127/88 (10/20/2011) [...] MD : O rders: C omplete Echo (CPT-97438) S tress Test - Adenosine (63480) Hugo Ordoñez MD : O rders: C omplete Echo (CPT-57809) Hugo Ordoñez MD : O rders: S tress Test - Adenosine (01701) E vent Recorder (*) BP today: 86/60 Prior BP: / () Hugo Ordoñez MD Date Name EKG X-Ray, Chest 2 View X-Ray, Chest 2 [...] Ordoñez MD complete d EKG Jean Claude Doña Ana DO comple jaden EKG Jean Claude Doña Ana DO comple jaden EKG Jean Claude Doña Ana DO comple jaden EKG Hugo Ordoñez MD complete d EKG ulius Claudia BRYANT comp leted EKG Hugo Ordoñez MD complete d Schedule Followup Tab Taylor MD in 1 yea r completed EKG Tab Taylor MD comp leted each additional 20 minutes, up to 2 times Hugo Ordoñez MD completed EKG ulius Claudia BRYANT comp leted Protime Arpit Le MD complete d EKG Tab Taylor MD comp leted EKG Tab Taylor MD comp leted EKG Tab Taylor MD comp leted EKG Hugo Ordoñez MD complete d EKG Tab Taylor MD comp leted EKG Tab Taylor MD comp leted 6 minute walk test Saulius Kalvaitis MD completed EKG Tab Taylor MD comp [...] EKG Hugo Ordoñez MD complete d SNOMED-CT: 521479636535636 Current Medications Documented Hugo Ordoñez MD completed SNOMED-CT: 292489966679191 Current Medications Documented Hugo Ordoñez MD completed EKG Rodo Berg MD comp leted SNOMED-CT: 557275006767074 Current Medications Documented Rodo Berg MD completed EKG Rodo Berg MD comp leted SNOMED-CT: 132200796206604 Current Medications Documented Rodo Berg MD completed SNOMED-CT: 194603759971327 Current Medications Documented Hugo Ordoñez MD completed EKG Hugo Ordoñez MD complete d SNOMED-CT: 392761079594903 Current Medications Documented Hugo Ordoñez MD completed EKG Rodo Berg MD comp leted SNOMED-CT: 638666819568253 Current Medications Documented Rodo Berg MD completed SNOMED-CT: 001027043534050 Current Medications Documented Hugo Ordoñez MD completed Event Monitor Luis M Pagan completed Stress EKG Yonathan Bernard MD complet ed Regadenoson, 4 units Yonathan Bernard MD completed Cardiolite, 2 units Yonathan Bernard MD completed SPECT Images Yonathan Bernard MD compl eted SNOMED-CT: 102254816882645 Current Medications Documented Hugo Ordoñez MD completed Ambulatory BP Genaro Jane MD comp leted Ambulatory BP Genaro Jane MD comp leted EKG Genaro Jane MD complet ed SNOMED-CT: 046499288789340 Current Medications Documented Genaro Jane MD completed EKG Hugo Ordoñez MD complete d SNOMED-CT: 088553444993055 Current Medications Documented Hugo Ordoñez MD completed EKG Hugo Ordoñez MD complete d EKG Hugo Ordoñez MD complete d
--- OUTSIDE RECORDS SUMMARY | 2024-12-16 12:57 | XMS_ITS | Data Portability ---
Author Organization [facility] [employer], Main Office Address [address] [place] [address] Care Team Providers Care Department Store Manager Name Role Phone ANGEL DIETZ Primary Care Provider ANGEL DIETZ Referring Provider Assessment Encounter Date Assessment Date Assessment LastModified by Organization Details LastModified Time 04/20/2023 04/20/2023 This note is dictated and transcribed by [employer]. Install And Repair Technician variances may occur. Despite proofreading, typographical errors may occur. [email or web address] Not available 04/20/2023 12:45:53 04/27/2023 04/27/2023 This note is dictated and transcribed by [employer]. Install And Repair Technician variances may occur. Despite proofreading, typographical errors [...] By Organization Details Last Modified Time 04/20/2023 [id number] plantar warts: care instructions [email or web address] Not available 04/20/2023 12:46:05 Reason for Referral None Reported. Results Created Date Observation Date Name Description Value Unit Range Abnormal Flag Note LastModifiedBy Organization Detail LastModifiedTime 09/21/19 21 09/20/2020 pregn duglas test, urine ur preg negati ve TESTI NG PERFO RMED BY SURGI SIS SERVI BETHEL PERSO NNEL. Not Available [facility] [address] [place], [address], 09/20/2020 10:02:45 09/21/19 21 09/20/2020 pregn duglas test, urine lot no. [id number] Not Available [facility] [address] [place], [address], 09/20/2020 10:02:45 09/21/19 21 09/20/2020 pregn duglas test, urine pos QC positi ve Not Available [facility] [address] [place], [address], 09/20/2020 10:02:45 09/21/19 21 09/20/2020 pregn duglas test, urine neg QC negati ve Not Available [facility] [address] [place], [address], 09/20/2020 10:02:45 Result Notes None recorded. Problems Name Problem SNOMED Code Status Onset Date Resolution Date Notes Provider Name and Address Organization Details Recorded Time Dysmenorrh ea 246267454 Active Not Available [facility] 3 01:01:15 Lesion of vulva 451414564 Active Not Available [facility] 3 01:01:16 Menorrhagi a 584713994 Active Not Available [facility] 3 01:01:16 Vulvitis 14880105 Active Not Available [facility] 3 01:01:16 Plantar wart of left foot 8317236633859 9102 Active 2022 You Pierce DPM [address] [facility], [address], [place], [address] , [employer] [facility] 3 14:40:48 Blister of foot without infection 6799565 Active 2022 You Pierce DPM [address], [place], [address] , [employer] [facility] 3 10:36:11 Problem Notes None recorded. Procedures Surgical History Date Name Laterality Status Provider Name and Address Organization Details Recorded Time 023 Wound Care-Podiatry completed You Pierce DPM [address], [address], [place], [address], [employer] 04/27/2023 10:35:44 023 wart canthrone procedure completed You Pierce DPM [address], [address], [place], [address], [employer] 04/20/2023 12:44:54 023 Wart Treatment Canthrone completed You Pierce DPM [address], [address], [place], [address], [employer] 04/13/2023 14:42:30 021 TEXTURE ARTIST Surgery completed Not Available [facility] 09/17/2022 00:49:08 020 Date of Last Pap Smear completed Not Available [facility] 09/17/2022 00:48:57 019 Pacemaker completed Not Available [facility] 09/17/2022 00:49:08 019 Most Recent Mammogram completed Not Available [facility] 09/17/2022 00:48:58 017 Hernia Repair completed Not Available [facility] 09/17/2022 00:49:08 013 TEXTURE ARTIST Surgery completed Not Available [facility] 09/17/2022 00:49:08 989 TEXTURE ARTIST Surgery completed Not Available [facility] 09/17/2022 00:49:08 back fusion completed Not Available [facility] 09/17/2022 00:49:08 insertion of inferior vena caval filter completed Not Available [facility] 09/17/2022 00:49:08 neurostimulation of spinal cord tissue completed Not Available [facility] 09/17/2022 00:49:08 operation on heart completed Cherie Guan [employer] 04/13/2023 12:15:22 Imaging Results None recorded. Procedure Notes None recorded. Medical Equipment None Reported. Allergies Allergen ID Allergen Name Allergen Category Reaction Reaction Severity Criticality Documentation Date Start Date Code Code System Note Provider Name and Address Organization Details Recorded Time 1925 acetamino phen / hydrocodo ne medicatio n vomiting mild Not available 09/17/2022 48351 2 RxNorm Not Available [facility] 3 01:18:15 1927 Tylenol with Codeine medicatio n vomiting severe Not available 09/17/2022 31076 6 RxNorm Not Available [facility] 3 01:18:15 1928 acetamino phen / oxycodone medicatio n hives severe Not available 09/17/2022 64894 3 RxNorm Not Available [facility] 3 01:18:16 1929 Product containin g penicilli n (product) medicatio n hives severe Not available 09/17/2022 52985 8001 SNOMED Not Available [facility] 3 01:18:16 1930 meclizine medicatio n anaphylax is severe Not available 09/17/2022 6676 RxNorm aller gy previ ously marke d as life -thre ateni ng Not Available [facility] 3 01:18:16 1931 Inderal medicatio n rash severe Not available 09/17/2022 77879 0 RxNorm Not Available [facility] 3 01:18:16 1932 imipramin e Not available hives moderate Not available 09/17/2022 5691 RxNorm Not Available [facility] 3 01:18:16 1933 Dilaudid medicatio n other moderate Not available 09/17/2022 85806 3 RxNorm Not Available [facility] 3 01:18:16 1934 propoxyph giovanny hydrochlo ride medicatio n hives severe Not available 09/17/2022 03071 RxNorm Not Available [facility] 3 01:18:16 1935 Acetamino phen / Propoxyph giovanny medicatio n hives severe Not available 09/17/2022 98948 RxNorm Not Available [facility] 3 01:18:16 1936 Compazine medicatio n anaphylax is severe Not available 09/17/2022 87822 6 RxNorm PATRICIA [facility] 3 12:11:18 193 Ceftin medicatio n hives severe Not available 09/17/202220847 6 RxNorm Not Available [facility] 3 01:18:17 1938 Biaxin medicatio n hives severe Not available 09/17/202262933 9 RxNorm [facility] 12:11:04 1939 Benadryl medicatio n hives severe Not available 09/17/202218158 7 RxNorm Not Available [facility] 3 01:18:17 29483 carbamaze pine medicatio n Not available Not available Not available 04/13/20232001 RxNorm [facility] 12:12:00 93336 Medicinal product containin g cephalosp meir and acting as antibacte rial agent (product) medicatio n Not available Not available Not available 04/13/2023 69632 9009 SNOMED [facility] 3 12:12:08 08624 clarithro mycin medicatio n Not available Not available Not available 04/13/2023 50681 RxNorm [facility] 3 12:12:23 45828 hydromorp rosa maria medicatio n Not available Not available Not available 04/13/2023 3423 RxNorm [facility] 3 12:12:35 Medications Name Sig Start Date [...] 1 28.6 kg/m2 172.72 cm 96.5 [degF] 75095.3 7 g 120 mm[Hg] 78 mm[Hg] Not Available [employer] 3 00:52:32 Date Recorded Body height Body mass index (BMI) Body weight Heart rate Respiratory rate Oxygen saturation Oxygen saturation in Arterial blood by Pulse oximetry Systolic blood pressure Diastolic blood pressure Provider Name and Address Organization Details Last Updated DateTime 3 172.72 cm 28.7 kg/m2 30406.9 6 g 82 /min 14 /min 99 % 99 % 128 mm[Hg] 82 mm[Hg] Cherie GOMEZ [employer] 3 12:00:54 Date Recorded Body height Body mass index (BMI) Body weight Heart rate Respiratory rate Oxygen saturation Oxygen saturation in Arterial blood by Pulse oximetry Systolic blood pressure Diastolic blood pressure Provider Name and Address Organization Details Last Updated DateTime 3 172.72 cm 28.7 kg/m2 32930.9 6 g 70 /min 14 /min 98 % 98 % 102 mm[Hg] 66 mm[Hg] Cherie GOMEZ [employer] [facility] 3 12:31:41 Date Recorded Body height Body mass index (BMI) Body weight Heart rate Respiratory rate Oxygen saturation Oxygen saturation in Arterial blood by Pulse oximetry Systolic blood pressure Diastolic blood pressure Provider Name and Address Organization Details Last Updated DateTime 3 172.72 cm 28.7 kg/m2 25561.9 6 g 73 /min 14 /min 98 % 98 % 112 mm[Hg] 75 mm[Hg] Cherie Guan [employer] 3 09:23:27 Social History Question Answer Notes LastModified by [employer] ion Details LastModified Time Tobacco Smoking Status Never Smoker Not Available [facility] 09/17/2022 00:46:36 What Is Your Level Of Caffeine Consumption? None [id number] Information not available 09/17/2022 In The 14 Days Before Symptom Onset, Have You Had Close Contact With A Laboratory-confirm ed COVID-19 While That Case Was Ill? No [id number] Information not available 09/17/2022 In The 14 Days Before Symptom Onset, Have You Had Close Contact With A Person Who Is Under Investigation For COVID-19 While That Person Was Ill? No [id number] Information not available 09/17/2022 Which Illicit Or Recreational Drugs Have You Used? None [id number] Information not available 09/17/2022 What Was The Date Of Your Most Recent Tobacco Screening? 04/13/2023 Information not available 04/13/2023 Has Tobacco Cessation Counseling Been Provided? No Information not available 04/13/2023 Sex: Unknown Functional Status Question Answer Note LastModified by Organizat ion Details LastModified Time Do you use any illicit or recreational drugs? No Information not available 04/13/2023 Do you or have you ever used any other forms of tobacco or nicotine? No Information not available 04/13/2023 What is your level of alcohol consumption? None [id number] Information not available 09/17/2022 What is your exercise level? Occasional [id number] Information not available 09/17/2022 Mental Status None recorded. Family History Relationship Description Onset Age of this Age Resolved Age Notes LastModified by Organization Details LastModified Time Paternal Grandmother Malignant tumor of cervix [id number] Not available 09/17/2022 00:49:12 Medical History Condition Response USE OF BLOOD THINNERS Y DIZZINESS Y ALLERGIES/HAYFEVER Y HIGH CHOLESTEROL / HYPERLIPIDEMIA Y CARDIAC ARRHYTHMIA Y ANXIETY DISORDER Y BLOOD CLOTS Y ANEMIA/BLOOD DISORDER Y BOWEL PROBLEMS Y BACK / NECK PROBLEMS Y FEMALE PROBLEMS / INFECTIONS Y DEPRESSION (INCLUDING POST ) Y HERPES Y Gynecological History Statement/Question Response Abnormal Pap Y Date of LMP Date of Last Pap Smear 08/16/2019 Current Control Method Tubal Ligat ion Age at Menarche 13 Most Recent Mammogram 06/28/2019 Obstetrics History GPAL:G 0 P 0 0 0 0 Past Encounters Encounter ID Performer Location Encounter Start Date Encounter Closed Date Diagnosis/Indication Diagnosis SNOMED-CT Code Diagnosis ICD10 Code Diagnosis Note [id number] S_[facility] ic_[facility] _ATHENA_M IGRATION_ DEFAULT_1 _1 , 10/03/2020 00:00:00 10/03/2020 09:44:02 [id number] You Pierce DPM [facility] Podiatry [facility] [place] [address] [facility] [address] [place] [address] 04/13/2023 11:53:16 04/14/2023 11:39:07 Plantar wart of left foot 0433582055 4590823 B07.0 educated on treatment optionsSal icylic acid applied to the wart todaypatie nt advised to use salicylic acid over-the-c ounter daily until blistering occurs then discontinu e provide wound care to prevent infectionF ollow-up in 1 week [id number] You Pierce DPM [facility] Podiatry Husam Talley [address] [place] [address] 04/20/2023 12:25:47 04/20/2023 12:47:37 Plantar wart of left foot 7177510406 0737676 B07.0 educated on treatment optionsSal icylic acid 30% applied to the wart todaypatie nt advised to use salicylic acid over-the-c ounter daily until blistering occurs then discontinu e provide wound care to prevent infectionF ollow-up in 1 week [id number] You Pierce DPM [facility] Podiatry Husam Talley [address] [facility] [address] [place] [address] 04/27/2023 09:10:20 04/27/2023 10:38:12 Plantar wart of left foot 4075734316 9954316 B07.0 Discontinu e salicylic acidallow the area to healfollow -up 2 weeks Blister of foot without infection 3915658 S90.822A secondary to use of salicylic acid [...] Powers Member ID Guarantor Name 04/13/2023 1 [place] Naye S Tanner [id number] Naye S Tanner 04/13/2023 2 [place] [facility] Naye S Tanner [id number] Naye S Tanner 04/20/2023 1 [place] Naye S Tanner [id number] Naye S Tanner 04/20/2023 2 [place] [facility] Naye S Tanner [id number] Naye Nassar Tanner 04/27/2023 1 [place] Naye Cunninghamle [id number] Naye Nassar Tanner 04/27/2023 2 [place] [facility] Naye Cunninghamle [id number] Naye Hart Notes Date Note Type Note [...] complaints. You Pierce DPM [address], [place], [address], [employer] 04/13/2023 14:42:57 04/20/2023 text/html . Patient is [...] other complaints. You Pierce DPM [address], [address], [place], [address], [employer] 04/20/2023 12:46:20 04/27/2023 text/html . Patient is [...] complaints. You Pierce DPM [address], [place], [address], [employer] 04/27/2023 10:37:00 OBGyn Episode No OBEpisode recorded.
--- OUTSIDE RECORDS SUMMARY | 2024-12-16 12:58 | XMS_ITS | Patient Health Record ---
Author Organization [facility] Orthopedics [facility] Address [address] [place], [place] [address] Care Team Providers Care Stereotype Finisher Name Role Phone Jackson BRYANT, Tom Primary Care Provider [phone] Cecilia Nicole Unavailable [phone] ALLERGIES Allergen (clinical drug ingredient) Drug/Non Drug [...] osteoarthritis of right knee (M17.11) Active confirmed 140867900776277 Problem Closed nondisplaced fracture of acromial end of left clavicle, initial encounter (S42.035A) Active confirmed 4506877 Problem Closed nondisplaced fracture of acromial end of left clavicle with routine healing, subsequent encounter (S42.035D) Active confirmed 3364461 Problem Right hip pain (M25.551) Active confirmed Right hip pain (314042634554375) Problem Left hip pain (M25.552) Active confirmed Arthralgia of t he pelvic region and thigh (854942827) Problem Primary localized osteoarthritis of right knee (M17.11) Active confirmed Primary osteoarthritis (533266544) Problem Pes anserine bursitis (M70.50) Active confirmed 621353032 PLAN OF TREATMENT Pending Test Test Name Order Date X ray : Hip, left, 2 02/24/2018 X ray : Hip, right, 2 02/24/2018 X ray : Knee, right 3 views 11/30/2017 Insurance Providers Payer Name Payer Address Payer Phone Subscriber Number Group Number Insured Name Patient Relationship to Insured Coverage Start Date Coverage End Date Medicare Services [address] [address] [place] [address] [id number] Naye Hart Self - patient is the insured 0 Medicaid [address] [place] [address] [id number] Naye Hart Self - patient is the [...]
--- OUTSIDE RECORDS SUMMARY | 2024-12-16 12:58 | XMS_ITS | Clinical Summary ---
Author Organization [employer] [facility] Address [address] [place] [address] Care Team Providers Care Celebrity Chef Entrepreneur Media Personality Name Role Phone Tom Paz MD Primary Care Provider [phone] Allergies Active Allergy Reactions Criticality Noted Date [...] blisters Etanercept Swelling Low 12/09/2023 Embrel Gum Xjdsvy-Fnqxsl-Isfv-Alcoho l Rash Low 12/09/2023 Mastisol - blisters [...] Encounters Date Type Department Care Team Description 12/13/2024 External Device Data [facility] ABSTRACTION Provider, Abstract 12/07/2024 External Device Data [facility] ABSTRACTION Provider, Abstract 12/06/2024 External Device Data [facility] ABSTRACTION Provider, Abstract 10/18/2024 External Device Data [facility] ABSTRACTION Provider, [...] 9:03 AM CDT Height 170.2 cm (5' 7) 12/24/2023 9:03 AM CDT Body Mass Index 29.76 12/24/2023 9:03 AM CDT Plan of Treatment Health Maintenance Due Date Last Done Comments Pre-Diabetes and Diabetes Screening 1964 DTAP/TDAP/TD VACCINES (1 - Tdap) 1983 FIT-DNA Q 3 years 2009 FIT/FOBT Q 1 year 2009 Flex Sig/CT Colonography Q 5 years 2009 ZOSTER VACCINE (1 of 2) 2014 BREAST CANCER SCREENING 01/17/2023 01/18/20 22, 01/17/2022, 08/07/2020, Additional history exists INFLUENZA VACCINE [...] this topic Medical Devices Implanted Type Area Oil Inspector Device Identifier Shelf Expiration Date Model / Serial / Lot Tyrx Antibacterial Envelope Med [id number] - [id number] Implanted:Qty: 1 on 12/24/2023 at [facility] Mesh Left: Chest [employer]- CARD RHYTHM MGMT 10/01/2024 [id number] / / [id number] Neuro Stimulator Neuro Stimulator [employer] SC-1200 / / Description:leads: SC- Need lead numbers Dc Ppm Gen Implanted:Qty: 1 on 12/24/2023 by Burton Forbes MD at [facility] N/A: Chest Wall [id number] / [id number] 90 / Explanted Type Area Oil Inspector Device Identifier Shelf Expiration Date Model / Serial / Lot Dc Eluna 8 Ppm Gen Explanted:Qty: 1 on 12/24/2023 by Burton Forbes MD at [facility] Pacemaker Chest Wall [employer] ELUNA 8 KRISTY / [id number] / Description:Implant date: Per [employer] Rep - NOT MRI safe (extra cap lead -ABANDONED LEAD - NO MRI -lizandro 08/14/23 Insurance [address] [place] [address] MEDICARE PART A AND B [facility] [place] [id number] [place] [address] MEDICARE PART A AND B [address] [place] [address] RX [employer] RX Member Subscriber Plan / Payer (Ef fective 2023-Present) Name:Naye Hart Relation to Subscriber:Self Name:Naye Hart Subscriber ID:Not on file Payer ID:Not on file Group ID:[id number] Type:RX Commercial Address: [address] Advance Directives For more information, please contact: [phone] Documents on File Type Date Recorded Patient Control Operator Flow Coat Expl anation Advance Directive POA 12/24/2023 8:33 AM Ad valenzuela Directive POA * Full Code (Latest Code Status on File) Date Activated Date Inactivated Comments 12/24/2023 3:32 PM 12/25/2023 12:17 PM Care Teams Celebrity Chef Entrepreneur Media Personality Relationship Specialty Start Date End Date Tom Paz MD [address] [place] [address] PCP - General Family Practice 01/28/22
--- OUTSIDE RECORDS SUMMARY | 2024-12-16 12:58 | XMS_ITS | Encounter Summary ---
Author Organization [facility] Address [address] [place] [address] Phone Care Team Providers Care Contract Technical Writer Name Role Phone Tom Paz MD Primary Care Provider [phone] Tab Taylor MD Unavailable [phone] Favian Caceres MD Unavailable [phone] Encounter Details Date Type Department Care Team (Late st Contact Info) Description 11/25/2024 Results Follow-Up [facility] Gastroenterology [address] [place] [address] Medical Office [address], [address] [place] [address] Trey Arroyo MD [address] [place], [place] [id number] Surgical pathology Social History Tobacco Use Types Packs/Day Years Used Date Smoking Tobacco: Never Passive Smoke Exposure: Past Smokeless Tobacco: Never Alcohol Use Standard Drinks/Week Comments No 0 (1 standard drink = 0.6 oz pur e alcohol) [facility] Utilities Answer Date Recorded In the [...] often do you attend chur ch or catholic services? 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
--- OUTSIDE RECORDS SUMMARY | 2024-12-16 12:58 | XMS_ITS | Referral Summary ---
Author Organization [facility] Address [address] [place] [address] Care Team Providers Care Fur Trapper Name Role Phone Tom Paz MD Primary Care Provider [phone] Tab Taylor MD Unavailable [phone] Favian Caceres MD Unavailable [phone] Encounters Date Type Department Care Team Description 5 Telephone [facility] Gastroenterolog y [address] [facility] Advanced Medicine 12th [place] [address] [place] [address] Carlie Patricia Prior Auth 5 Orders Only [facility] [address] [facility] [address] [place] [address] Trey Arroyo MD 5 Results Follow-Up [facility] Endoscopy [address] [place] [address] Abdomen Pelvis W Contrast 5 7:04 AM CDT - 5 11:59 PM CDT Hospital Encounter [facility] [address] [place] [address] Trey Arroyo MD Abdominal pain; Nausea and vomiting, unspecified vomiting type Discharge Disposition: Discharge to home or self care 5 E-Visit [facility] [address] [place] [phone] Claudia Abdalla PA Ultrasound 5 Orders Only [facility] [address] [place] [phone] Claudia Abdalla PA 5 Orders Only [facility] Gastroenterolog y [address] [facility] 2nd Floor [address] [place] [phone] Trey Arroyo MD Abdominal pain (Primary Dx); Nausea and vomiting, unspecified vomiting type 5 Results Follow-Up [facility] Gastroenterolog y [address] [place] [address] Medical Office Building 4, [address] [place] [address] Trey Arroyo MD Surgical pathology 5 11:00 AM CDT - 5 11:30 AM CDT Surgery [facility] Endoscopy [address] [place] [address] Trey Arroyo MD ESOPHAGOGASTRODUODENOSCOPY BIOPSY 5 11:18 AM CDT Anesthesia Event [facility] Endoscopy [address] [place] [address] Pepe Muller MD Hughett, Elizabeth Ann, CRNA 5 9:53 AM CDT - 5 12:36 PM CDT Hospital Encounter [facility] Endoscopy [address] [place] [address] Trey Arroyo MD Abdominal pain; Nausea Discharge Disposition: Discharge to home or self care 5 Documentation [facility] Gastroenterolog [facility] [address] [facility] 2nd Floor [address] [place] [phone] Valerie [place] LPN GI pre procedure screening 5 Orders Only [facility] Gastroenterolog y [address] [facility] 2nd Floor [address] [place] [address] Trey Arroyo MD Abdominal pain (Primary Dx); Nausea 5 Results Follow-Up [facility] [address] [place] [phone] Claudia Abdalla PA Comprehensive metabolic panel, CBC with auto differential, CRP (acute phase), Erythrocyte sedimentation rate 5 2:34 PM CDT - 5 11:59 PM CDT Hospital Encounter [facility] [address] [address], [address] [place] [phone] Dougie Lord MD Right knee pain, unspecified chronicity (Primary Dx); Other chronic pain Discharge Disposition: Discharge to home or self care 5 10:45 AM CDT Office Visit [facility] [address] [place] [phone] Claudia Abdalla PA Seronegative rheumatoid arthritis (HCC) (Primary Dx); Encounter for long-term (current) use of high-risk medication 5 [facility] - [facility] ENT [address] [place] [address] [facility] 11th [place] [address] [place] [address] Helena Kamara, 5 7:30 AM CDT - 5 9:00 AM CDT Surgery [facility] Operating Room [id number] [place] [address] Hugo Ordoñez Jr., MD REPOSITION PERMANENT PACEMAKER LEAD 5 8:10 AM CDT Anesthesia Event [facility] Operating Room [id number] [place] [address] Saravanan Amador Jr., MD Vuong, Peter Thuan, MD 5 5:29 AM CDT - 5 11:22 AM CDT Hospital Encounter [facility] Operating Room [id number] [place] [address] Hugo Ordoñez Jr., MD Discharge Disposition: Discharge to home or self care 5 Orders Only [facility] Operating Room [address] [place] [address] Hugo Ordoñez Jr., MD Cardiac pacemaker in situ (Primary Dx); Shortness of breath; Chronic diastolic heart failure (HCC) 5 Orders Only [facility] Health Information Management [address] [place] [address] Scanning, Provider 5 Documentation Cardiology Sofiya Rosa NP 5 12:04 PM CDT - 5 11:59 PM CDT Hospital Encounter [facility] Radiology [address] [place] [address] Transient ischemic attack (TIA); Cerebrovascular disease, unspecified; Unspecified visual loss; Presence of cardiac pacemaker Discharge Disposition: Discharge to home or self care 5 11:40 AM CDT - 5 11:59 PM CDT Hospital Encounter [facility] Radiology [address] [place] [address] Encounter for imaging to screen for metal prior to magnetic resonance imaging (MRI) Discharge Disposition: Discharge to home or self care 5 11:41 AM CDT - 5 11:59 PM CDT Hospital Encounter [facility]iology [address] [place] [address] Discharge Disposition: Discharge to home or self [...] - blisters Etanercept Itching Low 02/24/2022 Gum [place] Unknown 05/12/2023 Gum Egxclh-Iehrmx-Fbzb-Alcoho l Blisters,Rash High 12/17/2021 Mastisol - blisters [...] by mouth every morning 03/14/20 24 Active cholecalciferol (VITAMIN D-3) 5,000 unit [...] for rash 15 g 09/02/19 25 Active baclofen (LIORESAL) 5 mg tablet Take 1 tablet (5 mg total) by mouth daily as needed for muscle spasms 10/01/19 25 Active oxyBUTYnin XL (DITROPAN-XL) 10 mg 24 hr tablet Take 1 tablet (10 mg total) by mouth every morning 10/18/19 25 Active traMADoL (ULTRAM) 50 mg tablet Take 1 tablet (50 mg total) by mouth every 6 (six) hours as needed for pain 10/11/19 25 Active methylPREDNISolon e (MEDROL DOSEPACK) 4 mg Dosepack TAKE 6 TABLETS ON DAY 1 DIRECTED ON PACKAGE AND DECREASE BY 1 TAB EACH DAY FOR A TOTAL OF 6 DAYS 11/02/19 25 Active sucralfate (CARAFATE) 1 gram tablet Take 1 tablet (1 g total) by mouth 2 (two) times a day 11/11/19 25 Active dexlansoprazole (DEXILANT) 60 mg capsule Take 1 capsule (60 mg total) by mouth daily 30 capsule 11 12/09/[address] (PROTONIX) 40 mg EC tablet Take 1 tablet (40 mg total) by mouth 2 (two) times a day 60 tablet 11 11/17/19 25 2024 Alysa valencia(Alt ernate therapy) Active Problems Problem Noted Date Diagnosed Date [...] QuantGold Assessment & Plan (07/28/2024 11:19 AM BLEACH LIQUOR MAKER): Monitor routine labs while on immunosuppressive medications. [...] QuantGold Assessment & Plan (09/22/2023 12:26 PM BLEACH LIQUOR MAKER): Monitor routine labs while on immunosuppressive medications. [...] QuantGold Assessment & Plan (09/11/2022 12:48 PM BLEACH LIQUOR MAKER): Monitor routine labs while on immunosuppressive medications. Recent 08/20 labs stable. 06/2020: Neg Hep B/C 03/2021: Neg QuantGold Assessment & Plan (07/01/2022 9:25 AM BLEACH LIQUOR MAKER): Monitor routine labs while on immunosuppressive medications. [...] QuantGold Assessment & Plan (08/19/2021 2:31 PM BLEACH LIQUOR MAKER): Monitor routine labs while on immunosuppressive medications. [...] Hospitalized for total of 8 days, at [facility] and then [facility]. Had CT brain/neck angio that [...] Hospitalized for total of 8 days, at [facility] and then [facility]. Had CT brain/neck angio that [...] 07/24/2020 Assessment & Plan (07/24/2020 12:34 PM BLEACH LIQUOR MAKER): Her greatest pain complaint at this time [...] 07/24/2020 Assessment & Plan (07/01/2022 2:12 PM BLEACH LIQUOR MAKER): Self weaned off Cymbalta 2 days ago [...] exercise. Assessment & Plan (08/27/2020 2:41 PM BLEACH LIQUOR MAKER): Fatigue with sensation of pain all over [...] exercise. Assessment & Plan (07/24/2020 12:36 PM BLEACH LIQUOR MAKER): Fatigue with sensation of pain all over [...] PT. Assessment & Plan (08/28/2020 12:26 PM BLEACH LIQUOR MAKER): Multifocal OA (hands and hips) per recent xrays. Continue Tylenol 500 mg qid. Continue PT. Assessment & Plan (07/24/2020 12:41 PM BLEACH LIQUOR MAKER): Multifocal OA (hands and hips) per recent [...] and osteopenia with snf use of steroids. Labs today. To return in 6 weeks for re-evaluation - this can be moved out to 3 months if joints remain stable. Assessment & Plan (07/28/2024 11:22 AM BLEACH LIQUOR MAKER): Off MTX (oral ulcers/hair thinning). 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 She was strongly encouraged [...] needed. Assessment & Plan (09/22/2023 12:32 PM BLEACH LIQUOR MAKER): A 09/2022 repeat left hand/wrist US demonstrated [...] needed. Assessment & Plan (09/11/2022 12:48 PM BLEACH LIQUOR MAKER): Continued 15mg MTX weekly and monthly Simponi [...] Chan. Assessment & Plan (08/06/2022 9:00 PM BLEACH LIQUOR MAKER): Has continued 15mg MTX weekly as well [...] we have no access to them through Goodreads. She already had an OV scheduled for 09/02 - will re-evaluate joints at that time and consider repeat hand US if synovitis is absent/minimal on exam but she is still noting pain -to evaluate for underlying inflammation. She may require change in biologic medication. Assessment & Plan (07/01/2022 2:09 PM BLEACH LIQUOR MAKER): CDAI 37, high Off Enbrel due to ISRs. Continued MTX and Simponi injections. Noted improvement after prednisone taper at last visit. Joints were feeling good until a few weeks ago when she returned from a trip to [place] an self weaned off Cymbalta. Now with [...] She is to follow up with her store warehouse associate soon due to low BP following her [...] Chan. Assessment & Plan (08/19/2021 9:00 PM BLEACH LIQUOR MAKER): CDAI 25. On 15mg MTX weekly but has only taken 3 Enbrel injections so far. Just completed a medrol dose pack from her store warehouse associate due to inflammation around her heart (pericarditis?). [...] incontinence. Has followed up with PCP and store warehouse associate - started Ubrelvy for JACKSON and store warehouse associate is to adjust her pacemaker on 05/23. [...] pen with her during her trip to [place] (leaves and returns around the ). A [...] needed. Assessment & Plan (08/28/2020 12:26 PM BLEACH LIQUOR MAKER): Our workup showed an JANNET 1:160 but [...] needed. Assessment & Plan (07/24/2020 12:33 PM BLEACH LIQUOR MAKER): 54yoF referred for evaluation due to +JANNET [...] reassess. Assessment & Plan (07/06/2020 4:49 PM BLEACH LIQUOR MAKER): 54yoF referred for evaluation due to +JANNET [...] (12/13/2019): Added automatically from request for surgery [id number] SVT (supraventricular tachycardia) 12/13/2019 Overview (12/13/2019): Added automatically from request for surgery [id number] A-fib 11/24/2019 Overview (11/24/2019): Added automatically from request for surgery [id number] Laryngopharyngeal reflux (LPR) 08/04/2018 Assessment & Plan (10/20/2018 12:26 PM CDT): No longer taking the omeprazole and ranitidine as prescribed. Patient is no longer experiencing any coughing, sinonasal or throat symptoms. Assessment & Plan (08/04/2018 1:17 PM BLEACH LIQUOR MAKER): Add omeprazole 40 mg Q morning 30 [...] resume. Assessment & Plan (08/04/2018 1:11 PM BLEACH LIQUOR MAKER): Patient's chronic cough is most likely secondary [...] reactive airway disease contributing to her cough. correction current use of anticoagulant therapy 1 08/28/2014 Deep vein thrombosis (DVT) 06/27/2015 Hyperthyroidism 08/31/2012 Chronic adrenal insufficiency 08/30/2012 Social History Tobacco Use Types Packs/Day Years Used Date Smoking Tobacco: Never Passive Smoke Exposure: Past Smokeless Tobacco: Never Tobacco Cessation:Counseling Given: Not Answered Alcohol Use Standard Drinks/Week Comments No 0 (1 standard drink = 0.6 oz pur e alcohol) [facility] Utilities Answer Date Recorded In the past 12 months has [employer], gas, oil, or water [employer] threatened to shut off services in your [...] often do you attend chur ch or gnosticism services? More than 4 times per year 02/11/2024 Do you belong to any clubs o r organizations such as mormonism groups, unions, fraternal or athletic groups, or [...] any time in the past 12 m [facility], were you homeless or living in [...] on file Legal Sex Female 12:21 AM BLEACH LIQUOR MAKER Gender Identity Not on file Sexual Orientation Not on file Last Filed Vital Signs Vital Sign Reading Time Taken Comments Blood Pressure 122/69 11/23/2024 12:00 PM CDT Pulse 68 11/23/2024 12:05 PM CDT Temperature 36.9 C (98.4 F) 11/23/2024 11:37 AM CDT Respiratory Rate 16 11/23/2024 12:05 PM CDT Oxygen Saturation 91% 11/23/2024 12:05 PM CDT Inhaled Oxygen Concentration - - Weight 85.7 kg (189 lb) 11/23/2024 10:45 AM CDT Height 172.7 cm (5' 8) 11/23/2024 10:45 AM CDT Body Mass Index 28.74 11/23/2024 10:45 AM CDT Plan of Treatment Not on file Goals [...] home safety. Medical Devices Implanted Type Area Coffee Host Device Identifier Shelf Expiration Date Model / Serial / Lot Ivc Filter- 7 Implanted:Qty: 1 on 06/09/2007 by Tam Fraser MD IVC Filter N/A: Vena Cava Lead-Spinal Cord Stimulator- 018 Implanted:2017 by Taran Ramirez MD (Quantity not on file) Lead Back [employer] SC-2158- [id number] / / Biotronik Ra Lead ([id number])- 019 Implanted:2018 (Quantity not on file) Lead Chest Biotronik SOLIA S [id number] / [id number] / Lead (Rv)-05/23/2021 Implanted:2020 (Quantity not on file) Lead Heart Biotronik SOLIA S 53 [id number] 177 / [id number] / Biotronik Paceomaker Amvia Edge -T-12/24/2023 Implanted:2023 (Quantity not on file) Pacemaker Chest Wall Biotronik [id number] / [id number] / Spinal Cord Stimulator- 018 Implanted:Qty: 1 on 08/20/2017 by Taran Ramirez MD Spinal Cord Stimulator N/A: Back [employer] SC-1200 / [id number] / Spinal Cord Stimulator Lead-08/20/2017 Implanted:2017 by Taran Ramirez MD (Quantity not on file) Spinal Cord Stimulator Back [employer] Neuro- [id number] / / Hardware Thoracic-L umbar Spine Loop Recorder Chest Wall [employer] System Closure Repair Femoral Artery Suture Mediated Perclose Prostyle 03341-26 - [id number] Implanted:Qty: 1 on 02/09/2024 by Morgan Roy MD at [facility] [employer] 11/16/2025 [id number] / / [id number] [employer] Percutaneous Transcatheter Amplatzer Amulet 18mm [id number] - [id number] Implanted:Qty: 1 on 02/09/2024 by Morgan Roy MD at [facility] 09/17/2027 9-[id number] / / [id number] [place] [employer] System Closure Repair Femoral Artery Suture Mediated Perclose Prostyle 61694-17 - [id number] Implanted:Qty: 1 on 02/09/2024 by Morgan Roy MD at [facility] 11/16/2025 [id number] / / [id number] [employer] Sling Urinary Incontinence Female Stress Short Desara Blue Sis-Ds01bs - [id number] Implanted:Qty: 1 on 06/28/2024 by Shankar Mak MD at [facility] N/A: Urethra [employer] 01/04/2027 SIS-DS01 BS / / [id number] Explanted Type Area Coffee Host Device Identifier Shelf Expiration Date Model / Serial / Lot Biotronik Rv Lead ([id number])-07/04 Implanted:Qty: 1 on 07/04/2019 Explanted:Qty: 1 Lead Chest Biotronik [id number] / / Description:This lead was re placed and left behind per patient on 05/23/21 Biotronik Pacemaker ([id number])-07/04 Implanted:Qty: 1 on 07/04/2019 Explanted:Qty: 1 on 12/24/2023 Pacemaker Left: Chest Biotronik ELUNA 8 KRISTY CARBAJAL / [id number] / [id number] Procedures Procedure Name Priority Date/Time Associated Diagnosis Comments CT ABDOMEN PELVIS W CONTRAST Schedule Routine, Read Routine (OP Routine) 12/08/2024 8:35 AM CDT Abdominal pain Nausea and vomiting, unspecified vomiting type SCAN - RADIOLOGY/IMAGING 025 3:20 PM CDT SURGICAL PATHOLOGY Routine 11/23/2024 11:28 AM CDT Abdominal pain Nausea EGD 11/23/2024 11:20 AM CDT ESOPHAGOGASTRODUODENOSCOPY BIOPSY 11/23/2024 11:19 AM CDT Abdominal pain Nausea ERYTHROCYTE SEDIMENTATION RATE Routine 0 11/09/2024 11:26 AM CDT Seronegative rheumatoid arthritis (HCC) Encounter for long-term (current) use of high-risk medication CRP (ACUTE PHASE) Routine 11/09/2024 11:26 AM CDT Seronegative rheumatoid arthritis (HCC) Encounter for long-term (current) use of high-risk medication CBC WITH AUTO DIFFERENTIAL Routine 11/09 11:26 AM CDT Seronegative rheumatoid arthritis (HCC) Encounter for long-term (current) use of high-risk medication COMPREHENSIVE METABOLIC PANEL Routine 11:26 AM CDT Seronegative rheumatoid arthritis (HCC) Encounter for long-term (current) use of high-risk medication RI AN ELECTIVE SUPRAGLOTTIC AIRWAY Routine 10/21/2024 8:39 AM CDT REPOSITION PERMANENT PACEMAK ER LEAD 10/21/2024 8:06 AM CDT Cardiac pacemaker in situ Shortness of breath Chronic diastolic heart failure ([facility]) ECG 12-LEAD STAT 10/21/2024 6:25 AM CDT SCAN - OTHER ORDERS 10/14/2024 MRI LUMBAR [...] Unspecified visual loss Presence of cardiac pacemaker COLONOSCOPY 08/02/2024 1:43 PM BLEACH LIQUOR MAKER HEPATITIS C ANTIBODY Routine 07/06/2020 2:58 PM BLEACH LIQUOR MAKER Polyarthralgia Encounter for screening for other viral diseases from Last 3 Months or Most Recently Relevant to Health Maintenance Results * CT Abdomen Pelvis W Contrast (12/08/2024 8:35 AM CDT) Anatomical Region Laterality Modality Body N/A Computed Tomogra phy 12/08/2024 9:04 AM CDT Impressions 12/08/2024 9:04 AM CDT [address]. [address] correlate for abdominal pain. Electronically signed by: Tho Bella M.D. Narrative 12/08/2024 9:04 AM CDT EXAMINATION: Computed tomography of the abdomen/pelvis with intravenous contrast HISTORY: Abdominal pain TECHNIQUE: Transaxial computed tomographic images of the abdomen/pelvis were obtained with intravenous contrast according to the standard protocol after the uneventful administration of 100 mL Opti-Ray 350 intravenous contrast. COMPARISON: 04/16/2020 FINDINGS: The lung bases are clear. There is a pacemaker device. The heart size is normal. No pericardial effusion. A subcentimeter hypoattenuating lesion within the dome the liver is unchanged compared to the prior examination. No new or enlarging liver lesions are appreciated. The portal and superior mesenteric veins are patent. No biliary ductal dilatation. The gallbladder is normal appearing. The pancreas is normal. No ductal dilatation or suspicious lesions. The adrenal glands are normal. Normal appearance of the spleen. No hydronephrosis involving either kidney. There are no suspicious renal lesions. No renal calculi. The bladder is normal appearing. There are a few phleboliths within the pelvis. The uterus and adnexa appear normal. There is colonic diverticulosis without findings of diverticulitis. The appendix is normal. There is thickening along the left paracolic gutter is nonspecific and may represent an area of fat necrosis. There is an inferior vena cava filter in place. No free fluid or gas. No abdominal or pelvic lymphadenopathy. There is a neurostimulator device in place. There are changes from spinal fusion. No suspicious lytic or blastic lesions. Procedure Note Tho Bella MD - 12/08/2024 EXAMINATION: Computed tomography of the abdomen/pelvis with intravenous contrast HISTORY: Abdominal pain TECHNIQUE: Transaxial computed tomographic images of the abdomen/pelvis were obtained with intravenous contrast according to the standard protocol after the uneventful administration of 100 mL Opti-Ray 350 intravenous contrast. COMPARISON: 04/16/2020 FINDINGS: The lung bases are clear. There is a pacemaker device. The heart size is normal. No pericardial effusion. A subcentimeter hypoattenuating lesion within the dome the liver is unchanged compared to the prior examination. No new or enlarging liver lesions are appreciated. The portal and superior mesenteric veins are patent. No biliary ductal dilatation. The gallbladder is normal appearing. The pancreas is normal. No ductal dilatation or suspicious lesions. The adrenal glands are normal. Normal appearance of the spleen. No hydronephrosis involving either kidney. There are no suspicious renal lesions. No renal calculi. The bladder is normal appearing. There are a few phleboliths within the pelvis. The uterus and adnexa appear normal. There is colonic diverticulosis without findings of diverticulitis. The appendix is normal. There is thickening along the left paracolic gutter is nonspecific and may represent an area of fat necrosis. There is an inferior vena cava filter in place. No free fluid or gas. No abdominal or pelvic lymphadenopathy. There is a neurostimulator device in place. There are changes from spinal fusion. No suspicious lytic or blastic lesions. IMPRESSION: 1. No CT correlate for abdominal pain. Electronically signed by: Tho Bella M.D. Trey Arroyo MD IMG CT PROCEDURES Fin al Result * SCAN - RADIOLOGY/IMAGING (12/05/2024 3:20 PM CDT) Anatomical Region Laterality Modality Other Claudia MONTES Edited Result - Final * Surgical pathology (11/23/2024 11:28 AM CDT) Tissue (Duodenum, Biopsy) 11/23/2024 11:28 AM CDT Tissue specimen (specimen) (Polyp(s), colon/colorectal, esophageal, gastric) 11/23/2024 11:30 AM CDT Tissue specimen (specimen) (Polyp(s), colon/colorectal, esophageal, gastric) 11/23/2024 11:31 AM CDT Narrative PATHOLOGY W - 11/24/2024 12:03 PM CDT EPIC results best viewed via link to PDF [facility] [place] [address] Note to Patients: This report may contain [...] NAYE CANTU Gender: F : 1965 (Age: 59) Address: [address] [place], [place] [address] Hospital #: [id number] Taken:11/23/2024 Received:11/23/2024 Reported: 11/24/2024 Patient Type: [facility] Client [facility] Service: Gastro Location: Physician(s): Trey Arroyo M.D. Tom Arango M.D. Diagnosis: A. Duodenum, biopsy - Normal duodenal mucosa with single mildly dilated villous lacteal - No significant lymphatic congestion B. Stomach, antrum, biopsy - Antral mucosa with focal intestinal metaplasia (complete type), otherwise with minimal chronic inflammation and mild reactive changes - No H.pylori organisms are identified by H&E examination - Negative for dysplasia C. Stomach, body, biopsy - Normal oxyntic mucosa - No H.pylori organisms are identified by H&E examination gp/11/24/2024 11:17 By this signature, I attest that the above diagnosis is based upon my personal examination of the slides(and/or other material indicated in the diagnosis). Stephon West M.D. Report Electronically Reviewed and Signed Out By Stephon West M.D. 11/24/2024 12:03:43 Shamika Smyth D.O. History: The patient is a 59-year-old woman with history of abdominal pain. Operative procedure: Esophagogastroduodenoscopy Specimen(s) Received: A: Duodenal biopsies B: Gastric antrum biopsies C: Gastric body biopsies Gross Description: Received in three formalin jars labeled with the patient's identifiers. A. Labeled duodenal biopsies are four yanes-pink irregular fragments of tissue that measure 1.2 x 0.5 x 0.2 cm aggregate. The specimen is entirely submitted. Labeled A1. Jar 0. B. Labeled gastric antrum biopsies are six yanes-white irregular fragments of tissue that measure 1.6 x 0.8 x 0.1 cm in aggregate. The specimen is entirely submitted. Labeled B1. Jar 0. C. Labeled gastric body biopsies are six yanes-brown irregular fragments of tissue that measure 1.2 x 0.7 x 0.1 cm in aggregate. The specimen is entirely submitted. Labeled C1. Jar 0. rxr/11/23/2024 14:21 PA(s): Roz Mtz MS, SIMON([facility])CM By this signature, I attest that the above diagnosis is based upon my personal examination of the slides(and/or other material). Addenda/Procedures Microscopic slide review and interpretation for this case was performed at [facility], Department of Surgical Pathology, [address] [facility] [id number], [place] [address] CLIA # [id number] The performance characteristics of some immunohistochemical stains, fluorescence in-situ hybridization tests and immunophenotyping by flow cytometry cited in this report (if any) were determined by the Surgical Pathology and Flow Cytometry Departments at [facility] as part of an ongoing it quality analyst program and in compliance with [...] Surgical Pathology and Flow Cytometry Departments of [facility]. It has not been cleared or approved by the U. S. Food and Drug Administration. IMAGES AND SCANNED DOCUMENTS, IF INCLUDED, ONLY VIEWABLE IN PDF VERSION OF REPORT us Trey Arroyo MD LAB PATHOLOGY ORDERAB LES Final Result PATHOLOGY [facility] [phone] * EGD (11/23/2024 11:20 AM CDT) Anatomical Region Laterality Modality Other Narrative Procedure Note Trey Arroyo MD - 11/23/2024 11:20 AM CDT ENDOSCOPY LAB Patient Name: Naye Cantu Procedure Date: 11/23/2024 11:20 AM Date of : 1965 Admit Type: Outpatient Age: 59 Gender: Female Attending MD: Trey Arroyo M.D. Room: [facility] ENDOSCOPY ROOM 03 Note Status: Finalized Procedure: Upper GI endoscopy Indications: Epigastric abdominal pain Providers: Trey Arroyo M.D. Referring MD: Tom Paz M.D. Medicines: Monitored Anesthesia Care Complications: No [...] was re-assessed for adequacy to receive sedatives. After obtaining informed consent, the endoscope was passed under direct vision. Throughout theprocedure, the patient's blood pressure, pulse, and oxygen saturations were monitored continuously. The [id number] was introduced through the mouth, and advanced to the second part of duodenum. Theupper GI endoscopy was accomplished without difficulty.The patient tolerated the procedure well. Findings: The examined esophagus was normal. Patchy mild inflammation characterized by erosions and erythema was found in the entire examined stomach. Biopsies were taken with a cold forceps for histology. Diffuse mild mucosal changes characterized by discoloration werefound in the entire duodenum. White fluid and mucosal staining. Probablyfrom sucralfate, vs lymphatic congestion. Biopsies were taken with a cold forceps for histology. Impression: - Normal esophagus. - Mild gastritis. Biopsied. - Mucosal changes in the duodenum. Suspect coating from sucralfate (taken last night). Rule outlymphatic congestion. Biopsied. Recommendation: - Await pathology results. - Continue present medications. - Return to my office as previously scheduled. - Contact Information: During normal business hours - Please call theNurse Coordinator: [phone] After hours, evening, nights, weekends and holidays- Please call the hospital kicking machine operator at and ask for the GI fellow circular sawyer stone. Attending Participation: I personally performed the entire procedure. Electronically signed by Trey Arroyo MD Trey Arroyo M.D. 11/23/2024 11:37:09 AM Number of Addenda: 0 Note Initiated On: 11/23/2024 11:20 AM us Trey Arroyo MD ENDOSCOPY PROCEDURES Final Result * (ABNORMAL) CBC with auto differential (11/09/2024 11:26 AM CDT) WBC 5.2 3.8 - 10.8 Thousand/u L [facility] RBC, POC 4.13 3.80 - 5.10 Million/uL [facility] Hgb 14.5 11.7 - 15.5 g/dL [facility] Hct 43.6 35.0 - 45.0 % [facility] MCV 105.6(H) 80.0 - 100.0 fL [facility] MCH 35.1(H) 27.0 - 33.0 pg [facility] MCHC 33.3 32.0 - 36.0 g/dL [facility] Comment: For adults, a slight decrease in the calculated MCHC value (in the range of 30 to 32 g/dL) is most likely not clinically significant; however, it should be interpreted with caution in correlation with other red cell parameters and the patient's clinical condition. Rdw 12.8 11.0 - 15.0 % [facility] Platelets 164 140 - 400 Thousand/u L [facility] MPV 9.2 7.5 - 12.5 fL [facility] Neutrophils, abs 2,491 1,500 - 7,800 cells/uL [facility] Lymphocytes, abs 2,148 850 - 3,900 cells/uL [facility] Monocyte abs 442 200 - 950 cells/uL [facility] Eosinophils, abs 99 15 - 500 cells/uL [facility] Basophils, abs 21 0 - 200 cells/uL [facility] Neutrophils 47.9 % [facility] Lymphocyte pct 41.3 % [facility] Monocytes 8.5 % [facility] Eosinophils 1.9 % [facility] Basophils 0.4 % [facility] Blood 11/09/2024 11:2 6 AM CDT 11/09/2024 11:26 AM CDT Claudia MONTES LAB BLOOD ORDER IDRIS Final Result Performing Organization Address City/[facility]/ZIP Co de Phone Number [facility] [address] [place] [address] * Erythrocyte sedimentation rate (11/09/2024 11:26 AM CDT) Erythrocyte sedimentation rate 6 < OR = 30 mm/h [facility] Blood 11/09/2024 11:2 6 AM CDT 11/09/2024 11:26 AM CDT Claudia MONTES LAB BLOOD ORDER IDRIS Final Result Performing Organization Address [facility] Co de Phone Number [facility] [address] [place] [address] * CRP (acute phase) (11/09/2024 11:26 AM CDT) C-RP <3.0 <8.0 mg/L [facility] Blood 11/09/2024 11:2 6 AM CDT 11/09/2024 11:26 AM CDT Claudia MONTES LAB BLOOD ORDER IDRIS Final Result Performing Organization Address City/[facility] Co de Phone Number [facility] [address] [place] [address] * (ABNORMAL) Comprehensive metabolic panel (11/09/2024 11:26 AM CDT) Glucose 69 65 - 99 mg/dL [facility] Comment: Fasting reference interval BUN 23 7 - 25 mg/dL [facility] Creatinine 0.87 0.50 - 1.05 mg/dL [facility] eGFR 76 > OR = 60 mL/min/1.7 3m2 [facility] BUN/creat ratio SEE NOTE: 6 - 22 (calc) [facility] Comment: Not Reported: BUN and Creatinine are within reference range. Sodium 143 135 - 146 mmol/L [facility] Potassium, pl 3.7 3.5 - 5.3 mmol/L [facility] Chloride 103 98 - 110 mmol/L [facility] CO2 33(H) 20 - 32 mmol/L [facility] Calcium 10.6(H) 8.6 - 10.4 mg/dL [facility] Protein, sr 7.6 6.1 - 8.1 g/dL [facility] Albumin 4.8 3.6 - 5.1 g/dL [facility] GLOBULIN 2.8 1.9 - 3.7 g/dL (calc) [facility] Alb/glob ratio 1.7 1.0 - 2.5 (calc) [facility] Bilirubin, total 0.7 0.2 - 1.2 mg/dL [facility] Alk phos 72 37 - 153 U/L [facility] AST 21 10 - 35 U/L [facility] ALT (SGPT) 21 6 - 29 U/L [facility] Blood 11/09/2024 11:2 6 AM CDT 11/09/2024 11:26 AM CDT us Claudia MONTES LAB BLOOD ORDER IDRIS Final Result [facility] [address] [address] * RI AN ELECTIVE SUPRAGLOTTIC AIRWAY (10/21/2024 8:39 AM CDT) Narrative Clarisa De Leon CRNA - 10/21/2024 8:39 AM CDT Clarisa De Leon CRNA 10/21/2024 8:41 AM Airway Patient location: OR Urgency: elective Date/time: 10/21/2024 8:29 AM Indications for airway management: anesthesia Difficult airway: no Staff: Placed by: ICT QUALITY ASSURANCE ENGINEER: Clarisa De Leon CRNA Emergent airway documentation: Risks and benefits discussed: yes Consent obtained: yes Consent given by: patient Airway prep: Preoxygenated: yes Patient position: sniffing Mask difficulty assessment: 2 - vent by mask + OA or adjuvant Spontaneous ventilation during airway: absent Sedation level during airway: GA Final airway details: Final airway type: supraglottic airway Final supraglottic airway: IGel SGA size: 3 Number of attempts: 1 Planned trial extubation: yes Additional comments: Teeth and lips in preop condition after LMA placement. us Saravanan Amador Jr., MD ANESTHESIA ORDER IDRIS Final Result * ECG 12 lead (10/21/2024 6:25 AM CDT) 10/21/2024 6:25 AM CDT Narrative [facility] - 10/21/2024 6:36 AM CDT Vent Rate: 75 bpm RR Interval: 798 msec RI Interval: 0 msec QRS Duration: 150 msec QT Interval: 452 msec QTC Interval: 480 msec P-R-T Radnor: 0 - 63 - -64 degrees IMPRESSION: ELECTRONIC VENTRICULAR PACEMAKER ABNORMAL RHYTHM ECG NO CHANGE FROM PREVIOUS TRACING NOTED Electronically Signed By: Taz Ortiz MD us Rodo Smyth MD ECG ORDERABLES Final Resul t [facility] * SCAN - OTHER ORDERS (10/14/2024) us [...] signed by: Trey Mcfarland D.O. us Tom Paz MD IMG XR PROCEDURES Final Resu lt * Colonoscopy (08/02/2024 1:43 PM BLEACH LIQUOR MAKER) Anatomical Region Laterality Modality Other Narrative Procedure Note Trey Arroyo MD - 08/02/2024 1:43 PM [facility] Patient Name: Naye Cnatu Procedure Date: 08/02/2024 1:43 PM Date of : 1965 Admit Type: Outpatient Age: 58 Gender: Female Attending MD: Trey Arroyo M.D. Room: [facility] ENDOSCOPY ROOM 8 Note Status: Finalized [...] The scope was passed under direct vision.The [id number] endoscope was introduced through the anus and advanced to the terminal ileum. The colonoscopy was performed without difficulty. The patient tolerated the procedure well. The qualityof the bowel preparation was evaluated using the BBPS (Morse Bowel Preparation Scale) with scores of:Right Colon [...] business hours - Please call theNurse Coordinator: [phone] After hours, evening, nights, weekends and holidays- Please call the hospital kicking machine operator at and ask for the GI fellow circular sawyer stone. Attending Participation: I was present and participated during the entire procedure, including non-patrick portions. Electronically signed by Trey Arroyo MD Trey Arroyo M.D. 08/02/2024 2:08:56 PM . Number of Addenda: 0 Note Initiated On: 08/02/2024 1:43 PM Trey Arroyo MD ENDOSCOPY PROCEDURES Final Result * Hepatitis C antibody (07/06/2020 2:58 PM BLEACH LIQUOR MAKER) Hep C Ab NON-REACTI VE NON-REACT GIA [facility] SIGNAL TO CUT-OFF 0.02 <1.00 [facility] Comment: HCV antibody was non-reactive. There is no laboratory evidence of HCV infection. In most cases, no further action is required. However, if recent HCV exposure is suspected, a test for HCV RNA (test code 53435) is suggested. For additional information please refer to http://education.FanChatter/faq/HVD24s7 (This link is being provided for informational/ educational purposes only.) Blood specimen (specimen) 07/06/2020 2:58 PM BLEACH LIQUOR MAKER 07/06/2020 3:00 PM BLEACH LIQUOR MAKER Narrative [facility] - 07/11/2020 9:33 PM BLEACH LIQUOR MAKER PATIENT UNABLE TO VOID; ADVISED TO RETURN FOR COLLECTION. Olga MONTES LAB MICROBIOLOGY - GENERA L ORDERABLES Final Result [facility] [address] [place] [address] from Last 3 Months or Most Recently Relevant to Health Maintenance Insurance , [facility] [address] [place] [address] MEDICARE [facility] UNIT [address] [place] [id number] MEDICARE [facility] UN[facility] [address] [place] [phone] MEDICARE [facility] UN[address] [place] [address] MED[address] [place] [address] MEDICARE IDPA Advance Directives For more information, please contact: [phone] * Full Code (Latest Code Status on File) Date Activated Date Inactivated Comments 11/23/2024 10:40 AM 11/23/2024 4:36 PM * Full Code Date Activated Date Inactivated Comments 08/02/2024 11:54 AM 08/02/2024 7:30 PM * Full Code Date Activated Date Inactivated Comments 02/09/2024 1:39 PM 02/10/2024 9:56 PM * Full Code Date Activated Date Inactivated Comments 10/30/2023 11:37 PM 11/03/2023 9:39 PM * Full Code Date Activated Date Inactivated Comments 02/24/2022 10:10 AM 02/24/2022 4:09 PM Care Teams Fur Trapper Relationship Specialty Start Date End Date Tom Paz MD PCP - General 09/09/16 Tab Taylor MD [address] [place] [address] Consulting Physician Cardiology 01/03/20 Favian Caceres MD [address] [facility] [address] Consulting Physician Rheumatology 08/28/23
--- OUTSIDE RECORDS SUMMARY | 2024-12-16 12:58 | XMS_ITS | Encounter Summary ---
Author Organization [facility] Address [address] [place] [address] Phone Care Team Providers Care Plant Utilities Engineer Name Role Phone Tom Paz MD Primary Care Provider + [phone] Tab Taylor MD Unavailable [phone] Faivan Caceres MD Unavailable [phone] Encounter Details Date Type Department Care Team (Late st Contact Info) Description 12/06/2024 E-Visit [facility] [address] [place] [address] Claudia Cristobal, SIMON [address] [place] [address] Ultrasound Social History Tobacco Use Types Packs/Day Years Used Date Smoking Tobacco: Never Passive Smoke Exposure: Past Smokeless Tobacco: Never Alcohol Use Standard Drinks/Week Comments No 0 (1 standard drink = 0.6 oz pur e alcohol) [facility] Utilities Answer Date Recorded In the past 12 months has [employer], gas, oil, or water [employer] threatened to shut off services in your [...] any clubs o r organizations such as mosque groups, unions, fraternal or athletic groups, or [...] any time in the past 12 m [facility], were you homeless or living [...] on file Legal Sex Female 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
--- OUTSIDE RECORDS SUMMARY | 2024-12-16 12:58 | XMS_ITS | Encounter Summary ---
Author Organization [facility] Healthcare Address [address] [place] [address] Care Team Providers Care Senior Process Analyst Name Role Phone Tom Paz MD Primary Care Provider [phone] Tab Taylor MD Unavailable [phone] Favian Caceres MD Unavailable [phone] Encounter Details Date Type Department Care Team (Late st Contact Info) Description 02/11/2024 Documentation [facility] Case Management [address] [place] [address] Gaviota Benz, RN Social History Tobacco Use Types Packs/Day Years Used Date Smoking Tobacco: Never Passive Smoke Exposure: Past Smokeless Tobacco: Never Alcohol Use Standard Drinks/Week Comments No 0 (1 standard drink = 0.6 oz pur e alcohol) [facility] Utilities Answer Date Recorded In the past 12 months has [employer], gas, oil, or water [employer] threatened to shut off services in your home? Yes 02/11/2024 Social Connection and Isolat ion Panel [NHANES] Answer Date Recorded In a typical week, how many times do you talk on the phone with family, friends, or neighbors? Once a week 02/11/2024 How often do you get togethe r with friends or relatives? Once a week 02/11/2024 How often do you attend [facility] or hindu services? More than 4 times per year 02/11/2024 Do you belong to any clubs o r organizations such as oriental orthodox groups, unions, fraternal or athletic groups, or [...] place to sleep or slept in a [place] (including now)? No 11/02/2023 Housing Stability Vital Sign Answer Thang e Recorded In the last 12 months, was t here a time when you were not able to pay the mortgage or rent on time? No 02/11/2024 In the past 12 months, how m any times have you moved where you were living? 0 02/11/2024 At any time in the past 12 m [facility], were you homeless or living in a [place] (including now)? No 02/11/2024 Personal Safety Answer Date Recorded Have you ever been in or are you currently in a harmful physical or emotional relationship or is someone making you feel afraid or unsafe? Denies 02/09/2024 Comments No Sex and Gender Information Value Date Recorded Sex Assigned at Not on file Legal Sex Female 12:21 AM POUND ATTENDANT Gender Identity Not on file Sexual Orientation [...] Medicare and IDPA Prescription Coverage: Yes Pharmacy: [facility]/pharmacy #[id number] [place], [place] - [address] [facility] [address] [facility] [address] [id number] [place], [place] [address] [facility] [address] [facility] - [place], [place] - [address] [facility] [address] [facility] [address] [place], [place] - [address] [facility] [address] [facility] [address] Primary Care Provider: Tom Paz MD Prior to Admission: Functional Status: Minimal assist with ADLs Primary Caregiver: Private caregiver Support System: Children, Friends/neighbors (Son: Porter Serrano [phone]/Friend: Federico [phone]) Home Care Services: Yes Type of Home Care Services: child protective services social worker (child protective services social worker 5 days per week, 5-6.25 hour [...] were you homeless or living in a [place] (including now)?: No (02/11/24 1634) Utilities: Yes (SW Consult), (02/11/241634) Social Connections: In a typical week, how many times do you talk on the phone with family, friends, or neighbors?: Once a week How often do you get together with friends or relatives?: Once a week How often do you attend oriental orthodox or hindu services?: More than 4 times per year Do you belong to any clubs or organizations such as oriental orthodox groups, unions, fraternal or athletic groups, or [...] reports needing assistance with ADLs. 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 2. Return patient to optimal level of self-care post discharge. 3. Vascular Physician will follow for Discharge Planning - interventions as needed 4. Anticipated level of care at discharge 5. Planned Discharge Disposition SONALI Brothers, RN supervisor slitting and shipping [phone] documented in this encounter Plan of Treatment [...] on filedocumented in this encounter Care Teams Senior Process Analyst Relationship Specialty Start Date End Date Tom Paz MD PCP - General 09/09/16 Tab Taylor MD [address] [place] [address] Consulting Physician Cardiology 01/03/20 Favian Caceres MD [address] [place] [address] Consulting Physician Rheumatology 08/28/23 documented as of this encounter
--- OUTSIDE RECORDS SUMMARY | 2024-12-16 12:58 | XMS_ITS | Continuity of Care Document ---
Author Organization [facility] [place] [facility] Address [address] [place] [address] Phone Care Team Providers Care Diesel Locomotive Engineer Name Role Phone Nayely OD OD, Denise [...] EST REFRACTION Medicare OFFICE/OUTPATIENT VISIT, EST REFRACTION [facility] OFFICE/OUTPATIENT VISIT, EST OFFICE/OUTPATIENT VISIT, EST REFRACTION [facility] OFFICE/OUTPATIENT VISIT, EST REFRACTION MEDICARE OFFICE/OUTPATIENT [...] OFFICE/OUTPA TIENT VISIT, EST [facility], [address], [place], [place], [id number], [place] tel:[phone] OPH CONSULT [facility] flash of light OS (chief complaint) Age-related nuclear cataract, bilateralTear film insufficiency of bilateral lacrimal glandsOther vitreous opacities, bilateral Aug-0 5 Derheimer OD Denise. [address] [facility], [address], [place], [place], [id number], [place]. tel:[phone] Referring Provider: Tom Sapp, [address], [place], [address]. tel:[phone] OFFICE/OUTPA TIENT VISIT, EST [facility], [address] [place] [address], [id number], [place] tel:[phone] OPH CONSULT [facility] Pain OS (chief complaint) Left eye painAge-relat ed nuclear cataract, bilateralOthe r vitreous opacities, bilateralTear film insufficiency of bilateral lacrimal glands Apr-0 4-202 4 Krishnasamy Anthony. [address], [address], [place], [place], [id number], [place]. tel:[phone] Referring Provider: Tom Sapp, [address], [place], [address]. tel:[phone] OFFICE/OUTPA TIENT VISIT, EST [facility], [address] [place] [address], [id number], [place] tel:[phone] OPH CONSULT [facility] blurry vision (chief complaint) Age-related nuclear cataract, bilateralTear film insufficiency of bilateral lacrimal glandsOther vitreous opacities, bilateralDipl opiaHypermetr opia, bilateral Oct-2 4-202 3 Krishnasamy Anthony. [address], [address], [place], [place], [id number], [place]. tel:[phone] Referring Provider: Tom Sapp, [address], [place], [address]. tel:[phone] OFFICE/OUTPA TIENT VISIT, EST [facility], [address] [place] [address], [id number], [place] tel:[phone] OPH CONSULT [facility] blurry VA (chief complaint) Tear film insufficiency of bilateral lacrimal glandsOther vitreous opacities, bilateralAge- related nuclear cataract, bilateralDipl opiaHypermetr opia, bilateral Mar-1 0-202 2 Krishnasamy Anthony. [address], [address], [place], [place], [id number], [place]. tel:[phone] Referring Provider: Tom Sapp, [address], [place], [address]. tel:[phone] OFFICE/OUTPA TIENT VISIT, EST [facility], [address] [place] [address], [id number], [place] tel:[phone] OPH CONSULT [facility] shingles (chief complaint) Herpes zoster without complicationT ear film insufficiency of bilateral lacrimal glands Apr- 1 Krishnasamy Anthony. [address], [address], [place], [place], [id number], [place]. tel:[phone] Referring Provider: Tom Sapp, [address], [place], [address]. tel:[phone] OFFICE/OUTPA TIENT VISIT, EST [facility], [address] [place] [address], [id number], [place] tel:[phone] OPH CONSULT [facility] blurry (chief complaint) DiplopiaAge-r elated nuclear cataract, bilateralTear film insufficiency of bilateral lacrimal glandsOther vitreous opacities, bilateralHype rmetropia, bilateral Nov- 9 Krishnasamy Anthony. [address], [address], [place], [place], [id number], [place]. tel:[phone] Referring Provider: Anthony Gutierrez, [address], [place], [address]. tel:[phone] OFFICE/OUTPA TIENT VISIT, EST [facility], [address] [place] [address], [id number], [place] tel:[phone] OPH CONSULT [facility] blurry vision (chief complaint) Tear film insufficiency of bilateral lacrimal glandsOther vitreous opacities, bilateralDipl opiaHypermetr opia of both eyes Oct-3 0- 8 Krishnasamy Anthony. [address], [address], [place], [place], [id number], [place]. tel:[phone] Referring Provider: Anthony Gutierrez, [address], [place], [address]. tel:[phone] OFFICE/OUTPA TIENT VISIT, EST [facility], [address] [place] [address], [id number], [place] tel:[phone] OPH CONSULT [facility] blurry vision (chief complaint) dry eyes (chief complaint) DiplopiaOther vitreous opacities, bilateralTear film insufficiency of bilateral lacrimal glandsHyperme tropia of both eyes Dec-2 7 7 Krishnasamy Anthony. [address], [address], [place], [place], [id number], [place]. tel:[phone] Referring Provider: Anthony Gutierrez, [address], [place], [address]. tel:[phone] OFFICE/OUTPA TIENT VISIT, EST [facility], [address] [place] [address], [id number], tel:[phone] OPH CONSULT [facility] blurry vision (chief complaint) Reflex sympathetic dystrophy, unspecifiedTe ar film insufficiency , unspecifiedHy permetropia of both eyesOther vitreous opacities, bilateralDipl opia Oct-0 5-201 6 Krishnasamy Anthony. [address], [address], [id number], [place]. tel:[phone] Referring Provider: Anthony Gutierrez, [address], [address]. tel:[phone] OFFICE/OUTPA TIENT VISIT, NEW [facility], [address] [place] [address], [id number], [place] tel:[phone] Oph Consult [facility] blurry vision (chief complaint) Hypermetropia Tear film insufficiency , unspecifiedOt her vitreous opacitiesDipl opiaReflex sympathetic dystrophy, unspecified Sep-2 8-201 5 Krishnasamy Anthony. [address], [address], [id number], [place]. tel:[phone] Referring Provider: Anthony Gutierrez, [address], [place], [address]. tel:[phone] OFFICE/OUTPA TIENT VISIT, EST [facility], [address] [place] [address], [place], [place], [id number], [place] tel:[phone] [facility] Office Tear film insufficiency , unspecifiedRe flex sympathetic dystrophy, unspecifiedOt her vitreous opacitiesHype rmetropiaDipl opia Feb- 4 Krishmargaret Anthony. [address], [address], [place], [place], [id number], [place]. tel:[phone] Referring Provider: Anthony Gutierrez, [address], [place], [address]. tel:[phone] OFFICE/OUTPA TIENT VISIT, EST [facility], [address] [place] [address], [place], [place], [id number], tel:[phone] [facility] Office Other vitreous opacitiesTear film insufficiency , unspecifiedDi plopiaHyperme tropia Mar- 3 Krishnasnina Anthony. [address], [address], [place], [place], [id number], [place]. tel:[phone] Referring Provider: Anthony Gutierrez, [address], [place], [address]. tel:[phone] OFFICE/OUTPA TIENT VISIT, EST [facility], [address] [place] [address], [id number], [place] tel:[phone] OPH CONSULT [facility] Tear film insufficiency , unspecifiedRe flex sympathetic dystrophy, unspecifiedDi plopiaHyperme tropia Sep- 3 Krishnasnina Anthony. [address], [address], [place], [place], [id number], [place]. tel:[phone] Referring Provider: Anthony Gutierrez [address], [place], [address]. tel:[phone] OFFICE/OUTPA TIENT VISIT, EST [facility], [address], [id number], tel:[phone] OPH CONSULT [facility] Tear film insufficiency , unspecifiedDi plopia 2 Brenda Cruz. [address], [address], [id number], . tel:[phone] Referring Provider: Anthony Gutierrez, [address], [place], [address]. tel:[phone] OFFICE/OUTPA TIENT VISIT, NEW [facility], [id number] [place] [address], [place], [place], [id number], tel:[phone] OPH CONSULT [facility] DiplopiaHeada cheHypermetro tierra 1 Brenda Cruz. [address], [address], [place], [place], [id number], . tel:[phone] Family History Family Member Type Diagnosis Age At Onset Son Problem (finding) Lazy eye Payers Payer name Insurance type Covered alliance party ID Authorjosea tirin(s) [place] [id number] [place] [id number] Social History Type Description Quantity Date Captured [...] D&N. Pt saw Dr Nai Sotelo at [facility] for prism. Pt did not update [...] Related to Diplo tierra Impression/Plan Related to Diplo tierra Impression/Plan Related to Other vitreous opacities, bilateral Impression/Plan Related to Tear film insufficiency of bilateral lacrimal glands Impression/Plan Related to Hyper metropia of both eyes Impression/Plan - Al l signs and risks [...] to Hypermetropia of both eyes Impression/Plan - Up dated Mrx with PrismRTO 1 yr Complete Exam with SK Related to Diplopia RTO 1 year with SK Related to [...] +1.75+0.75x 080. Patient will see Smita Richardson (licensed nuclear operator) @ [facility] for prisms/glasses. Related to Headaches Reflex [...] +1.75+0.75x 082. Patient will see Smita Richardson (licensed nuclear operator) @ [facility] 12/24/2010 for motility exam and measurements [...]
--- OUTSIDE RECORDS SUMMARY | 2024-12-16 12:58 | XMS_ITS | Encounter Summary ---
Author Organization [facility] Address [address] [place] [address] Care Team Providers Care Dry Color Mixer Name Role Phone Tom Paz MD Primary Care Provider [phone] Tab Taylor MD Unavailable Favian Caceres MD Unavailable [phone] Encounter Details Date Type Department Care Team (Late st Contact Info) Description 12/08/2024 Results Follow-Up [facility] Endoscopy [id number] [place] [address] Trey Arroyo MD [address] [place], [place] [id number] CT Abdomen Pelvis W Contrast Social History Tobacco Use Types Packs/Day Years Used Date Smoking Tobacco: Never Passive Smoke Exposure: Past Smokeless Tobacco: Never Alcohol Use Standard Drinks/Week Comments No 0 (1 standard drink = 0.6 oz pur e alcohol) [facility] Utilities Answer Date Recorded In the past 12 months has [employer], gas, oil, or water [employer] threatened to shut off services in your [...] on file 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
--- OUTSIDE RECORDS SUMMARY | 2024-12-16 12:58 | XMS_ITS | Clinical Summary ---
Author Organization [facility] Address [address] [place] [address] Care Team Providers Care Diesel Engine Mechanic Name Role Phone Tom Paz MD Primary Care Provider [phone] Tab Taylor MD Unavailable Favian Caceres MD Unavailable [phone] Allergies Active Allergy Reactions Criticality Noted Date [...] - blisters Etanercept Itching Low 02/24/2022 Gum [place] Unknown 05/12/2023 Gum Jgdakx-Lhwppe-Zstb-Alcoho l Blisters,Rash High 12/17/2021 Mastisol - blisters [...] every 8 (eight) hours as needed 07/07/20 Active golimumab (SIMPONI SUBQ)Indications: ist of the [...] mg total) by mouth every morning 10/18/19 Active traMADoL (ULTRAM) 50 mg tablet Take 1 tablet (50 mg total) by mouth every 6 (six) hours as needed for pain 10/11/19 25 Active methylPREDNISolon e (MEDROL DOSEPACK) 4 mg Dosepack TAKE 6 TABLETS ON DAY 1 DIRECTED ON PACKAGE AND DECREASE BY 1 TAB EACH DAY FOR A TOTAL OF 6 DAYS 11/02/19 Active sucralfate (CARAFATE) 1 gram tablet Take 1 tablet (1 g total) by mouth 2 (two) times a day 11/11/19 Active dexlansoprazole (DEXILANT) 60 mg capsule Take 1 capsule (60 mg total) by mouth daily 30 capsule 12/09/[address] (PROTONIX) 40 mg EC tablet Take 1 tablet (40 mg total) by mouth 2 (two) times a day 60 tablet 11/17/192024 Disconti nued(Alt ernate therapy) Active Problems Problem Noted Date [...] QuantGold Assessment & Plan (07/28/2024 11:19 AM CABLE MAKER): Monitor routine labs while on immunosuppressive [...] QuantGold Assessment & Plan (09/22/2023 12:26 PM CABLE MAKER): Monitor routine labs while on immunosuppressive [...] QuantGold Assessment & Plan (09/11/2022 12:48 PM CABLE MAKER): Monitor routine labs while on immunosuppressive medications. Recent 08/20 labs stable. 06/2020: Neg Hep B/C 03/2021: Neg QuantGold Assessment & Plan (07/01/2022 9:25 AM CABLE MAKER): Monitor routine labs while on immunosuppressive [...] QuantGold Assessment & Plan (08/19/2021 2:31 PM CABLE MAKER): Monitor routine labs while on immunosuppressive [...] Hospitalized for total of 8 days, at [facility] and then [facility]. Had CT brain/neck angio that [...] Hospitalized for total of 8 days, at [facility] and then [facility]. Had CT brain/neck angio that [...] 07/24/2020 Assessment & Plan (07/24/2020 12:34 PM CABLE MAKER): Her greatest pain complaint at this [...] 07/24/2020 Assessment & Plan (07/01/2022 2:12 PM CABLE MAKER): Self weaned off Cymbalta 2 days [...] exercise. Assessment & Plan (08/27/2020 2:41 PM CABLE MAKER): Fatigue with sensation of pain all [...] exercise. Assessment & Plan (07/24/2020 12:36 PM CABLE MAKER): Fatigue with sensation of pain all [...] PT. Assessment & Plan (08/28/2020 12:26 PM CABLE MAKER): Multifocal OA (hands and hips) per recent xrays. Continue Tylenol 500 mg qid. Continue PT. Assessment & Plan (07/24/2020 12:41 PM CABLE MAKER): Multifocal OA (hands and hips) per [...] increase blood glucose, glaucoma and osteopenia with terminal gauger supervisor use of steroids. Labs today. To return in 6 weeks for re-evaluation - this can be moved out to 3 months if joints remain stable. Assessment & Plan (07/28/2024 11:22 AM CABLE MAKER): Off MTX (oral ulcers/hair thinning). Remains [...] increase blood glucose, glaucoma and osteopenia with terminal gauger supervisor use of steroids. She was strongly encouraged [...] needed. Assessment & Plan (09/22/2023 12:32 PM CABLE MAKER): A 09/2022 repeat left hand/wrist US [...] needed. Assessment & Plan (09/11/2022 12:48 PM CABLE MAKER): Continued 15mg MTX weekly and monthly [...] Chan. Assessment & Plan (08/06/2022 9:00 PM CABLE MAKER): Has continued 15mg MTX weekly as [...] we have no access to them through [employer]. She already had an OV scheduled for 09/02 - will re-evaluate joints at that time and consider repeat hand US if synovitis is absent/minimal on exam but she is still noting pain -to evaluate for underlying inflammation. She may require change in biologic medication. Assessment & Plan (07/01/2022 2:09 PM CABLE MAKER): CDAI 37, high Off Enbrel due [...] She is to follow up with her event marketing specialist soon due to low BP following her [...] increase blood glucose, glaucoma and osteopenia with mcfp use of steroids. Continue 15mg MTX weekly [...] Chan. Assessment & Plan (08/19/2021 9:00 PM CABLE MAKER): CDAI 25. On 15mg MTX weekly but has only taken 3 Enbrel injections so far. Just completed a medrol dose pack from her event marketing specialist due to inflammation around her heart (pericarditis?). [...] incontinence. Has followed up with PCP and event marketing specialist - started Ubrelvy for JACKSON and event marketing specialist is to adjust her pacemaker on 05/23. [...] the ). A letter was provided for [facility] to allow Humira to be brought as a carry on. She may call [place] to schedule injection with a nurse ambassador [...] needed. Assessment & Plan (08/28/2020 12:26 PM CABLE MAKER): Our workup showed an JANNET 1:160 [...] needed. Assessment & Plan (07/24/2020 12:33 PM CABLE MAKER): 54yoF referred for evaluation due to [...] reassess. Assessment & Plan (07/06/2020 4:49 PM CABLE MAKER): 54yoF referred for evaluation due to [...] (12/13/2019): Added automatically from request for surgery [id number] SVT (supraventricular tachycardia) 12/13/2019 Overview (12/13/2019): Added automatically from request for surgery [id number] A-fib 11/24/2019 Overview (11/24/2019): Added automatically from request for surgery [id number] Laryngopharyngeal reflux (LPR) 08/04/2018 Assessment & Plan (10/20/2018 12:26 PM CDT): No longer taking the omeprazole and ranitidine as prescribed. Patient is no longer experiencing any coughing, sinonasal or throat symptoms. Assessment & Plan (08/04/2018 1:17 PM CABLE MAKER): Add omeprazole 40 mg Q morning [...] resume. Assessment & Plan (08/04/2018 1:11 PM CABLE MAKER): Patient's chronic cough is most likely [...] reactive airway disease contributing to her cough. long term acute care registered nurse current use of anticoagulant therapy 1 08/28/2014 Deep vein thrombosis (DVT) 06/27/2015 Hyperthyroidism 08/31/2012 Chronic adrenal insufficiency 08/30/2012 Encounters Date Type Department Care Team Description 5 7:04 AM CDT - 5 11:59 PM CDT Hospital Encounter [facility] [address] [place] [address] Trey Arroyo MD Abdominal pain; Nausea and vomiting, unspecified vomiting type Discharge Disposition: Discharge to home or self care 5 Telephone [facility] [address] [facility] 12th [place] [address] [place] [address] Carlie Patricia Prior Auth 5 Orders Only [facility] [address] [place] [address] Trey Arroyo MD 5 Results Follow-Up [facility] [address] [place] [address] Abdomen Pelvis W Contrast 5 E-Visit [facility] [address] [place] [phone] NoreenClaudia Miranda PA Ultrasound 5 Orders Only [address] [address] Claudia Abdalla PA 5 Orders Only [facility] [address] [facility] 2nd Floor [address] [place] [address] Trey Arroyo MD Abdominal pain (Primary Dx); Nausea and vomiting, unspecified vomiting type 5 Results Follow-Up [facility] [address] [place] [address] Medical Office Building [address], [address] [place] [address] Trey Arroyo MD Surgical pathology 5 11:18 AM CDT Anesthesia Event [facility] [address] [place] [address] Pepe Muller MD Hughett, Elizabeth Ann, CRNA 5 11:00 AM CDT - 5 11:30 AM CDT Surgery [facility] [address] [place] [address] Trey Arroyo MD ESOPHAGOGASTRODUODENOSCOPY BIOPSY 5 9:53 AM CDT - 5 12:36 PM CDT Hospital Encounter [facility] [address] [place] [address] Trey Arroyo MD Abdominal pain; Nausea Discharge Disposition: Discharge to home or self care 5 Documentation [facility] [address] [facility] 2nd Floor [address] [place] [address] Valerie Washington LPN GI pre procedure screening 5 Orders Only [facility] [address] [facility] 2nd Floor [address] [place] [address] Trey Arroyo MD Abdominal pain (Primary Dx); Nausea 5 Results Follow-Up [facility] [address] [place] [phone] Claudia Abdalla PA Comprehensive metabolic panel, CBC with auto differential, CRP (acute phase), Erythrocyte sedimentation rate 5 2:34 PM CDT - 5 11:59 PM CDT Hospital Encounter [facility] [address] [facility] [address], [address] [place] [phone] Dougie Lord MD Right knee pain, unspecified chronicity (Primary Dx); Other chronic pain Discharge Disposition: Discharge to home or self care 5 10:45 AM CDT Office Visit [facility] [address] [place] [phone] Claudia Abdalla PA Seronegative rheumatoid arthritis (HCC) (Primary Dx); Encounter for long-term (current) use of high-risk medication 5 Telephone [facility] ([facility]) - [facility] [address] [facility] 11th [place] [address] [place] [phone] Helena Kamara MS 5 8:10 AM CDT Anesthesia Event [facility] Operating Room [address] [place] [address] Saravanan Amador Jr., MD Vuong, Peter Thuan, MD 5 7:30 AM CDT - 5 9:00 AM CDT Surgery [facility] Operating Room [address] [place] [address] Hugo Ordoñez Jr., MD REPOSITION PERMANENT PACEMAKER LEAD 5 5:29 AM CDT - 5 11:22 AM CDT Hospital Encounter [facility] Operating Room [address] [place] [address] Hugo Ordoñez Jr., MD Discharge Disposition: Discharge to home or self care 5 Orders Only [facility] Operating Room [address] [place] [address] Hugo Ordoñez Jr., MD Cardiac pacemaker in situ (Primary Dx); Shortness of breath; Chronic diastolic heart failure (HCC) 5 Orders Only [facility] [address] [place] [address] Scanning, Provider 5 12:04 PM CDT - 5 11:59 PM CDT Hospital Encounter [facility] [address] [place] [address] Transient ischemic attack (TIA); Cerebrovascular disease, unspecified; Unspecified visual loss; Presence of cardiac pacemaker Discharge Disposition: Discharge to home or self care 5 11:41 AM CDT - 5 11:59 PM CDT Hospital Encounter [facility] [address] [place] [address] Discharge Disposition: Discharge to home or self care 5 11:40 AM CDT - 5 11:59 PM CDT Hospital Encounter [facility] [address] [place] [address] Encounter for imaging to screen for metal prior to magnetic resonance imaging (MRI) Discharge Disposition: Discharge to home or self care 5 Documentation Cardiology Sofiya Rosa NP from Last 3 Months Surgical History Surgery [...] 01/23/2024 INSERT / REPLACE / REMOVE PACEMAKER COLONOSCOPY UPPER GASTROINTESTINAL ENDOSCOPY Medical History Medical History Date Comments Hx [...] ischemic attack) Osteoporosis 2011 Stroke (HCC) TIA no residuals Autoimmune disease 2009 Anemia CHF (congestive heart failure) (HCC) Gastric reflux Migraines Hypercholesteremia Rheumatoid arthritis (HCC) Allergic rhinitis Blood clot in vein 2006 and 2014 Inappropriate sinus tachycardia Pacemaker Presence of Amulet left atri al appendage closure device Joint pain Delayed emergence from general anesthesia slower to wake up PONV (postoperative nausea and vomiting) Hypertension Cardiac pacemaker in situ Shortness of breath Chronic diastolic heart failure (HCC) Osteoarthritis Chronic constipation Chronic diarrhea Family History Medical History Relation Name Comments [...] drink = 0.6 oz pur e alcohol) [employer] Answer Date Recorded In the past 12 months has [employer], gas, oil, or water [employer] threatened to shut off services in your home? Yes 02/11/2024 Social Connection and Isolat ion Panel [NHANES] Answer Date Recorded In a typical week, how many times do you talk on the phone with family, friends, or neighbors? Once a week 02/11/2024 How often do you get togethe r with friends or relatives? Once a week 02/11/2024 How often do you attend [facility] or confucianist services? More than 4 times per year 02/11/2024 Do you belong to any clubs o r organizations such as hindu groups, unions, fraternal or athletic groups, or [...] place to sleep or slept in a care home (including now)? No 11/02/2023 Housing Stability [...] were you homeless or living in a care home (including now)? No 02/11/2024 Personal Safety Answer Date Recorded Have you ever been in or are you currently in a harmful physical or emotional relationship or is someone making you feel afraid or unsafe? Denies 11/23/2024 Comments No Sex and Gender Information Value Date Recorded Sex Assigned at Not on file Legal Sex Female 12:21 AM CABLE MAKER Gender Identity Not on file Sexual [...] 11/23/2024 10:45 AM CDT Plan of Treatment Health Maintenance [...] home safety. Medical Devices Implanted Type Area Inspector Of Dredging Device Identifier Shelf Expiration Date Model / Serial / Lot Ivc Filter- 7 Implanted:Qty: 1 on 06/09/2007 by Tam Fraser MD IVC Filter N/A: Vena Cava Lead-Spinal Cord Stimulator- 018 Implanted:2017 by Taran Ramirez MD (Quantity not on file) Lead Back [employer] SC-2158- 50 / / Biotronik Ra Lead ([id number])- 019 Implanted:2018 (Quantity not on file) Lead Chest Biotronik SOLIA S 45 [id number] 176 / [id number] / Lead (Rv)-05/23/2021 Implanted:2020 (Quantity not on file) Lead Heart Biot[employer]ik SOLIA S 53 377 177 / [id number] / Biotronik Paceomaker Ariana Kaur-12/24/2023 Implanted:2023 (Quantity not on file) Pacemaker Chest Wall Biotronik [id number] / [id number] / Spinal Cord Stimulator- 018 Implanted:Qty: 1 on 08/20/2017 by Taran Ramirez MD Spinal Cord Stimulator N/A: Back [employer] SC-1200 / [id number] / Spinal Cord Stimulator Lead-08/20/2017 Implanted:2017 by Taran Ramirez MD (Quantity not on file) Spinal Cord Stimulator Back [employer] Neuro- [id number] / / Hardware Thoracic-L umbar Spine Loop Recorder Chest Wall Chris Vascular System Closure Repair Femoral Artery Suture Mediated Perclose Prostyle 58011-94 - [id number] Implanted:Qty: 1 on 02/09/2024 by Morgan Roy MD at [facility] Vascular 11/16/2025 23682-81 / / [id number] [employer] [place] Percutaneous Transcatheter Amplatzer Amulet 18mm [id number] - [id number] Implanted:Qty: 1 on 02/09/2024 by Morgan Roy MD at [facility] 09/17/2027 9-[id number] / / [id number] [employer] [place] Vascular System Closure Repair Femoral Artery Suture Mediated Perclose Prostyle 36387-16 - [id number] Implanted:Qty: 1 on 02/09/2024 by Morgan Roy MD at [facility] 11/16/2025 [id number] / / [id number] [employer] Sling Urinary Incontinence Female Stress Short Desara Blue Sis-Ds01bs - [id number] Implanted:Qty: 1 on 06/28/2024 by Shankar Mak MD at [facility] N/A: Urethra [employer] 01/04/2027 SIS-DS01 BS / / [id number] Explanted Type Area Inspector Of Dredging Device Identifier Shelf Expiration Date Model / Serial / Lot Biotronik Rv Lead ([id number])-07/04 Implanted:Qty: 1 on 07/04/2019 Explanted:Qty: 1 Lead Chest Biotronik [id number] / / Description:This lead was re placed and left behind per patient on 05/23/21 Biotronik Pacemaker ([id number])-07/04 Implanted:Qty: 1 on 07/04/2019 Explanted:Qty: 1 on 12/24/2023 Pacemaker Left: Chest Biotronik ELUNA 8 KRISTY CARBAJAL / [id number] / [id number] Procedures Procedure Name Priority Date/Time Associated Diagnosis [...] for long-term (current) use of high-risk medication OR AN ELECTIVE SUPRAGLOTTIC AIRWAY Routine 10/21/2024 8:39 AM CDT REPOSITION PERMANENT PACEMAK ER LEAD 10/21/2024 8:06 AM CDT Cardiac pacemaker in situ Shortness of breath Chronic diastolic heart failure (HCC) ECG 12-LEAD STAT 10/21/2024 6:25 AM CDT [...] of cardiac pacemaker COLONOSCOPY 08/02/2024 1:43 PM CABLE MAKER HEPATITIS C ANTIBODY Routine 07/06/2020 2:58 PM CABLE MAKER Polyarthralgia Encounter for screening for other [...] gastric) 11/23/2024 11:31 AM CDT Narrative PATHOLOGY [facility] - 11/24/2024 12:03 PM CDT EPIC results best viewed via link to PDF [facility] [place] [address] Note to Patients: This report may contain [...] Gender: F : 1965 (Age: 59) Address: [address] [place], [place] [address] [facility] #: [id number] Taken:11/23/2024 Received:11/23/2024 Reported: 11/24/2024 Patient Type: [facility] EP SAME [facility] Service: Gastro Location: Physician(s): Pb Steward M.D. Diagnosis: A. Duodenum, biopsy - Normal [...] H.pylori organisms are identified by H&E examination 11/24/2024 11:17 By this signature, I attest that [...] is entirely submitted. Labeled C1. Jar 0. [facility]/23/2024 14:21 PA(s): Roz Mtz MS, PA([facility])CM By this signature, I attest that the above diagnosis is based upon my personal examination of the slides(and/or other material). Addenda/Procedures Microscopic slide review and interpretation for this case was performed at [facility], Department of Surgical Pathology, [address] [facility] [id number], [place] [address] CLIA # [id number] The performance characteristics of some immunohistochemical stains, fluorescence in-situ hybridization tests and immunophenotyping by flow cytometry cited in this report (if any) were determined by the Surgical Pathology and Flow Cytometry Departments at [facility] as part of an ongoing quality control inspector heading program and in compliance with federally mandated [...] Surgical Pathology and Flow Cytometry Departments of [facility]. It has not been cleared or approved by the U. S. Food and Drug Administration. IMAGES AND SCANNED DOCUMENTS, IF INCLUDED, ONLY VIEWABLE IN PDF VERSION OF REPORT Trey Arroyo MD LAB PATHOLOGY ORDERAB LES Final Result PATHOLOGY [facility] [phone] * EGD (11/23/2024 11:20 AM CDT) Anatomical Region Laterality Modality Other Narrative Procedure Note Trey Arroyo MD - 11/23/2024 11:20 AM CDT ENDOSCOPY LAB Patient Name: Naye Cantu Procedure Date: 11/23/2024 11:20 AM Date of : 1965 Admit Type: Outpatient Age: 59 Gender: Female Attending MD: Trey Arroyo M.D. Room: [facility] 03 Note Status: Finalized Procedure: [...] and oxygen saturations were monitored continuously. The [id number] was introduced through the mouth, and advanced [...] business hours - Please call theNurse Coordinator: [phone] After hours, evening, nights, weekends and holidays- Please call the hospital bone process operator at and ask for the GI fellow drone operator. Attending Participation: I personally performed the entire procedure. Electronically signed by Trey Arroyo MD Trey Arroyo M.D. 11/23/2024 11:37:09 AM Number of Addenda: 0 Note Initiated On: 11/23/2024 11:20 AM Trey Arroyo MD ENDOSCOPY PROCEDURES Final Result [...] ORDER IDRIS Final Result Performing Organization Address City/[facility] Co de Phone Number [facility] [address] [place] [address] * Erythrocyte sedimentation rate (11/09/2024 11:26 AM CDT) Pathologist [facility] Erythrocyte sedimentation rate 6 < OR = 30 mm/h [facility] Blood 11/09/2024 11:2 6 AM CDT 11/09/2024 11:26 AM CDT Claudia MONTES LAB BLOOD ORDER IDRIS Final Result Performing Organization Address City/[facility] de Phone Number [facility] [address] [place] [address] * CRP (acute phase) (11/09/2024 11:26 AM CDT) Pathologist [facility] C-RP <3.0 <8.0 mg/L [facility] Blood 11/09/2024 11:2 6 AM CDT 11/09/2024 11:26 AM CDT us Claudia MONTES LAB BLOOD ORDER IDRIS Final Result [facility] [address] [address] [address] * (ABNORMAL) Comprehensive metabolic panel (11/09/2024 11:26 AM CDT) Glucose 69 65 - 99 mg/dL [facility] Comment: Fasting reference interval BUN 23 7 - 25 mg/dL [facility] Creatinine 0.87 0.50 - 1.05 mg/dL [facility] eGFR 76 > OR = 60 mL/min/1.7 3m2 [facility] BUN/creat ratio SEE NOTE: 6 - (calc) [facility] Comment: Not Reported: [...] ORDER IDRIS Final Result Performing Organization Address [facility] Co de Phone Number [facility] [address] [address] [phone] * OR AN ELECTIVE SUPRAGLOTTIC AIRWAY (10/21/2024 8:39 AM CDT) Narrative Clarisa De Leon CRNA - 10/21/2024 8:39 AM CDT Clarisa De Leon CRNA 10/21/2024 8:41 AM Airway Patient location: OR Urgency: elective Date/time: 10/21/2024 8:29 AM Indications for airway management: anesthesia Difficult airway: no Staff: Placed by: ARMAMENT AIRCRAFT MECHANIC: Clarisa De Leon CRNA Emergent airway documentation: [...] AM CDT) 10/21/2024 6:25 AM CDT Narrative [facility] - 10/21/2024 6:36 AM CDT Vent Rate: 75 bpm RR Interval: 798 msec OR Interval: 0 msec QRS Duration: 150 msec QT Interval: 452 msec QTC Interval: 480 msec P-R-T Keymar: 0 - 63 - -64 degrees IMPRESSION: ELECTRONIC VENTRICULAR PACEMAKER ABNORMAL RHYTHM ECG NO CHANGE FROM PREVIOUS TRACING NOTED Electronically Signed By: Taz Ortiz MD Rodo Smyth MD ECG ORDERABLES Final Resul t [employer] [facility] * SCAN - OTHER ORDERS (10/14/2024) us [...] agrees with it. Electronically signed by: Mynor Cnostantino M.D. Taran Ramirez MD [facility] MRI PROCEDURES Final Result * MRI Brain [...] Resu lt * Colonoscopy (08/02/2024 1:43 PM CABLE MAKER) Anatomical Region Laterality Modality Other Narrative Procedure Note Trey Arroyo MD - 08/02/2024 1:43 PM CST [facility] ENDOSCOPY [facility] Patient Name: Naye Cantu Procedure Date: 08/02/2024 1:43 PM Date of : 1965 Admit Type: Outpatient Age: 58 Gender: Female Attending MD: Trey Arroyo M.D. Room: [facility] ENDOSCOPY ROOM 8 Note Status: Finalized [...] scope was passed under direct vision.The CF [id number] endoscope was introduced through the anus and advanced to the terminal ileum. The colonoscopy was performed without difficulty. The patient tolerated the procedure well. The qualityof the bowel preparation was evaluated using the BBPS ([place] Bowel Preparation Scale) with scores of:Right Colon [...] business hours - Please call theNurse Coordinator: [phone] After hours, evening, nights, weekends and holidays- Please call the hospital bone process operator at and ask for the GI fellow drone operator. Attending Participation: I was present and participated during the entire procedure, including non-patrick portions. Electronically signed by Trey Arroyo MD Trey Arroyo M.D. 08/02/2024 2:08:56 PM . Number of Addenda: 0 Note Initiated On: 08/02/2024 1:43 PM us Trey Arroyo MD ENDOSCOPY PROCEDURES Final Result * Hepatitis C antibody (07/06/2020 2:58 PM CABLE MAKER) Hep C Ab NON-REACTI VE NON-REACT GIA [facility] SIGNAL TO CUT-OFF 0.02 <1.00 [facility] Comment: HCV antibody was non-reactive. There is no laboratory evidence of HCV infection. In most cases, no further action is required. However, if recent HCV exposure is suspected, a test for HCV RNA (test code 91004) is suggested. For additional information please refer to http://education.XAware/faq/NQL06z0 (This link is being provided for informational/ educational purposes only.) Blood specimen (specimen) 07/06/2020 2:58 PM CABLE MAKER 07/06/2020 3:00 PM CABLE MAKER Narrative [facility] - 07/11/2020 9:33 PM CABLE MAKER PATIENT UNABLE TO VOID; ADVISED TO RETURN FOR COLLECTION. us Olga [facility] MICROBIOLOGY - GENERA L ORDERABLES Final Result [facility] [address] [address] [id number] from Last 3 Months or Most Recently Relevant to Health Maintenance Insurance MEDICARE [address] [place] [address] MEDICARE [address] [place], [place] [id number] MEDICARE [facility] [address] [place], [place] [address] MEDICARE [address] [place] [address] MEDICARE [facility] Advance Directives For more information, please contact: [phone] * Full Code (Latest Code Status on [...] 10:10 AM 02/24/2022 4:09 PM Care Teams Diesel Engine Mechanic Relationship Specialty Start Date End Date Tom Paz MD PCP - General 09/09/16 Tab Taylor MD [address] [place] [address] Consulting Physician Cardiology 01/03/20 Favian Caceres MD [address] [place] [address] Consulting Physician Rheumatology 08/28/23
--- OUTSIDE RECORDS SUMMARY | 2024-12-16 12:58 | XMS_ITS | Encounter Summary ---
Author Organization [facility] Address [address] [place] [address] Phone Care Team Providers Care Instructional Media Services Technician Name Role Phone Tom Paz MD Primary Care Provider [phone] Tab Taylor MD Unavailable [phone] Favian Caceres MD Unavailable [phone] Encounter Details Date Type Department Care Team (Latest Contact Info) Description 11/10/2024 Results Follow-Up [facility] [address] [place] [address] Claudia Cristobal, SIMON [address] [place] [address] Comprehensive metabolic panel, CBC with auto differential, CRP (acute phase), Erythrocyte sedimentation rate Social History Tobacco Use Types Packs/Day Years Used Date Smoking Tobacco: Never Passive Smoke Exposure: Past Smokeless Tobacco: Never Alcohol Use Standard Drinks/Week Comments No 0 (1 standard drink = 0.6 oz pur e alcohol) [facility] Utilities Answer Date Recorded In the [...] often do you attend chur ch or temple services? More than 4 times per year [...] place to sleep or slept in a detention (including now)? No 11/02/2023 Housing Stability Vital Sign Answer Thang e Recorded In the last 12 months, was t here a time when you were not able to pay the mortgage or rent on time? No 02/11/2024 In the past 12 months, how m any times have you moved where you were living? 0 02/11/2024 At any time in the past 12 m [facility], were you homeless or living in a detention (including now)? No 02/11/2024 Personal Safety Answer Date Recorded Have you ever been in or are you currently in a harmful physical or emotional relationship or is someone making you feel afraid or unsafe? 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
--- OUTSIDE RECORDS SUMMARY | 2024-12-16 12:58 | XMS_ITS | Encounter Summary ---
Author Organization [facility] Healthcare Address [address] [place] [address] Care Team Providers Care Oxygraph Operator Name Role Phone Tom Paz MD Primary Care Provider [phone] Tab Taylor MD Unavailable Favian Caceres MD Unavailable Reason for Visit * Reason Onset Date Comments Scheduling Appointments 04/15/2024 Schedule patient for Imaging Genicular RFA Right (54797) and 1m follow Encounter Details Date Type Department Care Team (Late st Contact Info) Description 04/15/2024 Telephone [facility] [address] [address], [address] [place] [address] Dougie Lord MD [address] [address] Scheduling Appointments (Schedule patient for Imaging Genicular RFA Right (13699) and 1m follow ) Social History Tobacco Use Types Packs/Day Years Used Date Smoking Tobacco: Never Passive Smoke Exposure: Past Smokeless Tobacco: Never Alcohol Use Standard Drinks/Week Comments No 0 (1 standard drink = 0.6 oz pur e alcohol) [facility] Utilities Answer Date Recorded In the past 12 months has [employer], gas, oil, or water [employer] threatened to shut off services in your [...] often do you attend chur ch or buddhist services? 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
--- OUTSIDE RECORDS SUMMARY | 2024-12-16 12:58 | XMS_ITS | Patient Health Record ---
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) Active confirmed Problem Localized, primary osteoarthritis of the pelvic region and thigh (005798628) Unilateral primary osteoarthritis, left hip (M16.12) Active confirmed Problem Solitary sacroiliitis (147962897) Sacroiliitis, not elsewhere classified (M46.1) Active confirmed Problem Cervical radiculopathy (41235902) Radiculopathy, cervical region (M54.12) Active confirmed Problem Cervical radiculopathy (45141194) Radiculopathy, cervicothoracic region (M54.13) Active confirmed Problem Lumbosacral radiculopathy (5990489) Radiculopathy, lumbosacral region (M54.17) Active confirmed Plan Of Treatment No Information Insurance Providers Payer Name Payer Address Payer Phone Subscriber Number Group Number Insured Name Patient Relationship to Insured Coverage Start Date Coverage End Date MEDICARE SERVICES [address] [address] [place] [address] [id number] Naye Hart Self - patient is the insured 0 IPA [address] [address] [place] [address] [id number] Naye Hart Self - patient [...]
[2024-12-16 13:03] VITALS: BP 101/75; PULSE 65; RESP 20; TEMP 36.6; O2SAT 99
--- NOTE | 2024-12-16 14:19 | ECG_ITS ---
Test Date: 2024-12-16 16:41:49 Measurements Intervals [place] Rate: 70 P: 147 ME: 140 QRS: 19 QRSD: 135 T: 44 QT: 436 QTc: 470 Interpretive Statements ELECTRONIC ATRIAL PACEMAKER ELECTRONIC VENTRICULAR PACEMAKER ABNORMAL RHYTHM ECG Compared to ECG 02/25/2024 12:14:36 No significant changes Electronically Signed On 12-17-2024 07:36:57 CDT by Trey Velazquez M.D.
[2024-12-16 14:32] LABS: Basophils Percent Auto 0.8 % (0.2-1.2); Eosinophils Absolute Auto 0.1 K/mm3 (0-0.3); Eosinophils Percent Auto 1.3 % (0-4.4); Hematocrit 36.2 % (37.0-47.0); Hemoglobin 12.3 g/dL (12.0-15.0); Lymphocytes Absolute Auto 1.33 K/mm3 (0.9-3.2); Lymphocytes Percent Auto 34.2 % (18.3-44.2); Mean Corpuscular Hemoglobin 34.5 pg (26-34); Mean Corpuscular Volume 101.4 fl (80-100); Monocytes Absolute Auto 0.4 K/mm3 (0.1-0.6); Neutrophils Absolute Auto 2.1 K/mm3 (1.3-6.7); Neutrophils Percent Auto 54.7 % (45.5-73.1); Platelet Count Result 148 k/mm3 (150-375); Red Blood Count 3.57 M/mm3 (4.2-5.4); Red Cell Distribution Width 13.2 % (11.5-14.5); White Blood Count 3.9 K/mm3 (4.5-10.0)
[2024-12-16 14:41] LABS: Alanine Aminotransferase 21 U/L (6-35); Albumin Level 4.2 g/dL (3.5-5.1); Alkaline Phosphatase 52 U/L (38-126); Anion Gap 5 mmol/L (4-12); Aspartate Amino Transferase 29 U/L (14-36); Bilirubin,Total 0.6 mg/dL (0.2-1.3); Blood Urea Nitrogen 30 mg/dL (7-17); Carbon Dioxide 28 mmol/L (22-30); Chloride 108 mmol/L (98-107); Estimated CRCL calculation 65 ml/min; Estimated Glomerular Filt Rate > 60; Glucose 82 mg/dL (65-110); Potassium 4.3 mmol/L (3.4-5.0); Sodium 141 mmol/L (137-145)
[2024-12-16 14:52] LABS: Troponin I < 0.012 ng/mL (0.000-0.034)
[2024-12-16 15:02] LABS: INR 0.9; Partial Thromboplastin Time 34.8 Seconds (22.3-36.8); Prothrombin Time 12.8 Seconds (11.1-14.7)
--- OUTSIDE RECORDS SUMMARY | 2024-12-16 15:08 | XMS_ITS | Encounter Summary ---
Author Organization [facility] Address [address] [place] [address] Phone Care Team Providers Care Side Show Entertainer Name Role Phone Tom Paz MD Primary Care Provider [phone] Tab Taylor MD Unavailable [phone] Favian Caceres MD Unavailable [phone] Encounter Details Date Type Department Care Team (Late st Contact Info) Description 11/25/2024 Results Follow-Up [facility] Gastroenterology [address] [place] [address] Medical Office [address], [address] [place] [address] Trey Arroyo MD [address] [place], [place] [id number] Surgical pathology Social History Tobacco Use Types Packs/Day Years Used Date Smoking Tobacco: Never Passive Smoke Exposure: Past Smokeless Tobacco: Never Alcohol Use Standard Drinks/Week Comments No 0 (1 standard drink = 0.6 oz pur e alcohol) [facility] Utilities Answer Date Recorded In the past [...] often do you attend chur ch or caodaism services? More than 4 times per year [...] place to sleep or slept in a alf (including now)? No 11/02/2023 Housing Stability Vital [...] were you homeless or living in a alf (including now)? No 02/11/2024 Personal Safety Answer Date Recorded Have you ever been in or are you currently in a harmful physical or emotional relationship or is someone making you feel afraid or unsafe? 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
--- OUTSIDE RECORDS SUMMARY | 2024-12-16 15:08 | XMS_ITS | Continuity of Care Document ---
Author Organization [facility] Address [address] [facility] [address] [place] [address] Phone Care Team Providers Care Drug Clerk Name Role Phone Nayely OD OD, Denise [...] EST REFRACTION Medicare OFFICE/OUTPATIENT VISIT, EST REFRACTION [facility] OFFICE/OUTPATIENT VISIT, EST OFFICE/OUTPATIENT VISIT, EST REFRACTION [facility] OFFICE/OUTPATIENT VISIT, EST REFRACTION MEDICARE OFFICE/OUTPATIENT VISIT, [...] OFFICE/OUTPA TIENT VISIT, EST [facility], [address] [facility] [address], [place], [place], [id number], [place] tel:[phone] [facility] flash of light OS (chief complaint) Age-related nuclear cataract, bilateralTear film insufficiency of bilateral lacrimal glandsOther vitreous opacities, bilateral Aug-0 5 Derheimer OD Denise. [address] [facility], [address], [place], [place], [id number], [place]. tel:[phone] Referring Provider: Tom Sapp, [address], [place], [address]. tel:[phone] OFFICE/OUTPA TIENT VISIT, EST [facility], [address] [place] [address], [id number], [place] tel:[phone] OPH CONSULT [facility] Pain OS (chief complaint) Left eye painAge-relat ed nuclear cataract, bilateralOthe r vitreous opacities, bilateralTear film insufficiency of bilateral lacrimal glands Apr-0 4-202 4 Krishnasamy Anthony. [address], [address], [place], [place], [address], [place]. tel:[phone] Referring Provider: Tom Sapp, [address], [place], [address]. tel:[phone] OFFICE/OUTPA TIENT VISIT, EST [facility], [address] [place] [address], [id number], [place] tel:[phone] [facility] blurry vision (chief complaint) Age-related nuclear cataract, bilateralTear film insufficiency of bilateral lacrimal glandsOther vitreous opacities, bilateralDipl opiaHypermetr opia, bilateral Oct-2 4-202 3 Krishnasamy Anthony. [address], [address], [place], [place], [id number], [place]. tel:[phone] Referring Provider: Tom Sapp, [address], [place], [address]. tel:[phone] OFFICE/OUTPA TIENT VISIT, EST [facility], [address] [place] [address], [id number], [place] tel:[phone] [facility] blurry [place] (chief complaint) Tear film insufficiency of bilateral lacrimal glandsOther vitreous opacities, bilateralAge- related nuclear cataract, bilateralDipl opiaHypermetr opia, bilateral Mar-1 0-202 2 Krishnasamy Anthony. [address], [address], [place], [place], [id number], [place]. tel:[phone] Referring Provider: Tom Sapp, [address], [place], [address]. tel:[phone] OFFICE/OUTPA TIENT VISIT, EST [facility], [address] [place] [address], [id number], [place] tel:[phone] [facility] shingles (chief complaint) Herpes zoster without complicationT ear film insufficiency of bilateral lacrimal glands Apr- 1 Krishnasamy Anthony. [address], [address], [place], [place], [id number], [place]. tel:[phone] Referring Provider: Tom Sapp, [address], [place], [address]. tel:[phone] OFFICE/OUTPA TIENT VISIT, EST [facility], [address] [place] [address], [id number], [place] tel:[phone] [facility] blurry (chief complaint) DiplopiaAge-r elated nuclear cataract, bilateralTear film insufficiency of bilateral lacrimal glandsOther vitreous opacities, bilateralHype rmetropia, bilateral Nov- 9 Krishnasamy Anthony. [address], [address], [place], [place], [id number], [place]. tel:[phone] Referring Provider: Anthony Gutierrez, [address], [place], [address]. tel:[phone] OFFICE/OUTPA TIENT VISIT, EST [facility], [address] [place] [address], [id number], [place] tel:[phone] [facility] blurry vision (chief complaint) Tear film insufficiency of bilateral lacrimal glandsOther vitreous opacities, bilateralDipl opiaHypermetr opia of both eyes Oct-3 0- 8 Krishnasamy Anthony. [address], [address], [place], [place], [id number], [place]. tel:[phone] Referring Provider: Anthony Gutierrez, [address], [place], [address]. tel:[phone] OFFICE/OUTPA TIENT VISIT, EST [facility], [address] [place] [address], [id number], [place] tel:[phone] [facility] blurry vision (chief complaint) dry eyes (chief complaint) DiplopiaOther vitreous opacities, bilateralTear film insufficiency of bilateral lacrimal glandsHyperme tropia of both eyes Dec-2 7 7 Krishnasamy Anthony. [address], [address], [place], [place], [id number], [place]. tel:[phone] Referring Provider: Anthony Gutierrez, [address], [address]. tel:[phone] OFFICE/OUTPA TIENT VISIT, EST [facility], [address] [place] [address], [id number], tel:[phone] OPH CONSULT [facility] blurry vision (chief complaint) Reflex sympathetic dystrophy, unspecifiedTe ar film insufficiency , unspecifiedHy permetropia of both eyesOther vitreous opacities, bilateralDipl opia Oct-0 5-201 6 Krishnasamy Anthony. [address], [address], [place], [id number], [place]. tel:[phone] Referring Provider: Anthony Gutierrez, [address], [address]. tel:[phone] OFFICE/OUTPA TIENT VISIT, NEW [facility], [address] [place] [address], [id number], [place] tel:[phone] Oph Consult [facility] blurry vision (chief complaint) Hypermetropia Tear film insufficiency , unspecifiedOt her vitreous opacitiesDipl opiaReflex sympathetic dystrophy, unspecified Sep-2 8-201 5 Krishnasamy Anthony. [address], [address], [place], [id number], [place]. tel:[phone] Referring Provider: Anthony Gutierrez, [address], [place], [address]. tel:[phone] OFFICE/OUTPA TIENT VISIT, EST [facility], [address] [place] [address], [place], [place], [id number], [place] tel:[phone] Oph Consult [facility] Office Tear film insufficiency , unspecifiedRe flex sympathetic dystrophy, unspecifiedOt her vitreous opacitiesHype rmetropiaDipl opia Feb- 4 Krishmargaret Anthony. [address], [address], [place], [place], [id number], [place]. tel:[phone] Referring Provider: Anthony Gutierrez, [address], [place], [address]. tel:[phone] OFFICE/OUTPA TIENT VISIT, EST [facility], [address] [place] [address], [place], [place], [id number], tel:[phone] Oph Consult [facility] Office Other vitreous opacitiesTear film insufficiency , unspecifiedDi plopiaHyperme tropia Mar- 3 Krishnasnina Anthony. [address], [address], [place], [place], [id number], [place]. tel:[phone] Referring Provider: Anthony Gutierrez, [address], [place], [address]. tel:[phone] OFFICE/OUTPA TIENT VISIT, EST [facility], [address] [place] [address], [id number], [place] tel:[phone] OPH [facility] Tear film insufficiency , unspecifiedRe flex sympathetic dystrophy, unspecifiedDi plopiaHyperme tropia Sep- 3 Krishnasnina Anthony. [address], [address], [place], [place], [id number], [place]. tel:[phone] Referring Provider: Anthony Gutierrez [address], [place], [address]. tel:[phone] OFFICE/OUTPA TIENT VISIT, EST [facility], [address], [id number], tel:[phone] OPH CONSULT [facility] Tear film insufficiency , unspecifiedDi plopia 2 Brenda Cruz. [address], [address], [address], . tel:[phone] Referring Provider: Anthony Gutierrez, [address], [place], [address]. tel:[phone] OFFICE/OUTPA TIENT VISIT, NEW [facility], [address] [place] [address], [place], [place], [id number], tel:[phone] OPH CONSULT [facility] DiplopiaHeada cheHypermetro tierra 1 Brenda Cruz. [address], [address], [place], [place], [id number], . tel:[phone] Family History Family Member Type Diagnosis Age At Onset Son Problem (finding) Lazy eye Payers Payer name Insurance type Covered libertarian ID Authorjosea tirin(s) [place] MB [id number] [place] [id number] Social History Type Description Quantity Date Captured [...] D&N. Pt saw Dr Nai Sotelo at [facility] for prism. Pt did not update Rx, [...] +1.75+0.75x 080. Patient will see Oscarnahun Richardson (piecer) @ [facility] for prisms/glasses. Related to Headaches Hyperopia, OU [...] +1.75+0.75x 082. Patient will see Smita Richardson (piecer) @ [facility] 12/24/2010 for motility exam and measurements for [...]
--- OUTSIDE RECORDS SUMMARY | 2024-12-16 15:08 | XMS_ITS | Continuity of Care Document ---
Author Organization [facility] Address [address] [place] [address] [address] [place] [address] Phone Care Team Providers Care Tenter Frame Back Tender Name Role Phone Anthony Gutierrez Unavailable Unavailable [...] Providers Copied on Encounter Office/outpat ient Visit, [facility] [address] [place] [address] [address], [place], [place], [id number], [place] tel:[phone] [facility] No Information 0 0 Krishnasamy Anthony. [address] [facility] [address], [place], [address], [place]. tel:[phone] Office/outpat ient Visit, [facility] [address] [place] [address] [address], [place], [place], [id number], [place] tel:[phone] [facility] [place] No Information 0 0 Krishnasamy Anthony. [address] [facility] [place] [address], [place], [place], [facility], [place]. tel:[phone] Office/outpat ient Visit, [facility] Eye [facility], [address] [place] [address] [address], [place], [place], [id number], [place] tel:[phone] [facility] No Information Fe-2 3-201 0 Krishnasamy Anthony. [address] [facility] [place] [address], [place], [place], [facility], [place]. tel:[phone] [facility] Eye [facility], [address] [place] [address] [address], [place], [place], [id number], [place] tel:[phone] SEC [facility] No Information Jan-3 1-200 9 Krishnasamy Anthony. [facility] [address], [place], [place], [facility], [place]. tel:[phone] [facility], [address] [place] [address] [address], [place], [place], [id number], [place] tel:[phone] [facility] No Information You-2 2-200 9 Krishnasamy Anthony. [address] [place], [place] [address]ate [place] [address], [place], [place], [facility], [place]. tel:[phone] [facility], [address] [place] [address] [address], [place], [place], [id number], [place] tel:[phone] [facility] [place] No Information May-0 8-200 9 Krishnasamy Anthony. P[facility] [place] [address], [place], [facility], [place]. tel:[phone] [facility], [address], [place], [place], [id number], [place] tel:[phone] [facility] No Information Apr-2 8-200 7 Montes OD Simone. [address], [place], [place], [facility], [place]. tel:[phone] Family History Family Member Type Diagnosis Age At Onset No Information Payers Payer name Insurance type Covered republican ID Authoriza tion(s) Medicare [facility] [id number] Medicaid [facility] [id number] Social History Type Description Quantity Date Captured [...]
--- OUTSIDE RECORDS SUMMARY | 2024-12-16 15:08 | XMS_ITS | Encounter Summary ---
Author Organization [facility] Healthcare Address [address] [place] [address] Care Team Providers Care Merchandise Distributor Name Role Phone Tom Paz MD Primary Care Provider [phone] Tab Taylor MD Unavailable [phone] Favian Caceres MD Unavailable [phone] Encounter Details Date Type Department Care Team (Late st Contact Info) Description 02/11/2024 Documentation [facility] Case Management [address] [place] [address] Gaviota Benz, RN Social History Tobacco Use Types Packs/Day Years Used Date Smoking Tobacco: Never Passive Smoke Exposure: Past Smokeless Tobacco: Never Alcohol Use Standard Drinks/Week Comments No 0 (1 standard drink = 0.6 oz pur e alcohol) [facility] Utilities Answer Date Recorded In the past 12 months has [employer], gas, oil, or water [employer] threatened to shut off services in your [...] How often do you attend [facility] or gnosticism services? More than 4 times [...] place to sleep or slept in a long-term (including now)? No 11/02/2023 Housing Stability Vital [...] time in the past 12 m [facility], were you homeless or living in a long-term (including now)? No 02/11/2024 Personal Safety Answer Date Recorded Have you ever been in or are you currently in a harmful physical or emotional relationship or is someone making you feel afraid or unsafe? 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 Gender Identity Not on file Sexual Orientation [...] Medicare and IDPA Prescription Coverage: Yes Pharmacy: [facility]/pharmacy #[id number] [place], [place] - [address] [facility] [address] [facility] [address] [id number] [place], [place] [address] [facility] [address] [facility] - [place], [place] - [address] [facility] [address] [facility] [address] [place], [place] - [address] [facility] [address] [facility] [address] Primary Care Provider: Tom Paz MD Prior to Admission: Functional Status: Minimal assist with ADLs Primary Caregiver: Private caregiver Support System: Children, Friends/neighbors (Son: Porter Serrano [phone]/Friend: Federico [phone]) Home Care Services: Yes Type of Home Care Services: forensic social worker (forensic social worker 5 days per week, 5-6.25 [...] were you homeless or living in a long-term (including now)?: No (02/11/24 1634) Utilities: Yes (SW Consult), (02/11/241634) Social Connections: In a typical week, how many times do you talk on the phone with family, friends, or neighbors?: Once a week How often do you get together with friends or relatives?: Once a week How often do you attend scientology or gnosticism services?: More than 4 times per year Do you belong to any clubs or organizations such as scientology groups, unions, fraternal [...] reports needing assistance with ADLs. Has a long term care social worker and has a quad cane and [...] with Patient, Provider, Direct Care Nurse, Sales Engineer, and other members of theHealth Care Team to assure needed interventions completed. 2. Return patient to optimal level of self-care post discharge. 3. Hospital Education Coordinator will follow for Discharge Planning - interventions as needed 4. Anticipated level of care at discharge 5. Planned Discharge Disposition SONALI Brothers, RN recording studio set up worker [phone] documented in this encounter Plan of Treatment [...] on filedocumented in this encounter Care Teams Merchandise Distributor Relationship Specialty Start Date End Date Tom Paz MD PCP - General 09/09/16 Tab Taylor MD [address] [place] [address] Consulting Physician Cardiology 01/03/20 Favian Caceres MD [address] [place] [address] Consulting Physician Rheumatology 08/28/23 documented as of this encounter
--- OUTSIDE RECORDS SUMMARY | 2024-12-16 15:08 | XMS_ITS | Encounter Summary ---
Author Organization [facility] Address [address] [place] [address] Phone Care Team Providers Care Rod Placer Name Role Phone Tom Paz MD Primary Care Provider [phone] Tab Taylor MD Unavailable [phone] Favian Caceres MD Unavailable [phone] Encounter Details Date Type Department Care Team (Latest Contact Info) Description 11/10/2024 Results Follow-Up [facility] [address] [place] [phone] Claudia Cristobal, SIMON [address] [place] [address] Comprehensive metabolic panel, CBC with auto differential, CRP (acute phase), Erythrocyte sedimentation rate Social History Tobacco Use Types Packs/Day Years Used Date Smoking Tobacco: Never Passive Smoke Exposure: Past Smokeless Tobacco: Never Alcohol Use Standard Drinks/Week Comments No 0 (1 standard drink = 0.6 oz pur e alcohol) [facility] Utilities Answer Date Recorded In [...] often do you attend chur ch or taoist services? 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
--- OUTSIDE RECORDS SUMMARY | 2024-12-16 15:08 | XMS_ITS | Encounter Summary ---
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 Name Role Phone Tom Paz MD Primary Care Provider [phone] Tab Taylor MD Unavailable [phone] Favian Caceres MD Unavailable Reason for Visit * Reason Onset Date Comments Scheduling Appointments 04/15/2024 Schedule patient for Imaging Genicular RFA Right (26578) and 1m follow Encounter Details Date Type Department Care Team (Late st Contact Info) Description 04/15/2024 Telephone [facility] [address] [address], [address] [place] [address] Dougie Lord MD [address] [address] Scheduling Appointments (Schedule patient for Imaging Genicular RFA Right ([id number]) and 1m follow ) Social History Tobacco Use Types Packs/Day Years Used Date Smoking Tobacco: Never Passive Smoke Exposure: Past Smokeless Tobacco: Never Alcohol Use Standard Drinks/Week Comments No 0 (1 standard drink = 0.6 oz pur e alcohol) [facility] Utilities Answer Date Recorded In the past 12 months has [employer], gas, oil, or water [employer] threatened to shut off services in your [...] any clubs o r organizations such as yazidi groups, unions, fraternal or athletic groups, or [...] any time in the past 12 m [facility], were you homeless or living in a [...] on file 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
--- OUTSIDE RECORDS SUMMARY | 2024-12-16 15:08 | XMS_ITS | CONTINUITY OF CARE DOCUMENT ---
Author Name diaz charlenejez Address Unknown Organization [facility] Address [address] [address] [place] [address] Phone [phone] Care Team Providers Care Hot Dip Galvanizer Name Role Phone Tiago BRYANT, Hugo Unavailable [...] In-person encounter Office Visit [facility] Or[facility] Cardiology examination - In-person encounter Office Visit Hugo Ordoñez [facility] - In-person encounter Office Visit Hugo Ordoñez MD [facility] Office - In-person encounter Office Visit Hugo Ordoñez MD [facility] - In-person encounter Office Visit Hugo Ordoñez [facility] - In-person encounter Office Visit Trent Pike [facility] - In-person encounter Office Visit Hugo Ordoñez [facility] - In-person encounter Office Visit Hugo Ordoñez MD [place] [facility] - In-person encounter Office Visit Morgan Roy MD [facility] Atrial Fibrillation s/p AMULETGroin pain, right - In-person encounter Office Visit Hugo Ordoñez MD [facility] Office - In-person encounter Office Visit Hugo Ordoñez [facility] - In-person encounter Office Visit Hugo Ordoñez MD [facility] - In-person encounter Office Visit Hugo Ordoñez MD [facility] Office - In-person encounter Office Visit Hugo Ordoñez MD [facility] - In-person encounter Office Visit Hugo Ordoñez [facility] - In-person encounter Office Visit Morgan Roy [facility] - In-person encounter Office Visit Hugo Ordoñez MD [facility] Ischemia, transient cerebral NOS - In-person encounter Office Visit Hugo Ordoñez MD [facility] - In-person encounter Office Visit Hugo Ordoñez [facility] - In-person encounter Office Visit Hugo Ordoñez MD [facility] Office - In-person encounter Office Visit Hugo Ordoñez [facility] - In-person encounter Office Visit Hugo Ordoñez MD [place] [facility] - In-person encounter Office Visit Hugo Ordoñez MD [facility] Office - In-person encounter Office Visit Hugo Ordoñez MD [place] [facility] COVID-19 asymptomatic, no exposure, testing results unknown or negative screening - In-person encounter Office Visit Hugo Ordoñez [facility] - In-person encounter Office Visit Hugo Ordoñez MD [facility] Office - In-person encounter Office Visit Hugo Ordoñez MD [place] [facility] - In-person encounter Office Visit Hugo Ordoñez [facility] - In-person encounter Office Visit Giorgio Catalan MD [facility] Office - In-person encounter Office Visit Hugo Ordoñez MD [facility] Office - In-person encounter Office Visit Hugo Ordoñez [facility] - In-person encounter Office Visit Hugo Ordoñez [facility] - In-person encounter Office Visit Jean Claude Calixto DO [facility] - In-person encounter Office Visit Hugo Ordoñez MD [facility] - In-person encounter Office Visit Jean Claude Calixto DO [facility] Office - In-person encounter Office Visit Jean Claude Calixto DO [facility] Office - In-person encounter Office Visit Hugo Ordoñez MD [place] [facility] - In-person encounter Office Visit Tab Taylor [facility] - In-person encounter Office Visit Hugo Ordoñez MD [facility] Office - In-person encounter Office Visit Hugo Ordoñez [facility] - In-person encounter Office Visit Tab Taylor [facility] - In-person encounter Office Visit Tab Taylor MD [facility] - In-person encounter Office Visit Tab Taylor MD [facility] - In-person encounter Office Visit Tab Taylor MD [facility] Office - In-person encounter Office Visit Hugo Ordoñez MD [facility] - In-person encounter Office Visit Tab Tyalor [facility] - In-person encounter Office Visit Hugo Ordoñez MD [place] [facility] - In-person encounter Office Visit Tab Taylor MD [facility] Sinus node dysfunction - In-person encounter Office Visit Hugo Ordoñez MD [facility] Office - In-person encounter Office Visit Tab Taylor MD [place] [facility] - In-person encounter Office Visit Hugo Ordoñez MD [place] [facility] - In-person encounter Office Visit Tab Taylor [facility] - In-person encounter Office Visit Tab Taylor MD [facility] Presence of implantable loop recorder - In-person encounter Office Visit Tab Taylor MD [facility] Atrial Fibrillation s/p AMULET - In-person encounter Office Visit Hugo Ordoñez MD [place] [facility] Hyperlipidemia - In-person encounter Office Visit Hugo Ordoñez MD [facility] Office - In-person encounter Office Visit Hugo Ordoñez MD [facility] Office - In-person encounter Office Visit Tab Taylor [facility] - In-person encounter Office Visit Tab Taylor MD [facility] Office SVT S/P ablation - In-person encounter Office Visit Tab Taylor MD [facility] - In-person encounter Office Visit Hugo Ordoñez MD [facility] - In-person encounter Office Visit Hugo Ordoñez MD [facility] - In-person encounter Office Visit Hugo Ordoñez MD [facility] Office Diastolic heart fail ure, chronic - In-person encounter Office Visit Hugo Ordoñez MD [facility] Shortness of breathEdema - localized - In-person encounter Office Visit Rodo Berg MD [facility] - In-person encounter Office Visit Rodo Berg MD [facility] - In-person encounter Office Visit Hugo Ordoñez MD [facility] - In-person encounter Office Visit Rodo Berg MD [facility] Office Inappropriate sinus tachycardia - In-person encounter Office Visit Rodo Berg MD [facility] - In-person encounter Office Visit Rodo Berg MD [facility] - In-person encounter Office Visit Hugo Ordoñez MD [facility] - In-person encounter Office Visit Hugo Ordoñez [facility] - In-person encounter Office Visit Genaro Jane [facility] - In-person encounter Office Visit Hugo Ordoñez MD [facility] - In-person encounter Office Visit Hugo Ordoñez MD [facility] Venous thrombosis - In-person encounter Office Visit Hugo Ordoñez MD [facility] - In-person encounter Office Visit Hugo Ordoñez MD [facility] Palpitations - In-person encounter Office Visit Hugo Ordoñez MD [facility] - In-person encounter Office Visit Hugo Ordoñez MD [facility] - In-person encounter Office Visit Hugo Ordoñez MD [facility] - In-person encounter Office Visit Hugo Ordoñez MD [facility] - In-person encounter Office Visit Hugo Ordoñez [facility] - In-person encounter Office Visit Hugo Ordoñez MD [facility] - In-person encounter Office Visit Hugo Ordoñez MD [facility] - In-person encounter Office Visit Hugo Ordoñez MD [facility] - In-person encounter Office Visit Hugo Ordoñez MD [facility] - In-person encounter Office Visit Hugo Ordoñez MD [facility] REFLEX SYMPATHETIC DYSTROPHY OF THE LOWER [...] blood pressure, diastolic 82 mm[Hg] Aimee barrett [facility] blood pressure, systolic 136 mm[Hg] Gina kristy [facility] oxygen saturation, oximetry 96 % Amarilys [facility] pulse rate 72 /min Amarilys [facility] blood pressure, cuff size regular Aimee barrett [facility] weight E&M 198 [lb_av] Amarilys [facility] height E&M 68.5 [in_i] Amarilys [facility] Body Mass Index (Ratio) 29.81 kg/m2 Bruce [...] % Linda Moses weight E&M 194.4 [lb_av] [facility] Body Mass Index (Ratio) 29.37 kg/m2 Gildardo as [place] blood pressure, cuff size regular Ke rri [...] Lulufreddie weight E&M 197 [lb_av] Kendra Rere [facility] navarro pulse rate 91 /min Kendra Jernigan [facility] weight [...] navarro pulse rate 87 /min Kendra Gruenenfe [facility] weight E&M 202 [lb_av] Kendra Gruenenfe [facility] height E&M 68.5 [in_i] Kendra Gruenenfe [facility] Body Mass Index (Ratio) 29.66 kg/m2 Bruce Ordoñez MD blood pressure, cuff size regular Ke rri Gruenenfelder blood pressure, diastolic 86 mm[Hg] Ke rri Gruenenfelder blood pressure, systolic 130 mm[Hg] Ker ri Heidi oxygen saturation, oximetry 98 % Kendra Gruenenfelder respiratory rate E&M 12 /min Kendra godinezenenfelder pulse rate 74 /min Kendra Jernigan [facility] weight E&M 198 [lb_av] Kendra Lawsone [facility] height E&M 68.5 [in_i] Kendra Jernigan [facility] Body Mass Index (Ratio) 29.37 kg/m2 Rishabh [place] blood pressure, cuff size regular Ke rri Rashiduenesalliefelicia blood pressure, diastolic 90 mm[Hg] Ke rri Gruenesallieeld blood pressure, systolic 140 mm[Hg] Kera Lawsonfreddie pulse rate 108 /min Kendra Jernigan [facility] oxygen saturation, oximetry 97 % Kendra Lawsonfreddie respiratory rate E&M 12 /min Kendra cordovafreddie weight E&M 196 [lb_av] Kendra Jernigan [facility] height E&M [...] blood pressure, cuff size regular [facility] blood pressure, diastolic 82 mm[Hg] Ke rri Danny blood pressure, systolic 142 mm[Hg] Kera Gordon oxygen saturation, oximetry 97 % Kendra Lawsonfreddie respiratory rate E&M 12 /min Kendra [facility]ast [facility] pulse rate 79 /min Kendra Jernigan [facility] weight E&M 199 [lb_av] Kendra Jernigan [facility] height E&M [...] MD blood pressure, diastolic 97 mm[Hg] Madeline [facility] blood pressure, systolic 136 mm[Hg] Amee [facility] weight E&M 197 [lb_av] Brendamaxime Collins [...] blood pressure, systolic 138 mm[Hg] Cat herine [place] oxygen saturation, oximetry 97 % Corinne Travis respiratory rate E&M 16 /min Catheri ne [place] pulse rate 76 /min Corinne Travis weight E&M 184 [lb_av] Corinne [place] blood pressure, cuff size regular Ca therine Travis height E&M 68.5 [in_i] Corinne Travis Body Mass Index (Ratio) 27.27 kg/m2 Bruce Ordoñez MD blood pressure, diastolic 95 mm[Hg] Li nkLogic blood pressure, systolic 133 mm[Hg] Amee kLogic blood pressure, diastolic 95 mm[Hg] Ca therine [place] blood pressure, systolic 133 mm[Hg] Cat herine [place] oxygen saturation, oximetry 98 % Corinne Travis respiratory rate E&M 18 /min Catheri ne [place] pulse rate 92 /min Corinne [place] weight E&M 182 [lb_av] Corinne [place] blood pressure, cuff size regular Ca therine [place] height E&M 68.5 [in_i] Corinne Travis Body [...] Janelle Jc height E&M 68.5 [in_i] Janelle Cj blood pressure, cuff size regular Pa ris [place] blood pressure, diastolic 74 mm[Hg] Pa ris [place] blood pressure, systolic 136 mm[Hg] Par is [place] oxygen saturation, oximetry 98 % Sohpia [place] respiratory rate E&M 18 /min Sophia H neda pulse rate 74 /min Sophia [place] height E&M 68.5 [in_i] Sophia [place] Body Mass Index (Ratio) 28.35 kg/m2 Sund [...] blood pressure, diastolic 102 mm[Hg] Ca therine [place] blood pressure, systolic 125 mm[Hg] Cat herine [place] oxygen saturation, oximetry 96 % Corinne [place] respiratory rate E&M 14 /min Catheri ne [place] pulse rate 92 /min Corinne [place] height E&M 68.5 [in_i] Corinne [place] Body Mass Index (Ratio) 29.07 kg/m2 Bruce Ordoñez MD blood pressure, diastolic 90 mm[Hg] Madeline nkLogic blood pressure, systolic 136 mm[Hg] Amee kLogic blood pressure, diastolic 90 mm[Hg] Daysi martinez [place] blood pressure, systolic 136 mm[Hg] Cayden forbes [facility] oxygen saturation, oximetry 98 % Denise [place] respiratory rate E&M 18 /min Kimberly suárez [place] pulse rate 67 /min Denise [place] weight E&M 194 [lb_av] Denise [facility] height E&M 68.5 [in_i] Denise Manolo [...] blood pressure, cuff size large [facility], diastolic 72 mm[Hg] Ke rri [facility] blood pressure, systolic 110 mm[Hg] Kera Gordon oxygen saturation, oximetry 98 % Kendra Gordon respiratory rate E&M 16 /min Kendra navarro pulse rate 75 /min Kendra Jernigan [facility] weight E&M 191 [lb_av] Kendra Rere [facility] height E&M 68.5 [in_i] Kendra Rere [facility] Body Mass Index (Ratio) 28.92 kg/m2 Bruce [...] blood pressure, systolic 130 mm[Hg] Cayden helanya [facility] blood pressure, resting No Román dent [place] oxygen saturation, oximetry 98 % Denise [facility] respiratory rate E&M 18 /min Kimberly suárez [facility] pulse rate 67 /min Denise [facility] weight E&M 191 [lb_av] Denise [facility] height E&M 68.5 [in_i] Denise [facility] Body Mass Index (Ratio) 27.57 kg/m2 [...] Body Mass Index (Ratio) 27.72 kg/m2 Emanuel olgautma Lambros blood pressure, diastolic 109 mm[Hg] Fe [...] blood pressure, cuff size regular Kr isty [place] pulse rate 89 /min Va Chris oxygen saturation, oximetry 99 % Va Chris blood pressure, diastolic 70 mm[Hg] Bradford isheather [place] blood pressure, systolic 122 mm[Hg] Kri estuardo Chris respiratory rate E&M 19 /min Va [place] weight E&M 185 [lb_av] Va [place] height E&M 68.5 [in_i] Va [place] Body Mass Index (Ratio) 26.82 kg/m2 Jord [...] Ordoñez MD respiratory rate E&M 16 /min [facility] blood pressure, diastolic 97 mm[Hg] To [facility] blood pressure, systolic 145 mm[Hg] [facility] oxygen saturation, oximetry 98 % [facility] pulse rate 94 /min [facility] weight E&M 185 [lb_av] [facility] height E&M 68.5 [in_i] [facility] Body Mass Index (Ratio) 27.87 kg/m2 [...] Franco blood pressure, diastolic 68 mm[Hg] Cy bjemilee Salvador blood pressure, systolic 124 mm[Hg] Anahy [...] Lara O'Aly pulse rate 90 /min Lara O'Ayl weight E&M 221 [lb_av] Lara O'Aly height [...] blood pressure, diastolic 80 mm[Hg] Kr isty [place] blood pressure, systolic 120 mm[Hg] Kri stefrem Chris respiratory rate E&M 16 /min Va Chris oxygen saturation, oximetry 94 % Va [place] pulse rate 78 /min Va Chris blood pressure, cuff size regular Kr isty Chris weight E&M 225 [lb_av] Va [place] height E&M 68.5 [in_i] Va Perez blood pressure, diastolic 94 mm[Hg] Cordell Carter blood pressure, systolic 132 mm[Hg] Jim Carter oxygen saturation, oximetry 97 % Nataly Carter respiratory rate E&M 15 /min Nataly Emma pulse rate 71 /min Nataly Emma height E&M 68.5 [in_i] Nataly [facility] Body Mass Index (Ratio) 32.60 kg/m2 [...] regular Bradford Perez weight E&M 208 [lb_av] aV Perez height E&M 68.5 [in_i] Va Castilloby blood pressure, diastolic 80 mm[Hg] Bradford Perez blood pressure, systolic 132 mm[Hg] Aguila Perez pulse rate 96 /min Va Castilloby oxygen saturation, oximetry 98 % Va Castilloby respiratory rate E&M 16 /min Va [place] Body Mass Index (Ratio) 30.02 kg/m2 Vin [...] Brianna Juarez blood pressure, diastolic 79 mm[Hg] Ia ayansa Juarez blood pressure, systolic 122 mm[Hg] [...] blood pressure, diastolic 72 mm[Hg] Wade varnererjoon [facility] blood pressure, systolic 100 mm[Hg] [facility] [place] pulse rate 105 /min Cristiane Sorto oxygen saturation, oximetry 93 % Cristiane Sorto respiratory rate E&M 17 /min Ish Sorto weight E&M 185 [lb_av] Cristiane Sorto blood pressure, diastolic 60 mm[Hg] Linda leal O'Aly blood pressure, systolic 86 mm[Hg] Gricelda linton O'A[facility] pulse rate 88 /min Lara O'Aly oxygen saturation, oximetry 93 % Lara O'Aly respiratory rate E&M 16 /min [facility] O'Aly weight E&M 185 [lb_av] [facility] ALLERGIES Allergy Name Onset Date Reaction Criticality [...] LinkLogic 3.5-5.2 sodium, serum 143 mmol/L LinkLogic 878-991 1008/03 /19 urea nitrogen/creatinine ratio, serum 45 LinkLogic [...] Not Estab. platelet count 201 X10E3/UL LinkLogic 176-267 2887/03 /19 red blood cell distribution width 12.5 [...] 90 mL/min/{1.7 3_m2} LinkLogic >=60 Normal C, [place] [address] aspartate aminotransferase (SGOT), serum 34 1/L LinkLogic 10-45 Normal C, [place] [address] alanine aminotransferase (SGPT), serum 35 1/L LinkLogic 7-45 Normal C, [place] [address] Alkaline phosphatase 89 LinkLogic 40-130 Normal C, [place] [address] albumin, serum 4.3 g/dL LinkLogic 3.5-5.0 Normal C, [place] [address] protein, total, serum 7.1 g/dL LinkLogic 6.5-8.5 Normal C, [place] [address] bilirubin, serum, total 0.7 mg/dL LinkLogic 0.1-1.2 Normal C, [place] [address] calcium, serum 9.2 mg/dL LinkLogic 8.5-10.3 Normal C, [place] [address] blood glucose, random 74 mg/dL LinkLogic 70-199 Normal C, [place] [address] creatine, serum 0.76 mg/dL LinkLogic 0.60-1.10 Normal C, [place] [address] urea nitrogen, blood 12 mg/dL LinkLogic 6-25 Normal C, [place] [address] anion gap, serum 9 mmol/L LinkLogic 2-15 Normal C, [place] [address] carbon dioxide, venous blood 28 mmol/L LinkLogic 22-32 Normal C, [place] [address] chloride, serum 96 mmol/L LinkLogic 97-110 Low C, [place] [address] potassium, serum 3.8 MMOL/L LinkLogic 3.3-4.9 Normal C, [place] [address] sodium, serum 133 mmol/L LinkLogic 135-145 Low C, [place] [address] activated partial thromboplastin time (aPTT) 50 s LinkLogic 28-38 High C, [place] [address] international normalized ratio (INR) 3.50 LinkLogic 0.90-1.20 High C, [place] [address] prothrombin time (patient) 39.9 s LinkLogic 10.3-13.7 High C, [place] [address] Absolute Basophils 0.0 K/CUMM LinkLogic 0.0-0.1 Normal C, [place] [address] Absolute Monocytes 0.6 K/CUMM LinkLogic 0.2-0.8 Normal C, [place] [address] Absolute Lymphocytes 1.4 K/CUMM LinkLogic 0.8-3.3 Normal C, [address] [address] Absolute Neutrophils 4.7 K/CUMM LinkLogic 1.5-6.5 Normal C, [address] [address] nucleated red blood cells as percent of [...] LinkLogic 3.5-5.2 sodium, serum 142 mmol/L LinkLogic 132-587 6038/06 /14 urea nitrogen/creatinine ratio, serum 20 LinkLogic [...] Not Estab. platelet count 233 X10E3/UL LinkLogic 870-316 0204/04 /22 red blood cell distribution width 13.1 [...] LinkLogic 3.5-5.2 sodium, serum 144 mmol/L LinkLogic 251-120 5931/04 /22 urea nitrogen/creatinine ratio, serum 17 LinkLogic [...] Not Estab. platelet count 252 X10E3/UL LinkLogic 411-187 9785/10 /27 red blood cell distribution width 13.4 [...] Not Estab. platelet count 217 X10E3/UL LinkLogic [phone]/09 /24 red blood cell distribution width 12.9 [...] 88 mg/dL LinkLogic 65-99 coagulation managed by Vnonie Booker RN international normalized ratio (INR) 2.2 [...] LinkLogic 3.5-5.2 sodium, serum 144 mmol/L LinkLogic [phone]/06 /11 urea nitrogen/creatinine ratio, serum 17 LinkLogic [...] Not Estab. platelet count 224 X10E3/UL LinkLogic [phone]/06 /11 red blood cell distribution width 13.8 [...] LinkLogic 3.5-5.2 sodium, serum 142 mmol/L LinkLogic 350-221 1813/05 /08 urea nitrogen/creatinine ratio, serum 22 LinkLogic [...] Not Estab. platelet count 225 X10E3/UL LinkLogic 816-675 3762/05 /08 red blood cell distribution width 13.7 [...] Not Estab. platelet count 235 X10E3/UL LinkLogic [phone]/04 /29 red blood cell distribution width 13.6 [...] Not Estab. platelet count 235 X10E3/UL LinkLogic 473-598 1590/12 /04 red blood cell distribution width 14.3 [...] LinkLogic 3.5-5.2 sodium, serum 144 mmol/L LinkLogic 099-886 7181/05 /23 urea nitrogen/creatinine ratio, serum 20 LinkLogic - eGFR if 97 mL/min/{1.7 3_m2} LinkLogic >59 eGFR if not 84 mL/min/{1.7 3_m2} LinkLogic >59 creatinine, serum 0.80 mg/dL LinkLogic 0.57-1.00 urea nitrogen, blood 16 mg/dL LinkLogic 6-24 blood glucose, random 95 mg/dL LinkLogic 65-99 coagulation managed by Evelia Oseguera [facility] Evelia Oseguera international normalized ratio (INR) 1.2 [...] LinkLogic 3.5-5.2 sodium, serum 143 mmol/L LinkLogic 763-886 5299/02 /07 urea nitrogen/creatinine ratio, serum 18 LinkLogic [...] Not Estab. platelet count 239 X10E3/UL LinkLogic 144-614 0392/02 /07 red blood cell distribution width 13.9 [...] once a week - 07/26 Oh Celestin DNP,DIE KEEPER Medrol (Ranulfo) 4 mg tablets,dose pack completed 1 tablet once a day Take per package instructions 07/29 - 11/18 eLonie Hodges RN completed duloxetine 60 mg capsule,delayed [...] in the am - 07/26 Oh Celestin DNP,DIE KEEPER metoprolol tartrate 25 mg tablet completed Take [...] every 4 hours as needed - 07/24 Joslny Franco CLINDAMYCIN HCL 150 MG ORAL CAPSULE [...] ORAL TABLET completed once daily 10/19 - Huog Ordoñez MD MORGAN ALLERGY 180 MG ORAL [...] passive cigarette sm kelvin exposure no Mario Sozuaty smoking status Never smoker Mario Monroy personal history of marijuana use no hO Celestin DNP,DIE KEEPER drug use no Oh Celestin DN P,DIE KEEPER alcohol use no Oh Celestin DN P,DIE KEEPER passive cigarette sm kelvin exposure no Oh Celestin DNP,DIE KEEPER smoking status Never smoker Oh Celestin DNP,DIE KEEPER drug use none Hugo Ordoñez M D [...] of grandchildren Hugo Ordoñez MD Eliana Nalluri SERVOMECHANISM DESIGNER drug use none Eliana Nalluri SERVOMECHANISM DESIGNER alcohol use no Eliana Nalluri SERVOMECHANISM DESIGNER passive cigarette sm kelvin exposure no Eliana Nalluri SERVOMECHANISM DESIGNER smoking status Never smoker Eliana Nallu ri SERVOMECHANISM DESIGNER drug use none Brenda Collins alcohol use [...] passive cigarette sm kelvin exposure no Brenda Dnenis smoking status Never smoker Brenda Dennis social [...] averag e drinks per day no Corinne [place] passive cigarette sm kelvin exposure no Corinne [...] exercise, frequency, days per week yes Corinne [place] caffeine use, averag e drinks per day no Corinne [place] passive cigarette sm kelvin exposure no Corinne [place] smoking status Never smoker Corinne Ana s social history reviewed E&M revi ewed - no changes required Hugo Ordoñez MD social history E&M Marital Statu s: / L sharita alone E thnicity: Smoking History: P shahab has never smoked. Hugo Ordoñez MD social history reviewed E&M revi ewed - no changes required Hugo Ordoñez MD seatbelt usage 100 % [facility] [place] physical exercise, frequency, days per week yes [facility] [place] caffeine use, averag e drinks per day no [facility]ia [place] passive cigarette sm kelvin exposure no [place]ia [place] smoking status [facility] E&M Marital Statu s: / L sharita alone E thnicity: Smoking History: P shahab has never smoked. Hugo Ordoñez MD social history reviewed E&M revi ewed - no changes required Hugo Ordoñez MD seatbelt usage 100 % Corinne Ana s physical exercise, frequency, days per week yes Corinne Travis caffeine use, averag e drinks per day no Corinne [place] passive cigarette sm kelvin exposure no Corinne [place] smoking status Never smoker Corinne Ana s [...] Hugo Ordoñez MD seatbelt usage 100 % [facility] physical exercise, frequency, days per week yes [facility] caffeine use, averag e drinks per day no [facility] passive cigarette sm kelvin exposure no [facility] smoking status Never smoker [facility] social history E&M Marital Statu s: / L sharita alone E thnicity: Smoking History: P atlong has never smoked. Hugo Ordoñez MD social history reviewed E&M revi ewed - no changes required Hugo Ordoñez MD seatbelt usage 100 % [facility] physical exercise, frequency, days per week yes [facility] caffeine use, averag e drinks per day no [facility] passive cigarette sm kelvin exposure no [facility] smoking status Never smoker [facility] smoking status Never smoker Yo Shawanda griffith social history E&M Marital Statu s: / L sharita alone E thnicity: Smoking History: P atlong has never smoked. Yo Heller social history reviewed E&M revi ewed - no changes required Yo Heller seatbelt usage 100 % [facility] physical exercise, frequency, days per week yes [facility] [place] caffeine use, averag e drinks per day [...] Tonsha Hensley smoking status [facility] reviewed E&M revi [...] exercise, frequency, days per week yes Tonsha [place] caffeine use, averag e drinks per day no Tonsha [place] passive cigarette sm kelvin exposure no Tonsha Hensley smoking status [facility] reviewed E&M revi ewed - no changes required Tab Taylor MD seatbelt usage 100 % [facility] physical exercise, frequency, days per week [facility], averag e drinks per day no Yenifer Aj passive cigarette sm kelvin exposure no Yenifer Aj smoking status Never smoker [facility] social history E&M Marital Statu s: / L sharita alone E thnicity: Smoking History: P atient has never smoked. Hugo Ordoñez MD social history reviewed E&M revi ewed - no changes required Hugo Ordoñez MD seatbelt usage 100 % [facility], frequency, days per week yes Tonsha [place] caffeine use, averag e drinks per day no Tonsha [place] passive cigarette sm kelvin exposure no Tonsha [place] smoking status [facility] social history E&M Marital Statu [...] cigarette sm kelvin exposure no Velma Michael social history reviewed [...] required Celestine Levy seatbelt usage 100 % [facility] physical exercise, frequency, days per week yes Sania Briana caffeine use, averag e drinks per day no Sania Briana passive cigarette sm kelvin exposure no Sania Briana smoking status Never smoker [facility] social history reviewed E&M revi ewed - no changes required Tab Taylor MD seatbelt usage 100 % [facility] physical exercise, frequency, days per week yes [facility] caffeine use, averag e drinks per day no [facility] passive cigarette sm kelvin exposure no Sania Block smoking status Never smoker [facility] seatbelt usage 100 % Velma Guzman [...] Hugo Ordoñez MD seatbelt usage 100 % [facility] physical exercise, frequency, days per [...] day none Lara O'Aly alcohol use no Alra O'Aly caffeine use, averag e drinks per [...] use, average drinks per day none Kendra Rashdijono alcohol use no Kendra Washingtonkatie duckworth caffeine use, averag e drinks per day no Kendratim Gordon drug use none Kendra Lulue gucci passive cigarette sm kelvin exposure no Kendra Lawsonfreddie smoking status Never smoker Kendra Rashidvelvet torres [...] use, averag e drinks per day no Ana Sandoval drug use none Ana Sandoval passive cigarette sm kelvin exposure no Ana Sandoval smoking status Never smoker Ana usárez social history E&M Marital Statu s: / [...] exercise, frequency, days per week yes [facility] [place] alcohol use, average drinks per day none [facility] [place] alcohol use no [facility] [place] caffeine use, averag e drinks per day no [facility] drug use none [facility] [place] passive cigarette sm kelvin exposure no Va [...] Lilly social history reviewed E&M reviewed Hugo Ordñoez MD physical exercise, frequency, days per week yes [employer] caffeine use, averag e drinks per day no [facility] alcohol use, average drinks per day none [facility] smoking status Non-smoker [facility] MENTAL STATUS Date Observation Value Provider [...] Policy type / Coverage type Emelina red [place] [id number] ADVANCE DIRECTIVES Name Date DISCUSSED - NO DECISION MADE TREATMENT PLAN Date Name Performer [id number],S, Hugo Ramada n [place] [id number],S, Hugo Ramada n IA [id number],S, Hugo Ramada n IA [id number],S, Hugo Ramada n IA [id number],S, Hugo Ramada n IA [id number],S, Hugo Ramada n IA [id number],S, Hugo Ramada n IA [id number],B, Hugo Ramada n IA [id number],S, Hugo Ramada n IA [id number],S, Hugo Ramada n IA [id number],S, Hugo Ramada n IA [id number],B, Hugo Ramada n IA [id number],S, Hugo Ramada n IA [id number],B, Hugo Ramada n IA [id number],S, Hugo Ramada n IA [id number],S, Hugo Ramada n IA [id number],B, Hugo Ramada n IA [id number],S, Hugo Ramada n IA [id number],S, Hugo Ramada n IA [id number],S, Hugo Ramada n IA [id number],S, Hugo Ramada n IA [id number],S, Hugo Ramada n IA [id number],S, Hugo Ramada n IA [id number],S, Hugo Ramada n IA [id number],S, Hugo Ramada n IA [id number],S, Hugo Ramada n IA [id number],S, Hugo Ramada n IA [id number],S, Hugo Ramada n IA [id number],S, Hugo Ramada n IA [id number],S, Hugo Silverioada n IA [id number],S, Hugo Silverioada n IA [id number],S, Hugo Ramada n IA [id number],S, Hugoshad Silverioada n IA [id number],S, Hugo Ramada n IA [id number],S, Hugo Ramada n IA [id number],S, Hugo Ramada n IA [id number],S, Hugo Ramada n IA [id number],S, Hugo Ramada n IA [id number],B,S teroids improved pain. Lab shows systemic inflammation. Hugo Silveriodebbie IA [id number],S, Hugo Ramada n IA [id number],S, Hugo Henson kalani BRYANT [id number],S, Hugo Silverioalana uriarte IA [id number],B, Hugoshad Silverioalana uriarte IA [id number],S, Hugo Silverioalana uriarte IA [id number],S, Hugo Silverioalana uriarte IA [id number],B, Hugoshad Silverioalana uriarte IA [id number],S, Hugo Silverioalana uriarte IA [id number],S, Hugo Silverioalana uriarte IA [id number],S, Hugo Henson kalani IA [id number],S, Hugo Silverioalana uriarte IA [id number],S, Hugo Silverioalana uriarte IA [id number],B,R 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 Hugo Tiago BRYANT [id number],S, Hugo Henson kalani IA [id number],S, Hugo Henson kalani [place] [id number],S, Hugoshad Silverioalana uriarte [place] [id number],S, Hugoshad Silverioalana uriarte IA [id number],S, Hugo Silverioalana uriarte IA [id number],S, Hugoshad Silverioalana uriarte IA [id number],B, Hugo Natividad uriarte IA [id number],S, Hugoshad Silverioalana uriarte IA [id number],B, Hugo Natividad uriarte IA [id number],W,S eems pacer related. Will replace RV lead with a septal implant and try to remove old lead. Hugo Ordoñez MD [id number],S, Hugo uriarte MD [id number],B, Hugo uriarte MD [id number],S, Hugo uriarte MD CCM Malina Blood Take [...] Hugo Ordoñez MD Cardiology Hugo rOdoñez MD Cardiology:11/16/24 H ad RA and Septal [...] functioning appropiately. No at/af burden. Oh Nguyendarnell DNP,DIE KEEPER Cardiology:Amulet in position on MARYSOL in march. Of warfarin and plavix. Device check reveals no AT/AF burden from ppm. W ILL NEED TO BE ON ABX FOR SBE PROPHYLAXIS INDEFINITELY WITH AMLET DEVICE IN THE LAAO H PCN ALLERGY HAS PROCEDURE FOR BLADDER SLING DONE AT [facility] W/ JESSICA UROLOGIST O K TO CONTINUE ON ASPRIRIN C LINDAMYCIN DOSE IS 600MG 30-60MIN BEFORE PROCEDURE FOR IE PROPHYLAXIS Ohlady Celestin DNP,DIE KEEPER Cardiology Hugo Ordoñez MD Cardiology Hugo Ordoñez [...] Ordoñez MD Cardiology:On OAC Eliana Leahylur i SERVOMECHANISM DESIGNER Cardiology:Mild sob with exertio n Eliana Armondluri SERVOMECHANISM DESIGNER Cardiology:None Eliana Leahyluri SONIA Cardiology:EF 70% Her [...] 3 tabs seek medical attention Eliana Leahyluri SERVOMECHANISM DESIGNER Cardiology: H er updated medication list for this problem includes: Rosuvastatin 40 Mg Tablet (Rosuvastatin) ..... Take 1 tablet by mouth once a day Eliana Armondluri SERVOMECHANISM DESIGNER Cardiology:AT episod e on 10/10/23 for 4m 30s, EGM appears t o show PAT. On warfarin for OAC Eliana Nalluri SERVOMECHANISM DESIGNER Cardiology:s/p PPM Eliana Boswell ri SERVOMECHANISM DESIGNER Cardiology:RA 91%, R V 100% b attery 60% Eliana Boswellri SERVOMECHANISM DESIGNER Cardiology: W as recently in the hospital c/o heaviness in her chest . Normal EKG, stress test and echo h ad on eepisode of chest pain since dischrged from hospital, relieved with nitro Eliana Boswellri SERVOMECHANISM DESIGNER Cardiology:Bp stable today Selene Boswellri SERVOMECHANISM DESIGNER Telehealth Lele Brown Telehealth Lele Brown Telehealth:complains [...] PPM if her symptoms fail to resolve. [id number] appears to be ST 120-130's, AsVP, 100% RV paced, Metoprolol increased to 50mg BID, much improved symptoms since these changes Linda Scott NP Electrophysiology Fo llow up : i nterrogation today 0% AF burden Linda Scott NP Electrophysiology Fo llow up :[id number], appears to be ST, 120-130's rate, AsVp, [...] 1/2 mins. total 131 episodes Lori Cummings SERVOMECHANISM DESIGNER Electrophysiology- N P:interrogation today: ST 120's. longeset [...] her symptoms fail to resolve. Lori Zoila SERVOMECHANISM DESIGNER Electrophysiology: N ormal cath 04/16/2020 complicated by [...] up Hugo mari MD Cardiology follow up uHgo mari MD Cardiology follow up Hugo mari [...] DC PPM implant 06/2019. P resented to [facility] 03/2020 and was told by Loading Machine Adjuster there she was having SVT . S [...] Hugo Ordoñez MD Cardiology Hugo Ordoeñz MD Cardiology:Somewhat atypical but exertional in nature. [...] 03/2020 CHOL 195, Trig 213, HDL 37, IHH081. L ipoprotein 119.7 A polipoprotein B 114 Yo Heller Electrophysiology:Un derwent AV node ablation 12/2019 with prior DC PPM implant 06/2019. H ospitalized at [facility] and was told by Loading Machine Adjuster there she was having SVT . S [...] Mode switch 160, switch [facility] D[facility]. [facility]:s/ p AV node ablation [...] (Aspirin) ..... One tab by mouth daily [facility] Cardiology [facility] Cardiology: H er updated medication list for this problem includes: Warfarin Sodium 5 Mg Tablet (Warfarin sodium) ..... Take 1 tablet by mouth starting 7 days prior to procedure Aspirin Adult Low Dose 81 Mg Oral Tablet Delayed Release (Aspirin) ..... One tab by mouth daily [facility] Cardiology: H er updated medication list for this problem includes: Warfarin Sodium 5 Mg Tablet (Warfarin sodium) ..... Take 1 tablet by mouth starting 7 days prior to procedure Aspirin Adult Low Dose 81 Mg Oral Tablet Delayed Release (Aspirin) ..... One tab by mouth daily [facility] TeleHealth: H er updated medication list for this problem includes: Warfarin Sodium 5 Mg Oral Tablet (Warfarin sodium) ..... One tab by mouth starting 7 days prior to procedure Aspirin Adult Low Dose 81 Mg Oral Tablet Delayed Release (Aspirin) ..... One tab by mouth daily [facility] TeleHealth: H er updated medication list for this problem includes: Warfarin Sodium 5 Mg Oral Tablet (Warfarin sodium) ..... One tab by mouth starting 7 days prior to procedure Aspirin Adult Low Dose 81 Mg Oral Tablet Delayed Release (Aspirin) ..... One tab by mouth daily [facility] TeleHealth: H er updated medication list for this problem includes: Warfarin Sodium 5 Mg Oral Tablet (Warfarin sodium) ..... One tab by mouth starting 7 days prior to procedure Aspirin Adult Low Dose 81 Mg Oral Tablet Delayed Release (Aspirin) ..... One tab by mouth daily [facility] TeleHealth:Reschedul e AV node ablation with carto and anesthesia after December 23, No need for CT [facility] TeleHealth: H er updated medication list for this problem includes: Aspirin Adult Low Dose 81 Mg Oral Tablet Delayed Release (Aspirin) ..... One tab by mouth daily [facility] TeleHealth: H er updated medication list for this problem includes: Aspirin Adult Low Dose 81 Mg Oral Tablet Delayed Release (Aspirin) ..... One tab by mouth daily [facility] TeleHealth: H er updated medication list for this problem includes: Aspirin Adult Low Dose 81 Mg Oral Tablet Delayed Release (Aspirin) ..... One tab by mouth daily [facility] TeleHealth:No episod es reported for this session. I CM trend is stable. [facility] Cardiology Hugo Ordoñez MD Cardiology Hugo Ordoñez [...] Dr. Ordoñez to do PPM implant at [facility] for sinus node dysfunction. The following medications [...] (Aspirin) ..... One tab by mouth daily [facility] Electrophysiology [facility] Electrophysiology:Re mote Transmission: N o episodes or [...] Hugo Ordoñez MD Cardiology-seen with MD and SERVOMECHANISM DESIGNER Maxime Gamboa [facility] Cardiology-seen with MD and SERVOMECHANISM DESIGNER : none noted on ILR Dionne Gamboa [facility] Cardiology-seen with MD and SERVOMECHANISM DESIGNER :Pt remains symptomatic with tachycardia interfering with [...] One tab by mouth daily Dionne Gamboa [facility] Cardiology:well heal ing scar a vised pt to apply ice pack on incision site. [facility] Electrophysiology:IL R implantation O rders: E KG (CPT-67740) 9 9213 LTD. Complex (CPT-95580) 6 minute walk test (CPT-39580) Her updated medication list for this problem includes: Metoprolol Tartrate 25 Mg Oral Tablet (Metoprolol tartrate) ..... One tab. twice daily Aspirin Adult Low Dose 81 Mg Oral Tablet Delayed Release (Aspirin) ..... One tab by mouth daily Tab Taylor MD Electrophysiology: O rders: 9 9213 LTD. Complex (CPT-55635) 6 minute walk test (CPT-96565) L oop Rec Implant - [facility] (*) Her updated medication list for this problem includes: Metoprolol Tartrate 25 Mg Oral Tablet (Metoprolol tartrate) ..... One tab. twice daily Aspirin Adult Low Dose 81 Mg Oral Tablet Delayed Release (Aspirin) ..... One tab by mouth daily Tab Taylor MD Electrophysiology: O rders: 9 9213 LTD. Complex (CPT-49968) 6 minute walk test (CPT-27652) L oop Rec Implant - [facility] (*) Her updated medication list for this problem includes: Metoprolol Tartrate 25 Mg Oral Tablet (Metoprolol tartrate) ..... One tab. twice daily Aspirin Adult Low Dose 81 Mg Oral Tablet Delayed Release (Aspirin) ..... One tab by mouth daily Tab Taylor MD Electrophysiology:IL R implantation at [facility] with Dr. Tiago Ramirez ill evaluate ILR [...] a day. Orders: 9 9214 MOD Complex (CPT-80378) B ASIC METABOLIC PANEL W/EGFR (93938) D -DIMER, QUANTITATIVE (8659) D -DIMER, QUANTITATIVE (8659) M obile Cardiac Tele (CPT-34407) Celestine Levy Cardiology Tab castaneda MD Cardiology: [...] twice a day. Tab Taylor MD Electrophysiology [facility] Electrophysiology: H er updated medication list for this problem includes: Warfarin Sodium 5 Mg Oral Tablet (Warfarin sodium) ..... One tablet daily start 1 week before the procedure Adult Aspirin Ec Low Strength 81 Mg Oral Tablet Delayed Release (Aspirin) ..... Take one tab po once daily Metoprolol Tartrate 25 Mg Oral Tablet (Metoprolol tartrate) ..... One half tablet twice a day. [facility] Electrophysiology: H er updated medication list for this problem includes: Adult Aspirin Ec Low Strength 81 Mg Oral Tablet Delayed Release (Aspirin) ..... Take one tab po once daily Metoprolol Tartrate 25 Mg Oral Tablet (Metoprolol tartrate) ..... One half tablet twice a day. [facility] Electrophysiology [facility] Electrophysiology: nuclear stress test Summary 1 . Normal myocardial perfusion imaging after vasodilator stress with Regadenoson. 2 . Normal left ventricular systolic function with a calculated ejection fraction of 75%. 3 . No obvious significant scintigraphic evidence of myocardial ischemia or scar. 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 [...] tablet twice a day. Orders: E KG (CPT-82635) 9 9215 HIGH Complex (CPT-63912) A BLATION w/ Anesthesia (*) M obile Cardiac Tele (CPT-03737) [facility] Ne w Patient : O rders: E KG (CPT-38454) 9 9215 HIGH Complex (CPT-83902) A BLATION w/ Anesthesia (*) Her updated [...] [facility]aro Lilly Cardiology [facility] Cardiology [facility] Cardiology Genaro [...] follow up : O rders: E KG (CPT-24420) BP today: 140/96 Prior BP: 136/92 (02/28/2013) [...] ..... Three times daily Orders: E KG (CPT-98278) BP today: 121/86 Prior BP: 127/88 (10/20/2011) [...] MD : O rders: C omplete Echo (CPT-33563) S tress Test - Adenosine (78348) Hugo Ordoñez MD : O rders: C omplete Echo (CPT-14410) Hugo Ordoñez MD : O rders: S tress Test - Adenosine (60788) E vent Recorder (*) BP today: 86/60 [...] Ordoñez MD complete d EKG Jean Claude [place] DO comple jaden EKG Jean Claude [place] DO comple jaden EKG Jean Claude [place] DO comple jaden EKG Hugo Ordoñez MD [...] EKG Hugo Ordoñez MD complete d SNOMED-CT: 719376901310931 Current Medications Documented Hugo Ordoñez MD completed SNOMED-CT: 081085502252354 Current Medications Documented Hugo Ordoñez MD completed EKG Rodo Berg MD comp leted SNOMED-CT: 236808162161051 Current Medications Documented Rodo Begr MD completed EKG Rodo Berg MD comp leted SNOMED-CT: 840739182120127 Current Medications Documented Rodo Berg MD completed SNOMED-CT: 558052709914585 Current Medications Documented Hugo Ordoñez MD completed EKG Hugo Ordoñez MD complete d SNOMED-CT: 697788829725002 Current Medications Documented Hugo Ordoñez MD completed EKG Rodo Berg MD comp leted SNOMED-CT: 505206755335652 Current Medications Documented Rodo Berg MD completed SNOMED-CT: 249596701754493 Current Medications Documented Hugo Ordoñez MD completed Event Monitor Luis M Pagan completed Stress EKG Yonathan Bernard MD complet ed Regadenoson, 4 units Yonathan Bernard MD completed Cardiolite, 2 units Yonathan Bernard MD completed SPECT Images Yonathan Bernard MD compl eted SNOMED-CT: 766303334911978 Current Medications Documented Hugo Ordoñez MD completed Ambulatory BP Genaro Jane MD comp leted Ambulatory BP Genaro Jane MD comp leted EKG Genaro Jane MD complet ed SNOMED-CT: 822386421148820 Current Medications Documented Genaro Jane MD completed EKG Hugo Ordoñez MD complete d SNOMED-CT: 848930191246513 Current Medications Documented Hugo Ordoñez MD completed EKG Hugo Ordoñez MD complete d EKG Hugo Ordoñez MD complete d
--- OUTSIDE RECORDS SUMMARY | 2024-12-16 15:09 | XMS_ITS | Encounter Summary ---
Author Organization [facility] Address [address] [place] [address] Phone Care Team Providers Care Supercalender Operator Helper Name Role Phone Tom Paz MD Primary Care Provider [phone] Tab Taylor MD Unavailable [phone] Favian Caceres MD Unavailable [phone] Encounter Details Date Type Department Care Team (Late st Contact Info) Description 12/06/2024 E-Visit [facility] [address] [place] [phone] Claudia Cristobal, SIMON [address] [place] [address] Ultrasound Social History Tobacco Use Types Packs/Day Years Used Date Smoking Tobacco: Never Passive Smoke Exposure: Past Smokeless Tobacco: Never Alcohol Use Standard Drinks/Week Comments No 0 (1 standard drink = 0.6 oz pur e alcohol) [facility] Utilities Answer Date Recorded In the past 12 months has [employer], gas, oil, or water [employer] threatened to shut off services in your [...] any time in the past 12 m [facility], were you homeless or living [...] on file 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
--- OUTSIDE RECORDS SUMMARY | 2024-12-16 15:09 | XMS_ITS | Encounter Summary ---
Author Organization [facility] Healthcare Address [address] [place] [address] Care Team Providers Care Communication Analyst Name Role Phone Tom Paz MD Primary Care Provider [phone] Tab Taylor MD Unavailable Favian Caceres MD Unavailable [phone] Encounter Details Date Type Department Care Team (Late st Contact Info) Description 12/08/2024 Results Follow-Up [facility] Endoscopy [address] [place] [place] [address] Trey Arroyo MD [address] [place], [place] [id number] CT Abdomen Pelvis W Contrast Social History Tobacco Use Types Packs/Day Years Used Date Smoking Tobacco: Never Passive Smoke Exposure: Past Smokeless Tobacco: Never Alcohol Use Standard Drinks/Week Comments No 0 (1 standard drink = 0.6 oz pur e alcohol) [facility] Utilities Answer Date Recorded In the past 12 months has [employer], gas, oil, or water [employer] threatened to shut off services in your [...] often do you attend chur ch or hindu services? 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
--- OUTSIDE RECORDS SUMMARY | 2024-12-16 15:09 | XMS_ITS | Referral Summary ---
Author Organization [facility] Address [address] [place] [address] Care Team Providers Care Meter Maker Name Role Phone Tom Paz MD Primary Care Provider [phone] Tab Taylor MD Unavailable Favian Caceres MD Unavailable [phone] Encounters Date Type Department Care Team Description 5 Telephone [facility] Gastroenterolog y [address] [facility] Advanced Medicine 12th [place] [address] [place] [address] Carlie Patricia Prior Auth 5 Orders Only [facility] [address] [facility] 2nd Floor [address] [place] [address] Trey Arroyo MD 5 Results Follow-Up [facility] Endoscopy [address] [place] [address] Abdomen Pelvis W Contrast 5 7:04 AM CDT - 5 11:59 PM CDT Hospital Encounter [facility] [address] [place] [address] Trey Arroyo MD Abdominal pain; Nausea and vomiting, unspecified vomiting type Discharge Disposition: Discharge to home or self care 5 E-Visit [facility] [address] [place] [phone] Claudia Abdalla PA Ultrasound 5 Orders Only [facility] [address] [place] [phone] Claudia Abdalla PA 5 Orders Only [facility] Gastroenterolog y [address] [facility] 2nd Floor [address] [place] [phone] Trey Arroyo MD Abdominal pain (Primary Dx); Nausea and vomiting, unspecified vomiting type 5 Results Follow-Up [facility] Gastroenterolog y [address] [place] [address] Medical Office Building 4, [address] [place] [address] Trey Arroyo MD Surgical pathology 5 11:00 AM CDT - 5 11:30 AM CDT Surgery [facility] Endoscopy [address] [place] [address] Trey Arroyo MD ESOPHAGOGASTRODUODENOSCOPY BIOPSY 5 11:18 AM CDT Anesthesia Event [facility] Endoscopy [address] [place] [address] Pepe Muller MD Hughett, Elizabeth Ann, CRNA 5 9:53 AM CDT - 5 12:36 PM CDT Hospital Encounter [facility] Endoscopy [address] [place] [address] Trey Arroyo MD Abdominal pain; Nausea Discharge Disposition: Discharge to home or self care 5 Documentation [facility] Gastroenterolog [facility] [address] [facility] 2nd Floor [address] [place] [phone] Valerie Washington LPN GI pre procedure screening 5 Orders Only [facility] Gastroenterolog [facility] [address] [facility] 2nd Floor [address] [place] [address] Trey Arroyo MD Abdominal pain (Primary Dx); Nausea 5 Results Follow-Up [facility] [address] [place] [phone] Claudia Abdalla PA Comprehensive metabolic panel, CBC with auto differential, CRP (acute phase), Erythrocyte sedimentation rate 5 2:34 PM CDT - 5 11:59 PM CDT Hospital Encounter [facility] [address] [address], [address] [place] [phone] Dougie Lord MD Right knee pain, unspecified chronicity (Primary Dx); Other chronic pain Discharge Disposition: Discharge to home or self care 5 10:45 AM CDT Office Visit [facility] [address] [place] [phone] Claudia Abdalla PA Seronegative rheumatoid arthritis (HCC) (Primary Dx); Encounter for long-term (current) use of high-risk medication 5 [facility] ([facility]) - [facility] ENT [address] [place] [address] [facility] 11th [place] [address] [place] [address] Helena Kamara, 5 7:30 AM CDT - 5 9:00 AM CDT Surgery [facility] Operating Room [address] [place] [address] Hugo Ordoñez Jr., MD REPOSITION PERMANENT PACEMAKER LEAD 5 8:10 AM CDT Anesthesia Event [facility] Operating Room [address] [place] [address] Saravanan Amador Jr., MD Vuong, Peter Thuan, MD 5 5:29 AM CDT - 5 11:22 AM CDT Hospital Encounter [facility] Operating Room [address] [place] [address] Hugo Ordoñez Jr., MD Discharge Disposition: Discharge to home or self care 5 Orders Only [facility] Operating Room [address] [place] [address] Hugo Ordoñez Jr., MD Cardiac pacemaker in situ (Primary Dx); Shortness of breath; Chronic diastolic heart failure (HCC) 5 Orders Only [facility] Health Information Management 1 [place] [address] Scanning, Provider 5 Documentation Cardiology Sofiya Rosa NP 5 12:04 PM CDT - 5 11:59 PM CDT Hospital Encounter [facility] Radiology [address] [place] [address] Transient ischemic attack (TIA); Cerebrovascular disease, unspecified; Unspecified visual loss; Presence of cardiac pacemaker Discharge Disposition: Discharge to home or self care 5 11:40 AM CDT - 5 11:59 PM CDT Hospital Encounter [facility] Radiology 1 [place] [address] Encounter for imaging to screen for metal prior to magnetic resonance imaging (MRI) Discharge Disposition: Discharge to home or self care 5 11:41 AM CDT - 5 11:59 PM CDT Hospital Encounter [facility] Radiology [address] [place] [address] Discharge Disposition: Discharge to home or self [...] - blisters Etanercept Itching Low 02/24/2022 Gum [place] Unknown 05/12/2023 Gum Smhokf-Mojwsl-Dzdf-Alcoho l Blisters,Rash High 12/17/2021 Mastisol - blisters [...] QuantGold Assessment & Plan (07/28/2024 11:19 AM MALARIOLOGIST): Monitor routine labs while on immunosuppressive medications. [...] QuantGold Assessment & Plan (09/22/2023 12:26 PM MALARIOLOGIST): Monitor routine labs while on immunosuppressive medications. [...] QuantGold Assessment & Plan (09/11/2022 12:48 PM MALARIOLOGIST): Monitor routine labs while on immunosuppressive medications. Recent 08/20 labs stable. 06/2020: Neg Hep B/C 03/2021: Neg QuantGold Assessment & Plan (07/01/2022 9:25 AM MALARIOLOGIST): Monitor routine labs while on immunosuppressive medications. [...] QuantGold Assessment & Plan (08/19/2021 2:31 PM MALARIOLOGIST): Monitor routine labs while on immunosuppressive medications. [...] Hospitalized for total of 8 days, at [facility] and then [facility]. Had CT brain/neck angio that were [...] Hospitalized for total of 8 days, at [facility] and then [facility]. Had CT brain/neck angio that were [...] 07/24/2020 Assessment & Plan (07/24/2020 12:34 PM MALARIOLOGIST): Her greatest pain complaint at this time [...] 07/24/2020 Assessment & Plan (07/01/2022 2:12 PM MALARIOLOGIST): Self weaned off Cymbalta 2 days ago [...] exercise. Assessment & Plan (08/27/2020 2:41 PM MALARIOLOGIST): Fatigue with sensation of pain all over [...] exercise. Assessment & Plan (07/24/2020 12:36 PM MALARIOLOGIST): Fatigue with sensation of pain all over [...] PT. Assessment & Plan (08/28/2020 12:26 PM MALARIOLOGIST): Multifocal OA (hands and hips) per recent xrays. Continue Tylenol 500 mg qid. Continue PT. Assessment & Plan (07/24/2020 12:41 PM MALARIOLOGIST): Multifocal OA (hands and hips) per recent [...] and osteopenia with mcc use of steroids. Labs today. To return in 6 weeks for re-evaluation - this can be moved out to 3 months if joints remain stable. Assessment & Plan (07/28/2024 11:22 AM MALARIOLOGIST): Off MTX (oral ulcers/hair thinning). 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 She was strongly [...] needed. Assessment & Plan (09/22/2023 12:32 PM MALARIOLOGIST): A 09/2022 repeat left hand/wrist US demonstrated [...] needed. Assessment & Plan (09/11/2022 12:48 PM MALARIOLOGIST): Continued 15mg MTX weekly and monthly Simponi [...] Chan. Assessment & Plan (08/06/2022 9:00 PM MALARIOLOGIST): Has continued 15mg MTX weekly as well [...] we have no access to them through [employer]. She already had an OV scheduled for 09/02 - will re-evaluate joints at that time and consider repeat hand US if synovitis is absent/minimal on exam but she is still noting pain -to evaluate for underlying inflammation. She may require change in biologic medication. Assessment & Plan (07/01/2022 2:09 PM MALARIOLOGIST): CDAI 37, high Off Enbrel due to [...] She is to follow up with her linter saw sharpener soon due to low BP following her [...] and osteopenia with mcc use of steroids. Continue 15mg MTX weekly [...] Chan. Assessment & Plan (08/19/2021 9:00 PM MALARIOLOGIST): CDAI 25. On 15mg MTX weekly but has only taken 3 Enbrel injections so far. Just completed a medrol dose pack from her linter saw sharpener due to inflammation around her heart (pericarditis?). [...] incontinence. Has followed up with PCP and linter saw sharpener - started Ubrelvy for JACKSON and linter saw sharpener is to adjust her pacemaker on 05/23. [...] needed. Assessment & Plan (08/28/2020 12:26 PM MALARIOLOGIST): Our workup showed an JANNET 1:160 but [...] needed. Assessment & Plan (07/24/2020 12:33 PM MALARIOLOGIST): 54yoF referred for evaluation due to +JANNET [...] reassess. Assessment & Plan (07/06/2020 4:49 PM MALARIOLOGIST): 54yoF referred for evaluation due to +JANNET [...] (12/13/2019): Added automatically from request for surgery [id number] SVT (supraventricular tachycardia) 12/13/2019 Overview (12/13/2019): Added automatically from request for surgery [id number] A-fib 11/24/2019 Overview (11/24/2019): Added automatically from request for surgery [id number] Laryngopharyngeal reflux (LPR) 08/04/2018 Assessment & Plan (10/20/2018 12:26 PM CDT): No longer taking the omeprazole and ranitidine as prescribed. Patient is no longer experiencing any coughing, sinonasal or throat symptoms. Assessment & Plan (08/04/2018 1:17 PM MALARIOLOGIST): Add omeprazole 40 mg Q morning 30 [...] resume. Assessment & Plan (08/04/2018 1:11 PM MALARIOLOGIST): Patient's chronic cough is most likely secondary [...] reactive airway disease contributing to her cough. detention current use of anticoagulant therapy 1 08/28/2014 Deep vein thrombosis (DVT) 06/27/2015 Hyperthyroidism 08/31/2012 Chronic adrenal insufficiency 08/30/2012 Social History Tobacco Use Types Packs/Day Years Used Date Smoking Tobacco: Never Passive Smoke Exposure: Past Smokeless Tobacco: Never Tobacco Cessation:Counseling Given: Not Answered Alcohol Use Standard Drinks/Week Comments No 0 (1 standard drink = 0.6 oz pur e alcohol) [facility] Utilities Answer Date Recorded In the past 12 months has [employer] [place], gas, oil, or water [employer] threatened to shut off services in your [...] often do you attend chur ch or episcopalian services? More than 4 times per year 02/11/2024 Do you belong to any clubs o r organizations such as faith groups, unions, fraternal or athletic groups, or [...] place to sleep or slept in a correction (including now)? No 11/02/2023 Housing Stability Vital Sign Answer Thang e Recorded In the last 12 months, was t here a time when you were not able to pay the mortgage or rent on time? No 02/11/2024 In the past 12 months, how m any times have you moved where you were living? 0 02/11/2024 At any time in the past 12 m [facility], were you homeless or living in a correction (including now)? No 02/11/2024 Personal Safety Answer Date Recorded Have you ever been in or are you currently in a harmful physical or emotional relationship or is someone making you feel afraid or unsafe? Denies 11/23/2024 Comments No Sex and Gender Information Value Date Recorded Sex Assigned at Not on file Legal Sex Female 12:21 AM MALARIOLOGIST Gender Identity Not on file Sexual Orientation [...] home safety. Medical Devices Implanted Type Area Birdcage Assembler Device Identifier Shelf Expiration Date Model / Serial / Lot Ivc Filter- 7 Implanted:Qty: 1 on 06/09/2007 by Tam Fraser MD IVC Filter N/A: Vena Cava Lead-Spinal Cord Stimulator- 018 Implanted:2017 by Taran Ramirez MD (Quantity not on file) Lead Back [employer] SC-2158- 50 / / Biotronik Ra Lead ([id number])- 019 Implanted:2018 (Quantity not on file) Lead Chest Biotronik SOLIA S 45 [id number] / [id number] / Lead (Rv)-05/23/2021 Implanted:2020 (Quantity not on file) Lead Heart Bi[employer]ik SOLIA S 53 377 177 / [id number] / Biotronik Paceomaker Amvia Edge -T-12/24/2023 Implanted:2023 (Quantity not on file) Pacemaker Chest Wall Biotronik [id number] / [id number] / Spinal Cord Stimulator- 018 Implanted:Qty: 1 on 08/20/2017 by Taran Ramirez MD Spinal Cord Stimulator N/A: Back [employer] SC-1200 / [id number] / Spinal Cord Stimulator Lead-08/20/2017 Implanted:2017 by Taran Ramirez MD (Quantity not on file) Spinal Cord Stimulator Back [employer] Neuro- [id number] / / Hardware Thoracic-L umbar Spine Loop Recorder Chest Wall [employer] System Closure Repair Femoral Artery Suture Mediated Perclose Prostyle 35655-34 - [id number] Implanted:Qty: 1 on 02/09/2024 by Morgan Roy MD at [facility] [employer] 11/16/2025 [id number] / / [id number] [employer] Percutaneous Transcatheter Amplatzer Amulet 18mm [id number] - [id number] Implanted:Qty: 1 on 02/09/2024 by Morgan Roy MD at [facility] Vascular 09/17/2027 9-[id number] 07-018 / / [id number] [place] V[employer] System Closure Repair Femoral Artery Suture Mediated Perclose Prostyle 16005-94 - [id number] Implanted:Qty: 1 on 02/09/2024 by Morgan Roy MD at [facility] Vascular 11/16/2025 [id number] / / [id number] [employer] Sling Urinary Incontinence Female Stress Short Desara Blue Sis-Ds01bs - [id number] Implanted:Qty: 1 on 06/28/2024 by Shankar Mak MD at [facility] N/A: Urethra [employer] 01/04/2027 SIS-DS01 BS / / [id number] Explanted Type Area Birdcage Assembler Device Identifier Shelf Expiration Date Model / Serial / Lot Biotronik Rv Lead ([id number])-07/04 Implanted:Qty: 1 on 07/04/2019 Explanted:Qty: 1 Lead Chest Biotronik [id number] / / Description:This lead was re placed and left behind per patient on 05/23/21 Biotronik Pacemaker ([id number])-07/04 Implanted:Qty: 1 on 07/04/2019 Explanted:Qty: 1 on 12/24/2023 Pacemaker Left: Chest Biotronik ELUNA 8 KRISTY CARBAJAL / [id number] / [id number] Procedures Procedure Name Priority Date/Time Associated Diagnosis [...] for long-term (current) use of high-risk medication WA AN ELECTIVE SUPRAGLOTTIC AIRWAY Routine 10/21/2024 8:39 AM CDT REPOSITION PERMANENT PACEMAK ER LEAD 10/21/2024 8:06 AM CDT Cardiac pacemaker in situ Shortness of breath Chronic diastolic heart failure ([facility]) ECG 12-LEAD STAT 10/21/2024 6:25 AM CDT [...] of cardiac pacemaker COLONOSCOPY 08/02/2024 1:43 PM MALARIOLOGIST HEPATITIS C ANTIBODY Routine 07/06/2020 2:58 PM MALARIOLOGIST Polyarthralgia Encounter for screening for other viral [...] results best viewed via link to PDF [facility] [place] [address] Note to Patients: This report may contain [...] Gender: F : 1965 (Age: 59) Address: [address] [place], [place] [address] Hospital #: [id number] Taken:11/23/2024 Received:11/23/2024 Reported: 11/24/2024 Patient Type: [facility] SAME Client [facility] Service: Gastro Location: Physician(s): Trey Arroyo M.D. [...] 0. rxr/11/23/2024 14:21 PA(s): Roz Mtz MS, SIMON([facility])CM By this signature, I attest that the above diagnosis is based upon my personal examination of the slides(and/or other material). Addenda/Procedures Microscopic slide review and interpretation for this case was performed at [facility], Department of Surgical Pathology, [address] [facility] [address], [id number], [place] [address] CLIA # [id number] The performance characteristics of some immunohistochemical stains, fluorescence in-situ hybridization tests and immunophenotyping by flow cytometry cited in this report (if any) were determined by the Surgical Pathology and Flow Cytometry Departments at [facility] as part of an ongoing corporate quality engineer program and in compliance with [...] Surgical Pathology and Flow Cytometry Departments of [facility]. It has not been cleared or approved by the U. S. Food and Drug Administration. IMAGES AND SCANNED DOCUMENTS, IF INCLUDED, ONLY VIEWABLE IN PDF VERSION OF REPORT us Trey Arroyo MD LAB PATHOLOGY ORDERAB LES Final Result PATHOLOGY [facility] [phone] * EGD (11/23/2024 11:20 AM CDT) Anatomical Region Laterality Modality Other Narrative Procedure Note Tery Arroyo MD - 11/23/2024 11:20 AM CDT ENDOSCOPY LAB Patient Name: Naye Cantu Procedure Date: 11/23/2024 11:20 AM Date of : 1965 Admit Type: Outpatient Age: 59 Gender: Female Attending MD: Trey Arroyo M.D. Room: [facility] ENDOSCOPY ROOM 03 Note Status: Finalized [...] and oxygen saturations were monitored continuously. The [id number] was introduced through the mouth, and advanced [...] business hours - Please call theNurse Coordinator: [phone] After hours, evening, nights, weekends and holidays- Please call the hospital preparation operator at and ask for the GI fellow distribution operations manager. Attending Participation: I personally performed the entire [...] AM CDT 11/09/2024 11:26 AM CDT Claudia OMNTES LAB BLOOD ORDER IDRIS Final Result Performing Organization Address City/[facility]/ZIP Co de Phone Number [facility] [address] [place] [address] * Erythrocyte sedimentation rate (11/09/2024 11:26 AM CDT) Erythrocyte sedimentation rate 6 < OR = 30 mm/h [facility] Blood 11/09/2024 11:2 6 AM CDT 11/09/2024 11:26 AM CDT Claudia MONTES LAB BLOOD ORDER IDRIS Final Result Performing Organization Address [facility] Co de Phone Number [facility] [address] [place] [address] * CRP (acute phase) (11/09/2024 11:26 AM CDT) C-RP <3.0 <8.0 mg/L [facility] Blood 11/09/2024 11:2 6 AM CDT 11/09/2024 11:26 AM CDT Claudia MONTES LAB BLOOD ORDER IDRIS Final Result Performing Organization Address City/[facility] Co de Phone Number [facility] [address] [place] [address] * (ABNORMAL) Comprehensive metabolic panel (11/09/2024 11:26 [...] BLOOD ORDER IDRIS Final Result [facility] [address] [address] [address] * WA AN ELECTIVE SUPRAGLOTTIC AIRWAY (10/21/2024 8:39 AM CDT) Narrative Clarisa De Leon CRNA - 10/21/2024 8:39 AM CDT Clarisa De Leon CRNA 10/21/2024 8:41 AM Airway Patient location: OR Urgency: elective Date/time: 10/21/2024 8:29 AM Indications for airway management: anesthesia Difficult airway: no Staff: Placed by: HAULING CONTRACTOR: Clarisa De Leon CRNA Emergent airway documentation: [...] AM CDT) 10/21/2024 6:25 AM CDT Narrative [facility] - 10/21/2024 6:36 AM CDT Vent Rate: 75 bpm RR Interval: 798 msec WA Interval: 0 msec QRS Duration: 150 msec QT Interval: 452 msec QTC Interval: 480 msec P-R-T [place]: 0 - 63 - -64 degrees IMPRESSION: ELECTRONIC VENTRICULAR PACEMAKER ABNORMAL RHYTHM ECG NO CHANGE FROM PREVIOUS TRACING NOTED Electronically Signed By: Taz Ortiz MD us Rodo Smyth MD ECG ORDERABLES Final Resul t [facility] * SCAN - OTHER ORDERS [...] Resu lt * Colonoscopy (08/02/2024 1:43 PM MALARIOLOGIST) Anatomical Region Laterality Modality Other Narrative Procedure Note Trey Arroyo MD - 08/02/2024 1:43 PM [facility] Patient Name: Naye Cantu Procedure Date: 08/02/2024 1:43 PM Date of : 1965 Admit Type: Outpatient Age: 58 Gender: Female Attending MD: Trey Arroyo M.D. Room: [facility] ENDOSCOPY ROOM 8 Note Status: Finalized [...] The scope was passed under direct vision.The [id number] endoscope was introduced through the anus and advanced to the terminal ileum. The colonoscopy was performed without difficulty. The patient tolerated the procedure well. The qualityof the bowel preparation was evaluated using the BBPS ([place] Bowel Preparation Scale) with scores of:Right Colon [...] business hours - Please call theNurse Coordinator: [phone] After hours, evening, nights, weekends and holidays- Please call the hospital preparation operator at and ask for the GI fellow distribution operations manager. Attending Participation: I was present and participated during the entire procedure, including non-patrick portions. Electronically signed by Trey Arroyo MD Trey Arroyo M.D. 08/02/2024 2:08:56 PM . Number of Addenda: 0 Note Initiated On: 08/02/2024 1:43 PM Trey Arroyo MD ENDOSCOPY PROCEDURES Final Result * Hepatitis C antibody (07/06/2020 2:58 PM MALARIOLOGIST) Hep C Ab NON-REACTI VE NON-REACT GIA [facility] SIGNAL TO CUT-OFF 0.02 <1.00 [facility] Comment: HCV antibody was non-reactive. There is no laboratory evidence of HCV infection. In most cases, no further action is required. However, if recent HCV exposure is suspected, a test for HCV RNA (test code 06157) is suggested. For additional information please refer to http://education.[employer]faq/LDN24a7 (This link is being provided for informational/ educational purposes only.) Blood specimen (specimen) 07/06/2020 2:58 PM MALARIOLOGIST 07/06/2020 3:00 PM MALARIOLOGIST Narrative [facility] - 07/11/2020 9:33 PM MALARIOLOGIST PATIENT UNABLE TO VOID; ADVISED TO RETURN FOR COLLECTION. Olga MONTES LAB MICROBIOLOGY - GENERA L ORDERABLES Final Result [facility] [address] [place] [address] from Last 3 Months or Most Recently Relevant to Health Maintenance Insurance , [facility] [address] [place] [address] MEDICARE [facility] [address] [place] [id number] MEDICARE [facility] [address] [place] [id number] MEDICARE [facility] [address] [place] [address] MED[address] [place] [address] MEDICARE IDPA Advance Directives For more information, please contact: [phone] * Full Code (Latest Code Status on [...] 10:10 AM 02/24/2022 4:09 PM Care Teams Meter Maker Relationship Specialty Start Date End Date Tom Paz MD PCP - General 09/09/16 Tab Taylor MD [address] [place] [address] Consulting Physician Cardiology 01/03/20 Favian Caceres MD [address] [facility] [place] [address] Consulting Physician Rheumatology 08/28/23
--- OUTSIDE RECORDS SUMMARY | 2024-12-16 15:09 | XMS_ITS | Clinical Summary ---
Author Organization [facility] Address [address] [place] [address] Care Team Providers Care Aging Room Operator Name Role Phone Tom Paz MD Primary Care Provider [phone] Tab Taylor MD Unavailable [phone] Favian Caceres MD Unavailable [phone] Allergies Active Allergy Reactions Criticality Noted Date [...] - blisters Etanercept Itching Low 02/24/2022 Gum Austin Unknown 05/12/2023 Gum Tmuwsd-Smqksn-Lzoj-Alcoho l Blisters,Rash High 12/17/2021 Mastisol - blisters [...] QuantGold Assessment & Plan (07/28/2024 11:19 AM CASE FITTER): Monitor routine labs while on immunosuppressive medications. [...] QuantGold Assessment & Plan (09/22/2023 12:26 PM CASE FITTER): Monitor routine labs while on immunosuppressive medications. [...] QuantGold Assessment & Plan (09/11/2022 12:48 PM CASE FITTER): Monitor routine labs while on immunosuppressive medications. Recent 08/20 labs stable. 06/2020: Neg Hep B/C 03/2021: Neg QuantGold Assessment & Plan (07/01/2022 9:25 AM CASE FITTER): Monitor routine labs while on immunosuppressive medications. [...] QuantGold Assessment & Plan (08/19/2021 2:31 PM CASE FITTER): Monitor routine labs while on immunosuppressive medications. [...] Hospitalized for total of 8 days, at [place] and then [facility]. Had CT brain/neck angio that [...] Hospitalized for total of 8 days, at [place] and then [facility]. Had CT brain/neck angio that [...] 07/24/2020 Assessment & Plan (07/24/2020 12:34 PM CASE FITTER): Her greatest pain complaint at this time [...] 07/24/2020 Assessment & Plan (07/01/2022 2:12 PM CASE FITTER): Self weaned off Cymbalta 2 days ago [...] exercise. Assessment & Plan (08/27/2020 2:41 PM CASE FITTER): Fatigue with sensation of pain all over [...] exercise. Assessment & Plan (07/24/2020 12:36 PM CASE FITTER): Fatigue with sensation of pain all over [...] PT. Assessment & Plan (08/28/2020 12:26 PM CASE FITTER): Multifocal OA (hands and hips) per recent xrays. Continue Tylenol 500 mg qid. Continue PT. Assessment & Plan (07/24/2020 12:41 PM CASE FITTER): Multifocal OA (hands and hips) per recent [...] increase blood glucose, glaucoma and osteopenia with computer terminal operator use of steroids. Labs today. To return in 6 weeks for re-evaluation - this can be moved out to 3 months if joints remain stable. Assessment & Plan (07/28/2024 11:22 AM CASE FITTER): Off MTX (oral ulcers/hair thinning). Remains on [...] increase blood glucose, glaucoma and osteopenia with computer terminal operator use of steroids. She was strongly [...] needed. Assessment & Plan (09/22/2023 12:32 PM CASE FITTER): A 09/2022 repeat left hand/wrist US demonstrated [...] needed. Assessment & Plan (09/11/2022 12:48 PM CASE FITTER): Continued 15mg MTX weekly and monthly Simponi [...] Chan. Assessment & Plan (08/06/2022 9:00 PM CASE FITTER): Has continued 15mg MTX weekly as well [...] we have no access to them through [employer]. She already had an OV scheduled for 09/02 - will re-evaluate joints at that time and consider repeat hand US if synovitis is absent/minimal on exam but she is still noting pain -to evaluate for underlying inflammation. She may require change in biologic medication. Assessment & Plan (07/01/2022 2:09 PM CASE FITTER): CDAI 37, high Off Enbrel due to ISRs. Continued MTX and Simponi injections. Noted improvement after prednisone taper at last visit. Joints were feeling good until a few weeks ago when she returned from a trip to [place] an self weaned off Cymbalta. Now with [...] She is to follow up with her firebreak cutter soon due to low BP following her [...] Chan. Assessment & Plan (08/19/2021 9:00 PM CASE FITTER): CDAI 25. On 15mg MTX weekly but has only taken 3 Enbrel injections so far. Just completed a medrol dose pack from her firebreak cutter due to inflammation around her heart (pericarditis?). [...] incontinence. Has followed up with PCP and firebreak cutter - started Ubrelvy for JACKSON and firebreak cutter is to adjust her pacemaker on 05/23. [...] pen with her during her trip to [place] (leaves and returns around the ). A letter was provided for [facility] to allow Humira to be brought as a carry on. She may call [facility] to schedule injection with a nurse ambassador [...] needed. Assessment & Plan (08/28/2020 12:26 PM CASE FITTER): Our workup showed an JANNET 1:160 but [...] needed. Assessment & Plan (07/24/2020 12:33 PM CASE FITTER): 54yoF referred for evaluation due to +JANNET [...] reassess. Assessment & Plan (07/06/2020 4:49 PM CASE FITTER): 54yoF referred for evaluation due to +JANNET [...] (12/13/2019): Added automatically from request for surgery [id number] SVT (supraventricular tachycardia) 12/13/2019 Overview (12/13/2019): Added automatically from request for surgery [id number] A-fib 11/24/2019 Overview (11/24/2019): Added automatically from request for surgery [id number] Laryngopharyngeal reflux (LPR) 08/04/2018 Assessment & Plan (10/20/2018 12:26 PM CDT): No longer taking the omeprazole and ranitidine as prescribed. Patient is no longer experiencing any coughing, sinonasal or throat symptoms. Assessment & Plan (08/04/2018 1:17 PM CASE FITTER): Add omeprazole 40 mg Q morning 30 [...] resume. Assessment & Plan (08/04/2018 1:11 PM CASE FITTER): Patient's chronic cough is most likely secondary [...] reactive airway disease contributing to her cough. 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 use of anticoagulant therapy 1 08/28/2014 Deep vein thrombosis (DVT) 06/27/2015 Hyperthyroidism 08/31/2012 Chronic adrenal insufficiency 08/30/2012 Encounters Date Type Department Care Team Description 5 7:04 AM CDT - 5 11:59 PM CDT Hospital Encounter [facility] [address] [place] [address] Trey Arroyo MD Abdominal pain; Nausea and vomiting, unspecified vomiting type Discharge Disposition: Discharge to home or self care 5 Telephone [facility] [address] [facility] 12th [place] [address] [place] [address] Carlie Patricia Prior Auth 5 Orders Only [facility] [address] 2[address] [place] [address] Trey Arroyo MD 5 Results Follow-Up [facility] Endoscopy [address] [place] [address] Abdomen Pelvis W Contrast 5 E-Visit [facility] [address] [place] [phone] NoreenClaudia Miradna PA Ultrasound 5 Orders Only [address] [address] Claudia Abdalla PA 5 Orders Only [facility] [address] [facility] 2nd Floor [address] [place] [address] Trey Arroyo MD Abdominal pain (Primary Dx); Nausea and vomiting, unspecified vomiting type 5 Results Follow-Up [facility] [address] [place] [address] Medical Office Building [address], [address] [place] [address] Trey Arroyo MD Surgical pathology 5 11:18 AM CDT Anesthesia Event [facility] Endoscopy [address] [place] [address] Pepe Muller MD Hughett, Elizabeth Ann, CRNA 5 11:00 AM CDT - 5 11:30 AM CDT Surgery [facility] Endoscopy [address] [place] [address] Trey Arroyo MD ESOPHAGOGASTRODUODENOSCOPY BIOPSY 5 9:53 AM CDT - 5 12:36 PM CDT Hospital Encounter [facility] Endoscopy [address] [place] [address] Trey Arroyo MD Abdominal pain; Nausea Discharge Disposition: Discharge to home or self care 5 Documentation [facility] [address] [facility] 2nd Floor [address] [place] [address] Valerie Washington LPN GI pre procedure screening 5 Orders Only [facility] [address] [facility] 2nd Floor [address] [place] [address] Trey Arroyo MD Abdominal pain (Primary Dx); Nausea 5 Results Follow-Up [facility] [address] [place] [phone] Claudia Abdalla PA Comprehensive metabolic panel, CBC with auto differential, CRP (acute phase), Erythrocyte sedimentation rate 5 2:34 PM CDT - 5 11:59 PM CDT Hospital Encounter [facility] [address] [facility] [address], [address] [place] [phone] Dougie Lord MD Right knee pain, unspecified chronicity (Primary Dx); Other chronic pain Discharge Disposition: Discharge to home or self care 5 10:45 AM CDT Office Visit [facility] [address] [place] [phone] Claudia Abdalla PA Seronegative rheumatoid arthritis (HCC) (Primary Dx); Encounter for long-term (current) use of high-risk medication 5 Telephone [facility] ENT [address] [facility] 11th [place] [address] [place] [phone] Helena Kamara MS 5 8:10 AM CDT Anesthesia Event [facility] Operating Room [address] [place] [address] Saravanan Amador Jr., MD Vuong, Peter Thuan, MD 5 7:30 AM CDT - 5 9:00 AM CDT Surgery [facility] Operating Room [address] [place] [address] Hugo Ordoñez Jr., MD REPOSITION PERMANENT PACEMAKER LEAD 5 5:29 AM CDT - 5 11:22 AM CDT Hospital Encounter [facility] Operating Room [address] [place] [address] Hugo Ordoñez Jr., MD Discharge Disposition: Discharge to home or self care 5 Orders Only [facility] Operating Room [address] [place] [address] Hugo Ordoñez Jr., MD Cardiac pacemaker in situ (Primary Dx); Shortness of breath; Chronic diastolic heart failure (HCC) 5 Orders Only [facility] Health Information Management [address] [place] [address] Scanning, Provider 5 12:04 PM CDT - 5 11:59 PM CDT Hospital Encounter [facility] Radiology [address] [place] [address] Transient ischemic attack (TIA); Cerebrovascular disease, unspecified; Unspecified visual loss; Presence of cardiac pacemaker Discharge Disposition: Discharge to home or self care 5 11:41 AM CDT - 5 11:59 PM CDT Hospital Encounter [facility] Radiology [address] [place] [address] Discharge Disposition: Discharge to home or self care 5 11:40 AM CDT - 5 11:59 PM CDT Hospital Encounter [facility] Radiology [address] [place] [address] Encounter for imaging to screen for metal [...] drink = 0.6 oz pur e alcohol) [employer] Answer Date Recorded In the past 12 months has [place], gas, oil, or water [employer] threatened to shut off services in your home? Yes 02/11/2024 Social Connection and Isolat ion Panel [NHANES] Answer Date Recorded In a typical week, how many times do you talk on the phone with family, friends, or neighbors? Once a week 02/11/2024 How often do you get togethe r with friends or relatives? Once a week 02/11/2024 How often do you attend [facility] or [facility] services? More than 4 times per year 02/11/2024 Do you belong to any clubs o r organizations such as confucianist groups, unions, fraternal or athletic groups, or [...] place to sleep or slept in a jail (including now)? No 11/02/2023 Housing Stability Vital Sign Answer Thang e Recorded In the last 12 months, was t here a time when you were not able to pay the mortgage or rent on time? No 02/11/2024 In the past 12 months, how m any times have you moved where you were living? 0 02/11/2024 At any time in the past 12 m [facility], were you homeless or living in a jail (including now)? No 02/11/2024 Personal Safety Answer Date Recorded Have you ever been in or are you currently in a harmful physical or emotional relationship or is someone making you feel afraid or unsafe? Denies 11/23/2024 Comments No Sex and Gender Information Value Date Recorded Sex Assigned at Not on file Legal Sex Female 12:21 AM CASE FITTER Gender Identity Not on file Sexual Orientation [...] home safety. Medical Devices Implanted Type Area Automation Application Engineer Device Identifier Shelf Expiration Date Model / Serial / Lot Ivc Filter- 7 Implanted:Qty: 1 on 06/09/2007 by Tam Fraser MD IVC Filter N/A: Vena Cava Lead-Spinal Cord Stimulator- 018 Implanted:2017 by Taran Ramirez MD (Quantity not on file) Lead Back [employer] SC-2158- 50 / / Biotronik Ra Lead ([id number])- 019 Implanted:2018 (Quantity not on file) Lead Chest Biotronik SOLIA S [id number] / [id number] / Lead (Rv)-05/23/2021 Implanted:2020 (Quantity not on file) Lead Heart Biotronik SOLIA S 53 377 177 / [id number] / Biotronik Paceomaker Ariana Kaur-12/24/2023 Implanted:2023 (Quantity not on file) Pacemaker Chest Wall Bi[employer]ronik [id number] / [id number] / Spinal Cord Stimulator- 018 Implanted:Qty: 1 on 08/20/2017 by Taran Ramirez MD Spinal Cord Stimulator N/A: Back [employer] SC-1200 / [id number] / Spinal Cord Stimulator Lead-08/20/2017 Implanted:2017 by Taran Ramirez MD (Quantity not on file) Spinal Cord Stimulator Back [employer] Neuro- [id number] / / Hardware Thoracic-L umbar Spine Loop Recorder Chest Wall [employer] V[employer] System Closure Repair Femoral Artery Suture Mediated Perclose Prostyle 77905-45 - [id number] Implanted:Qty: 1 on 02/09/2024 by Morgan Roy MD at [facility] 11/16/2025 66978-20 / / [id number] [place] [employer] Percutaneous Transcatheter Amplatzer Amulet 18mm 8-[id number] - [id number] Implanted:Qty: 1 on 02/09/2024 by Morgan Roy MD at [facility] 09/17/2027 9-ACP2-0 07-018 / / [id number] [place] [employer] System Closure Repair Femoral Artery Suture Mediated Perclose Prostyle 02973-59 - [id number] Implanted:Qty: 1 on 02/09/2024 by Morgan Roy MD at [facility] 11/16/2025 50172-02 / / [id number] [employer] Sling Urinary Incontinence Female Stress Short Desara Blue Sis-Ds01bs - [id number] Implanted:Qty: 1 on 06/28/2024 by Shankar Mak MD at [facility] N/A: Urethra [employer] 01/04/2027 SIS-DS01 BS / / [id number] Explanted Type Area Automation Application Engineer Device Identifier Shelf Expiration Date Model / Serial / Lot Biotronik Rv Lead ([id number])-07/04 Implanted:Qty: 1 on 07/04/2019 Explanted:Qty: 1 Lead Chest Biotronik [id number] / / Description:This lead was re placed and left behind per patient on 05/23/21 Biotronik Pacemaker ([id number])-07/04 Implanted:Qty: 1 on 07/04/2019 Explanted:Qty: 1 on 12/24/2023 Pacemaker Left: Chest Biotronik ELUNA 8 KRISTY CARBAJAL / [id number] / [id number] Procedures Procedure Name Priority Date/Time Associated Diagnosis [...] for long-term (current) use of high-risk medication TN AN ELECTIVE SUPRAGLOTTIC AIRWAY Routine 10/21/2024 8:39 [...] of cardiac pacemaker COLONOSCOPY 08/02/2024 1:43 PM CASE FITTER HEPATITIS C ANTIBODY Routine 07/06/2020 2:58 PM CASE FITTER Polyarthralgia Encounter for screening for other viral [...] results best viewed via link to PDF [facility] [place] [address] Note to Patients: This report may contain [...] Gender: F : 1965 (Age: 59) Address: [address] [place], [place] [address] [facility] #: [id number] Taken:11/23/2024 Received:11/23/2024 Reported: 11/24/2024 Patient Type: [facility] EP SAME [facility] Service: Gastro Location: Physician(s): Pb Steward M.D. [...] is entirely submitted. Labeled C1. Jar 0. [facility]/23/2024 14:21 PA(s): Roz Mtz MS, PA([facility])CM By this signature, I attest that the above diagnosis is based upon my personal examination of the slides(and/or other material). Addenda/Procedures Microscopic slide review and interpretation for this case was performed at [facility], Department of Surgical Pathology, [address] [facility] [id number], [place] [address] CLIA # [id number] The performance characteristics of some immunohistochemical stains, fluorescence in-situ hybridization tests and immunophenotyping by flow cytometry cited in this report (if any) were determined by the Surgical Pathology and Flow Cytometry Departments at [facility] as part of an ongoing quality assurance supervisor body program and in compliance with federally mandated [...] Surgical Pathology and Flow Cytometry Departments of [facility]. It has not been cleared or approved by the U. S. Food and Drug Administration. IMAGES AND SCANNED DOCUMENTS, IF INCLUDED, ONLY VIEWABLE IN PDF VERSION OF REPORT Trey Arroyo MD LAB PATHOLOGY ORDERAB LES Final Result PATHOLOGY [facility] [phone] * EGD (11/23/2024 11:20 AM CDT) Anatomical Region Laterality Modality Other Narrative Procedure Note Trey Arroyo MD - 11/23/2024 11:20 AM CDT ENDOSCOPY LAB Patient Name: Naye Cantu Procedure Date: 11/23/2024 11:20 AM Date of : 1965 Admit Type: Outpatient Age: 59 Gender: Female Attending MD: Trey Arroyo M.D. Room: [facility] ENDOSCOPY ROOM 03 Note Status: Finalized [...] and oxygen saturations were monitored continuously. The [id number] was introduced through the mouth, and advanced [...] business hours - Please call theNurse Coordinator: [phone] After hours, evening, nights, weekends and holidays- Please call the hospital rock crusher operator at and ask for the GI fellow vocational rehabilitation teacher. Attending Participation: I personally performed the entire [...] ORDER IDRIS Final Result Performing Organization Address City/[facility] Co de Phone Number [facility] [address] [place] [address] * Erythrocyte sedimentation rate (11/09/2024 11:26 AM CDT) Pathologist [facility] Erythrocyte sedimentation rate 6 < OR = 30 mm/h [facility] Blood 11/09/2024 11:2 6 AM CDT 11/09/2024 11:26 AM CDT Claudia MONTES LAB BLOOD ORDER IDRIS Final Result Performing Organization Address City/[facility] de Phone Number [facility] [address] [place] [address] * CRP (acute phase) (11/09/2024 11:26 AM CDT) Pathologist [facility] C-RP <3.0 <8.0 mg/L [facility] Blood 11/09/2024 11:2 6 AM CDT 11/09/2024 11:26 AM CDT us Claudia MONTES LAB BLOOD ORDER IDRIS Final Result [facility] [address] [address] * (ABNORMAL) Comprehensive metabolic panel (11/09/2024 11:26 [...] ORDER IDRIS Final Result Performing Organization Address [facility] Co de Phone Number [facility]ology [facility] [address] [address] [address] * TN AN ELECTIVE SUPRAGLOTTIC AIRWAY (10/21/2024 8:39 AM CDT) Narrative Clarisa De Leon CRNA - 10/21/2024 8:39 AM CDT Clarisa De Leno CRNA 10/21/2024 8:41 AM Airway Patient location: OR Urgency: elective Date/time: 10/21/2024 8:29 AM Indications for airway management: anesthesia Difficult airway: no Staff: Placed by: EXPEDITER SERVICE ORDER: Clarisa De Leon CRNA Emergent airway documentation: [...] AM CDT) 10/21/2024 6:25 AM CDT Narrative [facility] - 10/21/2024 6:36 AM CDT Vent Rate: 75 bpm RR Interval: 798 msec TN Interval: 0 msec QRS Duration: 150 msec QT Interval: 452 msec QTC Interval: 480 msec P-R-T [place]: 0 - 63 - -64 degrees IMPRESSION: ELECTRONIC VENTRICULAR PACEMAKER ABNORMAL RHYTHM ECG NO CHANGE FROM PREVIOUS TRACING NOTED Electronically Signed By: Taz Ortiz MD Rodo Smyth MD ECG ORDERABLES Final Resul t Britely Glance [facility] * SCAN - OTHER ORDERS (10/14/2024) [...] by: Mynor Constantino M.D. Taran Ramirez MD [facility] MRI PROCEDURES Final Result * MRI Brain [...] Resu lt * Colonoscopy (08/02/2024 1:43 PM CASE FITTER) Anatomical Region Laterality Modality Other Narrative Procedure Note Trey Arroyo MD - 08/02/2024 1:43 PM CST [facility] ENDOS[facility] Patient Name: Naye Cantu Procedure Date: 08/02/2024 1:43 PM Date of : 1965 Admit Type: Outpatient Age: 58 Gender: Female Attending MD: Trey Arroyo M.D. Room: [facility] ENDOSCOPY ROOM 8 Note Status: Finalized [...] scope was passed under direct vision.The CF [id number] endoscope was introduced through the anus and advanced to the terminal ileum. The colonoscopy was performed without difficulty. The patient tolerated the procedure well. The qualityof the bowel preparation was evaluated using the BBPS ([place] Bowel Preparation Scale) with scores of:Right Colon [...] business hours - Please call theNurse Coordinator: [phone] After hours, evening, nights, weekends and holidays- Please call the hospital rock crusher operator at and ask for the GI fellow vocational rehabilitation teacher. Attending Participation: I was present and participated during the entire procedure, including non-patrick portions. Electronically signed by Trey Arroyo MD Trey Arroyo M.D. 08/02/2024 2:08:56 PM . Number of Addenda: 0 Note Initiated On: 08/02/2024 1:43 PM us Trey Arroyo MD ENDOSCOPY PROCEDURES Final Result * Hepatitis C antibody (07/06/2020 2:58 PM CASE FITTER) Hep C Ab NON-REACTI VE NON-REACT GIA [facility] SIGNAL TO CUT-OFF 0.02 <1.00 [facility] Comment: HCV antibody was non-reactive. There is no laboratory evidence of HCV infection. In most cases, no further action is required. However, if recent HCV exposure is suspected, a test for HCV RNA (test code 28575) is suggested. For additional information please refer to http://education.[employer]/faq/SFV32m6 (This link is being provided for informational/ educational purposes only.) Blood specimen (specimen) 07/06/2020 2:58 PM CASE FITTER 07/06/2020 3:00 PM CASE FITTER Narrative [facility] - 07/11/2020 9:33 PM CASE FITTER PATIENT UNABLE TO VOID; ADVISED TO RETURN FOR COLLECTION. us Olga MONTES LAB MICROBIOLOGY - GENERA L ORDERABLES Final Result [facility] [address] [address] [address] from Last 3 Months or Most Recently Relevant to Health Maintenance Insurance MEDICARE [address] [place] [address] [address]IC[address] [place], [place] [address] MEDICARE [facility] [address] [place], [place] [address] MEDICARE [address] [place] [address] MEDICARE [facility] Advance Directives For more information, please contact: [phone] * Full Code (Latest Code Status on [...] 10:10 AM 02/24/2022 4:09 PM Care Teams Aging Room Operator Relationship Specialty Start Date End Date Tom Paz MD PCP - General 09/09/16 Tab Taylor MD [address] [place] [address] Consulting Physician Cardiology 01/03/20 Favian Caceres MD [address] [place] [address] Consulting Physician Rheumatology 08/28/23
--- OUTSIDE RECORDS SUMMARY | 2024-12-16 15:09 | XMS_ITS | Clinical Summary ---
Author Organization [employer] Administrative Offices Address [address] [place] [address] Care Team Providers Care Open Developer Operator Name Role Phone Tom Paz MD Primary Care Provider [phone] Allergies Active Allergy Reactions Criticality Noted Date [...] blisters Etanercept Swelling Low 12/09/2023 Embrel Gum Tmbycr-Nzxqyz-Arrv-Alcoho l Rash Low 12/09/2023 Mastisol - blisters [...] this topic Medical Devices Implanted Type Area Down Filler Device Identifier Shelf Expiration Date Model / Serial / Lot Tyrx Antibacterial Envelope Med [id number] - [id number] Implanted:Qty: 1 on 12/24/2023 at [facility] Mesh Left: Chest [employer]- CARD RHYTHM MGMT 10/01/2024 [id number] / / [id number] Neuro Stimulator Neuro Stimulator [employer] SC-1200 / / Description:leads: SC- Need lead numbers Dc Ppm Gen Implanted:Qty: 1 on 12/24/2023 by Burton Forbes MD at [facility] N/A: Chest Wall [id number] / [id number] / Explanted Type Area Down Filler Device Identifier Shelf Expiration Date Model / Serial / Lot Dc Eluna 8 Ppm Gen Explanted:Qty: 1 on 12/24/2023 by Burton Forbes MD at [facility] Pacemaker Chest Wall [employer] ELUNA 8 KRISTY / [id number] / Description:Implant date: Per [employer] Rep - NOT MRI safe (extra cap lead -ABANDONED LEAD - NO MRI -lizandro 08/14/23 Insurance [address] [place] [address] MEDICARE PART A AND B [facility] [place] [id number] [place] [address] MEDICARE PART A AND B [address] [place] [address] RX [employer] RX Member Subscriber Plan / Payer (Ef fective 2023-Present) Name:Naye Hart Relation to Subscriber:Self Name:Naye Hart Subscriber ID:Not on file Payer ID:Not on file Group ID:[id number] Type:RX Commercial Address: [address] Advance Directives For more information, please contact: [phone] Documents on File Type Date Recorded Patient Slate Picker Expl anation Advance Directive POA 12/24/2023 8:33 AM Ad valenzuela Directive POA * Full Code (Latest Code Status on File) Date Activated Date Inactivated Comments 12/24/2023 3:32 PM 12/25/2023 12:17 PM Care Teams Open Developer Operator Relationship Specialty Start Date End Date Tom Paz MD [address] [place] [address] PCP - General Family Practice 01/28/22
--- NOTE | 2024-12-16 16:46 | ED.NEUROSD ---
HPI - Neuro Symptoms/Deficit General Chief Complaint: Neuro Symptoms/Deficit Stated Complaint: another TIA Time Seen by Provider: 12/16/24 14:52 History of Present Illness HPI Narrative: Patient is a 59-year-old female who presents ER with concerns for TIA. She reports she has had multiple TIAs in the past. She has ambulate device implanted. She also has a pacemaker. She sees a neurologist at [facility] but has not been seen recently. She is not on any anti-platelet medication outside of a baby aspirin. Reports she had broken speech for an hour and since then she feels like she moves to the right side when she walks. Patient has an MRI from [facility] scanned in from September and that was a normal MRI. Related Data Home Medications ?Medication ?Instructions ?Recorded ?Confirmed ?Last Taken ?Type golimumab 50 mg/0.5 mL 50 mg subcut MONTHLY 03/26/23 12/07/24 06/19/23 09:00 History subcutaneous pen injector (Simponi) aspirin 81 mg tablet,delayed 81 mg PO DAILY 07/01/23 12/07/24 Unknown History release mupirocin 2 % topical ointment 1 applic topical BID 07/01/23 12/07/24 Unknown History metoprolol tartrate 50 mg tablet 50 mg PO BID 10/22/23 12/07/24 Unknown History fexofenadine 180 mg tablet 180 mg PO DAILY 10/14/24 12/07/24 Unknown History (Vicky Allergy) tramadol 50 mg tablet 50 mg PO Q6H PRN 10/25/24 12/07/24 Unknown History leflunomide 20 mg tablet 10 mg PO DAILY 11/10/24 12/07/24 Unknown History Allergies Allergy/AdvReac Type Severity Reaction Status Date / Time meclizine Allergy Severe Rash Verified 12/16/24 14:19 carbamazepine (From Tegretol) Allergy Intermediate Blister Verified 12/16/24 14:19 2-octyl cyanoacrylate Allergy Mild Itching Verified 12/16/24 14:19 Cephalosporins Allergy Mild RASH Verified 12/16/24 14:19 clarithromycin Allergy Mild RASH Verified 12/16/24 14:19 imipramine Allergy Mild RASH Verified 12/16/24 14:19 Penicillins Allergy Mild HIVES Verified 12/16/24 14:19 cefuroxime (From Ceftin) Allergy Hives Verified 12/16/24 14:19 etanercept (From Enbrel) Allergy Redness of Verified 12/16/24 14:19 Skin hydromorphone (From Dilaudid) Allergy Hives Verified 12/16/24 14:19 oxycodone (From Percocet) Allergy Hives Verified 12/16/24 14:19 prochlorperazine (From Allergy Swelling Verified 12/16/24 14:19 Compazine) of Lip/Tongue/Throat propoxyphene (From Darvon) Allergy Hives Verified 12/16/24 14:19 propranolol (From Inderal [place]) Allergy Rash Verified 12/16/24 14:19 alcohol (From Mastisol AdvReac Severe Blister Verified 12/16/24 14:19 Adhesive) chloroxylenol (From [place] 7) AdvReac Severe rash Verified 12/16/24 14:19 gum mastic (From Mastisol AdvReac Severe Blister Verified 12/16/24 14:19 Adhesive) methyl salicylate (From AdvReac Severe Blister Verified 12/16/24 14:19 Mastisol Adhesive) storax (From Mastisol AdvReac Severe Blister Verified 12/16/24 14:19 Adhesive) tizanidine AdvReac Intermediate Hallucinati Verified 12/16/24 14:19 ng codeine AdvReac Unknown Vomiting Verified 12/16/24 14:19 diphenhydramine (From AdvReac Vomiting Verified 12/16/24 14:19 Benadryl) hydrocodone (From Vicodin) AdvReac Vomiting Verified 12/16/24 14:19 Review of Systems Review of Systems: All systems reviewed & are unremarkable except as noted in HPI and below Constitutional: Constitutional: Reports no additional constitutional complaints Cardiovascular: Cardiovascular: Reports no additional cardiovascular complaints Respiratory: Respiratory: Reports no additional respiratory complaints Gastrointestinal: Gastrointestinal: Reports no additional gastrointestinal complaints Musculoskeletal: Musculoskeletal: Reports no additional musculoskeletal complaints PMFSH Past Medical History Medical History Inflammation of pyloric mucosa Left shoulder pain Bilateral shoulder pain Stomach ulcer Leg edema, right Bilateral leg paresthesia Knee injury Pain of left femur Knee pain Left thigh pain Coccygeal pain, acute COVID-19 COVID Loss of vision TMJ (temporomandibular joint disorder) Acquired deviated nasal septum Nosebleed Pacemaker Right shoulder pain Witnessed apneic spells Snoring Apnea Chronic GERD Presence of Amulet left atrial appendage closure device Pelvic pain Hematoma of left chest wall Topical med dermatitis Right hand pain Bilateral knee pain Lumbar pain Acute cervical myofascial strain Acute bacterial sinusitis Hypersomnolence Migraine Vomiting DVT (deep venous thrombosis) Flatulence Cervical pain Spasm of lumbar paraspinous muscle MCL sprain of left knee Abrasion of toe Lesion of skin of nose Pneumonia LLQ abdominal pain Knee pain Foreign body in ear BMI 29.0-29.9,adult Lumbar stenosis Foraminal stenosis of lumbar region Pancreatitis Diarrhea Family history of beta thalassemia Inappropriate sinus tachycardia Presence of IVC filter Fibromyalgia Rheumatoid arthritis Anxiety Depression Abnormality of heart beat Ear pain Wears glasses Lightheadedness Vertigo Presence of neurostimulator History of deep vein thrombosis Abdominal bloating Hypoglycemia Allergic reaction to allergy skin test Abdominal lump Anxiety about health Hyponatremia Allergic dermatitis Headache Degenerative joint disease of cervical and lumbar spine TIA (transient ischemic attack) Ataxia A-fib Confusion Atypical face pain D-dimer, elevated Left ear pain Rheumatoid arthritis, seronegative, multiple sites Foreign body of toe Groin pain Groin hematoma Restless leg syndrome Dizziness Lipid disorder Fracture of second toe, left, closed Atopic dermatitis Bradycardia Anemia, unspecified Essential (primary) hypertension Mixed hyperlipidemia Paroxysmal atrial fibrillation RSD (reflex sympathetic dystrophy) SVT (supraventricular tachycardia) Surgical History Surgical History Hx of atrioventricular node ablation History of surgery on left wrist H/O cardiac radiofrequency ablation S/P IVC filter S/P insertion of spinal cord stimulator History of tubal ligation History of endometrial ablation H/O hernia repair Status post surgical removal of both fallopian tubes History of arthroscopic knee surgery History of back surgery History of permanent cardiac pacemaker placement 2019 pacemaker replaced 2023,updated 11/2024 Family History Family History Grandparent Family history of blood dyscrasia Family history of Alzheimer's disease Family history of malignant neoplasm of cervix Mother Family history of Alzheimer's disease Thyroid activity decreased Father Family history of lung cancer Sibling Thyroid activity decreased Other Diabetes mellitus Family history of allergic disorder Family history of kidney disease Family history of malignant neoplasm of thyroid High cholesterol Social History Social History Social History: Caffeine-none Smoking packs per day: 0 Smoking cigarettes per day: 0.0 Years smoked: 0 Smoking pack-years: 0.00 Smoking status: Never smoker Second hand tobacco smoke exposure: No Alcohol intake: never Substance use: never Substance use type: does not use Do You Feel Safe in your Home?: Yes Lack of Transportation: No Lack of Food: Never True Current Housing: I Have Housing Concerned About Future Housing: No Difficulty Paying Gas/Electric Bills: No Difficulty Paying for Meds: No Currently Unemployed: No Education: High School Diploma/GED Difficulty w/ Childcare or Family Care: No Living arrangements: alone Occupation/Education: retired 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 HEAD: Normocephalic, atraumatic. EYES: PERRL and EOMI. ENT: Mucous membranes moist. NECK: Supple. CHEST: Clear to auscultation. No respiratory distress. HEART: Regular rate and rhythm. Normal peripheral pulses. ABDOMEN: Soft, nontender, nondistended. EXTREMITIES: Normal range of motion. No edema. SKIN: Warm, dry, no rash. NEURO: No focal deficits. NIH stroke scale 0. Alert and oriented x3. PSYCH: Normal mood and affect. Course Course Emergency Course: No neurologic abnormality on exam here. Discussed with [facility] Stroke Neurology Dr. Estevez. Recommends 21 day dual anti-platelet treatment with Plavix 75 mg. Low risk TIA. Patient has called and requested an appointment and they do have this in the record. Vital Signs Vital signs: Vital Signs Temperature 98 F 12/16/24 13:03 Pulse Rate 65 12/16/24 13:03 Respiratory Rate 12/16/24 13:03 Blood Pressure 101/75 12/16/24 13:03 Pulse Oximetry 99 12/16/24 13:03 Temperature 98 F 12/16/24 13:03 Pulse Rate 65 12/16/24 13:03 Respiratory Rate 20 12/16/24 13:03 Blood Pressure 101/75 12/16/24 13:03 Pulse Oximetry 99 12/16/24 13:03 MDM - Neuro Symptoms/Deficit Lab Data 12/16/24 14:25 12/16/24 14:25 Labs: Lab Results 12/16/24 Range/Units 14:25 WBC 3.9 L (4.5-10.0) K/mm3 RBC 3.57 L (4.2-5.4) M/mm3 Hgb 12.3 (12.0-15.0) g/dL Hct 36.2 L (37.0-47.0) % MCV 101.4 H (80-100) fl MCH 34.5 H (26-34) pg MCHC 34.0 (32-36) g/dl RDW 13.2 (11.5-14.5) % Plt Count 148 L (150-375) k/mm3 MPV 9.0 (7.4-10.4) fl Immature Gran % (Auto) 0.0 (0-0.5) % Neut % (Auto) 54.7 (45.5-73.1) % Lymph % (Auto) 34.2 (18.3-44.2) % [place] % (Auto) 9.0 H (2.6-8.5) % Eos % (Auto) 1.3 (0-4.4) % Baso % (Auto) 0.8 (0.2-1.2) % Lymph # (Auto) 1.33 (0.9-3.2) K/mm3 [place] # (Auto) 0.4 (0.1-0.6) K/mm3 Eos # (Auto) 0.1 (0-0.3) K/mm3 Baso # (Auto) 0.0 (0.0-0.1) K/mm3 Abs Immat Gran (auto) 0.00 (0.00-0.031) K/mm3 Absolute Neuts (auto) 2.1 (1.3-6.7) K/mm3 Absolute Nucleated RBC 0.000 (0.0-0.012) K/mm3 Nucleated RBC % 0.0 (0.0-0.2) % PT 12.8 (11.1-14.7) Seconds INR 0.9 APTT 34.8 (22.3-36.8) Seconds Sodium 141 (137-145) mmol/L Potassium 4.3 (3.4-5.0) mmol/L Chloride 108 H (98-107) mmol/L Carbon Dioxide 28 (22-30) mmol/L Anion Gap 5 (4-12) mmol/L BUN 30 H D (7-17) mg/dL Creatinine 0.81 (0.7-1.0) mg/dL Estim Creat Clear Calc 65 ml/min Estimated GFR > 60 (59 - ) Glucose 82 (65-110) mg/dL Calcium 10.0 (8.4-10.2) mg/dL Total Bilirubin 0.6 (0.2-1.3) mg/dL AST 29 (14-36) U/L ALT 21 (6-35) U/L Alkaline Phosphatase 52 (38-126) U/L Troponin I < 0.012 (0.000-0.034) ng/mL Total Protein 7.0 (6.3-8.2) g/dL Albumin 4.2 (3.5-5.1) g/dL Imaging Data Radiologist's impression: ITS Impressions Chest X-Ray 12/16/24 14:42 IMPRESSION: No focal infiltrate or effusion. Head CT 12/16/24 14:51 IMPRESSION: 1. No acute intracranial process. 2. Mild scattered white matter hypoattenuation consistent with chronic small vessel ischemic disease. Head/Neck CTA 12/16/24 15:33 IMPRESSION: 1. Normal CTA head. 2. CTA neck. Percent stenosis per NASCET criteria is 20% bilaterally. ECG Data EKG #1: ECG completion date: 12/16/24 ECG completion time: 16:41 EKG Interpretation: normal rate (70), non-specific ST changes, widened QRS and other (Paste) Discharge Plan Discharge Clinical Impression: Brain TIA Patient Disposition: Home Condition: Stable Instructions: Transient Ischemic Attack (ED) Additional Instructions: Follow-up with neurology at [facility] for further treatment evaluation. Return the ER if you have new paralysis, you lose consciousness, or have additional concerns. Patient Language: Occitan Prescriptions: New clopidogrel [Plavix] 75 mg tablet 75 mg PO DAILY Qty: 21 0RF Discontinued celecoxib 400 mg capsule 400 mg PO DAILY Qty: 30 3RF No Action aspirin 81 mg tablet,delayed release (DR/EC) 81 mg PO DAILY mupirocin 2 % ointment 1 applic topical BID promethazine [Promethegan] 25 mg suppository 25 mg RECTAL Q6H PRN (Reason: nausea and vomiting) Qty: 12 1RF metoprolol tartrate 50 mg tablet 50 mg PO BID Simponi 50 mg/0.5 mL pen injector 50 mg SUBCUT MONTHLY Patient Comments: TAKES ON THE 1ST DAY OF THE MONTH Rx Instructions: pt will not restart till 2 weeks post procedure triamcinolone acetonide 0.1 % cream 1 applic topical BID Qty: 80 0RF pramipexole 1 mg tablet 1 mg PO BID Qty: 180 1RF diclofenac sodium 1 % gel See Rx Instructions .ROUTE .COMPLEX Qty: 500 1RF Dose Instruction: APPLY 4 GRAMS TO SINGLE ELBOW, WRIST, OR HAND (INCLUDES PALM/FINGER/BACK OF HAND) 4 TIMES DAILY NEEDED FOR PAIN Rx Instructions: APPLY 4 GRAMS TO SINGLE ELBOW, WRIST, OR HAND (INCLUDES PALM/FINGER/BACK OF HAND) 4 TIMES DAILY NEEDED FOR PAIN tramadol 50 mg tablet 50 mg PO Q6H PRN leflunomide 20 mg tablet 10 mg PO DAILY budesonide 6 mg capsule, extended release 6 mg PO DAILY Qty: 30 1RF baclofen 5 mg tablet 5 mg PO TID 5 Days Qty: 15 0RF albuterol sulfate [ProAir HFA] 90 mcg/actuation HFA aerosol inhaler 1 inh inhalation Q4H PRN (Reason: shortness of breath or wheezing) Qty: 6.7 3RF epinephrine [EpiPen 2-Ranulfo] 0.3 mg/0.3 mL auto-injector 0.3 mg IM ONCE PRN (Reason: Allergic Reaction) Qty: 2 0RF Rx Instructions: as a single dose; may repeat once duloxetine [Cymbalta] 60 mg capsule,delayed release(DR/EC) 60 mg PO HS Qty: 90 1RF lidocaine 5 % adhesive patch,medicated 1 patch topical DAILY Qty: 15 0RF Rx Instructions: leave on most painful area for up to 12 hrs ondansetron 4 mg tablet,disintegrating 4 mg PO Q8H PRN (Reason: nausea and vomiting) Qty: 20 0RF montelukast [Singulair] 10 mg tablet 10 mg PO DAILY Qty: 90 2RF Patient Comments: QAM rosuvastatin 40 mg tablet 40 mg PO DAILY Qty: 90 2RF nitroglycerin [Nitrostat] 0.4 mg tablet, sublingual 0.4 mg sublingual Q5MIN PRN (Reason: Chest Pain) Qty: 25 0RF fexofenadine [Vicky Allergy] 180 mg tablet 180 mg PO DAILY ropinirole 1 mg tablet 1 mg PO TID Qty: 270 1RF pantoprazole 40 mg tablet,delayed release (DR/EC) See Rx Instructions .ROUTE .COMPLEX Qty: 90 0RF Dose Instruction: TAKE 1 TABLET (40 MG) ORALLY EVERY DAY AT BEDTIME Rx Instructions: TAKE 1 TABLET (40 MG) ORALLY EVERY DAY AT BEDTIME hydroxyzine HCl 25 mg tablet 25 mg PO Q8H Qty: 30 3RF Rx Instructions: remain on 3mo supply sucralfate [Carafate] 1 gram tablet 1 g PO BID Qty: 60 0RF Follow-up/Referrals: Tom Paz MD [Primary Care Provider] - 1 Week
--- NOTE | 2024-12-16 16:49 | PC.NURSE ---
Ambulatory in [place] with slow steady gait.
[2024-12-16 17:23] VITALS: BP 104/81; PULSE 70; RESP 16; O2SAT 99
== END 2024-12-16 17:25 | disposition home or self-care (01) ==
PROVIDERS: Emergency Provider Emergency Medicine; PCP Family Medicine
DX: G45.9 Transient cerebral ischemic attack, unspecified (principal); I10 Essential (primary) hypertension; I48.0 Paroxysmal atrial fibrillation; E78.2 Mixed hyperlipidemia; D64.9 Anemia, unspecified; K21.9 Gastro-esophageal reflux disease without esophagitis; M79.7 Fibromyalgia; M06.09 Rheumatoid arthritis without rheumatoid factor, multiple sites; G25.81 Restless legs syndrome; F41.9 Anxiety disorder, unspecified; F32.A Depression, unspecified; Z96.82 Presence of neurostimulator; Z95.0 Presence of cardiac pacemaker; Z86.16 Personal history of COVID-19; Z87.01 Personal history of pneumonia (recurrent); Z86.718 Personal history of other venous thrombosis and embolism; Z79.82 Long term (current) use of aspirin
CPT/HCPCS: 36415; 70450; 70496; 70498; 71045; 80053; 84484; 85025; 85610; 85730; 93005; 99284; Q9967

== ENCOUNTER 2025-01-12 08:31 | Outpatient (CLI) | payer MEDICARE, MEDICAID, SELFPAY | END 2025-01-12 08:32 | disposition home or self-care (01) | LOC: ANHAUDASC 08:32 | PROVIDERS: PCP Family Medicine; Visit Provider Otolaryngology | DX: H69.92 Unspecified Eustachian tube disorder, left ear (principal); H90.6 Mixed conductive and sensorineural hearing loss, bilateral; R04.0 Epistaxis | CPT/HCPCS: 92557; 92567 ==

== ENCOUNTER 2025-02-13 08:01 | Outpatient (CLI) | payer MEDICARE, MEDICAID, SELFPAY ==
--- OUTSIDE RECORDS SUMMARY | 2025-02-13 08:11 | XMS_ITS | Patient Health Record ---
Author Organization [facility] [employer] Address [address] [place] [address] Care Team Providers Care Hematology Technologist Name Role Phone Tamar Rene Unavailable [phone] Reason For Referral No Information Medications Medication SIG (Take, Route, Frequency, Duration) Notes Start Date End Date Status Rosuvastatin Calcium 20 MG Oral Active Sulfamethoxazole-Trimeth oprim 800-160 MG Oral Active Promethazine HCl 25 MG Rectal Active DULoxetine HCl 30 MG Oral Active Celecoxib 100 MG Oral Act antionette Hydrocortisone-Acetic Acid 1-2 % Otic Active DULoxetine HCl 60 MG Oral Active Warfarin Sodium 2.5 MG Oral Active Azithromycin 250 MG Oral Active Warfarin Sodium 1 MG Oral Active Omeprazole 20 MG Oral Act antionette Suprep Bowel Prep Kit 17.5-3.13-1.6 GM/177ML Oral Activ e Meloxicam 15 MG Oral Acti ve metroNIDAZOLE 500 MG Oral Active Diclofenac Sodium 1% Transdermal Active Diphenoxylate-Atropine 2.5-0.025 MG Oral Active Ciprofloxacin HCl 500 MG Oral Active Baclofen 5 mg ORAL Active Triamcinolone Acetonide 0.50% External Active Nitroglycerin 0.4 MG Sublingual Active metroNIDAZOLE 1 % External Ac tive Montelukast Sodium 10 MG Oral Active EPINEPHrine 0.3 MG/0.3ML Injection Active MUPIROCIN CALCIUM 2 % TOPICAL CREAM *Reorder from ZEB for eRx and Interaction Alerts* Active Creon 36,000-114,000- 180,000 unit Oral *Pick strength-form from ZEB for eRX* Active Flowflex COVID-19 Ag Home Test In Vitro *Reorder from ZEB for eRx and Interaction Alerts* Active Diclofenac Sodium 50 MG Oral Active predniSONE 10 MG Oral Act antionette Omeprazole 40 MG Oral Act antionette Furosemide 20 MG Oral Act antionette Morphine Sulfate 15 MG Oral Active traMADol HCl 50 MG Oral A ctive Metoprolol Succinate ER 50 MG Oral Active Buprenorphine 7.5 mcg/hour Transdermal *Pick strength-form from ZEB for eRX* Active Colestipol HCl 1 GM Oral Active Azelastine HCl 137 MCG/SPRAY Nasal Active Simponi 50 mg/0.5 mL Subcutaneous Active predniSONE 20 MG Oral Act antionette Ibuprofen 600 MG Oral Act antionette Warfarin Sodium 3 MG Oral Active ENBREL SURECLICK 50 MG/ML (1 ML) SUBCUTANEOUS PEN INJECTOR *Reorder from ZEB for eRx and Interaction Alerts* Active Metoprolol Tartrate 50 MG Oral Active Doxycycline Hyclate 100 MG Oral Active ProAir HFA 108 (90 Base) MCG/ACT Inhalation Active hydrOXYzine HCl 25 MG Oral Active AZELASTINE 205.5 MCG (0.15 %) NASAL SPRAY *Reorder from ZEB for eRx and Interaction Alerts* Active Buprenorphine 5 mcg/hour Transdermal *Pick strength-form from ZEB for eRX* Active rOPINIRole HCl 1 MG Oral Active Methocarbamol 750 MG Oral Active Metoprolol Succinate ER 25 MG Oral Active tiZANidine HCl 2 MG Oral Active Enoxaparin Sodium 40 MG/0.4ML Subcutaneous Active Fluorouracil 5 % External Act antionette Ciprofloxacin HCl 0.30% Ophthalmic Active Sucralfate 1 GM Oral Acti ve Pantoprazole Sodium 40 MG Oral Active buPROPion HCl ER (XL) 150 MG Oral Active levoFLOXacin 500 MG Oral Active Paxlovid (300/100) 20 x 150 MG & 10 x 100MG Oral *Reorder from ZEB for eRx and Interaction Alerts* Active methylPREDNISolone 4 MG Oral Active Methotrexate 2.5 MG Oral Active predniSONE 5 MG Oral Acti ve Nitrofurantoin Monohyd Macro 100 MG Oral Active Nystatin 100346 UNIT/GM External Active Folic Acid 1 MG Oral Acti ve Plan Of Treatment No Information Insurance Providers Payer Name Payer Address Payer Phone Subscriber Number Group Number Insured Name Patient Relationship to Insured Coverage Start Date Coverage End Date Medicare-I l Medicare [address] [place] [phone] [id number] ALONDRAJERRY ALEJANDRENA Self - patient is the insured Medicaid-I l Medicaid [address] [address] [facility] [address] [id number] ALONDRAJERRY ALEJANDRENA Self - patient is the insured
--- OUTSIDE RECORDS SUMMARY | 2025-02-13 08:11 | XMS_ITS | Data Portability ---
Author Organization [facility] [employer], Main Office Address [address] [place] [address] Care Team Providers Care Monumental Stonemason Name Role Phone ANGEL DIETZ Primary Care Provider ANGEL DIETZ Referring Provider Assessment Encounter Date Assessment Date Assessment LastModified by Organization Details LastModified Time 04/20/2023 04/20/2023 This note is dictated and transcribed by [employer]. Rework Machine Operator variances may occur. Despite proofreading, typographical errors may occur. Not available 04/20/2023 12:45:53 04/27/2023 04/27/2023 This note is dictated and transcribed by [employer]. Rework Machine Operator variances may occur. Despite proofreading, typographical errors may occur. Not available 04/27/2023 10:35:53 Plan of Treatment [...] By Organization Details Last Modified Time 04/20/2023 [id number] plantar warts: care instructions [email or web address] Not available 04/20/2023 12:46:05 Reason for Referral None Reported. Results Created Date Observation Date Name Description Value Unit Range Abnormal Flag Note LastModifiedBy Organization Detail LastModifiedTime 09/21/1909/20/2020 pregn duglas test, urine ur preg negati ve TESTI NG PERFO RMED BY SURGI SIS SERVI BETHEL PERSO NNEL. Not Available [facility] (Lab) [address] [place], [address], 09/20/2020 10:02:45 09/21/19 21 09/20/2020 pregn duglas test, urine lot no. [id number] Not Available [facility] (Lab) [address] [place], [address], 09/20/2020 10:02:45 09/21/1909/20/2020 pregn duglas test, urine pos QC positi ve Not Available [facility] (Lab) [address] [place], [address], 09/20/2020 10:02:45 09/21/19 21 09/20/2020 pregn duglas test, urine neg QC negati ve Not Available [facility] (Lab) [address] [place], [address], 09/20/2020 10:02:45 Result Notes None recorded. Problems Name Problem SNOMED Code Status Onset Date Resolution Date Notes Provider Name and Address Organization Details Recorded Time Dysmenorrh ea 623229517 Active Not Available [facility] 3 01:01:15 Lesion of vulva 782988113 Active Not Available [facility] 3 01:01:16 Menorrhagi a 949316969 Active Not Available [facility] 3 01:01:16 Vulvitis 69328723 Active Not Available [facility] 3 01:01:16 Plantar wart of left foot 2129965300775 9102 Active 2022 You Pierce DPM [address], [address] [address], [place], [address] , [employer] [facility] [employer] 3 14:40:48 Blister of foot without infection 1847063 Active 2022 You Pierce DPM [address], [place], [address] , [facility] [employer] 3 10:36:11 Problem Notes None recorded. 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 Not Available [facility] 09/17/2022 00:49:08 020 Date of Last Pap Smear completed Not Available [facility] 09/17/2022 00:48:57 019 Pacemaker completed Not Available [facility] 09/17/2022 00:49:08 019 Most Recent Mammogram completed Not Available [facility] 09/17/2022 00:48:58 017 Hernia Repair completed Not Available [facility] 09/17/2022 00:49:08 013 RED CROSS WORKER Surgery completed Not Available [facility] 09/17/2022 00:49:08 989 RED CROSS WORKER Surgery completed Not Available [facility] 09/17/2022 00:49:08 back fusion completed Not Available [facility] 09/17/2022 00:49:08 insertion of inferior vena caval filter completed Not Available [facility] 09/17/2022 00:49:08 neurostimulation of spinal cord tissue completed Not Available [facility] 09/17/2022 00:49:08 operation on heart completed Cherie Guan [employer] [facility] [employer] 04/13/2023 12:15:22 Imaging Results None recorded. Procedure Notes None recorded. Medical Equipment None Reported. Allergies Allergen ID Allergen Name Allergen Category Reaction Reaction Severity Criticality Documentation Date Start Date Code Code System Note Provider Name and Address Organization Details Recorded Time 1925 acetamino phen / hydrocodo ne medicatio n vomiting mild Not available 09/17/2022 04647 2 RxNorm Not Available [facility] 3 01:18:15 1927 Tylenol with Codeine medicatio n vomiting severe Not available 09/17/2022 98084 6 RxNorm Not Available [facility] 3 01:18:15 1928 acetamino phen / oxycodone medicatio n hives severe Not available 09/17/2022 33133 3 RxNorm Not Available [facility] 3 01:18:16 1929 Product containin g penicilli n (product) medicatio n hives severe Not available 09/17/2022 85401 8001 SNOMED Not Available [facility] 3 01:18:16 1930 meclizine medicatio n anaphylax is severe Not available 09/17/2022 6676 RxNorm aller gy previ ously marke d as life -thre ateni ng Not Available [facility] 3 01:18:16 1931 Inderal medicatio n rash severe Not available 09/17/2022 49649 0 RxNorm Not Available [facility] 3 01:18:16 1932 imipramin e Not available hives moderate Not available 09/17/2022 5691 RxNorm Not Available [facility] 3 01:18:16 1933 Dilaudid medicatio n other moderate Not available 09/17/2022 91158 3 RxNorm Not Available [facility] 3 01:18:16 1934 propoxyph giovanny hydrochlo ride medicatio n hives severe Not available 09/17/2022 81065 RxNorm Not Available [facility] 3 01:18:16 1935 Acetamino phen / Propoxyph giovanny medicatio n hives severe Not available 09/17/2022 52281 RxNorm Not Available [facility] 3 01:18:16 1936 Compazine medicatio n anaphylax is severe Not available 09/17/2022 33090 6 RxNorm [facility] 12:11[facility]18 193 Ceftin medicatio n hives severe Not available 09/17/2022 74911 6 RxNorm Not Available [facility] 3 01:18:17 1938 Biaxin medicatio n hives severe Not available 09/17/202223697 9 RxNorm [facility] 3 12:11:04 193 Benadryl medicatio n hives severe Not available 09/17/202260485 7 RxNorm Not Available [facility] 3 01:18:17 30452 carbamaze pine medicatio n Not available Not available Not available 04/13/20232001 RxNorm [facility] 3 12:12:00 11001 Cephalosp meir (substanc e) medicatio n Not available Not available Not available 04/13/2023 85090 7003 SNOMED [facility] 3 12:12:08 76240 clarithro mycin medicatio n Not available Not available Not available 04/13/2023 84032 RxNorm [facility] 3 12:12:23 63264 hydromorp rosa maria medicatio n Not available Not available Not available 04/13/2023 3423 RxNorm [facility] 3 12:12:35 Medications Name Sig Start [...] Body height Body temperature Body weight Systolic And Diastolic Provider Name and Address Organization Details Last Updated DateTime 10/03/2020 28.6 kg/m2 172.72 cm 96.5 [degF] 76231.3 7 g 120/78 mm[Hg] Not Available [facility] 3 00:52:32 Date Recorded Body height Body mass index (BMI) Body weight Heart rate Respiratory rate Oxygen saturation Oxygen saturation in Arterial blood by Pulse oximetry Systolic And Diastolic Provider Name and Address Organization Details Last Updated DateTime 3 172.72 cm 28.7 kg/m2 26002.9 6 g 82 /min 14 /min 99 % 99 % 128/82 mm[Hg] Cherie Guan [facility] [employer] [facility] [employer] [facility] 3 12:00:54 Date Recorded Body height Body mass index (BMI) Body weight Heart rate Respiratory rate Oxygen saturation Oxygen saturation in Arterial blood by Pulse oximetry Systolic And Diastolic Provider Name and Address Organization Details Last Updated DateTime 3 172.72 cm 28.7 kg/m2 51683.9 6 g 70 /min 14 /min 98 % 98 % 102/66 mm[Hg] Cherie Guan [facility] [employer] [facility] 3 12:31:41 Date Recorded Body height Body mass index (BMI) Body weight Heart rate Respiratory rate Oxygen saturation Oxygen saturation in Arterial blood by Pulse oximetry Systolic And Diastolic Provider Name and Address Organization Details Last Updated DateTime 3 172.72 cm 28.7 kg/m2 94922.9 6 g 73 /min 14 /min 98 % 98 % 112/75 mm[Hg] Cherie Guan [facility] [employer] [facility] [employer] [facility] 3 09:23:27 Social History Question Answer Notes LastModified by [employer] Details LastModified Time Tobacco Smoking Status Never Smoker Not Available [facility] 09/17/2022 00:46:36 What Is Your Level Of Caffeine Consumption? None [id number] Information not available 09/17/2022 In The 14 Days Before Symptom Onset, Have You Had Close Contact With A Laboratory-confirm ed COVID-19 While That Case Was Ill? No [id number] Information not available 09/17/2022 In The 14 Days Before Symptom Onset, Have You Had Close Contact With A Person Who Is Under Investigation For COVID-19 While That Person Was Ill? No [id number] Information not available 09/17/2022 Which Illicit Or Recreational Drugs Have You Used? None [id number] Information not available 09/17/2022 What Was The Date Of Your Most Recent Tobacco Screening? 04/13/2023 Information not available 04/13/2023 Has Tobacco Cessation Counseling Been Provided? No Information not available 04/13/2023 Sex: Unknown Functional Status Question Answer Note LastModified by [employer] Details LastModified Time Do you use any illicit or recreational drugs? No Information not available 04/13/2023 Do you or have you ever used any other forms of tobacco or nicotine? No Information not available 04/13/2023 What is your level of alcohol consumption? None [id number] Information not available 09/17/2022 What is your exercise level? Occasional [id number] Information not available 09/17/2022 Mental Status None recorded. Family History Relationship Description Onset Age of this Age Resolved Age Notes LastModified by Organization Details LastModified Time Paternal Grandmother Malignant tumor of cervix [id number] Not available 09/17/2022 00:49:12 Medical History Condition [...] SNOMED-CT Code Diagnosis ICD10 Code Diagnosis Note [id number] [facility]_Histor ic_[facility] _ATHENA_M IGRATION_ DEFAULT_1 _1 , 10/03/2020 00:00:00 10/03/2020 09:44:02 [id number] You Pierce DPM [facility] [place] [place] [facility] [place] [address] [place] [address] 04/13/2023 11:53:16 04/14/2023 11:39:07 Plantar wart of left foot [id number] 6714870 B07.0 educated on treatment optionsSal icylic acid applied to the wart todaypatie nt advised to use salicylic acid over-the-c ounter daily until blistering occurs then discontinu e provide wound care to prevent infectionF ollow-up in 1 week [id number] You Pierce DPM [facility] [place] [address] [place] [address] 04/20/2023 12:25:47 04/20/2023 12:47:37 Plantar wart of left foot 7377633564 3562398 B07.0 educated on treatment optionsSal icylic acid 30% applied to the wart todaypatie nt advised to use salicylic acid over-the-c ounter daily until blistering occurs then discontinu e provide wound care to prevent infectionF ollow-up in 1 week [id number] You Pierce DPM [facility] [place] [address] [facility] [address] [place] [address] 04/27/2023 09:10:20 04/27/2023 10:38:12 Plantar wart of left foot 1785841236 6620091 B07.0 Discontinu e salicylic acidallow the area to healfollow -up 2 weeks Blister of foot without infection 1645414 S90.822A secondary to use of salicylic acid [...] Recorded Advance Directives Directive None Recorded Payers Insurance Date Sequence Insurance Name Policy Number Policy Powers Covered Member ID Powers Member ID Guarantor Name 06/19/2023 1 [place] Naye S Tanner [id number] Naye S Tanner 06/19/2023 2 [place] Naye S Tanner [id number] Naye S Tanner OBGyn Episode No OBEpisode recorded.
--- OUTSIDE RECORDS SUMMARY | 2025-02-13 08:12 | XMS_ITS | Patient Health Record ---
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) Active confirmed Problem Localized, primary osteoarthritis of the pelvic region and thigh (331467781) Unilateral primary osteoarthritis, left hip (M16.12) Active confirmed Problem Solitary sacroiliitis (730361026) Sacroiliitis, not elsewhere classified (M46.1) Active confirmed Problem Cervical radiculopathy (87750039) Radiculopathy, cervical region (M54.12) Active confirmed Problem Cervical radiculopathy (42417145) Radiculopathy, cervicothoracic region (M54.13) Active confirmed Problem Lumbosacral radiculopathy (6010260) Radiculopathy, lumbosacral region (M54.17) Active confirmed Plan Of Treatment No Information Insurance Providers Payer Name Payer Address Payer Phone Subscriber Number Group Number Insured Name Patient Relationship to Insured Coverage Start Date Coverage End Date MEDICARE SERVICES [address] [address] [place] [address] [id number] Naye Hart Self - patient is the insured 0 IPA [address] [address] [place] [address] [id number] Naye Hart Self - patient [...]
--- OUTSIDE RECORDS SUMMARY | 2025-02-13 08:12 | XMS_ITS | Encounter Summary ---
Author Organization [facility] Address [address] [place] [address] Phone Care Team Providers Care Magnetic Prospector Name Role Phone Tom Paz MD Primary Care Provider [phone] Tab Taylor MD Unavailable [phone] Favian Caceres MD Unavailable [phone] Encounter Details Date Type Department Care Team (Latest Contact Info) Description 01/24/2025 Results Follow-Up [facility] [address] [place] [address] Claudia Cristobal, SIMON [address] [place] [address] CBC with auto differential, Comprehensive metabolic panel Social History Tobacco Use Types Packs/Day Years Used Date Smoking Tobacco: Never Passive Smoke Exposure: Past Smokeless Tobacco: Never Alcohol Use Standard Drinks/Week Comments No 0 (1 standard drink = 0.6 oz pur e alcohol) [place] [employer] Answer Date Recorded In the past 12 months has [employer], gas, oil, or water company threatened to [...] often do you attend chur ch or orthodoxy services? More than 4 times per year 02/11/2024 Do you belong to any clubs o r organizations such as taoist groups, unions, fraternal or athletic groups, or school groups? No 02/11/2024 How often do you attend meet ings of the clubs or organizations you belong to? Never 02/11/2024 Are you , , di vorced, , never , or living with a partner? 02/11/2024 [employer]-C Answer Date Recorded Q1: How often do you have a drink containing alcohol? Never 01/06/2025 Q2: How many drinks containi ng alcohol do you have on a typical day when you are drinking? Patient does not drink Q3: How often do you have si x or more drinks on one occasion? Never 01/06/2025 Overall Financial Resource Strain (CARDIA) Answe r [...] in the past 12 m [facility], were you homeless or living in [...] on file Legal Sex Female 12:21 AM PATIENT [employer] Gender Identity Not on file Sexual Orientation Not on file documented as of this encounter Plan of Treatment Scheduled Procedures Name Priority Associated Diagnoses Date/Ti me DRUG INDUCED SLEEP ENDOSCOPY EVAL FLEX DIAG Obstructive sleep apnea documented as of this encounter Goals Goal [...] on filedocumented in this encounter Care Teams Magnetic Prospector Relationship Specialty Start Date End Date Tom Paz MD PCP - General 09/09/16 Tab Taylor MD [address] [place] [address] Consulting Physician Cardiology 01/03/20 Favian Caceres MD [facility] [place] [address] Consulting Physician Rheumatology 08/28/23 documented as of this encounter
--- OUTSIDE RECORDS SUMMARY | 2025-02-13 08:12 | XMS_ITS | Encounter Summary ---
Author Organization [facility] Address [address] [place] [address] Care Team Providers Care Thread Marker Name Role Phone Tom Paz MD Primary Care Provider [phone] Tab Taylor MD Unavailable Favian Caceres MD Unavailable Reason for Visit * Reason Onset Date Comments Scheduling Appointments 04/15/2024 Schedule patient for Imaging Genicular RFA Right (33933) and 1m follow Encounter Details Date Type Department Care Team (Late st Contact Info) Description 04/15/2024 Telephone [facility] [address] [address], [address] [place] [address] Dougie Lord MD [address] [address] Scheduling Appointments (Schedule patient for Imaging Genicular RFA Right (03415) and 1m follow ) Social History Tobacco Use Types Packs/Day Years Used Date Smoking Tobacco: Never Passive Smoke Exposure: Past Smokeless Tobacco: Never Alcohol Use Standard Drinks/Week Comments No 0 (1 standard drink = 0.6 oz pur e alcohol) [facility] Util[facility] Answer Date Recorded In the past 12 months has [employer], gas, oil, or water [employer] threatened to shut off services in your [...] any clubs o r organizations such as sikhism groups, unions, fraternal or athletic groups, or [...] place to sleep or slept in a snf (including now)? No 11/02/2023 Housing Stability Vital Sign Answer Thang e Recorded In the last 12 months, was t here a time when you were not able to pay the mortgage or rent on time? No 02/11/2024 In the past 12 months, how m any times have you moved where you were living? 0 02/11/2024 At any time in the past 12 m [facility], were you homeless or living in a snf (including now)? No 02/11/2024 Personal Safety Answer Date Recorded Have you ever been in or are you currently in a harmful physical or emotional relationship or is someone making you feel afraid or unsafe? 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
--- OUTSIDE RECORDS SUMMARY | 2025-02-13 08:12 | XMS_ITS | Patient Health Record ---
Author Organization [facility] Orthopedics [facility] Address [address] [place], [place] [id number] Care Team Providers Care Musculoskeletal Physiotherapist Name Role Phone Jackson BRYANT, Tom Primary Care Provider [phone] Cecilia Nicole Unavailable [phone] ALLERGIES Allergen (clinical drug ingredient) Drug/Non Drug [...] osteoarthritis of right knee (M17.11) Active confirmed [id number] Problem Closed nondisplaced fracture of acromial end of left clavicle, initial encounter (S42.035A) Active confirmed [id number] Problem Closed nondisplaced fracture of acromial end of left clavicle with routine healing, subsequent encounter (S42.035D) Active confirmed [id number] Problem Right hip pain (M25.551) Active confirmed Right hip pain ([id number]) Problem Left hip pain (M25.552) Active confirmed Arthralgia of t he pelvic region and thigh ([id number]) Problem Primary localized osteoarthritis of right knee (M17.11) Active confirmed Primary osteoarthritis (583882997) Problem Pes anserine bursitis (M70.50) Active confirmed [id number] PLAN OF TREATMENT Pending Test Test Name Order Date X ray : Hip, left, 2 02/24/2018 X ray : Hip, right, 2 02/24/2018 X ray : Knee, right 3 views 11/30/2017 Insurance Providers Payer Name Payer Address Payer Phone Subscriber Number Group Number Insured Name Patient Relationship to Insured Coverage Start Date Coverage End Date Medicare Services [address] [address] [place] [address] [id number] Naye Hart Self - patient is the insured 0 Medicaid [address] [place] [address] [id number] Naye Hart Self - patient is the [...]
--- OUTSIDE RECORDS SUMMARY | 2025-02-13 08:12 | XMS_ITS | Clinical Summary ---
Author Organization [facility] Address [address] [place] [address] Care Team Providers Care Welt Pocket Machine Operator Name Role Phone Tom Paz MD Primary Care Provider [phone] Tiago Vargas MD, Hugo P Unavailable [phone] Allergies Active Allergy Reactions Criticality Noted Date [...] on file Legal Sex Female 10:47 AM CONFIDENTIAL SECRETARY Gender Identity Not on file Sexual Orientation [...] 11:56 PM CDT Height 170.2 cm (5' 7) 04/05/2024 11:56 PM CDT Body Mass Index 29.6 04/05/2024 11:56 PM CDT Plan of Treatment Upcoming Encounters Date Type Department Care Team (Late st Contact Info) Description 07/04/2025 10:00 AM CONFIDENTIAL SECRETARY Office Visit [facility] - [address], [address] [place] [id number] Gopi Luna MD [address] [place] [address] Health Maintenance Due Date Last Done Comments [...] Vaccines (1 of 2) 2014 COVID-19 Vaccine (1 - 2023-2 5 season) 2024 RSV Immunization [...] this topic Medical Devices Implanted Type Area Pipe Organ Mechanic Apprentice Device Identifier Shelf Expiration Date Model / Serial / Lot Ivc Filter Filter Pacemaker Pacemaker BIOTRONIK Spinal Cord Stimulator Implant Stimulator Implant Insurance MEDICARE MEDICAID Care Teams Welt Pocket Machine Operator Relationship Specialty Start Date End Date Tom Paz MD [address] [address] PCP - General 09/29/22 Hugo Ordoñ[place] [id number] [phone] CARDIOVASCULAR DISEASE 07/15/23
--- OUTSIDE RECORDS SUMMARY | 2025-02-13 08:12 | XMS_ITS | Patient Health Record ---
Author Organization [facility] Address [address] [place], [place] [id number] Care Team Providers Care Retirement Assistant Name Role Phone CATHI SILVA Unavailable [phone] Tom Paz Unavailable Unavailable CATHI BYNUM Unavailable [phone] Allergies Allergen (clinical drug ingredient) Drug/Non Drug Allergy documented on EMR Reaction Allergy Type Onset Date Status ChloraPrep One Step Unknown Drug Allergy Active Dermabase Unknown Drug Allergy Active Mastisol Adhesive Unknown Drug Allergy Active carbamazepine Carbamazepine Unknown Drug Allergy Active Medicinal cephalosporin and acting as antibacterial agent (FN) Cephalosporins Unknown Drug Allergy Active chlorhexidine Chlorhexidine Unknown Drug Allergy Active clarithromycin Clarithromycin Unknown Drug Allergy Active codeine Codeine Unknown Drug Allergy Active hydrocodone Hydrocodone Unknown Drug Allergy Act antionette imipramine Imipramine Unknown Drug Allergy Activ e meclizine Meclizine Unknown Drug Allergy Active oxycodone Oxycodone Unknown Drug Allergy Active Penicillin Unknown Drug Allergy Active prochlorperazine Prochlorpdavidzine Unknown Drug Allergy Active propoxyphene Propoxyphene Unknown Drug Allergy A ctive propranolol Propranolol Unknown Drug Allergy Act antionette tizanidine Tizanidine Unknown Drug Allergy Activ e Reason For Referral No Information Medications Medication SIG (Take, Route, Frequency, Duration) Notes Start Date End Date Status Pantoprazole Sodium 40 MG Oral; Duration: 90 Days Active Metoprolol Tartrate 50 MG Oral; Duration: 90 Days Active hydrOXYzine HCl 25 MG Oral; Duration: 90 Days Active Nitroglycerin 0.4 MG Sublingual; Duratio n: 30 Days Active Celecoxib 200 MG Oral; Duration: 30 Days Active rOPINIRole HCl 1 MG Oral; Duration: 90 Days Active Montelukast Sodium 10 MG Oral; Duration: 90 Days Active Rosuvastatin Calcium 40 MG Oral; Duration: 90 Days Active Encounters Encounter Location Date Provider Diagnosis [facility] [address] [place], [place] [id number] 09/19/2024 CATHI SILVA Tinea pedis B35.3 ; Acquired keratosis [keratoderma] palmaris et plantaris L85.1 ; Metatarsalgia, right foot M77.41 ; Metatarsalgia, left foot M77.42 ; Other eczema L30.8 ; Pain in right foot M79.671 and Left foot pain M79.672 [facility] [address] [facility] [address] [place], [place] [id number] 09/21/2024 CATHI SILVA Assessments Encounter Date Diagnosis (ICD Code) Assessment Notes Treatment Notes Treatment Clinical Notes Section Notes 09/19/2024 Tinea pedis (ICD-10 - B35.3) Tinea Pedis: Tinea pedis (athlete's foot) is a dermatologic fungal infection that typically affects the epidermis and is the most common dermatophyte infection. Tinea pedis is transmitted via direct skin contact, contaminated floors, towels and clothing/shoes and thrives in warm, moist environments. Approximately 26.5 million people are affected annually. Nearly half of these people will suffer from multiple episodes for years. Interdigital tinea pedis presents as erythematous, pruritic, scales or erosions between toes. [place]-type tinea pedis affects the soles and medial and lateral sides of the feet and often is itchy, hyperkeratotic and flaking. Inflammatory tinea pedis is characterized by pruritic erythematous, painful vesicles or bullae most commonly on the medial foot. Treatment varies from OTC preparations to a large variety of topical and oral medications. Patient education and proper foot hygiene are important components to the successful treatment of this infection. 09/19/2024 Acquired keratosis [keratoderma] palmaris et plantaris (ICD-10 - L85.1) Hyperkeratosis: The skin was prepped with isopropyl alcohol. Using a 15-blade scalpel, the hyperkeratotic skin lesions were sharply debrided down to healthy appearing skin. Emollient: Recommend that the patient use an emollient such as [id number] Eucerin cream, Vanicream, or other lotion to the affected area. 09/19/2024 Metatarsalgia, right foot (ICD-10 - M77.41) Metatarsalgia: I discussed anti-inflammatory treatment options and various means of immobilization with the patient. I educated the patient on icing and stretching, supportive shoegear, and the use of orthotic devices and bracing. PowerStep Inserts: The patient was dispensed and fitted with over the counter arch supports. The patient was educated on their use and effect. All questions were answered. 09/19/2024 Metatarsalgia, left foot (ICD-10 - M77.42) 09/19/2024 Other eczema (ICD-10 - L30.8) 09/19/2024 Pain in right foot (ICD-10 - M79.671) 09/19/2024 Left foot pain (ICD-10 - M79.672) Plan Of Treatment No Information Insurance Providers Payer Name Payer Address Payer Phone Subscriber Number Group Number Insured Name Patient Relationship to Insured Coverage Start Date Coverage End Date Medicare Part B [facility] [address] [place] [address] [id number] Naye Hart Self - patient is the insured 0 Medical (General) History Medical History History ICD Code fibromyalgia anemia Leg/Feet cramps stroke rheumatoid arthritis Heart Disease Blood clots restless leg syndrome Back Trouble low blood pressure Surgical History Surgery Date(Month/Year) Tubal Ligation Pacemaker Hernia
--- OUTSIDE RECORDS SUMMARY | 2025-02-13 08:12 | XMS_ITS | Referral Summary ---
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 is intact. Note of insertional enthesopathic cystic change. The supraspinatus and infraspinatus cuff tendons are intact without evidence of tendinopathy or tear. On this nonarthrographic evaluation, the labrum and bicipital anchor appear intact. Mild tendinopathy of the intra-articular biceps tendon with possible longitudinal tear. Minimal chondrosis without glenohumeral chondral defect or subchondral marrow edema. There is a physiologic amount of fluid within the glenohumeral joint. No loose bodies are identified. The bone marrow signal is normal. IMPRESSION: 1. Mild right subacromial-subdeltoid bursitis. 2. Mild acromioclavicular osteoarthritis. 3. Mild tendinopathy of the intra-articular biceps tendon with possible longitudinal tear. Dictated by: Nehemias Simons D.O. The radiology attending physician has personally reviewed this study, and had reviewed and/or edited this written report and agrees with it. Electronically signed by: Antoine Martínez M.D. Andrea Moran MD IM MRI PROCEDURES Final Res ult * XR Spine Thoracolumbar Junction 2 or More Views (01/11/2025 9:46 AM CDT) Anatomical Region Laterality Modality Spine N/A Computed Radiogr aphy 01/11/2025 9:52 AM CDT Impressions 01/11/2025 9:52 AM CDT 1. Intact spinal stimulator device. Electronically signed by: Aaron Tran D.O. Narrative 01/11/2025 9:52 AM CDT EXAMINATION: XR SPINE THORACOLUMBAR JUNCTION 2 OR MORE VIEWS HISTORY: magnetic resonance imaging COMPARISON: 10/05/2024 FINDINGS: Unchanged spinal stimulator device with battery pack in the right flank and 2 intact leads terminating at T9-T10. Unchanged combined posterior and anterior fusion from L2 to S1. IVC filter noted. Partially visualized right sacroiliac joint screw. Partially visualized pacemaker wires. Procedure Note Aaron Tran DO - 01/11/2025 EXAMINATION: XR SPINE THORACOLUMBAR JUNCTION 2 OR MORE VIEWS HISTORY: magnetic resonance imaging COMPARISON: 10/05/2024 FINDINGS: Unchanged spinal stimulator device with battery pack in the right flank and 2 intact leads terminating at T9-T10. Unchanged combined posterior and anterior fusion from L2 to S1. IVC filter noted. Partially visualized right sacroiliac joint screw. Partially visualized pacemaker wires. IMPRESSION: 1. Intact spinal stimulator device. Electronically signed by: Aaron Tran D.O. us [facility] Darshana BRYANT IMG XR PROCEDURES Final Result * XR Chest PA Lateral 2 Views (01/11/2025 9:46 AM CDT) Anatomical Region Laterality Modality Body, Chest N/A Computed Radiogr aphy 01/11/2025 10:0 7 AM CDT Impressions 01/11/2025 10:33 AM CDT The current study is compared with the prior radiograph dated 10/05/2024. Spinal stimulator leads noted over the lower thoracic spine. Left subclavian approach pacemaker device in place with 3 total leads overlying the right atrium, right ventricle, and a coronary vein. The leads are intact. There are no abandoned leads. Left atrial appendage occlusion device. Partially imaged lumbar spinal fusion hardware. No pulmonary consolidation No pleural effusion or pneumothorax. Stable cardiomediastinal silhouette. Dictated by: Harry De La Paz MD The radiology attending physician has personally reviewed this study, and had reviewed and/or edited this written report and agrees with it. Electronically signed by: Trey Olivas M.D. Narrative 01/11/2025 10:33 AM CDT EXAMINATION: 2 view chest radiograph Procedure Note Trey Olivas MD - 01/11/2025 EXAMINATION: 2 view chest radiograph IMPRESSION: The current study is compared with the prior radiograph dated 10/05/2024. Spinal stimulator leads noted over the lower thoracic spine. Left subclavian approach pacemaker device in place with 3 total leads overlying the right atrium, right ventricle, and a coronary vein. The leads are intact. There are no abandoned leads. Left atrial appendage occlusion device. Partially imaged lumbar spinal fusion hardware. No pulmonary consolidation No pleural effusion or pneumothorax. Stable cardiomediastinal silhouette. Dictated by: Harry De La Paz MD The radiology attending physician has personally reviewed this study, and had reviewed and/or edited this written report and agrees with it. Electronically signed by: Trey Olivas M.D. us Tom Paz MD IMG XR PROCEDURES Final Resu lt * Imaging Genicular RFA Right (36044) (01/06/2025 11:33 AM CDT) Narrative [facility] - 01/06/2025 11:33 AM CDT The images from this study are not interpreted by Radiology. Please refer to the physician's procedure / OR operative note. Dougie Lord MD IMG PAIN MGMT PROCEDURES Final Result [facility] * CT Abdomen Pelvis W Contrast (12/08/2024 [...] gastric) 11/23/2024 11:31 AM CDT Narrative PATHOLOGY [facility] - 11/24/2024 12:03 PM CDT EPIC results best viewed via link to PDF [facility] [place] [address] Note to Patients: This report may contain [...] Gender: F : 1965 (Age: 59) Address: [address] [place] [id number] [facility] #: [id number] Taken:11/23/2024 Received:11/23/2024 Reported: 11/24/2024 Patient Type: [facility] EP SAME Client [facility] Service: Gastro Location: Physician(s): Trey Arroyo M.D. Tom Stephen Arango M.D. Diagnosis: A. Duodenum, biopsy - [...] H.pylori organisms are identified by H&E examination /11/24/2024 11:17 By this signature, I attest that [...] C1. Jar 0. rxr/11/23/2024 14:21 PA(s): Roz Mtz, MS, PA(ASCP)CM By this signature, I attest that the above diagnosis is based upon my personal examination of the slides(and/or other material). Addenda/Procedures Microscopic slide review and interpretation for this case was performed at [facility], Department of Surgical Pathology, [address] [facility] [address], [id number], [place] [address] CLIA # [id number] The performance characteristics of some immunohistochemical stains, fluorescence in-situ hybridization tests and immunophenotyping by flow cytometry cited in this report (if any) were determined by the Surgical Pathology and Flow Cytometry Departments at [facility] as part of an ongoing water quality specialist program and in compliance with federally [...] Surgical Pathology and Flow Cytometry Departments of [facility]. It has not been cleared or approved by the [place]. [place]. Food and Drug Administration. IMAGES AND SCANNED DOCUMENTS, IF INCLUDED, ONLY VIEWABLE IN PDF VERSION OF REPORT us Trey Arroyo MD LAB PATHOLOGY ORDERAB LES Final Result PATHOLOGY [facility] [phone] * EGD (11/23/2024 11:20 AM CDT) Anatomical Region Laterality Modality Other Narrative Procedure Note Trey Arroyo MD - 11/23/2024 11:20 AM CDT ENDOSCOPY LAB Patient Name: Naye Cantu Procedure Date: 11/23/2024 11:20 AM Date of : 1965 Admit Type: Outpatient Age: 59 Gender: Female Attending MD: Trey Arroyo M.D. Room: [facility] ENDOSCOPY ROOM 03 Note Status: Finalized [...] and oxygen saturations were monitored continuously. The [id number] was introduced through the mouth, and advanced [...] business hours - Please call theNurse Coordinator: [phone] After hours, evening, nights, weekends and holidays- Please call the hospital hemstitching machine operator at and ask for the GI fellow cable installation manager. Attending Participation: I personally performed the entire procedure. Electronically signed by Trey Arroyo MD Trey Arroyo M.D. 11/23/2024 11:37:09 AM Number of Addenda: 0 Note Initiated On: 11/23/2024 11:20 AM Trey Arroyo MD ENDOSCOPY PROCEDURES Final Result * Colonoscopy (08/02/2024 1:43 PM LICENSED INVESTMENT SALES ASSISTANT) Anatomical Region Laterality Modality Other Narrative Procedure Note Trey Arroyo MD - 08/02/2024 1:43 PM CST [facility] ENDOSCOPY [facility] Patient Name: Naye Cantu Procedure Date: 08/02/2024 1:43 PM Date of : 1965 Admit Type: Outpatient Age: 58 Gender: Female Attending MD: Trey Arroyo M.D. Room: [facility] ENDOSCOPY ROOM 8 Note Status: [...] The scope was passed under direct vision.The [id number] endoscope was introduced through the anus and advanced to the terminal ileum. The colonoscopy was performed without difficulty. The patient tolerated the procedure well. The qualityof the bowel preparation was evaluated using the BBPS (Dudley Bowel Preparation Scale) with scores of:Right Colon [...] business hours - Please call theNurse Coordinator: [phone] After hours, evening, nights, weekends and holidays- Please call the hospital hemstitching machine operator at and ask for the GI fellow cable installation manager. Attending Participation: I was present and participated during the entire procedure, including non-patrick portions. Electronically signed by Trey Arroyo MD Trey Arroyo M.D. 08/02/2024 2:08:56 PM . Number of Addenda: 0 Note Initiated On: 08/02/2024 1:43 PM Trey Arroyo MD ENDOSCOPY PROCEDURES Final Result * Hepatitis C antibody (07/06/2020 2:58 PM LICENSED INVESTMENT SALES ASSISTANT) Hep C Ab NON-REACTI VE NON-REACT GIA [facility] SIGNAL TO CUT-OFF 0.02 <1.00 [facility] Comment: HCV antibody was non-reactive. There is no laboratory evidence of HCV infection. In most cases, no further action is required. However, if recent HCV exposure is suspected, a test for HCV RNA (test code 43982) is suggested. For additional information please refer to http://education.[employer]/faq/PDW17m9 (This link is being provided for informational/ educational purposes only.) Blood specimen (specimen) 07/06/2020 2:58 PM LICENSED INVESTMENT SALES ASSISTANT 07/06/2020 3:00 PM LICENSED INVESTMENT SALES ASSISTANT Narrative [facility] - 07/11/2020 9:33 PM LICENSED INVESTMENT SALES ASSISTANT PATIENT UNABLE TO VOID; ADVISED TO RETURN FOR COLLECTION. Olga MONTES LAB MICROBIOLOGY - GENERA L ORDERABLES Final Result [facility] [address] [facility] [place] [address] from Last 3 Months or Most Recently Relevant to Health Maintenance Insurance MEDICARE [facility] [address] [place] [address] MEDICARE [facility] MEDICARE [facility] [address] [place] [address] MEDICARE MEDICARE [facility] Advance Directives For more information, please contact: [phone] * Full Code (Latest Code Status on [...] 10:10 AM 02/24/2022 4:09 PM Care Teams Switchboard And Control Room Operator Relationship Specialty Start Date End Date Tom Paz MD PCP - General 09/09/16 Tab Taylor MD [address] [place] [address] Consulting Physician Cardiology 01/03/20 Favian Caceres MD [address] [place] [id number] Consulting Physician Rheumatology 08/28/23
--- OUTSIDE RECORDS SUMMARY | 2025-02-13 08:12 | XMS_ITS | Clinical Summary ---
Author Organization [facility] Address [address] [place] [address] Care Team Providers Care Animal Laboratory Helper Name Role Phone Tom Paz MD Primary Care Provider [phone] Tab Taylor MD Unavailable Favian Caceres MD Unavailable [phone] Allergies Active Allergy Reactions Criticality Noted Date [...] - blisters Etanercept Itching Low 02/24/2022 Gum [place] Unknown 05/12/2023 Gum Rvrusw-Uptkfq-Rhgk-Alcoho l Blisters,Rash High 12/17/2021 Mastisol - blisters [...] 6 (six) hours as needed for pain Active sucralfate (CARAFATE) 1 gram tablet Take 1 tablet (1 g total) by mouth 2 (two) times a day 025 Active dexlansoprazole (DEXILANT) 60 mg capsule Take 1 capsule (60 mg total) by mouth daily 30 capsule 11 Active Nucynta 50 mg tablet Take 1 tablet (50 mg total) by mouth 3 (three) times a day as needed for pain Active nystatin ointment Apply topically 2 (two) times a day Active golimumab (SIMPONI SUBQ)Indications :ist of the [...] QuantGold Assessment & Plan (07/28/2024 11:19 AM SPEEDBOAT OPERATOR): Monitor routine labs while on immunosuppressive [...] QuantGold Assessment & Plan (09/22/2023 12:26 PM SPEEDBOAT OPERATOR): Monitor routine labs while on immunosuppressive [...] QuantGold Assessment & Plan (09/11/2022 12:48 PM SPEEDBOAT OPERATOR): Monitor routine labs while on immunosuppressive medications. Recent 2/ labs stable. 06/2020: Neg Hep B/C 03/2021: Neg QuantGold Assessment & Plan (07/01/2022 9:25 AM SPEEDBOAT OPERATOR): Monitor routine labs while on immunosuppressive [...] QuantGold Assessment & Plan (08/19/2021 2:31 PM SPEEDBOAT OPERATOR): Monitor routine labs while on immunosuppressive [...] Hospitalized for total of 8 days, at [facility] and then [facility]. Had CT brain/neck [...] Hospitalized for total of 8 days, at [facility] and then [facility]. Had CT brain/neck [...] 07/24/2020 Assessment & Plan (07/24/2020 12:34 PM SPEEDBOAT OPERATOR): Her greatest pain complaint at this [...] 07/24/2020 Assessment & Plan (07/01/2022 2:12 PM SPEEDBOAT OPERATOR): Self weaned off Cymbalta 2 days [...] exercise. Assessment & Plan (08/27/2020 2:41 PM SPEEDBOAT OPERATOR): Fatigue with sensation of pain all [...] exercise. Assessment & Plan (07/24/2020 12:36 PM SPEEDBOAT OPERATOR): Fatigue with sensation of pain all [...] PT. Assessment & Plan (08/28/2020 12:26 PM SPEEDBOAT OPERATOR): Multifocal OA (hands and hips) per recent xrays. Continue Tylenol 500 mg qid. Continue PT. Assessment & Plan (07/24/2020 12:41 PM SPEEDBOAT OPERATOR): Multifocal OA (hands and hips) per [...] increase blood glucose, glaucoma and osteopenia with long distance operator use of steroids. Labs today. To return in 6 weeks for re-evaluation - this can be moved out to 3 months if joints remain stable. Assessment & Plan (07/28/2024 11:22 AM SPEEDBOAT OPERATOR): Off MTX (oral ulcers/hair thinning). Remains [...] increase blood glucose, glaucoma and osteopenia with [facility] use of steroids. She was strongly encouraged [...] needed. Assessment & Plan (09/22/2023 12:32 PM SPEEDBOAT OPERATOR): A 09/2022 repeat left hand/wrist US [...] needed. Assessment & Plan (09/11/2022 12:48 PM SPEEDBOAT OPERATOR): Continued 15mg MTX weekly and monthly [...] Chan. Assessment & Plan (08/06/2022 9:00 PM SPEEDBOAT OPERATOR): Has continued 15mg MTX weekly as [...] we have no access to them through [facility]. She already had an OV scheduled for 09/02 - will re-evaluate joints at that time and consider repeat hand US if synovitis is absent/minimal on exam but she is still noting pain -to evaluate for underlying inflammation. She may require change in biologic medication. Assessment & Plan (07/01/2022 2:09 PM SPEEDBOAT OPERATOR): CDAI 37, high Off Enbrel due [...] She is to follow up with her bus washer soon due to low BP following her [...] increase blood glucose, glaucoma and osteopenia with [facility] use of steroids. Continue 15mg MTX weekly [...] Chan. Assessment & Plan (08/19/2021 9:00 PM SPEEDBOAT OPERATOR): CDAI 25. On 15mg MTX weekly but has only taken 3 Enbrel injections so far. Just completed a medrol dose pack from her bus washer due to inflammation around her heart (pericarditis?). [...] incontinence. Has followed up with PCP and bus washer - started Ubrelvy for JACKSON and bus washer is to adjust her pacemaker on 05/23. [...] the ). A letter was provided for [facility] to allow Humira to be brought as a carry on. She may call [facility] to schedule injection with a nurse [...] needed. Assessment & Plan (08/28/2020 12:26 PM SPEEDBOAT OPERATOR): Our workup showed an JANNET 1:160 [...] needed. Assessment & Plan (07/24/2020 12:33 PM SPEEDBOAT OPERATOR): 54yoF referred for evaluation due to [...] reassess. Assessment & Plan (07/06/2020 4:49 PM SPEEDBOAT OPERATOR): 54yoF referred for evaluation due to [...] (12/13/2019): Added automatically from request for surgery [id number] SVT (supraventricular tachycardia) 12/13/2019 Overview (12/13/2019): Added automatically from request for surgery [id number] A-fib 11/24/2019 Overview (11/24/2019): Added automatically from request for surgery [id number] Laryngopharyngeal reflux (LPR) 08/04/2018 Assessment & Plan (10/20/2018 12:26 PM CDT): No longer taking the omeprazole and ranitidine as prescribed. Patient is no longer experiencing any coughing, sinonasal or throat symptoms. Assessment & Plan (08/04/2018 1:17 PM SPEEDBOAT OPERATOR): Add omeprazole 40 mg Q morning [...] resume. Assessment & Plan (08/04/2018 1:11 PM SPEEDBOAT OPERATOR): Patient's chronic cough is most likely [...] reactive airway disease contributing to her cough. [facility] current use of anticoagulant therapy 1 08/28/2014 Deep vein thrombosis (DVT) 06/27/2015 Hyperthyroidism 08/31/2012 Chronic adrenal insufficiency 08/30/2012 Encounters Date Type Department Care Team Description 5 11:00 AM CDT - 5 11:59 PM CDT Hospital Encounter [facility] [address] [place] [phone] Dougie Lord MD Right knee pain, unspecified chronicity (Primary Dx) Discharge Disposition: Discharge to home or self care 5 8:20 AM CDT Office Visit [facility] - [address] Medical Office Building [address] [place] [phone] Roge Dowell MD CELINA (obstructive sleep apnea) (Primary Dx); Obstructive sleep apnea (adult) (pediatric) 5 Results Follow-Up [facility] [address] [place] [phone] Claudia Abdalla PA CBC with auto differential, Comprehensive metabolic panel 5 10:30 AM CDT Office Visit [facility] [address] [place] [phone] Claudia Abdalla PA Seronegative rheumatoid arthritis (HCC) (Primary Dx); Encounter for long-term (current) use of high-risk medication [address] [facility] [address] [facility] Medicine 12th [place] [address] [place] [phone] Carlie Patricia 5 Telephone [facility] at [address], [address] [place] [phone] Dougie Lord MD POST CALL 5 Orders Only [facility] at [address], [address] [place] [phone] Dougie Lord MD 5 Telephone [facility] at [address], [address] [place] [address] Dougie Lord MD Post Procedure Pain 5 9:36 AM CDT - 5 11:59 PM CDT Hospital Encounter [facility] [address] [place] [address] Transient ischemic attack (TIA); Cerebrovascular disease, unspecified; Unspecified visual loss; Presence of cardiac pacemaker Discharge Disposition: Discharge to home or self care 5 9:35 AM CDT - 5 11:59 PM CDT Hospital Encounter [facility] [address] [place] [address] Encounter for imaging to screen for metal prior to magnetic resonance imaging (MRI) Discharge Disposition: Discharge to home or self care 5 8:47 AM CDT - 5 11:59 PM CDT Hospital Encounter [facility] [address] [place] [address] Unspecified injury of right shoulder and upper arm, initial encounter Discharge Disposition: Discharge to home or self care 5 Documentation Cardiology Sofiya Rosa NP 5 10:22 AM CDT - 5 11:59 PM CDT Hospital Encounter [facility] at [address], [address] [place] [phone] Dougie Lord MD Right knee pain, unspecified chronicity Discharge Disposition: Discharge to home or self care 5 Telephone [facility] at [facility] [address] [facility] [address], [address] [place] [phone] Dougie Lord MD Pre-Surgical Call [address] [facility] [address] [facility] [address] [place] [phone] Luis Hobbs RMA Med Refill (HC 2.5% Cr) 5 7:04 AM CDT - 5 11:59 PM CDT Hospital Encounter [facility] [address] [place] [address] Trey Arroyo MD Abdominal pain; Nausea and vomiting, unspecified vomiting type Discharge Disposition: Discharge to home or self care [address] [facility] [address] [facility] Medicine 12th [place] [address] [place] [address] Carlie Patricia Prior Auth [address] [facility] [address] [facility] 2[address] [place] [address] Trey Arroyo MD 5 Results Follow-Up [facility] Endoscopy [address] [place] [address] Abdomen Pelvis W Contrast 5 E-Visit [facility] [address] [place] [phone] Claudia Abdalla PA Ultrasound 5 Orders Only [facility] [address] [place] [phone] Claudia Abdalla PA [address] [facility] [address] [facility] [address] [place] [address] Trey Arroyo MD Abdominal pain (Primary Dx); Nausea and vomiting, unspecified vomiting type 5 Results Follow-Up [facility] [address] Medical Office Building [address], [address] [place] [address] Trey Arroyo MD Surgical pathology 5 11:18 AM CDT Anesthesia Event [facility] Endoscopy [address] [address] [place], [place] [address] Pepe Muller MD Hughett, Elizabeth Ann, FELIPE 5 11:00 AM CDT - 5 11:30 AM CDT Surgery [facility] Endoscopy [address] [place], [place] [address] Trey Arroyo MD ESOPHAGOGASTRODUODENOSCOPY BIOPSY 5 9:53 AM CDT - 5 12:36 PM CDT Hospital Encounter [facility] Endoscopy [address] [address] [place], [place] [address] Trye Arroyo MD Abdominal pain; Nausea Discharge Disposition: Discharge to home or self care [address] [facility] [address] [facility] 2nd Floor [address] [place] [address] Valerie Washington LPN GI pre procedure screening [address] [facility] [address] [facility] 2nd Floor [address] [place] [address] Trey Arroyo MD Abdominal pain (Primary Dx); Nausea from Last 3 Months Surgical History Surgery [...] failure (HCC) Osteoarthritis Chronic constipation Chronic diarrhea Night sweats Diverticulitis of colon Fibromyalgia, primary 20 yrs ago Back pain Colon polyp Family History Medical History Relation Name Comments [...] = 0.6 oz pur e alcohol) [facility] Utilities Answer Date Recorded In the past 12 months has [employer], gas, oil, or water [employer] threatened to shut off services in your [...] often do you attend chur ch or islam services? More than 4 times per year 02/11/2024 Do you belong to any clubs o r organizations such as jew groups, unions, fraternal or athletic groups, or [...] any time in the past 12 m [facility], were you homeless or living in [...] on file Legal Sex Female 12:21 AM SPEEDBOAT OPERATOR Gender Identity Not on file Sexual [...] ENDOSCOPY EVAL FLEX DIAG Obstructive sleep apnea Health Maintenance Due Date Last Done Comments Breast Cancer Screening-Mammogram 1965 Cervical Cancer Screening 1965 Depression Screening 1965 Hepatitis B Screening 1982 Regular Well Visit/Exam 18-64 1982 Pneumococcal vaccine <65 (1 of 2 - PCV) 1983 Zoster Vaccine (1 of 2) 2014 Influenza Vaccine (#1) 2025 DTaP/Tdap/Td Vaccine (2 - Td or [...] Reduce the likelihood of falling Lifestyle No Hlai Brewer RN Note: Below are four things [...] on stairs Contact your local community or [facility] for information on exercise, fall prevention programs, or options for improving home safety. Medical Devices Implanted Type Area Shift Boss Device Identifier Shelf Expiration Date Model / Serial / Lot Ivc Filter- 7 Implanted:Qty: 1 on 06/09/2007 by Tam Fraser MD IVC Filter N/A: Vena Cava Lead-Spinal Cord Stimulator- 018 Implanted:2017 by Taran Ramirez MD (Quantity not on file) Lead Back [employer] SC-2158- 50 / / Biotronik Ra Lead ([id number])- 019 Implanted:2018 (Quantity not on file) Lead Chest Biotronik SOLIA S 45 [id number] 176 / [id number] / Lead (Rv)-05/23/2021 Implanted:2020 (Quantity not on file) Lead Heart Biotronik SOLIA S 53 377 177 / [id number] / Biotronik Paceomaker Ariana Kaur-12/24/2023 Implanted:2023 (Quantity not on file) Pacemaker Chest Wall Biotronik [id number] / [id number] / Spinal Cord Stimulator- 018 Implanted:Qty: 1 on 08/20/2017 by Taran Ramirez MD Spinal Cord Stimulator N/A: Back [employer] SC-1200 / [id number] / Spinal Cord Stimulator Lead-08/20/2017 Implanted:2017 by Taran Ramirez MD (Quantity not on file) Spinal Cord Stimulator Back [employer] Neuro- [id number] / / Hardware Thoracic-L umbar Spine Loop Recorder Chest Wall [employer] System Closure Repair Femoral Artery Suture Mediated Perclose Prostyle 45055-94 - [id number] Implanted:Qty: 1 on 02/09/2024 by Morgan Roy MD at [facility] Vascular 11/16/2025 83393-54 / / [id number] [employer] Percutaneous Transcatheter Amplatzer Amulet 18mm 4-[id number] - [id number] Implanted:Qty: 1 on 02/09/2024 by oMrgan Roy MD at [facility] Vascular 09/17/2027 9-ACP2-0 07-018 / / [id number] Chris V[employer] System Closure Repair Femoral Artery Suture Mediated Perclose Prostyle 82327-10 - [id number] Implanted:Qty: 1 on 02/09/2024 by Morgan Roy MD at [facility] Vascular 11/16/2025 23448-19 / / [id number] [employer] Sling Urinary Incontinence Female Stress Short Desara Blue Sis-Ds01bs - [id number] Implanted:Qty: 1 on 06/28/2024 by Shankar Mak MD at [facility] N/A: Urethra [employer] 01/04/2027 SIS-DS01 BS / / [id number] Explanted Type Area Shift Boss Device Identifier Shelf Expiration Date Model / Serial / Lot Biotronik Rv Lead ([id number])-07/04 Implanted:Qty: 1 on 07/04/2019 Explanted:Qty: 1 Lead Chest Biotronik [id number] / / Description:This lead was re placed and left behind per patient on 05/23/21 Biotronik Pacemaker ([id number])-07/04 Implanted:Qty: 1 on 07/04/2019 Explanted:Qty: 1 on 12/24/2023 Pacemaker Left: Chest Biotronik BENITO CARBAJAL / [id number] / [id number] Procedures Procedure Name Priority Date/Time Associated Diagnosis [...] Abdominal pain Nausea COLONOSCOPY 08/02/2024 1:43 PM SPEEDBOAT OPERATOR HEPATITIS C ANTIBODY Routine 07/06/2020 2:58 PM SPEEDBOAT OPERATOR Polyarthralgia Encounter for screening for other [...] 4 AM CDT 01/23/2025 11:04 AM CDT Claudia MONTES LAB BLOOD ORDER IDIRS Final Result [facility] [id number] [address] [phone] * Comprehensive metabolic panel (01/23/2025 11:04 AM CDT) Pathologist [facility] Glucose 80 65 - 99 mg/dL [facility] [...] 4 AM CDT 01/23/2025 11:04 AM CDT Claudia MONTES LAB BLOOD ORDER IDRIS Final Result MADELIN Johnson [address] [address] [phone] * MRI Shoulder Right WO Contrast (01/11/2025 [...] Partially visualized pacemaker wires. Procedure Note Aaron Tran, - 01/11/2025 EXAMINATION: XR SPINE THORACOLUMBAR JUNCTION [...] Electronically signed by: Aaron Tran D.O. us Resten Darshana BRYANT IMG XR PROCEDURES Final Result [...] Resu lt * Imaging Genicular RFA Right ([id number]) (01/06/2025 11:33 AM CDT) Narrative RAD_PACS[facility] - 01/06/2025 11:33 AM CDT The images from this study are not interpreted by Radiology. Please refer to the physician's procedure / OR operative note. us Dougie Lord MD IMG PAIN MGMT PROCEDURES [...] results best viewed via link to PDF [facility] [place] [facility] Surgical Pathology [place] [address] Note to Patients: This report may contain [...] Gender: F : 1965 (Age: 59) Address: [address] [place], [place] [phone] [facility] #: [id number] Taken:11/23/2024 Received:11/23/2024 Reported: 11/24/2024 Patient Type: [facility] EP SAME Client [facility] Service: Gastro Location: Physician(s): Pb Steward M.D. [...] is entirely submitted. Labeled C1. Jar 0. /11/23/2024 14:21 PA(s): Roz Mtz MS, PA([facility])CM By this signature, I attest that the above diagnosis is based upon my personal examination of the slides(and/or other material). Addenda/Procedures Microscopic slide review and interpretation for this case was performed at [facility], Department of Surgical Pathology, [address] [facility] [address], [id number], [place] [address] CLIA # [id number] The performance characteristics of some immunohistochemical stains, fluorescence in-situ hybridization tests and immunophenotyping by flow cytometry cited in this report (if any) were determined by the Surgical Pathology and Flow Cytometry Departments at [facility] as part of an ongoing senior quality technician program and in compliance with federally mandated [...] Surgical Pathology and Flow Cytometry Departments of [facility]. It has not been cleared or approved by the U. S. Food and Drug Administration. IMAGES AND SCANNED DOCUMENTS, IF INCLUDED, ONLY VIEWABLE IN PDF VERSION OF REPORT rTey Arroyo MD LAB PATHOLOGY ORDERAB LES Final Result PATHOLOGY [facility] [phone] * EGD (11/23/2024 11:20 AM CDT) Anatomical Region Laterality Modality Other Narrative Procedure Note Trey Arroyo MD - 11/23/2024 11:20 AM CDT ENDOSCOPY LAB Patient Name: Naye Cantu Procedure Date: 11/23/2024 11:20 AM Date of : 1965 Admit Type: Outpatient Age: 59 Gender: Female Attending MD: Trey Arroyo M.D. Room: [facility] ENDOSCOPY ROOM 03 Note Status: Finalized [...] and oxygen saturations were monitored continuously. The [id number] was introduced through the mouth, and advanced [...] During normal business hours - [facility] [facility] [place] Coordinator: [phone] After hours, evening, nights, weekends and holidays- Please call the hospital solid tire tuber machine operator at and ask for the GI fellow medical front desk coordinator. Attending Participation: I personally performed the entire procedure. Electronically signed by Trey Arroyo MD Trey Arroyo M.D. 11/23/2024 11:37:09 AM Number of Addenda: 0 Note Initiated On: 11/23/2024 11:20 AM us Trey Arroyo MD ENDOSCOPY PROCEDURES Final Result * Colonoscopy (08/02/2024 1:43 PM SPEEDBOAT OPERATOR) Anatomical Region Laterality Modality Other Narrative Procedure Note Trey Arroyo MD - 08/02/2024 1:43 PM CST GI ENDOSCOPY [facility] Patient Name: Naye Cantu Procedure Date: 08/02/2024 1:43 PM Date of : 1965 Admit Type: Outpatient Age: 58 Gender: Female Attending MD: Trey Arroyo M.D. Room: [facility] ENDOSCOPY ROOM 8 Note Status: Finalized [...] scope was passed under direct vision.The CF [id number] endoscope was introduced through the anus and advanced to the terminal ileum. The colonoscopy was performed without difficulty. The patient tolerated the procedure well. The qualityof the bowel preparation was evaluated using the BBPS ([place] Bowel Preparation Scale) with scores of:Right Colon [...] During normal business hours - [facility] [place] [facility] [place] Coordinator: [phone] After hours, evening, nights, weekends and holidays- Please call the hospital solid tire tuber machine operator at and ask for the GI fellow medical front desk coordinator. Attending Participation: I was present and participated during the entire procedure, including non-patrick portions. Electronically signed by Trey Arroyo MD Trey Arroyo M.D. 08/02/2024 2:08:56 PM . Number of Addenda: 0 Note Initiated On: 08/02/2024 1:43 PM Trey Arroyo MD ENDOSCOPY PROCEDURES Final Result * Hepatitis C antibody (07/06/2020 2:58 PM SPEEDBOAT OPERATOR) Hep C Ab NON-REACTI VE NON-REACT GIA [facility] SIGNAL TO CUT-OFF 0.02 <1.00 [facility] Comment: HCV antibody was non-reactive. There is no laboratory evidence of HCV infection. In most cases, no further action is required. However, if recent HCV exposure is suspected, a test for HCV RNA (test code 25268) is suggested. For additional information please refer to http://education.Becovillage/faq/RDS47z4 (This link is being provided for informational/ educational purposes only.) Blood specimen (specimen) 07/06/2020 2:58 PM SPEEDBOAT OPERATOR 07/06/2020 3:00 PM SPEEDBOAT OPERATOR Narrative [facility] - 07/11/2020 9:33 PM SPEEDBOAT OPERATOR PATIENT UNABLE TO VOID; ADVISED TO RETURN FOR COLLECTION. Olga MONTES LAB MICROBIOLOGY - GENERA L ORDERABLES Final Result [facility] [id number] [place] [address] from Last 3 Months or Most Recently Relevant to Health Maintenance Insurance MEDICARE IDFL MEDICARE [facility] [address] [place] [id number] MEDICARE [facility] [address] [place], [place] [id number] MEDICARE MEDICARE [facility] Advance Directives For more information, please contact: [phone] * Full Code (Latest Code Status on [...] 10:10 AM 02/24/2022 4:09 PM Care Teams Animal Laboratory Helper Relationship Specialty Start Date End Date Tom Paz MD PCP - General 09/09/16 Tab Taylor MD [address] [place] [address] Consulting Physician Cardiology 01/03/20 Favian Caceres MD [address] [place] [address] Consulting Physician Rheumatology 08/28/23
--- OUTSIDE RECORDS SUMMARY | 2025-02-13 08:12 | XMS_ITS | Encounter Summary ---
Author Organization [facility] Healthcare Address [address] [place] [address] Care Team Providers Care Paramedical Aide Name Role Phone Tom Paz MD Primary Care Provider [phone] Tab Taylor MD Unavailable [phone] Favian Caceres MD Unavailable [phone] Encounter Details Date Type Department Care Team (Late st Contact Info) Description 02/11/2024 Documentation [facility] Case Management [address] [place] [address] Gaviota Benz, RN Social History Tobacco Use Types Packs/Day Years Used Date Smoking Tobacco: Never Passive Smoke Exposure: Past Smokeless Tobacco: Never Alcohol Use Standard Drinks/Week Comments No 0 (1 standard drink = 0.6 oz pur e alcohol) [facility] Utilities Answer Date Recorded In the past 12 months has [employer], gas, oil, or water [employer] threatened to shut off services in [...] How often do you attend [facility] or jain services? More than 4 times per year [...] any time in the past 12 m [facility], were you homeless or living [...] Legal Sex Female 12:21 AM DIRECTOR OF ENTERPRISE STRATEGY Gender Identity Not on file Sexual Orientation [...] Medicare and IDPA Prescription Coverage: Yes Pharmacy: [facility]/pharmacy #[id number] [place], [place] - [address] [facility] AT [address] OF [address] [facility] [address] [id number] - [place], [place] - [address] [facility] [address] [facility] - [place], [place] - [address] [facility] 616 [facility] [address] [place], [place] - [address]20 [facility] 1620 [facility] [address] Primary Care Provider: Tom Paz MD Prior to Admission: Functional Status: Minimal assist with ADLs Primary Caregiver: Private caregiver Support System: Children, Friends/neighbors (Son: Porter Serrano [phone]/Friend: Federico [phone]) Home Care Services: Yes Type of Home Care Services: abrasive worker (abrasive worker 5 days per week, 5-6.25 hour [...] a week How often do you attend pentecostalism or jain services?: More than 4 times per year Do you belong to any clubs or organizations such as pentecostalism groups, unions, fraternal [...] reports needing assistance with ADLs. Has a bank worker and has a quad cane and [...] Collaboration with Patient, Provider, Direct Care Nurse, Clerical Methods Analyst, and other members of theHealth Care Team to assure needed interventions completed. 2. Return patient to optimal level of self-care post discharge. 3. Medical Safety Director will follow for Discharge Planning - interventions as needed 4. Anticipated level of care at discharge 5. Planned Discharge Disposition SONALI Brothers, RN seeing eye dog teacher [phone] documented in this encounter Plan of Treatment Scheduled Procedures [...] on filedocumented in this encounter Care Teams Paramedical Aide Relationship Specialty Start Date End Date Tom Paz MD PCP - General 09/09/16 Tab Taylor MD [address] [place] [address] Consulting Physician Cardiology 01/03/20 Favian Caceres MD [address] [place] [address] Consulting Physician Rheumatology 08/28/23 documented as of this encounter
--- OUTSIDE RECORDS SUMMARY | 2025-02-13 08:12 | XMS_ITS ---
Author Organization [facility] Address [address] [place], [place] [address] Care Team Providers Care Fur Vault Attendant Name Role Phone CATHI SILVA Unavailable [phone] Tom Paz Unavailable Unavailable REASON FOR VISIT *Callus Care Encounters Encounter Location Date Provider Diagnosis [facility] [place] [address] [place], [place] [id number] 10/24/2024 CATHI SILVA Plan Of Treatment No Information Progress Notes * ALONDRANaye ALEJANDREDOB:1965 ( 59 yo F)Acc No.[id number]:10/24/2024 Patient: Naey RAI Provider: Sammi Silva DPM :1965 A ge:59 Y S ex:Female Date:10/24/2024 Address:[address] [place] [address], [facility] [address], [place] Subjective: * Chief Complaints: * 1 . *Callus Care. * Medical History: Objective: * Vitals: Assessment: Plan: * Treatment: * Billing Information: * Visit Code: * Procedure Codes: * Electronic signature of CATHI SILVA DPM on 02/13/2025 at 08:11 AM CDT Sign off status: Pending * Provider: Sammi Silva DPM Date: 0 10/24/2024 Generated for Printi ng/Faxing/eTransmitting on: 0 02/13/2025 08:11 AM CDT
--- OUTSIDE RECORDS SUMMARY | 2025-02-13 08:12 | XMS_ITS | Encounter Summary ---
Author Organization [facility] Address [address] [place] [address] Phone Care Team Providers Care Catalogue Librarian Name Role Phone Tom Paz MD Primary Care Provider [phone] Tab Taylor MD Unavailable [phone] Favian Caceres MD Unavailable [phone] Encounter Details Date Type Department Care Team (Late st Contact Info) Description 12/06/2024 E-Visit [facility] [address] [place] [address] Claudia Cristobal, SIM[address] [place] [address] Ultrasound Social History Tobacco Use Types Packs/Day Years Used Date Smoking Tobacco: Never Passive Smoke Exposure: Past Smokeless Tobacco: Never Alcohol Use Standard Drinks/Week Comments No 0 (1 standard drink = 0.6 oz pur e alcohol) [facility] Utilities Answer Date Recorded In the past 12 months has [employer], gas, oil, or water [employer] threatened to shut off services in your [...] often do you attend chur ch or tenriism services? 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
--- OUTSIDE RECORDS SUMMARY | 2025-02-13 08:13 | XMS_ITS ---
Author Organization [facility] Address [address] [place], [place] [address] Care Team Providers Care Magnetic Tape Winder Name Role Phone CATHI SILVA Unavailable [phone] Tom Paz Unavailable Unavailable CATHI BURNS Unavailable [phone] REASON FOR VISIT possible stress fracture Encounters Encounter Location Date Provider Diagnosis [facility] [place] [place], [place] [id number] 09/29/2024 CATHI BURNS Plan Of Treatment No Information Progress Notes * ALONDRALesia ALEJANDREtwylaDOB:1965 ( 59 yo F)Acc No.[id number]:09/29/2024 Patient: Naye RAI Provider: Sammi Burns DPM :1965 A ge:59 Y S ex:Female Date:09/29/2024 Address:[address] [place] [address], [address], [place], [place] Subjective: * Chief Complaints: * 1 . Possible stress fracture. * Medical History: Objective: * Vitals: Assessment: Plan: * Treatment: * Billing Information: * Visit Code: * Procedure Codes: * Electronic signature of CATHI BURNS DPM on 02/13/2025 at 08:12 AM CDT Sign off status: Pending * Provider: Sammi Burns DPM Date: 0 09/29/2024 Generated for Mikaela alcaraz/Sheng/Iris on: 0 02/13/2025 08:12 AM CDT
--- OUTSIDE RECORDS SUMMARY | 2025-02-13 08:13 | XMS_ITS | Clinical Summary ---
Author Organization [facility] Address [address] [place] [address] Care Team Providers Care Hat Blocking Machine Operator Name Role Phone Tom Paz MD Primary Care Provider [phone] Allergies Active Allergy Reactions Criticality Noted Date [...] blisters Etanercept Swelling Low 12/09/2023 Embrel Gum Rtaktv-Osddbg-Oflg-Alcoho l Rash Low 12/09/2023 Mastisol - blisters [...] Health Maintenance Due Date Last Done Comments DTAP/TDAP/TD VACCINES (1 - Tdap) 1983 FIT-DNA Q 3 years 2009 FIT/FOBT Q 1 year 2009 Flex Sig/CT Colonography Q 5 years 2009 ZOSTER VACCINE (1 of 2) 2014 BREAST CANCER SCREENING 01/17/2023 01/18/20, 01/17/2022, 08/07/2020, Additional history exists PAP SMEAR 10/08/2024 10/08/2021, 09/18, 08/16/2019, Additional history exists INFLUENZA VACCINE (#1) 2025 CERVICAL CANCER SCREENING 10/08/2026 HPV/Cotest (21-29) 10/08/2026 10/08/2021, 0 08/16/2019, 03/12/2015 HPV/Cotest (30-65) 10/08/2026 10/08/2021, 0 08/16/2019, 03/12/2015 COLORECTAL SCREENING 08/02/2034 08/02/2024, 07/25/19 16 Colorectal Cancer Screening 08/02/2034 RSV VACCINE (60+ or ) (1 - 1-dose 75+ series) 2039 HEPATITIS B VACCINES Aged Out No long er eligible based on patient's age to complete this topic Medical Devices Implanted Type Area Organic Extractions Technician Device Identifier Shelf Expiration Date Model / Serial / Lot Tyrx Antibacterial Envelope Med [id number] - [id number] Implanted:Qty: 1 on 12/24/2023 at [facility] Mesh Left: Chest MEDTRONIC- CARD RHYTHM MGMT 10/01/2024 [id number] / / [id number] Neuro Stimulator Neuro Stimulator Shoobs SC-1200 / / Description:leads: SC- Need lead numbers Dc Ppm Gen Implanted:Qty: 1 on 12/24/2023 by Burton Forbes MD at [facility] N/A: Chest Wall [id number] / [id number] 90 / Explanted Type Area Organic Extractions Technician Device Identifier Shelf Expiration Date Model / Serial / Lot Dc Eluna 8 Ppm Gen Explanted:Qty: 1 on 12/24/2023 by Burton Forbes MD at [facility] Pacemaker Chest Wall [employer] ELUNA 8 KRISTY / [id number] / Description:Implant date: Per [employer] Rep - NOT MRI safe (extra cap lead -ABANDONED LEAD - NO MRI -lizandro 08/14/23 Insurance MEDICARE PART A AND B BCBS [employer] [place] [id number] [place] [id number] MEDICARE PART A AND B [address] [place] [id number] RX OPTUM RX Member Subscriber Plan / Payer (Ef fective 2023-Present) Name:Naye Hart Relation to Subscriber:Self Name:Naye Hart Subscriber ID:Not on file Payer ID:Not on file Group ID:[id number] Type:RX Commercial Address: [address] Advance Directives For more information, please contact: [phone] Documents on File Type Date Recorded Patient Senior Buyer Planner Expl anation Advance Directive POA 12/24/2023 8:33 AM Ad valenzuela Directive POA * Full Code (Latest Code Status on File) Date Activated Date Inactivated Comments 12/24/2023 3:32 PM 12/25/2023 12:17 PM Care Teams Hat Blocking Machine Operator Relationship Specialty Start Date End Date Tom Paz MD [address] [place] [address] PCP - General Family Practice 01/28/22
[2025-02-13 09:43] LABS: Hematocrit 36.6 % (37.0-47.0); Hemoglobin 12.2 g/dL (12.0-15.0); Mean Corpuscular HGB Conc 33.3 g/dl (32-36); Mean Corpuscular Hemoglobin 35.3 pg (26-34); Mean Corpuscular Volume 105.8 fl (80-100); Platelet Count Result 163 k/mm3 (150-375); Red Blood Count 3.46 M/mm3 (4.2-5.4); White Blood Count 5.1 K/mm3 (4.5-10.0)
[2025-02-13 09:53] LABS: Add Urine Microscopic? YES; Appearance Urine Clear (Clear); Glucose Urine UA Negative (Negative); Leukocyte Esterase Ur 2+ LEU/UL (Negative); Nitrate Urine Positive (Negative); Non Pathogenic Casts 0-2; Specific Grav Ur 1.027 (1.001-1.035)
[2025-02-13 09:56] LABS: INR 1.0; Prothrombin Time 13.1 Seconds (11.1-14.7)
[2025-02-13 09:57] LABS: Partial Thromboplastin Time 35.9 Seconds (22.3-36.8)
[2025-02-13 10:05] LABS: Anion Gap 6 mmol/L (4-12); Blood Urea Nitrogen 27 mg/dL (7-17); Calcium 9.2 mg/dL (8.4-10.2); Carbon Dioxide 30 mmol/L (22-30); Chloride 104 mmol/L (98-107); Estimated Glomerular Filt Rate > 60; Glucose 76 mg/dL (65-110); Potassium 3.7 mmol/L (3.4-5.0); Sodium 140 mmol/L (137-145)
== END 2025-02-13 08:02 | disposition home or self-care (01) ==
LOC: ANHSURGERY 08:05
PROVIDERS: PCP Family Medicine; Visit Provider Neurological Surgery
DX: Z01.812 Encounter for preprocedural laboratory examination (principal); M46.1 Sacroiliitis, not elsewhere classified; R82.90 Unspecified abnormal findings in urine
CPT/HCPCS: 36415; 80048; 81001; 85027; 85610; 85730; 87086

== ENCOUNTER 2025-02-16 16:43 | Outpatient (CLI) | payer MEDICARE, MEDICAID, SELFPAY ==
--- OUTSIDE RECORDS SUMMARY | 2025-02-16 16:46 | XMS_ITS | Patient Health Record ---
Author Organization [facility] Address [address] [place] [address] Care Team Providers Care Head Housekeeper Name Role Phone Tamar Rene Unavailable [phone] Reason For Referral No Information Medications Medication [...] CALCIUM 2 % TOPICAL CREAM *Reorder from [employer] for eRx and Interaction Alerts* Active Creon 36,000-114,000- 180,000 unit Oral *Pick strength-form from [employer] for eRX* Active Flowflex COVID-19 Ag Home Test In Vitro *Reorder from [employer] for eRx and Interaction Alerts* Active Diclofenac Sodium 50 MG Oral Active predniSONE 10 MG Oral Act antionette Omeprazole 40 MG Oral Act antionette Furosemide 20 MG Oral Act antionette Morphine Sulfate 15 MG Oral Active traMADol HCl 50 MG Oral A ctive Metoprolol Succinate ER 50 MG Oral Active Buprenorphine 7.5 mcg/hour Transdermal *Pick strength-form from [employer] for eRX* Active Colestipol HCl 1 GM Oral Active Azelastine HCl 137 MCG/SPRAY Nasal Active Simponi 50 mg/0.5 mL Subcutaneous Active predniSONE 20 MG Oral Act antionette Ibuprofen 600 MG Oral Act antionette Warfarin Sodium 3 MG Oral Active ENBREL SURECLICK 50 MG/ML (1 ML) SUBCUTANEOUS PEN INJECTOR *Reorder from [employer] for eRx and Interaction Alerts* Active Metoprolol Tartrate 50 MG Oral Active Doxycycline Hyclate 100 MG Oral Active ProAir HFA 108 (90 Base) MCG/ACT Inhalation Active hydrOXYzine HCl 25 MG Oral Active AZELASTINE 205.5 MCG (0.15 %) NASAL SPRAY *Reorder from [employer] for eRx and Interaction Alerts* Active Buprenorphine 5 mcg/hour Transdermal *Pick strength-form from [employer] for eRX* Active rOPINIRole HCl 1 MG [...] & 10 x 100MG Oral *Reorder from [employer] for eRx and Interaction Alerts* Active methylPREDNISolone 4 MG Oral Active Methotrexate 2.5 MG Oral Active predniSONE 5 MG Oral Acti ve Nitrofurantoin Monohyd Macro 100 MG Oral Active Nystatin 551903 UNIT/GM External Active Folic Acid 1 MG Oral Acti ve Plan Of Treatment No Information Insurance Providers Payer Name Payer Address Payer Phone Subscriber Number Group Number Insured Name Patient Relationship to Insured Coverage Start Date Coverage End Date Medicare-I l Medicare [address] [place] [phone] [id number] ALONDRAJERRY ALEJANDRENA Self - patient is the insured Medicaid-I l Medicaid [address] [address] [place] [address] [id number] ALONDRAJERRY ALEJANDRENA Self - patient is the insured
--- OUTSIDE RECORDS SUMMARY | 2025-02-16 16:46 | XMS_ITS | Encounter Summary ---
Author Organization [facility] Healthcare Address [address] [place] [address] Care Team Providers Care Multisensor Intelligence Officer Name Role Phone Tom Paz MD Primary Care Provider [phone] Tab Taylor MD Unavailable Favian Caceres MD Unavailable Reason for Visit * Reason Onset Date Comments Scheduling Appointments 04/15/2024 Schedule patient for Imaging Genicular RFA Right (22194) and 1m follow Encounter Details Date Type Department Care Team (Late st Contact Info) Description 04/15/2024 Telephone [facility] [address] [address], [address] [place] [address] Dougie Lord MD [address] [address] Scheduling Appointments (Schedule patient for Imaging Genicular RFA Right ([address]) and 1m follow ) Social History Tobacco Use Types Packs/Day Years Used Date Smoking Tobacco: Never Passive Smoke Exposure: Past Smokeless Tobacco: Never Alcohol Use Standard Drinks/Week Comments No 0 (1 standard drink = 0.6 oz pur e alcohol) [facility] Utilities Answer Date Recorded In the past 12 months has [employer], gas, oil, or water [employer] threatened to shut off services in your [...] often do you attend chur ch or methodist services? 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
--- OUTSIDE RECORDS SUMMARY | 2025-02-16 16:46 | XMS_ITS | Encounter Summary ---
Author Organization [facility] Address [address] [place] [address] Phone Care Team Providers Care Relish Maker Name Role Phone Tom Paz MD Primary Care Provider [phone] Tab Taylor MD Unavailable [phone] Favian Caceres MD Unavailable [phone] Encounter Details Date Type Department Care Team (Latest Contact Info) Description 01/24/2025 Results Follow-Up [facility] [address] [place] [address] Claudia Cristobal, SIMON [address] [place] [address] CBC with auto differential, Comprehensive metabolic panel Social History Tobacco Use Types Packs/Day Years Used Date Smoking Tobacco: Never Passive Smoke Exposure: Past Smokeless Tobacco: Never Alcohol Use Standard Drinks/Week Comments No 0 (1 standard drink = 0.6 oz pur e alcohol) [facility] Utilities Answer Date Recorded In the past 12 months has [employer] gas, oil, or water company threatened to [...] often do you attend chur ch or yazidi services? 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
--- OUTSIDE RECORDS SUMMARY | 2025-02-16 16:46 | XMS_ITS ---
Author Organization [facility] Address [address] [place], [place] [address] Care Team Providers Care Field Evidence Technician Name Role Phone CATHI SILVA Unavailable [phone] Tom Paz Unavailable Unavailable REASON FOR VISIT *Callus Care Encounters Encounter Location Date Provider Diagnosis [facility] [place] [place], [place] [id number] 10/24/2024 CATHI SILVA Plan Of Treatment No Information Progress Notes * ALONDRANaye ALEJANDREDOB:1965 ( 59 yo F)Acc No.[id number]:10/24/2024 Patient: Naye RAI Provider: Sammi Silva DPM :1965 A ge:59 Y S ex:Female Date:10/24/2024 Address:[address] [place] [address], [facility] [address], [place] Subjective: * Chief Complaints: * 1 . *Callus Care. * Medical History: Objective: * Vitals: Assessment: Plan: * Treatment: * Billing Information: * Visit Code: * Procedure Codes: * Electronic signature of CATHI SILVA DPM on 02/16/2025 at 04:46 PM CDT Sign off status: Pending * Provider: Sammi Silva DPM Date: 0 10/24/2024 Generated for Printi ng/Faxing/eTransmitting on: 0 02/16/2025 04:46 PM CDT
--- OUTSIDE RECORDS SUMMARY | 2025-02-16 16:46 | XMS_ITS | Continuity of Care Document ---
Author Organization [facility] Address [address] [place] [address] [address] [place] [address] Phone Care Team Providers Care Net Lead Architect Name Role Phone Anthony Gutierrez Unavailable Unavailable [...] Providers Copied on Encounter Office/outpat ient Visit, [facility], [address] [place] [address] [address], [place], [place], [id number], [place] tel:[phone] SEC [facility] No Information 0 0 Krishnasamy Anthony. [address] [facility] [address], [place], [address], [place]. tel:[phone] Office/outpat ient Visit, [facility], [address] [place] [address] [address], [place], [place], [id number], [place] tel:[phone] [facility] [place] No Information 0 0 Krishnasamy Anthony. [address] [facility] [place] [address], [place], [place], [facility] [place], [place]. tel:[phone] Office/outpat ient Visit, [facility] Eye [facility], [address] [place] [address] [address], [place], [place], [id number], [place] tel:[phone] SEC [facility] No Information Fe-2 3-201 0 Krishnasamy Anthony. [address] [facility] [place] [address], [place], [place], [facility] [place], [place]. tel:[phone] [facility], [address] [place] [address] [address], [place], [place], [id number], [place] tel:[phone] [facility] No Information Jan-3 1-200 9 Krishnasamy Anthony. [facility] [address], [place], [place], [facility] [place], [place]. tel:[phone] [facility], [address] [place] [address] [address], [place], [place], [id number], [place] tel:[phone] SEC [facility] [place] No Information You-2 2-200 9 Krishnasamy Anthony. [address] [place], [place] [address]ate [place] [address], [place], [place], [facility] [place], [place]. tel:[phone] [facility], [address] [place] [address] [address], [place], [place], [id number], [place] tel:[phone] [facility] [place] No Information May-0 8-200 9 Krishnasamy Anthony. [facility] [place] [address], [place], [place], [facility] [place], [place]. tel:[phone] [facility], [address], [place], [place], [address], [place] tel:[phone] [facility] No Information Apr-2 8-200 7 Montes OD Simone. [address], [place], [place], [facility], [place]. tel:[phone] Family History Family Member Type Diagnosis Age At Onset No Information Payers Payer name Insurance type Covered republican ID Authoriza tion(s) Medicare [facility] [id number] Medicaid [facility] [id number] Social History Type Description Quantity Date Captured [...]
--- OUTSIDE RECORDS SUMMARY | 2025-02-16 16:46 | XMS_ITS | Encounter Summary ---
Author Organization [facility] Address [address] [place] [address] Care Team Providers Care Regional Climate Change Analyst Name Role Phone Tom Paz MD Primary Care Provider [phone] Tab Tyalor MD Unavailable [phone] Favian Caceres MD Unavailable [phone] Encounter Details Date Type Department Care Team (Late st Contact Info) Description 02/11/2024 Documentation [facility] Case Management [address] [place] [address] Gaviota Benz, RN Social History Tobacco Use Types Packs/Day Years Used Date Smoking Tobacco: Never Passive Smoke Exposure: Past Smokeless Tobacco: Never Alcohol Use Standard Drinks/Week Comments No 0 (1 standard drink = 0.6 oz pur e alcohol) [facility] Utilities Answer Date Recorded In the past 12 months has [employer], gas, oil, or water [employer] threatened to shut off services in your home? Yes 02/11/2024 Social Connection and Isolat ion Panel [NHANES] Answer Date Recorded In a typical week, how many times do you talk on the phone with family, friends, or neighbors? Once a week 02/11/2024 How often do you get togethe r with friends or relatives? Once a week 02/11/2024 How often do you attend [facility] or sabianist services? More than 4 times [...] place to sleep or slept in a skilled nursing (including now)? No 11/02/2023 Housing Stability Vital [...] time in the past 12 m [facility], were you homeless or living in a skilled nursing (including now)? No 02/11/2024 Personal Safety Answer Date Recorded Have you ever been in or are you currently in a harmful physical or emotional relationship or is someone making you feel afraid or unsafe? 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 Gender Identity Not on file Sexual Orientation [...] Medicare and IDPA Prescription Coverage: Yes Pharmacy: [facility][id number] [place], [place] - [address] [facility] [address] [id number] [place], [place] [address] [facility] [address] [facility] - [place], [place] - [address] [facility] [address] [facility] [address] [place], [place] - [address] [facility] [address] [facility] [address] Primary Care Provider: Tom Paz MD Prior to Admission: Functional Status: Minimal assist with ADLs Primary Caregiver: Private caregiver Support System: Children, Friends/neighbors (Son: Porter Serrano [phone]/Friend: Federico [phone]) Home Care Services: Yes Type of Home Care Services: chemical research worker (chemical research worker 5 days per week, 5-6.25 hour [...] were you homeless or living in a skilled nursing (including now)?: No (02/11/24 1634) Utilities: Yes (SW Consult), (02/11/241634) Social Connections: In a typical week, how many times do you talk on the phone with family, friends, or neighbors?: Once a week How often do you get together with friends or relatives?: Once a week How often do you attend hindu or sabianist services?: More than 4 times per year Do you belong to any clubs or organizations such as hindu groups, unions, fraternal [...] reports needing assistance with ADLs. Has a track worker and has a quad cane and [...] Collaboration with Patient, Provider, Direct Care Nurse, School Psychologist Assistant, and other members of theHealth Care Team to assure needed interventions completed. 2. Return patient to optimal level of self-care post discharge. 3. Filling Mixer will follow for Discharge Planning - interventions as needed 4. Anticipated level of care at discharge 5. Planned Discharge Disposition SONALI [employer], RN drill rig operator helper [phone] documented in this encounter Plan of Treatment [...] on filedocumented in this encounter Care Teams Regional Climate Change Analyst Relationship Specialty Start Date End Date Tom Paz MD PCP - General 09/09/16 Tab Tyalor MD [address] [place] [address] Consulting Physician Cardiology 01/03/20 Favian Caceres MD [address] [place] [address] Consulting Physician Rheumatology 08/28/23 documented as of this encounter
--- OUTSIDE RECORDS SUMMARY | 2025-02-16 16:47 | XMS_ITS | Referral Summary ---
Author Organization [facility] Address [address] [place] [address] Care Team Providers Care Tours Hostess Name Role Phone Tom Paz MD Primary Care Provider [phone] Tab Taylor MD Unavailable Favian Caceres MD Unavailable Encounters Date Type Department Care Team Description 5 11:00 AM CDT - 5 11:59 PM CDT Hospital Encounter [facility] at [address], [address] [place] [address] Dougie Lord MD Right knee pain, unspecified chronicity (Primary Dx) Discharge Disposition: Discharge to home or self care 5 8:20 AM CDT Office Visit [facility] [address] [place] [address] Medical Office Building [address] [place] [address] Roge Dowell MD CELINA (obstructive sleep apnea) (Primary Dx); Obstructive sleep apnea (adult) (pediatric) 5 Results Follow-Up [address] [address] Noreen-Schm Claudia ha PA CBC with auto differential, Comprehensive metabolic panel 5 Documentation [facility] Gastroenterolog y [address] [address] 12th [place] [address] HarshadCarlie Meryl 5 10:30 AM CDT Office Visit [facility] [address] [place] [phone] Noreen-Schm Claudia ha PA Seronegative rheumatoid arthritis (HCC) (Primary Dx); Encounter for long-term (current) use of high-risk medication 5 Telephone [facility] at [address], [address] [place] [address] Dougie Lord MD POST CALL 5 Orders Only [facility] [address], [address] [place] [address] Dougie Lord MD 5 Telephone [facility] [address], [address] [place] [address] Dougie Lord MD Post Procedure Pain 5 Documentation Cardiology Sofiya Rosa NP 5 9:36 AM CDT - 5 11:59 PM CDT Hospital Encounter [facility] Radiology [address] [place] [address] Transient ischemic attack (TIA); Cerebrovascular disease, unspecified; Unspecified visual loss; Presence of cardiac pacemaker Discharge Disposition: Discharge to home or self care 5 9:35 AM CDT - 5 11:59 PM CDT Hospital Encounter [facility] Radiology [address] [place] [address] Encounter for imaging to screen for metal prior to magnetic resonance imaging (MRI) Discharge Disposition: Discharge to home or self care 5 8:47 AM CDT - 5 11:59 PM CDT Hospital Encounter [facility] Radiology [address] [place] [address] Unspecified injury of right shoulder and upper arm, initial encounter Discharge Disposition: Discharge to home or self care 5 10:22 AM CDT - 5 11:59 PM CDT Hospital Encounter [facility] at [facility] [address] [place] [address] Dougie Lord MD Right knee pain, unspecified chronicity Discharge Disposition: Discharge to home or self care 5 Telephone [facility] at [facility] [address], [address] [place] [phone] Dougie Lord MD Pre-Surgical Call 5 Telephone [facility] Dermatology [address] [facility] [address] [place] [phone] Luis Hobbs RMA Med Refill (HC 2.5% Cr) 5 Telephone [facility] Gastroenterolog y [address] [facility] 12th [place] [address] [place] [address] aCrlie Patricia Prior Auth 5 Orders Only [facility] Gastroenterolog y [address] [place] [address] Trey Arroyo MD 5 Results Follow-Up [facility] Endoscopy [address] [place] [address] Abdomen Pelvis W Contrast 5 7:04 AM CDT - 5 11:59 PM CDT Hospital Encounter [facility] [address] [place] [address] Trey Arroyo MD Abdominal pain; Nausea and vomiting, unspecified vomiting type Discharge Disposition: Discharge to home or self care 5 E-Visit [facility] [address] [place] [phone] Claudia Abdalla PA Ultrasound 5 Orders Only [facility] [address] [place] [phone] Claudia Abdalla PA 5 Orders Only [facility] Gastroenterolog y [address] [facility] 2nd [address] [place] [address] Trey Arroyo MD Abdominal pain (Primary Dx); Nausea and vomiting, unspecified vomiting type 5 Results Follow-Up [facility] Gastroenterolog y [address] [facility] Medical Office Building [address], [address] [place] [address] Trey Arroyo MD Surgical pathology 5 11:00 AM CDT - 5 11:30 AM CDT Surgery [facility] Endoscopy [address] [place] [address] Trey Arroyo MD ESOPHAGOGASTRODUODENOSCOPY BIOPSY 5 11:18 AM CDT Anesthesia Event [facility] Endoscopy [address] [place] [address] Pepe Muller MD Hughett, Elizabeth Ann, CRNA 5 9:53 AM CDT - 5 12:36 PM CDT Hospital Encounter [facility] Endoscopy [address] [place] [address] Trey Arroyo MD Abdominal pain; Nausea Discharge Disposition: Discharge to home or self care 5 Documentation [facility] Gastroenterolog y [address] [facility] 2nd Floor [address] [place] [address] Valerie [place] LPN GI pre procedure screening 5 Orders Only [facility] [address] [facility] [address] 2[address] [place] [address] Trey Arroyo MD Abdominal pain (Primary Dx); [...] - blisters Etanercept Itching Low 02/24/2022 Gum [place] Unknown 05/12/2023 Gum Hcbklk-Sqpjux-Atfx-Alcoho l Blisters,Rash High 12/17/2021 Mastisol - blisters [...] mouth 2 (two) times a day Active dexlansoprazole (DEXILANT) 60 mg capsule Take [...] Active Problems Problem Noted Date Diagnosed Date Obstructive sleep apnea 01/27/2025 CELINA (obstructive sleep apnea) 01/25/2025 CHB (complete [...] [employer] Assessment & Plan (07/28/2024 11:19 AM EMAIL MARKETING COORDINATOR): Monitor routine labs while on immunosuppressive medications. [...] [employer] Assessment & Plan (09/22/2023 12:26 PM EMAIL MARKETING COORDINATOR): Monitor routine labs while on immunosuppressive medications. [...] [employer] Assessment & Plan (09/11/2022 12:48 PM EMAIL MARKETING COORDINATOR): Monitor routine labs while on immunosuppressive medications. Recent 2/ labs stable. 06/2020: Neg Hep B/C 03/2021: Neg [employer] Assessment & Plan (07/01/2022 9:25 AM EMAIL MARKETING COORDINATOR): Monitor routine labs while on immunosuppressive medications. [...] QuantGold Assessment & Plan (08/19/2021 2:31 PM EMAIL MARKETING COORDINATOR): Monitor routine labs while on immunosuppressive medications. [...] Hospitalized for total of 8 days, at [facility]. Had CT brain/neck angio that were unremarkable. [...] Hospitalized for total of 8 days, at [facility]. Had CT brain/neck angio that were unremarkable. [...] 07/24/2020 Assessment & Plan (07/24/2020 12:34 PM EMAIL MARKETING COORDINATOR): Her greatest pain complaint at this time [...] 07/24/2020 Assessment & Plan (07/01/2022 2:12 PM EMAIL MARKETING COORDINATOR): Self weaned off Cymbalta 2 days ago [...] exercise. Assessment & Plan (08/27/2020 2:41 PM EMAIL MARKETING COORDINATOR): Fatigue with sensation of pain all over [...] exercise. Assessment & Plan (07/24/2020 12:36 PM EMAIL MARKETING COORDINATOR): Fatigue with sensation of pain all over [...] PT. Assessment & Plan (08/28/2020 12:26 PM EMAIL MARKETING COORDINATOR): Multifocal OA (hands and hips) per recent xrays. Continue Tylenol 500 mg qid. Continue PT. Assessment & Plan (07/24/2020 12:41 PM EMAIL MARKETING COORDINATOR): Multifocal OA (hands and hips) per recent [...] osteopenia with senior care use of steroids. Labs today. To return in 6 weeks for re-evaluation - this can be moved out to 3 months if joints remain stable. Assessment & Plan (07/28/2024 11:22 AM EMAIL MARKETING COORDINATOR): Off MTX (oral ulcers/hair thinning). Remains on [...] increase blood glucose, glaucoma and osteopenia with adjunct faculty for medical terminology use of steroids. She was strongly encouraged [...] needed. Assessment & Plan (09/22/2023 12:32 PM EMAIL MARKETING COORDINATOR): A 09/2022 repeat left hand/wrist US demonstrated [...] needed. Assessment & Plan (09/11/2022 12:48 PM EMAIL MARKETING COORDINATOR): Continued 15mg MTX weekly and monthly Simponi [...] Chan. Assessment & Plan (08/06/2022 9:00 PM EMAIL MARKETING COORDINATOR): Has continued 15mg MTX weekly as well [...] we have no access to them through [employer]. She already had an OV scheduled for 09/02 - will re-evaluate joints at that time and consider repeat hand US if synovitis is absent/minimal on exam but she is still noting pain -to evaluate for underlying inflammation. She may require change in biologic medication. Assessment & Plan (07/01/2022 2:09 PM EMAIL MARKETING COORDINATOR): CDAI 37, high Off Enbrel due to ISRs. Continued MTX and Simponi injections. Noted improvement after prednisone taper at last visit. Joints were feeling good until a few weeks ago when she returned from a trip to [place] an self weaned off Cymbalta. Now with [...] She is to follow up with her product info specialist soon due to low BP following [...] increase blood glucose, glaucoma and osteopenia with adjunct faculty for medical terminology use of steroids. Continue 15mg MTX weekly [...] Chan. Assessment & Plan (08/19/2021 9:00 PM EMAIL MARKETING COORDINATOR): CDAI 25. On 15mg MTX weekly but has only taken 3 Enbrel injections so far. Just completed a medrol dose pack from her product info specialist due to inflammation around her heart [...] incontinence. Has followed up with PCP and product info specialist - started Ubrelvy for JACKSON and product info specialist is to adjust her pacemaker on [...] pen with her during her trip to [place] (leaves and returns around the ). A letter was provided for OZ to allow Humira to be brought as [...] needed. Assessment & Plan (08/28/2020 12:26 PM EMAIL MARKETING COORDINATOR): Our workup showed an JANNET 1:160 but [...] needed. Assessment & Plan (07/24/2020 12:33 PM EMAIL MARKETING COORDINATOR): 54yoF referred for evaluation due to +JANNET [...] reassess. Assessment & Plan (07/06/2020 4:49 PM EMAIL MARKETING COORDINATOR): 54yoF referred for evaluation due to +JANNET [...] (12/13/2019): Added automatically from request for surgery [id number] SVT (supraventricular tachycardia) 12/13/2019 Overview (12/13/2019): Added automatically from request for surgery [id number] A-fib 11/24/2019 Overview (11/24/2019): Added automatically from request for surgery [id number] Laryngopharyngeal reflux (LPR) 08/04/2018 Assessment & Plan (10/20/2018 12:26 PM CDT): No longer taking the omeprazole and ranitidine as prescribed. Patient is no longer experiencing any coughing, sinonasal or throat symptoms. Assessment & Plan (08/04/2018 1:17 PM EMAIL MARKETING COORDINATOR): Add omeprazole 40 mg Q morning 30 [...] resume. Assessment & Plan (08/04/2018 1:11 PM EMAIL MARKETING COORDINATOR): Patient's chronic cough is most likely secondary [...] reactive airway disease contributing to her cough. [facility] current use of anticoagulant therapy 1 08/28/2014 Deep vein thrombosis (DVT) 06/27/2015 Hyperthyroidism 08/31/2012 Chronic adrenal insufficiency 08/30/2012 Social History Tobacco Use Types Packs/Day Years Used Date Smoking Tobacco: Never Passive Smoke Exposure: Past Smokeless Tobacco: Never Tobacco Cessation:Counseling Given: Not Answered Alcohol Use Standard Drinks/Week Comments No 0 (1 standard drink = 0.6 oz pur e alcohol) [facility] [employer] Answer Date Recorded In the past 12 months has [employer], gas, oil, or water [employer] threatened to shut off services in your [...] often do you attend chur ch or shinto services? More than 4 times per year [...] any time in the past 12 m [facility], were you homeless or living in a [...] on file Legal Sex Female 12:21 AM EMAIL MARKETING COORDINATOR Gender Identity Not on file Sexual [...] Care Plan Chronic Care Management No Hali Brewer, RN Note: Problem: Chronic Pain Goals: 1. [...] on stairs Contact your local community or [facility] for information on exercise, fall prevention programs, or options for improving home safety. Medical Devices Implanted Type Area Fish Farm Laborer Device Identifier Shelf Expiration Date Model / Serial / Lot Ivc Filter- 7 Implanted:Qty: 1 on 06/09/2007 by Tam Fraser MD IVC Filter N/A: Vena Cava Lead-Spinal Cord Stimulator- 018 Implanted:2017 by Taran Ramirez MD (Quantity not on file) Lead Back [employer] SC-2158- 50 / / Biotronik Ra Lead ([id number])- 019 Implanted:2018 (Quantity not on file) Lead Chest Biotronik SOLIA S 45 [id number] 176 / [id number] / Lead (Rv)-05/23/2021 Implanted:2020 (Quantity not on file) Lead Heart Biotronik SOLIA S 53 377 177 / [id number] / Biotronik Paceomaker Ariana ThurmanT-12/24/2023 Implanted:2023 (Quantity not on file) Pacemaker Chest Wall Biotronik [id number] / [id number] / Spinal Cord Stimulator- 018 Implanted:Qty: 1 on 08/20/2017 by Taran Ramirez MD Spinal Cord Stimulator N/A: Back Linch Scientific SC-1200 / [id number] / Spinal Cord Stimulator Lead-08/20/2017 Implanted:2017 by Taran Ramirez MD (Quantity not on file) Spinal Cord Stimulator Back Linch Scientific Neuro- [id number] / / Hardware Thoracic-L umbar Spine Loop Recorder Chest Wall Chris Vascular System Closure Repair Femoral Artery Suture Mediated Perclose Prostyle 73375-67 - [id number] Implanted:Qty: 1 on 02/09/2024 by Morgan Roy MD at [facility] 11/16/2025 [id number] / / [id number] [employer] Percutaneous Transcatheter Amplatzer Amulet 18mm [id number] - [id number] Implanted:Qty: 1 on 02/09/2024 by Morgan Roy MD at [facility] 09/17/2027 9-[id number] [id number] / / [id number] [employer] System Closure Repair Femoral Artery Suture Mediated Perclose Prostyle 90126-73 - [id number] Implanted:Qty: 1 on 02/09/2024 by Morgan Roy MD at [facility] 11/16/2025 [id number] / / [id number] [employer] Sling Urinary Incontinence Female Stress Short Desara Blue Sis-Ds01bs - [id number] Implanted:Qty: 1 on 06/28/2024 by Shankar Mak MD at [facility] N/A: Urethra [employer] 01/04/2027 SIS-DS01 BS / / [id number] Explanted Type Area Fish Farm Laborer Device Identifier Shelf Expiration Date Model / Serial / Lot Biotronik Rv Lead ([id number])-07/04 Implanted:Qty: 1 on 07/04/2019 Explanted:Qty: 1 Lead Chest Biotronik [id number] / / Description:This lead was re placed and left behind per patient on 05/23/21 Biotronik Pacemaker ([id number])-07/04 Implanted:Qty: 1 on 07/04/2019 Explanted:Qty: 1 on 12/24/2023 Pacemaker Left: Chest Biotronik ELUNA 8 KRISTY CARBAJAL / [id number] / [id number] Procedures Procedure Name Priority Date/Time Associated Diagnosis [...] Abdominal pain Nausea COLONOSCOPY 08/02/2024 1:43 PM EMAIL MARKETING COORDINATOR HEPATITIS C ANTIBODY Routine 07/06/2020 2:58 PM EMAIL MARKETING COORDINATOR Polyarthralgia Encounter for screening for other viral [...] BLOOD ORDER IDRIS Final Result [facility] [address] [address] * Comprehensive metabolic panel (01/23/2025 11:04 AM CDT) Glucose 80 65 - 99 mg/dL [facility] [...] BLOOD ORDER IDRIS Final Result [facility] [address] [address] * MRI Shoulder Right WO Contrast (01/11/2025 [...] agrees with it. Electronically signed by: Antoine Matrínez M.D. Andrea Moran MD IMG MRI PROCEDURES Final Res ult [...] it. Electronically signed by: Trey Olivas M.D. Tom Paz MD IMG XR PROCEDURES Final Resu lt * Imaging Genicular RFA Right ([id number]) (01/06/2025 11:33 AM CDT) Narrative [facility] - 01/06/2025 11:33 AM CDT The images from this study are not interpreted by Radiology. Please refer to the physician's procedure / OR operative note. Dougie Lord MD IMCally PAIN MGMT PROCEDURES Final Result [facility] * [...] gastric) 11/23/2024 11:31 AM CDT Narrative PATHOLOGY [facility] - 11/24/2024 12:03 PM CDT EPIC results best viewed via link to PDF [facility] [place] [address] Note to Patients: This report may contain [...] Gender: F : 1965 (Age: 59) Address: [address] [place] [address] [facility] #: [id number] Taken:11/23/2024 Received:11/23/2024 Reported: 11/24/2024 Patient Type: BWC EP SAME Client [facility] Service: Gastro Location: Physician(s): Pb Steward M.D. [...] 0. rxr/11/23/2024 14:21 PA(s): Roz Mtz, MS, PA([facility])CM By this signature, I attest that the above diagnosis is based upon my personal examination of the slides(and/or other material). Addenda/Procedures Microscopic slide review and interpretation for this case was performed at [facility], Department of Surgical Pathology, [address] [facility] [address], [id number], [place] [address] CLIA # [id number] The performance characteristics of some immunohistochemical stains, fluorescence in-situ hybridization tests and immunophenotyping by flow cytometry cited in this report (if any) were determined by the Surgical Pathology and Flow Cytometry Departments at [facility] as part of an ongoing director quality assurance program and in compliance with federally mandated [...] Surgical Pathology and Flow Cytometry Departments of [facility]. It has not been cleared or approved by the U. S. Food and Drug Administration. IMAGES AND SCANNED DOCUMENTS, IF INCLUDED, ONLY VIEWABLE IN PDF VERSION OF REPORT Trey Arroyo MD LAB PATHOLOGY ORDERAB LES Final Result PATHOLOGY [facility] [phone] * EGD (11/23/2024 11:20 AM CDT) Anatomical Region Laterality Modality Other Narrative Procedure Note Trey Arroyo MD - 11/23/2024 11:20 AM CDT ENDOSCOPY LAB Patient Name: Naye Cantu Procedure Date: 11/23/2024 11:20 AM Date of : 1965 Admit Type: Outpatient Age: 59 Gender: Female Attending MD: Trey Arroyo M.D. Room: [facility] ENDOSCOPY ROOM 03 Note Status: Finalized Procedure: [...] and oxygen saturations were monitored continuously. The [id number] was introduced through the mouth, and advanced [...] During normal business hours - Please call [facility] [place] [place] Coordinator: [phone] After hours, evening, nights, weekends and holidays- Please call the hospital escalator operator at and ask for the GI fellow nutritionists. Attending Participation: I personally performed the entire procedure. Electronically signed by Trey Arroyo MD Trey Arroyo M.D. 11/23/2024 11:37:09 AM Number of Addenda: 0 Note Initiated On: 11/23/2024 11:20 AM Trey Arroyo MD ENDOSCOPY PROCEDURES Final Result * Colonoscopy (08/02/2024 1:43 PM EMAIL MARKETING COORDINATOR) Anatomical Region Laterality Modality Other Narrative Procedure Note Trey Arroyo MD - 08/02/2024 1:43 PM CST GI ENDOSCOPY [facility] Patient Name: Naye Cantu Procedure Date: 08/02/2024 1:43 PM Date of : 1965 Admit Type: Outpatient Age: 58 Gender: Female Attending MD: Trey Arroyo M.D. Room: [facility] ENDOSCOPY ROOM 8 Note Status: Finalized [...] The scope was passed under direct vision.The [id number] endoscope was introduced through the anus and advanced to the terminal ileum. The colonoscopy was performed without difficulty. The patient tolerated the procedure well. The qualityof the bowel preparation was evaluated using the BBPS (Linch Bowel Preparation Scale) with scores of:Right Colon [...] business hours - Please call theNurse Coordinator: [phone] After hours, evening, nights, weekends and holidays- Please call the hospital escalator operator at and ask for the GI fellow nutritionists. Attending Participation: I was present and participated during the entire procedure, including non-patrick portions. Electronically signed by Trey Arroyo MD Trey Arroyo M.D. 08/02/2024 2:08:56 PM . Number of Addenda: 0 Note Initiated On: 08/02/2024 1:43 PM Trey Arroyo MD ENDOSCOPY PROCEDURES Final Result * Hepatitis C antibody (07/06/2020 2:58 PM EMAIL MARKETING COORDINATOR) Hep C Ab NON-REACTI VE NON-REACT GIA [facility] SIGNAL TO CUT-OFF 0.02 <1.00 [facility] Comment: HCV antibody was non-reactive. There is no laboratory evidence of HCV infection. In most cases, no further action is required. However, if recent HCV exposure is suspected, a test for HCV RNA (test code 28599) is suggested. For additional information please refer to http://education.[employer].Kampyle/faq/WOM65m9 (This link is being provided for informational/ educational purposes only.) Blood specimen (specimen) 07/06/2020 2:58 PM EMAIL MARKETING COORDINATOR 07/06/2020 3:00 PM EMAIL MARKETING COORDINATOR Narrative [facility] - 07/11/2020 9:33 PM EMAIL MARKETING COORDINATOR PATIENT UNABLE TO VOID; ADVISED TO RETURN FOR COLLECTION. Olga MONTES LAB MICROBIOLOGY - GENERA L ORDERABLES Final Result [facility] [address] [place] [address] from Last 3 Months or Most Recently Relevant to Health Maintenance Insurance , [address] [address] MEDICARE [facility] [address] [place] [address] MEDICARE [facility] MEDICARE [facility] [address] [place] [address] MEDICARE MEDICARE [facility] [place] [address] Advance Directives For more information, please contact: [phone] * Full Code (Latest Code Status on [...] 10:10 AM 02/24/2022 4:09 PM Care Teams Tours Hostess Relationship Specialty Start Date End Date Tom Paz MD PCP - General 09/09/16 Tab Taylor MD [address] [place] [address] Consulting Physician Cardiology 01/03/20 Favian Caceres MD [facility] [address] Consulting Physician Rheumatology 08/28/23
--- OUTSIDE RECORDS SUMMARY | 2025-02-16 16:47 | XMS_ITS | Continuity of Care Document ---
Author Organization [facility] Address [address] [facility] [address] [place] [address] Phone Care Team Providers Care Inspector Returned Materials Name Role Phone Nayely OD OD, Denise [...] EST REFRACTION Medicare OFFICE/OUTPATIENT VISIT, EST REFRACTION [facility] OFFICE/OUTPATIENT VISIT, EST OFFICE/OUTPATIENT VISIT, EST REFRACTION [facility] OFFICE/OUTPATIENT VISIT, EST REFRACTION MEDICARE OFFICE/OUTPATIENT VISIT, [...] OFFICE/OUTPA TIENT VISIT, EST [facility], [address] [facility] [address], [place], [place], [id number], [place] tel:[phone] OPH CONSULT [facility] flash of light OS (chief complaint) Age-related nuclear cataract, bilateralTear film insufficiency of bilateral lacrimal glandsOther vitreous opacities, bilateral Aug-0 5 Derheimer OD Denise. [address] [facility], [address], [place], [place], [id number], [place]. tel:[phone] Referring Provider: Tom Sapp, [address], [place], [address]. tel:[phone] OFFICE/OUTPA TIENT VISIT, EST [facility], [address] [place] [address], [id number], [place] tel:[phone] OPH CONSULT [facility] Pain OS (chief complaint) Left eye painAge-relat ed nuclear cataract, bilateralOthe r vitreous opacities, bilateralTear film insufficiency of bilateral lacrimal glands Apr-0 4-202 4 Krishnasamy Anthony. [address], [address], [place], [place], [address], [place]. tel:[phone] Referring Provider: Tom Sapp, [address], [place], [address]. tel:[phone] OFFICE/OUTPA TIENT VISIT, EST [facility], [address] [place] [address], [id number], [place] tel:[phone] OPH CONSULT [facility] blurry vision (chief complaint) Age-related nuclear cataract, bilateralTear film insufficiency of bilateral lacrimal glandsOther vitreous opacities, bilateralDipl opiaHypermetr opia, bilateral Oct-2 4-202 3 Krishnasamy Anthony. [address], [address], [place], [place], [address], [place]. tel:[phone] Referring Provider: Tom Sapp, [address], [place], [address]. tel:[phone] OFFICE/OUTPA TIENT VISIT, EST [facility], [address] [place] [address], [id number], [place] tel:[phone] OPH CONSULT [facility] blurry [place] (chief complaint) Tear film insufficiency of bilateral lacrimal glandsOther vitreous opacities, bilateralAge- related nuclear cataract, bilateralDipl opiaHypermetr opia, bilateral Mar-1 0-202 2 Krishnasamy Anthony. [address], [address], [place], [place], [address], [place]. tel:[phone] Referring Provider: Tom Sapp, [address], [place], [address]. tel:[phone] OFFICE/OUTPA TIENT VISIT, EST [facility], [address] [place] [address], [id number], [place] tel:[phone] OPH CONSULT [facility] shingles (chief complaint) Herpes zoster without complicationT ear film insufficiency of bilateral lacrimal glands Apr- 1 Krishnasamy Anthony. [address], [place], [place], [id number], [place]. tel:[phone] Referring Provider: Tom Sapp, [address], [place], [address]. tel:[phone] OFFICE/OUTPA TIENT VISIT, EST [facility], [address] [place] [address], [id number], [place] tel:[phone] OPH CONSULT [facility] blurry (chief complaint) DiplopiaAge-r elated nuclear cataract, bilateralTear film insufficiency of bilateral lacrimal glandsOther vitreous opacities, bilateralHype rmetropia, bilateral Nov- 9 Krishnasamy Anthony. [address], [address], [place], [place], [address], [place]. tel:[phone] Referring Provider: Anthony Gutierrez, [address], [place], [address]. tel:[phone] OFFICE/OUTPA TIENT VISIT, EST [facility], [address] [place] [address], [id number], [place] tel:[phone] OPH CONSULT [facility] blurry vision (chief complaint) Tear film insufficiency of bilateral lacrimal glandsOther vitreous opacities, bilateralDipl opiaHypermetr opia of both eyes Oct-3 0- 8 Krishnasamy Anthony. [address], [address], [place], [place], [id number], [place]. tel:[phone] Referring Provider: Anthony Gutierrez, [address], [place], [address]. tel:[phone] OFFICE/OUTPA TIENT VISIT, EST [facility], [address] [place] [address], [id number], [place] tel:[phone] OPH CONSULT [facility] blurry vision (chief complaint) dry eyes (chief complaint) DiplopiaOther vitreous opacities, bilateralTear film insufficiency of bilateral lacrimal glandsHyperme tropia of both eyes Dec-2 7 7 Krishnasamy Anthony. [address], [address], [place], [place], [id number], [place]. tel:[phone] Referring Provider: Anthony Gutierrez, [address], [address]. tel:[phone] OFFICE/OUTPA TIENT VISIT, EST [facility], [address] [place] [address], [id number], tel:[phone] OPH CONSULT [facility] blurry vision (chief complaint) Reflex sympathetic dystrophy, unspecifiedTe ar film insufficiency , unspecifiedHy permetropia of both eyesOther vitreous opacities, bilateralDipl opia Oct-0 5-201 6 Krishnasamy Anthony. [address], [address], [id number], [place]. tel:[phone] Referring Provider: Anthony Gutierrez, [address], [address]. tel:[phone] OFFICE/OUTPA TIENT VISIT, NEW [facility], [address] [place] [address], [id number], [place] tel:[phone] Oph Consult [facility] blurry vision (chief complaint) Hypermetropia Tear film insufficiency , unspecifiedOt her vitreous opacitiesDipl opiaReflex sympathetic dystrophy, unspecified Sep-2 8-201 5 Krishnasamy Anthony. [address], [address], [id number], [place]. tel:[phone] Referring Provider: Anthony Gutierrez, [address], [place], [address]. tel:[phone] OFFICE/OUTPA TIENT VISIT, EST [facility], [address] [place] [address], [place], [place], [id number], [place] tel:[phone] Oph Consult [facility] Office Tear film insufficiency , unspecifiedRe flex sympathetic dystrophy, unspecifiedOt her vitreous opacitiesHype rmetropiaDipl opia Feb- 4 Krishmargaret Anthony. [address], [address], [place], [place], [address], [place]. tel:[phone] Referring Provider: Anthony Gutierrez, [address], [place], [address]. tel:[phone] OFFICE/OUTPA TIENT VISIT, EST [facility], [address] [place] [address], [place], [place], [id number], tel:[phone] Oph Consult [facility] Office Other vitreous opacitiesTear film insufficiency , unspecifiedDi plopiaHyperme tropia Mar- 3 Krishnasnina Anthony. [address], [address], [place], [place], [id number], [place]. tel:[phone] Referring Provider: Anthony Gutierrez, [address], [place], [address]. tel:[phone] OFFICE/OUTPA TIENT VISIT, EST [facility], [address] [place] [address], [id number], [place] tel:[phone] OPH CONSULT [facility] Tear film insufficiency , unspecifiedRe flex sympathetic dystrophy, unspecifiedDi plopiaHyperme tropia Sep- 3 Krishnasnina Anthony. [address], [address], [place], [place], [address], [place]. tel:[phone] Referring Provider: Anthony Gutierrez [address], [place], [address]. tel:[phone] OFFICE/OUTPA TIENT VISIT, EST [facility], [address], [id number], tel:[phone] OPH CONSULT [facility] Tear film insufficiency , unspecifiedDi plopia 2 Brenda Cruz. [address], [address], [address], . tel:[phone] Referring Provider: Anthony Gutierrez, [address], [place], [address]. tel:[phone] OFFICE/OUTPA TIENT VISIT, NEW [facility], [address] [place] [address], [place], [place], [id number], tel:[phone] OPH CONSULT [facility] DiplopiaHeada cheHypermetro tierra 1 Brenda Cruz. [address], [address], [place], [place], [address], . tel:[phone] Family History Family Member Type Diagnosis Age At Onset Son Problem (finding) Lazy eye Payers Payer name Insurance type Covered libertarian ID Authorjosea tirin(s) [place] [id number] [place] [id number] Social History Type Description Quantity Date Captured [...] Pt saw Dr Nai Sotelo at [facility] for prism. Pt did not update Rx, [...] 063, OS +1.75+0.75x 080. Patient will see Ocalanahun Richardson (paperhanger apprentice) @ [facility] for prisms/glasses. Related to Headaches Hyperopia, OU [...] +1.75+0.75x 082. Patient will see Smita Richardson (paperhanger apprentice) @ [facility] 12/24/2010 for motility exam and measurements for [...]
--- OUTSIDE RECORDS SUMMARY | 2025-02-16 16:47 | XMS_ITS | Patient Health Record ---
Author Organization [facility] Address [address] [place], [place] [address] Care Team Providers Care Weighmaster Lead Name Role Phone CATHI SILVA Unavailable [phone] Tom Paz Unavailable Unavailable CATHI BYNUM Unavailable [phone] Allergies Allergen (clinical drug ingredient) Drug/Non Drug [...] Location Date Provider Diagnosis [facility] [place] [address] [place], [place] [id number] 09/19/2024 CATHI SILVA Tinea pedis B35.3 ; Acquired keratosis [keratoderma] palmaris et plantaris L85.1 ; Metatarsalgia, right foot M77.41 ; Metatarsalgia, left foot M77.42 ; Other eczema L30.8 ; Pain in right foot M79.671 and Left foot pain M79.672 [facility] [address] [facility] [address] [place], [place] [id number] 09/21/2024 CATHI SILVA Assessments Encounter Date Diagnosis [...] erythematous, pruritic, scales or erosions between toes. [place]-type tinea pedis affects the soles and medial [...] the patient use an emollient such as nmvj-eio-tzmzytu Eucerin cream, Vanicream, or other lotion to [...] Date Coverage End Date Medicare Part B [facility] [address] [place] [address] [id number] Naye Hart Self - patient is the insured 0 Medical (General) History Medical History History ICD Code fibromyalgia anemia Leg/Feet cramps stroke rheumatoid arthritis Heart Disease Blood clots restless leg syndrome Back Trouble low blood pressure Surgical History Surgery Date(Month/Year) Tubal Ligation Pacemaker Hernia
--- OUTSIDE RECORDS SUMMARY | 2025-02-16 16:47 | XMS_ITS | Clinical Summary ---
Author Organization [facility] Address [address] [place] [address] Care Team Providers Care School Psychology Professor Name Role Phone Tom Paz MD Primary Care Provider [phone] Allergies Active Allergy Reactions Criticality Noted Date [...] blisters Etanercept Swelling Low 12/09/2023 Embrel Gum Falspn-Pybdif-Vfsz-Alcoho l Rash Low 12/09/2023 Mastisol - blisters [...] this topic Medical Devices Implanted Type Area Editor Sound Device Identifier Shelf Expiration Date Model / Serial / Lot Tyrx Antibacterial Envelope Med [id number] - [id number] Implanted:Qty: 1 on 12/24/2023 at [facility] Mesh Left: Chest [employer]- CARD RHYTHM MGMT 10/01/2024 [id number] / / [id number] Neuro Stimulator Neuro Stimulator BodeTree SC-1200 / / Description:leads: SC- Need lead numbers Dc Ppm Gen Implanted:Qty: 1 on 12/24/2023 by Burton Forbes MD at [facility] N/A: Chest Wall [id number] / [id number] / Explanted Type Area Editor Sound Device Identifier Shelf Expiration Date Model / Serial / Lot Dc Eluna 8 Ppm Gen Explanted:Qty: 1 on 12/24/2023 by Burton Forbes MD at [facility] Pacemaker Chest Wall [employer] ELUNA 8 KRISTY / [id number] / Description:Implant date: Per [employer] Rep - NOT MRI safe (extra cap lead -ABANDONED LEAD - NO MRI -lizandro 08/14/23 Insurance MEDICARE PART A AND B BCBS [employer] [id number] [place] [address] MEDICARE PART A AND B [address] [place] [address] RX [employer] RX Member Subscriber Plan / Payer (Ef fective 2023-Present) Name:Naye Hart Relation to Subscriber:Self Name:Naye Hart Subscriber ID:Not on file Payer ID:Not on file Group ID:[id number] Type:RX Commercial Address: [address] Advance Directives For more information, please contact: [phone] Documents on File Type Date Recorded Patient Medical Office Supervisor Expl anation Advance Directive POA 12/24/2023 8:33 AM Ad valenzuela Directive POA * Full Code (Latest Code Status on File) Date Activated Date Inactivated Comments 12/24/2023 3:32 PM 12/25/2023 12:17 PM Care Teams School Psychology Professor Relationship Specialty Start Date End Date Tom Paz MD [address] [place] [address] PCP - General Family Practice 01/28/22
--- OUTSIDE RECORDS SUMMARY | 2025-02-16 16:47 | XMS_ITS | Encounter Summary ---
Author Organization [facility] Address [address] [place] [address] Phone Care Team Providers Care Charger Operator Helper Name Role Phone Tom Paz MD Primary Care Provider [phone] Tab Taylor MD Unavailable [phone] Favian Caceres MD Unavailable [phone] Encounter Details Date Type Department Care Team (Late st Contact Info) Description 12/06/2024 E-Visit [facility] [address] [place] [address] Claudia Cristobal, [address] [place] [address] Ultrasound Social History Tobacco Use Types Packs/Day Years Used Date Smoking Tobacco: Never Passive Smoke Exposure: Past Smokeless Tobacco: Never Alcohol Use Standard Drinks/Week Comments No 0 (1 standard drink = 0.6 oz pur e alcohol) [facility] Utilities Answer Date Recorded In the past 12 months has [employer], gas, oil, or water [employer] threatened to shut off services in your [...] any clubs o r organizations such as zoroastrian groups, unions, fraternal or athletic groups, or [...] any time in the past 12 [facility], were you homeless or [...] on file Legal Sex 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
--- OUTSIDE RECORDS SUMMARY | 2025-02-16 16:47 | XMS_ITS | Patient Health Record ---
Author Organization [facility] Address [address] [place], [place] [address] Care Team Providers Care Executor Of Estate Name Role Phone Jackson BRYANT, Tom Primary Care Provider Cecilia Nicole Unavailable [phone] ALLERGIES Allergen (clinical drug ingredient) Drug/Non Drug [...] osteoarthritis of right knee (M17.11) Active confirmed [id number] Problem Closed nondisplaced fracture of acromial end of left clavicle, initial encounter (S42.035A) Active confirmed [id number] Problem Closed nondisplaced fracture of acromial end of left clavicle with routine healing, subsequent encounter (S42.035D) Active confirmed 1966609 Problem Right hip pain (M25.551) Active confirmed Right hip pain (640971033595589) Problem Left hip pain (M25.552) Active confirmed Arthralgia of t he pelvic region and thigh (508538485) Problem Primary localized osteoarthritis of right knee (M17.11) Active confirmed Primary osteoarthritis (127318497) Problem Pes anserine bursitis (M70.50) Active confirmed [id number] PLAN OF TREATMENT Pending Test Test Name Order Date X ray : Hip, left, 2 02/24/2018 X ray : Hip, right, 2 02/24/2018 X ray : Knee, right 3 views 11/30/2017 Insurance Providers Payer Name Payer Address Payer Phone Subscriber Number Group Number Insured Name Patient Relationship to Insured Coverage Start Date Coverage End Date Medicare Services [address] [address] [place] [address] [id number] Naye Hart Self - patient is the insured 0 Medicaid [address] [place] [id number] Naye Hart Self - patient is the [...]
--- OUTSIDE RECORDS SUMMARY | 2025-02-16 16:47 | XMS_ITS | Clinical Summary ---
Author Organization [facility] Address [address] [place] [address] Care Team Providers Care Rn Otolaryngology Name Role Phone Tom Paz MD Primary Care Provider [phone] Tab Taylor MD Unavailable Favian Caceres MD Unavailable [phone] Allergies Active Allergy Reactions Criticality Noted Date [...] - blisters Etanercept Itching Low 02/24/2022 Gum Herndon Unknown 05/12/2023 Gum Sionzc-Iednko-Kdjw-Alcoho l Blisters,Rash High 12/17/2021 Mastisol - blisters [...] QuantGold Assessment & Plan (07/28/2024 11:19 AM DRAPERY COUNSELOR): Monitor routine labs while on immunosuppressive medications. [...] QuantGold Assessment & Plan (09/22/2023 12:26 PM DRAPERY COUNSELOR): Monitor routine labs while on immunosuppressive medications. [...] QuantGold Assessment & Plan (09/11/2022 12:48 PM DRAPERY COUNSELOR): Monitor routine labs while on immunosuppressive medications. Recent 08/20 labs stable. 06/2020: Neg Hep B/C 03/2021: Neg QuantGold Assessment & Plan (07/01/2022 9:25 AM DRAPERY COUNSELOR): Monitor routine labs while on immunosuppressive medications. [...] QuantGold Assessment & Plan (08/19/2021 2:31 PM DRAPERY COUNSELOR): Monitor routine labs while on immunosuppressive medications. [...] Hospitalized for total of 8 days, at [facility] and then [facility]. Had CT brain/neck angio that were [...] Hospitalized for total of 8 days, at [facility] and then [facility]. Had CT brain/neck angio that were [...] 07/24/2020 Assessment & Plan (07/24/2020 12:34 PM DRAPERY COUNSELOR): Her greatest pain complaint at this time [...] 07/24/2020 Assessment & Plan (07/01/2022 2:12 PM DRAPERY COUNSELOR): Self weaned off Cymbalta 2 days ago [...] exercise. Assessment & Plan (08/27/2020 2:41 PM DRAPERY COUNSELOR): Fatigue with sensation of pain all over [...] exercise. Assessment & Plan (07/24/2020 12:36 PM DRAPERY COUNSELOR): Fatigue with sensation of pain all over [...] PT. Assessment & Plan (08/28/2020 12:26 PM DRAPERY COUNSELOR): Multifocal OA (hands and hips) per recent xrays. Continue Tylenol 500 mg qid. Continue PT. Assessment & Plan (07/24/2020 12:41 PM DRAPERY COUNSELOR): Multifocal OA (hands and hips) per recent [...] increase blood glucose, glaucoma and osteopenia with half-way use of steroids. Labs today. To return in 6 weeks for re-evaluation - this can be moved out to 3 months if joints remain stable. Assessment & Plan (07/28/2024 11:22 AM DRAPERY COUNSELOR): Off MTX (oral ulcers/hair thinning). Remains on [...] increase blood glucose, glaucoma and osteopenia with half-way use of steroids. She was strongly encouraged [...] needed. Assessment & Plan (09/22/2023 12:32 PM DRAPERY COUNSELOR): A 09/2022 repeat left hand/wrist US demonstrated [...] in preparation for SI joint fusion on 5/31. Reports constant pain in her hands/feet but [...] needed. Assessment & Plan (09/11/2022 12:48 PM DRAPERY COUNSELOR): Continued 15mg MTX weekly and monthly Simponi [...] Chan. Assessment & Plan (08/06/2022 9:00 PM DRAPERY COUNSELOR): Has continued 15mg MTX weekly as well [...] we have no access to them through [employer]. She already had an OV scheduled for 09/02 - will re-evaluate joints at that time and consider repeat hand US if synovitis is absent/minimal on exam but she is still noting pain -to evaluate for underlying inflammation. She may require change in biologic medication. Assessment & Plan (07/01/2022 2:09 PM DRAPERY COUNSELOR): CDAI 37, high Off Enbrel due to ISRs. Continued MTX and Simponi injections. Noted improvement after prednisone taper at last visit. Joints were feeling good until a few weeks ago when she returned from a trip to [place] an self weaned off Cymbalta. 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 Continue 15mg MTX weekly [...] Chan. Assessment & Plan (08/19/2021 9:00 PM DRAPERY COUNSELOR): CDAI 25. On 15mg MTX weekly but has only taken 3 Enbrel injections so far. Just completed a medrol dose pack from her studio couch frame builder due to inflammation around her heart (pericarditis?). [...] incontinence. Has followed up with PCP and studio couch frame builder - started Ubrelvy for JACKSON and studio couch frame builder is to adjust her pacemaker on 05/23. [...] the ). A letter was provided for [facility] to allow Humira to be brought [...] needed. Assessment & Plan (08/28/2020 12:26 PM DRAPERY COUNSELOR): Our workup showed an JANNET 1:160 but [...] needed. Assessment & Plan (07/24/2020 12:33 PM DRAPERY COUNSELOR): 54yoF referred for evaluation due to +JANNET [...] reassess. Assessment & Plan (07/06/2020 4:49 PM DRAPERY COUNSELOR): 54yoF referred for evaluation due to +JANNET [...] (12/13/2019): Added automatically from request for surgery [id number] SVT (supraventricular tachycardia) 12/13/2019 Overview (12/13/2019): Added automatically from request for surgery [id number] A-fib 11/24/2019 Overview (11/24/2019): Added automatically from request for surgery [id number] Laryngopharyngeal reflux (LPR) 08/04/2018 Assessment & Plan (10/20/2018 12:26 PM CDT): No longer taking the omeprazole and ranitidine as prescribed. Patient is no longer experiencing any coughing, sinonasal or throat symptoms. Assessment & Plan (08/04/2018 1:17 PM DRAPERY COUNSELOR): Add omeprazole 40 mg Q morning 30 [...] resume. Assessment & Plan (08/04/2018 1:11 PM DRAPERY COUNSELOR): Patient's chronic cough is most likely secondary [...] reactive airway disease contributing to her cough. shelter current use of anticoagulant therapy 1 08/28/2014 Deep vein thrombosis (DVT) 06/27/2015 Hyperthyroidism 08/31/2012 Chronic adrenal insufficiency 08/30/2012 Encounters Date Type Department Care Team Description 5 11:00 AM CDT - 5 11:59 PM CDT Hospital Encounter [facility] [address], [address] [place] [phone] Dougie Lord MD Right knee pain, unspecified chronicity (Primary Dx) Discharge Disposition: Discharge to home or self care 5 8:20 AM CDT Office Visit [facility] ENT [address] [place] [address] Medical Office Building [address] [place] [phone] Roge Dowell MD CELINA (obstructive sleep apnea) (Primary Dx); Obstructive sleep apnea (adult) (pediatric) 5 Results Follow-Up [facility] [address] [place] [phone] Claudia Abdalla PA CBC with auto differential, Comprehensive metabolic panel 5 10:30 AM CDT Office Visit [facility] [address] [place] [phone] Claudia Abdalla PA Seronegative rheumatoid arthritis (HCC) (Primary Dx); Encounter for long-term (current) use of high-risk medication 5 Documentation [facility] Gastroenterolog y [address] [facility] Medicine 12th [place] [address] [place] [phone] Carlie Patricia 5 Telephone [facility] [address], [address] [place] [phone] Dougie Lord MD POST CALL 5 Orders Only [facility] [address] [place] [phone] Dougie Lord MD 5 Telephone [facility] at [address], [address] [place] [address] Dougie Lord MD Post Procedure Pain 5 9:36 AM CDT - 5 11:59 PM CDT Hospital Encounter [facility] Radiology [address] [place] [address] Transient ischemic attack (TIA); Cerebrovascular disease, unspecified; Unspecified visual loss; Presence of cardiac pacemaker Discharge Disposition: Discharge to home or self care 5 9:35 AM CDT - 5 11:59 PM CDT Hospital Encounter [facility] Radiology [address] [place] [address] Encounter for imaging to screen for metal prior to magnetic resonance imaging (MRI) Discharge Disposition: Discharge to home or self care 5 8:47 AM CDT - 5 11:59 PM CDT Hospital Encounter [facility] Radiology [address] [place] [address] Unspecified injury of right shoulder and upper arm, initial encounter Discharge Disposition: Discharge to home or self care 5 Documentation Cardiology Sofiya Rosa NP 5 10:22 AM CDT - 5 11:59 PM CDT Hospital Encounter [facility] at [address] [place] [address] Dougie Lord MD Right knee pain, unspecified chronicity Discharge Disposition: Discharge to home or self care 5 Telephone [facility] at [facility] [address] [facility] MOB [address], [address] [place] [phone] Dougie Lord MD Pre-Surgical Call 5 Telephone [facility] Dermatology [address] [facility] [address] [place] [phone] Luis Hobbs RMA Med Refill (HC 2.5% Cr) 5 7:04 AM CDT - 5 11:59 PM CDT Hospital Encounter [facility] [address] [place] [address] Trey Arroyo MD Abdominal pain; Nausea and vomiting, unspecified vomiting type Discharge Disposition: Discharge to home or self care 5 Telephone [facility]enterolog [facility] [address] [facility] Advanced Medicine 12th [place] [address] [place] [address] Carlie Patricia Prior Auth 5 Orders Only [facility] [address] [facility] 2nd Floor [address] [place] [address] Trey Arroyo MD 5 Results Follow-Up [facility] Endoscopy [address] [place] [address] Abdomen Pelvis W Contrast 5 E-Visit [facility] [address] [place] [phone] Claudia Abdalla PA Ultrasound 5 Orders Only [facility] [address] [place] [phone] Claudia Abdalla PA 5 Orders Only [facility] Gastroenterolog [facility] [address] [facility] 2nd Floor [address] [place] [address] Trey Arroyo MD Abdominal pain (Primary Dx); Nausea and vomiting, unspecified vomiting type 5 Results Follow-Up [facility] [address] [facility] [address], [address] [place] [address] Trey Arroyo MD Surgical pathology 5 11:18 AM CDT Anesthesia Event [facility] Endoscopy [address] [place] [address] Pepe Muller MD Hughett, Elizabeth Ann, FELIPE 5 11:00 AM CDT - 5 11:30 AM CDT Surgery [facility] Endoscopy [address] [place] [address] Trey Arroyo MD ESOPHAGOGASTRODUODENOSCOPY BIOPSY 5 9:53 AM CDT - 5 12:36 PM CDT Hospital Encounter [facility] Endoscopy [address] [place] [address] Trey Arroyo MD Abdominal pain; Nausea Discharge Disposition: Discharge to home or self care 5 Documentation [facility] [address] [facility] 2nd Floor [address] [place] [address] Valerie Washington LPN GI pre procedure screening 5 Orders Only [facility] [address] [facility] 2nd Floor [address] [place] [address] Trey Arroyo MD Abdominal pain (Primary Dx); [...] drink = 0.6 oz pur e alcohol) [employer] Utilities Answer Date Recorded In the past 12 months has [employer], gas, oil, or water [employer] threatened to shut off services in your [...] any clubs o r organizations such as druze groups, unions, fraternal or athletic groups, or [...] any time in the past 12 m [facility], were you homeless or living in [...] on file Legal Sex Female 12:21 AM DRAPERY COUNSELOR Gender Identity Not on file Sexual Orientation [...] Screening-FIT Discontinued 08/02/2024 Colon Cancer Screening-Sigmoidoscopy Discontinued 01/1 10/2024 Goals Goal Patient Goal Type Associated Problems [...] on stairs Contact your local community or [facility] for information on exercise, fall prevention programs, or options for improving home safety. Medical Devices Implanted Type Area Instructor Knitting Device Identifier Shelf Expiration Date Model / Serial / Lot Ivc Filter- 7 Implanted:Qty: 1 on 06/09/2007 by Tam Fraser MD IVC Filter N/A: Vena Cava Lead-Spinal Cord Stimulator- 018 Implanted:2017 by Taran Ramirez MD (Quantity not on file) Lead Back [employer] SC-2158- 50 / / Biotronik Ra Lead ([id number])- 019 Implanted:2018 (Quantity not on file) Lead Chest Biotronik SOLIA S [id number] / [id number] / Lead (Rv)-05/23/2021 Implanted:2020 (Quantity not on file) Lead Heart Biotronik SOLIA S 53 377 177 / [id number] / Biotronik Paceomaker Ariana Kaur-12/24/2023 Implanted:2023 (Quantity not on file) Pacemaker Chest Wall Biotronik [id number] / [id number] / Spinal Cord Stimulator- 018 Implanted:Qty: 1 on 08/20/2017 by Taran Ramirez MD Spinal Cord Stimulator N/A: Back [employer] SC-1200 / [id number] / Spinal Cord Stimulator Lead-08/20/2017 Implanted:2017 by Taran Ramirez MD (Quantity not on file) Spinal Cord Stimulator Back [employer] Neuro- [id number] / / Hardware Thoracic-L umbar Spine Loop Recorder Chest Wall Chris Vascular System Closure Repair Femoral Artery Suture Mediated Perclose Prostyle 41773-40 - [id number] Implanted:Qty: 1 on 02/09/2024 by Morgan Roy MD at [facility] Vascular 11/16/2025 [id number] / / [id number] [employer] Percutaneous Transcatheter Amplatzer Amulet 18mm [id number] - [id number] Implanted:Qty: 1 on 02/09/2024 by Morgan Roy MD at [facility] 09/17/2027 9-[id number] / / [id number] Chris Vascular System Closure Repair Femoral Artery Suture Mediated Perclose Prostyle 35077-61 - [id number] Implanted:Qty: 1 on 02/09/2024 by Morgan Roy MD at [facility] 11/16/2025 [id number] / / [id number] [employer] Sling Urinary Incontinence Female Stress Short Desara Blue Sis-Ds01bs - [id number] Implanted:Qty: 1 on 06/28/2024 by Shankar Mak MD at [facility] N/A: Urethra [employer] 01/04/2027 SIS-DS01 BS / / [id number] Explanted Type Area Instructor Knitting Device Identifier Shelf Expiration Date Model / Serial / Lot Biotronik Rv Lead ([id number])-07/04 Implanted:Qty: 1 on 07/04/2019 Explanted:Qty: 1 Lead Chest Biotronik [id number] / / Description:This lead was re placed and left behind per patient on 05/23/21 Biotronik Pacemaker ([id number])-07/04 Implanted:Qty: 1 on 07/04/2019 Explanted:Qty: 1 on 12/24/2023 Pacemaker Left: Chest Biotronik BENITO CARBAJAL / [id number] / [id number] Procedures Procedure Name Priority Date/Time Associated Diagnosis [...] Abdominal pain Nausea COLONOSCOPY 08/02/2024 1:43 PM DRAPERY COUNSELOR HEPATITIS C ANTIBODY Routine 07/06/2020 2:58 PM DRAPERY COUNSELOR Polyarthralgia Encounter for screening for other viral [...] BLOOD ORDER IDRIS Final Result [facility] [address] [address] [place] [address] * Comprehensive metabolic panel (01/23/2025 11:04 AM CDT) Pathologist [facility] Glucose 80 65 - 99 mg/dL [facility] [...] BLOOD ORDER IDRIS Final Result [facility] [address] [address] [address] * MRI Shoulder Right WO Contrast (01/11/2025 [...] by: Antoine Martínez M.D. Andrea Moran MD IMG MRI PROCEDURES [...] visualized pacemaker wires. Procedure Note Aaron Tran, DO - 01/11/2025 EXAMINATION: XR SPINE THORACOLUMBAR [...] Resu lt * Imaging Genicular RFA Right (77018) (01/06/2025 11:33 AM CDT) Narrative RAD_PACS_[facility] - [...] gastric) 11/23/2024 11:31 AM CDT Narrative PATHOLOGY [facility] - 11/24/2024 12:03 PM CDT EPIC results best viewed via link to PDF [facility] of Surgical Pathology [facility] [place] [address] Note to Patients: This report may contain [...] Gender: F : 1965 (Age: 59) Address: [address] [place], [place] [phone] [facility] #: [id number] Taken:11/23/2024 Received:11/23/2024 Reported: 11/24/2024 Patient Type: [facility] EP SAME Client [facility] Service: Gastro Location: Physician(s): Pb Steward [...] 0. /11/23/2024 14:21 PA(s): Roz Mtz MS, PA([facility])CM By this signature, I attest that the above diagnosis is based upon my personal examination of the slides(and/or other material). Addenda/Procedures Microscopic slide review and interpretation for this case was performed at [facility], Department of Surgical Pathology, [address] [facility] [id number], [place] [address] CLIA # [id number] The performance characteristics of some immunohistochemical stains, fluorescence in-situ hybridization tests and immunophenotyping by flow cytometry cited in this report (if any) were determined by the Surgical Pathology and Flow Cytometry Departments at [facility] as part of an ongoing quality systems manager program and in compliance with federally [...] Pathology and Flow Cytometry Departments of [facility]. It has not been cleared or approved by the U. S. Food and Drug Administration. IMAGES AND SCANNED DOCUMENTS, IF INCLUDED, ONLY VIEWABLE IN PDF VERSION OF REPORT Trey Arroyo MD LAB PATHOLOGY ORDERAB LES Final Result PATHOLOGY [facility] [phone] * EGD (11/23/2024 11:20 AM CDT) Anatomical Region Laterality Modality Other Narrative Procedure Note Trey Arroyo MD - 11/23/2024 11:20 AM CDT ENDOSCOPY LAB Patient Name: Naye Cantu Procedure Date: 11/23/2024 11:20 AM Date of : 1965 Admit Type: Outpatient Age: 59 Gender: Female Attending MD: Trey Arroyo M.D. Room: [facility] ENDOSCOPY ROOM 03 Note Status: Finalized [...] and oxygen saturations were monitored continuously. The [id number] was introduced through the mouth, and advanced [...] During normal business hours - [facility] Coord[facility]: [phone] After hours, evening, nights, weekends and holidays- Please call the hospital mortar mixer operator at and ask for the GI fellow senior electronics design engineer. Attending Participation: I personally performed the entire procedure. Electronically signed by Trey Arroyo MD Trey Arroyo M.D. 11/23/2024 11:37:09 AM Number of Addenda: 0 Note Initiated On: 11/23/2024 11:20 AM Trey Arroyo MD ENDOSCOPY PROCEDURES Final Result * Colonoscopy (08/02/2024 1:43 PM DRAPERY COUNSELOR) Anatomical Region Laterality Modality Other Narrative Procedure [...] scope was passed under direct vision.The CF [id number] endoscope was introduced through the anus and advanced to the terminal ileum. The colonoscopy was performed without difficulty. The patient tolerated the procedure well. The qualityof the bowel preparation was evaluated using the BBPS ([place] Bowel Preparation Scale) with scores of:Right Colon [...] business hours - Please call theNurse Coordinator: [phone] After hours, evening, nights, weekends and holidays- Please call the hospital mortar mixer operator at and ask for the GI fellow senior electronics design engineer. Attending Participation: I was present and participated during the entire procedure, including non-patrick portions. Electronically signed by Trey Arroyo MD Trey Arroyo M.D. 08/02/2024 2:08:56 PM . Number of Addenda: 0 Note Initiated On: 08/02/2024 1:43 PM Trey Arroyo MD ENDOSCOPY PROCEDURES Final Result * Hepatitis C antibody (07/06/2020 2:58 PM DRAPERY COUNSELOR) Hep C Ab NON-REACTI VE NON-REACT GIA [facility] SIGNAL TO CUT-OFF 0.02 <1.00 [facility] Comment: HCV antibody was non-reactive. There is no laboratory evidence of HCV infection. In most cases, no further action is required. However, if recent HCV exposure is suspected, a test for HCV RNA (test code 37364) is suggested. For additional information please refer to http://education.SOAMAI/faq/DYD65i5 (This link is being provided for informational/ educational purposes only.) Blood specimen (specimen) 07/06/2020 2:58 PM DRAPERY COUNSELOR 07/06/2020 3:00 PM DRAPERY COUNSELOR Narrative [facility] - 07/11/2020 9:33 PM DRAPERY COUNSELOR PATIENT UNABLE TO VOID; ADVISED TO RETURN FOR COLLECTION. Olga MONTES LAB MICROBIOLOGY - GENERA L ORDERABLES Final Result [facility] [address] [place] [address] from Last 3 Months or Most Recently Relevant to Health Maintenance Insurance MEDICARE [facility] MEDICARE [facility] [address] [place] [phone] MEDICARE [facility] [address] [place], [place] [phone] MEDICARE [address] [place], [place] [id number] MEDICARE [facility] Advance Directives For more information, please contact: [phone] * Full Code (Latest Code Status on [...] 10:10 AM 02/24/2022 4:09 PM Care Teams Rn Otolaryngology Relationship Specialty Start Date End Date Tom Paz MD PCP - General 09/09/16 Tab Taylor MD [address] [place] [address] Consulting Physician Cardiology 01/03/20 Favian Caceres MD [address] [place] [address] Consulting Physician Rheumatology 08/28/23
--- OUTSIDE RECORDS SUMMARY | 2025-02-16 16:47 | XMS_ITS ---
Author Organization [facility] Address [address] [place], [place] [address] Care Team Providers Care Manager Parking Name Role Phone CATHI SILVA Unavailable [phone] Tom Paz Unavailable Unavailable CATHI BURNS Unavailable [phone] REASON FOR VISIT possible stress fracture Encounters Encounter Location Date Provider Diagnosis [facility] [place] [address] [place], [place] [address] 09/29/2024 CATHI BURNS Plan Of Treatment No Information Progress Notes * ALONDRANaye ALEJANDREDOB:1965 ( 59 yo F)Acc No.[id number]:09/29/2024 Patient: Naye RAI Provider: Sammi Burns DPM :1965 A ge:59 Y S ex:Female Date:09/29/2024 Address:[address] [place] [address], [address], [place], [place] Subjective: * Chief Complaints: * 1 . Possible stress fracture. * Medical History: Objective: * Vitals: Assessment: Plan: * Treatment: * Billing Information: * Visit Code: * Procedure Codes: * Electronic signature of CATHI BURNS DPM on 02/16/2025 at 04:47 PM CDT Sign off status: Pending * Provider: Sammi Burns DPM Date: 0 09/29/2024 Generated for Mikaela alcaraz/Sheng/Iris on: 0 02/16/2025 04:47 PM CDT
--- OUTSIDE RECORDS SUMMARY | 2025-02-16 16:47 | XMS_ITS | Clinical Summary ---
Author Organization [facility] Address [address] [place] [address] Care Team Providers Care Helper [employer] Name Role Phone Tom Paz MD Primary Care Provider [phone] Tiago Vargas MD, Hugo P Unavailable [phone] Allergies Active Allergy Reactions Criticality Noted Date [...] on file Legal Sex Female 10:47 AM DELI/BAKERY ASSOCIATE Gender Identity Not on file Sexual Orientation [...] st Contact Info) Description 07/04/2025 10:00 AM DELI/BAKERY ASSOCIATE Office Visit [facility] - [address], [address] [place] [phone] Gopi Luna MD [address] [place] [address] Health Maintenance Due Date Last Done Comments [...] this topic Medical Devices Implanted Type Area Medical Referral Coordinator Device Identifier Shelf Expiration Date Model / Serial / Lot Ivc Filter Filter Pacemaker Pacemaker BIOTRONIK Spinal Cord Stimulator Implant Stimulator Implant Insurance MEDICARE MEDICAID Care Teams Helper [employer] Relationship Specialty Start Date End Date Tom Paz MD [address] [place] [address] PCP - General 09/29/22 Hugo Ordoñ[place]., [place] [address] [phone] CARDIOVASCULAR DISEASE 07/15/23
--- OUTSIDE RECORDS SUMMARY | 2025-02-16 16:47 | XMS_ITS | Patient Health Record ---
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) Active confirmed Problem Localized, primary osteoarthritis of the pelvic region and thigh (182266073) Unilateral primary osteoarthritis, left hip (M16.12) Active confirmed Problem Solitary sacroiliitis (235585562) Sacroiliitis, not elsewhere classified (M46.1) Active confirmed Problem Cervical radiculopathy (66170136) Radiculopathy, cervical region (M54.12) Active confirmed Problem Cervical radiculopathy (12840953) Radiculopathy, cervicothoracic region (M54.13) Active confirmed Problem Lumbosacral radiculopathy (5629287) Radiculopathy, lumbosacral region (M54.17) Active confirmed Plan Of Treatment No Information Insurance Providers Payer Name Payer Address Payer Phone Subscriber Number Group Number Insured Name Patient Relationship to Insured Coverage Start Date Coverage End Date MEDICARE SERVICES [address] [address] [place] [address] [id number] Naye Hart Self - patient is the insured 0 IPA [address] [address] [place] [address] [id number] Naye Hart Self - patient [...]
[2025-02-16 17:06] LABS: Hematocrit 38.4 % (37.0-47.0); Hemoglobin 12.9 g/dL (12.0-15.0); Mean Corpuscular HGB Conc 33.6 g/dl (32-36); Mean Corpuscular Hemoglobin 34.7 pg (26-34); Mean Corpuscular Volume 103.2 fl (80-100); Platelet Count Result 187 k/mm3 (150-375); Red Blood Count 3.72 M/mm3 (4.2-5.4); White Blood Count 4.6 K/mm3 (4.5-10.0)
[2025-02-16 17:20] LABS: Alanine Aminotransferase 22 U/L (6-35); Albumin Level 4.6 g/dL (3.5-5.1); Alkaline Phosphatase 58 U/L (38-126); Aspartate Amino Transferase 33 U/L (14-36); Bilirubin,Total 0.7 mg/dL (0.2-1.3); Cholesterol 194 mg/dL (0-200); HDL Direct 40 mg/dL; Total Protein 8.0 g/dL (6.3-8.2); Triglycerides 254 mg/dL (<150)
[2025-02-16 18:14] LABS: Vitamin B12 484.0 pg/mL (239-931)
== END 2025-02-16 16:44 | disposition home or self-care (01) ==
PROVIDERS: PCP Family Medicine; Visit Provider Family Medicine
DX: D50.8 Other iron deficiency anemias (principal); E78.00 Pure hypercholesterolemia, unspecified; N39.0 Urinary tract infection, site not specified; Z13.220 Encounter for screening for lipoid disorders
CPT/HCPCS: 36415; 80061; 80076; 82607; 85027; 87086

== ENCOUNTER 2025-03-02 20:31 | Emergency (ER) | payer MEDICARE, MEDICAID, SELFPAY ==
--- NOTE | ~2025-03-02 | XR_ITS ---
EXAM: XR knee RT min 4V DATE: 03/02/2025 21:47 HISTORY: twist knee . COMPARISON: 12/11/2023. FINDINGS: Osteopenia. No fracture or dislocation. No lytic or blastic lesion. Tricompartmental right knee osteoarthritis, moderate in the medial compartment. Small knee joint effusion. Quadriceps enthe sopathy. No erosion or periosteal change. Soft tissues within normal limits. IMPRESSION: No acute osseous finding in the right knee. Reviewed, dictated and finalized at location K.
--- OUTSIDE RECORDS SUMMARY | 2025-03-02 20:33 | XMS_ITS | Encounter Summary ---
Author Organization [facility] Healthcare Address [address] [place] [address] Care Team Providers Care Welding Process Specialist Name Role Phone Tom Paz MD Primary Care Provider [phone] Tab Taylor MD Unavailable [phone] Favian Caceres MD Unavailable [phone] Reason for Visit * Reason Onset Date Comments Scheduling Appointments 04/15/2024 Schedule patient for Imaging Genicular RFA Right (07756) and 1m follow Encounter Details Date Type Department Care Team (Late st Contact Info) Description 04/15/2024 Telephone [facility] [address] [address], [address] [place] [address] Dougie Lord MD [address] [address] Scheduling Appointments (Schedule patient for Imaging Genicular RFA Right (21591) and 1m follow ) Social History Tobacco Use Types Packs/Day Years Used Date Smoking Tobacco: Never Passive Smoke Exposure: Past Smokeless Tobacco: Never Alcohol Use Standard Drinks/Week Comments No 0 (1 standard drink = 0.6 oz pur e alcohol) [facility] Utilities Answer Date Recorded In the past 12 months has th e electric, gas, oil, or water company threatened to shut off services in your home? Yes 02/11/2024 Social Connection and Isolation Panel Answer Date Recorded In a typical week, how many times do you talk on the phone with family, friends, or neighbors? Once a week 02/11/2024 How often do you get togethe r with friends or relatives? Once a week 02/11/2024 How often do you attend chur ch or mosque services? 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 documented as of this encounter Visit Diagnoses Not on filedocumented in this encounter Care Teams Welding Process Specialist Relationship Specialty Start Date End Date Tom Paz MD PCP - General 09/09/16 Tab Taylor MD [address] [place] [address] Consulting Physician Cardiology 01/03/20 Favian Caceres MD [address] [place] [address] Consulting Physician Rheumatology 08/28/23 documented as of this encounter
--- OUTSIDE RECORDS SUMMARY | 2025-03-02 20:33 | XMS_ITS | Encounter Summary ---
Author Organization [facility] Healthcare Address [address] [place] [address] Care Team Providers Care Marine Electrician Apprentice Name Role Phone Tom Paz MD Primary Care Provider [phone] Tab Taylor MD Unavailable [phone] Favian Caceres MD Unavailable [phone] Encounter Details Date Type Department Care Team (Late st Contact Info) Description 02/11/2024 Documentation [facility] [address] [place] [address] Gaviota Benz, RN Social History Tobacco Use Types Packs/Day Years Used Date Smoking Tobacco: Never Passive Smoke Exposure: Past Smokeless Tobacco: Never Alcohol Use Standard Drinks/Week Comments No 0 (1 standard drink = 0.6 oz pur e alcohol) [facility] Utilities Answer Date Recorded In the past 12 months has [employer] electric, gas, oil, or water company threatened [...] 02/11/2024 How often do you attend [facility] or oriental orthodox services? 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 Gender Identity Not on file Sexual Orientation Not on file documented as of this encounter Functional Status * AUDIT-C Score Answer Date of Assessment Author 0 [...] Medicare and IDPA Prescription Coverage: Yes Pharmacy: [facility] #[id number] - [place], [place] - [address] [facility] [address] [facility] [address] [id number] - [place], [place] - [address] [facility] [address] [facility] - [place], [place] - [address] [facility] [address] [facility] [address] [place], [place] - [address] [facility] [address] [place] [address] Primary Care Provider: Tom Paz MD Prior to Admission: Functional Status: Minimal assist with ADLs Primary Caregiver: Private caregiver Support System: Children, Friends/neighbors (Son: Porter Serrano [phone]/Friend: Federico [phone]) Home Care Services: Yes 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 Has a plate put in worker and has a quad cane and [...] Collaboration with Patient, Provider, Direct Care Nurse, Hand Paster, and other members of theHealth Care Team to assure needed interventions completed. 2. Return patient to optimal level of self-care post discharge. 3. Outbound Sales Specialist will follow for Discharge Planning - interventions as needed 4. Anticipated level of care at discharge 5. Planned Discharge Disposition SONALI Brothers, RN physician practice coordinator [phone] documented in this encounter Plan of Treatment [...] on filedocumented in this encounter Care Teams Marine Electrician Apprentice Relationship Specialty Start Date End Date Tom Paz MD PCP - General 09/09/16 Tab Taylor MD [address] [place] [address] Consulting Physician Cardiology 01/03/20 Favian Caceres MD [address] [place] [address] Consulting Physician Rheumatology 08/28/23 documented as of this encounter
--- OUTSIDE RECORDS SUMMARY | 2025-03-02 20:33 | XMS_ITS | Clinical Summary ---
Author Organization [facility] Address [address] [place] [address] Care Team Providers Care Statistical Methods Professor Name Role Phone Tom Paz MD Primary Care Provider [phone] Tiago Vargas MD, Hugo P Unavailable [phone] Allergies Active Allergy Reactions Criticality Noted Date [...] on file Legal Sex Female 10:47 AM MANAGER RISK MANAGEMENT Gender Identity Not on file Sexual Orientation [...] st Contact Info) Description 07/04/2025 10:00 AM MANAGER RISK MANAGEMENT Office Visit [facility] - [address], [address] [place] [id number] Gopi Luna MD [address] [place] [address] Health Maintenance Due Date Last Done Comments [...] this topic Medical Devices Implanted Type Area Fiscal Accountant Device Identifier Shelf Expiration Date Model / Serial / Lot Ivc Filter Filter Pacemaker Pacemaker BIOTRONIK Spinal Cord Stimulator Implant Stimulator Implant Insurance MEDICARE MEDICAID Care Teams Statistical Methods Professor Relationship Specialty Start Date End Date Tom Paz MD [address] [place] [address] PCP - General 09/29/22 Hugo Ordoñ[place]., [place] [address] [id number] CARDIOVASCULAR DISEASE 07/15/23
--- OUTSIDE RECORDS SUMMARY | 2025-03-02 20:33 | XMS_ITS | Encounter Summary ---
Author Organization [facility] Address [address] [place] [address] Phone Care Team Providers Care Sales And Marketing Professional Name Role Phone Tom Paz MD Primary Care Provider [phone] Tab Taylor MD Unavailable [phone] Favian Caceres MD Unavailable [phone] Encounter Details Date Type Department Care Team (Latest Contact Info) Description 01/24/2025 Results Follow-Up [facility] [address] [place] [phone] Claudia Cristobal, SIMON [address] [place] [address] CBC with auto differential, Comprehensive metabolic panel Social History Tobacco Use Types Packs/Day Years Used Date Smoking Tobacco: Never Passive Smoke Exposure: Past Smokeless Tobacco: Never Alcohol Use Standard Drinks/Week Comments No 0 (1 standard drink = 0.6 oz pur e alcohol) [facility] Utilities Answer Date Recorded In the past 12 months has [employer] electric, gas, oil, or water company threatened [...] often do you attend chur ch or roman catholic services? 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
--- OUTSIDE RECORDS SUMMARY | 2025-03-02 20:33 | XMS_ITS ---
Author Organization [facility] Address [address] [place], [place] [address] Care Team Providers Care Professor Of Business Name Role Phone CATHI SILVA Unavailable [phone] Tom Paz Unavailable Unavailable REASON FOR VISIT *Callus Care Encounters Encounter Location Date Provider Diagnosis [facility] [address] [address] [place], [place] [id number] 10/24/2024 CATHI SILVA Plan Of Treatment No Information Progress Notes * ALONDRANaye ALEJANDREDOB:1965 ( 59 yo F)Acc No.[id number]:10/24/2024 Patient: Naye RAI Provider: Sammi Silva DPM :1965 A ge:59 Y S ex:Female Date:10/24/2024 Address:[address] [place] [address], [facility] [address], [place] Subjective: * Chief Complaints: * 1 . *Callus Care. * Medical History: Objective: * Vitals: Assessment: Plan: * Treatment: * Billing Information: * Visit Code: * Procedure Codes: * Electronic signature of CATHI SILVA DPM on 03/02/2025 at 08:33 PM CDT Sign off status: Pending * Provider: Sammi Silva DPM Date: 0 10/24/2024 Generated for Printi ng/Faxing/eTransmitting on: 0 03/02/2025 08:33 PM CDT
--- OUTSIDE RECORDS SUMMARY | 2025-03-02 20:33 | XMS_ITS | Patient Health Record ---
Author Organization [facility] [employer] Address [address] [place] [address] Care Team Providers Care Operations Manager Assistant Name Role Phone Tamar Rene Unavailable [phone] Reason For Referral No Information Medications Medication [...] CALCIUM 2 % TOPICAL CREAM *Reorder from [employer] for eRx and Interaction Alerts* Active Creon 36,000-114,000- 180,000 unit Oral *Pick strength-form from [employer] for eRX* Active Flowflex COVID-19 Ag Home Test In Vitro *Reorder from [employer] for eRx and Interaction Alerts* Active Diclofenac Sodium 50 MG Oral Active predniSONE 10 MG Oral Act antionette Omeprazole 40 MG Oral Act antionette Furosemide 20 MG Oral Act antionette Morphine Sulfate 15 MG Oral Active traMADol HCl 50 MG Oral A ctive Metoprolol Succinate ER 50 MG Oral Active Buprenorphine 7.5 mcg/hour Transdermal *Pick strength-form from [employer] for eRX* Active Colestipol HCl 1 GM Oral Active Azelastine HCl 137 MCG/SPRAY Nasal Active Simponi 50 mg/0.5 mL Subcutaneous Active predniSONE 20 MG Oral Act antionette Ibuprofen 600 MG Oral Act antionette Warfarin Sodium 3 MG Oral Active ENBREL SURECLICK 50 MG/ML (1 ML) SUBCUTANEOUS PEN INJECTOR *Reorder from [employer] for eRx and Interaction Alerts* Active Metoprolol Tartrate 50 MG Oral Active Doxycycline Hyclate 100 MG Oral Active ProAir HFA 108 (90 Base) MCG/ACT Inhalation Active hydrOXYzine HCl 25 MG Oral Active AZELASTINE 205.5 MCG (0.15 %) NASAL SPRAY *Reorder from [employer] for eRx and Interaction Alerts* Active Buprenorphine 5 mcg/hour Transdermal *Pick strength-form from [employer] for eRX* Active rOPINIRole HCl 1 MG [...] & 10 x 100MG Oral *Reorder from [employer] for eRx and Interaction Alerts* Active methylPREDNISolone 4 MG Oral Active Methotrexate 2.5 MG Oral Active predniSONE 5 MG Oral Acti ve Nitrofurantoin Monohyd Macro 100 MG Oral Active Nystatin 114700 UNIT/GM External Active Folic Acid 1 MG Oral Acti ve Plan Of Treatment No Information Insurance Providers Payer Name Payer Address Payer Phone Subscriber Number Group Number Insured Name Patient Relationship to Insured Coverage Start Date Coverage End Date Medicare-I l Medicare [address] [place] [phone] [id number] ALONDRAJERRY ALEJANDRENA Self - patient is the insured Medicaid-I l Medicaid [address] [address] [place] [id number] ALONDRAJERRY ALEJANDRENA Self - patient is the insured
--- OUTSIDE RECORDS SUMMARY | 2025-03-02 20:33 | XMS_ITS | Patient Health Record ---
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) Active confirmed Problem Localized, primary osteoarthritis of the pelvic region and thigh (709499461) Unilateral primary osteoarthritis, left hip (M16.12) Active confirmed Problem Solitary sacroiliitis (457209333) Sacroiliitis, not elsewhere classified (M46.1) Active confirmed Problem Cervical radiculopathy (94601584) Radiculopathy, cervical region (M54.12) Active confirmed Problem Cervical radiculopathy (67005257) Radiculopathy, cervicothoracic region (M54.13) Active confirmed Problem Lumbosacral radiculopathy (1926577) Radiculopathy, lumbosacral region (M54.17) Active confirmed Plan Of Treatment No Information Insurance Providers Payer Name Payer Address Payer Phone Subscriber Number Group Number Insured Name Patient Relationship to Insured Coverage Start Date Coverage End Date MEDICARE SERVICES [address] [address] [place] [address] [id number] Naye Hart Self - patient is the insured 0 IPA [address] [address] [place] [address] [id number] Naye Hart Self - patient [...]
--- OUTSIDE RECORDS SUMMARY | 2025-03-02 20:33 | XMS_ITS | Clinical Summary ---
Author Organization [facility] al Address [address] [place] [address] Care Team Providers Care Wares Sorter Name Role Phone Tom Paz MD Primary Care Provider [phone] Tab Taylor MD Unavailable Favian Caceres MD Unavailable [phone] Allergies Active Allergy Reactions Criticality Noted Date [...] Medium 01/08/2024 Chlorhexidine Rash Medium 01/27/2024 Severe rash; Can use Hibiclens name brand Clarithromycin Hives High 04/09/2011 Codeine Nausea And Vomiting,Rash High 04/09/2011 Severe vomiting Diphenhydramine Hives,Syncope High 04/09/2011 Emollient Base Rash,Blisters High 12/09/2023 Dermabond - blisters Etanercept Itching Low 02/24/2022 Gum Xguvkj-Gpluzq-Akjy-Alcoho l Blisters,Rash High 12/17/2021 Mastisol - blisters and spaulding Hydrocodone Hives Medium 03/16/2024 Hydrocodone-Acetaminophen Nausea And Vomiting,Vomiting Low 04/09/2011 Severe vomiting Hydromorphone Hives High 11/21/2019 Imipramine Hives,Rash High 02/28/2014 Meclizine Anaphylaxis,Swelling High 04/09/2011 Throat swelled meclizine Methyl Salicylate Unknown 05/12/2023 She says this is not even on her list Tapentadol Nausea & Vomiting Medium 02/20/2025 Pt stated severe nausea and vomiting Oxycodone-Acetaminophen Hives High 04/09/2011 Penicillin G Hives Medium Penicillins Hives,Rash High 04/09/2011 Prochlorperazine Anaphylaxis,Swelling High 1 Throat swelling Propoxyphene Nausea & Vomiting Low 04/09/2011 Propoxyphene Hcl Hives High 06/02/2023 Propoxyphene-Acetaminophe n Hives High 04/09/2011 Propranolol Hives,Rash High 04/09/2011 Protein C Concentrate, Human Unknown Low 05/31/2021 Patient states she's never heard of this allergy Storax Unknown High 05/12/2023 Part of the Dermabond Tissue Adhesive Blisters High 05/07/2023 Dermabond Tizanidine Hives,Hallucinations High 07/02/2023 Medications nitroglycerin (NITROSTAT) 0.4 mg SL tabletIndications :acute episode of anginal pain Place 1 tablet (0.4 mg total) under the tongue every 5 (five) minutes as needed for chest pain NONE IN OVER A MONTH Active DULoxetine DR (Cymbalta) 60 mg capsule Take 1 capsule (60 mg total) by mouth nightly 30 capsule Active Additional Information Patient taking differently:60 mg oral Nightly,Indications: Anxiety with Depression, Chronic Musculoskeletal Pain, Informant: Self, Reported on 02/24/2025 metoprolol tartrate (LOPRESSOR) 50 mg immediate release tabletIndications :coronary artery disease,heart Take 1 tablet (50 mg total) by mouth 2 (two) times a day Activ e montelukast (SINGULAIR) 10 mg tabletIndications :Seasonal Allergic Rhinitis Take 1 tablet (10 mg total) by mouth every morning 021 Active hydrOXYzine (ATARAX) 25 mg tabletIndications :Urticaria,(CRPS) RSD- will rip my skin off if I don't take it Take 1 tablet (25 mg total) by mouth 3 (three) times a day 023 Active albuterol HFA (PROVENTIL HFA,VENTOLIN HFA,PROAIR HFA) 90 mcg/actuation inhalerIndication s:Bronchospasm Prevention,shortn ess or breath Inhale 1 puff every 4 (four) hours as needed for wheezing or shortness of breath NONE IN OVER A MONTH 023 Active EPINEPHrine 0.3 mg/0.3 mL auto-injection syringeIndication s:Anaphylaxis Inject 0.3 mL (0.3 mg total) into the muscle as instructed as needed for anaphylaxis None in past month 023 Active rOPINIRole (REQUIP) 1 mg tabletIndications :Restless Legs Syndrome Take 1 tablet (1 mg total) by mouth 3 times a day Usually takes 2-3 times daily 023 Active aspirin 81 mg enteric coated tabletIndications :Myocardial Reinfarction Prevention,hold 24 hours Take 1 tablet (81 mg total) by mouth every morning Active promethazine (PHENERGAN) 25 mg suppositoryIndica tions:Nausea and Vomiting Insert 1 suppository (25 mg total) into the rectum every 6 (six) hours as needed for nausea or vomiting NONE IN OVER A MONTH Active triamcinolone (KENALOG) 0.1 % creamIndications: skin rash Apply 1 g topically 2 (two) times a day as needed for irritation or rash (very sensitive skin) 024 Active diclofenac sodium (VOLTAREN) 1 % gelIndications:Os teoarthritis Apply 2 g topically 4 (four) times a day as needed None in over a month Active pramipexole (MIRAPEX) 1 mg tabletIndications :Restless Legs Syndrome Take 1 tablet (1 mg total) by mouth 3 (three) times a day Activ e fexofenadine (MORGAN) 180 mg tabletIndications :Allergic Rhinitis Take 1 tablet (180 mg total) by mouth every morning Active cholecalciferol (VITAMIN D-3) 5,000 unit tabletIndications :supplement Take 1 tablet (5,000 Units total) by mouth every morning NONE IN OVER A MONTH Active ferrous sulfate 325 mg (65 mg [...] every 8 (eight) hours as needed Active leflunomide (ARAVA) 20 mg tablet Take 0.5 tablets (10 mg total) by mouth daily 30 tablet 1 025 Active Additional Information Patient taking differently:10 mg oralEvery morning, Indications: Rheumatoid Arthritis, Informant: Self, Reported on 02/24/2025 golimumab (Simponi) 50 mg/0.5 mL pen injector INJECT 50 MG (0.5 ML) UNDER THE SKIN EVERY 4 WEEKS 1.5 mL 2 025 Active Additional Information Patient taking differently: 50 mg subcutaneous Every 4 weeks, Took in on the first of the month , Indications: Rheumatoid Arthritis, Informant: Self, Reported on 02/24/2025 hydrocortisone 2.5 % cream Apply topically 2 (two) times a day as needed (Rash) Apply twice daily to face as needed for rash 15 g 025 Active baclofen (LIORESAL) 5 mg tabletIndications :Muscle Spasticity of Spinal Origin Take 1 tablet (5 mg total) by mouth daily as needed for muscle spasms NONE IN OVER A MONTH 025 Active oxyBUTYnin XL (DITROPAN-XL) 10 mg 24 hr tablet Take 1 tablet (10 mg total) by mouth every morning 025 Active sucralfate (CARAFATE) 1 gram tablet Take 1 tablet (1 g total) by mouth 2 (two) times a day 025 Active dexlansoprazole (DEXILANT) 60 mg capsule Take 1 capsule (60 mg total) by mouth daily 30 capsule 11 025 Active Additional Information Patient taking differently:60 mg oralEvery morning, Indications: gastroesophageal reflux disease, Reported on 02/20/2025 Nucynta 50 mg tablet Take 1 tablet (50 mg total) by mouth 3 (three) times a day as needed for pain Active nitrofurantoin monohydrate (MACROBID) 100 mg capsuleIndication s:Urinary Tract/Genitourina ry Infection Take 1 capsule (100 mg total) by mouth 2 (two) times a day For UTI Active celecoxib (CeleBREX) 200 mg capsuleIndication s:Rheumatoid Arthritis Take 1 capsule (200 mg total) by mouth daily Not sure if she takes it day or night; Active traMADoL (ULTRAM) 50 mg tablet Take 1 tablet (50 mg total) by mouth every 6 (six) hours as needed for pain 2024 Disconti nued(The rapy complete d) nystatin ointment Apply topically 2 (two) times a day 2024 Disconti nued(The rapy complete d) Active Problems Problem Noted Date Diagnosed Date [...] QuantGold Assessment & Plan (07/28/2024 11:19 AM AWARD CLERK): Monitor routine labs while on immunosuppressive medications. [...] QuantGold Assessment & Plan (09/22/2023 12:26 PM AWARD CLERK): Monitor routine labs while on immunosuppressive medications. [...] QuantGold Assessment & Plan (09/11/2022 12:48 PM AWARD CLERK): Monitor routine labs while on immunosuppressive medications. Recent 2/ labs stable. 06/2020: Neg Hep B/C 03/2021: Neg QuantGold Assessment & Plan (07/01/2022 9:25 AM AWARD CLERK): Monitor routine labs while on immunosuppressive medications. [...] QuantGold Assessment & Plan (08/19/2021 2:31 PM AWARD CLERK): Monitor routine labs while on immunosuppressive medications. [...] Hospitalized for total of 8 days, at [facility]. Had CT brain/neck angio that were unremarkable. [...] Hospitalized for total of 8 days, at [facility] and then [facility]. Had [...] 07/24/2020 Assessment & Plan (07/24/2020 12:34 PM AWARD CLERK): Her greatest pain complaint at this time [...] 07/24/2020 Assessment & Plan (07/01/2022 2:12 PM AWARD CLERK): Self weaned off Cymbalta 2 days ago [...] exercise. Assessment & Plan (08/27/2020 2:41 PM AWARD CLERK): Fatigue with sensation of pain all over [...] exercise. Assessment & Plan (07/24/2020 12:36 PM AWARD CLERK): Fatigue with sensation of pain all over [...] PT. Assessment & Plan (08/28/2020 12:26 PM AWARD CLERK): Multifocal OA (hands and hips) per recent xrays. Continue Tylenol 500 mg qid. Continue PT. Assessment & Plan (07/24/2020 12:41 PM AWARD CLERK): Multifocal OA (hands and hips) per recent [...] increase blood glucose, glaucoma and osteopenia with custodial use of steroids. Labs today. To return in 6 weeks for re-evaluation - this can be moved out to 3 months if joints remain stable. Assessment & Plan (07/28/2024 11:22 AM AWARD CLERK): Off MTX (oral ulcers/hair thinning). Remains on [...] needed. Assessment & Plan (09/22/2023 12:32 PM AWARD CLERK): A 09/2022 repeat left hand/wrist US demonstrated [...] needed. Assessment & Plan (09/11/2022 12:48 PM AWARD CLERK): Continued 15mg MTX weekly and monthly Simponi [...] Chan. Assessment & Plan (08/06/2022 9:00 PM AWARD CLERK): Has continued 15mg MTX weekly as well [...] we have no access to them through [employer]. She already had an OV scheduled for 09/02 - will re-evaluate joints at that time and consider repeat hand US if synovitis is absent/minimal on exam but she is still noting pain -to evaluate for underlying inflammation. She may require change in biologic medication. Assessment & Plan (07/01/2022 2:09 PM AWARD CLERK): CDAI 37, high Off Enbrel due to ISRs. Continued MTX and Simponi injections. Noted improvement after prednisone taper at last visit. Joints were feeling good until a few weeks ago when she returned from a trip to [place] an self weaned off Cymbalta. Now with [...] She is to follow up with her entry level account representative soon due to low BP following her [...] increase blood glucose, glaucoma and osteopenia with custodial use of steroids. Continue 15mg MTX weekly [...] Chan. Assessment & Plan (08/19/2021 9:00 PM AWARD CLERK): CDAI 25. On 15mg MTX weekly but has only taken 3 Enbrel injections so far. Just completed a medrol dose pack from her entry level account representative due to inflammation around her heart (pericarditis?). [...] incontinence. Has followed up with PCP and entry level account representative - started Ubrelvy for JACKSON and entry level account representative is to adjust her pacemaker on 05/23. [...] the ). A letter was provided for [facility] to allow Humira to be brought as [...] needed. Assessment & Plan (08/28/2020 12:26 PM AWARD CLERK): Our workup showed an JANNET 1:160 but [...] needed. Assessment & Plan (07/24/2020 12:33 PM AWARD CLERK): 54yoF referred for evaluation due to +JANNET [...] reassess. Assessment & Plan (07/06/2020 4:49 PM AWARD CLERK): 54yoF referred for evaluation due to +JANNET [...] (12/13/2019): Added automatically from request for surgery [id number] SVT (supraventricular tachycardia) 12/13/2019 Overview (12/13/2019): Added automatically from request for surgery [id number] A-fib 11/24/2019 Overview (11/24/2019): Added automatically from request for surgery [id number] Laryngopharyngeal reflux (LPR) 08/04/2018 Assessment & Plan (10/20/2018 12:26 PM CDT): No longer taking the omeprazole and ranitidine as prescribed. Patient is no longer experiencing any coughing, sinonasal or throat symptoms. Assessment & Plan (08/04/2018 1:17 PM AWARD CLERK): Add omeprazole 40 mg Q morning 30 [...] resume. Assessment & Plan (08/04/2018 1:11 PM AWARD CLERK): Patient's chronic cough is most likely secondary [...] reactive airway disease contributing to her cough. prison current use of anticoagulant therapy 1 08/28/2014 Deep vein thrombosis (DVT) 06/27/2015 Hyperthyroidism 08/31/2012 Chronic adrenal insufficiency 08/30/2012 Encounters Date Type Department Care Team Description 02/24/2025 8:09 AM CDT Anesthesia Event [facility] Operating Room [address] [place] [address] Arely Hansen MD Gardner, Kari Elizabeth, NP 02/24/2025 8:05 AM CDT - 02/24/2025 8:50 AM CDT Surgery [facility] Operating Room [address] [place] [address] Roge Dowell MD DRUG INDUCED SLEEP ENDOSCOPY EVAL FLEX DIAG 02/24/2025 5:56 AM CDT - 02/24/2025 9:00 AM CDT Hospital Encounter [facility] Operating Room [address] [place] [address] Roge Dowell MD Obstructive sleep apnea (Primary Dx) Discharge Disposition: Discharge to home or self care 02/06/2025 11:00 AM CDT - 02/06/2025 11:59 PM CDT Hospital Encounter [facility] [address] [place] [phone] Dougie Lord MD Right knee pain, unspecified chronicity (Primary Dx) Discharge Disposition: Discharge to home or self care 01/26/2025 8:20 AM CDT Office Visit [facility] [address] [place] [address] Medical Office Building [address] [place] [phone] Roge Dowell MD CELINA (obstructive sleep apnea) (Primary Dx); Obstructive sleep apnea (adult) (pediatric) 01/24/2025 Results Follow-Up [facility] [address] [place] [phone] Claudia Cristobal PA CBC with auto differential, Comprehensive metabolic panel 01/23/2025 10:30 AM CDT Office Visit [facility] [address] [place] [address] Claudia Cristobal PA Seronegative rheumatoid arthritis (HCC) (Primary Dx); Encounter for long-term (current) use of high-risk medication 01/23/2025 Documentation [facility] [address] [facility] 12th [place] [address] [place] [phone] Carlie Patricia 01/19/2025 Telephone [facility] [address] [place] [phone] Dougie Lord MD POST CALL 01/13/2025 Orders Only [facility] [address] [place], [place] [address] Dougie Lord MD 01/12/2025 Telephone [facility] [address] [place], [place] [address] Dougie Lord MD Post Procedure Pain 01/11/2025 9:36 AM CDT - 01/11/2025 11:59 PM CDT Hospital Encounter [facility] [address] [place] [address] Transient ischemic attack (TIA); Cerebrovascular disease, unspecified; Unspecified visual loss; Presence of cardiac pacemaker Discharge Disposition: Discharge to home or self care 01/11/2025 9:35 AM CDT - 01/11/2025 11:59 PM CDT Hospital Encounter [facility] [address] [place] [address] Encounter for imaging to screen for metal prior to magnetic resonance imaging (MRI) Discharge Disposition: Discharge to home or self care 01/11/2025 8:47 AM CDT - 01/11/2025 11:59 PM CDT Hospital Encounter [facility] [address] [place] [address] Unspecified injury of right shoulder and upper arm, initial encounter Discharge Disposition: Discharge to home or self care 01/11/2025 Documentation Cardiology Sofiya Rosa NP 01/06/2025 10:22 AM CDT - 01/06/2025 11:59 PM CDT Hospital Encounter [facility] [address] [place] [phone] Dougie Lord MD Right knee pain, unspecified chronicity Discharge Disposition: Discharge to home or self care 01/05/2025 Telephone [facility] [address] [facility] [address] [place] [phone] Dougie Lord MD Pre-Surgical Call 01/05/2025 Telephone [facility] [address] [facility] [address] [place] [phone] Luis Hobbs RMA Med Refill (HC 2.5% Cr) 12/08/2024 7:04 AM CDT - 12/08/2024 11:59 PM CDT Hospital Encounter [facility] [address] [place] [address] Trey Arroyo MD Abdominal pain; Nausea and vomiting, unspecified vomiting type Discharge Disposition: Discharge to home or self care 12/08/2024 Telephone [facility] [address] [facility] 12th [place] [address] [place] [address] Carlie Patricia Prior Auth 12/08/2024 Orders Only [facility] [address] [place] [address] Trey Arroyo MD 12/08/2024 Results Follow-Up [facility] Endoscopy [address] [place] [address] Abdomen Pelvis W Contrast 12/06/2024 E-Visit [facility] [address] [place] [address] Claudia Cristobal PA Ultrasound 12/05/2024 Orders Only [facility] [address] [place] [address] Claudia Cristobal PA from Last 3 Months Surgical History Surgery Date Site/Laterality Comments KNEE ARTHROSCOPY Right x4 SPINE SURGERY x4 has another surgery coming up WRIST SURGERY 07/20/1997 - 07/19/1998 Left torn ligament TUBAL LIGATION 07/20/1988 - 07/19/1989 Bilateral SPINAL CORD STIMULATOR IMPLANT X's 4 ENDOMETRIAL ABLATION W/ NOVASURE 07/20/2013 - 07/19/2014 HERNIA REPAIR 07/20/2016 - 07/19/2017 INSERT VENA CAVA FILTER 06/09/2007 is still implanted INSERT / REPLACE / REMOVE PACEMAKER 07/04/2019 is 100% dependent on pacemaker INSERT / REPLACE / REMOVE PACEMAKER 01/23/2024 Have been in there 4 times; had to move a lead, take out a lead, put in another pacemaker INSERT / REPLACE / REMOVE PACEMAKER 12/18/2024 - 01/16/2025 x2 in 10 days to repair the pacemaker COLONOSCOPY 08/02/2024 UPPER GASTROINTESTINAL ENDOSCOPY 11/23/2024 RADIOFREQUENCY ABLATION 01/11/2025 Right Radiofrequency ablation of the followin. Right superolateral genicular branch from the vastus lateralis nerve. 2. Right superomedial genicular branch from the vastus medialis nerve. 3. Right inferomedial genicular branch from the saphenous nerve. OTHER SURGICAL HISTORY 10/21/2024 Reposition Permanent Pacemaker Lead URETHRAL SLING 06/28/2024 RADIOFREQUENCY ABLATION 05/18/2024 Right Radiofrequency ablation of the followin. Right superolateral genicular branch from the vastus lateralis nerve. 2. Right superomedial genicular branch from the vastus medialis nerve. 3. Right inferomedial genicular branch from the saphenous nerve. RADIOFREQUENCY ABLATION 04/08/2024 Right : Local anesthetic diagnostic blocks of the followin. Right superolateral genicular branch from the vastus lateralis nerve. 2. Right superomedial genicular branch from the vastus medialis nerve. 3. Right inferomedial genicular branch from the saphenous nerve. OTHER SURGICAL HISTORY 02/09/2024 1. Ultrasound guided venous access 2. RCFV access with ultrasound placement of 8f sheath 3. Perclose closure of the RCFV with manual compression 4. Transseptal puncture Michael wilson 5. 18 Amulet ALEN occluder into ALEN with MARYSOL and Fluroscopic guidance 6. Angiography of the ALEN 7. Structural MARYSOL CARDIAC ELECTROPHYSIOLOGY MAPPING AND ABLATION 09/03/2018 s/p 2/15/19 AVNRT ablation KNEE ARTHROSCOPY 03/01/2014 Right RIGHT KNEE ARTHROSCOPY PARTIAL MEDIAL MENISCECTOMY, CHONDROPLASTY HERNIA REPAIR 07/20/2022 - 07/19/2023 Hernia repair with mesh OTHER SURGICAL HISTORY 11/18/2023 - 12/18/2023 Right SI to Pelvis Fusion OTHER SURGICAL HISTORY 07/20/2023 - 07/19/2024 Amulet Implant for a fib (goes inside the appendage and no blood can pool anymore) Medical History Medical History Date Comments Hx [...] t oe Pancreatitis TIA (transient ischemic attack) x6 12/2024 - went to hospital two days after ; 02/2020; Osteoporosis 2010 Stroke (HCC) TIA no residuals Autoimmune disease 2008 Anemia CHF (congestive heart failure) (HCC) Gastric [...] drink = 0.6 oz pur e alcohol) [facility] Utilities Answer Date Recorded In the past 12 months has e beSUCCESS, gas, oil, or water [employer] threatened to shut off services in your home? Yes 02/11/2024 Social Connection and Isolation Panel Answer Date Recorded In a typical week, how many times do you talk on the phone with family, friends, or neighbors? Once a week 02/11/2024 How often do you get togethe r with friends or relatives? Once a week 02/11/2024 How often do you attend chur ch or church services? More than 4 times per year [...] you have a drink containing alcohol? Never 02/20/2025 Q2: How many drinks containi ng alcohol do you have on a typical day when you are drinking? Patient does not drink Q3: How often do you have si x or more drinks on one occasion? Never 02/20/2025 Overall Financial Resource Strain (CARDIA) Answe r [...] making you feel afraid or unsafe? Denies 02/24/2025 Comments No Sex and Gender Information Value Date Recorded Sex Assigned at Not on file Legal Sex Female 12:21 AM AWARD CLERK Gender Identity Not on file Sexual Orientation Not on file Obstetrics History Last Filed Vital Signs Vital Sign Reading Time Taken Comments Blood Pressure 119/81 02/24/2025 8:45 AM CDT Pulse 69 02/24/2025 8:45 AM CDT Temperature 36 C (96.8 F) 02/24/2025 8:20 AM CDT Respiratory Rate 26 02/24/2025 8:45 AM CDT Oxygen Saturation 99% 02/24/2025 8:45 AM CDT Inhaled Oxygen Concentration - - Weight 83.9 kg (185 lb) 02/24/2025 8:07 AM CDT Height 172.7 cm (5' 8) 02/24/2025 8:07 AM CDT Body Mass Index 28.13 02/24/2025 8:07 AM CDT Plan of Treatment Health Maintenance [...] home safety. Medical Devices Implanted Type Area Poultry Hatchery Laborer Device Identifier Shelf Expiration Date Model / Serial / Lot Ivc Filter- 7 Implanted:Qty: 1 on 06/09/2007 by Tam Fraser MD IVC Filter N/A: Vena Cava Lead-Spinal Cord Stimulator- 018 Implanted:2017 by Taran Ramirez MD (Quantity not on file) Lead Back [employer] SC-[id number]- [id number] / / Biotronik Ra Lead ([id number])- 019 Implanted:2018 (Quantity not on file) Lead Chest Biotronik SOLIA S [id number] / [id number] / Lead (Rv)-05/23/2021 Implanted:2020 (Quantity not on file) Lead Heart Biotronik JUAN MANUEL S [id number] / [id number] / Biotronik Paceomaker Ariana Anne Gamez-T-12/24/2023 Implanted:2023 (Quantity not on file) Pacemaker Chest Wall [employer]ik [id number] / [id number] / Spinal Cord Stimulator- 018 Implanted:Qty: 1 on 08/20/2017 by Taran Ramirez MD Spinal Cord Stimulator N/A: Back [employer] SC-1200 / [id number] / Spinal Cord Stimulator Lead-08/20/2017 Implanted:2017 by Taran Ramirez MD (Quantity not on file) Spinal Cord Stimulator Back [employer] Neuro- [id number] / / Hardware Thoracic-L umbar Spine Loop Recorder Chest Wall [employer] System Closure Repair Femoral Artery Suture Mediated Perclose Prostyle 97420-72 - [id number] Implanted:Qty: 1 on 02/09/2024 by Morgan Roy MD at [facility] 11/16/2025 [id number] / / [id number] [employer] Percutaneous Transcatheter Amplatzer Amulet 18mm [id number] - [id number] Implanted:Qty: 1 on 02/09/2024 by Morgan Roy MD at [facility] 09/17/2027 [id number] / / [id number] [employer] System Closure Repair Femoral Artery Suture Mediated Perclose Prostyle 70655-50 - [id number] Implanted:Qty: 1 on 02/09/2024 by Morgan Roy MD at [facility] 11/16/2025 [id number] / / [id number] [employer] Sling Urinary Incontinence Female Stress Short Desara Blue Sis-Ds01bs - [id number] Implanted:Qty: 1 on 06/28/2024 by Shankar Mak MD at [facility] N/A: Urethra [employer] 01/04/2027 SIS-DS01 BS / / [id number] Explanted Type Area Poultry Hatchery Laborer Device Identifier Shelf Expiration Date Model / Serial / Lot Biotronik Rv Lead ([id number])-07/04 Implanted:Qty: 1 on 07/04/2019 Explanted:Qty: 1 Lead Chest Biotronik [id number] / / Description:This lead was re placed and left behind per patient on 05/23/21 Biotronik Pacemaker ([id number])-07/04 Implanted:Qty: 1 on 07/04/2019 Explanted:Qty: 1 on 12/24/2023 Pacemaker Left: Chest Biotronik ELUNA 8 KRISTY CARBAJAL / [id number] / [id number] Procedures Procedure Name Priority Date/Time Associated Diagnosis Comments DRUG INDUCED SLEEP ENDOSCOPY EVAL FLEX DIAG 02/24/2025 8:08 AM CDT Obstructive sleep apnea COMPREHENSIVE METABOLIC PANEL Routine 01/23/2025 11:04 AM CDT Seronegative rheumatoid arthritis (HCC) Encounter for long-term (current) use of high-risk medication CBC WITH AUTO DIFFERENTIAL Routine 01/23/2025 11:04 AM CDT Seronegative rheumatoid arthritis (HCC) Encounter for long-term (current) use of high-risk medication MRI SHOULDER RIGHT WO CONTRAST Schedule Routine, Read Routine (OP Routine) 01/11/2025 11:52 AM CDT Unspecified injury of right shoulder and upper arm, initial encounter XR SPINE THORACOLUMBAR JUNCTION 2 OR MORE VIEWS Schedule Routine, Read [...] vomiting, unspecified vomiting type SCAN - RADIOLOGY/IMAGING 12/05/2024 3:20 PM CDT COLONOSCOPY 08/02/2024 1:43 PM AWARD CLERK HEPATITIS C ANTIBODY Routine 07/06/2020 2:58 PM AWARD CLERK Polyarthralgia Encounter for screening for other viral diseases from Last 3 Months or Most Recently Relevant to Health Maintenance Results * (ABNORMAL) CBC with auto differential (01/23/2025 11:04 AM CDT) Pathologist [facility] WBC 4.2 3.8 - 10.8 Thousand/u L [...] BLOOD ORDER IDRIS Final Result [facility] [address] [address] [facility] [place] [address] * Comprehensive metabolic panel (01/23/2025 11:04 AM [...] BLOOD ORDER IDRIS Final Result [facility] [address] [address] [facility] [place] [address] * MRI Shoulder Right WO Contrast (01/11/2025 [...] it. Electronically signed by: Antoine Martínez M.D. us Andrea Moran MD IMG MRI PROCEDURES Final [...] device. Electronically signed by: Aaron Tran D.O. Caity Gilliland MD IMG XR PROCEDURES Final Result * XR [...] Resu lt * Imaging Genicular RFA Right ([id number]) (01/06/2025 11:33 AM CDT) Narrative RAD_PACS_[facility] - [...] Claudia MONTES Edited Result - Final * Colonoscopy (08/02/2024 1:43 PM AWARD CLERK) Anatomical Region Laterality Modality Other Narrative Procedure Note Trey Arroyo MD - 08/02/2024 1:43 PM [facility]ST [facility] Patient Name: Naye Hart Procedure Date: 08/02/2024 1:43 PM Date of : 1965 Admit Type: Outpatient Age: 58 Gender: Female Attending MD: Trey Arroyo M.D. Room: [facility] ENDOSCOPY ROOM 8 Note Status: [...] The scope was passed under direct vision.The [id number] endoscope was introduced through the anus and advanced to the terminal ileum. The colonoscopy was performed without difficulty. The patient tolerated the procedure well. The qualityof the bowel preparation was evaluated using the BBPS ([place] Bowel Preparation Scale) with scores of:Right Colon [...] During normal business hours - Please call theNmuscogee Coordinator: [phone] After hours, evening, nights, weekends and holidays- Please call the hospital bar machine operator production at and ask for the GI fellow non destructive testing supervisor. Attending Participation: I was present and participated during the entire procedure, including non-patrick portions. Electronically signed by Trey Arroyo MD Trey Arroyo M.D. 08/02/2024 2:08:56 PM . Number of Addenda: 0 Note Initiated On: 08/02/2024 1:43 PM Trey Arroyo MD ENDOSCOPY PROCEDURES Final Result * Hepatitis C antibody (07/06/2020 2:58 PM AWARD CLERK) Hep C Ab NON-REACTI VE NON-REACT IGA [facility] SIGNAL TO CUT-OFF 0.02 <1.00 [facility] Comment: HCV antibody was non-reactive. There is no laboratory evidence of HCV infection. In most cases, no further action is required. However, if recent HCV exposure is suspected, a test for HCV RNA (test code 09271) is suggested. For additional information please refer to http://education.FreshBooks.Memoir Systems/faq/EES13b0 (This link is being provided for informational/ educational purposes only.) Blood specimen (specimen) 07/06/2020 2:58 PM AWARD CLERK 07/06/2020 3:00 PM AWARD CLERK Narrative [facility] - 07/11/2020 9:33 PM AWARD CLERK PATIENT UNABLE TO VOID; ADVISED TO RETURN FOR COLLECTION. us Olga MONTES LAB MICROBIOLOGY - GENERA L ORDERABLES Final Result [facility] [address] [place] [address] from Last 3 Months or Most Recently Relevant to Health Maintenance Insurance MEDICARE [facility] MEDICARE [facility] MEDICARE [facility] [address] [address] [place] [address] [address] [place] [address] MEDICARE [facility] Advance Directives For more information, please contact: [phone] * Full Code (Latest Code Status on [...] 10:10 AM 02/24/2022 4:09 PM Care Teams Wares Sorter Relationship Specialty Start Date End Date Tom Paz MD PCP - General 09/09/16 Tab Taylor MD [address] [place] [address] Consulting Physician Cardiology 01/03/20 Favian Caceres MD [address] [place] [address] Consulting Physician Rheumatology 08/28/23
--- OUTSIDE RECORDS SUMMARY | 2025-03-02 20:34 | XMS_ITS | Patient Health Record ---
Author Organization [facility] Address [address] [place], [place] [address] Care Team Providers Care Copy Chaser Name Role Phone CATHI SILVA Unavailable [phone] Tom Paz Unavailable Unavailable CATHI BYNUM Unavailable [phone] Allergies Allergen (clinical drug ingredient) Drug/Non Drug [...] Location Date Provider Diagnosis [facility] [place] [address] [place], [place] [id number] 09/19/2024 CATHI SILVA Tinea pedis B35.3 ; Acquired keratosis [keratoderma] palmaris et plantaris L85.1 ; Metatarsalgia, right foot M77.41 ; Metatarsalgia, left foot M77.42 ; Other eczema L30.8 ; Pain in right foot M79.671 and Left foot pain M79.672 [facility] [address] [facility] [address] [place], [place] [id number] 09/21/2024 CATHI SILVA Assessments Encounter Date Diagnosis [...] erythematous, pruritic, scales or erosions between toes. Kountze-type tinea pedis affects the soles and medial [...] the patient use an emollient such as wbjl-icd-qjvroym Eucerin cream, Vanicream, or other lotion to [...] Date Coverage End Date Medicare Part B [facility] [address] [place] [address] [id number] Naye Hart Self - patient is the insured 0 Medical (General) History Medical History History ICD Code fibromyalgia anemia Leg/Feet cramps stroke rheumatoid arthritis Heart Disease Blood clots restless leg syndrome Back Trouble low blood pressure Surgical History Surgery Date(Month/Year) Tubal Ligation Pacemaker Hernia
--- OUTSIDE RECORDS SUMMARY | 2025-03-02 20:34 | XMS_ITS | Encounter Summary ---
Author Organization [facility] Address [address] [place] [address] Phone Care Team Providers Care Pipe Organ Installer Name Role Phone Tom Paz MD Primary Care Provider [phone] Tab Taylor MD Unavailable [phone] Favian Caceres MD Unavailable [phone] Encounter Details Date Type Department Care Team (Late st Contact Info) Description 12/06/2024 E-Visit [facility] [address] [place] [address] Claudia Cristobal, [place] [address] [place] [address] Ultrasound Social History Tobacco Use Types Packs/Day Years Used Date Smoking Tobacco: Never Passive Smoke Exposure: Past Smokeless Tobacco: Never Alcohol Use Standard Drinks/Week Comments No 0 (1 standard drink = 0.6 oz pur e alcohol) [facility] Utilities Answer Date Recorded In the past 12 months has [employer] electric, gas, oil, or water company threatened [...] often do you attend chur ch or restorationism services? 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
--- OUTSIDE RECORDS SUMMARY | 2025-03-02 20:34 | XMS_ITS | Clinical Summary ---
Author Organization [employer] [facility] Address [address] [place] [address] Care Team Providers Care Nursing Education Specialist Name Role Phone Tom Paz MD Primary Care Provider [phone] Allergies Active Allergy Reactions Criticality Noted Date [...] blisters Etanercept Swelling Low 12/09/2023 Embrel Gum Riphew-Iqnqrl-Pjai-Alcoho l Rash Low 12/09/2023 Mastisol - blisters [...] this topic Medical Devices Implanted Type Area Solutions Sales Executive Device Identifier Shelf Expiration Date Model / Serial / Lot Tyrx Antibacterial Envelope Med [id number] - [id number] Implanted:Qty: 1 on [facility] Mesh Left: Chest MEDTRONIC- CARD RHYTHM MGMT 10/01/2024 [id number] / / [id number] Neuro Stimulator Neuro Stimulator EcoFactor SC-1200 / / Description:leads: SC- Need lead numbers Dc Ppm Gen Implanted:Qty: 1 on 12/24/2023 by Burton Forbes MD at [facility] N/A: Chest Wall [id number] / [id number] / Explanted Type Area Solutions Sales Executive Device Identifier Shelf Expiration Date Model / Serial / Lot Dc Eluna 8 Ppm Gen Explanted:Qty: 1 on 12/24/2023 by [facility] at [facility] Pacemaker Chest Wall [employer] ELUNA 8 KRISTY / [id number] / Description:Implant date: Per [employer] Rep - NOT MRI safe (extra cap lead -ABANDONED LEAD - NO MRI -lizandro 08/14/23 Insurance MEDICARE PART A AND B BCBS [employer] [id number] [place] [address] MEDICARE PART A AND B [address] [place] [address] RX OPT[employer] RX Member Subscriber Plan / Payer (Ef fective 2023-Present) Name:Naye aHrt Relation to Subscriber:Self Name:Naye Hart Subscriber ID:Not on file Payer ID:Not on file Group ID:[id number] Type:RX Commercial Address: [address] Advance Directives For more information, please contact: [phone] Documents on File Type Date Recorded Patient Rib Matcher And Fitter Expl anation Advance Directive POA 12/24/2023 8:33 AM Ad valenzuela Directive POA * Full Code (Latest Code Status on File) Date Activated Date Inactivated Comments 12/24/2023 3:32 PM 12/25/2023 12:17 PM Care Teams Nursing Education Specialist Relationship Specialty Start Date End Date Tom Paz MD [address] [place] [address] PCP - General Family Practice 01/28/22
--- OUTSIDE RECORDS SUMMARY | 2025-03-02 20:34 | XMS_ITS ---
Author Organization [facility] Address [address] [place], [place] [address] Care Team Providers Care Beet Flumer Name Role Phone CATHI SILVA Unavailable [phone] Tom Paz Unavailable Unavailable CATHI BURNS Unavailable [phone] REASON FOR VISIT possible stress fracture Encounters Encounter Location Date Provider Diagnosis [facility] [place] [address] [place], [place] [id number] 09/29/2024 CATHI BURNS Plan Of Treatment No Information Progress Notes * ALONDRANaye ALEJANDREDOB:1965 ( 59 yo F)Acc No.[id number]:09/29/2024 Patient: Naye RAI Provider: Sammi Burns DPM :1965 A ge:59 Y S ex:Female Date:09/29/2024 Address:[address] [place] [address], [address], [place], [place] Subjective: * Chief Complaints: * 1 . Possible stress fracture. * Medical History: Objective: * Vitals: Assessment: Plan: * Treatment: * Billing Information: * Visit Code: * Procedure Codes: * Electronic signature of CATHI BURNS DPM on 03/02/2025 at 08:33 PM CDT Sign off status: Pending * Provider: Sammi Burns DPM Date: 0 09/29/2024 Generated for Mikaela alcaraz/Sheng/Iris on: 0 03/02/2025 08:33 PM CDT
--- OUTSIDE RECORDS SUMMARY | 2025-03-02 20:34 | XMS_ITS | Patient Health Record ---
Author Organization [facility] Address [address] [place], [place] [address] Care Team Providers Care Restaurant Service Manager Name Role Phone Jackosn BRYANT, Tom Primary Care Provider Cecilia Nicole Unavailable [phone] ALLERGIES Allergen (clinical drug ingredient) Drug/Non Drug [...] osteoarthritis of right knee (M17.11) Active confirmed 519217628260549 Problem Closed nondisplaced fracture of acromial end of left clavicle, initial encounter (S42.035A) Active confirmed 0781937 Problem Closed nondisplaced fracture of acromial end of left clavicle with routine healing, subsequent encounter (S42.035D) Active confirmed 3028956 Problem Right hip pain (M25.551) Active confirmed Right hip pain (527777036004482) Problem Left hip pain (M25.552) Active confirmed Arthralgia of t he pelvic region and thigh (755990876) Problem Primary localized osteoarthritis of right knee (M17.11) Active confirmed Primary osteoarthritis (420652270) Problem Pes anserine bursitis (M70.50) Active confirmed 633367164 PLAN OF TREATMENT Pending Test Test Name Order Date X ray : Hip, left, 2 02/24/2018 X ray : Hip, right, 2 02/24/2018 X ray : Knee, right 3 views 11/30/2017 Insurance Providers Payer Name Payer Address Payer Phone Subscriber Number Group Number Insured Name Patient Relationship to Insured Coverage Start Date Coverage End Date Medicare Services [address] [address] [place] [address] [id number] Naye Hart Self - patient is the insured 0 Medicaid [address] [place] [id number] Naye Hart Self - patient is the [...]
--- OUTSIDE RECORDS SUMMARY | 2025-03-02 20:34 | XMS_ITS | Continuity of Care Document ---
Author Organization [facility] Address [address] [facility] [facility] [address] [place] [address] Phone Care Team Providers Care Furniture Upholsterer Name Role Phone Nayely OD OD, Denise [...] EST REFRACTION Medicare OFFICE/OUTPATIENT VISIT, EST REFRACTION [facility] OFFICE/OUTPATIENT VISIT, EST OFFICE/OUTPATIENT VISIT, EST REFRACTION [facility] OFFICE/OUTPATIENT VISIT, EST REFRACTION MEDICARE OFFICE/OUTPATIENT VISIT, [...] OFFICE/OUTPA TIENT VISIT, EST [facility], [address] [address], [place], [place], [address], [place] tel:[phone] OPH CONSULT [facility] flash of light OS (chief complaint) Age-related nuclear cataract, bilateralTear film insufficiency of bilateral lacrimal glandsOther vitreous opacities, bilateral Aug-0 5 Derheimer OD Denise. [address] [facility], [address], [place], [place], [address], [place]. tel:[phone] Referring Provider: Tom Sapp, [address], [place], [address]. tel:[phone] OFFICE/OUTPA TIENT VISIT, EST [facility], [address] [place] [address], [id number], [place] tel:[phone] OPH CONSULT [facility] Pain OS (chief complaint) Left eye painAge-relat ed nuclear cataract, bilateralOthe r vitreous opacities, bilateralTear film insufficiency of bilateral lacrimal glands Apr-0 4-202 4 Krishnasamy Anthony. [address], [place], [place], [address], [place]. tel:[phone] Referring Provider: Tom Sapp, [address], [place], [address]. tel:[phone] OFFICE/OUTPA TIENT VISIT, EST [facility], [address] [place] [address], [id number], [place] tel:[phone] OPH CONSULT [facility] blurry vision (chief complaint) Age-related nuclear cataract, bilateralTear film insufficiency of bilateral lacrimal glandsOther vitreous opacities, bilateralDipl opiaHypermetr opia, bilateral Oct-2 4-202 3 Krishnasamy Anthony. [address], [place], [place], [address], [place]. tel:[phone] Referring Provider: Tom Sapp, [address], [place], [address]. tel:[phone] OFFICE/OUTPA TIENT VISIT, EST [facility], [address] [place] [address], [id number], [place] tel:[phone] OPH CONSULT [facility] blurry [place] (chief complaint) Tear film insufficiency of bilateral lacrimal glandsOther vitreous opacities, bilateralAge- related nuclear cataract, bilateralDipl opiaHypermetr opia, bilateral Mar-1 0-202 2 Krishnasamy Anthony. [address], [place], [place], [address], [place]. tel:[phone] Referring Provider: Tom Sapp, [address], [place], [address]. tel:[phone] OFFICE/OUTPA TIENT VISIT, EST [facility], [address] [place] [address], [id number], [place] tel:[phone] OPH CONSULT [facility] shingles (chief complaint) Herpes zoster without complicationT ear film insufficiency of bilateral lacrimal glands Apr- 1 Krishnasamy Anthony. [address], [place], [place], [address], [place]. tel:[phone] Referring Provider: Tom Sapp, [address], [place], [address]. tel:[phone] OFFICE/OUTPA TIENT VISIT, EST [facility], [address] [place] [address], [id number], [place] tel:[phone] OPH CONSULT [facility] blurry (chief complaint) DiplopiaAge-r elated nuclear cataract, bilateralTear film insufficiency of bilateral lacrimal glandsOther vitreous opacities, bilateralHype rmetropia, bilateral Nov- 9 Krishnasamy Anthony. [address], [place], [place], [id number], [place]. tel:[phone] Referring Provider: Anthony Gutierrez, [address], [place], [address]. tel:[phone] OFFICE/OUTPA TIENT VISIT, EST [facility], [address] [place] [address], [id number], [place] tel:[phone] OPH CONSULT [facility] blurry vision (chief complaint) Tear film insufficiency of bilateral lacrimal glandsOther vitreous opacities, bilateralDipl opiaHypermetr opia of both eyes Oct-3 0- 8 Krishnasamy Anthony. [address], [place], [place], [address], [place]. tel:[phone] Referring Provider: Anthony Gutierrez, [address], [place], [address]. tel:[phone] OFFICE/OUTPA TIENT VISIT, EST [facility], [address] [place] [address], [id number], [place] tel:[phone] OPH CONSULT [facility] blurry vision (chief complaint) dry eyes (chief complaint) DiplopiaOther vitreous opacities, bilateralTear film insufficiency of bilateral lacrimal glandsHyperme tropia of both eyes Dec-2 7 7 Krishnasamy Anthony. [address], [place], [place], [address], [place]. tel:[phone] Referring Provider: Anthony Gutierrez, [address], [place], [address]. tel:[phone] OFFICE/OUTPA TIENT VISIT, EST [facility], [address] [place] [address], [id number], tel:[phone] OPH CONSULT [facility] blurry vision (chief complaint) Reflex sympathetic dystrophy, unspecifiedTe ar film insufficiency , unspecifiedHy permetropia of both eyesOther vitreous opacities, bilateralDipl opia Oct-0 5-201 6 Krishnasamy Anthony. [address], [address], [address], [place]. tel:[phone] Referring Provider: Anthony Gutierrez, [address], [place], [address]. tel:[phone] OFFICE/OUTPA TIENT VISIT, NEW [facility], [address] [place] [address], [id number], [place] tel:[phone] Oph Consult [facility] blurry vision (chief complaint) Hypermetropia Tear film insufficiency , unspecifiedOt her vitreous opacitiesDipl opiaReflex sympathetic dystrophy, unspecified Sep-2 8-201 5 Krishnasamy Anthony. [address], [address], [address], [place]. tel:[phone] Referring Provider: Anthony Gutierrez, [address], [place], [address]. tel:[phone] OFFICE/OUTPA TIENT VISIT, EST [facility], [address] [place] [address], [place], [place], [id number], [place] tel:[phone] Oph Consult [facility] Office Tear film insufficiency , unspecifiedRe flex sympathetic dystrophy, unspecifiedOt her vitreous opacitiesHype rmetropiaDipl opia Feb- 4 Krishmargaret Anthony. [address], [place], [place], [address], [place]. tel:[phone] Referring Provider: Anthony Gutierrez, [address], [place], [address]. tel:[phone] OFFICE/OUTPA TIENT VISIT, EST [facility], [address] [place] [address], [place], [place], [id number], tel:[phone] Oph Consult [facility] Office Other vitreous opacitiesTear film insufficiency , unspecifiedDi plopiaHyperme tropia Mar- 3 Krishnasnina Anthony. [address], [place], [place], [address], [place]. tel:[phone] Referring Provider: Anthony Gutierrez, [address], [place], [address]. tel:[phone] OFFICE/OUTPA TIENT VISIT, EST [facility], [address] [place] [address], [id number], [place] tel:[phone] OPH CONSULT [facility] Tear film insufficiency , unspecifiedRe flex sympathetic dystrophy, unspecifiedDi plopiaHyperme tropia Sep- 3 Krishnasnina Anthony. [address], [place], [place], [id number], [place]. tel:[phone] Referring Provider: Anthony Gutierrez [address], [place], [address]. tel:[phone] OFFICE/OUTPA TIENT VISIT, EST [facility], [address], [id number], tel:[phone] OPH CONSULT [facility] Tear film insufficiency , unspecifiedDi plopia 2 Brenda rCuz. [address], [address], [id number], . tel:[phone] Referring Provider: Anthony Gutierrez, [address], [place], [address]. tel:[phone] OFFICE/OUTPA TIENT VISIT, NEW [facility], [address] [place] [address], [place], [place], [id number], tel:[phone] OPH CONSULT [facility] DiplopiaHeada cheHypermetro tierra 1 Brenda Cruz. [address], [place], [place], [address], . tel:[phone] Family History Family Member Type Diagnosis Age At Onset Son Problem (finding) Lazy eye Payers Payer name Insurance type Covered constitution party ID Authorjosea tirin(s) [place]IC[place] [id number] [place] [id number] Social History Type Description Quantity Date Captured [...] D&N. Pt saw Dr Nai Sotelo at [facility] for prism. Pt did not update [...] +1.75+0.75x 080. Patient will see Smita Richardson (railroad design consultant) @ [facility] for prisms/glasses. Related to Headaches Reflex [...] +1.75+0.75x 082. Patient will see Smita Richardson (railroad design consultant) @ [facility] 12/24/2010 for motility exam and measurements [...]
--- OUTSIDE RECORDS SUMMARY | 2025-03-02 20:34 | XMS_ITS | Continuity of Care Document ---
Author Organization [facility] Address [address] [place] [address] [address] [place] [address] Phone Care Team Providers Care Professional Development Manager Name Role Phone Anthony Gutierrez Unavailable [...] Providers Copied on Encounter Office/outpat ient Visit, [facility], [address] [place] [address] [address], [place], [place], [id number], [place] tel:[phone] SEC [facility] No Information 0 0 Krishnasamy Anthony. [address] [facility] [address], [place], [address], [place]. tel:[phone] Office/outpat ient Visit, [facility], [address] [place] [address] [address], [place], [place], [id number], [place] tel:[phone] [facility] No Information 0 0 Krishnasamy Anthony. [address] [facility] [address], [place], [facility], [place]. tel:[phone] Office/outpat ient Visit, Est [facility], [address] [place] [address] [address], [place], [place], [id number], [place] tel:[phone] SEC [facility] No Information Fe-2 3-201 0 Krishnasamy Anthony. [address] [facility] [place] [address], [place], [facility], [place]. tel:[phone] [facility], [address] [place] [address] [address], [place], [place], [id number], [place] tel:[phone] SEC [facility] No Information Jan-3 1-200 9 Krishnasamy Anthony. [facility], [place], [facility], [place]. tel:[phone] [facility], [address] [place] [address] [address], [place], [place], [id number], [place] tel:[phone] SEC [facility] No Information You-2 2-200 9 Krishnasamy Anthony. [address] [place], [place] [address]ate [place] [address], [place], [facility], [place]. tel:[phone] [facility], [address] [place] [address] [address], [place], [place], [id number], [place] tel:[phone] [facility] No Information May-0 8-200 9 Krishnasamy Anthony. [facility] [place] [address], [place], [facility], [place]. tel:[phone] [facility], [address] [place] [address], [place], [place], [address], [place] tel:[phone] SEC [facility] No Information Apr-2 8-200 7 Montes OD Simone. [address], [place], [facility], [place]. tel:[phone] Family History Family Member Type Diagnosis Age At Onset No Information Payers Payer name Insurance type Covered alliance party ID Authoriza tion(s) Medicare [facility] [id number] Medicaid [facility]LY [facility], [facility] [id number] Social History Type Description Quantity Date Captured [...]
[2025-03-02 21:30] VITALS: BP 111/67; PULSE 71; RESP 16; TEMP 36.6; O2SAT 99
[2025-03-02 22:31] VITALS: BP 114/62; PULSE 70; RESP 18; O2SAT 99
--- OUTSIDE RECORDS SUMMARY | 2025-03-03 00:33 | XMS_ITS | Encounter Summary ---
Author Organization [facility] Healthcare Address [address] [place] [address] Care Team Providers Care Metal Hardener Name Role Phone Tom Paz MD Primary Care Provider [phone] Tab Taylor MD Unavailable [phone] Favian Caceres MD Unavailable Reason for Visit * Reason Onset Date Comments Scheduling Appointments 04/15/2024 Schedule patient for Imaging Genicular RFA Right (33244) and 1m follow Encounter Details Date Type Department Care Team (Late st Contact Info) Description 04/15/2024 Telephone [facility] [address] [address], [address] [place] [address] Dougie Lord MD [address] [address] Scheduling Appointments (Schedule patient for Imaging Genicular RFA Right (81704) and 1m follow ) Social History Tobacco Use Types Packs/Day Years Used Date Smoking Tobacco: Never Passive Smoke Exposure: Past Smokeless Tobacco: Never Alcohol Use Standard Drinks/Week Comments No 0 (1 standard drink = 0.6 oz pur e alcohol) [facility] Utilities Answer Date Recorded In the [...] often do you attend chur ch or episcopal services? 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 documented as of this encounter Visit Diagnoses Not on filedocumented in this encounter Care Teams Metal Hardener Relationship Specialty Start Date End Date Tom Paz MD PCP - General 09/09/16 Tab Taylor MD [address] [place] [address] Consulting Physician Cardiology 01/03/20 Favian Caceres MD [address] [place] [address] Consulting Physician Rheumatology 08/28/23 documented as of this encounter
--- OUTSIDE RECORDS SUMMARY | 2025-03-03 00:33 | XMS_ITS | Encounter Summary ---
Author Organization [facility] Healthcare Address [address] [place] [address] Care Team Providers Care Head Esthetician Name Role Phone Tom Paz MD Primary Care Provider [phone] Tab Taylor MD Unavailable [phone] Favian Caceres MD Unavailable [phone] Encounter Details Date Type Department Care Team (Late st Contact Info) Description 02/11/2024 Documentation [facility] Case Management [address] [place] [address] Gaviota Benz, RN Social History Tobacco Use Types Packs/Day Years Used Date Smoking Tobacco: Never Passive Smoke Exposure: Past Smokeless Tobacco: Never Alcohol Use Standard Drinks/Week Comments No 0 (1 standard drink = 0.6 oz pur e alcohol) [facility] Utilities Answer Date Recorded In the past 12 months has [employer] electric, gas, oil, or water company threatened [...] week 02/11/2024 How often do you attend [facility] or restorationist services? More than 4 times per year 02/11/2024 Do you belong to any clubs o r organizations such as rastafarian groups, unions, fraternal or athletic groups, or [...] in the past [address] 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 Gender Identity Not on file Sexual Orientation [...] Medicare and IDPA Prescription Coverage: Yes Pharmacy: [facility]/pharm[facility] #[id number] - [place], [place] - [address] [facility] [address] [facility] [address] [id number] [place], [place] - [address] [facility] [address] [facility] - [place], [place] - [address] [facility] [address] [facility] [address] [place], [place] - [address] [facility] [address] [place] [address] Primary Care Provider: Tom Paz MD Prior to Admission: Functional Status: Minimal assist with ADLs Primary Caregiver: Private caregiver Support System: Children, Friends/neighbors (Son: Porter Serrano [phone]/Friend: Federico [phone]) Home Care Services: Yes Type of Home Care 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 2. Return patient to optimal level of self-care post discharge. 3. Waste Disposal Leakage Tester will follow for Discharge Planning - interventions as needed 4. Anticipated level of care at discharge 5. Planned Discharge Disposition SONALI Brothers, RN choker setter [phone] documented in this encounter Plan of Treatment [...] on filedocumented in this encounter Care Teams Head Esthetician Relationship Specialty Start Date End Date Tom Paz MD PCP - General 09/09/16 Tab Taylor MD [address] [place] [address] Consulting Physician Cardiology 01/03/20 Favian Caceres MD [address] [place] [address] Consulting Physician Rheumatology 08/28/23 documented as of this encounter
--- OUTSIDE RECORDS SUMMARY | 2025-03-03 00:33 | XMS_ITS | Patient Health Record ---
Author Organization [facility] Address [address] [place] [address] Care Team Providers Care Feed Manager Name Role Phone Tamar Rene Unavailable [phone] Reason For Referral No Information Medications Medication [...] CALCIUM 2 % TOPICAL CREAM *Reorder from Revel Touch for eRx and Interaction Alerts* Active Creon 36,000-114,000- 180,000 unit Oral *Pick strength-form from Revel Touch for eRX* Active Flowflex COVID-19 Ag Home Test In Vitro *Reorder from Revel Touch for eRx and Interaction Alerts* Active Diclofenac Sodium 50 MG Oral Active predniSONE 10 MG Oral Act antionette Omeprazole 40 MG Oral Act antionette Furosemide 20 MG Oral Act antionette Morphine Sulfate 15 MG Oral Active traMADol HCl 50 MG Oral A ctive Metoprolol Succinate ER 50 MG Oral Active Buprenorphine 7.5 mcg/hour Transdermal *Pick strength-form from Revel Touch for eRX* Active Colestipol HCl 1 GM Oral Active Azelastine HCl 137 MCG/SPRAY Nasal Active Simponi 50 mg/0.5 mL Subcutaneous Active predniSONE 20 MG Oral Act antionette Ibuprofen 600 MG Oral Act antionette Warfarin Sodium 3 MG Oral Active ENBREL SURECLICK 50 MG/ML (1 ML) SUBCUTANEOUS PEN INJECTOR *Reorder from Revel Touch for eRx and Interaction Alerts* Active Metoprolol Tartrate 50 MG Oral Active Doxycycline Hyclate 100 MG Oral Active ProAir HFA 108 (90 Base) MCG/ACT Inhalation Active hydrOXYzine HCl 25 MG Oral Active AZELASTINE 205.5 MCG (0.15 %) NASAL SPRAY *Reorder from Revel Touch for eRx and Interaction Alerts* Active Buprenorphine 5 mcg/hour Transdermal *Pick strength-form from Revel Touch for eRX* Active rOPINIRole HCl 1 MG [...] & 10 x 100MG Oral *Reorder from Revel Touch for eRx and Interaction Alerts* Active methylPREDNISolone 4 MG Oral Active Methotrexate 2.5 MG Oral Active predniSONE 5 MG Oral Acti ve Nitrofurantoin Monohyd Macro 100 MG Oral Active Nystatin 596845 UNIT/GM External Active Folic Acid 1 MG Oral Acti ve Plan Of Treatment No Information Insurance Providers Payer Name Payer Address Payer Phone Subscriber Number Group Number Insured Name Patient Relationship to Insured Coverage Start Date Coverage End Date Medicare-I l Medicare [address] [place] [phone] [id number] ALONDRAJERRY ALEJANDRENA Self - patient is the insured Medicaid-[place] l Medicaid [address] [address] [place] [address] [id number] ALONDRAJERRY ALEJANDRENA Self - patient is the insured
--- OUTSIDE RECORDS SUMMARY | 2025-03-03 00:33 | XMS_ITS | Encounter Summary ---
Author Organization [facility] Address [address] [place] [address] Phone Care Team Providers Care Physician Coder Name Role Phone Tom Paz MD Primary Care Provider [phone] Tab Taylor MD Unavailable [phone] Favian Caceres MD Unavailable [phone] Encounter Details Date Type Department Care Team (Latest Contact Info) Description 01/24/2025 Results Follow-Up [facility] [address] [place] [address] Claudia Cristobal, SIMON [address] [place] [address] CBC with auto differential, Comprehensive metabolic panel Social History Tobacco Use Types Packs/Day Years Used Date Smoking Tobacco: Never Passive Smoke Exposure: Past Smokeless Tobacco: Never Alcohol Use Standard Drinks/Week Comments No 0 (1 standard drink = 0.6 oz pur e alcohol) [facility] Utilities Answer Date Recorded In the past 12 months has [employer] electric, gas, oil, or water company threatened [...] any clubs o r organizations such as denominational groups, unions, fraternal or athletic groups, or [...] in the past 12 m [facility], were you homeless or living in [...] on file 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
--- OUTSIDE RECORDS SUMMARY | 2025-03-03 00:33 | XMS_ITS ---
Author Organization [facility] Address [address] [place], [place] [address] Care Team Providers Care Sales Account Specialist Name Role Phone CATHI SILVA Unavailable [phone] Tom Paz Unavailable Unavailable REASON FOR VISIT *Callus Care Encounters Encounter Location Date Provider Diagnosis [facility] [place] [address] [address] [id number] 10/24/2024 CATHI SILVA Plan Of Treatment No Information Progress Notes * ALONDRANaye ALEJANDREDOB:1965 ( 59 yo F)Acc No.[id number]:10/24/2024 Patient: Naye RAI Provider: Sammi Silva DPM :1965 A ge:59 Y S ex:Female Date:10/24/2024 Address:[address] [place] [address], [place] [address], [place] Subjective: * Chief Complaints: * 1 . *Callus Care. * Medical History: Objective: * Vitals: Assessment: Plan: * Treatment: * Billing Information: * Visit Code: * Procedure Codes: * Electronic signature of CATHI SILVA DPM on 03/03/2025 at 12:33 AM CDT Sign off status: Pending * Provider: Sammi Silva DPM Date: 0 10/24/2024 Generated for Printi ng/Faxing/eTransmitting on: 0 03/03/2025 12:33 AM CDT
--- OUTSIDE RECORDS SUMMARY | 2025-03-03 00:34 | XMS_ITS | Encounter Summary ---
Author Organization [facility] Address [address] [place] [address] Phone Care Team Providers Care Sustainability Analyst Name Role Phone Tom Paz MD Primary Care Provider [phone] Tab Taylor MD Unavailable [phone] Favian Caceres MD Unavailable [phone] Encounter Details Date Type Department Care Team (Late st Contact Info) Description 12/06/2024 E-Visit [facility] [address] [place] [address] Claudia Cristobal, [place] [address] [place] [address] Ultrasound Social History Tobacco Use Types Packs/Day Years Used Date Smoking Tobacco: Never Passive Smoke Exposure: Past Smokeless Tobacco: Never Alcohol Use Standard Drinks/Week Comments No 0 (1 standard drink = 0.6 oz pur e alcohol) [facility] Utilities Answer Date Recorded In the past 12 months has [employer] electric, gas, oil, or water company threatened [...] often do you attend chur ch or baptist services? 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
--- OUTSIDE RECORDS SUMMARY | 2025-03-03 00:34 | XMS_ITS | Continuity of Care Document ---
Author Organization [facility] Address [address] [place] [address] [address] [place] [address] Phone Care Team Providers Care Bung Driver Name Role Phone Anthony Gutierrez Unavailable Unavailable [...] [facility], [address] [place] [address] [address], [place], [place], [id number], [place] tel:[phone] SEC [facility] No Information 0 0 Krishnasamy Anthony. [address] [facility] 102, [place], [address], [place]. tel:[phone] Office/outpat ient Visit, [facility], [address] [place] [address] [address], [place], [place], [id number], [place] tel:[phone] SEC [facility] [place] No Information 0 0 Krishnasamy Anthony. [address] [facility] [place] [address], [place], [place], [facility], [place]. tel:[phone] Office/outpat ient Visit, Est [facility], [address] [place] [address] [address], [place], [place], [id number], [place] tel:[phone] SEC [facility] No Information Fe-2 3-201 0 Krishnasamy Anthony. [address] [facility] [place] [address], [place], [place], [facility], [place]. tel:[phone] [facility], [address] [place] [address] [address], [place], [place], [id number], [place] tel:[phone] SEC [facility] No Information Jan-3 1-200 9 Krishnasamy Anthony. [facility] 102, [place], [facility], [place]. tel:[phone] [facility], [address] [place] [address] [address], [place], [place], [id number], [place] tel:[phone] SEC [facility] No Information You-2 2-200 9 Krishnasamy Anthony. [address] [place], [place] [address]ate [place] [address], [place], [facility], [place]. tel:[phone] [facility], [address] [place] [address] [address], [place], [place], [id number], [place] tel:[phone] [facility] [place] No Information May-0 8-200 9 Krishnasamy Anthony. [facility] [place] [address], [place], [facility], [place]. tel:[phone] [facility], [address], [place], [place], [id number], [place] tel:[phone] [facility] No Information Apr-2 8-200 7 Montes OD Simone. [address], [place], [place], [facility], [place]. tel:[phone] Family History Family Member Type Diagnosis Age At Onset No Information Payers Payer name Insurance type Covered alliance party ID Authoriza tion(s) Medicare [facility] [id number] Medicaid [facility] [id number] Social History Type Description Quantity Date Captured [...]
--- OUTSIDE RECORDS SUMMARY | 2025-03-03 00:34 | XMS_ITS | Continuity of Care Document ---
Author Organization [facility] [employer] [facility] Address [address] [place] [address] Phone Care Team Providers Care French Cord Binder Name Role Phone Nayely OD OD, Denise [...] EST REFRACTION Medicare OFFICE/OUTPATIENT VISIT, EST REFRACTION [facility] OFFICE/OUTPATIENT VISIT, EST OFFICE/OUTPATIENT VISIT, EST REFRACTION [facility] OFFICE/OUTPATIENT VISIT, EST REFRACTION MEDICARE OFFICE/OUTPATIENT VISIT, [...] y Consultants [facility], [address] [facility] [facility] [address] [address], [place], [place], [id number], [place] tel:[phone] OPH CONSULT [facility] flash of light OS (chief complaint) Age-related nuclear cataract, bilateralTear film insufficiency of bilateral lacrimal glandsOther vitreous opacities, bilateral Aug-0 5 Derheimer OD Denise. [address], [address], [place], [place], [id number], [place]. tel:[phone] Referring Provider: Tom Sapp, [address], [place], [address]. tel:[phone] OFFICE/OUTPA TIENT VISIT, EST [facility], [address] [place] [address], [id number], [place] tel:[phone] OPH CONSULT [facility] Pain OS (chief complaint) Left eye painAge-relat ed nuclear cataract, bilateralOthe r vitreous opacities, bilateralTear film insufficiency of bilateral lacrimal glands Apr-0 4-202 4 Krishnasamy Anthony. [address], [address], [place], [place], [address], [place]. tel:[phone] Referring Provider: Tom Sapp, [address], [place], [address]. tel:[phone] OFFICE/OUTPA TIENT VISIT, EST [facility], [address] [place] [address], [id number], [place] tel:[phone] OPH CONSULT [facility] blurry vision (chief complaint) Age-related nuclear cataract, bilateralTear film insufficiency of bilateral lacrimal glandsOther vitreous opacities, bilateralDipl opiaHypermetr opia, bilateral Oct-2 4-202 3 Krishnasamy Anthony. [address], [address], [place], [place], [id number], [place]. tel:[phone] Referring Provider: Tom Sapp, [address], [place], [address]. tel:[phone] OFFICE/OUTPA TIENT VISIT, EST [facility], [address] [place] [address], [id number], [place] tel:[phone] OPH CONSULT [facility] blurry [place] (chief complaint) Tear film insufficiency of bilateral lacrimal glandsOther vitreous opacities, bilateralAge- related nuclear cataract, bilateralDipl opiaHypermetr opia, bilateral Mar-1 0-202 2 Krishnasamy Anthony. [address], [address], [place], [place], [id number], [place]. tel:[phone] Referring Provider: Tom Sapp, [address], [place], [address]. tel:[phone] OFFICE/OUTPA TIENT VISIT, EST [facility], [address] [place] [address], [id number], [place] tel:[phone] OPH CONSULT [facility] shingles (chief complaint) Herpes zoster without complicationT ear film insufficiency of bilateral lacrimal glands Apr- 1 Krishnasamy Anthony. [address], [address], [place], [place], [id number], [place]. tel:[phone] Referring Provider: Tom Sapp, [address], [place], [address]. tel:[phone] OFFICE/OUTPA TIENT VISIT, EST [facility], [address] [place] [address], [id number], [place] tel:[phone] OPH CONSULT [facility] blurry (chief complaint) DiplopiaAge-r elated nuclear cataract, bilateralTear film insufficiency of bilateral lacrimal glandsOther vitreous opacities, bilateralHype rmetropia, bilateral Nov- 9 Krishnasamy Anthony. [address], [address], [place], [place], [id number], [place]. tel:[phone] Referring Provider: Anthony Gutierrez, [address], [place], [address]. tel:[phone] OFFICE/OUTPA TIENT VISIT, EST [facility], [address] [place] [address], [id number], [place] tel:[phone] OPH CONSULT [facility] blurry vision (chief complaint) Tear film insufficiency of bilateral lacrimal glandsOther vitreous opacities, bilateralDipl opiaHypermetr opia of both eyes Oct-3 0- 8 Krishnasamy Anthony. [address], [address], [place], [place], [id number], [place]. tel:[phone] Referring Provider: Anthony Gutierrez, [address], [place], [address]. tel:[phone] OFFICE/OUTPA TIENT VISIT, EST [facility], [address] [place] [address], [id number], [place] tel:[phone] OPH CONSULT [facility] blurry vision (chief complaint) dry eyes (chief complaint) DiplopiaOther vitreous opacities, bilateralTear film insufficiency of bilateral lacrimal glandsHyperme tropia of both eyes Dec-2 7 7 Krishnasamy Anthony. [address], [address], [place], [place], [id number], [place]. tel:[phone] Referring Provider: Anthony Gutierrez, [address], [place], [address]. tel:[phone] OFFICE/OUTPA TIENT VISIT, EST [facility], [address] [place] [address], [id number], tel:[phone] OPH CONSULT [facility] blurry vision (chief complaint) Reflex sympathetic dystrophy, unspecifiedTe ar film insufficiency , unspecifiedHy permetropia of both eyesOther vitreous opacities, bilateralDipl opia Oct-0 5-201 6 Krishnasamy Anthony. [address], [address], [id number], [place]. tel:[phone] Referring Provider: Anthony Gutierrez, [address], [place], [address]. tel:[phone] OFFICE/OUTPA TIENT VISIT, NEW [facility], [address] [place] [address], [id number], [place] tel:[phone] Oph Consult [facility] blurry vision (chief complaint) Hypermetropia Tear film insufficiency , unspecifiedOt her vitreous opacitiesDipl opiaReflex sympathetic dystrophy, unspecified Sep-2 8-201 5 Krishnasamy Anthony. [address], [address], [id number], [place]. tel:[phone] Referring Provider: Anthony Gutierrez, [address], [place], [address]. tel:[phone] OFFICE/OUTPA TIENT VISIT, EST [facility], [address] [place] [address], [place], [place], [id number], [place] tel:[phone] Oph Consult [facility] Office Tear film insufficiency , unspecifiedRe flex sympathetic dystrophy, unspecifiedOt her vitreous opacitiesHype rmetropiaDipl opia Feb- 4 Krishmargaret Anthony. [address], [address], [place], [place], [id number], [place]. tel:[phone] Referring Provider: Anthony Gutierrez, [address], [place], [address]. tel:[phone] OFFICE/OUTPA TIENT VISIT, EST [facility], [address] [place] [address], [place], [place], [id number], tel:[phone] Oph Consult [facility] Office Other vitreous opacitiesTear film insufficiency , unspecifiedDi plopiaHyperme tropia Mar- 3 Krishnasnina Anthony. [address], [address], [place], [place], [id number], [place]. tel:[phone] Referring Provider: Anthony Gutierrez, [address], [place], [address]. tel:[phone] OFFICE/OUTPA TIENT VISIT, EST [facility], [address] [place] [address], [id number], [place] tel:[phone] OPH CONSULT [facility] Tear film insufficiency , unspecifiedRe flex sympathetic dystrophy, unspecifiedDi plopiaHyperme tropia Sep- 3 Krishnasnina Anthony. [address], [address], [place], [place], [id number], [place]. tel:[phone] Referring Provider: Anthony Gutierrez [address], [place], [address]. tel:[phone] OFFICE/OUTPA TIENT VISIT, EST [facility], [address], [id number], tel:[phone] OPH CONSULT [facility] Tear film insufficiency , unspecifiedDi plopia 2 Brenda Cruz. [address], [address], [address], . tel:[phone] Referring Provider: Anthony Gutierrez, [address], [place], [address]. tel:[phone] OFFICE/OUTPA TIENT VISIT, NEW [facility], [id number] [place] [address], [place], [place], [id number], tel:[phone] OPH CONSULT [facility] DiplopiaHeada cheHypermetro tierra 1 Brenda Cruz. [address], [place], [place], [address], . tel:[phone] Family History Family Member Type Diagnosis Age At Onset Son Problem (finding) Lazy eye Payers Payer name Insurance type Covered constitution party ID Authorjosea tirin(s) [place] [id number] [place] [id number] Social History Type Description Quantity Date Captured [...] D&N. Pt saw Dr Nai Sotelo at [facility] for prism. Pt did not [...] Related to Age-r elated nuclear cataract, bilateral Apr- Impression/Plan Related to Hyper metropia, bilateral Impression/Plan Related to Diplo tierra Impression/Plan Related to Other vitreous opacities, bilateral Oct- Impression/Plan Related to Tear film insufficiency of [...] s zoster without complication Impression/Plan Related to Diplo tierra Impression/Plan Related [...] Hyper metropia of both eyes Impression/Plan - Ne w Rx given today [...] Tear film insufficiency of bilateral lacrimal glands RTO 1 year with [facility] Related to [...] 1 year with for Complete Exam. Impression/Plan - Gl asses Rx not given [...] symptoms noted. Related to Other vitreous opacities Reflex sympathetic d ystrophy, unspecified Related to [...] due to dry eye Related to Diplopia Diplopia OU Related to Diplo tierra Hypermetropia [...] needed. 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 Patient will see Oscarnahun Richardson (drill sharpener) @ [facility] for prisms/glasses. 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 Patient will see Smita Richardson (drill sharpener) @ [facility] 12/24/2010 for motility exam and [...]
--- OUTSIDE RECORDS SUMMARY | 2025-03-03 00:34 | XMS_ITS | Patient Health Record ---
Author Organization [facility] Address [address] [place], [place] [address] Care Team Providers Care Bulk Sausage Casing Tier Off Name Role Phone Jackson BRYANT, Tom Primary Care Provider Cecilia Nicole Unavailable [phone] ALLERGIES Allergen (clinical drug ingredient) Drug/Non Drug [...] osteoarthritis of right knee (M17.11) Active confirmed [id number] Problem Closed nondisplaced fracture of acromial end of left clavicle, initial encounter (S42.035A) Active confirmed [id number] Problem Closed nondisplaced fracture of acromial end of left clavicle with routine healing, subsequent encounter (S42.035D) Active confirmed 6636224 Problem Right hip pain (M25.551) Active confirmed Right hip pain (820066466822873) Problem Left hip pain (M25.552) Active confirmed Arthralgia of t he pelvic region and thigh (021032700) Problem Primary localized osteoarthritis of right knee (M17.11) Active confirmed Primary osteoarthritis (129726530) Problem Pes anserine bursitis (M70.50) Active confirmed [id number] PLAN OF TREATMENT Pending Test Test Name Order Date X ray : Hip, left, 2 02/24/2018 X ray : Hip, right, 2 02/24/2018 X ray : Knee, right 3 views 11/30/2017 Insurance Providers Payer Name Payer Address Payer Phone Subscriber Number Group Number Insured Name Patient Relationship to Insured Coverage Start Date Coverage End Date Medicare Services [address] [address] [place] [address] [id number] Naye Hart Self - patient is the insured 0 Medicaid [address] [place] [id number] Naye Hart Self - patient is the [...]
--- OUTSIDE RECORDS SUMMARY | 2025-03-03 00:34 | XMS_ITS | Clinical Summary ---
Author Organization [facility] Address [address] [place] [address] Care Team Providers Care Head Bander And Liner Operator Name Role Phone Tom Paz MD Primary Care Provider [phone] Tiago Vargas MD, Hugo P Unavailable [phone] Allergies Active Allergy Reactions Criticality Noted Date [...] on file Legal Sex Female 10:47 AM WARP SPLITTER Gender Identity Not on file Sexual Orientation [...] st Contact Info) Description 07/04/2025 10:00 AM WARP SPLITTER Office Visit [facility] - [address], [address] [place] [address] Gopi Luna MD [address] [place] [address] Health Maintenance Due Date Last Done Comments [...] this topic Medical Devices Implanted Type Area Pickle Sorter Device Identifier Shelf Expiration Date Model / Serial / Lot Ivc Filter Filter Pacemaker Pacemaker BIOTRONIK Spinal Cord Stimulator Implant Stimulator Implant Insurance MEDICARE MEDICAID Care Teams Head Bander And Liner Operator Relationship Specialty Start Date End Date Tom Paz MD [address] [address] PCP - General 09/29/22 Hugo Ordoñ[place]., [place] [address] [id number] CARDIOVASCULAR DISEASE 07/15/23
--- OUTSIDE RECORDS SUMMARY | 2025-03-03 00:34 | XMS_ITS | Clinical Summary ---
Author Organization [facility] al Address [address] [place] [address] Care Team Providers Care Priming Machine Operator Name Role Phone Tom Paz MD Primary Care Provider [phone] Tab Taylor MD Unavailable [phone] Favian Caceres MD Unavailable [phone] Allergies Active Allergy Reactions Criticality Noted Date [...] - blisters Etanercept Itching Low 02/24/2022 Gum Tuztsp-Khrgvs-Qyya-Alcoho l Blisters,Rash High 12/17/2021 Mastisol - blisters [...] QuantGold Assessment & Plan (07/28/2024 11:19 AM SOLUTION ARCHITECT): Monitor routine labs while on immunosuppressive [...] QuantGold Assessment & Plan (09/22/2023 12:26 PM SOLUTION ARCHITECT): Monitor routine labs while on immunosuppressive [...] QuantGold Assessment & Plan (09/11/2022 12:48 PM SOLUTION ARCHITECT): Monitor routine labs while on immunosuppressive medications. Recent 2/ labs stable. 06/2020: Neg Hep B/C 03/2021: Neg QuantGold Assessment & Plan (07/01/2022 9:25 AM SOLUTION ARCHITECT): Monitor routine labs while on immunosuppressive [...] QuantGold Assessment & Plan (08/19/2021 2:31 PM SOLUTION ARCHITECT): Monitor routine labs while on immunosuppressive [...] Hospitalized for total of 8 days, at [facility] and [facility]. Had CT brain/neck angio that [...] Hospitalized for total of 8 days, at [facility] and then [facility]. Had CT brain/neck [...] 07/24/2020 Assessment & Plan (07/24/2020 12:34 PM SOLUTION ARCHITECT): Her greatest pain complaint at this [...] 07/24/2020 Assessment & Plan (07/01/2022 2:12 PM SOLUTION ARCHITECT): Self weaned off Cymbalta 2 days [...] exercise. Assessment & Plan (08/27/2020 2:41 PM SOLUTION ARCHITECT): Fatigue with sensation of pain all [...] exercise. Assessment & Plan (07/24/2020 12:36 PM SOLUTION ARCHITECT): Fatigue with sensation of pain all [...] PT. Assessment & Plan (08/28/2020 12:26 PM SOLUTION ARCHITECT): Multifocal OA (hands and hips) per recent xrays. Continue Tylenol 500 mg qid. Continue PT. Assessment & Plan (07/24/2020 12:41 PM SOLUTION ARCHITECT): Multifocal OA (hands and hips) per [...] [facility] use [facility]. Labs today. To return in 6 weeks for re-evaluation - this can be moved out to 3 months if joints remain stable. Assessment & Plan (07/28/2024 11:22 AM SOLUTION ARCHITECT): Off MTX (oral ulcers/hair thinning). Remains [...] blood glucose, glaucoma and osteopenia with intermediate card tender use of steroids. She was strongly encouraged [...] needed. Assessment & Plan (09/22/2023 12:32 PM SOLUTION ARCHITECT): A 09/2022 repeat left hand/wrist US [...] needed. Assessment & Plan (09/11/2022 12:48 PM SOLUTION ARCHITECT): Continued 15mg MTX weekly and monthly [...] Chan. Assessment & Plan (08/06/2022 9:00 PM SOLUTION ARCHITECT): Has continued 15mg MTX weekly as [...] we have no access to them through [facility]). She already had an OV scheduled for 09/02 - will re-evaluate joints at that time and consider repeat hand US if synovitis is absent/minimal on exam but she is still noting pain -to evaluate for underlying inflammation. She may require change in biologic medication. Assessment & Plan (07/01/2022 2:09 PM SOLUTION ARCHITECT): CDAI 37, high Off Enbrel due [...] She is to follow up with her recreation therapy teacher soon due to low BP following her [...] Chan. Assessment & Plan (08/19/2021 9:00 PM SOLUTION ARCHITECT): CDAI 25. On 15mg MTX weekly but has only taken 3 Enbrel injections so far. Just completed a medrol dose pack from her recreation therapy teacher due to inflammation around her heart (pericarditis?). [...] incontinence. Has followed up with PCP and recreation therapy teacher - started Ubrelvy for JACKSON and recreation therapy teacher is to adjust her pacemaker on 05/23. [...] the ). A letter was provided for [facility] to allow Humira to be [...] needed. Assessment & Plan (08/28/2020 12:26 PM SOLUTION ARCHITECT): Our workup showed an JANNET 1:160 [...] needed. Assessment & Plan (07/24/2020 12:33 PM SOLUTION ARCHITECT): 54yoF referred for evaluation due to [...] reassess. Assessment & Plan (07/06/2020 4:49 PM SOLUTION ARCHITECT): 54yoF referred for evaluation due to [...] (12/13/2019): Added automatically from request for surgery [id number] SVT (supraventricular tachycardia) 12/13/2019 Overview (12/13/2019): Added automatically from request for surgery [id number] A-fib 11/24/2019 Overview (11/24/2019): Added automatically from request for surgery [id number] Laryngopharyngeal reflux (LPR) 08/04/2018 Assessment & Plan (10/20/2018 12:26 PM CDT): No longer taking the omeprazole and ranitidine as prescribed. Patient is no longer experiencing any coughing, sinonasal or throat symptoms. Assessment & Plan (08/04/2018 1:17 PM SOLUTION ARCHITECT): Add omeprazole 40 mg Q morning [...] resume. Assessment & Plan (08/04/2018 1:11 PM SOLUTION ARCHITECT): Patient's chronic cough is most likely [...] Description 02/24/2025 8:09 AM CDT Anesthesia Event [facility] Operating Room [address] [place] [address] Arely Hansen MD Gardner, Kari Elizabeth, NP 02/24/2025 8:05 AM CDT - 02/24/2025 8:50 AM CDT Surgery [facility] Operating Room [address] [place] [address] Roge Dowell MD DRUG INDUCED SLEEP ENDOSCOPY EVAL FLEX DIAG 02/24/2025 5:56 AM CDT - 02/24/2025 9:00 AM CDT Hospital Encounter [facility] Operating Room [address] [place] [address] Roge Dowell MD Obstructive sleep apnea (Primary Dx) Discharge Disposition: Discharge to home or self care 02/06/2025 11:00 AM CDT - 02/06/2025 11:59 PM CDT Hospital Encounter [facility] [address] [place] [address] Dougie Lord MD Right knee pain, unspecified chronicity (Primary Dx) Discharge Disposition: Discharge to home or self care 01/26/2025 8:20 AM CDT Office Visit [facility] [address] [place] [address] Medical Office Building [address] [place] [phone] Roge Dowell MD CELINA (obstructive sleep apnea) (Primary Dx); Obstructive sleep apnea (adult) (pediatric) 01/24/2025 Results Follow-Up [facility] [address] [place] [address] Claudia Cristobal PA CBC with auto differential, Comprehensive metabolic panel 01/23/2025 10:30 AM CDT Office Visit [facility] [address] [place] [address] Claudia Cristobal PA Seronegative rheumatoid arthritis (HCC) (Primary Dx); Encounter for long-term (current) use of high-risk medication 01/23/2025 Documentation [facility]enter[facility] [address] [facility] 12th [place] [phone] Carlie Patricia 01/19/2025 Telephone [facility] [address] [place] [address] Dougie Lord MD POST CALL 01/13/2025 Orders Only [facility] [address] [place], [place] [address] Dougie Lord MD 01/12/2025 Telephone [facility] [address] [place], [place] [address] Dougie Lord MD Post Procedure Pain 01/11/2025 9:36 AM CDT - 01/11/2025 11:59 PM CDT Hospital Encounter [facility] [address] [place] [address] Transient ischemic attack (TIA); Cerebrovascular disease, unspecified; Unspecified visual loss; Presence of cardiac pacemaker Discharge Disposition: Discharge to home or self care 01/11/2025 9:35 AM CDT - 01/11/2025 11:59 PM CDT Hospital Encounter [facility] [address] [place] [address] Encounter for imaging to screen for metal prior to magnetic resonance imaging (MRI) Discharge Disposition: Discharge to home or self care 01/11/2025 8:47 AM CDT - 01/11/2025 11:59 PM CDT Hospital Encounter [facility] [address] [place] [address] Unspecified injury of right shoulder and upper arm, initial encounter Discharge Disposition: Discharge to home or self care 01/11/2025 Documentation Cardiology Sofiya oRsa NP 01/06/2025 10:22 AM CDT - 01/06/2025 11:59 PM CDT Hospital Encounter [facility] [address] [place] [phone] Dougie Lrod MD Right knee pain, unspecified chronicity Discharge Disposition: Discharge to home or self care 01/05/2025 Telephone [facility] at [facility] [address] [facility] [address] [place] [phone] Dougie Lord MD Pre-Surgical Call 01/05/2025 Telephone [facility] Dermatology [address] [facility] [address] [place] [phone] Luis Hobbs RMA Med Refill (HC 2.5% Cr) 12/08/2024 7:04 AM CDT - 12/08/2024 11:59 PM CDT Hospital Encounter [facility] [address] [place] [address] Trey Arroyo MD Abdominal pain; Nausea and vomiting, unspecified vomiting type Discharge Disposition: Discharge to home or self care 12/08/2024 Telephone [facility]astroenterology [address] [facility] 12th [place] [address] [place] [address] Carlie Patricia Prior Auth 12/08/2024 Orders Only [facility]ology [address] [place] [address] Trey Arroyo MD 12/08/2024 Results Follow-Up [facility] Endoscopy [address] [place] [address] Abdomen Pelvis W Contrast 12/06/2024 E-Visit [facility] [address] [place] [address] Claudia Cristobal PA Ultrasound 12/05/2024 Orders Only [facility] [address] [place] [address] Claudia Cristboal PA from Last 3 Months Surgical History [...] drink = 0.6 oz pur e alcohol) [facility] Utilities Answer Date Recorded In the past 12 months has e [employer], gas, oil, or water [employer] threatened to shut off services in [...] often do you attend chur ch or hinduism services? More than 4 times per year 02/11/2024 Do you belong to any clubs o r organizations such as congregational groups, unions, fraternal or athletic groups, or [...] in the past 12 m [facility], were you homeless or [...] on file Legal Sex Female 12:21 AM SOLUTION ARCHITECT Gender Identity Not on file Sexual [...] the likelihood of falling Lifestyle No Hali rBewer RN Note: Below are four things you [...] home safety. Medical Devices Implanted Type Area Travel Agency Manager Device Identifier Shelf Expiration Date Model / Serial / Lot Ivc Filter- 7 Implanted:Qty: 1 on 06/09/2007 by Tam Fraser MD IVC Filter N/A: Vena Cava Lead-Spinal Cord Stimulator- 018 Implanted:2017 by Taran Ramirez MD (Quantity not on file) Lead Back [employer] SC-2158- 50 / / Biotronik Ra Lead ([id number])- 019 Implanted:2018 (Quantity not on file) Lead Chest Biotronik SOLIA S 45 [id number] 176 / [id number] / Lead (Rv)-05/23/2021 Implanted:2020 (Quantity not on file) Lead Heart Biotronik JUAN MANUEL S 53 377 177 / [id number] / Biotronik Paceomaker Ariana Anne Gamez-T-12/24/2023 Implanted:2023 (Quantity not on file) Pacemaker Chest Wall [employer]ik 225179 / [id number] / Spinal Cord Stimulator- 018 Implanted:Qty: 1 on 08/20/2017 by Taran Ramirez MD Spinal Cord Stimulator N/A: Back [employer] SC-1200 / [id number] / Spinal Cord Stimulator Lead-08/20/2017 Implanted:2017 by Taran Ramirez MD (Quantity not on file) Spinal Cord Stimulator Back [employer] Neuro- [id number] 0 / / Hardware Thoracic-L umbar Spine Loop Recorder Chest Wall Chris V[employer] System Closure Repair Femoral Artery Suture Mediated Perclose Prostyle 14141-78 - [id number] Implanted:Qty: 1 on 02/09/2024 by Morgan Roy MD at [facility] Vascular 11/16/2025 07966-50 / / [id number] Chris Vascular Percutaneous Transcatheter Amplatzer Amulet 18mm 8-[id number] - [id number] Implanted:Qty: 1 on 02/09/2024 by Morgan Roy MD at [facility] 09/17/2027 9-ACP2-0 07-018 / / [id number] Chris Vascular System Closure Repair Femoral Artery Suture Mediated Perclose Prostyle 84473-11 - [id number] Implanted:Qty: 1 on 02/09/2024 by Morgan Roy MD at [facility] 11/16/2025 17857-20 / / [id number] [employer] Sling Urinary Incontinence Female Stress Short Desara Blue Sis-Ds01bs - [id number] Implanted:Qty: 1 on 06/28/2024 by Shankar Mak MD at [facility] N/A: Urethra [employer] 01/04/2027 SIS-DS01 BS / / [id number] Explanted Type Area Travel Agency Manager Device Identifier Shelf Expiration Date Model / Serial / Lot Biotronik Rv Lead ([id number])-07/04 Implanted:Qty: 1 on 07/04/2019 Explanted:Qty: 1 Lead Chest Biotronik [id number] / / Description:This lead was re placed and left behind per patient on 05/23/21 Biotronik Pacemaker ([id number])-07/04 Implanted:Qty: 1 on 07/04/2019 Explanted:Qty: 1 on 12/24/2023 Pacemaker Left: Chest Biotronik ELUNA 8 KRISTY CARBAJAL / [id number] / [id number] Procedures Procedure Name Priority Date/Time Associated Diagnosis [...] 3:20 PM CDT COLONOSCOPY 08/02/2024 1:43 PM SOLUTION ARCHITECT HEPATITIS C ANTIBODY Routine 07/06/2020 2:58 PM SOLUTION ARCHITECT Polyarthralgia Encounter for screening for other viral diseases from Last 3 Months or Most Recently Relevant to Health Maintenance Results * (ABNORMAL) CBC with auto differential (01/23/2025 11:04 AM CDT) Pathologist [facility] WBC 4.2 3.8 - 10.8 Thousand/u L [...] BLOOD ORDER IDRIS Final Result [facility] [address] [facility] [place] [address] * Comprehensive metabolic panel (01/23/2025 11:04 AM [...] BLOOD ORDER IDRIS Final Result [facility] [address] [address] [facility] [place] [address] * MRI Shoulder Right WO Contrast (01/11/2025 [...] Resu lt * Imaging Genicular RFA Right (70379) (01/06/2025 11:33 AM CDT) Narrative RAD_PACS_[facility] - [...] - Final * Colonoscopy (08/02/2024 1:43 PM SOLUTION ARCHITECT) Anatomical Region Laterality Modality Other Narrative Procedure Note Trey Arroyo MD - 08/02/2024 1:43 PM [facility] Patient Name: Naye Hart Procedure Date: 08/02/2024 1:43 PM Date of : 1965 Admit Type: Outpatient Age: 58 Gender: Female Attending MD: Trey Arroyo M.D. Room: [facility] ENDOSCOPY ROOM 8 Note Status: Finalized [...] The scope was passed under direct vision.The [id number] endoscope was introduced through the anus and advanced to the terminal ileum. The colonoscopy was performed without difficulty. The patient tolerated the procedure well. The qualityof the bowel preparation was evaluated using the BBPS ([place] Bowel Preparation Scale) with scores of:Right Colon [...] During normal business hours - [facility] Coord[facility]: [phone] After hours, evening, nights, weekends and holidays- Please call the hospital finishing powder press operator at and ask for the GI fellow internal communications specialist. Attending Participation: I was present and participated during the entire procedure, including non-patrick portions. Electronically signed by Trey Arroyo MD Trey Arroyo M.D. 08/02/2024 2:08:56 PM . Number of Addenda: 0 Note Initiated On: 08/02/2024 1:43 PM Trey Arroyo MD ENDOSCOPY PROCEDURES Final Result * Hepatitis C antibody (07/06/2020 2:58 PM SOLUTION ARCHITECT) Hep C Ab NON-REACTI VE NON-REACT GIA [facility] SIGNAL TO CUT-OFF 0.02 <1.00 [facility] Comment: HCV antibody was non-reactive. There is no laboratory evidence of HCV infection. In most cases, no further action is required. However, if recent HCV exposure is suspected, a test for HCV RNA (test code 66528) is suggested. For additional information please refer to http://[email or web address]/faq/QKY91h0 (This link is being provided for informational/ educational purposes only.) Blood specimen (specimen) 07/06/2020 2:58 PM SOLUTION ARCHITECT 07/06/2020 3:00 PM SOLUTION ARCHITECT Narrative [facility] - 07/11/2020 9:33 PM SOLUTION ARCHITECT PATIENT UNABLE TO VOID; ADVISED TO RETURN FOR COLLECTION. us [facility] MICROBIOLOGY - GENERA L ORDERABLES Final Result [facility] [address] [place] [address] from Last 3 Months or Most Recently Relevant to Health Maintenance [place] [address] [facility] MEDICARE [facility] MEDICARE [facility] [address] [place] [address] MED[address] [place] [address] MEDICARE [facility] Advance Directives For more information, please contact: [phone] * Full Code (Latest Code Status on [...] 10:10 AM 02/24/2022 4:09 PM Care Teams Priming Machine Operator Relationship Specialty Start Date End Date Tom Paz MD PCP - General 09/09/16 Tab Taylor MD [address] [place] [address] Consulting Physician Cardiology 01/03/20 Favian Caceres MD [address] [place] [address] Consulting Physician Rheumatology 08/28/23
--- OUTSIDE RECORDS SUMMARY | 2025-03-03 00:34 | XMS_ITS | Patient Health Record ---
Author Organization [facility] Address [address] [place] [address] Care Team Providers Care Him Clerk Name Role Phone Luis Newsome Primary Care Provider [phone] Allergies Allergen (clinical drug ingredient) Drug/Non Drug [...] Risk Notes Problem Fear of medical treatment (073342134) Fear of injections and transfusions (F40.231) Active confirmed Problem Localized, primary osteoarthritis of the pelvic region and thigh (132640195) Unilateral primary osteoarthritis, 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) Active confirmed Problem Localized, primary osteoarthritis of the pelvic region and thigh (207258829) Unilateral primary osteoarthritis, left hip (M16.12) Active confirmed Problem Solitary sacroiliitis (745942385) Sacroiliitis, not elsewhere classified (M46.1) Active confirmed Problem Cervical radiculopathy (49223157) Radiculopathy, cervical region (M54.12) Active confirmed Problem Cervical radiculopathy (00939505) Radiculopathy, cervicothoracic region (M54.13) Active confirmed Problem Lumbosacral radiculopathy (0973380) Radiculopathy, lumbosacral region (M54.17) Active confirmed Plan Of Treatment No Information Insurance Providers Payer Name Payer Address Payer Phone Subscriber Number Group Number Insured Name Patient Relationship to Insured Coverage Start Date Coverage End Date MEDICARE SERVICES [address] [address] [place] [address] [id number] Naye Hart Self - patient is the insured 0 IPA [address] [address] [place] [address] [id number] Naye Hart Self - patient [...]
--- OUTSIDE RECORDS SUMMARY | 2025-03-03 00:34 | XMS_ITS ---
Author Organization [facility] Address [address] [place], [place] [address] Care Team Providers Care Contract Sheltered Workshop Supervisor Name Role Phone CATHI SILVA Unavailable [phone] Tom Paz Unavailable Unavailable CATHI BURNS Unavailable [phone] REASON FOR VISIT possible stress fracture Encounters Encounter Location Date Provider Diagnosis [facility] [place] [address] [place], [place] [id number] 09/29/2024 CATHI BURNS Plan Of Treatment No Information Progress Notes * ALONDRANaye ALEJANDREDOB:1965 ( 59 yo F)Acc No.[id number]:09/29/2024 Patient: Naye RAI Provider: Sammi Burns DPM :1965 A ge:59 Y S ex:Female Date:09/29/2024 Address:[address] [place] [address], [address], [place], [place]-[address] Subjective: * Chief Complaints: * 1 . Possible stress fracture. * Medical History: Objective: * Vitals: Assessment: Plan: * Treatment: * Billing Information: * Visit Code: * Procedure Codes: * Electronic signature of CATHI BURNS DPM on 03/03/2025 at 12:34 AM CDT Sign off status: Pending * Provider: Sammi Burns DPM Date: 0 09/29/2024 Generated for Mikaela alcaraz/Sheng/Iris on: 0 03/03/2025 12:34 AM CDT
--- OUTSIDE RECORDS SUMMARY | 2025-03-03 00:34 | XMS_ITS | Patient Health Record ---
Author Organization [facility] Address [address] [place], [place] [address] Care Team Providers Care Public Service Director Name Role Phone CATHI SILVA Unavailable [phone] Tom Paz Unavailable Unavailable CATHI BYNUM Unavailable [phone] Allergies Allergen (clinical drug ingredient) Drug/Non Drug [...] Location Date Provider Diagnosis [facility] [place] [address] [place], [place] [id number] 09/19/2024 CATHI SILVA Tinea pedis B35.3 ; Acquired keratosis [keratoderma] palmaris et plantaris L85.1 ; Metatarsalgia, right foot M77.41 ; Metatarsalgia, left foot M77.42 ; Other eczema L30.8 ; Pain in right foot M79.671 and Left foot pain M79.672 [facility] [address] [facility] [address] [place], [place] [id number] 09/21/2024 CATHI SILVA Assessments Encounter Date Diagnosis [...] erythematous, pruritic, scales or erosions between toes. Canaan-type tinea pedis affects the soles and medial [...] the patient use an emollient such as [id number]-aba-zhjlrwu Eucerin cream, Vanicream, or other lotion to [...] Date Coverage End Date Medicare Part B [facility] [address] [place] [address] [id number] Naye Hart Self - patient is the insured 0 Medical (General) History Medical History History ICD Code fibromyalgia anemia Leg/Feet cramps stroke rheumatoid arthritis Heart Disease Blood clots restless leg syndrome Back Trouble low blood pressure Surgical History Surgery Date(Month/Year) Tubal Ligation Pacemaker Hernia
--- OUTSIDE RECORDS SUMMARY | 2025-03-03 00:34 | XMS_ITS | Clinical Summary ---
Author Organization [facility] Address [address] [place] [address] Care Team Providers Care Manager Medical Device Name Role Phone Tom Paz MD Primary Care Provider [phone] Allergies Active Allergy Reactions Criticality Noted Date [...] blisters Etanercept Swelling Low 12/09/2023 Embrel Gum Hfmwqo-Fcyrxg-Dbab-Alcoho l Rash Low 12/09/2023 Mastisol - blisters [...] this topic Medical Devices Implanted Type Area Loss Prevention Specialist Device Identifier Shelf Expiration Date Model / Serial / Lot Tyrx Antibacterial Envelope Med [id number] - [id number] Implanted:Qty: 1 on 12/24/2023 at [facility] Mesh Left: Chest MEDTRONIC- CARD RHYTHM MGMT 10/01/2024 [id number] / / [id number] Neuro Stimulator Neuro Stimulator Virtual Bridges SC-1200 / / Description:leads: SC- Need lead numbers Dc Ppm Gen Implanted:Qty: 1 on 12/24/2023 by Burton Forbes MD at [facility] N/A: Chest Wall [id number] / [id number] 90 / Explanted Type Area Loss Prevention Specialist Device Identifier Shelf Expiration Date Model / Serial / Lot Dc Eluna 8 Ppm Gen Explanted:Qty: 1 on 12/24/2023 by Burton Forbes MD at [facility] Pacemaker Chest Wall [employer] ELUNA 8 KRISTY / [id number] / Description:Implant date: Per [employer] Rep - NOT MRI safe (extra cap lead -ABANDONED LEAD - NO MRI -lizandro 08/14/23 Insurance MEDICARE PART A AND B BCBS [employer] [id number] [place] [address] MEDICARE PART A AND B [address] [place] [address] RX [employer] RX Member Subscriber Plan / Payer (Ef fective 2023-Present) Name:Naye Hart Relation to Subscriber:Self Name:Naye Hart Subscriber ID:Not on file Payer ID:Not on file Group ID:[id number] Type:RX Commercial Address: [address] Advance Directives For more information, please contact: [phone] Documents on File Type Date Recorded Patient Exhibit Cleaner Expl anation Advance Directive POA 12/24/2023 8:33 AM Ad valenzuela Directive POA * Full Code (Latest Code Status on File) Date Activated Date Inactivated Comments 12/24/2023 3:32 PM 12/25/2023 12:17 PM Care Teams Manager Medical Device Relationship Specialty Start Date End Date Tom Paz MD [address] [place] [address] PCP - General Family Practice 01/28/22
[2025-03-03] MEDS: LIDOCAINE 5% PATCH 1 PATCH TRANSDERM (01:00)
--- NOTE | 2025-03-03 01:01 | ED_ITS ---
HPI - Extremity Injury (Lower) General Chief Complaint: Extremity Injury, Lower Stated Complaint: right knee injury Time Seen by Provider: 03/03/25 00:20 History of Present Illness HPI Narrative: 59-year-old female with history of complex regional pain syndrome, multiple previous surgeries in her knees and hips. She presents with acute right knee pain yesterday after she may have twisted or buckled wall missing a step on a flight of stairs. Did not fall or injure self. Went about her day normally but today knows that she has had some swelling in her right knee and came to the ER for imaging. She has an outpatient orthopedic surgeon but has not made an appointment with them. She has an upcoming appointment with her neurosurgeon in 4 days for sacroiliitis surgery. Has not tried anything for pain and symptom control as she is allergic to many things and on a restricted regimen until surgery. Patient denies any neuropathy or difficulty ambulating. She is having some pain in the medial aspect of her right knee similar to the previous time she injured her MCL. No other traumatic injuries. She was otherwise in her normal state of health. Ambulatory here in the emergency department. Related Data Home Medications ?Medication ?Instructions ?Recorded ?Confirmed ?Last Taken ?Type golimumab 50 mg/0.5 mL 50 mg subcut MONTHLY 03/26/23 02/28/25 06/19/23 09:00 History subcutaneous pen injector (Simponi) aspirin 81 mg tablet,delayed 81 mg PO DAILY 07/01/23 02/28/25 Unknown History release mupirocin 2 % topical ointment 1 applic topical BID 07/01/23 02/28/25 Unknown History metoprolol tartrate 50 mg tablet 50 mg PO BID 10/22/23 02/28/25 Unknown History fexofenadine 180 mg tablet 180 mg PO DAILY 10/14/24 02/28/25 Unknown History (Vicky Allergy) leflunomide 20 mg tablet 10 mg PO DAILY 11/10/24 02/28/25 Unknown History Allergies Allergy/AdvReac Type Severity Reaction Status Date / Time meclizine Allergy Severe Rash Verified 03/02/25 21:29 carbamazepine (From Tegretol) Allergy Intermediate Blister Verified 03/02/25 21:29 2-octyl cyanoacrylate Allergy Mild Itching Verified 03/02/25 21:29 Cephalosporins Allergy Mild RASH Verified 03/02/25 21:29 clarithromycin Allergy Mild RASH Verified 03/02/25 21:29 imipramine Allergy Mild RASH Verified 03/02/25 21:29 Penicillins Allergy Mild HIVES Verified 03/02/25 21:29 cefuroxime (From Ceftin) Allergy Hives Verified 03/02/25 21:29 etanercept (From Enbrel) Allergy Redness of Verified 03/02/25 21:29 Skin hydromorphone (From Dilaudid) Allergy Hives Verified 03/02/25 21:29 oxycodone (From Percocet) Allergy Hives Verified 03/02/25 21:29 prochlorperazine (From Allergy Swelling Verified 03/02/25 21:29 Compazine) of Lip/Tongue/Throat propoxyphene (From Darvon) Allergy Hives Verified 03/02/25 21:29 propranolol (From Inderal LA) Allergy Rash Verified 03/02/25 21:29 alcohol (From Mastisol AdvReac Severe Blister Verified 03/02/25 21:29 Adhesive) chloroxylenol (From Bison 7) AdvReac Severe rash Verified 03/02/25 21:29 gum mastic (From Mastisol AdvReac Severe Blister Verified 03/02/25 21:29 Adhesive) methyl salicylate (From AdvReac Severe Blister Verified 03/02/25 21:29 Mastisol Adhesive) storax (From Mastisol AdvReac Severe Blister Verified 03/02/25 21:29 Adhesive) tizanidine AdvReac Intermediate Hallucinati Verified 03/02/25 21:29 ng codeine AdvReac Unknown Vomiting Verified 03/02/25 21:29 diphenhydramine (From AdvReac Vomiting Verified 03/02/25 21:29 Benadryl) hydrocodone (From Vicodin) AdvReac Vomiting Verified 03/02/25 21:29 Review of Systems Review of Systems: As reviewed above in [facility] Past Medical History Medical History Knee pain Candidiasis Inflammation of pyloric mucosa Left shoulder pain Bilateral shoulder pain Stomach ulcer Leg edema, right Bilateral leg paresthesia Knee injury Pain of left femur Left thigh pain Coccygeal pain, acute COVID-19 COVID Loss of vision TMJ (temporomandibular joint disorder) Acquired deviated nasal septum Nosebleed Pacemaker Right shoulder pain Witnessed apneic spells Snoring Apnea Chronic GERD Presence of Amulet left atrial appendage closure device Pelvic pain Hematoma of left chest wall Topical med dermatitis Right hand pain Bilateral knee pain Lumbar pain Acute cervical myofascial strain Acute bacterial sinusitis Hypersomnolence Migraine Vomiting DVT (deep venous thrombosis) Flatulence Cervical pain Spasm of lumbar paraspinous muscle MCL sprain of left knee Abrasion of toe Lesion of skin of nose Pneumonia LLQ abdominal pain Knee pain Foreign body in ear BMI 29.0-29.9,adult Lumbar stenosis Foraminal stenosis of lumbar region Pancreatitis Diarrhea Family history of beta thalassemia Inappropriate sinus tachycardia Presence of IVC filter Fibromyalgia Rheumatoid arthritis Anxiety Depression Abnormality of heart beat Ear pain Wears glasses Lightheadedness Vertigo Presence of neurostimulator History of deep vein thrombosis Abdominal bloating Hypoglycemia Allergic reaction to allergy skin test Abdominal lump Anxiety about health Hyponatremia Allergic dermatitis Headache Degenerative joint disease of cervical and lumbar spine TIA (transient ischemic attack) Ataxia A-fib Confusion Atypical face pain D-dimer, elevated Left ear pain Rheumatoid arthritis, seronegative, multiple sites Foreign body of toe Groin pain Groin hematoma Restless leg syndrome Dizziness Lipid disorder Fracture of second toe, left, closed Atopic dermatitis Bradycardia Anemia, unspecified Essential (primary) hypertension Mixed hyperlipidemia Paroxysmal atrial fibrillation RSD (reflex sympathetic dystrophy) SVT (supraventricular tachycardia) Surgical History Surgical History Hx of atrioventricular node ablation History of surgery on left wrist H/O cardiac radiofrequency ablation S/P IVC filter S/P insertion of spinal cord stimulator History of tubal ligation History of endometrial ablation H/O hernia repair Status post surgical removal of both fallopian tubes History of arthroscopic knee surgery History of back surgery History of permanent cardiac pacemaker placement 2019 pacemaker replaced 2023,updated 11/2024 Family History Family History Grandparent Family history of blood dyscrasia Family history of Alzheimer's disease Family history of malignant neoplasm of cervix Mother Family history of Alzheimer's disease Thyroid activity decreased Father Family history of lung cancer Sibling Thyroid activity decreased Other Diabetes mellitus Family history of allergic disorder Family history of kidney disease Family history of malignant neoplasm of thyroid High cholesterol Social History Social History Social History: Caffeine-none Smoking packs per day: 0 Smoking cigarettes per day: 0.0 Years smoked: 0 Smoking pack-years: 0.00 Smoking status: Never smoker Second hand tobacco smoke exposure: No Alcohol intake: never Substance use: never Substance use type: does not use Do You Feel Safe in your Home?: Yes Lack of Transportation: No Lack of Food: Never True Current Housing: I Have Housing Concerned About Future Housing: No Difficulty Paying Gas/Electric Bills: No Difficulty Paying for Meds: No Currently Unemployed: No Education: High School Diploma/GED Difficulty w/ Childcare or Family Care: No Living arrangements: alone Occupation/Education: retired 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 Mucous membranes moist. NECK: Supple. CHEST: [Clear to auscultation. No respiratory distress.] HEART: [Regular rate and rhythm]. No murmur heard. [Normal peripheral pulses.] ABDOMEN: [Soft, nondistended], [nontender], [No rigidity or guarding] EXTREMITIES: Normal range of motion. [No edema.] Mild suprapatellar effusion, mild tenderness over the medial aspect of the right knee around the medial joint line. No laxity with valgus or varus stress testing. Negative Eddie's testing and grind testing. EHL and FHL with 5/5 strength. Full range of motion of the knee, ankle and ambulatory without difficulty. SKIN: Warm, dry, no rash. NEURO: [No focal deficits]. Alert and oriented [x3.] PSYCH: [Normal mood and affect.] Course Vital Signs Vital signs: Vital Signs Temperature 36.6 C 03/02/25 21:30 Pulse Rate 71 03/02/25 21:30 Respiratory Rate 16 03/02/25 21:30 Blood Pressure 111/67 03/02/25 21:30 Pulse Oximetry 99 03/02/25 21:30 Oxygen Delivery Room Air 03/02/25 21:30 Temperature 36.6 C 03/02/25 21:30 Pulse Rate 70 03/02/25 22:31 Respiratory Rate 18 03/02/25 22:31 Blood Pressure 114/62 03/02/25 22:31 Pulse Oximetry 99 03/02/25 22:31 Oxygen Delivery Room Air 03/02/25 21:30 MDM - Extremity Injury (Lower) MDM Narrative Medical decision making narrative: 59-year-old female with history of complex regional pain syndrome, multiple previous surgeries in her knees and hips. She presents with acute right knee pain yesterday after she may have twisted or buckled wall missing a step on a flight of stairs. Did not fall or injure self. Went about her day normally but today knows that she has had some swelling in her right knee and came to the ER for imaging. She has an outpatient orthopedic surgeon but has not made an appointment with them. She has an upcoming appointment with her neurosurgeon in 4 days for sacroiliitis surgery. Has not tried anything for pain and symptom control as she is allergic to many things and on a restricted regimen until surgery. Patient denies any neuropathy or difficulty ambulating. She is having some pain in the medial aspect of her right knee similar to the previous time she injured her MCL. No other traumatic injuries. She was otherwise in her normal state of health. Ambulatory here in the emergency department. Mild suprapatellar effusion, mild tenderness over the medial aspect of the right knee around the medial joint line. No laxity with valgus or varus stress testing. Negative Eddie's testing and grind testing. EHL and FHL with 5/5 strength. Full range of motion of the knee, ankle and ambulatory without difficulty. X-rays were obtained and negative for any acute injuries. Patient's symptoms consistent with potential internal derangement of the right knee although difficult to diagnose. She will have to follow up with her orthopedic surgeon for full evaluation on outpatient basis. Given lidocaine patch and knee immobilizer. Given return precautions and safe for discharge home at this time. Medical Records Attestation: I reviewed the patient's medical records. Imaging Data Attestation: I personally reviewed and interpreted this imaging study as follows: My impression: Impressions Knee X-Ray 03/02/25 22:04 IMPRESSION: No acute osseous finding in the right knee. Discharge Plan Discharge Clinical Impression: Acute pain of right knee Patient Disposition: Home Condition: Stable Instructions: Antibiotic Form, Knee Pain (ED) Additional Instructions: X-rays do not show any bony abnormalities or injuries but your symptoms consistent with potential internal derangement in the right knee. Wear the knee immobilizer when you ambulate, apply topical therapy such as lidocaine patches, capsaicin gel verses Biofreeze. Follow-up with the corrosion control specialist on outpatient basis and return with any emergent concerns. Patient Language: Japanese Prescriptions: No Action aspirin 81 mg tablet,delayed release (DR/EC) 81 mg PO DAILY mupirocin 2 % ointment 1 applic topical BID Patient Comments: TAKES PRN promethazine [Promethegan] 25 mg suppository 25 mg RECTAL Q6H PRN (Reason: nausea and vomiting) Qty: 12 1RF metoprolol tartrate 50 mg tablet 50 mg PO BID nystatin 100,000 unit/gram ointment 1 applic topical BID Qty: 30 1RF Patient Comments: TAKES PRN fluconazole [Diflucan] 100 mg tablet 100 mg PO DAILY Qty: 1 0RF Simponi 50 mg/0.5 mL pen injector 50 mg SUBCUT MONTHLY Patient Comments: TAKES ON THE 1ST DAY OF THE MONTH Rx Instructions: pt will not restart till 2 weeks post procedure triamcinolone acetonide 0.1 % cream 1 applic topical BID Qty: 80 0RF Patient Comments: TAKES PRN pramipexole 1 mg tablet 1 mg PO BID Qty: 180 1RF Patient Comments: TAKES FOR RLS diclofenac sodium 1 % gel See Rx Instructions .ROUTE .COMPLEX Qty: 500 1RF Dose Instruction: APPLY 4 GRAMS TO SINGLE ELBOW, WRIST, OR HAND (INCLUDES PALM/FINGER/BACK OF HAND) 4 TIMES DAILY NEEDED FOR PAIN Rx Instructions: APPLY 4 GRAMS TO SINGLE ELBOW, WRIST, OR HAND (INCLUDES PALM/FINGER/BACK OF HAND) 4 TIMES DAILY NEEDED FOR PAIN leflunomide 20 mg tablet 10 mg PO DAILY pantoprazole 40 mg tablet,delayed release (DR/EC) 40 mg PO BID Qty: 1 0RF celecoxib 200 mg capsule 200 mg PO DAILY Qty: 30 3RF Rx Instructions: start after stopping Plavix. hydroxyzine HCl 25 mg tablet 25 mg PO Q8H Qty: 180 3RF baclofen 5 mg tablet 5 mg PO TID 5 Days Qty: 15 0RF Patient Comments: TAKES PRN albuterol sulfate [ProAir HFA] 90 mcg/actuation HFA aerosol inhaler 1 inh inhalation Q4H PRN (Reason: shortness of breath or wheezing) Qty: 6.7 3RF epinephrine [EpiPen 2-Ranulfo] 0.3 mg/0.3 mL auto-injector 0.3 mg IM ONCE PRN (Reason: Allergic Reaction) Qty: 2 0RF Rx Instructions: as a single dose; may repeat once duloxetine [Cymbalta] 60 mg capsule,delayed release(DR/EC) 60 mg PO HS Qty: 90 1RF lidocaine 5 % adhesive patch,medicated 1 patch topical DAILY Qty: 15 0RF Patient Comments: TAKES PRN Rx Instructions: leave on most painful area for up to 12 hrs ondansetron 4 mg tablet,disintegrating 4 mg PO Q8H PRN (Reason: nausea and vomiting) Qty: 20 0RF montelukast [Singulair] 10 mg tablet 10 mg PO DAILY Qty: 90 2RF Patient Comments: QAM rosuvastatin 40 mg tablet 40 mg PO DAILY Qty: 90 2RF fexofenadine [Vicky Allergy] 180 mg tablet 180 mg PO DAILY ropinirole 1 mg tablet 1 mg PO TID Qty: 270 1RF sucralfate [Carafate] 1 gram tablet 1 g PO BID Qty: 60 1RF Patient Comments: TAKES PRN nitroglycerin [Nitrostat] 0.4 mg tablet, sublingual 0.4 mg sublingual Q5MIN PRN (Reason: Chest Pain) Qty: 25 0RF nitrofurantoin monohyd/m-cryst [Macrobid] 100 mg capsule 100 mg PO Q12H Qty: 20 0RF Rx Instructions: must administer with a meal/food Follow-up/Referrals: Tom Paz MD [Primary Care Provider] - Time of Disposition: 01:00
[2025-03-03 01:30] VITALS: BP 125/89; PULSE 70; RESP 16; TEMP 36.9; O2SAT 93
== END 2025-03-03 05:19 | disposition home or self-care (01) ==
PROVIDERS: Emergency Provider Student in an Organized Health Care Education/Training Program; PCP Family Medicine
DX: M25.561 Pain in right knee (principal); I48.0 Paroxysmal atrial fibrillation; I10 Essential (primary) hypertension; E78.2 Mixed hyperlipidemia; G25.81 Restless legs syndrome; M79.7 Fibromyalgia; K21.9 Gastro-esophageal reflux disease without esophagitis; F41.9 Anxiety disorder, unspecified; F32.A Depression, unspecified; Z95.0 Presence of cardiac pacemaker; Z96.82 Presence of neurostimulator; Z86.16 Personal history of COVID-19; Z86.718 Personal history of other venous thrombosis and embolism; Z86.73 Personal history of transient ischemic attack (TIA), and cerebral infarction without residual deficits; Z86.2 Personal history of diseases of the blood and blood-forming organs and certain disorders involving the immune mechanism; Z79.82 Long term (current) use of aspirin; Z79.1 Long term (current) use of non-steroidal anti-inflammatories (NSAID); Z79.899 Other long term (current) drug therapy
CPT/HCPCS: 73564; 99283; A9270

== ENCOUNTER 2025-03-07 00:38 | Day surgery (SDC) | payer MEDICARE, MEDICAID, SELFPAY ==
--- NOTE | 2025-02-13 07:59 | PC.NURSE ---
Report to the Outpatient Waiting Room, entrance under the green pavilion located off [facility], at time _6:30 am on date _03/07/25 . Planned Procedure Time: _8:30 am .? Time changes happen often and if your time is changed the preop area will call you the afternoon before. - You and your visitor will be asked to self-screen and do not enter if you have any COVID symptoms. Please call surgeon if you need to reschedule. - A mask is optional within the hospital at this time. Patients may have clear liquids (water, carbonated beverages, clear teas, apple juice) until 3 hours prior to surgery( 5:30 am) with a maximum of 20 ounces. - No food from midnight until time of surgery and no smoking, or chewing tobacco (or any form of nicotine). No chewing gum, candy or mints. - Take only the following medications with a SIP of water on the morning of surgery: METOPROLOL DO NOT STOP ANY OF YOUR OTHER PRESCRIPTION MEDICATIONS PRIOR TO SURGERY EXCEPT THE FOLLOWING Hold all vitamins and supplements for 3 days per anesthesiologist. Medications to discontinue per physician ___CELECOXIB HOLD 7 DAYS PRE OP PER DR MAYBERRY ASPIRIN PER DR MAYBERRY Date to take last dose___02/27/25 Please no make-up, nail luxembourgish, hairspray, perfume, deodorant, or body powder the day of surgery.? No jewelry (including any body piercings) or valuables the day of surgery, leave them at home.? Please take a shower or bath the night before, or the morning of, surgery with an antibacterial soap.? Wear comfortable, loose fitting clothing.? Children are encouraged to wear pajamas. - Jewelry must be removed prior to entering the operating room.? Rings and piercings that are not removed may be cut off. - The hospital will not accept responsibility for valuables.? - Please leave all valuables, including medications, at home the day of surgery. If you are going home after surgery, a licensed emt driver must drive you home.? - NO public transportation without another adult if you receive anesthesia. - We recommend that an adult stay with you for 24 hours following discharge. - We also recommend that you do not drive, make important decision, drink alcoholic beverages, or take any drugs that were not prescribed by your health care provider for at least 24 hours after your discharge time. Follow any additional instructions given to you from your surgeon. VERBAL AND WRITTEN instructions given to _PATIENT and asked if any additional questions and then verbalized understanding. Patient advised to call surgeon office or pre surgery nurse liaison [phone] if any additional questions.
[2025-02-13 08:08] VITALS: BMI 29.7
[2025-02-13 09:07] VITALS: BP 117/82; PULSE 70; RESP 18; TEMP 36.1; O2SAT 97
[2025-03-07] VITALS (15 sets, daily range): BP systolic 93–127; BP diastolic 60–89; PULSE 70–80; RESP 12–22; TEMP 35.8–36.5; O2SAT 91–100
--- NOTE | ~2025-03-07 | XR_ITS ---
XR pelvis min 3V 03/08/2025 17:08 Indication: Evaluate SI joint fusion Procedure: 3 views of the pelvis Comparison: 09/30/2024 Findings: There are changes of bilateral sacroiliac joint fusion. Hardware intact. There are spinal fusion changes of the lumbar spine with multilevel laminectomy. Mild osteoarthritis of the hips. Pelvic rings intact. No acute fracture, subluxation or dislocation. Impression: 1: No acute bone or joint abnormality. Reviewed, dictated and finalized at location A. Impression: 1: No acute bone or joint abnormality.
--- NOTE | ~2025-03-07 | XR_ITS ---
EXAM: XR fluoroscopy no charge - 03/07/2025 8:30 CDT History: 59 years old Female with LEFT SACROILIAC JOINT FUSION Fluoroscopy time: 1 minute 51 seconds FINDINGS/ IMPRESSION: Multiple fluoroscopic images of sacroiliac joint fusion. Reviewed, dictated and finalized at location A.
--- OUTSIDE RECORDS SUMMARY | 2025-03-07 00:42 | XMS_ITS | Continuity of Care Document ---
Author Organization [facility] Address [address] [place] [address] [address] [place] [address] Phone Care Team Providers Care Bi Data Architect Name Role Phone Anthony Gutierrez Unavailable [...] [place], [facility] [place] [address] [place] [address] [address], [place], [place], [id number], [place] tel:[phone] [facility] No Information 0 0 Krishnasamy Anthony. [address] [facility] [address], [place], [address], [place]. tel:[phone] Office/[place]pat [place], [facility] [place] [address] [place] [address] [address], [place], [place], [id number], [place] tel:[phone] [facility] [place] No Information 0 0 Krishnasamy Anthony. [address] [facility] [place] [address], [place], [place], [facility], [place]. tel:[phone] Office/outpat ient Visit, [facility], [address] [place] [address] [address], [place], [place], [id number], [place] tel:[phone] [facility] No Information Fe-2 3-201 0 Krishnasamy Anthony. [address] [facility] [place] [address], [place], [facility], [place]. tel:[phone] [facility], [address] [place] [address] [address], [place], [place], [id number], [place] tel:[phone] [facility] No Information Jan-3 1-200 9 Krishnasamy Anthony. [facility] [address], [place], [place], [facility], [place]. tel:[phone] [facility], [address] [place] [address] [address], [place], [place], [id number], [place] tel:[phone] [facility] No Information You-2 2-200 9 Krishnasamy Anthony. [address] [place], [place] [address]ate [place] [address], [place], [facility], [place]. tel:[phone] [facility], [address] [place] [address] [address], [place], [place], [id number], [place] tel:[phone] [facility] [place] No Information May-0 8-200 9 Krishnasamy Anthony. [facility] [place] [address], [place], [facility], [place]. tel:[phone] [facility], [address], [place], [place], [id number], [place] tel:[phone] [facility] No Information Apr-2 8-200 7 Montes OD Simone. [address], [place], [facility], [place]. tel:[phone] Family History Family Member Type Diagnosis Age At Onset No Information Payers Payer name Insurance type Covered constitution party ID Authoriza tion(s) Medicare [facility] [id number] Medicaid [facility] [id number] Social History Type Description Quantity Date Captured [...]
--- OUTSIDE RECORDS SUMMARY | 2025-03-07 00:42 | XMS_ITS | Patient Health Record ---
Author Organization [facility] Address [address] [place] [address] Care Team Providers Care Clinical Program Consultant Name Role Phone Tamar Rene Unavailable [phone] Reason For Referral No Information Medications Medication SIG (Take, Route, Frequency, Duration) Notes Start Date End Date Status Rosuvastatin Calcium 20 MG Tablet Oral Active Sulfamethoxazole-Trimeth oprim 800-160 MG Tablet Oral Acti ve Promethazine HCl 25 MG Suppository Rectal Active DULoxetine HCl 30 MG Capsule Delayed Release Particles Oral Active Celecoxib 100 MG Capsule Oral Active Hydrocortisone-Acetic Acid 1-2 % Solution Otic Active DULoxetine HCl 60 MG Capsule Delayed Release Particles Oral Active Warfarin Sodium 2.5 MG Tablet Oral Active Azithromycin 250 MG Tablet Oral Active Warfarin Sodium 1 MG Tablet Oral Active Omeprazole 20 MG Capsule Delayed Release Oral Active Suprep Bowel Prep Kit 17.5-3.13-1.6 GM/177ML Solution Oral Active Meloxicam 15 MG Tablet Oral Active metroNIDAZOLE 500 MG Tablet Oral Active Diclofenac Sodium 1% Gel Transdermal Active Diphenoxylate-Atropine 2.5-0.025 MG Tablet Oral Active Ciprofloxacin HCl 500 MG Tablet Oral Active Baclofen 5 mg TABLET ORAL Active Triamcinolone Acetonide 0.50% Cream External Active Nitroglycerin 0.4 MG Tablet Sublingual Sublingual Active metroNIDAZOLE 1 % Gel External Active Montelukast Sodium 10 MG Tablet Oral Active EPINEPHrine 0.3 MG/0.3ML Solution Auto-injector Injection Activ e MUPIROCIN CALCIUM 2 % TOPICAL CREAM *Reorder from [employer] for eRx and Interaction Alerts* Active Creon 36,000-114,000- 180,000 unit Capsule Delayed Release Particles Oral *Pick strength-form from [facility] for eRX* Active Flowflex COVID-19 Ag Home Test Kit In Vitro *Reorder from [facility] for eRx and Interaction Alerts* Active Diclofenac Sodium 50 MG Tablet Delayed Release Oral Activ e predniSONE 10 MG Tablet Oral Active Omeprazole 40 MG Capsule Delayed Release Oral Active Furosemide 20 MG Tablet Oral Active Morphine Sulfate 15 MG Tablet Oral Active traMADol HCl 50 MG Tablet Oral Active Metoprolol Succinate ER 50 MG Tablet Extended Release 24 Hour Oral Active Buprenorphine 7.5 mcg/hour Patch Weekly Transdermal *Pick strength-form from [facility] for eRX* Active Colestipol HCl 1 GM Tablet Oral Active Azelastine HCl 137 MCG/SPRAY Solution Nasal Active Simponi 50 mg/0.5 mL Solution Auto-injector Subcutaneous Activ e predniSONE 20 MG Tablet Oral Active Ibuprofen 600 MG Tablet Oral Active Warfarin Sodium 3 MG Tablet Oral Active ENBREL SURECLICK 50 MG/ML (1 ML) SUBCUTANEOUS PEN INJECTOR *Reorder from [facility] for eRx and Interaction Alerts* Active Metoprolol Tartrate 50 MG Tablet Oral Active Doxycycline Hyclate 100 MG Capsule Oral Active ProAir HFA 108 (90 Base) MCG/ACT Aerosol Solution Inhalation Act antionette hydrOXYzine HCl 25 MG Tablet Oral Active AZELASTINE 205.5 MCG (0.15 %) NASAL SPRAY *Reorder from [facility] for eRx and Interaction Alerts* Active Buprenorphine 5 mcg/hour Patch Weekly Transdermal *Pick strength-form from [facility] for eRX* Active rOPINIRole HCl 1 MG Tablet Oral Active Methocarbamol 750 MG Tablet Oral Active Metoprolol Succinate ER 25 MG Tablet Extended Release 24 Hour Oral Active tiZANidine HCl 2 MG Tablet Oral Active Enoxaparin Sodium 40 MG/0.4ML Solution Subcutaneous Active Fluorouracil 5 % Cream External Active Ciprofloxacin HCl 0.30% Solution Ophthalmic Active Sucralfate 1 GM Tablet Oral Active Pantoprazole Sodium 40 MG Tablet Delayed Release Oral Active buPROPion HCl ER (XL) 150 MG Tablet Extended Release 24 Hour Oral Active levoFLOXacin 500 MG Tablet Oral Active Paxlovid (300/100) 20 x 150 MG & 10 x 100MG Tablet Therapy Pack Oral *Reorder from [facility] for eRx and Interaction Alerts* Active methylPREDNISolone 4 MG Tablet Therapy Pack Oral Active Methotrexate 2.5 MG Tablet Oral Active predniSONE 5 MG Tablet Oral Active Nitrofurantoin Monohyd Macro 100 MG Capsule Oral Active Nystatin 708802 UNIT/GM Cream External Active Folic Acid 1 MG Tablet Oral Active Plan Of Treatment No Information Insurance Providers Payer Name Payer Address Payer Phone Subscriber Number Group Number Insured Name Patient Relationship to Insured Coverage Start Date Coverage End Date Medicare-I l Medicare [address] [place] [phone] [id number] CHASIDY CANTU Self - patient is the insured Medicaid-I l Medicaid [address] [address] [place] [phone] [id number] CHASIDY CANTU Self - patient is the insured
--- OUTSIDE RECORDS SUMMARY | 2025-03-07 00:42 | XMS_ITS ---
[facility] Organization [facility] Address [address] [place], [place] [id number] Care Team Providers Care Credit Specialist Name Role Phone CATHI SILVA Unavailable [phone] Tom Paz Unavailable Unavailable REASON FOR VISIT *Callus Care Encounters Encounter Location Date Provider Diagnosis [facility] [address] [place] [place], [place] [id number] 10/24/2024 CATHI SILVA Plan Of Treatment No Information Progress Notes * ALONDRANaey ALEJANDREDOB:1965 ( 59 yo F)Acc No.[id number]:10/24/2024 Patient: Naye RAI Provider: Sammi Silva DPM :1965 A ge:59 Y S ex:Female Date:10/24/2024 Address:[address] [place] [address], [facility] [address], [place] Subjective: * Chief Complaints: * 1 . *Callus Care. * Medical History: Objective: * Vitals: Assessment: Plan: * Treatment: * Billing Information: * Visit Code: * Procedure Codes: * Electronic signature of CATHI SILVA DPM on 03/07/2025 at 12:42 AM CDT Sign off status: Pending * Provider: Sammi Silva DPM Date: 0 10/24/2024 Generated for Printi ng/Faxing/eTransmitting on: 0 03/07/2025 12:42 AM CDT
--- OUTSIDE RECORDS SUMMARY | 2025-03-07 00:43 | XMS_ITS | Clinical Summary ---
Author Organization [facility] Address [address] [place] [address] Care Team Providers Care Sports Writer Name Role Phone Tom Paz MD Primary Care Provider [phone] Allergies Active Allergy Reactions Criticality Noted Date [...] blisters Etanercept Swelling Low 12/09/2023 Embrel Gum Mmtrfs-Wswkmy-Wwec-Alcoho l Rash Low 12/09/2023 Mastisol - blisters [...] this topic Medical Devices Implanted Type Area Kitchen Work Supervisor Device Identifier Shelf Expiration Date Model / Serial / Lot Tyrx Antibacterial Envelope Med [id number] - [id number] Implanted:Qty: 1 on 12/24/2023 at [facility] Mesh Left: Chest MEDTRONIC- CARD RHYTHM MGMT 10/01/2024 [id number] / / [id number] Neuro Stimulator Neuro Stimulator ContaAzul SC-1200 / / Description:leads: SC- Need lead numbers Dc Ppm Gen Implanted:Qty: 1 on 12/24/2023 by Burton Forbes MD at [facility] N/A: Chest Wall [id number] / [id number] / Explanted Type Area Kitchen Work Supervisor Device Identifier Shelf Expiration Date Model / Serial / Lot Dc Eluna 8 Ppm Gen Explanted:Qty: 1 on 12/24/2023 by Burton Forbes MD at [facility] Pacemaker Chest Wall [employer] ELUNA 8 KRISTY / [id number] / Description:Implant date: Per [employer] Rep - NOT MRI safe (extra cap lead -ABANDONED LEAD - NO MRI -lizandro 08/14/23 Insurance MEDICARE PART A AND B [employer] [place] [id number] [place] [address] MEDICARE PART A AND B [address] [place] [address] RX [employer] RX Member Subscriber Plan / Payer (Ef fective 2023-Present) Name:Naye Hart Relation to Subscriber:Self Name:Naye Hart Subscriber ID:Not on file Payer ID:Not on file Group ID:[id number] Type:RX Commercial Address: [address] Advance Directives For more information, please contact: [phone] Documents on File Type Date Recorded Patient Cylinder Handler Expl anation Advance Directive POA 12/24/2023 8:33 AM Ad valenzuela Directive POA * Full Code (Latest Code Status on File) Date Activated Date Inactivated Comments 12/24/2023 3:32 PM 12/25/2023 12:17 PM Care Teams Sports Writer Relationship Specialty Start Date End Date Tom Paz MD [address] [place] [address] PCP - General Family Practice 01/28/22
--- OUTSIDE RECORDS SUMMARY | 2025-03-07 00:43 | XMS_ITS | Clinical Summary ---
Author Organization [facility] al Address [address] [place] [address] Care Team Providers Care Presser Cotton Ginning Name Role Phone Tom Paz MD Primary Care Provider [phone] Tab Taylor MD Unavailable [phone] Favian Caceres MD Unavailable [phone] Allergies Active Allergy Reactions Criticality Noted Date [...] - blisters Etanercept Itching Low 02/24/2022 Gum Byirvo-Ltcikl-Bvoe-Alcoho l Blisters,Rash High 12/17/2021 Mastisol - blisters [...] QuantGold Assessment & Plan (07/28/2024 11:19 AM CATTLE BROKER): Monitor routine labs while on immunosuppressive medications. [...] QuantGold Assessment & Plan (09/22/2023 12:26 PM CATTLE BROKER): Monitor routine labs while on immunosuppressive medications. [...] QuantGold Assessment & Plan (09/11/2022 12:48 PM CATTLE BROKER): Monitor routine labs while on immunosuppressive medications. Recent 2/ labs stable. 06/2020: Neg Hep B/C 03/2021: Neg QuantGold Assessment & Plan (07/01/2022 9:25 AM CATTLE BROKER): Monitor routine labs while on immunosuppressive medications. [...] QuantGold Assessment & Plan (08/19/2021 2:31 PM CATTLE BROKER): Monitor routine labs while on immunosuppressive medications. [...] Hospitalized for total of 8 days, at [facility] and [facility]. Had CT brain/neck angio that were unremarkable. [...] Hospitalized for total of 8 days, at [facility] and then [facility]. Had CT brain/neck angio that [...] 07/24/2020 Assessment & Plan (07/24/2020 12:34 PM CATTLE BROKER): Her greatest pain complaint at this time [...] 07/24/2020 Assessment & Plan (07/01/2022 2:12 PM CATTLE BROKER): Self weaned off Cymbalta 2 days ago [...] exercise. Assessment & Plan (08/27/2020 2:41 PM CATTLE BROKER): Fatigue with sensation of pain all over [...] exercise. Assessment & Plan (07/24/2020 12:36 PM CATTLE BROKER): Fatigue with sensation of pain all over [...] PT. Assessment & Plan (08/28/2020 12:26 PM CATTLE BROKER): Multifocal OA (hands and hips) per recent xrays. Continue Tylenol 500 mg qid. Continue PT. Assessment & Plan (07/24/2020 12:41 PM CATTLE BROKER): Multifocal OA (hands and hips) per recent [...] increase blood glucose, glaucoma and osteopenia with residential use of steroids. Labs today. To return in 6 weeks for re-evaluation - this can be moved out to 3 months if joints remain stable. Assessment & Plan (07/28/2024 11:22 AM CATTLE BROKER): Off MTX (oral ulcers/hair thinning). 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 She was strongly [...] needed. Assessment & Plan (09/22/2023 12:32 PM CATTLE BROKER): A 09/2022 repeat left hand/wrist US demonstrated [...] needed. Assessment & Plan (09/11/2022 12:48 PM CATTLE BROKER): Continued 15mg MTX weekly and monthly Simponi [...] Chan. Assessment & Plan (08/06/2022 9:00 PM CATTLE BROKER): Has continued 15mg MTX weekly as well [...] we have no access to them through [employer]. She already had an OV scheduled for 09/02 - will re-evaluate joints at that time and consider repeat hand US if synovitis is absent/minimal on exam but she is still noting pain -to evaluate for underlying inflammation. She may require change in biologic medication. Assessment & Plan (07/01/2022 2:09 PM CATTLE BROKER): CDAI 37, high Off Enbrel due to ISRs. Continued MTX and Simponi injections. Noted improvement after prednisone taper at last visit. Joints were feeling good until a few weeks ago when she returned from a trip to [place] an self weaned off Cymbalta. Now with [...] She is to follow up with her banbury machine operator soon due to low BP following [...] increase blood glucose, glaucoma and osteopenia with residential use of steroids. Continue 15mg MTX weekly [...] Chan. Assessment & Plan (08/19/2021 9:00 PM CATTLE BROKER): CDAI 25. On 15mg MTX weekly but has only taken 3 Enbrel injections so far. Just completed a medrol dose pack from her banbury machine operator due to inflammation around her heart [...] incontinence. Has followed up with PCP and banbury machine operator - started Ubrelvy for JACKSON and banbury machine operator is to adjust her pacemaker on [...] pen with her during her trip to [place] (leaves and returns around the ). A letter was provided for [facility] to allow Humira to be brought [...] needed. Assessment & Plan (08/28/2020 12:26 PM CATTLE BROKER): Our workup showed an JANNET 1:160 but [...] needed. Assessment & Plan (07/24/2020 12:33 PM CATTLE BROKER): 54yoF referred for evaluation due to +JANNET [...] reassess. Assessment & Plan (07/06/2020 4:49 PM CATTLE BROKER): 54yoF referred for evaluation due to +JANNET [...] (12/13/2019): Added automatically from request for surgery [id number] SVT (supraventricular tachycardia) 12/13/2019 Overview (12/13/2019): Added automatically from request for surgery [id number] A-fib 11/24/2019 Overview (11/24/2019): Added automatically from request for surgery [id number] Laryngopharyngeal reflux (LPR) 08/04/2018 Assessment & Plan (10/20/2018 12:26 PM CDT): No longer taking the omeprazole and ranitidine as prescribed. Patient is no longer experiencing any coughing, sinonasal or throat symptoms. Assessment & Plan (08/04/2018 1:17 PM CATTLE BROKER): Add omeprazole 40 mg Q morning 30 [...] resume. Assessment & Plan (08/04/2018 1:11 PM CATTLE BROKER): Patient's chronic cough is most likely secondary [...] reactive airway disease contributing to her cough. custodial current use of anticoagulant therapy 1 08/28/2014 Deep vein thrombosis (DVT) 06/27/2015 Hyperthyroidism 08/31/2012 Chronic adrenal insufficiency 08/30/2012 Encounters Date Type Department Care Team Description 02/24/2025 8:09 AM CDT Anesthesia Event [facility] [address] [place] [address] Arely Hansen MD Gardner, Kari Elizabeth, NP 02/24/2025 8:05 AM CDT - 02/24/2025 8:50 AM CDT Surgery [facility] [address] [place] [address] Roge Dowell MD DRUG INDUCED SLEEP ENDOSCOPY EVAL FLEX DIAG 02/24/2025 5:56 AM CDT - 02/24/2025 9:00 AM CDT Hospital Encounter [facility] [address] [place] [address] Roge Dowell MD Obstructive sleep apnea (Primary Dx) Discharge Disposition: Discharge to home or self care 02/06/2025 11:00 AM CDT - 02/06/2025 11:59 PM CDT Hospital Encounter [facility] [address] [place] [address] Dougie Lord MD Right knee pain, unspecified chronicity (Primary Dx) Discharge Disposition: Discharge to home or self care 01/26/2025 8:20 AM CDT Office Visit [facility] [address] [place] [address] Medical Office Building [address] [place] [phone] Roge Dowell MD CELINA (obstructive sleep apnea) (Primary Dx); Obstructive sleep apnea (adult) (pediatric) 01/24/2025 Results Follow-Up [facility] [address] [place] [address] Claudia Cristobal PA CBC with auto differential, Comprehensive metabolic panel 01/23/2025 10:30 AM CDT Office Visit [facility] [address] [place] [address] Claudia Cristobal PA Seronegative rheumatoid arthritis (HCC) (Primary Dx); Encounter for long-term (current) use of high-risk medication 01/23/2025 Documentation [facility] [address] [facility] 12th [place] [address] [place] [phone] Carlie Patricia 01/19/2025 Telephone [facility] [address] [place] [address] Dougie Lord MD POST CALL 01/13/2025 Orders Only [facility] [address] [place], [place] [address] Dougie Lord MD 01/12/2025 Telephone [facility] [address] [place], [place] [address] Dougie Lord MD Post Procedure Pain 01/11/2025 9:36 AM CDT - 01/11/2025 11:59 PM CDT Hospital Encounter [facility] [address] [place] [address] Transient ischemic attack (TIA); Cerebrovascular disease, unspecified; Unspecified visual loss; Presence of cardiac pacemaker Discharge Disposition: Discharge to home or self care 01/11/2025 9:35 AM CDT - 01/11/2025 11:59 PM CDT Hospital Encounter [facility] [address] [place] [address] Encounter for imaging to screen for metal prior to magnetic resonance imaging (MRI) Discharge Disposition: Discharge to home or self care 01/11/2025 8:47 AM CDT - 01/11/2025 11:59 PM CDT Hospital Encounter [facility] [address] [place] [address] Unspecified injury of right shoulder and upper arm, initial encounter Discharge Disposition: Discharge to home or self care 01/11/2025 Documentation Cardiology Sofiya Rosa NP 01/06/2025 10:22 AM CDT - 01/06/2025 11:59 PM CDT Hospital Encounter [facility] [address] [place] [address] Dougie Lord MD Right knee pain, unspecified chronicity Discharge Disposition: Discharge to home or self care 01/05/2025 Telephone [facility] [address] [facility] [address] [place] [phone] Dougie Lord MD Pre-Surgical Call 01/05/2025 Telephone [facility] [address] [facility] [address] [place] [phone] Luis Hobbs RMA Med Refill (HC 2.5% Cr) 12/08/2024 7:04 AM CDT - 12/08/2024 11:59 PM CDT Hospital Encounter [facility] [address] [place] [address] Trey Arroyo MD Abdominal pain; Nausea and vomiting, unspecified vomiting type Discharge Disposition: Discharge to home or self care 12/08/2024 Telephone [facility] [address] [facility] 12th [place] [address] [place] [address] Carlie Patricia Prior Auth 12/08/2024 Orders Only [facility] [address] [place] [address] Trey Arroyo MD 12/08/2024 Results Follow-Up [facility] [address] [place] [address] Abdomen Pelvis W Contrast 12/06/2024 E-Visit [facility] [address] [place] [address] Claudia Cristobal PA Ultrasound 12/05/2024 Orders Only [facility] [address] [place] [address] Claudia Cristobal PA from Last [...] drink = 0.6 oz pur e alcohol) [facility] Utilities Answer Date Recorded In the past 12 months has e [employer], gas, oil, or water [employer] threatened to shut off services in your home? Yes 02/11/2024 Social Connection and Isolation Panel Answer Date Recorded In a typical week, how many times do you talk on the phone with family, friends, or neighbors? Once a week 02/11/2024 How often do you get togethe r with friends or relatives? Once a week 02/11/2024 How often do you attend chur ch or mormonism services? More than 4 times per year 02/11/2024 Do you belong to any clubs o r organizations such as sikh groups, unions, fraternal or athletic groups, or [...] place to sleep or slept in a nursing home (including now)? No 11/02/2023 Housing Stability [...] any time in the past 12 m [facility], were you homeless or living in a nursing home (including now)? No 02/11/2024 Personal Safety Answer Date Recorded Have you ever been in or are you currently in a harmful physical or emotional relationship or is someone making you feel afraid or unsafe? Denies 02/24/2025 Comments No Sex and Gender Information Value Date Recorded Sex Assigned at Not on file Legal Sex Female 12:21 AM CATTLE BROKER Gender Identity Not on file Sexual Orientation [...] home safety. Medical Devices Implanted Type Area Rail Car Loader Device Identifier Shelf Expiration Date Model / Serial / Lot Ivc Filter- 7 Implanted:Qty: 1 on 06/09/2007 by Tam Fraser MD IVC Filter N/A: Vena Cava Lead-Spinal Cord Stimulator- 018 Implanted:2017 by Taran Ramirez MD (Quantity not on file) Lead Back [employer] SC-2158- 50 / / Biotronik Ra Lead ([id number])- 019 Implanted:2018 (Quantity not on file) Lead Chest Biotronik SOLIA S [id number] / [id number] / Lead (Rv)-05/23/2021 Implanted:2020 (Quantity not on file) Lead Heart [employer]ot[employer]ik JUAN MANUEL S 53 377 177 / [id number] / Biotronik Paceomaker Ariana Anne Gamez-T-12/24/2023 Implanted:2023 (Quantity not on file) Pacemaker Chest Wall [employer]ik [id number] / [id number] / Spinal Cord Stimulator- 018 Implanted:Qty: 1 on 08/20/2017 by Taran Ramirez MD Spinal Cord Stimulator N/A: Back [employer] SC-1200 / [id number] / Spinal Cord Stimulator Lead-08/20/2017 Implanted:2017 by Taran Ramirez MD (Quantity not on file) Spinal Cord Stimulator Back [employer] Neuro- [id number] / / Hardware Thoracic-L umbar Spine Loop Recorder Chest Wall Chris V[employer] System Closure Repair Femoral Artery Suture Mediated Perclose Prostyle 52315-93 - [id number] Implanted:Qty: 1 on 02/09/2024 by Morgan Roy MD at [facility] 11/16/2025 [id number] / / [id number] [employer] Percutaneous Transcatheter Amplatzer Amulet 18mm 1-[id number] - [id number] Implanted:Qty: 1 on 02/09/2024 by Morgan Roy MD at [facility] 09/17/2027 9-[id number] 07-018 / / [id number] Chris V[employer] System Closure Repair Femoral Artery Suture Mediated Perclose Prostyle 75317-46 - [id number] Implanted:Qty: 1 on 02/09/2024 by Morgan Roy MD at [facility] 11/16/2025 [id number] / / [id number] [employer] Sling Urinary Incontinence Female Stress Short Desara Blue Sis-Ds01bs - [id number] Implanted:Qty: 1 on 06/28/2024 by Shankar Mak MD at [facility] N/A: Urethra [employer] 01/04/2027 SIS-DS01 BS / / [id number] Explanted Type Area Rail Car Loader Device Identifier Shelf Expiration Date Model / Serial / Lot Biotronik Rv Lead ([id number])-07/04 Implanted:Qty: 1 on 07/04/2019 Explanted:Qty: 1 Lead Chest Biotronik [id number] / / Description:This lead was re placed and left behind per patient on 05/23/21 Biotronik Pacemaker ([id number])-07/04 Implanted:Qty: 1 on 07/04/2019 Explanted:Qty: 1 on 12/24/2023 Pacemaker Left: Chest Biotronik ELUNA 8 KRISTY CARBAJAL / [id number] / [id number] Procedures Procedure Name Priority Date/Time Associated Diagnosis [...] 3:20 PM CDT COLONOSCOPY 08/02/2024 1:43 PM CATTLE BROKER HEPATITIS C ANTIBODY Routine 07/06/2020 2:58 PM CATTLE BROKER Polyarthralgia Encounter for screening for other viral diseases from Last 3 Months or Most Recently Relevant to Health Maintenance Results * (ABNORMAL) CBC with auto differential (01/23/2025 11:04 AM CDT) Pathologist [facility] WBC 4.2 3.8 - 10.8 Thousand/u L [...] BLOOD ORDER IDRIS Final Result [facility] [address] [facility] [place] [address] * Comprehensive metabolic panel (01/23/2025 11:04 AM [...] BLOOD ORDER IDRIS Final Result [facility] [address] [facility] [place] [address] * MRI Shoulder Right WO Contrast (01/11/2025 [...] Resu lt * Imaging Genicular RFA Right (85387) (01/06/2025 11:33 AM CDT) Narrative RAD_PACS_[facility] - [...] - Final * Colonoscopy (08/02/2024 1:43 PM CATTLE BROKER) Anatomical Region Laterality Modality Other Narrative Procedure Note Trey Arroyo MD - 08/02/2024 1:43 PM [facility] Patient Name: Naye Hart Procedure Date: 08/02/2024 1:43 PM Date of : 1965 Admit Type: Outpatient Age: 58 Gender: Female Attending MD: Trey Arroyo M.D. Room: [facility] ENDOSCOPY ROOM 8 Note Status: Finalized [...] The scope was passed under direct vision.The [id number] endoscope was introduced through the anus and advanced to the terminal ileum. The colonoscopy was performed without difficulty. The patient tolerated the procedure well. The qualityof the bowel preparation was evaluated using the BBPS (Montrose Bowel Preparation Scale) with scores of:Right Colon [...] [facility]: [phone] After hours, evening, nights, weekends and holidays- Please call the hospital retort or condenser press operator at and ask for the GI fellow attendant [facility]. Attending Participation: I was present and participated during the entire procedure, including non-patrick portions. Electronically signed by Trey Arroyo MD Trey Arroyo M.D. 08/02/2024 2:08:56 PM . Number of Addenda: 0 Note Initiated On: 08/02/2024 1:43 PM Trey Arroyo MD ENDOSCOPY PROCEDURES Final Result * Hepatitis C antibody (07/06/2020 2:58 PM CATTLE BROKER) Hep C Ab NON-REACTI VE NON-REACT GIA [facility] SIGNAL TO CUT-OFF 0.02 <1.00 [facility] Comment: HCV antibody was non-reactive. There is no laboratory evidence of HCV infection. In most cases, no further action is required. However, if recent HCV exposure is suspected, a test for HCV RNA (test code 80425) is suggested. For additional information please refer to http://education.[employer].iOpener/faq/OYQ11s9 (This link is being provided for informational/ educational purposes only.) Blood specimen (specimen) 07/06/2020 2:58 PM CATTLE BROKER 07/06/2020 3:00 PM CATTLE BROKER Narrative [facility] - 07/11/2020 9:33 PM CATTLE BROKER PATIENT UNABLE TO VOID; ADVISED TO RETURN FOR COLLECTION. us [facility] MICROBIOLOGY - GENERA L ORDERABLES Final Result [facility] [address] [place] [address] from Last 3 Months or Most Recently Relevant to Health Maintenance Insurance MEDICARE [facility] MEDICARE [facility] MEDICARE [facility] [address] [place] [address] MED[address] [place] [address] MEDICARE [facility] Advance Directives For more information, please contact: [phone] * Full Code (Latest Code Status on [...] 10:10 AM 02/24/2022 4:09 PM Care Teams Presser Cotton Ginning Relationship Specialty Start Date End Date Tom Paz MD PCP - General 09/09/16 Tab Taylor MD [address] [place] [address] Consulting Physician Cardiology 01/03/20 Favian Caceres MD [address] [place] [address] Consulting Physician Rheumatology 08/28/23
--- OUTSIDE RECORDS SUMMARY | 2025-03-07 00:43 | XMS_ITS | Patient Health Record ---
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) Active confirmed Problem Localized, primary osteoarthritis of the pelvic region and thigh (992790914) Unilateral primary osteoarthritis, left hip (M16.12) Active confirmed Problem Solitary sacroiliitis (529444179) Sacroiliitis, not elsewhere classified (M46.1) Active confirmed Problem Radiculopathy, cervical region (M54.12) Active confirmed Problem Cervical radiculopathy (12498013) Radiculopathy, cervicothoracic region (M54.13) Active confirmed Problem Lumbosacral radiculopathy (8807161) Radiculopathy, lumbosacral region (M54.17) Active confirmed Plan Of Treatment No Information Insurance Providers Payer Name Payer Address Payer Phone Subscriber Number Group Number Insured Name Patient Relationship to Insured Coverage Start Date Coverage End Date MEDICARE SERVICES [address] [address] [place] [address] [id number] Naye Hart Self - patient is the insured 0 IPA [address] [address] [place] [address] [id number] Naye Hart Self - patient [...]
--- OUTSIDE RECORDS SUMMARY | 2025-03-07 00:43 | XMS_ITS | Encounter Summary ---
Author Organization [facility] Address [address] [place] [address] Phone Care Team Providers Care School Social Worker Name Role Phone Tom Paz MD Primary Care Provider [phone] Tab Taylor MD Unavailable [phone] Favian Caceres MD Unavailable [phone] Encounter Details Date Type Department Care Team (Latest Contact Info) Description 01/24/2025 Results Follow-Up [facility] [address] [place] [address] Claudia Cristobal, SIMON [address] [place] [address] CBC with auto differential, Comprehensive metabolic panel Social History Tobacco Use Types Packs/Day Years Used Date Smoking Tobacco: Never Passive Smoke Exposure: Past Smokeless Tobacco: Never Alcohol Use Standard Drinks/Week Comments No 0 (1 standard drink = 0.6 oz pur e alcohol) [facility] Utilities Answer Date Recorded In the past 12 months has [employer] electric, gas, oil, or water company threatened [...] any clubs o r organizations such as quaker groups, unions, fraternal or athletic groups, or [...] time in the past [address] [facility], were you homeless or living [...] on file Legal Sex Female 12:21 AM PROPERTY ASSESSMENT MONITOR Gender Identity Not on file Sexual Orientation Not on file documented as of this encounter Plan of Treatment Not on file documented as of this encounter Goals Goal Patient Goal Type Associated Problems Recent Progress Patient-Stated? Author CCM Chronic Pain Care Plan Chronic Care Management No Hlai Brewer RN Note: Problem: Chronic Pain Goals: [...] on filedocumented in this encounter Care Teams School Social Worker Relationship Specialty Start Date End Date Tom Paz MD PCP - General 09/09/16 Tab Taylor MD [address] [place] [address] Consulting Physician Cardiology 01/03/20 Favian Caceres MD [address] [place] [address] Consulting Physician Rheumatology 08/28/23 documented as of this encounter
--- OUTSIDE RECORDS SUMMARY | 2025-03-07 00:43 | XMS_ITS | Patient Health Record ---
Author Organization [facility] Address [address] [place], [place] [address] Care Team Providers Care Parachute Folder Name Role Phone Jackson BRYANT, Tom Primary Care Provider [phone] Cecilia Nicole Unavailable [phone] ALLERGIES Allergen (clinical drug ingredient) Drug/Non Drug [...] osteoarthritis of right knee (M17.11) Active confirmed 340070909657924 Problem Closed nondisplaced fracture of acromial end of left clavicle, initial encounter (S42.035A) Active confirmed 4908949 Problem Closed nondisplaced fracture of acromial end of left clavicle with routine healing, subsequent encounter (S42.035D) Active confirmed 2788121 Problem Right hip pain (M25.551) Active confirmed Right hip pain (151932078311154) Problem Left hip pain (M25.552) Active confirmed Arthralgia of t he pelvic region and thigh (765665041) Problem Primary localized osteoarthritis of right knee (M17.11) Active confirmed Primary osteoarthritis (078109723) Problem Pes anserine bursitis (M70.50) Active confirmed 840162257 PLAN OF TREATMENT Pending Test Test Name Order Date X ray : Hip, left, 2 02/24/2018 X ray : Hip, right, 2 02/24/2018 X ray : Knee, right 3 views 11/30/2017 Insurance Providers Payer Name Payer Address Payer Phone Subscriber Number Group Number Insured Name Patient Relationship to Insured Coverage Start Date Coverage End Date Medicare Services [address] [address] [place] [address] [id number] Naye Hart Self - patient is the insured 0 Medicaid [address] [place] [id number] Naye Hart Self - patient is the [...]
--- OUTSIDE RECORDS SUMMARY | 2025-03-07 00:43 | XMS_ITS | Continuity of Care Document ---
Author Organization [facility] Address [address] [facility] [address] [place] [address] Phone Care Team Providers Care Physicist Astrophysics Name Role Phone Nayely OD OD, Denise [...] EST REFRACTION Medicare OFFICE/OUTPATIENT VISIT, EST REFRACTION [facility] OFFICE/OUTPATIENT VISIT, EST OFFICE/OUTPATIENT VISIT, EST REFRACTION [facility] OFFICE/OUTPATIENT VISIT, EST REFRACTION [...] OFFICE/OUTPA TIENT VISIT, EST [facility], [address] [facility] [facility] [address], [place], [place], [id number], [place] tel:[phone] [facility] flash of light OS (chief complaint) Age-related nuclear cataract, bilateralTear film insufficiency of bilateral lacrimal glandsOther vitreous opacities, bilateral Aug-0 5 Derheimer OD Denise. [address] [facility], [address], [place], [place], [id number], [place]. tel:[phone] Referring Provider: Tom Sapp, [address], [place], [address]. tel:[phone] OFFICE/OUTPA TIENT VISIT, EST [facility], [address] [place] [address], [id number], [place] tel:[phone] O[facility] Pain OS (chief complaint) Left eye painAge-relat ed nuclear cataract, bilateralOthe r vitreous opacities, bilateralTear film insufficiency of bilateral lacrimal glands Apr-0 4-202 4 Krishnasamy Anthony. [address], [address], [place], [place], [id number], [place]. tel:[phone] Referring Provider: Tom Sapp, [address], [place], [address]. tel:[phone] OFFICE/OUTPA TIENT VISIT, EST [facility], [address] [place] [address], [id number], [place] tel:[phone] [facility] blurry vision (chief complaint) Age-related nuclear cataract, bilateralTear film insufficiency of bilateral lacrimal glandsOther vitreous opacities, bilateralDipl opiaHypermetr opia, bilateral Oct-2 4-202 3 Krishnasamy Anthony. [address], [address], [place], [place], [id number], [place]. tel:[phone] Referring Provider: Tom Sapp, [address], [place], [address]. tel:[phone] OFFICE/OUTPA TIENT VISIT, EST [facility], [address] [place] [address], [id number], [place] tel:[phone] [facility] blurry [place] (chief complaint) Tear film insufficiency of bilateral lacrimal glandsOther vitreous opacities, bilateralAge- related nuclear cataract, bilateralDipl opiaHypermetr opia, bilateral Mar-1 0-202 2 Krishnasamy Anthony. [address], [address], [place], [place], [id number], [place]. tel:[phone] Referring Provider: Tom Sapp, [address], [place], [address]. tel:[phone] OFFICE/OUTPA TIENT VISIT, EST [facility], [address] [place] [address], [id number], [place] tel:[phone] [facility] shingles (chief complaint) Herpes zoster without complicationT ear film insufficiency of bilateral lacrimal glands Apr- 1 Krishnasamy Anthony. [address], [place], [place], [id number], [place]. tel:[phone] Referring Provider: Tom Sapp, [address], [place], [address]. tel:[phone] OFFICE/OUTPA TIENT VISIT, EST [facility], [address] [place] [address], [id number], [place] tel:[phone] [facility] blurry (chief complaint) DiplopiaAge-r elated nuclear cataract, bilateralTear film insufficiency of bilateral lacrimal glandsOther vitreous opacities, bilateralHype rmetropia, bilateral Nov- 9 Krishnasamy Anthony. [address], [address], [place], [place], [id number], [place]. tel:[phone] Referring Provider: Anthony Gutierrez, [address], [place], [address]. tel:[phone] OFFICE/OUTPA TIENT VISIT, EST [facility], [address] [place] [address], [id number], [place] tel:[phone] [facility] blurry vision (chief complaint) Tear film insufficiency of bilateral lacrimal glandsOther vitreous opacities, bilateralDipl opiaHypermetr opia of both eyes Oct-3 0- 8 Krishnasamy Anthony. [address], [address], [place], [place], [id number], [place]. tel:[phone] Referring Provider: Anthony Gutierrez, [address], [place], [address]. tel:[phone] OFFICE/OUTPA TIENT VISIT, EST [facility], [address] [place] [address], [id number], [place] tel:[phone] [facility] blurry vision (chief complaint) dry eyes (chief complaint) DiplopiaOther vitreous opacities, bilateralTear film insufficiency of bilateral lacrimal glandsHyperme tropia of both eyes Dec-2 7 7 Krishnasamy Anthony. [address], [address], [place], [place], [id number], [place]. tel:[phone] Referring Provider: Anthony Gutierrez, [address], [address]. tel:[phone] OFFICE/OUTPA TIENT VISIT, EST [facility], [address] [place] [address], [id number], tel:[phone] OPH CON[facility]ULT [facility] blurry vision (chief complaint) Reflex sympathetic dystrophy, unspecifiedTe ar film insufficiency , unspecifiedHy permetropia of both eyesOther vitreous opacities, bilateralDipl opia Oct-0 5-201 6 Krishnasamy Anthony. [address], [address], [place], [id number], [place]. tel:[phone] Referring Provider: Anthony Gutierrez, [address], [address]. tel:[phone] OFFICE/OUTPA TIENT VISIT, NEW [facility], [address] [place] [address], [id number], [place] tel:[phone] Oph Consult [facility] blurry vision (chief complaint) Hypermetropia Tear film insufficiency , unspecifiedOt her vitreous opacitiesDipl opiaReflex sympathetic dystrophy, unspecified Sep-2 8-201 5 Krishnasamy Anthony. [address], [address], [id number], [place]. tel:[phone] Referring Provider: Anthony Gutierrez, [address], [place], [address]. tel:[phone] OFFICE/OUTPA TIENT VISIT, EST [facility], [address] [place] [address], [place], [place], [id number], [place] tel:[phone] [facility] Office Tear film insufficiency , unspecifiedRe flex sympathetic dystrophy, unspecifiedOt her vitreous opacitiesHype rmetropiaDipl opia Feb- 4 Krishmargaret Anthony. [address], [address], [place], [place], [id number], [place]. tel:[phone] Referring Provider: Anthony Gutierrez, [address], [place], [address]. tel:[phone] OFFICE/OUTPA TIENT VISIT, EST [facility], [address] [place] [address], [place], [place], [id number], tel:[phone] [facility] Office Other vitreous opacitiesTear film insufficiency , unspecifiedDi plopiaHyperme tropia Mar- 3 Krishnasnina Anthony. [address], [address], [place], [place], [address], [place]. tel:[phone] Referring Provider: Anthony Gutierrez, [address], [place], [address]. tel:[phone] OFFICE/OUTPA TIENT VISIT, EST [facility], [address] [place] [address], [id number], [place] tel:[phone] O[facility] Tear film insufficiency , unspecifiedRe flex sympathetic dystrophy, unspecifiedDi plopiaHyperme tropia Sep- 3 Krishnasnina Anthony. [address], [address], [place], [place], [id number], [place]. tel:[phone] Referring Provider: Anthony Gutierrez [address], [place], [address]. tel:[phone] OFFICE/OUTPA TIENT VISIT, EST [facility], [address], [id number], tel:[phone] OPH CONSULT [facility] Tear film insufficiency , unspecifiedDi plopia 2 Brenda Cruz. [address], [address], [address], . tel:[phone] Referring Provider: Anthony Gutierrez, [address], [place], [address]. tel:[phone] OFFICE/OUTPA TIENT VISIT, NEW [facility], [address] [place] [address], [place], [place], [id number], tel:[phone] OPH CONS[facility] DiplopiaHeada cheHypermetro tierra 1 Brenda Cruz. [address], [place], [place], [address], . tel:[phone] Family History Family Member Type Diagnosis Age At Onset Son Problem (finding) Lazy eye Payers Payer name Insurance type Covered green party ID Authorjosea tirin(s) [place] [id number] [place] [id number] Social History Type Description Quantity Date Captured [...] D&N. Pt saw Dr Nai Sotelo at [facility] for prism. Pt did not update [...] +1.75+0.75x 080. Patient will see Oscarnahun Richardson (stringer machine tender) @ [facility] for prisms/glasses. Related to Headaches Hyperopia, OU [...] +1.75+0.75x 082. Patient will see Smita Richardson (stringer machine tender) @ [facility] 12/24/2010 for motility exam and measurements [...]
--- OUTSIDE RECORDS SUMMARY | 2025-03-07 00:43 | XMS_ITS ---
Author Organization [facility] Address [address] [place], [place] [address] Care Team Providers Care Multimedia Programmer Name Role Phone CATHI SILVA Unavailable [phone] Tom Paz Unavailable Unavailable CATHI BURNS Unavailable [phone] REASON FOR VISIT possible stress fracture Encounters Encounter Location Date Provider Diagnosis [facility] [place] [address] [place], [place] [id number] 09/29/2024 CATHI BURNS Plan Of Treatment No Information Progress Notes * ALONDRANaye ALEJANDREDOB:1965 ( 59 yo F)Acc No.[id number]:09/29/2024 Patient: Naye RAI Provider: Sammi Burns DPM :1965 A ge:59 Y S ex:Female Date:09/29/2024 Address:[address] [place] [address], [address], [place], [place] Subjective: * Chief Complaints: * 1 . Possible stress fracture. * Medical History: Objective: * Vitals: Assessment: Plan: * Treatment: * Billing Information: * Visit Code: * Procedure Codes: * Electronic signature of CATHI BURNS DPM on 03/07/2025 at 12:43 AM CDT Sign off status: Pending * Provider: Sammi Burns DPM Date: 0 09/29/2024 Generated for Mikaela alcaraz/Sheng/Iris on: 0 03/07/2025 12:43 AM CDT
--- OUTSIDE RECORDS SUMMARY | 2025-03-07 00:43 | XMS_ITS | Clinical Summary ---
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 Office Visit [facility] - [address], [address] [place] [address] Gopi Luna MD [address] [place] [address] Health Maintenance Due Date Last Done Comments [...] this topic Medical Devices Implanted Type Area Equipment Technician Device Identifier Shelf Expiration Date Model / Serial / Lot Ivc Filter Filter Pacemaker Pacemaker BIOTRONIK Spinal Cord Stimulator Implant Stimulator Implant Insurance MEDICARE MEDICAID Care Teams Linderman Operator Relationship Specialty Start Date End Date Tom Paz MD [address] [address] PCP - General 09/29/22 Hugo Ordoñ[place]., [place] [address] [address] CARDIOVASCULAR DISEASE 07/15/23
--- OUTSIDE RECORDS SUMMARY | 2025-03-07 00:43 | XMS_ITS | Encounter Summary ---
Author Organization [facility] Healthcare Address [address] [place] [address] Care Team Providers Care Parent Educator Name Role Phone Tom Paz MD Primary Care Provider [phone] Tab Taylor MD Unavailable [phone] Favian Caceres MD Unavailable [phone] Encounter Details Date Type Department Care Team (Late st Contact Info) Description 02/11/2024 Documentation [facility] Case Management [address] [place] [address] Gaviota Benz, RN Social History Tobacco Use Types Packs/Day Years Used Date Smoking Tobacco: Never Passive Smoke Exposure: Past Smokeless Tobacco: Never Alcohol Use Standard Drinks/Week Comments No 0 (1 standard drink = 0.6 oz pur e alcohol) [facility] Utilities Answer Date Recorded In the past 12 months has [employer] electric, gas, oil, or water company threatened [...] How often do you attend [facility] or gnosticism services? 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/pharmacy #[id number] - [place], [place] - [address] [facility] [address] [facility] [address] [id number] - [place], [place] [address] [facility] [address] [facility] - [place], [place] - [address] [facility] [address] [facility] [address] [place], [place] - [address] [facility] [place] [address] [place] [address] Primary Care Provider: Tom Paz MD Prior to Admission: Functional Status: Minimal assist with ADLs Primary Caregiver: Private caregiver Support System: Children, Friends/neighbors (Son: Porter Serrano [phone]/Friend: Federico [phone]) Home Care Services: Yes Type of Home Care Services: laboratory worker (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 Has a reinforcing iron worker helper and has a quad cane and a [...] Collaboration with Patient, Provider, Direct Care Nurse, Tin Can Laborer, and other members of theHealth Care Team to assure needed interventions completed. 2. Return patient to optimal level of self-care post discharge. 3. Security Threat Analyst will follow for Discharge Planning - interventions as needed 4. Anticipated level of care at discharge 5. Planned Discharge Disposition SONALI Brothers, RN stockroom clerk [phone] documented in this encounter Plan of Treatment [...] on filedocumented in this encounter Care Teams Parent Educator Relationship Specialty Start Date End Date Tom Paz MD PCP - General 09/09/16 Tab Taylor MD [address] [place] [address] Consulting Physician Cardiology 01/03/20 Favian Caceres MD [address] [place] [address] Consulting Physician Rheumatology 08/28/23 documented as of this encounter
--- OUTSIDE RECORDS SUMMARY | 2025-03-07 00:43 | XMS_ITS | Encounter Summary ---
Author Organization [facility] Healthcare Address [address] [place] [address] Care Team Providers Care Director Camp Name Role Phone Tom Paz MD Primary Care Provider [phone] Tab Taylor MD Unavailable [phone] Favian Caceres MD Unavailable [phone] Reason for Visit * Reason Onset Date Comments Scheduling Appointments 04/15/2024 Schedule patient for Imaging Genicular RFA Right (42791) and 1m follow Encounter Details Date Type Department Care Team (Late st Contact Info) Description 04/15/2024 Telephone [facility] [address] [address], [address] [place] [address] Dougie Lord MD [address] [address] Scheduling Appointments (Schedule patient for Imaging Genicular RFA Right (89902) and 1m follow ) Social History Tobacco Use Types Packs/Day Years Used Date Smoking Tobacco: Never Passive Smoke Exposure: Past Smokeless Tobacco: Never Alcohol Use Standard Drinks/Week Comments No 0 (1 standard drink = 0.6 oz pur e alcohol) [facility] Utilities Answer Date Recorded In [...] often do you attend chur ch or yazidism services? 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 documented as of this encounter Visit Diagnoses Not on filedocumented in this encounter Care Teams Director Camp Relationship Specialty Start Date End Date Tom Paz MD PCP - General 09/09/16 Tab Taylor MD [address] [place] [address] Consulting Physician Cardiology 01/03/20 Favian Caceres MD [address] [place] [address] Consulting Physician Rheumatology 08/28/23 documented as of this encounter
--- OUTSIDE RECORDS SUMMARY | 2025-03-07 00:43 | XMS_ITS | Encounter Summary ---
Author Organization [facility] Address [address] [place] [address] Phone Care Team Providers Care Rn Infusion Name Role Phone Tom Paz MD Primary Care Provider [phone] Tab Taylor MD Unavailable [phone] Favian Caceres MD Unavailable [phone] Encounter Details Date Type Department Care Team (Late st Contact Info) Description 12/06/2024 E-Visit [facility] [address] [place] [address] Claudia Cristobal, [place] [address] [place] [address] Ultrasound Social History Tobacco Use Types Packs/Day Years Used Date Smoking Tobacco: Never Passive Smoke Exposure: Past Smokeless Tobacco: Never Alcohol Use Standard Drinks/Week Comments No 0 (1 standard drink = 0.6 oz pur e alcohol) [facility] Utilities Answer Date Recorded In the past 12 months has [employer] electric, gas, oil, or water company threatened [...] often do you attend chur ch or congregational services? 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
--- OUTSIDE RECORDS SUMMARY | 2025-03-07 00:43 | XMS_ITS | Patient Health Record ---
Author Organization [facility] Address [address] [place], [place] [address] Care Team Providers Care Snout Puller Name Role Phone CATHI SILVA Unavailable [phone] Tom Paz Unavailable Unavailable CATHI BYNUM Unavailable [phone] Allergies Allergen (clinical drug ingredient) Drug/Non Drug [...] Location Date Provider Diagnosis [facility] [place] [address] [place], [place] [id number] 09/19/2024 CATHI SILVA Tinea pedis B35.3 ; Acquired keratosis [keratoderma] palmaris et plantaris L85.1 ; Metatarsalgia, right foot M77.41 ; Metatarsalgia, left foot M77.42 ; Other eczema L30.8 ; Pain in right foot M79.671 and Left foot pain M79.672 [facility] [address] [facility] [address] [place], [place] [id number] 09/21/2024 CATHI SILVA Assessments Encounter Date Diagnosis [...] erythematous, pruritic, scales or erosions between toes. [place]-type tinea pedis affects the soles and medial [...] the patient use an emollient such as [id number] Eucerin cream, Vanicream, or other lotion to [...] Date Coverage End Date Medicare Part B [facility] [address] [place] [address] [id number] Naye Hart Self - patient is the insured 0 Medical (General) History Medical History History ICD Code fibromyalgia anemia Leg/Feet cramps stroke rheumatoid arthritis Heart Disease Blood clots restless leg syndrome Back Trouble low blood pressure Surgical History Surgery Date(Month/Year) Tubal Ligation Pacemaker Hernia
[2025-03-07] MEDS: LACTATED RINGERS 1,000 ML 30 ML IV CONT ×2 (07:10→10:51)
--- NOTE | 2025-03-07 08:15 | WPDANESEPPF ---
Anes - Initial Pre Proc Eval Procedure: Operation Date: 03/07/25 08:30 Proposed Procedures p Left Sacroiliac Joint Fusion - Taran Ramirez MD Date/Time: 03/07/25 08:15 Surgeon: Taran Ramirez MD Pre Op Diagnosis: Sacroiliitis Patient Data Age: 59 Gender: F Height: 1.73 m Weight: 85.1 kg Last Vital Signs Temp 36.1 C L 03/07/25 06:48 Pulse 70 03/07/25 06:48 Resp 16 03/07/25 06:48 BP 103/67 03/07/25 06:48 Pulse Ox 96 03/07/25 06:48 O2 Del Method Room Air 03/07/25 06:48 Allergies Allergy/AdvReac Type Severity Reaction Status Date / Time meclizine Allergy Severe Rash Verified 03/07/25 07:51 carbamazepine (From Tegretol) Allergy Intermediate Blister Verified 03/07/25 07:51 2-octyl cyanoacrylate Allergy Mild Itching Verified 03/07/25 07:51 Cephalosporins Allergy Mild RASH Verified 03/07/25 07:51 clarithromycin Allergy Mild RASH Verified 03/07/25 07:51 imipramine Allergy Mild RASH Verified 03/07/25 07:51 Penicillins Allergy Mild HIVES Verified 03/07/25 07:51 cefuroxime (From Ceftin) Allergy Hives Verified 03/07/25 07:51 etanercept (From Enbrel) Allergy Redness of Verified 03/07/25 07:51 Skin hydromorphone (From Dilaudid) Allergy Hives Verified 03/07/25 07:51 oxycodone (From Percocet) Allergy Hives Verified 03/07/25 07:51 prochlorperazine (From Allergy Swelling Verified 03/07/25 07:51 Compazine) of Lip/Tongue/Throat propoxyphene (From Darvon) Allergy Hives Verified 03/07/25 07:51 propranolol (From Inderal LA) Allergy Rash Verified 03/07/25 07:51 alcohol (From Mastisol AdvReac Severe Blister Verified 03/07/25 07:51 Adhesive) chloroxylenol (From [place] 7) AdvReac Severe rash Verified 03/07/25 07:51 gum mastic (From Mastisol AdvReac Severe Blister Verified 03/07/25 07:51 Adhesive) methyl salicylate (From AdvReac Severe Blister Verified 03/07/25 07:51 Mastisol Adhesive) storax (From Mastisol AdvReac Severe Blister Verified 03/07/25 07:51 Adhesive) tizanidine AdvReac Intermediate Hallucinati Verified 03/07/25 07:51 ng codeine AdvReac Unknown Vomiting Verified 03/07/25 07:51 diphenhydramine (From AdvReac Vomiting Verified 03/07/25 07:51 Benadryl) hydrocodone (From Vicodin) AdvReac Vomiting Verified 03/07/25 07:51 Home Medications ?Medication ?Instructions ?Recorded ?Confirmed ?Type albuterol sulfate 90 mcg/actuation 1 inh inhalation Q4H PRN shortness 10/13/22 03/06/25 Rx aerosol inhaler (ProAir HFA) of breath or wheezing #6.7 grams epinephrine 0.3 mg/0.3 mL 0.3 mg (0.3 mL) IM ONCE PRN 03/20/23 03/06/25 Rx injection, auto-injector (EpiPen Allergic Reaction #2 ea 2-Ranulfo) golimumab 50 mg/0.5 mL 50 mg subcut MONTHLY 03/26/23 03/07/25 History subcutaneous pen injector (Simponi) promethazine 25 mg rectal 25 mg RECTAL Q6H PRN nausea and 06/04/23 03/06/25 Rx suppository (Promethegan) vomiting #12 ea aspirin 81 mg tablet,delayed 81 mg PO DAILY 07/01/23 03/07/25 History release mupirocin 2 % topical ointment 1 applic topical BID 07/01/23 03/06/25 History duloxetine 60 mg capsule,delayed 60 mg PO HS #90 caps 07/27/23 03/07/25 Rx release (Cymbalta) metoprolol tartrate 50 mg tablet 50 mg PO BID 10/22/23 03/07/25 History lidocaine 5 % topical patch 1 patch topical DAILY #15 ea 10/26/23 03/06/25 Rx pramipexole 1 mg tablet 1 mg PO BID #180 tabs 03/22/24 03/07/25 Rx triamcinolone acetonide 0.1 % 1 applic topical BID #80 grams 03/22/24 03/06/25 Rx topical cream diclofenac sodium 1 % topical gel See Rx Instructions .Route 04/26/24 03/06/25 Rx .COMPLEX #500 grams ondansetron 4 mg disintegrating 4 mg PO Q8H PRN nausea and 07/07/24 03/06/25 Rx tablet vomiting #20 tabs montelukast 10 mg tablet 10 mg PO DAILY #90 tabs 07/27/24 03/07/25 Rx (Singulair) rosuvastatin 40 mg tablet 40 mg PO DAILY #90 tabs 07/27/24 03/07/25 Rx baclofen 5 mg tablet 5 mg PO TID 5 days #15 tabs 09/30/24 03/06/25 Rx fexofenadine 180 mg tablet 180 mg PO DAILY 10/14/24 03/07/25 History (Vicky Allergy) ropinirole 1 mg tablet 1 mg PO TID #270 tabs 10/21/24 03/07/25 Rx leflunomide 20 mg tablet 10 mg PO DAILY 11/10/24 03/07/25 History celecoxib 200 mg capsule 200 mg PO DAILY #30 caps 12/26/24 03/07/25 Rx pantoprazole 40 mg tablet,delayed 40 mg PO BID #1 tablet 12/26/24 03/07/25 Rx release sucralfate 1 gram tablet (Carafate) 1 g PO BID #60 tabs 01/09/25 03/07/25 Rx fluconazole 100 mg tablet 100 mg PO DAILY #1 tablet 02/02/25 03/06/25 Rx (Diflucan) nystatin 100,000 unit/gram topical 1 applic topical BID #30 grams 02/02/25 03/06/25 Rx ointment nitroglycerin 0.4 mg sublingual 0.4 mg sublingual Q5MIN PRN Chest 02/04/25 03/06/25 Rx tablet (Nitrostat) Pain #25 tabs nitrofurantoin 100 mg PO Q12H #20 caps 02/17/25 03/07/25 Rx monohydrate/macrocrystals 100 mg capsule (Macrobid) hydroxyzine HCl 25 mg tablet 25 mg PO Q8H itching #180 tabs 02/28/25 03/07/25 Rx Laboratory Tests 03/07/25 07:17 Blood Type A Negative Antibody Screen Pending Patient hx anesthesia problems: post op nausea/vomiting and other (possible difficult intubation and had pain in jaw from thaw thrust due to obstruction in PACU) Family hx anesthesia problems: none Results Review: All pre-operative results and documents have been reviewed as part of the pre-operative evaluation. [facility] Past Medical History Medical History Knee pain Candidiasis Inflammation of pyloric mucosa Left shoulder pain Bilateral shoulder pain Stomach ulcer Leg edema, right Bilateral leg paresthesia Knee injury Pain of left femur Left thigh pain Coccygeal pain, acute COVID-19 COVID Loss of vision TMJ (temporomandibular joint disorder) Acquired deviated nasal septum Nosebleed Pacemaker Right shoulder pain Witnessed apneic spells Snoring Apnea Chronic GERD Presence of Amulet left atrial appendage closure device Pelvic pain Hematoma of left chest wall Topical med dermatitis Right hand pain Bilateral knee pain Lumbar pain Acute cervical myofascial strain Acute bacterial sinusitis Hypersomnolence Migraine Vomiting DVT (deep venous thrombosis) Flatulence Cervical pain Spasm of lumbar paraspinous muscle MCL sprain of left knee Abrasion of toe Lesion of skin of nose Pneumonia LLQ abdominal pain Knee pain Foreign body in ear BMI 29.0-29.9,adult Lumbar stenosis Foraminal stenosis of lumbar region Pancreatitis Diarrhea Family history of beta thalassemia Inappropriate sinus tachycardia Presence of IVC filter Fibromyalgia Rheumatoid arthritis Anxiety Depression Abnormality of heart beat Ear pain Wears glasses Lightheadedness Vertigo Presence of neurostimulator History of deep vein thrombosis Abdominal bloating Hypoglycemia Allergic reaction to allergy skin test Abdominal lump Anxiety about health Hyponatremia Allergic dermatitis Headache Degenerative joint disease of cervical and lumbar spine TIA (transient ischemic attack) Ataxia A-fib Confusion Atypical face pain D-dimer, elevated Left ear pain Rheumatoid arthritis, seronegative, multiple sites Foreign body of toe Groin pain Groin hematoma Restless leg syndrome Dizziness Lipid disorder Fracture of second toe, left, closed Atopic dermatitis Bradycardia Anemia, unspecified Essential (primary) hypertension Mixed hyperlipidemia Paroxysmal atrial fibrillation RSD (reflex sympathetic dystrophy) SVT (supraventricular tachycardia) Surgical History Surgical History Hx of atrioventricular node ablation History of surgery on left wrist H/O cardiac radiofrequency ablation S/P IVC filter S/P insertion of spinal cord stimulator History of tubal ligation History of endometrial ablation H/O hernia repair Status post surgical removal of both fallopian tubes History of arthroscopic knee surgery History of back surgery History of permanent cardiac pacemaker placement 2019 pacemaker replaced 2023,updated 11/2024 Family History Family History Grandparent Family history of blood dyscrasia Family history of Alzheimer's disease Family history of malignant neoplasm of cervix Mother Family history of Alzheimer's disease Thyroid activity decreased Father Family history of lung cancer Sibling Thyroid activity decreased Other Diabetes mellitus Family history of allergic disorder Family history of kidney disease Family history of malignant neoplasm of thyroid High cholesterol Social History Social History Social History: Caffeine-none Smoking packs per day: 0 Smoking cigarettes per day: 0.0 Years smoked: 0 Smoking pack-years: 0.00 Smoking status: Never smoker Second hand tobacco smoke exposure: No Alcohol intake: never Substance use: never Substance use type: does not use Do You Feel Safe in your Home?: Yes Lack of Transportation: No Lack of Food: Never True Current Housing: I Have Housing Concerned About Future Housing: No Difficulty Paying Gas/Electric Bills: No Difficulty Paying for Meds: No Currently Unemployed: No Education: High School Diploma/GED Difficulty w/ Childcare or Family Care: No Living arrangements: alone Occupation/Education: retired 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 Gender identity (if verbalized by the patient): Female Sexual Orientation (if Verbalized by the Patient): Straight or Heterosexual Spiritual care concerns: No Anes - Eval Final PreProcedure Day of Procedure 03/07/25 08:15 Patient weight: overweight Heart: regular rate and rhythm Lungs: clear to auscultation Airway: Mallampati scale class II Neurological: alert and oriented Last oral intake: >/= 8 hours ASA classification: IV Emergent: no Anesthetic plan: proceed Anesthesia type and monitoring: general ETT and standard monitoring Results Review: All pre-operative results and documents have been reviewed as part of the pre-operative evaluation. Informed Consent: The patient's anesthetic plan and its attendant risks and benefits were discussed with the patient/family/POA. Questions were solicited and answers provided to the satisfaction of the patient/family/POA.
--- NOTE | 2025-03-07 08:53 | PM.IMHP ---
H&P: HPI History of Present Illness Date/Time: 03/07/25 08:53 Chief Complaint: Back and buttock pain Narrative: Naye is here today for sacroiliac joint fusion on the left. She previously underwent that surgery on the right with good benefit. She now has similar symptoms on the left which she has had for some time. This is in her left buttock extending into the lateral and posterior hip and buttock. It is with her at all times to some degree. It is worse if she is standing and walking or with transfers or bending and twisting. It is severe and limiting for her on a daily basis. She has had an injection of the joint which was helpful for a few weeks but the discomfort returned. This was a therapeutic injection with steroid. She has not having any new bowel or bladder other constitutional problems. She does not report specific muscle group weakness dermatomal numbness. Review of Systems Review of Systems: All systems reviewed & are unremarkable except as noted in HPI and below Denies chills, Denies fever, Denies weight gain and Denies weight loss Eyes Denies change in vision and Denies diplopia ENT Denies disequilibrium Card Denies chest pain and Denies dyspnea Resp Denies cough and Denies dyspnea GI Denies abdominal pain, Denies change in bowel habits, Denies fecal incontinence and Denies vomiting Denies hematuria, Denies oliguria, Denies difficulty urinating, Denies dysuria, Denies urinary frequency, Denies urinary hesitancy, Denies urinary incontinence and Denies urinary urgency Musc Reports as per HPI Skin/ Breast Reports system reviewed and no additional complaints, except as documented Neuro Reports as per HPI Psych Reports no additional complaints, Denies depression and Denies hopelessness Endo Reports no additional complaints and Denies polyuria [place]/ Lymph Reports no additional complaints Aller/ Immun Reports no additional complaints PMFSH Past Medical History Medical History Knee pain Candidiasis Inflammation of pyloric mucosa Left shoulder pain Bilateral shoulder pain Stomach ulcer Leg edema, right Bilateral leg paresthesia Knee injury Pain of left femur Left thigh pain Coccygeal pain, acute COVID-19 COVID Loss of vision TMJ (temporomandibular joint disorder) Acquired deviated nasal septum Nosebleed Pacemaker Right shoulder pain Witnessed apneic spells Snoring Apnea Chronic GERD Presence of Amulet left atrial appendage closure device Pelvic pain Hematoma of left chest wall Topical med dermatitis Right hand pain Bilateral knee pain Lumbar pain Acute cervical myofascial strain Acute bacterial sinusitis Hypersomnolence Migraine Vomiting DVT (deep venous thrombosis) Flatulence Cervical pain Spasm of lumbar paraspinous muscle MCL sprain of left knee Abrasion of toe Lesion of skin of nose Pneumonia LLQ abdominal pain Knee pain Foreign body in ear BMI 29.0-29.9,adult Lumbar stenosis Foraminal stenosis of lumbar region Pancreatitis Diarrhea Family history of beta thalassemia Inappropriate sinus tachycardia Presence of IVC filter Fibromyalgia Rheumatoid arthritis Anxiety Depression Abnormality of heart beat Ear pain Wears glasses Lightheadedness Vertigo Presence of neurostimulator History of deep vein thrombosis Abdominal bloating Hypoglycemia Allergic reaction to allergy skin test Abdominal lump Anxiety about health Hyponatremia Allergic dermatitis Headache Degenerative joint disease of cervical and lumbar spine TIA (transient ischemic attack) Ataxia A-fib Confusion Atypical face pain D-dimer, elevated Left ear pain Rheumatoid arthritis, seronegative, multiple sites Foreign body of toe Groin pain Groin hematoma Restless leg syndrome Dizziness Lipid disorder Fracture of second toe, left, closed Atopic dermatitis Bradycardia Anemia, unspecified Essential (primary) hypertension Mixed hyperlipidemia Paroxysmal atrial fibrillation RSD (reflex sympathetic dystrophy) SVT (supraventricular tachycardia) Surgical History Surgical History Hx of atrioventricular node ablation History of surgery on left wrist H/O cardiac radiofrequency ablation S/P IVC filter S/P insertion of spinal cord stimulator History of tubal ligation History of endometrial ablation H/O hernia repair Status post surgical removal of both fallopian tubes History of arthroscopic knee surgery History of back surgery History of permanent cardiac pacemaker placement 2019 pacemaker replaced 2023,updated 11/2024 Family History Family History Grandparent Family history of blood dyscrasia Family history of Alzheimer's disease Family history of malignant neoplasm of cervix Mother Family history of Alzheimer's disease Thyroid activity decreased Father Family history of lung cancer Sibling Thyroid activity decreased Other Diabetes mellitus Family history of allergic disorder Family history of kidney disease Family history of malignant neoplasm of thyroid High cholesterol Social History Social History Social History: Caffeine-none Smoking packs per day: 0 Smoking cigarettes per day: 0.0 Years smoked: 0 Smoking pack-years: 0.00 Smoking status: Never smoker Second hand tobacco smoke exposure: No Alcohol intake: never Substance use: never Substance use type: does not use Do You Feel Safe in your Home?: Yes Lack of Transportation: No Lack of Food: Never True Current Housing: I Have Housing Concerned About Future Housing: No Difficulty Paying Gas/Electric Bills: No Difficulty Paying for Meds: No Currently Unemployed: No Education: High School Diploma/GED Difficulty w/ Childcare or Family Care: No Living arrangements: alone Occupation/Education: retired 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 Gender identity (if verbalized by the patient): Female Sexual Orientation (if Verbalized by the Patient): Straight or Heterosexual Spiritual care concerns: No Meds Home Medications and Allergies Home Medications ?Medication ?Instructions ?Recorded ?Confirmed ?Type albuterol sulfate 90 mcg/actuation 1 inh inhalation Q4H PRN shortness 10/13/22 03/06/25 Rx aerosol inhaler (ProAir HFA) of breath or wheezing #6.7 grams epinephrine 0.3 mg/0.3 mL 0.3 mg (0.3 mL) IM ONCE PRN 03/20/23 03/06/25 Rx injection, auto-injector (EpiPen Allergic Reaction #2 ea 2-Ranulfo) golimumab 50 mg/0.5 mL 50 mg subcut MONTHLY 03/26/23 03/07/25 History subcutaneous pen injector (Simponi) promethazine 25 mg rectal 25 mg RECTAL Q6H PRN nausea and 06/04/23 03/06/25 Rx suppository (Promethegan) vomiting #12 ea aspirin 81 mg tablet,delayed 81 mg PO DAILY 07/01/23 03/07/25 History release mupirocin 2 % topical ointment 1 applic topical BID 07/01/23 03/06/25 History duloxetine 60 mg capsule,delayed 60 mg PO HS #90 caps 07/27/23 03/07/25 Rx release (Cymbalta) metoprolol tartrate 50 mg tablet 50 mg PO BID 10/22/23 03/07/25 History lidocaine 5 % topical patch 1 patch topical DAILY #15 ea 10/26/23 03/06/25 Rx pramipexole 1 mg tablet 1 mg PO BID #180 tabs 03/22/24 03/07/25 Rx triamcinolone acetonide 0.1 % 1 applic topical BID #80 grams 03/22/24 03/06/25 Rx topical cream diclofenac sodium 1 % topical gel See Rx Instructions .Route 04/26/24 03/06/25 Rx .COMPLEX #500 grams ondansetron 4 mg disintegrating 4 mg PO Q8H PRN nausea and 07/07/24 03/06/25 Rx tablet vomiting #20 tabs montelukast 10 mg tablet 10 mg PO DAILY #90 tabs 07/27/24 03/07/25 Rx (Singulair) rosuvastatin 40 mg tablet 40 mg PO DAILY #90 tabs 07/27/24 03/07/25 Rx baclofen 5 mg tablet 5 mg PO TID 5 days #15 tabs 09/30/24 03/06/25 Rx fexofenadine 180 mg tablet 180 mg PO DAILY 10/14/24 03/07/25 History (Vicky Allergy) ropinirole 1 mg tablet 1 mg PO TID #270 tabs 10/21/24 03/07/25 Rx leflunomide 20 mg tablet 10 mg PO DAILY 11/10/24 03/07/25 History celecoxib 200 mg capsule 200 mg PO DAILY #30 caps 12/26/24 03/07/25 Rx pantoprazole 40 mg tablet,delayed 40 mg PO BID #1 tablet 12/26/24 03/07/25 Rx release sucralfate 1 gram tablet (Carafate) 1 g PO BID #60 tabs 01/09/25 03/07/25 Rx fluconazole 100 mg tablet 100 mg PO DAILY #1 tablet 02/02/25 03/06/25 Rx (Diflucan) nystatin 100,000 unit/gram topical 1 applic topical BID #30 grams 02/02/25 03/06/25 Rx ointment nitroglycerin 0.4 mg sublingual 0.4 mg sublingual Q5MIN PRN Chest 02/04/25 03/06/25 Rx tablet (Nitrostat) Pain #25 tabs nitrofurantoin 100 mg PO Q12H #20 caps 02/17/25 03/07/25 Rx monohydrate/macrocrystals 100 mg capsule (Macrobid) hydroxyzine HCl 25 mg tablet 25 mg PO Q8H itching #180 tabs 02/28/25 03/07/25 Rx Allergies Allergy/AdvReac Type Severity Reaction Status Date / Time meclizine Allergy Severe Rash Verified 03/07/25 07:51 carbamazepine (From Tegretol) Allergy Intermediate Blister Verified 03/07/25 07:51 2-octyl cyanoacrylate Allergy Mild Itching Verified 03/07/25 07:51 Cephalosporins Allergy Mild RASH Verified 03/07/25 07:51 clarithromycin Allergy Mild RASH Verified 03/07/25 07:51 imipramine Allergy Mild RASH Verified 03/07/25 07:51 Penicillins Allergy Mild HIVES Verified 03/07/25 07:51 cefuroxime (From Ceftin) Allergy Hives Verified 03/07/25 07:51 etanercept (From Enbrel) Allergy Redness of Verified 03/07/25 07:51 Skin hydromorphone (From Dilaudid) Allergy Hives Verified 03/07/25 07:51 oxycodone (From Percocet) Allergy Hives Verified 03/07/25 07:51 prochlorperazine (From Allergy Swelling Verified 03/07/25 07:51 Compazine) of Lip/Tongue/Throat propoxyphene (From Darvon) Allergy Hives Verified 03/07/25 07:51 propranolol (From Inderal [place]) Allergy Rash Verified 03/07/25 07:51 alcohol (From Mastisol AdvReac Severe Blister Verified 03/07/25 07:51 Adhesive) chloroxylenol (From [place] 7) AdvReac Severe rash Verified 03/07/25 07:51 gum mastic (From Mastisol AdvReac Severe Blister Verified 03/07/25 07:51 Adhesive) methyl salicylate (From AdvReac Severe Blister Verified 03/07/25 07:51 Mastisol Adhesive) storax (From Mastisol AdvReac Severe Blister Verified 03/07/25 07:51 Adhesive) tizanidine AdvReac Intermediate Hallucinati Verified 03/07/25 07:51 ng codeine AdvReac Unknown Vomiting Verified 03/07/25 07:51 diphenhydramine (From AdvReac Vomiting Verified 03/07/25 07:51 Benadryl) hydrocodone (From Vicodin) AdvReac Vomiting Verified 03/07/25 07:51 Vital Signs Vital Signs - 24 hr 03/07/25 06:48 Temperature 96.9 F L Pulse Rate 70 Respiratory Rate 16 Blood Pressure 103/67 Pulse Oximetry 96 Oxygen Delivery Room Air Exam Narrative: General: cooperative, no acute distress, well developed, alert and awake Orientation/Consciousness: oriented to person, oriented to place and oriented to time Constitutional Limitations: no limitations Other: The patient is a normally developed, normal appearing male sitting on the examination table in no acute distress. He is awake, alert, and oriented x3 with good fund of knowledge, recall of events, and fluent speech. HENVA Head: normocephalic and atraumatic Ears: external ears normal Face/Nose/Sinus: Normal external nose present Eyes Eyelids: eyelids normal Pupils: Yes Pupils normal by confrontation EOM: EOMs intact bilaterally Neck General: Yes no meningeal signs, Yes supple and Yes no JVD Resp Effort/Inspection: normal respiratory effort and able to speak in complete sentences Cardio Rate: Yes regular rate GI Inspection: No abdominal distension Musc Other: Examination of the back reveals tenderness over the left sacroiliac joint and in the buttock. It is milder in the paraspinous lumbar musculature. Range of motion of the back is Limited in forward flexion, extension, and lateral rotation to both sides. Straight leg raise is negative bilaterally. Carlos?s test is negative bilaterally. Skin General: normal color Neuro General: Yes oriented to person, Yes oriented to place, Yes oriented to time, Yes normal cognition and Yes no meningeal signs Cranial Nerves: Yes CN's II-XII intact bilaterally Other: Motor: Strength is normal, 5/5, throughout all muscle groups of the bilateral lower extremities to direct confrontation. Sensory: Sensation is intact to light touch throughout the lower extremities bilaterally. Reflexes: Deep tendon reflexes are normal and symmetric at the knees and difficult to elicit the ankles bilaterally. There is no clonus. Gait: Gait, station, and transfers are independent and steady for short periods of time and over short distances. Psych Appearance: grossly normal Mental status: Yes mental status grossly normal Mood: congruent mood Affect: Yes normal affect Speech/Movement: Normal speech and movement present Attitude: Yes cooperative Thought Content: Normal thought content present Assessment and Plan Assessment and plan (1) Sacroiliitis: Code(s): M46.1 - Sacroiliitis, not elsewhere classified Status: Acute Plan Naye presents for a left sacroiliac joint fusion. I described to her again that operation, its risks, potential benefits, the operative and postoperative course in detail and answered all her questions personally. She indicates understanding and elects to proceed with that operation.
--- NOTE | 2025-03-07 08:56 | WPDHPUPDATE1 ---
History and Physical Update Update Date/Time: 03/07/25 08:56 History and Physical has been reviewed, including an updated exam of the patient. There are NO changes in the patient's condition. Risks, benefits, and alternatives have been discussed and questions answered. Patient agrees to proceed with procedure.
[2025-03-07] MEDS: CLINDAMYCIN 900 MG/D5W 50 ML 900 MG/50 ML PIGGYBACK 50 MG IVPB (08:59)
[2025-03-07] MEDS: LIDO 1%/EPINEPHRINE 1:100,000 20 ML VIAL 10 ML INFILTRATE (10:33)
[2025-03-07] MEDS: fentaNYL CITRATE INJ (*CRX) 100 MCG/2 ML VIAL 25 MCG IV PUSH ×4 (11:06→11:34)
--- NOTE | 2025-03-07 12:00 | PC.NURSE ---
This patient, Naye Hart, was admitted to [address] [place] [address] Room 331-02. Patient/family oriented to hospital policies and general routines including ID bracelet, bed and alarms, visiting hours, pain management, procedures, bathroom and other care routines, personal items, smoking policy, room service/diet, and visiting hours. Information on how to activate the Rapid Response Team has been discussed. Patient/Family are encouraged to report perceived risks to care and to ask questions if they do not understand what they are told or what they should do.
[2025-03-07] MEDS: MORPHINE SULFATE (*CRX) 4 MG/ML INJ IV PUSH ×3 (13:07→20:11)
[2025-03-07] MEDS: KCL 20 MEQ/D5/0.45% SOD CHL 1,000 ML 100 ML IV CONT (15:31)
[2025-03-07] MEDS: PRAMIPEXOLE 1 MG TABLET PO (16:54)
[2025-03-07] MEDS: NYSTATIN OINTMENT 15 GM TUBE 1 APPLIC TOPICAL (16:54)
[2025-03-07] MEDS: PANTOPRAZOLE 40 MG TABLET PO (16:55)
[2025-03-07] MEDS: METOPROLOL TARTRATE 50 MG TAB PO (16:55)
[2025-03-07] MEDS: SUCRALFATE 1 GM TABLET PO (16:55)
[2025-03-07] MEDS: DULoxetine HCL 60 MG CAPSULE.DR PO (20:07)
[2025-03-07] MEDS: DOCUSATE SODIUM 100 MG CAPSULE PO (20:07)
[2025-03-07] MEDS: traMADol HCL (*CRX) 50 MG TABLET 100 MG PO (22:57)
[2025-03-08] MEDS: MORPHINE SULFATE (*CRX) 4 MG/ML INJ IV PUSH ×2 (01:31→13:11)
[2025-03-08] MEDS: KCL 20 MEQ/D5/0.45% SOD CHL 1,000 ML 100 ML IV CONT (02:51)
[2025-03-08 02:52] VITALS: BP 101/69; PULSE 66; RESP 18; TEMP 36.3; O2SAT 100
[2025-03-08 06:52] VITALS: BP 105/79; PULSE 66; RESP 16; TEMP 36.6; O2SAT 99
[2025-03-08] MEDS: LEFLUNOMIDE 10 MG TABLET PO (08:22)
[2025-03-08] MEDS: DOCUSATE SODIUM 100 MG CAPSULE PO ×2 (08:22→21:56)
[2025-03-08] MEDS: PANTOPRAZOLE 40 MG TABLET PO ×2 (08:22→16:06)
[2025-03-08] MEDS: traMADol HCL (*CRX) 50 MG TABLET 100 MG PO ×3 (08:23→21:55)
[2025-03-08 08:24] VITALS: PULSE 72
[2025-03-08] MEDS: MONTELUKAST SODIUM 10 MG TABLET PO (08:24)
[2025-03-08] MEDS: METOPROLOL TARTRATE 50 MG TAB PO ×2 (08:24→16:06)
[2025-03-08] MEDS: ROSUVASTATIN 20 MG TABLET 40 MG PO (08:24)
[2025-03-08] MEDS: LORATADINE 10 MG TABLET PO (08:26)
[2025-03-08] MEDS: SUCRALFATE 1 GM TABLET PO ×2 (08:26→16:06)
[2025-03-08] MEDS: PRAMIPEXOLE 1 MG TABLET PO ×2 (08:26→16:07)
[2025-03-08] MEDS: MUPIROCIN 2% OINT 22 GM TUBE 1 APPLIC TOPICAL ×2 (08:27→16:07)
[2025-03-08] MEDS: TRIAMCINOLONE ACET 0.1% CREAM 15 GM TUBE 1 APPLIC TOPICAL ×2 (08:27→16:07)
[2025-03-08] MEDS: NYSTATIN OINTMENT 15 GM TUBE 1 APPLIC TOPICAL ×2 (08:28→16:07)
[2025-03-08 10:52] VITALS: BP 94/60; PULSE 70; RESP 18; TEMP 36.1; O2SAT 97
--- NOTE | 2025-03-08 11:19 | PC.NURSE ---
Spoke with Dr. Ramirez at 1115 about patient stating I coughed and now I cant move my leg. Notified Dr Ramirez that Neuros were WNL at 0800 and now patient is stating she cannot move her leg and patient is unable to give good push reflexes on her left leg. Dr. Ramirez is to call back this nurse to speak again as well as speak with the patient.
[2025-03-08 14:52] VITALS: BP 112/74; PULSE 70; RESP 20; TEMP 36.1; O2SAT 97
[2025-03-08 16:06] VITALS: PULSE 74
--- NOTE | 2025-03-08 16:53 | WPDNEUROSGPN ---
Progress Note: A&P Assessment and Plan (1) S/P fusion of sacroiliac joint: Code(s): Z98.1 - Arthrodesis status Status: Acute Plan -Will get a pelvic xray per her request to evaluate implant -Will add baclofen to pain regimen -PT/OT re-evaluations tomorrow Subjective Date/time seen: 03/08/25 16:53 Interval history: She is having quite a bit of pain since having a coughing episode this morning. Pain is going down the back of the left leg. She has difficulty moving the leg and applying pressure to it when the pain is significant. She is quite limited in types of pain medications she can take due to extensive allergies Review of Systems Review of Systems: All systems reviewed & are unremarkable except as noted in HPI and below Exam Narrative: AOx4 Right leg full strength Left leg 4/5 proximally, 5/5 distally Sensation intact to light touch Incision intact, slightly edematous Objective Data Vital Signs Vital Signs: Vital Signs - 24 hr 03/07/25 16:55 03/07/25 20:00 03/07/25 22:52 Temperature 97.7 F Pulse Rate 70 70 70 Respiratory Rate 20 18 Blood Pressure 93/72 L Pulse Oximetry 97 100 Oxygen Delivery Room Air 03/08/25 02:52 03/08/25 06:52 03/08/25 08:24 Temperature 97.4 F L 97.9 F Pulse Rate 66 66 72 Respiratory Rate 18 16 Blood Pressure 101/69 105/79 Pulse Oximetry 100 99 Oxygen Delivery 03/08/25 10:52 03/08/25 14:52 03/08/25 16:06 Temperature 97.0 F L 97.0 F L Pulse Rate 70 70 74 Respiratory Rate 18 20 Blood Pressure 94/60 L 112/74 Pulse Oximetry 97 97 Oxygen Delivery Intake/Output Intake/Output: Intake & Output 03/05/25 03/06/25 03/07/25 03/08/25 23:59 23:59 23:59 23:59 Intake Total 850 2060 Balance 850 2060 Meds/Results Medications: Active Medications Generic Name Dose Route Start Last Admin Trade Name Freq PRN Reason Stop Dose Admin Al Hydrox/Mg Hydrox/Simethicone 20 ml 03/07/25 11:52 Mag Hydrox/Al Hydrox/Simeth 30 Ml Udc PO Q4H PRN Indigestion/Heartburn Albuterol 1 puff 03/07/25 11:52 Albuterol Sulfate (*Sp) Aerosol 1 Puff INHALATION Q4H PRN Shortness Of Breath Or Wheezing Bisacodyl 10 mg 03/07/25 11:52 Bisacodyl 10 Mg Suppository RECTAL DAILY PRN Constipation Docusate Sodium 100 mg 03/07/25 21:00 03/08/25 08:22 Docusate Sodium 100 Mg Capsule PO 100 mg Q12HR WATSON Administration Duloxetine HCl 60 mg 03/07/25 21:00 03/07/25 20:07 Duloxetine Hcl 60 Mg Capsule.Dr PO 60 mg HS WATSON Administration Hydroxyzine HCl 25 mg 03/07/25 14:00 03/08/25 13:07 Hydroxyzine Hcl 25 Mg Tablet PO 25 mg Q8HR WATSON Administration Potassium Chloride/Dextrose/Sod Cl 1,000 mls @ 100 mls/hr 03/07/25 11:52 03/08/25 02:51 Kcl 20 Meq/D5/0.45% Sod Chl IV CONT 100 mls/hr .Q10H WATSON Administration Leflunomide 10 mg 03/08/25 09:00 03/08/25 08:22 Leflunomide 10 Mg Tablet PO 10 mg DAILY WATSON Administration Loratadine 10 mg 03/08/25 09:00 03/08/25 08:26 Loratadine 10 Mg Tablet PO 10 mg DAILY WATSON Administration Metoprolol Tartrate 50 mg 03/07/25 17:00 03/08/25 16:06 Metoprolol Tartrate 50 Mg Tab PO 50 mg BID WATSON Administration Montelukast Sodium 10 mg 03/08/25 09:00 03/08/25 08:24 Montelukast Sodium 10 Mg Tablet PO 10 mg DAILY WATSON Administration Morphine Sulfate 4 mg 03/07/25 11:52 03/08/25 13:11 Morphine Sulfate (*Crx) 4 Mg/Ml Inj IV PUSH 4 mg Q2H PRN Administration Pain Rated 7-10 Mupirocin 1 applic 03/07/25 17:00 03/08/25 16:07 Mupirocin 2% Oint 22 Gm Tube TOPICAL 1 applic BID WATSON Administration Nitroglycerin 0.4 mg 03/07/25 11:52 Nitroglycerin Sl 0.4 Mg Tablet SUBLINGUAL Q5MIN PRN Chest Pain Nystatin 1 applic 03/07/25 17:00 03/08/25 16:07 Nystatin Ointment 15 Gm Tube TOPICAL 1 applic BID WATSON Administration Ondansetron HCl 4 mg 03/07/25 11:52 Ondansetron Inj 4 Mg/2 Ml Vial IV PUSH Q8H PRN Nausea And Vomiting Pantoprazole Sodium 40 mg 03/07/25 17:00 03/08/25 16:06 Pantoprazole 40 Mg Tablet PO 40 mg BID WATSON Administration Pramipexole Dihydrochloride 1 mg 03/07/25 17:00 03/08/25 16:07 Pramipexole 1 Mg Tablet PO 1 mg BID WATSON Administration Promethazine HCl 25 mg 03/07/25 11:52 Promethazine Hcl 25 Mg Supp.Rect RECTAL Q6H PRN Nausea And Vomiting Ropinirole HCl 1 mg 03/07/25 13:00 03/08/25 16:06 Ropinirole Hcl 1 Mg Tablet PO 1 mg TID WATSON Administration Rosuvastatin Calcium 40 mg 03/08/25 09:00 03/08/25 08:24 Rosuvastatin 20 Mg Tablet PO 40 mg DAILY WATSON Administration Senna/Docusate Sodium 1 tab 03/07/25 11:52 Senna/Docusate Sodium Tablet PO HS PRN Constipation Sucralfate 1 gm 03/07/25 17:00 03/08/25 16:06 Sucralfate 1 Gm Tablet PO 1 gm BID WATSON Administration Tramadol HCl 50 mg 03/07/25 11:15 Tramadol Hcl (*Crx) 50 Mg Tablet PO Q4H PRN Pain Rated 4-6 Tramadol HCl 100 mg 03/07/25 11:16 03/08/25 08:23 Tramadol Hcl (*Crx) 50 Mg Tablet PO 100 mg Q4H PRN Administration Pain Rated 7-10 Triamcinolone Acetonide 1 applic 03/07/25 17:00 03/08/25 16:07 Triamcinolone Acet 0.1% Cream 15 Gm Tube TOPICAL 1 applic BID WATSON Administration
[2025-03-08] MEDS: BACLOFEN 10 MG TABLET PO (17:33)
[2025-03-08] MEDS: DULoxetine HCL 60 MG CAPSULE.DR PO (22:09)
[2025-03-09] MEDS: MORPHINE SULFATE (*CRX) 4 MG/ML INJ IV PUSH ×2 (03:03→08:40)
[2025-03-09] MEDS: KCL 20 MEQ/D5/0.45% SOD CHL 1,000 ML 100 ML IV CONT ×3 (05:58→08:37)
[2025-03-09 06:08] VITALS: BP 116/65; PULSE 109; RESP 18; TEMP 36.5; O2SAT 94
[2025-03-09 08:38] VITALS: PULSE 76
[2025-03-09] MEDS: SUCRALFATE 1 GM TABLET PO (08:38)
[2025-03-09] MEDS: BACLOFEN 10 MG TABLET PO (08:38)
[2025-03-09] MEDS: PRAMIPEXOLE 1 MG TABLET PO (08:38)
[2025-03-09] MEDS: METOPROLOL TARTRATE 50 MG TAB PO (08:38)
[2025-03-09] MEDS: DOCUSATE SODIUM 100 MG CAPSULE PO (08:38)
[2025-03-09] MEDS: PANTOPRAZOLE 40 MG TABLET PO (08:38)
[2025-03-09] MEDS: MONTELUKAST SODIUM 10 MG TABLET PO (08:39)
[2025-03-09] MEDS: ROSUVASTATIN 20 MG TABLET 40 MG PO (08:39)
[2025-03-09] MEDS: LORATADINE 10 MG TABLET PO (08:40)
[2025-03-09] MEDS: LEFLUNOMIDE 10 MG TABLET PO (08:41)
[2025-03-09] MEDS: NYSTATIN OINTMENT 15 GM TUBE 1 APPLIC TOPICAL (08:41)
[2025-03-09] MEDS: TRIAMCINOLONE ACET 0.1% CREAM 15 GM TUBE 1 APPLIC TOPICAL (08:41)
[2025-03-09] MEDS: MUPIROCIN 2% OINT 22 GM TUBE 1 APPLIC TOPICAL (08:41)
--- NOTE | 2025-03-09 13:21 | WPDNEUROSGPN ---
Progress Note: A&P Assessment and Plan (1) S/P fusion of sacroiliac joint: Code(s): Z98.1 - Arthrodesis status Status: Acute Plan -Discharge home today with tramadol as she cannot take other pain medications due to extensive allergies -Wound care and activity precautions reviewed at bedside -Follow up with Dr. Ramirez as scheduled Subjective Date/time seen: 03/09/25 13:21 Interval history: She is doing much better today. Her leg pain has improved quite a bit, but she continues to notice pain down the back of the leg when sitting in certain positions. She was able to walk today without difficulty. She would like to go home Review of Systems Review of Systems: All systems reviewed & are unremarkable except as noted in HPI and below Exam Narrative: AOx4 Incision c/d/i Full strength in lower extremities Sensation intact to light touch Objective Data Vital Signs Vital Signs: Vital Signs - 24 hr 03/08/25 14:52 03/08/25 16:06 03/08/25 20:00 Temperature 97.0 F L Pulse Rate 70 74 Respiratory Rate 20 Blood Pressure 112/74 Pulse Oximetry 97 Oxygen Delivery Room Air 03/09/25 06:08 03/09/25 08:00 03/09/25 08:38 Temperature 97.7 F Pulse Rate 109 H 76 Respiratory Rate 18 Blood Pressure 116/65 Pulse Oximetry 94 Oxygen Delivery Room Air Intake/Output Intake/Output: Intake & Output 03/06/25 03/07/25 03/08/25 03/09/25 23:59 23:59 23:59 23:59 Intake Total 850 3920 1241.7 Balance 850 3920 1241.7 Meds/Results Medications: Active Medications Generic Name Dose Route Start Last Admin Trade Name Freq PRN Reason Stop Dose Admin Al Hydrox/Mg Hydrox/Simethicone 20 ml 03/07/25 11:52 Mag Hydrox/Al Hydrox/Simeth 30 Ml Udc PO Q4H PRN Indigestion/Heartburn Albuterol 1 puff 03/07/25 11:52 Albuterol Sulfate (*Sp) Aerosol 1 Puff INHALATION Q4H PRN Shortness Of Breath Or Wheezing Baclofen 10 mg 03/08/25 16:57 03/09/25 08:38 Baclofen 10 Mg Tablet PO 10 mg Q8HR PRN Administration Muscle Spasm Bisacodyl 10 mg 03/07/25 11:52 Bisacodyl 10 Mg Suppository RECTAL DAILY PRN Constipation Docusate Sodium 100 mg 03/07/25 21:00 03/09/25 08:38 Docusate Sodium 100 Mg Capsule PO 100 mg Q12HR WATSON Administration Duloxetine HCl 60 mg 03/07/25 21:00 03/08/25 22:09 Duloxetine Hcl 60 Mg Capsule.Dr PO 60 mg HS WATSON Administration Hydroxyzine HCl 25 mg 03/07/25 14:00 03/09/25 05:06 Hydroxyzine Hcl 25 Mg Tablet PO 25 mg Q8HR WATSON Administration Potassium Chloride/Dextrose/Sod Cl 1,000 mls @ 100 mls/hr 03/07/25 11:52 03/09/25 08:37 Kcl 20 Meq/D5/0.45% Sod Chl IV CONT 100 mls/hr .Q10H WATSON Administration Leflunomide 10 mg 03/08/25 09:00 03/09/25 08:41 Leflunomide 10 Mg Tablet PO 10 mg DAILY WATSON Administration Loratadine 10 mg 03/08/25 09:00 03/09/25 08:40 Loratadine 10 Mg Tablet PO 10 mg DAILY WATSON Administration Metoprolol Tartrate 50 mg 03/07/25 17:00 03/09/25 08:38 Metoprolol Tartrate 50 Mg Tab PO 50 mg BID WATSON Administration Montelukast Sodium 10 mg 03/08/25 09:00 03/09/25 08:39 Montelukast Sodium 10 Mg Tablet PO 10 mg DAILY WATSON Administration Morphine Sulfate 4 mg 03/07/25 11:52 03/09/25 08:40 Morphine Sulfate (*Crx) 4 Mg/Ml Inj IV PUSH 4 mg Q2H PRN Administration Pain Rated 7-10 Mupirocin 1 applic 03/07/25 17:00 03/09/25 08:41 Mupirocin 2% Oint 22 Gm Tube TOPICAL 1 applic BID WATSON Administration Nitroglycerin 0.4 mg 03/07/25 11:52 Nitroglycerin Sl 0.4 Mg Tablet SUBLINGUAL Q5MIN PRN Chest Pain Nystatin 1 applic 03/07/25 17:00 03/09/25 08:41 Nystatin Ointment 15 Gm Tube TOPICAL 1 applic BID WATSON Administration Ondansetron HCl 4 mg 03/07/25 11:52 Ondansetron Inj 4 Mg/2 Ml Vial IV PUSH Q8H PRN Nausea And Vomiting Pantoprazole Sodium 40 mg 03/07/25 17:00 03/09/25 08:38 Pantoprazole 40 Mg Tablet PO 40 mg BID WATSON Administration Pramipexole Dihydrochloride 1 mg 03/07/25 17:00 03/09/25 08:38 Pramipexole 1 Mg Tablet PO 1 mg BID WATSON Administration Promethazine HCl 25 mg 03/07/25 11:52 Promethazine Hcl 25 Mg Supp.Rect RECTAL Q6H PRN Nausea And Vomiting Ropinirole HCl 1 mg 03/07/25 13:00 03/09/25 08:38 Ropinirole Hcl 1 Mg Tablet PO 1 mg TID WATSON Administration Rosuvastatin Calcium 40 mg 03/08/25 09:00 03/09/25 08:39 Rosuvastatin 20 Mg Tablet PO 40 mg DAILY WATSON Administration Senna/Docusate Sodium 1 tab 03/07/25 11:52 Senna/Docusate Sodium Tablet PO HS PRN Constipation Sucralfate 1 gm 03/07/25 17:00 03/09/25 08:38 Sucralfate 1 Gm Tablet PO 1 gm BID WATSON Administration Tramadol HCl 50 mg 03/07/25 11:15 Tramadol Hcl (*Crx) 50 Mg Tablet PO Q4H PRN Pain Rated 4-6 Tramadol HCl 100 mg 03/07/25 11:16 03/08/25 21:55 Tramadol Hcl (*Crx) 50 Mg Tablet PO 100 mg Q4H PRN Administration Pain Rated 7-10 Triamcinolone Acetonide 1 applic 03/07/25 17:00 03/09/25 08:41 Triamcinolone Acet 0.1% Cream 15 Gm Tube TOPICAL 1 applic BID WATSON Administration Radiology Results: ITS Impressions Pelvis X-Ray 03/08/25 17:30 Impression: 1: No acute bone or joint abnormality.
[2025-03-09] MEDS: traMADol HCL (*CRX) 50 MG TABLET 100 MG PO (13:37)
--- NOTE | 2025-03-15 13:43 | OP_ITS ---
This report was moved to the correct visit on 03/24/2025. The original report was signed by Taran Ramirez MD on 03/15/25 1343. Procedure Note - Detailed Date of Procedure 03/07/25 Pre-op Diagnosis Sacroiliitis Post-op Diagnosis Same Procedure Performed Left sacroiliac joint fusion Surgeon Taran Ramirez MD Anesthesia General Description of Procedure The patient was brought to the operating room in the supine position, was sedated, intubated placed under general anesthesia in routine fashion. She was then turned into the prone position on gel rolls. The of operation on the left buttock was examined, marked for incision, prepped and draped in routine sterile fashion. Incision was marked along the margin of the sacrum using lateral fluoroscopy. In the in outlet views were also checked and planned. 0.5% lidocaine with [id number] epinephrine was injected at the incision site. Intravenous antibiotics given prior to incision. Incision was made with a 10 blade scalpel. Bleeding was stopped with bipolar cautery. A wire was placed down to the ilium across the sacrum and confirmed in lateral view fluoroscopy to be within the margins of the sacrum and behind a lower line. This was advanced slightly and then on inlet and outlet views advanced across the SI joint, making sure to be within the anterior margin of the sacrum and short of the foraminal line. Sequential dilators were placed over the wire and a measurement taken. An 11.5 diameter device of the appropriate length was chosen and filled with magnetos and local autograft bone that was about to be obtained. The wire was extended and sequential drilling and tapping was performed using outlet view fluoroscopy. The device was then placed using outlet view fluoroscopy and confirmed to be in good position short of the foraminal line. A guide tube was used to place a 2nd and 3rd wire and like fashion, using the same technique, a wire was placed, using lateral view fluoroscopy to make sure that it was within the margin of the sacrum on the ileum, advanced across the SI joint using inlet and outlet view fluoroscopy to confirm that it was behind the anterior margin of the sacrum and short of the foraminal line. Sequential dilation, measurement, advancement of the wire and sequential drilling and tapping were performed and a 2nd and 3rd 11.5 diameter device of the appropriate length was placed. Inlet, outlet and lateral view fluoroscopy was performed to confirm good position of all 3 devices which was confirmed. The wound was then copiously irrigated with bacitracin irrigation all bleeding stopped with bipolar and Bovie cautery and Gelfoam thrombin powder. The wound was then closed in layered fashion with 3-0 Vicryl interrupted sutures in the dermis and a running 4-0 Monocryl subcuticular stitch and the skin was dressed with a dressing was applied. The patient was allowed to wake up in the operating room was taken to the recovery room in stable condition. There were no immediate complications of this operation. All counts were reported correct at the end of the case. Blood loss was 25 cc. The patient was neurologically at her baseline postoperatively. Estimated Blood Loss 25 Complications None Condition Stable Disposition PACU [facility] Billing Surgery - Charge Forward: Surgery Billing Please be advised this is a medical document. It is intended for [id number] communication. It is written in medical language and may contain unfamiliar abbreviations or verbiage. Medical documents are intended to carry relevant information, facts as evident, and the clinical opinion of the practitioner at the time of the encounter. This report may have been done utilizing a voice recognition system. Attempts have been made to correct errors. However, there may be uncorrected grammatical, spelling, and recognition errors present. The file time of this note does not necessarily represent the time the patient was seen. Report Initialized date/time: Taran Ramirez MD 03/15/25 / 2460 Electronically signed by: Taran Ramirez MD 03/15/25 [id number]
== END 2025-03-09 14:08 | disposition home or self-care (01) ==
LOC: ANHSURGERY 06:31 → ANH3MEDSUR 11:55
PROVIDERS: PCP Family Medicine; Visit Provider Neurological Surgery
PROC: (CPT 27280; principal; 2025-03-07 08:30)
DX: M46.1 Sacroiliitis, not elsewhere classified (principal); I10 Essential (primary) hypertension; E78.2 Mixed hyperlipidemia; I48.0 Paroxysmal atrial fibrillation; K21.9 Gastro-esophageal reflux disease without esophagitis; M79.7 Fibromyalgia; F41.9 Anxiety disorder, unspecified; F32.A Depression, unspecified; E16.2 Hypoglycemia, unspecified; E87.1 Hypo-osmolality and hyponatremia; M06.09 Rheumatoid arthritis without rheumatoid factor, multiple sites; G25.81 Restless legs syndrome; D64.9 Anemia, unspecified; M26.609 Unspecified temporomandibular joint disorder, unspecified side; R06.81 Apnea, not elsewhere classified; G47.10 Hypersomnia, unspecified; R00.9 Unspecified abnormalities of heart beat; M47.892 Other spondylosis, cervical region; M47.896 Other spondylosis, lumbar region; L20.9 Atopic dermatitis, unspecified; R00.1 Bradycardia, unspecified; I47.10 Supraventricular tachycardia, unspecified; Z79.51 Long term (current) use of inhaled steroids; Z79.620 Long term (current) use of immunosuppressive biologic; Z79.82 Long term (current) use of aspirin; Z79.1 Long term (current) use of non-steroidal anti-inflammatories (NSAID); Z98.890 Other specified postprocedural states; Z98.51 Tubal ligation status; Z98.891 History of uterine scar from previous surgery; Z98.1 Arthrodesis status; Z95.0 Presence of cardiac pacemaker; Z95.818 Presence of other cardiac implants and grafts; Z96.82 Presence of neurostimulator; Z86.718 Personal history of other venous thrombosis and embolism; Z86.73 Personal history of transient ischemic attack (TIA), and cerebral infarction without residual deficits; Z86.79 Personal history of other diseases of the circulatory system; Z80.49 Family history of malignant neoplasm of other genital organs; Z80.1 Family history of malignant neoplasm of trachea, bronchus and lung; Z80.8 Family history of malignant neoplasm of other organs or systems
CPT/HCPCS: 27279; 36415; 72190; 86850; 86900; 86901; 97116; 97161; 97165; 97530; 97535; 99199; A9270; C1713; J1100; J1171; J1200; J2003; J2004; J2250; J2270; J2405; J2704; J3010; J3373; J3480; J7120

== ENCOUNTER 2025-03-14 13:47 | Outpatient (CLI) | payer MEDICARE, MEDICAID, SELFPAY ==
--- OUTSIDE RECORDS SUMMARY | 2010-02-26 04:30 | XMS_ITS | Continuity of Care Document ---
Author Organization [facility] Address [address] [place] [address] [address] [place] [address] Phone Care Team Providers Care Director Skills Name Role Phone Anthony Gutierrez Unavailable Unavailable [...] Providers Copied on Encounter Office/outpat ient Visit, [facility], [address] [place] [address] [address], [place], [place], [id number], [place] tel:[phone] SEC [facility] No Information 0 0 Krishnasamy Anthony. [address]21 [facility] 102, [place], [address], [place]. tel:[phone] Office/outpat ient Visit, [facility], [address] [place] [address] [address], [place], [id number], [place] tel:[phone] [facility] [place] No Information 0 0 Krishnasamy Anthony. [address] [facility] [place] [address], [place], [place], [facility], [place]. tel:[phone] Office/outpat ient Visit, Est [facility] Eye [facility], [address] [place] [address] [address], [place], [place], [address], [place] tel:[phone] [facility] No Information Fe-2 3-201 0 Krishnasamy Anthony. [address] [facility] [place] [address], [place], [facility], [place]. tel:[phone] [facility] Eye [facility], [address] [place] [address] [address], [place], [place], [address], [place] tel:[phone] SEC [facility] No Information Jan-3 1-200 9 Krishnasamy Anthony. [facility] 102, [place], [facility], [place]. tel:[phone] [facility], [address] [place] [address] [address], [place], [place], [address], [place] tel:[phone] SEC [facility] No Information You-2 2-200 9 Krishnasamy Anthony. [address] [place], [place] [address]ate [place] [address], [place], [facility], [place]. tel:[phone] [facility], [address] [place] [address] [address], [place], [place], [address], [place] tel:[phone] [facility] [place] No Information May-0 8-200 9 Krishnasamy Anthony. [facility] [place] [address], [place], [facility], [place]. tel:[phone] [facility], [address] [place] [address], [place], [place], [address], [place] tel:[phone] SEC [facility] No Information Apr-2 8-200 7 Montes OD Simone. [address] [place] [address], [place], [facility], [place]. tel:[phone] Family History Family Member Type Diagnosis Age At Onset No Information Payers Payer name Insurance type Covered constitution party ID Authoriza tion(s) Medicare [facility] [id number] Medicaid [facility] [id number] Social History Type Description Quantity Date Captured [...]
--- OUTSIDE RECORDS SUMMARY | 2024-08-23 09:45 | XMS_ITS | Continuity of Care Document ---
Author Organization [facility] Address [address] [facility] [address] [place] [address] Phone Care Team Providers Care Director Of Blood Name Role Phone Nayely OD OD, Denise Unavailable Unavai lable Allergies, Adverse Reactions, Alerts Substance Reaction Status Criticality storax Active No Information methyl salicylate Active No Informa tion gum mastic Active No Information alcohol Active No Information PROPRANOLOL HCL Active No Informati on meclizine Active No Information PROCHLORPERAZINE MALEATE Active No Information PROCHLORPERAZINE EDISYLATE Active N o Information prochlorperazine Active No Informat ion imipramine Active No Information PROPOXYPHENE HCL Active No Informat ion PROPOXYPHENE NAPSYLATE Active No In formation acetaminophen Active No Information OXYCODONE HCL Active No Information acetaminophen Active No Information clarithromycin Active No Informatio n CEFUROXIME AXETIL Active No Informa tion DIPHENHYDRAMINE HCL Active No Infor mation PENICILLIN Active No Information WARNIN allergy(ies) could not be collected because the type is not supported. Please contact the source practice for further details. Medications Medication Instructions Dosage Effective Dates (start - stop) Status Comments CYMBALTA (unknown strength) take 1 capsule (20MG) by oral route 2 times every day Not Available - Active gabapentin (unknown strength) Not Available - Active MORPHINE SULFATE ER (unknown strength) take 1 capsule by oral route every 12 hours Not Available - Active CELECOXIB (unknown strength) take 2 capsule by oral route 2 times every day Not Available - Active warfarin (unknown strength) Not Available - Active Albuterol inhaler PRN (unknown strength) Not Available - Active ROPINIROLE HCL (unknown strength) take 1 tablet by oral route 3 times every day Not Available - Active rosuvastatin (unknown strength) Not Available - Active BUPRENORPHINE (unknown strength) apply 1 patch by transdermal route every 7 days Not Available - Active METHOTREXATE (unknown strength) inject 0.5 milliliter by intramuscular route every week Not Available - Active montelukast 4 mg oral granules in packet - Active PROMETHAZINE HCL (unknown strength) inject 0.25 milliliter by intramuscular route every 4 hours as needed Not Available - Active Nitro-Bid 2 % transdermal ointment apply 1 inch by transdermal route every 8 hours and remove at bedtime 15 MG - Active Voltaren Arthritis Pain 1 % topical gel apply 2 gram by topical route 4 times every day to the affected area(s) 2.00 gram - Active meloxicam 7.5 mg tablet take 1 tablet by oral route every day 7.5 MG - Active Lopressor HCT 50 mg-25 mg tablet take 1 tablet by oral route every day - Active Klor-Con 10 mEq tablet,extended release take 2 tablet by oral route 2 times every day with food 20 MEQ - Active hydroxyzine HCl 25 mg tablet take 1 tablet by oral route 4 times every day 25 MG - Active azelastine 137 mcg (0.1 %) nasal spray aerosol spray 2 spray by intranasal route 2 times every day in each nostril - No Longer Active Coumdain (unknown strength) Not Available - No Longer Active sucralfate (unknown strength) Not Available - No Longer Active AZELASTINE HCL (unknown strength) spray 2 spray by intranasal route 2 times every day in each nostril Not Available - No Longer Active DICLOFENAC SODIUM (unknown strength) instill 1 drop by ophthalmic route 4 times every day into affected eye(s) beginning within 15 minutes after surgery Not Available - No Longer Active folic acid (unknown strength) Not Available - No Longer Active Nucynta 50 mg tablet take 1 tablet by oral route every 4 - 6 hours as needed 50 MG - No Longer Active Phenergan 25 mg/mL injection solution inject 1 milliliter by intravenous route every 4 hours as needed 25 MG - No Longer Active fluocinonide 0.05 % topical cream apply by topical route 2 times every day to the affected area(s) 0.00 - No Longer Active Procedures Procedure Date OFFICE/OUTPATIENT VISIT, EST OFFICE/OUTPATIENT VISIT, EST OFFICE/OUTPATIENT VISIT, EST REFRACTION Medicare OFFICE/OUTPATIENT VISIT, EST REFRACTION [facility] OFFICE/OUTPATIENT VISIT, EST OFFICE/OUTPATIENT VISIT, EST REFRACTION [facility] OFFICE/OUTPATIENT VISIT, EST REFRACTION MEDICARE OFFICE/OUTPATIENT VISIT, EST REFRACTION OFFICE/OUTPATIENT VISIT, EST REFRACTION MEDICARE OFFICE/OUTPATIENT VISIT, NEW OFFICE/OUTPATIENT VISIT, EST OFFICE/OUTPATIENT VISIT, EST REFRACTION MEDICARE OFFICE/OUTPATIENT VISIT, EST OFFICE/OUTPATIENT VISIT, EST OFFICE/OUTPATIENT VISIT, EST OFFICE/OUTPATIENT VISIT, NEW CORNEAL TOPOGRAPHY REFRACTION Advance Directives Directive Yes / No Effective Date File Name No Information Encounters Encounter Description Practice Location Reason(s) For Visit Diagnoses Date Provider Providers Copied on Encounter OFFICE/OUTPA TIENT VISIT, EST [facility], [address] [facility] [address], [place], [place], [id number], [place] tel:[phone] [facility] flash of light OS (chief complaint) Age-related nuclear cataract, bilateralTear film insufficiency of bilateral lacrimal glandsOther vitreous opacities, bilateral Aug-0 5 Derheimer OD Denise. [address], [address], [place], [place], [id number], [place]. tel:[phone] Referring Provider: Tom Sapp, [address], [place], [address]. tel:[phone] OFFICE/OUTPA TIENT VISIT, EST [facility], [address] [place] [address], [id number], [place] tel:[phone] [facility] Pain OS (chief complaint) Left eye painAge-relat ed nuclear cataract, bilateralOthe r vitreous opacities, bilateralTear film insufficiency of bilateral lacrimal glands Apr-0 4-202 4 Krishnasamy Anthony. [address], [address], [place], [place], [id number], [place]. tel:[phone] Referring Provider: Tom Sapp, [address], [place], [address]. tel:[phone] OFFICE/OUTPA TIENT VISIT, EST [facility], [address] [place] [address], [id number], [place] tel:[phone] [facility] blurry vision (chief complaint) Age-related nuclear cataract, bilateralTear film insufficiency of bilateral lacrimal glandsOther vitreous opacities, bilateralDipl opiaHypermetr opia, bilateral Oct-2 4-202 3 Krishnasamy Anthony. [address], [address], [place], [place], [id number], [place]. tel:[phone] Referring Provider: Tom Sapp, [address], [place], [address]. tel:[phone] OFFICE/OUTPA TIENT VISIT, EST [facility], [address] [place] [address], [id number], [place] tel:[phone] [facility] blurry VA (chief complaint) Tear film insufficiency of bilateral lacrimal glandsOther vitreous opacities, bilateralAge- related nuclear cataract, bilateralDipl opiaHypermetr opia, bilateral Mar-1 0-202 2 Krishnasamy Anthony. [address], [address], [place], [place], [id number], [place]. tel:[phone] Referring Provider: Tom Sapp, [address], [place], [address]. tel:[phone] OFFICE/OUTPA TIENT VISIT, EST [facility], [address] [place] [address], [id number], [place] tel:[phone] [facility] shingles (chief complaint) Herpes zoster without complicationT ear film insufficiency of bilateral lacrimal glands Apr- 1 Krishnasamy Anthony. [address], [place], [place], [id number], [place]. tel:[phone] Referring Provider: Tom Sapp, [address], [place], [address]. tel:[phone] OFFICE/OUTPA TIENT VISIT, EST [facility], [address] [place] [address], [id number], [place] tel:[phone] [facility] blurry (chief complaint) DiplopiaAge-r elated nuclear cataract, bilateralTear film insufficiency of bilateral lacrimal glandsOther vitreous opacities, bilateralHype rmetropia, bilateral Nov- 9 Krishnasamy Anthony. [address], [address], [place], [place], [id number], [place]. tel:[phone] Referring Provider: Anthony Gutierrez, [address], [place], [address]. tel:[phone] OFFICE/OUTPA TIENT VISIT, EST [facility], [address] [place] [address], [id number], [place] tel:[phone] [facility] blurry vision (chief complaint) Tear film insufficiency of bilateral lacrimal glandsOther vitreous opacities, bilateralDipl opiaHypermetr opia of both eyes Oct-3 0- 8 Krishnasamy Anthony. [address], [address], [place], [place], [id number], [place]. tel:[phone] Referring Provider: Anthony Gutierrez, [address], [place], [address]. tel:[phone] OFFICE/OUTPA TIENT VISIT, EST [facility], [address] [place] [address], [id number], [place] tel:[phone] [facility] blurry vision (chief complaint) dry eyes (chief complaint) DiplopiaOther vitreous opacities, bilateralTear film insufficiency of bilateral lacrimal glandsHyperme tropia of both eyes Dec-2 7 7 Krishnasamy Anthony. [address], [address], [place], [place], [id number], [place]. tel:[phone] Referring Provider: Anthony Gutierrez, [address], [place], [address]. tel:[phone] OFFICE/OUTPA TIENT VISIT, EST [facility], [address] [place] [address], [id number], tel:[phone] [facility] blurry vision (chief complaint) Reflex sympathetic dystrophy, unspecifiedTe ar film insufficiency , unspecifiedHy permetropia of both eyesOther vitreous opacities, bilateralDipl opia Oct-0 5-201 6 Krishnasamy Anthony. [address], [address], [id number], [place]. tel:[phone] Referring Provider: Anthony Gutierrez, [address], [place], [address]. tel:[phone] OFFICE/OUTPA TIENT VISIT, NEW [facility], [address] [place] [address], [id number], [place] tel:[phone] [facility] blurry vision (chief complaint) Hypermetropia Tear film insufficiency , unspecifiedOt her vitreous opacitiesDipl opiaReflex sympathetic dystrophy, unspecified Sep-2 8-201 5 Krishnasamy Anthony. [address], [address], [id number], [place]. tel:[phone] Referring Provider: Anthony Gutierrez, [address], [place], [address]. tel:[phone] OFFICE/OUTPA TIENT VISIT, EST [facility], [address] [place] [address], [place], [place], [id number], [place] tel:[phone] [facility] Consult [facility] Office Tear film insufficiency , unspecifiedRe flex sympathetic dystrophy, unspecifiedOt her vitreous opacitiesHype rmetropiaDipl opia Feb- 4 Krishmargaret Anthony. [address], [address], [place], [place], [address], [place]. tel:[phone] Referring Provider: Anthony Gutierrez, [address], [place], [address]. tel:[phone] OFFICE/OUTPA TIENT VISIT, EST [facility], [address] [place] [address], [place], [place], [id number], tel:[phone] [facility] Office Other vitreous opacitiesTear film insufficiency , unspecifiedDi plopiaHyperme tropia Mar- 3 Krishnasnina Anthony. [address], [address], [place], [place], [id number], [place]. tel:[phone] Referring Provider: Anthony Gutierrez, [address], [place], [address]. tel:[phone] OFFICE/OUTPA TIENT VISIT, EST [facility], [address] [place] [address], [id number], [place] tel:[phone] [facility] Tear film insufficiency , unspecifiedRe flex sympathetic dystrophy, unspecifiedDi plopiaHyperme tropia Sep- 3 Krishnasnina Anthony. [address], [address], [place], [place], [id number], [place]. tel:[phone] Referring Provider: Anthony Gutierrez [address], [place], [address]. tel:[phone] OFFICE/OUTPA TIENT VISIT, EST [facility], [address], [id number], tel:[phone] [facility] Tear film insufficiency , unspecifiedDi plopia 2 Brenda Cruz. [address], [address], [address], . tel:[phone] Referring Provider: Anthony Gutierrez, [address], [place], [address]. tel:[phone] OFFICE/OUTPA TIENT VISIT, NEW [facility], [id number] [place] [address], [place], [place], [id number], tel:[phone] [facility] DiplopiaHeada cheHypermetro tierra 1 Brenda Cruz. [address], [place], [place], [address], . tel:[phone] Family History Family Member Type Diagnosis Age At Onset Son Problem (finding) Lazy eye Payers Payer name Insurance type Covered republican ID Authorjosea tirin(s) MEDICARE OF [place] [id number] [place] [id number] Social History Type Description Quantity Date Captured Comments Alcohol Use Details No Caffeine Use Details No Tobacco Use Status Current non-smoker Smoking Status Never smoker Non-Smoking Tobacco Use Details : No Details Available : No Details Available Sex Female Vital Signs Date / Time: Height Weight BMI Pulse Rate Blood Pressure Temperature Respiratory Rate Body Surface Area Head Circumference Head Circ. Percentile Wt./Earl. Percentile BMI percentile Pulse Ox Inhaled Ox 2:27 PM 68.00 in 81.647 kg (180.00 lbs) 27.3 7 kg/m eter (2) Chief Complaint And Reason For Visit From encounter dated '08/23/2024 14:45'. flash of light OS (chief complaint). Description: The 58 year old female presents for evaluation offlash of light OS. Patient states Thursday she saw flicker of light OS more temporally feels like shethought she was going to run into post. . 1 week prior she saw black spot in vision OS. Patient hadpain when it happened but no pain since then, eye just feel sore. Patient is not taking any gtts. Patient sees oscar richardson and [facility]. Reason For Referral Reason For Referral No Information History Of Present Illness Encounter Date Complaint History Of Prese nt Illness flash of light OS The 58 year ol d female presents for evaluation of flash of light OS. Patient states Thursday she saw flicker of light OS more temporally feels like she thought she was going to run into post. . 1 week prior she saw black spot in vision OS. Patient had pain when it happened but no pain since then, eye just feel sore. Patient is not taking any gtts. Patient sees oscar richardson and [facility]. Pain OS The 58 year old female presents for evaluation of Pain OS.Patient reports 09/25 and due to having RSD her trauma has spread to her face and her eye. She is experiencing burning fire sensation OS duration one week, progressively getting worse. Associated symptoms is tearing. She is scared not knowing if this could affect her vision. Pt denies any use of gtts. blurry vision The 57 year old female presents for evaluation of blurry vision OU. Patient states within the last couple weeks she noticed she cant tell the difference between her DV and NV in her progressive, she also states she noticed within the last 6 months her eyes started twitching she relates it with her body telling her shes over doing it. She also mentioned shes noticed her eyes being dryer and knows she needs to use gtts, states she'd start using them. She feels as if when i put eyes together with new rx she was only looking out OD and was saying her eye felt numb, before i put in proparacaine. blurry VA The 56 year old female presents for evaluation of blurry VA in the right eye and left eye. It affects OU. The symptom is constant. The condition is moderate. She would like a new glasses RX today. shingles The 55 year old female presents for evaluation of shingles It started about 1 week(s) ago. It occurs all the time. Patient was diagnosed with Shingles on 10/23.Patients left side of her face, eyelid, questionable nose. Patient states that she has had no sores just nerve pain.Patient states that her eyeball hurts.Was put on Valtrex 1000mg TID po. blurry The 53 year old female presents for evaluation of blurry in the right eye and left eye. It started about 4 month(s) ago. The symptom is constant. The condition is significant. Pt reports vision being blurry, she Dr Mariana Richardson in 2 days for Rx with prism. Pt would like Rx today. Pt denies using any drops. blurry vision The 52 year old female presents for evaluation of blurry vision OU. Patient reports over the last several months OD>OS seems to be getting progressively worse. Noticing at all distances. Especially when driving. Has an appt w/ Dr. Richardson soon. Would like an update in glasses today if needed. blurry vision The 51 year old female presents for evaluation of blurry vision OU at [facility]. Pt saw Dr Nai Sotelo at [facility] for prism. Pt did not update Rx, pt would like an Rx today and keep Dr Deluna prism. dry eyes The patient is p resent for evaluation of dry eyes in the right eye and left eye. Pt reports discomfort to both eyes and occasional sharp pain to OS. Pt uses ATs PRN for relief blurry vision The 50 year old female presents for evaluation of blurry vision in the right eye and left eye. Patient reports her vision has gotten worse over the past year. Patient states both distance and near are blurry with glasses. Patient states eyes are hurting lately, especially at night. Uses drops, possibly Visine OU - gets short term relief. blurry vision The 49 year old female presents for evaluation of blurry vision in the right eye and left eye. It started about 1 year(s) ago. The symptom is constant. The condition is not any better.Did not bring in current med list.Pt says she currently has a very dangerous blood clot near spine. Functional Status Date Functional Assessmen t No Information Instructions Date Instruction Additional Infor ivan Impression/Plan Related to Other vitreous opacities, bilateral Impression/Plan Related to Age-r elated nuclear cataract, bilateral Impression/Plan Related to Tear film insufficiency of bilateral lacrimal glands Impression/Plan Related to Tear film insufficiency of bilateral lacrimal glands Impression/Plan Related to Other vitreous opacities, bilateral Impression/Plan Related to Age-r elated nuclear cataract, bilateral Impression/Plan Related to Left eye pain Impression/Plan Related to Hyper metropia, bilateral Impression/Plan Related to Diplo tierra Impression/Plan Related to Other vitreous opacities, bilateral Impression/Plan Related to Tear film insufficiency of bilateral lacrimal glands Impression/Plan Related to Age-r elated nuclear cataract, bilateral Impression/Plan Related to Diplo tierra Impression/Plan Related to Hyper metropia, bilateral Impression/Plan Related to Tear film insufficiency of bilateral lacrimal glands Impression/Plan Related to Other vitreous opacities, bilateral Impression/Plan Related to Age-r elated nuclear cataract, bilateral Impression/Plan Related to Tear film insufficiency of bilateral lacrimal glands Impression/Plan Related to Herpe s zoster without complication Impression/Plan Related to Hyper metropia, bilateral Impression/Plan Related to Tear film insufficiency of bilateral lacrimal glands Impression/Plan Related to Other vitreous opacities, bilateral Impression/Plan Related to Diplo tierra Impression/Plan Related to Age-r elated nuclear cataract, bilateral Impression/Plan Related to Diplo tierra Impression/Plan Related to Other vitreous opacities, bilateral Impression/Plan Related to Tear film insufficiency of bilateral lacrimal glands Impression/Plan Related to Hyper metropia of both eyes Impression/Plan - Up dated Mrx with PrismRTO 1 yr Complete Exam with [facility] Related to Diplopia Impression/Plan - Al l signs and risks of retinal detachment and tears were discussed in detail. Patient instructed to call office immediately if any symptoms noted. Related to Other vitreous opacities, bilateral Impression/Plan - Th ere is no evidence of permanent changes to the cornea. Explained condition does not have a cure and will need artificial tears for maintenance. Related to Tear film insufficiency of bilateral lacrimal glands Impression/Plan - Ne w Rx given today but does not include the prism. Check with [facility] regarding prism OU Related to Hypermetropia of both eyes RTO 1 year with [facility] Related to Re flex sympathetic dystrophy, unspecified Follow up - RTO 1 year with [facility] R elated to Reflex sympathetic dystrophy, unspecified Impression/Plan - Di scussed treatment options with patient. Patient instructed to use artificial tears as needed. samples given Will continue to observe condition and or symptoms. Related to Tear film insufficiency, unspecified Impression/Plan - Di scussed diagnosis in detail with patient. Discussed signs and symptoms of PVD/floaters. Discussed signs and symptoms of retinal detachment. Reassured patient of current condition and treatment. Will continue to observe condition and or symptoms. Related to Other vitreous opacities, bilateral Impression/Plan - In termittent secondary to Occular surface vs RSD Related to Diplopia Impression/Plan - Ne w Rx given today but does not include the prism. Check with [facility] regarding prism OU Related to Hypermetropia of both eyes Impression/Plan - Co ntinue care with primary MD Related to Reflex sympathetic dystrophy, unspecified Impression/Plan - Ne w glasses Rx was not given today. Related to Diplopia Impression/Plan - Gl asses Rx not given today. Current glasses w prism. Related to Hypermetropia Impression/Plan - Li shira contributes to diplopia. Continue ATs OU QD. Related to Tear film insufficiency, unspecified Impression/Plan - Al l signs and risks of retinal detachment and tears were discussed in detail. Patient instructed to call the office immediately if any symptoms noted. Related to Other vitreous opacities Impression/Plan Related to Refle x sympathetic dystrophy, unspecified Follow up - Return i n 1 year with for Complete Exam. Reflex sympathetic d ystrophy, unspecified Related to Reflex sympathetic dystrophy, unspecified Other vitreous opaci ties OD - Discussed diagnosis in detail with patient. Discussed signs and symptoms of retinal detachment. Discussed signs and symptoms of PVD/floaters. Will continue to observe condition and or symptoms. Patient instructed to call if condition gets worse. Related to Other vitreous opacities Tear film insufficie ncy, unspecified OU - Dry eyes account for the patient's complaints. There is no evidence of permanent changes to the cornea. Explained condition does not have a cure and will need artificial tears for maintenance. Related to Tear film insufficiency, unspecified Diplopia- likely due to dry eye Related to Diplopia Hypermetropia OU - G lasses Rx w/ prism. Related to Hypermetropia Tear film insufficie ncy, unspecified OU - Discussed diagnosis in detail with patient. Discussed treatment options with patient. Patient instructed to use artificial tears as needed. Related to Tear film insufficiency, unspecified Diplopia OU Related to Diplo tierra Hypermetropia OU Related to Hype rmetropia - Return in PRN Related to Vitre ous Floaters Vitreous Floaters OD - Discussed diagnosis in detail with patient. No treatment is required at this time. Educational materials provided:Flashers/floaters. Discussed signs and symptoms of PVD/floaters. Related to Vitreous Floaters Reflex sympathetic d ystrophy Reflex sympathetic dystrophy, unspecified Related to Reflex sympathetic dystrophy, unspecified Dry Eye Syndrome, OU - mild - Discussed diagnosis in detail with patient. Patient instructed to use artificial tears as needed. Related to Dry Eye Syndrome Diplopia, - resolved w/ prisms - Discussed diagnosis in detail with patient. Will continue to observe condition and or symptoms. Related to Diplopia Hypermetropia - If p ersistent problems, consider cycloplegic refraction, folloe up with Dr Pugh Related to Hypermetropia Dry Eye Syndrome, OU - mild - Discussed diagnosis in detail with patient. Patient instructed to use artificial tears as needed. 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 Patient will see Smita Richardson (facilities manager) @ [facility] for prisms/glasses. 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 Patient will see Smita Richardson (facilities manager) @ [facility] 12/24/2010 for motility exam and measurements for glasses, +/- prisms. Related to Headaches Assessments Type Assessment Date assessment Age-related nuclear cataract, bi lateral impression Age-related nuclear cataract, bi lateral: H25.13 assessment Tear film insufficiency of bilat eral lacrimal glands impression Tear film insufficiency of bilat eral lacrimal glands: H04.123 assessment Other vitreous opacities, bilate ral impression Other vitreous opacities, bilate ral: H43.393 Patient Care Teams Name Effective Dates (start - stop) Status Members No Information
--- OUTSIDE RECORDS SUMMARY | 2024-09-29 02:30 | XMS_ITS ---
Author Organization [facility] Address [address] [place], [place] [id number] Care Team Providers Care Burn Crew Member Name Role Phone CATHI SILVA Unavailable [phone] Tom Paz Unavailable Unavailable CATHI BURNS Unavailable [phone] REASON FOR VISIT possible stress fracture Encounters Encounter Location Date Provider Diagnosis [facility] [address] [place] [address] [place], [place] [id number] 09/29/2024 CATHI BURNS Plan Of Treatment No Information Progress Notes * ALONDRANaye ALEJANDREDOB:1965 ( 59 yo F)Acc No.[id number]:09/29/2024 Patient: Naye RAI Provider: Sammi Burns DPM :1965 A ge:59 Y S ex:Female Date:09/29/2024 Address:[address] [place] [address], [address], [place], [place] Subjective: * Chief Complaints: * 1 . Possible stress fracture. * Medical History: Objective: * Vitals: Assessment: Plan: * Treatment: * Billing Information: * Visit Code: * Procedure Codes: * Electronic signature of CATHI BURNS DPM on 03/14/2025 at 01:55 PM CDT Sign off status: Pending * Provider: Sammi Burns DPM Date: 0 09/29/2024 Generated for Mikaela alcaraz/Sheng/Iris on: 0 03/14/2025 01:55 PM CDT
--- OUTSIDE RECORDS SUMMARY | 2024-10-24 04:40 | XMS_ITS ---
Author Organization [facility] Address [address] [place], [place] [address] Care Team Providers Care Wax Ball Molder Name Role Phone CATHI SILVA Unavailable [phone] Tom Paz Unavailable Unavailable REASON FOR VISIT *Callus Care Encounters Encounter Location Date Provider Diagnosis [facility] [address] [place], [place] [id number] 10/24/2024 CATHI SILVA Plan Of Treatment No Information Progress Notes * ALONDRANaye ALEJANDREDOB:1965 ( 59 yo F)Acc No.[id number]:10/24/2024 Patient: Naye RAI Provider: Sammi Silva DPM :1965 A ge:59 Y S ex:Female Date:10/24/2024 Address:[address] [place] [address], [facility] [address], [place] Subjective: * Chief Complaints: * 1 . *Callus Care. * Medical History: Objective: * Vitals: Assessment: Plan: * Treatment: * Billing Information: * Visit Code: * Procedure Codes: * Electronic signature of CATHI SILVA DPM on 03/14/2025 at 01:54 PM CDT Sign off status: Pending * Provider: Sammi Silva DPM Date: 0 10/24/2024 Generated for Printi ng/Faxing/eTransmitting on: 0 03/14/2025 01:54 PM CDT
--- NOTE | ~2025-03-14 | CT_ITS ---
EXAMINATION: CT pelvis wo con COMPARISON: None HISTORY: Arthrodesis status. RECENT SI JOINT SURGERY TECHNIQUE: Axial images were obtained without IV contrast. Sagittal, coronal reconstruction images were obtained from the axial views. CT scan performed using dose optimization techniques including the following automated exposure control; adjustment of mA and/or kV; use of iterative reconstruction technique. Automatic exposure control was used to reduce radiation dose. Permanent radiation dose record is archived to PACS. FINDINGS: Postsurgical changes noted in the visualized lumbar spine, the visualized hardware is intact. There is fusion noted of the sacroiliac joints bilaterally, the visualized hardware is intact. Moderate degenerative changes of the symphysis pubis. Minimal degenerative changes of the acetabular femoral joints bilaterally. There is no fracture or dislocation. There is no avascular necrosis. There are no areas of osseous destruction appreciated. No joint effusions are identified The soft tissues are unremarkable. Partially imaged IVC filter. Uterus is atrophic. No adnexal mass. No free fluid. Moderate fecal content. Visualized bladder unremarkable. IMPRESSION: 1. Postsurgical changes. No acute fracture or dislocation. Reviewed, dictated and finalized at location A.
--- OUTSIDE RECORDS SUMMARY | 2025-03-14 13:54 | XMS_ITS | Patient Health Record ---
Author Organization [facility] Address [address] [place] [address] Care Team Providers Care Appeals And Generalist Clerk Name Role Phone Tamar Rene Unavailable [phone] Reason For Referral No Information Medications Medication [...] CALCIUM 2 % TOPICAL CREAM *Reorder from [employer] for eRx and Interaction Alerts* Active Creon 36,000-114,000- 180,000 unit Capsule Delayed Release Particles Oral *Pick strength-form from [facility] for eRX* Active Flowflex COVID-19 Ag Home Test Kit In Vitro *Reorder from [facility] for eRx and Interaction Alerts* Active [...] mcg/hour Patch Weekly Transdermal *Pick strength-form from [facility] for eRX* Active Colestipol HCl 1 GM Tablet Oral Active Azelastine HCl 137 MCG/SPRAY Solution Nasal Active Simponi 50 mg/0.5 mL Solution Auto-injector Subcutaneous Activ e predniSONE 20 MG Tablet Oral Active Ibuprofen 600 MG Tablet Oral Active Warfarin Sodium 3 MG Tablet Oral Active ENBREL SURECLICK 50 MG/ML (1 ML) SUBCUTANEOUS PEN INJECTOR *Reorder from [facility] for eRx and Interaction Alerts* Active Metoprolol Tartrate 50 MG Tablet Oral Active Doxycycline Hyclate 100 MG Capsule Oral Active ProAir HFA 108 (90 Base) MCG/ACT Aerosol Solution Inhalation Act antionette hydrOXYzine HCl 25 MG Tablet Oral Active AZELASTINE 205.5 MCG (0.15 %) NASAL SPRAY *Reorder from [facility] for eRx and Interaction Alerts* Active Buprenorphine 5 mcg/hour Patch Weekly Transdermal *Pick strength-form from [facility] for eRX* Active rOPINIRole HCl 1 [...] 100MG Tablet Therapy Pack Oral *Reorder from [facility] for eRx and Interaction Alerts* Active methylPREDNISolone 4 MG Tablet Therapy Pack Oral Active Methotrexate 2.5 MG Tablet Oral Active predniSONE 5 MG Tablet Oral Active Nitrofurantoin Monohyd Macro 100 MG Capsule Oral Active Nystatin 210536 UNIT/GM Cream External Active Folic Acid 1 MG Tablet Oral Active Plan Of Treatment No Information Insurance Providers Payer Name Payer Address Payer Phone Subscriber Number Group Number Insured Name Patient Relationship to Insured Coverage Start Date Coverage End Date Medicare-I l Medicare [address] [place] [address] [id number] CHASIDY CANTU Self - patient is the insured Medicaid-I l Medicaid [address] [address] [place] [address] [id number] CHASIDY CANTU Self - patient is the insured
--- OUTSIDE RECORDS SUMMARY | 2025-03-14 13:55 | XMS_ITS | Encounter Summary ---
Author Organization [facility] Address [address] [place] [address] Phone Care Team Providers Care Clinical Lab Technologist Name Role Phone Tom Paz MD Primary Care Provider [phone] Tab Taylor MD Unavailable [phone] Favian Caceres MD Unavailable [phone] Encounter Details Date Type Department Care Team (Latest Contact Info) Description 01/24/2025 Results Follow-Up [facility] [address] [place] [phone] Claudia Cristobal, SIMON [address] [place] [address] CBC with auto differential, Comprehensive metabolic panel Social History Tobacco Use Types Packs/Day Years Used Date Smoking Tobacco: Never Passive Smoke Exposure: Past Smokeless Tobacco: Never Alcohol Use Standard Drinks/Week Comments No 0 (1 standard drink = 0.6 oz pur e alcohol) [facility] Utilities Answer Date Recorded In the past 12 months has [employer] electric, gas, oil, or water company threatened [...] any clubs o r organizations such as gnosticism groups, unions, fraternal or athletic groups, or [...] on file 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
--- OUTSIDE RECORDS SUMMARY | 2025-03-14 13:55 | XMS_ITS | Patient Health Record ---
Author Organization [facility] Address [address] [place], [place] [id number] Care Team Providers Care Refrigeration Plant Cork Insulator Name Role Phone CATHI SILVA Unavailable [phone] Tom Paz Unavailable Unavailable CATHI BYNUM Unavailable [phone] Allergies Allergen (clinical drug ingredient) Drug/Non Drug [...] Location Date Provider Diagnosis [facility] [address] [place], [place] [id number] 09/19/2024 CATHI SILVA Tinea pedis B35.3 ; Acquired keratosis [keratoderma] palmaris et plantaris L85.1 ; Metatarsalgia, right foot M77.41 ; Metatarsalgia, left foot M77.42 ; Other eczema L30.8 ; Pain in right foot M79.671 and Left foot pain M79.672 [facility] [address] [facility] [address] [place], [place] [id number] 09/21/2024 CATHI SILVA Assessments Encounter Date Diagnosis [...] erythematous, pruritic, scales or erosions between toes. Brule-type tinea pedis affects the soles and medial [...] the patient use an emollient such as [id number] Eucerin cream, Vanicream, or other lotion to [...] Date Coverage End Date Medicare Part B [facility] [address] [place] [address] [id number] Naye Hart Self - patient is the insured 0 Medical (General) History Medical History History ICD Code fibromyalgia anemia Leg/Feet cramps stroke rheumatoid arthritis Heart Disease Blood clots restless leg syndrome Back Trouble low blood pressure Surgical History Surgery Date(Month/Year) Tubal Ligation Pacemaker Hernia
--- OUTSIDE RECORDS SUMMARY | 2025-03-14 13:55 | XMS_ITS | Patient Health Record ---
Author Organization [facility] Address [address] [place], [place] [id number] Care Team Providers Care Incubator Tender Name Role Phone Jackson BRYANT, Tom Primary Care Provider [phone] Cecilia Nicole Unavailable [phone] ALLERGIES Allergen (clinical drug ingredient) Drug/Non Drug Allergy documented on EMR Reaction Allergy Type Onset Date Status Tylenol with Codeine #3 Unknown Drug Allergy [...] Allergy Active Vicodin Unknown Drug Allergy Active REASON FOR REFERRAL [...] osteoarthritis of right knee (M17.11) Active confirmed 109022704073318 Problem Closed nondisplaced fracture of acromial end of left clavicle, initial encounter (S42.035A) Active confirmed 6242237 Problem Closed nondisplaced fracture of acromial end of left clavicle with routine healing, subsequent encounter (S42.035D) Active confirmed 9994788 Problem Right hip pain (M25.551) Active confirmed Right hip pain (584535476039800) Problem Left hip pain (M25.552) Active confirmed Arthralgia of t he pelvic region and thigh (884161465) Problem Primary localized osteoarthritis of right knee (M17.11) Active confirmed Primary osteoarthritis (455209500) Problem Pes anserine bursitis (M70.50) Active confirmed [id number] PLAN OF TREATMENT Pending Test Test Name Order Date X ray : Hip, left, 2 02/24/2018 X ray : Hip, right, 2 02/24/2018 X ray : Knee, right 3 views 11/30/2017 Insurance Providers Payer Name Payer Address Payer Phone Subscriber Number Group Number Insured Name Patient Relationship to Insured Coverage Start Date Coverage End Date Medicare Services [address] [address] [place] [address] [id number] Naye Hart Self - patient is the insured 0 Medicaid [address] [place] [id number] Naye Hart Self - patient is the [...]
--- OUTSIDE RECORDS SUMMARY | 2025-03-14 13:55 | XMS_ITS | Encounter Summary ---
Author Organization [facility] Address [address] [place] [address] Care Team Providers Care Race Relations Adviser Name Role Phone Tom Paz MD Primary Care Provider [phone] Tab Taylor MD Unavailable Favian Caceres MD Unavailable Reason for Visit * Reason Onset Date Comments Scheduling Appointments 04/15/2024 Schedule patient for Imaging Genicular RFA Right (75492) and 1m follow Encounter Details Date Type Department Care Team (Late st Contact Info) Description 04/15/2024 Telephone [facility] [address] [address], [address] [place] [address] Dougie Lord MD [address] [address] Scheduling Appointments (Schedule patient for Imaging Genicular RFA Right (65426) and 1m follow ) Social History Tobacco [...] often do you attend chur ch or bahai services? 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 documented as of this encounter Visit Diagnoses Not on filedocumented in this encounter Care Teams Race Relations Adviser Relationship Specialty Start Date End Date Tom Paz MD PCP - General 09/09/16 Tab Taylor MD [address] [place] [address] Consulting Physician Cardiology 01/03/20 Favian Caceres MD [address] [place] [address] Consulting Physician Rheumatology 08/28/23 documented as of this encounter
--- OUTSIDE RECORDS SUMMARY | 2025-03-14 13:55 | XMS_ITS | Clinical Summary ---
Author Organization [facility] Address [address] [place] [address] Care Team Providers Care Hall Monitor Name Role Phone Tom Paz MD Primary Care Provider [phone] Tab Taylor MD Unavailable [phone] Favian Caceres MD Unavailable [phone] Allergies Active Allergy Reactions Criticality Noted Date [...] - blisters Etanercept Itching Low 02/24/2022 Gum Bvulzv-Djehnp-Cgzz-Alcoho l Blisters,Rash High 12/17/2021 Mastisol - blisters [...] QuantGold Assessment & Plan (07/28/2024 11:19 AM CIRCULATING PROCESS INSPECTOR): Monitor routine labs while on immunosuppressive medications. [...] QuantGold Assessment & Plan (09/22/2023 12:26 PM CIRCULATING PROCESS INSPECTOR): Monitor routine labs while on immunosuppressive medications. [...] QuantGold Assessment & Plan (09/11/2022 12:48 PM CIRCULATING PROCESS INSPECTOR): Monitor routine labs while on immunosuppressive medications. Recent 2/ labs stable. 06/2020: Neg Hep B/C 03/2021: Neg QuantGold Assessment & Plan (07/01/2022 9:25 AM CIRCULATING PROCESS INSPECTOR): Monitor routine labs while on immunosuppressive medications. [...] QuantGold Assessment & Plan (08/19/2021 2:31 PM CIRCULATING PROCESS INSPECTOR): Monitor routine labs while on immunosuppressive medications. [...] Hospitalized for total of 8 days, at [facility] and [facility]. Had CT brain/neck angio that were [...] Hospitalized for total of 8 days, at [facility] and then [facility]. Had CT brain/neck angio that were [...] 07/24/2020 Assessment & Plan (07/24/2020 12:34 PM CIRCULATING PROCESS INSPECTOR): Her greatest pain complaint at this time [...] 07/24/2020 Assessment & Plan (07/01/2022 2:12 PM CIRCULATING PROCESS INSPECTOR): Self weaned off Cymbalta 2 days ago [...] exercise. Assessment & Plan (08/27/2020 2:41 PM CIRCULATING PROCESS INSPECTOR): Fatigue with sensation of pain all over [...] exercise. Assessment & Plan (07/24/2020 12:36 PM CIRCULATING PROCESS INSPECTOR): Fatigue with sensation of pain all over [...] PT. Assessment & Plan (08/28/2020 12:26 PM CIRCULATING PROCESS INSPECTOR): Multifocal OA (hands and hips) per recent xrays. Continue Tylenol 500 mg qid. Continue PT. Assessment & Plan (07/24/2020 12:41 PM CIRCULATING PROCESS INSPECTOR): Multifocal OA (hands and hips) per recent [...] increase blood glucose, glaucoma and osteopenia with halfway use of steroids. Labs today. To return in 6 weeks for re-evaluation - this can be moved out to 3 months if joints remain stable. Assessment & Plan (07/28/2024 11:22 AM CIRCULATING PROCESS INSPECTOR): Off MTX (oral ulcers/hair thinning). Remains on [...] increase blood glucose, glaucoma and osteopenia with quality control head use of steroids. She was strongly encouraged [...] needed. Assessment & Plan (09/22/2023 12:32 PM CIRCULATING PROCESS INSPECTOR): A 09/2022 repeat left hand/wrist US demonstrated [...] needed. Assessment & Plan (09/11/2022 12:48 PM CIRCULATING PROCESS INSPECTOR): Continued 15mg MTX weekly and monthly Simponi [...] Chan. Assessment & Plan (08/06/2022 9:00 PM CIRCULATING PROCESS INSPECTOR): Has continued 15mg MTX weekly as well [...] we have no access to them through [employer]. She already had an OV scheduled for 09/02 - will re-evaluate joints at that time and consider repeat hand US if synovitis is absent/minimal on exam but she is still noting pain -to evaluate for underlying inflammation. She may require change in biologic medication. Assessment & Plan (07/01/2022 2:09 PM CIRCULATING PROCESS INSPECTOR): CDAI 37, high Off Enbrel due to [...] She is to follow up with her executive chairman soon due to low BP following her [...] increase blood glucose, glaucoma and osteopenia with halfway use of steroids. Continue 15mg MTX weekly [...] Chan. Assessment & Plan (08/19/2021 9:00 PM CIRCULATING PROCESS INSPECTOR): CDAI 25. On 15mg MTX weekly but has only taken 3 Enbrel injections so far. Just completed a medrol dose pack from her executive chairman due to inflammation around her heart (pericarditis?). [...] incontinence. Has followed up with PCP and executive chairman - started Ubrelvy for JACKSON and executive chairman is to adjust her pacemaker on 05/23. [...] pen with her during her trip to [place] (leaves and returns around the ). A letter was provided for [facility] to allow Humira to be [...] needed. Assessment & Plan (08/28/2020 12:26 PM CIRCULATING PROCESS INSPECTOR): Our workup showed an JANNET 1:160 but [...] needed. Assessment & Plan (07/24/2020 12:33 PM CIRCULATING PROCESS INSPECTOR): 54yoF referred for evaluation due to +JANNET [...] reassess. Assessment & Plan (07/06/2020 4:49 PM CIRCULATING PROCESS INSPECTOR): 54yoF referred for evaluation due to +JANNET [...] (12/13/2019): Added automatically from request for surgery [id number] SVT (supraventricular tachycardia) 12/13/2019 Overview (12/13/2019): Added automatically from request for surgery [id number] A-fib 11/24/2019 Overview (11/24/2019): Added automatically from request for surgery [id number] Laryngopharyngeal reflux (LPR) 08/04/2018 Assessment & Plan (10/20/2018 12:26 PM CDT): No longer taking the omeprazole and ranitidine as prescribed. Patient is no longer experiencing any coughing, sinonasal or throat symptoms. Assessment & Plan (08/04/2018 1:17 PM CIRCULATING PROCESS INSPECTOR): Add omeprazole 40 mg Q morning 30 [...] resume. Assessment & Plan (08/04/2018 1:11 PM CIRCULATING PROCESS INSPECTOR): Patient's chronic cough is most likely secondary [...] reactive airway disease contributing to her cough. intermediate current use of anticoagulant therapy 1 08/28/2014 Deep vein thrombosis (DVT) 06/27/2015 Hyperthyroidism 08/31/2012 Chronic adrenal insufficiency 08/30/2012 Encounters Date Type Department Care Team Description 02/24/2025 8:09 AM CDT Anesthesia Event [facility] Operating Room [address] [place] [address] Arely Hansen MD Gardner, Kari Elizabeth, NP 02/24/2025 8:05 AM CDT - 02/24/2025 8:50 AM CDT Surgery [facility] Operating Room [address]80 [place] [address] Roge Dowell MD DRUG INDUCED SLEEP ENDOSCOPY EVAL FLEX DIAG 02/24/2025 5:56 AM CDT - 02/24/2025 9:00 AM CDT Hospital Encounter [facility] Operating Room [address] [place] [address] Roge Dowell MD Obstructive sleep apnea (Primary Dx) Discharge Disposition: Discharge to home or self care 02/06/2025 11:00 AM CDT - 02/06/2025 11:59 PM CDT Hospital Encounter [facility] [address] [place] [address] Dougie Lord MD Right knee pain, unspecified chronicity (Primary Dx) Discharge Disposition: Discharge to home or self care 01/26/2025 8:20 AM CDT Office Visit [facility] Medicine ENT [address] [place] [address] Medical Office Building [address] [place] [phone] Roge Dowell MD CELINA (obstructive sleep apnea) (Primary Dx); Obstructive sleep apnea (adult) (pediatric) 01/24/2025 Results Follow-Up [facility] [address] [place] [address] Claudia Cristobal PA CBC with auto differential, Comprehensive metabolic panel 01/23/2025 10:30 AM CDT Office Visit [facility] [address] [place] [address] Claudia Cristobal PA Seronegative rheumatoid arthritis (HCC) (Primary Dx); Encounter for long-term (current) use of high-risk medication 01/23/2025 Documentation [facility] Medicine Gastroenterology [address] [facility] 12[address] [place] [address] [place] [phone] Carlie Patricia 01/19/2025 Telephone [facility] [address] [place] [address] Dougie Lord MD POST CALL 01/13/2025 Orders Only [facility] [address] [place] [address] Dougie Lord MD 01/12/2025 Telephone [facility] [address] [place] [address] Dougie Lord MD Post Procedure Pain 01/11/2025 9:36 AM CDT - 01/11/2025 11:59 PM CDT Hospital Encounter [facility] Radiology [address] [place] [address] Transient ischemic attack (TIA); Cerebrovascular disease, unspecified; Unspecified visual loss; Presence of cardiac pacemaker Discharge Disposition: Discharge to home or self care 01/11/2025 9:35 AM CDT - 01/11/2025 11:59 PM CDT Hospital Encounter [facility] Radiology [address] [place] [address] Encounter for imaging to screen for metal prior to magnetic resonance imaging (MRI) Discharge Disposition: Discharge to home or self care 01/11/2025 8:47 AM CDT - 01/11/2025 11:59 PM CDT Hospital Encounter [facility] Radiology [address] [place] [address] Unspecified injury of right shoulder and upper arm, initial encounter Discharge Disposition: Discharge to home or self care 01/11/2025 Documentation Cardiology Sofiya Rosa NP 01/06/2025 10:22 AM CDT - 01/06/2025 11:59 PM CDT Hospital Encounter [facility] [address] [place] [address] Dougie Lord MD Right knee pain, unspecified chronicity Discharge Disposition: Discharge to home or self care 01/05/2025 Telephone [facility] at [facility] [address] [facility] [address] [place] [address] Dougie Lord MD Pre-Surgical Call 01/05/2025 Telephone [facility] Medicine Dermatology [address] [facility] [address] [place] [address] Luis Hobbs MA Med Refill (HC 2.5% Cr) from Last 3 Months Surgical History Surgery [...] CARDIAC ELECTROPHYSIOLOGY MAPPING AND ABLATION 09/03/2018 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 More than 4 times per year 02/11/2024 Do you belong to any clubs o r organizations such as muslim groups, unions, fraternal or athletic groups, or [...] any time in the past 12 m [facility], were you homeless or living [...] on file Legal Sex Female 12:21 AM CIRCULATING PROCESS INSPECTOR Gender Identity Not on file Sexual [...] home safety. Medical Devices Implanted Type Area Manager Etl Device Identifier Shelf Expiration Date Model / Serial / Lot Ivc Filter- 7 Implanted:Qty: 1 on 06/09/2007 by Tam Fraser MD IVC Filter N/A: Vena Cava Lead-Spinal Cord Stimulator- 018 Implanted:2017 by Taran Ramirez MD (Quantity not on file) Lead Back [employer] SC-2158- 50 / / Biotronik Ra Lead ([id number])- 019 Implanted:2018 (Quantity not on file) Lead Chest Biotronik SOLIA S [id number] / [id number] / Lead (Rv)-05/23/2021 Implanted:2020 (Quantity not on file) Lead Heart Biot[employer]ik SOLIA S 53 377 177 / [id number] / Biotronik Paceomaker Amvia Edge -T-12/24/2023 Implanted:2023 (Quantity not on file) Pacemaker Chest Wall Biotronik [id number] / [id number] / Spinal Cord Stimulator- 018 Implanted:Qty: 1 on 08/20/2017 by Taran Ramirez MD Spinal Cord Stimulator N/A: Back [employer] SC-1200 / [id number] / Spinal Cord Stimulator Lead-08/20/2017 Implanted:2017 by Taran Ramirez MD (Quantity not on file) Spinal Cord Stimulator Back [employer] Neuro- [id number] / / Hardware Thoracic-L umbar Spine Loop Recorder Chest Wall Chris [employer] System Closure Repair Femoral Artery Suture Mediated Perclose Prostyle 20538-49 - [id number] Implanted:Qty: 1 on 02/09/2024 by Morgan Roy MD at [facility] Vascular 11/16/2025 [id number] / / [id number] Chris [employer] Percutaneous Transcatheter Amplatzer Amulet 18mm 0-[id number] - [id number] Implanted:Qty: 1 on 02/09/2024 by Morgan Roy MD at [facility] Vascular 09/17/2027 9-ACP2-0 07-018 / / [id number] Chris V[employer] System Closure Repair Femoral Artery Suture Mediated Perclose Prostyle 54703-25 - [id number] Implanted:Qty: 1 on 02/09/2024 by Morgan Roy MD at [facility] [employer] 11/16/2025 [id number] / / [id number] [employer] Sling Urinary Incontinence Female Stress Short Desara Blue Sis-Ds01bs - [id number] Implanted:Qty: 1 on 06/28/2024 by Shankar Mak MD at [facility] N/A: Urethra [employer] 01/04/2027 SIS-DS01 BS / / [id number] Explanted Type Area Manager Etl Device Identifier Shelf Expiration Date Model / Serial / Lot Biotronik Rv Lead ([id number])-07/04 Implanted:Qty: 1 on 07/04/2019 Explanted:Qty: 1 Lead Chest Biotronik [id number] / / Description:This lead was re placed and left behind per patient on 05/23/21 Biotronik Pacemaker ([id number])-07/04 Implanted:Qty: 1 on 07/04/2019 Explanted:Qty: 1 on 12/24/2023 Pacemaker Left: Chest Biotronik ELUNA 8 KRISTY CARBAJAL / [id number] / [id number] Procedures Procedure Name Priority Date/Time Associated Diagnosis [...] AM CDT Right knee pain, unspecified chronicity COLONOSCOPY 08/02/2024 1:43 PM CIRCULATING PROCESS INSPECTOR HEPATITIS C ANTIBODY Routine 07/06/2020 2:58 PM CIRCULATING PROCESS INSPECTOR Polyarthralgia Encounter for screening for other viral [...] BLOOD ORDER IDRIS Final Result [facility] [address] [place] [address] * Comprehensive metabolic panel (01/23/2025 11:04 AM CDT) Pathologist [facility] Glucose 80 65 - 99 mg/dL [facility] [...] BLOOD ORDER IDRIS Final Result [facility] [address] [place] [address] * MRI Shoulder Right WO Contrast (01/11/2025 [...] by: Antoine Martínez M.D. Andrea Moran MD IMCally MRI PROCEDURES Final Res ult * XR [...] by: Aaron Tran D.O. Caity Gilliland MD IMCally XR PROCEDURES Final Result * XR Chest [...] signed by: Trey Olivas M.D. us Tom Stephen Paz MD IMG XR PROCEDURES Final Resu lt * Imaging Genicular RFA Right ([id number]) (01/06/2025 11:33 AM CDT) Narrative [facility] - 01/06/2025 11:33 AM CDT The images from this study are not interpreted by Radiology. Please refer to the physician's procedure / OR operative note. us Dougie Lord MD IMG PAIN MGMT PROCEDURES Final Result [facility] * Colonoscopy (08/02/2024 1:43 PM CIRCULATING PROCESS INSPECTOR) Anatomical Region Laterality Modality Other Narrative Procedure Note Trey Arroyo MD - 08/02/2024 1:43 PM CST [facility] Patient Name: Naye Hart Procedure Date: 08/02/2024 1:43 PM Date of : 1965 Admit Type: Outpatient Age: 58 Gender: Female Attending MD: Trey Arroyo M.D. Room: [facility] ENDOSCOPY ROOM 8 Note Status: [...] The scope was passed under direct vision.The [id number] endoscope was introduced through the anus and advanced to the terminal ileum. The colonoscopy was performed without difficulty. The patient tolerated the procedure well. The qualityof the bowel preparation was evaluated using the BBPS (Ozan Bowel Preparation Scale) with scores of:Right Colon [...] business hours - Please call theNurse Coordinator: [phone] After hours, evening, nights, weekends and holidays- Please call the hospital paper bag machine operator at and ask for the GI fellow collection agent. Attending Participation: I was present and participated during the entire procedure, including non-patrick portions. Electronically signed by Trey Arroyo MD Trey Arroyo M.D. 08/02/2024 2:08:56 PM . Number of Addenda: 0 Note Initiated On: 08/02/2024 1:43 PM Trey Arroyo MD ENDOSCOPY PROCEDURES Final Result * Hepatitis C antibody (07/06/2020 2:58 PM CIRCULATING PROCESS INSPECTOR) Hep C Ab NON-REACTI VE NON-REACT [facility] SIGNAL TO CUT-OFF 0.02 <1.00 [facility] Comment: HCV antibody was non-reactive. There is no laboratory evidence of HCV infection. In most cases, no further action is required. However, if recent HCV exposure is suspected, a test for HCV RNA (test code 13818) is suggested. For additional information please refer to http://education.Campus Cellect/faq/AVJ76j8 (This link is being provided for informational/ educational purposes only.) Blood specimen (specimen) 07/06/2020 2:58 PM CIRCULATING PROCESS INSPECTOR 07/06/2020 3:00 PM CIRCULATING PROCESS INSPECTOR Narrative [facility] - 07/11/2020 9:33 PM CIRCULATING PROCESS INSPECTOR PATIENT UNABLE TO VOID; ADVISED TO RETURN FOR COLLECTION. [facility] MICROBIOLOGY - GENERA L ORDERABLES Final Result [facility] [address] [facility] [place] [address] from Last 3 Months or Most Recently Relevant to Health Maintenance Insurance MEDICARE IDSD MEDICARE [facility] PLAN MEDICARE MEDICARE IDPA Advance Directives For more information, please contact: [phone] * Full Code (Latest Code Status on [...] 10:10 AM 02/24/2022 4:09 PM Care Teams Hall Monitor Relationship Specialty Start Date End Date Tom Paz MD PCP - General 09/09/16 Tab Taylor MD [address] [place] [address] Consulting Physician Cardiology 01/03/20 Favian Caceres MD [facility] [place] [address] Consulting Physician Rheumatology 08/28/23
--- OUTSIDE RECORDS SUMMARY | 2025-03-14 13:55 | XMS_ITS | Encounter Summary ---
Author Organization [facility] Address [address] [place] [address] Phone Care Team Providers Care Recruiting Team Lead Name Role Phone Tom Paz MD Primary Care Provider [phone] Tab Taylor MD Unavailable [phone] Favian Caceres MD Unavailable [phone] Encounter Details Date Type Department Care Team (Late st Contact Info) Description 12/06/2024 E-Visit [facility] [address] [place] [address] Claudia Cristobal, CO [address] [place] [address] Ultrasound Social History Tobacco Use Types Packs/Day Years Used Date Smoking Tobacco: Never Passive Smoke Exposure: Past Smokeless Tobacco: Never Alcohol Use Standard Drinks/Week Comments No 0 (1 standard drink = 0.6 oz pur e alcohol) [facility] Utilities Answer Date Recorded In the past 12 months has [employer] electric, gas, oil, or water company threatened [...] on file Legal 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
--- OUTSIDE RECORDS SUMMARY | 2025-03-14 13:55 | XMS_ITS | Encounter Summary ---
Author Organization [facility] Address [address] [place] [address] Care Team Providers Care Radiation Control Health Physicist Name Role Phone Tom Paz MD Primary Care Provider [phone] Tab Taylor MD Unavailable [phone] Favian Caceres MD Unavailable [phone] Encounter Details Date Type Department Care Team (Late st Contact Info) Description 02/11/2024 Documentation [facility] Case Management [address] [place] [address] Gaviota Benz, RN Social History Tobacco Use Types Packs/Day Years Used Date Smoking Tobacco: Never Passive Smoke Exposure: Past Smokeless Tobacco: Never Alcohol Use Standard Drinks/Week Comments No 0 (1 standard drink = 0.6 oz pur e alcohol) [facility] Utilities Answer Date Recorded In the past 12 months has [employer] electric, gas, oil, or water company threatened [...] week 02/11/2024 How often do you attend [facility] or spiritism services? 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 2. Return patient to optimal level of self-care post discharge. 3. Anatomy And Physiology Instructor will follow for Discharge Planning - interventions as needed 4. Anticipated level of care at discharge 5. Planned Discharge Disposition SONALI Brothers, RN project engineer chemicals [phone] documented in this encounter Plan of Treatment [...] on filedocumented in this encounter Care Teams Radiation Control Health Physicist Relationship Specialty Start Date End Date Tom Paz MD PCP - General 09/09/16 Tab Taylor MD [address] [place] [address] Consulting Physician Cardiology 01/03/20 Favian Caceres MD [address] [place] [address] Consulting Physician Rheumatology 08/28/23 documented as of this encounter
--- OUTSIDE RECORDS SUMMARY | 2025-03-14 13:55 | XMS_ITS | Clinical Summary ---
Author Organization [facility] Address [address] [place] [address] Care Team Providers Care Cork Floor Installer Name Role Phone Tom Paz MD Primary Care Provider [phone] Allergies Active Allergy Reactions Criticality Noted Date [...] blisters Etanercept Swelling Low 12/09/2023 Embrel Gum Bsolrw-Pgsvtn-Yakf-Alcoho l Rash Low 12/09/2023 Mastisol - blisters [...] 01/18/20 22, 01/17/2022, 08/07/2020, Additional history exists PAP SMEAR [...] this topic Medical Devices Implanted Type Area Professor Of Geography Device Identifier Shelf Expiration Date Model / Serial / Lot Tyrx Antibacterial Envelope Med [id number] - [id number] Implanted:Qty: 1 on 12/24/2023 at [facility] Mesh Left: Chest MEDTRONIC- CARD RHYTHM MGMT 10/01/2024 [id number] / / [id number] Neuro Stimulator Neuro Stimulator [employer] SC-1200 / / Description:leads: SC- Need lead numbers Dc Ppm Gen Implanted:Qty: 1 on 12/24/2023 by Burton Forbes MD at [facility] N/A: Chest Wall [id number] / [id number] / Explanted Type Area Professor Of Geography Device Identifier Shelf Expiration Date Model / Serial / Lot Dc Eluna 8 Ppm Gen Explanted:Qty: 1 on 12/24/2023 by Burton Forbes MD at [facility] Pacemaker Chest Wall [employer] ELUNA 8 KRISTY / [id number] / Description:Implant date: Per [employer] Rep - NOT MRI safe (extra cap lead -ABANDONED LEAD - NO MRI -lizandro 08/14/23 Insurance [address] [place] [address] MEDICARE PART A AND B [facility] [place] [id number] MEDICARE PART A AND B RX [employer] RX Member Subscriber Plan / Payer (Ef fective 2023-Present) Name:Naye Hart Relation to Subscriber:Self Name:Naye Hart Subscriber ID:Not on file Payer ID:Not on file Group ID:[id number] Type:RX Commercial Address: [address] Advance Directives For more information, please contact: [phone] Documents on File Type Date Recorded Patient Rough Rice Tender Expl anation Advance Directive POA 12/24/2023 8:33 AM Ad valenzuela Directive POA * Full Code (Latest Code Status on File) Date Activated Date Inactivated Comments 12/24/2023 3:32 PM 12/25/2023 12:17 PM Care Teams Cork Floor Installer Relationship Specialty Start Date End Date Tom Paz MD [address] [place] [id number] PCP - General Family Practice 01/28/22
--- OUTSIDE RECORDS SUMMARY | 2025-03-14 13:55 | XMS_ITS | Patient Health Record ---
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) Active confirmed Problem Localized, primary osteoarthritis of the pelvic region and thigh (362360998) Unilateral primary osteoarthritis, left hip (M16.12) Active confirmed Problem Solitary sacroiliitis (051560768) Sacroiliitis, not elsewhere classified (M46.1) Active confirmed Problem Cervical radiculopathy (21619173) Radiculopathy, cervical region (M54.12) Active confirmed Problem Cervical radiculopathy (92129508) Radiculopathy, cervicothoracic region (M54.13) Active confirmed Problem Lumbosacral radiculopathy (6149501) Radiculopathy, lumbosacral region (M54.17) Active confirmed Plan Of Treatment No Information Insurance Providers Payer Name Payer Address Payer Phone Subscriber Number Group Number Insured Name Patient Relationship to Insured Coverage Start Date Coverage End Date MEDICARE SERVICES [address] [address] [place] [address] [id number] Naye Hart Self - patient is the insured 0 IPA [address] [address] [place] [address] [id number] Naye Hart Self - patient [...]
== END 2025-03-14 13:48 | disposition home or self-care (01) ==
PROVIDERS: PCP Family Medicine; Visit Provider Neurological Surgery
DX: M43.28 Fusion of spine, sacral and sacrococcygeal region (principal); Z98.1 Arthrodesis status
CPT/HCPCS: 72192

== ENCOUNTER 2025-03-14 15:35 | Inpatient (IN) | payer MEDICARE, MEDICAID, SELFPAY ==
--- OUTSIDE RECORDS SUMMARY | 2010-02-26 04:30 | XMS_ITS | Continuity of Care Document ---
Author Organization [facility] Address [address] [place] [address] [address] [place] [address] Phone Care Team Providers Care Pallet Stone Inserter Name Role Phone Anthony Gutierrez Unavailable Unavailable [...] Providers Copied on Encounter Office/outpat ient Visit, [facility], [address] [place] [address] [address], [place], [place], [address], [place] tel:[phone] SEC [facility] No Information 0 0 Krishnasamy Anthony. 2421 [facility] 102, [place], [address], [place]. tel:[phone] Office/outpat ient Visit, [facility], [address] [place] [address] [address], [place], [place], [address], [place] tel:[phone] [facility] [place] No Information 0 0 Krishnasamy Anthony. [address] [facility] [place] [address], [place], [place], [facility], [place]. tel:[phone] Office/outpat ient Visit, Est [facility] Eye [facility], [address] [place] [address] [address], [place], [place], [address], [place] tel:[phone] SEC [facility] No Information Fe-2 3-201 0 Krishnasamy Anthony. [address] [facility] [place] [address], [place], [facility], [place]. tel:[phone] [facility] Eye [facility], [address] [place] [address] [address], [place], [place], [address], [place] tel:[phone] [facility] No Information Jan-3 1-200 9 Krishnasamy Anthony. [facility] 102, [place], [facility], [place]. tel:[phone] [facility], [address] [place] [address] [address], [place], [place], [address], [place] tel:[phone] SEC [facility] No Information You-2 2-200 9 Krishnasamy Anthony. [address] [place], [place] [address]ate [place] [address], [place], [facility], [place]. tel:[phone] [facility], [address] [place] [address] [address], [place], [place], [address], [place] tel:[phone] [facility] [place] No Information May-0 8-200 9 Krishnasamy Anthony. [facility] [place] [address], [place], [facility], [place]. tel:[phone] [facility], [address] [place] [address], [place], [place], [address], [place] tel:[phone] [facility] No Information Apr-2 8-200 7 Montes OD Simone. [address] [place] [address], [place], [facility], [place]. tel:[phone] Family History Family Member Type Diagnosis Age At Onset No Information Payers Payer name Insurance type Covered alliance party ID Authoriza tion(s) Medicare [facility] [id number] Medicaid REPLACED BY [facility] [id number] Social History Type Description Quantity Date Captured [...]
--- OUTSIDE RECORDS SUMMARY | 2024-08-23 09:45 | XMS_ITS | Continuity of Care Document ---
Author Organization [facility] Address [address] [facility] [address] [place] [address] Phone Care Team Providers Care Charge Master Coordinator Name Role Phone Nayely OD OD, Denise [...] EST REFRACTION Medicare OFFICE/OUTPATIENT VISIT, EST REFRACTION [facility] OFFICE/OUTPATIENT VISIT, EST OFFICE/OUTPATIENT VISIT, EST REFRACTION [facility] OFFICE/OUTPATIENT VISIT, EST REFRACTION MEDICARE OFFICE/OUTPATIENT VISIT, [...] OFFICE/OUTPA TIENT VISIT, EST [facility], [address] [facility] [address], [place], [place], [id number], [place] tel:[phone] OPH CONSULT [facility] flash of light OS (chief complaint) Age-related nuclear cataract, bilateralTear film insufficiency of bilateral lacrimal glandsOther vitreous opacities, bilateral Aug-0 5 Derheimer OD Denise. [address] [facility], [address], [place], [place], [address], [place]. tel:[phone] Referring Provider: Tom Sapp, [address], [place], [address]. tel:[phone] OFFICE/OUTPA TIENT VISIT, EST [facility], [address] [place] [address], [id number], [place] tel:[phone] OPH CONSULT [facility] Pain OS (chief complaint) Left eye painAge-relat ed nuclear cataract, bilateralOthe r vitreous opacities, bilateralTear film insufficiency of bilateral lacrimal glands Apr-0 4-202 4 Krishnasamy Anthony. [address], [address], [place], [place], [address], [place]. tel:[phone] Referring Provider: Tom Sapp, [address], [place], [address]. tel:[phone] OFFICE/OUTPA TIENT VISIT, EST [facility], [address] [place] [address], [id number], [place] tel:[phone] O[facility] blurry vision (chief complaint) Age-related nuclear cataract, bilateralTear film insufficiency of bilateral lacrimal glandsOther vitreous opacities, bilateralDipl opiaHypermetr opia, bilateral Oct-2 4-202 3 Krishnasamy Anthony. [address], [address], [place], [place], [address], [place]. tel:[phone] Referring Provider: Tom Sapp, [address], [place], [address]. tel:[phone] OFFICE/OUTPA TIENT VISIT, EST [facility], [address] [place] [address], [id number], [place] tel:[phone] OPH CONSULT [facility] blurry [place] (chief complaint) Tear film insufficiency of bilateral lacrimal glandsOther vitreous opacities, bilateralAge- related nuclear cataract, bilateralDipl opiaHypermetr opia, bilateral Mar-1 0-202 2 Krishnasamy Anthony. [address], [place], [place], [address], [place]. tel:[phone] Referring Provider: Tom Sapp, [address], [place], [address]. tel:[phone] OFFICE/OUTPA TIENT VISIT, EST [facility], [address] [place] [address], [id number], [place] tel:[phone] OPH CONSULT [facility] shingles (chief complaint) Herpes zoster without complicationT ear film insufficiency of bilateral lacrimal glands Apr- 1 Krishnasamy Anthony. [address], [place], [place], [address], [place]. tel:[phone] Referring Provider: Tom Sapp, [address], [place], [address]. tel:[phone] OFFICE/OUTPA TIENT VISIT, EST [facility], [address] [place] [address], [id number], [place] tel:[phone] OPH CONSULT [facility] blurry (chief complaint) DiplopiaAge-r elated nuclear cataract, bilateralTear film insufficiency of bilateral lacrimal glandsOther vitreous opacities, bilateralHype rmetropia, bilateral Nov- 9 Krishnasamy Anthony. [address], [address], [place], [place], [address], [place]. tel:[phone] Referring Provider: Anthony Gutierrez, [address], [place], [address]. tel:[phone] OFFICE/OUTPA TIENT VISIT, EST [facility], [address] [place] [address], [id number], [place] tel:[phone] OPH CONSULT [facility] blurry vision (chief complaint) Tear film insufficiency of bilateral lacrimal glandsOther vitreous opacities, bilateralDipl opiaHypermetr opia of both eyes Oct-3 0- 8 Krishnasamy Anthony. [address], [address], [place], [place], [address], [place]. tel:[phone] Referring Provider: Anthony Gutierrez, [address], [place], [address]. tel:[phone] OFFICE/OUTPA TIENT VISIT, EST [facility], [address] [place] [address], [id number], [place] tel:[phone] OPH CONSULT [facility] blurry vision (chief complaint) dry eyes (chief complaint) DiplopiaOther vitreous opacities, bilateralTear film insufficiency of bilateral lacrimal glandsHyperme tropia of both eyes Dec-2 7 7 Krishnasamy Anthony. [address], [address], [place], [place], [address], [place]. tel:[phone] Referring Provider: Anthony Gutierrez, [address], [place], [address]. tel:[phone] OFFICE/OUTPA TIENT VISIT, EST [facility], [address] [place] [address], [id number], tel:[phone] OPH CONSULT [facility] blurry vision (chief complaint) Reflex sympathetic dystrophy, unspecifiedTe ar film insufficiency , unspecifiedHy permetropia of both eyesOther vitreous opacities, bilateralDipl opia Oct-0 5-201 6 Krishnasamy Anthony. [address], [address], [address], [place]. tel:[phone] Referring Provider: Anthony Gutierrez, [address], [place], [address]. tel:[phone] OFFICE/OUTPA TIENT VISIT, NEW [facility], [address] [place] [address], [id number], [place] tel:[phone] Oph Consult [facility] blurry vision (chief complaint) Hypermetropia Tear film insufficiency , unspecifiedOt her vitreous opacitiesDipl opiaReflex sympathetic dystrophy, unspecified Sep-2 8-201 5 Krishnasamy Anthony. [address], [address], [address], [place]. tel:[phone] Referring Provider: Anthony Gutierrez, [address], [place], [address]. tel:[phone] OFFICE/OUTPA TIENT VISIT, EST [facility], [address] [place] [address], [place], [place], [id number], [place] tel:[phone] Oph Consult [facility] Office Tear film insufficiency , unspecifiedRe flex sympathetic dystrophy, unspecifiedOt her vitreous opacitiesHype rmetropiaDipl opia Feb- 4 Krishmargaret Anthony. [address], [address], [place], [place], [address], [place]. tel:[phone] Referring Provider: Anthony Gutierrez, [address], [place], [address]. tel:[phone] OFFICE/OUTPA TIENT VISIT, EST [facility], [address] [place] [address], [place], [place], [address], tel:[phone] Oph Consult [facility] Office Other vitreous opacitiesTear film insufficiency , unspecifiedDi plopiaHyperme tropia Mar- 3 Krishnasnina Anthony. [address], [address], [place], [place], [address], [place]. tel:[phone] Referring Provider: Anthony Gutierrez, [address], [place], [address]. tel:[phone] OFFICE/OUTPA TIENT VISIT, EST [facility], [address] [place] [address], [id number], [place] tel:[phone] OPH [facility] Tear film insufficiency , unspecifiedRe flex sympathetic dystrophy, unspecifiedDi plopiaHyperme tropia Sep- 3 Krishnasnina Anthony. [address], [address], [place], [place], [address], [place]. tel:[phone] Referring Provider: Anthony Gutierrez [address], [place], [address]. tel:[phone] OFFICE/OUTPA TIENT VISIT, EST [facility], [address], [id number], tel:[phone] OPH CONSULT [facility] Tear film insufficiency , unspecifiedDi plopia 2 Brenda Cruz. [address], [address], [address], . tel:[phone] Referring Provider: Anthony Gutierrez, [address], [place], [address]. tel:[phone] OFFICE/OUTPA TIENT VISIT, NEW [facility], [id number] [place] [address], [place], [place], [address], tel:[phone] OPH CONSULT [facility] DiplopiaHeada cheHypermetro tierra 1 Brenda Cruz. [address], [place], [place], [address], . tel:[phone] Family History Family Member Type Diagnosis Age At Onset Son Problem (finding) Lazy eye Payers Payer name Insurance type Covered alliance party ID Authorjosea tirin(s) [place] MB [id number] Medicaid [place] [id number] Social History Type Description Quantity Date Captured [...] D&N. Pt saw Dr Nai Sotelo at [facility] for prism. Pt did not [...] to Hyper metropia, bilateral Impression/Plan Related to Other vitreous opacities, bilateral [...] symptoms noted. Related to Other vitreous opacities Follow up - Return i n 1 year with for Complete Exam. Impression/Plan Related to Refle x sympathetic dystrophy, unspecified Diplopia- likely due to dry eye Related to Diplopia Reflex sympathetic d ystrophy, unspecified Related to [...] maintenance. 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 Patient will see Oscarnahun Richardson (leather staker) @ [facility] for prisms/glasses. 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 Patient will see Smita Richardson (leather staker) @ [facility] 12/24/2010 for motility exam and [...]
[2025-03-14] VITALS (10 sets, daily range): BP systolic 108–129; BP diastolic 60–72; PULSE 78–88; RESP 16–18; TEMP 36.4–36.9; O2SAT 94–100; BMI 28.8
--- NOTE | ~2025-03-14 | XR_ITS ---
EXAMINATION: XR fluoroscopy no charge DATE: 03/15/2025 15:11 INDICATION: Screw removal at the left sacroiliac joint TECHNIQUE: 4 fluoroscopic images of the pelvis centered at the left sacroiliac joint were obtained during procedure performed by Dr. Ramirez. Radiologist was not present for the imaging or procedure. The amount of fluoroscopy time used during this procedure was 0.6 minutes. Total DAP was 6.11 Gycm^2. COMPARISON: CT dated 02/2625 and fluoroscopic images dated FINDINGS: Images demonstrate a pair of fixation screws projecting across both the left and right sacroiliac joints. The cephalad most of the 3 previously seen screws appears to been removed. There is been prior hysterectomy. L4-L5 and L5-S1 anterior and posterior spinal fusion with interbody bone graft cages and bilateral vertical keith and pedicle screw fixations at both levels. IMPRESSION: 1. Removal of the cephalad most of the 3 prior fixation screws spanning the left sacroiliac joint. See procedure note for further detail. Reviewed, dictated and finalized at location A. IMPRESSION: 1. Removal of the cephalad most of the 3 prior fixation screws spanning the lef t sacroiliac joint. See procedure note for further detail.
--- OUTSIDE RECORDS SUMMARY | 2025-03-14 15:38 | XMS_ITS | Encounter Summary ---
Author Organization [facility] Address [address] [place] [address] Care Team Providers Care Fisher Eel Spear Name Role Phone Tom Paz MD Primary Care Provider [phone] Tab Taylor MD Unavailable [phone] Favian Caceres MD Unavailable [phone] Encounter Details Date Type Department Care Team (Late st Contact Info) Description 02/11/2024 Documentation [facility] Case Management [address] [place] [address] Gaviota Benz, RN Social History Tobacco Use Types Packs/Day Years Used Date Smoking Tobacco: Never Passive Smoke Exposure: Past Smokeless Tobacco: Never Alcohol Use Standard Drinks/Week Comments No 0 (1 standard drink = 0.6 oz pur e alcohol) [facility] Utilities Answer Date Recorded In the past 12 months has [employer] electric, gas, oil, or water company threatened [...] week 02/11/2024 How often do you attend [facility] or rastafari services? 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 Has a pupil personnel worker and has a quad cane and [...] Collaboration with Patient, Provider, Direct Care Nurse, Windows Desktop Engineer, and other members of theHealth Care Team to assure needed interventions completed. 2. Return patient to optimal level of self-care post discharge. 3. Architect Naval will follow for Discharge Planning - interventions as needed 4. Anticipated level of care at discharge 5. Planned Discharge Disposition SONALI Brothers, RN monitoring specialist [phone] documented in this encounter Plan of Treatment [...] on filedocumented in this encounter Care Teams Fisher Eel Spear Relationship Specialty Start Date End Date Tom Paz MD PCP - General 09/09/16 Tab Taylor MD [address] [place] [address] Consulting Physician Cardiology 01/03/20 Favian Caceres MD [address] [place] [address] Consulting Physician Rheumatology 08/28/23 documented as of this encounter
--- OUTSIDE RECORDS SUMMARY | 2025-03-14 15:38 | XMS_ITS | Encounter Summary ---
Author Organization [facility] Address [address] [place] [address] Phone Care Team Providers Care Filenet Admin Name Role Phone Tom Paz MD Primary Care Provider [phone] Tab Taylor MD Unavailable [phone] Favian Caceres MD Unavailable [phone] Encounter Details Date Type Department Care Team (Latest Contact Info) Description 01/24/2025 Results Follow-Up [facility] [address] [place] [phone] Claudia Cristobal, [place] [address] [place] [address] CBC with auto differential, Comprehensive metabolic panel Social History Tobacco Use Types Packs/Day Years Used Date Smoking Tobacco: Never Passive Smoke Exposure: Past Smokeless Tobacco: Never Alcohol Use Standard Drinks/Week Comments No 0 (1 standard drink = 0.6 oz pur e alcohol) [facility] Utilities Answer Date Recorded In the past 12 months has [employer] electric, gas, oil, or water company threatened [...] time in the past 12 m [facility], were you homeless or living in a [...] on file 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 Author CCM Chronic Pain Care Plan Chronic Care Management No Hali Brweer RN Note: Problem: Chronic Pain Goals: 1. [...] on filedocumented in this encounter Care Teams Filenet Admin Relationship Specialty Start Date End Date Tom Paz MD PCP - General 09/09/16 Tab Taylor MD [address] [place] [address] Consulting Physician Cardiology 01/03/20 Favian Caceres MD [address] [place] [address] Consulting Physician Rheumatology 08/28/23 documented as of this encounter
--- OUTSIDE RECORDS SUMMARY | 2025-03-14 15:38 | XMS_ITS | Clinical Summary ---
Author Organization [facility] al Address [address] [place] [address] Care Team Providers Care Manufacturing Job Titles Name Role Phone Tom Paz MD Primary Care Provider [phone] Tab Taylor MD Unavailable Favian Caceres MD Unavailable [phone] Allergies Active Allergy Reactions Criticality Noted Date [...] - blisters Etanercept Itching Low 02/24/2022 Gum Dedyjm-Mgvnfb-Vdfn-Alcoho l Blisters,Rash High 12/17/2021 Mastisol - blisters [...] QuantGold Assessment & Plan (07/28/2024 11:19 AM OCEAN FREIGHT AGENT): Monitor routine labs while on immunosuppressive medications. [...] QuantGold Assessment & Plan (09/22/2023 12:26 PM OCEAN FREIGHT AGENT): Monitor routine labs while on immunosuppressive medications. [...] QuantGold Assessment & Plan (09/11/2022 12:48 PM OCEAN FREIGHT AGENT): Monitor routine labs while on immunosuppressive medications. Recent 2/ labs stable. 06/2020: Neg Hep B/C 03/2021: Neg QuantGold Assessment & Plan (07/01/2022 9:25 AM OCEAN FREIGHT AGENT): Monitor routine labs while on immunosuppressive medications. [...] QuantGold Assessment & Plan (08/19/2021 2:31 PM OCEAN FREIGHT AGENT): Monitor routine labs while on immunosuppressive medications. [...] Hospitalized for total of 8 days, at [place] and [facility]. Had CT brain/neck angio that were unremarkable. [...] Hospitalized for total of 8 days, at [place] and then [facility]. Had CT brain/neck angio that were [...] 07/24/2020 Assessment & Plan (07/24/2020 12:34 PM OCEAN FREIGHT AGENT): Her greatest pain complaint at this time [...] 07/24/2020 Assessment & Plan (07/01/2022 2:12 PM OCEAN FREIGHT AGENT): Self weaned off Cymbalta 2 days ago [...] exercise. Assessment & Plan (08/27/2020 2:41 PM OCEAN FREIGHT AGENT): Fatigue with sensation of pain all over [...] exercise. Assessment & Plan (07/24/2020 12:36 PM OCEAN FREIGHT AGENT): Fatigue with sensation of pain all over [...] PT. Assessment & Plan (08/28/2020 12:26 PM OCEAN FREIGHT AGENT): Multifocal OA (hands and hips) per recent xrays. Continue Tylenol 500 mg qid. Continue PT. Assessment & Plan (07/24/2020 12:41 PM OCEAN FREIGHT AGENT): Multifocal OA (hands and hips) per recent [...] increase blood glucose, glaucoma and osteopenia with jail use of steroids. Labs today. To return in 6 weeks for re-evaluation - this can be moved out to 3 months if joints remain stable. Assessment & Plan (07/28/2024 11:22 AM OCEAN FREIGHT AGENT): Off MTX (oral ulcers/hair thinning). 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 She was strongly encouraged [...] needed. Assessment & Plan (09/22/2023 12:32 PM OCEAN FREIGHT AGENT): A 09/2022 repeat left hand/wrist US demonstrated [...] needed. Assessment & Plan (09/11/2022 12:48 PM OCEAN FREIGHT AGENT): Continued 15mg MTX weekly and monthly Simponi [...] Chan. Assessment & Plan (08/06/2022 9:00 PM OCEAN FREIGHT AGENT): Has continued 15mg MTX weekly as well [...] we have no access to them through [facility]. She already had an OV scheduled for 09/02 - will re-evaluate joints at that time and consider repeat hand US if synovitis is absent/minimal on exam but she is still noting pain -to evaluate for underlying inflammation. She may require change in biologic medication. Assessment & Plan (07/01/2022 2:09 PM OCEAN FREIGHT AGENT): CDAI 37, high Off Enbrel due to [...] She is to follow up with her senior accounting associate soon due to low BP following [...] increase blood glucose, glaucoma and osteopenia with jail use of steroids. Continue 15mg MTX weekly [...] Chan. Assessment & Plan (08/19/2021 9:00 PM OCEAN FREIGHT AGENT): CDAI 25. On 15mg MTX weekly but has only taken 3 Enbrel injections so far. Just completed a medrol dose pack from her senior accounting associate due to inflammation around her heart [...] incontinence. Has followed up with PCP and senior accounting associate - started Ubrelvy for JACKSON and senior accounting associate is to adjust her pacemaker on [...] pen with her during her trip to [place] (leaves and returns around the ). A letter was provided for [facility] to allow Humira to be brought [...] needed. Assessment & Plan (08/28/2020 12:26 PM OCEAN FREIGHT AGENT): Our workup showed an JANNET 1:160 but [...] needed. Assessment & Plan (07/24/2020 12:33 PM OCEAN FREIGHT AGENT): 54yoF referred for evaluation due to +JANNET [...] reassess. Assessment & Plan (07/06/2020 4:49 PM OCEAN FREIGHT AGENT): 54yoF referred for evaluation due to +JANNET [...] (12/13/2019): Added automatically from request for surgery [id number] SVT (supraventricular tachycardia) 12/13/2019 Overview (12/13/2019): Added automatically from request for surgery [id number] A-fib 11/24/2019 Overview (11/24/2019): Added automatically from request for surgery [id number] Laryngopharyngeal reflux (LPR) 08/04/2018 Assessment & Plan (10/20/2018 12:26 PM CDT): No longer taking the omeprazole and ranitidine as prescribed. Patient is no longer experiencing any coughing, sinonasal or throat symptoms. Assessment & Plan (08/04/2018 1:17 PM OCEAN FREIGHT AGENT): Add omeprazole 40 mg Q morning 30 [...] resume. Assessment & Plan (08/04/2018 1:11 PM OCEAN FREIGHT AGENT): Patient's chronic cough is most likely secondary [...] airway disease contributing to her cough. senior care current use of anticoagulant therapy 1 08/28/2014 Deep vein thrombosis (DVT) 06/27/2015 Hyperthyroidism 08/31/2012 Chronic adrenal insufficiency 08/30/2012 Encounters Date Type Department Care Team Description 02/24/2025 8:09 AM CDT Anesthesia Event [facility] [address] [place] [address] Arely Hansen MD Gardner, Kari Elizabeth, NP 02/24/2025 8:05 AM CDT - 02/24/2025 8:50 AM CDT Surgery [facility] [address] [place] [address] Roge Dowell MD DRUG INDUCED SLEEP ENDOSCOPY EVAL FLEX DIAG 02/24/2025 5:56 AM CDT - 02/24/2025 9:00 AM CDT Hospital Encounter [facility] [address] [address] [place] [address] Roge Dowell MD Obstructive sleep apnea (Primary Dx) Discharge Disposition: Discharge to home or self care 02/06/2025 11:00 AM CDT - 02/06/2025 11:59 PM CDT Hospital Encounter [facility] [address] [place] [address] Dougie Lord MD Right knee pain, unspecified chronicity (Primary Dx) Discharge Disposition: Discharge to home or self care 01/26/2025 8:20 AM CDT Office Visit [facility] ENT [address] [place] [address] Medical Office Building [address] [place] [phone] Roge Dowell MD CELINA (obstructive sleep apnea) (Primary Dx); Obstructive sleep apnea (adult) (pediatric) 01/24/2025 Results Follow-Up [facility] [address] [place] [address] Claudia Cristobal PA CBC with auto differential, Comprehensive metabolic panel 01/23/2025 10:30 AM CDT Office Visit [facility] [address] [place] [address] Claudia Cristobal PA Seronegative rheumatoid arthritis (HCC) (Primary Dx); Encounter for long-term (current) use of high-risk medication 01/23/2025 Documentation [facility] Gastroenterology [address] [facility] 12th [place] [address] [place] [phone] Carlie Patricia 01/19/2025 Telephone [facility] at [address] [place] [address] Dougie Lord MD POST CALL 01/13/2025 Orders Only [facility] at [address], [address] [place] [address] Dougie Lord MD 01/12/2025 Telephone [facility] at [address] [place] [address] Dougie Lord MD Post Procedure Pain 01/11/2025 9:36 AM CDT - 01/11/2025 11:59 PM CDT Hospital Encounter [facility] Radiology [address] [place] [address] Transient ischemic attack (TIA); Cerebrovascular disease, unspecified; Unspecified visual loss; Presence of cardiac pacemaker Discharge Disposition: Discharge to home or self care 01/11/2025 9:35 AM CDT - 01/11/2025 11:59 PM CDT Hospital Encounter [facility] Radiology [address] [place] [address] Encounter for imaging to screen for metal prior to magnetic resonance imaging (MRI) Discharge Disposition: Discharge to home or self care 01/11/2025 8:47 AM CDT - 01/11/2025 11:59 PM CDT Hospital Encounter [facility] Radiology [address] [place] [address] Unspecified injury of right shoulder and upper arm, initial encounter Discharge Disposition: Discharge to home or self care 01/11/2025 Documentation Cardiology Sofiya Rosa NP 01/06/2025 10:22 AM CDT - 01/06/2025 11:59 PM CDT Hospital Encounter [facility] at [address] [place] [address] Dougie Lord MD Right knee pain, unspecified chronicity Discharge Disposition: Discharge to home or self care 01/05/2025 Telephone [facility] at [facility] [address] [facility] [address], [address] [place] [address] Dougie Lord MD Pre-Surgical Call 01/05/2025 Telephone [facility] Medicine Dermatology [address] [facility] [address] [place] [address] Luis Hobbs MA Med Refill (HC 2.5% [...] drink = 0.6 oz pur e alcohol) [facility] Utilities Answer Date Recorded In the past 12 months has [employer] electric, gas, oil, or water company threatened [...] week 02/11/2024 How often do you attend [facility] or synagogue services? More than 4 times [...] on file Legal Sex Female 12:21 AM OCEAN FREIGHT AGENT Gender Identity Not on file Sexual Orientation [...] home safety. Medical Devices Implanted Type Area Predictive Maintenance Technician Device Identifier Shelf Expiration Date Model / Serial / Lot Ivc Filter- 7 Implanted:Qty: 1 on 06/09/2007 by Tam Fraser MD IVC Filter N/A: Vena Cava Lead-Spinal Cord Stimulator- 018 Implanted:2017 by Taran Ramirez MD (Quantity not on file) Lead Back [employer] [id number]-2158- 50 / / Biotronik Ra Lead ([id number])- 019 Implanted:2018 (Quantity not on file) Lead Chest Biotronik SOLIA S [id number] / [id number] / Lead (Rv)-05/23/2021 Implanted:2020 (Quantity not on file) Lead Heart Biotronik SOLIA S 53 377 177 / [id number] / Biotronik Paceomaker Amvia Edge -T-12/24/2023 Implanted:2023 (Quantity not on file) Pacemaker Chest Wall Biotronik [id number] / [id number] / Spinal Cord Stimulator- 018 Implanted:Qty: 1 on 08/20/2017 by Taran Ramirez MD Spinal Cord Stimulator N/A: Back [employer] SC-1200 / [id number] / Spinal Cord Stimulator Lead-08/20/2017 Implanted:2017 by Taran Ramirez MD (Quantity not on file) Spinal Cord Stimulator Back [employer] Neuro- [id number] / / Hardware Thoracic-L umbar Spine Loop Recorder Chest Wall [employer] System Closure Repair Femoral Artery Suture Mediated Perclose Prostyle 77139-82 - [id number] Implanted:Qty: 1 on 02/09/2024 by Morgan Roy MD at [facility] Vascular 11/16/2025 [id number] / / [id number] [employer] Percutaneous Transcatheter Amplatzer Amulet 18mm 2-[id number] - [id number] Implanted:Qty: 1 on 02/09/2024 by Morgan Roy MD at [facility] 09/17/2027 9-[id number] [id number] / / [id number] [employer] System Closure Repair Femoral Artery Suture Mediated Perclose Prostyle 46201-19 - [id number] Implanted:Qty: 1 on 02/09/2024 by Morgan Roy MD at [facility] 11/16/2025 [id number] / / [id number] [employer] Sling Urinary Incontinence Female Stress Short Desara Blue Sis-Ds01bs - [id number] Implanted:Qty: 1 on 06/28/2024 by Shankar Mak MD at [facility] N/A: Urethra [employer] 01/04/2027 SIS-DS01 BS / / [id number] Explanted Type Area Predictive Maintenance Technician Device Identifier Shelf Expiration Date Model / Serial / Lot Biotronik Rv Lead ([id number])-07/04 Implanted:Qty: 1 on 07/04/2019 Explanted:Qty: 1 Lead Chest Biotronik [id number] / / Description:This lead was re placed and left behind per patient on 05/23/21 Biotronik Pacemaker ([id number])-07/04 Implanted:Qty: 1 on 07/04/2019 Explanted:Qty: 1 on 12/24/2023 Pacemaker Left: Chest Biotronik ELUNA 8 KRISTY CARBAJAL / [id number] / [id number] Procedures Procedure Name Priority Date/Time Associated Diagnosis [...] pain, unspecified chronicity COLONOSCOPY 08/02/2024 1:43 PM OCEAN FREIGHT AGENT HEPATITIS C ANTIBODY Routine 07/06/2020 2:58 PM OCEAN FREIGHT AGENT Polyarthralgia Encounter for screening for other viral [...] BLOOD ORDER IDRIS Final Result [facility] [address] [place] [address] * Comprehensive metabolic panel (01/23/2025 11:04 AM [...] BLOOD ORDER IDRIS Final Result [facility] [address] [place] [address] * MRI Shoulder Right WO Contrast (01/11/2025 [...] Resu lt * Imaging Genicular RFA Right (68521) (01/06/2025 11:33 AM CDT) Narrative [facility] - 01/06/2025 11:33 AM CDT The images from this study are not interpreted by Radiology. Please refer to the physician's procedure / OR operative note. us Dougie Lord MD IMG PAIN MGMT PROCEDURES Final Result [facility] * Colonoscopy (08/02/2024 1:43 PM OCEAN FREIGHT AGENT) Anatomical Region Laterality Modality Other Narrative Procedure Note Trey Arroyo MD - 08/02/2024 1:43 PM [facility] Patient Name: Naye Hart Procedure Date: 08/02/2024 1:43 PM Date of : 1965 Admit Type: Outpatient Age: 58 Gender: Female Attending MD: Trye Arroyo M.D. Room: [facility] ENDOSCOPY ROOM 8 Note Status: Finalized Procedure: [...] The scope was passed under direct vision.The [id number] [id number] endoscope was introduced through the anus and advanced to the terminal ileum. The colonoscopy was performed without difficulty. The patient tolerated the procedure well. The qualityof the bowel preparation was evaluated using the BBPS (Warren Bowel Preparation Scale) with scores of:Right Colon [...] business hours - Please call theNurse Coordinator: [phone] After hours, evening, nights, weekends and holidays- Please call the hospital circle cutting saw operator at and ask for the GI fellow injection molding machine tender. Attending Participation: I was present and participated during the entire procedure, including non-patrick portions. Electronically signed by Trey Arroyo MD Trey Arroyo M.D. 08/02/2024 2:08:56 PM . Number of Addenda: 0 Note Initiated On: 08/02/2024 1:43 PM Trey Arroyo MD ENDOSCOPY PROCEDURES Final Result * Hepatitis C antibody (07/06/2020 2:58 PM OCEAN FREIGHT AGENT) Hep C Ab NON-REACTI VE NON-REACT [facility] SIGNAL TO CUT-OFF 0.02 <1.00 [facility] Comment: HCV antibody was non-reactive. There is no laboratory evidence of HCV infection. In most cases, no further action is required. However, if recent HCV exposure is suspected, a test for HCV RNA (test code 87817) is suggested. For additional information please refer to http://education.CultureAlley/faq/KHH14j2 (This link is being provided for informational/ educational purposes only.) Blood specimen (specimen) 07/06/2020 2:58 PM OCEAN FREIGHT AGENT 07/06/2020 3:00 PM OCEAN FREIGHT AGENT Narrative [facility] - 07/11/2020 9:33 PM OCEAN FREIGHT AGENT PATIENT UNABLE TO VOID; ADVISED TO RETURN FOR COLLECTION. Olga MONT[facility] MICROBIOLOGY - GENERA L ORDERABLES Final Result [facility] [address] [facility] [place] [address] from Last 3 Months or Most Recently Relevant to Health Maintenance Insurance MEDICARE IDIL MEDICARE [facility] PLAN MEDICARE MEDICARE IDPA Advance Directives For more information, please contact: [phone] * Full Code (Latest Code Status on [...] 10:10 AM 02/24/2022 4:09 PM Care Teams Manufacturing Job Titles Relationship Specialty Start Date End Date Tom Paz MD PCP - General 09/09/16 Tab Taylor MD [address] [place] [address] Consulting Physician Cardiology 01/03/20 Favian Caceres MD [facility] [place] [address] Consulting Physician Rheumatology 08/28/23
--- OUTSIDE RECORDS SUMMARY | 2025-03-14 15:38 | XMS_ITS | Encounter Summary ---
Author Organization [facility] Healthcare Address [address] [place] [address] Care Team Providers Care Veterinary Inspector Name Role Phone Tom Paz MD Primary Care Provider [phone] Tab Taylor MD Unavailable Favian Caceres MD Unavailable Reason for Visit * Reason Onset Date Comments Scheduling Appointments 04/15/2024 Schedule patient for Imaging Genicular RFA Right (71149) and 1m follow Encounter Details Date Type Department Care Team (Late st Contact Info) Description 04/15/2024 Telephone [facility] at [facility] [address] [address], [address] [place] [address] Dougie Lord MD [address] [address] Scheduling Appointments (Schedule patient for Imaging Genicular RFA Right (89375) and 1m follow ) Social History Tobacco [...] often do you attend chur ch or pentecostalism services? More than 4 times per year 02/11/2024 Do you belong to any clubs o r organizations such as gnosticist groups, unions, fraternal or athletic groups, or [...] time in the past 12 m [facility], were you homeless or living in a [...] on file Legal Sex Female 12:21 AM OBSTETRICS GYNECOLOGY MD Gender Identity Not on file Sexual Orientation [...] stairs Contact your local community or senior [place] for information on exercise, fall prevention programs, or options for improving home safety. documented as of this encounter Visit Diagnoses Not on filedocumented in this encounter Care Teams Veterinary Inspector Relationship Specialty Start Date End Date Tom Paz MD PCP - General 09/09/16 Tab Taylor MD [address] [place] [address] Consulting Physician Cardiology 01/03/20 Favian Caceres MD [address] [place] [address] Consulting Physician Rheumatology 08/28/23 documented as of this encounter
--- OUTSIDE RECORDS SUMMARY | 2025-03-14 15:39 | XMS_ITS | Clinical Summary ---
Author Organization [facility] Address [address] [place] [address] Care Team Providers Care Spooler Rubber Strand Name Role Phone Tom Paz MD Primary Care Provider [phone] Allergies Active Allergy Reactions Criticality Noted Date [...] blisters Etanercept Swelling Low 12/09/2023 Embrel Gum Ktwoyl-Lhekns-Zxka-Alcoho l Rash Low 12/09/2023 Mastisol - blisters [...] this topic Medical Devices Implanted Type Area Case Filler Device Identifier Shelf Expiration Date Model / Serial / Lot Tyrx Antibacterial Envelope Med [id number] - [id number] Implanted:Qty: 1 on 12/24/2023 at [facility] Mesh Left: Chest MED[employer]IC- CARD RHYTHM MGMT 10/01/2024 [id number] / / [id number] Neuro Stimulator Neuro Stimulator [employer] SC-1200 / / Description:leads: SC- Need lead numbers Dc Ppm Gen Implanted:Qty: 1 on 12/24/2023 by Burton Forbes MD at [facility] N/A: Chest Wall [id number] / [id number] / Explanted Type Area Case Filler Device Identifier Shelf Expiration Date Model / Serial / Lot Dc Eluna 8 Ppm Gen Explanted:Qty: 1 on 12/24/2023 by Burton Forbes MD at [facility] Pacemaker Chest Wall [employer] ELUNA 8 KRISTY / [id number] / Description:Implant date: Per Biotronik Rep - NOT MRI safe (extra cap lead -ABANDONED LEAD - NO MRI -lizandro 08/14/23 [address] [place] [address] MEDICARE PART A AND B [facility] [place] [id number] MEDICARE PART A AND B RX [employer] RX Member Subscriber Plan / Payer (Ef fective 2023-Present) Name:Naye Hart Relation to Subscriber:Self Name:Naye Hart Subscriber ID:Not on file Payer ID:Not on file Group ID:[id number] Type:RX Commercial Address: [address] Advance Directives For more information, please contact: [phone] Documents on File Type Date Recorded 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 [id number] PCP - General Family Practice 01/28/22
--- OUTSIDE RECORDS SUMMARY | 2025-03-14 15:39 | XMS_ITS | Encounter Summary ---
Author Organization [facility] Address [address] [place] [address] Phone Care Team Providers Care Retail Marketing Coordinator Name Role Phone Tom Paz MD Primary Care Provider [phone] Tab Taylor MD Unavailable [phone] Favian Caceres MD Unavailable [phone] Encounter Details Date Type Department Care Team (Late st Contact Info) Description 12/06/2024 E-Visit [facility] [address] [place] [address] Claudia Cristobal, [place] [address] [place] [address] Ultrasound Social History Tobacco Use Types Packs/Day Years Used Date Smoking Tobacco: Never Passive Smoke Exposure: Past Smokeless Tobacco: Never Alcohol Use Standard Drinks/Week Comments No 0 (1 standard drink = 0.6 oz pur e alcohol) [facility] Utilities Answer Date Recorded In the past 12 months has [employer] electric, gas, oil, or water company threatened [...] in the past 12 m [facility], were you homeless or living in a [...] on file 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
--- NOTE | 2025-03-14 16:30 | ED.BACK ---
HPI - Back Pain/Injury General Chief Complaint: Back Pain/Injury <TERRY hCo Last Filed: 03/14/25 16:40> Stated Complaint: back pain, surgery last week <TERRY Cho Last Filed: 03/14/25 16:40> Time Seen by Provider: 03/14/25 15:51 <TERRY Cho Last Filed: 03/14/25 16:40> Source: patient and old records reviewed <TERRY Cho Last Filed: 03/14/25 16:40> Mode of arrival: ambulatory <TERRY Cho Last Filed: 03/14/25 16:40> Limitations: no limitations <TERRY Cho Last Filed: 03/14/25 16:40> History of Present Illness HPI Narrative: Patient is a 59 y/o female who presents to the ED with c/o L lower back pain. Patient is 1 week status post left SI joint fusion, performed here by Dr. Ramirez. She reports she has been having persistent pain throughout her left lower back, worse with any type of movement/walking. Patient was referred back to the ED today by Dr. Rmairez d/t concern for loose hardware requiring repeat surgery. Dr. Ramirez did notify ED to inform us of patient coming. Patient denies bowel or bladder incontinence, saddle anesthesia, numbness, fevers. <TERRY Cho Last Filed: 03/14/25 16:40> Related Data Home Medications: Home Medications ?Medication ?Instructions ?Recorded ?Confirmed ?Last Taken ?Type golimumab 50 mg/0.5 mL 50 mg subcut MONTHLY 03/26/23 03/14/25 02/17/25 History subcutaneous pen injector (Simponi) aspirin 81 mg tablet,delayed 81 mg PO DAILY 07/01/23 03/14/25 02/28/25 History release mupirocin 2 % topical ointment 1 applic topical BID 07/01/23 03/14/25 Unknown History metoprolol tartrate 50 mg tablet 50 mg PO BID 10/22/23 03/14/2525 History fexofenadine 180 mg tablet 180 mg PO DAILY 10/14/24 03/14/25 03/06/25 History (Vicky Allergy) leflunomide 20 mg tablet 10 mg PO DAILY 11/10/24 03/14/25 03/06/25 History baclofen 5 mg tablet 5 mg PO TID PRN muscle spasm 03/14/25 03/14/25 Unknown History <Saira Foss PA-C - Last Filed: 03/14/25 16:40> Allergies/Adverse Reactions: Allergies Allergy/AdvReac Type Severity Reaction Status Date / Time meclizine Allergy Severe Rash Verified 03/14/25 15:45 carbamazepine (From Tegretol) Allergy Intermediate Blister Verified 03/14/25 15:45 2-octyl cyanoacrylate Allergy Mild Itching Verified 03/14/25 15:45 Cephalosporins Allergy Mild RASH Verified 03/14/25 15:45 clarithromycin Allergy Mild RASH Verified 03/14/25 15:45 imipramine Allergy Mild RASH Verified 03/14/25 15:45 Penicillins Allergy Mild HIVES Verified 03/14/25 15:45 cefuroxime (From Ceftin) Allergy Hives Verified 03/14/25 15:45 etanercept (From Enbrel) Allergy Redness of Verified 03/14/25 15:45 Skin hydromorphone (From Dilaudid) Allergy Hives Verified 03/14/25 15:45 oxycodone (From Percocet) Allergy Hives Verified 03/14/25 15:45 prochlorperazine (From Allergy Swelling Verified 03/14/25 15:45 Compazine) of Lip/Tongue/Throat propoxyphene (From Darvon) Allergy Hives Verified 03/14/25 15:45 propranolol (From Inderal [place]) Allergy Rash Verified 03/14/25 15:45 alcohol (From Mastisol AdvReac Severe Blister Verified 03/14/25 15:45 Adhesive) chloroxylenol (From [place] 7) AdvReac Severe rash Verified 03/14/25 15:45 gum mastic (From Mastisol AdvReac Severe Blister Verified 03/14/25 15:45 Adhesive) methyl salicylate (From AdvReac Severe Blister Verified 03/14/25 15:45 Mastisol Adhesive) storax (From Mastisol AdvReac Severe Blister Verified 03/14/25 15:45 Adhesive) tizanidine AdvReac Intermediate Hallucinati Verified 03/14/25 15:45 ng codeine AdvReac Unknown Vomiting Verified 03/14/25 15:45 diphenhydramine (From AdvReac Vomiting Verified 03/14/25 15:45 Benadryl) hydrocodone (From Vicodin) AdvReac Vomiting Verified 03/14/25 15:45 <Saira Foss PA-C - Last Filed: 03/14/25 16:40> Review of Systems Review of Systems: All systems reviewed & are unremarkable except as noted in HPI. <Saira Foss PA-C - Last Filed: 03/14/25 16:40> All systems reviewed & are unremarkable except as noted in HPI and below <Saira Foss PA-C - Last Filed: 03/14/25 16:40> [facility] Past Medical History Medical History: Medical History Knee pain Candidiasis Inflammation of pyloric mucosa Left shoulder pain Bilateral shoulder pain Stomach ulcer Leg edema, right Bilateral leg paresthesia Knee injury Pain of left femur Left thigh pain Coccygeal pain, acute COVID-19 COVID Loss of vision TMJ (temporomandibular joint disorder) Acquired deviated nasal septum Nosebleed Pacemaker Right shoulder pain Witnessed apneic spells Snoring Apnea Chronic GERD Presence of Amulet left atrial appendage closure device Pelvic pain Hematoma of left chest wall Topical med dermatitis Right hand pain Bilateral knee pain Lumbar pain Acute cervical myofascial strain Acute bacterial sinusitis Hypersomnolence Migraine Vomiting DVT (deep venous thrombosis) Flatulence Cervical pain Spasm of lumbar paraspinous muscle MCL sprain of left knee Abrasion of toe Lesion of skin of nose Pneumonia LLQ abdominal pain Knee pain Foreign body in ear BMI 29.0-29.9,adult Lumbar stenosis Foraminal stenosis of lumbar region Pancreatitis Diarrhea Family history of beta thalassemia Inappropriate sinus tachycardia Presence of IVC filter Fibromyalgia Rheumatoid arthritis Anxiety Depression Abnormality of heart beat Ear pain Wears glasses Lightheadedness Vertigo Presence of neurostimulator History of deep vein thrombosis Abdominal bloating Hypoglycemia Allergic reaction to allergy skin test Abdominal lump Anxiety about health Hyponatremia Allergic dermatitis Headache Degenerative joint disease of cervical and lumbar spine TIA (transient ischemic attack) Ataxia A-fib Confusion Atypical face pain D-dimer, elevated Left ear pain Rheumatoid arthritis, seronegative, multiple sites Foreign body of toe Groin pain Groin hematoma Restless leg syndrome Dizziness Lipid disorder Fracture of second toe, left, closed Atopic dermatitis Bradycardia Anemia, unspecified Essential (primary) hypertension Mixed hyperlipidemia Paroxysmal atrial fibrillation RSD (reflex sympathetic dystrophy) SVT (supraventricular tachycardia) <Saira Foss PA-C - Last Filed: 03/14/25 16:40> Surgical History Surgical History: Surgical History Hx of atrioventricular node ablation History of surgery on left wrist H/O cardiac radiofrequency ablation S/P IVC filter S/P insertion of spinal cord stimulator History of tubal ligation History of endometrial ablation H/O hernia repair Status post surgical removal of both fallopian tubes History of arthroscopic knee surgery History of back surgery History of permanent cardiac pacemaker placement 2019 pacemaker replaced 2023,updated 11/2024 <Saira Foss PA-C - Last Filed: 03/14/25 16:40> Family History Family History: Family History Grandparent Family history of blood dyscrasia Family history of Alzheimer's disease Family history of malignant neoplasm of cervix Mother Family history of Alzheimer's disease Thyroid activity decreased Father Family history of lung cancer Sibling Thyroid activity decreased Other Diabetes mellitus Family history of allergic disorder Family history of kidney disease Family history of malignant neoplasm of thyroid High cholesterol <Saira Foss PA-C - Last Filed: 03/14/25 16:40> Social History Social History: Social History Social History: Caffeine-none Smoking packs per day: 0 Smoking cigarettes per day: 0.0 Years smoked: 0 Smoking pack-years: 0.00 Smoking status: Never smoker Second hand tobacco smoke exposure: No Alcohol intake: never Substance use: never Substance use type: does not use Do You Feel Safe in your Home?: Yes Lack of Transportation: No Lack of Food: Never True Current Housing: I Have Housing Concerned About Future Housing: No Difficulty Paying Gas/Electric Bills: No Difficulty Paying for Meds: No Currently Unemployed: No Education: High School Diploma/GED Difficulty w/ Childcare or Family Care: No Living arrangements: alone Occupation/Education: retired 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 HEAD: Normocephalic, atraumatic. RESPIRATORY: Airway patent, respirations nonlabored. Clear to auscultation bilaterally, no rales, rhonchi, wheezing. CARDIOVASCULAR: Regular rate and rhythm MUSCULOSKELETAL: Moves all extremities. No gross deformities. SKIN: Warm, dry, normal color. Surgical incision approx 6cm to L lower back, intact, no evidence of dehiscence, very mild surrounding erythema. Area of skin blanching to lateral aspect of incision. Focal TTP. No focal fluctuance or evidence of abscess. No drainage. NEURO: A&O X3. Speech clear. No ataxic movements. PSYCHIATRIC: Appropriate mood and affect. Normal interaction. <Saira Foss PA-C - Last Filed: 03/14/25 16:40> Course GIS ENGINEER/PA Physician Supervision This visit was performed by both a physician and an APC. I performed all aspects of the MDM as documented. <Henri Up MD - Last Filed: 03/15/25 07:07> Vital Signs Vital signs: Vital Signs Temperature 98.3 F 03/14/25 15:40 Pulse Rate 88 03/14/25 15:40 Respiratory Rate 16 03/14/25 15:40 Blood Pressure 125/71 03/14/25 15:40 Pulse Oximetry 100 03/14/25 15:40 Oxygen Delivery Room Air 03/14/25 15:40 Temperature 97.7 F 03/15/25 06:17 Pulse Rate 70 03/15/25 06:17 Respiratory Rate 18 03/15/25 06:17 Blood Pressure 112/68 03/15/25 06:17 Pulse Oximetry 97 03/15/25 06:17 Oxygen Delivery Room Air 03/14/25 20:20 <Saira Foss PA-C - Last Filed: 03/14/25 16:40> Vital Signs Temperature 98.3 F 03/14/25 15:40 Pulse Rate 88 03/14/25 15:40 Respiratory Rate 16 03/14/25 15:40 Blood Pressure 125/71 03/14/25 15:40 Pulse Oximetry 100 03/14/25 15:40 Oxygen Delivery Room Air 03/14/25 15:40 Temperature 97.7 F 03/15/25 06:17 Pulse Rate 70 03/15/25 06:17 Respiratory Rate 18 03/15/25 06:17 Blood Pressure 112/68 03/15/25 06:17 Pulse Oximetry 97 03/15/25 06:17 Oxygen Delivery Room Air 03/14/25 20:20 <Henri Up MD - Last Filed: 03/15/25 07:07> MDM - Back Pain/Injury MDM Narrative Medical decision making narrative: Patient to be admitted by Dr. Ramirez. Did discuss case with him and informed patient was here. Does not require any further labs or imaging at this time. Will order prn pain medications. Patient on the OR schedule for tomorrow at 3:30 p.m.. Patient in agreement with plan and need for admission. <TERRY Cho Last Filed: 03/14/25 16:40> Medical Records Attestation: I reviewed the patient's medical records. <Saira Foss PA-C - Last Filed: 03/14/25 16:40> Discharge Plan Discharge Clinical Impression: S/P fusion of sacroiliac joint Pain in lower back Qualifiers: Chronicity: acute Back pain laterality: left Sciatica presence: without sciatica Qualified Code(s): M54.50 - Low back pain, unspecified <TERRY Cho Last Filed: 03/14/25 16:40> Patient Disposition: Still a Patient <TERRY Cho Last Filed: 03/14/25 16:40> Condition: Stable <Saira Foss PA-C - Last Filed: 03/14/25 16:40>
[2025-03-14] MEDS: ONDANSETRON INJ 4 MG/2 ML VIAL IV PUSH (16:38)
[2025-03-14] MEDS: MORPHINE SULFATE (*CRX) 4 MG/ML INJ IV PUSH ×2 (16:39→20:15)
--- NOTE | 2025-03-14 16:56 | ADMGEN ---
This patient, Naye Hart, was admitted to 2 Medical Room 242-. Patient/family oriented to hospital policies and general routines including ID bracelet, bed and alarms, visiting hours, pain management, procedures, bathroom and other care routines, personal items, smoking policy, room service/diet, and visiting hours. Information on how to activate the Rapid Response Team has been discussed. Patient/Family are encouraged to report perceived risks to care and to ask questions if they do not understand what they are told or what they should do.
[2025-03-15] VITALS (15 sets, daily range): BP systolic 103–143; BP diastolic 42–85; PULSE 70–94; RESP 12–18; TEMP 36.3–37.2; O2SAT 93–100
[2025-03-15] MEDS: KCL 20 MEQ/D5/0.45% SOD CHL 1,000 ML 100 ML IV CONT ×2 (04:29→22:32)
[2025-03-15] MEDS: MORPHINE SULFATE (*CRX) 4 MG/ML INJ IV PUSH ×4 (04:29→20:43)
--- NOTE | 2025-03-15 13:11 | WPDANESEPPF ---
Anes - Initial Pre Proc Eval Procedure: Operation Date: 03/15/25 15:30 Proposed Procedures p Removal Left Sacroiliac Joint Fusion Screw(Left) - Taran Ramirez MD Date/Time: 03/15/25 13:11 Surgeon: Tyron Kern MD Pre Op Diagnosis: Sacroiliitis Patient Data Age: 59 Gender: F Height: 1.73 m Weight: 86 kg Last Vital Signs Temp 36.4 C L 03/15/25 12:30 Pulse 74 03/15/25 12:30 Resp 16 03/15/25 12:30 BP 128/77 03/15/25 12:30 Pulse Ox 100 03/15/25 12:30 O2 Del Method Room Air 03/15/25 12:30 Allergies Allergy/AdvReac Type Severity Reaction Status Date / Time meclizine Allergy Severe Rash Verified 03/14/25 15:45 carbamazepine (From Tegretol) Allergy Intermediate Blister Verified 03/14/25 15:45 2-octyl cyanoacrylate Allergy Mild Itching Verified 03/14/25 15:45 Cephalosporins Allergy Mild RASH Verified 03/14/25 15:45 clarithromycin Allergy Mild RASH Verified 03/14/25 15:45 imipramine Allergy Mild RASH Verified 03/14/25 15:45 Penicillins Allergy Mild HIVES Verified 03/14/25 15:45 cefuroxime (From Ceftin) Allergy Hives Verified 03/14/25 15:45 etanercept (From Enbrel) Allergy Redness of Verified 03/14/25 15:45 Skin hydromorphone (From Dilaudid) Allergy Hives Verified 03/14/25 15:45 oxycodone (From Percocet) Allergy Hives Verified 03/14/25 15:45 prochlorperazine (From Allergy Swelling Verified 03/14/25 15:45 Compazine) of Lip/Tongue/Throat propoxyphene (From Darvon) Allergy Hives Verified 03/14/25 15:45 propranolol (From Inderal [place]) Allergy Rash Verified 03/14/25 15:45 alcohol (From Mastisol AdvReac Severe Blister Verified 03/14/25 15:45 Adhesive) chloroxylenol (From [place] 7) AdvReac Severe rash Verified 03/14/25 15:45 gum mastic (From Mastisol AdvReac Severe Blister Verified 03/14/25 15:45 Adhesive) methyl salicylate (From AdvReac Severe Blister Verified 03/14/25 15:45 Mastisol Adhesive) storax (From Mastisol AdvReac Severe Blister Verified 03/14/25 15:45 Adhesive) tizanidine AdvReac Intermediate Hallucinati Verified 03/14/25 15:45 ng codeine AdvReac Unknown Vomiting Verified 03/14/25 15:45 diphenhydramine (From AdvReac Vomiting Verified 03/14/25 15:45 Benadryl) hydrocodone (From Vicodin) AdvReac Vomiting Verified 03/14/25 15:45 Home Medications ?Medication ?Instructions ?Recorded ?Confirmed ?Type albuterol sulfate 90 mcg/actuation 1 inh inhalation Q4H PRN shortness 10/13/22 03/14/25 Rx aerosol inhaler (ProAir HFA) of breath or wheezing #6.7 grams epinephrine 0.3 mg/0.3 mL 0.3 mg (0.3 mL) IM ONCE PRN 03/20/23 03/14/25 Rx injection, auto-injector (EpiPen Allergic Reaction #2 ea 2-Ranulfo) golimumab 50 mg/0.5 mL 50 mg subcut MONTHLY 03/26/23 03/14/25 History subcutaneous pen injector (Simponi) promethazine 25 mg rectal 25 mg RECTAL Q6H PRN nausea and 06/04/23 03/14/25 Rx suppository (Promethegan) vomiting #12 ea aspirin 81 mg tablet,delayed 81 mg PO DAILY 07/01/23 03/14/25 History release mupirocin 2 % topical ointment 1 applic topical BID 07/01/23 03/14/25 History duloxetine 60 mg capsule,delayed 60 mg PO HS #90 caps 07/27/23 03/14/25 Rx release (Cymbalta) metoprolol tartrate 50 mg tablet 50 mg PO BID 10/22/23 03/14/25 History lidocaine 5 % topical patch 1 patch topical DAILY #15 ea 10/26/23 03/14/25 Rx pramipexole 1 mg tablet 1 mg PO BID #180 tabs 03/22/24 03/14/25 Rx triamcinolone acetonide 0.1 % 1 applic topical BID #80 grams 03/22/24 03/14/25 Rx topical cream diclofenac sodium 1 % topical gel See Rx Instructions .Route 04/26/24 03/14/25 Rx .COMPLEX #500 grams ondansetron 4 mg disintegrating 4 mg PO Q8H PRN nausea and 07/07/24 03/14/25 Rx tablet vomiting #20 tabs montelukast 10 mg tablet 10 mg PO DAILY #90 tabs 07/27/24 03/14/25 Rx (Singulair) rosuvastatin 40 mg tablet 40 mg PO DAILY #90 tabs 07/27/24 03/14/25 Rx fexofenadine 180 mg tablet 180 mg PO DAILY 10/14/24 03/14/25 History (Vicky Allergy) ropinirole 1 mg tablet 1 mg PO TID #270 tabs 10/21/24 03/14/25 Rx leflunomide 20 mg tablet 10 mg PO DAILY 11/10/24 03/14/25 History celecoxib 200 mg capsule 200 mg PO DAILY #30 caps 12/26/24 03/14/25 Rx Held on 03/09/25. Instructions: Resume on 05/31/25. pantoprazole 40 mg tablet,delayed 40 mg PO BID #1 tablet 12/26/24 03/14/25 Rx release sucralfate 1 gram tablet (Carafate) 1 g PO BID #60 tabs 01/09/25 03/14/25 Rx nystatin 100,000 unit/gram topical 1 applic topical BID #30 grams 02/02/25 03/14/25 Rx ointment nitroglycerin 0.4 mg sublingual 0.4 mg sublingual Q5MIN PRN Chest 02/04/25 03/14/25 Rx tablet (Nitrostat) Pain #25 tabs hydroxyzine HCl 25 mg tablet 25 mg PO Q8H itching #180 tabs 02/28/25 03/14/25 Rx tramadol 50 mg tablet 100 mg (2 x 50 mg) PO Q4H PRN Pain 03/09/25 03/14/25 Rx Rated 7-10 7 days #42 tabs triamcinolone acetonide 0.5 % 1 applic topical DAILY #22 grams 03/13/25 03/14/25 Rx topical cream baclofen 5 mg tablet 5 mg PO TID PRN muscle spasm 03/14/25 03/14/25 History diazepam 5 mg tablet (Valium) 5 mg PO TID PRN muscle spasm #30 03/14/25 03/14/25 Rx tabs morphine 15 mg immediate release 15 mg PO Q4H PRN pain #30 tabs 03/14/25 03/14/25 Rx tablet Patient hx anesthesia problems: none Family hx anesthesia problems: none Results Review: All pre-operative results and documents have been reviewed as part of the pre-operative evaluation. [facility] Past Medical History Medical History Knee pain Candidiasis Inflammation of pyloric mucosa Left shoulder pain Bilateral shoulder pain Stomach ulcer Leg edema, right Bilateral leg paresthesia Knee injury Pain of left femur Left thigh pain Coccygeal pain, acute COVID-19 COVID Loss of vision TMJ (temporomandibular joint disorder) Acquired deviated nasal septum Nosebleed Pacemaker Right shoulder pain Witnessed apneic spells Snoring Apnea Chronic GERD Presence of Amulet left atrial appendage closure device Pelvic pain Hematoma of left chest wall Topical med dermatitis Right hand pain Bilateral knee pain Lumbar pain Acute cervical myofascial strain Acute bacterial sinusitis Hypersomnolence Migraine Vomiting DVT (deep venous thrombosis) Flatulence Cervical pain Spasm of lumbar paraspinous muscle MCL sprain of left knee Abrasion of toe Lesion of skin of nose Pneumonia LLQ abdominal pain Knee pain Foreign body in ear BMI 29.0-29.9,adult Lumbar stenosis Foraminal stenosis of lumbar region Pancreatitis Diarrhea Family history of beta thalassemia Inappropriate sinus tachycardia Presence of IVC filter Fibromyalgia Rheumatoid arthritis Anxiety Depression Abnormality of heart beat Ear pain Wears glasses Lightheadedness Vertigo Presence of neurostimulator History of deep vein thrombosis Abdominal bloating Hypoglycemia Allergic reaction to allergy skin test Abdominal lump Anxiety about health Hyponatremia Allergic dermatitis Headache Degenerative joint disease of cervical and lumbar spine TIA (transient ischemic attack) Ataxia A-fib Confusion Atypical face pain D-dimer, elevated Left ear pain Rheumatoid arthritis, seronegative, multiple sites Foreign body of toe Groin pain Groin hematoma Restless leg syndrome Dizziness Lipid disorder Fracture of second toe, left, closed Atopic dermatitis Bradycardia Anemia, unspecified Essential (primary) hypertension Mixed hyperlipidemia Paroxysmal atrial fibrillation RSD (reflex sympathetic dystrophy) SVT (supraventricular tachycardia) Surgical History Surgical History Hx of atrioventricular node ablation History of surgery on left wrist H/O cardiac radiofrequency ablation S/P IVC filter S/P insertion of spinal cord stimulator History of tubal ligation History of endometrial ablation H/O hernia repair Status post surgical removal of both fallopian tubes History of arthroscopic knee surgery History of back surgery History of permanent cardiac pacemaker placement 2019 pacemaker replaced 2023,updated 11/2024 Family History Family History Grandparent Family history of blood dyscrasia Family history of Alzheimer's disease Family history of malignant neoplasm of cervix Mother Family history of Alzheimer's disease Thyroid activity decreased Father Family history of lung cancer Sibling Thyroid activity decreased Other Diabetes mellitus Family history of allergic disorder Family history of kidney disease Family history of malignant neoplasm of thyroid High cholesterol Social History Social History Social History: Caffeine-none Smoking packs per day: 0 Smoking cigarettes per day: 0.0 Years smoked: 0 Smoking pack-years: 0.00 Smoking status: Never smoker Second hand tobacco smoke exposure: No Alcohol intake: never Substance use: never Substance use type: does not use Do You Feel Safe in your Home?: Yes Lack of Transportation: No Lack of Food: Never True Current Housing: I Have Housing Concerned About Future Housing: No Difficulty Paying Gas/Electric Bills: No Difficulty Paying for Meds: No Currently Unemployed: No Education: High School Diploma/GED Difficulty w/ Childcare or Family Care: No Living arrangements: alone Occupation/Education: retired 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 Gender identity (if verbalized by the patient): Female Sexual Orientation (if Verbalized by the Patient): Straight or Heterosexual Spiritual care concerns: No Anes - Eval Final PreProcedure Day of Procedure 03/15/25 13:11 Patient weight: overweight Heart: regular rate and rhythm Lungs: decreased breath sounds Airway: Mallampati scale class II Neurological: alert and oriented Last oral intake: >/= 8 hours ASA classification: IV Emergent: no Anesthetic plan: proceed Anesthesia type and monitoring: general ETT and standard monitoring Results Review: All pre-operative results and documents have been reviewed as part of the pre-operative evaluation. Informed Consent: The patient's anesthetic plan and its attendant risks and benefits were discussed with the patient/family/POA. Questions were solicited and answers provided to the satisfaction of the patient/family/POA.
--- NOTE | 2025-03-15 13:35 | P.OP_ITS ---
Procedure Note - Detailed Date of Procedure 03/07/25 Pre-op Diagnosis Sacroiliitis Post-op Diagnosis Same Procedure Performed Left sacroiliac joint fusion Surgeon Taran Ramirez MD Anesthesia General Description of Procedure The patient was brought to the operating room in the supine position, was sedated, intubated placed under general anesthesia in routine fashion. She was then turned into the prone position on gel rolls. The of operation on the left buttock was examined, marked for incision, prepped and draped in routine sterile fashion. Incision was marked along the margin of the sacrum using lateral fluoroscopy. In the in outlet views were also checked and planned. 0.5% lidocaine with [id number] epinephrine was injected at the incision site. Intravenous antibiotics given prior to incision. Incision was made with a 10 blade scalpel. Bleeding was stopped with bipolar cautery. A wire was placed down to the ilium across the sacrum and confirmed in lateral view fluoroscopy to be within the margins of the sacrum and behind a lower line. This was advanced slightly and then on inlet and outlet views advanced across the SI joint, making sure to be within the anterior margin of the sacrum and short of the foraminal line. Sequential dilators were placed over the wire and a measurement taken. An 11.5 diameter device of the appropriate length was chosen and filled with magnetos and local autograft bone that was about to be obtained. The wire was extended and sequential drilling an d tapping was performed using outlet view fluoroscopy. The device was then placed using outlet view fluoroscopy and confirmed to be in good position short of the foraminal line. A guide tube was used to place a 2nd and 3rd wire and like fashion, using the same technique, a wire was placed, using lateral view fluoroscopy to make sure that it was within the margin of the sacrum on the ileum, advanced across the SI joint using inlet and outlet view fluoroscopy to confirm that it was behind the anterior margin of the sacrum and short of the foraminal line. Sequential dilation, measurement, advancement of the wire and sequential drilling and tapping were performed and a 2nd and 3rd 11.5 diameter device of the appropriate length was placed. Inlet, outlet and lateral view fluoroscopy was performed to confirm good position of all 3 devices which was confirmed. The wound was then copiously irrigated with bacitracin irrigation all bleeding stopped with bipolar and Bovie cautery and Gelfoam thrombin powder. The wound was then closed in layered fashion with 3-0 Vicryl interrupted sutures in the dermis and a running 4-0 Monocryl subcuticular stitch and the skin was dressed with a dressing was applied. The patient was allowed to wake up in the operating room was taken to the recovery room in stable condition. There were no immediate complications of this operation. All counts were reported correct at the end of the case. Blood loss was 25 cc. The patient was neurologically at her baseline postoperatively. Estimated Blood Loss 25 Complications None Condition Stable Disposition PACU [facility] Billing Surgery - Charge Forward: Surgery Billing
--- NOTE | 2025-03-15 13:44 | PM.IMHP ---
H&P: HPI History of Present Illness Date/Time: 03/15/25 13:44 Chief Complaint: Left buttock and leg pain Narrative: Dionne is a 59-year-old female who underwent a left sacroiliac joint fusion from a lateral approach with 3 devices placed across the ilium into the sacrum across the SI joint on 03/07/2025. This procedure was performed without complication the patient left the hospital ambulating and in good condition. She initially improved but then developed recurrent pain in the left buttock extending into the lower extremity. She describes an incident with a caregiver that may have heralded the onset of the symptoms. She also has noticed some drainage from her wound and a white eschar at its superior end. She has remained neurologically intact but has had difficulty ambulating because of these issues. It is painful for her to use the left leg and she feels pain going down the. She is not having specific muscle group weakness or dermatomal numbness and is not having any bowel or bladder issues. Review of Systems Review of Systems: All systems reviewed & are unremarkable except as noted in HPI and below Denies chills, Denies fever, Denies weight gain and Denies weight loss Eyes Denies change in vision and Denies diplopia ENT Denies disequilibrium Card Denies chest pain and Denies dyspnea Resp Denies cough and Denies dyspnea GI Denies abdominal pain, Denies change in bowel habits, Denies fecal incontinence and Denies vomiting Denies hematuria, Denies oliguria, Denies difficulty urinating, Denies dysuria, Denies urinary frequency, Denies urinary hesitancy, Denies urinary incontinence and Denies urinary urgency Musc Reports as per HPI Skin/ Breast Reports system reviewed and no additional complaints, except as documented Neuro Reports as per HPI Psych Reports no additional complaints, Denies depression and Denies hopelessness Endo Reports no additional complaints and Denies polyuria [place]/ Lymph Reports no additional complaints Aller/ Immun Reports no additional complaints PMFSH Past Medical History Medical History Knee pain Candidiasis Inflammation of pyloric mucosa Left shoulder pain Bilateral shoulder pain Stomach ulcer Leg edema, right Bilateral leg paresthesia Knee injury Pain of left femur Left thigh pain Coccygeal pain, acute COVID-19 COVID Loss of vision TMJ (temporomandibular joint disorder) Acquired deviated nasal septum Nosebleed Pacemaker Right shoulder pain Witnessed apneic spells Snoring Apnea Chronic GERD Presence of Amulet left atrial appendage closure device Pelvic pain Hematoma of left chest wall Topical med dermatitis Right hand pain Bilateral knee pain Lumbar pain Acute cervical myofascial strain Acute bacterial sinusitis Hypersomnolence Migraine Vomiting DVT (deep venous thrombosis) Flatulence Cervical pain Spasm of lumbar paraspinous muscle MCL sprain of left knee Abrasion of toe Lesion of skin of nose Pneumonia LLQ abdominal pain Knee pain Foreign body in ear BMI 29.0-29.9,adult Lumbar stenosis Foraminal stenosis of lumbar region Pancreatitis Diarrhea Family history of beta thalassemia Inappropriate sinus tachycardia Presence of IVC filter Fibromyalgia Rheumatoid arthritis Anxiety Depression Abnormality of heart beat Ear pain Wears glasses Lightheadedness Vertigo Presence of neurostimulator History of deep vein thrombosis Abdominal bloating Hypoglycemia Allergic reaction to allergy skin test Abdominal lump Anxiety about health Hyponatremia Allergic dermatitis Headache Degenerative joint disease of cervical and lumbar spine TIA (transient ischemic attack) Ataxia A-fib Confusion Atypical face pain D-dimer, elevated Left ear pain Rheumatoid arthritis, seronegative, multiple sites Foreign body of toe Groin pain Groin hematoma Restless leg syndrome Dizziness Lipid disorder Fracture of second toe, left, closed Atopic dermatitis Bradycardia Anemia, unspecified Essential (primary) hypertension Mixed hyperlipidemia Paroxysmal atrial fibrillation RSD (reflex sympathetic dystrophy) SVT (supraventricular tachycardia) Surgical History Surgical History Hx of atrioventricular node ablation History of surgery on left wrist H/O cardiac radiofrequency ablation S/P IVC filter S/P insertion of spinal cord stimulator History of tubal ligation History of endometrial ablation H/O hernia repair Status post surgical removal of both fallopian tubes History of arthroscopic knee surgery History of back surgery History of permanent cardiac pacemaker placement 2019 pacemaker replaced 2023,updated 11/2024 Family History Family History Grandparent Family history of blood dyscrasia Family history of Alzheimer's disease Family history of malignant neoplasm of cervix Mother Family history of Alzheimer's disease Thyroid activity decreased Father Family history of lung cancer Sibling Thyroid activity decreased Other Diabetes mellitus Family history of allergic disorder Family history of kidney disease Family history of malignant neoplasm of thyroid High cholesterol Social History Social History Social History: Caffeine-none Smoking packs per day: 0 Smoking cigarettes per day: 0.0 Years smoked: 0 Smoking pack-years: 0.00 Smoking status: Never smoker Second hand tobacco smoke exposure: No Alcohol intake: never Substance use: never Substance use type: does not use Do You Feel Safe in your Home?: Yes Lack of Transportation: No Lack of Food: Never True Current Housing: I Have Housing Concerned About Future Housing: No Difficulty Paying Gas/Electric Bills: No Difficulty Paying for Meds: No Currently Unemployed: No Education: High School Diploma/GED Difficulty w/ Childcare or Family Care: No Living arrangements: alone Occupation/Education: retired 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 Gender identity (if verbalized by the patient): Female Sexual Orientation (if Verbalized by the Patient): Straight or Heterosexual Spiritual care concerns: No Meds Home Medications and Allergies Home Medications ?Medication ?Instructions ?Recorded ?Confirmed ?Type albuterol sulfate 90 mcg/actuation 1 inh inhalation Q4H PRN shortness 10/13/22 03/14/25 Rx aerosol inhaler (ProAir HFA) of breath or wheezing #6.7 grams epinephrine 0.3 mg/0.3 mL 0.3 mg (0.3 mL) IM ONCE PRN 03/20/23 03/14/25 Rx injection, auto-injector (EpiPen Allergic Reaction #2 ea 2-Ranulfo) golimumab 50 mg/0.5 mL 50 mg subcut MONTHLY 03/26/23 03/14/25 History subcutaneous pen injector (Simponi) promethazine 25 mg rectal 25 mg RECTAL Q6H PRN nausea and 06/04/23 03/14/25 Rx suppository (Promethegan) vomiting #12 ea aspirin 81 mg tablet,delayed 81 mg PO DAILY 07/01/23 03/14/25 History release mupirocin 2 % topical ointment 1 applic topical BID 07/01/23 03/14/25 History duloxetine 60 mg capsule,delayed 60 mg PO HS #90 caps 07/27/23 03/14/25 Rx release (Cymbalta) metoprolol tartrate 50 mg tablet 50 mg PO BID 10/22/23 03/14/25 History lidocaine 5 % topical patch 1 patch topical DAILY #15 ea 10/26/23 03/14/25 Rx pramipexole 1 mg tablet 1 mg PO BID #180 tabs 03/22/24 03/14/25 Rx triamcinolone acetonide 0.1 % 1 applic topical BID #80 grams 03/22/24 03/14/25 Rx topical cream diclofenac sodium 1 % topical gel See Rx Instructions .Route 04/26/24 03/14/25 Rx .COMPLEX #500 grams ondansetron 4 mg disintegrating 4 mg PO Q8H PRN nausea and 07/07/24 03/14/25 Rx tablet vomiting #20 tabs montelukast 10 mg tablet 10 mg PO DAILY #90 tabs 07/27/24 03/14/25 Rx (Singulair) rosuvastatin 40 mg tablet 40 mg PO DAILY #90 tabs 07/27/24 03/14/25 Rx fexofenadine 180 mg tablet 180 mg PO DAILY 10/14/24 03/14/25 History (Vicky Allergy) ropinirole 1 mg tablet 1 mg PO TID #270 tabs 10/21/24 03/14/25 Rx leflunomide 20 mg tablet 10 mg PO DAILY 11/10/24 03/14/25 History celecoxib 200 mg capsule 200 mg PO DAILY #30 caps 12/26/24 03/14/25 Rx Held on 03/09/25. Instructions: Resume on 05/31/25. pantoprazole 40 mg tablet,delayed 40 mg PO BID #1 tablet 12/26/24 03/14/25 Rx release sucralfate 1 gram tablet (Carafate) 1 g PO BID #60 tabs 01/09/25 03/14/25 Rx nystatin 100,000 unit/gram topical 1 applic topical BID #30 grams 02/02/25 03/14/25 Rx ointment nitroglycerin 0.4 mg sublingual 0.4 mg sublingual Q5MIN PRN Chest 02/04/25 03/14/25 Rx tablet (Nitrostat) Pain #25 tabs hydroxyzine HCl 25 mg tablet 25 mg PO Q8H itching #180 tabs 02/28/25 03/14/25 Rx tramadol 50 mg tablet 100 mg (2 x 50 mg) PO Q4H PRN Pain 08/21/25 08/26/25 Rx Rated 7-10 7 days #42 tabs triamcinolone acetonide 0.5 % 1 applic topical DAILY #22 grams 03/13/25 03/14/25 Rx topical cream baclofen 5 mg tablet 5 mg PO TID PRN muscle spasm 03/14/25 03/14/25 History diazepam 5 mg tablet (Valium) 5 mg PO TID PRN muscle spasm #30 03/14/25 03/14/25 Rx tabs morphine 15 mg immediate release 15 mg PO Q4H PRN pain #30 tabs 03/14/25 03/14/25 Rx tablet Allergies Allergy/AdvReac Type Severity Reaction Status Date / Time meclizine Allergy Severe Rash Verified 03/14/25 15:45 carbamazepine (From Tegretol) Allergy Intermediate Blister Verified 03/14/25 15:45 2-octyl cyanoacrylate Allergy Mild Itching Verified 03/14/25 15:45 Cephalosporins Allergy Mild RASH Verified 03/14/25 15:45 clarithromycin Allergy Mild RASH Verified 03/14/25 15:45 imipramine Allergy Mild RASH Verified 03/14/25 15:45 Penicillins Allergy Mild HIVES Verified 03/14/25 15:45 cefuroxime (From Ceftin) Allergy Hives Verified 03/14/25 15:45 etanercept (From Enbrel) Allergy Redness of Verified 03/14/25 15:45 Skin hydromorphone (From Dilaudid) Allergy Hives Verified 03/14/25 15:45 oxycodone (From Percocet) Allergy Hives Verified 03/14/25 15:45 prochlorperazine (From Allergy Swelling Verified 03/14/25 15:45 Compazine) of Lip/Tongue/Throat propoxyphene (From Darvon) Allergy Hives Verified 03/14/25 15:45 propranolol (From Inderal [place]) Allergy Rash Verified 03/14/25 15:45 alcohol (From Mastisol AdvReac Severe Blister Verified 03/14/25 15:45 Adhesive) chloroxylenol (From [place] 7) AdvReac Severe rash Verified 03/14/25 15:45 gum mastic (From Mastisol AdvReac Severe Blister Verified 03/14/25 15:45 Adhesive) methyl salicylate (From AdvReac Severe Blister Verified 03/14/25 15:45 Mastisol Adhesive) storax (From Mastisol AdvReac Severe Blister Verified 03/14/25 15:45 Adhesive) tizanidine AdvReac Intermediate Hallucinati Verified 03/14/25 15:45 ng codeine AdvReac Unknown Vomiting Verified 03/14/25 15:45 diphenhydramine (From AdvReac Vomiting Verified 03/14/25 15:45 Benadryl) hydrocodone (From Vicodin) AdvReac Vomiting Verified 03/14/25 15:45 Vital Signs Vital Signs - 24 hr 03/14/25 15:40 03/14/25 16:30 03/14/25 17:16 Temperature 98.3 F 98.3 F 98.4 F Pulse Rate 88 87 78 Respiratory Rate 16 16 18 Blood Pressure 125/71 111/61 113/64 Pulse Oximetry 100 100 97 Oxygen Delivery Room Air 03/14/25 20:20 03/14/25 21:27 03/14/25 21:42 Temperature 97.6 F 98.2 F Pulse Rate 85 78 Respiratory Rate 18 18 Blood Pressure 129/72 113/61 Pulse Oximetry 97 96 Oxygen Delivery Room Air 03/14/25 21:57 03/14/25 22:12 03/14/25 22:27 Temperature 98.2 F 98.1 F 98.1 F Pulse Rate 81 79 82 Respiratory Rate 18 18 18 Blood Pressure 110/60 112/65 112/62 Pulse Oximetry 96 95 96 Oxygen Delivery 03/14/25 22:34 03/14/25 23:27 03/15/25 00:27 Temperature 98.4 F 98.4 F 97.7 F Pulse Rate 83 83 76 Respiratory Rate 18 18 18 Blood Pressure 115/60 108/63 103/61 Pulse Oximetry 94 97 96 Oxygen Delivery 03/15/25 04:27 03/15/25 06:17 03/15/25 08:00 Temperature 97.4 F L 97.7 F Pulse Rate 80 70 Respiratory Rate 18 18 Blood Pressure 107/42 L 112/68 Pulse Oximetry 100 97 Oxygen Delivery Room Air 03/15/25 12:30 Temperature 97.5 F L Pulse Rate 74 Respiratory Rate 16 Blood Pressure 128/77 Pulse Oximetry 100 Oxygen Delivery Room Air Exam Narrative: General: cooperative, no acute distress, well developed, alert and awake Orientation/Consciousness: oriented to person, oriented to place and oriented to time Constitutional Limitations: no limitations Other: The patient is a normally developed, normal appearing male sitting on the examination table in no acute distress. He is awake, alert, and oriented x3 with good fund of knowledge, recall of events, and fluent speech. HENMT Head: normocephalic and atraumatic Ears: external ears normal Face/Nose/Sinus: Normal external nose present Eyes Eyelids: eyelids normal Pupils: Yes Pupils normal by confrontation EOM: EOMs intact bilaterally Neck General: Yes no meningeal signs, Yes supple and Yes no JVD Resp Effort/Inspection: normal respiratory effort and able to speak in complete sentences Cardio Rate: Yes regular rate GI Inspection: No abdominal distension Musc Other: Examination of the back reveals tenderness over the left sacroiliac joint and in the buttock. It is milder in the paraspinous lumbar musculature. Skin General: normal color Neuro General: Yes oriented to person, Yes oriented to place, Yes oriented to time, Yes normal cognition and Yes no meningeal signs Cranial Nerves: Yes CN's II-XII intact bilaterally Other: Motor: Strength is normal, 5/5, throughout all muscle groups of the bilateral lower extremities to direct confrontation. Sensory: Sensation is intact to light touch throughout the lower extremities bilaterally. Reflexes: Deep tendon reflexes are normal and symmetric at the knees and difficult to elicit the ankles bilaterally. There is no clonus. Gait: Gait is antalgic with an assistive device in the form of a walker. Psych Appearance: grossly normal Mental status: Yes mental status grossly normal Mood: congruent mood Affect: Yes normal affect Speech/Movement: Normal speech and movement present Attitude: Yes cooperative Thought Content: Normal thought content present Wound There is eschar at the superior end of the wound which is about a cm across and some clear drainage there. There is mild erythema near the wound. Assessment and Plan Assessment and plan (1) S/P fusion of sacroiliac joint: Code(s): Z98.1 - Arthrodesis status Status: Acute Plan Dionne is a 5-year-old female status post left sacroiliac joint fusion who was found on CT scan to have 1 of the devices through the anterior cortex of the sacrum. This may be causing back and lower extremity discomfort and and will the sleep be removed. She also has eschar formation on the wound and some drainage. I do not notice overt purulence but the wound will be observed at the time of surgery. It would be very early to have even a superficial infection. Is not clear to me whether the device that goes through the anterior wall of the sacrum was in that position during surgery or it migrated after surgery. However, x-rays taken during surgery and after demonstrated good position of all the devices and no violation of the anterior wall the sacrum and she initially did well. In any case, we will remove that device and explore her wound. I described to her this operation, its risks, potential benefits, the operative and postoperative course in detail and answered all her questions personally. She indicates understanding and elects to proceed with that operation.
--- NOTE | 2025-03-15 13:51 | WPDHPUPDATE1 ---
History and Physical Update Update Date/Time: 03/15/25 13:51 History and Physical has been reviewed, including an updated exam of the patient. There are NO changes in the patient's condition. Risks, benefits, and alternatives have been discussed and questions answered. Patient agrees to proceed with procedure.
[2025-03-15] MEDS: CLINDAMYCIN 900 MG/D5W 50 ML 900 MG/50 ML PIGGYBACK 50 MG IVPB (14:10)
[2025-03-15] MEDS: LACTATED RINGERS 1,000 ML 30 ML IV CONT ×2 (15:26→15:59)
--- NOTE | 2025-03-15 15:31 | P.OP_ITS ---
Procedure Note - Detailed Date of Procedure 03/15/25 Pre-op Diagnosis Sacroiliitis Post-op Diagnosis Same Procedure Performed Removal of sacroiliac joint fusion screw Surgeon Taran Ramirez MD Anesthesia General Description of Procedure Patient was brought to the operating room in the supine position, was sedated, intubated placed under general anesthesia in routine fashion. A CT she was then turned into the prone position on gel rolls. There operation on her left buttock was examined, marked for incision, prepped and draped in routine sterile fashion. Incision was marked over the previous incision along the line of the sacrum. This area was injected with local anesthetic. Intravenous antibiotics given prior to incision. Like bleeding was stopped at the skin edges. An elliptical incision was her made on both sides of the incision to remove the eschar that had formed along the wound. Bleeding edges were noted and then coagulated. A sharp K-wire was placed and using fluoroscopy in the lateral view and then in the in then outlet views it was used to cannulate the most superior sacroiliac screw. Dilators were placed over the wire. A screwdriver was placed over the wire down the greatest dilator until it engaged the screw head. The screw was then removed using the appropriate school bus driver/teacher assistant. The K-wire and dilators were also removed. Lateral, inlet and outlet views were again taken a to demonstrate good position of the remaining screws. The wound was copiously irrigated with bacitracin irrigation all bleeding stopped with bipolar cautery. Vancomycin powder was applied inside the wound. The wound was then closed in layered fashion with 3-0 Vicryl interrupted sutures in the dermis and a running 4-0 Monocryl subcuticular stitch in the skin and was dressed with benzoin and Steri-Strips and a gauze dressing. Patient was allowed to wake up in the operating room and was taken to the recovery room in stable condition. There were no immediate complications of this operation. All counts reported correct at the end of the case. Blood loss was 25 cc. The patient was neurologically at her baseline postoperatively. Estimated Blood Loss 25 Complications None Condition Stable Disposition PACU [facility] Billing Surgery - Charge Forward: Surgery Billing
[2025-03-15] MEDS: ONDANSETRON INJ 4 MG/2 ML VIAL IV PUSH ×2 (15:50→16:48)
--- NOTE | 2025-03-15 16:01 | SUR.PHASEI ---
1600 - dr. moy in PACU talking with pt.
[2025-03-15] MEDS: PANTOPRAZOLE 40 MG TABLET PO (17:42)
[2025-03-15] MEDS: PRAMIPEXOLE 1 MG TABLET PO (17:42)
[2025-03-15] MEDS: SUCRALFATE 1 GM TABLET PO (17:43)
[2025-03-15] MEDS: VANCOMYCIN 1,250 MG/NS 250 ML 1,250 MG/250 ML BAG 166.67 MG IVPB (17:48)
[2025-03-15] MEDS: METOPROLOL TARTRATE 50 MG TAB PO (20:36)
[2025-03-15] MEDS: DULoxetine HCL 60 MG CAPSULE.DR PO (20:37)
[2025-03-15] MEDS: DOCUSATE SODIUM 100 MG CAPSULE PO (20:37)
[2025-03-15] MEDS: ONDANSETRON HCL ODT 4 MG TABLET PO (20:52)
[2025-03-15] MEDS: PROMETHAZINE HCL 25 MG SUPP.RECT RECTAL (22:39)
[2025-03-16] VITALS (7 sets, daily range): BP systolic 110–131; BP diastolic 59–67; PULSE 70–80; RESP 16–20; TEMP 36.1–36.6; O2SAT 96–100
[2025-03-16] MEDS: ONDANSETRON INJ 4 MG/2 ML VIAL IV PUSH ×2 (00:28→10:08)
[2025-03-16] MEDS: MORPHINE SULFATE (*CRX) 4 MG/ML INJ IV PUSH ×5 (01:28→20:57)
[2025-03-16] MEDS: ONDANSETRON HCL ODT 4 MG TABLET PO ×2 (05:30→13:28)
[2025-03-16] MEDS: VANCOMYCIN 1,250 MG/NS 250 ML 1,250 MG/250 ML BAG 166.67 MG IVPB ×2 (05:30→17:22)
[2025-03-16 05:45] LABS: Estimated CRCL calculation 85 ml/min; Estimated Glomerular Filt Rate > 60
[2025-03-16] MEDS: DOCUSATE SODIUM 100 MG CAPSULE PO (08:10)
[2025-03-16] MEDS: SUCRALFATE 1 GM TABLET PO ×2 (08:10→17:22)
[2025-03-16] MEDS: METOPROLOL TARTRATE 50 MG TAB PO ×2 (08:10→20:53)
[2025-03-16] MEDS: PANTOPRAZOLE 40 MG TABLET PO ×2 (08:12→17:21)
[2025-03-16] MEDS: LEFLUNOMIDE 10 MG TABLET PO (08:12)
[2025-03-16] MEDS: LORATADINE 10 MG TABLET PO (08:12)
[2025-03-16] MEDS: ROSUVASTATIN 20 MG TABLET 40 MG PO (08:12)
[2025-03-16] MEDS: PRAMIPEXOLE 1 MG TABLET PO ×2 (08:12→17:22)
[2025-03-16] MEDS: MONTELUKAST SODIUM 10 MG TABLET PO (08:13)
--- NOTE | 2025-03-16 09:40 | WPDANESPN ---
Anes - Prog Note Post-Op Date/Time: 03/16/25 09:40 Cardiovascular status: normal Respiratory status: normal Airway patency: baseline Mental status: baseline Post-Op hydration status: normal Vital Signs: Last Vital Signs Temp 36.4 C 03/16/25 00:27 Pulse 80 03/16/25 08:10 Resp 16 03/16/25 00:27 BP 131/59 L 03/16/25 00:27 Pulse Ox 97 03/16/25 00:27 O2 Del Method Room Air 03/15/25 20:30 O2 Flow Rate 8 03/15/25 15:35 Pain Score (VAS): 4 I/O: Intake & Output 03/15/25 03/16/25 03/16/25 23:59 07:59 15:59 Intake Total 790 1246.7 Balance 790 1246.7 Laboratory Tests 03/16/25 04:28 03/16/25 04:28 Creatinine 0.70 Estim Creat Clear Calc 85 Estimated GFR > 60 Patient Feedback: Patient satisfied with anesthetic care.
[2025-03-16] MEDS: KCL 20 MEQ/D5/0.45% SOD CHL 1,000 ML 100 ML IV CONT ×2 (10:10→21:07)
--- NOTE | 2025-03-16 11:18 | PC.NURSE ---
Patient was speaking with Peg (patient advocate) and requested to be confidential. RN called OB admitting and patient is now confidential.
[2025-03-16] MEDS: MORPHINE SULFATE (*CRX) 15 MG TAB IR PO (13:29)
[2025-03-16] MEDS: PROMETHAZINE HCL 25 MG SUPP.RECT RECTAL (14:20)
--- NOTE | 2025-03-16 18:35 | WPDNEUROSGPN ---
Progress Note: A&P Assessment and Plan (1) Sacroiliitis: Code(s): M46.1 - Sacroiliitis, not elsewhere classified Status: Acute Plan Dionne is doing well status post removal of 1 of 3 sacroiliac fusion devices. She will continue to work with physical and occupational therapy. When she is making transfers convincingly independently and we feel that she is safe at home we will allow her to be discharged. Subjective Date/time seen: 03/16/25 18:35 Interval history: Naye is postop day 1 status post left-sided removal of sacroiliac joint fusion device. One of the 3 was removed. She is doing much better today from the standpoint of the lower extremity symptoms that she was experiencing. She has no more left leg pain. She feels as though her sacroiliac discomfort is also improved after the original procedure and this 1. She is working with physical and occupational therapy. She is not quite making transfers independently yet. Exam Narrative: Strength is normal the bilateral lower extremities Sensation is intact to light touch in lower extremities Her dressing is clean, dry and intact Objective Data Vital Signs Vital Signs: Vital Signs - 24 hr 03/15/25 20:30 03/15/25 20:36 03/15/25 21:04 Temperature 97.5 F L Pulse Rate 84 83 Respiratory Rate 16 Blood Pressure 114/61 Pulse Oximetry 96 Oxygen Delivery Room Air 03/16/25 00:27 03/16/25 08:10 03/16/25 08:12 Temperature 97.6 F Pulse Rate 80 80 Respiratory Rate 16 16 Blood Pressure 131/59 L Pulse Oximetry 97 96 Oxygen Delivery Room Air 03/16/25 10:53 03/16/25 11:10 03/16/25 16:05 Temperature 97.9 F 97 F L Pulse Rate 80 70 Respiratory Rate 16 16 Blood Pressure 124/64 118/67 Pulse Oximetry 96 100 Oxygen Delivery Room Air Intake/Output Intake/Output: Intake & Output 03/13/25 03/14/25 03/15/25 03/16/25 23:59 23:59 23:59 23:59 Intake Total 902 500 3011.0 Output Total 1600 Balance 479 875 2538.0 Meds/Results Medications: Active Medications Generic Name Dose Route Start Last Admin Trade Name Freq PRN Reason Stop Dose Admin Al Hydrox/Mg Hydrox/Simethicone 20 ml 03/15/25 16:14 Mag Hydrox/Al Hydrox/Simeth 30 Ml Udc PO Q4H PRN Indigestion/Heartburn Albuterol 1 puff 03/15/25 16:14 Albuterol Sulfate (*Sp) Aerosol 1 Puff INHALATION Q4H PRN Shortness Of Breath Or Wheezing Baclofen 5 mg 03/16/25 10:40 Baclofen 5 Mg Tablet PO TID PRN Muscle Spasm Bisacodyl 10 mg 03/15/25 16:14 Bisacodyl 10 Mg Suppository RECTAL DAILY PRN Constipation Diazepam 5 mg 03/16/25 10:40 Diazepam (*Crx) 5 Mg Tablet PO TID PRN Muscle Spasm Docusate Sodium 100 mg 03/15/25 21:00 03/16/25 08:10 Docusate Sodium 100 Mg Capsule PO 100 mg Q12HR WATSON Administration Duloxetine HCl 60 mg 03/15/25 21:00 03/15/25 20:37 Duloxetine Hcl 60 Mg Capsule.Dr PO 60 mg HS WATSON Administration Hydroxyzine HCl 25 mg 03/15/25 22:00 03/16/25 13:31 Hydroxyzine Hcl 25 Mg Tablet PO 25 mg Q8HR WATSON Administration Potassium Chloride/Dextrose/Sod Cl 1,000 mls @ 100 mls/hr 03/15/25 16:14 03/16/25 17:22 Kcl 20 Meq/D5/0.45% Sod Chl IV CONT 0 mls/hr .Q10H WATSON Infusion Vancomycin HCl 1,250 mg in 250 mls @ 166.667 mls/hr 03/15/25 18:00 03/16/25 17:22 Vancomycin 1,250 Mg/Ns 250 Ml IVPB 166.67 mls/hr Q12H WATSON Administration Leflunomide 10 mg 03/16/25 09:00 03/16/25 08:12 Leflunomide 10 Mg Tablet PO 10 mg DAILY WATSON Administration Lidocaine 1 patch 03/16/25 09:00 03/16/25 08:13 Lidocaine 5% Patch TOPICAL Not Given DAILY WATSON Loratadine 10 mg 03/16/25 09:00 03/16/25 08:12 Loratadine 10 Mg Tablet PO 10 mg QAM WATSON Administration Metoprolol Tartrate 50 mg 03/15/25 21:00 03/16/25 08:10 Metoprolol Tartrate 50 Mg Tab PO 50 mg Q12HR WATSON Administration Montelukast Sodium 10 mg 03/16/25 09:00 03/16/25 08:13 Montelukast Sodium 10 Mg Tablet PO 10 mg DAILY WATSON Administration Morphine Sulfate 15 mg 03/15/25 16:14 03/16/25 13:29 Morphine Sulfate (*Crx) 15 Mg Tab Ir PO 15 mg Q4H PRN Administration Pain 7-10 Morphine Sulfate 4 mg 03/15/25 16:14 03/16/25 10:08 Morphine Sulfate (*Crx) 4 Mg/Ml Inj IV PUSH 4 mg Q2H PRN Administration Pain Rated 7-10 Nitroglycerin 0.4 mg 03/15/25 16:14 Nitroglycerin Sl 0.4 Mg Tablet SUBLINGUAL Q5MIN PRN Chest Pain Ondansetron HCl 4 mg 03/15/25 16:14 03/16/25 13:28 Ondansetron Hcl Odt 4 Mg Tablet PO 4 mg Q8H PRN Administration Nausea And Vomiting Pantoprazole Sodium 40 mg 03/15/25 17:00 03/16/25 17:21 Pantoprazole 40 Mg Tablet PO 40 mg BID WATSON Administration Pramipexole Dihydrochloride 1 mg 03/15/25 17:00 03/16/25 17:22 Pramipexole 1 Mg Tablet PO 1 mg BID WATSON Administration Promethazine HCl 25 mg 03/16/25 12:07 03/16/25 14:20 Promethazine Hcl 25 Mg Supp.Rect RECTAL 25 mg Q6H PRN Administration Nausea And Vomiting Ropinirole HCl 1 mg 03/15/25 17:00 03/16/25 17:21 Ropinirole Hcl 1 Mg Tablet PO 1 mg TID WATSON Administration Rosuvastatin Calcium 40 mg 03/16/25 09:00 03/16/25 08:12 Rosuvastatin 20 Mg Tablet PO 40 mg DAILY WATSON Administration Senna/Docusate Sodium 1 tab 03/15/25 16:14 Senna/Docusate Sodium Tablet PO HS PRN Constipation Sucralfate 1 gm 03/15/25 17:00 03/16/25 17:22 Sucralfate 1 Gm Tablet PO 1 gm BID WATSON Administration Radiology Results: ITS Impressions Fluoroscopy 03/15/25 17:05 IMPRESSION: 1. Removal of the cephalad most of the 3 prior fixation screws spanning the left sacroiliac joint. See procedure note for further detail. Labs Labs: Laboratory Results - last 24 hr 03/16/25 04:28 Creatinine 0.70 Estim Creat Clear Calc 85 Estimated GFR > 60
[2025-03-17] VITALS (7 sets, daily range): BP systolic 100–131; BP diastolic 67–80; PULSE 70–74; RESP 16–20; TEMP 36.5–36.9; O2SAT 97–99
[2025-03-17] MEDS: MORPHINE SULFATE (*CRX) 15 MG TAB IR PO ×4 (03:47→21:05)
[2025-03-17 05:11] LABS: Estimated CRCL calculation 77 ml/min; Estimated Glomerular Filt Rate > 60
[2025-03-17] MEDS: VANCOMYCIN 1,250 MG/NS 250 ML 1,250 MG/250 ML BAG 166.67 MG IVPB ×2 (06:00→17:02)
--- NOTE | 2025-03-17 06:27 | PCDIET ---
Pt called RN into room this morning to address concerns about their care. PT proceeded to tell RN that the burning sensation at her incision site has not improved and what was being done to address the issue. PT also claimed that the nausea was not getting better despite not requesting any medication to help manage the symptoms and eating ice cream during the shift. No accounts of emesis have been observed or reported to RN or tech this shift. PT had questions about the antibiotic she was receiving and should it be changed? PT also asked if infectious disease should be brought into her care. PT expressed concerns that she was not actively being kept in the loop about her condition. RN provided education about the individual nature of recovery and can very depending on the person and situation. RN also expressed that any possible changes in medication and or care should be discussed with the provider. Patient advocate number will be provided to the pt in case of any other concerns or complaints.
[2025-03-17] MEDS: KCL 20 MEQ/D5/0.45% SOD CHL 1,000 ML 100 ML IV CONT (07:46)
[2025-03-17] MEDS: LORATADINE 10 MG TABLET PO (09:08)
[2025-03-17] MEDS: PANTOPRAZOLE 40 MG TABLET PO ×2 (09:08→16:56)
[2025-03-17] MEDS: SUCRALFATE 1 GM TABLET PO ×2 (09:09→16:56)
[2025-03-17] MEDS: MONTELUKAST SODIUM 10 MG TABLET PO (09:09)
[2025-03-17] MEDS: LEFLUNOMIDE 10 MG TABLET PO (09:09)
[2025-03-17] MEDS: PRAMIPEXOLE 1 MG TABLET PO ×2 (09:09→16:56)
[2025-03-17] MEDS: METOPROLOL TARTRATE 50 MG TAB PO ×2 (09:09→21:07)
[2025-03-17] MEDS: ROSUVASTATIN 20 MG TABLET 40 MG PO (09:09)
[2025-03-17] MEDS: DOCUSATE SODIUM 100 MG CAPSULE PO ×2 (09:09→21:08)
[2025-03-17] MEDS: ONDANSETRON HCL ODT 4 MG TABLET PO (09:12)
--- NOTE | 2025-03-17 16:54 | WPDNEUROSGPN ---
Progress Note: A&P Assessment and Plan (1) S/P fusion of sacroiliac joint: Code(s): Z98.1 - Arthrodesis status Status: Acute (2) Sacroiliitis: Code(s): M46.1 - Sacroiliitis, not elsewhere classified Status: Acute Plan Dionne is doing well. She states that she does best with Phenergan suppository so we will have her get those instead of Zofran. We will stop her IV fluids in preparation for her to be discharged tomorrow. I will probably send her home with a week of Bactrim DS b.i.d. for prophylaxis. We will also send her with the the morphine and a muscle relaxant. Subjective Date/time seen: 03/17/25 16:54 Interval history: Dionne is postop day 2 status post removal of a sacroiliac joint fusion device. She is doing well. She is making transfers and ambulating with physical therapy. She believes that she can do so independently. She complains of a burning discomfort in her buttock and of significant nausea with vomiting. She does not report any new lower extremity symptoms or any bowel or bladder problems. Exam Narrative: She is moving all extremities well. Her wound is clean, dry and intact. Objective Data Vital Signs Vital Signs: Vital Signs - 24 hr 03/16/25 20:30 03/16/25 20:53 03/16/25 20:55 Temperature 97.7 F Pulse Rate 70 72 Respiratory Rate 20 Blood Pressure 110/63 Pulse Oximetry 97 Oxygen Delivery Room Air 03/17/25 03:31 03/17/25 07:50 03/17/25 09:09 Temperature 97.7 F Pulse Rate 70 70 Respiratory Rate 20 20 Blood Pressure 114/69 Pulse Oximetry 97 97 Oxygen Delivery Room Air 03/17/25 13:53 Temperature Pulse Rate Respiratory Rate Blood Pressure Pulse Oximetry Oxygen Delivery Room Air Intake/Output Intake/Output: Intake & Output 03/14/25 03/15/25 03/16/25 03/17/25 23:59 23:59 23:59 23:59 Intake Total 522 832 7668.0 2007.3 Output Total 1600 Balance 344 143 1576.0 2007.3 Meds/Results Medications: Active Medications Generic Name Dose Route Start Last Admin Trade Name Freq PRN Reason Stop Dose Admin Al Hydrox/Mg Hydrox/Simethicone 20 ml 03/15/25 16:14 Mag Hydrox/Al Hydrox/Simeth 30 Ml Udc PO Q4H PRN Indigestion/Heartburn Albuterol 1 puff 03/15/25 16:14 Albuterol Sulfate (*Sp) Aerosol 1 Puff INHALATION Q4H PRN Shortness Of Breath Or Wheezing Baclofen 5 mg 03/16/25 10:40 Baclofen 5 Mg Tablet PO TID PRN Muscle Spasm Bisacodyl 10 mg 03/15/25 16:14 Bisacodyl 10 Mg Suppository RECTAL DAILY PRN Constipation Diazepam 5 mg 03/16/25 10:40 Diazepam (*Crx) 5 Mg Tablet PO TID PRN Muscle Spasm Docusate Sodium 100 mg 03/15/25 21:00 03/17/25 09:09 Docusate Sodium 100 Mg Capsule PO 100 mg Q12HR WATSON Administration Duloxetine HCl 60 mg 03/15/25 21:00 03/16/25 21:03 Duloxetine Hcl 60 Mg Capsule.Dr PO Not Given HS WATSON Hydroxyzine HCl 25 mg 03/15/25 22:00 03/17/25 13:19 Hydroxyzine Hcl 25 Mg Tablet PO 25 mg Q8HR WATSON Administration Potassium Chloride/Dextrose/Sod Cl 1,000 mls @ 100 mls/hr 03/15/25 16:14 03/17/25 10:56 Kcl 20 Meq/D5/0.45% Sod Chl IV CONT 100 mls/hr .Q10H WATSON Infusion Vancomycin HCl 1,250 mg in 250 mls @ 166.667 mls/hr 03/15/25 18:00 03/17/25 07:30 Vancomycin 1,250 Mg/Ns 250 Ml IVPB Infused Q12H WATSON Infusion Leflunomide 10 mg 03/16/25 09:00 03/17/25 09:09 Leflunomide 10 Mg Tablet PO 10 mg DAILY WATSON Administration Lidocaine 1 patch 03/16/25 09:00 03/17/25 09:10 Lidocaine 5% Patch TOPICAL Not Given DAILY WATSON Loratadine 10 mg 03/16/25 09:00 03/17/25 09:08 Loratadine 10 Mg Tablet PO 10 mg QAM WATSON Administration Metoprolol Tartrate 50 mg 03/15/25 21:00 03/17/25 09:09 Metoprolol Tartrate 50 Mg Tab PO 50 mg Q12HR WATSON Administration Montelukast Sodium 10 mg 03/16/25 09:00 03/17/25 09:09 Montelukast Sodium 10 Mg Tablet PO 10 mg DAILY WATSON Administration Morphine Sulfate 15 mg 03/15/25 16:14 03/17/25 09:11 Morphine Sulfate (*Crx) 15 Mg Tab Ir PO 15 mg Q4H PRN Administration Pain 7-10 Morphine Sulfate 4 mg 03/15/25 16:14 03/16/25 20:57 Morphine Sulfate (*Crx) 4 Mg/Ml Inj IV PUSH 4 mg Q2H PRN Administration Pain Rated 7-10 Nitroglycerin 0.4 mg 03/15/25 16:14 Nitroglycerin Sl 0.4 Mg Tablet SUBLINGUAL Q5MIN PRN Chest Pain Ondansetron HCl 4 mg 03/15/25 16:14 03/17/25 09:12 Ondansetron Hcl Odt 4 Mg Tablet PO 4 mg Q8H PRN Administration Nausea And Vomiting Pantoprazole Sodium 40 mg 03/15/25 17:00 03/17/25 09:08 Pantoprazole 40 Mg Tablet PO 40 mg BID WATSON Administration Pramipexole Dihydrochloride 1 mg 03/15/25 17:00 03/17/25 09:09 Pramipexole 1 Mg Tablet PO 1 mg BID WATSON Administration Promethazine HCl 25 mg 03/16/25 12:07 03/16/25 14:20 Promethazine Hcl 25 Mg Supp.Rect RECTAL 25 mg Q6H PRN Administration Nausea And Vomiting Ropinirole HCl 1 mg 03/15/25 17:00 03/17/25 13:19 Ropinirole Hcl 1 Mg Tablet PO 1 mg TID WATSON Administration Rosuvastatin Calcium 40 mg 03/16/25 09:00 03/17/25 09:09 Rosuvastatin 20 Mg Tablet PO 40 mg DAILY WATSON Administration Senna/Docusate Sodium 1 tab 03/15/25 16:14 Senna/Docusate Sodium Tablet PO HS PRN Constipation Sucralfate 1 gm 03/15/25 17:00 03/17/25 09:09 Sucralfate 1 Gm Tablet PO 1 gm BID WATSON Administration Radiology Results: ITS Impressions Fluoroscopy 03/15/25 17:05 IMPRESSION: 1. Removal of the cephalad most of the 3 prior fixation screws spanning the left sacroiliac joint. See procedure note for further detail. Labs Labs: Laboratory Results - last 24 hr 03/17/25 04:29 Creatinine 0.77 Estim Creat Clear Calc 77 Estimated GFR > 60 Vancomycin Trough 11.5
[2025-03-17] MEDS: PROMETHAZINE HCL 25 MG SUPP.RECT RECTAL (16:56)
[2025-03-17] MEDS: diazePAM (*CRX) 5 MG TABLET PO (16:56)
[2025-03-17] MEDS: DULoxetine HCL 60 MG CAPSULE.DR PO (21:07)
[2025-03-18 04:34] LABS: Estimated CRCL calculation 81 ml/min; Estimated Glomerular Filt Rate > 60
[2025-03-18] MEDS: VANCOMYCIN 1,250 MG/NS 250 ML 1,250 MG/250 ML BAG 166.67 MG IVPB (05:14)
[2025-03-18 05:23] VITALS: BP 95/61; PULSE 70; RESP 16; TEMP 36.8; O2SAT 97
[2025-03-18 08:30] VITALS: BP 94/54; PULSE 70
[2025-03-18] MEDS: LORATADINE 10 MG TABLET PO (08:32)
[2025-03-18] MEDS: LEFLUNOMIDE 10 MG TABLET PO (08:32)
[2025-03-18] MEDS: DOCUSATE SODIUM 100 MG CAPSULE PO (08:32)
[2025-03-18] MEDS: MONTELUKAST SODIUM 10 MG TABLET PO (08:33)
[2025-03-18] MEDS: ROSUVASTATIN 20 MG TABLET 40 MG PO (08:33)
[2025-03-18] MEDS: PANTOPRAZOLE 40 MG TABLET PO (08:33)
[2025-03-18] MEDS: SUCRALFATE 1 GM TABLET PO (08:33)
[2025-03-18] MEDS: PRAMIPEXOLE 1 MG TABLET PO (08:33)
--- NOTE | 2025-04-05 18:53 | P.DS_ITS ---
DS: Admitting Diagnosis Discharge Date 03/18/25 Admitting Diagnosis status post SI joint fusion with out of position device DS: Summary Hospital Course Reason for hospitalization: Dionne is a 59-year-old female who underwent a left sacroiliac joint fusion from a lateral approach with 3 devices placed across the ilium into the sacrum across the SI joint on 03/07/2025. This procedure was performed without complication the patient left the hospital ambulating and in good condition. She initially improved but then developed recurrent pain in the left buttock extending into the lower extremity. She describes an incident with a caregiver that may have heralded the onset of the symptoms. She also has noticed some drainage from her wound and a white eschar at its superior end. She has remained neurologically intact but has had difficulty ambulating because of these issues. It is painful for her to use the left leg and she feels pain going down the. She is not having specific muscle group weakness or dermatomal numbness and is not having any bowel or bladder issues. Hospital Course: The patient was taken to the operating room on 03 15 25 with the aforementioned revision of left sacroiliac joint instrumentation was performed without complication. The patient went to the floor postoperatively. Pain control and reanimation were issues postoperatively. there were also issues with nausea and changes were made to her medications. Physical and occupational therapy were involved in her care. At the time of her discharge she was eating, ambulating, emptying her bladder and her pain was under control with by mouth pain medicine. Her wounds remained clean, dry and intact. She was afebrile with stable vital signs. She was therefore allowed to be discharged home. Time Spent with Patient Time attestation: Total time spent providing and/or coordinating discharge services: Discharge Plan Discharge Attending physician on discharge: Taran Ramirez Consulting providers: Henri Up; Radhames Marshall; Lori Dwyer; Sj Landaverde; [place] Discharging Clinician: Taran Ramirez Anticipated Discharge Date/Time: 03/18/25 09:18 Patient Disposition: Home Activity: may shower Diet: as tolerated Wound Care Instructions: follow printed instructions Discharge Instructions: Per Care Coordination: Patient to have [facility] for RN/PT/OT services at discharge. Office will call patient to set up initial appointment. Office ph#[phone]. Patient Instructions: Antibiotic Form Patient Language: Divehi Stand Alone Forms: General Discharge Information Follow-up/Referrals: Taran Ramirez MD [Physician, Neurosurgery] Discharge Medications: New morphine 15 mg tablet 15 mg PO Q4H PRN (Reason: pain) Qty: 30 0RF Continued mupirocin 2 % ointment 1 applic topical BID Patient Comments: TAKES PRN promethazine [Promethegan] 25 mg suppository 25 mg RECTAL Q6H PRN (Reason: nausea and vomiting) Qty: 12 1RF metoprolol tartrate 50 mg tablet 50 mg PO BID nystatin 100,000 unit/gram ointment 1 applic topical BID Qty: 30 1RF Patient Comments: TAKES PRN Simponi 50 mg/0.5 mL pen injector 50 mg SUBCUT MONTHLY Patient Comments: TAKES ON THE 1ST DAY OF THE MONTH Rx Instructions: pt will not restart till 2 weeks post procedure triamcinolone acetonide 0.1 % cream 1 applic topical BID Qty: 80 0RF Patient Comments: TAKES PRN pramipexole 1 mg tablet 1 mg PO BID Qty: 180 1RF Patient Comments: TAKES FOR RLS leflunomide 20 mg tablet 10 mg PO DAILY pantoprazole 40 mg tablet,delayed release (DR/EC) 40 mg PO BID Qty: 1 0RF hydroxyzine HCl 25 mg tablet 25 mg PO Q8H Qty: 180 3RF baclofen 5 mg tablet 5 mg PO TID PRN (Reason: muscle spasm) Patient Comments: TAKES PRN albuterol sulfate [ProAir HFA] 90 mcg/actuation HFA aerosol inhaler 1 inh inhalation Q4H PRN (Reason: shortness of breath or wheezing) Qty: 6.7 3RF epinephrine [EpiPen 2-Ranulfo] 0.3 mg/0.3 mL auto-injector 0.3 mg IM ONCE PRN (Reason: Allergic Reaction) Qty: 2 0RF Rx Instructions: as a single dose; may repeat once duloxetine [Cymbalta] 60 mg capsule,delayed release(DR/EC) 60 mg PO HS Qty: 90 1RF lidocaine 5 % adhesive patch,medicated 1 patch topical DAILY Qty: 15 0RF Patient Comments: TAKES PRN Rx Instructions: leave on most painful area for up to 12 hrs ondansetron 4 mg tablet,disintegrating 4 mg PO Q8H PRN (Reason: nausea and vomiting) Qty: 20 0RF montelukast [Singulair] 10 mg tablet 10 mg PO DAILY Qty: 90 2RF Patient Comments: QAM rosuvastatin 40 mg tablet 40 mg PO DAILY Qty: 90 2RF fexofenadine [Vicky Allergy] 180 mg tablet 180 mg PO DAILY ropinirole 1 mg tablet 1 mg PO TID Qty: 270 1RF sucralfate [Carafate] 1 gram tablet 1 g PO BID Qty: 60 1RF Patient Comments: TAKES PRN nitroglycerin [Nitrostat] 0.4 mg tablet, sublingual 0.4 mg sublingual Q5MIN PRN (Reason: Chest Pain) Qty: 25 0RF triamcinolone acetonide 0.5 % cream 1 applic topical DAILY Qty: 22 0RF Held aspirin 81 mg tablet,delayed release (DR/EC) 81 mg PO DAILY Hold Instructions: Resume on 03/25/25. diclofenac sodium 1 % gel See Rx Instructions .ROUTE .COMPLEX Qty: 500 1RF Hold Instructions: Resume on 04/29/25. Dose Instruction: APPLY 4 GRAMS TO SINGLE ELBOW, WRIST, OR HAND (INCLUDES PALM/FINGER/BACK OF HAND) 4 TIMES DAILY NEEDED FOR PAIN Rx Instructions: APPLY 4 GRAMS TO SINGLE ELBOW, WRIST, OR HAND (INCLUDES PALM/FINGER/BACK OF HAND) 4 TIMES DAILY NEEDED FOR PAIN celecoxib 200 mg capsule 200 mg PO DAILY Qty: 30 3RF Hold Instructions: Resume on 04/29/25. Rx Instructions: start after stopping Plavix. Discontinued tramadol 50 mg Tablet 100 mg PO Q4H PRN (Reason: Pain Rated 7-10) 7 Days Qty: 42 0RF No Action morphine 15 mg tablet 15 mg PO Q4H PRN (Reason: pain) Qty: 42 0RF diazepam [Valium] 5 mg tablet 5 mg PO TID PRN (Reason: muscle spasm) Qty: 30 0RF lidocaine 5 % adhesive patch,medicated 1 patch topical DAILY Qty: 15 0RF Rx Instructions: leave on most painful area for up to 12 hrs baclofen 5 mg tablet 5 mg PO TID Qty: 14 0RF ondansetron 4 mg tablet,disintegrating 4 mg PO Q6H PRN (Reason: nausea and vomiting) Qty: 10 0RF sulfamethoxazole-trimethoprim [Bactrim DS] 800-160 mg tablet 1 tablet PO Q12H 10 Days Qty: 20 0RF Date of admission: 03/15/25 10:16 Primary Care Provider: Tom Paz Admitting Provider: Taran Ramirez Attending physician on admission: Taran Ramirez Condition: Stable
== END 2025-03-18 10:40 | disposition home or self-care (01) | DRG 516 ==
LOC: ANHED 16:16 → ANH2MED 16:19
PROVIDERS: Admitting Provider Neurological Surgery; Emergency Provider Physician Assistant; PCP Family Medicine; Visit Provider Neurological Surgery
PROC: 0SP804Z Removal of Internal Fixation Device from Left Sacroiliac Joint, Open Approach (ICD-10-PCS; CPT 27280; principal; 2025-03-15 15:30)
DX: T84.296A Other mechanical complication of internal fixation device of vertebrae, initial encounter (principal); E87.1 Hypo-osmolality and hyponatremia; M46.1 Sacroiliitis, not elsewhere classified; I48.0 Paroxysmal atrial fibrillation; K21.9 Gastro-esophageal reflux disease without esophagitis; E78.2 Mixed hyperlipidemia; E75.6 Lipid storage disorder, unspecified; E16.2 Hypoglycemia, unspecified; M06.09 Rheumatoid arthritis without rheumatoid factor, multiple sites; M26.609 Unspecified temporomandibular joint disorder, unspecified side; G47.10 Hypersomnia, unspecified; Z98.1 Arthrodesis status; Z86.718 Personal history of other venous thrombosis and embolism; Z95.0 Presence of cardiac pacemaker; Z96.82 Presence of neurostimulator; Z95.818 Presence of other cardiac implants and grafts; Z95.828 Presence of other vascular implants and grafts; Z79.82 Long term (current) use of aspirin; Z87.01 Personal history of pneumonia (recurrent); Z87.19 Personal history of other diseases of the digestive system; Z86.19 Personal history of other infectious and parasitic diseases; Z87.898 Personal history of other specified conditions; Z87.39 Personal history of other diseases of the musculoskeletal system and connective tissue
CPT/HCPCS: 36415; 72192; 80202; 82565; 96374; 96375; 97161; 97166; 99199; 99285; A9270; G0378; J1100; J2003; J2004; J2250; J2270; J2371; J2405; J2704; J3010; J3373; J3480; J7120

== ENCOUNTER 2025-03-31 11:23 | Emergency (ER) | payer MEDICARE, MEDICAID, SELFPAY ==
--- OUTSIDE RECORDS SUMMARY | 2010-02-26 04:30 | XMS_ITS | Continuity of Care Document ---
Author Organization [facility] Address [address] [place] [address] [address] [place] [address] Phone Care Team Providers Care Production Planning Manager Name Role Phone Anthony Gutierrez Unavailable Unavailable Procedures Procedure Date Office/outpatient Visit, Est Office/outpatient Visit, Est Office/outpatient Visit, Est No Charge Glasses Check Special Reports Or Forms Eye Exam & Treatment Refraction Eye Exam & Treatment Refraction Advance Directives Directive Yes / No Effective Date File Name No Information Encounters Encounter Description Practice Location Reason(s) For Visit Diagnoses Date Provider Providers Copied on Encounter Office/outpat ient Visit, [facility], [address] [place] [address] [address], [place], [place], [id number], [place] tel:[phone] [facility] No Information 0 0 Krishnasamy Anthony. [address] [facility] 102, [place], [address], [place]. tel:[phone] Office/outpat ient Visit, [facility], [address] [place] [address] [address], [place], [place], [id number], [place] tel:[phone] [facility] [place] No Information 0 0 Krishnasamy Anthony. [facility] [facility] [place] [address], [place], [place], [facility], [place]. tel:[phone] Office/outpat ient Visit, Est [facility] Eye [facility], [address] [place] [address] [address], [place], [place], [id number], [place] tel:[phone] [facility] No Information Fe-2 3-201 0 Krishnasamy Anthony. [address] [facility] [place] [address], [place], [place], [facility], [place]. tel:[phone] [facility] Eye [facility], [id number] [place] [address] [address], [place], [place], [id number], [place] tel:[phone] SEC [facility] No Information Jan-3 1-200 9 Krishnasamy Anthony. [facility], [place], [place], [facility], [place]. tel:[phone] [facility], [address] [place] [address] [address], [place], [place], [id number], [place] tel:[phone] [facility] No Information You-2 2-200 9 Krishnasamy Anthony. [address] [place], [place] [address]ate [place] [address], [place], [place], [facility], [place]. tel:[phone] [facility], [address] [place] [address] [address], [place], [place], [address], [place] tel:[phone] [facility] [place] No Information May-0 8-200 9 Krishnasamy Anthony. [facility] [place] [address], [place], [facility], [place]. tel:[phone] [facility], [address] [place] [address], [place], [place], [address], [place] tel:[phone] [facility] No Information Apr-2 8-200 7 Montes OD Simone. [address] [place] [address], [place], [place], [facility], [place]. tel:[phone] Family History Family Member Type Diagnosis Age At Onset No Information Payers Payer name Insurance type Covered democrat ID Authoriza tion(s) Medicare [facility] [id number] Medicaid [facility] [id number] Social History Type Description Quantity Date Captured Comments Sex Female Smoking Status No Information Chief Complaint And Reason For Visit No Information Reason For Referral Reason For Referral No Information History Of Present Illness Encounter Date Complaint History Of Prese nt Illness No Information Functional Status Date Functional Assessmen t No Information Instructions Date Instruction Additional Infor mation No Information Assessments Type Assessment Date No Information Patient Care Teams Name Effective Dates (start - stop) Status Members No Information
--- OUTSIDE RECORDS SUMMARY | 2024-08-23 09:45 | XMS_ITS | Continuity of Care Document ---
Author Organization [facility] Address [address] [facility] [address] [place] [address] Phone Care Team Providers Care Computational Biologist Name Role Phone Nayely OD OD, Denise [...] OFFICE/OUTPA TIENT VISIT, EST [facility], [address] [facility] [address], [place], [place], [id number], [place] tel:[phone] OPH CONSULT [facility] flash of light OS (chief complaint) Age-related nuclear cataract, bilateralTear film insufficiency of bilateral lacrimal glandsOther vitreous opacities, bilateral Aug-0 5 Derheimer OD Denise. [address] [facility], [address], [place], [place], [address], [place]. tel:[phone] Referring Provider: Tom Sapp, [address], [place], [address]. tel:[phone] OFFICE/OUTPA TIENT VISIT, EST [facility], [address] [place] [address], [id number], [place] tel:[phone] [facility] CON[facility] Pain OS (chief complaint) Left eye painAge-relat ed nuclear cataract, bilateralOthe r vitreous opacities, bilateralTear film insufficiency of bilateral lacrimal glands Apr-0 4-202 4 Krishnasamy Anthony. [address], [address], [place], [place], [address], [place]. tel:[phone] Referring Provider: Tom Sapp, [address], [place], [address]. tel:[phone] OFFICE/OUTPA TIENT VISIT, EST [facility], [address] [place] [address], [id number], [place] tel:[phone] OPH CONSULT [facility] blurry vision (chief complaint) Age-related nuclear cataract, bilateralTear film insufficiency of bilateral lacrimal glandsOther vitreous opacities, bilateralDipl opiaHypermetr opia, bilateral Oct-2 4-202 3 Krishnasamy Anthony. [address], [address], [place], [place], [address], [place]. tel:[phone] Referring Provider: Tom Sapp, [address], [place], [address]. tel:[phone] OFFICE/OUTPA TIENT VISIT, EST [facility], [address] [place] [address], [id number], [place] tel:[phone] OPH CONSULT [facility] blurry [place] (chief complaint) Tear film insufficiency of bilateral lacrimal glandsOther vitreous opacities, bilateralAge- related nuclear cataract, bilateralDipl opiaHypermetr opia, bilateral Mar-1 0-202 2 Krishnasamy Anthony. [address], [address], [place], [place], [address], [place]. tel:[phone] Referring Provider: Tom Sapp, [address], [place], [address]. tel:[phone] OFFICE/OUTPA TIENT VISIT, EST [facility], [address] [place] [address], [id number], [place] tel:[phone] OPH CONSULT [facility] shingles (chief complaint) Herpes zoster without complicationT ear film insufficiency of bilateral lacrimal glands Apr- 1 Krishnasamy Anthony. [address], [address], [place], [place], [address], [place]. tel:[phone] Referring Provider: Tom Sapp, [address], [place], [address]. tel:[phone] OFFICE/OUTPA TIENT VISIT, EST [facility], [address] [place] [address], [id number], [place] tel:[phone] OPH CONSULT [facility] blurry (chief complaint) DiplopiaAge-r elated nuclear cataract, bilateralTear film insufficiency of bilateral lacrimal glandsOther vitreous opacities, bilateralHype rmetropia, bilateral Nov- 9 Krishnasamy Anthony. [address], [address], [place], [place], [address], [place]. tel:[phone] Referring Provider: Anthony Gutierrez, [address], [place], [address]. tel:[phone] OFFICE/OUTPA TIENT VISIT, EST [facility], [address] [place] [address], [id number], [place] tel:[phone] OPH CONSULT [facility] blurry vision (chief complaint) Tear film insufficiency of bilateral lacrimal glandsOther vitreous opacities, bilateralDipl opiaHypermetr opia of both eyes Oct-3 0- 8 Krishnasamy Anthony. [address], [address], [place], [place], [address], [place]. tel:[phone] Referring Provider: Anthony Gutierrez, [address], [place], [address]. tel:[phone] OFFICE/OUTPA TIENT VISIT, EST [facility], [address] [place] [address], [id number], [place] tel:[phone] OPH CONSULT [facility] blurry vision (chief complaint) dry eyes (chief complaint) DiplopiaOther vitreous opacities, bilateralTear film insufficiency of bilateral lacrimal glandsHyperme tropia of both eyes Dec-2 7 7 Krishnasamy Anthony. [address], [address], [place], [place], [address], [place]. tel:[phone] Referring Provider: Anthony Gutierrez, [address], [address]. tel:[phone] OFFICE/OUTPA TIENT VISIT, EST [facility], [address] [place] [address], [id number], tel:[phone] [facility] blurry vision (chief complaint) Reflex sympathetic dystrophy, unspecifiedTe ar film insufficiency , unspecifiedHy permetropia of both eyesOther vitreous opacities, bilateralDipl opia Oct-0 5-201 6 Krishnasamy Anthony. [address], [address], [address], [place]. tel:[phone] Referring Provider: Anthony Gutierrez, [address], [address]. tel:[phone] OFFICE/OUTPA TIENT VISIT, NEW [facility], [address] [place] [address], [id number], [place] tel:[phone] [facility] blurry vision (chief complaint) Hypermetropia Tear film insufficiency , unspecifiedOt her vitreous opacitiesDipl opiaReflex sympathetic dystrophy, unspecified Sep-2 8-201 5 Krishnasamy Anthony. [address], [address], [address], [place]. tel:[phone] Referring Provider: Anthony Gutierrez, [address], [place], [address]. tel:[phone] OFFICE/OUTPA TIENT VISIT, EST [facility], [address] [place] [address], [place], [place], [id number], [place] tel:[phone] Oph Consult [facility] Office Tear film insufficiency , unspecifiedRe flex sympathetic dystrophy, unspecifiedOt her vitreous opacitiesHype rmetropiaDipl opia Feb- 4 Krishmargaret Anthony. [address], [address], [place], [place], [address], [place]. tel:[phone] Referring Provider: Anthony Gutierrez, [address], [place], [address]. tel:[phone] OFFICE/OUTPA TIENT VISIT, EST [facility], [address] [place] [address], [place], [place], [id number], tel:[phone] Oph Consult [facility] Office Other vitreous opacitiesTear film insufficiency , unspecifiedDi plopiaHyperme tropia Mar- 3 Krishnasnina Anthony. [address], [address], [place], [place], [address], [place]. tel:[phone] Referring Provider: Anthony Gutierrez, [address], [place], [address]. tel:[phone] OFFICE/OUTPA TIENT VISIT, EST [facility], [address] [place] [address], [id number], [place] tel:[phone] O[facility] Tear film insufficiency , unspecifiedRe flex sympathetic dystrophy, unspecifiedDi plopiaHyperme tropia Sep- 3 Krishnasnina Anthony. [address], [address], [place], [place], [id number], [place]. tel:[phone] Referring Provider: Anthony Gutierrez [address], [place], [address]. tel:[phone] OFFICE/OUTPA TIENT VISIT, EST [facility], [address], [id number], tel:[phone] OPH CONSULT [facility] Tear film insufficiency , unspecifiedDi plopia 2 Brenda Cruz. [address], [address], [address], . tel:[phone] Referring Provider: Anthony Gutierrez, [address], [place], [address]. tel:[phone] OFFICE/OUTPA TIENT VISIT, NEW [facility], [id number] [place] [address], [place], [place], [address], tel:[phone] OPH CONSULT [facility] DiplopiaHeada cheHypermetro tierra 1 Brenda Cruz. [address], [address], [place], [place], [address], . tel:[phone] Family History Family Member Type Diagnosis Age At Onset Son Problem (finding) Lazy eye Payers Payer name Insurance type Covered constitution party ID Authorjosea tirin(s) [place] [id number] [place] [id number] Social History Type Description Quantity Date Captured [...] D&N. Pt saw Dr Nai Sotelo at [facility] for prism. Pt did not update Rx, [...] elated nuclear cataract, bilateral Impression/Plan Related to Herpe s zoster without complication Impression/Plan Related to Tear film insufficiency of bilateral lacrimal glands Impression/Plan Related to Hyper metropia, bilateral Impression/Plan [...] +1.75+0.75x 080. Patient will see Smita Richardson (software engineering supervisor) @ [facility] for prisms/glasses. Related to Headaches Reflex sympathetic [...] +1.75+0.75x 082. Patient will see Smita Richardson (software engineering supervisor) @ [facility] 12/24/2010 for motility exam and measurements for [...]
[2025-03-31 11:29] VITALS: BP 141/88; PULSE 80; RESP 20; TEMP 36.5; O2SAT 100
[2025-03-31 11:54] VITALS: BP 150/70; PULSE 70; RESP 18; O2SAT 98
[2025-03-31] MEDS: MORPHINE SULFATE (*CRX) 4 MG/ML INJ IV PUSH (13:07)
[2025-03-31] MEDS: SODIUM CHLORIDE 0.9% IV 1,000 ML 999 ML IV CONT (13:08)
--- OUTSIDE RECORDS SUMMARY | 2025-03-31 13:17 | XMS_ITS | Clinical Summary ---
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 Office Visit [facility] - [address], [address] [place] [id number] Gopi Luna MD [address] [place] [address] Health Maintenance Due Date Last Done Comments [...] 2014 Zoster Vaccines (1 of 2) 2014 RSV Immunization or 60+ Years (1 - Risk 60-74 years 1-dose series) 2024 COVID-19 Vaccine (1 - 2023-2 5 season) 2025 DTaP, Tdap and Td Vaccines ( 2 [...] this topic Medical Devices Implanted Type Area Administrative Coordinator Device Identifier Shelf Expiration Date Model / Serial / Lot Ivc Filter Filter Pacemaker Pacemaker [employer] Spinal Cord Stimulator Implant Stimulator Implant Insurance MEDICARE MEDICAID Care Teams Food Cooking Machine Operator Relationship Specialty Start Date End Date Tom Paz MD [address] [address] PCP - General 09/29/22 Hugo Ordoñ[place]., [place] [id number] [id number] CARDIOVASCULAR DISEASE 07/15/23
--- OUTSIDE RECORDS SUMMARY | 2025-03-31 13:17 | XMS_ITS | Clinical Summary ---
Author Organization [employer] [facility] Address [address] [place] [address] Care Team Providers Care Out Patient Therapist Name Role Phone Tom Paz MD Primary Care Provider [phone] Allergies Active Allergy Reactions Criticality Noted Date [...] blisters Etanercept Swelling Low 12/09/2023 Embrel Gum Guuecg-Xpvnlr-Vnkj-Alcoho l Rash Low 12/09/2023 Mastisol - blisters [...] Date Diagnosed Date Macrocytosis without anemia 01/28/2022 Family History Medical History Relation Name Comments [...] this topic Medical Devices Implanted Type Area Supervisor Ticket Sales Device Identifier Shelf Expiration Date Model / Serial / Lot Tyrx Antibacterial Envelope Med [id number] - [id number] Implanted:Qty: 1 on 12/24/2023 at [facility] Mesh Left: Chest MEDTRON[employer]- CARD RHYTHM MGMT 10/01/2024 [id number] / / [id number] Neuro Stimulator Neuro Stimulator [employer] SC-1200 / / Description:leads: SC- Need lead numbers Dc Ppm Gen Implanted:Qty: 1 on 12/24/2023 by Burton Forbes MD at [facility] N/A: Chest Wall [id number] / [id number] / Explanted Type Area Supervisor Ticket Sales Device Identifier Shelf Expiration Date Model / Serial / Lot Dc Eluna 8 Ppm Gen Explanted:Qty: 1 on 12/24/2023 by Burton Forbes MD at [facility] Pacemaker Chest Wall [employer] ELUNA 8 KRISTY / [id number] / Description:Implant date: Per [employer] Rep - NOT MRI safe (extra cap lead -ABANDONED LEAD - NO MRI -lizandro 08/14/23 Insurance MEDICARE PART A AND B FORMERLY [facility] [address] [place] [address] MEDICARE PART A AND B UN[address] [place] [address] RX [employer] RX Member Subscriber Plan / Payer (Ef fective 2023-Present) Name:Naye Hart Relation to Subscriber:Self Name:Naye Hart Subscriber ID:Not on file Payer ID:Not on file Group ID:[id number] Type:RX Commercial Address: [address] Advance Directives For more information, please contact: [phone] Documents on File Type Date Recorded Patient Production Maintenance Technician Expl anation Advance Directive POA 12/24/2023 8:33 AM Ad valenzuela Directive POA * Full Code (Latest Code Status on File) Date Activated Date Inactivated Comments 12/24/2023 3:32 PM 12/25/2023 12:17 PM Care Teams Out Patient Therapist Relationship Specialty Start Date End Date Tom Paz MD [address] [place] [address] PCP - General Family Practice 01/28/22
[2025-03-31 13:26] LABS: Hematocrit 34.5 % (37.0-47.0); Hemoglobin 11.7 g/dL (12.0-15.0); Immature Granulocyte Percent A 0.4 % (0-0.5); Lymphocytes Absolute Auto 1.77 K/mm3 (0.9-3.2); Mean Corpuscular HGB Conc 33.9 g/dl (32-36); Mean Corpuscular Hemoglobin 34.2 pg (26-34); Mean Corpuscular Volume 100.9 fl (80-100); Nucleated Red Blood Cells Absolute Auto 0.000 K/mm3 (0.0-0.012); Nucleated Red Blood Cells Perc 0.0 % (0.0-0.2); Platelet Count Result 172 k/mm3 (150-375); Red Blood Count 3.42 M/mm3 (4.2-5.4); White Blood Count 5.1 K/mm3 (4.5-10.0)
[2025-03-31 13:42] VITALS: BP 133/85; PULSE 70; RESP 15; O2SAT 100
--- NOTE | 2025-03-31 13:42 | ED.GENADULT ---
HPI - General Adult General Chief complaint: Recheck/Abnormal Lab/Rx Stated complaint: sent by sur/22 had another 03/17 not better Time Seen by Provider: 03/31/25 12:04 History of Present Illness HPI narrative: Patient is a 59-year-old female who presents ER with pain in the left hip area. She underwent SI fusion but then had loose hardware and had to have it removed. Last surgery was 03/17/2025. No drainage from her surgical wound. No eschar. No fevers or chills or sweats. She maintains range of motion of the hip. Initially was not on any pain medication but then reports she was placed on morphine by her surgeon due to her history of multiple medication allergies. She reports the pain is not improving and she contacted her neurosurgeon's office recommended she come here for further evaluation. No saddle anesthesia. No difficulty with urination or defecation. Related Data Home Medications ?Medication ?Instructions ?Recorded ?Confirmed ?Last Taken ?Type golimumab 50 mg/0.5 mL 50 mg subcut MONTHLY 03/26/23 03/14/25 02/17/25 History subcutaneous pen injector (Simponi) aspirin 81 mg tablet,delayed 81 mg PO DAILY 07/01/23 03/14/25 02/28/25 History release Held on 03/18/25. Instructions: Resume on 03/25/25. mupirocin 2 % topical ointment 1 applic topical BID 07/01/23 03/14/25 Unknown History metoprolol tartrate 50 mg tablet 50 mg PO BID 10/22/23 03/14/25 03/07/25 History fexofenadine 180 mg tablet 180 mg PO DAILY 10/14/24 03/14/25 03/06/25 History (Vicky Allergy) leflunomide 20 mg tablet 10 mg PO DAILY 11/10/24 03/14/25 03/06/25 History baclofen 5 mg tablet 5 mg PO TID PRN muscle spasm 03/14/25 03/14/25 Unknown History Allergies Allergy/AdvReac Type Severity Reaction Status Date / Time meclizine Allergy Severe Rash Verified 03/31/25 11:34 carbamazepine (From Tegretol) Allergy Intermediate Blister Verified 03/31/25 11:34 2-octyl cyanoacrylate Allergy Mild Itching Verified 03/31/25 11:34 Cephalosporins Allergy Mild RASH Verified 03/31/25 11:34 clarithromycin Allergy Mild RASH Verified 03/31/25 11:34 imipramine Allergy Mild RASH Verified 03/31/25 11:34 Penicillins Allergy Mild HIVES Verified 03/31/25 11:34 cefuroxime (From Ceftin) Allergy Hives Verified 03/31/25 11:34 etanercept (From Enbrel) Allergy Redness of Verified 03/31/25 11:34 Skin hydromorphone (From Dilaudid) Allergy Hives Verified 03/31/25 11:34 oxycodone (From Percocet) Allergy Hives Verified 03/31/25 11:34 prochlorperazine (From Allergy Swelling Verified 03/31/25 11:34 Compazine) of Lip/Tongue/Throat propoxyphene (From Darvon) Allergy Hives Verified 03/31/25 11:34 propranolol (From Inderal [place]) Allergy Rash Verified 03/31/25 11:34 alcohol (From Mastisol AdvReac Severe Blister Verified 03/31/25 11:34 Adhesive) chloroxylenol (From [place] 7) AdvReac Severe rash Verified 03/31/25 11:34 gum mastic (From Mastisol AdvReac Severe Blister Verified 03/31/25 11:34 Adhesive) methyl salicylate (From AdvReac Severe Blister Verified 03/31/25 11:34 Mastisol Adhesive) storax (From Mastisol AdvReac Severe Blister Verified 03/31/25 11:34 Adhesive) tizanidine AdvReac Intermediate Hallucinati Verified 03/31/25 11:34 ng codeine AdvReac Unknown Vomiting Verified 03/31/25 11:34 diphenhydramine (From AdvReac Vomiting Verified 03/31/25 11:34 Benadryl) hydrocodone (From Vicodin) AdvReac Vomiting Verified 03/31/25 11:34 PMFSH Past Medical History Medical History Knee pain Candidiasis Inflammation of pyloric mucosa Left shoulder pain Bilateral shoulder pain Stomach ulcer Leg edema, right Bilateral leg paresthesia Knee injury Pain of left femur Left thigh pain Coccygeal pain, acute COVID-19 COVID Loss of vision TMJ (temporomandibular joint disorder) Acquired deviated nasal septum Nosebleed Pacemaker Right shoulder pain Witnessed apneic spells Snoring Apnea Chronic GERD Presence of Amulet left atrial appendage closure device Pelvic pain Hematoma of left chest wall Topical med dermatitis Right hand pain Bilateral knee pain Lumbar pain Acute cervical myofascial strain Acute bacterial sinusitis Hypersomnolence Migraine Vomiting DVT (deep venous thrombosis) Flatulence Cervical pain Spasm of lumbar paraspinous muscle MCL sprain of left knee Abrasion of toe Lesion of skin of nose Pneumonia LLQ abdominal pain Knee pain Foreign body in ear BMI 29.0-29.9,adult Lumbar stenosis Foraminal stenosis of lumbar region Pancreatitis Diarrhea Family history of beta thalassemia Inappropriate sinus tachycardia Presence of IVC filter Fibromyalgia Rheumatoid arthritis Anxiety Depression Abnormality of heart beat Ear pain Wears glasses Lightheadedness Vertigo Presence of neurostimulator History of deep vein thrombosis Abdominal bloating Hypoglycemia Allergic reaction to allergy skin test Abdominal lump Anxiety about health Hyponatremia Allergic dermatitis Headache Degenerative joint disease of cervical and lumbar spine TIA (transient ischemic attack) Ataxia A-fib Confusion Atypical face pain D-dimer, elevated Left ear pain Rheumatoid arthritis, seronegative, multiple sites Foreign body of toe Groin pain Groin hematoma Restless leg syndrome Dizziness Lipid disorder Fracture of second toe, left, closed Atopic dermatitis Bradycardia Anemia, unspecified Essential (primary) hypertension Mixed hyperlipidemia Paroxysmal atrial fibrillation RSD (reflex sympathetic dystrophy) SVT (supraventricular tachycardia) Surgical History Surgical History Hx of atrioventricular node ablation History of surgery on left wrist H/O cardiac radiofrequency ablation S/P IVC filter S/P insertion of spinal cord stimulator History of tubal ligation History of endometrial ablation H/O hernia repair Status post surgical removal of both fallopian tubes History of arthroscopic knee surgery History of back surgery History of permanent cardiac pacemaker placement 2019 pacemaker replaced 2023,updated 11/2024 Family History Family History Grandparent Family history of blood dyscrasia Family history of Alzheimer's disease Family history of malignant neoplasm of cervix Mother Family history of Alzheimer's disease Thyroid activity decreased Father Family history of lung cancer Sibling Thyroid activity decreased Other Diabetes mellitus Family history of allergic disorder Family history of kidney disease Family history of malignant neoplasm of thyroid High cholesterol Social History Social History Social History: Caffeine-none Smoking packs per day: 0 Smoking cigarettes per day: 0.0 Years smoked: 0 Smoking pack-years: 0.00 Smoking status: Never smoker Second hand tobacco smoke exposure: No Alcohol intake: never Substance use: never Substance use type: does not use Do You Feel Safe in your Home?: Yes Lack of Transportation: No Lack of Food: Never True Current Housing: I Have Housing Concerned About Future Housing: No Difficulty Paying Gas/Electric Bills: No Difficulty Paying for Meds: No Currently Unemployed: No Education: High School Diploma/GED Difficulty w/ Childcare or Family Care: No Living arrangements: alone Occupation/Education: retired 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 HEAD: Normocephalic, atraumatic. ENT: Mucous membranes moist. CHEST: Clear to auscultation. No respiratory distress. HEART: Regular rate and rhythm. Normal peripheral pulses. Back: No reproducible midline tenderness of the L/S spine. EXTREMITIES: Normal range of motion. No edema. SKIN: Warm, dry, no rash. Well healing surgical site left hip. NEURO: Alert and oriented x3. PSYCH: Normal mood and affect. Course Course Emergency Course: Discussed neuro surgery. No recommendation for additional imaging. Inflammatory markers reassuring and infection is not felt to be likely. Patient will be given topical lidocaine patches for home as well as some baclofen. She may follow up outpatient. Vital Signs Vital signs: Vital Signs Temperature 97.7 F 03/31/25 11:29 Pulse Rate 80 03/31/25 11:29 Respiratory Rate 20 03/31/25 11:29 Blood Pressure 141/88 H 03/31/25 11:29 Pulse Oximetry 100 03/31/25 11:29 Oxygen Delivery Room Air 03/31/25 11:29 Temperature 97.7 F 03/31/25 11:29 Pulse Rate 70 03/31/25 13:42 Respiratory Rate 15 03/31/25 13:42 Blood Pressure 133/85 03/31/25 13:42 Pulse Oximetry 03/31/25 13:42 Oxygen Delivery Room Air 03/31/25 11:29 Medical Decision Making Vital Signs Vital Signs: Vital Signs Temperature 97.7 F 03/31/25 11:29 Pulse Rate 80 03/31/25 11:29 Respiratory Rate 20 03/31/25 11:29 Blood Pressure 141/88 H 03/31/25 11:29 Pulse Oximetry 100 03/31/25 11:29 Oxygen Delivery Room Air 03/31/25 11:29 Temperature 97.7 F 03/31/25 11:29 Pulse Rate 70 03/31/25 13:42 Respiratory Rate 15 03/31/25 13:42 Blood Pressure 133/85 03/31/25 13:42 Pulse Oximetry 03/31/25 13:42 Oxygen Delivery Room Air 03/31/25 11:29 Lab Data 03/31/25 13:13 03/31/25 13:13 Labs: Lab Results 03/31/25 Range/Units 13:13 WBC 5.1 (4.5-10.0) K/mm3 RBC 3.42 L (4.2-5.4) M/mm3 Hgb 11.7 L (12.0-15.0) g/dL Hct 34.5 L (37.0-47.0) % MCV 100.9 H (80-100) fl MCH 34.2 H (26-34) pg MCHC 33.9 (32-36) g/dl RDW 13.0 (11.5-14.5) % Plt Count 172 (150-375) k/mm3 MPV 8.9 (7.4-10.4) fl Immature Gran % (Auto) 0.4 (0-0.5) % Neut % (Auto) 56.0 (45.5-73.1) % Lymph % (Auto) 34.4 (18.3-44.2) % [place] % (Auto) 6.8 (2.6-8.5) % Eos % (Auto) 1.6 (0-4.4) % Baso % (Auto) 0.8 (0.2-1.2) % Lymph # (Auto) 1.77 (0.9-3.2) K/mm3 [place] # (Auto) 0.4 (0.1-0.6) K/mm3 Eos # (Auto) 0.1 (0-0.3) K/mm3 Baso # (Auto) 0.0 (0.0-0.1) K/mm3 Abs Immat Gran (auto) 0.02 (0.00-0.031) K/mm3 Absolute Neuts (auto) 2.9 (1.3-6.7) K/mm3 Absolute Nucleated RBC 0.000 (0.0-0.012) K/mm3 Nucleated RBC % 0.0 (0.0-0.2) % ESR Pending Sodium Pending Potassium Pending Chloride Pending Carbon Dioxide Pending Anion Gap Pending BUN Pending Creatinine Pending Estim Creat Clear Calc Pending Estimated GFR Pending Glucose Pending Lactic Acid 1.0 (0.7-2.0) mmol/L Calcium Pending Total Bilirubin Pending AST Pending ALT Pending Alkaline Phosphatase Pending C-Reactive Protein Pending Total Protein Pending Albumin Pending Discharge Plan Discharge Clinical Impression: Post-operative pain Patient Disposition: Home Condition: Stable Instructions: Pain Management After Surgery (DC) Additional Instructions: Please return to the emergency department if you develop severe pain that is not controlled by pain medications or if you are unable to walk because of pain or weakness. Return to the emergency department immediately if you develop fevers, loss of bowel or bladder control (dribbling of urine or having accidents you wouldn't normally have), inability to urinate, numbness of your genital or anal area, or weakness/numbness of your legs or arms as these could all be signs of a serious medical emergency. Patient Language: Setswana Prescriptions: New lidocaine 5 % adhesive patch,medicated 1 patch topical DAILY Qty: 15 0RF Rx Instructions: leave on most painful area for up to 12 hrs baclofen 5 mg tablet 5 mg PO TID Qty: 14 0RF No Action aspirin 81 mg tablet,delayed release (DR/EC) 81 mg PO DAILY mupirocin 2 % ointment 1 applic topical BID Patient Comments: TAKES PRN promethazine [Promethegan] 25 mg suppository 25 mg RECTAL Q6H PRN (Reason: nausea and vomiting) Qty: 12 1RF metoprolol tartrate 50 mg tablet 50 mg PO BID nystatin 100,000 unit/gram ointment 1 applic topical BID Qty: 30 1RF Patient Comments: TAKES PRN Simponi 50 mg/0.5 mL pen injector 50 mg SUBCUT MONTHLY Patient Comments: TAKES ON THE 1ST DAY OF THE MONTH Rx Instructions: pt will not restart till 2 weeks post procedure triamcinolone acetonide 0.1 % cream 1 applic topical BID Qty: 80 0RF Patient Comments: TAKES PRN pramipexole 1 mg tablet 1 mg PO BID Qty: 180 1RF Patient Comments: TAKES FOR RLS diclofenac sodium 1 % gel See Rx Instructions .ROUTE .COMPLEX Qty: 500 1RF Dose Instruction: APPLY 4 GRAMS TO SINGLE ELBOW, WRIST, OR HAND (INCLUDES PALM/FINGER/BACK OF HAND) 4 TIMES DAILY NEEDED FOR PAIN Rx Instructions: APPLY 4 GRAMS TO SINGLE ELBOW, WRIST, OR HAND (INCLUDES PALM/FINGER/BACK OF HAND) 4 TIMES DAILY NEEDED FOR PAIN leflunomide 20 mg tablet 10 mg PO DAILY pantoprazole 40 mg tablet,delayed release (DR/EC) 40 mg PO BID Qty: 1 0RF celecoxib 200 mg capsule 200 mg PO DAILY Qty: 30 3RF Rx Instructions: start after stopping Plavix. hydroxyzine HCl 25 mg tablet 25 mg PO Q8H Qty: 180 3RF morphine 15 mg tablet 15 mg PO Q4H PRN (Reason: pain) Qty: 30 0RF diazepam [Valium] 5 mg tablet 5 mg PO TID PRN (Reason: muscle spasm) Qty: 30 0RF baclofen 5 mg tablet 5 mg PO TID PRN (Reason: muscle spasm) Patient Comments: TAKES PRN morphine 15 mg tablet 15 mg PO Q4H PRN (Reason: pain) Qty: 30 0RF albuterol sulfate [ProAir HFA] 90 mcg/actuation HFA aerosol inhaler 1 inh inhalation Q4H PRN (Reason: shortness of breath or wheezing) Qty: 6.7 3RF epinephrine [EpiPen 2-Ranulfo] 0.3 mg/0.3 mL auto-injector 0.3 mg IM ONCE PRN (Reason: Allergic Reaction) Qty: 2 0RF Rx Instructions: as a single dose; may repeat once duloxetine [Cymbalta] 60 mg capsule,delayed release(DR/EC) 60 mg PO HS Qty: 90 1RF lidocaine 5 % adhesive patch,medicated 1 patch topical DAILY Qty: 15 0RF Patient Comments: TAKES PRN Rx Instructions: leave on most painful area for up to 12 hrs ondansetron 4 mg tablet,disintegrating 4 mg PO Q8H PRN (Reason: nausea and vomiting) Qty: 20 0RF montelukast [Singulair] 10 mg tablet 10 mg PO DAILY Qty: 90 2RF Patient Comments: QAM rosuvastatin 40 mg tablet 40 mg PO DAILY Qty: 90 2RF fexofenadine [Vicky Allergy] 180 mg tablet 180 mg PO DAILY ropinirole 1 mg tablet 1 mg PO TID Qty: 270 1RF sucralfate [Carafate] 1 gram tablet 1 g PO BID Qty: 60 1RF Patient Comments: TAKES PRN nitroglycerin [Nitrostat] 0.4 mg tablet, sublingual 0.4 mg sublingual Q5MIN PRN (Reason: Chest Pain) Qty: 25 0RF triamcinolone acetonide 0.5 % cream 1 applic topical DAILY Qty: 22 0RF sulfamethoxazole-trimethoprim [Bactrim DS] 800-160 mg tablet 1 tablet PO Q12H 10 Days Qty: 20 0RF Follow-up/Referrals: Taran Ramirez MD [Physician, Neurosurgery] - 1 Week Tom Paz MD [Primary Care Provider, Family Practice]
[2025-03-31 13:57] LABS: Alanine Aminotransferase 21 U/L (6-35); Albumin Level 4.3 g/dL (3.5-5.1); Alkaline Phosphatase 115 U/L (38-126); Anion Gap 8 mmol/L (4-12); Aspartate Amino Transferase 30 U/L (14-36); Bilirubin,Total 0.6 mg/dL (0.2-1.3); Blood Urea Nitrogen 23 mg/dL (7-17); CRP < 0.5 mg/dL (<1.0); Calcium 9.5 mg/dL (8.4-10.2); Carbon Dioxide 23 mmol/L (22-30); Chloride 108 mmol/L (98-107); Estimated CRCL calculation 71 ml/min; Estimated Glomerular Filt Rate > 60; Glucose 81 mg/dL (65-110); Potassium 3.6 mmol/L (3.4-5.0); Sodium 139 mmol/L (137-145); Total Protein 8.0 g/dL (6.3-8.2)
[2025-03-31 15:07] VITALS: BP 138/88; PULSE 76; RESP 17; O2SAT 100
== END 2025-03-31 15:24 | disposition home or self-care (01) ==
PROVIDERS: Emergency Provider Emergency Medicine; PCP Family Medicine
DX: G89.18 Other acute postprocedural pain (principal); M25.552 Pain in left hip; M06.9 Rheumatoid arthritis, unspecified; I48.0 Paroxysmal atrial fibrillation; Z86.73 Personal history of transient ischemic attack (TIA), and cerebral infarction without residual deficits
CPT/HCPCS: 36415; 80053; 83605; 85025; 85652; 86140; 96361; 96374; 99284; J2270; J7030

== ENCOUNTER 2025-06-10 04:45 | Emergency (ER) | payer MEDICARE, BC, SELFPAY ==
--- OUTSIDE RECORDS SUMMARY | 2025-06-10 04:49 | XMS_ITS | Encounter Summary ---
Author Organization [facility] Healthcare Address [address] [place] [address] Care Team Providers Care Auto Seat Cover Installer Name Role Phone Tom Paz MD Primary Care Provider [phone] Tab Taylor MD Unavailable [phone] Favian Caceres MD Unavailable [phone] Encounter Details Date Type Department Care Team (Late st Contact Info) Description 02/11/2024 Documentation [facility] [address] [place], [place] [id number] Gaviota Benz, RN Social History Tobacco Use Types Packs/Day Years Used Date Smoking Tobacco: Never Passive Smoke Exposure: Past Smokeless Tobacco: Never Alcohol Use Standard Drinks/Week Comments No 0 (1 standard drink = 0.6 oz pur e alcohol) [facility] Utilities Answer Date Recorded In the past 12 months has [employer], gas, oil, or water company threatened [...] often do you attend chur ch or scientologist services? 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 [address] [id number] - [place], [place] - [address] [facility] [address] [facility] - [place], [place] - [address] [facility] [address] [facility] [address] [place], [place] - [address] [facility] [address] [place] [address] Primary Care Provider: Tom Paz MD Prior to Admission: Functional Status: Minimal assist with ADLs Primary Caregiver: Private caregiver Support System: Children, Friends/neighbors (Son: Porter Serrano [phone]/Friend: Federico [phone]) Home Care Services: Yes Type of Home Care Services: receiving worker (receiving worker 5 days per week, 5-6.25 hour [...] homeless or living in a fdc (including now)?: No (02/11/241633) Utilities: Yes (CUONG Hansen), (02/11/241634) Social Connections: In a typical week, how many times do you talk on the phone with family, friends, or neighbors?: Once a week How often do you get together with friends or relatives?: Once a week How often do you attend restorationism or scientologist services?: More than 4 times per year Do you belong to any clubs or organizations such as restorationism groups, unions, fraternal [...] reports needing assistance with ADLs. Has a key worker and has a quad cane and [...] Collaboration with Patient, Provider, Direct Care Nurse, Speedometer Inspector, and other members of theHealth Care Team to assure needed interventions completed. 2. Return patient to optimal level of self-care post discharge. 3. Sales Department Clerk will follow for Discharge Planning - interventions as needed 4. Anticipated level of care at discharge 5. Planned Discharge Disposition SONALI Brothers, RN events traffic controller [phone] documented in this encounter Plan of Treatment [...] on filedocumented in this encounter Care Teams Auto Seat Cover Installer Relationship Specialty Start Date End Date Tom Paz MD PCP - General 09/09/16 Tab Taylor MD [address] [place] [address] Consulting Physician Cardiology 01/03/20 Favian Caceres MD [address] [place] [address] Consulting Physician Rheumatology 08/28/23 documented as of this encounter
--- OUTSIDE RECORDS SUMMARY | 2025-06-10 04:49 | XMS_ITS | Encounter Summary ---
Author Organization [facility] Healthcare Address [address] [place] [address] Care Team Providers Care Half Section Ironer Name Role Phone Tom Paz MD Primary Care Provider [phone] Tab Taylro MD Unavailable [phone] Favian Caceres MD Unavailable [phone] Reason for Visit * Reason Onset Date Comments Scheduling Appointments 04/15/2024 Schedule patient for Imaging Genicular RFA Right (06324) and 1m follow Encounter Details Date Type Department Care Team (Late st Contact Info) Description 04/15/2024 Telephone [facility] [address] [address], [address] [place] [address] Dougie Lord MD [address] [address] Scheduling Appointments (Schedule patient for Imaging Genicular RFA Right (20199) and 1m follow ) Social History Tobacco Use Types Packs/Day Years Used Date Smoking Tobacco: Never Passive Smoke Exposure: Past Smokeless Tobacco: Never Alcohol Use Standard Drinks/Week Comments No 0 (1 standard drink = 0.6 oz pur e alcohol) [facility] Utilities Answer Date Recorded In the [...] often do you attend chur ch or latter-day services? 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
--- OUTSIDE RECORDS SUMMARY | 2025-06-10 04:50 | XMS_ITS | Clinical Summary ---
Author Organization [employer] Administrative Offices Address [address] [place] [address] Care Team Providers Care Armored Cable Machine Operator Name Role Phone Tom Paz MD Primary Care Provider [phone] Allergies Active Allergy Reactions Criticality Noted Date [...] blisters Etanercept Swelling Low 12/09/2023 Embrel Gum Jrdyff-Wzpewj-Mxvk-Alcoho l Rash Low 12/09/2023 Mastisol - blisters [...] this topic Medical Devices Implanted Type Area Shoe Dresser Device Identifier Shelf Expiration Date Model / Serial / Lot Tyrx Antibacterial Envelope Med [id number] - [id number] Implanted:Qty: 1 on 12/24/2023 at [facility] Mesh Left: Chest [employer]- CARD RHYTHM MGMT 10/01/2024 [id number] / / [id number] Neuro Stimulator Neuro Stimulator [employer] SC-1200 / / Description:leads: SC- Need lead numbers Dc Ppm Gen Implanted:Qty: 1 on 12/24/2023 by Burton Forbes MD at [facility] N/A: Chest Wall [id number] / [id number] / Explanted Type Area Shoe Dresser Device Identifier Shelf Expiration Date Model / Serial / Lot Dc Eluna 8 Ppm Gen Explanted:Qty: 1 on 12/24/2023 by Burton Forbes MD at [facility] Pacemaker Chest Wall [employer] ELUNA 8 KRISTY / [id number] / Description:Implant date: Per [employer] Rep - NOT MRI safe (extra cap lead -ABANDONED LEAD - NO MRI -lizandro 08/14/23 Insurance MEDICARE [facility] [address] [place] [address] MEDICARE PART A AND B UNIT [address] [place] [address] RX [employer] RX Member Subscriber Plan / Payer (Ef fective 2023-Present) Name:Naye Hart Relation to Subscriber:Self Name:Naye Hart Subscriber ID:Not on file Payer ID:Not on file Group ID:[id number] Type:RX Commercial Address: [address] Advance Directives For more information, please contact: [phone] Documents on File Type Date Recorded Patient Casework Specialist Expl anation Advance Directive POA 12/24/2023 8:33 AM Ad valenzuela Directive POA * Full Code (Latest Code Status on File) Date Activated Date Inactivated Comments 12/24/2023 3:32 PM 12/25/2023 12:17 PM Care Teams Armored Cable Machine Operator Relationship Specialty Start Date End Date Tom Paz MD [address] [place] [address] PCP - General Family Practice 01/28/22
--- OUTSIDE RECORDS SUMMARY | 2025-06-10 04:50 | XMS_ITS | Clinical Summary ---
Author Organization [facility] al Address [address] [place] [address] Care Team Providers Care Carpet Binder Name Role Phone Tom Paz MD Primary Care Provider [phone] Tab Taylor MD Unavailable [phone] Favian Caceres MD Unavailable [phone] Allergies Active Allergy Reactions Criticality Noted Date [...] 04/09/2011 Severe vomiting Diphenhydramine Hives,Syncope High 04/09/2011 Apixaban Unknown 03/27/2025 Pt unsure of reaction Emollient Base Rash,Blisters High 12/09/2023 Dermabond - blisters Etanercept Itching Low 02/24/2022 Gum Zvwvdg-Jrpuec-Qrtj-Alcoho l Blisters,Rash High 12/17/2021 Mastisol - blisters and spaulding Hydrocodone Hives Medium 03/16/2024 Hydromorphone Hives High 11/21/2019 Imipramine Hives,Rash High 02/28/2014 Meclizine Anaphylaxis,Swelling High 04/09/2011 Throat swelled meclizine Methyl Salicylate Unknown 05/12/2023 She says this is not even on her list Tapentadol Nausea & Vomiting Medium 02/20/2025 Pt stated severe nausea and vomiting Oxycodone-Acetaminophen Hives High 04/09/2011 Penicillins Hives,Rash High 04/09/2011 Prochlorperazine Anaphylaxis,Swelling High [...] chest pain NONE IN OVER A MONTH 2019 Active metoprolol tartrate (LOPRESSOR) 50 mg immediate release tabletIndication s:coronary artery disease,heart Take 1 tablet (50 mg total) by mouth 2 (two) times a day Active montelukast (SINGULAIR) 10 mg tabletIndication s:Seasonal Allergic Rhinitis Take 1 tablet (10 mg total) by mouth every morning 2020 Active hydrOXYzine (ATARAX) 25 mg tabletIndication s:Urticaria,(CRP S) RSD- will rip my skin off if I don't take it Take 1 tablet (25 mg total) by mouth 3 (three) times a day 2022 Active albuterol HFA (PROVENTIL HFA,VENTOLIN HFA,PROAIR HFA) 90 mcg/actuation inhalerIndicatio ns:Bronchospasm Prevention,short ness or breath Inhale 1 puff every 4 (four) hours as needed for wheezing or shortness of breath 2022 Active EPINEPHrine 0.3 mg/0.3 mL auto-injection syringeIndicatio ns:Anaphylaxis Inject 0.3 mL (0.3 mg total) into the muscle as instructed as needed for anaphylaxis None in past month 2022 Active rOPINIRole (REQUIP) 1 mg tabletIndication s:Restless Legs Syndrome Take 1 tablet (1 mg total) by mouth 3 times a day Usually takes 2-3 times daily 2022 Active promethazine (PHENERGAN) 25 mg suppositoryIndic ations:Nausea and Vomiting Insert 1 suppository (25 mg total) into the rectum every 6 (six) hours as needed for nausea or vomiting This is patients preferred Nausea medication Active triamcinolone (KENALOG) 0.1 % creamIndications :skin rash Apply 1 g topically 2 (two) times a day as needed for irritation or rash (very sensitive skin) 2023 Active pramipexole (MIRAPEX) 1 mg tabletIndication s:Restless Legs Syndrome Take 1 tablet (1 mg total) by mouth 3 (three) times a day Activ e fexofenadine (MORGAN) 180 mg tabletIndication s:Allergic Rhinitis,Seasona l Allergic Rhinitis Take 1 tablet (180 mg total) by mouth every morning Active rosuvastatin (CRESTOR) 40 mg tabletIndication s:hyperlipidemia Take 1 tablet (40 mg total) by mouth every morning 2023 Active ondansetron ODT (ZOFRAN-ODT) 4 mg disintegrating tabletIndication s:nausea Take 1 tablet (4 mg total) by mouth every 8 (eight) hours as needed for vomiting or nausea 2023 Active leflunomide (ARAVA) 20 mg tablet Take 0.5 tablets (10 mg total) by mouth daily 30 tablet 1 2024 Active Additional Information Patient taking differently:10 mg oralEvery morning, Indications: Rheumatoid Arthritis, Informant: Self, Reported on 06/02/2025 hydrocortisone 2.5 % cream Apply topically 2 (two) times a day as needed (Rash) Apply twice daily to face as needed for rash 15 g 2024 Active Additional Information Patient taking differently: 1 Applicationtopical 2 times daily PRN,irritation, rash, Rash, Apply twice daily to face as needed for rash,Indications: Skin Inflammation, skin rash, Informant: Self, Reported on 06/02/2025 baclofen (LIORESAL) 5 mg tabletIndication s:Muscle Spasticity of Spinal Origin Take 1 tablet (5 mg total) by mouth daily as needed for muscle spasms 2024 Active oxyBUTYnin XL (DITROPAN-XL) 10 mg 24 hr tabletIndication s:Bladder Hyperactivity Take 1 tablet (10 mg total) by mouth every morning 2024 Active sucralfate (CARAFATE) 1 gram tabletIndication s:Heartburn Take 1 tablet (1 g total) by mouth 2 (two) times a day 2024 Active dexlansoprazole (DEXILANT) 60 mg capsule Take 1 capsule (60 mg total) by mouth daily 30 capsule 11 2024 Active Additional Information Patient taking differently:60 mg oralEvery morning, Indications: gastroesophageal reflux disease, Informant: Self, Reported on 06/02/2025 celecoxib (CeleBREX) 200 mg capsuleIndicatio ns:Rheumatoid Arthritis Take 1 capsule (200 mg total) by mouth daily before breakfast 2024 Active Simponi 50 mg/0.5 mL pen injector INJECT 50 MG (0.5 ML) UNDER THE SKIN EVERY 4 WEEKS 1.5 mL 2 2024 Active Additional Information Patient taking differently: 1 mg subcutaneous Every 30 days, Last does 04/19/2025, Indications: Rheumatoid Arthritis, Informant: Self, Reported on 06/02/2025 colestipoL (COLESTID) 1 gram tabletIndication s:hypercholester olemia Take 1 tablet (1 g total) by mouth daily before breakfast Active diphenoxylate-at ropine (LOMOTIL) 2.5-0.025 mg per tabletIndication s:diarrhea Take 1 tablet by mouth 4 (four) times a day as needed for diarrhea Has not used in over a month Acti ve fluorouraciL (EFUDEX) 5 % cream Apply 1 Application topically as needed Activ e morphine (MSIR) 15 mg tabletIndication s:Pain Take 1 tablet (15 mg total) by mouth every 4 (four) hours as needed for pain Take one tablet BID and additional tablet PRN 2024 Active ibuprofen-acetam inophen 125-250 mg tabletIndication s:Back Pain Take 2 tablets by mouth as needed Active duloxetine HCl (DULOXETINE ORAL)Indications :depression and anxiety Take 90 mg by mouth every morning Active aspirin 81 mg enteric coated tabletIndication s:Myocardial Reinfarction Prevention,hold 24 hours Take 1 tablet (81 mg total) by mouth every morning Pt has not restarted since 02/2025 surgery 15 tablet 2024 Active traMADoL (ULTRAM) 50 mg tablet Take 1 tablet (50 mg total) by mouth every 6 (six) hours as needed for pain 15 tablet 2024 Active morphine (MSIR) 15 mg tablet Take 1 tablet (15 mg total) by mouth every 4 (four) hours as needed for pain 5 tablet 2024 Active aspirin 81 mg enteric coated tabletIndication s:Myocardial Reinfarction Prevention,hold 24 hours Take 1 tablet (81 mg total) by mouth every morning Pt has not restarted since 02/2025 surgery 06/02 Discontinued Active Problems Problem Noted Date Diagnosed [...] QuantGold Assessment & Plan (07/28/2024 11:19 AM NAIL STICKER): Monitor routine labs while on immunosuppressive medications. [...] QuantGold Assessment & Plan (09/22/2023 12:26 PM NAIL STICKER): Monitor routine labs while on immunosuppressive medications. [...] QuantGold Assessment & Plan (09/11/2022 12:48 PM NAIL STICKER): Monitor routine labs while on immunosuppressive medications. Recent 08/20 labs stable. 06/2020: Neg Hep B/C 03/2021: Neg QuantGold Assessment & Plan (07/01/2022 9:25 AM NAIL STICKER): Monitor routine labs while on immunosuppressive medications. [...] QuantGold Assessment & Plan (08/19/2021 2:31 PM NAIL STICKER): Monitor routine labs while on immunosuppressive medications. [...] Hospitalized for total of 8 days, at [facility] and then [facility]. [...] Hospitalized for total of 8 days, at [facility] and then [facility]. [...] 07/24/2020 Assessment & Plan (07/24/2020 12:34 PM NAIL STICKER): Her greatest pain complaint at this time [...] 07/24/2020 Assessment & Plan (07/01/2022 2:12 PM NAIL STICKER): Self weaned off Cymbalta 2 days ago [...] exercise. Assessment & Plan (08/27/2020 2:41 PM NAIL STICKER): Fatigue with sensation of pain all over [...] exercise. Assessment & Plan (07/24/2020 12:36 PM NAIL STICKER): Fatigue with sensation of pain all over [...] PT. Assessment & Plan (08/28/2020 12:26 PM NAIL STICKER): Multifocal OA (hands and hips) per recent xrays. Continue Tylenol 500 mg qid. Continue PT. Assessment & Plan (07/24/2020 12:41 PM NAIL STICKER): Multifocal OA (hands and hips) per recent [...] stable. Assessment & Plan (07/28/2024 11:22 AM NAIL STICKER): Off MTX (oral ulcers/hair thinning). Remains on [...] needed. Assessment & Plan (09/22/2023 12:32 PM NAIL STICKER): A 09/2022 repeat left hand/wrist US demonstrated [...] needed. Assessment & Plan (09/11/2022 12:48 PM NAIL STICKER): Continued 15mg MTX weekly and monthly Simponi [...] Chan. Assessment & Plan (08/06/2022 9:00 PM NAIL STICKER): Has continued 15mg MTX weekly as well [...] we have no access to them through [employer]. She already had an OV scheduled for 09/02 - will re-evaluate joints at that time and consider repeat hand US if synovitis is absent/minimal on exam but she is still noting pain -to evaluate for underlying inflammation. She may require change in biologic medication. Assessment & Plan (07/01/2022 2:09 PM NAIL STICKER): CDAI 37, high Off Enbrel due to ISRs. Continued MTX and Simponi injections. Noted improvement after prednisone taper at last visit. Joints were feeling good until a few weeks ago when she returned from a trip to [place] an self weaned off Cymbalta. 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 Continue [...] Chan. Assessment & Plan (08/19/2021 9:00 PM NAIL STICKER): CDAI 25. On 15mg MTX weekly but has only taken 3 Enbrel injections so far. Just completed a medrol dose pack from her exercise teacher due to inflammation around her heart [...] incontinence. Has followed up with PCP and exercise teacher - started Ubrelvy for JACKSON and exercise teacher is to adjust her pacemaker on [...] ). A letter was provided for [facility] to allow Humira to be brought [...] needed. Assessment & Plan (08/28/2020 12:26 PM NAIL STICKER): Our workup showed an JANNET 1:160 but [...] needed. Assessment & Plan (07/24/2020 12:33 PM NAIL STICKER): 54yoF referred for evaluation due to +JANNET [...] reassess. Assessment & Plan (07/06/2020 4:49 PM NAIL STICKER): 54yoF referred for evaluation due to +JANNET [...] (12/13/2019): Added automatically from request for surgery [id number] SVT (supraventricular tachycardia) 12/13/2019 Overview (12/13/2019): Added automatically from request for surgery [id number] A-fib 11/24/2019 Overview (11/24/2019): Added automatically from request for surgery [id number] Laryngopharyngeal reflux (LPR) 08/04/2018 Assessment & Plan (10/20/2018 12:26 PM CDT): No longer taking the omeprazole and ranitidine as prescribed. Patient is no longer experiencing any coughing, sinonasal or throat symptoms. Assessment & Plan (08/04/2018 1:17 PM NAIL STICKER): Add omeprazole 40 mg Q morning 30 [...] resume. Assessment & Plan (08/04/2018 1:11 PM NAIL STICKER): Patient's chronic cough is most likely secondary [...] Encounters Date Type Department Care Team Description 06/06/2025 Telephone [facility] Emergency Department [address] [place] [address] German Williamson RN 06/05/2025 11:19 AM NAIL STICKER - 06/05/2025 2:19 PM NAIL STICKER Emergency [facility] Emergency Department [address] [facility] [place] [address] Leonard Felix Jr., MD Post-op pain (Primary Dx); Closed head injury, initial encounter; Acute strain of neck muscle, initial encounter; Fall, initial encounter; Acute nonintractable headache, unspecified headache type; Right shoulder strain, initial encounter Discharge Disposition: Discharge to home or self care 06/05/2025 Telephone [facility] Otolaryngology Head-Neck Division [address] Floor [address] [place] [id number] Svetlana Parks RN 06/04/2025 Telephone [facility] Medicine ENT [address] 11[address] [place] [address] [place] [id number] Miguel Melvin MD 06/02/2025 2:07 PM NAIL STICKER Anesthesia Event [facility] Operating Room [address] [place] [address] Henri Rosado MD Horton, Cheryl Renee Hill, NP 06/02/2025 1:55 PM NAIL STICKER - 06/02/2025 3:30 PM NAIL STICKER Surgery [facility] Operating Room [address] [place] [address] Roge Dowell MD IMPLANTATION HYPOGLOSSAL NERVE STIMULATOR. [31138 (CPT )] 06/02/2025 11:36 AM NAIL STICKER - 06/02/2025 5:05 PM NAIL STICKER Hospital Encounter [facility] Operating Room [address] [place] [address] Roge Dowell MD CELINA (obstructive sleep apnea) (Primary Dx) Discharge Disposition: Discharge to home or self care 03/28/2025 Telephone [facility] Neuro Sleep [address] 6th [address] [place] [phone] Lesia Collinsne 03/24/2025 Telephone [facility] Otolaryngology [address] [place] [address] Helena Kamara, 03/15/2025 Orders Only [facility] Health Information Management [address] [place] [address] Scanning, Provider from Last 3 Months Surgical History Surgery Date Site/Laterality Comments SPINE SURGERY x4 has another surgery coming up WRIST SURGERY 07/20/1997 - 07/19/1998 Left torn ligament TUBAL LIGATION 07/20/1988 - 07/19/1989 Bilateral SPINAL CORD STIMULATOR IMPLANT 07/20/2017 - 07/19/2018 X's 4 ENDOMETRIAL ABLATION W/ NOVASURE 07/20/2013 - 07/19/2014 HERNIA REPAIR 07/20/2016 - 07/19/2017 INSERT VENA CAVA FILTER 06/09/2007 is still implanted INSERT / REPLACE / REMOVE PACEMAKER 07/04/2019 is 100% dependent on pacemaker INSERT / REPLACE / REMOVE PACEMAKER 12/24/2023 Have been in there 4 times; had to move a lead, take out a lead, put in another pacemaker INSERT / REPLACE / REMOVE PACEMAKER 12/18/2024 - 01/16/2025 x2 in 10 days to repair the pacemaker COLONOSCOPY W/ BIOPSIES 08/02/2024 UPPER GASTROINTESTINAL ENDOSCOPY 11/23/2024 RADIOFREQUENCY ABLATION [...] appendage and no blood can pool anymore) OTHER SURGICAL HISTORY 02/17/2025 - 03/19/2025 si joint fusion, skin removal after surgery, x2 surgeries in 02/2025 OTHER SURGICAL HISTORY 02/24/2025 sleep study AV NODE ABLATION 01/02/2020 IMPLANTATION HYPOGLOSSAL NERVE STIMULATOR 06/02/2025 Neck/N/A Procedure: IMPLANTATION HYPOGLOSSAL NERVE STIMULATOR.; Surgeon: Roge Dowell MD; Location: [facility] OPERATING ROOM; Service: Otolaryngology; Laterality: N/A; Medical devices from this surgery are in the Medical Devices section. Medical History Medical History Date Comments Hx [...] drink = 0.6 oz pur e alcohol) [facility] [employer] Answer Date Recorded In the past 12 months has [employer], gas, oil, or water [employer] threatened to shut off services in your [...] , or living with a partner? 02/11/2024 Overall Financial Resource Strain (CARDIA) Answe [...] a skilled nursing (including now)? No 02/11/2024 AUDIT-C Answer Date Recorded Frequency of Alcohol Consumption Not on file 05/05/2025 Q2: How many drinks containi ng alcohol do you have on a typical day when you are drinking? Patient does not drink Frequency of Binge Drinking Not on file 04/19 Personal Safety Answer Date Recorded Have you ever been in or are you currently in a harmful physical or emotional relationship or is someone making you feel afraid or unsafe? Denies 06/05/2025 Comments No Sex and Gender Information Value Date Recorded Sex Assigned at Not on file Legal Sex Female 12:21 AM NAIL STICKER Gender Identity Not on file Sexual Orientation Not on file Last Filed Vital Signs Vital Sign Reading Time Taken Comments Blood Pressure 155/90 06/05/2025 2:15 PM NAIL STICKER Pulse 70 06/05/2025 2:15 PM NAIL STICKER Temperature 36.4 C (97.5 F) 06/05/2025 2:15 PM NAIL STICKER Respiratory Rate 15 06/05/2025 2:15 PM NAIL STICKER Oxygen Saturation 98% 06/05/2025 2:15 PM NAIL STICKER Inhaled Oxygen Concentration - - Weight 83.5 kg (184 lb) 06/05/2025 10:42 AM NAIL STICKER Height 172.7 cm (5' 8) 05/05/2025 3:21 PM CDT Body Mass Index 27.98 05/05/2025 3:21 PM CDT Plan of Treatment Health Maintenance Due Date Last Done Comments Breast Cancer Screening-Mammogram 1964 Cervical Cancer Screening 1964 Depression Screening 1964 Hepatitis B Screening 1982 Regular Well Visit/Exam 18-64 1982 Pneumococcal vaccine <65 (1 of 2 - PCV) 1983 Zoster Vaccine (1 of 2) 1983 Influenza Vaccine (#1) 2025 DTaP/Tdap/Td Vaccine (2 [...] home safety. Medical Devices Implanted Type Area Mobility Architect Manager Device Identifier Shelf Expiration Date Model / Serial / Lot Ivc Filter-06/09/2007 Implanted:Qty: 1 on 06/09/2007 by Tam Fraser MD IVC Filter N/A: Vena Cava Lead-Spinal Cord Stimulator- 8 Implanted:08/20/19 18 by Taran Ramirez MD (Quantity not on file) Lead Back [employer] SC-2158- [id number] / / Biotronik Ra Lead ([id number])- 9 Implanted:07/04/20 19 (Quantity not on file) Lead Chest Biotronik SOLIA S 45 [id number] / [id number] / Lead (Rv)-05/23/2021 Implanted:05/23/20 21 (Quantity not on file) Lead Heart Bi[employer]ik SOLIA S 53 [id number] 177 / [id number] / Biotronik Paceomaker Amvia Edge -T-12/24/2023 Implanted:12/24/19 24 (Quantity not on file) Pacemaker Chest Wall Biotronik [id number] / [id number] / Spinal Cord Stimulator- 8 Implanted:Qty: 1 on 08/20/2017 by Taran Ramirez MD Spinal Cord Stimulator N/A: Back [employer] SC-1200 / [id number] / Spinal Cord Stimulator Lead-08/20/2017 Implanted:08/20/19 18 by Taran Ramirez MD (Quantity not on file) Spinal Cord Stimulator Back [employer] Neuro- [id number] / / Hardware Thoracic- Lumbar Spine Loop Recorder Chest Wall [employer] System Closure Repair Femoral Artery Suture Mediated Perclose Prostyle 08256-58 - [id number] Implanted:Qty: 1 on 02/09/2024 by Morgan Roy MD at [facility] [employer] 11/16/2025 [id number] / / [id number] [employer] Percutaneous Transcatheter Amplatzer Amulet 18mm [id number] - [id number] Implanted:Qty: 1 on 02/09/2024 by Morgan Roy MD at [facility] Vascular 09/17/2027 9-[id number] / / [id number] [employer] System Closure Repair Femoral Artery Suture Mediated Perclose Prostyle 11836-01 - [id number] Implanted:Qty: 1 on 02/09/2024 by Morgan Roy MD at [facility] Vascular 11/16/2025 [id number] / / [id number] [employer] Sling Urinary Incontinence Female Stress Short Desara Blue Sis-Ds01bs - [id number] Implanted:Qty: 1 on 06/28/2024 by Shankar Mak MD at [facility] N/A: Urethra [employer] 01/04/2027 SIS-DS01 BS / / [id number] [employer] Lead Neurostimulator Sleep Apnea Thoracic Permanent Hypoglossal Nerve 4063 - [id number] Implanted:Qty: 1 on 06/02/2025 at [facility] Right: Neck [employer] 03/21/2027 4063 / [id number] / [employer] System Stimulation Electrical Pulse Generator Vagus Nerve Inspire Sterile 3150 - [id number] - [id number] Implanted:Qty: 1 on 06/02/2025 at [facility] Right: Neck [employer] 12/30/2027 3150 / [id number] / Explanted Type Area Mobility Architect Manager Device Identifier Shelf Expiration Date Model / Serial / Lot Biotronik Rv Lead ([id number])-07/04 Implanted:Qty: 1 on 07/04/2019 Explanted:Qty: 1 Lead Chest Biotronik [id number] / / Description:This lead was re placed and left behind per patient on 05/23/21 Biotronik Pacemaker ([id number])-07/04 Implanted:Qty: 1 on 07/04/2019 Explanted:Qty: 1 on 12/24/2023 Pacemaker Left: Chest Biotronik ELUNA 8 KRISTY CARBAJAL / [id number] / [id number] Procedures Procedure Name Priority Date/Time Associated Diagnosis Comments XR SHOULDER RIGHT 2 OR MORE VIEWS ED 06/05/2025 1:09 PM NAIL STICKER ED NASAL PHARYNGEAL SCOPE Routine 06/05/2025 1:00 PM NAIL STICKER POCT CREATININE - DEVICE Routine 06/05/2025 11:59 AM NAIL STICKER EGFR STAT 06/05/2025 11:52 AM NAIL STICKER DIFFERENTIAL AUTO STAT 06/05/2025 11: 52 AM NAIL STICKER PROTIME-INR STAT 06/05/2025 11:52 AM NAIL STICKER APTT STAT 06/05/2025 11:52 AM NAIL STICKER COMPREHENSIVE METABOLIC PANEL STAT 06/05/2025 11:52 AM NAIL STICKER CBC WITH AUTO DIFFERENTIAL STAT 06/05/2025 11:52 AM NAIL STICKER XR CHEST 1 VIEW ED Urgent/IP Urgent 06/02/2025 3:41 PM NAIL STICKER SC AN PROCEDURE PLACEHOLDER Routine 06/02/2025 2:42 PM NAIL STICKER SC AN ELECTIVE ENDOTRACHEAL AIRWAY Routine 06/02/2025 2:42 PM NAIL STICKER SC OPEN IMPLTJ HPGLSL NRV NSTIM RA PG&RESPIR SENSOR 06/02/2025 2:09 PM NAIL STICKER CELINA (obstructive sleep apnea) SCAN - OTHER ORDERS 03/15/2025 COLONOSCOPY 08/02/2024 1:43 PM NAIL STICKER HEPATITIS C ANTIBODY Routine 07/06/2020 2:58 PM NAIL STICKER Polyarthralgia Encounter for screening for other viral diseases from Last 3 Months or Most Recently Relevant to Health Maintenance Results * XR Shoulder Right 2 or More Views (06/05/2025 1:09 PM NAIL STICKER) Anatomical Region Laterality Modality Upper Extremities, Shoulder Right Comp uted Radiography 06/05/2025 1:46 PM NAIL STICKER Impressions 06/05/2025 2:39 PM NAIL STICKER Partially imaged right hypoglossal nerve stimulator. No acute fracture or dislocation. The surrounding soft tissue is within normal limits. Dictated by: Eros Whitehead M.D. The radiology attending physician has personally reviewed this study, and had reviewed and/or edited this written report and agrees with it. Electronically signed by: Troy Patino M.D. Narrative 06/05/2025 2:39 PM NAIL STICKER EXAMINATION: XR SHOULDER RIGHT 2 OR MORE VIEWS HISTORY: 59-year-old female presenting after a fall. Procedure Note Troy Patino MD - 06/05/2025 EXAMINATION: XR SHOULDER RIGHT 2 OR MORE VIEWS HISTORY: 59-year-old female presenting after a fall. IMPRESSION: Partially imaged right hypoglossal nerve stimulator. No acute fracture or dislocation. The surrounding soft tissue is within normal limits. Dictated by: Eros Whitehead M.D. The radiology attending physician has personally reviewed this study, and had reviewed and/or edited this written report and agrees with it. Electronically signed by: Troy Patino M.D. Leonard Felix Jr., MD IMG XR PROCEDURES Anupama l Result * ED NASAL PHARYNGEAL SCOPE (06/05/2025 1:00 PM NAIL STICKER) Narrative Leonard Felix Jr., MD - 06/05/2025 1:00 PM NAIL STICKER Leonard Felix Jr., MD 06/05/2025 9:37 PM Nasal Pharyngeal Scope Date/Time: 06/05/2025 1:00 PM Performed by: Leonard Felix Jr., MD Authorized by: Leonard Felix Jr., MD [place] Protocol: RN Notified of Procedure: yes Informed consent: Risks, benefits, alternatives discussed Allergies confirmed: yes Imaging: Pertinent imaging reviewed, correctly oriented and match to patient identifiers Procedure details: Indications: assessment of airway Instrument: flexible fiberoptic nasal endoscope Post-procedure details: Patient tolerance of procedure: Tolerated well, no immediate complications Post Procedure Debrief: All guidewires, needles, sponges or other items are accounted for: yes Comments: Procedures performed: Flexible Nasal Laryngoscopy Secondary to airway evaluation, flexible nasal laryngoscopy was indicated. Therefore the patient was topically decongested and anesthetized with Afrin and lidocaine spray mixture. The scope was passed along the inferior border of the nasal cavity. There were no nasal masses or lesions. The nasopharynx is unremarkable. There are no masses or lesions in the nasopharynx. The palate elevated normally. The oropharynx was then visualized. The tongue base was unremarkable. The vallecula was clear. The epiglottis was normal. The posterior oropharyngeal wall was unremarkable. The aryepiglottic folds, pyriform sinuses, false vocal cords, and true vocal cords were all unremarkable. The true vocal cords were symmetrically mobile with complete abduction and adduction. The proximal subglottis and trachea that could be visualized were unremarkable. The scope was withdrawn. The patient tolerated this well. There were no complications. Procedure performed by ENT consulting resident , I was present to supervise in the ED. Leonard Felix Jr., MD [place] CLINIC/BEDSIDE SIMÓN FERRER Final Result * POCT creatinine (06/05/2025 11:59 AM NAIL STICKER) Creatinine POC 0.9 0.6 - 1.1 mg/dL Blood 06/05/2025 11:5 9 AM NAIL STICKER 06/05/2025 11:59 AM NAIL STICKER Leonard Felix Jr., MD LAB POCT ORDERABLES - DEVICE Final Result Performing Organization Address City/State/[facility] Co de Phone Number [facility] Department [place] [address] * eGFR (06/05/2025 11:52 AM NAIL STICKER) eGFR 70 >=60 mL/min/1. 73 m2 Comment: Interpretive Data Reference Interval Normal >/= 90 mL/min/1.73m2 Mildly decreased* 60 - 89 mL/min/1.73m2 Mildly to moderately decreased 45 - 59 mL/min/1.73m2 Moderately to severely decreased 30 - 44 mL/min/1.73m2 Severely decreased 15 - 29 mL/min/1.73m2 Kidney Failure < 15 mL/min/1.73m2 *Relative to young adult level Estimated glomerular filtration rate is determined by the 2020 CKD-EPI equation recommended by the National Kidney Foundation (A Unifying Approach to GFR Estimation: Recommendations of the NKF-ASK Task Force on Reassessing the Inclusion of Race in Diagnosing Kidney Disease, JASN 202). The CKD-EPI equation should not be used for patients with unstable renal function and has not been validated in children and those over 70. Current interpretive data was last reviewed 2021. Blood 06/05/2025 11:5 2 AM NAIL STICKER 06/05/2025 12:03 PM NAIL STICKER us Leonard Felix Jr., MD LAB BLOOD ORDERABLES F inal Result [facility] [place] [address] * Differential, auto (06/05/2025 11:52 AM NAIL STICKER) Neutrophil abs 2.93 1.50 - 6.50 K/cumm Imm gran abs 0.02 0.00 - 0.10 K/cumm [facility] Lymphocyte abs 1.87 0.80 - 3.30 K/cumm [facility] Monocyte abs 0.37 0.20 - 0.80 K/cumm [facility] Eosinophil abs 0.06 0.00 - 0.50 K/cumm [facility] Basophil abs 0.03 0.00 - 0.10 K/cumm [facility] Neutrophil pct 55.5 % [facility] Comment: Interpretive Data Percent cell count reference ranges are not reported, since discordance with absolute values may lead to misinterpretation of CBC data. Current Interpretive Data was last revised on 2017. Imm gran pct 0.4 % [facility] Comment: Interpretive Data Percent cell count reference ranges are not reported, since discordance with absolute values may lead to misinterpretation of CBC data. Current Interpretive Data was last revised on 2017. Lymphocyte pct 35.4 % [facility] Comment: Interpretive Data Percent cell count reference ranges are not reported, since discordance with absolute values may lead to misinterpretation of CBC data. Current Interpretive Data was last revised on 2017. Monocyte pct 7.0 % [facility] Comment: Interpretive Data Percent cell count reference ranges are not reported, since discordance with absolute values may lead to misinterpretation of CBC data. Current Interpretive Data was last revised on 2017. Eosinophil pct 1.1 % [facility] Comment: Interpretive Data Percent cell count reference ranges are not reported, since discordance with absolute values may lead to misinterpretation of CBC data. Current Interpretive Data was last revised on 2017. Basophil pct 0.6 % [facility] Comment: Interpretive Data Percent cell count reference ranges are not reported, since discordance with absolute values may lead to misinterpretation of CBC data. Current Interpretive Data was last revised on 2017. Blood 06/05/2025 11:5 2 AM NAIL STICKER 06/05/2025 12:03 PM NAIL STICKER us Leonard Felix Jr., MD LAB BLOOD ORDERABLES F inal Result [facility] [place] [address] * (ABNORMAL) CBC with auto differential (06/05/2025 11:52 AM NAIL STICKER) WBC 5.28 3.80 - 9.90 K/cumm Hgb 11.8(L) 11.9 - 15.5 g/dL [facility] Hct 35.3(L) 35.6 - 45.5 % [facility] Plt 187 150 - 400 K/cumm [facility] MPV 9.0(L) 9.1 - 12.3 fL [facility] RBC 3.49(L) 3.90 - 5.20 M/cumm [facility] MCV 101.1(H) 81.3 - 96.4 fL [facility] MCH 33.8(H) 27.1 - 33.3 pg [facility] MCHC 33.4 32.3 - 35.7 g/dL [facility] RDW CV 12.7 11.1 - 14.9 % [facility] RDW SD 46.9 35.7 - 48.1 fL [facility] NRBC abs 0.00 0.00 - 0.01 K/cumm [facility] Blood 06/05/2025 11:5 2 AM NAIL STICKER 06/05/2025 12:03 PM NAIL STICKER Leonard Felix Jr., MD LAB BLOOD ORDERABLES F inal Result Performing Organization Address [facility] de Phone Number [facility] [place] [address] * aPTT (06/05/2025 11:52 AM NAIL STICKER) aPTT 27 26 - 38 sec Comment: Interpretive Data Heparin therapeutic range: 66.0 - 100.0 seconds. Range based on correlation with therapeutic heparin activity range of 0.3 - 0.7 Units/mL. Blood 06/05/2025 11:5 2 AM NAIL STICKER 06/05/2025 12:07 PM NAIL STICKER us Leonard Felix Jr., MD LAB BLOOD ORDERABLES F inal Result Performing Organization Address [facility] de Phone Number [facility] [place] [address] * Protime-INR (06/05/2025 11:52 AM NAIL STICKER) PT 10.9 10.2 - 13.5 sec INR 0.96 0.90 - 1.20 [facility] Comment: Interpretive data Oral anticoagulant therapeutic ranges: Venous thromboembolism prophylaxis or treatment: 2.0-3.0 CARDIOLOGY Standard range: 2.0-3.0 High-intensity range: 2.5-3.5 Refer to indication-specific guidelines for appropriate target ranges for prosthetic heart valve replacement. Current interpretive data was last revised on 2019. Blood 06/05/2025 11:5 2 AM NAIL STICKER 06/05/2025 12:07 PM NAIL STICKER us Leonard Felix Jr., MD LAB BLOOD ORDERABLES F inal Result [facility] Department [place] [address] * Comprehensive metabolic panel (06/05/2025 11:52 AM NAIL STICKER) Pathologist [facility] Sodium 140 135 - 145 mmol/L Potassium, pl 4.4 3.3 - 4.9 mmol/L [facility] Chloride 102 97 - 110 mmol/L [facility] CO2 31 22 - 32 mmol/L [facility] Anion gap 7 2 - 15 mmol/L [facility] BUN 16 6 - 25 mg/dL [facility] Creatinine 0.93 0.60 - 1.10 mg/dL [facility] Glucose 83 70 - 199 mg/dL [facility] Comment: Interpretive Data Fasting glucose >/= 126 mg/dl is diagnostic for diabetes. Fasting is defined as no caloric intake for at least 8 hours. Fasting glucose between 100 mg/dl to 125 mg/dl is diagnostic of prediabetes. In a patient with classic symptoms of hyperglycemia or hyperglycemic crisis, a random glucose >/= 200 mg/dl is diagnostic for diabetes. In the absence of unequivocal hyperglycemia, results should be confirmed by repeat testing. The classification and Diagnosis of Diabetes Diabetes Care 2021; 46: S19-S40. Current interpretive data was last revised 2022. Calcium 9.6 8.5 - 10.3 mg/dL [facility] Bilirubin, total 0.4 0.1 - 1.2 mg/dL [facility] Protein, pl 7.3 6.5 - 8.5 g/dL [facility] Albumin 4.0 3.5 - 5.0 g/dL [facility] Alk phos 96 40 - 130 Units/L [facility] ALT 27 7 - 45 Units/L [facility] AST 28 10 - 45 Units/L [facility] Blood 06/05/2025 11:5 2 AM NAIL STICKER 06/05/2025 12:03 PM NAIL STICKER us Leonard Felix Jr., MD LAB BLOOD ORDERABLES F inal Result [facility] Department [place] [address] * XR Chest 1 View (06/02/2025 3:41 PM NAIL STICKER) Anatomical Region Laterality Modality Body, Chest N/A Computed Radiogr aphy 06/02/2025 3:43 PM NAIL STICKER Impressions 06/02/2025 3:43 PM NAIL STICKER Comparison is made to prior chest radiograph 01/11/2025. There has been interval placement of a right-sided hypoglossal nerve stimulator. There is no pneumothorax. Heart size is normal. Cardiac pacemaker defibrillator present. Electronically signed by: Robin Porter M.D. Narrative 06/02/2025 3:43 PM NAIL STICKER EXAMINATION: 1 view chest radiograph Procedure Note Robin Porter MD - 06/02/2025 EXAMINATION: 1 view chest radiograph IMPRESSION: Comparison is made to prior chest radiograph 01/11/2025. There has been interval placement of a right-sided hypoglossal nerve stimulator. There is no pneumothorax. Heart size is normal. Cardiac pacemaker defibrillator present. Electronically signed by: Robin Porter M.D. us Roge Dowell MD IMG XR PROCEDURES Final Re sult * SC AN ELECTIVE ENDOTRACHEAL AIRWAY, SC AN PROCEDURE PLACEHOLDER (06/02/2025 2:42 PM NAIL STICKER) Narrative Danielle Antoine CRNA - 06/02/2025 2:42 PM NAIL STICKER Danielle Antoine CRNA 06/02/2025 2:43 PM Airway Patient location: OR Urgency: elective Indications for airway management: anesthesia Difficult airway: no Staff: Placed by: OUTPATIENT SURGERY RN: Danielle Antoine CRNA Emergent airway documentation: Risks and benefits discussed: yes Consent obtained: yes Consent given by: patient Airway prep: Preoxygenated: yes Patient position: sniffing Mask difficulty assessment: 0 - not attempted Spontaneous ventilation during airway: absent Sedation level during airway: GA Final airway details: Final airway type: endotracheal airway Tube type: ETT ETT size: 7.0 mm Cuffed: yes Technique used for successful ETT placement: video laryngoscopy Devices/Methods used in placement: stylet Insertion site: oral Blade type: Belkis Video blade type: Laboy Blade size: 3 Cormack-Lehane (video): grade I - full view of glottis Cuff volume: 8 mL Cuff inflated with: air ETT to teeth: 21 cm Placement verified by: auscultation and CO2 detection Airway secured with: silk tape Number of attempts: 1 Additional comments: Atraumatic intubation; dentition remains in preop condition. us Henri Rosado MD ANESTHESIA ORDERABLES Fi nal Result * SCAN - OTHER ORDERS (03/15/2025) us Provider Scanning Final Result * Colonoscopy (08/02/2024 1:43 PM NAIL STICKER) Anatomical Region Laterality Modality Other Narrative Procedure Note Trey Arroyo MD - 08/02/2024 1:43 PM CST [facility] ENDOS[facility] Patient Name: Naye Hart Procedure Date: 08/02/2024 1:43 PM Date of : 1965 Admit Type: Outpatient Age: 58 Gender: Female Attending MD: Trey Arroyo M.D. Room: [facility] ENDOSCOPY ROOM 8 Note Status: [...] The scope was passed under direct vision.The [id number] endoscope was introduced through the anus and advanced to the terminal ileum. The colonoscopy was performed without difficulty. The patient tolerated the procedure well. The qualityof the bowel preparation was evaluated using the BBPS (Wever Bowel Preparation Scale) with scores of:Right Colon [...] business hours - Please call theNurse Coordinator: [phone] After hours, evening, nights, weekends and holidays- Please call the hospital ride operator at and ask for the GI fellow security operations engineer. Attending Participation: I was present and participated during the entire procedure, including non-patrick portions. Electronically signed by Trey Arroyo MD Trey Arroyo M.D. 08/02/2024 2:08:56 PM . Number of Addenda: 0 Note Initiated On: 08/02/2024 1:43 PM Trey Arroyo MD ENDOSCOPY PROCEDURES Final Result * Hepatitis C antibody (07/06/2020 2:58 PM NAIL STICKER) Hep C Ab NON-REACTI VE NON-REACT GIA [facility] SIGNAL TO CUT-OFF 0.02 <1.00 [facility] Comment: HCV antibody was non-reactive. There is no laboratory evidence of HCV infection. In most cases, no further action is required. However, if recent HCV exposure is suspected, a test for HCV RNA (test code 04169) is suggested. For additional information please refer to http://education.Rollbase (acquired by [employer]).Rattle/faq/MPH38j5 (This link is being provided for informational/ educational purposes only.) Blood specimen (specimen) 07/06/2020 2:58 PM NAIL STICKER 07/06/2020 3:00 PM NAIL STICKER Narrative [facility] - 07/11/2020 9:33 PM NAIL STICKER PATIENT UNABLE TO VOID; ADVISED TO RETURN FOR COLLECTION. Olga MONTES LAB MICROBIOLOGY - GENERA L ORDERABLES Final Result [facility] [id number] [address] [phone] from Last 3 Months or Most Recently Relevant to Health Maintenance Insurance MEDICARE ID[place] MEDICARE IDPA MEDICARE [facility] [address] [place] [phone] MEDICARE MEDICARE IDPA Advance Directives For more information, please contact: [phone] * Full Code (Latest Code Status on [...] 10:10 AM 02/24/2022 4:09 PM Care Teams Carpet Binder Relationship Specialty Start Date End Date Tom Paz MD PCP - General 09/09/16 Tab Taylor MD [address] [place] [address] Consulting Physician Cardiology 01/03/20 Favian Caceres MD [address] [place] [address] Consulting Physician Rheumatology 08/28/23
--- OUTSIDE RECORDS SUMMARY | 2025-06-10 04:50 | XMS_ITS | Clinical Summary ---
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 - [address], [address] [place] [id number] Gopi Luna MD [address] [place] [address] Health Maintenance Due Date Last Done Comments Cervical Cancer Screening Pa p Smear (Age [...] of 2) 2014 COVID-19 Vaccine (1 - 2024-2 6 season) 2025 Influenza Adult (#1) 2025 DTaP, Tdap and Td Vaccines ( 2 - Td or Tdap) 10/06/2028 10/06/2018 RSV Immunization or 60+ Years (1 - 1-dose 75+ series) 2039 Hepatitis A Vaccines Aged Out No long er eligible based on patient's age to complete this topic Meningococcal B Vaccine Aged Out No l onger eligible based on patient's age to complete this topic Meningococcal Vaccine Aged Out No munir katalina eligible based on patient's age to complete this topic RSV Immunizations Under 20 Months Aged Out No longer eligible based on patient's age to complete this topic Medical Devices Implanted Type Area Epic Willow Specialist Device Identifier Shelf Expiration Date Model / Serial / Lot Ivc Filter Filter Pacemaker Pacemaker BIOTRONIK Spinal Cord Stimulator Implant Stimulator Implant Insurance MEDICARE MEDICAID Care Teams Funeral Pre Need Consultant Relationship Specialty Start Date End Date Tom Paz MD [address] [address] PCP - General 09/29/22 Hugo Ordoñ[place]., [place] [id number] [id number] CARDIOVASCULAR DISEASE 07/15/23
--- OUTSIDE RECORDS SUMMARY | 2025-06-10 04:50 | XMS_ITS | Encounter Summary ---
Author Organization [facility] Address [address] [place] [address] Phone Care Team Providers Care Press And Blow Machine Tender Name Role Phone Tom Paz MD Primary Care Provider [phone] Tab Taylor MD Unavailable [phone] Favian Caceres MD Unavailable [phone] Encounter Details Date Type Department Care Team (Late st Contact Info) Description 12/06/2024 E-Visit [facility] [address] [place] [phone] Claudia Cristobal, SIMON [address] [place] [address] Ultrasound Social History Tobacco Use Types Packs/Day Years Used Date Smoking Tobacco: Never Passive Smoke Exposure: Past Smokeless Tobacco: Never Alcohol Use Standard Drinks/Week Comments No 0 (1 standard drink = 0.6 oz pur e alcohol) [facility] Utilities Answer Date Recorded In the past 12 months has [employer] electric, gas, oil, or water company threatened [...] often do you attend chur ch or zoroastrian services? 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
[2025-06-10 04:52] VITALS: BP 138/95; PULSE 70; RESP 20
--- NOTE | 2025-06-10 05:07 | ED.GENADULT ---
HPI - General Adult General Chief complaint: Neck Pain/Injury Stated complaint: hematoma on chin post surgery Time Seen by Provider: 06/10/25 04:51 History of Present Illness HPI narrative: 59-year-old female presenting to the ER for evaluation of her wound. Patient had an inspire surgery for sleep apnea by her ENT at [facility] 06/02. She has had some postoperative changes and small hematoma under her chin where the surgical site was but was already evaluated for this by ENT and the emergency department at [facility] last week after she was there for an unrelated complaint secondary to a fall. Patient has been doing well, but has not followed up with ENT yet, but notices that her hematoma was started to get harder at the incision site and want to make sure that nothing was going wrong or causing issues. She is speaking in clear full sentences without any phonation changes or muffling. No difficulty swallowing or breathing. She is not in any respiratory distress walked in through walk-in triage. No traumatic injuries and has otherwise been healing well. She has not done anything for the hematoma at home as she was not sure how to care for. Is on daily aspirin but no other anticoagulant or NSAID. Related Data Home Medications ?Medication ?Instructions ?Recorded ?Confirmed ?Last Taken ?Type golimumab 50 mg/0.5 mL 50 mg subcut MONTHLY 03/26/23 05/05/25 02/17/25 History subcutaneous pen injector (Simponi) aspirin 81 mg tablet,delayed 81 mg PO DAILY 07/01/23 05/05/25 02/28/25 History release Held on 03/18/25. Instructions: Resume on 03/25/25. metoprolol tartrate 50 mg tablet 50 mg PO BID 10/22/23 05/05/25 03/07/25 History fexofenadine 180 mg tablet 180 mg PO DAILY 10/14/24 05/05/25 03/06/25 History (Vicky Allergy) leflunomide 20 mg tablet 10 mg PO DAILY 11/10/24 05/05/25 03/06/25 History Allergies Allergy/AdvReac Type Severity Reaction Status Date / Time meclizine Allergy Severe Rash Verified 05/09/25 14:21 carbamazepine (From Tegretol) Allergy Intermediate Blister Verified 05/09/25 14:21 2-octyl cyanoacrylate Allergy Mild Itching Verified 05/09/25 14:21 Cephalosporins Allergy Mild RASH Verified 05/09/25 14:21 clarithromycin Allergy Mild RASH Verified 05/09/25 14:21 imipramine Allergy Mild RASH Verified 05/09/25 14:21 Penicillins Allergy Mild HIVES Verified 05/09/25 14:21 cefuroxime (From Ceftin) Allergy Hives Verified 05/09/25 14:21 etanercept (From Enbrel) Allergy Redness of Verified 05/09/25 14:21 Skin hydromorphone (From Dilaudid) Allergy Hives Verified 05/09/25 14:21 oxycodone (From Percocet) Allergy Hives Verified 05/09/25 14:21 prochlorperazine (From Allergy Swelling Verified 05/09/25 14:21 Compazine) of Lip/Tongue/Throat propoxyphene (From Darvon) Allergy Hives Verified 05/09/25 14:21 propranolol (From Inderal [place]) Allergy Rash Verified 05/09/25 14:21 alcohol (From Mastisol AdvReac Severe Blister Verified 05/09/25 14:21 Adhesive) chloroxylenol (From [place] 7) AdvReac Severe rash Verified 05/09/25 14:21 gum mastic (From Mastisol AdvReac Severe Blister Verified 05/09/25 14:21 Adhesive) methyl salicylate (From AdvReac Severe Blister Verified 05/09/25 14:21 Mastisol Adhesive) storax (From Mastisol AdvReac Severe Blister Verified 05/09/25 14:21 Adhesive) tizanidine AdvReac Intermediate Hallucinati Verified 05/09/25 14:21 ng codeine AdvReac Unknown Vomiting Verified 05/09/25 14:21 diphenhydramine (From AdvReac Vomiting Verified 05/09/25 14:21 Benadryl) hydrocodone (From Vicodin) AdvReac Vomiting Verified 05/09/25 14:21 Review of Systems Review of Systems: As reviewed above in HPI All systems reviewed & are unremarkable except as noted in HPI and below PMFSH Past Medical History Medical History Knee pain Candidiasis Inflammation of pyloric mucosa Left shoulder pain Bilateral shoulder pain Stomach ulcer Leg edema, right Bilateral leg paresthesia Knee injury Pain of left femur Left thigh pain Coccygeal pain, acute COVID-19 COVID Loss of vision TMJ (temporomandibular joint disorder) Acquired deviated nasal septum Nosebleed Pacemaker Right shoulder pain Witnessed apneic spells Snoring Apnea Chronic GERD Presence of Amulet left atrial appendage closure device Pelvic pain Hematoma of left chest wall Topical med dermatitis Right hand pain Bilateral knee pain Lumbar pain Acute cervical myofascial strain Acute bacterial sinusitis Hypersomnolence Migraine Vomiting DVT (deep venous thrombosis) Flatulence Cervical pain Spasm of lumbar paraspinous muscle MCL sprain of left knee Abrasion of toe Lesion of skin of nose Pneumonia LLQ abdominal pain Knee pain Foreign body in ear BMI 29.0-29.9,adult Lumbar stenosis Foraminal stenosis of lumbar region Pancreatitis Diarrhea Family history of beta thalassemia Inappropriate sinus tachycardia Presence of IVC filter Fibromyalgia Rheumatoid arthritis Anxiety Depression Abnormality of heart beat Ear pain Wears glasses Lightheadedness Vertigo Presence of neurostimulator History of deep vein thrombosis Abdominal bloating Hypoglycemia Allergic reaction to allergy skin test Abdominal lump Anxiety about health Hyponatremia Allergic dermatitis Headache Degenerative joint disease of cervical and lumbar spine TIA (transient ischemic attack) Ataxia A-fib Confusion Atypical face pain D-dimer, elevated Left ear pain Rheumatoid arthritis, seronegative, multiple sites Foreign body of toe Groin pain Groin hematoma Restless leg syndrome Dizziness Lipid disorder Fracture of second toe, left, closed Atopic dermatitis Bradycardia Anemia, unspecified Essential (primary) hypertension Mixed hyperlipidemia Paroxysmal atrial fibrillation RSD (reflex sympathetic dystrophy) SVT (supraventricular tachycardia) Surgical History Surgical History Hx of atrioventricular node ablation History of surgery on left wrist H/O cardiac radiofrequency ablation S/P IVC filter S/P insertion of spinal cord stimulator History of tubal ligation History of endometrial ablation H/O hernia repair Status post surgical removal of both fallopian tubes History of arthroscopic knee surgery History of back surgery History of permanent cardiac pacemaker placement 2019 pacemaker replaced 2023,updated 11/2024 Family History Family History Grandparent Family history of blood dyscrasia Family history of Alzheimer's disease Family history of malignant neoplasm of cervix Mother Family history of Alzheimer's disease Thyroid activity decreased Father Family history of lung cancer Sibling Thyroid activity decreased Other Diabetes mellitus Family history of allergic disorder Family history of kidney disease Family history of malignant neoplasm of thyroid High cholesterol Social History Social History Social History: Caffeine-none Smoking packs per day: 0 Smoking cigarettes per day: 0.0 Years smoked: 0 Smoking pack-years: 0.00 Smoking status: Never smoker Second hand tobacco smoke exposure: No Alcohol intake: never Substance use: never Substance use type: does not use Do You Feel Safe in your Home?: Yes Lack of Transportation: No Lack of Food: Never True Current Housing: I Have Housing Concerned About Future Housing: No Difficulty Paying Gas/Electric Bills: No Difficulty Paying for Meds: No Currently Unemployed: No Education: High School Diploma/GED Difficulty w/ Childcare or Family Care: No Living arrangements: alone Occupation/Education: retired 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 Awake answering all questions appropriately. HEAD: Normocephalic and atraumatic EYES: [PERRLA and EOMI.] ENT: Nares clear, no rhinorrhea or epistaxis. Mucous membranes moist. no posterior oropharyngeal erythema or swelling. No muffled breathing or dysphonia. No base of tongue swelling or elevation. NECK: Supple with no restricted range of motion. Postoperative incision site and small hematoma/ Bruising underneath the distal chin appears well healing without any bleeding, purulence or incisional drainage. Minimally tender to palpation but no fluctuance. No extension laterally and appears very localized underneath the chin where her surgical site was localized to. No active bleeding or bruit. CHEST: [Clear to auscultation. No respiratory distress.] HEART: [Regular rate and rhythm]. No murmur heard. [Normal peripheral pulses.] ABDOMEN: [Soft, nondistended], [nontender], [No rigidity or guarding] EXTREMITIES: Normal range of motion. [No edema.] SKIN: postoperative incisions as above clean dry and intact. NEURO: [No focal deficits]. Alert and oriented [x3.] PSYCH: [Normal mood and affect.] Course Vital Signs Vital signs: Vital Signs Pulse Rate 70 06/10/25 04:52 Respiratory Rate 20 06/10/25 04:52 Blood Pressure 138/95 H 06/10/25 04:52 Oxygen Delivery Room Air 06/10/25 04:52 Pulse Rate 70 06/10/25 04:52 Respiratory Rate 20 06/10/25 04:52 Blood Pressure 138/95 H 06/10/25 04:52 Oxygen Delivery Room Air 06/10/25 04:52 Medical Decision Making MDM Narrative Medical decision making narrative: 59-year-old female presenting to the ER for evaluation of her wound. Patient had an inspire surgery for sleep apnea by her ENT at [facility] 06/02. She has had some postoperative changes and small hematoma under her chin where the surgical site was but was already evaluated for this by ENT and the emergency department at [facility] last week after she was there for an unrelated complaint secondary to a fall. Patient has been doing well, but has not followed up with ENT yet, but notices that her hematoma was started to get harder at the incision site and want to make sure that nothing was going wrong or causing issues. She is speaking in clear full sentences without any phonation changes or muffling. No difficulty swallowing or breathing. She is not in any respiratory distress walked in through walk-in triage. No traumatic injuries and has otherwise been healing well. She has not done anything for the hematoma at home as she was not sure how to care for. Is on daily aspirin but no other anticoagulant or NSAID. No posterior oropharyngeal erythema or swelling. No muffled breathing or dysphonia. No base of tongue swelling or elevation. Neck is supple with no restricted range of motion. Postoperative incision site and small hematoma/ Bruising underneath the distal chin appears well healing without any bleeding, purulence or incisional drainage. Minimally tender to palpation but no fluctuance. No extension laterally and appears very localized underneath the chin where her surgical site was localized to. No active bleeding or bruit. Patient has he normal vital signs and speaking in clear full sentences without any difficulty. No signs of any urgent or emergent concerns from the postoperative incision sites. No concern for airway compromise at this time. No symptomatology at this time. Patient just wanted to get her wound checked as she has yet to follow-up with ENT. Patient is safe for discharge home at this time and given wound care instructions and follow-up instructions. Patient expressed understanding the instructions as well as very strict return precautions to return with including worsening swelling, worsening pain, difficulty phonating or breathing, inability to swallow or any other emergencies such as infection or airway compromise. Patient is safe for discharge home at this time. Medical Records Medical records reviewed: Yes I reviewed the external patient's medical records. Vital Signs Vital Signs: Vital Signs Pulse Rate 70 06/10/25 04:52 Respiratory Rate 20 06/10/25 04:52 Blood Pressure 138/95 H 06/10/25 04:52 Oxygen Delivery Room Air 06/10/25 04:52 Pulse Rate 70 06/10/25 04:52 Respiratory Rate 20 06/10/25 04:52 Blood Pressure 138/95 H 06/10/25 04:52 Oxygen Delivery Room Air 06/10/25 04:52 Lab Data Lab results reviewed: Yes I reviewed the patient's lab results. Discharge Plan Discharge Clinical Impression: Hematoma Patient Disposition: Home Condition: Stable Instructions: Antibiotic Form Additional Instructions: Postoperative hematoma/seroma appears to be healing as expected with no signs of emergent concerns such as airway compromise or active bleeding or signs of infection. Apply warm compresses to the area up to 20 minutes at a time to allow for pain and swelling control as well as faster healing. Avoid NSAIDs or other antiplatelets besides your daily aspirin that you need to take. Continue taking your pain medications. Follow-up with your ENT doctor. If you notice any worsening swelling, bleeding, difficulty swallowing that is worsening, difficulty phonating or speech changes, trouble breathing, active signs of infection such as purulent drainage or any other emergencies please return to the ER otherwise your hematoma currently looks like it is healing adequately and appropriately with normal changes. Discussed with your ENT this week for close follow-up. Patient Language: Jamaican Prescriptions: No Action aspirin 81 mg tablet,delayed release (DR/EC) 81 mg PO DAILY promethazine [Promethegan] 25 mg suppository 25 mg RECTAL Q6H PRN (Reason: nausea and vomiting) Qty: 12 1RF metoprolol tartrate 50 mg tablet 50 mg PO BID nystatin 100,000 unit/gram ointment 1 applic topical BID Qty: 30 1RF Patient Comments: TAKES PRN Simponi 50 mg/0.5 mL pen injector 50 mg SUBCUT MONTHLY Patient Comments: TAKES ON THE 1ST DAY OF THE MONTH Rx Instructions: pt will not restart till 2 weeks post procedure pramipexole 1 mg tablet 1 mg PO BID Qty: 180 1RF Patient Comments: TAKES FOR RLS diclofenac sodium 1 % gel See Rx Instructions .ROUTE .COMPLEX Qty: 500 1RF Dose Instruction: APPLY 4 GRAMS TO SINGLE ELBOW, WRIST, OR HAND (INCLUDES PALM/FINGER/BACK OF HAND) 4 TIMES DAILY NEEDED FOR PAIN Rx Instructions: APPLY 4 GRAMS TO SINGLE ELBOW, WRIST, OR HAND (INCLUDES PALM/FINGER/BACK OF HAND) 4 TIMES DAILY NEEDED FOR PAIN leflunomide 20 mg tablet 10 mg PO DAILY pantoprazole 40 mg tablet,delayed release (DR/EC) 40 mg PO BID Qty: 1 0RF celecoxib 200 mg capsule 200 mg PO DAILY Qty: 30 3RF Rx Instructions: start after stopping Plavix. hydroxyzine HCl 25 mg tablet 25 mg PO Q8H Qty: 180 3RF morphine 15 mg tablet 15 mg PO Q4H PRN (Reason: pain) Qty: 42 0RF duloxetine 30 mg capsule,delayed release(DR/EC) 30 mg PO .COMPLEX Qty: 90 1RF Rx Instructions: 30 mg orally At bedtime; triamcinolone acetonide 0.1 % lotion 1 applic topical DAILY Qty: 60 0RF lidocaine 5 % adhesive patch,medicated 1 patch topical DAILY Qty: 15 0RF Rx Instructions: leave on most painful area for up to 12 hrs ondansetron 4 mg tablet,disintegrating 4 mg PO Q6H PRN (Reason: nausea and vomiting) Qty: 10 0RF albuterol sulfate [ProAir HFA] 90 mcg/actuation HFA aerosol inhaler 1 inh inhalation Q4H PRN (Reason: shortness of breath or wheezing) Qty: 6.7 3RF epinephrine [EpiPen 2-Ranulfo] 0.3 mg/0.3 mL auto-injector 0.3 mg IM ONCE PRN (Reason: Allergic Reaction) Qty: 2 0RF Rx Instructions: as a single dose; may repeat once fexofenadine [Vicky Allergy] 180 mg tablet 180 mg PO DAILY sucralfate [Carafate] 1 gram tablet 1 g PO BID Qty: 60 1RF Patient Comments: TAKES PRN nitroglycerin [Nitrostat] 0.4 mg tablet, sublingual 0.4 mg sublingual Q5MIN PRN (Reason: Chest Pain) Qty: 25 0RF triamcinolone acetonide 0.5 % cream 1 applic topical DAILY Qty: 22 0RF montelukast [Singulair] 10 mg tablet 10 mg PO DAILY Qty: 90 2RF Patient Comments: QAM rosuvastatin 40 mg tablet 40 mg PO DAILY Qty: 90 2RF ropinirole 1 mg tablet 1 mg PO TID Qty: 270 1RF duloxetine [Cymbalta] 60 mg capsule,delayed release(DR/EC) 60 mg PO HS Qty: 90 1RF Follow-up/Referrals: Tom Paz MD [Primary Care Provider, Family Practice] Time of Disposition: 05:06
== END 2025-06-10 05:18 | disposition home or self-care (01) ==
PROVIDERS: Emergency Provider Student in an Organized Health Care Education/Training Program; PCP Family Medicine
DX: Z48.813 Encounter for surgical aftercare following surgery on the respiratory system (principal); I10 Essential (primary) hypertension; I48.0 Paroxysmal atrial fibrillation; E78.2 Mixed hyperlipidemia; K21.9 Gastro-esophageal reflux disease without esophagitis; M79.7 Fibromyalgia; M06.09 Rheumatoid arthritis without rheumatoid factor, multiple sites; F41.9 Anxiety disorder, unspecified; F32.A Depression, unspecified; Z95.0 Presence of cardiac pacemaker; Z96.82 Presence of neurostimulator; Z86.718 Personal history of other venous thrombosis and embolism; Z87.01 Personal history of pneumonia (recurrent); Z86.73 Personal history of transient ischemic attack (TIA), and cerebral infarction without residual deficits; Z86.16 Personal history of COVID-19; Z79.82 Long term (current) use of aspirin; Z79.899 Other long term (current) drug therapy
CPT/HCPCS: 99281

== ENCOUNTER 2025-06-29 14:18 | Outpatient (CLI) | payer MEDICARE, MEDICAID, SELFPAY ==
[2025-06-29 15:15] LABS: Hematocrit 38.4 % (37.0-47.0); Hemoglobin 12.9 g/dL (12.0-15.0); Immature Granulocyte Percent A 0.2 % (0-0.5); Lymphocytes Absolute Auto 1.91 K/mm3 (0.9-3.2); Mean Corpuscular HGB Conc 33.6 g/dl (32-36); Mean Corpuscular Hemoglobin 34.1 pg (26-34); Mean Corpuscular Volume 101.6 fl (80-100); Nucleated Red Blood Cells Absolute Auto 0.000 K/mm3 (0.0-0.012); Nucleated Red Blood Cells Perc 0.0 % (0.0-0.2); Platelet Count Result 191 k/mm3 (150-375); Red Blood Count 3.78 M/mm3 (4.2-5.4); White Blood Count 5.5 K/mm3 (4.5-10.0)
[2025-06-29 15:28] LABS: Alanine Aminotransferase 20 U/L (6-35); Albumin Level 4.6 g/dL (3.5-5.1); Alkaline Phosphatase 94 U/L (38-126); Anion Gap 5 mmol/L (4-12); Aspartate Amino Transferase 30 U/L (14-36); Bilirubin,Total 0.7 mg/dL (0.2-1.3); Blood Urea Nitrogen 24 mg/dL (7-17); Calcium 9.8 mg/dL (8.4-10.2); Carbon Dioxide 28 mmol/L (22-30); Chloride 107 mmol/L (98-107); Cholesterol 194 mg/dL (0-200); Estimated Glomerular Filt Rate > 60; Glucose 89 mg/dL (65-110); HDL Direct 44 mg/dL; Iron 145 ug/dL (37-170); Magnesium 2.1 mg/dL (1.6-2.3); Potassium 3.9 mmol/L (3.4-5.0); Sodium 140 mmol/L (137-145); Total Protein 8.1 g/dL (6.3-8.2); Triglycerides 225 mg/dL (<150)
[2025-06-29 15:39] LABS: Percent Iron Saturation 45 % (20-50)
[2025-06-29 16:23] LABS: Vitamin B12 370.0 pg/mL (239-931)
[2025-06-30 07:09] LABS: C-Reactive Protein, Cardiac 0.68 mg/L (0.00-3.00)
== END 2025-06-29 14:19 | disposition home or self-care (01) ==
PROVIDERS: PCP Family Medicine; Visit Provider Family Medicine
DX: D50.8 Other iron deficiency anemias (principal); E78.00 Pure hypercholesterolemia, unspecified; E87.6 Hypokalemia; I50.9 Heart failure, unspecified; K86.81 Exocrine pancreatic insufficiency; M06.09 Rheumatoid arthritis without rheumatoid factor, multiple sites; Z13.220 Encounter for screening for lipoid disorders
CPT/HCPCS: 36415; 80048; 80061; 80076; 82607; 83540; 83550; 83735; 85025; 85652; 86141

== ENCOUNTER 2025-07-03 11:49 | Emergency (ER) | payer MEDICARE, MEDICAID, SELFPAY ==
--- NOTE | ~2025-07-03 | CT_ITS ---
EXAMINATION: CTA BRAIN/CAROTID DATE: 07/03/2025 13:23 INDICATION: Unsteady gait TECHNIQUE: Computed tomographic angiography (CTA) of the head and neck was performed with 100 mL Omnipaque-350 intravenous contrast. Multiplanar reconstructions and maximum intensity projection 3D-reconstructions of the carotid arteries and of the intracranial arteries were created by the technologist on a separate workstation. Precontrast CT of the head was also obtained. Automated exposure control and iterative reconstruction technique were employed.The dose-length product was 1752.28 mGy-cm. COMPARISON: 12/16/2024 FINDINGS: Head: No acute intracranial hemorrhage, acute infarction or abnormal extra axial fluid collection. There is mild scattered white matter hypoattenuation consistent with chronic small vessel ischemic disease. Ventricles are normal and symmetric. No mass/mass effect. No abnormally enhancing lesions on the post contrast imaging. The orbits, paranasal sinuses and mastoid air cells are normal. Intracranial arteries Right vertebral artery is dominant. There is no hemodynamically significant stenosis in the vertebral, basilar and internal carotid arteries. Both A1 and P1 segments are patent. There are no aneurysms identified. Cerebral arterial arborization appears symmetric. Carotid arteries: The aortic arch and the great vessels arising from the arch are normal in caliber with no dissection or hemodynamically significant stenosis. There is atherosclerotic plaque with 0% stenosis of the right and left carotid bulbs relative to normal distal artery lumen diameter (NASCET criteria). Right cesar tebral artery is dominant with no hematoma significant stenosis of the extracranial vertebral arteries. Cervical soft tissues are unremarkable. Respiratory motion and mild atelectasis related to expiratory phase of imaging in the visualized upper lungs. Left atrial appendage occlusion device. Atheroscl erotic coronary artery calcifications. Thoracic aorta is normal in caliber. Dual-lead cardiac pacemaker with lead tips at the right atrium and right ventricle on the clerical administrator tomogram. Senior Risk Analyst topogram also demonstrates spinal stimulator lead with with lead tips projecting over the canal the lower thoracic spine. There is an additional right pectoral stimulator device with lead extending cephalad lung the right neck with lead tip at the anterior margin of the right submandibular gland. Senior Risk Analyst topogram also demonstrates a partially visualized instrumented lumbar posterior spinal fusion. IMPRESSION: 1. Small amount of atherosclerotic plaque with 0% stenosis of the right and left carotid bulbs relative to normal distal artery lumen diameter (NASCET criteria). 2. No acute intracranial process. Mild scattered white matter hypoattenuation consistent with chronic small vessel ischemic disease. 3. Unremarkable cerebral CT angiogram with no hemodynamically significant stenosis, aneurysm or thrombosis. Reviewed, dictated and finalized at location A. LE CLEANER IMPRESSION: 1. Small amount of atherosclerotic plaque with 0% stenosis of the right and lef t carotid bulbs relative to normal distal artery lumen diameter (NASCET criteri a). 2. No acute intracranial process. Mild scattered white matter hypoattenuation c onsistent with chronic small vessel ischemic disease. 3. Unremarkable cerebral CT angiogram with no hemodynamically significant steno sis, aneurysm or thrombosis.
[2025-07-03 12:00] VITALS: BP 130/74; PULSE 80; RESP 20; TEMP 36.1; O2SAT 99
[2025-07-03 12:20] VITALS: BP 113/83; PULSE 73; RESP 14; O2SAT 97
--- NOTE | 2025-07-03 12:21 | ECG_ITS ---
Test Date: 2025-07-03 13:00:39 Measurements Intervals [place] Rate: 70 P: 152 CT: 142 QRS: -2 QRSD: 126 T: 30 QT: 442 QTc: 477 Interpretive Statements ELECTRONIC ATRIAL PACEMAKER WITH INHIBITION ELECTRONIC VENTRICULAR PACEMAKER BASELINE ARTIFACT- I, II, III, AVR, AVL, AVF NO FURTHER INTERPRETATION IS POSSIBLE ATYPICAL ECG Compared to ECG 12/16/2024 16:41:49 No significant changes Electronically Signed On 07-03-2025 13:59:53 PAPER SUPERVISOR by Rangel Moe D.O.
[2025-07-03 12:22] VITALS: BP 113/83; PULSE 76; RESP 15; O2SAT 96
--- NOTE | 2025-07-03 12:24 | ED_ITS ---
HPI - Dizziness General Chief Complaint: Dizziness Stated Complaint: dizziness, headache, onset yesterday Time Seen by Provider: 07/03/25 12:06 History of Present Illness HPI Narrative: Pt says she first noticed dizziness and leaning to left when she got up yesterday to go to in the afternoon. Pt says she spent most of day in bed and did not notice dizziness when in bed. POt says today she went to work and again felt dizzy and was leaning to the left when she tried to walk. Pt admits to JACKSON on top of her head. Pt denies visula symptoms. Pt denies numbness says she feels maybe a little weakness in the LLE. Related Data Home Medications ?Medication ?Instructions ?Recorded ?Confirmed ?Last Taken ?Type golimumab 50 mg/0.5 mL 50 mg subcut MONTHLY 3 06/27/25 02/17/25 History subcutaneous pen injector (Simponi) metoprolol tartrate 50 mg tablet 50 mg PO BID 10/22/23 06/27/25 03/07/25 History fexofenadine 180 mg tablet 180 mg PO DAILY 10/14/2403/06/25 History (Vicky Allergy) leflunomide 20 mg tablet 10 mg PO DAILY 11/10/2404/1303/06/25 History aspirin 81 mg tablet 81 mg PO DAILY 06/27/2504/13 Unknown History celecoxib 200 mg capsule (Celebrex) 200 mg PO DAILY 06/27/25 Unknown History Allergies Allergy/AdvReac Type Severity Reaction Status Date / Time meclizine Allergy Severe Rash Verified 07/03/25 12:00 carbamazepine (From Tegretol) Allergy Intermediate Blister Verified 07/03/25 12:00 2-octyl cyanoacrylate Allergy Mild Itching Verified 07/03/25 12:00 Cephalosporins Allergy Mild RASH Verified 07/03/25 12:00 clarithromycin Allergy Mild RASH Verified 07/03/25 12:00 imipramine Allergy Mild RASH Verified 07/03/25 12:00 Penicillins Allergy Mild HIVES Verified 07/03/25 12:00 cefuroxime (From Ceftin) Allergy Hives Verified 07/03/25 12:00 etanercept (From Enbrel) Allergy Redness of Verified 07/03/25 12:00 Skin hydromorphone (From Dilaudid) Allergy Hives Verified 07/03/25 12:00 oxycodone (From Percocet) Allergy Hives Verified 07/03/25 12:00 prochlorperazine (From Allergy Swelling Verified 07/03/25 12:00 Compazine) of Lip/Tongue/Throat propoxyphene (From Darvon) Allergy Hives Verified 07/03/25 12:00 propranolol (From Inderal [place]) Allergy Rash Verified 07/03/25 12:00 alcohol (From Mastisol AdvReac Severe Blister Verified 07/03/25 12:00 Adhesive) chloroxylenol (From Kimball 7) AdvReac Severe rash Verified 07/03/25 12:00 gum mastic (From Mastisol AdvReac Severe Blister Verified 07/03/25 12:00 Adhesive) methyl salicylate (From AdvReac Severe Blister Verified 07/03/25 12:00 Mastisol Adhesive) storax (From Mastisol AdvReac Severe Blister Verified 07/03/25 12:00 Adhesive) tizanidine AdvReac Intermediate Hallucinati Verified 07/03/25 12:00 ng codeine AdvReac Unknown Vomiting Verified 07/03/25 12:00 diphenhydramine (From AdvReac Vomiting Verified 07/03/25 12:00 Benadryl) hydrocodone (From Vicodin) AdvReac Vomiting Verified 07/03/25 12:00 Review of Systems 2 Review of Systems: All systems reviewed & are unremarkable except as noted in HPI and below PMFSH Past Medical History Medical History Knee pain Candidiasis Inflammation of pyloric mucosa Left shoulder pain Bilateral shoulder pain Stomach ulcer Leg edema, right Bilateral leg paresthesia Knee injury Pain of left femur Left thigh pain Coccygeal pain, acute COVID-19 COVID Loss of vision TMJ (temporomandibular joint disorder) Acquired deviated nasal septum Nosebleed Pacemaker Right shoulder pain Witnessed apneic spells Snoring Apnea Chronic GERD Presence of Amulet left atrial appendage closure device Pelvic pain Hematoma of left chest wall Topical med dermatitis Right hand pain Bilateral knee pain Lumbar pain Acute cervical myofascial strain Acute bacterial sinusitis Hypersomnolence Migraine Vomiting DVT (deep venous thrombosis) Flatulence Cervical pain Spasm of lumbar paraspinous muscle MCL sprain of left knee Abrasion of toe Lesion of skin of nose Pneumonia LLQ abdominal pain Knee pain Foreign body in ear BMI 29.0-29.9,adult Lumbar stenosis Foraminal stenosis of lumbar region Pancreatitis Diarrhea Family history of beta thalassemia Inappropriate sinus tachycardia Presence of IVC filter Fibromyalgia Rheumatoid arthritis Anxiety Depression Abnormality of heart beat Ear pain Wears glasses Lightheadedness Vertigo Presence of neurostimulator History of deep vein thrombosis Abdominal bloating Hypoglycemia Allergic reaction to allergy skin test Abdominal lump Anxiety about health Hyponatremia Allergic dermatitis Headache Degenerative joint disease of cervical and lumbar spine TIA (transient ischemic attack) Ataxia A-fib Confusion Atypical face pain D-dimer, elevated Left ear pain Rheumatoid arthritis, seronegative, multiple sites Foreign body of toe Groin pain Groin hematoma Restless leg syndrome Dizziness Lipid disorder Fracture of second toe, left, closed Atopic dermatitis Bradycardia Anemia, unspecified Essential (primary) hypertension Mixed hyperlipidemia Paroxysmal atrial fibrillation RSD (reflex sympathetic dystrophy) SVT (supraventricular tachycardia) Surgical History Surgical History Hx of atrioventricular node ablation History of surgery on left wrist H/O cardiac radiofrequency ablation S/P IVC filter S/P insertion of spinal cord stimulator History of tubal ligation History of endometrial ablation H/O hernia repair Status post surgical removal of both fallopian tubes History of arthroscopic knee surgery History of back surgery History of permanent cardiac pacemaker placement 2019 pacemaker replaced 2023,updated 11/2024 Family History Family History Grandparent Family history of blood dyscrasia Family history of Alzheimer's disease Family history of malignant neoplasm of cervix Mother Family history of Alzheimer's disease Thyroid activity decreased Father Family history of lung cancer Sibling Thyroid activity decreased Other Diabetes mellitus Family history of allergic disorder Family history of kidney disease Family history of malignant neoplasm of thyroid High cholesterol Social History Social History Social History: Caffeine-none Smoking packs per day: 0 Smoking cigarettes per day: 0.0 Years smoked: 0 Smoking pack-years: 0.00 Smoking status: Never smoker Second hand tobacco smoke exposure: No Alcohol intake: never Substance use: never Substance use type: does not use Lack of Transportation: No Lack of Food: Never True Current Housing: I Have Housing Concerned About Future Housing: No Difficulty Paying Gas/Electric Bills: No Difficulty Paying for Meds: No Currently Unemployed: No Education: High School Diploma/GED Difficulty w/ Childcare or Family Care: No Living arrangements: alone Occupation/Education: retired 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 Gender identity (if verbalized by the patient): Female Sexual Orientation (if Verbalized by the Patient): Straight or Heterosexual Spiritual care concerns: No Exam 2 Const: General: healthy appearing and no acute distress Nutritional Appearance: well nourished Orientation/consciousness: patient oriented x3 Limitations: no limitations HENMT: Head: normal to inspection Eyes: Conjunctivae: conjunctivae normal Pupils: Equal, round and reactive pupils present EOM: EOMs intact bilaterally Neck: Neck: normal visual inspection, no lymphadenopathy and no meningeal signs Resp: Effort & Inspection: normal respiratory effort Auscultation: clear to auscultation bilaterally Cardio: Rate: regular rate Rhythm: regular rhythm GI: GI Palp: Yes Soft to palpation and No Tenderness to palpation present (GI) Auscultation: normal bowel sounds Back/Spine/Pelvis: Back: no CVA tenderness Skin: General skin exam: normal color Wounds: no wounds Neuro: General: patient oriented x3, moves all extremities, no meningeal signs, no focal motor deficits and CN's II-XI intact bilaterally Cranial nerves: Yes Nystagmus not present Speech: normal speech Extrem: General: normal to inspection and no clubbing, cyanosis or edema Psych: Mental Status: mental status grossly normal Affect: normal affect Attitude: cooperative Course Vital Signs Vital signs: Vital Signs Temperature 97.0 F L 07/03/25 12:00 Pulse Rate 80 07/03/25 12:00 Respiratory Rate 20 07/03/25 12:00 Blood Pressure 130/74 07/03/25 12:00 Pulse Oximetry 99 07/03/25 12:00 Oxygen Delivery Room Air 07/03/25 12:00 Temperature 97.0 F L 07/03/25 12:00 Pulse Rate 79 07/03/25 13:34 Respiratory Rate 12 07/03/25 13:34 Blood Pressure 122/87 07/03/25 13:34 Pulse Oximetry 99 07/03/25 13:34 Oxygen Delivery Room Air 07/03/25 12:00 [facility] MDM Narrative Medical decision making narrative: will get labs and CT brain and CTA brain and neck and ekg. will reassess. Pt is out of window for any thrombolytic therapy since last known well was yesterday afternoon. cta and lkabs unremarkable. Pt able to ambulate slowly without listing to side. advised to use walker at home for safety. Differential Diagnosis Differential Diagnosis: cva vs vetigo vs gait distrubance. Lab Data 07/03/25 12:31 07/03/25 12:31 Labs: Lab Results 07/03/25 07/03/25 Range/Units 12:23 12:31 WBC 3.9 L (4.5-10.0) K/mm3 RBC 3.67 L (4.2-5.4) M/mm3 Hgb 12.6 (12.0-15.0) g/dL Hct 37.0 (37.0-47.0) % MCV 100.8 H (80-100) fl MCH 34.3 H (26-34) pg MCHC 34.1 (32-36) g/dl RDW 12.5 (11.5-14.5) % Plt Count 177 (150-375) k/mm3 MPV 9.0 (7.4-10.4) fl Immature Gran % (Auto) 0.3 (0-0.5) % Neut % (Auto) 46.1 (45.5-73.1) % Lymph % (Auto) 43.9 (18.3-44.2) % [place] % (Auto) 7.4 (2.6-8.5) % Eos % (Auto) 1.8 (0-4.4) % Baso % (Auto) 0.5 (0.2-1.2) % Lymph # (Auto) 1.72 (0.9-3.2) K/mm3 [place] # (Auto) 0.3 (0.1-0.6) K/mm3 Eos # (Auto) 0.1 (0-0.3) K/mm3 Baso # (Auto) 0.0 (0.0-0.1) K/mm3 Abs Immat Gran (auto) 0.01 (0.00-0.031) K/mm3 Absolute Neuts (auto) 1.8 (1.3-6.7) K/mm3 Absolute Nucleated RBC 0.000 (0.0-0.012) K/mm3 Nucleated RBC % 0.0 (0.0-0.2) % PT 13.4 (11.1-14.7) Seconds INR 1.0 APTT 36.4 (22.3-36.8) Seconds Sodium 138 (137-145) mmol/L Potassium 3.9 (3.4-5.0) mmol/L Chloride 106 (98-107) mmol/L Carbon Dioxide 29 (22-30) mmol/L Anion Gap 3 L (4-12) mmol/L BUN 27 H (7-17) mg/dL Creatinine 0.74 (0.7-1.0) mg/dL Estim Creat Clear Calc 78 ml/min Estimated GFR > 60 (59 - ) Glucose 94 (65-110) mg/dL POC Capillary Glucose 100 (65-105) mg/dl Calcium 9.6 (8.4-10.2) mg/dL Total Bilirubin 0.5 (0.2-1.3) mg/dL AST 31 (14-36) U/L ALT 19 (6-35) U/L Alkaline Phosphatase 80 (38-126) U/L Total Protein 7.6 (6.3-8.2) g/dL Albumin 4.3 (3.5-5.1) g/dL Imaging Data Radiologist's impression: ITS Impressions Head/Neck CTA 07/03/25 13:25 IMPRESSION: 1. Small amount of atherosclerotic plaque with 0% stenosis of the right and left carotid bulbs relative to normal distal artery lumen diameter (NASCET criteria). 2. No acute intracranial process. Mild scattered white matter hypoattenuation consistent with chronic small vessel ischemic disease. 3. Unremarkable cerebral CT angiogram with no hemodynamically significant stenosis, aneurysm or thrombosis. Discharge Plan Discharge Clinical Impression: Unsteady gait Patient Disposition: Home Condition: Improved Instructions: Antibiotic Form, Dizziness (ED) Patient Language: Swedish Prescriptions: No Action promethazine [Promethegan] 25 mg suppository 25 mg RECTAL Q6H PRN (Reason: nausea and vomiting) Qty: 12 1RF metoprolol tartrate 50 mg tablet 50 mg PO BID nystatin 100,000 unit/gram ointment 1 applic topical BID Qty: 30 1RF Patient Comments: TAKES PRN Simponi 50 mg/0.5 mL pen injector 50 mg SUBCUT MONTHLY Patient Comments: TAKES ON THE 1ST DAY OF THE MONTH Rx Instructions: pt will not restart till 2 weeks post procedure pramipexole 1 mg tablet 1 mg PO BID Qty: 180 1RF Patient Comments: TAKES FOR RLS leflunomide 20 mg tablet 10 mg PO DAILY pantoprazole 40 mg tablet,delayed release (DR/EC) 40 mg PO BID Qty: 1 0RF hydroxyzine HCl 25 mg tablet 25 mg PO Q8H Qty: 180 3RF celecoxib [Celebrex] 200 mg capsule 200 mg PO DAILY aspirin 81 mg tablet 81 mg PO DAILY epinephrine [EpiPen 2-Ranulfo] 0.3 mg/0.3 mL auto-injector 0.3 mg IM ONCE PRN (Reason: Allergic Reaction) Qty: 2 0RF Rx Instructions: as a single dose; may repeat once morphine 15 mg tablet 15 mg PO Q4H PRN (Reason: pain) Qty: 42 0RF duloxetine 30 mg capsule,delayed release(DR/EC) 30 mg PO .COMPLEX Qty: 90 1RF Rx Instructions: 30 mg orally At bedtime; triamcinolone acetonide 0.1 % lotion 1 applic topical DAILY Qty: 60 0RF lidocaine 5 % adhesive patch,medicated 1 patch topical DAILY Qty: 15 0RF Rx Instructions: leave on most painful area for up to 12 hrs ondansetron 4 mg tablet,disintegrating 4 mg PO Q6H PRN (Reason: nausea and vomiting) Qty: 10 0RF albuterol sulfate [ProAir HFA] 90 mcg/actuation HFA aerosol inhaler 1 inh inhalation Q4H PRN (Reason: shortness of breath or wheezing) Qty: 6.7 3RF fexofenadine [Vicky Allergy] 180 mg tablet 180 mg PO DAILY sucralfate [Carafate] 1 gram tablet 1 g PO BID Qty: 60 1RF Patient Comments: TAKES PRN nitroglycerin [Nitrostat] 0.4 mg tablet, sublingual 0.4 mg sublingual Q5MIN PRN (Reason: Chest Pain) Qty: 25 0RF triamcinolone acetonide 0.5 % cream 1 applic topical DAILY Qty: 22 0RF montelukast [Singulair] 10 mg tablet 10 mg PO DAILY Qty: 90 2RF Patient Comments: QAM rosuvastatin 40 mg tablet 40 mg PO DAILY Qty: 90 2RF ropinirole 1 mg tablet 1 mg PO TID Qty: 270 1RF duloxetine [Cymbalta] 60 mg capsule,delayed release(DR/EC) 60 mg PO HS Qty: 90 1RF Follow-up/Referrals: Tom Paz MD [Primary Care Provider, Family Practice]
[2025-07-03 12:37] LABS: Hematocrit 37.0 % (37.0-47.0); Hemoglobin 12.6 g/dL (12.0-15.0); Immature Granulocyte Percent A 0.3 % (0-0.5); Lymphocytes Absolute Auto 1.72 K/mm3 (0.9-3.2); Mean Corpuscular HGB Conc 34.1 g/dl (32-36); Mean Corpuscular Hemoglobin 34.3 pg (26-34); Mean Corpuscular Volume 100.8 fl (80-100); Nucleated Red Blood Cells Absolute Auto 0.000 K/mm3 (0.0-0.012); Nucleated Red Blood Cells Perc 0.0 % (0.0-0.2); Platelet Count Result 177 k/mm3 (150-375); Red Blood Count 3.67 M/mm3 (4.2-5.4); White Blood Count 3.9 K/mm3 (4.5-10.0)
[2025-07-03 12:48] LABS: Alanine Aminotransferase 19 U/L (6-35); Albumin Level 4.3 g/dL (3.5-5.1); Alkaline Phosphatase 80 U/L (38-126); Anion Gap 3 mmol/L (4-12); Aspartate Amino Transferase 31 U/L (14-36); Bilirubin,Total 0.5 mg/dL (0.2-1.3); Blood Urea Nitrogen 27 mg/dL (7-17); Calcium 9.6 mg/dL (8.4-10.2); Carbon Dioxide 29 mmol/L (22-30); Chloride 106 mmol/L (98-107); Estimated CRCL calculation 78 ml/min; Estimated Glomerular Filt Rate > 60; Glucose 94 mg/dL (65-110); Potassium 3.9 mmol/L (3.4-5.0); Sodium 138 mmol/L (137-145); Total Protein 7.6 g/dL (6.3-8.2)
[2025-07-03 13:00] LABS: INR 1.0; Prothrombin Time 13.4 Seconds (11.1-14.7)
[2025-07-03 13:01] LABS: Partial Thromboplastin Time 36.4 Seconds (22.3-36.8)
[2025-07-03 13:34] VITALS: BP 122/87; PULSE 79; RESP 12; O2SAT 99
== END 2025-07-03 14:58 | disposition home or self-care (01) ==
PROVIDERS: Emergency Provider Emergency Medicine; PCP Family Medicine
DX: R26.9 Unspecified abnormalities of gait and mobility (principal); Z95.0 Presence of cardiac pacemaker; K21.9 Gastro-esophageal reflux disease without esophagitis; Z86.718 Personal history of other venous thrombosis and embolism; F41.9 Anxiety disorder, unspecified; F32.A Depression, unspecified; M79.7 Fibromyalgia; I10 Essential (primary) hypertension
CPT/HCPCS: 36415; 70496; 70498; 80053; 82948; 85025; 85610; 85730; 93005; 99284; Q9967